=== PATIENT | female | born 1975 | race Caucasian/White ===

== ENCOUNTER 2023-02-15 08:49 | Outpatient (RCR) | payer OTHER, SELFPAY | END 2023-02-24 10:19 | disposition home or self-care (01) | LOC: PT 08:49 | DX: R20.2 Paresthesia of skin (principal); M54.2 Cervicalgia | CPT/HCPCS: 97010; 97014; 97032; 97110; 97140; G0283 ==

== ENCOUNTER 2023-02-26 14:01 | Outpatient (OUT) | payer OTHER, SELFPAY ==
--- NOTE | 2023-02-26 14:36 | ECG_ITS ---
The [facility] Test Date: 2023-02-26 Pat Name: Katy Flores Department: Room: - Gender: Female Director Business Travel: : 1975 Requested By: FERNANDA CONCEPCION Order Number: [id number] Reading MD: EMILY MAY Measurements Intervals [place] Rate: 84 P: 75 DC: 139 QRS: 84 QRSD: 90 T: 63 QT: 365 QTc: 432 Interpretive Statements SINUS RHYTHM No previous ECG available for comparison Electronically Signed On 02-27-2023 6:32:54 EDT by EMILY MAY
--- NOTE | 2023-02-26 14:48 | XR_ITS ---
The [place] [id number] Patient Name: MARKO BANUELOS MRN: [id number] date: 1975 Sex: F Assigned Patient Location: CARD Current Patient Location: CARD Accession/Order Number: [id number] Exam Date: 02/26/2023 14:58 Report Date: 02/26/2023 15:20 At the request of: FERNANDA CONCEPCION Procedure: XR chest 2V EXAM: XR chest 2V HISTORY: Chest pain, and the right axillary pain for the past one and half weeks radiating distally. COMPARISON: 09/28/2022 TECHNIQUE: Upright PA and lateral chest x-ray FINDINGS: The heart is not enlarged and the vasculature is not distended. No acute infiltrate, effusion or pneumothorax is identified. Slight flattening of the hemidiaphragms suggest COPD. The osseous structures are grossly intact. IMPRESSION: No acute infiltrate or evidence of cardiac decompensation. The overall appearance of the chest has not changed significantly. Electronically authenticated by: GIGI SARMIENTO Date: 02/26/2023 15:20
== END 2023-02-26 14:02 ==
LOC: CARD 14:02
PROVIDERS: PCP Family Medicine; Visit Provider Family Medicine
DX: R07.9 Chest pain, unspecified (principal)
CPT/HCPCS: 71046; 93005

== ENCOUNTER 2023-12-19 09:47 | Outpatient (OUT) | payer OTHER, SELFPAY ==
--- NOTE | 2023-12-19 | XR_ITS ---
The [address] [address] Patient Name: MARKO BANUELOS MRN: [id number] date: 1975 Sex: F Assigned Patient Location: Current Patient Location: Accession/Order Number: [id number] Exam Date: 12/19/2023 09:50 Report Date: 12/20/2023 06:55 At the request of: WANDA ANDERSON Procedure: XR foot RT min 3V PROCEDURE: XR foot RT min 3V HISTORY: RIGHT HEEL PAIN COMPARISON: XR foot bilateral 12/14/2022 FINDINGS: BONES:No fracture, acute abnormality, or significant arthropathy. SOFT TISSUES:No visible soft tissue swelling. EFFUSION:None visible. OTHER: Negative. XR/XR foot RT min 3V IMPRESSION: 1. No suspicious findings to account for patient's symptoms. Electronically authenticated by: LOBO OHARA Date: 12/20/2023 06:55
== END 2023-12-19 09:48 | disposition home or self-care (01) ==
LOC: EC 09:47
PROVIDERS: PCP Family Medicine; Visit Provider Podiatrist Foot & Ankle Surgery
DX: M79.671 Pain in right foot (principal)
CPT/HCPCS: 73630

== ENCOUNTER 2023-12-20 14:56 | Emergency (ER) | payer OTHER, SELFPAY ==
[2023-12-20 15:22] VITALS: BP 154/78; PULSE 89; TEMP 36.8; O2SAT 99; BMI 18.9
--- NOTE | 2023-12-20 15:59 | CT_ITS ---
The [address] [address] Patient Name: MARKO BANUELOS MRN: [id number] date: 1975 Sex: F Assigned Patient Location: ER Current Patient Location: Accession/Order Number: [id number] Exam Date: 12/20/2023 16:20 Report Date: 12/20/2023 16:58 At the request of: ANI TRAN Procedure: CT facial bones w con EXAM: CT facial bones w con TECHNIQUE: Axial CT images were obtained through the facial bones following intravenous contrast administration. Sagittal and coronal reformatted images were obtained. Dose reduction techniques were achieved by using automated exposure control and/or adjustment of mA and/or kV according to patient size and/or use of iterative reconstruction technique. HISTORY: left maxillary pain COMPARISON: None. FINDINGS: Fracture: None Orbits: Globes are intact. Extraocular musculature is unremarkable and symmetric. There is no retrobulbar inflammation or abscess. Soft tissues: unremarkable. Sinuses: Clear. CT/CT facial bones w con IMPRESSION: No acute findings. No significant soft tissue inflammation. No evidence for abscess. Electronically authenticated by: KARINA VÁZQUEZ Date: 12/20/2023 16:58
--- NOTE | 2023-12-20 15:59 | ED_ITS ---
HPI HPI - General Adult General Chief complaint: Eye Problems Stated complaint: poss infection eye area Time Seen by Provider: 12/20/23 15:52 Source: patient Mode of arrival: walk-in Limitations: no limitations History of Present Illness HPI narrative: Patient is a 48-year-old female who presents to the emergency department for left-sided facial pain for the last 3 days. She had oral surgery for a revision of her root canal a [facility] 2 weeks ago. She followed up with her doctor 3 days ago and was found to have an abscess of the left mandible which is currently being treated with amoxicillin 3 times daily. She states she has had an increase in Left maxillary sinus pain and eye pain. She has had no fevers, drainage, visual loss. She saw her eye doctor today who is confident that the issue is not due to her eye but discussed the case with her PCP and they agreed that the patient should have a CT of the sinuses and referred her to the emergency department. She has had no vomiting, injuries. She states she feels as though the face is swollen. Related Data Home Medications ?Medication ?Instructions ?Recorded ?Confirmed acyclovir 400 mg tablet mg 12/20/23 amoxicillin 500 mg capsule 500 mg PO Q8H 12/20/23 12/20/23 omeprazole 20 mg capsule,delayed 20 mg PO QDAY 12/20/23 12/20/23 release Previous Rx's ?Medication ?Instructions ?Recorded ketorolac 10 mg tablet 10 mg PO TID PRN pain #10 tabs 12/20/23 Allergies Allergy/AdvReac Type Severity Reaction Status Date / Time No Known Drug Allergies Allergy Verified 12/20/23 15:21 Opioid HPI Opioid Management Most Recent Opioid Data: No Data to Display Review of Systems ROS Constitutional Denies: fever or chills Eyes Denies: change in vision Ears, nose, mouth, and throat Denies: throat pain or nasal congestion Respiratory Denies: shortness of breath or cough Gastrointestinal Denies: nausea or vomiting Genitourinary Denies: painful urination Musculoskeletal Denies: back pain Integumentary/Breast Denies: rash Neurological Denies: headache Hematologic/Lymphatic Denies: easy bruising or easy bleeding Exam Narrative Exam Narrative: Gen.: Awake, alert, in no distress Head: Normocephalic, atraumatic; Normal extraocular muscle motion, No periorbital edema or erythema ENT: Moist mucous membranes, Bilateral TMs are clear, no facial swelling appreciated. Tenderness of the left mandible without swelling, no redness under the tongue. Airway widely open and patent. No trismus or drooling. Respiratory: No respiratory distress Extremities: Moves extremities equally Psych: Normal mood and affect Neuro: No focal neuro deficit Skin: Warm, dry, intact Constitutional Vital Signs, click to edit/add: Last Vital Signs Temp 98.2 F 12/20/23 15:22 Pulse 89 12/20/23 15:22 Resp 14 12/20/23 15:22 BP 154/78 H 12/20/23 15:22 Pulse Ox 99 12/20/23 15:22 O2 Del Method Room Air 12/20/23 15:22 Course Vital Signs Vital signs: Vital Signs Temperature 98.2 F 12/20/23 15:22 Pulse Rate 89 12/20/23 15:22 Respiratory Rate 14 12/20/23 15:22 Blood Pressure 154/78 H 12/20/23 15:22 Pulse Oximetry 99 12/20/23 15:22 Oxygen Delivery Method Room Air 12/20/23 15:22 Temperature 98.2 F 12/20/23 15:22 Pulse Rate 89 12/20/23 15:22 Respiratory Rate 14 12/20/23 15:22 Blood Pressure 154/78 H 12/20/23 15:22 Pulse Oximetry 99 12/20/23 15:22 Oxygen Delivery Method Room Air 12/20/23 15:22 Medical Decision Making MDM Narrative Medical decision making narrative: CT of the facial bones with contrast reviewed by the radiologist with no evidence of acute process. Patient was given a copy of these results. She is given a short course of anti-inflammatories and encouraged to finish the antibiotic she was prescribed earlier this week. Follow-up with PCP and return to the ER if symptoms change or worsen Medical Records Medical records reviewed: Yes I reviewed the patient's medical records Imaging Data CT scan - head: Attestation: I have reviewed the pertinent imaging results. Radiologist's impression: ITS Impressions Facial Bones CT 12/20/23 15:59 IMPRESSION: No acute findings. No significant soft tissue inflammation. No evidence for abscess. Electronically authenticated by: KARINA VÁZQUEZ Date: 12/20/2023 16:58 Discharge Plan Discharge Stand Alone Forms: Portal Instructions Chief Complaint: Eye Problems Clinical Impression: Atypical face pain Patient Disposition: Home, Self-Care Time of Disposition Decision: 17:07 Condition: Good Prescriptions / Home Meds: New ketorolac 10 mg tablet 10 mg PO TID PRN (Reason: pain) Qty: 10 0RF No Action acyclovir 400 mg tablet omeprazole 20 mg capsule,delayed release(DR/EC) 20 mg PO QDAY amoxicillin 500 mg capsule 500 mg PO Q8H Print Language: German Instructions: Atypical Facial Pain (ED) Referrals: Leanne Stanford MD [Primary Care Provider] - As soon as possible
--- NOTE | 2023-12-20 16:12 | PC.NURSE ---
pt had dental surgery 1 week ago -- dx with dental infection, prescribed ATBs. Having L eye pain
== END 2023-12-20 17:18 | disposition home or self-care (01) ==
PROVIDERS: Emergency Provider Emergency Medicine Emergency Medical Services; PCP Family Medicine
DX: G50.1 Atypical facial pain (principal); Z98.890 Other specified postprocedural states; M27.2 Inflammatory conditions of jaws
CPT/HCPCS: 70487; 99284; Q9966

== ENCOUNTER 2024-01-23 13:39 | Emergency (ER) | payer OTHER, SELFPAY ==
[2024-01-23 13:53] VITALS: BP 122/86; PULSE 84; TEMP 36.7; O2SAT 100; BMI 19.0
--- NOTE | 2024-01-23 14:58 | ED.GENADUL1 ---
HPI HPI - General Adult General Chief complaint: Dental/Oral Stated complaint: FACIAL PAIN Time Seen by Provider: 01/23/24 14:53 Source: patient Mode of arrival: walk-in Limitations: no limitations History of Present Illness HPI narrative: Patient presents ED complaining of left upper dental pain. She had a root canal done a couple of weeks ago and was doing well however the past couple of days she developed increasing pain. She is not on an antibiotic at this time. She feels like there is a bulge at the top of her molar and it is very tender. Is causing facial pain. No drooling no trismus no fevers. Related Data Home Medications ?Medication ?Instructions ?Recorded ?Confirmed acyclovir 400 mg tablet mg 12/20/23 amoxicillin 500 mg capsule 500 mg PO Q8H 12/20/23 12/20/23 omeprazole 20 mg capsule,delayed 20 mg PO QDAY 12/20/23 12/20/23 release Previous Rx's ?Medication ?Instructions ?Recorded ketorolac 10 mg tablet 10 mg PO TID PRN pain #10 tabs 12/20/23 oxycodone-acetaminophen 5 mg-325 1 tab PO Q6H #10 tabs 01/23/24 mg tablet (Percocet) penicillin V potassium 500 mg 500 mg PO Q6H 10 days #40 tabs 01/23/24 tablet Allergies Allergy/AdvReac Type Severity Reaction Status Date / Time No Known Drug Allergies Allergy Verified 12/20/23 15:21 Opioid HPI Opioid Management Most Recent Opioid Data: No Data to Display Review of Systems ROS Status of ROS 10 or more systems reviewed and unremarkable except as noted in history and below Exam Narrative Exam Narrative: General: alert, no acute distress Cardiovascular: regular rate and rhythm, normal peripheral perfusion. Respiratory: Lungs CTA, respirations non labored. Extremities: no deformity, no trauma. Neurological: oriented x 4, LOC appropriate for age. Tenderness to palpation above the left upper molars with mild swelling and redness to the gum. No trismus no drooling no tongue elevation Constitutional Vital Signs, click to edit/add: Last Vital Signs Temp 98.1 F 01/23/24 13:53 Pulse 84 01/23/24 13:53 Resp 20 01/23/24 13:53 BP 122/86 01/23/24 13:53 Pulse Ox 100 01/23/24 13:53 O2 Del Method Room Air 01/23/24 13:53 Course Vital Signs Vital signs: Vital Signs Temperature 98.1 F 01/23/24 13:53 Pulse Rate 84 01/23/24 13:53 Respiratory Rate 20 01/23/24 13:53 Blood Pressure 122/86 01/23/24 13:53 Pulse Oximetry 100 01/23/24 13:53 Oxygen Delivery Method Room Air 01/23/24 13:53 Temperature 98.1 F 01/23/24 13:53 Pulse Rate 84 01/23/24 13:53 Respiratory Rate 20 01/23/24 13:53 Blood Pressure 122/86 01/23/24 13:53 Pulse Oximetry 100 01/23/24 13:53 Oxygen Delivery Method Room Air 01/23/24 13:53 Medical Decision Making MDM Narrative Medical decision making narrative: Patient will be started on antibiotics For gum swelling with pain. Patient was given topical numbing here in ED for the pain. She drove herself here so I will send a prescription to her pharmacy for pain. Continue to follow-up with your dentist. Return to ED if anything worsens. Patient expressed understanding of care plan for home Differential Diagnosis Differential Diagnosis: Dental abscess, dental caries, Medical Records Medical records reviewed: Yes I reviewed the patient's medical records Discharge Plan Discharge Stand Alone Forms: Portal Instructions Chief Complaint: Dental/Oral Clinical Impression: Toothache, Dental abscess Patient Disposition: Home, Self-Care Time of Disposition Decision: 15:01 Mode of Transportation: Private Vehicle Prescriptions / Home Meds: New penicillin V potassium 500 mg tablet 500 mg PO Q6H 10 Days Qty: 40 0RF oxycodone-acetaminophen [Percocet] 5-325 mg tablet 1 tab PO Q6H Qty: 10 0RF No Action acyclovir 400 mg tablet omeprazole 20 mg capsule,delayed release(DR/EC) 20 mg PO QDAY amoxicillin 500 mg capsule 500 mg PO Q8H ketorolac 10 mg tablet 10 mg PO TID PRN (Reason: pain) Qty: 10 0RF Print Language: Kittitian Instructions: Dental Abscess (ED), Toothache (ED) Referrals: Leanne Stanford MD [Primary Care Provider] - 1 week
[2024-01-23] MEDS: BENZOCAINE 30 ML, lidocaine HCL 15 ML MM (15:35)
[2024-01-23 15:39] VITALS: PULSE 83; O2SAT 99
== END 2024-01-23 15:40 | disposition home or self-care (01) ==
PROVIDERS: Emergency Provider Emergency Medicine; PCP Family Medicine
DX: K04.7 Periapical abscess without sinus (principal); K08.89 Other specified disorders of teeth and supporting structures; Z79.899 Other long term (current) drug therapy
CPT/HCPCS: 99283

== ENCOUNTER 2024-11-10 10:45 | Outpatient (OUT) | payer OTHER, SELFPAY ==
[2024-11-10 14:26] LABS: Free T4 0.92 ng/dL (0.76-1.46)
[2024-11-11 15:08] LABS: Thyroglobulin Antibody <1.0 IU/mL (0.0-0.9); Thyroid Peroxidase (TPO) Ab 10 IU/mL (0-34)
== END 2024-11-10 10:46 | disposition home or self-care (01) ==
LOC: LAB 10:55
PROVIDERS: PCP Family Medicine; Visit Provider Family Medicine
DX: Q15.9 Congenital malformation of eye, unspecified (principal)
CPT/HCPCS: 36415; 84439; 84443; 86041; 86042; 86376; 86800

== ENCOUNTER 2025-03-10 10:49 | Outpatient (OUT) | payer OTHER, SELFPAY ==
--- OUTSIDE RECORDS SUMMARY | 2015-02-09 09:26 | XMS_ITS | Continuity of Care Document ---
Author Organization [facility] Address [address] [place] [address] Phone Care Team Providers Care District Administrator Name Role Phone Rubén Janell FLYNN Unavailable [...] Diagnoses Date Provider Providers Copied on Encounter [facility], [address] [place], [place], [id number] , [place] tel: [phone] [facility] No Information 5 [facility] Janell. [address] [place] [address], [id number] , [place]. tel: [phone] OFFICE/OUTPA TIENT VISIT, [facility], [address], [place], [id number] , [place] tel: [phone] [facility] annual visit (chief complaint) control-OC P (chief complaint) Medication Refill (chief complaint) Gynecological ExaminationOther specified contraceptive managementGenital herpes, unspecified 4 [facility] Janell. [address], [place], [id number] , [place]. tel: [phone] OFFICE/OUTPA TIENT VISIT, [facility], [address] [place] [address], [id number] , [place] tel: [phone] [facility] supply visit/ pills (chief complaint) Surveillance of other contraceptive methodOther specified contraceptive managementGeneral counseling on prescription of oral contraceptives 3 Alpesh Taveras. [address] [place] [address], [id number], [place]. tel: [phone] OFFICE/OUTPA TIENT VISIT, [facility], [address] [place] [address], [id number] , [place] tel: [phone] [facility] update (chief complaint) Gynecological ExaminationSurveillan ce of contraceptive pill 3 Jeanne Foster. [address] [place] [address], [id number] , [place]. tel: [phone] OFFICE/OUTPA TIENT VISIT, [facility], [address] [place] [address], [id number] , [place] tel: [phone] [facility] No Information 2 Jeanne Foster. [address] [place], [place], [id number] , [place]. tel: [phone] PREV VISIT, NEW, AGE 18-39 [facility], [address] [place], [place], [id number] , [place] tel: [phone] [facility] No Information 2 Jeanne Foster. [address], [place], [id number] , [place]. tel: [phone] Family History Family Member Type Diagnosis Age At Onset Father Problem (finding) Alive and well Father Problem (finding) stroke Mother Problem (finding) Alive and well Father Problem (finding) alzheimer's disease Father Problem (finding) malignant neoplasm of u [facility] bladder Father Problem (finding) hypertension Problem (finding) Family history of Heart disease Father Problem (finding) prostate cancer Father Problem (finding) diabetes melli tus in first degree relative Problem (finding) Payers Payer name Insurance type Covered republican ID Authoriza tion(s) No Information Social History [...]
--- OUTSIDE RECORDS SUMMARY | 2025-02-25 04:36 | XMS_ITS | Continuity of Care Document ---
Author Organization [facility] Address [address] [place] [address] Phone Care Team Providers Care Physician Support Coordinator Name Role Phone Leanne Stanford MD Primary Care Provider Marta Hernandez DO Attending Provider Care Teams Patient Care Team Team Status: Active Member Role Status Dates Leanne Stanford MD Primary Care Provider Active Visit Care Team Team Status: Inactive Member Role Status Dates Leanne Stanford MD Primary Care Provide r, Attending Provider Active Start: December 11, 2024 End: December 11, 2024 Visit Care Team Team Status: Inactive Member Role Status Dates Leanne Stanford MD Primary Care Provider Active Start: December 26, 2024 End: December 26, 2024 Destiny Rodriguez MD Attending Provider Active Start: December 26, 2024 End: December 26, 2024 Visit Care Team Team Status: Inactive Member Role Status Dates Leanne Stanford MD Primary Care Provider Active Start: January 27, 2025 End: January 27, 2025 Marta David , DO Attending Provider Active Sta rt: January 27, 2025 End: January 27, 2025 Visit Care Team Team Status: Inactive Member Role Status Dates Leanne Stanford MD Primary Care Provider Active Start: February 06, 2025 End: February 06, 2025 JIL aMry Attending Provider Active Start: February 06, 2025 End: February 06, 2025 Stevan Esteves MD Referring Provider Active St art: February 06, 2025 Patient Care Team Team Status: Inactive Member Role Status Dates Leanne Stanford MD Primary Care Provide r, Referring Provider Active Start: February 25, 2025 End: February 25, 2025 Tad Zapata MD Attending Provider Active Sta rt: February 25, 2025 End: February 25, 2025 Chief Complaint and Reason for Visit Chief Complaint Admit Date refills December 11, 2024 10: 01am 6 WEEKS December 26, 2024 9:4 0am J44.9 January 27, 2025 11:48 am Follow Up 6 Months February 06, 2025 8:56a m Pain in thoracic spine-OTHER CHRONIC BRANDO N February 25, 2025 7:59am Reason for Visit Admit Date Back pain, thoracic December 11, 2024 10: 01am Eye abnormalities December 11, 2024 10: 01am Insomnia, persistent December 11, 2024 10 :01am Menopausal flushing December 11, 2024 10: 01am TMJ (dislocation of temporomandibular tsering int) December 11, 2024 10:01am Arthritis of carpometacarpal (CMC) joint of right thumb December 26, 2024 9:40am Arthritis of right hand December 26, 2024 9:40am De Quervain's tenosynovitis, right December 26, 2024 9:40am Right wrist pain December 26, 2024 9:4 0am Toe pain, left December 26, 2024 9:4 0am Blood donor February 06, 2025 8:56a m History of menorrhagia February 06, 2025 8: 56am Iron deficiency anemia February 06, 2025 8: 56am Back pain, thoracic February 25, 2025 7:59 am Chronic pain February 25, 2025 7:59 am Myalgia Analy 11th, 2025 7:59 am Allergies, Adverse Reactions, Alerts No known allergies Social History Smoking Status Status Start Date End Date Date of Observa tion Smoker (finding) August 10:00am Observation Status Observation Response Date of Response Patient Sex Female February 25, 2025 8:36am Assigned Sex Female January 25 Family History Relationship Condition Age at Onset Recorded Date/T lisa father Malignant neoplasm of prostate Unknown Hypertension Unknown Cerebrovascular accident (CVA) Unknown Malignant neoplasm of urinary bladder Unk nown Unknown grandparent Leukemia Unknown Problems Active Problems Medical Problem Onset Date Status Right hand pain Active Toe pain, left Active De Quervain's tenosynovitis, right Active Acute maxillary sinusitis, unspecified July 19, 2018 Active Myalgia Active Eye pain Active Chronic pain Active Adult celiac disease Active Blood donor Active Anxiety Active Raynauds disease Active Wellness examination Active Restless leg syndrome Active Bloating Active TMJ (dislocation of temporomandibular joint) Active Iron deficiency anemia Active History of menorrhagia Active Right wrist pain Active Eye abnormalities Active Back pain, thoracic Active Abdominal pain Active Arthritis of carpometacarpal (CMC) joint of righ t thumb Active Insomnia, persistent Active Arthritis of right hand Active Injury of thumb, right Active Menopausal flushing Active Iron deficiency Active Medications Medication Status Dose Units Route Directions Qty Days St art Date Stop Date End Date Instructions Tramadol 50 mg tablet Discont inued 50 MG PO Three times daily as needed for pain 90 30 November 16, 2023 3:29pm January 10, 2024 2:11p m Alprazolam 1 mg tablet Discont inued 1 MG PO Daily at bedtime as needed for sleep January 07, 2024 4:35pm February 20, 2024 8:33a m teepee splint right thumb Discont inued 0 .Route .MEDSUPPLY January 08, 2024 4:12pm January 10, 2024 2:21p m As directed Doxycycline Hyclate 100 mg tablet Discont inued 100 MG PO Twice daily February 08, 2024 12:00a m February 19, 2024 10:15 am Alprazolam 1 mg tablet Discont inued 1 MG PO Daily at bedtime as needed for sleep February 20, 2024 8:33am March 19, 2024 12:19 pm Omeprazole 40 mg capsule,remigio yed release(DR/E C) Active 40 MG PO Once 30 March 07, 2024 12:00a m Alprazolam 1 mg tablet Discont inued 1 MG PO Daily at bedtime as needed for sleep 30 March 19, 2024 12:19p m April 01, 2024 9:16a m Tramadol 50 mg tablet Discont inued 50 MG PO Three times daily as needed for pain 90 March 21, 2024 3:49pm Decem star 2023 2:19p m Alprazolam 1 mg tablet Discont inued 1 MG PO Twice daily as needed for sleep 40 May 16, 2024 9:54pm Octob er 2023 8:34a m Alprazolam 1 mg tablet Discont inued 1 MG PO Twice daily as needed for sleep 40 Octobe r 2023 8:34am Novem star 2023 6:52a m Alprazolam 1 mg tablet Discont inued 1 MG PO Twice daily as needed for anxiety 40 30 [facility] 2023 11:06p m [facility] 2024 11:10 am Ibuprofen 800 mg tablet Active 0 .ROUTE .COMPLEX 90 [facility] er 2023 9:10am TAKE 1 TABLET BY MOUTH EVERY 8 HOURS NEEDED FOR PAIN Tramadol 50 mg tablet Discont inued 50 MG PO Twice daily as needed for pain 60 30 [facility] er 2023 2:19pm [facility] 2024 3:10p m Alprazolam 1 mg tablet Discont inued 1 MG PO Twice daily as needed for anxiety 40 Sepuar y 2024 11:10a m [facility] 2024 9:54a m Prazosin 5 mg capsule Discont inued 0 .ROUTE .COMPLEX 30 Sepuar y 2024 1:11pm December 11, 2024 10:08 am TAKE 1 CAPSULE BY MOUTH IN THE EVENING Alprazolam 1 mg tablet Discont inued 1 MG PO Twice daily as needed for anxiety [address] [facility] 9:54[facility] November 20, 2024 2:01p m Tramadol 50 mg tablet Discont inued 50 MG PO Twice daily as needed for pain [address] [facility] 3:10[facility] November 26, 2024 12:34 pm Alprazolam 1 mg tablet Discont inued 1 MG PO Twice daily as needed for anxiety 40 November 20, 2024 2:00pm December 11, 2024 11:04 am Tramadol 50 mg tablet Discont inued 50 MG PO Twice daily as needed for pain 14 7 November 26, 2024 12:33p m December 11, 2024 11:04 am Tramadol 50 mg tablet Discont inued 50 MG PO Twice daily as needed for pain 50 January 20, 2025 2:24pm February 23, 2025 10:03 am Alprazolam 1 mg tablet Discont inued 1 MG PO Twice daily as needed for anxiety 40 January 20, 2025 2:24pm February 23, 2025 10:03 am Alprazolam 1 mg tablet Discont inued 1 MG PO Twice daily as needed for anxiety 40 February 23, 2025 10:03a m February 23, 2025 10:04 am Tramadol 50 mg tablet Active 50 MG PO Twice daily as needed for pain 50 February 23, 2025 10:03a m Alprazolam 1 mg tablet Active 1 MG PO Twice daily as needed for anxiety 40 February 23, 2025 10:03a m Multivitamin (Multiple Vitamin) Tablet Discont inued 1 TAB PO Daily Octobe r 2021 12:00a m December 10, 2023 10:28 am Folic Acid 1 mg Tablet Active 1 MG PO Daily Octobe r 2021 12:00a m Polysacchari de Iron Complex (Pro Fe) 180 mg iron Capsule Discont inued 180 MG PO Daily Octobe r 2021 12:00a m Sepua ry 2022 12:27 pm Benzonatate 100 mg Capsule Discont inued 100 MG PO Three times daily Novemb er 2021 12:00a m December 10, 2023 10:38 am Cholecalcife rol (Vitamin D3) (Vitamin D3) 25 mcg (1,000 unit) Capsule Active 25 MCG PO Daily Novemb er 2021 12:00a m Vitamin N29-Mxaoi Acid 0.5-1 mg Tablet Active 1 TAB PO Daily Novemb er 2021 12:00a m Polysacchari de Iron Complex (Pro Fe) 180 mg iron Capsule Active 180 MG PO Daily y 2022 1:00am Norgestimate -Ethinyl Estradiol (Sprintec (28)) 0.25-35 mg-mcg tablet Discont inued 1 TAB PO As Directed April 04, 2019 12:00a m 2021 10:48 am Cetirizine 10 mg tablet Discont inued 10 MG PO Daily April 04, 2019 12:00a m December 10, 2023 10:27 am Alprazolam 1 mg tablet Discont inued 1 MG PO Bedtime April 04, 2019 12:00a m December 10, 2023 1:03p m Acyclovir 200 mg capsule Discont inued 200 MG PO Daily April 04, 2019 12:00a m January 10, 2024 2:12p m Tramadol 50 mg tablet Discont inued 50 MG PO Daily April 04, 2019 12:00a m 2021 10:49 am Omeprazole 20 mg capsule,remigio yed release(DR/E C) Discont inued 20 MG PO Daily April 04, 2019 12:00a m March 07, 2024 8:18a m Ibuprofen 800 mg tablet Discont inued 800 MG PO Q6H as needed for pain 30 April 04, 2019 12:00a m December 10, 2023 1:03p m Oxycodone-Ac etaminophen (Percocet) 5-325 mg tablet Discont inued 1 TAB PO EVERY 4-6 HOURS as needed for pain 12 3 April 04, 20192021 10:48 am Cephalexin 500 mg capsule Discont inued 500 MG PO Q8H 21 7 April 04, 2019 12:00a m Octob er 2021 2:49p m Fluconazole (Diflucan) 150 mg tablet Discont inued 150 MG PO Daily 1 April 04, 2019 3:15pm 2021 10:48 am administer on day 1 of therapy Metoprolol Succinate 25 mg tablet extended release 24 hr Discont inued MG PO January 10, 2024 12:00a m February 19, 2024 10:15 am Tiotropium Simpson (Spiriva Respimat) 2.5 mcg/actuatio n mist Discont inued 2 PUFF INHALA TION Daily January 10, 2024 12:00a m Octob er 2023 9:03a m tiotropium bromide Discont inued INHALA TION Daily December 25, 2023 12:00a m January 10, 2024 2:21p m vitamin E (dl, acetate) Discont inued 1 TAB PO Daily December 25, 2023 12:00a m Novem star 2023 11:33 am Diclofenac Sodium (Voltaren Arthritis Pain) 1 % gel Active 0 TOPICA L Twice daily 100 30 December 04, 2023 12:00a m 1-2 grams topically twice daily Prednisone 5 mg tablet Discont inued 5 MG PO As Directed 19 December 04, 2023 12:00a m December 10, 2023 10:28 am Take 4 pills by mouth x2 days, take 3 pills by mouth x2 days, take 2 pills by mouth x2 days, take 1 pill by mouth x1 day. Acyclovir 400 mg tablet Active 400 MG PO March 18, 2024 12:00a m teepee splint- right thumb Discont inued 0 .Route .MEDSUPPLY 1 March 18, 2024 8:41am Decem star 2023 11:16 am As directed. Please specialty order. Meloxicam 15 mg tablet Discont inued 15 MG PO Daily May 13, 2024 12:00a m Augus t 2023 8:36a m Meloxicam 15 mg tablet Discont inued 15 MG PO Daily May 13, 2024 12:00a m Octob er 2023 8:14a m Ibuprofen 800 mg tablet Discont inued 800 MG PO Every 8 hours as needed for pain 90 Octobe r 2023 12:00a m Decem star 2023 9:10a m Tramadol 50 mg tablet Discont inued 50 MG PO Three times daily as needed March 21, 2024 12:00a m March 21, 2024 3:51p m Alprazolam 1 mg tablet Discont inued 1 MG PO Twice daily as needed for sleep 40 30 April 01, 2024 9:13am Augus t 2023 9:55p m Tramadol 50 mg tablet Discont inued 50 MG PO Three times daily November 16, 2023 1:00am November 16, 2023 3:31p m teepee splint right thumb Discont inued 0 .Route .MEDSUPPLY 1 January 08, 2024 12:00a m January 08, 2024 4:12p m As directed Ibuprofen 800 mg tablet Discont inued 800 MG PO Daily as needed for pain December 10, 2023 1:00pm April 01, 2024 8:45a m Alprazolam 1 mg tablet Discont inued 1 MG PO Bedtime December 10, 2023 1:01pm January 07, 2024 4:37p m teepee splint- right thumb Discont inued 0 .Route .MEDSUPPLY 1 February 12, 2024 12:00a m March 18, 2024 8:41a m As directed. Please specialty order. Amoxicillin- Pot Clavulanate 875-125 mg tablet Discont inued 1 TAB PO Twice daily 14 Junobe r 2023 12:00a m Novem star 2023 11:32 am Fluconazole 150 mg tablet Discont inued 150 MG PO Q3D Junobe r 2023 12:00a m Novem star 2023 11:33 am Alprazolam 1 mg tablet Discont inued 1 MG PO Twice daily as needed for anxiety 40 Novemb er 2023 6:52am Decem star 2023 11:07 pm Prazosin 5 mg capsule Discont inued 5 MG PO Every evening Novemb er 2023 12:00a m Novem star 2023 9:35a m Doxepin 3 mg tablet Discont inued 3 MG PO Daily at bedtime as needed for sleep Novemb er 2023 1:00am Novem star 2023 11:33 am Sertraline (Zoloft) 25 mg tablet Discont inued 25 MG PO Daily Novemb er 2023 1:00am Dece star 2023 11:14 am Pyridoxine (Vitamin B6) 10 mg tablet Discont inued 10 MG PO Daily Novemb er 2023 1:00am Dece star 2023 11:15 am Tiotropium Simpson (Spiriva With Handihaler) 18 mcg capsule, w/inhalation device Active 1 CAP INHALA TION Daily February 06, 2025 12:00a m puncture 1 cap using device; one dose = 2 inhalations Cetirizine (Zyrtec) 10 mg capsule Active 10 MG PO Daily as needed February 06, 2025 12:00a m Pyridoxine (Vitamin B6) 25 mg tablet Active 25 MG PO Three times daily [facility] er 2023 1:00am Sertraline (Zoloft) 25 mg tablet Discont inued 25 MG PO Daily [facility] er 2023 1:00am December 11, 2024 10:08 am Azithromycin 250 mg tablet Discont inued 0 PO .COMPLEX 6 [facility] er 2023 1:00am December 11, 2024 10:06 am For 250 mg dose pack: take 500 mg today (day 1), then 250 mg for 4 days (days 2-5) PO Prazosin 5 mg capsule Discont inued 5 MG PO Every evening [facility] er 2023 11:19a m Janua ry 2024 1:12p m Prazosin 5 mg capsule Active 0 .ROUTE .COMPLEX as needed December 11, 2024 10:07a m TAKE 1 CAPSULE BY MOUTH IN THE EVENING PRN; Tramadol 50 mg tablet Discont inued 50 MG PO Twice daily as needed for pain 50 December 11, 2024 11:03a m January 20, 2025 2:25p m Alprazolam 1 mg tablet Discont inued 1 MG PO Twice daily as needed for anxiety 40 December 11, 2024 11:04a m January 20, 2025 2:25p m Gabapentin 100 mg capsule Active MG PO February 25, 2025 12:00a m Immunizations Immunization Event Date Not Given Reason Dose Number Motor Vehicle [employer]er Lot Number Vaccine Information Statement (VIS) Detail influenza, unspecified formulation May 16, 2021 influenza, unspecified formulation May 24, 2022 Tetanus, Diphtheria adult, 5 Lf pres free abs June 20, 2016 Medical Equipment Device Date Implanted Device Details Video capsule endoscopy system March 17, 2024 U DI: [id number] Issuing Agency: [id number] Device Id: [id number] Expiration Date: 2024-10-02 Lot Number: [id number] Serial Number: [id number] Procedures Procedure Date Performed Status XR chest 2V* January 27, 2025 12:01pm completed Relevant Diagnostic Tests and/or Laboratory Data Diagnostic Imaging Reports Author Freedom Mcmillan [facility] Authored January 27, 2025 2:32p m Report Dictated Date/Time Dictated By Status Radiology Report January 27, 2025 2:32pm Freedom romero Jr DO completed [facility] [place] [address] [place] [address] XRay Report Signed Patient: Katy Flores MR#: [id number] : 1975 Acct:[id number] Age/Sex: 50 / F ADM Date: 5 Loc: XDS Room: Type: [facility] Attending Dr: Marta Hernandez DO Copies to: Marta Hernandez DO~ Ordering Provider: Marta Hernandez DO Date of Service: 01/27/25 XR/XR chest 2V*: COPD, reticular changes on prior imaging Chest 2 views CLINICAL HISTORY: Shortness of breath. COPD. COMPARISON: None FINDINGS: Heart normal in size. Lungs are clear. No free air. XR/XR chest 2V* IMPRESSION: NO ACUTE CARDIOPULMONARY ABNORMALITY. Impression dictated by: Freedom Mcmillan Jr., D.O. 01/27/2025 2:32 PM Dictation Location: [place] [address] Transcribed By: [facility] 01/27/25 143 Dictated By: Freedom Mcmillan Jr, DO 01/27/25 1432 Signed By: <Electronically signed by Freedom Mcmillan Jr, DO in OV> 01/27/25 1432 Vital Signs Vital Reading Result Reference Range Collection Date/Time Height 66 [in_i] December 11 10:03am Weight 55.90 kg December 11 10:03am Heart Rate 85 /min 60-100 December 11 10:03am BP Systolic 117 mm[Hg] 100-140 December 11 10:03am BP Diastolic 74 mm[Hg] 60-100 December 11 10:03am BMI (Body Mass Index) 19.8 kg/m2 December 11, 2024 10:03am Height 66 [in_i] February 06, 2025 9:04am Weight 55.33 kg February 06, 2025 9:04am Body Temperature 97.8 [degF] 97.6-99.0 February 06, 2 025 9:04am Heart Rate 77 /min 60-100 February 06, 2025 9:04am Respiratory rate 16 /min 12-24 February 06, 2 025 9:04am Oxygen saturation by Pulse oximetry 98 % 95-100 February 06, 2025 9:04a m BP Systolic 117 mm[Hg] 100-140 February 06, 2025 9:04am BP Diastolic 77 mm[Hg] 60-100 February 06, 2025 9:04am BMI (Body Mass Index) 19.7 kg/m2 February 062024 9:04am Advance Directives Advance Directive Response Recorded Date/ Time Advance Directives No August 18, 2024 11:00am Insurance Providers Guarantor Katy Parker Mark Address [address] [place] [phone] Contact Info. Home Phone: Payer Policy Id Coverage Id Subscriber's Name Subscriber Id Effective Date Expiration Date [facility] [id number] Wu Murdock [id number] Encounters Encounter Location(s) Arrival/Admit Date Discharge/Depart Date Provider(s) Departed Physician/Prov ider Office Visit [facility] December 11, 2024 10:01am December 11, 2024 10:44am Leanne Stanford MD Departed Physician/Prov ider Office Visit [facility] December 26, 2024 9:40am December 26, 2024 9:53am Destiny Rodriguez MD Departed Clinical [facility] January 27, 2025 11:48am January 27, 2025 11:49am Marta Hernandez DO Departed Physician/Prov ider Office Visit [facility] February 06, 2025 8:56am February 06, 2025 9:45am JIL Mary Departed Physician/Prov ider Office Visit [facility] February 25, 2025 7:59am February 25, 2025 8:36am Jas Frausto MD Recent Diagnosis Onset Date Admit Date Back pain, thoracic December 11, 2024 10:01am Eye abnormalities December 11 10:01am Insomnia, persistent December 11, 2024 10:01am Menopausal flushing December 11, 2024 10:01am TMJ (dislocation of temporomandibular joint) December 11, 2024 10:01am Arthritis of carpometacarpal (CMC) joint of right thumb December 26, 2024 9:40am Arthritis of right hand December 262024 9:40am De Quervain's tenosynovitis, right December 26, 2024 9:40am Right wrist pain December 26 9:40am Toe pain, left December 26, 2024 9:40am Blood donor February 06, 2025 8 :56am History of menorrhagia February 06, 2025 8:56am Iron deficiency anemia February 06, 2025 8:56am Back pain, thoracic February 25, 025 7:59am Chronic pain February 25, 2025 7:59am Myalgia February 25, 2025 7:59am Assessments Diagnosis Onset Date Resolution Status Admit Date Back pain, thoracic acute December 11, 2024 10:01am Eye abnormalities acute November 162024 10:01am Insomnia, persistent acute Jhon 2024 10:01am Menopausal flushing acute December 11, 2024 10:01am TMJ (dislocation of temporomandibular joint) acute November 162024 10:01am Arthritis of carpometacarpal (CMC) joint of right thumb acute December 26, 2024 9:40am Arthritis of right hand acute A pril 2024 9:40am De Quervain's tenosynovitis, right a cute December 26, 2024 9:40am Right wrist pain acute December 262024 9:40am Toe pain, left acute December 9:40am Blood donor chronic February 06 8:56am History of menorrhagia chronic Ma y 2024 8:56am Iron deficiency anemia chronic Ma y 2024 8:56am Back pain, thoracic acute Analy 11th, 2025 7:59am Chronic pain acute February 25 025 7:59am Myalgia acute February 25 7:59am Plan of Treatment Author Destiny Rodriguez [facility] Authored December 27, 2024 4:1 7pm We discussed a repeat inject ion into the right thumb CMC joint, which we will proceed with today. Risks and benefits of the procedure fully explained to the patient and they voiced understanding. Patient was prepped and tolerated the injection well. Call with questions/concerns. Follow up in 3 months. Extensive discussion about current condition and treatment options available. We discussed that the patient may have a sprain/strain of the left small toe. We advised patient to shakeel tape the toes to help with pain. May use ice and rest. 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 At this time, I would recommend a course of nonoperative treatment/ continuance with nonoperative treatment including: Scheduled anti-inflammatory medication for control of arthritic flares, intra-articular corticosteroid injections as needed (no more frequently than 12 weeks apart), and supportive bracing during provocative activities (taping or brace). Patient was counseled that regular long-term use of anti-inflammatory medications may require further follow-up with patient's primary care physician for medical monitoring. - Trial of topical Voltaren gel - Trial of topical lidocaine patch - Trial compounded ointment - Scheduled NSAIDs ibuprofen - Patient encouraged to get CMC braces and wear for activities - OT referral for modalities - Trial of Medrol dose pack for reduction of pain and swelling was not particularly helpful previously - Trial of cortisone injection to thumb IP and MCP joints has been helpful previously - Trial of cortisone injection to thumb CMC joint has been helpful and patient desires repeat injection - Xrays reviewed previously with patient - Follow up in 3 motwas for reassessment and potential repeat injection INJECTION ADMINISTERED: - Patient was given an injection of the right thumb CMC joint with: 0.5 cc Kenalog (40 mg/ 1 cc concentration) + 0.5 cc 1% Lidocaine plain without epinephrine - This is the patient's fourth injection - Patient was counseled that there may be some swelling, inflammation, and mild pain in the area of injection for the first few days following treatment, which may be controlled with anti-inflammatory pain medication as needed. Patient was counseled that it may take time to note full resolution of pain and symptoms following the injection, and occasionally a series of injections is necessary for full or lasting relief of pain and symptoms. Patient was counseled that some individuals may experience skin hypopigmentation changes or fat atrophy in the area of steroid application following injection. Patient was counseled that if they are diabetic, there may be temporary changes in their blood sugar levels which may require more frequent blood sugar changes or temporary adjustment in their insulin coverage. - Patient was instructed to notify a physician if they note any concerning signs of infection including but not limited to fever, warmth, erythema, or ascending cellulitis in the area of steroid injection. Author Jeanette Jimenes [facility] Authored February 06, 2025 9:48a m 09/20/2022: This is a 47-year- old female who is most likely source of iron deficiency noted 2 months ago was her regular blood donation which she has done for many years. She does have a history of menorrhagia and underwent endometrial ablation about 2 years ago. She also had been taking regular iron supplementation but more recent oral iron supplement caused increased abdominal bloating and the patient was prescribed parenteral iron therapy. We discussed that her frequency of blood donation every 56 days is likely the source of her ongoing iron deficiency. If she does wish to continue elective blood donation I recommend changing to about once every 100 days and to continue oral iron supplement. She had better tolerance of Pro Fe 180 mg which she may take every other day to daily based on her tolerance. She does not have any other clear source of iron deficiency. Prior pathology from biopsy of GE junction and duodenum on 04/26/[address] Lara showed no evidence of villous atrophy or intestinal metaplasia suggestive of celiac disease. Based on symptoms and family history of celiac disease Dr. Apodaca sent antibody work-up showing no evidence of endomysial or gliadin antibody suggestive of celiac disease. In the absence of symptoms she should not require further follow-up. She can be referred back from primary care for parenteral iron on an as-needed basis if she is refractory to oral iron or no longer tolerates her Pro Fe. 08/04/2024: She reports that she has not stopped her oral iron, she reports intermittent diarrhea and constipation and relates this to the oral iron, but would like to continue supplementation. She reports increased fatigue, has to stay busy to complete daily responsibilities, felt better in the past after receiving parental iron. cbc, Iron profile, and ferritin today, assess need for parental iron. Avoid blood donation when fatigued. Education given on high iron enriched foods. F/U in 6 months with cbc, iron profile, and ferritin. Call if symptomatic in between appointments so that the same labs can be ordered. 02/08/2025 Continues with oral iron, b12, and folate. I suspect her fatigue may be secondary to inadequate total sleep time, insomnia, and menopausal changes with a possible component of worry. Discussed sleep hygiene and encouraged to discuss further with PCP and consider treatments for hot flashes. Due to her continued complaints, We can continue following her labs. Will add on a b12 and folate due to slight increase in MCV. I doubt significant deficiency due to her oral supplementation but will rule out.. 09/20/2022: The patient is a regular blood donor and will have supplemental oral iron and decrease frequency of blood donation given her recent iron deficiency. 08/04/2024: Blood donations scheduled every 56 days, informed to reduce donation when fatigued. 02/08/2025 She is not regularly giving blood anymore secondary to fatigue. Could medically continue giving blood less frequently than before but she is feeling very poorly and fatigued. Would recommend holding off blood donation until she has addressed fatigue with PCP. 09/20/2022; 08/04/2024: Prior history of menorrhagia but no recurrent symptoms since she underwent endometrial ablation by Dr. Esteves in March 2019. Author Leanne Stanford [facility] Authored December 15, 2024 2:[address] Zapata. PT r ecommended MRI last year, but insurance refused to cover it. May benefit from trigger point injection or similar pain mgmt modality. Alprazolam refilled. Patient requested slightly increased amount due to occasional anxiety causing insomnia. Patient understands this is a controlled substance. She will follow-up in 3 months. [place] was [place] at time of prescription. Controlled substance contract completed again today. discussed refill of prazosin and reduced use of alprazolam. pt on tramadol 1 daily. she understands this is a controlled substance. [place] reviewed. Signed CS contract again today. Last year had labs to rule out myasthenia gravis and MRI was ordered. MRI orbits was not completed. I called Dr. Briscoe. We had sent her results by fax and by post mail. She states she didn't receive them. 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 Reviewed notes we were able to pull from [facility] [place] after the visit. Carotid US was normal. He also ordered ESR and CRP. Followup w her return agent airport, Dr. Esteves. Author Leora Serrano [facility] Authored February 25, 2025 8:33 am We discussed treatment optio ns for the patient's persistent thoracic muscle pain. Patient shows notable muscle tenderness over the right trapezius, scapular and thoracic region on exam. She has failed multiple conservative measures and would be a reasonable candidate for right thoracic paraspinal trigger point injections which we will proceed with after we obtain approval from her insurance company. Risks and benefits of procedure explained to patient; patient verbalizes understanding. Patient provided with educational literature. We will inject the trapezius, scapular and thoracic muscles with one needle. We discussed with the patient we can repeat these injections every four months as needed. We will call the patient to schedule once we obtain the approval. In the meantime she was encouraged to continue with activity modification. Anatomy of spine discussed in detail with patient in regards to patients condition. Above note written by Leora Serrano LPN, Digital Asset Manager. Edited and approved by Dr. Tad Zapata MD Future Tests Future scheduled test information is unavailable Pending Tests Test Name Ordered Date Scheduled Date Comprehensive Metabolic Panel February 06, 2025 9:4 5am 6 Months Future Visits Future appointment information is unavailable Referrals to Other Providers Reason for Referral Referral Start Date Provider Provider Contact Information Provider Address M54.6 - Pain in thoracic spine,G89.29 - Other chronic pain December 11, 2024 Jas Frausto MD Work Phone: [facility] [employer] [facility] [id number] Future Procedures Procedure Name Ordered Date Scheduled Date Apply O2 via Nasal Cannula 4 L to Maintain SpO2 of >=90% August 04, 2024 3:03pm August 08, 2024 1:00am Apply O2 via Nasal Cannula 4 L to Maintain SpO2 of >=90% August 04, 2024 3:03pm August 12, 2024 1:00am Apply O2 via Nasal Cannula 4 L to Maintain SpO2 of >=90% August 04, 2024 3:03pm August 20, 2024 1:00am Orders Panel Function Communication Order August 19, 2024 3:34pm August 19, 2024 3:34pm Orders Panel Function Communication Order August 08, 2024 9:54am August 08, 2024 9:54am Orders Panel Function Communication Order August 12, 2024 2:43pm August 12, 2024 2:43pm Complete Blood Count Auto Diff February 06, 2025 9: 45am 6 Months Iron and TIBC Profile February 06, 2025 9:45am 6 Mo nths Ferritin February 06, 2025 9:45am 6 Months Reticulocyte Count February 06, 2025 9:45am 6 Month s Vit. B12/Folate Profile February 06, 2025 9:45am 6 Months Future Medications Future medication information is unavailable Patient Instructions Patient instructions are unavailable
--- OUTSIDE RECORDS SUMMARY | 2025-03-10 10:53 | XMS_ITS | Clinical Summary ---
Author Organization [facility] Address [address] [place] [address] Care Team Providers Care Actuarial Assistant Name Role Phone Leanne Stanford MD Primary Care Provider [phone] Allergies Active Allergy Reactions Criticality Noted Date Comments Cat Dander Unknown Low 06/14/2023 Dust Mite Extract Unknown Low 06/14/2023 Glycerin Unknown Low 06/14/2023 Molds & Smuts Other Low 06/14/2023 Medications ALPRAZolam (Xanax) 1 MG tablet Active ibuprofen 800 MG tablet 023 Active Restasis 0.05 % ophthalmic emulsion Administer 1 drop into both eyes in the morning and 1 drop before bedtime. 024 Active traMADol (Ultram) 50 MG tablet 024 Active iron polysaccharides (ProFe) 391.3 (180 Fe) MG capsuleIndications :Iron deficiency Take 1 capsule (391.3 mg) by mouth Daily 90 capsule 3 024 Active omeprazole (PriLOSEC) [address] capsule Take 40 mg by mouth Daily 024 Active valACYclovir (Valtrex) 500 MG tabletIndications: Chronic vulvitis Take 1 tablet (500 mg) by mouth twice daily for 3 days. Then daily 30 tablet 5 024 2024 Active sertraline (Zoloft) 25 MG tabletIndications: Mood swings Take 1 tablet (25 mg) by mouth Daily 90 tablet 3 024 Active Ciclopirox 1 % shampoo 025 Active prazosin (Minipress) 5 MG capsule 025 Active gabapentin (Neurontin) 100 MG capsuleIndications :Paresthesias Take one cap every 8 hours or all at bedtime 90 capsule 2 Active cetirizine (ZyrTEC) 10 MG tablet Take by mouth Active methylPREDNISolone (Medrol Dospak) 4 MG tabletsIndications :Muscle strain of left foot, initial encounter Follow schedule on package instructions 21 tablet Active tiotropium (Spiriva Respimat) 2.5 MCG/ACT inhalerIndications :Chronic obstructive pulmonary disease, unspecified COPD type (HCC) Inhale 2 puffs Daily 1 each 5 025 2025 Active albuterol HFA (ProAir HFA) 90 mcg/act inhalerIndications :Chronic obstructive pulmonary disease, unspecified COPD type (HCC) Inhale 2 puffs every 4 (four) hours if needed for wheezing 18 g 11 025 2025 Active Fluticasone-Umecli din-Vilant (Trelegy Ellipta) 100-62.5-25 MCG/ACT aerosol powderIndications: Chronic obstructive pulmonary disease, unspecified COPD type (HCC) Inhale 1 puff Daily 1 each 5 Active pyridoxine (Vitamin B-6) 25 MG tabletIndications: Mood swings TAKE 1 TABLET (25 MG) BY MOUTH EVERY 8 (EIGHT) HOURS 90 tablet 2 Active diphenhydrAMINE-ac etaminophen (Unisom PM Pain) 50-325 MG tabletIndications: Insomnia, unspecified type Take 1 tablet by mouth as needed at bedtime for sleep 14 tablet 3 024 2024 Discontinued pyridoxine (Vitamin B-6) 25 MG tabletIndications: Mood swings TAKE 1 TABLET (25 MG) BY MOUTH EVERY 8 (EIGHT) HOURS 90 tablet 2 025 2024 Discontinued estrogen, conjugated,-medrox yPROGESTERone (Prempro) 0.625-5 MG tabletIndications: Mood swings,Other fatigue,Vaginal atrophy Take 1 tablet by mouth Daily 90 tablet 3 025 2024 Discontinued valACYclovir (Valtrex) 500 MG tabletIndications: HSV (herpes simplex virus) infection Take 1 tablet (500 mg) by mouth Daily 30 tablet 5 025 2024 Discontinued Active Problems Problem Noted Date Diagnosed Date Other specified diseases of gallbladder 10/11/19 24 Right upper quadrant pain 10/11/2023 Chronic obstructive pulmonary disease 07/18/2023 Cigarette smoker 07/18/2023 Resolved Problems Problem Noted Date Diagnosed Date Resolved Date Mixed incontinence 06/30/2024 Abdominal pain 12/28/2023 12/28/2023 Adult celiac disease 12/28/2023 024 Arthritis of carpometacarpal (CMC) joint of right thumb 12/28/2023 12/28/2023 Contusion of right foot 12/28/202312/16 De Quervain's tenosynovitis, right 12/28/2023 12/28/2023 History of menorrhagia 12/28/202312/27 Iron deficiency anemia 12/28/202312/27 Insomnia, persistent 12/28/2023 024 Restless leg syndrome 12/28/20232023 Peroneal tendinitis, right leg 12/28/2023 12/28/2023 Right hand pain 12/28/2023 12/28/2023 Right wrist pain 12/28/2023 12/28/2023 Chronic allergic rhinitis 07/18/2023 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 07/18/2023 07/18/2023 Bipolar II disorder 07/18/2023 07/18/20 Chronic vaginitis 07/18/2023 07/18/2023 SANGITA I (cervical intraepithelial neoplasia I) 07/18/2023 Dysmenorrhea 07/18/2023 07/18/2023 Menorrhagia with irregular cycle 07/18/2023 07/18/2023 Mixed stress and urge incontinence 07/18/2023 07/18/2023 Genital herpes simplex 09/22/200907/18 Endometriosis of uterus 08/04/200909/2022 Encounters Date Type Department Care Team Description 02/26/2025 Abstract [facility] [address] [place] [address] Marta Hernandez DO 02/11/2025 Refill [facility] [address] [place] [address] Stevan Esteves MD Mood swings 02/10/2025 3:45 PM EDT Office Visit [facility] [address] [place] [phone] Marta Hernandez, Chronic obstructive pulmonary disease, unspecified COPD type (HCC) (Primary Dx); Cigarette smoker 02/10/2025 Bamboo flowsheet [facility] [address] [place] [phone] Marta Hernandez, 02/10/2025 Travel 02/02/2025 Telephone [facility] [place] [address] [place] [phone] Francoise Macias MA 01/16/2025 6:00 PM EDT Ancillary Procedure [facility] XRAY [address] [place] [address] 01/16/2025 5:30 PM EDT Office Visit [facility] [address] [place] [address] Samaria Pires, ANGELICA Pain and swelling of toe of left foot (Primary Dx); Muscle strain of left foot, initial encounter 01/16/2025 Telephone [facility] [address] [place] [address] Samaria Pires NP 01/16/2025 Travel 01/15/2025 Telephone [facility] [address] [place] [phone] Franocise Macias MA 01/13/2025 Results Follow-Up [facility] [address] [place] [address] Stevan Esteves MD 01/12/2025 9:15 AM EDT Office Visit [facility] [address] [place] [address] Stevan Esteves MD Encounter for gynecological examination without abnormal finding (Primary Dx); Encounter for screening for cervical cancer; Cysts of both ovaries; History of endometrial ablation; Amenorrhea; Asymptomatic menopausal state; Anemia, unspecified type; Other iron deficiency anemia; Abnormal TSH; Mood swings; Chronic vulvitis; HSV (herpes simplex virus) infection; Myoma 01/12/2025 Travel 01/06/2025 2:20 PM EDT Office Visit [facility] [place] [address] [address] Candice Palencia NP Paresthesias (Primary Dx); Joint disease, temporomandibular; Neck pain; Foot pain, bilateral; Abnormal MRI, cervical spine; Bilateral occipital neuralgia 01/06/2025 Bamboo flowsheet [facility] [place] [address] [phone] Candice Palencia NP 01/05/2025 8:30 AM EDT Ancillary Procedure [facility] [address] [facility] [address] [place] [address] Left ovarian cyst; Abnormal endometrial ultrasound 01/05/2025 Telephone [facility] [address] [facility] [address] [place] [address] Stevan Esteves MD 01/05/2025 Travel from Last 3 Months Immunizations Immunization Administration Dates Next Due Influenza, Unspecified 05/24/2022,2020,06/10/2019,2017,06/20/2016 Influenza, injectable, MDCK, preservative free, quadrivalent 05/24/2022,08/31/2018 Influenza, injectable, quadr ivalent, preservative free 05/16/2021,06/10/2019,08/01/2017,2015 Td (adult), 5 Lf tetanus tox oid, preservative free, adsorbed 06/20/2016 Tdap 04/20/2020 Family History Medical History Relation Name Comments Alzheimer's disease Father Diabetes Father Heart disease Father Hypertension Father Kidney failure Father Mental illness Father Other cancer Father bladder Prostate cancer Father Stroke Father Leukemia Maternal Grandmother Breast cancer Neg Hx Colon cancer Neg Hx Ovarian cancer Neg Hx Relation Name Status Comments Father Maternal Grandfather Maternal Grandmother Mother Alive Paternal Grandfather Paternal Grandmother Son Alive x2 Social History Tobacco Use Types Packs/Day Years Used Date Smoking Tobacco: Every Day Cigarettes 1 30 Smokeless Tobacco: Never Tobacco Cessation:Ready to Q uit: Yes; Counseling Given: Yes Alcohol Use Standard Drinks/Week Comments Never 0 (1 standard drink = 0.6 oz pure alcohol) caffeine intake: 2-3 cups per day of coffee, soda/pop PHQ-2 Answer Date Recorded Patient Health Questionnaire-2 Score 0 07/03/2024 Education Answer Date Recorded What is the highest level of school you have completed or the highest degree you have received? 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 Not on file Not on file Not on file Last Filed Vital Signs Vital Sign Reading Time Taken Comments Blood Pressure 110/64 02/10/2025 3:05 PM EDT Pulse 86 02/10/2025 3:05 PM EDT Temperature 36.7 C (98 F) 01/16/2025 5:36 PM EDT Respiratory Rate 18 10/08/2023 3:36 PM EST Oxygen Saturation 95% 02/10/2025 3:05 PM EDT Inhaled Oxygen Concentration - - Weight 56.7 kg (125 lb) 02/10/2025 3:05 PM EDT Height 167.6 cm (5' 6 ) 02/10/2025 3:05 PM EDT Body Mass Index 20.18 02/10/2025 3:05 PM EDT Plan of Treatment Upcoming Encounters Date Type Department Care Team (Late st Contact Info) Description 04/09/2025 1:00 PM EDT Ancillary Procedure [facility] [place] [address] [place] [address] 05/21/2025 3:30 PM EDT Office Visit [facility] [address] [place] [address] Marta Hernandez, DO [address] [place] [place] [address] 07/08/2025 8:30 AM EDT Ancillary Procedure [facility] [address] [place] [phone] 07/08/2025 9:15 AM EDT Office Visit [facility] [address] [place] [address] Stevan Esteves MD [address] [place] [address] Procedures Procedure Name Priority Date/Time Associated Diagnosis Comments XR CHEST 2 VIEWS Routine 01/27/2025 2:32 PM EDT Chronic obstructive pulmonary disease, unspecified COPD type (HCC) ED SPLINTING / CASTING / STRAPPING Routine 01/16/2025 6:50 PM EDT Pain and swelling of toe of left foot Muscle strain of left foot, initial encounter XR FOOT 3+ VIEWS LEFT STAT 01/16/2025 6:09 PM EDT Pain and swelling of toe of left foot FSH Routine 01/12/2025 10:19 AM EDT Amenorrhea CEA Routine 01/12/2025 10:19 AM EDT Cysts of both ovaries CA 125 Routine 01/12/2025 10:19 AM EDT Cysts of both ovaries IGP, APT HPV,RFX 16/18,45 Routine 01/12/2025 12:00 AM EDT Encounter for gynecological examination without abnormal finding Encounter for screening for cervical cancer US PELVIS TRANSVAGINAL Routine 01/05/2025 9:03 AM EDT Left ovarian cyst Abnormal endometrial ultrasound from Last 3 Months Results * XR chest 2 views (01/27/2025 2:32 PM EDT) Anatomical Region Laterality Modality Chest Radiographic Yolis ging 01/27/2025 2:32 PM EDT Impressions 01/27/2025 2:35 PM EDT NO ACUTE CARDIOPULMONARY ABNORMALITY. Impression dictated by: Freedom Mcmillan Jr. DJfOJf 01/27/2025 2:32 PM Dictation Location: [facility]-22 Transcribed By: [facility] 01/27/25 1432 Dictated By: Freedom Mcmillan Jr, DO 01/27/25 1432 Signed By: <Electronically signed by Freedom Mcmillan Jr, DO in OV> 01/27/25 1432 Narrative 01/27/2025 2:35 [place] [address] XRay Report Signed Patient: Katy Flores MR#: [id number] : 1975 Acct:[id number] Age/Sex: 50 / F ADM Date: 01/27/25 [facility] Type[facility] CLI Attending Dr: Marta Hernandez DO Copies to: Marta Hernandez DO Ordering Provider: Marta Hernandez DO Date of Service: 01/27/25 XR/XR chest 2V*: COPD, reticular changes on prior imaging Chest 2 views CLINICAL HISTORY: Shortness of breath. COPD. COMPARISON: None FINDINGS: Heart normal in size. Lungs are clear. No free air. XR/XR chest 2V* Procedure Note Freedom Mcmillan Jr., DO - 01/27/2025 [place] [address] XRay Report Signed Patient: Katy Flores KMR#: [id number] : 1975Acct:[id number] Age/Sex: 50 / FADM Date: 01/27/25 Loc: [facility] Room:Type: [facility] CLI Attending Dr: Marta Hernandez DO Copies to: Marta Hernandez DO Ordering Provider: Marta Hernandez DO Date of Service: 01/27/25 XR/XR chest 2V*: COPD, reticular changes onprior imaging Chest 2 views CLINICAL HISTORY: Shortness of breath. COPD. COMPARISON: None FINDINGS: Heart normal in size. Lungs are clear. No free air. XR/XR chest 2V* IMPRESSION: NO ACUTE CARDIOPULMONARY ABNORMALITY. Impression dictated by: Freedom Mcmillan Jr., D.OJf 01/27/2025 2:32 PM Dictation Location: [facility]-22 Transcribed By: [facility] 01/27/25 1432 Dictated By: Freedom Mcmillan Jr, DO 01/27/25 1432 Signed By: <Electronically signed by Freedom Mcmillan Jr, DO inOV> 01/27/25 1432 Marta Hernandez DO IMG XR PROCEDURES Final Resul t * Splint Application (01/16/2025 6:50 PM EDT) Narrative Samaria Yanez LPN - 01/16/2025 6:50 PM EDT Samaria Yanez LPN 01/19/2025 9:08 PM Splint Application Date/Time: 01/16/2025 6:50 PM Performed by: Samaria Yanez LPN Authorized by: Samaria Pires NP Consent: Consent obtained: Verbal Consent given by: Patient Procedure details: Location: Foot Foot location: L foot Supplies: Prefabricated splint Attestation: Splint applied and adjusted personally by me Comments: Pt and provider signed DME form. Pt provided with left foot cam boot. Ref # [id number] us Samaria Pires NNP IN CLINIC/BEDSIDE ORDERABLE S Final Result * XR foot 3+ views left (01/16/2025 6:09 PM EDT) Anatomical Region Laterality Modality Lower Extremities, Foot Left [facility] 01/16/2025 6:48 PM EDT Narrative 01/16/2025 6:48 PM EDT Title of exam: XR FOOT 3+ VIEWS LEFT Reason for exam: Left dorsal foot pain across distal third, fourth, fifth metatarsals Comparison: None Discussion: 3 images. Mild arthritic spurring of the lateral aspect of the first metatarsal phalangeal joint. Bony cortices and joint spaces are maintained. No radiopaque foreign body visualized radiographically.Soft tissues without abnormality radiographically. No erosions Impression: No acute bony abnormalities radiographically. Dictated on: 01/16/2025 4:36 PM This report has been electronically signed and approved by the interpreting Radiologist. This report is generated using voice recognition reporting (ResoServ). On occasion, Powerscribe erroneously drops words from the report or replaces the spoken word with a similar sounding word. Please call with any questions/concerns regarding the report. Procedure Note Adonay Lawrence MD - 01/16/2025 Title of exam: XR FOOT 3+ VIEWS LEFT Reason for exam: Left dorsal foot pain across distal third, fourth, fifthmetatarsals Comparison: None Discussion: 3 images. Mild arthritic spurring of the lateral aspect of thefirst metatarsal phalangeal joint. Bony cortices and joint spaces aremaintained. No radiopaque foreign body visualized radiographically.Softtissues without abnormality radiographically. No erosions Impression: No acute bony abnormalities radiographically. Dictated on: 01/16/2025 4:36 PM This report has been electronically signed and approved by theinterpreting Radiologist. This report is generated using voice recognition reporting (ResoServ).On occasion, Powerscribe erroneously drops words from the report orreplaces the spoken word with a similar sounding word. Please call withany questions/concerns regarding the report. us Samaria Pires NNP IMG XR PROCEDURES Final Res ult * CA 125 (01/12/2025 10:19 AM EDT) CA125 Cancer Ag 7.5 0.0 - 38.1 U/mL [facility] Comment: [facility] Electrochemiluminescence Immunoassay (ECLIA) Values obtained with different assay methods or kits cannot be used interchangeably. Results cannot be interpreted as absolute evidence of the presence or absence of malignant disease. Blood Venous blood specimen / Unknown 01/12/2025 10:19 AM EDT 01/12/2025 Narrative [facility] - 01/13/2025 6:06 AM EDT Performed at: [address] [place] [id number] Mine Safety Director: Andres Arboleda PhD, Phone: [phone] us Stevan Esteves MD LAB BLOOD ORDERABLES Final Res ult Performing Organization Address [facility] de Phone Number [facility] * Follicle stimulating hormone (01/12/2025 10:19 AM EDT) FSH 49.6 mIU/mL [facility] Comment: Adult Female Range Follicular phase 3.5 - 12.5 Ovulation phase 4.7 - 21.5 Luteal phase 1.7 - 7.7 Postmenopausal 25.8 - 134.8 Blood Venous blood specimen / Unknown 01/12/2025 10:19 AM EDT 01/12/2025 Narrative [facility] - 01/13/2025 6:06 AM EDT Performed at: [address] [place] [id number] Mine Safety Director: Andres Arboleda PhD, Phone: [phone] us Stevan Esteves MD LAB BLOOD ORDERABLES Final Res ult Performing Organization Address [facility] de Phone Number [facility] * CEA (01/12/2025 10:19 AM EDT) Pathologist [facility] CEA 3.6 0.0 - 4.7 ng/mL [facility] Comment: Nonsmokers <3.9 Smokers <5.6 [facility] Electrochemiluminescence Immunoassay (ECLIA) Values obtained with different assay methods or kits cannot be used interchangeably. Results cannot be interpreted as absolute evidence of the presence or absence of malignant disease. Blood Venous blood specimen / Unknown 01/12/2025 10:19 AM EDT 01/12/2025 Narrative [facility] - 01/13/2025 6:06 AM EDT Performed at: [address] [place] [id number] Mine Safety Director: Andres Arboleda PhD, Phone: [phone] us Stevan Esteves MD LAB BLOOD ORDERABLES Final Res ult [facility] * IGP, APT HPV,RFX 16/18,45 (01/12/2025 12:00 AM EDT) Diagnosis: Comment [facility] Comment:NEGATIVE FOR INTRAEP ITHELIAL LESION OR MALIGNANCY. Specimen Adequacy: Comment [facility] Comment: Satisfactory for evaluation. Endocervical and/or squamous metaplastic cells (endocervical component) are present. Clinician Provided ICD10: Comment [facility] Comment: Z01.419 Z12.4 Performed By: Comment [facility] Comment:Neva Huynh, Cyt ologist (ASCP) Cyto Comments . [facility] Note: Comment [facility] Comment: The Pap smear is a screening test designed to aid in the detection of premalignant and malignant conditions of the uterine cervix. It is not a diagnostic procedure and should not be used as the sole means of detecting cervical cancer. Both false-positive and false-negative reports do occur. Test Methodology: Comment [facility] Comment: This liquid based ThinPrep(R) pap test was screened with the use of an image guided system. HPV Aptima Negative Negative [facility] Comment: This nucleic acid amplification test detects fourteen high-risk HPV types (16,18,31,33,35,39,45,51,52,56,58,59,66,68) without differentiation. Vaginal Fluid 01/12/2025 01/13/2025 Narrative [facility] - 01/14/2025 1:07 PM EDT Performed at: [facility] [address] [place] [id number] Mine Safety Director: Antony Dunne MD, Phone: [phone] Performed at: 02 - [address] [id number] Mine Safety Director: Faviola Wade MD, Phone: [phone] Performed at: 03 - [address] [id number] Mine Safety Director: Faviola Wade MD, Phone: [phone] Specimen Comment: No. of containers..01 ThinPrep Vial Stevan Esteves MD LAB BLOOD ORDERABLES Final Res ult [facility] * US pelvis transvaginal (01/05/2025 9:03 AM EDT) Anatomical Region Laterality Modality Pelvis Ultrasound Study GA Study Date Study YOSELIN Working YOSELIN (Source) 01/05/2025 us Stevan Esteves MD IMG US PROCEDURES Final Result from Last 3 Months Insurance [employer] Care Teams Actuarial Assistant Relationship Specialty Start Date End Date Leanne Stanford MD [address] [place] [address] PCP - General Family Medicine 07/16/23
--- OUTSIDE RECORDS SUMMARY | 2025-03-10 10:53 | XMS_ITS | Clinical Summary ---
Author Organization [facility] Address [address] [place] [phone] Phone Care Team Providers Care Dental Technician Apprentice Name Role Phone Unavailable Primary Care Provider Unavailabl e Encounters Date Type Department Care Team Description 01/27/2025 Orders Only [facility] [address] [place] [address] Marta Hernandez DO from Last 3 Months Social History Tobacco Use Types Packs/Day Years Used Date Smoking Tobacco: Never Assessed Comments Unknown Sex and Gender Information Value Date Recorded Sex Assigned at Not on file Legal Sex Female 8:35 PM EST Gender Identity Not on file Sexual Orientation Not on file Plan of Treatment Not on file Procedures Procedure Name Priority Date/Time Associated Diagnosis Comments XR CHEST 2 VIEWS 01/27/2025 2:32 PM EDT from Last 3 Months Results * XR chest 2 views (01/27/2025 2:32 PM EDT) Anatomical Region Laterality Modality Thoracic, Chest Radiographic Yolis ging 01/27/2025 2:32 PM EDT Narrative 01/27/2025 2:35 PM EDT [facility] [place] [address] XRay Report Signed Patient: Katy Flores MR#: [id number] : 1975 Acct:[id number] Age/Sex: 50 / F ADM Date: 01/27/25 Loc: [facility]DS Room: Type: [facility] Attending Dr: Marta Hernandez DO Copies to: Marta Hernandez DO Ordering Provider: Marta Hernandez DO Date of Service: 01/27/25 XR/XR chest 2V*: COPD, reticular changes on prior imaging Chest 2 views CLINICAL HISTORY: Shortness of breath. COPD. COMPARISON: None FINDINGS: Heart normal in size. Lungs are clear. No free air. XR/XR chest 2V* IMPRESSION: NO ACUTE CARDIOPULMONARY ABNORMALITY. Impression dictated by: Eunice Hoff Jr.OJf 01/27/2025 2:32 PM Dictation Location: [facility] Transcribed By: [facility] 01/27/25 1432 Dictated By: Freedom Mcmillan Jr, DO 01/27/25 1432 Signed By: <Electronically signed by Freedom Mcmillan Jr, DO in OV> 01/27/25 1432 Marta Hernandez DO IMG XR PROCEDURES Final Resul t from Last 3 Months
--- OUTSIDE RECORDS SUMMARY | 2025-03-10 10:53 | XMS_ITS | Encounter Summary ---
Author Organization [facility] Address [address] [facility] [email or web address] [address] Care Team Providers Care Customer Supply Chain Analyst Name Role Phone Leanne Stanford MD Primary Care Provider [phone] Encounter Details Date Type Department Care Team (Late st Contact Info) Description 08/01/2023 External Result Encounter [facility] External Department Unsolicited Marta Hernandez DO [address] [place] [address] Social History Tobacco Use Types Packs/Day Years Used Date Smoking Tobacco: Every Day Cigarettes 1 30 Smokeless Tobacco: Never Alcohol Use Standard Drinks/Week Comments Never 0 (1 standard drink = 0.6 oz pure alcohol) caffeine intake: 2-3 cups per day of coffee, soda/pop Education Answer Date Recorded What is the [...] Start Date Job End Date 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, 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 on file Not on file Not on file documented as of this encounter Plan of Treatment Upcoming Encounters Date Type Department Care Team (Late st Contact Info) Description 04/09/2025 1:00 PM EDT Ancillary Procedure [facility] [place] [address] [place] [address] 05/21/2025 3:30 PM EDT Office Visit [facility] [address] [place] [address] Marta Hernandez DO [address] [place] [address] 07/08/2025 8:30 AM EDT Ancillary Procedure [facility] [address] [place] [phone] 07/08/2025 9:15 AM EDT Office Visit [facility] [address] [place] [address] Stevan Esteves MD [address] [place] [address] documented as of this encounter Procedures Procedure Name Priority Date/Time Associated Diagnosis Comments CT CHEST WO IV CONTRAST 08/01/2023 1:52 PM EST documented in this encounter Results * CT chest wo IV contrast (08/01/2023 1:52 PM EST) Anatomical Region Laterality Modality Body, Chest Computed Tomogra phy 08/01/2023 1:52 PM EST Impressions 08/02/2023 9:04 AM EST No acute process is seen. A questionable small sclerotic lesion is seen involving the T7 vertebral body. Finding is indeterminate. This can be further evaluated by bone scan if bony metastatic disease is of clinical concern. Impression dictated by: Freedom Mcmillan Jr., D.O.08/01/2023 1:55 PM Dictation Location: [place] [address] Transcribed By: PWS 08/01/23 1355 Dictated By: Freedom Mcmillan Jr, DO 08/01/23 1352 Signed By: <Electronically signed by Freedom Mcmillan Jr, DO in OV> 08/01/23 1355 Narrative 08/02/2023 9:04 AM EST [facility] Main [place] [address] [place] [id number] Scan Report Signed Patient: Katy Flores MR#: [id number] : 1975 Acct:[id number] Age/Sex: 48 / F ADM Date: 08/01/23 Loc: CT Room: Type: REG CLI Attending Dr: Marta Hernandez DO Copies to: aMrta Hernandez DO Ordering Provider: Marta Hernandez DO Date of Service: 08/01/23 CT/CT chest wo con: J44.9,F17.210,R07.9 CT CHEST WITHOUT IV CONTRAST: CLINICAL HISTORY: Cough for 6 years with weight loss. COMPARISON: None TECHNIQUE: Spiral images were obtained through the chest without IV contrast. This CT exam was performed using one or more following dose reduction techniques: Automated exposure control, adjustment of the mA and/or kV according to patient size, or use of iterative reconstruction technique. FINDINGS: Mediastinum:Thoracic aorta appears normal in caliber. Pulmonary trunk appears nondilated. No pleural effusion. No lymphadenopathy. The esophagus is grossly unremarkable. Lungs:Mild reticular changes without honeycombing. No consolidation pneumothorax or pleural effusion. Trachea and distal airways appear patent. No suspicious pulmonary nodule or mass. Abd:No acute findings. Soft tissues/Bones: Soft tissues demonstrate no acute findings. Osseous structures demonstrate degenerative change. A questionable small sclerotic lesion is seen involving the T7 vertebral body. CT/CT chest wo con Procedure Note Radiology, Radiologist, MD - 08/02/2023 [facility] Main [place] [address] [place] [address] CT Scan Report Signed Patient: Katy Flores KMR#: [id number] : 1975Acct:[id number] Age/Sex: 48 / FADM Date: 08/01/23 Loc: CT Room:Type: REG CLI Attending Dr: Marta Hernandez DO Copies to: Marta Hernandez DO Ordering Provider: Marta Hernandez DO Date of Service: 08/01/23 CT/CT chest wo con: J44.9,F17.210,R07.9 CT CHEST WITHOUT IV CONTRAST: CLINICAL HISTORY: Cough for 6 years with weight loss. COMPARISON: None TECHNIQUE: Spiral images were obtained through the chest without IVcontrast. This CT exam was performed using one or more following dose reduction techniques: Automatedexposure control, adjustment of the mA and/or kV according to patient size, or use ofiterative reconstruction technique. FINDINGS: Mediastinum:Thoracic aorta appears normal in caliber. Pulmonary trunkappears nondilated. No pleural effusion. No lymphadenopathy. The esophagus is grosslyunremarkable. Lungs:Mild reticular changes without honeycombing. No consolidationpneumothorax or pleural effusion. Trachea and distal airways appear patent. No suspiciouspulmonary nodule or mass. Abd:No acute findings. Soft tissues/Bones: Soft tissues demonstrate no acute findings. Osseousstructures demonstrate degenerative change. A questionable small sclerotic lesion is seeninvolving the T7 vertebral body. CT/CT chest wo con IMPRESSION: No acute process is seen. A questionable small sclerotic lesion is seen involving the T7 vertebralbody. Finding is indeterminate. This can be further evaluated by bone scan if bonymetastatic disease is of clinical concern. Impression dictated by: Freedom Mcmillan Jr., D.O.08/01/2023 1:55 PM Dictation Location: [place] [address] Transcribed By: [facility] 08/01/23 1355 Dictated By: Freedom Mcmillan Jr, DO 08/01/23 1352 Signed By: <Electronically signed by Freedom Mcmillan Jr, DO inOV> 08/01/23 1355 Marta Hernandez DO IMG CT PROCEDURES Final Resul t documented in this encounter Visit Diagnoses Not on filedocumented in this encounter Care Teams Customer Supply Chain Analyst Relationship Specialty Start Date End Date Leanne Stanford MD [address] [place] [phone] PCP - General Family Medicine 07/16/23 documented as of this encounter
--- OUTSIDE RECORDS SUMMARY | 2025-03-10 10:53 | XMS_ITS | Encounter Summary ---
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 Not on file Not on file documented as of this encounter Plan of Treatment Upcoming Encounters Date Type Department Care Team (Late st Contact Info) Description 04/09/2025 1:00 PM EDT Ancillary Procedure [facility] [place] [address] [place] [address] 05/21/2025 3:30 PM EDT Office Visit [facility] [address] [place] [phone] Marta Hernandez DO [address] [place] [address] 07/08/2025 8:30 AM EDT Ancillary Procedure [facility] [address] [place] [address] 07/08/2025 9:15 AM EDT Office Visit [facility] [address] [place] [address] Stevan Esteves MD [address] [place] [address] documented as of this encounter Visit Diagnoses Not on filedocumented in this encounter Care Teams Sheet Taker Relationship Specialty Start Date End Date Leanne Stanford MD [address] [place] [address] PCP - General Family Medicine 07/16/23 documented as of this encounter
--- OUTSIDE RECORDS SUMMARY | 2025-03-10 10:54 | XMS_ITS | Encounter Summary ---
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 Not on file Not on file documented as of this encounter Plan of Treatment Upcoming Encounters Date Type Department Care Team (Late st Contact Info) Description 04/09/2025 1:00 PM EDT Ancillary Procedure [facility] [place] [address] [place] [address] 05/21/2025 3:30 PM EDT Office Visit [facility] [address] [place] [address] Marta Hernandez DO [address] [place] [address] 07/08/2025 8:30 AM EDT Ancillary Procedure [facility] [address] [place] [phone] 07/08/2025 9:15 AM EDT Office Visit [facility] [address] [place] [phone] Stevan Esteves MD [address] [place] [address] documented as of this encounter Procedures Procedure Name Priority Date/Time Associated Diagnosis Comments CONGENITAL TRANSTHORACIC ECHO (TTE) COMPLETE 08/06/2023 2:54 PM EST documented in this encounter Results * Congenital transthoracic echo (TTE) complete (08/06/2023 2:54 PM EST) Anatomical Region Laterality Modality Heart Ultrasound 08/06/2023 2:54 PM EST Narrative 08/07/2023 8:18 AM EST [facility] Main [address] [address] Echocardiogram Signed Patient: Katy Flores MR#: [id number] : 1975 Acct:[id number] Age/Sex: 48 / F ADM Date: 08/06/23 Loc: Room: Type: [facility] Attending Dr: Marta Hernandez DO Ordering Provider: Marta Hernandez DO Date of Service: 08/06/23/ ECH/ECH echo transthoracic: CHEST PAIN Copies to: Marta Valdez MD Weight: 110 lb Performed By: KATHRINE Osorio BSA: 1.6 m2 BP: 105/72 mmHg HR: 84 Reason For Study: CHEST PAIN History: Smoker, COPD Interpretation Summary Ejection Fraction = 55-60%. The left ventricular size, thickness and function are normal The left ventricular wall motion is normal. Normal transthoracic echocardiogram. Procedure/Quality: A two-dimensional transthoracic echocardiogram with color flow and Doppler was performed. Left Ventricle: The left ventricular size, thickness and function are normal. Ejection Fraction = 55-60%. The left ventricular wall motion is normal. Left Atrium: The left atrium appears normal in size. Right Atrium: The right atrium appears normal in size. Right Ventricle: The right ventricular size, thickness and function are normal. Aortic Valve: The aortic valve is normal in structure and function. No aortic regurgitation is present. Mitral Valve: The mitral valve is normal in structure and function. There is no mitral regurgitation noted. Tricuspid Valve: The tricuspid valve is normal in structure and function. No tricuspid regurgitation. Pulmonic Valve: The pulmonic valve is normal in structure and function. Arteries: The aortic root is normal size. Pericardium/Pleura: No pericardial effusion seen. There is no pleural effusion. IVC/Hepatic Viens: The inferior vena cava is normal in size, with a normal collapsibility index. Measurements with Normals IVSd: 0.77 cm (0.7-1.1 cm)LVIDd: 4.6 cm (3.7-5.4 cm) LVPWd: 0.81 cm (0.7-1.1 cm)LVIDs: 2.4 cm (2.3-3.6 cm) LA dimension: 2.7 cm (2.3-4.0 cm)Ao root diam: 2.6 cm(2.0-3.6 cm) asc Aorta Diam: 2.9 cm(2.1-3.4cm) Doppler with Normals RVSP(TR): 35.4 mmHg (18-35mmHg) MV E max bowen: 81.0 cm/sec(0.8-1.3m/s) MV A max bowen: 87.4 cm/sec(0.0-0.0m/s) MV E/A: 0.93 (<1.5) MMode/2D Measurements Calculations RVDd: 1.8 cm FS: 47.6 % Ao root area: 5.2 cm2 LVLd ap4: 7.4 cm TAPSE: 2.4 cm EDV(Teich): EDV(MOD-sp4): RV S Bowen: 98.2 ml 52.8 ml 20.0 cm/sec ESV(Teich): LVLs ap4: 5.6 cm 20.5 ml ESV(MOD-sp4): EF(Teich): 79.1 % 17.7 ml EF(MOD-sp4): 66.5 % __ SV(MOD-sp4): LAV(MOD-sp4): LA A2 area: 10.2 cm2 RA Volume: 21.7 ml 35.1 ml 17.8 ml LAV(MOD-sp2): LA A4 area: 9.6 cm2 26.7 ml LA length (vol): 3.8 cm LA vol: 22.1 ml LA vol index: 14.2 ml/m2 Doppler Measurements Calculations MV max P.0 mmHg E/E' lat: MR max bowen: TV max P.8 227.4 cm/sec 30.0 mmHg E/E' med: MR max P.1 mmHg 7.6 __ TR max bowen: 275.5 cm/sec TR max P.4 mmHg RAP systole: 5.0 mmHg Measurements from QLAB ED Mass (HM): LAEF (HM): LAVmax (HM): LAVmin (HM): 102.0 grams 54.0 % 34.0 ml 16.0 ml QLAB Heart Model EDV ()_phl: 110.0 ml EF ()_phl: 55.0 % ED Current ()_phl: 60.0 % ESV ()_phl: 50.0 ml HR (HM)_phl: 78.0 BPMES Current ()_phl: 30.0 % LV Length ED (HM)_phl: 85.0 mmSV ()_phl: 60.0 ml ED Default ()_phl: 60.0 % LV Length ES (HM)_phl: 68.0 mm ES Default ()_phl: 30.0 % Transcribed By: TONY Performed At: 08/06/23 1454 Signed By: Lacey Chun MD 08/06/232028 Procedure Note Lacey Chun MD - 08/07/2023 [facility] Main [place] [address] [place], [place] [id number] Echocardiogram Signed Patient: Katy Flores KMR#: [id number] : 1975Acct:[id number] Age/Sex: 48 / FADM Date: 08/06/23 Loc: [facility] Attending Dr: Marta Hernandez DO Ordering Provider: Marta Hernandez DO Date of Service: 08/06/23/ ECH/ECH echo transthoracic: CHEST PAIN Copies to: Marta Valdez MD Weight: 110 lb Performed By: KATHRINE Monreal BSA: 1.6 m2 BP: 105/72 mmHg HR: 84 Reason For Study: CHEST PAIN History: Smoker, COPD Interpretation Summary Ejection Fraction = 55-60%. The left ventricular size, thickness and function are normal The left ventricular wall motion is normal. Normal transthoracic echocardiogram. Procedure/Quality: A two-dimensional transthoracic echocardiogram withcolor flow and Doppler was performed. Left Ventricle: The left ventricular size, thickness and function are normal. Ejection Fraction = 55-60%. The left ventricular wall motion is normal. Left Atrium: The left atrium appears normal in size. Right Atrium: The right atrium appears normal in size. Right Ventricle: The right ventricular size, thickness and function are normal. Aortic Valve: The aortic valve is normal in structure and function. No aortic regurgitation is present. Mitral Valve: The mitral valve is normal in structure and function.There is no mitral regurgitation noted. Tricuspid Valve: The tricuspid valve is normal in structure andfunction. No tricuspid regurgitation. Pulmonic Valve: The pulmonic valve is normal in structure and function. Arteries: The aortic root is normal size. Pericardium/Pleura: No pericardial effusion seen. There is no pleural effusion. IVC/Hepatic Viens: The inferior vena cava is normal in size, with anormal collapsibility index. Measurements with Normals IVSd: 0.77 cm (0.7-1.1 cm)LVIDd: 4.6 cm (3.7-5.4 cm) LVPWd: 0.81 cm (0.7-1.1 cm)LVIDs: 2.4 cm (2.3-3.6 cm) LA dimension: 2.7 cm (2.3-4.0 cm)Ao root diam: 2.6 cm(2.0-3.6 cm) asc Aorta Diam: 2.9 cm(2.1-3.4cm) Doppler with Normals RVSP(TR): 35.4 mmHg (18-35mmHg) MV E max bowen: 81.0 cm/sec(0.8-1.3m/s) MV A max bowen: 87.4 cm/sec(0.0-0.0m/s) MV E/A: 0.93 (<1.5) MMode/2D Measurements Calculations RVDd: 1.8 cm FS: 47.6 % Ao root area: 5.2 cm2 LVLd ap4: 7.4cm TAPSE: 2.4 cm EDV(Teich): EDV(MOD-sp4): RV S Bowen: 98.2 ml 52.8 ml 20.0 cm/sec ESV(Teich): LVLs ap4: 5.6cm 20.5 ml ESV(MOD-sp4): EF(Teich): 79.1 % 17.7 ml EF(MOD-sp4): 66.5 % __ SV(MOD-sp4): LAV(MOD-sp4): LA A2 area: 10.2 cm2 RA Volume:21.7 ml 35.1 ml 17.8 ml LAV(MOD-sp2): LA A4 area: 9.6 cm2 26.7 ml LA length (vol): 3.8 cm LA vol: 22.1 ml LA vol index: 14.2 ml/m2 Doppler Measurements Calculations MV max P.0 mmHg E/E' lat: MR max bowen: TV max P.8 227.4 cm/sec 30.0 mmHg E/E' med: MR max P.1 mmHg 7.6 __ TR max bowen: 275.5 cm/sec TR max P.4 mmHg RAP systole: 5.0 mmHg Measurements from QLAB ED Mass (HM): LAEF (HM): LAVmax (HM): LAVmin (HM): 102.0 grams 54.0 % 34.0 ml 16.0 ml QLAB Heart Model EDV (HM)_phl: 110.0 ml EF (HM)_phl: 55.0 % ED Current (HM)_phl:60.0 % ESV (HM)_phl: 50.0 ml HR (HM)_phl: 78.0 BPMES Current (HM)_phl:30.0 % LV Length ED (HM)_phl: 85.0 mmSV (HM)_phl: 60.0 ml ED Default (HM)_phl:60.0 % LV Length ES (HM)_phl: 68.0 mm ES Default (HM)_phl:30.0 % Transcribed By: SCV Performed At: 08/06/23 1454 Signed By: Lacey Chun MD 08/06/232028 Marta Hernandez DO CV ECHO PROCEDURES Final Resu lt documented in this encounter Visit Diagnoses Not on filedocumented in this encounter Care Teams Wire Stitcher Machine Relationship Specialty Start Date End Date Leanne Stanford MD [address] [place] [phone] PCP - General Family Medicine 07/16/23 documented as of this encounter
--- OUTSIDE RECORDS SUMMARY | 2025-03-10 10:54 | XMS_ITS | Encounter Summary ---
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 documented in this encounter Plan of Treatment Upcoming Encounters Date Type Department Care Team (Late st Contact Info) Description 04/09/2025 1:00 PM EDT Ancillary Procedure [facility] [place] [address] [place] [address] 05/21/2025 3:30 PM EDT Office Visit [facility] [address] [place] [phone] Marta Hernandez, DO [address] [place] [address] 07/08/2025 8:30 AM EDT Ancillary Procedure [facility] [address] [place] [address] 07/08/2025 9:15 AM EDT Office Visit [facility] [address] [place] [address] Stevan Esteves MD [address] [place] [address] documented as of this encounter Visit Diagnoses Not on filedocumented in this encounter Care Teams Student Driving Instructor Relationship Specialty Start Date End Date Leanne Stanford MD [address] [place] [address] PCP - General Family Medicine 07/16/23 documented as of this encounter
--- NOTE | 2025-03-10 11:00 | XR_ITS ---
XR/XR foot LT min 3V IMPRESSION: NO ACUTE BONY PROCESS. Impression dictated by: Freedom Mcmillan Jr., D.O. 03/10/2025 12:58 PM Dictation Location: [place] [address] Electronically authenticated by: [id number] Y Date: 03/10/2025 12:58
== END 2025-03-10 10:50 | disposition home or self-care (01) ==
LOC: RAD 10:50
PROVIDERS: PCP Family Medicine; Visit Provider Podiatrist Foot & Ankle Surgery
DX: M79.672 Pain in left foot (principal)
CPT/HCPCS: 36415; 73630; 82607; 82746

== ENCOUNTER 2025-03-10 10:54 | Outpatient (OUT) | payer OTHER, SELFPAY ==
--- OUTSIDE RECORDS SUMMARY | 2015-02-09 09:26 | XMS_ITS | Continuity of Care Document ---
Author Organization [facility] Address [address] [place] [address] Phone Care Team Providers Care Assembler Product Name Role Phone Rubén Janell FLYNN Unavailable [...] Diagnoses Date Provider Providers Copied on Encounter [facility], [address] [place], [place], [id number] , [place] tel: [phone] [facility] No Information 5 [facility] Janell. [address] [place] [address], [id number] , [place]. tel: [phone] OFFICE/OUTPA TIENT VISIT, [facility], [address] [place], [place], [id number] , [place] tel: [phone] [facility] annual visit (chief complaint) control-OC P (chief complaint) Medication Refill (chief complaint) Gynecological ExaminationOther specified contraceptive managementGenital herpes, unspecified 4 [facility] Janell. [address] [place], [place], [id number] , [place]. tel: [phone] OFFICE/OUTPA TIENT VISIT, [facility], [address] [place] [address], [id number] , [place] tel: [phone] [facility] supply visit/ pills (chief complaint) Surveillance of other contraceptive methodOther specified contraceptive managementGeneral counseling on prescription of oral contraceptives 3 Alpesh Taveras. [address] [place] [address], [id number], [place]. tel: [phone] OFFICE/OUTPA TIENT VISIT, [facility], [address] [place] [address], [id number] , [place] tel: [phone] [facility] update (chief complaint) Gynecological ExaminationSurveillan ce of contraceptive pill 3 Jeanne Foster. [address] [place] [address], [id number] , [place]. tel: [phone] OFFICE/OUTPA TIENT VISIT, [facility], [address] [place] [address], [id number] , [place] tel: [phone] [facility] No Information 2 Jeanne Foster. [address] [place], [place], [id number] , [place]. tel: [phone] PREV VISIT, NEW, AGE 18-39 [facility], [address] [place], [place], [id number] , [place] tel: [phone] [facility] No Information 2 Jeanne Foster. [address] [place], [place], [id number] , [place]. tel: [phone] Family History Family Member Type Diagnosis Age At Onset Father Problem (finding) Alive and well Father Problem (finding) stroke Mother Problem (finding) Alive and well Father Problem (finding) alzheimer's disease Father Problem (finding) malignant neoplasm of u [facility] bladder Father Problem (finding) hypertension Problem (finding) Family history of Heart disease Father Problem (finding) prostate cancer Father Problem (finding) diabetes melli tus in first degree relative Problem (finding) Payers Payer name Insurance type Covered alliance party ID Authoriza tion(s) No Information Social History [...]
[2025-03-11 04:07] LABS: Vitamin B12 1187 pg/mL (232-1245)
== END 2025-03-10 10:55 | disposition home or self-care (01) ==
LOC: LAB 10:55
PROVIDERS: PCP Family Medicine; Visit Provider Family Medicine
DX: D50.9 Iron deficiency anemia, unspecified (principal)
CPT/HCPCS: 36415; 82607; 82746

== ENCOUNTER 2025-04-02 09:10 | Outpatient (OUT) | payer OTHER, SELFPAY ==
--- NOTE | 2025-04-02 09:15 | XR_ITS ---
The [address] [address] Patient Name: MARKO BANUELOS MRN: [id number] date: 1975 Sex: F Assigned Patient Location: [facility] Current Patient Location: [facility] Accession/Order Number: [id number] Exam Date: 04/02/2025 09:53 Report Date: 04/02/2025 09:55 At the request of: FERNANDA CONCEPCION MD Procedure: XR foot RT min 3V RIGHT FOOT - 3 views CLINICAL DATA: Right foot pain dorsally for the past week. No injury. COMPARISON: 12/19/2023 AP, lateral and oblique views were obtained. There is no evidence of fracture or dislocation. There are no significant soft tissue abnormalities. XR/XR foot RT min 3V IMPRESSION: NO ACUTE BONY FINDINGS. Impression dictated by: Beatris Salazar M.D. 04/02/2025 9:55 AM Dictation Location: [place] [address] Electronically authenticated by: [id number] Y Date: 04/02/2025 09:55
--- OUTSIDE RECORDS SUMMARY | 2025-04-02 09:30 | XMS_ITS | CCD ---
Author Organization [facility] Care Team Providers Care Camp Tender Name Role Phone NO FAMILY, PHYSICIAN Primary Care Provider Dianava DO Dio Randall Attending Provider FERNANDA CONCEPCION Primary Care Physician [phone] MD Kye Apodaca Attending Provider MD Stevan Alicia Referring Provider [phone] MD Fernanda Concepcion Primary Care Provider [phone] Fernanda Concepcion Unavailable DR VIKRAM OSUNA V Consulting Unavailable JAMEY, DR FERNANDA Jimenez Primary Care Unavailable MARK HEADLEY Attending Unavailable MARK HEADLEY Admitting Unavailable MARK HEADLEY Consulting Unavailable JAMEY, DR FERNANDA Jimenez Primary Care Unavailable HARIS TEJADA Attending Unavailable HARIS TEJADA Admitting Unavailable MIRANDA MURRAY Consulting Unavailable MIRANDA MURRAY Attending Unavailable MARTHA Rhoades, MIRANDA Admitting Unavailable JAMEY, DR FERNANDA Jimenez Primary Care Unavailable GIGI WOODS Consulting Unavailable BOLA MARROQUIN Consulting Unavailable JAMEY, DR FERNANDA Jimenez Primary Care Unavailable CONCEPCION, DR FERNANDA Jimenez Attending Unavailable CONCEPCION, DR FERNANDA Jimenez Admitting Unavailable CONCEPCION, DR FERNANDA Jimenez Consulting Unavailable CONCEPCION, DR FERNANDA Jimenez Primary Care Unavailable CONCEPCION, DR FERNANDA Jimenez Attending Unavailable CONCEPCION, DR FERNANDA Jimenez Admitting Unavailable CONCEPCION, DR FERNANDA Jimenez Consulting Unavailable CONCEPCION, DR FERNANDA Jimenez Primary Care Unavailable CONCEPCION, DR FERNANDA Jimenez Attending Unavailable CONCEPCION, DR FERNANDA Jimenez Admitting Unavailable CONCEPCION, DR FERNANDA Jimenez Consulting Unavailable CONCEPCION, DR FERNANDA Jimenez Primary Care Unavailable CONCEPCION, DR FERNANDA Jimenez Attending Unavailable CONCEPCION, DR FERNANDA Jimenez Admitting Unavailable CONCEPCION, DR FERNANDA Jimenez Consulting Unavailable CONCEPCION, DR FERNANDA Jimenez Primary Care Unavailable CONCEPCION, DR FERNANDA Jimenez Attending Unavailable CONCEPCION, DR FERNANDA Jimenez Admitting Unavailable CONCEPCION, DR FERNANDA Jimenez Consulting Unavailable CONCEPCION, DR FERNANDA Jimenez Primary Care Unavailable CONCEPCION, DR FERNANDA Jimenez Attending Unavailable JAMEY, DR FERNANDA Jimenez Admitting Unavailable GUILLERMINA, GIGI Consulting Unavailable SARAI, DR LOCKETT Consulting Unavailable JAMEY, DR FERNANDA Jimenez Primary Care Unavailable SARAI, DR LOCKETT Attending Unavailable SARAI, DR LOCKETT Admitting Unavailable MD Fernanda Concepcion Primary Care Provider [phone] RANDALL Palencia Attending Provider Charles Gilliam Unavailable MD Fernanda Concepcion Attending Provider Stefan Mcdonough Unavailable MD Fernanda Concepcion Primary Care Provider [phone] MD Fernanda Concepcion Attending Provider RHONDA Kaplan Attending Provider DO Marta Hernandez Attending Provider MD Fernanda Concepcion Primary Care Provider [phone] RHONDA Kaplan Attending Provider MD Fernanda Concepcion Attending Provider [phone] Prashant Mitchell Unavailable DO Prashant Mitchell Attending Provider MD Candelario Johansen Attending Provider DO Dio Lara Attending Provider [phone] Fernanda Concepcion MD Primary Care Provider MD Fernanda Concepcino Primary Care Provider DO Marta Hernandez Attending Provider [phone] MD Candelario Johansen Attending Provider DO Dio Lara Attending Provider MD Fernanda Concepcion Primary Care Provider [phone] MD Destiny Rodriguez Attending Provider MD Spencer Valadez Attending Provider MD Fernanda Concepcion Primary Care Provider MD Destiny Rodriguez Attending Provider MD Fernanda Concepcion Primary Care Provider MD Destiny Rodriguez Attending Provider Girma Delgado Referring Unavaila ble ChristGirma stern Attending Unavaila ble ChristGirma stern Admitting Unavaila ble EJ, RHONDA GIANNA E Attending Unavailab le EJ, RHONDA GIANNA E Attending Unavailab le EJ, PANahun GIANNA E Attending Unavailab le EJ, RHONDA GIANNA E Attending Unavailab le EJ, RHONDA GIANNA E Attending Unavailab le EJ, RHONDA HENDRICKSON E Attending Unavailab PRASANTH Kearney Referring Unavailable ChristGirma stern Admitting Unavaila ble ChristGirma stern Attending Unavaila ble NONE, XXXX Referring Unavailable Girma Delgado Admitting Unavaila ble Girma Delgado Attending Unavaila ble Girma Delgado Admitting Unavaila ble Girma Delgado Attending Unavaila ble Girma Delgado Referring Unavaila ble EJ, RHONDA HENDRICKSON E Attending UnavailMD Fernanda Meraz Primary Care Provider MD Spencer Valadez Attending Provider MD Fernanda Concepcion Primary Care Provider MD Fernanda Concepcion Primary Care Provider MD Fernanda Concepcion Attending Provider MD Fernanda Concepcion Primary Care Provider MD Fernanda Concepcion Attending Provider MD Fernanda Concepcion Primary Care Provider MD Fernanda Concepcion Attending Provider Fernanda Concepcion MD Primary Care Provider Fernanda Concepcion MD Attending Provider Ute Griffin APRN Attending Provider Stevan Alicia MD Referring Provider Ute Griffin APRN Attending Provider Stevan Alicia MD Referring Provider [phone] Fernanda Concepcion MD Primary Care Provider Elias PEREIRA, Ute Silverio Attending Provider [phone] Stevan Alicia MD Referring Provider Fernanda Concepcion MD Attending Provider Fernanda Concepcion MD Primary Care Provider Elias PEREIRA, Uet Silverio Attending Provider Stevan Alicia MD Referring Provider Fernanda Concepcion MD Attending Provider Fernanda Concepcion MD Primary Care Provider Fernanda Concepcion MD Primary Care Provider [phone] Fernanda Concepcion MD Primary Care Provider Marta Hernandez DO Attending Provider Ute Griffin APRN Attending Provider [phone] Stevan Alicia MD Referring Provider Fernanda Concepcion Primary Care Unavailable Ute Griffin Admitting Unavailable Ute Griffin Attending Unavailable Stevan Alicia P Referring Unavailable Asaad, Imad Admitting Unavailable Asaad, Imad Attending Unavailable Concepcion, Fernanda E Primary Care Unavailable Asaad, Imad Admitting Unavailable Asaad, Imad Attending Unavailable Concepcion, Fernanda E Primary Care Unavailable Concepcion, Fernanda E Primary Care Unavailable Concepcion, Fernanda E Attending Unavailable Concepcion, Fernanda E Admitting Unavailable Concepcion, Fernanda E Primary Care Unavailable Concepcion, Fernanda E Attending Unavailable Concepcion, Fernanda E Admitting Unavailable Marta Hernandez Admitting Unavailable Marta Hernandez Attending Unavailable Concepcion, Fernanda E Primary Care Unavailable Concepcion, Fernanda E Attending Unavailable Concepcion, Fernanda E Admitting Unavailable Concepcion, Fernanda E Primary Care Unavailable Fernanda Concepcion MD Primary Care Provider CANDICE PALENCIA Attending Unavailable STEVAN ALICIA Attending Unavailable MARKEL VICENTE Attending Unavailable MARKEL VICENTE Referring Unavailable MARTA HERNANDEZ Attending Unavailable ALICIA, PENOLA P Referring Unavailable MARTA HERNANDEZ Attending Unavailable STEVAN ALICIA Attending Unavailable Fernanda Concepcion MD Primary Care Provider [phone] Destiny Rodriguez MD Attending Provider Jeanette Mon Attending Provider Fernanda Concepcion MD Referring Provider [phone] Tad Zapata MD Attending Provider Cathryn Lambert DO Attending Provider [phone] Fernanda Concepcion MD Attending Provider Destiny Rodriguez MD Attending Provider Allergies Allergy Classification Reported Allergen(s) Allergy Type Date of Onset Reaction(s) Facility Acetaminophen (1 source) Acetaminophen Drug Allergy 02-12-20 24 Unknown Reaction [facility] Cephalosporins (antibiotic) (1 source) cefdinir Drug Allergy 02-12-20 24 Unknown Reaction [facility] cyclobenzaprine (1 source) cyclobenzaprine Drug Allergy 02-12-20 24 Unknown Reaction [facility] Opioid Agonists (1 source) oxyCODONE Drug Allergy 02-12-20 24 Unknown Reaction [facility] (17 sources) Acetaminophen / oxyCODONE Drug Allergy Unknown [facility] Other (19 sources) cefdinir Drug Allergy 01-08-20 24 Unknown, Unknown Reaction [facility] (17 sources) cyclobenzaprine Drug Allergy Unknown [facility] Other (2 sources) Acetaminophen / oxyCODONE Drug Allergy [facility] (3 sources) Allergies Reconciled Propensity to adverse reactions Unknown [facility] Other (3 sources) patient allergy list reviewed by nurse or physicia Propensity to adverse reactions 04-17-20 19 Comment:Done [facility] Other (3 sources) Flexeril *MUSCULOSKELETAL THERAPY AGENTS* Propensity to adverse reactions 06-04-20 13 Unknown [facility] Other (18 sources) Glycerin Drug Allergy 06-14-20 23 Unknown [facility] (18 sources) House dust mite Allergy to substance 06-14-20 Unknown [facility] (18 sources) Mold Extract Drug Allergy 06-14-20 Other [facility] (18 sources) Cat Hair Extract Allergy to substance 06-14-20 Unknown [facility] (2 sources) Acetaminophen Drug Allergy 01-08-20 Unknown Reaction [facility] (2 sources) cyclobenzaprine Drug Allergy 01-08-20 Unknown Reaction [facility] (2 sources) oxyCODONE Drug Allergy 01-08-20 Unknown Reaction [facility] (1 source) No Known Medication Allergies; Translations: [No Known Medication Allergies] Propensity to adverse reactions (disorder) [facility] Medications Current Medications Medication Drug Class(es) Dates Sig (Normalized) Sig (Original) [id number] 200 actuat albuterol 0.09 mg/actuat metered dose inhaler (6 sources) beta2-Adrenergic Agonist Start: 03-18-2025 take 1 puff(s) by inhalation four times daily Albuterol Sulfate 90 mcg/actuation HFA aerosol inhaler Active 2 PUFF INHALATION Four times daily March 18, 2025 12:00am Complies with drug therapy Start: 02-10-2025 End: 02-10-2026 take 2 puff(s) by inhalation every four hours for wheezing albuterol HFA (ProAir HFA) 90 mcg/act inhaler Indications: Chronic obstructive pulmonary disease, unspecified COPD type ([facility]/HCC) Inhale 2 puffs every 4 (four) hours if needed for wheezing 18 g 11 02/10/2025 02/10/2026 Active benzonatate 200 mg oral capsule (20 sources) Non-narcotic Antitussive Start: 02-23-2023 take 1 capsule by mouth every eight hours Benzonatate 200 MG 1 capsule Orally Three times a day for 10 day(s) Feb, Active Start: 07-18-2022 End: 12-10-2023 take 1 capsule by mouth three times daily Benzonatate 100 mg Capsule Discontinued 100 MG PO Three times daily July 18, 2022 12:00am December 10, 2023 10:38am cetirizine hydrochloride 10 mg oral capsule (20 sources) Histamine-1 Receptor Antagonist Start: 02-06-2025 take 1 capsule by mouth once daily as needed Cetirizine (Zyrtec) 10 mg capsule Active 10 MG PO Daily as needed February 06, 2025 12:00am Complies with drug therapy Start: 04-04-2019 End: 12-10-2023 take 1 tablet by mouth once daily Cetirizine 10 mg tablet Discontinued 10 MG PO Daily April 04, 2019 12:00am December 10, 2023 10:27am cholecalciferol 0.025 mg oral capsule (20 sources) Vitamin D Start: 07-18-2022 take 1 capsule by mouth once daily Cholecalciferol (Vitamin D3) (Vitamin D3) 25 mcg (1,000 unit) Capsule Active 25 MCG PO Daily July 18, 2022 12:00am Complies with drug therapy ciclopirox 10 mg/ml medicated shampoo (10 sources) Start: 11-17-2024 Ciclopirox 1 % shampoo 11/17/2024 Active Cyclosporine (20 sources) Calcineurin Inhibitor Immunosuppressant Start: 03-18-2025 take 1 drop(s) into the eye(s) every twelve hours Start: 03-18-2025 take 1 drop(s) into the eye(s) every twelve hours Cyclosporine (Restasis) 0.05 % dropperette Active 1 DROPS EYE-BOTH Every 12 hours March 18, 2025 12:00am Complies with drug therapy Start: 12-11-2023 take 1 drop(s) into the eye(s) in the morning Restasis 0.05 % ophthalmic emulsion Administer 1 drop into both eyes in the morning and 1 drop before bedtime. 12/11/2023 Active 30 actuat fluticasone furoate 0.1 mg/actuat / umeclidinium 0.0625 mg/actuat / vilanterol 0.025 mg/actuat dry powder inhaler (2 sources) Anticholinergic, Corticosteroid, beta2-Adrenergic Agonist Start: 02-10-2025 take 1 puff(s) by inhalation once daily Daklftnfaww-Kwxuqnwcf-Mmbimv (Trelegy Ellipta) 100-62.5-25 MCG/ACT aerosol powder Indications: Chronic obstructive pulmonary disease, unspecified COPD type (CMS/HCC) Inhale 1 puff Daily 1 each 5 02/10/2025 Active folic acid 1 mg oral tablet (20 sources) Start: 10-28-2022 take 1 tablet by mouth once daily Folic Acid 1 mg Tablet Active 1 MG PO Daily July 14, 2022 12:00am Complies with drug therapy End: 07-01-2024 folic acid (Folvite) 400 MCG tablet 1 (one) time each day at the same time. 07/01/2024 Discontinued (Med list cleanup) folic acid 1 mg / vitamin b12 0.5 mg oral tablet (20 sources) Vitamin B12 Start: 07-18-2022 take 1 tablet by mouth once daily Vitamin A13-Udqtz Acid 0.5-1 mg Tablet Active 1 TAB PO Daily July 18, 2022 12:00am Complies with drug therapy gabapentin 100 mg oral capsule (18 sources) Anti-epileptic Agent Start: 02-25-2025 End: 03-18-2025 take 1 capsule by mouth three times daily Gabapentin 100 mg capsule Active 100 MG PO Three times daily March 18, 2025 9:47am Complies with drug therapy Start: 01-06-2025 gabapentin (Ne urontin) 100 MG capsule Indications: Paresthesias Take one cap every 8 hours or all at bedtime 90 capsule 2 01/06/2025 Active hydrocortisone 25 mg/ml topical cream (17 sources) Corticosteroid Start: 12-18-2022 Hydrocortisone (Perianal) 2.5 % 1 application Externally Twice a day for 30 days Dec, Active Start: 12-18-2022 Hydrocortisone (Perianal) 2.5 % 1 application Externally Twice a day for 30 days Dec, Active ibuprofen 800 mg oral tablet (20 sources) Nonsteroidal Anti-inflammatory Drug Start: 08-22-2024 take 1 tablet by mouth every eight hours as needed for pain Ibuprofen 800 mg tablet Active 0 .ROUTE .COMPLEX August 22, 2024 9:10am TAKE 1 TABLET BY MOUTH EVERY 8 HOURS NEEDED FOR PAIN Complies with drug therapy Start: 08-16-2023 End: 08-22-2024 take 1 tablet by mouth every eight hours as needed for pain Ibuprofen 800 mg tablet Discontinued 800 MG PO Every 8 hours as needed for pain June 25, 2024 12:00am August 22, 2024 9:10am Start: 08-16-2023 End: 04-01-2024 take 1 tablet by mouth once daily as needed for pain Ibuprofen 800 mg tablet Discontinued 800 MG PO Daily as needed for pain December 10, 2023 1:00pm April 01, 2024 8:45am Start: 08-16-2023 take 1 tablet by dave th four times daily as needed ibuprofen 800 MG tablet TAKE 1 TABLET BY MOUTH FOUR TIMES A DAY NEEDED 08/16/2023 Active Start: 05-16-2023 take 1 tablet by dave th every three hours at mealtime ibuprofen 800 mg Tab 800 mg = 1 tab(s), Oral, q3hr, with food or milk, # 30 tab(s), Refills(s) 3, Pharmacy: [facility]/pharmacy #[id number], 168, cm, 05/16/23 9:58:00 EDT, Height/Length Dosing, 52, kg, 05/16/23 9:58:00 EDT, Weight Dosing Start Date: 05/16/23 Status: Ordered Start: 04-04-2019 End: 12-10-2023 take 1 tablet by mouth every six hours as needed for pain Ibuprofen 800 mg tablet Discontinued 800 MG PO Q6H as needed for pain April 04, 2019 12:00am December 10, 2023 1:03pm methylPREDNISolone 4 mg oral tablet (8 sources) Corticosteroid Start: 03-23-2025 Methylpredniso lone 4 mg tablets,dose pack Active MG PO March 23, 2025 12:00am Complies with drug therapy Start: 01-16-2025 methylPREDNISo lone (Medrol Dospak) 4 MG tablets Indications: Muscle strain of left foot, initial encounter Follow schedule on package instructions 21 tablet 01/16/2025 Active 24 hr mirabegron 25 mg extended release oral tablet (1 source) beta3-Adrenergic Agonist take 1 tablet b y mouth every twenty-four hours Myrbetriq 25 MG 1 tablet Orally Once a day Active omeprazole 40 mg delayed release oral capsule (20 sources) Proton Pump Inhibitor Start: 03-07-20 End: 04-02-20 take 1 capsule by mouth once daily Omeprazole 40 mg capsule,delayed release(DR/EC) Active 40 MG PO Daily 90 90 April 02, 2025 8:59am Complies with drug therapy Start: 04-04-2019 End: 06-30-2024 take 1 capsule by mouth once daily Omeprazole 20 mg capsule,delayed release(DR/EC) Discontinued 20 MG PO Daily April 04, 2019 12:00am March 07, 2024 8:18am polysaccharide iron complex 391 mg oral capsule (20 sources) Start: 06-06-2024 take 1 capsule by mouth once daily iron polysaccharides (ProFe) 391.3 (180 Fe) MG capsule Indications: Iron deficiency Take 1 capsule (391.3 mg) by mouth Daily 90 capsule 3 06/06/2024 Active Start: 08-15-2023 take 1 capsule by mo [facility] twice daily iron polysaccharides (ProFe) 391.3 (180 Fe) MG capsule Indications: Iron deficiency TAKE 1 CAPSULE BY MOUTH TWICE A DAY FOR 30 DAYS 60 capsule 0 08/15/2023 Active Start: 07-14-2022 End: 09-20-2022 take 1 capsule by mouth once daily Polysaccharide Iron Complex (Pro Fe) 180 mg iron Capsule Active 180 MG PO Daily 90 90 September 20, 2022 1:00am Complies with drug therapy ProFe 180 mg oral capsule (10 sources) Start: 12-12-2022 ProFe 180 mg o ral capsule Refills(s) 0 Start Date: 12/12/22 Status: Ordered pyridoxine hydrochloride 25 mg oral tablet (20 sources) Start: 08-20-2024 take 1 tablet by mouth three times daily Pyridoxine (Vitamin B6) 25 mg tablet Active 25 MG PO Three times daily August 20, 2024 1:00am Complies with drug therapy Start: 08-04-2024 End: 08-20-2024 take 1 tablet by mouth once daily Pyridoxine (Vitamin B6) 10 mg tablet Discontinued 10 MG PO Daily August 04, 2024 12:00am August 20, 2024 10:15am Start: 08-04-2024 take 1 tablet by [facility] once daily Pyridoxine (Vitamin B6) 10 mg tablet Active 10 MG PO Daily August 04, 2024 12:00am Start: 07-17-2024 End: 10-15-2024 take 1 tablet by mouth every eight hours pyridoxine (Vitamin B-6) 25 MG tablet Indications: Mood swings TAKE 1 TABLET (25 MG) BY MOUTH EVERY 8 (EIGHT) HOURS 90 tablet 2 10/07/2024 Active sertraline 50 mg oral tablet (20 sources) Serotonin Reuptake Inhibitor Start: 03-18-2025 take 1 tablet by mouth once daily Sertraline 50 mg tablet Active 50 MG PO Daily March 18, 2025 12:00am Complies with drug therapy Start: 07-17-2024 End: 12-11-2024 take 1 tablet by mouth once daily Sertraline (Zoloft) 25 mg tablet Discontinued 25 MG PO Daily August 20, 2024 1:00am December 11, 2024 10:08am Spiriva Respimat (5 sources) Spiriva Respimat Active tiotropium 0.018 mg inhalation powder (20 sources) Anticholinergic Start: 02-06-2025 take 1 capsule by inhalation once daily Tiotropium [place] (Spiriva With Handihaler) 18 mcg capsule, w/inhalation device Active 1 CAP INHALATION Daily February 06, 2025 12:00am puncture 1 cap using device; one dose = 2 inhalations Complies with drug therapy Start: 01-10-2024 End: 07-14-2024 take 1 puff(s) by inhalation once daily Tiotropium [place] (Spiriva Respimat) 2.5 mcg/actuation mist Discontinued 2 PUFF INHALATION Daily January 10, 2024 12:00am July 14, 2024 9:03am Start: 01-01-2024 End: 02-02-2026 take 2 puff(s) by inhalation once daily tiotropium (Spiriva Respimat) 2.5 MCG/ACT inhaler Indications: Chronic obstructive pulmonary disease, unspecified COPD type (CMS/HCC) Inhale 2 puffs Daily 1 each 5 02/02/2025 02/02/2026 Active Start: 12-25-2023 End: 01-10-2024 tiotropium bromide Discontin ued INHALATION Daily December 24, 2023 11:00pm January 10, 2024 1:21pm Start: 12-25-2023 End: 01-10-2024 tiotropium bromide Discontin ued INHALATION Daily December 25, 2023 12:00am January 10, 2024 2:21pm Start: 12-25-2023 tiotropium [place] (Spiriva Respimat) Active INHALATION December 25, 2023 12:00am Start: 10-10-2023 End: 10-09-2024 take 2 puff(s) by inhalation in the morning tiotropium (Spiriva Respimat) 2.5 MCG/ACT inhaler Indications: Chronic obstructive pulmonary disease, unspecified COPD type (CMS/HCC) Inhale 2 puffs in the morning. 1 each 5 10/10/2023 10/09/2024 Active Tiotropium [place] (Spiriva With Handihaler) 18 mcg capsule, w/inhalation device (2 sources) Start: 02-06-2025 take 1 capsule by inhalation once daily Tiotropium [place] (Spiriva With Handihaler) 18 mcg capsule, w/inhalation device Active 1 CAP INHALATION Daily February 06, 2025 12:00am puncture 1 cap using device; one dose = 2 inhalations 24 hr tolterodine tartrate 2 mg extended release oral capsule (5 sources) Cholinergic Muscarinic Antagonist Start: 12-12-2022 take 1 capsule by mouth once daily Detrol LA 2 mg Cap-ER 2 mg = 1 cap(s), Oral, Daily, # 30 cap(s), Refills(s) 11, Pharmacy: [facility]/pharmacy #[id number], 168, cm, 12/12/22 8:36:00 EDT, Height/Length Dosing, 52.6, kg, 12/12/22 8:36:00 EDT, Weight Dosing Start Date: 12/12/22 Status: Ordered valACYclovir 500 mg oral tablet (20 sources) Herpesvirus Nucleoside Analog DNA Polymerase Inhibitor, Herpes Simplex Virus Nucleoside Analog DNA Polymerase Inhibitor, Herpes Zoster Virus Nucleoside Analog DNA Polymerase Inhibitor Start: 01-12-2025 End: 07-11-2025 take 1 tablet by mouth once daily Valacyclovir 500 mg tablet Active 500 MG PO Daily March 18, 2025 12:00am Complies with drug therapy Start: 07-10-2024 End: 07-10-2025 valACYclovir (Valtrex) 500 M G tablet Indications: Chronic vulvitis Take 1 tablet (500 mg) by mouth twice daily for 3 days. Then daily 30 tablet 5 07/10/2024 07/10/2025 Active varenicline 0.5 mg oral tablet (2 sources) Partial Cholinergic Nicotinic Agonist Start: 12-18-2022 take 1 tablet by mouth once daily APO-Varenicline 0.5 MG 1 tablet after eating with a full glass of water Orally Once a day for 30 days Dec, Active Completed/Discontinued Medications Medication Drug Class(es) Dates Sig (Normalized) Sig (Original) acetaminophen 325 mg / diphenhydrAMINE hydrochloride 50 mg oral tablet (11 sources) Histamine-1 Receptor Antagonist Start: 07-17-2024 End: 02-10-2025 diphenhydrAMINE-ac etaminophen (Unisom PM Pain) 50-325 MG tablet Indications: Insomnia, unspecified type Take 1 tablet by mouth as needed at bedtime for sleep 14 tablet 3 07/17/2024 02/10/2025 Discontinued acetaminophen 325 mg / oxyCODONE hydrochloride 5 mg oral tablet (20 sources) Opioid Agonist Start: 04-04-2019 End: 07-18-2022 take 1 tablet by mouth every four to six hours as needed for pain Oxycodone-Acetamin ophen (Percocet) 5-325 mg tablet Discontinued 1 TAB PO EVERY 4-6 HOURS as needed for pain 12 3 April 04, 2019 July 18, 2022 10:48am acyclovir 400 mg oral tablet (20 sources) Herpesvirus Nucleoside Analog DNA Polymerase Inhibitor, Herpes Simplex Virus Nucleoside Analog DNA Polymerase Inhibitor, Herpes Zoster Virus Nucleoside Analog DNA Polymerase Inhibitor Start: 02-04-2024 End: 03-18-2025 Acyclovir 400 mg tablet Discontinued 400 MG PO March 18, 2024 12:00am March 18, 2025 9:45am Start: 04-04-2019 End: 01-10-2024 take 1 capsule by mouth once daily Acyclovir 200 mg capsule Discontinued 200 MG PO Daily April 04, 2019 12:00am January 10, 2024 2:12pm take 1 tablet by dave th once daily acyclovir (Zovirax) 400 MG tablet TAKE 1 TABLET BY MOUTH EVERY DAY FOR 30 DAYS 0 Active ALPRAZolam 1 mg oral tablet (20 sources) Benzodiazepine Start: 04-01-2024 End: 03-24-2025 take 1 tablet by mouth twice daily as needed for anxiety Alprazolam 1 mg tablet Discontinued 1 MG PO Twice daily as needed for anxiety December 11, 2024 11:04am January 20, 2025 2:25pm Start: 04-04-2019 End: 01-07-2024 take 1 tablet by mouth at bedtime Alprazolam 1 mg tablet Discontinued 1 MG PO Bedtime December 10, 2023 1:01pm January 07, 2024 4:37pm Start: 04-04-2019 End: 04-01-2024 take 1 tablet by mouth once daily at bedtime as needed for sleep Alprazolam 1 mg tablet Discontinued 1 MG PO Daily at bedtime as needed for sleep March 19, 2024 12:19pm April 01, 2024 9:16am Start: 04-04-2019 End: 12-10-2023 take 1 mg by mouth at bedtime Alprazolam Active 1 MG P O Bedtime December 10, 2023 1:01pm amLODIPine 2.5 mg oral tablet (5 sources) Dihydropyridine Calcium Channel Fransisca Start: 03-28-2024 End: 07-01-2024 take 1 tablet by mouth once daily amLODIPine (Norvasc) 2.5 MG tablet Take 2.5 mg by mouth Daily 03/28/2024 07/01/2024 Discontinued (Med list cleanup) Start: 03-26-2024 take 1 tablet by dave th once daily amLODIPine 5 mg Tab 5 mg = 1 tab(s), Oral, Daily, # 30 tab(s), Refills(s) 2, Pharmacy: [facility]/pharmacy #[id number], 168, cm, 03/14/24 13:40:00 EDT, Height/Length Dosing, 52.2, kg, 03/14/24 13:46:00 EDT, Weight Dosing Start Date: 03/26/24 Status: Ordered amoxicillin 500 mg oral capsule (3 sources) Penicillin-class Antibacterial Start: 12-18-2023 End: 07-01-2024 amoxicillin (Amoxil) 500 MG capsule 12/18/2023 07/01/2024 Discontinued (Med list cleanup) amoxicillin 875 mg / clavulanate 125 mg oral tablet (15 sources) Penicillin-class Antibacterial Start: 07-14-2024 End: 08-04-2024 take 1 tablet by mouth twice daily Amoxicillin-Pot Clavulanate 875-125 mg tablet Discontinued 1 TAB PO Twice daily July 14, 2024 12:00am August 04, 2024 11:32am azithromycin 250 mg oral tablet (17 sources) Macrolide Antimicrobial Start: 08-20-2024 End: 12-11-2024 Azithromycin 250 mg tablet Discontinued 0 PO .COMPLEX August 20, 2024 1:00am December 11, 2024 10:06am For 250 mg dose pack: take 500 mg today (day 1), then 250 mg for 4 days (days 2-5) PO Start: 05-22-2023 Azithromycin 2 50 MG as directed Orally 2 tabs po today, then 1 tab daily x 4 more days for 5 May, Active cephalexin 500 mg oral capsule (20 sources) Cephalosporin Antibacterial Start: 04-04-2019 End: 07-14-2022 take 1 capsule by mouth every eight hours Cephalexin 500 mg capsule Discontinued 500 MG PO Q8H 21 April 04, 2019 12:00am July 14, 2022 2:49pm ciprofloxacin 500 mg oral tablet (7 sources) Quinolone Antimicrobial Start: 08-15-2022 Cipro 500 mg Tab 500 mg = 1 tab(s), Oral, As Directed, Pt to take 1 tab the day before procedure and the 2nd tab the day of procedure once completed., # 2 tab(s), Refills(s) 0, Pharmacy: [facility]/pharmacy #[id number], 168, cm, 08/09/22 9:45:00 EST, Height/Length Dosing, 52.6, kg... Start Date: 08/15/22 Status: Ordered take 1 tablet by dave every twelve hours Ciprofloxacin HCl 500 MG 1 tablet Orally every 12 hrs for 7 days Active diclofenac sodium 0.01 mg/mg topical gel (20 sources) Nonsteroidal Anti-inflammatory Drug Start: 12-04-2023 End: 03-18-2025 Diclofenac Sodium (Voltaren Arthritis Pain) 1 % gel Discontinued 0 TOPICAL Twice daily 100 December 04, 2023 12:00am March 18, 2025 9:46am 1-2 grams topically twice daily Start: 12-04-2023 Diclofenac Sod ium (Voltaren Arthritis Pain) 1 % gel Active 0 TOPICAL Twice daily 100 December 03, 2023 11:00pm 1-2 grams topically twice daily Start: 12-04-2023 Diclofenac Sod ium (Voltaren Arthritis Pain) 1 % gel Active 0 TOPICAL Twice daily 100 December 04, 2023 12:00am 1-2 grams topically twice daily doxepin 3 mg oral tablet (17 sources) Tricyclic Antidepressant Start: 07-22-2024 End: 08-04-2024 take 1 tablet by mouth once daily at bedtime as needed for sleep Doxepin 3 mg tablet Discontinued 3 MG PO Daily at bedtime as needed for sleep July 22, 2024 1:00am August 04, 2024 11:33am Start: 12-12-2023 End: 07-01-2024 take 1 capsule by mouth once daily in the evening as needed doxepin (SINEquan) 10 MG capsule TAKE 1 CAPSULE BY MOUTH EVERY EVENING NEEDED FOR ITCH 12/12/2023 07/01/2024 Discontinued (Med list cleanup) doxycycline hyclate 100 mg oral tablet (20 sources) Tetracycline-class Drug Start: 02-08-2024 End: 02-19-2024 take 1 tablet by mouth twice daily Doxycycline Hyclate 100 mg tablet Discontinued 100 MG PO Twice daily February 08, 2024 12:00am February 19, 2024 10:15am estradiol 0.1 mg/ml vaginal cream (4 sources) Estrogen Start: 09-14-2023 End: 07-01-2024 estradiol (Estrace) 0.1 MG/GM vaginal cream Indications: Vaginal atrophy 1 gm application daily at bedtime for 2 weeks, then 1 gm application 2 times/week. 34 g 1 09/14/2023 07/01/2024 Discontinued (Med list cleanup) estrogens, conjugated (nursing home) 0.625 mg / medroxyPROGESTERone acetate 5 mg oral tablet (10 sources) Progestin, Estrogen Start: 11-10-2024 End: 11-10-2025 take 0.625-5 mg by mouth once daily estrogen, conjugated,-medr oxyPROGESTERone (Prempro) 0.625-5 MG tablet Indications: Mood swings , Other fatigue , Vaginal atrophy Take 1 tablet by mouth Daily 90 tablet 3 11/10/2024 02/10/2025 Discontinued Norgestimate-Ethinyl Estradiol (20 sources) Progestin, Estrogen Start: 04-04-2019 End: 07-18-2022 Norgestimate-Eth inyl Estradiol (Sprintec (28)) 0.25-35 mg-mcg tablet Discontinued 1 TAB PO As Directed April 03, 2019 11:00pm July 18, 2022 9:48am Start: 04-04-2019 End: 07-18-2022 Norgestimate-Ethinyl Estradi ol (Sprintec (28)) 0.25-35 mg-mcg tablet Discontinued 1 TAB PO As Directed April 04, 2019 12:00am July 18, 2022 10:48am Start: 04-04-2019 Norgestimate-E thinyl Estradiol (Sprintec (28)) 0.25-35 mg-mcg tablet Active 1 TAB PO As Directed April 04, 2019 12:00am fluconazole 150 mg oral tablet (20 sources) Azole Antifungal Start: 07-14-2024 End: 08-04-2024 Fluconazole 150 mg tablet Discontinued 150 MG PO Q3D July 14, 2024 12:00am August 04, 2024 11:33am Start: 10-06-2023 End: 07-01-2024 take 1 tablet by mouth in the morning fluconazole (Diflucan) 150 MG tablet Indications: Chronic obstructive pulmonary disease, unspecified COPD type (CMS/HCC) Take 1 tablet (150 mg) by mouth in the morning. 1 tablet 1 10/06/2023 07/01/2024 Discontinued (Med list cleanup) Start: 07-03-2023 take 1 tablet by mouth once Fl uconazole 150 MG 1 tablet Orally once for 1 days Jun, Active Start: 04-04-2019 End: 07-18-2022 take 1 tablet by mouth once daily Fluconazole (Diflucan) 150 mg tablet Discontinued 150 MG PO Daily 1 April 04, 2019 3:15pm July 18, 2022 10:48am administer on day 1 of therapy fluorouracil 50 mg/ml topical cream (3 sources) Nucleoside Metabolic Inhibitor Start: 05-02-2024 End: 07-01-2024 fluorouracil (Efudex) 5 % cream APPLY TO FACE EVERY NIGHT [id number].TAKE A WEEK OFF & REPEAT DAILY X2 MORE WEEKS.*START IN JUNE* 05/02/2024 07/01/2024 Discontinued (Med list cleanup) ketoconazole 20 mg/ml medicated shampoo (3 sources) Azole Antifungal Start: 04-21-2024 End: 07-01-2024 ketoconazole (NIZOral) 2 % shampoo WASH THE SCALP ONCE DAILY LEAVE ON FOR 5 MINUTES THEN RINSE OFF THEN WASH NORMAL 04/21/2024 07/01/2024 Discontinued (Med list cleanup) meloxicam 15 mg oral tablet (20 sources) Nonsteroidal Anti-inflammatory Drug Start: 05-13-2024 End: 07-01-2024 take 1 tablet by mouth once daily Meloxicam 15 mg tablet Discontinued 15 MG PO Daily May 13, 2024 12:00am May 13, 2024 8:36am Start: 09-04-2023 take 1 tablet by dave th every twenty-four hours Meloxicam 15 MG 1 tablet Orally Once a day for 30 days Aug, Active 24 hr metoprolol succinate 25 mg extended release oral tablet (20 sources) beta-Adrenergic Fransisca Start: 01-10-2024 End: 02-19-2024 take 1 tablet by mouth every twenty-four hours Metoprolol Succinate 25 mg tablet extended release 24 hr Discontinued MG PO January 10, 2024 12:00am February 19, 2024 10:15am Start: 01-10-2024 End: 02-19-2024 Metoprolol Succinate Discont inued MG PO January 09, 2024 11:00pm February 19, 2024 9:15am Multivitamin (Multiple Vitamin) Tablet (20 sources) Start: 07-14-2022 End: 12-10-2023 take 1 tablet by mouth once daily Multivitamin (Multiple Vitamin) Tablet Discontinued 1 TAB PO Daily July 13, 2022 11:00pm December 10, 2023 9:28am Start: 07-14-2022 End: 12-10-2023 take 1 tablet by mouth once daily Multivitamin (Multiple Vitamin) Tablet Discontinued 1 TAB PO Daily July 14, 2022 12:00am December 10, 2023 10:28am Start: 07-14-2022 take 1 tablet by dave th once daily Multivitamin (Multiple Vitamin) Tablet Active 1 TAB PO Daily July 13, 2022 11:00pm Start: 07-14-2022 take 1 tablet by dave th once daily Multivitamin (Multiple Vitamin) Tablet Active 1 TAB PO Daily July 14, 2022 12:00am prazosin 5 mg oral capsule (20 sources) alpha-Adrenergic Fransisca Start: 11-03-2024 prazo sin (Minipress) 5 MG capsule 11/03/2024 Active Start: 09-23-2024 End: 03-18-2025 take 1 capsule by mouth in the evening as needed Prazosin 5 mg capsule Discontinued 0 .ROUTE .COMPLEX as needed December 11, 2024 10:07am March 18, 2025 9:43am TAKE 1 CAPSULE BY MOUTH IN THE EVENING PRN; Start: 08-20-2024 End: 09-23-2024 take 1 capsule by mouth once daily in the evening Prazosin 5 mg capsule Discontinued 5 MG PO Every evening August 20, 2024 11:19am September 23, 2024 1:12pm Start: 07-19-2024 End: 07-22-2024 take 1 capsule by mouth once daily in the evening Prazosin 5 mg capsule Discontinued 5 MG PO Every evening July 19, 2024 12:00am July 22, 2024 9:35am predniSONE 5 mg oral tablet (20 sources) Start: 12-04-2023 End: 12-10-2023 Prednisone 5 mg tablet Discontinued 5 MG PO As Directed 04 04December 04, 2023 12:00am December 10, 2023 10:28am Take 4 pills by mouth x2 days, take 3 pills by mouth x2 days, take 2 pills by mouth x2 days, take 1 pill by mouth x1 day. propylene glycol liquid external solution (3 sources) Start: 05-20-2024 End: 07-01-2024 propylene glycol liquid exte rnal solution 05/20/2024 07/01/2024 Discontinued (Med list cleanup) Start: 05-20-2024 propylene glyc ol liquid external solution 05/20/2024 Active teepee splint right thumb (20 sources) Start: 01-08-2024 End: 01-10-2024 teepee splint right thumb Discontinued 0 .Route .MEDSUPPLY January 08, 2024 3:12pm January 10, 2024 1:21pm As directed Start: 01-08-2024 End: 01-10-2024 teepee splint right thumb Di scontinued 0 .Route .MEDSUPPLY January 08, 2024 4:12pm January 10, 2024 2:21pm As directed Start: 01-08-2024 End: 01-08-2024 teepee splint right thumb Di scontinued 0 .Route .MEDSUPPLY January 07, 2024 11:00pm January 08, 2024 3:12pm As directed Start: 01-08-2024 End: 01-08-2024 teepee splint right thumb Di scontinued 0 .Route .MEDSUPPLY January 08, 2024 12:00am January 08, 2024 4:12pm As directed Start: 01-08-2024 teepee splint right thumb Active 0 .Route .MEDSUPPLY January 08, 2024 12:00am As directed teepee splint- right thumb (20 sources) Start: 03-18-2024 End: 08-20-2024 teepee splint- right thumb Discontinued 0 .Route .MEDSUPPLY March 18, 2024 8:41am August 20, 2024 11:16am As directed. Please specialty order. Start: 03-18-2024 End: 08-20-2024 teepee splint- right thumb D iscontinued 0 .Route .MEDSUPPLY 1 March 18, 2024 7:41am August 20, 2024 10:16am As directed. Please specialty order. Start: 03-18-2024 teepee splint- right thumb Active 0 .Route .MEDSUPPLY March 18, 2024 7:41am As directed. Please specialty order. Start: 03-18-2024 teepee splint- right thumb Active 0 .Route .MEDSUPPLY March 18, 2024 8:41am As directed. Please specialty order. Start: 02-12-2024 End: 03-18-2024 teepee splint- right thumb D iscontinued 0 .Route .MEDSUPPLY February 11, 2024 11:00pm March 18, 2024 7:41am As directed. Please specialty order. Start: 02-12-2024 End: 03-18-2024 teepee splint- right thumb D iscontinued 0 .Route .MEDSUPPLY February 12, 2024 12:00am March 18, 2024 8:41am As directed. Please specialty order. Start: 02-12-2024 teepee splint- right thumb Active 0 .Route .MEDSUPPLY February 12, 2024 12:00am As directed. Please specialty order. traMADol hydrochloride 50 mg oral tablet (20 sources) Opioid Agonist Start: 11-16-2023 End: 03-24-2025 take 1 tablet by mouth twice daily as needed for pain Tramadol 50 mg tablet Discontinued 50 MG PO Twice daily as needed for pain 50 December 11, 2024 11:03am January 20, 2025 2:25pm Start: 11-16-2023 End: 08-26-2024 take 1 tablet by mouth three times daily as needed Tramadol 50 mg tablet Discontinued 50 MG PO Three times daily as needed March 21, 2024 12:00am March 21, 2024 3:51pm Start: 08-20-2023 traMADol HCl 5 0 MG TAKE 1 TABLET BY MOUTH THREE TIMES A DAY NEEDED FOR 30 DAYS for 30 Aug, Active Start: 07-05-2023 traMADol HCl 5 0 MG TAKE 1 TABLET BY MOUTH THREE TIMES A DAY NEEDED FOR 30 DAYS for 30 Jun, Active Start: 07-03-2023 take 1 tablet by dave th every eight hours traMADol HCl 50 MG 1 tablet as needed Orally tid for 30 days Jun, Active Start: 05-11-2023 take 1 tablet by dave th every eight hours traMADol HCl 50 MG 1 tablet as needed Orally tid for 30 days Apr, Active Start: 03-30-2023 take 1 tablet by dave th every eight hours traMADol HCl 50 MG 1 tablet as needed Orally tid for 30 days Mar, Active Start: 02-23-2023 take 1 tablet by dave th every twelve hours traMADol HCl 50 MG 1 tablet as needed Orally bid for 30 days Feb, Active Start: 04-04-2019 End: 07-18-2022 take 1 tablet by mouth once daily Tramadol 50 mg tablet Discontinued 50 MG PO Daily April 04, 2019 12:00am July 18, 2022 10:49am triamcinolone acetonide 1 mg/ml topical cream (20 sources) Corticosteroid Start: 05-02-2024 End: 07-01-2024 triamcinolone (Kenalog) 0.1 % cream Indications: Acute vulvitis Apply topically 2 (two) times a day 15 g 05/02/2024 07/01/2024 Discontinued (Med list cleanup) Start: 02-02-2023 Kenalog-40 Apr, 60 mg Start: 11-14-2022 Kenalog-40 Oct, 40 mg vitamin b12 0.25 mg oral tablet (4 sources) Vitamin B12 End: 07-01-2024 take 1 tablet by mouth in the morning cyancobalamine (Vitamin B-12) 250 MCG tablet Take 250 mcg by mouth in the morning. 07/01/2024 Discontinued (Med list cleanup) vitamin b6 10 mg oral tablet (11 sources) Start: 08-04-2024 End: 08-20-2024 take 1 tablet by mouth once daily Pyridoxine (Vitamin B6) 10 mg tablet Discontinued 10 MG PO Daily August 04, 2024 1:00am August 20, 2024 11:15am Vitamin E (20 sources) Start: 12-25-2023 End: 08-04-2024 take 1 tablet by mouth once daily vitamin E (dl, acetate) Discontinued 1 TAB PO Daily December 25, 2023 12:00am August 04, 2024 11:33am Start: 12-25-2023 End: 08-04-2024 take 1 tablet by mouth once daily vitamin E (dl, acetate) Discontinued 1 TAB PO Daily December 24, 2023 11:00pm August 04, 2024 10:33am Start: 12-25-2023 take 1 tablet by dave th once daily vitamin E (dl, acetate) Active 1 TAB PO Daily December 24, 2023 11:00pm Start: 12-25-2023 take 1 tablet by dave th once daily vitamin E (dl, acetate) Active 1 TAB PO Daily December 25, 2023 12:00am Start: 12-25-2023 vitamin E (dl, acetate) Active PO December 25, 2023 12:00am Problems Active Problems Problem Classification Problem Date Documented Da te Episodic/Chronic Abdominal pain (20 sources) Abdominal pain; Translations: [Unspecified abdominal pain] Onset: 9 Resolved: 4 Episodic Anxiety disorders (20 sources) Anxiety; Translations: [Anxiety disorder, unspecified] Onset: 5 Chronic Chronic obstructive pulmonary disease and bronchiectasis (20 sources) Chronic obstructive lung disease; Translations: [Chronic obstructive pulmonary disease, unspecified] Onset: 3 07-18-2023 Chronic Deficiency and other anemia (20 sources) Iron deficiency anemia; Translations: [Iron deficiency anemia, unspecified] Onset: 4 Resolved: 4 07-18-2022 Episodic Deficiency and other anemia (6 sources) Iron deficiency anemia, unspecified; Translations: [Iron deficiency anemia, unspecified] Onset: 5 09-20-2022 Episodic Deficiency and other anemia (20 sources) Anemia; Translations: [Anemia, unspecified] 01-08-2025 Episodic Deficiency and other anemia (6 sources) Other iron deficiency anemias; Translations: [OTHER IRON DEFICIENCY ANEMIAS] Onset: 3 Episodic Deficiency and other anemia (2 sources) Anemia, unspecified; Translations: [Anemia, unspecified] Episodic Diseases of white blood cells (13 sources) Leukocytosis; Translations: [Leukocytosis, unspecified] Onset: 7 Chronic Disorders of teeth and jaw (20 sources) Arthralgia of temporomandibular joint; Translations: [Arthralgia of temporomandibular joint, unspecified side] Onset: 7 Episodic E Codes: Natural/environment (1 source) Overexertion from prolonged static or awkward postures, initial encounter; Translations: [OVEREXERT PROLNG STAT/AWK PST INIT] Onset: 3 Episodic Esophageal disorders (17 sources) Gastro-esophageal reflux disease with esophagitis; Translations: [Gastroesophageal reflux disease with esophagitis without hemorrhage] Chronic Esophageal disorders (13 sources) Esophageal disorders; Translations: [Gastroesophageal reflux disease with esophagitis without hemorrhage] Essential hypertension (20 sources) Hypertensive disorder; Translations: [Essential (primary) hypertension] Chronic Fracture of lower limb (13 sources) Nondisplaced fracture of fifth metatarsal bone, right foot, subsequent encounter for fracture with routine healing; Translations: [Nondisplaced fracture of fifth metatarsal bone, right foot, subsequent encounter for fracture with routine healing] Episodic Genitourinary symptoms and ill-defined conditions (20 sources) Sensation as if bladder still full; Translations: [Feeling of incomplete bladder emptying] Onset: 9 Episodic Headache; including migraine (19 sources) Migraine without aura, not refractory ; Translations: [Migraine, unspecified, not intractable, without status migrainosus] Onset: 4 03-18-2025 Chronic Hemorrhoids (20 sources) External hemorrhoids; Translations: [Residual hemorrhoidal skin tags] Episodic Joint disorders and dislocations; trauma-related (20 sources) Dislocation of temporomandibular joint; Translations: [Dislocation of jaw, unspecified side, initial encounter] 11-16-2023 Episodic Menopausal disorders (12 sources) Menopausal flushing; Translations: [Menopausal and female climacteric states] 12-15-2024 Chronic Mood disorders (3 sources) Mood swings; Translations: [Emotional lability] 07-17-2024 Episodic Neoplasms of unspecified nature or uncertain behavior (4 sources) Neoplasm of muscle; Translations: [Benign neoplasm of connective and other soft tissue, unspecified] 01-12-2025 Episodic Nutritional deficiencies (20 sources) Vitamin D deficiency; Translations: [Vitamin D deficiency, unspecified] Onset: 3 Chronic Nutritional deficiencies (20 sources) Iron deficiency; Translations: [Iron deficiency] 07-18-2022 Episodic Open wounds of extremities (13 sources) Late effect of open wound of extremities without tendon injury; Translations: [Unspecified open wound of unspecified toe(s) with damage to nail, sequela] Episodic Osteoarthritis (20 sources) Arthritis of first carpometacarpal joint of right hand; Translations: [Unilateral primary osteoarthritis of first carpometacarpal joint, right hand] Onset: 4 Resolved: 4 12-04-2023 Chronic Other aftercare (1 source) Other snf (current) drug therapy; Translations: [[employer] CURRENT DRUG THERAPY] Onset: 3 Episodic Other circulatory disease (1 source) Raynaud's phenomenon; Translations: [Raynaud's syndrome without gangrene] Onset: 4 Chronic Other circulatory disease (15 sources) Raynaud's disease; Translations: [Raynaud's syndrome without gangrene] 07-14-2024 Chronic Other circulatory disease (5 sources) Raynaud's syndrome without gangrene; Translations: [Raynaud's syndrome] Onset: 4 07-14-2024 Chronic Other circulatory disease (12 sources) Elevated blood-pressure reading without diagnosis of hypertension; Translations: [Elevated blood-pressure reading, without diagnosis of hypertension] Episodic Other circulatory disease (1 source) Elevated blood-pressure reading, without diagnosis of hypertension; Translations: [Elevated blood-pressure reading, without diagnosis of hypertension] Episodic Other congenital anomalies (11 sources) Congenital anomaly of eye; 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, unspecified] 10-15-2024 Chronic Other congenital anomalies (5 sources) Congenital malformation of eye, unspecified; Translations: [Unspecified anomaly of eye] Onset: 5 12-11-2024 Chronic Other connective tissue disease (20 sources) Spasm; Translations: [Other muscle spasm] Episodic Other connective tissue disease (20 sources) Pain in limb; Translations: [Pain in right foot] Episodic Other connective tissue disease (4 sources) Pain in right foot; Translations: [PAIN IN RIGHT FOOT] Onset: 3 Episodic Other connective tissue disease (1 source) Pain in left foot; Translations: [PAIN IN LEFT FOOT] Onset: 3 Episodic Other connective tissue disease (15 sources) Pain in right foot; Translations: [Pain in right foot] 04-02-2025 Episodic Other connective tissue disease (7 sources) Pain in right hand; Translations: [Pain in limb] Episodic Other connective tissue disease (1 source) Pain in right toe(s); Translations: [Pain in right toe(s)] Episodic Other connective tissue disease (5 sources) Pain in left toe(s); Translations: [Pain in limb] 12-26-2024 Episodic Other connective tissue disease (20 sources) Hand pain; Translations: [Pain in right hand] 12-04-2023 Episodic Other connective tissue disease (20 sources) Tenosynovitis of right radial styloid; Translations: [Radial styloid tenosynovitis [de Quervain]] Onset: 4 Resolved: 4 12-04-2023 Episodic Other connective tissue disease (20 sources) Radial styloid tenosynovitis [de Quervain]; Translations: [Radial styloid tenosynovitis] 12-04-2023 Episodic Other connective tissue disease (20 sources) Pain in right hand; Translations: [Pain in right hand] Onset: 4 Resolved: 4 12-28-2023 Episodic Other connective tissue disease (6 sources) Pain in toe; Translations: [Pain in left toe(s)] 12-26-2024 Episodic Other connective tissue disease (2 sources) Pain in both feet; Translations: [Pain in right foot] 01-19-2025 Episodic Other connective tissue disease (15 sources) Muscle pain; Translations: [Myalgia, unspecified site] 02-25-2025 Episodic Other connective tissue disease (1 source) Myalgia, unspecified site; Translations: [Myalgia and myositis, unspecified] 02-25-2025 Episodic Other connective tissue disease (8 sources) Pain of toe of left foot; Translations: [Pain in left toe(s)] 12-26-2024 Episodic Other eye disorders (11 sources) Pain in eye; Translations: [Ocular pain, unspecified eye] 10-15-2024 Episodic Other female genital disorders (20 sources) H/O: menorrhagia; Translations: [Personal history of other diseases of the female genital tract] Onset: Resolved: 09-20-2022 Episodic Other female genital disorders (1 source) History of gynecological disorder; Translations: [Personal history of other diseases of the female genital tract] 07-03-2024 Episodic Other female genital disorders (2 sources) Vaginal discharge; Translations: [Other specified noninflammatory disorders of vagina] 07-03-2024 Episodic Other female genital disorders (1 source) Pruritus of vagina; Translations: [Other specified noninflammatory disorders of vagina] 07-17-2024 Episodic Other female genital disorders (4 sources) Personal history of other diseases of the female genital tract; Translations: [Personal history of other genital system and obstetric disorders] 08-04-2024 Episodic Other gastrointestinal disorders (20 sources) Adult form of celiac disease; Translations: [Celiac disease] Onset: 4 Resolved: 4 07-18-2022 Chronic Other gastrointestinal disorders (1 source) Celiac disease; Translations: [Celiac disease] 09-20-2022 Chronic Other gastrointestinal disorders (1 source) Constipation, unspecified; Translations: [Constipation, unspecified] Onset: Episodic Other gastrointestinal disorders (6 sources) Constipation 05-16-2023 Episodic Other gastrointestinal disorders (20 sources) Abdominal bloating; Translations: [Abdominal distension (gaseous)] 12-25-2023 Episodic Other hematologic conditions (20 sources) Other abnormality of red blood cells; Translations: [Abnormality of red blood cells] Episodic Other hereditary and degenerative nervous system conditions (20 sources) Restless legs; Translations: [Restless legs syndrome] Onset: 4 Resolved: 4 07-18-2022 Chronic Other hereditary and degenerative nervous system conditions (2 sources) Restless legs syndrome; Translations: [Restless legs syndrome (RLS)] 09-20-2022 Chronic Other injuries and conditions due to external causes (10 sources) Other injury of unspecified body region, initial encounter; Translations: [Bruising] Episodic Other injuries and conditions due to external causes (7 sources) Unspecified injury of right wrist, hand and finger(s), initial encounter; Translations: [Finger injury] Episodic Other injuries and conditions due to external causes (20 sources) Thumb injury ; Translations: [Unspecified injury of right wrist, hand and finger(s), initial encounter] 12-04-2023 Episodic Other lower respiratory disease (4 sources) Chronic cough; Translations: [CHRONIC COUGH] Onset: 3 Episodic Other lower respiratory disease (20 sources) Cough; Translations: [Cough] Onset: 8 Episodic Other nervous system disorders (17 sources) Chronic pain; Translations: [Other chronic pain] 02-25-2025 Chronic Other nervous system disorders (3 sources) Other chronic pain; Translations: [Other chronic pain] Chronic Other nervous system disorders (4 sources) Paresthesia of skin; Translations: [PARESTHESIA OF SKIN] Onset: 3 Episodic Other nervous system disorders (8 sources) Paresthesia; Translations: [Paresthesia of skin] 01-06-2025 Episodic Other nervous system disorders (6 sources) Allodynia; Translations: [Other disturbances of skin sensation] 03-18-2025 Episodic Other non-traumatic joint disorders (20 sources) Pain in wrist; Translations: [Pain in right wrist] 12-04-2023 Episodic Other non-traumatic joint disorders (20 sources) Pain in right wrist; Translations: [Pain in joint, forearm] 12-04-2023 Episodic Other non-traumatic joint disorders (20 sources) Pain of right wrist; Translations: [Pain in right wrist] Onset: 4 Resolved: 4 12-28-2023 Episodic Other nutritional; endocrine; and metabolic disorders (16 sources) Abnormal weight loss; Translations: [Abnormal weight loss] Episodic Other nutritional; endocrine; and metabolic disorders (13 sources) Abnormal weight gain; Translations: [Abnormal weight gain] Episodic Other nutritional; endocrine; and metabolic disorders (13 sources) Body mass index less than 20; Translations: [Body mass index (BMI) 19.9 or less, adult] Episodic Other nutritional; endocrine; and metabolic disorders (1 source) Abnormal weight gain Episodic Other nutritional; endocrine; and metabolic disorders (1 source) Abnormal weight loss; Translations: [Abnormal weight loss] Episodic Other screening for suspected conditions (not mental disorders or infectious disease) (12 sources) Other specified abnormal findings of blood chemistry; Translations: [Patient encounter status] Episodic Other skin disorders (8 sources) Disorder of skin; Translations: [Other skin changes] 03-03-2025 Episodic Other upper respiratory disease (20 sources) Seasonal allergic rhinitis; Translations: [Other seasonal allergic rhinitis] Chronic Other upper respiratory disease (3 sources) Other seasonal allergic rhinitis; Translations: [Other seasonal allergic rhinitis] Chronic Other upper respiratory disease (20 sources) Allergic rhinitis; Translations: [Allergic rhinitis, unspecified] Onset: 3 Resolved: 3 07-18-2023 Chronic Other upper respiratory infections (13 sources) Chronic sinusitis; Translations: [Chronic sinusitis, unspecified] Chronic Ovarian cyst (3 sources) Cyst of bilateral ovaries; Translations: [Unspecified ovarian cyst, right side] 07-17-2024 Episodic Residual codes; unclassified (20 sources) Insomnia; Translations: [Insomnia, unspecified] Onset: 9 07-17-2024 Episodic Residual codes; unclassified (2 sources) Flushing; Translations: [FLUSHING] Onset: 3 Episodic Residual codes; unclassified (20 sources) Unspecified donor, other blood; Translations: [Blood donor] 09-20-2022 Episodic Residual codes; unclassified (13 sources) Postprocedural state finding; Translations: [Other specified postprocedural states] Episodic Residual codes; unclassified (13 sources) Family history of ischemic heart disease; Translations: [Family history of ischemic heart disease and other diseases of the circulatory system] Episodic Residual codes; unclassified (16 sources) Insomnia, unspecified; Translations: [Persistent disorder of initiating or maintaining sleep] 12-10-2023 Episodic Residual codes; unclassified (20 sources) Persistent insomnia; Translations: [Insomnia, unspecified] Onset: 4 Resolved: 4 12-10-2023 Episodic Residual codes; unclassified (3 sources) History of endometrial ablation; Translations: [Other specified postprocedural states] 07-03-2024 Episodic Residual codes; unclassified (2 sources) Menopause present; Translations: [Asymptomatic menopausal state] 01-08-2025 Episodic Spondylosis; intervertebral disc disorders; other back problems (13 sources) Cervical spondylosis; Translations: [Spondylosis without myelopathy or radiculopathy, cervical region] Chronic Spondylosis; intervertebral disc disorders; other back problems (20 sources) Pain in thoracic spine; Translations: [Pain in thoracic spine] Onset: 7 Episodic Sprains and strains (16 sources) Unspecified sprain of right foot, initial encounter; Translations: [Sprain of right ankle] Onset: 3 01-16-2025 Episodic Substance-related disorders (20 sources) Nicotine dependence; Translations: [Nicotine dependence, unspecified, uncomplicated] Onset: 2 Chronic Comment on above: Added secondary to d ocumentation in Social History. Unclassified (11 sources) Finding of sensation of bladder 08-09-2022 Unclassified (3 sources) CONTACT W/AND (SUSP) EXPOS COVID-19; Translations: [CONTACT W/AND (SUSP) EXPOS COVID-19] Onset: 2 Urinary tract infections (20 sources) Postinfective urethral stricture of female; Translations: [Postinfective urethral stricture, not elsewhere classified, female] Onset: 2 Episodic Viral infection (20 sources) Viremia; Translations: [Viral infection, unspecified] Onset: 2 01-12-2025 Episodic Past or Other Problems Problem Classification Problem Date Documented Da te Episodic/Chronic Acute bronchitis (13 sources) Acute bronchitis; Translations: [Acute bronchitis, unspecified] Onset: 5 Episodic Allergic reactions (13 sources) Contact dermatitis; Translations: [Contact dermatitis and other eczema, due to unspecified cause] Onset: 7 Episodic Bacterial infection; unspecified site (12 sources) Bacterial infectious disease; Translations: [Bacterial infection, unspecified, in conditions classified elsewhere and of unspecified site] Onset: 8 Episodic Biliary tract disease (19 sources) Other specified diseases of gallbladder; Translations: [Disorder of gallbladder] Onset: 4 Episodic Endometriosis (18 sources) Endometriosis of uterus; Translations: [Endometriosis of uterus] Onset: 9 Resolved: 3 07-18-2023 Chronic Genitourinary symptoms and ill-defined conditions (20 sources) Mixed incontinence; Translations: [Incontinence] Onset: 2 Resolved: 4 Chronic Inflammatory diseases of female pelvic organs (20 sources) Chronic vaginitis; Translations: [Subacute and chronic vaginitis] Onset: 3 Resolved: 3 07-18-2023 Episodic Menstrual disorders (20 sources) Dysmenorrhea; Translations: [Dysmenorrhea, unspecified] Onset: 3 Resolved: 3 07-18-2023 Chronic Mood disorders (18 sources) Bipolar II disorder; Translations: [Bipolar II disorder] Onset: 3 Resolved: 3 07-18-2023 Chronic Nonspecific chest pain (14 sources) Chest pain, unspecified; Translations: [Chest pain] Onset: 8 Episodic Other connective tissue disease (13 sources) Lateral epicondylitis; Translations: [Lateral epicondylitis of elbow] Onset: 6 Episodic Other connective tissue disease (17 sources) Peroneal tendinitis of right lower limb; Translations: [Peroneal tendinitis, right leg] Onset: 4 Resolved: 4 12-28-2023 Episodic Other eye disorders (1 source) Ocular pain, unspecified eye; Translations: [Ocular pain, unspecified eye] Onset: 5 Episodic Other female genital disorders (18 sources) Cervical intraepithelial neoplasia grade 1; Translations: [Mild cervical dysplasia] Onset: 3 Resolved: 3 07-18-2023 Episodic Other gastrointestinal disorders (5 sources) Abdominal distension (gaseous); Translations: [Flatulence, eructation, and gas pain] Onset: 4 07-14-2024 Episodic Other inflammatory condition of skin (13 sources) Sunburn of second degree; Translations: [Sunburn of second degree] Onset: 4 Episodic Other inflammatory condition of skin (13 sources) Solar erythema; Translations: [Contact dermatitis and other eczema due to sunburn] Onset: 4 Episodic Other injuries and conditions due to external causes (13 sources) Traumatic AND/OR non-traumatic injury; Translations: [Other injury of unspecified body region] Onset: 4 Episodic Other skin disorders (13 sources) Atrophoderma; 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] Onset: 5 Episodic Other upper respiratory disease (18 sources) 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; Translations: [Other allergic rhinitis] Onset: 3 Resolved: 3 07-18-2023 Chronic Other upper respiratory infections (20 sources) Acute maxillary sinusitis; Translations: [Acute recurrent maxillary sinusitis] Onset: 4 Episodic Residual codes; unclassified (12 sources) Tobacco user; Translations: [Nondependent tobacco use disorder] Onset: 5 Episodic Residual codes; unclassified (1 source) Early satiety; Translations: [Early satiety] Onset: 4 Episodic Screening and history of mental health and substance abuse codes (12 sources) History of tobacco use; Translations: [Personal history of tobacco use, presenting hazards to health] Onset: 8 Episodic Superficial injury; contusion (20 sources) Contusion of right foot; Translations: [Contusion of right foot, initial encounter] Onset: 4 Resolved: 4 12-28-2023 Episodic Unclassified (1 source) CONTACT W/AND (SUSP) EXPOS COVID-19; Translations: [CONTACT W/AND (SUSP) EXPOS COVID-19] Onset: 2 Unclassified (1 source) Chronic cough R05.3 Unclassified (1 source) Allergic rhinitis, cause unspecified; Translations: [Allergic rhinitis, cause unspecified] Unclassified (1 source) Unspecified backache; Translations: [Unspecified backache] Onset: 7 Unclassified (1 source) Personal history of tobacco use, presenting hazards to health; Translations: [Personal history of tobacco use, presenting hazards to health] Onset: 8 Unclassified (1 source) Nondependent tobacco use disorder; Translations: [Nondependent tobacco use disorder] Onset: 5 Unclassified (1 source) Bacterial infection, unspecified, in conditions classified elsewhere and of unspecified site; Translations: [Bacterial infection, unspecified, in conditions classified elsewhere and of unspecified site] Onset: 8 Viral infection (18 sources) Genital herpes simplex; Translations: [Herpesviral infection of urogenital system, unspecified] Onset: 0 Resolved: 3 07-18-2023 Chronic Results Test Name Value Interpretation Reference Range Facility Laboratory - Chemistry and C hemistry - challengeOrdered By: Fernanda Concepcion on 03-10-2025 Cobalamin (Vitamin B12) [Mass/Vol] 1187 pg/mL 232-1245 [facility] Comment on above: Performed at: [address] Director: Andres Arboleda PhD, Phone: [phone] No Panel InformationOrdered By: Fernanda Concepcion on 03-10-2025 Folate 38.50 ng/mL 8.60-58.90 [facility] Basophils Auto (Bld) [#/Vol] Ordered By: Ute Griffin on 01-27-2025 Basophils (Bld) [#/Vol] Automated basophil count 0.0-0.2 [facility] Basophils/100 WBC Auto (Bld) Ordered By: Ute Griffin on 01-27-2025 Basophils/100 WBC (Bld) Automated basophil % . [facility] Complete Blood Count Auto Di ffon 01-27-2025 Basophils (Bld) [#/Vol] 0.1 10*3/uL Normal 0.0-0.2 [facility] Comment on above: Result Comment: PERF ORMED BY: [facility] [address] [place] [address] PATHOLOGIST [employer] SUPER[employer] ANTONIO PEREA M.D. Performed By: #### F ER, CBC, FE and TIBC ####[address] Basophils/100 WBC (Bld) 1.2 % Normal . [facility] Comment on above: Performed By: #### F ER, CBC, FE and TIBC ####[address] Eosinophils (Bld) [#/Vol] 0.0 10*3/uL Normal 0.0-0.45 [facility] Comment on above: Performed By: #### F ER, CBC, FE and TIBC ####[address] Eosinophils/100 WBC (Bld) 0.5 % Normal . [facility] Comment on above: Performed By: #### F ER, CBC, FE and TIBC ####[address] Erythrocyte distribution width (RBC) [Ratio] 13.2 % Normal 11.9-15.3 [facility] Comment on above: Performed By: #### F ER, CBC, FE and TIBC ####[address] Hematocrit (Bld) [Volume fraction] 41.5 % Normal 34.0-46.4 [facility] Comment on above: Performed By: #### F ER, CBC, FE and TIBC ####[address] Hemoglobin (Bld) [Mass/Vol] 14.4 g/dL Normal 11.8-15.4 [facility] Comment on above: Performed By: #### F ER, CBC, FE and TIBC ####[address] Lymphocytes (Bld) [#/Vol] 1.9 10*3/uL Normal 1.00-4.8 [facility] Comment on above: Performed By: #### F ER, CBC, FE and TIBC ####[address] Lymphocytes/100 WBC (Bld) 25.6 % Normal . [facility] Comment on above: Performed By: #### F ER, CBC, FE and TIBC ####[address] MCH (RBC) [Entitic mass] 35.1 pg High 24.7-34.3 [facility] Comment on above: Performed By: #### F ER, CBC, FE and TIBC ####[address] MCV (RBC) [Entitic vol] 101.2 fL High 80-100 [facility] Comment on above: Performed By: #### F ER, CBC, FE and TIBC ####[address] Mean Corpuscular HGB Conc 34.6 g/dL Normal 32.0-35.0 [facility] Comment on above: Performed By: #### F ER, CBC, FE and TIBC ####[address] Monocytes (Bld) [#/Vol] 0.3 10*3/uL Normal 0.0-0.8 [facility] Comment on above: Performed By: #### F ER, CBC, FE and TIBC ####[address] Monocytes/100 WBC (Bld) 4.4 % Normal . [facility] Comment on above: Performed By: #### F ER, CBC, FE and TIBC ####[address] Neutrophils (Bld) [#/Vol] 4.9 10*3/uL Normal 1.8-7.7 [facility] Comment on above: Performed By: #### F ER, CBC, FE and TIBC ####[address] Neutrophils/100 WBC (Bld) 68.3 % Normal . [facility] Comment on above: Performed By: #### F ER, CBC, FE and TIBC ####[address] NRBC% 0.1 /100{WBC} Normal 0-0.5 [facility] Comment on above: Performed By: #### F ER, CBC, FE and TIBC ####[address] Platelet mean volume (Bld) [Entitic vol] 7.7 fL Normal 6.3-10.7 [facility] Comment on above: Performed By: #### F ER, CBC, FE and TIBC ####[address] Platelets (Bld) [#/Vol] 234 10*3/uL Normal 150-450 [facility] Comment on above: Performed By: #### F ER, CBC, FE and TIBC ####[address] RBC (Bld) [#/Vol] 4.10 10*6/uL Normal 3.60-5.00 [facility] Comment on above: Performed By: #### F ER, CBC, FE and TIBC ####[address] WBC (Bld) [#/Vol] 7.2 10*3/uL Normal 3.8-11.6 [facility] Comment on above: Performed By: #### F ER, CBC, FE and TIBC ####[address] Eosinophils Auto (Bld) [#/Vo l]Ordered By: Ute Griffin on 01-27-2025 Eosinophils (Bld) [#/Vol] Automated eosinophil count 0.0-0.45 [facility] Eosinophils/100 WBC Auto (Bl d)Ordered By: Ute Griffin on 01-27-2025 Eosinophils/100 WBC (Bld) Automated eosinophil % . [facility] Erythrocyte distribution wid th Auto (RBC) [Ratio]Ordered By: Ute Griffin on 01-27-2025 Erythrocyte distribution width (RBC) [Ratio] Erythrocyte distribution width [Ratio] by Automated count 11.9-15.3 [facility] Ferritinon 01-27-2025 Ferritin [Mass/Vol] 30.5 ng/mL Normal 11.0-306.8 [facility] Comment on above: Result Comment: PERF ORMED BY: [facility] [address] [place] [address] PATHOLOGIST [employer] SUPER[employer] ANTONIO PEREA M.D. Performed By: #### F ER, CBC, FE and TIBC ####[address] [id number] [place] [address] [facility] Ferritin [Mass/volume] in Se rum or PlasmaOrdered By: Ute Griffin on 01-27-2025 Ferritin [Mass/Vol] Ferritin [Mass/volum e] in Serum or Plasma 11.0-306.8 [facility] Hematocrit Auto (Bld) [Volum e fraction]Ordered By: Ute Griffin on 01-27-2025 Hematocrit (Bld) [Volume fraction] Hematocrit [Volume Fraction] of Blood by Automated count 34.0-46.4 [facility] Hemoglobin [Mass/volume] in BloodOrdered By: Ute Griffin on 01-27-2025 Hemoglobin (Bld) [Mass/Vol] Hemoglobin [Mass/volume] in Blood 11.8-15.4 [facility] Iron [Mass/volume] in Serum or PlasmaOrdered By: Ute Griffin on 01-27-2025 Iron [Mass/Vol] Iron [Mass/volume] i n Serum or Plasma 50-212 [facility] Iron and TIBC Profileon 01-15 % Iron Saturation 46.7 % Normal 20-50 [facility] Comment on above: Performed By: #### F ER, CBC, FE and TIBC ####[address] [address] [facility] Iron [Mass/Vol] 151 ug/dL Normal 50-212 [facility] Comment on above: Performed By: #### F ER, CBC, FE and TIBC ####[address] [address] [facility] Total Iron Binding Capacity 323 ug/dL Normal 255-450 [facility] Comment on above: Performed By: #### F ER, CBC, FE and TIBC ####[facility] [id number] [place] [id number] [facility] Transferrin [Mass/Vol] 231 mg/dL Normal 203-362 [facility] Comment on above: Performed By: #### F ER, CBC, FE and TIBC ####[facility] [id number] [place] [id number] [facility] Leukocytes [#/volume] correc gilson for nucleated erythrocytes in Blood by Automated counOrdered By: Ute Griffin on 01-27-2025 WBC corrected for nucl RBC Auto (Bld) [#/Vol] Leukocytes [#/volume] corrected for nucleated erythrocytes in Blood by Automated coun 3.8-11.6 [facility] Lymphocytes Auto (Bld) [#/Vo l]Ordered By: Ute Griffin on 01-27-2025 Lymphocytes (Bld) [#/Vol] Lymphocytes [#/volume] in Blood by Automated count 1.00-4.8 [facility] Lymphocytes/100 WBC Auto (Bl d)Ordered By: Ute Griffin on 01-27-2025 Lymphocytes/100 WBC (Bld) Lymphocytes/100 leukocytes in Blood by Automated count . [facility] MCH Auto (RBC) [Entitic mass ]Ordered By: Ute Griffin on 01-27-2025 MCH (RBC) [Entitic mass] MCH [Entitic mass] by Automated count High 24.7-34.3 [facility] MCHC Auto (RBC) [Mass/Vol]Or dered By: Ute Griffin on 01-27-2025 MCHC (RBC) [Mass/Vol] MCHC [Mass/volume] by Automated count 32.0-35.0 [facility] MCV Auto (RBC) [Entitic vol] Ordered By: Ute Griffin on 01-27-2025 MCV (RBC) [Entitic vol] MCV [Entitic volume] by Automated count High 80-100 [facility] Monocytes Auto (Bld) [#/Vol] Ordered By: Ute Griffin on 01-27-2025 Monocytes (Bld) [#/Vol] Automated blood monocyte count 0.0-0.8 [facility] Monocytes/100 WBC Auto (Bld) Ordered By: Ute Griffin on 01-27-2025 Monocytes/100 WBC (Bld) Automated monocyte % . [facility] Neutrophils Auto (Bld) [#/Vo l]Ordered By: Ute Griffin on 01-27-2025 Neutrophils (Bld) [#/Vol] Neutrophils [#/volume] in Blood by Automated count 1.8-7.7 [facility] Neutrophils/100 WBC Auto (Bl d)Ordered By: Ute Griffin on 01-27-2025 Neutrophils/100 WBC (Bld) Automated neutrophil % . [facility] Nucleated erythrocytes [Pres ence] in Blood by Automated countOrdered By: Ute Griffin on 01-27-2025 Nucleated RBC Auto Ql (Bld) Nucleated erythrocytes [Presence] in Blood by Automated count 0-0.5 [facility] Platelet mean volume Auto (B ld) [Entitic vol]Ordered By: Ute Griffin on 01-27-2025 Platelet mean volume (Bld) [Entitic vol] Platelet mean volume [Entitic volume] in Blood by Automated count 6.3-10.7 [facility] Platelets Auto (Bld) [#/Vol] Ordered By: Ute Griffin on 01-27-2025 Platelets (Bld) [#/Vol] Platelets [#/volume] in Blood by Automated count 150-450 [facility] RBC Auto (Bld) [#/Vol]Ordere d By: Ute Griffin on 01-27-2025 RBC (Bld) [#/Vol] Erythrocytes [#/volu me] in Blood by Automated count 3.60-5.00 [facility] Serum or plasma iron binding capacity measurement (mass/volume)Ordered By: Ute Griffin on 01-27-2025 Iron binding capacity [Mass/Vol] Iron binding capacity [Mass/volume] in Serum or Plasma 255-450 [facility] Serum or plasma iron saturat ion measurement (mass fraction)Ordered By: Ute Griffin on 01-27-2025 Iron saturation [Mass fraction] Iron saturation [Mass Fraction] in Serum or Plasma 20-50 [facility] Transferrin [Mass/volume] in Serum or PlasmaOrdered By: Ute Griffin on 01-27-2025 Transferrin [Mass/Vol] Transferrin [Mass/volume] in Serum or Plasma 203-362 [facility] WBC Auto (Bld) [#/Vol]Ordere d By: Ute Griffin on 01-27-2025 WBC (Bld) [#/Vol] Leukocytes [#/volume ] in Blood by Automated count 3.8-11.6 [facility] X-ray reportOrdered By: Hermes Mcmillan on 01-27-2025 Study report [facility] [address] [place] [id number] XRay Report Signed Patient: Katy Banuelso MR#: [id number] : 1975 Acct:[id number] Age/Sex: 50 / F ADM Date: 5 Loc: XDS Room: Type: REG CLI Attending Dr: Marta [...] Jr., D.OJf 01/27/2025 2:32 PM Dictation Location: [place] [address] Transcribed By: [facility] 01/27/25 1432 Dictated By: Freedom Mcmillan Jr, DO 01/27/25 1432 Signed By: 01/27/25 1432 [facility] XR chest 2V*on 01-27-2025 XR chest 2V* [facility] [address] [place] [id number] XRay Report Signed Patient: Katy Banuelos MR#: [id number] : 1975 Acct:[id number] Age/Sex: 50 / F ADM Date: 01/27/25 [facility] CLI Attending Dr: Marta Hernandez DO [...] ABNORMALITY. Impression dictated by: Freedom Mcmillan Jr., DPatricia 01/27/2025 2:32 PM Dictation Location: [facility]--22 Transcribed By: [facility] 01/27/25 1432 Dictated By: Freedom Mcmillan Jr, DO 01/27/25 1432 Signed By: 01/27/25 1432 Normal [facility] No Panel Informationon 01-16 Markel Yanez LPN 01/19/2025 9:08 PM Splint Application Date/Time: 01/16/2025 6:50 PM Performed by: Markel Yanez LPN Authorized by: Markel Vicente NP Consent: Consent obtained: Verbal Consent given by: Patient Procedure details: Location: Foot Foot location: L foot Supplies: Prefabricated splint Attestation: Splint applied and adjusted personally by me Comments: Pt and provider signed DME form. Pt provided with left foot cam boot. Ref # [id number] [facility] XR FOOT 3+ VIEWS LEFTon XR FOOT 3+ VIEWS LEFT Title of exam: XR FOOT 3+ VIEWS [...] report is generated using voice recognition reporting ([employer]). On occasion, [employer] erroneously drops words from the report or replaces the spoken word with a similar sounding word. Please call with any questions/concerns regarding the report. Normal Not Available XR Foot - left 3 Viewson Title of exam: XR FOOT 3+ VIEWS [...] report is generated using voice recognition reporting ([employer]). On occasion, [employer] erroneously drops words from the report or replaces the spoken word with a similar sounding word. Please call with any questions/concerns regarding the report. Adonay Patterson MD - 01/16/2025 Title of exam: XR [...] report is generated using voice recognition reporting ([employer]). On occasion, [employer] erroneously drops words from the report or replaces the spoken word with a similar sounding word. Please call with any questions/concerns regarding the report. [facility] Radiology Study observation (narrative) [facility] XR Foot - left 3 ViewsOrdere d By: Adonay Lawrence on 01-16-2025 [facility] Work Phone: Laboratory - Cytologyon 12-18 Associate Professor Of Art History Cyto stain Nom (Cvx/Vag) [ID] Comment [facility] Comment on above: Delmi Egan ologist (ASCP) Cytology report Cyto stain Doc (Cvx/Vag) Comment [facility] Comment on above: NEGATIVE FOR INTRAEP ITHELIAL LESION OR MALIGNANCY. Cytology report Cyto stain.thin prep Doc (Cvx/Vag) Comment [facility] Comment on above: This liquid based Th inPrep(R) pap test was screened with the use of an image guided system. Statement of adequacy Cyto stain (Cvx/Vag) [Interp] Comment [facility] Comment on above: Satisfactory for philip luation. Endocervical and/or squamous metaplastic cells (endocervical component) are present. Laboratory - Microbiology an d Antimicrobial susceptibilityon 01-14-2025 HPV 16+18+31+33+35+39+45+ 51+52+56+58+59+66+68 DNA Probe+sig amp Ql (Cvx) Negative Negative [facility] Comment on above: This nucleic acid am plification test detects fourteen high- risk HPV types (16,18,31,33,35,39,45,51,52,56,58,59,66,68) without differentiation. Microscopic observation Other stain Nom ([facility] spec) . [facility] Laboratory - Miscellaneous t estson 01-14-2025 Service comment (Unsp spec) [Interp] Comment [facility] Comment on above: The Pap smear is a s creening test designed to aid in the detection of premalignant and malignant conditions of the uterine cervix. It is not a diagnostic procedure and should not be used as the sole means of detecting cervical cancer. Both false-positive and false-negative reports do occur. No Panel Informationon 01-14 Diagnosis ICD code [Identifier] Comment [facility] Comment on above: Z01.419 Z12.4 Performed at: - L [facility] Cyto Histo [address] [place], [place] [id number] [employer] Tender: Antony Dunne MD, Phone: [phone] Performed at: 02 - [facility] [id number] [employer] Tender: Faviola Wade MD, Phone: [phone] Performed at: 03 - [facility] [id number] [employer] Tender: Faviola Wade MD, Phone: [phone] Specimen Comment: No. of containers..01 [facility] - Chemistry and C hemistry - challengeon 01-13-2025 Cancer Ag 125 Qn 7.5 [arb'U]/mL 0.0 - 38. 1 U/mL [facility] Comment on above: [facility] El ectrochemiluminescence Immunoassay (ECLIA) Values obtained with different assay methods or kits cannot be used interchangeably. Results cannot be interpreted as absolute evidence of the presence or absence of malignant disease. Carcinoembryonic Ag [Mass/Vol] 3.6 ng/mL 0.0 - 4.7 ng/mL [facility] Comment on above: Nonsmokers <3.9 Smokers <5.6 [facility] Electrochemiluminescence Immunoassay (ECLIA) Values obtained with different assay methods or kits cannot be used interchangeably. Results cannot be interpreted as absolute evidence of the presence or absence of malignant disease. Follitropin Qn 49.6 m[IU]/mL mIU/mL [facility] Comment on above: Adult Female Range Follicular phase 3.5 - 12.5 Ovulation phase 4.7 - 21.5 Luteal phase 1.7 - 7.7 Postmenopausal 25.8 - 134.8 No Panel Informationon 01-13 Performed at: [address] [id number] [employer] Tender: Andres Arboleda PhD, Phone: [phone] [facility] - Chemistry and C hemistry - challengeon 11-10-2024 Free T4 [Mass/Vol] 0.92 ng/dL 0.76-1.46 [facility] TSH Qn 0.850 m[IU]/L 0.358-3.74 0 [facility] No Panel Informationon 11-10 Miscellaneous Test COMMENT . [facility] Comment on above: Test Ordered: [id number] AChR Binding Abs, SerumAChR Binding Abs, Serum <0.03 nmol/L Reference Range: 0.00-0.24 Negative: 0.00 - 0.24 Borderline: 0.25 - 0.40 Positive: >0.40Performed at: [facility] [id number] Director: Rikki Robert MD, Phone: [phone] at: [facility], [place] [id number] Director: Andres Arboleda PhD, Phone: [phone] Test Ordered: [id number] AChR Blocking Abs, SerumAChR Blocking Abs, Serum 13 % BN Reference Range: 0-25This test was developed and its performance characteristicsdetermined by [employer]. It has not been cleared orapproved by the Food and Drug Administration. Negative: 0 - 25 Borderline: 26 - 30 Positive: >30Performed at: [address] [id number] Director: Rikki Robert MD, Phone: [phone] at: [address] [id number] Director: Andres Arboleda PhD, Phone: [phone] Serum or plasma thyroglobuli n antibody assay (units/volume)on 11-10-2024 Thyroglobulin Ab Qn Serum or plasma thyroglobulin antibody assay (units/volume) 0.0-0.9 [facility] Comment on above: Thyroglobulin Antibo dy measured by Sasha OombaMethodologyIt should be noted that the presence of thyroglobulinantibodies may not be pathogenic nor diagnostic, especiallyat very low levels. The assay relief salesperson has found thatfour percent of individuals without evidence of thyroiddisease or autoimmunity will have positive TgAb levels upto 4 IU/mL.Performed at: [address] [id number] Director: Andres Arboleda PhD, Phone: [phone] Serum or plasma thyroperoxid ase antibody assay (units/volume)on 11-10-2024 TPO Ab Qn Serum or plasma thyroperoxidase antibody assay (units/volume) 0-34 [facility] MR head/brain wo/w conon MR head/brain wo/w con 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 The ventricles are normal in size and position. There are no areas of abnormal signal intensity or enhancement within the supra or infratentorial brain. There is no restricted diffusion to suggest a recent ischemic event. No extra-axial collections or mass effect are seen. No midline abnormalities are noted. No definite focal orbital abnormalities.. MR/MR head/brain wo/w con IMPRESSION: Essentially unremarkable MRI brain performed with and without contrast the patient's age. Impression dictated by: Fantasma Figueroa M.D.11/05/2024 5:42 PM Dictation Location: [place] [address] Transcribed By: [facility] 11/05/24 174 Dictated By: Fantasma Figueroa MD 11/05/24 1735 Signed By: 11/05/24 174 Normal [facility] Magnetic resonance imaging r eportOrdered By: Fantamsa Figueroa on 11-05-2024 Study report [facility] [place] [address] MRI Report Signed Patient: Katy Banuelos MR#: [id number] : 1975 Acct:[id number] Age/Sex: 49 / F ADM Date: 5 Loc: MR Room: Type: REG CLI Attending Dr: Fernanda Concepcion MD Copies to: Fernanda Concepcion MD~ Ordering Provider: Fernanda Concepcion MD Date of Service: 11/05/24 MR/MR head/brain wo/w con: 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 The ventricles are normal in size and position. There are no areas of abnormal signal intensity or enhancement within the supra or infratentorial brain. Thereis no restricted diffusion to suggest a recent ischemic event. No extra-axial collections or mass effect are seen. No midline abnormalities are noted. No definite focal orbital abnormalities.. MR/MR head/brain wo/w con IMPRESSION: Essentially unremarkable MRI brain performed with and without contrast the patient's age. Impression dictated by: Fantasma Figueroa M.D.11/05/2024 5:42 PM Dictation Location: [place] [address] Transcribed By: [facility] 11/05/241741 Dictated By: Fantasma Figueroa MD 11/05/241734 Signed By: 11/05/241741 [facility] Work Phone: Basophils Auto (Bld) [#/Vol] Ordered By: Ute Griffin on 10-14-2024 Basophils (Bld) [#/Vol] Automated basophil count 0.0-0.2 [facility] Basophils/100 WBC Auto (Bld) Ordered By: Ute Griffin on 10-14-2024 Basophils/100 WBC (Bld) Automated basophil % . [facility] Complete Blood Count Auto Di ffon 10-14-2024 Basophils (Bld) [#/Vol] 0.1 10*3/uL Normal 0.0-0.2 [facility] Comment on above: Result Comment: PERF ORMED BY: [place] [address] PATHOLOGIST [employer] SUPERVISOR ANTONIO PEREA M.D. Performed By: #### F ER, FE and TIBC, CBC #### [facility] [address] [place] [address] Basophils/100 WBC (Bld) 0.9 % Normal . [facility] Comment on above: Performed By: #### F ER, FE and TIBC, CBC #### [facility] [address] [place] [address] [place] Eosinophils (Bld) [#/Vol] 0.1 10*3/uL Normal 0.0-0.45 [facility] Comment on above: Performed By: #### F ER, FE and TIBC, CBC #### [address] Eosinophils/100 WBC (Bld) 0.9 % Normal . [facility] Comment on above: Performed By: #### F ER, FE and TIBC, CBC #### [address] Erythrocyte distribution width (RBC) [Ratio] 14.4 % Normal 11.9-15.3 [facility] Comment on above: Performed By: #### F ER, FE and TIBC, CBC #### [address] Hematocrit (Bld) [Volume fraction] 39.2 % Normal 34.0-46.4 [facility] Comment on above: Performed By: #### F ER, FE and TIBC, CBC #### [address] Hemoglobin (Bld) [Mass/Vol] 13.7 g/dL Normal 11.8-15.4 [facility] Comment on above: Performed By: #### F ER, FE and TIBC, CBC #### [address] Lymphocytes (Bld) [#/Vol] 1.4 10*3/uL Normal 1.00-4.8 [facility] Comment on above: Performed By: #### F ER, FE and TIBC, CBC #### [address] Lymphocytes/100 WBC (Bld) 21.4 % Normal . [facility] Comment on above: Performed By: #### F ER, FE and TIBC, CBC #### [address] MCH (RBC) [Entitic mass] 34.7 pg High 24.7-34.3 [facility] Comment on above: Performed By: #### F ER, FE and TIBC, CBC #### [address] MCV (RBC) [Entitic vol] 99.4 fL Normal 80-100 [facility] Comment on above: Performed By: #### F ER, FE and TIBC, CBC #### [address] Mean Corpuscular HGB Conc 34.9 g/dL Normal 32.0-35.0 [facility] Comment on above: Performed By: #### F ER, FE and TIBC, CBC #### [address] Monocytes (Bld) [#/Vol] 0.4 10*3/uL Normal 0.0-0.8 [facility] Comment on above: Performed By: #### F ER, FE and TIBC, CBC #### [address] Monocytes/100 WBC (Bld) 5.4 % Normal . [facility] Comment on above: Performed By: #### F ER, FE and TIBC, CBC #### [address] Neutrophils (Bld) [#/Vol] 4.7 10*3/uL Normal 1.8-7.7 [facility] Comment on above: Performed By: #### F ER, FE and TIBC, CBC #### [address] Neutrophils/100 WBC (Bld) 71.4 % Normal . [facility] Comment on above: Performed By: #### F ER, FE and TIBC, CBC #### [address] NRBC% 0.1 /100{WBC} Normal 0-0.5 [facility] Comment on above: Performed By: #### F ER, FE and TIBC, CBC #### [address] Platelet mean volume (Bld) [Entitic vol] 7.7 fL Normal 6.3-10.7 [facility] Comment on above: Performed By: #### F ER, FE and TIBC, CBC #### [facility] [address] Platelets (Bld) [#/Vol] 242 10*3/uL Normal 150-450 [facility] Comment on above: Performed By: #### F ER, FE and TIBC, CBC #### [facility] [address] RBC (Bld) [#/Vol] 3.95 10*6/uL Normal 3.60-5.00 [facility] Comment on above: Performed By: #### F ER, FE and TIBC, CBC #### [facility] [address] WBC (Bld) [#/Vol] 6.6 10*3/uL Normal 3.8-11.6 [facility] Comment on above: Performed By: #### F ER, FE and TIBC, CBC #### [facility] [address] Eosinophils Auto (Bld) [#/Vo l]Ordered By: Ute Griffin on 10-14-2024 Eosinophils (Bld) [#/Vol] Automated eosinophil count 0.0-0.45 [facility] Eosinophils/100 WBC Auto (Bl d)Ordered By: Ute Griffin on 10-14-2024 Eosinophils/100 WBC (Bld) Automated eosinophil % . [facility] Erythrocyte distribution wid th Auto (RBC) [Ratio]Ordered By: Ute Griffin on 10-14-2024 Erythrocyte distribution width (RBC) [Ratio] Erythrocyte distribution width [Ratio] by Automated count 11.9-15.3 [facility] Ferritinon 10-14-2024 Ferritin [Mass/Vol] 55.8 ng/mL Normal 11.0-306.8 [facility] Comment on above: Result Comment: PERF ORMED BY: [address] [place] [address] PATHOLOGIST [employer] SUPERVISOR ANTONIO PEREA M.D. Performed By: #### F ER, FE and TIBC, CBC #### [address] Ferritin [Mass/volume] in Se rum or PlasmaOrdered By: Ute Griffin on 10-14-2024 Ferritin [Mass/Vol] Ferritin [Mass/volum e] in Serum or Plasma 11.0-306.8 [facility] Hematocrit Auto (Bld) [Volum e fraction]Ordered By: Ute Griffin on 10-14-2024 Hematocrit (Bld) [Volume fraction] Hematocrit [Volume Fraction] of Blood by Automated count 34.0-46.4 [facility] Hemoglobin [Mass/volume] in BloodOrdered By: Ute Griffin on 10-14-2024 Hemoglobin (Bld) [Mass/Vol] Hemoglobin [Mass/volume] in Blood 11.8-15.4 [facility] Iron [Mass/volume] in Serum or PlasmaOrdered By: Ute Griffin on 10-14-2024 Iron [Mass/Vol] Iron [Mass/volume] i n Serum or Plasma 50-212 [facility] Iron and TIBC Profileon 09-18 % Iron Saturation 46.4 % Normal 20-50 [facility] Comment on above: Performed By: #### F ER, FE and TIBC, CBC #### [place] [id number] [facility] Iron [Mass/Vol] 140 ug/dL Normal 50-212 [facility] Comment on above: Performed By: #### F ER, FE and TIBC, CBC #### [place] [id number] [facility] Total Iron Binding Capacity 302 ug/dL Normal 255-450 [facility] Comment on above: Performed By: #### F ER, FE and TIBC, CBC #### [place] [id number] [facility] Transferrin [Mass/Vol] 216 mg/dL Normal 203-362 [facility] Comment on above: Performed By: #### F ER, FE and TIBC, CBC #### [address] [place] [address] [facility] Leukocytes [#/volume] correc gilson for nucleated erythrocytes in Blood by Automated counOrdered By: Ute Griffin on 10-14-2024 WBC corrected for nucl RBC Auto (Bld) [#/Vol] Leukocytes [#/volume] corrected for nucleated erythrocytes in Blood by Automated coun 3.8-11.6 [facility] Lymphocytes Auto (Bld) [#/Vo l]Ordered By: Ute Griffin on 10-14-2024 Lymphocytes (Bld) [#/Vol] Lymphocytes [#/volume] in Blood by Automated count 1.00-4.8 [facility] Lymphocytes/100 WBC Auto (Bl d)Ordered By: Ute Griffin on 10-14-2024 Lymphocytes/100 WBC (Bld) Lymphocytes/100 leukocytes in Blood by Automated count . [facility] MCH Auto (RBC) [Entitic mass ]Ordered By: Ute Griffin on 10-14-2024 MCH (RBC) [Entitic mass] MCH [Entitic mass] by Automated count High 24.7-34.3 [facility] MCHC Auto (RBC) [Mass/Vol]Or dered By: Ute Griffin on 10-14-2024 MCHC (RBC) [Mass/Vol] MCHC [Mass/volume] by Automated count 32.0-35.0 [facility] MCV Auto (RBC) [Entitic vol] Ordered By: Ute Griffin on 10-14-2024 MCV (RBC) [Entitic vol] MCV [Entitic volume] by Automated count 80-100 [facility] Monocytes Auto (Bld) [#/Vol] Ordered By: Ute Griffin on 10-14-2024 Monocytes (Bld) [#/Vol] Automated blood monocyte count 0.0-0.8 [facility] Monocytes/100 WBC Auto (Bld) Ordered By: Ute Griffin on 10-14-2024 Monocytes/100 WBC (Bld) Automated monocyte % . [facility] Neutrophils Auto (Bld) [#/Vo l]Ordered By: Ute Griffin on 10-14-2024 Neutrophils (Bld) [#/Vol] Neutrophils [#/volume] in Blood by Automated count 1.8-7.7 [facility] Neutrophils/100 WBC Auto (Bl d)Ordered By: Ute Griffin on 10-14-2024 Neutrophils/100 WBC (Bld) Automated neutrophil % . [facility] Nucleated erythrocytes [Pres ence] in Blood by Automated countOrdered By: Ute Griffin on 10-14-2024 Nucleated RBC Auto Ql (Bld) Nucleated erythrocytes [Presence] in Blood by Automated count 0-0.5 [facility] Platelet mean volume Auto (B ld) [Entitic vol]Ordered By: Ute Griffin on 10-14-2024 Platelet mean volume (Bld) [Entitic vol] Platelet mean volume [Entitic volume] in Blood by Automated count 6.3-10.7 [facility] Platelets Auto (Bld) [#/Vol] Ordered By: Ute Griffin on 10-14-2024 Platelets (Bld) [#/Vol] Platelets [#/volume] in Blood by Automated count 150-450 [facility] RBC Auto (Bld) [#/Vol]Ordere d By: Ute Griffin on 10-14-2024 RBC (Bld) [#/Vol] Erythrocytes [#/volu me] in Blood by Automated count 3.60-5.00 [facility] Serum or plasma iron binding capacity measurement (mass/volume)Ordered By: Ute Griffin on 10-14-2024 Iron binding capacity [Mass/Vol] Iron binding capacity [Mass/volume] in Serum or Plasma 255-450 [facility] Serum or plasma iron saturat ion measurement (mass fraction)Ordered By: Ute Griffin on 10-14-2024 Iron saturation [Mass fraction] Iron saturation [Mass Fraction] in Serum or Plasma 20-50 [facility] Transferrin [Mass/volume] in Serum or PlasmaOrdered By: Ute Griffin on 10-14-2024 Transferrin [Mass/Vol] Transferrin [Mass/volume] in Serum or Plasma 203-362 [facility] WBC Auto (Bld) [#/Vol]Ordere d By: Ute Griffin on 10-14-2024 WBC (Bld) [#/Vol] Leukocytes [#/volume ] in Blood by Automated count 3.8-11.6 [facility] Basophils Auto (Bld) [#/Vol] Ordered By: Ute Griffin on 08-04-2024 Basophils (Bld) [#/Vol] Automated basophil count 0.0-0.2 [facility] Basophils/100 WBC Auto (Bld) Ordered By: Ute Griffin on 08-04-2024 Basophils/100 WBC (Bld) Automated basophil % . [facility] Complete Blood Count Auto Di ffon 08-04-2024 Basophils (Bld) [#/Vol] 0.1 10*3/uL Normal 0.0-0.2 [facility] Comment on above: Result Comment: PERF ORMED BY: [place] [address] PATHOLOGIST [employer] SUPERVISOR ANTONIO PEREA M.D. Performed By: #### C BC, BENNY, FE and TIBC #### [address] Basophils/100 WBC (Bld) 1.3 % Normal . [facility] Comment on above: Performed By: #### C BC, BENNY, FE and TIBC #### [address] Eosinophils (Bld) [#/Vol] 0.0 10*3/uL Normal 0.0-0.45 [facility] Comment on above: Performed By: #### C BC, BENNY, FE and TIBC #### [address] Eosinophils/100 WBC (Bld) 0.6 % Normal . [facility] Comment on above: Performed By: #### C BC, BENNY, FE and TIBC #### [address] Erythrocyte distribution width (RBC) [Ratio] 16.4 % High 11.9-15.3 [facility] Comment on above: Performed By: #### C BC, BENNY, FE and TIBC #### [address] Hematocrit (Bld) [Volume fraction] 32.9 % Low 34.0-46.4 [facility] Comment on above: Performed By: #### C BC, BENNY, FE and TIBC #### [address] Hemoglobin (Bld) [Mass/Vol] 11.1 g/dL Low 11.8-15.4 [facility] Comment on above: Performed By: #### C BC, BENNY, FE and TIBC #### [address] Lymphocytes (Bld) [#/Vol] 1.4 10*3/uL Normal 1.00-4.8 [facility] Comment on above: Performed By: #### C BC, BENNY, FE and TIBC #### [address] Lymphocytes/100 WBC (Bld) 21.1 % Normal . [facility] Comment on above: Performed By: #### C BC, BENNY, FE and TIBC #### [address] MCH (RBC) [Entitic mass] 32.0 pg Normal 24.7-34.3 [facility] Comment on above: Performed By: #### C BC, BENNY, FE and TIBC #### [address] MCV (RBC) [Entitic vol] 94.4 fL Normal 80-100 [facility] Comment on above: Performed By: #### C BC, BENNY, FE and TIBC #### [address] Mean Corpuscular HGB Conc 33.9 g/dL Normal 32.0-35.0 [facility] Comment on above: Performed By: #### C BC, BENNY, FE and TIBC #### [address] Monocytes (Bld) [#/Vol] 0.4 10*3/uL Normal 0.0-0.8 [facility] Comment on above: Performed By: #### C BC, BENNY, FE and TIBC #### [address] Monocytes/100 WBC (Bld) 5.3 % Normal . [facility] Comment on above: Performed By: #### C BC, BENNY, FE and TIBC #### [address] Neutrophils (Bld) [#/Vol] 4.8 10*3/uL Normal 1.8-7.7 [facility] Comment on above: Performed By: #### C BC, BENNY, FE and TIBC #### [address] Neutrophils/100 WBC (Bld) 71.7 % Normal . [facility] Comment on above: Performed By: #### C BC, BENNY, FE and TIBC #### [address] NRBC% 0.0 /100{WBC} Normal 0-0.5 [facility] Comment on above: Performed By: #### C BC, BENNY, FE and TIBC #### [address] Platelet mean volume (Bld) [Entitic vol] 7.6 fL Normal 6.3-10.7 [facility] Comment on above: Performed By: #### C BC, BENNY, FE and TIBC #### [address] Platelets (Bld) [#/Vol] 223 10*3/uL Normal 150-450 [facility] Comment on above: Performed By: #### C BC, BENNY, FE and TIBC #### [address] RBC (Bld) [#/Vol] 3.49 10*6/uL Low 3.60-5.00 [facility] Comment on above: Performed By: #### C BC, BENNY, FE and TIBC #### [address] WBC (Bld) [#/Vol] 6.7 10*3/uL Normal 3.8-11.6 [facility] Comment on above: Performed By: #### C BC, BENNY, FE and TIBC #### [facility] [address] Eosinophils Auto (Bld) [#/Vo l]Ordered By: Ute Griffin on 08-04-2024 Eosinophils (Bld) [#/Vol] Automated eosinophil count 0.0-0.45 [facility] Eosinophils/100 WBC Auto (Bl d)Ordered By: Ute Griffin on 08-04-2024 Eosinophils/100 WBC (Bld) Automated eosinophil % . [facility] Erythrocyte distribution wid th Auto (RBC) [Ratio]Ordered By: Ute Griffin on 08-04-2024 Erythrocyte distribution width (RBC) [Ratio] Erythrocyte distribution width [Ratio] by Automated count High 11.9-15.3 [facility] Ferritinon 08-04-2024 Ferritin [Mass/Vol] 5.2 ng/mL Low 11.0-306.8 [facility] Comment on above: Result Comment: PERF ORMED BY: [facility] [address] [place] [address] PATHOLOGIST [employer] SUPERVISOR ANTONIO PEREA M.D. Performed By: #### C BC, BENNY, FE and TIBC #### [address] Ferritin [Mass/volume] in Se rum or PlasmaOrdered By: Ute Griffin on 08-04-2024 Ferritin [Mass/Vol] Ferritin [Mass/volum e] in Serum or Plasma Low 11.0-306.8 [facility] Hematocrit Auto (Bld) [Volum e fraction]Ordered By: Ute Griffin on 08-04-2024 Hematocrit (Bld) [Volume fraction] Hematocrit [Volume Fraction] of Blood by Automated count Low 34.0-46.4 [facility] Hemoglobin [Mass/volume] in BloodOrdered By: Ute Griffin on 08-04-2024 Hemoglobin (Bld) [Mass/Vol] Hemoglobin [Mass/volume] in Blood Low 11.8-15.4 [facility] Iron [Mass/volume] in Serum or PlasmaOrdered By: Ute Griffin on 08-04-2024 Iron [Mass/Vol] Iron [Mass/volume] i n Serum or Plasma Low 50-212 [facility] Iron and TIBC Profileon 07-18 % Iron Saturation 12.2 % Low 20-50 [facility] Group Comment on above: Performed By: #### C BC, BENNY, FE and TIBC #### [facility] [address] Iron [Mass/Vol] 49 ug/dL Low 50-212 [facility] Comment on above: Performed By: #### C BC, BENNY, FE and TIBC #### [facility] [address] Total Iron Binding Capacity 403 ug/dL Normal 255-450 The [facility] Comment on above: Performed By: #### C BC, BENNY, FE and TIBC #### [facility] [address] Transferrin [Mass/Vol] 288 mg/dL Normal 203-362 [facility] Comment on above: Performed By: #### C BC, BENNY, FE and TIBC #### [facility] [address] Leukocytes [#/volume] correc gilson for nucleated erythrocytes in Blood by Automated counOrdered By: Ute Griffin on 08-04-2024 WBC corrected for nucl RBC Auto (Bld) [#/Vol] Leukocytes [#/volume] corrected for nucleated erythrocytes in Blood by Automated coun 3.8-11.6 [facility] Lymphocytes Auto (Bld) [#/Vo l]Ordered By: Ute Griffin on 08-04-2024 Lymphocytes (Bld) [#/Vol] Lymphocytes [#/volume] in Blood by Automated count 1.00-4.8 [facility] Lymphocytes/100 WBC Auto (Bl d)Ordered By: Ute Griffin on 08-04-2024 Lymphocytes/100 WBC (Bld) Lymphocytes/100 leukocytes in Blood by Automated count . [facility] MCH Auto (RBC) [Entitic mass ]Ordered By: Ute Griffin on 08-04-2024 MCH (RBC) [Entitic mass] MCH [Entitic mass] by Automated count 24.7-34.3 [facility] MCHC Auto (RBC) [Mass/Vol]Or dered By: Ute Griffin on 08-04-2024 MCHC (RBC) [Mass/Vol] MCHC [Mass/volume] by Automated count 32.0-35.0 [facility] MCV Auto (RBC) [Entitic vol] Ordered By: Ute Griffin on 08-04-2024 MCV (RBC) [Entitic vol] MCV [Entitic volume] by Automated count 80-100 [facility] Monocytes Auto (Bld) [#/Vol] Ordered By: Ute Griffin on 08-04-2024 Monocytes (Bld) [#/Vol] Automated blood monocyte count 0.0-0.8 [facility] Monocytes/100 WBC Auto (Bld) Ordered By: Ute Griffin on 08-04-2024 Monocytes/100 WBC (Bld) Automated monocyte % . [facility] Neutrophils Auto (Bld) [#/Vo l]Ordered By: Ute Griffin on 08-04-2024 Neutrophils (Bld) [#/Vol] Neutrophils [#/volume] in Blood by Automated count 1.8-7.7 [facility] Neutrophils/100 WBC Auto (Bl d)Ordered By: Ute Griffin on 08-04-2024 Neutrophils/100 WBC (Bld) Automated neutrophil % . [facility] Nucleated erythrocytes [Pres ence] in Blood by Automated countOrdered By: Ute Griffin on 08-04-2024 Nucleated RBC Auto Ql (Bld) Nucleated erythrocytes [Presence] in Blood by Automated count 0-0.5 [facility] Platelet mean volume Auto (B ld) [Entitic vol]Ordered By: Ute Griffin on 08-04-2024 Platelet mean volume (Bld) [Entitic vol] Platelet mean volume [Entitic volume] in Blood by Automated count 6.3-10.7 [facility] Platelets Auto (Bld) [#/Vol] Ordered By: Ute Griffin on 08-04-2024 Platelets (Bld) [#/Vol] Platelets [#/volume] in Blood by Automated count 150-450 [facility] RBC Auto (Bld) [#/Vol]Ordere d By: Ute Griffin on 08-04-2024 RBC (Bld) [#/Vol] Erythrocytes [#/volu me] in Blood by Automated count Low 3.60-5.00 [facility] Serum or plasma iron binding capacity measurement (mass/volume)Ordered By: Ute Griffin on 08-04-2024 Iron binding capacity [Mass/Vol] Iron binding capacity [Mass/volume] in Serum or Plasma 255-450 [facility] Serum or plasma iron saturat ion measurement (mass fraction)Ordered By: Ute Griffin on 08-04-2024 Iron saturation [Mass fraction] Iron saturation [Mass Fraction] in Serum or Plasma Low 20-50 [facility] Transferrin [Mass/volume] in Serum or PlasmaOrdered By: Ute Griffin on 08-04-2024 Transferrin [Mass/Vol] Transferrin [Mass/volume] in Serum or Plasma 203-362 [facility] WBC Auto (Bld) [#/Vol]Ordere d By: Ute Griffin on 08-04-2024 WBC (Bld) [#/Vol] Leukocytes [#/volume ] in Blood by Automated count 3.8-11.6 [facility] EDMUNDO with Reflexon 07-22-2024 EDMUNDO with Reflex Negative Normal Negative [facility] Comment on above: Result Comment: Perf ormed at: NO[facility] - [facility] [address] [id number] Steeping Press Tender: Andres Arboleda PhD, Phone: [phone] PERFORMED BY: [place] [address] PATHOLOGIST [employer] SUPERVISOR JALEN LEON M.D. Performed By: #### A NA CHOICE #### [facility] , Serum or plasma free cefurox lisa measurement (mass/volume)Ordered By: Fernanda Concepcion on 07-22-2024 Cefuroxime free [Mass/Vol] Serum or plasma free cefuroxime measurement (mass/volume) Negative [facility] Comment on above: Performed at: NO[facility] - [facility] [address] [id number] Director: Andres Arboleda PhD, Phone: [phone] XR thoracic spine 3V*on XR thoracic spine 3V* [facility] [address] XRay Report Signed Patient: Katy Banuelos MR#: [id number] : 1975 Acct:[id number] Age/Sex: 49 / F ADM Date: 07/22/24 Loc: XD Room: Type: [facility] Attending Dr: Fernanda Concepcion MD Copies to: Fernanda Concepcion MD Ordering Provider: Fernanda Concepcion MD Date of Service: 07/22/24 XR/XR thoracic spine 3V*: M54.6 - Pain in thoracic spine THORACIC SPINE - - 3 views CLINICAL HISTORY: Upper back pain and numbness tingling down right arm. COMPARISON: None FINDINGS: Vertebral body heights appear maintained. Pedicles appear intact. Disc space heights appear maintained. Minimal scoliosis. XR/XR thoracic spine 3V* IMPRESSION: MINIMAL SCOLIOSIS. NO ACUTE BONY PROCESS. Impression dictated by: Freedom Mcmillan Jr., D.O.07/22/2024 4:08 PM Dictation Location: [place] [address] Transcribed By: [facility] 07/22/24 1608 Dictated By: Freedom Mcmillan Jr, DO 07/22/24 1607 Signed By: 07/22/24 1608 Normal [facility] Urinalysis macro (dipstick) panel (U)on 07-03-2024 Bilirubin, UA Negative Negative - 4(70) +++ mg/dL [facility] Blood, UA Negative Negative - 50 Antelmo/mcL [facility] Clarity, UA Clear [facility] Color, UA Yellow [facility] Glucose, UA Negative Negative - 1999(110) ++++ mg/dL [facility] Interpretation and review of laboratory results Normal [facility] Ketones, UA Negative Negative - 160(16) ++++ mg/dL [facility] Leukocytes, UA Negative Negative - 500+++ Rubio/mcL [facility] Nitrite, UA Negative Negative - Positive [facility] pH, UA 7 5 - 9 [facility] Protein, UA Negative Negative - 2000(20) ++++ mg/dL [facility] Spec Grav, UA 1.025 1 - 1.03 [facility] Urobilinogen, UA 1.0 0.2 - 12 mg/dL [facility] BI MAMMOGRAM SCREENING TOMOS YNTLAURENIS BILATERALon 04-07-2024 BI MAMMOGRAM SCREENING TOMOSYNTHESIS BILATERAL This is a summary report. The complete report is available in the patient's medical record. If you cannot access the medical record, please contact the sending organization for a detailed fax or copy. EXAMINATION: BI MAMMOGRAM SCREENING TOMOSYNTHESIS BILATERAL CLINICAL HISTORY:screening COMPARISON: February 26, 2023. RESULT: Density: Heterogeneously dense [3] Overall appearance is stable. There is no suspicious mass, asymmetry, architectural distortion, or calcification IMPRESSION: BIRADS 1 - Negative Follow-up: Routine Screening Mamm COMMENT: Given dense breast tissue, recommend close correlation with self-breast and clinical exam findings. If any new symptoms or signs present clinically, recommend ultrasound to complement mammography. Board Certified Radiologists. Accredited by the ACR and FDA. MAMMOGRAPHY IS VERY IMPORTANT TO YOUR HEALTH. THE [employer] GUIDELINES RECOMMEND THAT WOMEN 40 YEARS OF AGE AND OLDER SHOULD HAVE A MAMMOGRAM EVERY YEAR. A REMINDER LETTER WILL BE SENT AT THE APPROPRIATE TIME. THIS FACILITY UTILIZES A REMINDER SYSTEM TO ENSURE ALL PATIENTS RECEIVE REMINDER NOTIFICATIONS AT THE APPROPRIATE TIME BASED ON THE RECOMMENDATIONS OF THIS EXAM. THIS INCLUDES REMINDERS FOR ROUTINE SCREENING MAMMOGRAMS, DIAGNOSTIC MAMMOGRAMS IN WHICH THE PATIENT IS ASKED TO RETURN FOR ADDITIONAL VIEWS, OR OTHER BREAST IMAGING INTERVENTIONS WHEN APPROPRIATE. THE PATIENT WILL BE PLACED IN THE APPROPRIATE REMINDER SYSTEM INCLUDING A REMINDER AT THE APPROPRIATE TIME FOR ANY PENDING ADDITIONAL VIEWS. TRANSCRIBED BY: ELECTRONICALLY SIGNED BY: Freedom Ramos MD Normal Not Available HCG ( test) IA.rapi d Ql (U)Ordered By: Spencer Valadez on 03-04-2024 HCG ( test) Ql (U) Negative [facility] HCG,Urineon 03-04-2024 Beta HCG ( test) Ql (U) Negative Normal [facility] Comment on above: Result Comment: PERF ORMED BY: [facility] [address] [place] [address] PATHOLOGIST [employer] SUPERVISOR JALEN LEON M.D. Performed By: #### U HCG ####[facility] [address] [place] [address] [facility] Dewayne 03-04-2024 L Specimen: [id number] Received: 03/04/24 Status: TEJAL Dalal Num: [id number] Spec Type: Surgical Subm Dr: Spencer Valadez MD Tissues: A Duodenum - Biopsy (DUODENUM) B GASTRIC FOR HP (GASTRIC HP) C Colon Biopsy (HEPATIC FLEXURE POLYP) Procedures: HE/6, Gross/Micro L4/3, H PYLORI, IHC First AB Age/ Patient Sex Location Account Attending Physician MarkKaty Elena 49/F [id number] Spencer Valadez MD SPEC NUM: [id number] RECD: 03/04/24 STATUS: [facility] NUM: [id number] TWIN: 03/04/24- SUBM DR: Spencer Valadez MD ENTERED: 03/04/24 [facility] DR: SPEC TYPE: Surgical DEPT: S ORDERED: HE/6, Gross/Micro L4/3, H PYLORI, IHC First AB ORDERED: HE/6, Gross/Micro L4/3, H PYLORI, IHC First AB Pathological Diagnosis A, duodenal biopsy: -Small bowel mucosa with minor degrees of nonspecific chronic duodenitis including minor gastric metaplasia, otherwise without erosion, villous blunting, or any other obvious or abnormal features of celiac sprue identified B, gastric biopsy: -Antral mucosa with mild chronic reactive gastropathy including mild reactive prominence of the G-cell without any other specific histomorphological changes observed -H. pylori immunostain with appropriate control is also negative for identified Helicobacter organism or infection C, hepatic flexure colon polyp biopsy: -Serrated polyp in all fragments without adenomatous glandular dysplasia Clinical Information Iron deficiency anemia, RUQ pain, bloating. Rule out celiac and rule out H. pylori. Specimen: [id number] Received: 03/04/24 Status: TEJAL Katlin Num: [id number] Spec Type: Surgical Subm Dr: Spencer Valadez MD Tissues: A Duodenum - Biopsy (DUODENUM) B GASTRIC FOR HP (GASTRIC HP) C Colon Biopsy (HEPATIC FLEXURE POLYP) Procedures: HE/6, Gross/Micro L4/3, H PYLORI, IHC First AB Patient: Katy Banuelos [id number] (Continued) Specimen: [id number] Received: 03/04/24 (Continued) Signed (signature on file) Jorge Albrecht MD 03/06/24 1548 Specimen: [id number] Received: 03/04/24 Status: TEJAL Dalal Num: [id number] Spec Type: Surgical Subm Dr: Spencer Valadez MD Tissues: A Duodenum - Biopsy (DUODENUM) B GASTRIC FOR HP (GASTRIC HP) C Colon Biopsy (HEPATIC FLEXURE POLYP) Procedures: HE/6, Gross/Micro L4/3, H PYLORI, IHC First AB Patient: Katy Banuelos [id number] (Continued) Specimen: [id number] Received: 03/04/24-113 (Continued) Gross Description Received are 3 formalin filled containers each labeled with the patient's name, date of and specific specimen site. A. Further labeled duodenum BX are 2 hatfield mucosal tissue fragments each measuring 0.2 x 0.2 x 0.1 cm, entirely submitted in A1. B. Further labeled gastric BX is a 0.4 x 0.2 x 0.1 cm hatfield mucosal tissue fragment, entirely submitted in B1. C. Further labeled hepatic flexure polyp are 3 hatfield mucosal tissue fragments admixed with mucus and possible vegetable matter ranging from 0.9 x 0.3 x 0.2 cm to 0.4 x 0.2 x 0.1 cm, entirely submitted in C1. TW CPT Codes 15509 X.3 75586 Specimen: [id number] Received: 03/04/24 Status: TEJAL Dalal Num: [id number] Spec Type: Surgical Subm Dr: Spencer Valadez MD Tissues: A Duodenum - Biopsy (DUODENUM) B GASTRIC FOR HP (GASTRIC HP) C Colon Biopsy (HEPATIC FLEXURE POLYP) Procedures: HE/6, Gross/Micro L4/3, H PYLORI, IHC First AB Patient: MorisKaty desai [id number] (Continued) Signed (signature on file) Jorge Albrecht MD 03/06/24 1548 Normal [facility] Heart and Vascular Office/Cl inic Noteon 02-18-2024 Heart and Vascular Office/Clinic Note Chief Complaint vascular patient here to establish care History of Present Illness Katy Mark is a [id number]-ujz female presents to the office to establish care. The patient began experiencing visual disturbances in the fall of 2021, initially suspected to be due to blood donation. However, upon further investigation, it was determined that the visual disturbances were not a cause for concern. The symptoms are on the left side. Described as lakeisha to a curtain or shade, these visual disturbances are intermittent in nature. She has not undergone a carotid ultrasound. In August 2022, she underwent an echocardiogram at [facility], which yielded normal results. Additionally, she underwent a stress test in 2019 or 2020, the results of which were normal. The patient is not diabetic and does not have any cardiac issues. The patient reports that the tips of her fingers exhibit a white discoloration, lakeisha to poor circulation, and numbness. Her toes are unaffected. These symptoms have been present for several years, and she did not initially perceive them as serious. The symptoms appear to manifest when she touches cold objects. She had high blood pressure probably 4 or 5 years ago. There is a family history of blockage, heart disease, and stroke on her father and paternal sides. Her father had high blood pressure, high cholesterol, and he suffered a stroke, but prior to that he had mini strokes. Her son has Raynaud's phenomenon. Review of Systems Constitutional: no fever, no sweats, no weakness Skin: no rash, no lesions, no bruising/petechiae ENMT: no sore throat, no congestion, no hoarseness Respiratory: no shortness of breath, no cough, no orthopnea, no wheezing Cardiovascular: no chest pain, no palpitations, no edema Gastrointestinal: no nausea, no vomiting, no diarrhea, no GI bleeding Genitourinary: no anuria/oliguria no hematuria Musculoskeletal: no back pain, no trauma Neurologic: no headache, no dizziness, no numbness, no weakness Psychiatric: no sleeping problems, no irritability, no anxiety/depression. Heme/Lymph: no bleeding tendency, no bruising tendency Allergy/Immunologic: no recurrent infections, no impaired immunity Additional ROS info: Except as noted in the above Review of Systems and in the History of Present Illness all other systems have been reviewed and are negative or noncontributory Physical Exam Vitals & Measurements HR: 81(Peripheral) BP: 116/77 SpO2: 95% HT: 66 in HT: 168 cm WT: 52.8 kg WT: 116.16 lb BMI: 18.71 General: alert, no acute distress Skin: warm, dry intact Head: atraumatic, normocephalic Neck: trachea midline, no JVD, no bruit Eye: normal conjunctiva, sclera clear ENMT: oral mucosa moist Cardiovascular: regular rate and rhythm, no murmur, normal peripheral perfusion Respiratory: lungs CTA, respirations non labored Chest wall: no deformity. Gastrointestinal: soft, non-distended, no tenderness, no guarding. Back: no tenderness, normal ROM, normal alignment. Extremities: no edema, no deformity, no trauma Neurological: oriented x 4, LOC appropriate for age, sensation equal & normal bilaterally, speech normal Psychiatric: cooperative, affect appropriate for age, normal judgement, normal psychiatric thoughts. Assessment/Plan 1. Visual disturbances. A blood test will be conducted to assess for CRP and ESR. A carotid ultrasound will be performed to evaluate for potential blockages. The patient is advised to monitor her blood pressure for a duration of 24 hours. Portions of this record may have been created with voice recognition artificial intelligence software, specifically [employer], [employer]et and or [employer]. Substitutions may have occurred due to the inherent limitations of voice recognition and artificial intelligence software. ATTESTATION: Documentation services were performed after patient or guardian consented to allow [employer] to record this visit. CASEY instructional services specialist and provider reviewed before signing. 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 Medications alprazolam 1 mg Tab ibuprofen 800 mg Tab, 800 mg= 1 tab(s), Oral, q3hr, 3 refills omeprazole 20 mg Cap-DR, 20 mg= 1 cap(s), Oral, Daily ProFe 180 mg oral capsule Allergies No Known Allergies No Known Medication Allergies Social History Alcohol - Medium Risk, 06/18/2020 Current, Beer, 1-2 times per month, Previous treatment: None. Alc (more content not included)... Normal [facility] Comment on above: Result Comment: Elec tronically Signed By: Sandy DELEON, Girma Dawson\.br\Date and Time Signed: 02/18/24 10:07 EDT\.br\Electronically Co-Signed By: Diane Wilks.br\Date and Time Co-Signed: 01/30/24 17:05 EDT CHEMISTRYOrdered By: SYSTEM SYSTEM on 02-06-2024 Albumin [Mass/Vol] 4.3 g/dL Normal 3.3 - 5.0 gm/dL [facility] Albumin/Globulin [Mass ratio] 2.2 {ratio} Normal 1.1 - 2.2 [facility] ALP [Catalytic activity/Vol] 55 [iU]/d Normal 21 - 98 Int._Unit/ L [facility] ALT No additional P-5'-P [Catalytic activity/Vol] 11 [iU]/d Normal 6 - 46 Int._Unit/ L [facility] Anion gap [Moles/Vol] 8 mmol/L Normal 6 - 16 mEq/L [facility] AST [Catalytic activity/Vol] 17 [iU]/d Normal 5 - 43 Int._Unit/ L [facility] Bilirubin [Mass/Vol] 0.7 mg/dL Normal 0.0 - 1 .1 mg/dL [facility] Calcium [Mass/Vol] 8.8 mg/dL Low 8.9 - 11. 1 mg/dL [facility] Chloride [Moles/Vol] 105 mmol/L Normal 101 - 1 11 mmol/L [facility] Cholesterol [Mass/Vol] 166 mg/dL Normal 120 - 200 mg/dL [facility] Cholesterol in HDL [Mass/Vol] 62 mg/dL Invalid Interpretation Code [facility] Comment on above: Result Comment: '>= 60 LOW RISK' '<= 40 HIGH RISK' Cholesterol in LDL [Mass/Vol] 103 mg/dL Normal <=129mg/dL [facility] Cholesterol in VLDL [Mass/Vol] 9 mg/dL Normal 7 - 40 mg/dL [facility] CO2 [Moles/Vol] 29 mmol/L Normal 21 - 31 mmol/L [facility] Creatinine [Mass/Vol] 0.7 mg/dL Normal 0.5 - 1.3 mg/dL [facility] CRP [Mass/Vol] mg/dL Normal <=1.9mg/dL [facility] em eGFR 107 mL/min/1.73 m2 Normal >=59mL/mi n /1.73 m2 [facility] Globulin (S) [Mass/Vol] 2.0 g/dL Normal 1.4 - 4.0 gm/dL [facility] Glucose [Mass/Vol] 85 mg/dL Normal 55 - 199 mg/dL [facility] Potassium [Moles/Vol] 4.2 mmol/L Normal 3.5 - 5.3 mmol/L [facility] Protein [Mass/Vol] 6.3 g/dL Normal 6.0 - 7.8 gm/dL [facility] Sodium [Moles/Vol] 138 mmol/L Normal 135 - 145 mmol/L [facility] Triglyceride [Mass/Vol] 46 mg/dL Normal <=149mg/dL [facility] Urea nitrogen [Mass/Vol] 13 mg/dL Normal 5 - 21 mg/dL [facility] Urea nitrogen/Creatinine [Mass ratio] 19 mg/mg Normal 10 - 20 [facility] CMPon 02-06-2024 Albumin [Mass/Vol] 4.3 g/dL Normal 3.3-5.0 [facility] Comment on above: Performed By: #### 2 [id number] #### [facility] [address] [place] [address] Albumin/Globulin (S) [Mass conc ratio] 2.2 Normal 1.1-2.2 [facility] Comment on above: Performed By: #### 2 [id number] #### [facility] [address] [place] [address] ALP [Catalytic activity/Vol] 55 Int._Unit/L Normal 21-98 [facility] Comment on above: Performed By: #### 2 [id number] #### [facility] [address] [place] [address] ALT No additional P-5'-P [Catalytic activity/Vol] 11 Int._Unit/L Normal 6-46 [facility] Comment on above: Performed By: #### 2 [id number] #### [facility] [address] [place] [address] Anion gap [Moles/Vol] 8 mmol/L Normal 6-16 [facility] Comment on above: Performed By: #### 2 [id number] #### [facility] [address] [place] [address] AST [Catalytic activity/Vol] 17 Int._Unit/L Normal 5-43 [facility] Comment on above: Performed By: #### 2 [id number] #### [facility] [address] [place] [address] Bilirubin [Mass/Vol] 0.7 mg/dL Normal 0.0-1.1 [facility] Comment on above: Performed By: #### 2 [id number] #### [facility] [address] [place] [address] Calcium [Mass/Vol] 8.8 mg/dL Low 8.9-11.1 [facility] Comment on above: Performed By: #### 2 [id number] #### [facility] [address] [place] [address] Chloride [Moles/Vol] 105 mmol/L Normal 101-111 [facility] Comment on above: Performed By: #### 2 [id number] #### [facility] [address] [place] [address] CO2 [Moles/Vol] 29 mmol/L Normal 21-31 [facility] Comment on above: Performed By: #### 2 [id number] #### [facility] [address] [place] [address] Creatinine [Mass/Vol] 0.7 mg/dL Normal 0.5-1.3 [facility] Comment on above: Performed By: #### 2 [id number] #### [facility] [address] [place] [address] Globulin (S) [Mass/Vol] 2.0 g/dL Normal 1.4-4.0 [facility] Comment on above: Performed By: #### 2 [id number] #### [facility] [address] [place] [address] Glucose [Mass/Vol] 85 mg/dL Normal 55-199 [facility] Comment on above: Performed By: #### 2 [id number] #### [facility] [address] [place] [address] Potassium [Moles/Vol] 4.2 mmol/L Normal 3.5-5.3 [facility] Comment on above: Performed By: #### 2 [id number] #### [facility] [address] [place] [address] Protein [Mass/Vol] 6.3 g/dL Normal 6.0-7.8 [facility] Comment on above: Performed By: #### 2 [id number] #### [facility] [address] [place] [address] Sodium [Moles/Vol] 138 mmol/L Normal 135-145 [facility] Comment on above: Performed By: #### 2 [id number] #### [facility] [address] [place] [address] Urea nitrogen [Mass/Vol] 13 mg/dL Normal 5-21 [facility] Comment on above: Performed By: #### 2 [id number] #### [facility] [address] [place] [address] Urea nitrogen/Creatinine [Mass ratio] 19 No Units Normal 10-20 [facility] Comment on above: Performed By: #### 2 [id number] #### [facility] [address] [place] [address] CRPon 02-06-2024 CRP [Mass/Vol] mg/L Normal <=1.9 [facility] Comment on above: Performed By: #### 2 [id number] #### [facility] [address] [place] [address] Consent for Treatmenton 01-16 Consent for Treatment [id number] Normal [facility] HEMATOLOGYOrdered By: Vince Dutton on 02-06-2024 ESR (Bld) [Velocity] 3 mm/h Normal 0 - 34 mm/hr [facility] HemeAutoSS Lipid Panelon 02-06-2024 Cholesterol [Mass/Vol] 166 mg/dL Normal 120-200 [facility] Comment on above: Performed By: #### 2 [id number] #### [facility] [address] [place] [address] Cholesterol in HDL [Mass/Vol] 62 mg/dL Invalid Interpretation Code [facility] Comment on above: Result Comment: '>= 60 LOW RISK' '<= 40 HIGH RISK' Performed By: #### 2 [id number] #### [facility] [address] [place] [address] Cholesterol in LDL [Mass/Vol] 103 mg/dL Normal <=129 [facility] Comment on above: Performed By: #### 2 [id number] #### [facility] [address] [place] [address] Cholesterol in VLDL [Mass/Vol] 9 mg/dL Normal 7-40 [facility] Comment on above: Performed By: #### 2 [id number] #### [facility] [address] [place] [address] Triglyceride [Mass/Vol] 46 mg/dL Normal <=149 [facility] Comment on above: Performed By: #### 2 [id number] #### [facility] [address] [place] [address] Sed Rate Automatedon 024 ESR (Bld) [Velocity] 3 mm/h Normal 0-34 [facility] Comment on above: Performed By: #### 1 [id number] #### [facility] [address] [place] [address] US Carotid Duplex Bilateralo 02-06-2024 US Carotid Duplex Bilateral Exam Date/Time: 02/06/2024 12:20 EDT Reason for Exam: H35.00;Other (please specify) Report IMPRESSION: NEGATIVE STUDY. NO EVIDENCE OF SIGNIFICANT STENOSIS. CLINICAL HISTORY: H35.00 COMPARISON: NONE. COMMENT: No plaques are identified at the carotid bifurcation. There is antegrade blood flow in the right and left vertebral arteries in the neck. On Doppler images, the peak systolic velocity measurements in centimeters per second are as follows: Right proximal common carotid artery is 102.0 / 41.0, right distal common carotid artery is 92.6 / 36.0, right proximal internal carotid artery is 64.0 / 31.1, right mid internal carotid artery is 74.6 / 34.8, right distal internal carotid artery is 73.3 / 31.1, right external carotid artery is 100.0 cm/s, left proximal common carotid artery is 101.0 / 43.5, left distal common carotid artery is 94.4 / 40.4, left proximal internal carotid artery is 64.6 / 34.8, left mid internal carotid artery is 78.9 / 42.2, left distal internal carotid artery is 122.0 / 29.8, left external carotid artery is 102.0 cm/s. The peak systolic internal carotid to common carotid artery ratio on the right is 0.8 and on the left is 1.3. Optimization of duplex velocity criteria for diagnosis of internal carotid artery (ICA) stenosis: A report of the Intersocietal Accreditation Commission (IAC) Vascular Testing Division Carotid Diagnostic Criteria Committee. Vascular Medicine 2020; https://journals.sagepub.c om/doi/full/10.1177/392751 6F893137681 Ordering Provider: Girma Delgado FINAL REPORT Dictated: 02/06/2024 4:04 pm Crystal Goncalves Signed (Electronic Signature): 02/06/2024 4:04 pm Signed by: Crystal Goncalves Transcribed by: MARKUS Technologist: MAUREEN Technical Comments Velocities Right Vert. Antegrade Yes Velocities Left Vert. Antegrade Yes Normal [facility] eGFRon 02-06-2024 eGFR 107 mL/min/1.73 m2 Normal >=59 [facility] Comment on above: Order Comment: Order added by Discern Expert. Performed By: #### 1 [id number] #### [facility] [address] [place] [address] Formson 01-31-2024 Forms [id number]#1.00TIFF Normal [facility] Consent for Treatmenton 01-15 Consent for Treatment [id number]#1.00TIFF Normal [facility] Outside Recordson 01-30-2024 Outside Records [id number]#1.00TIFF Normal [facility] Physician Orderon 01-30-2024 Physician Order [id number]#1.00TIFF Normal [facility] Echocardiographyon 4 Echocardiography [id number]#1.00TIFF Normal [facility] Outside Radiologyon 01-09-20 24 Outside Radiology [id number]#1.00TIFF Normal [facility] Referrals Officeon 4 Referrals Office [id number]#1.00TIFF Normal [facility] Referrals Office [id number]#1.00TIFF Normal [facility] IgA [Mass/volume] in Serum o r PlasmaOrdered By: Candelario Johansen on 10-08-2023 IgA [Mass/Vol] 125 mg/dL 87-352 [facility] Comment on above: Performed at: [address] Director: Andres Arboleda PhD, Phone: [phone] No Panel InformationOrdered By: Candelario Johansen on 10-08-2023 Endomysial IgA Antibody Negative Negative [facility] Serum gliadin peptide IgA an tibody assay (units/volume)Ordered By: Candelario Johansen on 10-08-2023 Gliadin peptide IgA Qn (S) 8 units 0-19 [facility] Comment on above: Negative 0 - 19 Weak Positive 20 - 30 Moderate to Strong Positive >30 Serum gliadin peptide IgG an tibody assay (units/volume)Ordered By: Candelario Johansen on 10-08-2023 Gliadin peptide IgG Qn (S) 5 units 0-19 [facility] Comment on above: Negative 0 - 19 Weak Positive 20 - 30 Moderate to Strong Positive >30 Serum tissue transglutaminas e (tTG) IgA antibody assay (units/volume)Ordered By: Candelario Johansen on 10-08-2023 tTG IgA Qn (S) <2 U/mL 0-3 [facility] Comment on above: Negative 0 - 3 Weak Positive 4 - 10 Positive >10 Tissue Transglutaminase (tTG) has been identified as the endomysial antigen. Studies have demonstr- ated that endomysial IgA antibodies have over 99% specificity for gluten sensitive enteropathy. Serum tissue transglutaminas e (tTG) IgG antibody assay (units/volume)Ordered By: Candelario Johansen on 10-08-2023 tTG IgG Qn (S) 5 U/mL 0-5 [facility] Comment on above: Negative 0 - 5 Weak Positive 6 - 9 Positive >9 Thyrotropin [Units/volume] i n Serum or PlasmaOrdered By: Candelario Johansen on 10-08-2023 TSH Qn 0.60 m[IU]/L 0.45-5.33 [facility] AFB cultureOrdered By: Livier Hernandez on 09-14-2023 Mycobacterium sp identified Org specific cx Nom (Unsp spec) [facility] Fungal cultureOrdered By: Milagros Hernandez on 09-14-2023 Fungus identified Cx Nom (Unsp spec) [facility] Fungus # 2 identified in Uns pecified specimen by CultureOrdered By: Marta Hernandez on 09-14-2023 Fungus identified # 2 Cx Nom (Unsp spec) N/A [facility] Fungus # 3 identified in Uns pecified specimen by CultureOrdered By: Marta Hernandez on 09-14-2023 Fungus identified # 3 Cx Nom (Unsp spec) N/A [facility] Fungus # 4 identified in Uns pecified specimen by CultureOrdered By: Marta Hernandez on 09-14-2023 Fungus identified # 4 Cx Nom (Unsp spec) N/A [facility] Gram stain for investigation of transfusion reactionOrdered By: Marta Hernandez on 09-14-2023 Microscopic observation Gram stain Nom (Unsp spec) Haemophilus influenzae [facility] Microscopic observation Gram stain Nom (Unsp spec) Haemophilus influenzae [facility] No Panel InformationOrdered By: Marta Hernandez on 09-14-2023 Mycology Susceptibility N/A [facility] XR hand RT min 3V*on 023 XR hand RT min 3V* [facility] [employer] Other XR hand RT min 3V* [facility] [employer] Other XR hand RT min 3V* [facility] [employer] Other XR hand RT min 3V* [place] [address] [employer] Other XR hand RT min 3V* XRay Report [employer] Other XR hand RT min 3V* Signed [employer] Other XR hand RT min 3V* Patient: Katy Marinelli MR#: [id number] [employer] Other XR hand RT min 3V* [id number] [employer] Other XR hand RT min 3V* : 1975 Acct:[id number] [employer] Other XR hand RT min 3V* Age/Sex: 48 / F ADM Date: 09/04/23 [employer] Other XR hand RT min 3V* Loc: SOX Room: Type : [facility] [employer] Other XR hand RT min 3V* Attending Dr: Prashant Mitchell DO [employer] Other XR hand RT min 3V* Copies to: Prashant butler DO [employer] Other XR hand RT min 3V* Ordering Provider: Elena Mitchell [place] Other XR hand RT min 3V* Date of Service: 09/04/23 [employer] Other XR hand RT min 3V* [id number]) XR/XR hand RT min 3V*: Right hand pain [employer] Other XR hand RT min 3V* XR hand RT min 3V* 09/04/2023 8:17 AM [employer] Other XR hand RT min 3V* SIGNS AND SYMPTOMS: Hyperextension injury to right thumb [employer] Other XR hand RT min 3V* PROTOCOL: Frontal, lateral, and oblique radiographs of the right hand [employer] Other XR hand RT min 3V* COMPARISON: None [employer] Other XR hand RT min 3V* FINDINGS: [employer] Other XR hand RT min 3V* The bones are in edmundo tomic alignment. The joint spaces are preserved. There is no evidence of [employer] Other XR hand RT min 3V* fracture or dislocat ion. No significant soft tissue swelling. [employer] Other XR hand RT min 3V* X R/XR hand RT min 3V* [employer] Other XR hand RT min 3V* IMPRESSION: [employer] Other XR hand RT min 3V* No acute bony injury. [employer] Other XR hand RT min 3V* No significant soft tissue swelling. [employer] Other XR hand RT min 3V* Impression dictated by: Jermain Sultana M.D.09/04/2023 10:15 AM [employer] Other XR hand RT min 3V* Dictation Location: [place] [address] [employer] Other XR hand RT min 3V* Transcribed By: PAKO 09/04/23 1015 [employer] Other XR hand RT min 3V* Dictated By: Jermain Sultana II, MD 09/04/23 6014 [employer] Other XR hand RT min 3V* Signed By: [employer] Other XR hand RT min 3V* 09/04/23 [facility] [employer] Other Plan of Care - PT/OT/Speecho n 07-25-2023 Plan of Care - PT/OT/Speech [id number]#1.00TIFF Normal [facility] Alanine aminotransferase [En zymatic activity/volume] in Serum or PlasmaOrdered By: Fernanda Concepcion on 05-25-2023 ALT [Catalytic activity/Vol] 18 U/L 7-52 [facility] Albumin [Mass/volume] in Ser um or Plasma by Bromocresol green (BCG) dye binding methoOrdered By: Fernanda Concpecion on 05-25-2023 Albumin BCG dye [Mass/Vol] 4.7 g/dL 3.5-5.7 [facility] Alkaline phosphatase [Enzyma tic activity/volume] in Serum or PlasmaOrdered By: Fernanda Concepcion on 05-25-2023 ALP [Catalytic activity/Vol] 51 U/L 34-104 [facility] Aspartate aminotransferase [ Enzymatic activity/volume] in Serum or PlasmaOrdered By: Fernanda Concepcion on 05-25-2023 AST [Catalytic activity/Vol] 20 U/L 13-39 [facility] Basophils Auto (Bld) [#/Vol] Ordered By: Fernanda Concepcion on 05-25-2023 Basophils (Bld) [#/Vol] 0.1 10*3/uL 0.0-0.2 [facility] Basophils/100 WBC Auto (Bld) Ordered By: Fernanda Concepcion on 05-25-2023 Basophils/100 WBC (Bld) 1.1 % . [facility] Bilirubin.total [Mass/volume ] in Serum or PlasmaOrdered By: Fernanda Concepcion on 05-25-2023 Bilirubin [Mass/Vol] 0.5 mg/dL 0.3-1.0 [facility] Calcium [Mass/volume] in Ser um or PlasmaOrdered By: Fernanda Concepcion on 05-25-2023 Calcium [Mass/Vol] 9.3 mg/dL 8.6-10.3 [facility] Carbon dioxide, total [Moles /volume] in Serum or PlasmaOrdered By: Fernanda Concepcion on 05-25-2023 CO2 [Moles/Vol] 31.4 mmol/L 21.0-31.0 [facility] Chloride [Moles/volume] in S leonard or PlasmaOrdered By: Fernanda Concepcion on 05-25-2023 Chloride [Moles/Vol] 103 mmol/L 98-107 [facility] Creatinine [Mass/volume] in Serum or PlasmaOrdered By: Fernanda Concepcion on 05-25-2023 Creatinine [Mass/Vol] 0.70 mg/dL 0.60-1.20 [facility] Eosinophils Auto (Bld) [#/Vo l]Ordered By: Fernanda Concepcion on 05-25-2023 Eosinophils (Bld) [#/Vol] 0.1 10*3/uL 0.0-0.45 [facility] Eosinophils/100 WBC Auto (Bl d)Ordered By: Fernanda Concepcion on 05-25-2023 Eosinophils/100 WBC (Bld) 0.7 % . [facility] Erythrocyte distribution wid th Auto (RBC) [Ratio]Ordered By: Fernanda Concepcion on 05-25-2023 Erythrocyte distribution width (RBC) [Ratio] 13.3 % 11.9-15.3 [facility] Globulin Calc (S) [Mass/Vol] Ordered By: Fernanda Concepcion on 05-25-2023 Globulin (S) [Mass/Vol] 1.7 g/dL [facility] Glucose [Mass/volume] in Ser um or PlasmaOrdered By: Fernanda Concepcion on 05-25-2023 Glucose [Mass/Vol] 104 mg/dL 70-100 [facility] Comment on above: ADA recommended refe rence rangeRandom Glucose Reference Range is dependent on time and content of last meal. Glucose of more than 200 mg/dL in a nonstressed, ambulatory subject supports the diagnosis of Diabetes Mellitus. Hematocrit Auto (Bld) [Volum e fraction]Ordered By: Fernanda Concepcion on 05-25-2023 Hematocrit (Bld) [Volume fraction] 39.3 % 34.0-46.4 [facility] Hemoglobin [Mass/volume] in BloodOrdered By: Fernanda Concepcion on 05-25-2023 Hemoglobin (Bld) [Mass/Vol] 13.5 g/dL 11.8-15.4 [facility] Leukocytes [#/volume] correc gilson for nucleated erythrocytes in Blood by Automated counOrdered By: Fernanda Concepcion on 05-25-2023 WBC corrected for nucl RBC Auto (Bld) [#/Vol] 8.2 10*3/uL 3.8-11.6 [facility] Lymphocytes Auto (Bld) [#/Vo l]Ordered By: Fernanda Concepcion on 05-25-2023 Lymphocytes (Bld) [#/Vol] 1.7 10*3/uL 1.00-4.8 [facility] Lymphocytes/100 WBC Auto (Bl d)Ordered By: Fernanda Concepcion on 05-25-2023 Lymphocytes/100 WBC (Bld) 20.5 % . [facility] MCH Auto (RBC) [Entitic mass ]Ordered By: Fernanda Concepcion on 05-25-2023 MCH (RBC) [Entitic mass] 35.3 pg 24.7-34.3 [facility] MCHC Auto (RBC) [Mass/Vol]Or dered By: Fernanda Concepcion on 05-25-2023 MCHC (RBC) [Mass/Vol] 34.4 g/dL 32.0-35.0 [facility] MCV Auto (RBC) [Entitic vol] Ordered By: Fernanda Concepcion on 05-25-2023 MCV (RBC) [Entitic vol] 102.7 fL 80-100 [facility] Monocytes Auto (Bld) [#/Vol] Ordered By: Fernanda Concepcion on 05-25-2023 Monocytes (Bld) [#/Vol] 0.4 10*3/uL 0.0-0.8 [facility] Monocytes/100 WBC Auto (Bld) Ordered By: Fernanda Concepcion on 05-25-2023 Monocytes/100 WBC (Bld) 4.8 % . [facility] Neutrophils Auto (Bld) [#/Vo l]Ordered By: Fernanda Concepcion on 05-25-2023 Neutrophils (Bld) [#/Vol] 6.0 10*3/uL 1.8-7.7 [facility] Neutrophils/100 WBC Auto (Bl d)Ordered By: Fernanda Concepcion on 09-08-2023 Neutrophils/100 WBC (Bld) 72.9 % . [facility] No Panel InformationOrdered By: Fernanda Concepcion on 05-25-2023 Estimated GFR (CKD-EPI) > 60.0 mL/Min [facility] Creatinine Clearance (Chem N/A [facility] Nucleated erythrocytes [Pres ence] in Blood by Automated countOrdered By: Fernanda Concepcion on 05-25-2023 Nucleated RBC Auto Ql (Bld) 0.0 /100{WBC} 0-0.5 [facility] Platelet mean volume Auto (B ld) [Entitic vol]Ordered By: Fernanda Concepcion on 05-25-2023 Platelet mean volume (Bld) [Entitic vol] 7.8 fL 6.3-10.7 [facility] Platelets Auto (Bld) [#/Vol] Ordered By: Fernanda Concepcion on 05-25-2023 Platelets (Bld) [#/Vol] 244 10*3/uL 150-450 [facility] Potassium [Moles/volume] in Serum or PlasmaOrdered By: Fernanda Concepcion on 05-25-2023 Potassium [Moles/Vol] 3.6 mmol/L 3.5-5.1 [facility] Protein [Mass/volume] in Ser um or PlasmaOrdered By: Fernanda Concepcion on 05-25-2023 Protein [Mass/Vol] 6.4 g/dL 6.4-8.9 [facility] RBC Auto (Bld) [#/Vol]Ordere d By: Fernanda Concepcion on 05-25-2023 RBC (Bld) [#/Vol] 3.83 10*6/uL 3.60-5.00 [facility] Serum or plasma albumin/glob ulin mass ratioOrdered By: Fernanda Concepcion on 05-25-2023 Albumin/Globulin [Mass ratio] 2.8 {ratio} [facility] Serum or plasma anion gap de terminationOrdered By: Fernanda Concepcino on 05-25-2023 Anion gap [Moles/Vol] 8.2 mmol/L 6.0-15.0 [facility] Sodium [Moles/volume] in Ser um or PlasmaOrdered By: Fernanda Concepcion on 05-25-2023 Sodium [Moles/Vol] 139 mmol/L 136-145 [facility] Thyrotropin [Units/volume] i n Serum or PlasmaOrdered By: Fernanda Concepcion on 05-25-2023 TSH Qn 0.35 m[IU]/L 0.45-5.33 [facility] Urea nitrogen [Mass/volume] in Serum or PlasmaOrdered By: Fernanda Concepcion on 05-25-2023 Urea nitrogen [Mass/Vol] 10 mg/dL 7-25 [facility] WBC Auto (Bld) [#/Vol]Ordere d By: Fernanda Concepcion on 05-25-2023 WBC (Bld) [#/Vol] 8.2 10*3/uL 3.8-11.6 [facility] Ambulatory Visit Summaryon 0 05-16-2023 Ambulatory Visit Summary KATY BANUELOS :1975 Visit Date:05/16/2023 Ambulatory Visit Instructions Your Diagnosis Mixed incontinence Smoker Tests Performed Urnls Dip Stick Auto w/o Microscopy POC 17346 Your Care Team Attending Physician - GIANNA KAPLAN PA-C Primary Care Physician - FERNANDA CONCEPCION MD This Is Your Medications List tolterodine (Detrol LA 2 mg Cap-ER) Contact prescribing physician if questions or concerns alprazolam (alprazolam 1 mg Tab) cetirizine (cetirizine 10 mg Tab) iron polysaccharide (ProFe 180 mg oral capsule) omeprazole (omeprazole 20 mg Cap-DR) Procedures Performed Cystourethroscopy with dilation of urethral stricture (08/17/2022), Colonoscopy (2021), Hysteroscopy (2018), Colposcopy (2015), LEEP (2009), Tubal ligation (2007), Extraction of wisdom tooth (1995). Discharge Vitals Heart Rate (Peripheral) 90 Blood Pressure 136/87 Height 168 cm Height 66 in Weight 52 kg Weight 114.4 lb BMI 18.42 What to do next Scheduled Follow-Up Appointments Sunday 9:30 AM EDT With: GIANNA KAPLAN PA-C Where: [facility] Invalid Interpretation Code [address] [place] [address]- \. br\ Sunday 9:30 AM EDT \.br\ With: EJ ELLIS, GIANNA Jimenez\.br\ Where: [facility] [place] [facility] Patient Educationon 05-16-20 23 Patient Education Obstetrics and Gynec ology Kegel Exercises Kegel exercises can help strengthen your pelvic floor muscles. The pelvic floor is a group of muscles that support your rectum, small intestine, and bladder. In females, pelvic floor muscles also help support the uterus. These muscles help you control the flow of urine and stool (feces). Kegel exercises are painless and simple. They do not require any equipment. Your provider may suggest Kegel exercises to: ? Improve bladder and bowel control. ? Improve sexual response. ? Improve weak pelvic floor muscles after surgery to remove the uterus (hysterectomy) or after , in females. ? Improve weak pelvic floor muscles after prostate gland removal or surgery, in males. Kegel exercises involve squeezing your pelvic floor muscles. These are the same muscles you squeeze when you try to stop the flow of urine or keep from passing gas. The exercises can be done while sitting, standing, or lying down, but it is best to vary your position. Ask your health care provider which exercises are safe for you. Do exercises exactly as told by your health care provider and adjust them as directed. Do not begin these exercises until told by your health care provider. Exercises How to do Kegel exercises: 1. Squeeze your pelvic floor muscles tight. You should feel a tight lift in your rectal area. If you are a female, you should also feel a tightness in your vaginal area. Keep your stomach, buttocks, and legs relaxed. 2. Hold the muscles tight for up to 10 seconds. 3. Breathe normally. 4. Relax your muscles for up to 10 seconds. 5. Repeat as told by your health care provider. Repeat this exercise daily as told by your health care provider. Continue to do this exercise for at least 4?6 weeks, or for as long as told by your health care provider. You may be referred to a physical therapist who can help you learn more about how to do Kegel exercises. Depending on your condition, your health care provider may recommend: ? Varying how long you squeeze your muscles. ? Doing several sets of exercises every day. ? Doing exercises for several weeks. ? Making Kegel exercises a part of your regular exercise routine. This information is not intended to replace advice given to you by your health care provider. Make sure you discuss any questions you have with your health care provider. Document Revised: 01/12/2022 Document Reviewed: 01/12/2022 [employer] Patient Education ? 2022 [employer] Pulmonary Medicine Steps to Quit Smoking Smoking tobacco is the leading cause of preventable . It can affect almost every organ in the body. Smoking puts you and those around you at risk for developing many serious chronic diseases. Quitting smoking can be very challenging. Do not get discouraged if you are not successful the first time. Some people need to make many attempts to quit before they achieve long-term success. Do your best to stick to your quit plan, and talk with your health care provider if you have any questions or concerns. How do I get ready to quit? When you decide to quit smoking, create a plan to help you succeed. Before you quit: ? Pick a date to quit. Set a date within the next 2 weeks to give you time to prepare. ? Write down the reasons why you are quitting. Keep this list in places where you will see it often. ? Tell your family, friends, and co-workers that you are quitting. Support from people you are close to can make quitting easier. ? Talk with your health care provider about your options for quitting smoking. ? Find out what treatment options are covered by your health insurance. ? Identify people, places, things, and activities that make you want to smoke (triggers). Avoid them. What first steps can I take to quit smoking? ? Throw away all cigarettes at home, at work, and in your car. ? Throw away smoking accessories, such as ashtrays and lighters. ? Clean your car. Make sure to empty the ashtray. ? Clean your home, including curtains and carpets. What strategies can I use to quit smoking? Talk with your health care provider about combining strategies, such as taking medicines while you are also receiving in-person counseling. Using these two strategies together makes you more likely to succeed in quitting than if you used either strategy on its own. If you are or , talk with your health care provider about finding counseling or other support strategies to quit smoking. Do not take medicine to help you quit smoking unless your health care provider tells you to. Quit right away ? Quit smoking completely, instead of gradually reducing how much you smoke over a period of time. Stopping smoking right away may be more successful than gradually quitting. ? Attend in-person counseling to help you build problem-solving skills. You are more likely to succeed in quitting if you attend counseling sessions regularly. Even short sessi (more content not included)... Normal [facility] Urology Office/Clinic Noteon 05-16-2023 Urology Office/Clinic Note Chief Complaint #3 PFPT HPI Staff Pt is here for PFPT #3 have you been consistent with your home exercises this week? yes have you noticed any worsening in your symptoms this week? no have you noticed any improvement in your symptoms this week? no do you have any UTI sx (burning, foul odor, cloudy urine, etc)? no in office UA: NOT suspicious for UTI Current urinary medications: Tolterodine 2mg qd Pt is currently taking Ibuprofen 800mg prior to doing Kegel exercises History of Present Illness staff HPI reviewed and agree. Review of Systems PHQ Score Initial Depression Screen Score: 0 no fever, chills, malaise, myalgia. no rash/lesions. no chest pain, palpitations, or SOB. no abdominal pain, nausea, vomiting. no unilateral calf swelling, redness, pain Physical Exam Vitals & Measurements HR: 90(Peripheral) BP: 136/87 HT: 66 in HT: 168 cm WT: 52 kg WT: 114.4 lb BMI: 18.42 General: nontoxic, NAD Mouth: moist mucosa Lungs: normal respiratory effort Cardio: regular rate, good distal perfusion Abdomen: nondistended, no suprapubic distention or tenderness, no CVA tenderness Neurologic: Grossly normal Skin: No rashes or suspicious lesions Assessment/Plan S/p Cysto/UD done 08/17/[address] Harris.[1] no improvement in sx w dilation. 1. Mixed incontinence (N39.46: Mixed incontinence) Continues taking Tolterodine 2mg QD. [1] UA today negative for blood and infection. PFPT #3 today. Initially we attempted anal manometry but pt found this uncomfortable after a few reps so we removed the manometer. She tried a few more reps with just the vaginal probe. When engaging the lower abdominals she was able to do a fair pelvic contraction and hold it about 5-7 seconds. When I would assistant womens volleyball coach her to not use the lower abs, she was unable to contract only the pelvic floor. Says it hurts when she does that. Ordered: 76231 EMG anal/[place]incter no needle 82805 Biofeedback training, perineal muscles, anorectal 11277 Anorectal Manometry 82173 ELECTRICAL STIMULATION 30047 Urnls Dip Stick Auto w/o Microscopy POC 43720 2. Pelvic pain (R10.2: Pelvic and perineal pain) Pt requested rx for Ibuprofen 800mg as she has been taking 4 ibuprofen 200mg's at a time to help w pelvic pain. was sent to [facility] today for pain. Discussed the medication side effects, and the patient will monitor closely for these, as well as for symptom improvement. If severe side effects occur, the medication should be stopped and the office notified. advised not to take regularly. and to take w food. 3. Constipation (K59.00: Constipation, unspecified) Pt also reports chronic issues w constipation. says this has been since childhood. one time in college they almost took her to surgery for appendicitis but realized all her pain was from profound constipation. required enemas for days. struggling w constipation as an adult. I wasn't aware of this when we started the Detrol LA. pt reports she eats a lot of dairy and this makes the problem worse. I explained the Detrol can also contribute to constipation. would like her to stop this as constipation can make her urgency, frequency, incontinence, and pelvic floor dysfunction worse. 4. Smoker (F17.200: Nicotine dependence, unspecified, uncomplicated) Increased risk for urothelial cancer. Smoking cessation has been discussed previously. [2] Ordered: Current tobacco smoker 1034F Orders: ibuprofen, 800 mg = 1 tab(s), Oral, q3hr, with food or milk, # 30 tab(s), Refills(s) 3, Pharmacy: [facility]/pharmacy #[id number], 168, cm, 05/16/23 9:58:00 EDT, Height/Length Dosing, 52, kg, 05/16/23 9:58:00 EDT, Weight Dosing I am at a bit of a loss with this pt. She isn't making progress despite several PFPT appts and several weeks of attempting the exercises at home. Matters are complicated by longstanding constipation and pelvic pain. I am going to reach out to [facility] and see if they would feel comfortable seeing this pt/have other approach. Will stop the Detrol for now so we have more of a 'clean slate'. Hoping if we can get the constipation under control and the pelvic floor strengthened then the pain and urinary sx will improve. F/u pending discussion w [facility]. Follow-up With When Contact Information GIANNA KAPLAN PA-C, URL [address] [place] [place] [address] [phone] Patient Education Steps to Quit Smoking Kegel Exercises Documentation recorded by the emery Lara accurately reflects the services(s) I performed and decisions made by me. Authenticated by Gianna Kaplan PA-C on 05/16/2023 11:22:46. IShy, personally scribed for Gianna Kaplan PA-C on 05/16/2023 10:24:59. . 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 Normal [facility] Comment on above: Result Comment: Elec tronically Signed By: GIANNA KAPLAN PA-C\.br\Date and Time Signed: 05/16/23 11:34 EDT\.br\Electronically Co-Signed By: Shy Lara\.br\Date and Time Co-Signed: 05/16/23 10:27 EDT Patient Educationon 05-09-20 Patient Education Normal [facility] EMG Electromyographyon 05-07 EMG Electromyography [id number]:127 Normal [facility] Ambulatory Visit Summaryon 0 05-02-2023 Ambulatory Visit Summary KATY BANUELOS :1975 [id number] Visit Date:05/02/2023 Ambulatory Visit Instructions Your Diagnosis Mixed incontinence Smoker Tests Performed Urnls Dip Stick Auto w/o Microscopy POC 49474 Your Care Team Attending Physician - GIANNA KAPLAN PA-C Primary Care Physician - FERNANDA CONCEPCION MD This Is Your Medications List Contact prescribing physician if questions or concerns alprazolam (alprazolam 1 mg Tab) cetirizine (cetirizine 10 mg Tab) iron polysaccharide (ProFe 180 mg oral capsule) omeprazole (omeprazole 20 mg Cap-DR) tolterodine (Detrol LA 2 mg Cap-ER) Procedures Performed Cystourethroscopy with dilation of urethral stricture (08/17/2022), Colonoscopy (2021), Hysteroscopy (2018), Colposcopy (2015), LEEP (2008), Tubal ligation (2007), Extraction of wisdom tooth (1995). Discharge Vitals Heart Rate (Peripheral) 81 Blood Pressure 124/94 Height 168 cm Height 66 in Weight 52 kg Weight 114.4 lb BMI 18.42 What to do next Scheduled Follow-Up Appointments Sunday 9:30 AM EDT With: GIANNA KAPLAN PA-C Where: [facility] Invalid Interpretation Code [address] [place] [address]- \. br\ Sunday 9:30 AM EDT \.br\ With: GIANNA KAPLAN PA-C\.br\ Where: [facility] Patient Educationon 05-02-20 Patient Education Obstetrics and Gynec ology Kegel Exercises Kegel exercises can help strengthen your pelvic floor muscles. The pelvic floor is a group of muscles that support your rectum, small intestine, and bladder. In females, pelvic floor muscles also help support the uterus. These muscles help you control the flow of urine and stool (feces). Kegel exercises are painless and simple. They do not require any equipment. Your provider may suggest Kegel exercises to: ? Improve bladder and bowel control. ? Improve sexual response. ? Improve weak pelvic floor muscles after surgery to remove the uterus (hysterectomy) or after , in females. ? Improve weak pelvic floor muscles after prostate gland removal or surgery, in males. Kegel exercises involve squeezing your pelvic floor muscles. These are the same muscles you squeeze when you try to stop the flow of urine or keep from passing gas. The exercises can be done while sitting, standing, or lying down, but it is best to vary your position. Ask your health care provider which exercises are safe for you. Do exercises exactly as told by your health care provider and adjust them as directed. Do not begin these exercises until told by your health care provider. Exercises How to do Kegel exercises: 1. Squeeze your pelvic floor muscles tight. You should feel a tight lift in your rectal area. If you are a female, you should also feel a tightness in your vaginal area. Keep your stomach, buttocks, and legs relaxed. 2. Hold the muscles tight for up to 10 seconds. 3. Breathe normally. 4. Relax your muscles for up to 10 seconds. 5. Repeat as told by your health care provider. Repeat this exercise daily as told by your health care provider. Continue to do this exercise for at least 4?6 weeks, or for as long as told by your health care provider. You may be referred to a physical therapist who can help you learn more about how to do Kegel exercises. Depending on your condition, your health care provider may recommend: ? Varying how long you squeeze your muscles. ? Doing several sets of exercises every day. ? Doing exercises for several weeks. ? Making Kegel exercises a part of your regular exercise routine. This information is not intended to replace advice given to you by your health care provider. Make sure you discuss any questions you have with your health care provider. Document Revised: 01/12/2022 Document Reviewed: 01/12/2022 [employer] Patient Education ? 2022 [employer]. Urology Urinary Incontinence Urinary incontinence refers to a condition in which a person is unable to control where and when to pass urine. A person with this condition will urinate involuntarily. This means that the person urinates when he or she does not mean to. What are the causes? This condition may be caused by: ? Medicines. ? Infections. ? Constipation. ? Overactive bladder muscles. ? Weak bladder muscles. ? Weak pelvic floor muscles. These muscles provide support for the bladder, intestine, and, in women, the uterus. ? Enlarged prostate in men. The prostate is a gland near the bladder. When it gets too big, it can pinch the urethra. With the urethra blocked, the bladder can weaken and lose the ability to empty properly. ? Surgery. ? Emotional factors, such as anxiety, stress, or post-traumatic stress disorder (PTSD). ? Spinal cord injury, nerve injury, or other neurological conditions. ? Pelvic organ prolapse. This happens in women when organs move out of place and into the vagina. This movement can prevent the bladder and urethra from working properly. What increases the risk? The following factors may make you more likely to develop this condition: ? Age. The older you are, the higher the risk. ? Obesity. ? Being physically inactive. ? and childbirth. ? Menopause. ? Diseases that affect the nerves or spinal cord. ? Long-term, or chronic, coughing. This can increase pressure on the bladder and pelvic floor muscles. What are the signs or symptoms? Symptoms may vary depending on the type of urinary incontinence you have. They include: ? A sudden urge to urinate, and passing urine involuntarily before you can get to a bathroom (urge incontinence). ? Suddenly passing urine when doing activities that force urine to pass, such as coughing, laughing, exercising, or sneezing (stress incontinence). ? Needing to urinate often but urinating only a small amount, or constantly dribbling urine (overflow incontinence). ? Urinating because you cannot get to the bathroom in time due to a physical disability, such as arthritis or injury, or due to a communication or thinking problem, such as Alzheimer's disease (functional incontinence). How is this diagnosed? This condition may be diagnosed based on: ? Your medical history. ? A physical exam. ? Tests, such as: ? Urine tests. ? X-rays of your kidney and bladder (more content not included)... Normal [facility] Urology Office/Clinic Noteon 05-02-2023 Urology Office/Clinic Note Chief Complaint #2 PFPT HPI Staff Pt is here for PFPT #2 have you been consistent with your home exercises this week? somewhat, having suprapubic pain when doing exercises have you noticed any worsening in your symptoms this week? yes, the changes noted are: more leakage and pain have you noticed any improvement in your symptoms this week? no do you have any UTI sx (burning, foul odor, cloudy urine, etc)? no in office UA: NOT suspicious for UTI Current urinary medications: Tolterodine 2mg ER qd History of Present Illness staff HPI reviewed and agree. Review of Systems PHQ Score Initial Depression Screen Score: 0 no fever, chills, malaise, myalgia. no rash/lesions. no chest pain, palpitations, or SOB. no abdominal pain, nausea, vomiting. no unilateral calf swelling, redness, pain Physical Exam Vitals & Measurements HR: 81(Peripheral) BP: 124/94 HT: 66 in HT: 168 cm WT: 52 kg WT: 114.4 lb BMI: 18.42 General: nontoxic, NAD Mouth: moist mucosa Lungs: normal respiratory effort Cardio: regular rate, good distal perfusion Abdomen: nondistended, no suprapubic distention or tenderness, no CVA tenderness Neurologic: Grossly normal Skin: No rashes or suspicious lesions Assessment/Plan 1. Mixed incontinence (N39.46: Mixed incontinence) S/p Cysto/UD done 08/17/[address] Harris. Continues taking Tolterodine 2mg QD. UA today negative for blood and infection. Pt reports she is still experiencing worsening leakage and has new pelvic pain/soreness. Sx started a few days after starting the exercises and have persisted. Explained we likely overdid it. Will back off on home regimen this week. No exercises today or tomorrow. then resume at reduced rate. call early next week w update. if still sore, will cancel next week's appt and push back 1 week. PFPT #2 today. Home exercise program prescribed 4x per day: Kegel - Contract - 3 Relax - 10 Reps - 3 Quick Flicks - 3 Pt will return in 1 week(s) for session #3. 2. Smoker (F17.200: Nicotine dependence, unspecified, uncomplicated) Increased risk for urothelial cancer. Smoking cessation has been discussed previously. Follow-up With When Contact Information EJ ELLIS, GIANNA Jimenez, URL [address] [place] [place] [address] [phone] Additional Instructions: PFPT #3 on 05/09/23 Patient Education Kegel Exercises Urinary Incontinence Documentation recorded by the mildredibe Shy Lara accurately reflects the services(s) I performed and decisions made by me. Authenticated by Gianna Kaplan PA-C on 05/02/2023 11:20:16. I, Shy Lara, personally scribed for Gianna Kaplan PA-C on 05/02/2023 11:00:17. . Problem List/Past Medical History Ongoing Difficulty voiding Feeling of incomplete bladder emptying Mixed incontinence Postinfective urethral stricture in female Smoker Historical Incomplete bladder emptying Urinary retention Procedure/Surgical History Cystourethroscopy with dilation of urethral stricture (08/17/2022), Colonoscopy (2021), Hysteroscopy (2018), Colposcopy (2015), LEEP (2008), Tubal ligation (2007), Extraction of wisdom tooth (1995). Medications alprazolam 1 mg Tab cetirizine 10 mg Tab, 10 mg= 1 tab(s), Oral, Daily, PRN Detrol LA 2 mg Cap-ER, 2 mg= 1 cap(s), Oral, Daily, 11 refills omeprazole 20 mg Cap-DR, 20 mg= 1 cap(s), Oral, Daily ProFe 180 mg oral capsule Allergies No Known Allergies No Known Medication Allergies Social History Alcohol - Medium Risk, 06/18/2020 Current, Beer, 1-2 times per month, Previous treatment: None. Alcohol use interferes with work or home: No. Drinks more than intended: No. Others hurt by drinking: No. Ready to change: No. Household alcohol concerns: No., 06/18/2020 Substance Abuse - Denies Substance Abuse, 06/18/2020 Tobacco - Medium Risk, 06/18/2020 4 or less cigarettes(less than 1/4 pack)/day in last 30 days Tobacco Use:. Cigarettes, Previous treatment: None. Ready to change: No. Household tobacco concerns: No., 05/02/2023 Family History Bladder cancer: Father. Diabetes: Father. Leukemia: Grandparent. Prostate cancer: Father. Renal failure syndrome: Father. Immunizations Vaccine Date Status influenza virus vaccine, inactivated 05/24/2022 Recorded influenza virus vaccine, inactivated 05/16/2021 Recorded diphtheria/pertussis, acel/tetanus adult 04/20/2020 Recorded influenza virus vaccine, inactivated 06/10/2019 Recorded influenza virus vaccine, inactivated 08/31/2018 Recorded influenza virus vaccine, inactivated 06/20/2016 Recorded Lab Results Ambulatory Point of Care Results Bilirubin Urine Dipstick: Negative (05/02/23 10:46:00) Blood Urine Dipstick: Negative (05/02/23 10:46:00) Glucose Urine Dipstick: Negative (05/02/23 10:46:00) Ketones Urine Dipstick: Negative (05/02/23 10:46:00) Leukocytes Urine Dipstick: Negative (05/02/23 10:46:00) Nitrite Urine Dipstick: Negative (05/02/23 10:46:00) (more content not included)... Normal [facility] Comment on above: Result Comment: Elec tronically Signed By: GIANNA KAPLAN PA-C\.br\Date and Time Signed: 05/02/23 11:20 EDT\.br\Electronically Co-Signed By: Shy Lara\.br\Date and Time Co-Signed: 05/02/23 11:10 EDT Consent for Procedure/Surger yon 04-26-2023 Consent for Procedure/Surgery [id number]:127 Normal [facility] EMG Electromyographyon 04-26 EMG Electromyography [id number]:127 Normal [facility] Ambulatory Visit Summaryon 0 04-25-2023 Ambulatory Visit Summary KATY BANUELOS :1975 Visit Date:04/25/2023 Ambulatory Visit Instructions Your Diagnosis Mixed incontinence Smoker Tests Performed Urnls Dip Stick Auto w/o Microscopy POC 72384 Your Care Team Attending Physician - GIANNA KAPLAN PA-C Primary Care Physician - FERNANDA CONCEPCION MD This Is Your Medications List Contact prescribing physician if questions or concerns alprazolam (alprazolam 1 mg Tab) cetirizine (cetirizine 10 mg Tab) iron polysaccharide (ProFe 180 mg oral capsule) omeprazole (omeprazole 20 mg Cap-DR) tolterodine (Detrol LA 2 mg Cap-ER) Procedures Performed Cystourethroscopy with dilation of urethral stricture (08/17/2022), Colonoscopy (2021), Hysteroscopy (2018), Colposcopy (2015), LEEP (2009), Tubal ligation (2007), Extraction of wisdom tooth (1995). Discharge Vitals Heart Rate (Peripheral) 74 Blood Pressure 117/86 Height 168 cm Height 66 in Weight 52 kg Weight 114.4 lb BMI 18.42 What to do next Scheduled Follow-Up Appointments Sunday 10:30 AM EDT With: GIANNA KAPLAN PA-C Where: [facility] Invalid Interpretation Code [address] [place] [address]- \. br\ Sunday 9:30 AM EDT \.br\ With: GIANNA KAPLAN PA-C\.br\ Where: [facility] Patient Educationon 04-25-20 23 Patient Education Urology Pelvic Floor Dysfunction, Female Pelvic floor dysfunction (PFD) is a condition that results when the group of muscles and connective tissues that support the organs in the pelvis (pelvic floor muscles) do not work well. These muscles and their connections form a sling that supports the colon and bladder. In women, they also support the uterus. PFD causes pelvic floor muscles to be too weak, too tight, or both. In PFD, muscle movements are not coordinated. This may cause bowel or bladder problems. It may also cause pain. What are the causes? This condition may be caused by an injury to the pelvic area or by a weakening of pelvic muscles. This often results from and childbirth or other types of strain. In many cases, the exact cause is not known. What increases the risk? The following factors may make you more likely to develop this condition: ? Having chronic bladder tissue inflammation (interstitial cystitis). ? Being an older person. ? Being overweight. ? History of radiation treatment for cancer in the pelvic region. ? Previous pelvic surgery, such as removal of the uterus (hysterectomy). What are the signs or symptoms? Symptoms of this condition vary and may include: ? Bladder symptoms, such as: ? Trouble starting urination and emptying the bladder. ? Frequent urinary tract infections. ? Leaking urine when coughing, laughing, or exercising (stress incontinence). ? Having to pass urine urgently or frequently. ? Pain when passing urine. ? Bowel symptoms, such as: ? Constipation. ? Urgent or frequent bowel movements. ? Incomplete bowel movements. ? Painful bowel movements. ? Leaking stool or gas. ? Unexplained genital or rectal pain. ? Genital or rectal muscle spasms. ? Low back pain. Other symptoms may include: ? A heavy, full, or aching feeling in the vagina. ? A bulge that protrudes into the vagina. ? Pain during or after sex. How is this diagnosed? This condition may be diagnosed based on: ? Your symptoms and medical history. ? A physical exam. During the exam, your health care provider may check your pelvic muscles for tightness, spasm, pain, or weakness. This may include a rectal exam and a pelvic exam. In some cases, you may have diagnostic tests, such as: ? Electrical muscle function tests. ? Urine flow testing. ? X-ray tests of bowel function. ? Ultrasound of the pelvic organs. How is this treated? Treatment for this condition depends on the symptoms. Treatment options include: ? Physical therapy. This may include Kegel exercises to help relax or strengthen the pelvic floor muscles. ? Biofeedback. This type of therapy provides feedback on how tight your pelvic floor muscles are so that you can learn to control them. ? Internal or external massage therapy. ? A treatment that involves electrical stimulation of the pelvic floor muscles to help control pain (transcutaneous electrical nerve stimulation, or TENS). ? Sound wave therapy (ultrasound) to reduce muscle spasms. ? Medicines, such as: ? Muscle relaxants. ? Bladder control medicines. Surgery to reconstruct or support pelvic floor muscles may be an option if other treatments do not help. Follow these instructions at home: Activity ? Do your usual activities as told by your health care provider. Ask your health care provider if you should modify any activities. ? Do pelvic floor strengthening or relaxing exercises at home as told by your physical therapist. Lifestyle ? Maintain a healthy weight. ? Eat foods that are high in fiber, such as beans, whole grains, and fresh fruits and vegetables. ? Limit foods that are high in fat and processed sugars, such as fried or sweet foods. ? Manage stress with relaxation techniques such as yoga or meditation. General instructions ? If you have problems with leakage: ? Use absorbable pads or wear padded underwear. ? Wash frequently with mild soap. ? Keep your genital and anal area as clean and dry as possible. ? Ask your health care provider if you should try a barrier cream to prevent skin irritation. ? Take warm baths to relieve pelvic muscle tension or spasms. ? Take [id number] and prescription medicines only as told by your health care provider. ? Keep all follow-up visits. How is this prevented? The cause of PFD is not always known, but there are a few things you can do to reduce the risk of developing this condition, including: ? Staying at a healthy weight. ? Getting regular exercise. ? Managing stress. Contact a health care provider if: ? Your symptoms are not improving with home care. ? You have signs or symptoms of PFD that get worse at home. ? You develop new signs or symptoms. ? You have signs of a urinary tract infection, such as: ? Fever. ? Chills. ? Increased urinary frequency. ? A burning feeling when urinating. ? You have not had a bowel movement in 3 days (constipa (more content not included)... Normal [facility] Urology Office/Clinic Noteon 04-25-2023 Urology Office/Clinic Note Chief Complaint #1 PFPT HPI Staff Pt is here for PFPT #1. Baseline urinary symptoms: urgency moderate daytime frequency q 30-60 mins nocturia x2 urge incontinence moderate stress incontinence severe BAILEY vs UUI BAILEY more bothersome than UUI incontinence protection: thin pads changes 1-2 times per day pelvic pain at rest mild pelvic pain with intercourse n/a Quality of life: If you were to spend the rest of your life with your urinary condition just the way it is now, how would you feel about that? miserable Current urinary medications: tolterodine 2 mg ER qd Previous treatments tried: oxybutynin History of Present Illness staff HPI reviewed and agree. Review of Systems PHQ Score Initial Depression Screen Score: 0 no fever, chills, malaise, myalgia. no rash/lesions. no chest pain, palpitations, or SOB. no abdominal pain, nausea, vomiting. no unilateral calf swelling, redness, pain Physical Exam Vitals & Measurements HR: 74(Peripheral) BP: 117/86 HT: 66 in HT: 168 cm WT: 52 kg WT: 114.4 lb BMI: 18.42 General: nontoxic, NAD Mouth: moist mucosa Lungs: normal respiratory effort Cardio: regular rate, good distal perfusion Abdomen: nondistended, no suprapubic distention or tenderness, no CVA tenderness Neurologic: Grossly normal Skin: No rashes or suspicious lesions Assessment/Plan 1. Mixed incontinence (N39.46: Mixed incontinence) S/p Cysto/UD done 08/17/22. Continues taking Tolterodine 2mg QD. UA today negative for blood and infection. PFPT #1 today. Pt did well identifying the correct muscle. Initially they were doing more of a quick flick, with coaching she was able to contract & hold but very little strength/endurance. Did utilize their abs quite a bit but was improving as we went along. Home exercise program prescribed 4x per day: Kegel - Contract - 3 Relax - 10 Reps - 5 Quick Flicks - 5 Pt will return in 1 week(s) for session #2. 2. Smoker (F17.200: Nicotine dependence, unspecified, uncomplicated) Increased risk for urothelial cancer. cessation discussed/encouraged. Follow-up With When Contact Information GIANNA KAPLAN PA-C, URL [address] [place] [address] [id number] Additional Instructions: PFPT #2 on 05/02/23 Patient Education Pelvic Floor Dysfunction, Female Documentation recorded by the emery Lara accurately reflects the services(s) I performed and decisions made by me. Authenticated by Gianna Kaplan PA-C on 04/25/2023 10:25:07. Shy James, personally scribed for Gianna Kaplan PA-C on 04/25/2023 10:15:30. . Problem List/Past Medical History Ongoing Difficulty voiding Feeling of incomplete bladder emptying Mixed incontinence Postinfective urethral stricture in female Smoker Historical Incomplete bladder emptying Urinary retention Procedure/Surgical History Cystourethroscopy with dilation of urethral stricture (08/17/2022), Colonoscopy (2021), Hysteroscopy (2018), Colposcopy (2015), LEEP (2009), Tubal ligation (2007), Extraction of wisdom tooth (1995). Medications alprazolam 1 mg Tab cetirizine 10 mg Tab, 10 mg= 1 tab(s), Oral, Daily, PRN Detrol LA 2 mg Cap-ER, 2 mg= 1 cap(s), Oral, Daily, 11 refills omeprazole 20 mg Cap-DR, 20 mg= 1 cap(s), Oral, Daily ProFe 180 mg oral capsule Allergies No Known Allergies No Known Medication Allergies Social History Alcohol - Medium Risk, 06/18/2020 Current, Beer, 1-2 times per month, Previous treatment: None. Alcohol use interferes with work or home: No. Drinks more than intended: No. Others hurt by drinking: No. Ready to change: No. Household alcohol concerns: No., 06/18/2020 Substance Abuse - Denies Substance Abuse, 06/18/2020 Tobacco - Medium Risk, 06/18/2020 4 or less cigarettes(less than 1/4 pack)/day in last 30 days Tobacco Use:. Cigarettes, Previous treatment: None. Ready to change: No. Household tobacco concerns: No., 04/25/2023 Family History Bladder cancer: Father. Diabetes: Father. Leukemia: Grandparent. Prostate cancer: Father. Renal failure syndrome: Father. Immunizations Vaccine Date Status influenza virus vaccine, inactivated 05/24/2022 Recorded influenza virus vaccine, inactivated 05/16/2021 Recorded diphtheria/pertussis, acel/tetanus adult 04/20/2020 Recorded influenza virus vaccine, inactivated 06/10/2019 Recorded influenza virus vaccine, inactivated 08/31/2018 Recorded influenza virus vaccine, inactivated 06/20/2016 Recorded Lab Results Ambulatory Point of Care Results Bilirubin Urine Dipstick: Negative (04/25/23 09:53:00) Blood Urine Dipstick: Negative (04/25/23 09:53:00) Glucose Urine Dipstick: Negative (04/25/23 09:53:00) Ketones Urine Dipstick: Negative (04/25/23 09:53:00) Leukocytes Urine Dipstick: Negative (04/25/23 09:53:00) Nitrite Urine Dipstick: Negative (04/25/23 09:53:00) Protein Urine Dipstick: Negative (04/25/23 09:53:00) Specific Grav (more content not included)... Normal [facility] Comment on above: Result Comment: Elec tronically Signed By: GIANNA KAPLAN PA-C\.br\Date and Time Signed: 04/25/23 10:25 EDT\.br\Electronically Co-Signed By: Shy Lara\.br\Date and Time Co-Signed: 04/25/23 10:22 EDT VIT D 1 25 DIHYDROXYon 12-24 Calcitriol(1,25 di-OH Vit D) 55.9 pg/mL Normal 24.8-81.5 [facility] Comment on above: Performed By: #### V [id number] #### [facility] [address] [place] [address] Dr. Barbra Albrecht FSHon 12-22-2022 FSH 4.7 mIU/mL Normal [facility] Comment on above: Result Comment: Adul t Female: Follicular phase 3.5 - 12.5 Ovulation phase 4.7 - 21.5 Luteal phase 1.7 - 7.7 Postmenopausal 25.8 - 134.8 Performed By: #### L BCFSH #### [facility] [address] [place] [address] Dr. Barbra Albrecht LUTEINIZING HORMONE (LH)on 0 12-22-2022 LH 5.6 mIU/mL Normal [facility] Comment on above: Result Comment: Adul t Female: Follicular phase 2.4 - 12.6 Ovulation phase 14.0 - 95.6 Luteal phase 1.0 - 11.4 Postmenopausal 7.7 - 58.5 Performed By: #### F ERR, FETIBC, VITB12 #### [facility] [address] [address] [address] Barbra Albrecht CBC AUTO DIFFon 12-21-2022 BASO # 0.1 103/ul Normal 0.0-0.1 [facility] Comment on above: Performed By: #### F ERR, FETIBC, VITB12 #### [facility] [address] [address] [address] Barbra Albrecht Basophils/100 WBC (Bld) 0.5 % Normal 0.2-2.0 [facility] Comment on above: Performed By: #### F ERR, FETIBC, VITB12 #### [facility] [address] [place] [address] Dr. Barbra Albrecht EO # 0.0 103/ul Normal 0.0-0.7 [facility] Comment on above: Performed By: #### F ERR, FETIBC, VITB12 #### [facility] [address] [place] [address] Dr. Barbra Albrecht Eosinophils/100 WBC (Bld) 0.4 % Critically low 0.9-7.0 [facility] Comment on above: Performed By: #### F ERR, FETIBC, VITB12 #### [facility] [address] [place] [address] Dr. Barbra Albrecht Erythrocyte distribution width (RBC) [Ratio] 12.2 % Normal 11.0-15.0 [facility] Comment on above: Performed By: #### F ERR, FETIBC, VITB12 #### [facility] [address] [place] [address] Dr. Barbra Albrecht Hematocrit (Bld) [Volume fraction] 39.2 % Normal 36.0-48.0 [facility] Comment on above: Performed By: #### F ERR, FETIBC, VITB12 #### [facility] [address] [place] [address] Dr. Barbra Albrecht Hemoglobin (Bld) [Mass/Vol] 13.5 g/dL Normal 12.0-16.0 [facility] Comment on above: Performed By: #### F ERR, FETIBC, VITB12 #### [facility] [address] [place] [address] Dr. Barbra Albrecht IG # 0.05 10e3/ul Critically high 0.00-0.03 [facility] Comment on above: Performed By: #### F ERR, FETIBC, VITB12 #### [facility] [address] [place] [address] Dr. Barbra Albrecht IG % 0.5 % Normal 0.0-0.5 [facility] Comment on above: Performed By: #### F ERR, FETIBC, VITB12 #### [facility] [address] [place] [address] Dr. Barbra Albrecht LYMPH # 1.4 103/ul Normal 1.2-3.8 [facility] Comment on above: Performed By: #### F ERR, FETIBC, VITB12 #### [facility] [address] [place] [address] Dr. Barbra Albrecht Lymphocytes/100 WBC (Bld) 15.1 % Critically low 20.5-60.0 [facility] Comment on above: Performed By: #### F ERR, FETIBC, VITB12 #### [facility] [address] [place] [address] Dr. Barbra Albrecht MANUAL DIFF REQ NO Normal [facility] Comment on above: Performed By: #### F ERR, FETIBC, VITB12 #### [facility] [address] [place] [address] Dr. Barbra Albrecht MCH (RBC) [Entitic mass] 34.5 pg Critically high 26.7-34.0 [facility] Comment on above: Performed By: #### F ERR, FETIBC, VITB12 #### [facility] [address] [place] [address] Dr. Barbra Albrecht MCHC (RBC) [Mass/Vol] 34.4 g/dL Normal 29.9-35.2 [facility] Comment on above: Performed By: #### F ERR, FETIBC, VITB12 #### [facility] [address] [place] [address] Dr. Barbra Albrecht MCV (RBC) [Entitic vol] 100.3 fL Critically high 81.0-99.0 [facility] Comment on above: Performed By: #### F ERR, FETIBC, VITB12 #### [facility] [address] [place] [address] Dr. Barbra Albrecht MONO # 0.4 103/ul Normal 0.3-0.8 [facility] Comment on above: Performed By: #### F ERR, FETIBC, VITB12 #### [facility] [address] [place] [address] Dr. Barbra Albrecht Monocytes/100 WBC (Bld) 4.7 % Normal 1.7-12.0 [facility] Comment on above: Performed By: #### F ERR, FETIBC, VITB12 #### [facility] [address] [place] [address] Dr. Barbra Albrecht NEUT # 7.4 103/ul Critically high 1.4-6.5 [facility] Comment on above: Performed By: #### F ERR, FETIBC, VITB12 #### [facility] [address] [place] [address] Dr. Barbra Albrecht Neutrophils/100 WBC (Bld) 78.8 % Critically high 43.0-75.0 [facility] Comment on above: Performed By: #### F ERR, FETIBC, VITB12 #### [facility] [address] [place] [address] Dr. Barbra Albrecht Platelet mean volume (Bld) [Entitic vol] 9.1 fL Critically low 9.5-13.5 [facility] Comment on above: Performed By: #### F ERR, FETIBC, VITB12 #### [facility] [address] [place] [address] Dr. Barbra Albrecht PLT 256 103/ul Normal 150-450 [facility] Comment on above: Performed By: #### F ERR, FETIBC, VITB12 #### [facility] [address] [place] [address] Dr. Barbra Albrecht RBC 3.91 106/ul Critically low 4.20-5.40 [facility] Comment on above: Performed By: #### F ERR, FETIBC, VITB12 #### [facility] [address] [place] [address] Dr. Barbra Albrecht WBC 9.4 103/ul Normal 4.0-11.0 [facility] Comment on above: Performed By: #### F ERR, FETIBC, VITB12 #### [facility] [address] [place] [address] Dr. Barbra Albrecht FERRITINon 12-21-2022 Ferritin [Mass/Vol] 58.0 ng/mL Normal 6.2-137.0 [facility] Comment on above: Performed By: #### F ERR, FETIBC, VITB12 #### [facility] [address] [place] [address] Dr. Barbra Albrecht IRON AND TIBCon 12-21-2022 % SATURATION 40.5 % Normal [facility] Comment on above: Performed By: #### F ERR, FETIBC, VITB12 #### [facility] [address] [place] [address] Dr. Barbra Albrecht Iron [Mass/Vol] 134.0 ug/dL Normal 50.0-170.0 [facility] Comment on above: Performed By: #### F ERR, FETIBC, VITB12 #### [facility] [address] [place] [address] Dr. Barbra Albrecht TIBC DIRECT 331.0 ug/dL Normal 250.0-450. 0 [facility] Comment on above: Performed By: #### F ERR, FETIBC, VITB12 #### [facility] [address] [place] [address] Dr. Barbra Albrecht VITAMIN B12on 12-21-2022 Cobalamin (Vitamin B12) [Mass/Vol] 799.0 pg/mL Normal 193.0-986. 0 [facility] Comment on above: Performed By: #### F ERR, FETIBC, VITB12 #### [facility] [address] [place] [address] Dr. Barbra Albrecht XR FOOT LEANDRO MIN 3 VIEWSon XR FOOT LEANDRO MIN 3 VIEWS EXAMINATION: XR FOOT LEANDRO MIN 3 VIEWS HISTORY: Pain in both feet COMPARISON: 11/06/2022 FINDINGS: RIGHT FINDINGS: BONES: Normal. No significant arthropathy or acute abnormality. SOFT TISSUES: Negative. No visible soft tissue swelling. OTHER: Negative. LEFT FINDINGS: BONES: Normal. No significant arthropathy or acute abnormality. SOFT TISSUES: Negative. No visible soft tissue swelling. OTHER: Negative. IMPRESSION: RIGHT CONCLUSION: Normal LEFT CONCLUSION: Normal Electronically authenticated by: VIKRAM OSUNA Date: 2022-12-14 15:38 Normal [facility] XR ANKLE RT MIN 3 VIEWSon XR ANKLE RT MIN 3 VIEWS EXAM: XR ANKLE RT MIN 3 VIEWS HISTORY: Fall. COMPARISON: None. TECHNIQUE: AP, mortise and lateral views of the right ankle performed. FINDINGS: The bony alignment and mineralization are within normal limits. There is no fracture. The plafond and talar dome are smoothly marginated. The ankle mortise is anatomic. The joint spaces are maintained. There is no soft tissue abnormality. IMPRESSION: Unremarkable right ankle series. Electronically authenticated by: GIGI WOODS Date: 2022-11-06 13:26 Normal [facility] XR FOOT RT MIN 3 VIEWSon XR FOOT RT MIN 3 VIEWS EXAM: XR FOOT RT MIN 3 VIEWS HISTORY: Unspecified fall Acute right 5th MT pain x5 days COMPARISON: 04/19/2021 TECHNIQUE: 3 views were obtained of the right foot. FINDINGS: An acute fracture is not identified. A cortical irregularity is not detected. There is no significant joint space narrowing or osteophyte formation. A foreign body is not identified. No significant soft tissue swelling is observed. IMPRESSION: 1. Normal right foot. Electronically authenticated by: BOLA MARROQUIN Date: 2022-11-06 12:20 Normal [facility] CPKon 10-31-2022 CK [Catalytic activity/Vol] 143 U/L Normal 26-192 [facility] Comment on above: Performed By: #### F ERR, FETIBC, VITB12 #### [facility] [address] [place] [address] Dr. Bar[facility]bre[facility]1 Normal <=20 [facility] Comment on above: Performed By: #### F ERR, FETIBC, VITB12 #### [facility] [address] [place] [address] Dr. Barbra Albrecht TSHon 10-31-2022 TSH 0.719 uIU/mL Normal 0.358-3.74 0 [facility] Comment on above: Performed By: #### F ERR, FETIBC, VITB12 #### [facility] [address], [place] [address] Dr. Barbra Albrecht VIT B12 AND FOLATEon 023 Cobalamin (Vitamin B12) [Mass/Vol] 1283.0 pg/mL Critically high 193.0-986. 0 [facility] Comment on above: Performed By: #### B 12FOL #### [facility] [address], [place] [address] Dr. Barbra Albrecht FOLATE 26.80 ng/mL Normal 8.60-58.90 [facility] Comment on above: Performed By: #### B 12FOL #### [facility] [address], [place] [address] Dr. Barbra Albrecht XR CHEST 2 Von 09-28-2022 XR CHEST 2 V EXAM: XR CHEST 2 V HISTORY: Chronic cough for 3 months. COMPARISON: 09/28/2020 TECHNIQUE: Upright PA and lateral chest x-ray FINDINGS: The heart is not enlarged and the vasculature is not distended. No acute infiltrate, effusion or pneumothorax is identified. The osseous structures are intact. IMPRESSION: No acute infiltrate or evidence of cardiac decompensation. The overall appearance of the chest is unchanged. Electronically authenticated by: GIGI SARMIENTO Date: 2022-09-28 14:48 Normal [facility] Basophils Auto (Bld) [#/Vol] Ordered By: Kye Apodaca on 09-13-2022 Basophils (Bld) [#/Vol] 0.1 10*3/uL 0.0-0.2 [facility] Basophils/100 WBC Auto (Bld) Ordered By: Kye Apodaca on 09-13-2022 Basophils/100 WBC (Bld) 0.9 % . [facility] CT biopsyOrdered By: Kye gutierrez on 09-13-2022 Transferrin [Mass/Vol] 209 mg/dL 180-380 [facility] Eosinophils Auto (Bld) [#/Vo l]Ordered By: Kye Apodaca on 09-13-2022 Eosinophils (Bld) [#/Vol] 0.0 10*3/uL 0.0-0.45 [facility] Eosinophils/100 WBC Auto (Bl d)Ordered By: Kye Apodaca on 09-13-2022 Eosinophils/100 WBC (Bld) 0.5 % . [facility] Erythrocyte distribution wid th Auto (RBC) [Ratio]Ordered By: Kye Apodaca on 09-13-2022 Erythrocyte distribution width (RBC) [Ratio] 14.8 % 11.9-15.3 [facility] Ferritin [Mass/volume] in Se rum or PlasmaOrdered By: Kye Apodaca on 09-13-2022 Ferritin [Mass/Vol] 62.9 ng/mL 11-306.8 [facility] Hematocrit Auto (Bld) [Volum e fraction]Ordered By: Kye Apodaca on 09-13-2022 Hematocrit (Bld) [Volume fraction] 38.9 % 34.0-46.4 [facility] Hemoglobin [Mass/volume] in BloodOrdered By: Kye Apodaca on 09-13-2022 Hemoglobin (Bld) [Mass/Vol] 13.4 g/dL 11.8-15.4 [facility] Iron [Mass/volume] in Serum or PlasmaOrdered By: Kye Apodaca on 09-13-2022 Iron [Mass/Vol] 70 ug/dL 40-150 [facility] Iron binding capacity [Mass/ volume] in Serum or PlasmaOrdered By: Kye Apodaca on 09-13-2022 Iron binding capacity [Mass/Vol] 293 ug/dL 255-450 [facility] Iron saturation [Mass Fracti on] in Serum or PlasmaOrdered By: Kye Apodaca on 09-13-2022 Iron saturation [Mass fraction] 23.0 % 20-50 [facility] Leukocytes [#/volume] correc gilson for nucleated erythrocytes in Blood by Automated counOrdered By: Kye Apodaca on 09-13-2022 WBC corrected for nucl RBC Auto (Bld) [#/Vol] 8.6 10*3/uL 3.8-11.6 [facility] Lymphocytes Auto (Bld) [#/Vo l]Ordered By: Kye Apodaca on 09-13-2022 Lymphocytes (Bld) [#/Vol] 1.4 10*3/uL 1.00-4.8 [facility] Lymphocytes/100 WBC Auto (Bl d)Ordered By: Kye Apodaca on 09-13-2022 Lymphocytes/100 WBC (Bld) 16.3 % . [facility] MCH Auto (RBC) [Entitic mass ]Ordered By: Kye Apodaca on 09-13-2022 MCH (RBC) [Entitic mass] 34.1 pg 24.7-34.3 [facility] MCHC Auto (RBC) [Mass/Vol]Or dered By: Kye Apodaca on 09-13-2022 MCHC (RBC) [Mass/Vol] 34.5 g/dL 32.0-35.0 [facility] MCV Auto (RBC) [Entitic vol] Ordered By: Kye Apodaca on 09-13-2022 MCV (RBC) [Entitic vol] 98.9 fL 80-100 [facility] Monocytes Auto (Bld) [#/Vol] Ordered By: Kye Apodaca on 09-13-2022 Monocytes (Bld) [#/Vol] 0.4 10*3/uL 0.0-0.8 [facility] Monocytes/100 WBC Auto (Bld) Ordered By: Kye Apodaca on 09-13-2022 Monocytes/100 WBC (Bld) 5.0 % . [facility] Neutrophils Auto (Bld) [#/Vo l]Ordered By: Kye Apodaca on 09-13-2022 Neutrophils (Bld) [#/Vol] 6.6 10*3/uL 1.8-7.7 [facility] Neutrophils/100 WBC Auto (Bl d)Ordered By: Kye Apodaca on 09-13-2022 Neutrophils/100 WBC (Bld) 77.3 % . [facility] Nucleated erythrocytes [Pres ence] in Blood by Automated countOrdered By: Kye Apodaca on 09-13-2022 Nucleated RBC Auto Ql (Bld) 0.1 /100{WBC} 0-0.5 [facility] Platelet mean volume Auto (B ld) [Entitic vol]Ordered By: Kye Apodaca on 09-13-2022 Platelet mean volume (Bld) [Entitic vol] 7.8 fL 6.3-10.7 [facility] Platelets Auto (Bld) [#/Vol] Ordered By: Kye Apodaca on 12-28-2022 Platelets (Bld) [#/Vol] 309 10*3/uL 150-450 [facility] RBC Auto (Bld) [#/Vol]Ordere d By: Kye Apodaca on 09-13-2022 RBC (Bld) [#/Vol] 3.93 10*6/uL 3.60-5.00 [facility] WBC Auto (Bld) [#/Vol]Ordere d By: Kye Apodaca on 09-13-2022 WBC (Bld) [#/Vol] 8.6 10*3/uL 3.8-11.6 [facility] Covid-19 PCR ([facility])on 07-18 SARS-CoV-2 (COVID-19) RNA CATRACHITO+probe Ql (Unsp spec) Not detected Normal NOT DETECTED [facility] Comment on above: Result Comment: This test is not yet approved or cleared by the [place] FDA. When there are no FDA-approved or cleared tests available, and other criteria are met, FDA can make tests available under an emergency access mechanism called an Emergency Use Authorization (EUA). The EUA for this test is supported by the [place] of Health and Human Service's (HHS's) declaration that circumstances exist to justify the emergency use of in vitro diagnostics for the detection and/or diagnosis of the virus that causes COVID-19. This EUA will remain in effect (meaning this test can be used) for the duration of the COVID-19 declaration justifying emergency of IVDs, unless it is terminated or revoked by FDA (after which the test may no longer be used). When diagnostic testing is negative, the possibility of a false negative should be considered in the context of a patient's recent exposures and the presence of clinical signs and symptoms consistent with SARS-CoV-2. Performed By: #### C VDTB #### [facility] [address] [place] [address] Dr. Barbra Albrecht INFLUENZA A AND B AGon 07-27 INFLUANEGH SEE BELOW Normal [facility] Comment on above: Result Comment: Nega tive for Flu A protein angiten. Infection due to Flu A cannot be ruled out. Flu A angiten in the sample may be below the detection limit of the test. Performed By: #### F ERR, FETIBC, VITB12 #### [facility] [address] [address] [address] Barbra Albrecht [facility] SEE BELOW Normal [facility] Comment on above: Result Comment: Nega tive for Flu B protein antigen. Infection due to Flu B cannot be ruled out. Flu B antigen in the sample may be below the detection limit of the test. Performed By: #### F ERR, FETIBC, VITB12 #### [facility] [address] [address] [address] Barbra Albrecht INFLUENZA A AG Negative Normal NEGATIVE SEE COMMENT [facility] Comment on above: Performed By: #### F ERR, FETIBC, VITB12 #### [facility] [address] [address] [address] Barbra Albercht INFLUENZA B AG Negative Normal NEGATIVE SEE COMMENT [facility] Comment on above: Performed By: #### F ERR, FETIBC, VITB12 #### [facility] [address] [address] [address] Barbra Albrecht INTERNAL CONTROLS Within Normal Limits Normal Wi thin Normal Limits [facility] Comment on above: Performed By: #### F ERR, FETIBC, VITB12 #### [facility] [address] [address] [address] Barbra Albrecht IgA [Mass/volume] in Serum o r PlasmaOrdered By: Kye Apodaca on 07-18-2022 IgA [Mass/Vol] 127 mg/dL 87-352 [facility] Comment on above: Performed at: [place] [id number] Director: Andres Arboleda PhD, Phone: [phone] No Panel InformationOrdered By: Kye Apodaca on 07-18-2022 Endomysial IgA Antibody Negative Negative [facility] Serum gliadin peptide IgA an tibody assay (units/volume)Ordered By: Kye Apodaca on 07-18-2022 Gliadin peptide IgA Qn (S) 5 units 0-19 [facility] Comment on above: Negative 0 - 19 Weak Positive 20 - 30 Moderate to Strong Positive >30 Serum gliadin peptide IgG an tibody assay (units/volume)Ordered By: Kye Apodaca on 07-18-2022 Gliadin peptide IgG Qn (S) 3 units 0-19 [facility] Comment on above: Negative 0 - 19 Weak Positive 20 - 30 Moderate to Strong Positive >30 Serum tissue transglutaminas e (tTG) IgA antibody assay (units/volume)Ordered By: Kye Apodaca on 07-18-2022 tTG IgA Qn (S) <2 U/mL 0-3 [facility] Comment on above: Negative 0 - 3 Weak Positive 4 - 10 Positive >10 Tissue Transglutaminase (tTG) has been identified as the endomysial antigen. Studies have demonstr- ated that endomysial IgA antibodies have over 99% specificity for gluten sensitive enteropathy. Serum tissue transglutaminas e (tTG) IgG antibody assay (units/volume)Ordered By: Kye Apodaca on 07-18-2022 tTG IgG Qn (S) <2 U/mL 0-5 [facility] Comment on above: Negative 0 - 5 Weak Positive 6 - 9 Positive >9 XR Chest 2 Views*on 06-13-20 22 XR Chest 2 Views* CLINICAL HISTORY: Co ugh, phlegm COMPARISON: FINDINGS: The cardiomediastinal silhouette is unremarkable. The lungs are free of infiltrates effusions or consolidations. The bones and soft tissues are within normal limits. IMPRESSION: There are no acute cardiopulmonary changes Report reported and signed by ADAM ALCANTARA on 06/13/2022 1556 Normal [facility] Specialist CBC AUTO DIFFon 03-28-2022 BASO # 0.1 103/ul Normal 0.0-0.1 [facility] Comment on above: Performed By: #### C BC #### [facility] [address] [address] [address] Barbra Albrecht Basophils/100 WBC (Bld) 0.6 % Normal 0.2-2.0 [facility] Comment on above: Performed By: #### C BC #### [facility] [address], [place] [address] Dr. Barbra Albrecht EO # 0.1 103/ul Normal 0.0-0.7 [facility] Comment on above: Performed By: #### C BC #### [facility] [facility] [address] [place] [address] Dr. Barbra Albrecht Eosinophils/100 WBC (Bld) 1.1 % Normal 0.9-7.0 [facility] Comment on above: Performed By: #### C BC #### [facility] [address] [place] [address] Dr. Barbra Albrecht Erythrocyte distribution width (RBC) [Ratio] 12.5 % Normal 11.0-15.0 [facility] Comment on above: Performed By: #### C BC #### [facility] [address] [place] [address] Dr. Barbra Albrecht Hematocrit (Bld) [Volume fraction] 36.3 % Normal 36.0-48.0 [facility] Comment on above: Performed By: #### C BC #### [facility] [address] [place] [address] Dr. Barbra Albrecht Hemoglobin (Bld) [Mass/Vol] 11.9 g/dL Critically low 12.0-16.0 [facility] Comment on above: Performed By: #### C BC #### [facility] [address] [place] [address] Dr. Barbra Albrecht IG # 0.04 10e3/ul Critically high 0.00-0.03 [facility] Comment on above: Performed By: #### C BC #### [facility] [address] [place] [address] Dr. Barbra Albrecht IG % 0.4 % Normal 0.0-0.5 [facility] Comment on above: Performed By: #### C BC #### [facility] [address] [place] [address] Dr. Barbra Albrecht LYMPH # 1.8 103/ul Normal 1.2-3.8 [facility] Comment on above: Performed By: #### C BC #### [facility] [address] [place] [address] Dr. Barbra Albrecht Lymphocytes/100 WBC (Bld) 17.5 % Critically low 20.5-60.0 [facility] Comment on above: Performed By: #### C BC #### [facility] [address] [place] [address] Dr. Barbra Albrecht MANUAL DIFF REQ NO Normal [facility] Comment on above: Performed By: #### C BC #### [facility] [address] [place] [address] Dr. Barbra Albrecht MCH (RBC) [Entitic mass] 33.6 pg Normal 26.7-34.0 [facility] Comment on above: Performed By: #### C BC #### [facility] [address] [place] [address] Dr. Barbra Albrecht MCHC (RBC) [Mass/Vol] 32.8 g/dL Normal 29.9-35.2 [facility] Comment on above: Performed By: #### C BC #### [facility] [address] [place] [address] Dr. Barbra Albrecth MCV (RBC) [Entitic vol] 102.5 fL Critically high 81.0-99.0 [facility] Comment on above: Performed By: #### C BC #### [facility] [address] [place] [address] Dr. Barbra Albrecht MONO # 0.6 103/ul Normal 0.3-0.8 [facility] Comment on above: Performed By: #### C BC #### [facility] [address] [place] [address] Dr. Barbra Albrecht Monocytes/100 WBC (Bld) 6.0 % Normal 1.7-12.0 [facility] Comment on above: Performed By: #### C BC #### [facility] [address] [place] [address] Dr. Barbra Albrecht NEUT # 7.5 103/ul Critically high 1.4-6.5 [facility] Comment on above: Performed By: #### C BC #### [facility] [address] [place] [address] Dr. Barbra Albrecht Neutrophils/100 WBC (Bld) 74.4 % Normal 43.0-75.0 [facility] Comment on above: Performed By: #### C BC #### [facility] [address] [place] [address] Dr. Barbra Albrecht Platelet mean volume (Bld) [Entitic vol] 9.3 fL Critically low 9.5-13.5 [facility] Comment on above: Performed By: #### C BC #### [facility] [address] [place] [address] Dr. Barbra Albrecht PLT 283 103/ul Normal 150-450 [facility] Comment on above: Performed By: #### C BC #### [facility] [address] [place] [address] Dr. Barbra Albrecht RBC 3.54 106/ul Critically low 4.20-5.40 [facility] Comment on above: Performed By: #### C BC #### [facility] [address] [place] [address] Dr. Barbra Albrecht WBC 10.0 103/ul Normal 4.0-11.0 [facility] Comment on above: Performed By: #### C BC #### [facility] [address] [place] [address] Dr. Barbra Albrecht LIPASEon 03-28-2022 Lipase [Catalytic activity/Vol] 114.0 U/L Normal 73.0-393.0 [facility] Comment on above: Performed By: #### C MP, LIPA, LIPID #### [facility] [address] [place] [address] Dr. Barbra Albrecht LIPID PROFILEon 03-28-2022 CHOL-HDL RATIO NORM SEE BELOW Normal [facility] Comment on above: Result Comment: 3.3 - 4.4 LOW RISK 4.4 - 7.1 AVERAGE RISK 7.1 - 11.0 MODERATE RISK >11.0 HIGH RISK Performed By: #### C MP, LIPA, LIPID #### [facility] [address] [place] [address] Dr. Barbra Albrecht Cholesterol [Mass/Vol] 210 mg/dL Critically high <=200 [facility] Comment on above: Performed By: #### C MP, LIPA, LIPID #### [facility] [address] [place] [address] Dr. Barbra Albrecht Cholesterol in HDL [Mass/Vol] 68 mg/dL Critically high 40-60 [facility] Comment on above: Performed By: #### C MP, LIPA, LIPID #### [facility] [address] [address] [address] Barbra Albrecht Cholesterol in LDL [Mass/Vol] 132.0 mg/dL Normal [facility] Comment on above: Performed By: #### C MP, LIPA, LIPID #### [facility] [address] [address] [address] Barbra Albrecht Cholesterol.total/Cho lesterol in HDL [Mass ratio] 3.1 {ratio} Normal [facility] Comment on above: Performed By: #### C MP, LIPA, LIPID #### [facility] [address] [place] [address] Dr. Barbra Albrecht HDL NORMAL > or = 60 mg/dl - LO W CARDIOVASCULAR RISK <40 mg/dl - HIGH CARDIOVASCULAR RISK Normal [facility] Comment on above: Performed By: #### C MP, LIPA, LIPID #### [facility] [address] [place] [address] Dr. Barbra Albrecht LDL CALC NORMAL SEE BELOW Normal [facility] Comment on above: Result Comment: <100 mg/dl OPTIMAL 100 - 129 mg/dl NEAR OR ABOVE OPTIMAL 130 - 159 mg/dl BORDERLINE HIGH 160 - 189 mg/dl HIGH >190 mg/dl VERY HIGH Performed By: #### C MP, LIPA, LIPID #### [facility] [address] [address] [address] Barbra Albrecht Triglyceride [Mass/Vol] 50 mg/dL Normal <=150 [facility] Comment on above: Performed By: #### C MP, LIPA, LIPID #### [facility] [address] [address] [address] Barbra Albrecht VLDL CALC 10.0 mg/dL Normal [facility] Comment on above: Performed By: #### C MP, LIPA, LIPID #### [facility] [address] [address] [address] Barbra Albrecht PROF 14(COMP METB)on 022 Albumin [Mass/Vol] 3.9 g/dL Normal 3.4-5.0 [facility] Comment on above: Performed By: #### F ERR, FETIBC, VITB12 #### [facility] [address] [place] [address] Dr. Barbra Albrecht Albumin/Globulin [Mass ratio] 1.3 {ratio} Normal [facility] Comment on above: Performed By: #### F ERR, FETIBC, VITB12 #### [facility] [address] [place] [address] Dr. Barbra Albrecht ALP [Catalytic activity/Vol] 57 U/L Normal 46-116 [facility] Comment on above: Performed By: #### F ERR, FETIBC, VITB12 #### [facility] [address] [place] [address] Dr. Barbra Albrecht ALT [Catalytic activity/Vol] 21 U/L Normal 14-59 [facility] Comment on above: Performed By: #### F ERR, FETIBC, VITB12 #### [facility] [address] [place] [address] Dr. Barbra Albrecht Anion gap [Moles/Vol] 12.1 mmol/L Normal [facility] Comment on above: Performed By: #### F ERR, FETIBC, VITB12 #### [facility] [address] [place] [address] Dr. Barbra Albrecht AST [Catalytic activity/Vol] 13 U/L Critically low 15-37 [facility] Comment on above: Performed By: #### F ERR, FETIBC, VITB12 #### [facility] [address] [place] [address] Dr. Barbra Albrecht Bilirubin [Mass/Vol] 0.2 mg/dL Normal 0.2-1.0 [facility] Comment on above: Performed By: #### F ERR, FETIBC, VITB12 #### [facility] [address] [place] [address] Dr. Barbra Albrecht Calcium [Mass/Vol] 8.9 mg/dL Normal 8.5-10.1 [facility] Comment on above: Performed By: #### F ERR, FETIBC, VITB12 #### [facility] [address] [address] [address] Barbra Albrecht Chloride [Moles/Vol] 103 mmol/L Normal 98-107 [facility] Comment on above: Performed By: #### F ERR, FETIBC, VITB12 #### [facility] [address] [place] [address] Dr. Barbra Albrecht CO2 [Moles/Vol] 26.5 mmol/L Normal 21.0-32.[address] [facility] Comment on above: Performed By: #### F ERR, FETIBC, VITB12 #### [facility] [address] [place] [address] Dr. Barbra Albrecht Creatinine [Mass/Vol] 0.69 mg/dL Normal 0.55-1.02 [facility] Comment on above: Performed By: #### F ERR, FETIBC, VITB12 #### [facility] [address] [place] [address] Dr. Barbra Albrecht EGFR-AF MICRONESIAN >60 Normal >=[address] [facility] Comment on above: Performed By: #### F ERR, FETIBC, VITB12 #### [facility] [address] [place] [address] Dr. Barbra Albrecht EGFR-NON AF MICRONESIAN >60 Normal >=60 [facility] Comment on above: Performed By: #### F ERR, FETIBC, VITB12 #### [facility] [address] [place] [address] Dr. Barbra Albrecht Globulin (S) [Mass/Vol] 3.0 g/dL Normal [facility] Comment on above: Performed By: #### F ERR, FETIBC, VITB12 #### [facility] [address] [place] [address] Dr. Barbra Albrecht Glucose [Mass/Vol] 94 mg/dL Normal 74-106 [facility] Comment on above: Performed By: #### F ERR, FETIBC, VITB12 #### [facility] [address] [place] [address] Dr. Barbra Albrecht Potassium [Moles/Vol] 3.6 mmol/L Normal 3.5-5.1 [facility] Comment on above: Performed By: #### F ERR, FETIBC, VITB12 #### [facility] [address] [place] [address] Dr. Barbra Albrecht Protein [Mass/Vol] 6.9 g/dL Normal 6.4-8.2 [facility] Comment on above: Performed By: #### F ERR, FETIBC, VITB12 #### [facility] [address] [place] [address] Dr. Barbra Albrecht Sodium [Moles/Vol] 138 mmol/L Normal 136-145 [facility] Comment on above: Performed By: #### F ERR, FETIBC, VITB12 #### [facility] [address] [place] [address] Dr. Barbra Albrecht Urea nitrogen [Mass/Vol] 18.0 mg/dL Normal 7.0-18.0 [facility] Comment on above: Performed By: #### F ERR, FETIBC, VITB12 #### [facility] [address] [place] [address] Dr. Barbra Albrecht Urea nitrogen/Creatinine [Mass ratio] 26.1 mg/mg Normal [facility] Comment on above: Performed By: #### F ERR, FETIBC, VITB12 #### [facility] [address] [place] [address] Dr. Barbra Albrecht US Abdomen Completeon 2021 US Abdomen Complete EXAM: RUQ US CLINICAL HISTORY: pain FINDINGS: The liver is normal in size and echogenicity with a diameter of 16.8 cm. There are no solid or cystic lesions. There is no intra or extrahepatic bile duct dilatation. The common bile duct measures 2 mm. There is no free fluid. No gallstones, pericholecystic fluid or gallbladder wall thickening is identified. There is a 2 x 2 a 2 mm polyp along the anterior wall of the gallbladder. There are few hyperechoic foci in the gallbladder wall with cometail artifact indicating cholesterol crystals. The gallbladder wall measures 1.3 mm. The right kidney measures 11.4 x 5.5 x 4.0 cm. The left kidney measures 12.0 x 5.0 x 5.4 cm There is no hydronephrosis or hydroureter, there are no focal lesions. IMPRESSION: There are no acute changes. There is no evidence of cholecystitis. There is a 2 mm polyp of the gallbladder wall and there are a few cholesterol crystals in the gallbladder wall. Report reported and signed by ADAM ALCANTARA on 03/10/2022 1059 Normal [facility] US Pelvic Complete w/Transva ginalon 03-10-2022 US Pelvic Complete w/Transvaginal HISTORY: Pelvic pain for one year. History of tubal ligation. History of ablation. LMP 04/2021. TECHNIQUE: Sonography of the pelvis was performed by transvaginal and transabdominal techniques. Images were obtained and stored in a permanent archive. COMPARISON: Pelvic ultrasound 08/02/2021. RESULT: Uterus size: 7.3 x 4.6 x 6.1 cm -Myometrium: Normal sonographic appearance. -Endometrial echo complex: 0.6 cm areas that appear indistinct, correlating with history of endometrial ablation. -Cervix: normal Right ovary: Not visualized due to bowel gas. Left ovary: 3.9 x 3.3 x 2.6 cm 2.4 x 1.7 x 2.3 cm anechoic benign-appearing cyst/follicle. Normal vascular flow. Pelvis free fluid: Absent IMPRESSION: 2.4 cm benign-appearing left adnexal cyst/follicle. Right ovary not visualized. Changes from endometrial ablation within the uterus. Report reported and signed by Mark oJnes on 03/13/2022 0950 Normal [facility] SCREENING MAMMOGRAM W/TRAY, BILATERAL*on 02-22-2022 SCREENING MAMMOGRAM W/TRAY, BILATERAL* CLINICAL HISTORY: Screening Mammogram COMPARISON: Priors dating back to 2015 TECHNIQUE: 2D and 3D mammogram imaging of both breasts was performed. RESULT: DENSITY: The breast parenchyma is extremely dense, which lowers the sensitivity of the mammography and may obscure masses. There is no suspicious mass, asymmetry, architectural distortion, or calcification in either breast. No significant change since the prior mammograms. IMPRESSION: BIRADS 1 : NEGATIVE, NORMAL INTERVAL FOLLOW UP FOLLOW UP: 12 months DENSITY: Extremely dense MAMMOGRAPHY IS VERY IMPORTANT TO YOUR HEALTH. THE CURRENT [employer] AND [employer] GUIDELINES RECOMMENDS ANNUAL MAMMOGRAPHY BEGINNING AT AGE 41 THIS FACILITY USES A REMINDER SYSTEM TO ENSURE ALL PATIENTS RECEIVE REMINDER NOTIFICATIONS AT THE APPROPRIATE TIME BASED ON THE RECOMMENDATIONS OF THIS EXAM. Board Certified Radiologist. Accredited by the ACR and FDA. Report reported and signed by Mark Jones on 02/27/2022 1028 Normal [facility] [employer] Consult[employer] CULTURE URINEon 02-09-2022 CULTURE URINE Culture Observations : MODERATE GROWTH OF MIXED GENITAL JOHNNY. NO POTENTIAL PATHOGENS SEEN. Normal [facility] Comment on above: Performed By: #### F ERR, FETIBC, VITB12 #### [facility] [address] [address] [address] Barbra Albrecht Vital Signs Date Time Vital Sign Value Performing Clinician Melanie palafox 04-02-2025 08:30-0400 Body height 167.64 cm Fernanda Concepcion MD Work Phone: [facility] 04-02-2025 08:30-0400 Body mass index (BMI) [Ratio] 20.4 kg/m2 Fernanda Concepcion MD Work Phone: [facility] 04-02-2025 08:30-0400 Body weight 57.37 kg Fernanda Concepcion MD Work Phone: [facility] 04-02-2025 08:30-0400 Diastolic blood pressure 84 mm[Hg] Fernanda Concepcion MD Work Phone: [facility] 04-02-2025 08:30-0400 Heart rate 80 /min Fernanda Concepcion MD Work Phone: [facility] 04-02-2025 08:30-0400 Systolic blood pressure 126 mm[Hg] Fernanda Concepcion MD Work Phone: [facility] 03-18-2025 09:40-0400 Body height 167.64 cm Fernanda Concepcion MD Work Phone: [facility] 03-18-2025 09:40-0400 Body mass index (BMI) [Ratio] 19.3 kg/m2 Fernanda Concepcion MD Work Phone: [facility] 03-18-2025 09:40-0400 Body weight 54.43 kg Fernanda Concepcion MD Work Phone: [facility] 03-18-2025 09:40-0400 Diastolic blood pressure 72 mm[Hg] Fernanda Concepcion MD Work Phone: [facility] 03-18-2025 09:40-0400 Heart rate 89 /min Fernanda Concepcion MD Work Phone: [facility] 03-18-2025 09:40-0400 SaO2% (BldA) [Mass fraction] 98 % Fernanda Concepcion MD Work Phone: [facility] 03-18-2025 09:40-0400 Systolic blood pressure 104 mm[Hg] Fernanda Concepcion MD Work Phone: [facility] 03-03-2025 11:39-0400 Body height 167.64 cm Fernanda Concepcion MD Work Phone: [facility] 03-03-2025 11:39-0400 Body mass index (BMI) [Ratio] 19.8 kg/m2 Fernanda Concepcion MD Work Phone: [facility] 03-03-2025 11:39-0400 Body weight 55.79 kg Fernanda Concepcion MD Work Phone: [facility] 03-03-2025 11:39-0400 Diastolic blood pressure 81 mm[Hg] Fernanda Concepcion MD Work Phone: [facility] 03-03-2025 11:39-0400 Heart rate 75 /min Fernanda Concepcion MD Work Phone: [facility] 03-03-2025 11:39-0400 Systolic blood pressure 111 mm[Hg] Fernanda Concepcion MD Work Phone: [facility] 02-10-2025 15:05-0400 Body height 167.6 cm Marta David DO Work Phone: [facility] 02-10-2025 15:05-0400 Body mass index (BMI) [Ratio] 20.18 kg/m2 Marta David DO Work Phone: [facility] 02-10-2025 15:05-0400 Body weight 56.7 kg Marta David DO Work Phone: [facility] 02-10-2025 15:05-0400 Diastolic blood pressure 64 mm[Hg] Marta David DO Work Phone: [facility] 02-10-2025 15:05-0400 Heart rate 86 /min Marta David DO Work Phone: [facility] 02-10-2025 15:05-0400 SaO2% (BldA) [Mass fraction] 95 % Marta David DO Work Phone: [facility] 02-10-2025 15:05-0400 Systolic blood pressure 110 mm[Hg] Marta David DO Work Phone: [facility] 02-06-2025 09:04-0400 Body height 167.64 cm Fernanda Concepcion MD Work Phone: [facility] 02-06-2025 09:04-0400 Body mass index (BMI) [Ratio] 19.7 kg/m2 Fernanda Concepcion MD Work Phone: [facility] 02-06-2025 09:04-0400 Body temperature 97.8 [degF] Fernanda Concepcion MD Work Phone: [facility] 02-06-2025 09:04-0400 Body weight 55.33 kg Fernanda Concepcion MD Work Phone: [facility] 02-06-2025 09:04-0400 Diastolic blood pressure 77 mm[Hg] Fernanda Concepcion MD Work Phone: [facility] 02-06-2025 09:04-0400 Heart rate 77 /min Fernanda Concepcion MD Work Phone: [facility] 02-06-2025 09:04-0400 Respiratory rate 16 /min Fernanda Concepcion MD Work Phone: [facility] 02-06-2025 09:04-0400 SaO2% (BldA) [Mass fraction] 98 % Fernanda Concepcion MD Work Phone: [facility] 02-06-2025 09:04-0400 Systolic blood pressure 117 mm[Hg] Fernanda Concepcion MD Work Phone: [facility] 01-16-2025 17:36-0400 Body temperature 98.01 [degF] Markel Vicente INDUSTRIAL SOCIOLOGIST Work Phone: [facility] 01-16-2025 17:36-0400 Diastolic blood pressure 80 mm[Hg] Markel Vicente INDUSTRIAL SOCIOLOGIST Work Phone: [facility] 01-16-2025 17:36-0400 Heart rate 86 /min Markel Vicente INDUSTRIAL SOCIOLOGIST Work Phone: [facility] 01-16-2025 17:36-0400 SaO2% (BldA) [Mass fraction] 98 % Markel Vicente INDUSTRIAL SOCIOLOGIST Work Phone: [facility] 01-16-2025 17:36-0400 Systolic blood pressure 120 mm[Hg] Markel Vicente INDUSTRIAL SOCIOLOGIST Work Phone: [facility] 01-12-2025 09:13-0400 Body mass index (BMI) [Ratio] 18.88 kg/m2 Stevan Alicia MD Work Phone: [facility] 01-12-2025 09:13-0400 Body weight 53.07 kg Stevan Alicia MD Work Phone: [facility] 01-12-2025 09:13-0400 Diastolic blood pressure 76 mm[Hg] Stevan Alicia MD Work Phone: [facility] 01-12-2025 09:13-0400 Systolic blood pressure 122 mm[Hg] Stevan Alicia MD Work Phone: [facility] 01-06-2025 14:19-0400 Body height 167.6 cm Candice Palencia INDUSTRIAL SOCIOLOGIST Work Phone: [facility] 01-06-2025 14:19-0400 Body mass index (BMI) [Ratio] 19.05 kg/m2 Candice Gillmor INDUSTRIAL SOCIOLOGIST Work Phone: [facility] 01-06-2025 14:19-0400 Body weight 53.52 kg Candice Avalosmor INDUSTRIAL SOCIOLOGIST Work Phone: [facility] 01-06-2025 14:19-0400 Diastolic blood pressure 74 mm[Hg] Candice Baileymor INDUSTRIAL SOCIOLOGIST Work Phone: [facility] 01-06-2025 14:19-0400 Heart rate 87 /min Candice Baileymor INDUSTRIAL SOCIOLOGIST Work Phone: [facility] 01-06-2025 14:19-0400 SaO2% (BldA) [Mass fraction] 96 % Candice Baileymor INDUSTRIAL SOCIOLOGIST Work Phone: [facility] 01-06-2025 14:19-0400 Systolic blood pressure 112 mm[Hg] Candice Baileymor INDUSTRIAL SOCIOLOGIST Work Phone: [facility] 12-11-2024 10:03-0400 Body height 167.64 cm Fernanda Concepcion MD Work Phone: [facility] 12-11-2024 10:03-0400 Body mass index (BMI) [Ratio] 19.8 kg/m2 Fernanda Concepcion MD Work Phone: [facility] 12-11-2024 10:03-0400 Body weight 55.9 kg Fernanda Concepcion MD Work Phone: [facility] 12-11-2024 10:03-0400 Diastolic blood pressure 74 mm[Hg] Fernanda Concepcion MD Work Phone: [facility] 12-11-2024 10:03-0400 Heart rate 85 /min Fernanda Concepcion MD Work Phone: [facility] 12-11-2024 10:03-0400 Systolic blood pressure 117 mm[Hg] Fernanda Concepcion MD Work Phone: [facility] 08-20-2024 13:00-0500 Diastolic blood pressure 59 mm[Hg] Fernanda Concepcion MD Work Phone: [facility] 08-20-2024 13:00-0500 Heart rate 94 /min Fernanda Concepcion MD Work Phone: [facility] 08-20-2024 13:00-0500 Respiratory rate 18 /min Fernanda Concepcion MD Work Phone: [facility] 08-20-2024 13:00-0500 SaO2% (BldA) [Mass fraction] 97 % Fernanda Concepcion MD Work Phone: [facility] 08-20-2024 13:00-0500 Systolic blood pressure 122 mm[Hg] Fernanda Concepcion MD Work Phone: [facility] 08-20-2024 09:56-0500 Body height 167.64 cm Fernanda Concepcion MD Work Phone: [facility] 08-20-2024 09:56-0500 Body mass index (BMI) [Ratio] 19.5 kg/m2 Fernanda Concepcion MD Work Phone: [facility] 08-20-2024 09:56-0500 Body temperature 97.9 [degF] Fernanda Concepcion MD Work Phone: [facility] 08-20-2024 09:56-0500 Body weight 54.88 kg Fernanda Concepcion MD Work Phone: [facility] 08-20-2024 09:56-0500 Diastolic blood pressure 80 mm[Hg] Fernanda Concepcion MD Work Phone: [facility] 08-20-2024 09:56-0500 Heart rate 91 /min Fernanda Concepcion MD Work Phone: [facility] 08-20-2024 09:56-0500 Systolic blood pressure 119 mm[Hg] Fernanda Concepcion MD Work Phone: [facility] 08-12-2024 13:13-0500 Body temperature 98.1 [degF] Fernanda Concepcion MD Work Phone: [facility] 08-04-2024 10:30-0500 Body height 167.64 cm Fernanda Concepcion MD Work Phone: [facility] 08-04-2024 10:30-0500 Body mass index (BMI) [Ratio] 19.3 kg/m2 Fernnada Concepcion MD Work Phone: [facility] 08-04-2024 10:30-0500 Body temperature 97 [degF] Fernanda Concepcion MD Work Phone: [facility] 08-04-2024 10:30-0500 Body weight 54.43 kg Fernanda Concepcion MD Work Phone: [facility] 08-04-2024 10:30-0500 Diastolic blood pressure 84 mm[Hg] Fernanda Concepcion MD Work Phone: [facility] 08-04-2024 10:30-0500 Heart rate 103 /min Fernanda Concepcion MD Work Phone: [facility] 08-04-2024 10:30-0500 Respiratory rate 16 /min Fernanda Concepcion MD Work Phone: [facility] 08-04-2024 10:30-0500 SaO2% (BldA) [Mass fraction] 97 % Fernanda Concepcion MD Work Phone: [facility] 08-04-2024 10:30-0500 Systolic blood pressure 126 mm[Hg] Fernanda Concepcion MD Work Phone: [facility] 07-14-2024 08:42-0400 Body weight 53.07 kg MD Fernanda Concepcion Work Phone: [facility] 07-14-2024 08:42-0400 Diastolic blood pressure 80 mm[Hg] MD Fernanda Concepcion Work Phone: [facility] 07-14-2024 08:42-0400 Heart rate 89 /min MD Fernanda Concepcion Work Phone: [facility] 07-14-2024 08:42-0400 Systolic blood pressure 117 mm[Hg] MD Fernanda Concepcion Work Phone: [facility] 07-03-2024 14:50-0400 Body mass index (BMI) [Ratio] 19.05 kg/m2 Stevan Alicia MD Work Phone: [facility] 07-03-2024 14:50-0400 Body weight 53.52 kg Stevan Alicia MD Work Phone: [facility] 07-03-2024 14:50-0400 Diastolic blood pressure 64 mm[Hg] Stevan Alicia MD Work Phone: [facility] 07-03-2024 14:50-0400 Systolic blood pressure 120 mm[Hg] Stevan Ailcia MD Work Phone: [facility] 07-01-2024 15:14-0400 Body height 167.6 cm Marta David DO Work Phone: [facility] 07-01-2024 15:14-0400 Body mass index (BMI) [Ratio] 18.56 kg/m2 Marta David DO Work Phone: [facility] 07-01-2024 15:14-0400 Body weight 52.16 kg Marta David DO Work Phone: [facility] 07-01-2024 15:14-0400 Diastolic blood pressure 71 mm[Hg] Marta David DO Work Phone: [facility] 07-01-2024 15:14-0400 Heart rate 76 /min Marta David DO Work Phone: [facility] 07-01-2024 15:14-0400 SaO2% (BldA) [Mass fraction] 99 % Marta David DO Work Phone: [facility] 07-01-2024 15:14-0400 Systolic blood pressure 114 mm[Hg] Marta David DO Work Phone: [facility] 04-01-2024 08:36-0400 Body height 167.64 cm MD Fernanda Concepcion Work Phone: [facility] 04-01-2024 08:36-0400 Body mass index (BMI) [Ratio] 18.2 kg/m2 MD Fernanda Concepcion Work Phone: [facility] 04-01-2024 08:36-0400 Body weight 51.25 kg MD Fernanda Concepcion Work Phone: [facility] 04-01-2024 08:36-0400 Diastolic blood pressure 78 mm[Hg] MD Fernanda Concepcion Work Phone: [facility] 04-01-2024 08:36-0400 Heart rate 80 /min MD Fernanda Concepcion Work Phone: [facility] 04-01-2024 08:36-0400 Systolic blood pressure 115 mm[Hg] MD Fernanda Concepcion Work Phone: [facility] 03-14-2024 13:39-0400 Blood Pressure Location Girma Brandenjacobkyung [facility] 03-14-2024 13:39-0400 Diastolic blood pressure 68 mm[Hg] Girma Sandy [facility] 03-14-2024 13:39-0400 Heart rate 85 /min Girma Brandenofferson [facility] 03-14-2024 13:39-0400 Respiratory rate 16 /min Girma Sandy [facility] 03-14-2024 13:39-0400 SaO2% (BldA) [Mass fraction] 96 % Girma Kasiaerson [facility] 03-14-2024 13:39-0400 Systolic blood pressure 110 mm[Hg] Girma Oteroofferson [facility] 03-04-2024 11:48-0400 Diastolic blood pressure 84 mm[Hg] MD Fernanda Concepcion Work Phone: [facility] 03-04-2024 11:48-0400 Heart rate 66 /min MD Fernanda Concepcion Work Phone: [facility] 03-04-2024 11:48-0400 Respiratory rate 18 /min MD Fernanda Concepcion Work Phone: [facility] 03-04-2024 11:48-0400 SaO2% (BldA) [Mass fraction] 98 % MD Fernanda Concepcion Work Phone: [facility] 03-04-2024 11:48-0400 Systolic blood pressure 113 mm[Hg] MD Fernanda Concepcion Work Phone: [facility] 03-04-2024 10:10-0400 Body height 167.64 cm MD Fernanda Concepcion Work Phone: [facility] 03-04-2024 10:10-0400 Body weight 49.89 kg MD Fernanda Concepcion Work Phone: [facility] 01-30-2024 14:53-0400 Diastolic blood pressure 77 mm[Hg] Girma Brandenjacobkyung [facility] 01-30-2024 14:53-0400 Heart rate 81 /min Girma Delgado [facility] 01-30-2024 14:53-0400 SaO2% (BldA) [Mass fraction] 95 % Girma Delgado [facility] 01-30-2024 14:53-0400 Systolic blood pressure 116 mm[Hg] Girma Oterojarred [facility] 12-25-2023 10:43-0400 Body height 167.64 cm MD Fernanda Concepcion Work Phone: [facility] 12-25-2023 10:43-0400 Body mass index (BMI) [Ratio] 19.1 kg/m2 MD Fernanda Concepcion Work Phone: [facility] 12-25-2023 10:43-0400 Body weight 53.72 kg MD Fernanda Concepcion Work Phone: [facility] 12-25-2023 10:43-0400 Diastolic blood pressure 73 mm[Hg] MD Fernanda Concepcion Work Phone: [facility] 12-25-2023 10:43-0400 Heart rate 98 /min MD Fernanda Concepcion Work Phone: [facility] 12-25-2023 10:43-0400 Systolic blood pressure 114 mm[Hg] MD Fernanda Concepcion Work Phone: [facility] 12-10-2023 10:20-0400 Body height 167.64 cm MD Fernanda Concepcion Work Phone: [facility] 12-10-2023 10:20-0400 Body mass index (BMI) [Ratio] 18.8 kg/m2 MD Fernanda Concepcion Work Phone: [facility] 12-10-2023 10:20-0400 Body weight 53.07 kg MD Fernanda Concepcion Work Phone: [facility] 12-10-2023 10:20-0400 Diastolic blood pressure 78 mm[Hg] MD Fernanda Concepcion Work Phone: [facility] 12-10-2023 10:20-0400 Heart rate 87 /min MD Fernanda Concepcion Work Phone: [facility] 12-10-2023 10:20-0400 Systolic blood pressure 118 mm[Hg] MD Fernanda Concepcion Work Phone: [facility] 10-23-2023 07:20-0500 Body height 167.64 cm MD Fernanda Concepcion Work Phone: [facility] 10-23-2023 07:20-0500 Body weight 49.89 kg MD Fernanda Concepcion Work Phone: [facility] 08-20-2023 13:30-0500 Body height 167.64 cm Fernanda Concepcion Other [employer] [facility] [employer] Other 08-20-2023 13:30-0500 Body mass index (BMI) [Ratio] 18.49 kg/m2 Fernanda Concepcion Other [employer] Other 08-20-2023 13:30-0500 Body weight 51.98 kg Fernanda Concepcion Other [employer] Other 08-20-2023 13:30-0500 Diastolic blood pressure 86 mm[Hg] Fernanda Concepcion Other [employer] Other 08-20-2023 13:30-0500 Systolic blood pressure 122 mm[Hg] Fernanda Concepcion Other [employer] Other 07-18-2023 14:00-0400 Body height 167.64 cm Stefan Sharonda Other [employer] Other 07-18-2023 14:00-0400 Body mass index (BMI) [Ratio] 18.14 kg/m2 Stefan Sharonda Other [employer] Other 07-18-2023 14:00-0400 Body weight 50.98 kg Stefan Mcdonough Other [employer] Other 07-18-2023 14:00-0400 SaO2% (BldA) [Mass fraction] 98 % Stefan Sharonda Other [employer] Other 05-16-2023 09:54-0400 Blood Pressure Location GIANNA KAPLAN [facility] 05-16-2023 09:54-0400 Diastolic blood pressure 87 mm[Hg] GIANNA FRANCOISRY [facility] 05-16-2023 09:54-0400 Heart rate 90 /min GIANNA FRANCOISRY [facility] 05-16-2023 09:54-0400 Systolic blood pressure 136 mm[Hg] GIANNA EJ [facility] 05-09-2023 09:41-0400 Blood Pressure Location GIANNA EJ [facility] 05-09-2023 09:41-0400 Diastolic blood pressure 78 mm[Hg] GIANNA EJ [facility] 05-09-2023 09:41-0400 Heart rate 89 /min GIANNA EJ [facility] 05-09-2023 09:41-0400 Systolic blood pressure 117 mm[Hg] GIANNA EJ [facility] 05-02-2023 10:47-0400 Blood Pressure Location GIANNA EJ [facility] 05-02-2023 10:47-0400 Diastolic blood pressure 94 mm[Hg] GIANNA EJ [facility] 05-02-2023 10:47-0400 Heart rate 81 /min GIANNA EJ [facility] 05-02-2023 10:47-0400 Systolic blood pressure 124 mm[Hg] GIANNA EJ [facility] 04-25-2023 09:43-0400 Blood Pressure Location GIANNA EJ [facility] 04-25-2023 09:43-0400 Diastolic blood pressure 86 mm[Hg] GIANNA EJ [facility] 04-25-2023 09:43-0400 Heart rate 74 /min GIANNA KAPLAN [facility] 04-25-2023 09:43-0400 Systolic blood pressure 117 mm[Hg] GIANNA KAPLAN [facility] 03-30-2023 08:45-0400 Body height 167.64 cm Fernanda Concepcion Other [facility] [employer] Other 03-30-2023 08:45-0400 Body mass index (BMI) [Ratio] 19.21 kg/m2 Fernanda Concepcion Other [employer] Other 03-30-2023 08:45-0400 Body weight 53.98 kg Fernanda Concepcion Other [employer] Other 03-30-2023 08:45-0400 Diastolic blood pressure 72 mm[Hg] Fernanda Concepcion Other [employer] Other 03-30-2023 08:45-0400 Systolic blood pressure 112 mm[Hg] Fernnada Concepcion Other [employer] Other 02-23-2023 13:00-0400 Body height 167.64 cm Fernanda Concepcion Other [employer] Other 02-23-2023 13:00-0400 Body mass index (BMI) [Ratio] 20.01 kg/m2 Fernanda Concepcion Other [employer] Other 02-23-2023 13:00-0400 Body weight 56.25 kg Fernanda Concepcion Other [employer] Other 02-23-2023 13:00-0400 Diastolic blood pressure 89 mm[Hg] Fernanda Concepcion Other [employer] Other 02-23-2023 13:00-0400 Systolic blood pressure 135 mm[Hg] Fernanda Concepcion Other [employer] Other 12-18-2022 11:00-0400 Body height 167.64 cm Fernanda Concepcion Other [employer] Other 12-18-2022 11:00-0400 Body mass index (BMI) [Ratio] 20.82 kg/m2 Fernanda Concepcion Other [employer] Other 12-18-2022 11:00-0400 Body weight 58.51 kg Fernanda Concepcion Other [employer] Other 12-18-2022 11:00-0400 Diastolic blood pressure 90 mm[Hg] Fernanda Concepcion Other [employer] Other 12-18-2022 11:00-0400 SaO2% (BldA) [Mass fraction] 97 % Fernanda Concepcion Other [employer] Other 12-18-2022 11:00-0400 Systolic blood pressure 126 mm[Hg] Fernanda Concepcion Other [employer] Other 12-12-2022 08:33-0400 Blood Pressure Location GIANNA FRANCOISRY [facility] 12-12-2022 08:33-0400 Diastolic blood pressure 89 mm[Hg] GIANNA EJ [facility] 12-12-2022 08:33-0400 Heart rate 89 /min GIANNA EJ [facility] 12-12-2022 08:33-0400 Systolic blood pressure 122 mm[Hg] GIANNA KAPLAN [facility] 09-20-2022 11:28-0500 Body temperature 98.4 [degF] MD Stevan Alicia Work Phone: [facility] 09-20-2022 11:28-0500 Body weight 54.2 kg MD Stevan Alicia Work Phone: [facility] 09-20-2022 11:28-0500 Diastolic blood pressure 64 mm[Hg] MD Stevan Alicia Work Phone: [facility] 09-20-2022 11:28-0500 Heart rate 86 /min MD Stevan Alicia Work Phone: [facility] 09-20-2022 11:28-0500 Respiratory rate 18 /min MD Stevan Alicia Work Phone: [facility] 09-20-2022 11:28-0500 SaO2% (BldA) [Mass fraction] 100 % MD Stevan Alicia Work Phone: [facility] 09-20-2022 11:28-0500 Systolic blood pressure 116 mm[Hg] MD Stevan Alicia Work Phone: [facility] 08-17-2022 09:40-0500 Blood Pressure Location Willem RICE [facility] 08-17-2022 09:40-0500 Diastolic blood pressure 89 mm[Hg] Willem RICE [facility] 08-17-2022 09:40-0500 Heart rate 76 /min Willem RICE [facility] 08-17-2022 09:40-0500 Systolic blood pressure 145 mm[Hg] Willem RICE [facility] 07-18-2022 10:[id number] Body height 168.91 cm MD Stevan Alicia Work Phone: [facility] Encounters Encounter Date Encounter Type Care Provider Facility Start: 04-02-2025 End: 04-02-2025 ambulatory Fernanda Concepcion MD Work Phone: [facility] Work Phone: Start: 04-02-2025 End: 04-02-2025 Patient encounter procedure Fernanda Concepcion MD -[facility] Work Phone: Start: 03-27-2025 End: 03-27-2025 ambulatory Fernanda Concepcion MD Work Phone: [facility] Work Phone: Start: 03-27-2025 End: 03-27-2025 Patient encounter procedure Destiny Rodriguez MD -[facility] Work Phone: Start: 03-23-2025 End: 03-23-2025 ambulatory Fernanda Concepcion MD Work Phone: [facility] Work Phone: Start: 03-23-2025 End: 03-23-2025 Patient encounter procedure Tad Mark MD -[facility] Work Phone: Start: 03-18-2025 End: 03-18-2025 ambulatory Fernanda Concepcion MD Work Phone: [facility] Work Phone: Start: 03-18-2025 End: 03-18-2025 Patient encounter procedure Cathryn Lambert DO -[facility] Work Phone: Start: 03-10-2025 Non-patient / Non-visit Fernanda Concepcion MD -[facility] Work Phone: Start: 03-03-2025 End: 03-03-2025 Patient encounter procedure Fernanda Concepcion MD -[facility] Work Phone: Start: 03-02-2025 End: 03-02-2025 Patient encounter procedure Cathryn Lambert DO -[facility] Work Phone: Start: 02-25-2025 End: 02-25-2025 ambulatory Fernanda Concepcion MD Work Phone: [facility] Work Phone: Start: 02-25-2025 End: 02-25-2025 Patient encounter procedure Fernanda Concepcion MD Work Phone: [facility] Work Phone: Start: 02-10-2025 End: 02-10-2025 Office outpatient visit 25 minutes Marta Parker David DO Work Phone: [facility] Comment on above: Chronic obstructive pulmonary disease, unspecified COPD type (CMS/HCC) (Primary Dx); Cigarette smoker Start: 02-10-2025 End: 02-10-2025 ambulatory MARTA HERNANDEZ Not Available Start: 02-10-2025 End: 02-10-2025 Bamboo flowsheet Marta K David DO Work Phone: [facility] Start: 02-10-2025 End: 02-10-2025 Bamboo flowsheet Marta K David DO Work Phone: [facility] Start: 02-06-2025 End: 02-06-2025 Patient encounter procedure Fernanda Concepcion MD Work Phone: [facility] Work Phone: Start: 02-06-2025 End: 02-06-2025 ambulatory Fernanda Concepcion Facility:[facility] Start: 01-27-2025 Registered Recurring Fernanda cho MD Work Phone: [facility] Work Phone: Start: 01-27-2025 End: 01-27-2025 Patient encounter procedure Fernanda Concepcion MD Work Phone: [facility]-X-[facility] Start: 01-27-2025 End: 01-27-2025 ambulatory Fernanda Concepcion MD Work Phone: [facility] Work Phone: Start: 01-16-2025 End: 01-16-2025 Office outpatient visit 25 minutes Markel Vicente INDUSTRIAL SOCIOLOGIST Work Phone: [facility] Comment on above: Pain and swelling of toe of left foot (Primary Dx); Muscle strain of left foot, initial encounter Start: 01-16-2025 End: 01-16-2025 ambulatory MARKEL VICENTE Not Available Start: 01-12-2025 End: 01-12-2025 ambulatory STEVAN ALICIA Not Available Start: 01-12-2025 End: 01-12-2025 Office outpatient visit 15 minutes Stevan Alicia MD Work Phone: [facility] Comment on above: Encounter for gyneco logical examination without abnormal finding (Primary Dx); Encounter for screening for cervical cancer; Cysts of both ovaries; History of endometrial ablation; Amenorrhea; Asymptomatic menopausal state; Anemia, unspecified type; Other iron deficiency anemia; Abnormal TSH; Mood swings; Chronic vulvitis; HSV (herpes simplex virus) infection; Myoma Start: 01-12-2025 End: 01-12-2025 Patient encounter status Stevan Alicia MD Work Phone: [facility] Start: 01-06-2025 End: 01-06-2025 Office outpatient visit 25 minutes Candice Palencia INDUSTRIAL SOCIOLOGIST Work Phone: [facility] Comment on above: Paresthesias (Primar y Dx); Joint disease, temporomandibular; Neck pain; Foot pain, bilateral; Abnormal MRI, cervical spine; Bilateral occipital neuralgia Start: 01-06-2025 End: 01-06-2025 ambulatory CANDICE PALENCIA Not Available Start: 01-06-2025 End: 01-06-2025 Bamboo flowsheet Candice Palencia INDUSTRIAL SOCIOLOGIST Work Phone: [facility] Start: 01-06-2025 End: 01-06-2025 Bamboo flowsheet Candice Palencia INDUSTRIAL SOCIOLOGIST Work Phone: [facility] Start: 01-05-2025 End: 01-05-2025 ambulatory CANDICE PALENCIA Not Available Start: 12-26-2024 End: 12-26-2024 ambulatory Fernanda Concepcion MD Work Phone: [facility] Work Phone: Start: 12-26-2024 End: 12-26-2024 Patient encounter procedure Fernanda Concepcion MD Work Phone: [facility] Work Phone: Start: 12-11-2024 End: 12-11-2024 ambulatory Fernanda Concepcion MD Work Phone: [facility] Work Phone: Start: 12-11-2024 End: 12-11-2024 Patient encounter procedure Fernanda Concepcion MD Work Phone: [facility] Work Phone: Start: 11-14-2024 End: 11-14-2024 ambulatory Fernanda Concepcion MD Work Phone: [facility] Work Phone: Start: 11-14-2024 End: 11-14-2024 Patient encounter procedure Fernanda Concepcion MD Work Phone: [facility] Work Phone: Start: 11-10-2024 Non-patient / Non-visit Fernanda Concepcion MD Work Phone: [facility] Work Phone: Start: 11-05-2024 End: 11-05-2024 Patient encounter procedure Fernanda Concepcion MD Work Phone: [facility] [place] Work Phone: Start: 11-05-2024 End: 11-05-2024 ambulatory Fernanda Concepcion MD Work Phone: [facility] Work Phone: Start: 10-14-2024 Registered Recurring Fernanda cho MD [facility] Work Phone: Start: 10-03-2024 End: 10-03-2024 ambulatory Fernanda Concepcion MD Work Phone: [facility] Work Phone: Start: 10-03-2024 End: 10-03-2024 Patient encounter procedure Fernanda Concepcion MD Work Phone: [facility] Work Phone: Start: 08-20-2024 Registered Recurring Fernanda cho MD [facility] Work Phone: Start: 08-20-2024 End: 08-20-2024 Patient encounter procedure Fernanda Concepcion MD Work Phone: [facility] Work Phone: Start: 08-04-2024 Registered Recurring Fernanda cho MD [facility]: [facility] Work Phone: Start: 08-04-2024 End: 08-04-2024 ambulatory Fernanda Concepcion MD Work Phone: [facility] Work Phone: Start: 08-04-2024 End: 08-04-2024 Patient encounter procedure Fernanda Concepcion MD Work Phone: [facility] Work Phone: Start: 07-22-2024 End: 07-22-2024 Patient encounter procedure MD Fernanda Concepcion Work Phone: [facility] [place] Work Phone: Start: 07-22-2024 End: 07-22-2024 ambulatory MD Fernanda Concepcion Work Phone: [facility] Work Phone: Start: 07-17-2024 End: 07-17-2024 Office outpatient visit 15 minutes Stevan Alicia MD Work Phone: [facility] Comment on above: Mood swings; Vaginal itching; Vaginal discharge; Cysts of both ovaries; Abnormal CBC; Iron deficiency anemia, unspecified iron deficiency anemia type; Insomnia, unspecified type Start: 07-16-2024 End: 07-16-2024 ambulatory Fernanda Concepcion Facility:[facility] Start: 07-16-2024 End: 07-16-2024 Discharged Recurring Fernanda Concepcion MD Work Phone: [facility] Start: 07-16-2024 Registered Recurring MD Fernanda Concepcion Work Phone: [facility] Start: 07-14-2024 End: 07-14-2024 Telephone encounter Stevan Alicia MD Work Phone: [facility] Start: 07-14-2024 End: 07-14-2024 ambulatory MD Fernanda Concepcion Work Phone: [facility] Work Phone: Start: 07-14-2024 End: 07-14-2024 Patient encounter procedure MD Fernanda Concepcion Work Phone: [facility] Work Phone: Start: 07-10-2024 End: 07-10-2024 Orders Only Stevan Alicia MD Work Phone: [facility] Comment on above: Chronic vulvitis (Pr imary Dx) Start: 07-10-2024 Registered Recurring MD Fernanda Concepcion Work Phone: [facility] Start: 07-03-2024 End: 07-03-2024 Patient encounter status Stevan Alicia MD Work Phone: [facility] Start: 07-03-2024 End: 07-03-2024 Periodic 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 est 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 40-64yrs Stevan Alicia MD Work Phone: [facility] Comment on above: Amenorrhea (Primary Dx); Encounter for screening mammogram for malignant neoplasm of breast; Screening for malignant neoplasm of cervix; Encounter for gynecological examination without abnormal finding; History of endometrial ablation; Hx of ovarian cyst; Vaginal discharge; Thyroid disorder screening Start: 07-03-2024 End: 07-03-2024 ambulatory STEVAN ALICIA Not Available Start: 07-01-2024 End: 07-01-2024 Office outpatient visit 25 minutes Marta Elena David DO Work Phone: [facility] Comment on above: Chronic obstructive pulmonary disease, unspecified COPD type (CMS/HCC) (Primary Dx); Cigarette smoker Start: 07-01-2024 End: 07-01-2024 ambulatory MARTADIONICIO HERNANDEZ Not Available Start: 07-01-2024 End: 07-01-2024 Bamboo flowsheet Marta K David DO Work Phone: [facility] Start: 07-01-2024 End: 07-01-2024 Bamboo flowsheet Marta K David DO Work Phone: [facility] Start: 06-25-2024 End: 06-25-2024 ambulatory MD Fernanda Concepcion Work Phone: [facility] Work Phone: Start: 06-25-2024 End: 06-25-2024 Patient encounter procedure MD Fernanda Concepcion Work Phone: [facility] Physician [facility] Work Phone: Start: 06-24-2024 Registered Recurring MD Fernanda Concepcion Work Phone: [facility] Start: 05-13-2024 End: 05-13-2024 ambulatory MD Fernanda Concepcion Work Phone: [facility] Work Phone: Start: 05-13-2024 End: 05-13-2024 Patient encounter procedure MD Fernanda Concepcion Work Phone: [facility] Work Phone: Start: 05-07-2024 End: 05-08-2024 Pre-admission assessment Tad Thao [facility] Start: 04-07-2024 End: 04-07-2024 ambulatory STEVAN ALICIA Not Available Start: 04-02-2024 Patient encounter status MD Fernanda Concepcion Work Phone: [facility] Start: 04-01-2024 End: 04-01-2024 ambulatory MD Fernanda Concepcion Work Phone: [facility] Work Phone: Start: 04-01-2024 End: 04-01-2024 Encounter for general adult medical examination without abnormal findings MD Fernanda Concepcion Work Phone: [facility] Start: 04-01-2024 End: 04-01-2024 Patient encounter procedure MD Fernanda Concepcion Work Phone: [facility] Physician [facility] Work Phone: Start: 03-26-2024 End: 03-26-2024 Patient encounter procedure Tad Thao [facility] Start: 03-18-2024 End: 03-18-2024 ambulatory MD Fernanda Concepcion Work Phone: [facility] Work Phone: Start: 03-18-2024 End: 03-18-2024 Patient encounter procedure MD Fernanda Concepcion Work Phone: [facility] Work Phone: Start: 03-17-2024 End: 03-17-2024 Patient encounter procedure MD Fernanda Concepcion Work Phone: [facility] Health Work Phone: Start: 03-17-2024 End: 03-17-2024 ambulatory MD Fernanda Concepcion Work Phone: [facility] Work Phone: Start: 03-14-2024 End: 03-14-2024 ambulatory XXXX NONE [place] Start: 03-14-2024 End: 03-14-2024 Patient encounter procedure Girma Delgado [facility] Start: 03-05-2024 Non-patient / Non-visit MD Fernanda Concepcion Work Phone: [facility] Work Phone: Start: 03-04-2024 Non-patient / Non-visit MD Fernanda Concepcion Work Phone: [facility] Work Phone: Start: 03-04-2024 End: 03-04-2024 Admission to same day surgery center MD Fernanda Concepcion Work Phone: [facility] Work Phone: Start: 03-04-2024 End: 03-04-2024 ambulatory Imad Asaad Facility:[facility] Start: 02-12-2024 End: 02-12-2024 ambulatory MD Fernanda Concepcion Work Phone: [facility] Work Phone: Start: 02-12-2024 End: 02-12-2024 Patient encounter procedure MD Fernanda Concepcion Work Phone: [facility] [place] [facility] Work Phone: Start: 02-06-2024 End: 02-07-2024 ambulatory Girma Delgado [place] Start: 02-06-2024 ambulatory Girma Delgado [place] Start: 02-06-2024 End: 02-06-2024 Patient encounter procedure Girma Delgado [facility] Start: 01-30-2024 End: 01-30-2024 ambulatory PRASANTH RICHARDSON [place] Start: 01-30-2024 End: 01-30-2024 Patient encounter procedure Girma Delgado [facility] Start: 01-29-2024 End: 01-29-2024 ambulatory MD Fernanda Concepcion Work Phone: [facility] Work Phone: Start: 01-29-2024 End: 01-29-2024 Discharged Recurring MD Fernanda Concepcion Work Phone: [facility] [facility] Start: 01-08-2024 End: 01-08-2024 ambulatory MD Fernanda Concepcion Work Phone: [facility] Work Phone: Start: 01-08-2024 End: 01-08-2024 Patient encounter procedure MD Fernanda Concepcion Work Phone: [facility] [place] [facility] Work Phone: Start: 01-07-2024 Registered Recurring MD Fernanda Concepcion Work Phone: [facility] [facility] Start: 12-28-2023 End: 12-28-2023 ambulatory MD Fernanda Concepcion Work Phone: [facility] Work Phone: Start: 12-28-2023 End: 12-28-2023 Patient encounter procedure MD Fernanda Concepcion Work Phone: [facility] Work Phone: Start: 12-27-2023 Registered Recurring MD Fernanda Concepcion Work Phone: [facility] [facility] Start: 12-25-2023 End: 12-25-2023 Patient encounter procedure MD Fernanda Concepcion Work Phone: [facility] Work Phone: Start: 12-10-2023 End: 12-10-2023 ambulatory MD Fernanda Concepcion Work Phone: [facility] Work Phone: Start: 12-10-2023 End: 12-10-2023 Patient encounter procedure MD Fernanda Concepcion Work Phone: [facility] Physician [facility] Work Phone: Start: 12-04-2023 End: 12-04-2023 ambulatory MD Fernanda Concepcion Work Phone: [facility] Work Phone: Start: 12-04-2023 End: 12-04-2023 Patient encounter procedure MD Fernanda Concepcion Work Phone: [facility] Physician [facility] [place] [facility] Work Phone: Start: 11-22-2023 End: 11-22-2023 Patient encounter procedure MD Fernanda Concepcion Work Phone: [facility] Physician [facility] [place] [facility] Work Phone: Start: 11-16-2023 Non-patient / Non-visit MD Fernanda Concepcion Work Phone: [facility] Physician [facility] Work Phone: Start: 10-26-2023 End: 10-26-2023 Office outpatient visit 15 minutes Dio Lara DO Work Phone: [facility] Comment on above: Right upper quadrant pain (Primary Dx) Start: 10-23-2023 End: 10-23-2023 ambulatory MD Fernanda Concepcion Work Phone: [facility] Work Phone: Start: 10-23-2023 End: 10-23-2023 Patient encounter procedure MD Fernanda Concepcion Work Phone: [facility] Work Phone: Start: 10-08-2023 End: 10-08-2023 ambulatory MD Fernanda Concepcion Work Phone: [facility] Work Phone: Start: 10-08-2023 End: 10-08-2023 Patient encounter procedure MD Fernanda Concepcion Work Phone: [facility] [place] Work Phone: Start: 09-14-2023 Telephone encounter Fernanda Concepcion [facility] Start: 09-14-2023 End: 09-14-2023 ambulatory MD Fernanda Concepcion Work Phone: [facility] Work Phone: Start: 09-14-2023 End: 09-14-2023 Patient encounter procedure MD Fernanda Concepcion Work Phone: [facility] Work Phone: Start: 09-13-2023 End: 09-13-2023 ambulatory Fernanda Concepcion Other [employer] Other Start: 09-13-2023 Telephone encounter Fernanda Concepcion [facility] Start: 09-05-2023 End: 09-05-2023 ambulatory MD Fernanda Concepcion Work Phone: [facility] Work Phone: Start: 09-05-2023 End: 09-05-2023 Patient encounter procedure MD Fernanda Concepcion Work Phone: [facility]Nuc Med [facility] [place] Work Phone: Start: 09-04-2023 End: 09-04-2023 ambulatory Prashant Mitchell Other [employer] Other Start: 09-04-2023 Office outpatient visit 15 minutes Prashant Mitchell [facility] [place] [facility] Start: 09-04-2023 End: 09-04-2023 Patient encounter procedure MD Fernanda Concepcion Work Phone: [facility]XRay [place] [facility] Start: 09-04-2023 Patient encounter procedure MD Fernanda Concepcion Work Phone: [facility]- Start: 08-31-2023 End: 08-31-2023 ambulatory MD Fernanda Concepcion Work Phone: [facility] Work Phone: Start: 08-31-2023 End: 08-31-2023 Patient encounter procedure MD Fernanda Concepcion Work Phone: [facility]Ultrasound [facility] [place] Work Phone: Start: 08-27-2023 End: 08-27-2023 ambulatory MD Fernanda Concepcion Work Phone: [facility] Work Phone: Start: 08-27-2023 End: 08-27-2023 Discharged Recurring MD Fernanda Concepcion Work Phone: [facility]-Physical Therapy [address] Start: 08-27-2023 Registered Recurring MD Fernanda Concepcion Work Phone: [facility]-Physical Therapy [address] Start: 08-24-2023 End: 08-24-2023 ambulatory Fernanda Concepcion Other [employer] Other Start: 08-24-2023 Telephone encounter Fernanda Concepcion [facility] Start: 08-20-2023 End: 08-20-2023 ambulatory Fernanda Concepcion Other [employer] Other Start: 08-20-2023 Office outpatient visit 15 minutes Fernanda Concepcion [facility] Start: 08-20-2023 End: 08-20-2023 Patient encounter procedure MD Fernanda Concepcion Work Phone: [facility] Work Phone: Start: 08-06-2023 End: 08-06-2023 ambulatory MD Fernanda Concepcion Work Phone: [facility] Work Phone: Start: 08-06-2023 End: 08-06-2023 Patient encounter procedure MD Fernanda Concepcion Work Phone: [facility]-Electrodiagnostics Work Phone: Start: 08-01-2023 End: 08-01-2023 Patient encounter procedure MD Fernanda Concepcion Work Phone: [facility]-CT Scan [facility] [place] Work Phone: Start: 07-23-2023 Registered Recurring MD Fernanda Concepcion Work Phone: [facility]-Physical Therapy [address] Start: 07-18-2023 End: 07-18-2023 ambulatory Stefan Mcdonough Other [employer] Other Start: 07-18-2023 Office consultation new/estab patient 60 min Stefan Mcdonough [facility] Start: 07-18-2023 End: 07-18-2023 Patient encounter procedure MD Fernanda Concepcion Work Phone: [facility] Work Phone: Start: 07-13-2023 End: 07-13-2023 ambulatory Fernanda Concepcion Other [employer] Other Start: 07-13-2023 Telephone encounter Fernanda Concepcion [facility] Start: 07-03-2023 End: 07-03-2023 ambulatory Fernanda Concepcion Other [employer] Other Start: 07-03-2023 Telephone encounter Fernanda Concepcion [facility] Start: 06-27-2023 ambulatory PA-C GIANNA Hayden acility:[facility] [place] Start: 06-13-2023 ambulatory PA-C GIANNA Hayden acility:[facility] [place] Start: 06-04-2023 End: 06-04-2023 ambulatory Fernanda Cnocepcion Other [employer] Other Start: 06-04-2023 Telephone encounter Fernanda Concepcion [facility] Start: 05-31-2023 End: 05-31-2023 ambulatory Fernanda Concepcion Other [employer] Other Start: 05-31-2023 Telephone encounter Fernanda Concepcion [facility] Start: 05-30-2023 ambulatory PA-C GIANNA KAPLAN F acility:[facility] [place] Start: 05-25-2023 End: 05-25-2023 ambulatory MD Fernanda Concepcion Work Phone: [facility] Work Phone: Start: 05-25-2023 End: 05-25-2023 Patient encounter procedure MD Fernanda Concepcion Work Phone: [facility] [place] Work Phone: Start: 05-16-2023 End: 05-16-2023 ambulatory PA-C GIANNA KAPLAN Facility:[facility] [place] Start: 05-16-2023 End: 05-16-2023 Patient encounter procedure GIANNA KAPLAN [facility] Start: 05-11-2023 End: 05-11-2023 ambulatory Fernanda Concepcion Other [employer] Other Start: 05-11-2023 Nursing evaluation o f patient and report Fernanda Concepcion [facility] Start: 05-11-2023 Telephone encounter Fernanda Concepcion [facility] Start: 05-09-2023 End: 05-09-2023 ambulatory PA-C GIANNA KAPLAN Facility:[facility] [place] Start: 05-09-2023 End: 05-09-2023 Patient encounter procedure GIANNA FRANCOISRY [facility] Start: 05-04-2023 ambulatory PA-C GIANNA KAPLAN Fac ility:[facility] [place] Start: 05-02-2023 End: 05-02-2023 ambulatory PA-C GIANNA KAPLAN Facility:[facility] [place] Start: 05-02-2023 End: 05-02-2023 Patient encounter procedure GIANNA KAPLAN [facility] [place] Start: 04-25-2023 End: 04-25-2023 ambulatory PA-C GIANNA KAPLAN Facility:[facility] Start: 04-25-2023 End: 04-25-2023 Patient encounter procedure GIANNA KAPLAN [facility] [place] Start: 04-19-2023 End: 04-19-2023 ambulatory Charles Gilliam Other [employer] Other Start: 04-19-2023 Telephone encounter Charles Gilliam [facility] Start: 04-06-2023 End: 04-06-2023 ambulatory MD Fernanda Concepcion Work Phone: [facility] Work Phone: Start: 04-06-2023 End: 04-06-2023 Patient encounter procedure MD Fernanda Concepcion Work Phone: [facility]-MRI [facility] [place] Work Phone: Start: 03-30-2023 End: 03-30-2023 ambulatory Fernanda Concepcion Other [employer] Other Start: 03-30-2023 Encounter for genera l adult medical examination without abnormal findings Fernanda Concepcion [facility] Start: 03-30-2023 Periodic 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 est patient 40-64yrs Fernanda Concepcion [facility] Start: 02-23-2023 End: 02-23-2023 ambulatory Fernanda Concepcion Other [employer] Other Start: 02-23-2023 Office outpatient visit 15 minutes Fernanda Concepcion [facility] Start: 12-25-2022 End: 12-25-2022 ambulatory Fernanda Concepcion Other [employer] Other Start: 12-25-2022 Telephone encounter Fernanda Concepcion [facility] Start: 12-21-2022 End: 12-22-[address] FERNANDA CONCEPCION Facility:[facility] Start: 12-18-2022 End: 12-18-2022 ambulatory Fernanda Concepcion Other [employer] Other Start: 12-18-2022 Office outpatient visit 25 minutes Fernanda Concepcion [facility] Start: 12-14-2022 End: 12-15-[address] VIKRAM OSUNA Facility:[facility] Start: 12-12-2022 End: 12-12-2022 Patient encounter procedure GIANNA KAPLAN [facility] Start: 12-06-2022 End: 12-14-[address] FERNANDA CONCEPCION Facility:[facility] Start: 11-14-2022 End: 11-14-2022 ambulatory Fernanda Concepcion Other [employer] Other Start: 11-14-2022 Nursing evaluation o f patient and report Fernanda Concepcion [facility] Start: 11-06-2022 Telephone encounter Fernanda Concepcion [facility] Start: 11-06-2022 End: 11-06-2022 ambulatory MIRANDA THOMAS . [employer] Other Start: 10-31-2022 End: 11-01-[address] CATHRYN LAMBERT Facility:[facility] Start: 10-11-2022 End: 10-11-2022 ambulatory Fernanda Concepcion Other [employer] Other Start: 10-11-2022 Telephone encounter Fernanda Concepcion [facility] Start: 09-28-2022 End: 09-29-[address] FERNANDA CONCEPCION Facility:[facility] Start: 09-20-2022 End: 09-20-2022 ambulatory MD Stevan Alicia Work Phone: [facility] Work Phone: Start: 09-20-2022 End: 09-20-2022 Registered Recurring MD Stevan Alicia Work Phone: [facility] Work Phone: Start: 08-17-2022 End: 08-17-2022 Patient encounter procedure Willem HARRIS [facility] [place] Start: 08-03-2022 Adult health examination Charles Gilliam Other [employer] Other Start: 08-03-2022 Encounter for genera l adult medical examination without abnormal findings Fernanda Concepcion Other [employer] Other Start: 07-27-2022 End: 07-27-[address] FERNANDA CONCEPCION Facility:[facility] Start: 04-26-2022 End: 04-26-2022 Departed Referred PHYSICIAN NO [facility] [place] Start: 04-14-[address] FERNANDA CONCEPCION Facil ity:[facility] Start: 03-29-2022 Encounter for genera l adult medical examination without abnormal findings DR FERNANDA CONCEPCION [facility] Start: 03-28-2022 End: 03-29-[address] FERNANDA CONCEPCION Facility:[facility] Start: 03-28-2022 End: 03-29-2022 Encounter for general adult medical examination without abnormal findings DR FERNANDA CONCEPCION Facility:[facility] Start: 02-09-2022 End: 02-09-[address] FERNANDA CONCEPCION Facility:[facility] Procedures Date Procedure Procedure Detail Performing Clinician Start: 01-27-2025 Plain chest X-ray Fernanda Concepcion MD Work Phone: Start: 01-16-2025 ED SPLINTING / CASTING / STRAPPING Rache l [employer]ANCE [employer] Start: 01-16-2025 Radex foot complete minimum 3 views Nirali el L [employer] INDUSTRIAL SOCIOLOGIST Work Phone: Start: 01-12-2025 Carcinoembryonic antigen cea Stevan saenz MD Work Phone: Start: 01-12-2025 Immunoassay tumor antigen quantitative ca 125 Stevan Alicia MD Work Phone: Start: 01-12-2025 IGP, APT HPV,RFX 16/18,45 Stevan Alicia MD Work Phone: Start: 11-05-2024 MRI of head Fernanda Concepcion MD Work Phone: Start: 07-22-2024 X-ray of thoracic spine, three views MD Fernanda Concepcion Work Phone: Start: 07-03-2024 Urnls dip stick/tablet rgnt non-auto w/o micrscp Stevan Alicia MD Work Phone: Start: 03-17-2024 Capsule endoscopy MD Fernanda Concepcion Work Phone: Start: 03-04-2024 Esophagogastroduodenoscopy MD Fernanda miller Work Phone: Start: 12-28-2023 Radionuclide gastric emptying study MD Lissett Concepcion Work Phone: Start: 10-23-2023 Radionuclide imaging of liver and/or biliary tract using radioactive isotope MD Fernanda Concepcion Work Phone: Start: 09-14-2023 Acid fast bacilli culture MD Fernanda munoz Work Phone: Start: 09-14-2023 Fungal Culture Result 2 MD Fernanda Concepcion Work Phone: Start: 09-14-2023 Fungal Culture Result 3 MD Fernanda Concepcino Work Phone: Start: 09-14-2023 Fungal Culture Result 4 MD Fernanda Concepcion Work Phone: Start: 09-14-2023 Investigation of transfusion reaction MD Fernanda Concepcion Work Phone: Start: 09-14-2023 Mycology culture MD Fernanda Concepcion Work Phone: Start: 09-14-2023 Mycology Susceptibility MD Fernanda Concepcion Work Phone: Start: 09-05-2023 NM bone scan whole body MD Fernanda Concepcion Work Phone: Start: 09-04-2023 Plain X-ray of right hand MD Fernanda munoz Work Phone: Start: 08-31-2023 US scan of gallbladder MD Fernanda Concepcion Work Phone: Start: 08-01-2023 CT of chest without contrast MD Fernanda valenzuela Work Phone: Start: 04-06-2023 XR pre/post mri xray MD Fernanda Concepcion Work Phone: Start: 04-06-2023 MRI of cervical spine without contrast MD Fernanda Concepcion Work Phone: Start: 08-17-2022 Cystoscopy Willem AHRRIS Start: 08-17-2022 Cystourethroscopy with dilation of urethral stricture GIANNA KAPLAN Start: 09-17-2021 Colonoscopy Willem HARRIS Start: 09-17-2018 Hysteroscopy Willem HARRIS Start: 09-17-2015 Colposcopy Willem HARRIS Start: 09-17-2008 Loop electrosurgical excision procedure Willem HARRIS Start: 09-17-2007 Ligation of fallopian tube Willem [employer] Start: 09-17-1995 Extraction of wisdom tooth Willem HARRIS Screening for malign ant neoplasm of colon Charles Gilliam Other Screening for osteoporosis B enbharat Gilliam Other Plan of Treatment Date Care Activity Detail Author Start: 07-08-2025 End: 07-08-2025 Patient encounter procedure 07/08/2025 9:15 AM EDT Office Visit [facility] [address] [place] [id number] Stevan Alicia MD [address] [place] [address] [facility] Start: 07-08-2025 End: 07-08-2025 Professional / ancillary services management 07/08/2025 8:30 AM EDT Ancillary Procedure [facility] [address] [place] [address] [facility] Start: 05-21-2025 End: 05-21-2025 Patient encounter procedure 05/21/2025 3:30 PM EDT Office Visit [facility] [address] [place] [phone] Marta Hernandez, DO [address] [place] [address] [facility] Start: 04-08-2025 End: 09-02-2025 DBT Breast - bilateral screening Bilateral screening mammogram with tomosynthesis Imaging Routine Encounter for screening mammogram for malignant neoplasm of breast Expected: 04/08/2025, Expires: 09/02/2025 [facility] Work Phone: Comment on above: Expected: 04/08/2025 , Expires: 09/02/2025 Start: 03-18-2025 End: 03-18-2025 Patient encounter procedure 03/18/2025 9:30 AM EDT Office Visit [facility] [address] [place] [phone] Cathryn Lambert, DO [address] [place] [address] [facility] Start: 03-02-2025 End: 03-02-2025 Patient encounter procedure 03/02/2025 8:30 AM EDT Procedure Visit [facility] [place] [address] [facility] [address] [place] [phone] Cathryn Lambert DO [address] [place] [address] [facility] [place] Start: 02-10-2025 End: 02-10-2025 Patient encounter procedure [facility] Comment on above: Arrived Start: 01-19-2025 End: 01-19-2025 Patient encounter procedure 01/19/2025 2:45 PM EDT Office Visit [facility] [address] [place] [phone] Charles Eli, DO [address] [place] [address] [facility] [place] Start: 01-15-2025 End: 01-15-2025 Patient encounter procedure 01/15/2025 3:00 PM EDT Office Visit [facility] [address] [place] [phone] Marta Hernandez, DO [address] [place] [address] [facility] Start: 01-12-2025 End: 01-12-2026 Follicle stimulating hormone Follicle stimulating hormone Lab Routine Asymptomatic menopausal state Expected: 01/12/2025 (Approximate), Expires: 01/12/2026 [facility] Work Phone: Comment on above: Expected: 01/12/2025 (Approximate), Expires: 01/12/2026 Start: 01-12-2025 End: 01-12-2025 Patient encounter procedure 01/12/2025 9:15 AM EDT Office Visit [facility] [address] [place] [phone] Stevan Alicia MD [address] [place] [address] [facility] Start: 01-06-2025 End: 01-06-2025 Patient encounter procedure 01/06/2025 2:20 PM EDT Office Visit [facility] [place] [address] [place] [address] Candice Palencia, ANGELICA [address] [place] [address] Arrived [facility] [place] Comment on above: Arrived Start: 01-06-2025 End: 01-06-2026 EMG 2 Extremities EMG 2 Extremities Neurology Routine Paresthesias Expected: 01/06/2025 (Approximate), Expires: 01/06/2026 [facility] Work Phone: Comment on above: Expected: 01/06/2025 (Approximate), Expires: 01/06/2026 Start: 01-05-2025 End: 01-05-2025 Patient encounter procedure 01/05/2025 9:15 AM EDT Office Visit [facility] [address] [place] [phone] Stevan Alicia MD [address] [place] [address] [facility] Start: 01-05-2025 End: 01-05-2025 Professional / ancillary services management 01/05/2025 8:30 AM EDT Ancillary Procedure [facility] [address] [place] [phone] [facility] Start: 01-01-2025 End: 01-01-2025 Patient encounter procedure 01/01/2025 2:00 PM EDT Office Visit [facility] [address] [place] [phone] Marta Hernandez DO [address] [place] [address] [facility] Start: 12-11-2024 Patient referral [facility] Work Phone: Start: 11-14-2024 End: 11-14-2024 Patient encounter procedure 11/14/2024 9:35 AM EST Office Visit [facility] [address] [place] [phone] Benny Connie A, LOAN WORKOUT OFFICER-REIMBURSEMENT LIAISON [address] [place] [address] [facility] Start: 08-19-2024 End: 08-20-2024 [facility] Start: 08-12-2024 [facility] Start: 08-12-2024 [facility] Start: 08-11-2024 End: 07-01-2025 CT Chest WO contrast CT chest wo IV contrast Imaging Routine Chronic obstructive pulmonary disease, unspecified COPD type (CMS/HCC) Expected: 08/11/2024, Expires: 07/01/2025 [facility] Work Phone: Comment on above: Expected: 08/11/2024 , Expires: 07/01/2025 Start: 08-08-2024 [facility] Start: 08-08-2024 [facility] Start: 07-22-2024 Cefuroxime free [Mass/volume] in Serum or Plasma [facility] Start: 07-17-2024 End: 07-17-2024 Patient encounter procedure 07/17/2024 8:15 AM EDT Office Visit [facility] [address] [place] [phone] Stevan Alicia MD [address] [place] [address] [facility] Start: 07-03-2024 End: 07-03-2024 Patient encounter procedure 07/03/2024 2:45 PM EDT Office Visit [facility] [address] [place] [address] Stevan Alicia MD [address] [place], [place] [id number] [facility] Start: 07-03-2024 End: 07-03-2025 Comprehensive metabolic 2000 panel - Serum or Plasma Comprehensive metabolic panel Lab Routine Amenorrhea Expected: 07/03/2024 (Approximate), Expires: 07/03/2025 [facility] Comment on above: Expected: 07/03/2024 (Approximate), Expires: 07/03/2025 Start: 07-03-2024 End: 07-03-2025 Follicle stimulating hormone Follicle stimulating hormone Lab Routine Amenorrhea Thyroid disorder screening Expected: 07/03/2024 (Approximate), Expires: 07/03/2025 [facility] Comment on above: Expected: 07/03/2024 (Approximate), Expires: 07/03/2025 Start: 07-03-2024 End: 07-03-2025 Lipid 1996 panel - Serum or Plasma Lipid panel Lab Routine Amenorrhea Expected: 07/03/2024 (Approximate), Expires: 07/03/2025 [facility] Comment on above: Expected: 07/03/2024 (Approximate), Expires: 07/03/2025 Start: 07-03-2024 End: 07-03-2024 Professional / ancillary services management 07/03/2024 2:00 PM EDT Ancillary Procedure [facility] [address] [place] [address] [facility] Start: 07-03-2024 End: 07-03-2025 Vitamin D 1,25 dihydroxy Vitamin D 1,25 dihydroxy Lab Routine Amenorrhea Expected: 07/03/2024 (Approximate), Expires: 07/03/2025 [facility] Comment on above: Expected: 07/03/2024 (Approximate), Expires: 07/03/2025 Start: 07-01-2024 End: 07-01-2024 Patient encounter procedure 07/01/2024 3:15 PM EDT Office Visit [facility] [address] [place] [address] Marta Hernandez DO [address] [place] [address] Arrived [facility] Comment on above: Arrived Start: 03-17-2024 [facility] Start: 03-04-2024 [facility] Start: 12-20-2023 End: 12-20-2023 Patient encounter procedure 12/20/2023 3:45 PM EDT Office Visit [facility] [address] [place] [id number] Marta Hernandez DO [address] [place] [address] [facility] Start: 12-12-2023 End: 12-12-2023 Patient encounter procedure 12/12/2023 9:45 AM EDT Office Visit [facility] [address] [place] [phone] Stevan Alicia MD [address] [place] [address] [facility] Start: 12-12-2023 End: 12-12-2023 Professional / ancillary services management 12/12/2023 8:30 AM EDT Ancillary Procedure [facility] [address] [place] [phone] [facility] Start: 11-13-2023 End: 11-13-2023 Patient encounter procedure 11/13/2023 9:25 AM EST Office Visit [facility] [address] [place] [phone] Connie Zapata, LOAN WORKOUT OFFICER-REIMBURSEMENT LIAISON [address] [place] [address] [facility] Start: 10-23-2023 Radionuclide imaging of liver and/or biliary tract using radioactive isotope NM hepatobiliary w pharm [facility] Start: 10-08-2023 [facility] Start: 09-14-2023 Acid Fast Bacilli Cu lture & Smear Acid Fast Bacilli Culture & Smear [facility] Start: 09-14-2023 Fungal Culture Result 1 Fungal Cultu re Result 1 [facility] Start: 09-14-2023 Mycology Culture Mycology Culture Fi [facility] Start: 09-14-2023 Mycology culture Fungal Culture Resu lt 1 [facility] Start: 09-14-2023 Microbial culture of sputum [facility] Start: 09-14-2023 [facility] Start: 09-05-2023 NM bone scan whole body NM bone scan whole body [facility] Start: 08-04-2022 [facility] Start: 08-04-2022 [facility] Start: 08-01-2022 [facility] Start: 07-28-2022 [facility] Start: 07-28-2022 [facility] Start: 07-25-2022 [facility] Bacteria identified in Unspecified specimen by Aerobe culture [facility] CBC panel - Blood by Automated count CBC Lab Routine Amenorrhea Ordered: 07/03/2024 [facility] Comment on above: Ordered: 07/03/2024 Cefuroxime free [Mass/volume] in Serum or Plasma [facility] Comprehensive metabo lic 2000 panel - Serum or Plasma [facility] Endomysial antibody IgA level [facility] Estradiol Estradiol Lab Ro utine Amenorrhea Ordered: 07/03/2024 [facility] Comment on above: Ordered: 07/03/2024 Ferritin [Mass/volum e] in Serum or Plasma [facility] Fungus identified in Unspecified specimen by Culture [facility] Gliadin peptide IgA Ab [Units/volume] in Serum [facility] Gliadin peptide IgG Ab [Units/volume] in Serum [facility] HSV CATRACHITO HSV CATRACHITO Lab Rout ine Vaginal discharge Ordered: 07/03/2024 [facility] Comment on above: Ordered: 07/03/2024 IgA [Mass/volume] in Serum or Plasma [facility] Alvarado miscellaneous test Alvarado mis cellaneous test Lab Routine Vaginal discharge Ordered: 07/03/2024 [facility] Comment on above: Ordered: 07/03/2024 Microscopic observat ion [Identifier] in Unspecified specimen by Gram stain [facility] Microscopic observat ion [Identifier] in Unspecified specimen by Smear [facility] Mycobacterium sp identified in Unspecified specimen by Organism specific culture [facility] Nuab Vaginitis Plu s (VG+) NuSwab Vaginitis Plus (VG+) Microbiology Routine Vaginal discharge Ordered: 07/03/2024 [facility] Comment on above: Ordered: 07/03/2024 Patient Education Colon polyps Hemorrhoids (DC) Gastritis (DC) Know your [facility] Work Phone: Patient referral [facility] Work Phone: SENDOUT TEST MISCELL ANEOUS [facility] SENDOUT TEST MISCELLANEOUS [facility] Lab Routine Screening for malignant neoplasm of cervix Encounter for gynecological examination without abnormal finding Ordered: 07/03/2024 [facility] Comment on above: Ordered: 07/03/2024 Tissue transglutamin ase IgA Ab [Units/volume] in Serum [facility] Tissue transglutamin ase IgG Ab [Units/volume] in Serum [facility] XR Foot - right GE 3 Views F [facility] XR Thoracic spine 3 Views Fi [facility] Immunizations Immunization Date Immunization Notes Care Provider Fa [facility] 05-24-2022 influenza virus vaccine, split virus (incl. purified surface antigen) Charles Gilliam Other [employer] [facility] [employer] Other 05-24-2022 influenza virus vaccine, unspecified formulation [employer] [facility] 05-24-2022 Influenza, injectabl e, Madin [place] [facility] Kidney, preservative free, quadrivalent Dio Itzkowitz DO Work Phone: [facility] [employer] 05-16-2021 influenza virus vaccine, split virus (incl. purified surface antigen) Charles Gilliam Other [employer] Other 05-16-2021 influenza virus vaccine, unspecified formulation [employer] [facility] 05-16-2021 influenza, injectabl e, quadrivalent, preservative free Dio Itzkowitz DO Work Phone: [facility] 04-20-2020 tetanus toxoid, reduced diphtheria toxoid, and acellular pertussis vaccine, adsorbed Willem [employer] [facility] 06-10-2019 influenza virus vaccine, unspecified formulation Willem RICE [facility] 06-10-2019 influenza, injectabl e, quadrivalent, preservative free Dio Itzkowitz DO Work Phone: [facility] 08-31-2018 influenza virus vaccine, unspecified formulation Willem RICE [facility] 08-31-2018 Influenza, injectabl e, Madin Aleena Canine Kidney, preservative free, quadrivalent Dio Itzkowitz DO Work Phone: [facility] 08-01-2017 influenza, injectabl e, quadrivalent, preservative free Dio Itzkowitz DO Work Phone: [facility] 06-20-2016 influenza virus vaccine, unspecified formulation Wille[employer] [facility] 06-20-2016 influenza, injectabl e, quadrivalent, preservative free Dio Itzkowitz DO Work Phone: [facility] 06-20-2016 tetanus and diphther ia toxoids, adsorbed, preservative free, for adult use (5 Lf of tetanus toxoid and 2 Lf of diphtheria toxoid) Charles Gilliam Other [facility] Payers Date Payer Category Payer Self-pay [id number] 2021 Medicaid [employer] [place] [id number] 2021-Present [address] [place] [address] [id number] 2021 Medicaid (Managed Care) [facility] MEDICAID [id number] 1975 Unknown [id number] 2.16.840.1.841594.3.579.2. 593 1976 Unknown [id number] 2.16.840.1.479752.3.579.2. 593 1976 Unknown [id number] 2.16.840.1.351018.3.579.2. 593 1976 Unknown [id number] 2.16.840.1.998311.3.579.2. 593 1976 Unknown [id number] 2.16.840.1.176307.3.579.2. 593 1976 Unknown [id number] 2.16.840.1.144457.3.579.2. 593 1976 Unknown [id number] 2.16.840.1.979410.3.579.2. 593 1976 Unknown [id number] 2.16.840.1.025529.3.579.2. 593 1976 Unknown [id number] 2.16.840.1.894836.3.579.2. 593 1976 Unknown [id number] 2.16.840.1.056640.3.579.2. 593 1976 Unknown [id number] 2.16.840.1.365219.3.579.2. 1976 Unknown [id number] 2.16.840.1.758086.3.579.2. 1976 Unknown [id number] 2.16.840.1.456719.3.579.2. 1976 Unknown [id number] 2.16.840.1.082090.3.579.2. 1976 Unknown [id number] 2.16.840.1.195341.3.579.2. 1976 Unknown [id number] 2.16.840.1.373337.3.579.2. 1976 Unknown [id number] 2.16.840.1.680803.3.579.2 1976 Unknown [id number] 2.16.840.1.295576.3.579.2 1976 Unknown [id number] 2.16.840.1.601198.3.579.2 1976 Unknown [id number] 2.16.840.1.208668.3.579.2. 1976 Unknown [id number] 2.16.840.1.424593.3.579.2. 1258 1976 Unknown [id number] 2.16.840.1.733979.3.579.2. 1258 1976 Unknown [id number] 2.16.840.1.235566.3.579.2. 1258 1976 Unknown [id number] 2.16.840.1.456927.3.579.2. 1258 1976 Unknown [id number] 2.16.840.1.167278.3.579.2. 1258 1976 Unknown [id number] 2.16.840.1.538956.3.579.2. 1258 1976 Unknown [id number] 2.16.840.1.120411.3.579.2. 1259 1976 Unknown [id number] 2.16.840.1.223364.3.579.2. 1259 1976 Unknown [id number] 2.16.840.1.532337.3.579.2. 1259 1976 Unknown [id number] 2.16.840.1.712762.3.579.2. 1259 1959 Medicaid [id number] 1958 Self-pay [id number] Unknown [id number] Unknown [id number] 2.16.840.1.584147.3.579.2. 531 Unknown [id number] 2.16.840.1.989755.3.579.2. 531 Unknown [id number] 2.16.840.1.420778.3.579.2. 531 Unknown [id number] 2.16.840.1.622592.3.579.2. 531 Unknown [id number] 2.16.840.1.515411.3.579.2. 531 Unknown [id number] 2.16.840.1.086469.3.579.2. 531 Unknown [id number] 2.16.840.1.449190.3.579.2. 531 Social History Date Type Detail Facility Start: 04-04-2019 Tobacco smoking status AZIS Current some day smoker [facility] Start: 1975 Sex Assigned At Female [facility] Start: 07-18-2022 End: 08-18-2024 Tobacco smoking status NHIS Smoker (finding) [facility] Start: 08-09-2022 End: 03-26-2024 Tobacco smoking status Light tobacco smoker (finding) [facility] Start: 10-11-2023 End: 10-17-2024 Sex Assigned At Female [facility] Tobacco smoking status Never [facility] Start: 06-14-2023 End: 08-18-2024 Tobacco smoking status NHIS Smokes tobacco daily [facility] Healthcare History of tobacco use Cigarette Smoker [facility] Start: 06-14-2023 End: 07-03-2024 Cigarettes smoked current (pack per day) - Reported 1 [facility] Start: 06-14-2023 End: 07-01-2024 Tobacco use and exposure Smokeless tobacco non-user [facility] Start: 10-11-2023 End: 02-10-2025 Alcohol intake Lifetime non-drinker (finding) [facility] Start: 07-18-2023 Education 13 [facility] Start: 07-18-2023 Alcohol Comment caffeine intak e: 2-3 cups per day of coffee, soda/pop [facility] Start: 1975 Sex Assigned At Not on file [facility] Start: 08-04-2024 End: 02-25-2025 Sex Female (finding) [facility] NEGATED: Highlighted row N [facility] Medical Equipment Procedure Code Equipment Code Equipment Origin al Text Equipment Identifier Dates Capsule endoscopy, for patency of lumen evaluation Video capsule endoscopy system [id number] FDA Start: 03-17-2024 Goals Date Patient Goal Desired Activity /State Functional Status Date Assessment Result Facility 03-26-2024 Functional Status No [facility] 03-14-2024 Functional Status No [facility] 01-30-2024 Functional Status N/A [facility] 05-16-2023 Functional Status N/A [facility] 05-09-2023 Functional Status N/A [facility] 05-02-2023 Functional Status N/A [facility] 04-25-2023 Functional Status N/A [facility] 12-12-2022 Functional Status N/A [facility] 08-17-2022 Functional Status N/A [facility] [place] Clinical Notes 07-19-2018 to 02-10-2025 Marta Hernandez, DO - 02/10/2025 3:45 PM EDT Note Date & Type Note Facility 02-10-2025 History of Presen t illness Narrative Images from the original note were not included. Katy Banuelos presents today for follow up on COPD. She was last seen 6 months ago. Since her last office visit she does complain of some shortness of breath. She states this has been worsening over last few months or so. She does also complain of a cough that has increased some as well. She states this is generally productive of hatfield sputum. She denies any current complaints of fevers, chills, or sweats. She does also note that she has been tired quite a bit recently. She has discuss this with her primary care provider as well as Hematology. She states some blood work has been ordered by the home security alarm installer. At her recent appointment she states all blood work was noted to be good. She does complain of some excessive daytime sleepiness. She is unsure whether she has any apneas she does not currently have a bed partner. She does not feel well rested upon wakening in the morning. She does occasionally wake up in the middle of the night to go to the bathroom. She does currently use Spiriva once daily for her COPD. She does not currently have a rescue inhaler. She denies any current complaints of chest pain, palpitations, fevers, chills, sweats, or recent unintentional weight changes. Allergies: Allergies Allergen Reactions Cat Dander Unknown Dust Mite Extract Unknown Glycerin Unknown Molds & Smuts Other Medications: Current Outpatient Medications: ALPRAZolam (Xanax) 1 MG tablet, , Disp: , Rfl: cetirizine (ZyrTEC) 10 MG tablet, Take by mouth, Disp: , Rfl: Ciclopirox 1 % shampoo, , Disp: , Rfl: gabapentin (Neurontin) 100 MG capsule, Take one cap every 8 hours or all at bedtime, Disp: 90 capsule, Rfl: 2 ibuprofen 800 MG tablet, , Disp: , Rfl: iron polysaccharides (ProFe) 391.3 (180 Fe) MG capsule, Take 1 capsule (391.3 mg) by mouth Daily, Disp: 90 capsule, Rfl: 3 methylPREDNISolone (Medrol Dospak) 4 MG tablets, Follow schedule on package instructions, Disp: 21 tablet, Rfl: 0 omeprazole (PriLOSEC) [address] capsule, Take 40 mg by mouth Daily, Disp: , Rfl: prazosin (Minipress) 5 MG capsule, , Disp: , Rfl: pyridoxine (Vitamin B-6) 25 MG tablet, TAKE 1 TABLET (25 MG) BY MOUTH EVERY 8 (EIGHT) HOURS, Disp: 90 tablet, Rfl: 2 Restasis 0.05 % ophthalmic emulsion, Administer 1 drop into both eyes in the morning and 1 drop before bedtime., Disp: , Rfl: sertraline (Zoloft) 25 MG tablet, Take 1 tablet (25 mg) by mouth Daily, Disp: 90 tablet, Rfl: 3 tiotropium (Spiriva Respimat) 2.5 MCG/ACT inhaler, Inhale 2 puffs Daily, Disp: 1 each, Rfl: 5 traMADol (Ultram) 50 MG tablet, , Disp: , Rfl: valACYclovir (Valtrex) 500 MG tablet, Take 1 tablet (500 mg) by mouth twice daily for 3 days. 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 07/18/2023 Allergies Anemia Anxiety Arthritis of carpometacarpal (CMC) joint of right thumb 12/28/2023 Bipolar II disorder ([facility]) 07/18/2023 Bowel obstruction ([facility]) 1994 Chicken pox Chronic allergic rhinitis 07/18/2023 Chronic maxillary sinusitis Chronic vaginitis 07/18/2023 SANGITA I (cervical intraepithelial neoplasia I) 07/18/2023 Contusion of right foot 12/28/2023 COPD (chronic obstructive pulmonary disease) ([facility]) De Quervain's tenosynovitis, right 12/28/2023 Depression ([facility]) Dysmenorrhea 07/18/2023 Endometriosis of uterus 08/04/2009 Foot fracture, right 2019 broken right foot Genital herpes simplex 09/22/2009 GERD (gastroesophageal reflux disease) H/O tubal ligation 2008 Headache History of medical problems routine blood donor- every 56 days per pt History of medical treatment 2001 diagnostic lap History of menorrhagia 12/28/2023 HSV-2 infection Hypertension ([facility]) Insomnia, persistent 12/28/2023 Iron deficiency anemia 12/28/2023 Menorrhagia with irregular cycle 07/18/2023 Migraine Mixed incontinence 06/30/2024 Mixed stress and urge incontinence 07/18/2023 Peroneal tendinitis, right leg 12/28/2023 x2 Raynaud's syndrome Restless leg syndrome 12/28/2023 Right hand pain 12/28/2023 Right wrist pain 12/28/2023 Sinusitis acute maxillary TMJ (dislocation of temporomandibular joint) Vaginal infection Vitamin D deficiency Social History: Social History Tobacco Use Smoking status: Every Day Current packs/day: 1.00 Average packs/day: 1 pack/day for 30.0 years (30.0 ttl pk-yrs) Types: Cigarettes Smokeless tobacco: Never Substance Use Topics Alcohol use: Never Comment: caffeine intake: 2-3 cups per day of coffee, soda/pop Vitals: BP 110/64 (BP Location: Left arm, Patient Position: Sitting) Pulse 86 Ht 5' 6 Wt 125 lb SpO2 95% BMI 20.18 kg/m Exam: Heart: regular rate Lungs: clear to auscultation bilaterally, no wheezes/rales/rhonchi, no resp distress Extremities: no edema noted, no visible rashes Neuro: alert, oriented x3 Imaging Reviewed: Images and report of chest x-ray from January 2025 reviewed--no acute cardiopulmonary abnormality Assessment/Plan: Diagnoses and all orders for this visit: Chronic obstructive pulmonary disease, unspecified COPD type ([facility]) - albuterol HFA (ProAir HFA) 90 mcg/act inhaler; Inhale 2 puffs every 4 (four) hours if needed for wheezing - Sbrtgdkzult-Kvavussue-Iklqbe (Trelegy Ellipta) 100-62.5-25 MCG/ACT aerosol powder ; Inhale 1 puff Daily Cigarette smoker COPD -- at this time she does continue to complaints of shortness of breath with exertion as well as cough. We discussed that she may not have a good maintenance regimen at this time. We discussed changing her Spiriva to Trelegy. She was given a prescription at today's office visit. She was instructed on the use of the inhaler. She was also given a prescription for albuterol to use on an as needed basis. We did review the results of her chest x-ray. There is no acute changes noted. There was no evidence of masses or nodules. The patient had previously undergone CT scan of her chest. She is concerned given her history of tobacco use that she is a set up for malignancy. We again discussed at today's office visit that she is not a candidate for low-dose screening until age of 56. However there are no abnormalities noted on her chest x-ray at this time. Tobacco use -- she does continue with smoking on a daily basis. She is now down to under a pack per day. We did have a 4 minute discussion regarding the importance of smoking cessation at today's office visit. Hypersomnolence -- she does complain of some fatigue at today's office visit. She is unsure whether she has any apneas or snoring as she does not currently have a bed partner. However she does not feel well rested upon wakening in the morning. She does also have some excessive daytime sleepiness. Given this we discussed the possibility of sleep apnea and its diagnosis and treatment. She is agreeable undergo testing. A prescription for home sleep study was sent to [facility] at today's office visit. CPAP will be arranged if she does qualify. Follow up in about 3 months (around 05/13/2025) for COPD. Marta Hernandez DO documented in this encounter [facility] 02-06-2025 Evaluation note Diagnosis Onset Date Resolution Blood donor chronic February 06 8:56am History of menorrhagia chronic Ma y 2024 8:56am Iron deficiency anemia chronic Ma y 2024 8:56am Back pain, thoracic acute February 25, 2025 7:59am Chronic pain acute February 25 025 7:59am Myalgia acute February 25 7:59am Other skin changes acute February 152024 11:29am Allodynia acute March 18, 2025 9:29am Degenerative disc disease, cervical acute March 18, 2025 9:29am Insomnia acute March 18, 2025 9:29am Migraine headache without aura acute March 18, 2025 9:29am Myalgia acute March 18, 2025 9:29am Neck pain acute March 18, 2025 9:29am Paresthesia acute March 18 9:29am Back pain, thoracic acute March 23, 2025 10:08am Chronic pain acute March 23 10:08am Myalgia acute March 23, 2025 10:08am Arthritis of carpometacarpal (CMC) joint of right thumb acute March 27, 2025 9:41am Arthritis of right hand acute 2024 9:41am De Quervain's tenosynovitis, right acute March 27, 2025 9:41am Right wrist pain acute March 9:41am Toe pain, left acute March 27, 2025 9:41am [facility] Work Phone: 1(381) 709-989005-23-2025 Evaluation note* Diagnosis Onset Date Resolution Status Admit Date Blood donor chronic February 06 8:56am History of menorrhagia chronic Ma y 2024 8:56am Iron deficiency anemia chronic Ma y 2024 8:56am Back pain, thoracic acute February 25, 2025 7:59am Chronic pain acute February 25 025 7:59am Myalgia acute February 25 7:59am Other skin changes acute February 152024 11:29am Allodynia acute March 18, 2025 9:29am Degenerative disc disease, cervical acute March 18, 2025 9 :29am Insomnia acute March 18, 2025 9:29am Migraine headache without aura acute March 18, 2025 9:29am Myalgia acute March 18, 2025 9:29am Neck pain acute March 18, 2025 9:29am Paresthesia acute March 18 9:29am Back pain, thoracic acute March 23, 2025 10:08am Chronic pain acute March 23 10:08am Myalgia acute March 23, 2025 10:08am Arthritis of carpometacarpal (CMC) joint of right thumb acute March 27, 2025 9:41am Arthritis of right hand acute J lisa 2024 9:41am De Quervain's tenosynovitis, right acute March 27, 2025 9:41am Right wrist pain acute March 9:41am Toe pain, left acute March 27, 2025 9:41am Right foot pain acute March 8:24am [facility] Work Phone: 1(468) 555-817505-23-2025 [facility] [place] [address] Cancer Center Note Signed Patient: Katy Banuelos MR#: [id number] : 1975 Acct:[id number] Age/Sex: 50 / F Type: DEP AMB Date of Service: 02/06/25 Copies to: Fernanda Concepcion MD~ Assessment & Plan A/P (1) Iron deficiency anemia: Plan: 09/20/2022: This is a 47-year-old female who is most likely source of [...] deficiency. If she does wish to continue electiveblood donation Irecommend changing to about once every 100 days and to continue oral iron supplement. She had better tolerance of Pro Fe 180 mg which she may take every other day to daily based on her tolerance. She does not have any other clear source of iron deficiency. Prior pathology from biopsy of GE junction and duodenum on 04/26/[address] Itzkowitz showed no evidence of villous atrophy or intestinal metaplasia suggestive of celiac disease. Based on symptoms and family history of celiac disease Dr. Apodaca sent antibody work-up showing no evidence of endomysial or gliadin antibody suggestive of celiac disease. In the absence of symptoms she should not require further follow-up. She can be referred back from primary care for parenteral iron on anas-needed basis if she is refractory to oral iron or no longer tolerates her ProFe. 08/04/2024: She reports that she has not [...] high iron enriched foods. F/U in 6 monthswith cbc, iron profile, and ferritin. Call if [...] labs. Will add on a b12 and folatedue to slight increase in MCV. I doubt significant deficiency due to her oral supplementation but will rule out.. (2) Blood donor: Plan: 09/20/2022: The patient is a regular blood donor and will have supplemental oral iron and decrease frequency of blood donation given her recent iron deficiency. 08/04/2024: Blood donations scheduled every 56 days, informed to reduce donationwhen fatigued. 02/08/2025 She is not regularly giving blood anymore secondary to fatigue. Could medically continuegiving blood less frequently than before but she is feeling very poorly and fatigued. Would recommend holding off blood donation until she has addressed fatigue with PCP. (3) History of menorrhagia: Plan: 09/20/2022; 08/04/2024: Prior history of menorrhagia but no recurrent symptoms since she underwent endometrial ablation by Dr. Alicia in March 2019. Patient Instructions: Will recheck CBC, CMP, Iron profile, folate, B 12, reticulocyte count in 6 months 1 week prior to 6month visit with INDUSTRIAL SOCIOLOGIST. CHEMO PLAN Treatment Plan Iron Sucrose (Venofer) Clinical Indication No Indication Cycle Number Last Admin 1 of 1 Completed Cycle Day Next Admin No Active Chemotherapy History of Present Illness HPI 02/06/2025 She reports she is feeling very fatigued. She reports getting broken sleep. She sleeps about 6 hours a night at most. She has a hard time falling asleep. She drinks 5-6 cups of coffee a day. She does not have periods anymore since ablation. She reports that she had a colonoscopy and EGD and pill camera last summer. She is feeling irritable and cranky. She denies any bleeding and is not longer giving blood. 08/04/2024: Katy is ambulatory to the clinic alone. She has not received parental iron since 2021. She states she donates blood every 56 days. Her last blood donation was 05/22/2024. She states she feels more fatigue since the donation. She continues to take her oral iron and eats healthy food to help maintain iron supplementation. She states she was tested for celiac disease thissummer and the results came back negative. She had a EGD/colonoscopy and had a polyp removed. She was also found to have internal hemorrhoids. She also had a capsule study, negative. She had labs on 06/17.The Hgb was 10.1, no iron profile or ferritin done at that time. She reports intermittent vasomotor symptoms from perimenopause. Denies fever, chills, or night sweats. Denies restless legs or pica. Denies CP or palpitations. She reports chronic loose stools, then intermittent constipation from the iron supplement. Denies hematochezia. Reports RUE neuropathy, currently being worked up for this. She reports she does not sleep because she drinks coffee up until 800pm because she is trying to stay awake. 09/20/2022: Katy is here for follow-up and lab review after receiving 3 infusions of Venofer 300 mg IV 07/25 through 08/04/2022. She does note improved fatigue since her last visit. She notes that she has been a blood donor for the past 30years donating about once every 56 days. She previously was on iron supplementation with Pro Fe (polysaccharide iron complex) 180 mg daily which shetolerated well.Her primary care had switched her to a different iron formulation which she did not tolerate well. During her initial evaluation withDr. Apodaca, he felt that she may have had malabsorption due to a family history of celiac disease as well as symptoms of bloating and abdominal discomfort with eating bread and gluten containing food items. The patient does note that afterreceiving her parenteral iron that she had her follow-up lab test last week and then scheduled herself for blood donation the following day with hemoglobin 13.3. She is concerned that she may have recurrent iron deficiency with ongoingblood donation. -- In addition the patient reports that she had menorrhagia until about 2 years ago. She underwent an endometrial ablation by Dr. Alicia at that time and noted that her last period was about 1-1/2 years ago. No other sites of GI blood loss. -- Laboratories ordered by Dr. Apodaca to evaluate for celiac disease on 2returned with normal gliadin and tissue transglutaminase as well as endomysial antibodies. I reassured her that there is unlikely to be malabsorption contributing to her iron deficiency. We discussed decreasing the frequency of her blood donation to every other cycle (over 100 days) and she may resume her Pro Fe iron supplementation every other day (or daily if well- tolerated). She may return for reevaluation by hematology for parenteral iron on an as-needed basis. This is a moderate complexity 35-minute follow-upto review history in more detail (initial evaluation by smita catalan) and to discuss the results ofher celiac disease work-up. INITIAL CONSULT with smita Apodaca 07/18/2022: 47-year-old white lady seen for evaluation and management of iron deficiency. Although her hemoglobin is within the normal range, but actually it is falsely elevated secondary to her smoking. Patientused to have significant menorrhagiabut underwent endometrial ablation 18 months ago or so. She said that nutritionally she has not been keen on iron containing foods or healthy nutrients in general.Of much more relevance she has been on regular blood donor for many years. When asked about symptoms associated with celiac disease she stated that she gets bloating and abdominal discomfort when sheeats bread and gluten containing food items. She has a son with established celiac diseaseaccordingto her Summary of Therapies Summary of Therapies: 1. 3 infusions of Venofer 300 mg IV 07/25 through 08/04/2022 2. 09/20/2022: Negative work-up for celiac disease. Resuming oral Pro Fe 180 mg daily Intake Vitals/Pain Assessment 02/06/25 09:04 Height 5 ft 6 in Weight 55.338 kg BMI 19.7 Body Fat % 29.54 BP 117/77 Blood Pressure Location Lt brachial Position Sitting Temp 97.8 F Temp Source Temporal Pulse 77 Pulse Source NIBP Respiration 16 Pulse Oximetry (%) 98 Oxygen Delivery Method room air Intake Visit Reasons: Follow Up 6 Months, follow up visit Accompanied by: Self Allergies No Known Allergies Allergy (Verified 02/06/25 09:01) Home Medications - Last Reconciled 02/06/25 by LILLIAN Haynes acyclovir 400 mg PO alprazolam 1 mg PO BID PRN 30 days cetirizine (Zyrtec) 10 mg PO DAILY PRN cholecalciferol (vitamin D3) (Vitamin D3) 25 mcg PO DAILY diclofenac sodium 1% (Voltaren Arthritis Pain) 1-2 grams topically twice daily 30 days folic acid 1 mg PO DAILY ibuprofen TAKE 1 TABLET BY MOUTH EVERY 8 HOURS NEEDED FOR PAIN omeprazole 40 mg PO ONCE 30 days polysaccharide iron complex (Pro Fe) 180 mg PO DAILY 90 days prazosin TAKE 1 CAPSULE BY MOUTH IN THE EVENING PRN; pyridoxine (vitamin B6) 25 mg PO TID tiotropium bromide (Spiriva with HandiHaler) 1 cap inhalation DAILY tramadol 50 mg PO BID PRN 30 days vitamin [id number] acid 0.5-1 mg 1 tab PO DAILY Gastrointestinal Is the patient taking opioids for pain control?: No Falls Fall Precaution Measures Taken: Patient in chair Nurse's Note: Patient is here today for a follow up visit and go over labs [facility] Medical History Medical History Raynauds disease Chronic obstructive pulmonary disease Insomnia, persistent External hemorrhoid Chronic pain Cervical spondylosis Back pain, thoracic Anxiety Allergic rhinitis, unspecified Acute pharyngitis, unspecified Acute maxillary sinusitis, unspecified (07/19/18) Abnormal weight loss Broken foot right 2019 Chicken pox TMJ (dislocation of temporomandibular joint) Hypertension Migraine headache Allergies Surgical History Surgical History History of hysteroscopy H/O tubal ligation History of dilatation and curettage Family History Family History Father Prostate cancer Hypertension Stroke Bladder cancer Grandparent Leukemia Social History Social History Smoking status: Current every day smoker Within the past year, how often did you have a drink containing alcohol: never AUDIT-C Alcohol total score: 0 AUDIT-C Alcohol score interpretation: A score less than 3 is consistent with normal alcohol consumption. In the past 12 months, have you used illegal drugs or prescription drugs for non-medical reasons?: No Physical Exam EXAM GENERAL APPEARANCE: Well developed, well nourished, in no acute distress. SKIN: Inspection of the skin reveals no rashes, ulcerations or petechiae. HEENT: The sclerae were anicteric and conjunctivae were pink and moist. EOMI, PERRLA. The oral mucosa is moist and clear. LUNGS: Normal breath sounds on auscultation without rales, rhonchi, or crackles. CARDIOVASCULAR: S1 and S2, regular rate and rhythm, no murmurs, gallops, rubs. ABDOMEN: Soft, nontender, bowel sounds normal. No hepatosplenomegaly. No mass palpated. LYMPH NODES: No lymphadenopathy was appreciated in the neck, axillae or groin. MUSCULOSKELETAL: Gait was normal. There was no tenderness or effusions noted. Muscle strength and tone were normal. EXTREMITIES: No cyanosis, clubbing or edema. NEUROLOGIC: Alert and oriented x 3. Normal affect. Gait was normal. Results - [facility] LAB RESULTS Corrected WBC 7.2 X10E3/uL (3.8-11.6) 01/27/25 11: 5 Hgb 14.4 g/dL (11.8-15.4) 01/27/25 11:01/27/25 Hct 41.5 % (34.0-46.4) 01/27/25 11:01/27/25 MCV 101.2 fl (80-100) H 01/27/25 11:01/27/25 RDW 13.2 % (11.9-15.3) 01/27/25 11:55 01/27/25 Plt Count 234 x10E3/uL (150-450) 01/27/25 11:55 01/27/25 Iron 151 ug/dL (50-212) 01/27/25 11:55 01/27/25 Iron Saturation 46.7 % (20-50) 01/27/25 11:55 01/27/25 Ferritin 30.5 ng/mL (11.0-306.8) 01/27/25 11:55 5 Dictated By: JIL Mary DD/ [id number] Signed By: 02/06/25 0948 [facility]05-02-2025 History of Present illness Narrative * Markel Vicente NP - 01/16/2025 5:30 PM EDT HPI: Historian of HPI: patient Katy Banuelos is a 49 y.o. female who presents today to the Urgent Care with the following complaints and denials due left foot toes which has been present for 2 week(s). C/O Denies Symptom Comments [x] [] swelling [] [x] ecchymosis [] [x] erythema [] [x] tingling [] [x] numbness [] [x] Pain radiation [] [x] Weakness [x] [] Decreased ROM [x] [] Trauma Additional Comments: Pt reports her left foot was caught in the handle of a piece of furniture and she injured her 4th and 5th toes on the left foot. Pt states pain is gradually getting worse. ROS: A complete system ROS was performed and negative aside from the pertinent positives noted in the HPI and PE. Examination: General Examination: General Examination: Alert, oriented, normal affect, well-appearing, in no acute distress, well developed, well nourished. Head: Normocephalic, atraumatic Eyes: Sclera anicteric. Neck/Thyroid: Neck supple, full range of motion Skin: ecchymosis Heart: no murmurs, regular rate and rhythm, S1, S2 normal Lungs: clear to auscultation bilaterally Musculoskeletal: Foot: ROM of toes Swelling and tenderness localized to: 4th and 5th metatarsals, MTP joints, and PIP joints Simpson's and drawer's negative. Extremities: no clubbing, cyanosis Peripheral Pulses: 2+ posterior tibial, 2+ dorsalis pedis, nail daniel intact Neurologic: Sensory exam intact to feet Psych: alert, oriented, cognitive function intact, cooperative with exam 1. Pain and swelling of toe of left foot (Primary) Xray of left foot obtained. Prelim interp: no acute osseous findings. Final interp: No acute bony abnormalities radiographically - XR foot 3+ views left - Splint Application 2. Muscle strain of left foot, initial encounter Diagnosis and treatment discussed. Rest and elevate. Start warm soaks 2-3 times a day. Patient placed in cam boot. Medrol dospak for inflammation. Follow-up with Podiatry. - methylPREDNISolone (Medrol Dospak) 4 MG tablets; Follow schedule on package instructions Dispense: 21 tablet; Refill: 0 - Splint Application * Markel Yanez LPN - 01/16/2025 5:30 PM EDTAssociated Order(s): Splint Application Post-Procedure Diagnose(s): Muscle strain of left foot, initial encounter; Pain and swelling of toeof left foot Images from the original note were not included. Patient ID: Katy Banuelos is a 49 y.o. female. Splint Application Date/Time: 01/16/2025 6:50 PM Performed by: Markel Yanez LPN Authorized by: Markel Vicente NP Consent: Consent obtained: Verbal Consent given by: Patient Procedure details: Location: Foot Foot location: L foot Supplies: Prefabricated splint Attestation: Splint applied and adjusted personally by me Comments: Pt and provider signed DME form. Pt provided with left foot cam boot. Ref # [id number] documented in this encounterThe Rehabilitation [id number] History of Present illness Narrative* Stevan Alicia MD - 01/12/2025 9:15 AM EDT Images from the original note were not included. chago Alicia MD Obstetrics and Gynecology Patient: Katy Banuelos : 1975 (49 y.o.) Exam Date: 01/12/2025 Reason for Visit - Chief Complaint Patient presents with Repeat pap Last pap: 07/03/24- Neg 06/14/23- LGSIL Complaints: The patient, Katy, is a perimenopausal woman with a history of uterine ablation. She presents for follow-up regarding menopausal symptoms, HPV, and ovarian cysts. She reports experiencing irritability and fatigue. Katy underwent uterine ablation in March 2019 and has not had menstrual bleeding since then. Her FSHlevels have increased from 9 to 36 over the past six months, indicating progression towards menopause. She expresses concern about potential weight gain associated with menopause, though her weight is currently stable. Her composer teaching artist has noted that she chakraborty calories easily. A recent ultrasound was performed to evaluate ovarian cysts. Katy reports that the cysts have changed sides and appear smaller, with one described as hemorrhagic. She hopes they will resolve without surgery. The patient also mentions having retinal hemorrhaging and enophthalmos, which other doctorshave been unable to explain. Regarding her HPV status, Katy indicates it is still present. She has been prescribed medication tohelp with her immune system and fight the virus but is hesitant to take it due to concerns about side effects, particularly given her smoking history. She reports trying to cut back on smoking. The patient is taking B12 supplements and inquires about continuing folic acid supplementation and the safety of vitamin B6. Katy reports getting about 4,000 steps yesterday but notes a decreased appetite. Katy's medical history includes HPV infection and perimenopause. She had endometrial ablation in March 2019. Her current medications and supplements include B12, B6, folic acid, acyclovir, and Zoloft (which she took in her youth and recently restarted). In her family history, Katy mentions a 71-year-old friend with HPV on the back of the tongue and kidney cancer, undergoing chemo and radiation. Her mother has an unspecified condition requiring breast exams. Regarding social history, Katy is a current smoker attempting to reduce consumption. She exercises,reporting approximately 4000 steps yesterday. She mentions having a reduced appetite. In the review of systems, Katy reports fatigue, decreased appetite, and irritability. She denies vaginal bleeding. Visit Vitals OB Status Ablation Smoking Status Every Day History of Present Illness, Associated Treatments and Results - OB History Para Term AB Living 2 0 0 0 0 2 SAB IAB Ectopic Multiple Live Births 0 0 0 0 2 # Outcome Date GA Lbr Jc/2nd Weight Sex Type Anes PTL Lv 2 1 Constitutional: Negative. HENT: Negative. Eyes: Negative. Respiratory: Negative. Cardiovascular: Negative. Gastrointestinal: Negative. Endocrine: Negative. Genitourinary: Negative. Musculoskeletal: Negative. Skin: Negative. Allergic/Immunologic: Negative. Neurological: Negative. Hematological: Negative. Psychiatric/Behavioral: Negative. Allergies Allergen Reactions Cat Dander Unknown Dust Mite Extract Unknown Glycerin Unknown Molds & Smuts Other Current Outpatient Medications: ALPRAZolam (Xanax) 1 MG tablet, , Disp: , Rfl: Ciclopirox 1 % shampoo, , Disp: , Rfl: diphenhydrAMINE-acetaminophen (Unisom PM Pain) 50-325 MG tablet, Take 1 tablet by mouth as needed at bedtime for sleep, Disp: 14 tablet, Rfl: 3 estrogen, conjugated,-medroxyPROGESTERone (Prempro) 0.625-5 MG tablet, Take 1 tablet by mouth Daily, Disp: 90 tablet, Rfl: 3 gabapentin (Neurontin) 100 MG capsule, Take one cap every 8 hours or all at bedtime, Disp: 90 capsule, Rfl: 2 ibuprofen 800 MG tablet, , Disp: , Rfl: iron polysaccharides (ProFe) 391.3 (180 Fe) MG capsule, Take 1 capsule (391.3 mg) by mouth Daily, Disp: 90 capsule, Rfl: 3 omeprazole (PriLOSEC) [address] capsule, Take 40 mg by mouth Daily, Disp: , Rfl: prazosin (Minipress) 5 MG capsule, , Disp: , Rfl: pyridoxine (Vitamin B-6) 25 MG tablet, TAKE 1 TABLET (25 MG) BY MOUTH EVERY 8 (EIGHT) HOURS, Disp: 90 tablet, Rfl: 2 Restasis 0.05 % ophthalmic emulsion, Administer 1 drop into both eyes in the morning and 1 drop before bedtime., Disp: , Rfl: sertraline (Zoloft) 25 MG tablet, Take 1 tablet (25 mg) by mouth Daily, Disp: 90 tablet, Rfl: 3 tiotropium (Spiriva Respimat) 2.5 MCG/ACT inhaler, Inhale 2 puffs Daily, Disp: 1 each, Rfl: 5 traMADol (Ultram) 50 MG tablet, , Disp: , Rfl: valACYclovir (Valtrex) 500 MG tablet, Take 1 tablet (500 mg) by mouth twice daily for 3 days. 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 07/18/2023 Allergies Anemia Anxiety Arthritis of carpometacarpal (CMC) joint of right thumb 12/28/2023 Bipolar II disorder ([facility]) 07/18/2023 Bowel obstruction ([facility]) 1995 Chicken pox Chronic allergic rhinitis 07/18/2023 Chronic maxillary sinusitis Chronic vaginitis 07/18/2023 SANGITA I (cervical intraepithelial neoplasia I) 07/18/2023 Contusion of right foot 12/28/2023 COPD (chronic obstructive pulmonary disease) ([facility]) De Quervain's tenosynovitis, right 12/28/2023 Depression ([facility]) Dysmenorrhea 07/18/2023 Endometriosis of uterus 08/04/2009 Foot fracture, right 2019 broken right foot Genital herpes simplex 09/22/2009 GERD (gastroesophageal reflux disease) H/O tubal ligation 2008 Headache History of medical problems routine blood donor- every 56 days per pt History of medical treatment 2000 diagnostic lap History of menorrhagia 12/28/2023 HSV-2 infection Hypertension ([facility]) Insomnia, persistent 12/28/2023 Iron deficiency anemia 12/28/2023 Menorrhagia with irregular cycle 07/18/2023 Migraine Mixed incontinence 06/30/2024 Mixed stress and urge incontinence 07/18/2023 Peroneal tendinitis, right leg 12/28/2023 x2 Raynaud's syndrome Restless leg syndrome 12/28/2023 Right hand pain 12/28/2023 Right wrist pain 12/28/2023 Sinusitis acute maxillary TMJ (dislocation of temporomandibular joint) Vaginal infection Vitamin D deficiency Past Surgical History: Procedure Laterality Date CERVICAL BIOPSY W/ LOOP ELECTRODE EXCISION 2009 COLONOSCOPY 04/26/2022 EGD COLPOSCOPY 07/10/2022 negative COLPOSCOPY 2015 EGD 04/26/2022 ENDOMETRIAL ABLATION HYSTEROSCOPY 2019 TUBAL LIGATION 08/2008 WISDOM TOOTH EXTRACTION 2016 WISDOM TOOTH EXTRACTION 1996 Family History Problem Relation Name Age of Onset Alzheimer's disease Father Prostate cancer Father Other cancer Father bladder Kidney failure Father Diabetes Father Hypertension Father Heart disease Father Stroke Father Mental illness Father Leukemia Maternal Grandmother Breast cancer Neg Hx Colon cancer Neg Hx Ovarian cancer Neg Hx Social History Tobacco Use Smoking Status Every Day Current packs/day: 1.00 Average packs/day: 1 pack/day for 30.0 years (30.0 ttl pk-yrs) Types: Cigarettes Smokeless Tobacco Never Physical Exam - General appearance, mentation, extraocular movements, facial strength and movement, hearing, upper and lower extremity strength and tone, sensation to gross testing, coordination, and gait are normalor at baseline unless noted below. Physical Exam Constitutional: Appearance: Normal appearance. Genitourinary: Right Labia: No rash or lesions. Left Labia: No lesions or rash. No vaginal discharge or erythema. No vaginal prolapse present. No vaginal atrophy present. Right Adnexa: not tender and no mass present. Left Adnexa: not tender and no mass present. No cervical lesion. Uterus is not tender. Uterus is anteverted. Breasts: Right: Normal. No mass or nipple discharge. Left: Normal. No mass or nipple discharge. HENT: Head: Normocephalic and atraumatic. Cardiovascular: Rate and Rhythm: Normal rate and regular rhythm. Pulmonary: Breath sounds: Normal breath sounds. Abdominal: General: There is no distension. Palpations: Abdomen is soft. There is no mass. Tenderness: There is no abdominal tenderness. Musculoskeletal: General: Normal range of motion. Cervical back: Neck supple. Lymphadenopathy: Cervical: No cervical adenopathy. Neurological: Mental Status: She is alert and oriented to person, place, and time. Skin: General: Skin is warm and dry. Psychiatric: Mood and Affect: Mood normal. Behavior: Behavior normal. 07/03 The uterus is normal in size and contour. The myometrium is inhomogenous in echotexture without overt fibroid. There are prominent vascularities noted in the periphery of the uterus. The patient has a history of endometrial ablation. There is remaining endometrial tissue visualized which measures 8.5 mm in thickness. The right ovary contains two sonolucent cysts, the largest measures 13 mm x 10 mm x 26 mm. The right ovary also contains a 8 mm x 6 mm x 8 mm hemorrhagic cyst. The left ovary contains two sonolucent cysts, the largest measures 25 mm x 17 mm x 24 mm. There is no overt adnexal mass. There is no free fluid visible within the pelvis US 01/05 Transvaginal scans of the pelvis were obtained. Today's ultrasound was compared to a previous pelvic ultrasound performed in our office on, 07/03/2024. The uterus is normal in size and contour. The myometrium is inhomogenous in echotexture without overt fibroid. There are prominent vascularities noted in the periphery of the uterus. The patient has a history of endometrial ablation. There is remaining endometrial tissue visualized which measures 4.7 mm in thickness. The right ovary contains a 10 mm x 8 mm x 15 mm mildly echogenic cyst and a 14 mm x 11 mm x 15 mm sonolucent cyst. The left ovary contains a 13 mm x 10 mm x 12 mm mildly echogenic cyst, felt to be hemorrhagic. There is no free fluid visible within the pelvis. Assessment/Plan ICD-10-CM 1. Encounter for gynecological examination without abnormal finding Z01.419 2. Encounter for screening for cervical cancer Z12.4 3. Cysts of both ovaries N83.201 N83.202 4. History of endometrial ablation Z98.890 5. Amenorrhea N91.2 6. Asymptomatic menopausal state Z78.0 7. Anemia, unspecified type D64.9 8. Other iron deficiency anemia D50.8 9. Abnormal TSH R79.89 10. Mood swings R45.86 1. Perimenopausal symptoms: - Assessment: Patient reports irritability and fatigue. FSH levels increased from 9 to 36 over pastsix months. Uterine ablation in March 2019, no menstrual bleeding since. Occasional ovulation may still occur. Prempro may affect FSH levels - Plan: a) Consider restarting Zoloft for irritability management. b) Educate patient on perimenopausal symptoms and potential duration (up to 10 years). c) Discuss potential need for ongoing treatment of perimenopausal symptoms. 2. Ovarian cysts: - Assessment: Recent ultrasound showed bilateral ovarian cysts, both decreased to approximately 1 cm. Considered benign and of minimal clinical concern. - Plan: a) Repeat pelvic ultrasound in 6 months to reassess ovarian cysts. b) Reassure patient about benign nature of current findings. Ca 123 and CEA ordered 3. Human Papillomavirus (HPV) infection: - Assessment: Patient has persistent HPV infection. Previous plan included immune system support. - Plan: a) Continue B12 supplementation for immune support. b) Initiate vitamin B6 supplementation. c) Hold off on previously prescribed medication. d) Educate patient on chronic nature of HPV and importance of immune system support. 4. Preventive care: - Assessment: Patient due for routine preventive care, including mammography. - Plan: a) Mammogram scheduled for late March (around the ). b) Instruct patient to confirm and attend scheduled mammogram appointment. 5. Weight management: - Assessment: Current weight 117 lbs, consistent with previous 115 lbs. Recent thyroid function tests normal. Weight stable and within healthy range. - Plan: a) Reassure patient about current weight being within normal range. b) Encourage continuation of current physical activity (noted 4000 steps yesterday). Valtrex refilled documented in this [facility]04-28-2025 Instructions* Patient Instructions* Stevan Alicia MD - 01/12/2025 9:15 AM EDT 01/05 ultrasound The right ovary contains a 10 mm x 8 mm x 15 mm mildly echogenic cyst and a 14 mm x 11 mm x 15 mm sonolucent cyst. The left ovary contains a 13 mm x 10 mm x 12 mm mildly echogenic cyst, felt to be hemorrhagic 07/03 The right ovary contains two sonolucent cysts, the largest measures 13 mm x 10 mm x 26 mm. The right ovary also contains a 8 mm x 6 mm x 8 mm hemorrhagic cyst. The left ovary contains two sonolucent cysts, the largest measures 25 mm x 17 mm x 24 mm Conclusion Left hemorrhagic ovarian cyst is new and 2 follicular cysts resolved The right follicular cyst-sonolucent is smaller and one follicular cyst resolved The right hemorrhagic/echogenic cyst is slightly larger documented in this [place] [id number] Evaluation note* Diagnosis Onset Date Resolution Status Admit Date Arthritis of carpometacarpal (CMC) joint of right thumb acute December 26, 2024 9:40am Arthritis of right hand acute A pril 2024 9:40am De Quervain's tenosynovitis, right acute December 26, 2024 9:40am Right wrist pain acute December 262024 9:40am Toe pain, left acute December 9:40am Blood donor chronic February 06 8:56am History of menorrhagia chronic Ma y 2024 8:56am Iron deficiency anemia chronic Ma y 2024 8:56am Back pain, thoracic acute February 25, 2025 7:59am Chronic pain acute February 25, 025 7:59am Myalgia acute February 25 7:59am Other skin changes acute February 152024 11:29am [facility] Work Phone: 1(324) 743-118104-11-2025 Evaluation note* Diagnosis Onset Date Resolution Status Admit Date Arthritis of carpometacarpal (CMC) joint of right thumb acute December 26, 2024 9:40am Arthritis of right hand acute A pril 2024 9:40am De Quervain's tenosynovitis, right acute December 26, 2024 9:40am Right wrist pain acute December 262024 9:40am Toe pain, left acute December 9:40am Blood donor chronic February 06 8:56am History of menorrhagia chronic Ma y 2024 8:56am Iron deficiency anemia chronic Ma y 2024 8:56am Back pain, thoracic acute February 25, 2025 7:59am Chronic pain acute February 25, 2 025 7:59am Myalgia acute February 25 7:59am Other skin changes acute February 152024 11:29am Allodynia acute March 18, 2025 9:29am Degenerative disc disease, cervical acute March 18, 2025 9 :29am Insomnia acute March 18, 2025 9:29am Migraine headache without aura acute March 18, 2025 9:29am Myalgia acute March 18, 2025 9:29am Neck pain acute March 18, 2025 9:29am Paresthesia acute March 18 9:29am Back pain, thoracic acute March 23, 2025 10:08am Chronic pain acute March 23 10:08am Myalgia acute March 23, 2025 10:08am [facility] Work Phone: 1(532) 803-397403-27-2025 Evaluation note* Diagnosis Onset Date Resolution Status Admit Date Back pain, thoracic acute December 11, 2024 10:01am Eye abnormalities acute November 162024 10:01am Insomnia, persistent acute Jhon h 2024 10:01am Menopausal flushing acute December 11, [...] February 06 8:56am History of menorrhagia chronic y 2024 8:56am Iron deficiency anemia chronic y 2024 8:56am [facility] Work Phone: 1(418) 799-193403-27-2025 Evaluation note* Diagnosis Onset Date Resolution Status Admit Date Back pain, thoracic acute December 11, 2024 10:01am Eye abnormalities acute November 162024 10:01am Insomnia, persistent acute John h 2024 10:01am Menopausal flushing acute December 11, [...] y 2024 8:56am Back pain, thoracic acute February 25, 2025 7:59am Chronic pain acute February 25, 025 7:59am Myalgia acute February 25 7:59am [facility] Work Phone: 1(397) 224-502802-28-2025 Evaluation note* Diagnosis Onset Date Resolution Status Admit Date Arthritis of carpometacarpal (CMC) joint of right thumb acute Febru jm 2024 9:18am Arthritis of right hand acute F ebruary 2024 9:18am De Quervain's tenosynovitis, right acute November 14, 2 025 9:18am Right wrist pain acute November 14, 2024 9:18am Back pain, thoracic acute December 11, 2024 10:01am Eye abnormalities acute November 162024 10:01am Insomnia, persistent acute Jhon 2024 10:01am Menopausal flushing acute December 11, 2024 10:01am TMJ (dislocation of temporomandibular joint) acute November 162024 10:01am Arthritis of carpometacarpal (CMC) joint of right thumb acute December 26, 2024 9:40am Arthritis of right hand acute A pril 2024 9:40am De Quervain's tenosynovitis, right acute December 26, 2024 9:40am Right wrist pain acute December 262024 9:40am Toe pain, left acute December 9:40am [facility] Work Phone: 1(590) 938-982301-17-2025 Evaluation note* Diagnosis Onset Date Resolution Status Admit Date Arthritis of carpometacarpal (CMC) joint of right thumb acute Janua ry 2024 8:56am Arthritis of right hand acute J anuary 2024 8:56am De Quervain's tenosynovitis, right acute October 03 8:56am Right wrist pain acute October 03, 2024 8:56am Arthritis of carpometacarpal (CMC) joint of right thumb acute u 2024 9:18am Arthritis of right hand acute F ebruary 2024 9:18am De Quervain's tenosynovitis, right acute November 14, 2 025 9:18am Right wrist pain acute November 14, 2024 9:18am [facility] Work Phone: 1(270) 686-461701-17-2025 Evaluation note* Diagnosis Onset Date Resolution Status Admit Date Arthritis of carpometacarpal (CMC) joint of right thumb acute Janua ry 2024 8:56am Arthritis of right hand acute J anuary 2024 8:56am De Quervain's tenosynovitis, right acute October 03 8:56am Right wrist pain acute October 03, 2024 8:56am Arthritis of carpometacarpal (CMC) joint of right thumb acute u jm2024 9:18am Arthritis of right hand acute F ebruary 2024 9:18am De Quervain's tenosynovitis, right acute November 14, 2 025 9:18am Right wrist pain acute November 14, 2024 9:18am Back pain, thoracic acute December 11, 2024 10:01am Eye abnormalities acute November 162024 10:01am Insomnia, persistent acute Jhon 2024 10:01am Menopausal flushing acute December 11, 2024 10:01am TMJ (dislocation of temporomandibular joint) acute November 162024 10:01am Arthritis of carpometacarpal (CMC) joint of right thumb acute December 26, 2024 9:40am Arthritis of right hand acute A pril 2024 9:40am De Quervain's tenosynovitis, right acute December 26, 2024 9:40am Right wrist pain acute December 262024 9:40am Toe pain, left acute December 9:40am [facility] Work Phone: 1(504) 463-992810-31-2024 History of Present illness Narrative* Lise Benavides, ZAY - 07/17/2024 8:15 AM EDT Images from the original note were not included. Stevan Alicia MD Obstetrics and Gynecology Patient: Katy Banuelos : 1975 (49 y.o.) Exam Date: 07/17/2024 Reason for Visit - Chief Complaint Patient presents with Televisit Telvisit for a 2 week follow up on vaginal concerns and ovarian cyst. Visit Vitals OB Status Ablation Smoking Status Every Day History of Present Illness, Associated Treatments and Results - OB History Para Term AB Living 2 0 0 0 0 2 SAB IAB Ectopic Multiple Live Births 0 0 0 0 2 # Outcome Date GA Lbr Jc/2nd Weight Sex Type Anes PTL Lv 2 1 Constitutional: Negative. HENT: Negative. Eyes: Negative. Respiratory: Negative. Cardiovascular: Negative. Gastrointestinal: Negative. Endocrine: Negative. Genitourinary: Negative. Musculoskeletal: Negative. Skin: Negative. Allergic/Immunologic: Negative. Neurological: Negative. Hematological: Negative. Psychiatric/Behavioral: Negative. Allergies Allergen Reactions Cat Hair Extract Unknown Dust Mite Extract Unknown Glycerin Unknown Molds & Smuts Other Current Outpatient Medications: ALPRAZolam (Xanax) 1 MG tablet, TAKE 1 TABLET BY MOUTH 4 TIMES A DAY DIRECTED FOR 25 DAYS., Disp: , Rfl: ibuprofen 800 MG tablet, TAKE 1 TABLET BY MOUTH FOUR TIMES A DAY NEEDED, Disp: , Rfl: iron polysaccharides (ProFe) 391.3 (180 Fe) MG capsule, Take 1 capsule (391.3 mg) by mouth Daily, Disp: 90 capsule, Rfl: 3 omeprazole (PriLOSEC) [address] capsule, Take 40 mg by mouth Daily, Disp: , Rfl: Restasis 0.05 % ophthalmic emulsion, Administer 1 drop into both eyes in the morning and 1 drop before bedtime., Disp: , Rfl: tiotropium (Spiriva Respimat) 2.5 MCG/ACT inhaler, Inhale 2 puffs Daily, Disp: 1 each, Rfl: 5 traMADol (Ultram) 50 MG tablet, Three times daily, Disp: , Rfl: valACYclovir (Valtrex) 500 MG tablet, Take 1 tablet (500 mg) by mouth twice daily for 3 days. 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 07/18/2023 Allergies Anemia Anxiety Arthritis of carpometacarpal (CMC) joint of right thumb 12/28/2023 Bipolar II disorder ([facility]) 07/18/2023 Bowel obstruction ([facility]) 1994 Chicken pox Chronic allergic rhinitis 07/18/2023 Chronic maxillary sinusitis Chronic vaginitis 07/18/2023 SANGITA I (cervical intraepithelial neoplasia I) 07/18/2023 Contusion of right foot 12/28/2023 De Quervain's tenosynovitis, right 12/28/2023 Depression ([facility]) Dysmenorrhea 07/18/2023 Endometriosis of uterus 08/04/2009 Foot fracture, right 2019 broken right foot Genital herpes simplex 09/22/2009 H/O tubal ligation 2009 Headache History of medical problems routine blood donor- every 56 days per pt History of medical treatment 2000 diagnostic lap History of menorrhagia 12/28/2023 HSV-2 infection Hypertension ([facility]) Insomnia, persistent 12/28/2023 Iron deficiency anemia 12/28/2023 Menorrhagia with irregular cycle 07/18/2023 Migraine ([facility]) Mixed incontinence 06/30/2024 Mixed stress and urge incontinence 07/18/2023 Peroneal tendinitis, right leg 12/28/2023 x2 Restless leg syndrome 12/28/2023 Right hand pain 12/28/2023 Right wrist pain 12/28/2023 Sinusitis acute maxillary TMJ (dislocation of temporomandibular joint) Vaginal infection Past Surgical History: Procedure Laterality Date CERVICAL BIOPSY W/ LOOP ELECTRODE EXCISION 2008 COLONOSCOPY 04/26/2022 EGD COLPOSCOPY 07/10/2022 negative COLPOSCOPY 2016 EGD 04/26/2022 ENDOMETRIAL ABLATION HYSTEROSCOPY 2019 TUBAL LIGATION 08/2008 WISDOM TOOTH EXTRACTION 2016 WISDOM TOOTH EXTRACTION 1995 Family History Problem Relation Name Age of Onset Alzheimer's disease Father Prostate cancer Father Other cancer Father bladder Kidney failure Father Diabetes Father Hypertension Father Heart disease Father Stroke Father Mental illness Father Leukemia Maternal Grandmother Breast cancer Neg Hx Colon cancer Neg Hx Ovarian cancer Neg Hx Social History Tobacco Use Smoking Status Every Day Current packs/day: 1.00 Average packs/day: 1 pack/day for 30.0 years (30.0 ttl pk-yrs) Types: Cigarettes Smokeless Tobacco Never Physical Exam - General appearance, mentation, extraocular movements, facial strength and movement, hearing, upper and lower extremity strength and tone, sensation to gross testing, coordination, and gait are normalor at baseline unless noted below. OBGyn Exam Assessment/Plan Verbal consent given for televisit over the phone. Provider in office and patient at home. ICD-10-CM 1. Mood swings R45.86 2. Vaginal itching N89.8 3. Vaginal discharge N89.8 4. Cysts of both ovaries N83.201 N83.202 Referral for Hematology for anemia sent, Vitamin B6, Zoloft and Unisom sent for mood swings and insomina. Patient would like biodenticles from [facility], script sent. documented in this [facility]10-31-2024 Instructions* Patient Instructions* Stevan Alicia MD - 07/17/2024 8:15 AM EDT Images from the original note were not included. documented in this [facility]10-28-2024 Telephone encounter Note* Telephone Encounter - Elvia Wheatley - 07/14/2024 10:11 AM EDT . [id number] Miscellaneous Notes* Telephone Encounter - Elvia Wheatley - 07/14/2024 10:11 AM EDT . documented in this [facility]10-24-2024 History of Present illness Narrative* Stevan Alicia MD - 07/10/2024 2:39 PM EDT Positive culture [id number] History of Present illness Narrative* Stevan Alicia MD - 07/03/2024 2:45 PM EDT Images from the original note were not included. Stevan Alicia MD Obstetrics and Gynecology Patient: Katy Banuelos : 1975 (49 y.o.) Yearly Wellness Exam Date: 07/03/2024 Reason for Visit - Chief Complaint Patient presents with Gynecologic Exam LMP: Ablation Last Mammogram: 04/07/24 Last Pap: 06/14/23- [facility] Colonoscopy: 04/13/22 FSH 9.9 Complaints: mood swing, vaginal itching, abnormal discharge. Dense breasts The patient reports experiencing sinus drainage and coughing up mucus. She has a history of COPD and is concerned about developing another sinus infection. The patient is scheduled to see her PCP in two weeks. The patient mentions a discomfort in the vaginal area, specifically on the right side, which has been present for the last few days. She is unsure if it is a hemorrhoid or another issue. The patient has a history of colonoscopy and was referred to a sales estimator for a vein-like issue near the anal area. The sales estimator advised her to leave it alone. The patient is concerned about the appearance of the vein and seeks reassurance. The patient inquires about the health of her vaginal tissues and the possibility of an infection. She is concerned about the presence of yeast infection or other issues. In House Ultrasound: The patient inquired about the status of their cysts, specifically whether they are shrinking. No further information regarding the patient's chief complaint, history of present illness, or relevant symptoms, feelings, and experiences was provided. RT ovary cyst- [id number] 1.3 [id number] 1.6 LT ovary cyst- [id number] 1.2 [id number] 1.06 See chart for report. Visit Vitals OB Status Ablation Smoking Status Every Day History of Present Illness, Associated Treatments and Results - OB History Para Term AB Living 2 0 0 0 0 2 SAB IAB Ectopic Multiple Live Births 0 0 0 0 2 # Outcome Date GA Lbr Jc/2nd Weight Sex Type Anes PTL Lv 2 1 Review of Systems - Constitutional: Negative. HENT: Negative. Eyes: Negative. Respiratory: Negative. Cardiovascular: Negative. Gastrointestinal: Negative. Endocrine: Negative. Genitourinary: Negative. Musculoskeletal: Negative. Skin: Negative. Allergic/Immunologic: Negative. Neurological: Negative. Hematological: Negative. Psychiatric/Behavioral: Negative. Allergies Allergen Reactions Cat Hair Extract Unknown Dust Mite Extract Unknown Glycerin Unknown Molds & Smuts Other Current Outpatient Medications: ALPRAZolam (Xanax) 1 MG tablet, TAKE 1 TABLET BY MOUTH 4 TIMES A DAY DIRECTED FOR 25 DAYS., Disp: , Rfl: ibuprofen 800 MG tablet, TAKE 1 TABLET BY MOUTH FOUR TIMES A DAY NEEDED, Disp: , Rfl: iron polysaccharides (ProFe) 391.3 (180 Fe) MG capsule, Take 1 capsule (391.3 mg) by mouth Daily, Disp: 90 capsule, Rfl: 3 omeprazole (PriLOSEC) [address] capsule, Take 40 mg by mouth Daily, Disp: , Rfl: Restasis 0.05 % ophthalmic emulsion, Administer 1 drop into both eyes in the morning and 1 drop before bedtime., Disp: , Rfl: tiotropium (Spiriva Respimat) 2.5 MCG/ACT inhaler, Inhale 2 puffs Daily, Disp: 1 each, Rfl: 5 traMADol (Ultram) 50 MG tablet, Three times daily, Disp: , Rfl: Past Medical History: Diagnosis Date Abdominal pain 12/28/2023 Abnormal Pap smear of vagina Adult celiac disease ([facility]) 12/28/2023 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 07/18/2023 Allergies Anemia Anxiety Arthritis of carpometacarpal (CMC) joint of right thumb 12/28/2023 Bipolar II disorder ([facility]) 07/18/2023 Bowel obstruction ([facility]) 1994 Chicken pox Chronic allergic rhinitis 07/18/2023 Chronic maxillary sinusitis Chronic vaginitis 07/18/2023 SANGITA I (cervical intraepithelial neoplasia I) 07/18/2023 Contusion of right foot 12/28/2023 De Quervain's tenosynovitis, right 12/28/2023 Depression ([facility]) Dysmenorrhea 07/18/2023 Endometriosis of uterus 08/04/2009 Foot fracture, right 2019 broken right foot Genital herpes simplex 09/22/2009 H/O tubal ligation 2008 Headache History of medical problems routine blood donor- every 56 days per pt History of medical treatment 2000 diagnostic lap History of menorrhagia 12/28/2023 HSV-2 infection Hypertension ([facility]) Insomnia, persistent 12/28/2023 Iron deficiency anemia 12/28/2023 Menorrhagia with irregular cycle 07/18/2023 Migraine ([facility]) Mixed incontinence 06/30/2024 Mixed stress and urge incontinence 07/18/2023 Peroneal tendinitis, right leg 12/28/2023 x2 Restless leg syndrome 12/28/2023 Right hand pain 12/28/2023 Right wrist pain 12/28/2023 Sinusitis acute maxillary TMJ (dislocation of temporomandibular joint) Vaginal infection Past Surgical History: Procedure Laterality Date CERVICAL BIOPSY W/ LOOP ELECTRODE EXCISION 2008 COLONOSCOPY 04/26/2022 EGD COLPOSCOPY 07/10/2022 negative COLPOSCOPY 2015 EGD 04/26/2022 ENDOMETRIAL ABLATION HYSTEROSCOPY 2019 TUBAL LIGATION 08/2008 WISDOM TOOTH EXTRACTION 2016 WISDOM TOOTH EXTRACTION 1995 Family History Problem Relation Name Age of Onset Alzheimer's disease Father Prostate cancer Father Other cancer Father bladder Kidney failure Father Diabetes Father Hypertension Father Heart disease Father Stroke Father Mental illness Father Leukemia Maternal Grandmother Breast cancer Neg Hx Colon cancer Neg Hx Ovarian cancer Neg Hx Social History Tobacco Use Smoking Status Every Day Current packs/day: 1.00 Average packs/day: 1 pack/day for 30.0 years (30.0 ttl pk-yrs) Types: Cigarettes Smokeless Tobacco Never Physical Exam - General appearance, mentation, extraocular movements, facial strength and movement, hearing, upper and lower extremity strength and tone, sensation to gross testing, coordination, and gait are normalor at baseline unless noted below. Physical Exam Constitutional: Appearance: Normal appearance. Genitourinary: Genitourinary Comments: Anterior cervix Right multiple teeny ulcers Veib below rectum Right Labia: No rash or lesions. Left Labia: No lesions or rash. No vaginal discharge or erythema. No vaginal prolapse present. No vaginal atrophy present. Right Adnexa: not tender and no mass present. Left Adnexa: not tender and no mass present. No cervical lesion. Uterus is not tender. Uterus is anteverted. Breasts: Right: Normal. No mass or nipple discharge. Left: Normal. No mass or nipple discharge. HENT: Head: Normocephalic and atraumatic. Cardiovascular: Rate and Rhythm: Normal rate and regular rhythm. Pulmonary: Breath sounds: Normal breath sounds. Comments: Bilateral rhonchi Abdominal: General: There is no distension. Palpations: Abdomen is soft. There is no mass. Tenderness: There is no abdominal tenderness. Musculoskeletal: General: Normal range of motion. Cervical back: Neck supple. Lymphadenopathy: Cervical: No cervical adenopathy. Neurological: Mental Status: She is alert and oriented to person, place, and time. Skin: General: Skin is warm and dry. Psychiatric: Mood and Affect: Mood normal. Assessment/Plan ICD-10-CM 1. Encounter for screening mammogram for malignant neoplasm of breast Z12.31 2. Screening for malignant neoplasm of cervix Z12.4 3. Encounter for gynecological examination without abnormal finding Z01.419 4. History of endometrial ablation Z98.890 5. Hx of ovarian cyst Z87.42 Katy was seen today for gynecologic exam. Diagnoses and all orders for this visit: Encounter for screening mammogram for malignant neoplasm of breast - Bilateral screening mammogram with tomosynthesis; Future Screening for malignant neoplasm of cervix - SENDOUT TEST MISCELLANEOUS [facility] Encounter for gynecological examination without abnormal finding - SENDOUT TEST MISCELLANEOUS [facility] History of endometrial ablation Hx of ovarian cyst Vaginal discharge - Urine dip Pap and exam performed. Mammogram ordered Results can be found in MyChart in 7 days [facility] discussed Return 1 year/prn 1. Hemorrhoid and prominent vein: - Assessment: Patient reports a hemorrhoid on the right side and a prominent vein in the perianal area. Physical examination confirms the presence of both. - Plan: Reassure the patient that no intervention is needed for the prominent vein. Advise the patient to monitor the hemorrhoid and seek medical attention if it worsens or causes significant discomfort. 2. Possible yeast infection: - Assessment: Patient reports recent discomfort in the vaginal area. Physical examination reveals small sores in the area. No signs of infection were observed during the examination. - Plan: Obtain cultures to rule out yeast infection or other possible infections. Await culture results and treat accordingly if positive. 3. COPD and sinus drainage: - Assessment: Patient reports having COPD and is currently experiencing sinus drainage, leading to coughing up mucus. - Plan: Encourage the patient to follow up with their primary care physician in two weeks or soonerif symptoms worsen. Consider prescribing medication for sinus drainage if deemed necessary by the PCP. 4. Routine gynecological examination: - Assessment: Patient presents for a routine gynecological examination. Ultrasound results were normal. - Plan: Continue with annual gynecological examinations and follow up on any abnormal findings. Encourage the patient to maintain a healthy lifestyle and report any new or concerning symptoms. In House Ultrasound: 1. Ovarian cysts: - Multiple ovarian cysts with dimensions: [id number], [id number], [id number], and a larger cyst measuring [id number] - Plan: a) Monitor the size and growth of the cysts through regular ultrasound examinations. b) Consider hormonal therapy or oral contraceptives to help regulate the menstrual cycle and potentially reduce the size of the cysts. c) Discuss the possibility of surgical intervention if the cysts continue to grow or cause significant symptoms. d) Encourage the patient to report any new or worsening symptoms, such as pelvic pain or irregular menstrual bleeding. documented in this [facility]10-15-2024 History of Present illness Narrative* Marta Hernandez, - 07/01/2024 3:15 PM EDT Images from the original note were not included. Katy Parker Mark presents today for follow up on her COPD. She was last seen 6 months ago. She states her breathing has been stable since her last office visit. She does continue with Spiriva oncedaily. She denies any current complaints of increasing shortness breath at rest with exertion. She denies any chest pain, palpitations, fevers, chills, sweats, or recent unintentional weight changes.She denies any exacerbations since her last office visit. She does continue to smoke on a daily basis. She states she does generally cut back in the winter time when it gets cold outside. She denies any other complaints. Allergies: Allergies Allergen Reactions Cat Hair Extract Unknown Dust Mite Extract Unknown Glycerin Unknown Molds & Smuts Other Medications: Current Outpatient Medications: ALPRAZolam (Xanax) 1 MG tablet, TAKE 1 TABLET BY MOUTH 4 TIMES A DAY DIRECTED FOR 25 DAYS., Disp: , Rfl: ibuprofen 800 MG tablet, TAKE 1 TABLET BY MOUTH FOUR TIMES A DAY NEEDED, Disp: , Rfl: iron polysaccharides (ProFe) 391.3 (180 Fe) MG capsule, Take 1 capsule (391.3 mg) by mouth Daily, Disp: 90 capsule, Rfl: 3 omeprazole (PriLOSEC) [address] capsule, Take 40 mg by mouth Daily, Disp: , Rfl: Restasis 0.05 % ophthalmic emulsion, Administer 1 drop into both eyes in the morning and 1 drop before bedtime., Disp: , Rfl: traMADol (Ultram) 50 MG tablet, Three times daily, Disp: , Rfl: tiotropium (Spiriva Respimat) 2.5 MCG/ACT inhaler, Inhale 2 puffs Daily, Disp: 1 each, Rfl: 5 Past Medical History: Past Medical History: Diagnosis Date Abdominal pain 12/28/2023 Abnormal Pap smear of vagina Adult celiac disease ([facility]) 12/28/2023 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 07/18/2023 Allergies Anemia Anxiety Arthritis of carpometacarpal (CMC) joint of right thumb 12/28/2023 Bipolar II disorder ([facility]) 07/18/2023 Bowel obstruction ([facility]) 1995 Chicken pox Chronic allergic rhinitis 07/18/2023 Chronic maxillary sinusitis Chronic vaginitis 07/18/2023 SANGITA I (cervical intraepithelial neoplasia I) 07/18/2023 Contusion of right foot 12/28/2023 De Quervain's tenosynovitis, right 12/28/2023 Depression ([facility]) Dysmenorrhea 07/18/2023 Endometriosis of uterus 08/04/2009 Foot fracture, right 2019 broken right foot Genital herpes simplex 09/22/2009 H/O tubal ligation 2009 Headache History of medical problems routine blood donor- every 56 days per pt History of medical treatment 2000 diagnostic lap History of menorrhagia 12/28/2023 HSV-2 infection Hypertension ([facility]) Insomnia, persistent 12/28/2023 Iron deficiency anemia 12/28/2023 Menorrhagia with irregular cycle 07/18/2023 Migraine (CMS/HCC) Mixed incontinence 06/30/2024 Mixed stress and urge incontinence 07/18/2023 Peroneal tendinitis, right leg 12/28/2023 x2 Restless leg syndrome 12/28/2023 Right hand pain 12/28/2023 Right wrist pain 12/28/2023 Sinusitis acute maxillary TMJ (dislocation of temporomandibular joint) Vaginal infection Social History: Social History Tobacco Use Smoking status: Every Day Current packs/day: 1.00 Average packs/day: 1 pack/day for 30.0 years (30.0 ttl pk-yrs) Types: Cigarettes Smokeless tobacco: Never Substance Use Topics Alcohol use: Never Comment: caffeine intake: 2-3 cups per day of coffee, soda/pop Vitals: BP 114/71 (BP Location: Left arm, Patient Position: Sitting) Pulse 76 Ht 5' 6 Wt 115 lb SpO2 99% BMI 18.56 kg/m Exam: Heart: regular rate Lungs: clear to auscultation bilaterally, no wheezes/rales/rhonchi, no resp distress Extremities: no edema noted, no visible rashes Neuro: alert, oriented x3 Imaging Reviewed: None Assessment/Plan: Diagnoses and all orders for this visit: Chronic obstructive pulmonary disease, unspecified COPD type (CMS/HCC) - tiotropium (Spiriva Respimat) 2.5 MCG/ACT inhaler; Inhale 2 puffs Daily - CT chest wo IV contrast; Future Cigarette smoker COPD -- at this time her breathing is stable with use of Spiriva once daily. She did request a refill at today's office visit. She will continue with her current regimen given that she does have goodcontrol her breathing. She last had a CT scan of her chest performed approximately 1 year ago. Given the patient's history of smoking and family history, we discussed obtaining a repeat CT to re-evaluate her emphysematous changes, etc.. This will be ordered at the hospital per her request. Tobacco use -- she does continue to smoke on a daily basis. We did have a 4 minute discussion regarding the importance of smoking cessation at today's office visit. Follow up in about 6 months (around 12/30/2024) for COPD. Marta Hernandez DO documented in this encounterThe Rehabilitation [id number] Evaluation note* Diagnosis Onset Date Resolution Status Admit Date Arthritis of carpometacarpal (CMC) joint of right thumb acute Augus t 2023 7:55am Arthritis of right hand acute A ugust 2023 7:55am De Quervain's tenosynovitis, right acute May 13 7:55am Right wrist pain acute April 182023 7:55am Arthritis of carpometacarpal (CMC) joint of right thumb acute Octob er 2023 7:52am Arthritis of right hand acute O ctober 2023 7:52am De Quervain's tenosynovitis, right acute June 25 7:52am Right wrist pain acute June 25, 2024 7:52am Acute maxillary sinusitis, unspecified July 19, 2018 acute July 14, 2024 8:37am Back pain, thoracic acute Octob er 2023 8:37am Bloating acute July 14, 2024 8:37am Insomnia, persistent acute Octo star 2023 8:37am Raynauds disease acute July 14, 2024 8:37am TMJ (dislocation of temporomandibular joint) acute July 14, 2024 8:37am Blood donor chronic July 10:22am History of menorrhagia chronic No vember 2023 10:22am Iron deficiency anemia chronic No vember 2023 10:22am Restless leg syndrome chronic Nov 2023 10:22am [facility] Work Phone: 1(338) 980-130404-09-2024 Evaluation note* Author [facility] Authored December 25, 2023 11:2 8am 48 y/o female referred to [facility] for evaluation of abdominal pain. Patient reports intermittent upper abdominal pain and bloating for 2-3 years. + iron deficiency anemia on iron supplementation for 3 years. + NSAIDs use + early satiety Will arrange for EGD/Colonoscopy then will determine the need to increase omeprazole 40 mg daily [facility] Work Phone: 1(690) 753-527602-09-2024 History of Present illness Narrative* Dio Fernandez Marco, DO - 10/26/2023 10:15 AM EST Images from the original note were not included. Katy Banuelos 1975 Katy Banuelos is a 48 y.o. female presents with chief complaint of HIDA scan results HPI: HPI Kayt presents to review the results of the HIDA scan. Katy states over the summer she had two episodes of right sided abdominal pain that lasted about 25 minutes. It's like a stabbing pain, which comes on quickly and it resolves by itself. She also has increased gas and burping. Her last EGD/colonoscopy was 2021 for the same issue and they were negative SUBJECTIVE: MEDICATIONS: ALLERGIES Current Outpatient Medications Medication Instructions acyclovir (Zovirax) 400 MG tablet TAKE 1 TABLET BY MOUTH EVERY DAY FOR 30 DAYS ALPRAZolam (Xanax) 1 MG tablet TAKE 1 TABLET BY MOUTH 4 TIMES A DAY DIRECTED FOR 25 DAYS. cyancobalamine (VITAMIN B-12) 250 mcg, Oral, Daily estradiol (Estrace) 0.1 MG/GM vaginal cream 1 gm application daily at bedtime for 2 weeks, then 1 gm application 2 times/week. 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 07/18/2023 Allergies Anemia Anxiety Bipolar II disorder ([facility]) 07/18/2023 Bowel obstruction ([facility]) 1994 Chicken pox Chronic allergic rhinitis 07/18/2023 Chronic maxillary sinusitis Chronic vaginitis 07/18/2023 SANGITA I (cervical intraepithelial neoplasia I) 07/18/2023 Depression ([facility]) Dysmenorrhea 07/18/2023 Endometriosis of uterus 08/04/2009 Foot fracture, right 2019 broken right foot Genital herpes simplex 09/22/2009 H/O tubal ligation 2009 Headache History of medical problems routine blood donor- every 56 days per pt History of medical treatment 2001 diagnostic lap HSV-2 infection Hypertension (CMS/HCC) Menorrhagia with irregular cycle 07/18/2023 Migraine ([facility]) Mixed stress and urge incontinence 07/18/2023 x2 Sinusitis acute maxillary TMJ (dislocation of temporomandibular joint) Vaginal infection Social History Tobacco Use Smoking status: Every Day Packs/day: 1.00 Years: 30.00 Additional pack years: 0.00 Total pack years: 30.00 Types: Cigarettes Smokeless tobacco: Never Vaping Use Vaping Use: Never used Substance Use Topics Alcohol use: Never Comment: caffeine intake: 2-3 cups per day of coffee, soda/pop Drug use: Never Past Surgical History: Procedure Laterality Date CERVICAL BIOPSY W/ LOOP ELECTRODE EXCISION 2008 COLONOSCOPY 04/26/2022 EGD COLPOSCOPY 07/10/2022 negative COLPOSCOPY 2015 EGD 04/26/2022 ENDOMETRIAL ABLATION HYSTEROSCOPY 2019 TUBAL LIGATION 08/2008 WISDOM TOOTH EXTRACTION 2016 WISDOM TOOTH EXTRACTION 1996 FAMILY HISTORY Family History Problem Relation Name Age of Onset Alzheimer's disease Father Prostate cancer Father Other cancer Father bladder Kidney failure Father Diabetes Father Hypertension Father Heart disease Father Stroke Father Mental illness Father Leukemia Maternal Grandmother Breast cancer Neg Hx Colon cancer Neg Hx Ovarian cancer Neg Hx REVIEW OF SYMPTOMS: Review of Systems Constitutional: Positive for unexpected weight change. Negative for diaphoresis. Lost 20 lbs over 3-4 months last year but she is stable now but can't gain weight HENT: Negative for hearing loss, tinnitus and voice change. Respiratory: Positive for shortness of breath. Cardiovascular: Negative for chest pain and palpitations. Gastrointestinal: Positive for abdominal pain. Musculoskeletal: Positive for neck pain. Neurological: Positive for headaches. Negative for dizziness and seizures. Psychiatric/Behavioral: The patient is nervous/anxious. All other systems reviewed and are negative. Hematological: Negative for adenopathy. Does not bruise/bleed easily. OBJECTIVE: Visit Vitals OB Status Ablation Smoking Status Every Day Physical Exam HENT: Head: Normocephalic. Cardiovascular: Rate and Rhythm: Normal rate and regular rhythm. Pulmonary: Effort: Pulmonary effort is normal. Breath sounds: Normal breath sounds. Abdominal: General: Abdomen is flat. Bowel sounds are normal. Palpations: Abdomen is soft. Skin: General: Skin is warm and dry. Neurological: Mental Status: She is alert. ASSESSMENT AND PLAN: Assessment/Plan Problem List Items Addressed This Visit Right upper quadrant pain - Primary Katy continues to have RUQ pain as described in the HPI. had a GB US that showed adenomyomatosis ofthe GB. I explained the benign nature of the findings. The HIDA scan was negative with a normal EF of 83%. From a surgical standpoint I don't see that cholecystectomy is indicated. I don't have an explanation for her RUQ pain. Her weight is stable, she is very active and works out so she is probably burning off more calories then she is taking in. I will refer her to GI for second opinion and possible additional workup. I'll see her PRN. documented in this encounterThe Rehabilitation [id number] Evaluation note* Encounter Date Diagnosis Assessment Notes Treatment Notes Treatment Clinical Notes Aug, Adenomyosis, gallbladder (ICD-10 - K82.8) Aug, RUQ pain (ICD-10 - R10.11) [facility] Other [id number] Evaluation note* Encounter Date Diagnosis Assessment Notes Treatment Notes Treatment Clinical Notes Aug, Right hand pain (ICD-10 - M79.641) Aug, Injury of right thumb, initial encounter (ICD-10 - S69.91XA) Discussed with patient and company on the patient's symptoms, exam, and imaging. Likely etiologies of the patient's symptoms were discussed. Patient is likely suffering from an injury to the right thumb. It is difficult to assess exactly where she is hurting because her symptoms are diffuse and nonspecific. We discussed various treatment options. At this point we will pursue conservative management in the form of bracing and oral anti-inflammatories. We gave her a thumb spica brace for thumb weakness and supports. Advised she should wear the brace daily for 2 weeks. Advised she can come out of the brace while at home to work on range of motion exercises. After 2 weeks, she can start wearing the brace when active and at night. We will also send in Meloxicam 15mg for her. She can continue weight bearing as tolerated. She will follow up in 4 weeks for reevaluation. [facility] Other 12-04-2023 Evaluation note* Encounter Date Diagnosis Assessment Notes Treatment Notes Treatment Clinical Notes Aug, RUQ abdominal pain (ICD-10 - R10.11) Pt states she needs a refill of the omeprazole and GI is not returning her call. Rx sent. Katy agrees to start w GBUS Aug, Acute non-recurrent sinusitis, unspecified location (ICD-10 - J01.90) Sinus infections can be triggered by a secondary infection from a viral URI or even seasonal allergies. Take medications as directed. Use saline nasal spray prior to presciption nasal spray. Take medications as directed, and complete all doses of medication even if you start to feel better. Patient advised to follow up with PCP if symptoms persist or worsen. Patient verbalized understanding and agreement with treatment plan. 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 Other dentist info given to pt. OARRS reviewed. [facility] Other 11-01-2023 Evaluation note* Encounter Date Diagnosis Assessment Notes Treatment Notes Treatment Clinical Notes Jul, Cervical spondylosis (ICD-10 - M47.812) 48 year old female presents with complaints of neck pain with radiation into the back of the skull. She also notes radiation to the bilateral shoulders. She also voices complaints of jaw pain secondary to TMJ. She notes a long history of neck pain, but states symptoms have gradually increased and become more bothersome. She reports prior physical therapy with no improvement in her symptoms. She also notes prior trigger point injections at [facility] with minimal relief. She feels pain negatively impacts her daily activities and sleeping pattern. Prior to examining the patient, I reviewed progress notes from her referring provider Dr Lambert. I also independently reviewed recent imaging of the cervical spine which shows multilevel disc bulges with narrowing of the spinal canal as well as facet arthropathy. Different treatment options were discussed in detail with the patient, and I recommend we proceed with a right cervical facet medial branch nerve block under fluoroscopic guidance. Risks and benefits of procedure explained to patient; patient verbalizes understanding. Jul, Occipital neuralgia (ICD-10 - M54.81) In the future if the pain persists, we can consider proceeding with a right greater and lesser occipital nerve block Jul, Interscapular pain (ICD-10 - M54.89) In the future if the pain persists, we can consider proceeding with a trigger point injection to the right interscapular muscles under ultrasound guidance. Jul, Chronic pain (ICD-10 - G89.29) UDS performed through [facility] today, will await confirmatory results. Jul, Other Medical deci jaime making shows a new problem to me with further workup planned or suggested with the potential for extensive treatment options that were considered with the most applicable given this patient's situation as noted above. Treatment options considered include a combination of physical therapy approaches, pharmacologic management, and interventional procedures. Those most applicable to the patient were discussed at this time. Risk of complications and/or morbidity and mortality is high given that acute and chronic pain poses a threat to life and bodily function if undertreated, poorly treated or with failure to maintain adequate treatment and timely followup. Given the serious and fluctuating nature of pain with extensive consideration for whenever pain changes, there always remains the possibility of prolonged functional impairment requiring constant patient reassessment and high-level medical decision making. The amount and complexity of data reviewed is high given that patient labs, radiology reports, and other test were obtained, reviewed and summarized as applicable from the physician portal and/or outside medical records. Pertinent positive and negative findings were considered in medical decision-making. [facility] Other 10-17-2023 Evaluation note* Encounter Date Diagnosis Assessment Notes Treatment Notes Treatment Clinical Notes Jun, TMJ arthralgia (ICD-10 - M26.629) [facility] Other 09-14-2023 Evaluation note* Encounter Date Diagnosis Assessment Notes Treatment Notes Treatment Clinical Notes May, Low TSH level (ICD-10 - R79.89) May, Unexplained weight gain (ICD-10 - R63.5) [facility] Other 08-30-2023 Hospital Discharge instructions Patient Education 05/16/2023 09:23:07 Steps to Quit Smoking Steps to Quit Smoking Smoking tobacco is the leading cause of preventable . It can affect almost every organ in the body. Smoking puts you and those around you at risk for developing many serious chronic diseases. Quitting smoking can be very challenging. Do not get discouraged if you are not successful the first time. Some people need to make many attempts to quit before they achieve long-term success. Do your best to stick to your quit plan, and talk with your health care provider if you have any questionsor concerns. How do I get ready to quit? When you decide to quit smoking, create a plan to help you succeed. Before you quit: Pick a date to quit. Set a date within the next 2 weeks to give you time to prepare. Write down the reasons why you are quitting. Keep this list in places where you will see it often. Tell your family, friends, and co-workers that you are quitting. Support from people you are close to can make quitting easier. Talk with your health care provider about your options for quitting smoking. Find out what treatment options are covered by your health insurance. Identify people, places, things, and activities that make you want to smoke (triggers). Avoid them. What first steps can I take to quit smoking? Throw away all cigarettes at home, at work, and in your car. Throw away smoking accessories, such as ashtrays and lighters. Clean your car. Make sure to empty the ashtray. Clean your home, including curtains and carpets. What strategies can I use to quit smoking? Talk with your health care provider about combining strategies, such as taking medicines while you are also receiving in-person counseling. Using these two strategies together makes you more likely to succeed in quitting than if you used either strategy on its own. If you are or , talk with your health care provider about finding counseling or other support strategies to quit smoking. Do not take medicine to help you quit smoking unless your health care provider tells you to. Quit right away Quit smoking completely, instead of gradually reducing how much you smoke over a period of time. Stopping smoking right away may be more successful than gradually quitting. Attend in-person counseling to help you build problem-solving skills. You are more likely to succeed in quitting if you attend counseling sessions regularly. Even short sessions of 10 minutes can be effective. Take medicine You may take medicines to help you quit smoking. Some medicines require a prescription. You can also purchase [id number]-[id number] medicines. Medicines may have nicotine in them to replace the nicotine in cigarettes. Medicines may: Help to stop cravings. Help to relieve withdrawal symptoms. Your health care provider may recommend: Nicotine patches, gum, or lozenges. Nicotine inhalers or sprays. Non-nicotine medicine that you take by mouth. Find resources Find resources and support systems that can help you quit smoking and remain smoke-free after you quit. These resources are most helpful when you use them often. They include: Online chats with a counselor. Telephone quitlines. Printed self-help materials. Support groups or group counseling. Text messaging programs. Mobile phone apps or applications. Use apps that can help you stick to your quit plan by providing reminders, tips, and encouragement. Examples of free services include Quit Guide from the CDC and smokefree.gov What can I do to make it easier to quit? Reach out to your family and friends for support and encouragement. Call telephone quitlines, such as 9-032-OVQK-NOW, reach out to support groups, or work with a counselor for support. Ask people who smoke to avoid smoking around you. Avoid places that trigger you to smoke, such as bars, parties, or smoke-break areas at work. Spend time with people who do not smoke. Lessen the stress in your life. Stress can be a smoking trigger for some people. To lessen stress, try: ?Exercising regularly. ?Doing deep-breathing exercises. ?Doing yoga. ?Meditating. What benefits will I see if I quit smoking? Over time, you should start to see positive results, such as: Improved sense of smell and taste. Decreased coughing and sore throat. Slower heart rate. Lower blood pressure. Clearer and healthier skin. The ability to breathe more easily. Fewer sick days. Summary Quitting smoking can be very challenging. Do not get discouraged if you are not successful the first time. Some people need to make many attempts to quit before they achieve long-term success. When you decide to quit smoking, create a plan to help you succeed. Quit smoking right away, not slowly over a period of time. Find resources and support systems that can help you quit smoking and remain smoke-free after you quit. This information is not intended to replace advice given to you by your health care provider. Make sure you discuss any questions you have with your health care provider. Document Revised: 08/25/2022 Document Reviewed: 08/25/2022 [employer] Patient Education 2022 [employer] 05/16/2023 09:22:48 Kegel Exercises Kegel Exercises Kegel exercises can help strengthen your pelvic floor muscles. The pelvic floor is a group of muscles that support your rectum, small intestine, and bladder. In females, pelvic floor muscles also help support the uterus. These muscles help you control the flow of urine and stool (feces). Kegel exercises are painless and simple. They do not require any equipment. Your provider may suggest Kegel exercises to: Improve bladder and bowel control. Improve sexual response. Improve weak pelvic floor muscles after surgery to remove the uterus (hysterectomy) or after , in females. Improve weak pelvic floor muscles after prostate gland removal or surgery, in males. Kegel exercises involve squeezing your pelvic floor muscles. These are the same muscles you squeezewhen you try to stop the flow of urine or keep from passing gas. The exercises can be done while sitting, standing, or lying down, but it is best to vary your position. Ask your health care provider which exercises are safe for you. Do exercises exactly as told by your health care provider and adjust them as directed. Do not begin these exercises until told by your health care provider. Exercises How to do Kegel exercises: 1.Squeeze your pelvic floor muscles tight. You should feel a tight lift in your rectal area. If youare a female, you should also feel a tightness in your vaginal area. Keep your stomach, buttocks, and legs relaxed. 2.Hold the muscles tight for up to 10 seconds. 3.Breathe normally. 4.Relax your muscles for up to 10 seconds. 5.Repeat as told by your health care provider. Repeat this exercise daily as told by your health care provider. Continue to do this exercise for at least 4 6 weeks, or for as long as told by your health care provider. You may be referred to a physical therapist who can help you learn more about how to do Kegel exercises. Depending on your condition, your health care provider may recommend: Varying how long you squeeze your muscles. Doing several sets of exercises every day. Doing exercises for several weeks. Making Kegel exercises a part of your regular exercise routine. This information is not intended to replace advice given to you by your health care provider. Make sure you discuss any questions you have with your health care provider. Document Revised: 01/12/2022 Document Reviewed: 01/12/2022 [employer] Patient Education 2022 [employer]. Follow Up Care 04/17/2023 08:34:14 With:EJ ELLIS, GIANNA Jimenez, URL Address: [address] [address] [phone] When: Unknown Comments:PFPT #4 on 05/30/23 (tentative) [facility] [place] 08-25-2023 Evaluation note* Encounter Date Diagnosis Assessment Notes Treatment Notes Treatment Clinical Notes Apr, TMJ arthralgia (ICD-10 - M26.629) [facility] Other 08-25-2023 Evaluation note* Encounter Date Diagnosis Assessment Notes Treatment Notes Treatment Clinical Notes Apr, Seasonal allergic rhinitis, unspecified trigger (ICD-10 - J30.2) [facility] Other 08-16-2023 Hospital Discharge instructions Patient Education 05/02/2023 10:42:49 Kegel Exercises Kegel Exercises Kegel exercises can help strengthen your pelvic floor muscles. The pelvic floor is a group of muscles that support your rectum, small intestine, and bladder. In females, pelvic floor muscles also help support the uterus. These muscles help you control the flow of urine and stool (feces). Kegel exercises are painless and simple. They do not require any equipment. Your provider may suggest Kegel exercises to: Improve bladder and bowel control. Improve sexual response. Improve weak pelvic floor muscles after surgery to remove the uterus (hysterectomy) or after , in females. Improve weak pelvic floor muscles after prostate gland removal or surgery, in males. Kegel exercises involve squeezing your pelvic floor muscles. These are the same muscles you squeezewhen you try to stop the flow of urine or keep from passing gas. The exercises can be done while sitting, standing, or lying down, but it is best to vary your position. Ask your health care provider which exercises are safe for you. Do exercises exactly as told by your health care provider and adjust them as directed. Do not begin these exercises until told by your health care provider. Exercises How to do Kegel exercises: 1.Squeeze your pelvic floor muscles tight. You should feel a tight lift in your rectal area. If youare a female, you should also feel a tightness in your vaginal area. Keep your stomach, buttocks, and legs relaxed. 2.Hold the muscles tight for up to 10 seconds. 3.Breathe normally. 4.Relax your muscles for up to 10 seconds. 5.Repeat as told by your health care provider. Repeat this exercise daily as told by your health care provider. Continue to do this exercise for at least 4 6 weeks, or for as long as told by your health care provider. You may be referred to a physical therapist who can help you learn more about how to do Kegel exercises. Depending on your condition, your health care provider may recommend: Varying how long you squeeze your muscles. Doing several sets of exercises every day. Doing exercises for several weeks. Making Kegel exercises a part of your regular exercise routine. This information is not intended to replace advice given to you by your health care provider. Make sure you discuss any questions you have with your health care provider. Document Revised: 01/12/2022 Document Reviewed: 01/12/2022 [employer] Patient Education 2022 [employer]. 05/02/2023 10:42:42 Urinary Incontinence Urinary Incontinence Urinary incontinence refers to a condition in which a person is unable to control where and when topass urine. A person with this condition will urinate involuntarily. This means that the person urinates when he or she does not mean to. What are the causes? This condition may be caused by: Medicines. Infections. Constipation. Overactive bladder muscles. Weak bladder muscles. Weak pelvic floor muscles. These muscles provide support for the bladder, intestine, and, in women,the uterus. Enlarged prostate in men. The prostate is a gland near the bladder. When it gets too big, it can pinch the urethra. With the urethra blocked, the bladder can weaken and lose the ability to empty properly. Surgery. Emotional factors, such as anxiety, stress, or post-traumatic stress disorder (PTSD). Spinal cord injury, nerve injury, or other neurological conditions. Pelvic organ prolapse. This happens in women when organs move out of place and into the vagina. This movement can prevent the bladder and urethra from working properly. What increases the risk? The following factors may make you more likely to develop this condition: Age. The older you are, the higher the risk. Obesity. Being physically inactive. and childbirth. Menopause. Diseases that affect the nerves or spinal cord. Long-term, or chronic, coughing. This can increase pressure on the bladder and pelvic floor muscles. What are the signs or symptoms? Symptoms may vary depending on the type of urinary incontinence you have. They include: A sudden urge to urinate, and passing urine involuntarily before you can get to a bathroom (urge incontinence). Suddenly passing urine when doing activities that force urine to pass, such as coughing, laughing, exercising, or sneezing (stress incontinence). Needing to urinate often but urinating only a small amount, or constantly dribbling urine (overflowincontinence). Urinating because you cannot get to the bathroom in time due to a physical disability, such as arthritis or injury, or due to a communication or thinking problem, such as Alzheimer's disease (functional incontinence). How is this diagnosed? This condition may be diagnosed based on: Your medical history. A physical exam. Tests, such as: ?Urine tests. ?X-rays of your kidney and bladder. ?Ultrasound. ?CT scan. ?Cystoscopy. In this procedure, a health care provider inserts a tube with a light and camera (cystoscope) through the urethra and into the bladder to check for problems. ?Urodynamic testing. These tests assess how well the bladder, urethra, and sphincter can store and release urine. There are different types of urodynamic tests, and they vary depending on what the test is measuring. To help diagnose your condition, your health care provider may recommend that you keep a log of when you urinate and how much you urinate. How is this treated? Treatment for this condition depends on the type of incontinence that you have and its cause. Treatment may include: Lifestyle changes, such as: ?Quitting smoking. ?Maintaining a healthy weight. ?Staying active. Try to get 150 minutes of moderate-intensity exercise every week. Ask your health care provider which activities are safe for you. ?Eating a healthy diet. ?Avoid high-fat foods, like fried foods. ?Avoid refined carbohydrates like white bread and white rice. ?Limit how much alcohol and caffeine you drink. ?Increase your fiber intake. Healthy sources of fiber include beans, whole grains, and fresh fruitsand vegetables. Behavioral changes, such as: ?Pelvic floor muscle exercises. ?Bladder training, such as lengthening the amount of time between bathroom breaks, or using the bathroom at regular intervals. ?Using techniques to suppress bladder urges. This can include distraction techniques or controlled breathing exercises. Medicines, such as: ?Medicines to relax the bladder muscles and prevent bladder spasms. ?Medicines to help slow or prevent the growth of a man's prostate. ?Botox injections. These can help relax the bladder muscles. Treatments, such as: ?Using pulses of electricity to help change bladder reflexes (electrical nerve stimulation). ?For women, using a medical associate to prevent urine leaks. This is a small, tampon-like, disposabledevice that is inserted into the urethra. ?Injecting collagen or carbon beads (bulking agents) into the urinary sphincter. These can help thicken tissue and close the bladder opening. ?Surgery. Follow these instructions at home: Lifestyle Limit alcohol and caffeine. These can fill your bladder quickly and irritate it. Keep yourself clean to help prevent odors and skin damage. Ask your health care provider about special skin creams and cleansers that can protect the skin from urine. Consider wearing pads or adult diapers. Make sure to change them regularly, and always change them right after experiencing incontinence. General instructions Take xito-sai-xvfrzav and prescription medicines only as told by your health care provider. Use the bathroom about every 3 4 hours, even if you do not feel the need to urinate. Try to empty your bladder completely every time. After urinating, wait a minute. Then try to urinate again. Make sure you are in a relaxed position while urinating. If your incontinence is caused by nerve problems, keep a log of the medicines you take and the times you go to the bathroom. Keep all follow-up visits. This is important. Where to find more information National [place] of Diabetes and Digestive and Kidney Diseases: www.niddk.nih.gov [place] [employer]: www.urologyhealth.org Contact a health care provider if: You have pain that gets worse. Your incontinence gets worse. Get help right away if: You have a fever or chills. You are unable to urinate. You have redness in your groin area or down your legs. Summary Urinary incontinence refers to a condition in which a person is unable to control where and when topass urine. This condition may be caused by medicines, infection, weak bladder muscles, weak pelvic floor muscles, enlargement of the prostate (in men), or surgery. Factors such as older age, obesity, and childbirth, menopause, neurological diseases, andchronic coughing may increase your risk for developing this condition. Types of urinary incontinence include urge incontinence, stress incontinence, overflow incontinence, and functional incontinence. This condition is usually treated first with lifestyle and behavioral changes, such as quitting smoking, eating a healthier diet, and doing regular pelvic floor exercises. Other treatment options include medicines, bulking agents, medical devices, electrical nerve stimulation, or surgery. This information is not intended to replace advice given to you by your health care provider. Make sure you discuss any questions you have with your health care provider. Document Revised: 04/08/2021 Document Reviewed: 04/08/2021 [employer] Patient Education 2022 [employer]. Follow Up Care 04/17/2023 08:30:21 With:GIANNA KAPLAN PA-C, URL Address: [address] [place] [address] [phone] When: Unknown Comments:PFPT #3 on 05/09/23 [facility] 08-09-2023 Hospital Discharge instructions Patient Education 04/25/2023 10:07:31 Pelvic Floor Dysfunction, Female Pelvic Floor Dysfunction, Female Pelvic floor dysfunction (PFD) is a condition that results when the group of muscles and connectivetissues that support the organs in the pelvis (pelvic floor muscles) do not work well. These muscles and their connections form a sling that supports the colon and bladder. In women, they also support the uterus. PFD causes pelvic floor muscles to be too weak, too tight, or both. In PFD, muscle movements are not coordinated. This may cause bowel or bladder problems. It may also cause pain. What are the causes? This condition may be caused by an injury to the pelvic area or by a weakening of pelvic muscles. This often results from and childbirth or other types of strain. In many cases, the exact cause is not known. What increases the risk? The following factors may make you more likely to develop this condition: Having chronic bladder tissue inflammation (interstitial cystitis). Being an older person. Being overweight. History of radiation treatment for cancer in the pelvic region. Previous pelvic surgery, such as removal of the uterus (hysterectomy). What are the signs or symptoms? Symptoms of this condition vary and may include: Bladder symptoms, such as: ?Trouble starting urination and emptying the bladder. ?Frequent urinary tract infections. ?Leaking urine when coughing, laughing, or exercising (stress incontinence). ?Having to pass urine urgently or frequently. ?Pain when passing urine. Bowel symptoms, such as: ?Constipation. ?Urgent or frequent bowel movements. ?Incomplete bowel movements. ?Painful bowel movements. ?Leaking stool or gas. Unexplained genital or rectal pain. Genital or rectal muscle spasms. Low back pain. Other symptoms may include: A heavy, full, or aching feeling in the vagina. A bulge that protrudes into the vagina. Pain during or after sex. How is this diagnosed? This condition may be diagnosed based on: Your symptoms and medical history. A physical exam. During the exam, your health care provider may check your pelvic muscles for tightness, spasm, pain, or weakness. This may include a rectal exam and a pelvic exam. In some cases, you may have diagnostic tests, such as: Electrical muscle function tests. Urine flow testing. X-ray tests of bowel function. Ultrasound of the pelvic organs. How is this treated? Treatment for this condition depends on the symptoms. Treatment options include: Physical therapy. This may include Kegel exercises to help relax or strengthen the pelvic floor muscles. Biofeedback. This type of therapy provides feedback on how tight your pelvic floor muscles are so that you can learn to control them. Internal or external massage therapy. A treatment that involves electrical stimulation of the pelvic floor muscles to help control pain (transcutaneous electrical nerve stimulation, or TENS). Sound wave therapy (ultrasound) to reduce muscle spasms. Medicines, such as: ?Muscle relaxants. ?Bladder control medicines. Surgery to reconstruct or support pelvic floor muscles may be an option if other treatments do not help. Follow these instructions at home: Activity Do your usual activities as told by your health care provider. Ask your health care provider if youshould modify any activities. Do pelvic floor strengthening or relaxing exercises at home as told by your physical therapist. Lifestyle Maintain a healthy weight. Eat foods that are high in fiber, such as beans, whole grains, and fresh fruits and vegetables. Limit foods that are high in fat and processed sugars, such as fried or sweet foods. Manage stress with relaxation techniques such as yoga or meditation. General instructions If you have problems with leakage: ?Use absorbable pads or wear padded underwear. ?Wash frequently with mild soap. ?Keep your genital and anal area as clean and dry as possible. ?Ask your health care provider if you should try a barrier cream to prevent skin irritation. Take warm baths to relieve pelvic muscle tension or spasms. Take kpvr-jrp-fetasht and prescription medicines only as told by your health care provider. Keep all follow-up visits. How is this prevented? The cause of PFD is not always known, but there are a few things you can do to reduce the risk of developing this condition, including: Staying at a healthy weight. Getting regular exercise. Managing stress. Contact a health care provider if: Your symptoms are not improving with home care. You have signs or symptoms of PFD that get worse at home. You develop new signs or symptoms. You have signs of a urinary tract infection, such as: ?Fever. ?Chills. ?Increased urinary frequency. ?A burning feeling when urinating. You have not had a bowel movement in 3 days (constipation). Summary Pelvic floor dysfunction results when the muscles and connective tissues in your pelvic floor do not work well. These muscles and their connections form a sling that supports your colon and bladder. In women, they also support the uterus. PFD may be caused by an injury to the pelvic area or by a weakening of pelvic muscles. PFD causes pelvic floor muscles to be too weak, too tight, or a combination of both. Symptoms may vary from person to person. In most cases, PFD can be treated with physical therapies and medicines. Surgery may be an option if other treatments do not help. This information is not intended to replace advice given to you by your health care provider. Make sure you discuss any questions you have with your health care provider. Document Revised: 01/11/2022 Document Reviewed: 01/11/2022 [employer] Patient Education 2022 [employer]. Follow Up Care 04/17/2023 08:27:59 With:GIANNA KAPLAN PA-C, URL Address: [address] [address] [phone] When: Unknown Comments:PFPT #2 on 05/02/23 [facility] [place] 07-14-2023 Evaluation note* Encounter Date Diagnosis Assessment Notes Treatment Notes Treatment Clinical Notes Mar, Well adult exam (ICD-10 - Z00.00) We have discussed the necessity of following up with PCP regularly as well as specialists, as needed. Discussed F/U with dentistry and optometry at least yearly. Discussed all preventative measures/ cancer screenings as applicable to this patient. Emphasized the importance of a reduced fat, low carb diet to promote heart health and controlled blood sugars. Reviewed social history and ensured patient is safe within the home today. Pt denies any abuse of alcohol, nicotine, caffeine or recreational drugs. I have ensured patient is of stable mental and physical health today. We have discussed appropriate F/U schedule as well as blood work and vaccinations that apply. All questions answered and patient is sent home pleased, without concerns. 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 Vitals are stable will recheck with test ordered. 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 Refilled med Feb, Chronic cough (ICD-10 - R05.3) Refilled med. [facility] Other 04-03-2023 Evaluation note* Encounter Date Diagnosis Assessment Notes Treatment Notes Treatment Clinical Notes 03 Apr, 2023 Other iron deficiency anemia (ICD-10 - D50.8) Previously with hematology. will start w labs. Dec, Vitamin D deficiency (ICD-10 - E55.9) on supplement - would like to recheck level as she continues to be fatigued. Dec, Hot flashes (ICD-10 - R23.2) questions if she is in menopause. Dec, Other hemorrhoids (ICD-10 - K64.8) requests refill of cream Dec, Smoker (ICD-10 - F17.200) 5 minutes spent with patient counseling on risks of continued smoking, benefits to quiting and options available [facility] Other 02-28-2023 Evaluation note* Encounter Date Diagnosis Assessment Notes Treatment Notes Treatment Clinical Notes Oct, Seasonal allergic rhinitis, unspecified trigger (ICD-10 - J30.2) [facility] Other 01-04-2023 Progress note Author Jana Ridley [facility] September 20, 2022 4:41pm Note Date/Time September 20, 2022 11 :53am [facility] [place] [address] Hem/Onc Follow Up Note - OP Signed Patient: Katy Banuelos MR#: [id number] : 1975 Acct:[id number] Age/Sex: 47 / F Type: REG RCR Copies to: MD Stevan Luna MD-NOMS~ Subjective Date/Time of Service: Date of Service: 09/20/2022 Time of Service: 11:52 Chief Complaint: Patient is here for a 2 month follow up, with labs for review. No concerns voiced at this time. HPI: 09/20/2022: Katy is here for follow-up and lab review after receiving 3 infusions of Koqlyiv124 mg IV 07/25 through 08/04/2022. She does note improved fatigue since her last visit. She notes that she has been a blood donor for the past 30 years donating about once every 56 days. She previously was on iron supplementation with Pro Fe (polysaccharide iron complex) 180 mg daily which she tolerated well. Her primary care had switched her to a different iron formulation which she didnot tolerate well. During her initial evaluation with Dr. Apodaca, he felt that she may have had malabsorption due to a family history of celiac disease as wellas symptoms of bloating and abdominal discomfort with eating bread and gluten containing food items. The patient does note that after receiving her parenteral iron that she had her follow-up lab test last week and then scheduledherself for blood donation the following day with hemoglobin 13.3. She is concerned that she may have recurrent iron deficiency with ongoing blood donation. -- In addition the patient reports that she had menorrhagia until about 2 years ago. She underwent an endometrial ablation by Dr. Alicia at that time and noted that her last period was about 1-1/2 years ago. No other sites of GI blood loss. -- Laboratories ordered by Dr. Apodaca to evaluate for celiac disease on 2returned with normal gliadin and tissue transglutaminase as well as endomysial antibodies. I reassured her that there is unlikely to be malabsorption contributing to her iron deficiency. We discussed decreasing the frequency of her blood donation to every other cycle (over 100 days) and she may resume her Pro Fe iron supplementation every other day (or daily if well-tolerated). She may return for reevaluation by hematology for parenteral iron on an as-needed basis. This is a moderate complexity 35-minute follow-up to review history in more detail (initial evaluation by smita catalan) and to discuss the results of her celiac disease work-up. INITIAL CONSULT with smita Apodaca 07/18/2022: 47-year-old white lady seen for evaluation and management of iron deficiency. Although her hemoglobin is within the normal range, but actually it is falsely elevated secondary to her smoking. Patient used to have significant menorrhagiabut underwent endometrial ablation 18 months ago or so. She said that nutritionally she has not been keen on iron containing foods or healthy nutrients in general. Of much more relevance she has been on regular blood donor for manyyears. When asked about symptoms associated with celiac disease she stated thatshe gets bloating and abdominal discomfort when she eats bread and gluten containing food items. She has a son with established celiac disease according to her - Summary of Therapies Summary of Therapies: 1. 3 infusions of Venofer 300 mg IV 07/25 through 08/04/2022 2. 09/20/2022: Negative work-up for celiac disease. Resuming oral Pro Fe 180 mg daily ROS Details: All systems reviewed & no additional complaints except as documented Subjective/ROS - Narrative: CONSTITUTIONAL: Negative for fatigue (improved since last visit), negative for fever or night sweats. HEAD AND NECK: Negative for changes in hearing and vision. Negative for mouth ulcers, nasal congestion and nasal drainage. PULMONARY: Negative for chest pain, cough and dyspnea. CARDIOVASCULAR: Negative for claudication and irregular heartbeat/palpitations. GASTROINTESTINAL: Negative for abdominal pain, constipation, decreased appetite,diarrhea, nausea or vomiting. No recent weight change. GENITOURINARY: Negative for dysuria and hematuria. LMP 1 1/2 years ago (prior endometrial ablation for menorrhagia 2 year ago). ENDOCRINE: Negative for cold intolerance and heat intolerance. CENTRAL NERVOUS SYSTEM: Negative for gait disturbance and headache. PSYCHIATRIC: Negative for anxiety or depression. DERMATOLOGICAL: Negative for pruritus and rash. Negative for suspicious skin lesions. MUSCULOSKELETAL: Negative for back pain and bone/joint symptoms. HEMATOLOGICAL: Negative for bleeding and easy bruising. Negative for history of transfusion or thromboembolic disease ALLERGY: Negative for environmental allergies and food allergies. PMF - History Attestation statement: The following information was validated with the patient. Source: Old Records Reviewed - Medical History Medical History: Medical History (Last Reviewed 09/20/22 @ 16:32 by Jana Ridley MD) Allergies Anemia Broken foot right 2019 Chicken pox Chronic maxillary sinusitis Hypertension Migraine headache TMJ (dislocation of temporomandibular joint) - Surgical History Surgical History: Surgical History (Last Reviewed 09/20/22 @ 16:32 by Jana Ridley MD) H/O tubal ligation History of dilatation and curettage - Family History Family History: Family History (Last Reviewed 09/20/22 @ 16:32 by Jana Ridley MD) Father Prostate cancer Hypertension CVA (cerebral vascular accident) Father Bladder cancer Grandparent Leukemia - Social History Smoking Status: Current every day smoker Tobacco Type: cigarettes Substance Use Type: Alcohol Home Medications & Allergies Allergies No Known Allergies Allergy (Verified 09/20/22 11:27) Home Medications acyclovir 200 mg capsule 200 mg PO DAILY 04/04/19 [History Confirmed 09/20/22] alprazolam 1 mg tablet 1 mg PO HS 04/04/19 [History Confirmed 09/20/22] cetirizine 10 mg tablet 10 mg PO DAILY 04/04/19 [History Confirmed 09/20/22] ibuprofen 800 mg tablet 800 mg PO Q6H PRN pain #30 tabs 04/04/19 [Rx Confirmed 09/20/22] omeprazole 20 mg capsule,delayed release 20 mg PO DAILY 04/04/19 [History Confirmed 09/20/22] folic acid 1 mg tablet 1 mg PO DAILY 07/14/22 [History Confirmed 09/20/22] multivitamin 1 tab PO DAILY 07/14/22 [History Confirmed 09/20/22] benzonatate 100 mg capsule 100 mg PO TID 07/18/22 [History Confirmed 09/20/22] cholecalciferol (vitamin D3) 25 mcg (1,000 unit) capsule (Vitamin D3) 25 mcg PO DAILY 07/18/22 [History Confirmed 09/20/22] vitamin B12 0.5 mg-folic acid 1 mg tablet 1 tab PO DAILY 07/18/22 [History Confirmed 09/20/22] polysaccharide iron complex 180 mg iron capsule (Pro Fe) 180 mg PO DAILY 90 days#90 caps 09/20/22 [Rx] Objective - Height/Weight Height/Weight: Height 5 ft 6.5 in Weight 54.2 kg - Vital Signs Vital Signs: 09/20/22 11:28 Temperature 98.4 F Pulse Rate [Left Brachial] 86 Respiratory Rate 18 Blood Pressure [Left Arm] 116/64 02 Sat by Pulse Oximetry 100 Oxygen Delivery Method Room Air Physical Exam Narrative: Full exam deferred. Here for follow-up of labs only. See exam below from 07/18/[address] Apodaca GENERAL APPEARANCE: Well developed, well nourished, in no acute distress. Very nervous and stressed initially; come down substantially throughout and definitely toward the end of the interview SKIN: Inspection of the skin reveals no rashes, ulcerations or petechiae. HEENT: The sclerae were anicteric and conjunctivae were pink and moist. EOMI, PERRLA. The oral mucosa is moist and clear. NECK: Supple and symmetric. There was no thyroid enlargement, and no tenderness,or masses were felt. CHEST: Normal contour without any kyphoscoliosis. LUNGS: Normal breath sounds on auscultation without rales, rhonchi, or crackles. CARDIOVASCULAR: S1 and S2, regular rate and rhythm, no murmurs, gallops, rubs. ABDOMEN: Soft, nontender, bowel sounds normal. No hepatosplenomegaly. No mass palpated. LYMPH NODES: No lymphadenopathy was appreciated in the neck, axillae or groin. MUSCULOSKELETAL: Gait was normal. There was no tenderness or effusions noted. Muscle strength and tone were normal. EXTREMITIES: No cyanosis, clubbing or edema. NEUROLOGIC: Alert and oriented x 3. Normal affect. Gait was normal. Sensation totouch was normal. - ECOG Performance Status ECOG Score: 0 Results - Labs Labs: Diagram of Most Recent CBC and CMP 09/13/22 10:15 07/18/2022: Endomysial IgA antibody negative, tissue transglutaminase IgG less than 2, tissue transglutaminase IgA less than 2, cleared then IgG 3, gliadin IgA5, celiac IgA 127 (all negative for celiac disease) 09/13/2022: Serum iron 70, iron saturation 23%, ferritin 62.9 - Impressions No recent imaging for review. Assessment and Plan (1) Iron deficiency anemia This is a 47-year-old female who is most likely source of [...] days and to continue oral iron supplement. Shehad better tolerance of Pro Fe 180 mg [...] or no longer tolerates her Pro Fe. Patient expressed understanding over this 35-minute moderate complexity visit for discussion of her results. (2) Restless leg syndrome Her [facility] physician Dr. Apodaca reported that the patient had symptoms of restless leg syndrome which at times during the interview sounded more like restless body syndrome. She did not have any of these complaints during my visit and has not noted any significant change after her iron infusions. If shehas recurrent symptoms this would be an indication for parenteral iron therapy. (3) Blood donor The patient is a regular blood donor and will have supplemental oral iron and decrease frequency of blood donation given her recent iron deficiency. (4) History of menorrhagia Prior history of menorrhagia but no recurrent symptoms since she underwent endometrial ablation by Dr. Alicia in March 2019. - Time with Patient Time Spent with Patient (Follow Up Visit): 35 minutes - Moderate complexity 35- minute visit to answer multiple questions and explain work-up for celiac disease, as needed follow-up and resuming oral supplemental iron, discussion of elective blood donation frequency Coordination of Care & Counseling Time: Greater than 50% of time spent with patient was for coordination of care (as documented) and [id number] counseling of patient and/or family. Dictated By: Jana Ridley MD DD/ 1152 Signed By: <Electronically signed by MD Jana Ridley> 09/20/22 1641 [facility] Work Phone: 1(137) 631-887012-01-2022 Hospital Discharge instructions Patient Education 08/17/2022 10:54:19 Urethral Stricture Urethral Stricture Urethral stricture is narrowing of the tube (urethra) that carries urine from the bladder out of the body. The urethra can become narrow due to scar tissue from an injury or infection. This can make it difficult to pass urine. In women, the urethra opens above the vaginal opening. In men, the urethra opens at the tip of the penis, and the urethra is much longer than it is in women. Because of the length of the male urethra, urethral stricture is much more common in men. This condition is treated with surgery. What are the causes? In both men and women, common causes of urethral stricture include: Urinary tract infection (UTI). Sexually transmitted infection (STI). Use of a tube placed into the urethra to drain urine from the bladder (urinary catheter). Urinary tract surgery. In men, common causes of urethral stricture include: A severe injury to the pelvis. Prostate surgery. Injury to the penis. In many cases, the cause of urethral stricture is not known. What increases the risk? You are more likely to develop this condition if you: Are male. Men who have had prostate surgery are at risk of developing this condition. Use a urinary catheter. Have had urinary tract surgery. What are the signs or symptoms? The main symptom of this condition is difficulty passing urine. This may cause decreased urine flow, dribbling, or spraying of urine. Other symptom of this condition may include: Frequent UTIs. Blood in the urine. Pain when urinating. Swelling of the penis in men. Inability to pass urine (urinary obstruction). How is this diagnosed? This condition may be diagnosed based on: Your medical history and a physical exam. Urine tests to check for infection or bleeding. X-rays. Ultrasound. Retrograde urethrogram. This is a type of test in which dye is injected into the urethra and then an X-ray is taken. Urethroscopy. This is when a thin tube with a light and camera on the end (urethroscope) is used tolook at the urethra. How is this treated? This condition is treated with surgery. The type of surgery that you have depends on the severity of your condition. You may have: Urethral dilation. In this procedure, the narrow part of the urethra is stretched open (dilated) with dilating instruments or a small balloon. Urethrotomy. In this procedure, a urethroscope is placed into the urethra, and the narrow part of the urethra is cut open with a surgical blade inserted through the urethroscope. Open surgery. In this procedure, an incision is made in the urethra, the narrow part is removed, and the urethra is reconstructed. Follow these instructions at home: Take [id number] and prescription medicines only as told by your health care provider. If you were prescribed an antibiotic medicine, take it as told by your health care provider. Do notstop taking the antibiotic even if you start to feel better. Drink enough fluid to keep your urine pale yellow. Keep all follow-up visits as told by your health care provider. This is important. Contact a health care provider if: You have signs of a urinary tract infection, such as: ?Frequent urination or passing small amounts of urine frequently. ?Needing to urinate urgently. ?Pain or burning with urination. ?Urine that smells bad or unusual. ?Cloudy urine. ?Pain in the lower abdomen or back. ?Trouble urinating. ?Blood in the urine. ?Vomiting or being less hungry than normal. ?Diarrhea or abdominal pain. ?Vaginal discharge, if you are female. Your symptoms are getting worse instead of better. Get help right away if: You cannot pass urine. You have a fever. You have swelling, bruising, or discoloration of your genital area. This includes the penis, scrotum, and inner thighs for men, and the outer genital organs (vulva) and inner thighs for women. You develop swelling in your legs. You have difficulty breathing. Summary Urethral stricture is narrowing of the tube (urethra) that carries urine from the bladder out of the body. The urethra can become narrow due to scar tissue from an injury or infection. This condition can make it difficult to pass urine. This condition is treated with surgery. The type of surgery that you have depends on the severity of your condition. Contact a health care provider if your symptoms get worse or you have signs of a urinary tract infection. This information is not intended to replace advice given to you by your health care provider. Make sure you discuss any questions you have with your health care provider. Document Released: 09/29/2016 Document Revised: 04/16/2019 Document Reviewed: 04/16/2019 [employer] Patient Education 2020 [employer]. Follow Up Care 08/09/2022 12:14:18 With:EJ ELLIS, GIANNA Jimenez, URL Address: [address] [place] [address]. [place] [address] When:6 weeks [facility] 11-01-2022 Consult note Author Kye [facility] July 18, 2022 4:40pm Note Date/Time July 18, 2022 4 :30pm [facility] at [address] [address] Hem/Onc Consult Note - OP Signed Patient: Katy Banuelos MR#: [id number] : 1975 Acct:[id number] Age/Sex: 47 / F Type: REG RCR Copies to: MD Stevan Luna MD-NOMS~ HPI Date/Time of Service: Date of Service: 07/18/2022 Time of Service: 16:27 Referring Provider/PCP: Referring Provider: Stevan Alicia MD-NOMS PCP: Fernanda Concepcion MD - History of Present Illness Reason for Consultation: Low ferritin Chief Complaint: Patient is here today for a referral from Dr Alicia for anemia HPI: 47-year-old white lady seen for evaluation and management of iron deficiency. Although her hemoglobin is within the normal range, but actually it is falsely elevated secondary to her smoking. Patient used to have significant menorrhagiabut underwent endometrial ablation 18 months ago or so. She said that nutritionally she has not been keen on iron containing foods or healthy nutrients in general. Of much more relevamnce she has been on regular blood donor for many years. When asked about symptoms associated with celiac disease she stated that she gets bloating and abdominal discomfort when she eats bread and gluten containing food items. She has a son with established celiac diseaseaccording to her [facility] - Medical History Medical History: Medical History (Last Reviewed 07/18/22 @ 10:53 by Jocelyn Riley) Allergies Anemia Broken foot right 2019 Chicken pox Chronic maxillary sinusitis Hypertension Migraine headache TMJ (dislocation of temporomandibular joint) - Surgical History Surgical History: Surgical History (Last Reviewed 07/18/22 @ 10:53 by Jocelyn Riley) H/O tubal ligation History of dilatation and curettage - Family History Family History: Family History (Last Updated 07/18/22 @ 10:54 by Jocelyn Riley) Father Prostate cancer Hypertension CVA (cerebral vascular accident) Father Bladder cancer Grandparent Leukemia - Social History Smoking Status: Current every day smoker Tobacco Type: cigarettes Substance Use Type: Alcohol Home Medications & Allergies Allergies No Known Allergies Allergy (Verified 07/18/22 10:52) Home Medications acyclovir 200 mg capsule 200 mg PO DAILY 04/04/19 [History Confirmed 07/18/22] alprazolam 1 mg tablet 1 mg PO HS 04/04/19 [History Confirmed 07/18/22] cetirizine 10 mg tablet 10 mg PO DAILY 04/04/19 [History Confirmed 07/18/22] ibuprofen 800 mg tablet 800 mg PO Q6H PRN pain #30 tabs 04/04/19 [Rx Confirmed 07/18/22] omeprazole 20 mg capsule,delayed release 20 mg PO DAILY 04/04/19 [History Confirmed 07/18/22] folic acid 1 mg tablet 1 mg PO DAILY 07/14/22 [History Confirmed 07/18/22] multivitamin 1 tab PO DAILY 07/14/22 [History Confirmed 07/18/22] polysaccharide iron complex 180 mg iron capsule (Pro Fe) 180 mg PO DAILY 07/14/22 [History Confirmed 07/18/22] benzonatate 100 mg capsule 100 mg PO TID 07/18/22 [History Confirmed 07/18/22] cholecalciferol (vitamin D3) 25 mcg (1,000 unit) capsule (Vitamin D3) 25 mcg PO DAILY 07/18/22 [History Confirmed 07/18/22] vitamin B12 0.5 mg-folic acid 1 mg tablet 1 tab PO DAILY 07/18/22 [History Confirmed 07/18/22] Subjective Data Subjective/ROS - Narrative: CONSTITUTIONAL: No weight loss, fever, chills. She does complain of fatigue that she describes as lack of energy which she gets severe at times. She also mentioned loss of muscle mass and associated weakness HEENT: Eyes: No visual loss, blurred vision, double vision or yellow sclerae. Ears, Nose, Throat: No hearing loss, epistaxis. SKIN: No rash or itching. CARDIOVASCULAR: No chest pain, chest pressure or chest discomfort. No palpitations or edema. RESPIRATORY: No shortness of breath, cough or hemoptysis. GASTROINTESTINAL: No dysphagia, nausea, vomiting or diarrhea. No abdominal pain,melena, hematochezia. Increased bloating and abdominal discomfort when she eatsbread GENITOURINARY: No dysuria, urinary frequency or urgency. NEUROLOGICAL: No headache, dizziness, syncope, numbness or tingling in the extremities. MUSCULOSKELETAL: No muscle, back pain, joint pain or stiffness. HEMATOLOGIC: No bleeding or bruising. LYMPHATICS: No enlarged nodes. PSYCHIATRIC: No history of depression . Significant stress and anxiety that comes down toward the end of interview ENDOCRINOLOGIC: No reports of sweating, cold or heat intolerance. No polyuria orpolydipsia. ALLERGIES: No history of asthma, hives, eczema or rhinitis. Objective - Height/Weight Height/Weight: Height 5 ft 6.5 in Weight 52.163 kg - Vital Signs Vital Signs: 07/18/22 11:01 Temperature 97.8 F Pulse Rate [Left Brachial] 87 Respiratory Rate 16 Blood Pressure [Left Arm] 137/87 02 Sat by Pulse Oximetry 98 Oxygen Delivery Method Room Air Physical Exam Narrative: GENERAL APPEARANCE: Well developed, well nourished, in no acute distress. Very nervous and stressed initially; come down substantially throughout and definitely toward the end of the interview SKIN: Inspection of the skin reveals no rashes, ulcerations or petechiae. HEENT: The sclerae were anicteric and conjunctivae were pink and moist. EOMI, PERRLA. The oral mucosa is moist and clear. NECK: Supple and symmetric. There was no thyroid enlargement, and no tenderness,or masses were felt. CHEST: Normal contour without any kyphoscoliosis. LUNGS: Normal breath sounds on auscultation without rales, rhonchi, or crackles. CARDIOVASCULAR: S1 and S2, regular rate and rhythm, no murmurs, gallops, rubs. ABDOMEN: Soft, nontender, bowel sounds normal. No hepatosplenomegaly. No mass palpated. LYMPH NODES: No lymphadenopathy was appreciated in the neck, axillae or groin. MUSCULOSKELETAL: Gait was normal. There was no tenderness or effusions noted. Muscle strength and tone were normal. EXTREMITIES: No cyanosis, clubbing or edema. NEUROLOGIC: Alert and oriented x 3. Normal affect. Gait was normal. Sensation totouch was normal. - ECOG Performance Status ECOG Score: 0 Assessment and Plan (1) Iron deficiency Clearly there is definite iron deficiency as evidenced by very low ferritin at 5. Given her symptoms of fatigue, generalized weakness, and actually her restless leg syndrome which sounds at times like restless body syndrome she would definitely potentially benefit from iron infusions. She has been taking oral iron supplements with GI intolerance including upset stomach and changes ofbowel habits. In addition there is strong suggestion that she has celiac disease or at least gluten sensitivity so unquestionably there is a component ofpoor iron absorption. We will schedule her for 3 Venofer infusions. We will see her in 3 months with a repeat ferritin and TIBC. If no significant improvement of the ferritin will give more infusions accordingly (2) Iron deficiency anemia Although patient's hemoglobin is within normal range but she has been a smoker for many years albeit according to her less than half a pack daily. Definitely this can give false elevation of hemoglobin. This is reflected in her low RBC. Couple this with documented very low ferritin we will schedule her for iron infusions (3) Adult celiac disease Patients have complained strongly suggestive of celiac disease or at least gluten sensitivity. We will check celiac disease panel and. Optimally if positive requires a small bowel biopsy; however she had a recent EGD so no need to repeat another procedure and will go with the results of antibiotics (4) Restless leg syndrome She has symptoms of restless leg syndrome which at times during the interview sounded more like restless body syndrome. I am sure that is related to her increased stress and anxiety. I believe that the component of restless leg to say the least would benefit from the iron infusions as well. - Time with Patient Coordination of Care & Counseling Time: Greater than 50% of time spent with patient was for coordination of care (as documented) and [id number] counseling of patient and/or family. Dictated By: Kye Apodaca MD DD/ 1627 Signed By: <Electronically signed by Kye Apodaca MD> 07/18/22 1640 [facility] Work Phone: 1(147) 339-251911-02-2018 Evaluation note* Diagnosis Onset Date Resolution Status Admit Date Acute maxillary sinusitis, unspecified July 19, 2018 acute July 14, 2024 8:37am Back pain, thoracic acute Octob er 2023 8:37am Bloating acute July 14, 2024 8:37am Insomnia, persistent acute Octo star 2023 8:37am Raynauds disease acute July 14, 2024 8:37am TMJ (dislocation of temporomandibular joint) acute July 14, 2024 8:37am Blood donor chronic July 10:22am History of menorrhagia chronic No vember 2023 10:22am Iron deficiency anemia chronic No 2023 10:22am Acute maxillary sinusitis, unspecified July 19, 2018 acute August 20, 2024 9:48am Back pain, thoracic acute Decem star 2023 9:48am Insomnia, persistent acute Dece mber 2023 9:48am TMJ (dislocation of temporomandibular joint) acute Decembe r 2023 9:48am Arthritis of carpometacarpal (CMC) joint of right thumb acute Sepua ry 2024 8:56am Arthritis of right hand acute J anuary 2024 8:56am De Quervain's tenosynovitis, right acute October 03 8:56am Right wrist pain acute October 03, 2024 8:56am [facility] Work Phone: 1([phone]) 479-326511-02-2018 Evaluation note* Diagnosis Onset Date Resolution Status Admit Date Acute maxillary sinusitis, unspecified July 19, 2018 acute August 20, 2024 9:48am Back pain, thoracic acute Decem star 2023 9:48am Insomnia, persistent acute Dece mber 2023 9:48am TMJ (dislocation of temporomandibular joint) acute Decembe r 2023 9:48am Arthritis of carpometacarpal (CMC) joint of right thumb acute 2024 8:56am Arthritis of right hand acute J anuary 2024 8:56am De Quervain's tenosynovitis, right acute October 03 8:56am Right wrist pain acute October 03, 2024 8:56am [facility] Work Phone: 1([phone]) 314-347911-02-2018 Evaluation note* Diagnosis Onset Date Resolution Status Admit Date Acute maxillary sinusitis, unspecified July 19, 2018 acute August 20, 2024 9:48am Back pain, thoracic acute Decem 2023 9:48am Insomnia, persistent acute Dece mber 2023 9:48am TMJ (dislocation of temporomandibular joint) acute Decembe r 2023 9:48am Arthritis of carpometacarpal (CMC) joint of right thumb acute ry 2024 8:56am Arthritis of right hand acute J anuary 2024 8:56am De Quervain's tenosynovitis, right acute October 03 8:56am Right wrist pain acute October 03, 2024 8:56am Arthritis of carpometacarpal (CMC) joint of right thumb acute Febru jm 2024 9:18am Arthritis of right hand acute F ebruary 2024 9:18am De Quervain's tenosynovitis, right acute November 14, 9:18am Right wrist pain acute November 14, 2024 9:18am [facility] Work Phone: Evaluation + Plan note Future Appointments Appointment Date:11/20/2022 10:30:00 AM Scheduled Provider:Willem HARRIS MD Location:[facility] Appointment Type:URO Office Visit [facility] Evaluation + Plan note Future Appointments Appointment Date:05/02/2023 10:30:00 AM Scheduled Provider:GIANNA KAPLAN PA-C Location:[facility] Appointment Type:URO Procedure 30 min Appointment Date:05/09/2023 09:30:00 AM Scheduled Provider:GIANNA KAPLAN PA-C [facility] Type:[facility] Procedure 30 min Appointment Date:05/16/2023 09:30:00 AM Scheduled Provider:GIANNA KAPLAN PA-C Location:[facility] Appointment Type:URO Procedure 30 min Appointment Date:05/30/2023 09:30:00 AM Scheduled Provider:GIANNA KAPLAN PA-C Location:[facility] Appointment Type:URO Procedure 30 min Appointment Date:06/13/2023 09:30:00 AM Scheduled Provider:GIANNA KAPLAN PA-C Location:[facility] Appointment Type:URO Procedure 30 min [facility] Evaluation + Plan note Future Appointments Appointment Date:05/09/2023 09:30:00 AM Scheduled Provider:GIANNA KAPLAN PA-C Location:[facility] Appointment Type:URO Procedure 30 min Appointment Date:05/16/2023 09:30:00 AM Scheduled Provider:GIANNA KAPLAN PA-C [facility] Appointment Type:URO Procedure 30 min Appointment Date:05/30/2023 09:30:00 AM Scheduled Provider:GIANNA KAPLAN PA-C Location:[facility] Appointment Type:URO Procedure 30 min Appointment Date:06/13/2023 09:30:00 AM Scheduled Provider:GIANNA KAPLAN PA-C [facility] Procedure 30 min [facility] evaluation + Plan note Future Appointments Appointment Date:05/16/2023 09:30:00 AM Scheduled Provider:GIANNA KAPLAN PA-C Location:[facility] Appointment Type:URO Procedure 30 min Appointment Date:05/30/2023 09:30:00 AM Scheduled Provider:GIANNA KAPLAN PA-C Location:[facility] Appointment Type:URO Procedure 30 min Appointment Date:06/13/2023 09:30:00 AM Scheduled Provider:GIANNA KAPLAN PA-C Location:[facility] Appointment Type:URO Procedure 30 min [facility] Evaluation + Plan note Future Appointments Appointment Date:03/14/2024 01:45:00 PM Scheduled Provider:Girma Delgado MD Location[facility] Appointment Type:Cardiology Follow Up (FT) Future Scheduled Tests Laboratory* Sedimentation Rate Automated 01/30/24 * Comprehensive Metabolic Panel 01/30/24 * C-Reactive Protein 01/30/24 * Lipid Panel 01/30/24 Radiology* [facility] Future Appointments Appointment Date:03/14/2024 01:45:00 PM Scheduled Provider:Girma Delgado MD [facility] (FT) [facility]No assessment [facility] available [facility] [facility] Work Phone: evaluation note* Diagnosis Onset Date Resolution Status Adult celiac disease acute Iron deficiency acute Iron deficiency anemia acute Restless leg syndrome acute [facility] Work Phone: evaluation noteNo InformationNort Typeform Other Evaluation note* Diagnosis Right upper quadrant pain- Primary Abdominal pain, right upper quadrant documented in this encounter [facility]* Diagnosis Onset Date Resolution Status Injury of thumb, right acute Arthritis of carpometacarpal (CMC) joint of right thum b acute Arthritis of right hand acut e De Quervain's tenosynovitis, right acute Right hand pain acute Right wrist pain acute [facility] Work Phone: Evaluation note* Diagnosis Onset Date Resolution Status Arthritis of carpometacarpal (CMC) joint of right thum b acute Arthritis of right hand acut e De Quervain's tenosynovitis, right acute Right wrist pain acute Arthritis of carpometacarpal (CMC) joint of right thum b acute Arthritis of right hand acut e De Quervain's tenosynovitis, right acute Right wrist pain acute Arthritis of carpometacarpal (CMC) joint of right thum b acute Arthritis of right hand acut e De Quervain's tenosynovitis, right acute Right wrist pain acute [facility] Work Phone: Evaluation note* Diagnosis Onset Date Resolution Status Arthritis of carpometacarpal (CMC) joint of right thum b acute Arthritis of right hand acut e De Quervain's tenosynovitis, right acute Right wrist pain acute Abdominal pain acute Insomnia, persistent acute Wellness examination acute Arthritis of carpometacarpal (CMC) joint of right thum b acute Arthritis of right hand acut e De Quervain's tenosynovitis, right acute Right wrist pain acute [facility] Work Phone: Evaluation note* Diagnosis Onset Date Resolution Status Abdominal pain acute Insomnia, persistent acute Wellness examination acute Arthritis of carpometacarpal (CMC) joint of right thum b acute Arthritis of right hand acut e De Quervain's tenosynovitis, right acute Right wrist pain acute Arthritis of carpometacarpal (CMC) joint of right thum b acute Arthritis of right hand acut e De Quervain's tenosynovitis, right acute Right wrist pain acute [facility] Work Phone: Evaluation note* Diagnosis Chronic obstructive pulmonary disease, unspecified COPD type (CMS/HCC)- Primary Cigarette smoker Tobacco use disorder [facility] this [facility]* Diagnosis Amenorrhea- Primary Absence of menstruation Encounter for screening mammogram for malignant neoplasm of breast Screening for malignant neoplasm of cervix Screening for malignant neoplasm of the cervix Encounter for gynecological examination without abnormal finding History of endometrial ablation Hx of ovarian cyst Vaginal discharge Leukorrhea, not specified as infective Thyroid disorder screening Screening for thyroid disorder documented in this encounter [facility]* Diagnosis Chronic vulvitis- Primary Unspecified vaginitis and vulvovaginitis documented in this encounter [facility]* Diagnosis Onset Date Resolution Status Arthritis of carpometacarpal (CMC) joint of right thum b acute Arthritis of right hand acut e De Quervain's tenosynovitis, right acute Right wrist pain acute Arthritis of carpometacarpal (CMC) joint of right thum b acute Arthritis of right hand acut e De Quervain's tenosynovitis, right acute Right wrist pain acute Back pain, thoracic acute Bloating acute Raynauds disease acute [facility] Work Phone: Evaluation note* Diagnosis Mood swings Other specified episodic mood disorder Vaginal itching Pruritus of genital organs Vaginal discharge Leukorrhea, not specified as infective Cysts of both ovaries Other and unspecified ovarian cyst Abnormal CBC Other abnormal blood chemistry Iron deficiency anemia, unspecified iron deficiency anemia type Insomnia, unspecified type documented in this encounter [facility]* Diagnosis Encounter for gynecological examination without abnormal finding- Primary Encounter for screening for cervical cancer Cysts of both ovaries Other and unspecified ovarian cyst History of endometrial ablation Amenorrhea Absence of menstruation Asymptomatic menopausal state Anemia, unspecified type Other iron deficiency anemia Abnormal TSH Mood swings Other specified episodic mood disorder Chronic vulvitis Unspecified vaginitis and vulvovaginitis HSV (herpes simplex virus) infection Herpes simplex without mention of complication Myoma documented in this encounter [facility]* Diagnosis Paresthesias- Primary Disturbance of skin sensation Joint disease, temporomandibular Unspecified temporomandibular joint disorders Neck pain Cervicalgia Foot pain, bilateral Abnormal MRI, cervical spine Bilateral occipital neuralgia documented in this encounter [facility]* Diagnosis Pain and swelling of toe of left foot- Primary Muscle strain of left foot, initial encounter documented in this encounter [facility]* Diagnosis Chronic obstructive pulmonary disease, unspecified COPD type (CMS/HCC)- Primary Cigarette smoker Tobacco use disorder documented in this encounter [facility] general Narrative - Reported* Type Description Date Medical History TMJ arthralgia Medical History Insomnia, persistent Medical History Anxiety Medical History Viremia Medical History Anemia Medical History Muscle spasm of shoulder region Medical History Abnormal weight loss Medical History Elevated MCV Medical History Back pain, thoracic Medical History Dysuria-frequency syndrome Medical History Vitamin D deficiency Medical History External hemorrhoid Medical History HTN (hypertension) Medical History Gastroesophageal ref lux disease with esophagitis without hemorrhage Medical History Acute pain of right foot Surgical History BTL 2009 Surgical History HYSTEROSCOPY, ABLATION Hospitalization History SEE [facility] [place] Other History general Narrative - Reported* Type Description Date Medical History TMJ arthralgia Medical History Insomnia, persistent Medical History Anxiety Medical History Anemia Medical History Muscle spasm of shoulder region Medical History Abnormal weight loss Medical History Elevated MCV Medical History Back pain, thoracic Medical History Dysuria-frequency syndrome Medical History Vitamin D deficiency Medical History External hemorrhoid Medical History HTN (hypertension) Medical History Gastroesophageal ref lux disease with esophagitis without hemorrhage Medical History Acute pain of right foot Surgical History BTL 2009 Surgical History HYSTEROSCOPY, ABLATION Hospitalization History SEE SURGICAL [place] Other History general Narrative - Reported* Type Description Date Medical History TMJ arthralgia Medical History Insomnia, persistent Medical History Anxiety Medical History Anemia Medical History Muscle spasm of shoulder region Medical History Abnormal weight loss Medical History Elevated MCV Medical History Back pain, thoracic Medical History Dysuria-frequency syndrome Medical History Vitamin D deficiency Medical History External hemorrhoid Medical History HTN (hypertension) Medical History Gastroesophageal ref lux disease with esophagitis without hemorrhage Medical History Acute pain of right foot Medical History COPD Surgical History BTL 2009 Surgical History HYSTEROSCOPY, ABLATION Hospitalization History SEE SURGICAL HX [place] Other Hospital course Narrative No data available for this section [facility] Discharge instructions No data available for this section [facility] progress note No data available for this section [facility] Progress note Author Jana Ridley [facility] September 20, 2022 4:41pm Note Date/Time September 20, 2022 11 :53am [facility] at [address] [address] Hem/Onc Follow Up Note - OP Signed Patient: Katy Banuelos MR#: [id number] : 1975 Acct:[id number] Age/Sex: 47 / F Type: REG RCR Copies to: MD Stevan Luna MD-[facility]~ Subjective Date/Time of Service: Date of Service: 09/20/2022 Time of Service: 11:52 Chief Complaint: Patient is here for a 2 month follow up, with labs for review. No concerns voiced at this time. HPI: 09/20/2022: Katy is here for follow-up and lab review after receiving 3 infusions of [id number] mg IV 07/25 through 08/04/2022. She does note improved fatigue since her last visit. She notes that she has been a blood donor for the past 30 years donating about once every 56 days. She previously was on iron supplementation with Pro Fe (polysaccharide iron complex) 180 mg daily which she tolerated well. Her primary care had switched her to a different iron formulation which she didnot tolerate well. During her initial evaluation with Dr. Apodaca, he felt that she may have had malabsorption due to a family history of celiac disease as wellas symptoms of bloating and abdominal discomfort with eating bread and gluten containing food items. The patient does note that after receiving her parenteral iron that she had her follow-up lab test last week and then scheduledherself for blood donation the following day with hemoglobin 13.3. She is concerned that she may have recurrent iron deficiency with ongoing blood donation. -- In addition the patient reports that she had menorrhagia until about 2 years ago. She underwent an endometrial ablation by Dr. Alicia at that time and noted that her last period was about 1-1/2 years ago. No other sites of GI blood loss. -- Laboratories ordered by Dr. Apodaca to evaluate for celiac disease on 2returned with normal gliadin and tissue transglutaminase as well as endomysial antibodies. I reassured her that there is unlikely to be malabsorption contributing to her iron deficiency. We discussed decreasing the frequency of her blood donation to every other cycle (over 100 days) and she may resume her Pro Fe iron supplementation every other day (or daily if well-tolerated). She may return for reevaluation by hematology for parenteral iron on an as-needed basis. This is a moderate complexity 35-minute follow-up to review history in more detail (initial evaluation by smita catalan) and to discuss the results of her celiac disease work-up. INITIAL CONSULT with smita Apodaca 07/18/2022: 47-year-old white lady seen for evaluation and management of iron deficiency. Although her hemoglobin is within the normal range, but actually it is falsely elevated secondary to her smoking. Patient used to have significant menorrhagiabut underwent endometrial ablation 18 months ago or so. She said that nutritionally she has not been keen on iron containing foods or healthy nutrients in general. Of much more relevance she has been on regular blood donor for manyyears. When asked about symptoms associated with celiac disease she stated thatshe gets bloating and abdominal discomfort when she eats bread and gluten containing food items. She has a son with established celiac disease according to her - Summary of Therapies Summary of Therapies: 1. 3 infusions of Venofer 300 mg IV 07/25 through 08/04/2022 2. 09/20/2022: Negative work-up for celiac disease. Resuming oral Pro Fe 180 mg daily ROS Details: All systems reviewed & no additional complaints except as documented Subjective/ROS - Narrative: CONSTITUTIONAL: Negative for fatigue (improved since last visit), negative for fever or night sweats. HEAD AND NECK: Negative for changes in hearing and vision. Negative for mouth ulcers, nasal congestion and nasal drainage. PULMONARY: Negative for chest pain, cough and dyspnea. CARDIOVASCULAR: Negative for claudication and irregular heartbeat/palpitations. GASTROINTESTINAL: Negative for abdominal pain, constipation, decreased appetite,diarrhea, nausea or vomiting. No recent weight change. GENITOURINARY: Negative for dysuria and hematuria. LMP 1 1/2 years ago (prior endometrial ablation for menorrhagia 2 year ago). ENDOCRINE: Negative for cold intolerance and heat intolerance. CENTRAL NERVOUS SYSTEM: Negative for gait disturbance and headache. PSYCHIATRIC: Negative for anxiety or depression. DERMATOLOGICAL: Negative for pruritus and rash. Negative for suspicious skin lesions. MUSCULOSKELETAL: Negative for back pain and bone/joint symptoms. HEMATOLOGICAL: Negative for bleeding and easy bruising. Negative for history of transfusion or thromboembolic disease ALLERGY: Negative for environmental allergies and food allergies. PMFSH - History Attestation statement: The following information was validated with the patient. Source: Old Records Reviewed - Medical History Medical History: Medical History (Last Reviewed 09/20/22 @ 16:32 by Jana Ridley MD) Allergies Anemia Broken foot right 2019 Chicken pox Chronic maxillary sinusitis Hypertension Migraine headache TMJ (dislocation of temporomandibular joint) - Surgical History Surgical History: Surgical History (Last Reviewed 09/20/22 @ 16:32 by Jana Ridley MD) H/O tubal ligation History of dilatation and curettage - Family History Family History: Family History (Last Reviewed 09/20/22 @ 16:32 by Jana Ridley MD) Father Prostate cancer Hypertension CVA (cerebral vascular accident) Father Bladder cancer Grandparent Leukemia - Social History Smoking Status: Current every day smoker Tobacco Type: cigarettes Substance Use Type: Alcohol Home Medications & Allergies Allergies No Known Allergies Allergy (Verified 09/20/22 11:27) Home Medications acyclovir 200 mg capsule 200 mg PO DAILY 04/04/19 [History Confirmed 09/20/22] alprazolam 1 mg tablet 1 mg PO HS 04/04/19 [History Confirmed 09/20/22] cetirizine 10 mg tablet 10 mg PO DAILY 04/04/19 [History Confirmed 09/20/22] ibuprofen 800 mg tablet 800 mg PO Q6H PRN pain #30 tabs 04/04/19 [Rx Confirmed 09/20/22] omeprazole 20 mg capsule,delayed release 20 mg PO DAILY 04/04/19 [History Confirmed 09/20/22] folic acid 1 mg tablet 1 mg PO DAILY 07/14/22 [History Confirmed 09/20/22] multivitamin 1 tab PO DAILY 07/14/22 [History Confirmed 09/20/22] benzonatate 100 mg capsule 100 mg PO TID 07/18/22 [History Confirmed 09/20/22] cholecalciferol (vitamin D3) 25 mcg (1,000 unit) capsule (Vitamin D3) 25 mcg PO DAILY 07/18/22 [History Confirmed 09/20/22] vitamin B12 0.5 mg-folic acid 1 mg tablet 1 tab PO DAILY 07/18/22 [History Confirmed 09/20/22] polysaccharide iron complex 180 mg iron capsule (Pro Fe) 180 mg PO DAILY 90 days#90 caps 09/20/22 [Rx] Objective - Height/Weight Height/Weight: Height 5 ft 6.5 in Weight 54.2 kg - Vital Signs Vital Signs: 09/20/22 11:28 Temperature 98.4 F Pulse Rate [Left Brachial] 86 Respiratory Rate 18 Blood Pressure [Left Arm] 116/64 02 Sat by Pulse Oximetry 100 Oxygen Delivery Method Room Air Physical Exam Narrative: Full exam deferred. Here for follow-up of labs only. See exam below from 07/18/[address] Apodaca GENERAL APPEARANCE: Well developed, well nourished, in no acute distress. Very nervous and stressed initially; come down substantially throughout and definitely toward the end of the interview SKIN: Inspection of the skin reveals no rashes, ulcerations or petechiae. HEENT: The sclerae were anicteric and conjunctivae were pink and moist. EOMI, PERRLA. The oral mucosa is moist and clear. NECK: Supple and symmetric. There was no thyroid enlargement, and no tenderness,or masses were felt. CHEST: Normal contour without any kyphoscoliosis. LUNGS: Normal breath sounds on auscultation without rales, rhonchi, or crackles. CARDIOVASCULAR: S1 and S2, regular rate and rhythm, no murmurs, gallops, rubs. ABDOMEN: Soft, nontender, bowel sounds normal. No hepatosplenomegaly. No mass palpated. LYMPH NODES: No lymphadenopathy was appreciated in the neck, axillae or groin. MUSCULOSKELETAL: Gait was normal. There was no tenderness or effusions noted. Muscle strength and tone were normal. EXTREMITIES: No cyanosis, clubbing or edema. NEUROLOGIC: Alert and oriented x 3. Normal affect. Gait was normal. Sensation totouch was normal. - ECOG Performance Status ECOG Score: 0 Results - Labs Labs: Diagram of Most Recent CBC and CMP 09/13/22 10:15 07/18/2022: Endomysial IgA antibody negative, tissue transglutaminase IgG less than 2, tissue transglutaminase IgA less than 2, cleared then IgG 3, gliadin IgA5, celiac IgA 127 (all negative for celiac disease) 09/13/2022: Serum iron 70, iron saturation 23%, ferritin 62.9 - Impressions No recent imaging for review. Assessment and Plan (1) Iron deficiency anemia This is a 47-year-old female who is most likely source of [...] days and to continue oral iron supplement. Shehad better tolerance of Pro Fe 180 mg [...] or no longer tolerates her Pro Fe. Patient expressed understanding over this 35-minute moderate complexity visit for discussion of her results. (2) Restless leg syndrome Her [facility] physician Dr. Apodaca reported that the patient had symptoms of restless leg syndrome which at times during the interview sounded more like restless body syndrome. She did not have any of these complaints during my visit and has not noted any significant change after her iron infusions. If shehas recurrent symptoms this would be an indication for parenteral iron therapy. (3) Blood donor The patient is a regular blood donor and will have supplemental oral iron and decrease frequency of blood donation given her recent iron deficiency. (4) History of menorrhagia Prior history of menorrhagia but no recurrent symptoms since she underwent endometrial ablation by Dr. Alicia in March 2019. - Time with Patient Time Spent with Patient (Follow Up Visit): 35 minutes - Moderate complexity 35- minute visit to answer multiple questions and explain work-up for celiac disease, as needed follow-up and resuming oral supplemental iron, discussion of elective blood donation frequency Coordination of Care & Counseling Time: Greater than 50% of time spent with patient was for coordination of care (as documented) and [id number] counseling of patient and/or family. Dictated By: Jana Ridley MD DD/ [id number] Signed By: <Electronically signed by MD Jana Ridley> 09/20/22 1641 [facility] Work Phone: Progress note Author Jeanette Jimenes [facility] Note Date/Time February 06, 2025 9:45a m [facility] [place] [address] Cancer Center Note Signed Patient: Katy Banuelos MR#: [id number] : 1975 Acct:[id number] Age/Sex: 50 / F Type: DEP AMB Date of Service: 02/06/25 Copies to: Fernanda Concepcion MD~ Assessment & Plan A/P (1) Iron deficiency anemia: Plan: 09/20/2022: This is a 47-year-old female who is most likely source of [...] does wish to continue elective blood donation Irecommend changing to about once every 100 days [...] from primary care for parenteral iron on anas-needed basis if she is refractory to oral iron or no longer tolerates her ProFe. 08/04/2024: She reports that she has not [...] her oral supplementation but will rule out.. (2) Blood donor: Plan: 09/20/2022: The patient is a regular blood donor and will have supplemental oral iron and decrease frequency of blood donation given her recent iron deficiency. 08/04/2024: Blood donations scheduled every 56 days, informed to reduce donationwhen fatigued. 02/08/2025 She is not regularly giving blood anymore secondary to fatigue. Could medically continue giving blood less frequently than before but she is feeling very poorly and fatigued. Would recommend holding off blood donation until she has addressed fatigue with PCP. (3) History of menorrhagia: Plan: 09/20/2022; 08/04/2024: Prior history of menorrhagia but no recurrent symptoms since she underwent endometrial ablation by Dr. Alicia in March 2019. Patient Instructions: Will recheck CBC, CMP, Iron profile, folate, B 12, reticulocyte count in 6 months 1 week prior to 6 month visit with IND[employer]IOLOGIST. CHEMO PLAN Treatment Plan Iron Sucrose (Venofer) Clinical Indication No Indication Cycle Number Last Admin 1 of 1 Completed Cycle Day Next Admin No Active Chemotherapy History of Present Illness HPI 02/06/2025 She reports she is feeling very fatigued. She reports getting broken sleep. She sleeps about 6 hours a night at most. She has a hard time falling asleep. She drinks 5-6 cups of coffee a day. She does not have periods anymore since ablation. She reports that she had a colonoscopy and EGD and pill camera last summer. She is feeling irritable and cranky. She denies any bleeding and is not longer giving blood. 08/04/2024: Katy is ambulatory to the clinic alone. She has not received parental iron since 2021. She states she donates blood every 56 days. Her last blood donation was 05/22/2024. She states she feels more fatigue since the donation. She continues to take her oral iron and eats healthy food to help maintain iron supplementation. She states she was tested for celiac disease thissummer and the results came back negative. She had a EGD/colonoscopy and had a polyp removed. She was also found to have internal hemorrhoids. She also had a capsule study, negative. She had labs on 07/03/2024.The Hgb was 10.1, no iron profile or ferritin done at that time. She reports intermittent vasomotor symptoms from perimenopause. Denies fever, chills, or night sweats. Denies restless legs or pica. Denies CP or palpitations. She reports chronic loose stools, then intermittent constipation from the iron supplement. Denies hematochezia. Reports RUE neuropathy, currently being worked up for this. She reports she does not sleep because she drinks coffee up until 800pm because she is trying to stay awake. 09/20/2022: Katy is here for follow-up and lab review after receiving 3 infusions of Venofer 300 mg IV 07/25 through 08/04/2022. She does note improved fatigue since her last visit. She notes that she has been a blood donor for the past 30years donating about once every 56 days. She previously was on iron supplementation with Pro Fe (polysaccharide iron complex) 180 mg daily which shetolerated well. Her primary care had switched her to a different iron formulation which she did not tolerate well. During her initial evaluation withDr. Apodaca, he felt that she may have had malabsorption due to a family history of celiac disease as well as symptoms of bloating and abdominal discomfort with eating bread and gluten containing food items. The patient does note that afterreceiving her parenteral iron that she had her follow-up lab test last week and then scheduled herself for blood donation the following day with hemoglobin 13.3. She is concerned that she may have recurrent iron deficiency with ongoingblood donation. -- In addition the patient reports that she had menorrhagia until about 2 years ago. She underwent an endometrial ablation by Dr. Alicia at that time and noted that her last period was about 1-1/2 years ago. No other sites of GI blood loss. -- Laboratories ordered by Dr. Apodaca to evaluate for celiac disease on 2returned with normal gliadin and tissue transglutaminase as well as endomysial antibodies. I reassured her that there is unlikely to be malabsorption contributing to her iron deficiency. We discussed decreasing the frequency of her blood donation to every other cycle (over 100 days) and she may resume her Pro Fe iron supplementation every other day (or daily if well-tolerated). She may return for reevaluation by hematology for parenteral iron on an as-needed basis. This is a moderate complexity 35-minute follow-up to review history in more detail (initial evaluation by smita catalan) and to discuss the results of her celiac disease work-up. INITIAL CONSULT with smita Apodaca 07/18/2022: 47-year-old white lady seen for evaluation and management of iron deficiency. Although her hemoglobin is within the normal range, but actually it is falsely elevated secondary to her smoking. Patient used to have significant menorrhagiabut underwent endometrial ablation 18 months ago or so. She said that nutritionally she has not been keen on iron containing foods or healthy nutrients in general. Of much more relevance she has been on regular blood donor for many years. When asked about symptoms associated with celiac disease she stated that she gets bloating and abdominal discomfort when she eats bread and gluten containing food items. She has a son with established celiac diseaseaccording to her Summary of Therapies Summary of Therapies: 1. 3 infusions of Venofer 300 mg IV 07/25 through 08/04/2022 2. 09/20/2022: Negative work-up for celiac disease. Resuming oral Pro Fe 180 mg daily Intake Vitals/Pain Assessment 02/06/25 09:04 Height 5 ft 6 in Weight 55.338 kg BMI 19.7 Body Fat % 29.54 BP 117/77 Blood Pressure Location Lt brachial Position Sitting Temp 97.8 F Temp Source Temporal Pulse 77 Pulse Source NIBP Respiration 16 Pulse Oximetry (%) 98 Oxygen Delivery Method room air Intake Visit Reasons: Follow Up 6 Months, follow up visit Accompanied by: Self Allergies No Known Allergies Allergy (Verified 02/06/25 09:01) Home Medications - Last Reconciled 02/06/25 by LILLIAN Haynes acyclovir 400 mg PO alprazolam 1 mg PO BID PRN 30 days cetirizine (Zyrtec) 10 mg PO DAILY PRN cholecalciferol (vitamin D3) (Vitamin D3) 25 mcg PO DAILY diclofenac sodium 1% (Voltaren Arthritis Pain) 1-2 grams topically twice daily 30 days folic acid 1 mg PO DAILY ibuprofen TAKE 1 TABLET BY MOUTH EVERY 8 HOURS NEEDED FOR PAIN omeprazole 40 mg PO ONCE 30 days polysaccharide iron complex (Pro Fe) 180 mg PO DAILY 90 days prazosin TAKE 1 CAPSULE BY MOUTH IN THE EVENING PRN; pyridoxine (vitamin B6) 25 mg PO TID tiotropium bromide (Spiriva with HandiHaler) 1 cap inhalation DAILY tramadol 50 mg PO BID PRN 30 days vitamin G80-mhuma acid 0.5-1 mg 1 tab PO DAILY Gastrointestinal Is the patient taking opioids for pain control?: No [place] Precaution Measures Taken: Patient in chair Nurse's Note: Patient is here today for a follow up visit and go over labs [facility] Medical History Medical History Raynauds disease Chronic obstructive pulmonary disease Insomnia, persistent External hemorrhoid Chronic pain Cervical spondylosis Back pain, thoracic Anxiety Allergic rhinitis, unspecified Acute pharyngitis, unspecified Acute maxillary sinusitis, unspecified (07/19/18) Abnormal weight loss Broken foot right 2019 Chicken pox TMJ (dislocation of temporomandibular joint) Hypertension Migraine headache Allergies Surgical History Surgical History History of hysteroscopy H/O tubal ligation History of dilatation and curettage Family History Family History Father Prostate cancer Hypertension Stroke Bladder cancer Grandparent Leukemia Social History Social History Smoking status: Current every day smoker Within the past year, how often did you have a drink containing alcohol: never AUDIT-C Alcohol total score: 0 AUDIT-C Alcohol score interpretation: A score less than 3 is consistent with normal alcohol consumption. In the past 12 months, have you used illegal drugs or prescription drugs for non-medical reasons?: No Physical Exam EXAM GENERAL APPEARANCE: Well developed, well nourished, in no acute distress. SKIN: Inspection of the skin reveals no rashes, ulcerations or petechiae. HEENT: The sclerae were anicteric and conjunctivae were pink and moist. EOMI, PERRLA. The oral mucosa is moist and clear. LUNGS: Normal breath sounds on auscultation without rales, rhonchi, or crackles. CARDIOVASCULAR: S1 and S2, regular rate and rhythm, no murmurs, gallops, rubs. ABDOMEN: Soft, nontender, bowel sounds normal. No hepatosplenomegaly. No mass palpated. LYMPH NODES: No lymphadenopathy was appreciated in the neck, axillae or groin. MUSCULOSKELETAL: Gait was normal. There was no tenderness or effusions noted. Muscle strength and tone were normal. EXTREMITIES: No cyanosis, clubbing or edema. NEUROLOGIC: Alert and oriented x 3. Normal affect. Gait was normal. [facility] - [facility] LAB RESULTS Corrected WBC 7.2 X10E3/uL (3.8-11.6) 01/27/25 11: 5 Hgb 14.4 g/dL (11.8-15.4) 01/27/25 11:01/27/25 Hct 41.5 % (34.0-46.4) 01/27/25 11:01/27/25 MCV 101.2 fl (80-100) H 01/27/25 11:01/27/25 RDW 13.2 % (11.9-15.3) 01/27/25 11:01/27/25 Plt Count 234 x10E3/uL (150-450) 01/27/25 11:01/27/25 Iron 151 ug/dL (50-212) 01/27/25 11:55 01/27/25 Iron Saturation 46.7 % (20-50) 01/27/25 11:55 01/27/25 Ferritin 30.5 ng/mL (11.0-306.8) 01/27/25 11:55 5 Dictated By: JIL Mary DD/ [id number] Signed By: <Electronically signed by JIL Jimenes> 02/06/25 0948 [facility] Work Phone: Reason for referral (narrative)* Consultation (Routine) - Pending Review Specialty Diagnoses / Procedures Referred By Mc ambrosio Referred To Contact Gastroenterology Diagnoses Right upper quadrant pain Procedures MS OFFICE/OUTPATIENT [facility] 60 MINUTES Dio Lara DO [address] [facility] [address] [place] [address] Alverto Salinas MD [address] [facility] [address] [place] [address] Referral ID Status Reason Start Date Expiration Date Visits Requested Visits Authorized [id number] Pending Review Specialty Services Required 10/26/2023 04/23/2024 1 1 RINA Garcia for referral (narrative)No reason for referral information availableHock[facility] Work Phone: Chief Complaint and Reason for Visit Chief Complaint R63.4 R10.84 Chief Complaint Anemia Reason for Visit Adult celiac disease Iron deficiency Iron deficiency anemia Restless leg syndrome Chief Complaint M54.2 Chief Complaint M54.2 t14.8xxa r63.4 r05.3 Chief Complaint t14.8xxa r63.4 r05.3 Pelvic Floor r07.9 r07.9 Chief Complaint r07.9 r07.9 Pelvic Floor r10.11 Chief Complaint r07.9 r07.9 Pelvic Floor r10.11 m89.9 r91.8 Chief Complaint r07.9 r07.9 Pelvic Floor r10.11 m79.641 m89.9 r91.8 J44.9;R05 Chief Complaint Ref Edmundo Neck Head Pa in r07.9 r07.9 Stomach Issues Pelvic Floor r10.11 m79.641 m89.9 r91.8 J44.9;R05 R94.6 E55.9 R63.4 Chief Complaint r07.9 r07.9 Stomach Issues Pelvic Floor r10.11 m79.641 m89.9 r91.8 J44.9;R05 R94.6 E55.9 R63.4 R10.11 k82.8 Chief Complaint J44.9;R05 R94.6 E55.9 R63.4 R10.11 k82.8 Amb Documentation Recheck Right Hand Pain CONSULT DR MITCHELL POSSIBLE LOOSE BODY RT THUMB Reason for Visit Injury of thumb, rig ht Arthritis of carpometacarpal (CMC) joint of right thumb Arthritis of right hand De Quervain's tenosynovitis, right Right hand pain Right wrist pain Chief Complaint J44.9;R05 R94.6 E55.9 R63.4 R10.11 k82.8 Amb Documentation Recheck Right Hand Pain CONSULT DR MITCHELL POSSIBLE LOOSE BODY RT THUMB medication check up Reason for Visit Injury of thumb, rig ht Arthritis of carpometacarpal (CMC) joint of right thumb Arthritis of right hand De Quervain's tenosynovitis, right Right hand pain Right wrist pain Chief Complaint R94.6 E55.9 R63.4 R10.11 k82.8 Amb Documentation Recheck Right Hand Pain CONSULT DR MITCHELL POSSIBLE LOOSE BODY RT THUMB medication check up ruq pain/ref itzkowitz R thumb- dynamic & static splint R14.0 R10.9 Reason for Visit Injury of thumb, rig ht Arthritis of carpometacarpal (CMC) joint of right thumb Arthritis of right hand De Quervain's tenosynovitis, right Right hand pain Right wrist pain Insomnia, persistent TMJ (dislocation of temporomandibular joint) Chief Complaint R10.11 k82.8 Amb Documentation Recheck Right Hand Pain CONSULT DR STEPHEN ÁLVAREZ LOOSE BODY RT THUMB medication check up ruq pain/ref itzkowitz R14.0 R10.9 R thumb- dynamic & static splint 4 WEEK RECHECK Reason for Visit Injury of thumb, rig ht Arthritis of carpometacarpal (CMC) joint of right thumb Arthritis of right hand De Quervain's tenosynovitis, right Right hand pain Right wrist pain Insomnia, persistent TMJ (dislocation of temporomandibular joint) Arthritis of carpometacarpal (CMC) joint of right thumb Arthritis of right hand De Quervain's tenosynovitis, right Right wrist pain Chief Complaint Amb Documentation Recheck Right Hand Pain CONSULT DR MITCHELL POSSIBLE LOOSE BODY RT THUMB medication check up ruq pain/ref itzkowitz R14.0 R10.9 4 WEEK RECHECK R thumb- dynamic & static splint Reason for Visit Injury of thumb, rig ht Arthritis of carpometacarpal (CMC) joint of right thumb Arthritis of right hand De Quervain's tenosynovitis, right Right hand pain Right wrist pain Insomnia, persistent TMJ (dislocation of temporomandibular joint) Arthritis of carpometacarpal (CMC) joint of right thumb Arthritis of right hand De Quervain's tenosynovitis, right Right wrist pain Chief Complaint Amb Documentation Recheck Right Hand Pain CONSULT DR MITCHELL POSSIBLE LOOSE BODY RT THUMB medication check up ruq pain/ref itzkowitz R14.0 R10.9 4 WEEK RECHECK R thumb- dynamic & static splint 4-6 WEEKS Reason for Visit Injury of thumb, rig ht Arthritis of carpometacarpal (CMC) joint of right thumb Arthritis of right hand De Quervain's tenosynovitis, right Right hand pain Right wrist pain Insomnia, persistent TMJ (dislocation of temporomandibular joint) Arthritis of carpometacarpal (CMC) joint of right thumb Arthritis of right hand De Quervain's tenosynovitis, right Right wrist pain Arthritis of carpometacarpal (CMC) joint of right thumb Arthritis of right hand De Quervain's tenosynovitis, right Right wrist pain Chief Complaint ruq pain/ref itzkowi tz R14.0 R10.9 4 WEEK RECHECK R thumb- dynamic & static splint 4-6 WEEKS iron def anemia/ruq pain/bloating iron def anemia/ruq pain/bloating Amb Documentation iron def anemia due to chronic blood loss Reason for Visit Arthritis of carpome tacarpal (CMC) joint of right thumb Arthritis of right hand De Quervain's tenosynovitis, right Right wrist pain Arthritis of carpometacarpal (CMC) joint of right thumb Arthritis of right hand De Quervain's tenosynovitis, right Right wrist pain Chief Complaint ruq pain/ref maryanne tz R14.0 R10.9 4 WEEK RECHECK R thumb- dynamic & static splint 4-6 WEEKS iron def anemia/ruq pain/bloating iron def anemia/ruq pain/bloating Amb Documentation iron def anemia due to chronic blood loss 4-6 WEEK RECHECK Reason for Visit Arthritis of carpome tacarpal (CMC) joint of right thumb Arthritis of right hand De Quervain's tenosynovitis, right Right wrist pain Arthritis of carpometacarpal (CMC) joint of right thumb Arthritis of right hand De Quervain's tenosynovitis, right Right wrist pain Arthritis of carpometacarpal (CMC) joint of right thumb Arthritis of right hand De Quervain's tenosynovitis, right Right wrist pain Chief Complaint 4 WEEK RECHECK R thumb- dynamic & static splint 4-6 WEEKS iron def anemia/ruq pain/bloating iron def anemia/ruq pain/bloating Amb Documentation iron def anemia due to chronic blood loss 4-6 WEEK RECHECK Wellness Reason for Visit Arthritis of carpome tacarpal (CMC) joint of right thumb Arthritis of right hand De Quervain's tenosynovitis, right Right wrist pain Arthritis of carpometacarpal (CMC) joint of right thumb Arthritis of right hand De Quervain's tenosynovitis, right Right wrist pain Arthritis of carpometacarpal (CMC) joint of right thumb Arthritis of right hand De Quervain's tenosynovitis, right Right wrist pain Chief Complaint iron def anemia/ruq pain/bloating iron def anemia/ruq pain/bloating Amb Documentation iron def anemia due to chronic blood loss 4-6 WEEK RECHECK Wellness 8 WEEKS Reason for Visit Arthritis of carpome tacarpal (CMC) joint of right thumb Arthritis of right hand De Quervain's tenosynovitis, right Right wrist pain Abdominal pain Insomnia, persistent Wellness examination Arthritis of carpometacarpal (CMC) joint of right thumb Arthritis of right hand De Quervain's tenosynovitis, right Right wrist pain Chief Complaint Wellness 8 WEEKS Apryl & Abelardo only/Back pain, spasms 6 WEEKS Reason for Visit Abdominal pain Insomnia, persistent Wellness examination Arthritis of carpometacarpal (CMC) joint of right thumb Arthritis of right hand De Quervain's tenosynovitis, right Right wrist pain Arthritis of carpometacarpal (CMC) joint of right thumb Arthritis of right hand De Quervain's tenosynovitis, right Right wrist pain Chief Complaint 8 WEEKS 6 WEEKS Apryl only/Back pain, spasms Check Up Reason for Visit Arthritis of carpome tacarpal (CMC) joint of right thumb Arthritis of right hand De Quervain's tenosynovitis, right Right wrist pain Arthritis of carpometacarpal (CMC) joint of right thumb Arthritis of right hand De Quervain's tenosynovitis, right Right wrist pain Back pain, thoracic Bloating Raynauds disease Chief Complaint 8 WEEKS 6 WEEKS Check Up Apryl only/Back pain, spasms m54.6 r14.0 i73.00 Reason for Visit Arthritis of carpome tacarpal (CMC) joint of right thumb Arthritis of right hand De Quervain's tenosynovitis, right Right wrist pain Arthritis of carpometacarpal (CMC) joint of right thumb Arthritis of right hand De Quervain's tenosynovitis, right Right wrist pain Back pain, thoracic Bloating Raynauds disease Chief Complaint Admit Date 8 WEEKS May 13, 2024 7: 55am 6 WEEKS June 25, 2024 7: 52am Check Up July 14, 2024 8 :37am Apryl only/Back pain, spasms July 162023 11:00am m54.6 r14.0 i73.00 July 22, 2024 1 2:33pm NEW - Iron deficiency, Anemia July 182023 10:22am Iron deficiency, anemia August 04, 024 10:25am Reason for Visit Admit Date Arthritis of carpometacarpal (CMC) joint of right thumb May 13, 2024 7:55am Arthritis of right hand May 13 7:55am De Quervain's tenosynovitis, right Augus t 27th, 2024 7:55am Right wrist pain May 13, 2024 7: 55am Arthritis of carpometacarpal (CMC) joint of right thumb June 25, 2024 7:52am Arthritis of right hand June 25 7:52am De Quervain's tenosynovitis, right Octob er 2023 7:52am Right wrist pain June 25, 2024 7: 52am Acute maxillary sinusitis, unspecified O ctober 2023 8:37am Back pain, thoracic July 14, 2024 8 :37am Bloating July 14, 2024 8 :37am Insomnia, persistent July 14, 2024 8:37am Raynauds disease July 14, 2024 8 :37am TMJ (dislocation of temporomandibular tsering int) July 14, 2024 8:37am Blood donor August 04, 2024 10:22am History of menorrhagia August 04 10:22am Iron deficiency anemia August 04 10:22am Restless leg syndrome August 04 10:22am Chief Complaint Admit Date Check Up July 14, 2024 8 :37am Apryl only/Back pain, spasms July 162023 11:00am m54.6 r14.0 i73.00 July 22, 2024 1 2:33pm NEW - Iron deficiency, Anemia July 182023 10:22am Sinus infection August 20, 2024 9 :48am Iron deficiency, anemia August 20 12:53pm OP SP RT HAND PAIN October 03, 2024 8 :56am Reason for Visit Admit Date Acute maxillary sinusitis, unspecified O ctober 2023 8:37am Back pain, thoracic July 14, 2024 8 :37am Bloating July 14, 2024 8 :37am Insomnia, persistent July 14, 2024 8:37am Raynauds disease July 14, 2024 8 :37am TMJ (dislocation of temporomandibular tsering int) July 14, 2024 8:37am Blood donor August 04, 2024 10:22am History of menorrhagia August 04 10:22am Iron deficiency anemia August 04 10:22am Acute maxillary sinusitis, unspecified D ecember 2023 9:48am Back pain, thoracic August 20, 2024 9 :48am Insomnia, persistent August 20, 2024 9:48am TMJ (dislocation of temporomandibular tsering int) August 20, 2024 9:48am Arthritis of carpometacarpal (CMC) joint of right thumb October 03, 2024 8:56am Arthritis of right hand October 03 8:56am De Quervain's tenosynovitis, right Janua ry 2024 8:56am Right wrist pain October 03, 2024 8 :56am Chief Complaint Admit Date Sinus infection August 20, 2024 9 :48am OP SP RT HAND PAIN October 03, 2024 8 :56am Iron deficiency, anemia October 14 9:31am Q15.9 H57.10 November 05, 2024 4:09pm Reason for Visit Admit Date Acute maxillary sinusitis, unspecified D ecember 2023 9:48am Back pain, thoracic August 20, 2024 9 :48am Insomnia, persistent August 20, 2024 9:48am TMJ (dislocation of temporomandibular tsering int) August 20, 2024 9:48am Arthritis of carpometacarpal (CMC) joint of right thumb October 03, 2024 8:56am Arthritis of right hand October 03 8:56am De Quervain's tenosynovitis, right Janua 2024 8:56am Right wrist pain October 03, 2024 8 :56am Chief Complaint Admit Date Sinus infection August 20, 2024 9 :48am OP SP RT HAND PAIN October 03, 2024 8 :56am Iron deficiency, anemia October 14 9:31am Q15.9 H57.10 November 05, 2024 4:09pm 4-6 WEEKS November 14, 2024 9:18am Reason for Visit Admit Date Acute maxillary sinusitis, unspecified D ecember 2023 9:48am Back pain, thoracic August 20, 2024 9 :48am Insomnia, persistent August 20, 2024 9:48am TMJ (dislocation of temporomandibular tsering int) August 20, 2024 9:48am Arthritis of carpometacarpal (CMC) joint of right thumb October 03, 2024 8:56am Arthritis of right hand October 03 8:56am De Quervain's tenosynovitis, right Janua ry 2024 8:56am Right wrist pain October 03, 2024 8 :56am Arthritis of carpometacarpal (CMC) joint of right thumb November 14, 2024 9:18am Arthritis of right hand November 14 025 9:18am De Quervain's tenosynovitis, right Febru [email or web address] 9:18am Right wrist pain November 14, 2024 9:18am Chief Complaint Admit Date OP SP RT HAND PAIN October 03, 2024 8 :56am Iron deficiency, anemia October 14 9:31am Q15.9 H57.10 November 05, 2024 4:09pm 4-6 WEEKS November 14, 2024 9:18am refills December 11, 2024 10: 01am Reason for Visit Admit Date Arthritis of carpometacarpal (CMC) joint of right thumb October 03, 2024 8:56am Arthritis of right hand October 03 8:56am De Quervain's tenosynovitis, right Janua 2024 8:56am Right wrist pain October 03, 2024 8 :56am Arthritis of carpometacarpal (CMC) joint of right thumb November 14, 2024 9:18am Arthritis of right hand November 14 025 9:18am De Quervain's tenosynovitis, right Febru [email or web address] 9:18am Right wrist pain November 14, 2024 9:18am Chief Complaint Admit Date OP SP RT HAND PAIN October 03, 2024 8 :56am Iron deficiency, anemia October 14 9:31am Q15.9 H57.10 November 05, 2024 4:09pm 4-6 WEEKS November 14, 2024 9:18am refills December 11, 2024 10: 01am 6 WEEKS December 26, 2024 9:4 0am Reason for Visit Admit Date Arthritis of carpometacarpal (CMC) joint of right thumb October 03, 2024 8:56am Arthritis of right hand October 03 8:56am De Quervain's tenosynovitis, right Janua ry 2024 8:56am Right wrist pain October 03, 2024 8 :56am Arthritis of carpometacarpal (CMC) joint of right thumb November 14, 2024 9:18am Arthritis of right hand November 14 025 9:18am De Quervain's tenosynovitis, right Febru 2024 9:18am Right wrist pain November 14, 2024 9:18am Back pain, thoracic December 11, 2024 10: [...] pain, left December 26, 2024 9:4 0am Chief Complaint Admit Date Q15.9 H57.10 November 05, 2024 4:09pm 4-6 WEEKS November 14, 2024 9:18am refills December 11, 2024 10: 01am 6 WEEKS December 26, 2024 9:4 0am J44.9 January 27, 2025 11:48 am Iron deficiency, anemia January 27, 2025 1 1:52am Reason for Visit Admit Date Arthritis of carpometacarpal (CMC) joint of right thumb November 14, 2024 9:18am Arthritis of right hand November 14 025 9:18am De Quervain's tenosynovitis, right Febru 2024 9:18am Right wrist pain November 14, 2024 9:18am Back pain, thoracic December 11, 2024 10: [...] pain, left December 26, 2024 9:4 0am Chief Complaint Admit Date refills December 11, 2024 10: 01am 6 WEEKS December 26, 2024 9:4 0am J44.9 January 27, 2025 11:48 am Follow Up 6 Months February 06, 2025 8:56a m Reason for Visit Admit Date Back pain, [...] deficiency anemia February 06, 2025 8: 56am Chief Complaint Admit Date refills December 11, [...] pain February 25, 2025 7:59 am Myalgia February 25, 2025 7:59 am Chief Complaint Admit Date 6 WEEKS December 26, 2024 9:4 0am J44.9 January 27, 2025 11:48 am Follow Up 6 Months February 06, 2025 8:56a m Pain in thoracic spine-OTHER CHRONIC BRANDO N February 25, 2025 7:59am EMG BUE per AG March 02, 2025 8:26 am belly botton concern March 03, 2025 11: 29am Reason for Visit Admit Date Arthritis of carpometacarpal (CMC) joint of right [...] pain February 25, 2025 7:59 am Myalgia February 25, 2025 7:59 am Other skin changes March 03, 2025 11:2 9am Chief Complaint Admit Date 6 WEEKS December 26, 2024 9:4 0am J44.9 January 27, 2025 11:48 am Follow Up 6 Months February 06, 2025 8:56a m Pain in thoracic spine-OTHER CHRONIC BRANDO N February 25, 2025 7:59am EMG BUE per AG March 02, 2025 8:26 am belly botton concern March 03, 2025 11: 29am TRIGGER POINT INJECTIONS March 23, 2025 10:08am Reason for Visit Admit Date Arthritis of carpometacarpal (CMC) joint of right [...] pain February 25, 2025 7:59 am Myalgia February 25, 2025 7:59 am Other skin changes March 03, 2025 11:2 9am Allodynia March 18, 2025 9:29a m Degenerative disc disease, cervical March 18, 2025 9:29am Insomnia March 18, 2025 9:29a m Migraine headache without aura March 18, 2025 9:29am Myalgia March 18, 2025 9:29a m Neck pain March 18, 2025 9:29a m Paresthesia March 18, 2025 9:29a m Back pain, thoracic March 23, 2025 10:08 am Chronic pain March 23, 2025 10:08 am Myalgia March 23, 2025 10:08 am Chief Complaint Admit Date J44.9 January 27, 2025 11:48 am Follow Up 6 Months February 06, 2025 8:56a m Pain in thoracic spine-OTHER CHRONIC BRANDO N February 25, 2025 7:59am EMG BUE per AG March 02, 2025 8:26 am belly botton concern March 03, 2025 11: 29am TRIGGER POINT INJECTIONS March 23, 2025 10:08am 12 weeks March 27, 2025 9:41 am Reason for Visit Admit Date Blood donor February 06, 2025 8:56a m History of menorrhagia February 06, 2025 8: 56am Iron deficiency anemia February 06, 2025 8: 56am Back pain, thoracic February 25, 2025 7:59 am Chronic pain February 25, 2025 7:59 am Myalgia February 25, 2025 7:59 am Other skin changes March 03, 2025 11:2 9am Allodynia March 18, 2025 9:29a m Degenerative disc disease, cervical March 18, 2025 9:29am Insomnia March 18, 2025 9:29a m Migraine headache without aura March 18, 2025 9:29am Myalgia March 18, 2025 9:29a m Neck pain March 18, 2025 9:29a m Paresthesia March 18, 2025 9:29a m Back pain, thoracic March 23, 2025 10:08 am Chronic pain March 23, 2025 10:08 am Myalgia March 23, 2025 10:08 am Arthritis of carpometacarpal (CMC) joint of right thumb March 27, 2025 9:41am Arthritis of right hand March 27, 2025 9:41am De Quervain's tenosynovitis, right March 27, 2025 9:41am Right wrist pain March 27, 2025 9:41 am Toe pain, left March 27, 2025 9:41 am Chief Complaint Admit Date J44.9 January 27, 2025 11:48 am Follow Up 6 Months February 06, 2025 8:56a m Pain in thoracic spine-OTHER CHRONIC BRANDO N February 25, 2025 7:59am EMG BUE per AG March 02, 2025 8:26 am belly botton concern March 03, 2025 11: 29am TRIGGER POINT INJECTIONS March 23, 2025 10:08am 12 weeks March 27, 2025 9:41 am wellness April 02, 2025 8:24 am Reason for Visit Admit Date Blood donor February 06, 2025 8:56a m History of menorrhagia February 06, 2025 8: 56am Iron deficiency anemia February 06, 2025 8: 56am Back pain, thoracic February 25, 2025 7:59 am Chronic pain February 25, 2025 7:59 am Myalgia February 25, 2025 7:59 am Other skin changes March 03, 2025 11:2 9am Allodynia March 18, 2025 9:29a m Degenerative disc disease, cervical March 18, 2025 9:29am Insomnia March 18, 2025 9:29a m Migraine headache without aura March 18, 2025 9:29am Myalgia March 18, 2025 9:29a m Neck pain March 18, 2025 9:29a m Paresthesia March 18, 2025 9:29a m Back pain, thoracic March 23, 2025 10:08 am Chronic pain March 23, 2025 10:08 am Myalgia March 23, 2025 10:08 am Arthritis of carpometacarpal (CMC) joint of right thumb March 27, 2025 9:41am Arthritis of right hand March 27, 2025 9:41am De Quervain's tenosynovitis, right March 27, 2025 9:41am Right wrist pain March 27, 2025 9:41 am Toe pain, left March 27, 2025 9:41 am Right foot pain April 02, 2025 8:24 am Family History Relationship Condition Age at Onset Recorded Date/T lisa father Hypertension Unknown Cerebrovascular accident (CVA) Unknown Malignant neoplasm of prostate Unknown Relationship Condition Age at Onset Recorded Date/T lisa father Malignant neoplasm of prostate Unknown Hypertension Unknown Cerebrovascular accident (CVA) Unknown father Malignant neoplasm of urinary bladder Unk nown grandparent Leukemia Unknown Relationship Condition Age at Onset Recorded Date/T lisa father Malignant neoplasm of prostate Unknown Hypertension Unknown Cerebrovascular accident (CVA) Unknown father Malignant neoplasm of urinary bladder Unk nown grandparent Leukemia Unknown father History of stroke Unknown Unknown Relationship Condition Age at Onset Recorded Date/T lisa father Malignant neoplasm of prostate Unknown Hypertension Unknown Cerebrovascular accident (CVA) Unknown Malignant neoplasm of urinary bladder Unk nown Unknown grandparent Leukemia Unknown Advance Directives Advance Directive Response Recorded Date/ Time Advance Directives No July 1:17pm Advance Directive Response Recorded Date/ Time Advance Directives No July 12:17pm Advance Directive Response Recorded Date/ Time Advance Directives No August 18, 2024 10:00am Advance Directive Response Recorded Date/ Time Advance Directives No August 18, 2024 11:00am Summary Purpose Reason for Referral Reason *09/26 last OV, GBUS, bone scan scanned Diagnosis 1 Adenomyosis, gallbla dder (K82.8) Referral Organization [facility] TalkSessionvaibhav Referring Provider First Name Fernanda Referring Provider Last Name Jamey Referring Provider Specialty [facility] ONE Change Referred Organization [facility] Referred Provider Dio Lara Referred Address ,[place], [place],[address] Referred Provider Specialty Surgery Referral Priority Routine General Notes AntoniokameronDonal desaiya 04:49:56 PM >received today, multiple attachments made, notes locked, referral faxed Reason *06/07 TSH 0.35 , unexplained weight loss. Diagnosis 1 Low TSH level (R79.8 9) Referral Organization [facility] Covario jenna Referring Provider First Name Fernanda Referring Provider Last Name Jamey Referring Provider Specialty [facility] ONE Change Referred Organization [employer] Referred Provider Candelario Johansen Referred Address [address] [place] [address] [address],[place], [place] Referred Provider Specialty Internal Med icine Referral Priority Routine General Notes Teri Gray 01:47:35 PM >received today, attachments made, notes locked referral faxed Additional Source Comments Care Teams (unrecognized sec tion and content) Team Status: Active Member Role Status Dates Fernanda Concepcion MD Primary Care Provider Active Team Status: Inactive Member Role Status Dates Fernanda Concepcion MD Primary Care Provider Active Start: December 25, 2023 End: December 25, 2023 Spencer Valadez MD Attending Provider Active Start: December 25, 2023 End: December 25, 2023 Team Status: Inactive Member Role Status Dates Fernanda Concepcion MD Primary Care Provider Active Start: December 28, 2023 End: December 28, 2023 Spencer Valadez MD Attending Provider Active Start: December 28, 2023 End: December 28, 2023 Team Status: Inactive Member Role Status Dates Fernanda Concepcion MD Primary Care Provider Active Start: January 08, 2024 End: January 08, 2024 Destiny Rodriguez MD Attending Provider Active Start: January 08, 2024 End: January 08, 2024 Team Status: Inactive Member Role Status Dates Fernanda Concepcion MD Primary Care Provider Active Start: January 29, 2024 End: January 29, 2024 Destiny Rodriguez MD Attending Provider Active Start: January 29, 2024 End: January 29, 2024 Team Status: Inactive Member Role Status Chung Concepcion MD Primary Care Provider Active Start: February 12, 2024 End: February 12, 2024 Destiny Rodriguez MD Attending Provider Active Start: February 12, 2024 End: February 12, 2024 Team Status: Inactive Member Role Status Chung Concepcion MD Primary Care Provider Active Start: March 04, 2024 End: March 04, 2024 Spencer Valadez MD Attending Provider Active Start: March 04, 2024 End: March 04, 2024 Team Status: Active Member Role Status Chung Concepcion MD Primary Care Provider Active Start: March 04, 2024 Spencer Valadez MD Attending Provider, Other Provider Act christopher Start: March 04, 2024 Team Status: Active Member Role Status Dates Fernanda Concepcion MD Primary Care Provider Active Start: March 05, 2024 Lise Edwards Attending Provider Active Start: March 05, 2024 Team Status: Inactive Member Role Status Chung Concepcion MD Primary Care Provider Active Start: March 17, 2024 End: March 17, 2024 Spencer Valadez MD Attending Provider Active Start: March 17, 2024 End: March 17, 2024 Team Status: Active Member Role Status Chung Concepcion MD Primary Care Provider Active Start: November 16, 2023 ANGY Strong Attending Provider Active Start : November 16, 2023 Team Status: Inactive Member Role Status Chung Concepcion MD Primary Care Provider Active Start: November 22, 2023 End: November 22, 2023 Prashant Mitchell DO Attending Provider Active St art: November 22, 2023 End: November 22, 2023 Team Status: Inactive Member Role Status Chung Concepcion MD Primary Care Provider Active Start: December 04, 2023 End: December 04, 2023 Destiny Rodriguez MD Attending Provider Active Start: December 04, 2023 End: December 04, 2023 Team Status: Inactive Member Role Status Chung Concepcion MD Primary Care Provide r, Attending Provider Active Start: December 10, 2023 End: December 10, 2023 Team Status: Inactive Member Role Status Dates Fernanda Concepcion MD Primary Care Provider Active Candice Palencia APRN Attending Provider Active Team Status: Inactive Member Role Status Dates PHYSICIAN NO FAMILY Primary Care Provider Active Dio Lara DO Attending Provider Active Team Status: Active Member Role Status Dates PHYSICIAN NO FAMILY Primary Care Provider Active Team Status: Active Member Role Status Dates Kye Apodaca MD Attending Provider Active Stevan Alicia MD Referring Provider Active Fernanda Concepcion MD Primary Care Provider Active Team Status: Inactive Member Role Status Dates Fernanda Concepcion MD Primary Care Provider, Attending Jas berkowitz Active Team Status: Inactive Member Role Status Dates Fernanda Concepcion MD Primary Care Provider Active Marta Hernandez DO Attending Provider Active Team Status: Active Member Role Status Dates Fernanda Concepcion MD Primary Care Provider Active Gianna Kaplan PA-C Attending Provider Active Team Status: Inactive Member Role Status Dates Fernanda Concepcion MD Primary Care Provider Active Prashant Mitchell DO Attending Provider Active Team Status: Inactive Member Role Status Dates Stefan Mcdonough MD Attending Provider Active Sta rt: July 18, 2023 End: July 18, 2023 Team Status: Inactive Member Role Status Dates Fernanda Concepcion MD Primary Care Provider Active Start: August 01, 2023 End: August 01, 2023 Marta Hernandez DO Attending Provider Active Sta rt: August 01, 2023 End: August 01, 2023 Team Status: Inactive Member Role Status Dates Fernanda Concepcion MD Primary Care Provider Active Start: August 06, 2023 End: August 06, 2023 Marta Hernandez DO Attending Provider Active Sta rt: August 06, 2023 End: August 06, 2023 Team Status: Inactive Member Role Status Dates Fernanda Concepcion MD Attending Provider Active St art: August 20, 2023 End: August 20, 2023 Team Status: Active Member Role Status Dates Fernanda Concepcion MD Primary Care Provider Active Start: August 27, 2023 Gianna Kaplan PA-C Attending Provider Active Start: August 27, 2023 Team Status: Inactive Member Role Status Dates Fernanda Concepcion MD Primary Care Provide r, Attending Provider Active Start: August 31, 2023 End: August 31, 2023 Team Status: Active Member Role Status Dates Provider Conversion Attending Provider Active St art: September 04, 2023 Team Status: Inactive Member Role Status Dates Fernanda Concepcion MD Primary Care Provider Active Start: September 04, 2023 End: September 04, 2023 Prashant Mitchell DO Attending Provider Active St art: September 04, 2023 End: September 04, 2023 Team Status: Inactive Member Role Status Dates Fernanda Concepcion MD Primary Care Provider Active Start: September 05, 2023 End: September 05, 2023 Marta Hernandez DO Attending Provider Active Sta rt: September 05, 2023 End: September 05, 2023 Team Status: Inactive Member Role Status Dates Fernanda Concepcion MD Primary Care Provider Active Start: September 14, 2023 End: September 14, 2023 Marta Hernandez DO Attending Provider Active Sta rt: September 14, 2023 End: September 14, 2023 Team Status: Inactive Member Role Status Dates Fernanda Concepcion MD Primary Care Provider Active Start: October 08, 2023 End: October 08, 2023 Candelario Johansen MD Attending Provider Active Sta rt: October 08, 2023 End: October 08, 2023 Team Status: Inactive Member Role Status Dates Fernanda Concepcion MD Primary Care Provider Active Start: August 27, 2023 End: August 27, 2023 Gianna Kaplan PA-C Attending Provider Active Start: August 27, 2023 End: August 27, 2023 Team Status: Active Member Role Status Dates Fernanda Concepcion MD Primary Care Provider Active Start: October 23, 2023 Dio Lara DO Attending Provider Active Start: October 23, 2023 Team Status: Inactive Member Role Status Dates Fernanda Concepcion MD Primary Care Provider Active Start: October 23, 2023 End: October 23, 2023 Dio Lara DO Attending Provider Active Start: October 23, 2023 End: October 23, 2023 Camp Tender Relationship Specialty Start Date End Date Fernanda Concepcion MD [address] [facility] [place] [id number] PCP - General Family Medicine 07/16/23 Team Status: Active Member Role Status Dates Fernanda Concepcion MD Primary Care Provider Active Start: December 27, 2023 Destiny Rodriguez MD Attending Provider Active Start: December 27, 2023 Team Status: Active Member Role Status Dates Fernanda Concepcion MD Primary Care Provider Active Start: January 07, 2024 Destiny Rodriguez MD Attending Provider Active Start: January 07, 2024 Team Status: Inactive Member Role Status Dates Fernanda Concepcion MD Primary Care Provider Active Start: March 18, 2024 End: March 18, 2024 Destiny Rodriguez MD Attending Provider Active Start: March 18, 2024 End: March 18, 2024 Team Status: Inactive Member Role Status Dates Fernanda Concepcion MD Primary Care Provide r, Attending Provider Active Start: April 01, 2024 End: April 01, 2024 Team Status: Inactive Member Role Status Dates Fernanda Concepcion MD Primary Care Provider Active Start: May 13, 2024 End: May 13, 2024 Destiny Rodriguez MD Attending Provider Active Start: May 13, 2024 End: May 13, 2024 Team Status: Active Member Role Status Dates Fernanda Concepcion MD Primary Care Provide r, Attending Provider Active Start: June 24, 2024 Team Status: Inactive Member Role Status Dates Fernanda Concepcion MD Primary Care Provider Active Start: June 25, 2024 End: June 25, 2024 Desitny Rodriguez MD Attending Provider Active Start: June 25, 2024 End: June 25, 2024 Camp Tender Relationship Specialty Start Date End Date Fernanda Concepcion MD [address] [place] [address] PCP - General Family Medicine 07/16/23 Camp Tender Relationship Specialty Start Date End Date Fernanda Concepcion MD [address] [place] [address] PCP - General Family Medicine 07/16/23 Camp Tender Relationship Specialty Start Date End Date Fernanda Concepcion MD [address] [place] [id number] PCP - General Family Medicine 07/16/23 Camp Tender Relationship Specialty Start Date End Date Fernanda Concepcion MD [address] [facility] [place] [address] PCP - General Family Medicine 07/16/23 Team Status: Active Member Role Status Dates Fernanda Concepcion MD Primary Care Provide r, Attending Provider Active Start: July 10, 2024 Team Status: Inactive Member Role Status Dates Fernanda Concepcion MD Primary Care Provide r, Attending Provider Active Start: July 14, 2024 End: July 14, 2024 Camp Tender Relationship Specialty Start Date End Date Fernanda Concepcion MD [address] [facility] [place] [phone] PCP - [facility] Family Medicine 07/16/23 Camp Tender Relationship Specialty Start Date End Date Fernanda Concepcion MD [address] [facility] [place] [phone] PCP - [facility] Medicine 07/16/23 Team Status: Active Member Role Status Dates Fernanda Concepcion MD Primary Care Provide r, Attending Provider Active Start: July 16, 2024 Team Status: Inactive Member Role Status Dates Fernanda Concepcion MD Primary Care Provide r, Attending Provider Active Start: July 22, 2024 End: July 22, 2024 Team Status: Inactive Member Role Status Dates Fernanda Concepcion MD Primary Care Provider Active Start: August 04, 2024 End: August 04, 2024 Ute Griffin APRN Attending Provider Active Start: August 04, 2024 End: August 04, 2024 Stevan Alicia MD Referring Provider Active St art: August 04, 2024 End: August 04, 2024 Team Status: Active Member Role Status Dates Fernanda Concepcion MD Primary Care Provider Active Start: August 04, 2024 Ute Griffin APRN Attending Provider Active Start: August 04, 2024 Stevan Alicia MD Referring Provider Active St art: August 04, 2024 Team Status: Inactive Member Role Status Dates Fernanda Concepcion MD Primary Care Provide r, Attending Provider Active Start: July 16, 2024 End: July 16, 2024 Team Status: Inactive Member Role Status Chung Concepcion MD Primary Care Provide r, Attending Provider Active Start: August 20, 2024 End: August 20, 2024 Team Status: Active Member Role Status Dates Fernanda Concepcion MD Primary Care Provider Active Start: August 20, 2024 Ute Griffin APRN Attending Provider Active Start: August 20, 2024 Stevan Alicia MD Referring Provider Active St art: August 20, 2024 Team Status: Inactive Member Role Status Chung Concepcion MD Primary Care Provider Active Start: October 03, 2024 End: October 03, 2024 Destiny Rodriguez MD Attending Provider Active Start: October 03, 2024 End: October 03, 2024 Team Status: Active Member Role Status Dates Fernanda Concepcion MD Primary Care Provider Active Start: October 14, 2024 Ute Griffin APRN Attending Provider Active Start: October 14, 2024 Stevan Alicia MD Referring Provider Active St art: October 14, 2024 Team Status: Inactive Member Role Status Chung Concepcion MD Primary Care Provide r, Attending Provider Active Start: November 05, 2024 End: November 05, 2024 Team Status: Active Member Role Status Chung Concepcion MD Primary Care Provide r, Attending Provider Active Start: November 10, 2024 Team Status: Inactive Member Role Status Chung Concepcion MD Primary Care Provider Active Start: November 14, 2024 End: November 14, 2024 Destiny Rodriguez MD Attending Provider Active Start: November 14, 2024 End: November 14, 2024 Team Status: Inactive Member Role Status Chung Concepcion MD Primary Care Provide r, Attending Provider Active Start: December 11, 2024 End: December 11, 2024 Team Status: Inactive Member Role Status Chung Concepcion MD Primary Care Provider Active Start: December 26, 2024 End: December 26, 2024 Destiny Rodriguez MD Attending Provider Active Start: December 26, 2024 End: December 26, 2024 Camp Tender Relationship Specialty Start Date End Date Fernanda Concepcion MD [address] [facility] [place] [phone] PCP - General Family Medicine 07/16/23 Camp Tender Relationship Specialty Start Date End Date Fernanda Concepcion MD [address] [facility] [place] [address] PCP - General Family Medicine 07/16/23 Camp Tender Relationship Specialty Start Date End Date Fernanda Concepcion MD [address] [facility] [place] [address] PCP - General Family Medicine 07/16/23 Camp Tender Relationship Specialty Start Date End Date Fernanda Concepcion MD [address] [facility] [place] [address] PCP - General Family Medicine 07/16/23 Team Status: Inactive Member Role Status Dates Fernanda Concepcion MD Primary Care Provider Active Start: January 27, 2025 End: January 27, 2025 Marta Hernandez DO Attending Provider Active Sta rt: January 27, 2025 End: January 27, 2025 Team Status: Active Member Role Status Dates Fernanda Concepcion MD Primary Care Provider Active Start: January 27, 2025 Ute Griffin APRN Attending Provider Active Start: January 27, 2025 Stevan Alicia MD Referring Provider Active St art: January 27, 2025 Camp Tender Relationship Specialty Start Date End Date Fernanda Concepcion MD [address] [facility] [place] [address] PCP - General Family Medicine 07/16/23 Camp Tender Relationship Specialty Start Date End Date Fernanda Concepcion MD [address] [facility] [place] [address] PCP - General Family Medicine 07/16/23 Team Status: Inactive Member Role Status Dates Fernanda Concepcion MD Primary Care Provider Active Start: February 06, 2025 End: February 06, 2025 JIL Mary Attending Provider Active Start: February 06, 2025 End: February 06, 2025 Stevan Alicia MD Referring Provider Active St art: February 06, 2025 Team Status: Inactive Member Role Status Dates Fernanda Concepcion MD Primary Care Provide r, Referring Provider Active Start: February 25, 2025 End: February 25, 2025 Tad Zapata MD Attending Provider Active Sta rt: February 25, 2025 End: February 25, 2025 Team Status: Inactive Member Role Status Dates Fernanda Concepcion MD Primary Care Provider Active Start: February 25, 2025 End: February 25, 2025 Fernanda Concepcion MD Referring Provider Active St art: February 25, 2025 End: February 25, 2025 Tad Zapata MD Attending Provider Active Sta rt: February 25, 2025 End: February 25, 2025 Team Status: Inactive Member Role Status Dates Fernanda Concepcion MD Primary Care Provider Active Start: March 02, 2025 End: March 02, 2025 Cathryn Lambert DO Attending Provider Active Sta rt: March 02, 2025 End: March 02, 2025 Team Status: Inactive Member Role Status Dates Fernanda Concepcion MD Primary Care Provider Active Start: March 03, 2025 End: March 03, 2025 Fernanda Concepcion MD Attending Provider Active St art: March 03, 2025 End: March 03, 2025 Team Status: Active Member Role Status Dates Fernanda Concepcion MD Primary Care Provider Active Start: March 10, 2025 Fernanda Concepcion MD Attending Provider Active St art: March 10, 2025 Team Status: Inactive Member Role Status Dates Fernanda Concepcion MD Primary Care Provider Active Start: March 18, 2025 End: March 18, 2025 Cathryn Lambert DO Attending Provider Active Sta rt: March 18, 2025 End: March 18, 2025 Team Status: Inactive Member Role Status Dates Fernanda Concepcion MD Primary Care Provider Active Start: March 23, 2025 End: March 23, 2025 Tad Zapata MD Attending Provider Active Sta rt: March 23, 2025 End: March 23, 2025 Team Status: Inactive Member Role Status Dates Fernanda Concepcion MD Primary Care Provider Active Start: March 27, 2025 End: March 27, 2025 Destiny Rodriguez MD Attending Provider Active Start: March 27, 2025 End: March 27, 2025 Team Status: Inactive Member Role Status Dates Fernanda Concepcion MD Primary Care Provider Active Start: April 02, 2025 End: April 02, 2025 Fernanda Concepcion MD Attending Provider Active St art: April 02, 2025 End: April 02, 2025 Goals (unrecognized section and content) Goals may be documented in a n alternate sectionGoals may be documented in an alternate section No data available for this sectionGoals may be documented in an alternate sectionNo InformationNo InformationNo Information No data available for this sectionNo InformationNo InformationNo InformationNo InformationGoals may be documented in an alternate sectionNo Information No data available for this section No data available for this section No data available for this sectionNo InformationNo Information No data available for this sectionGoals may be documented in an alternate sectionNo InformationNo InformationNo InformationNo InformationNo InformationGoals may be documented in an alternate sectionNo InformationNo InformationGoals may be documented in an alternate sectionNo InformationGoals may be documented in an alternate sectionGoals may be documented in an alternate sectionNo InformationNo InformationGoals may be documented in an alternate sectionGoals may be documented in an alternate sectionGoals may be documented in an alternate sectionGoals may be documented in an alternate sectionGoals may be documented in an alternate sectionGoals may be documented in an alternate sectionGoals may be documented in an alternate sectionGoals may be documented in an alternate section No data available for this section No data available for this sectionGoals may be documented in an alternate sectionGoals may be documented in an alternate section No data available for this section No data available for this section No data available for this sectionGoals may be documented in an alternate sectionGoals may be documented in an alternate sectionGoals may be documented in an alternate sectionGoals may be documented in an alternate sectionGoals may be documented in an alternate sectionGoals may be documented in an alternate sectionGoals may be documented in an alternate sectionGoals may be documented in an alternate sectionGoals may be documented in an alternate sectionGoals may be documented in an alternate section INFORMATION SOURCE (unrecogn ized section and content) DATE CREATED AUTHOR 06/19/2022 [facility] dical Specialist DATE CREATED AUTHOR AUTHOR'S ORGANIZ ATION 12/31/2022 [facility] DATE CREATED AUTHOR AUTHOR'S ORGANIZ ATION 11/30/2023 [facility] DATE CREATED AUTHOR AUTHOR'S ORGANIZ ATION 02/08/2024 [facility] DATE CREATED AUTHOR AUTHOR'S ORGANIZ ATION 02/09/2024 [facility] DATE CREATED AUTHOR AUTHOR'S ORGANIZ ATION 03/16/2024 [facility] DATE CREATED AUTHOR AUTHOR'S ORGANIZ ATION 02/12/[address] [facility] DATE CREATED AUTHOR AUTHOR'S ORGANIZ ATION 02/13/2025 [facility] dical Specialists EPIC REASON FOR VISIT (unrecogniz ed section and content) Reason Comments HIDA scan results Reason Comments COPD 6 month follow up Reason Comments Gynecologic Exam Reason Comments Televisit Reason Comments Repeat pap Patient present for repap. Patient denies any issues or complaints at this time. Reason Comments Temporomandibular Joint Pain Neck Pain Reason Comments COPD 6 month follow up wi th chest x-ray FOR RECORDS PERTAINING TO PATIENTS WHO ARE OR HAVE BEEN ENROLLED IN A CHEMICAL DEPENDENCY/SUBSTANCEABUSE PROGRAM, SOME INFORMATION MAY BE OMITTED. This clinical summary was aggregated from multiple sources. Caution should be exercised in using it in the provision of clinical care. This summary normalizes information from multiple sources, and as a consequence, information in this document may materially change the coding, format and clinical context of patient data. In addition, data may be omitted in some cases. CLINICAL DECISIONS SHOULD BE BASED ON THE PRIMARY CLINICAL RECORDS. [facility] [employer] provides no warranty or guarantee of the accuracy or completeness of information in this document.
== END 2025-04-02 09:11 | disposition home or self-care (01) ==
LOC: RAD 09:11
PROVIDERS: PCP Family Medicine; Visit Provider Family Medicine
DX: M79.671 Pain in right foot (principal)
CPT/HCPCS: 73630

== ENCOUNTER 2025-06-27 06:17 | Emergency (ER) | payer OTHER, SELFPAY ==
--- OUTSIDE RECORDS SUMMARY | 2015-02-09 09:26 | XMS_ITS | Continuity of Care Document ---
Author Organization [facility] Address [address] [place] [address] Phone Care Team Providers Care Entertainment Production Professional Name Role Phone Rubén Janell FLYNN Unavailable Unavaila ble Allergies, Adverse Reactions, Alerts Substance Reaction Status Criticality No Known allergies Medications Medication Instructions Dosage Effective Dates (start - stop) Status Comments acyclovir 200 mg capsule take 1 capsule (200MG) by oral route daily - Active Ortho-Cyclen (28) 0.25 mg-35 mcg tablet take 1 tablet by oral route every day - Active acyclovir 200 mg Cap take 1 capsule (200MG) by oral route daily - No Longer Active Procedures Procedure Date OFFICE/OUTPATIENT VISIT, EST OFFICE/OUTPATIENT VISIT, EST Orthocyclen Thin Prep(R) Imaging System Pap W/Reflex To HR HPV DNA Chlamydia/Neisseria Gonorrhoeae RNA TMA Ortho Cyclen Orthocyclen OFFICE/OUTPATIENT VISIT, EST OFFICE/OUTPATIENT VISIT, EST PREV VISIT, EST, AGE 18-39 Thin Prep(R) Imaging System Pap W/Reflex To HR HPV DNA CHLAMYDIA & N GONORRHOEAE DNA, SDA OFFICE/OUTPATIENT VISIT, EST Orthocyclen PREV VISIT, NEW, AGE 18-39 Thin Prep(R) Imaging System Pap W/Reflex To HR HPV DNA CHLAMYDIA & GC W/REFLEX TO ID (DNA PROBE , ENDOCERMURET) Orthocyclen Advance Directives Directive Yes / No Effective Date File Name No Information Encounters Encounter Description Practice Location Reason(s) For Visit Diagnoses Date Provider Providers Copied on Encounter [facility], [address], [place], [id number] , [place] tel: [phone] [facility] No Information 5 [facility] Janell. [address] [place] [address], [id number] , [place]. tel: [phone] OFFICE/OUTPA TIENT VISIT, [facility], [address], [place], [id number] , [place] tel: [phone] [facility] annual visit (chief complaint) control-OC P (chief complaint) Medication Refill (chief complaint) Gynecological ExaminationOther specified contraceptive managementGenital herpes, unspecified 4 [facility] Janell. [address], [place], [id number] , [place]. tel: [phone] OFFICE/OUTPA TIENT VISIT, [facility], [address] [place] [address], [id number] , [place] tel: [phone] [facility] supply visit/ pills (chief complaint) Surveillance of other contraceptive methodOther specified contraceptive managementGeneral counseling on prescription of oral contraceptives 3 Alpesh Taveras. [address] [place] [address], [id number], [place]. tel: [phone] OFFICE/OUTPA TIENT VISIT, [facility], [address] [place] [address], [id number] , [place] tel: [phone] [facility] update (chief complaint) Gynecological ExaminationSurveillan ce of contraceptive pill 3 Jeanne Foster. [address] [place] [address], [id number] , [place]. tel: [phone] OFFICE/OUTPA TIENT VISIT, [facility], [address] [place] [address], [id number] , [place] tel: [phone] [facility] No Information 2 Jeanne Foster. [address], [place], [id number] , [place]. tel: [phone] PREV VISIT, NEW, AGE 18-39 [facility], [address], [place], [id number] , [place] tel: [phone] [facility] No Information 2 Jeanne Foster. [address], [place], [id number] , [place]. tel: [phone] Family History Family Member Type Diagnosis Age At Onset Father Problem (finding) Alive and well Father Problem (finding) stroke Mother Problem (finding) Alive and well Father Problem (finding) alzheimer's disease Father Problem (finding) malignant neoplasm of u [facility] bladder Father Problem (finding) hypertension Problem (finding) Family history of Heart disease Father Problem (finding) prostate cancer Father Problem (finding) diabetes melli tus in first degree relative Problem (finding) Payers Payer name Insurance type Covered libertarian ID Authoriza tion(s) No Information Social History Type Description Quantity Date Captured Comments Alcohol Use Details Unknown Caffeine Use Details Unknown Tobacco Use Status No Information Smoking Status No Information Sex Female Sexual Orientation Straight or heterosexual Chief Complaint And Reason For Visit No Information Reason For Referral Reason For Referral No Information History Of Present Illness Encounter Date Complaint History Of Prese nt Illness No Information Functional Status Date Functional Assessmen t No Information Instructions Date Instruction Additional Infor mation No Information Assessments Type Assessment Date No Information Patient Care Teams Name Effective Dates (start - stop) Status Members No Information
[2025-06-27 06:20] VITALS: BP 131/104; PULSE 96; TEMP 36.9; O2SAT 99; BMI 19.4
--- OUTSIDE RECORDS SUMMARY | 2025-06-27 06:22 | XMS_ITS | Clinical Summary ---
Author Organization [facility] Address [address] [place] [address] Care Team Providers Care Patcher Wood Welder Name Role Phone Unavailable Primary Care Provider Unavailabl e Source Comments The following information is NOT included in Care Everywhere downloads:Psychiatric notes, ECG results, Cardiac Rehab notes, Pulmonary Function notes, data from SmartForms (includes but not limited toPregnancy data,audiograms, eye exams, pre-surgical evaluation notes, well-child exam data).[facility] Social History Tobacco Use Types Packs/Day Years Used Date Smoking Tobacco: Never Assessed Comments Unknown Sex and Gender Information Value Date Recorded Sex Assigned at Not on file Legal Sex Female 9:44 AM EDT Gender Identity Not on file Sexual Orientation Not on file Plan of Treatment Health Maintenance Due Date Last Done Comments Colonoscopy 1975 HIV Test 01/25/1991 Hepatitis C Antibody 01/25/1994 Tdap Booster 01/25/1994 Hepatitis A (HAV) Vaccine (optional start 19+ years) 01/25/1995 Hepatitis B (HBV) Vaccine (1 of 3 - 19+ 3-dose series) 01/25/1995 Tetanus (Td or Tdap) Booster 01/25/1995 Pap Smear 01/25/1997 Mammography 2016 CRC Screening 01/25/2021 Cholesterol 01/25/2021 Cologuard (Stool DNA) 01/25/2021 FIT 01/25/2021 COVID-19 Vaccine ( - 2023-2 5 season) 2025 Influenza Vaccine (#1) 2025 Shingles (RZV) Vaccine (1 of 2) 01/25/2026 Pneumococcal Vaccine(s) Aged Out No l onger eligible based on patient's age to complete this topic Insurance [employer] on file
--- OUTSIDE RECORDS SUMMARY | 2025-06-27 06:22 | XMS_ITS | Encounter Summary ---
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 Not on file Not on file Not on file documented as of this encounter Plan of Treatment Upcoming Encounters Date Type Department Care Team (Late st Contact Info) Description 07/08/2025 8:30 AM EDT Ancillary Procedure [facility] [place] [facility] [address] [place] [address] 07/08/2025 9:15 AM EDT Office Visit [facility] [place] [facility] [address] [place] [address] Stevan Esteves MD [address] [facility] [address] [facility] [address] [place] [address] 11/17/2025 1:45 PM EST Office Visit [facility] [place] [facility] [address] [place] [phone] Marta Hernandez, [address] [place] [address] documented as of this encounter Visit Diagnoses Not on filedocumented in this encounter Care Teams Cardroom Plastic Card Grader Relationship Specialty Start Date End Date Leanne Stanford MD [address] [facility] [place] [address] PCP - General Family Medicine 07/16/23 documented as of this encounter
--- OUTSIDE RECORDS SUMMARY | 2025-06-27 06:22 | XMS_ITS | Encounter Summary ---
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 on file Not on file Not on file documented as of this encounter Plan of Treatment Upcoming Encounters Date Type Department Care Team (Late Contact Info) Description 07/08/2025 8:30 AM EDT Ancillary Procedure [facility] [place] [facility] [address] [place] [address] 07/08/2025 9:15 AM EDT Office Visit [facility] [place] [facility] [address] [place] [phone] Stevan Esteves MD [address] [place] [address] 11/17/2025 1:45 PM EST Office Visit [facility] [place] [facility] [address] [place] [phone] Marta Hernandez DO [address] [place] [address] documented as of this encounter Visit Diagnoses Not on filedocumented in this encounter Care Teams Applications Manager Relationship Specialty Start Date End Date Leanne Stanford MD [address] [facility] [place] [address] PCP - General Family Medicine 07/16/23 documented as of this encounter
--- OUTSIDE RECORDS SUMMARY | 2025-06-27 06:22 | XMS_ITS | Encounter Summary ---
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 file Not on file Not on file documented as of this encounter Plan of Treatment Upcoming Encounters Date Type Department Care Team (Late st Contact Info) Description 07/08/2025 8:30 AM EDT Ancillary Procedure [facility] [address] [facility] [address] [place] [address] 07/08/2025 9:15 AM EDT Office Visit [facility] [place] [facility] [address] [place] [address] Stevan Esteves MD [address] [place] [address] 11/17/2025 1:45 PM EST Office Visit [facility] [place] [facility] [address] [place] [phone] Marta Hernandez, [address] [place] [address] documented as of this encounter Visit Diagnoses Not on filedocumented in this encounter Care Teams Oil Truck Driver Relationship Specialty Start Date End Date Leanne Stanford MD [address] [facility] [place] [address] PCP - General Family Medicine 07/16/23 documented as of this encounter
--- OUTSIDE RECORDS SUMMARY | 2025-06-27 06:22 | XMS_ITS | Clinical Summary ---
Author Organization [facility] Address [address] [place] [address] Care Team Providers Care Subscription Agent Name Role Phone Leanne Stanford MD Primary Care Provider [phone] Allergies Active Allergy Reactions Criticality Noted Date Comments Cat Dander Unknown Low 06/14/2023 Dust Mite Extract Unknown Low 06/14/2023 Glycerin Unknown Low 06/14/2023 Molds & Smuts Other Low 06/14/2023 Medications ALPRAZolam (Xanax) 1 MG tablet Active ibuprofen 800 MG tablet 08/16/20 23 Active Restasis 0.05 % ophthalmic emulsion Administer 1 drop into both eyes in the morning and 1 drop before bedtime. 12/11/19 24 Active traMADol (Ultram) 50 MG tablet 11/16/19 24 Active omeprazole (PriLOSEC) [address] capsule Take 40 mg by mouth Daily 06/08/20 24 Active valACYclovir (Valtrex) 500 MG tabletIndications:C hronic vulvitis Take 1 tablet (500 mg) by mouth twice daily for 3 days. Then daily 30 tablet 5 07/10/20 24 025 Active Ciclopirox 1 % shampoo 11/18/19 25 Active gabapentin (Neurontin) 100 MG capsuleIndications: Paresthesias Take one cap every 8 hours or all at bedtime 90 capsule 2 01/07/20 25 Active cetirizine (ZyrTEC) 10 MG tablet Take by mouth Act christopher tiotropium (Spiriva Respimat) 2.5 MCG/ACT inhalerIndications: Chronic obstructive pulmonary disease, unspecified COPD type (HCC) Inhale 2 puffs Daily 1 each 5 02/03/20 25 026 Active albuterol HFA (ProAir HFA) 90 mcg/act inhalerIndications: Chronic obstructive pulmonary disease, unspecified COPD type (HCC) Inhale 2 puffs every 4 (four) hours if needed for wheezing 18 g 11 02/11/20 25 026 Active pyridoxine (Vitamin B-6) 25 MG tabletIndications:M ood swings TAKE 1 TABLET (25 MG) BY MOUTH EVERY 8 (EIGHT) HOURS 90 tablet 1 05/19/20 25 Active iron polysaccharides (ProFe) 391.3 (180 Fe) MG capsuleIndications: Iron deficiency Take 1 capsule (391.3 mg) by mouth Daily 90 capsule 3 06/08/20 25 Active iron polysaccharides (ProFe) 391.3 (180 Fe) MG capsuleIndications: Iron deficiency Take 1 capsule (391.3 mg) by mouth Daily 90 capsule 3 06/06/20 24 025 Discontin ued(Reord er) Active Problems Problem Noted Date Diagnosed Date [...] Encounters Date Type Department Care Team Description 06/18/2025 Results Follow-Up [facility] [address] [place] [phone] Stevan Esteves MD CBC 06/08/2025 Refill [facility] [address] [place] [phone] Debbi Keller LPN Iron deficiency 05/19/2025 1:00 PM EDT Office Visit [facility] [address] [place] [phone] Marta Hernandez DO Chronic obstructive pulmonary disease, unspecified COPD type (HCC) (Primary Dx); Cigarette smoker 05/19/2025 Bamboo flowsheet [facility] [address] [place] [address] Marta Hernandez DO 05/19/2025 Travel 05/15/2025 Refill [facility] [address] [place] [phone] Stevan Esteves MD Mood swings 04/09/2025 1:00 PM EDT Ancillary Procedure [facility] [place] [facility] [address] [place] [phone] Encounter for screening mammogram for malignant neoplasm of breast 04/09/2025 Results Follow-Up [facility] [place] [facility] [address] [place] [address] Stevan Esteves MD Bilateral screening mammogram with tomosynthesis 04/09/2025 Travel from Last 3 Months Immunizations Immunization [...] Tobacco: Never Tobacco Cessation:Ready to Q uit: No; Counseling Given: Yes Alcohol Use Standard Drinks/Week [...] Start Date Job End Date 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, 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 Not on file Not on file Not on file Last Filed Vital Signs Vital Sign Reading Time Taken Comments Blood Pressure 115/72 05/19/2025 1:03 PM EDT Pulse 86 05/19/2025 1:03 PM EDT Temperature 36.7 C (98 F) 01/16/2025 5:36 PM EDT Respiratory Rate 18 10/08/2023 3:36 PM EST Oxygen Saturation 99% 05/19/2025 1:03 PM EDT Inhaled Oxygen Concentration - - Weight 59 kg (130 lb) 05/19/2025 1:03 PM EDT Height 167.6 cm (5' 6 ) 05/19/2025 1:03 PM EDT Body Mass Index 20.98 05/19/2025 1:03 PM EDT Plan of Treatment Upcoming Encounters Date Type Department Care Team (Late st Contact Info) Description 07/08/2025 8:30 AM EDT Ancillary Procedure [facility] [place] [facility] [address] [place] [address] 07/08/2025 9:15 AM EDT Office Visit [facility] [address] [place] [address] Stevan Esteves MD [address] [place] [address] 11/17/2025 1:45 PM EST Office Visit [facility] [place] [facility] [address] [place] [address] Marta Hernandez, [address] [place] [address] Procedures Procedure Name Priority Date/Time Associated Diagnosis Comments IRON AND TOTAL IRON BINDING CAPACITY Routine 06/17/2025 11:38 AM EDT Iron deficiency CBC Routine 06/17/2025 11:38 AM EDT Iron deficiency BI MAMMOGRAM SCREENING TOMOSYNTHESIS BILATERAL Routine 04/09/2025 1:02 PM EDT Encounter for screening mammogram for malignant neoplasm of breast from Last 3 Months Results * Iron and TIBC (06/17/2025 11:38 AM EDT) Pathologist [facility] Iron Bind.Cap.(TIBC) 280 250 - 450 ug/dL [facility] UIBC 181 131 - 425 ug/dL [facility] Iron 99 27 - 159 ug/dL [facility] Iron Saturation 35 15 - 55 % [facility] Blood Venous blood specimen / Unknown 06/17/2025 11:38 AM EDT 06/17/2025 Narrative [facility] - 06/18/2025 7:07 AM EDT Performed at: [facility] [id number] [place] Farmer: Andres Arboleda PhD, Phone: [phone] us Stevan Esteves MD LAB BLOOD ORDERABLES Final Res ult [facility] * (ABNORMAL) CBC (06/17/2025 11:38 AM EDT) Pathologist [facility] WBC 8.0 3.4 - 10.8 x10E3/uL [facility] RBC 3.98 3.77 - 5.28 x10E6/uL [facility] Hgb 14.0 11.1 - 15.9 g/dL [facility] Hct 41.3 34.0 - 46.6 % [facility] MCV 104(H) 79 - 97 fL [facility] MCH 35.2(H) 26.6 - 33.0 pg [facility] MCHC 33.9 31.5 - 35.7 g/dL [facility] RDW 12.1 11.7 - 15.4 % [facility] Platelets 262 150 - 450 x10E3/uL [facility] Blood Venous blood specimen / Unknown 06/17/2025 11:38 AM EDT 06/17/2025 Narrative [facility] - 06/18/2025 7:07 AM EDT Performed at: [facility] [id number] [place]: Andres Arboleda PhD, Phone: [phone] us Stevan Esteves MD LAB BLOOD ORDERABLES Final Res ult [facility] * Bilateral screening mammogram with tomosynthesis (04/09/2025 1:02 PM EDT) Anatomical Region Laterality Modality Breast Bilateral Mammography 04/09/2025 2:51 PM EDT Impressions 04/09/2025 3:04 PM EDT BI-RADS 2: BENIGN FINDINGS.. The breasts are extremely dense which lowers the sensitivity of mammography Board Certified Radiologists. Accredited by the ACR and FDA. MAMMOGRAPHY IS VERY IMPORTANT TO YOUR HEALTH. THE [employer] GUIDELINES RECOMMEND THAT WOMEN 40 [...] APPROPRIATE TIME FOR ANY PENDING ADDITIONAL VIEWS. ELECTRONICALLY SIGNED BY: DO Lyle Antony 04/09/2025 3:04 PM EDT BI MAMMOGRAM SCREENING TOMOSYNTHESIS BILATERAL : 04/09/2025 12:52 PM CLINICAL HISTORY: screening. COMPARISONS: September 16, 2019 April 07, 2024. TECHNIQUE: Full field routine digital mammograms were obtained bilaterally. 3D breast tomosynthesis was also performed. CAD analysis was performed and used in the interpretation. FINDINGS: Both breasts remain extremely dense with stable asymmetry. There are no developing masses, suspicious microcalcifications, or areas of architectural distortion identified on today's examination. There is no significant change when compared to the prior examinations identified, given differences in technique and positioning. Procedure Note Crystal Goncalves DO - 04/09/2025 BI MAMMOGRAM SCREENING TOMOSYNTHESIS BILATERAL : 04/09/2025 12:52 PM CLINICAL HISTORY: screening. COMPARISONS: September 16, 2019 April 07, 2024. TECHNIQUE: Full field routine digital mammograms were obtainedbilaterally. 3D breast tomosynthesis was also performed. CAD analysis was performed and used in the interpretation. FINDINGS: Both breasts remain extremely dense with stable asymmetry. There are no developing masses, suspicious microcalcifications, or areasof architectural distortion identified on today's examination. There is no significant change when compared to the prior examinationsidentified, given differences in technique and positioning. IMPRESSION: BI-RADS 2: BENIGN FINDINGS.. The breasts are extremely dense which lowers the sensitivity ofmammography Board Certified Radiologists. Accredited by the ACR and FDA. MAMMOGRAPHY IS VERY IMPORTANT TO YOUR HEALTH. THE [employer] CANCER SOCIETYGUIDELINES RECOMMEND THAT WOMEN 40 YEARS OF AGE AND OLDER SHOULD HAVE AMAMMOGRAM EVERY YEAR. A REMINDER LETTER WILL BE SENT AT THE APPROPRIATE TIME. THIS FACILITYUTILIZES A REMINDER SYSTEM TO ENSURE ALL PATIENTS RECEIVE REMINDERNOTIFICATIONS AT THE APPROPRIATE TIME BASED ON THE RECOMMENDATIONS OF THISEXAM. THIS INCLUDES REMINDERS FOR ROUTINE SCREENING MAMMOGRAMS, DIAGNOSTICMAMMOGRAMS IN WHICH THE PATIENT IS ASKED TO RETURN FOR ADDITIONAL VIEWS,OR OTHER BREAST IMAGING INTERVENTIONS WHEN APPROPRIATE. THE PATIENT WILLBE PLACED IN THE APPROPRIATE REMINDER SYSTEM INCLUDING A REMINDER AT THEAPPROPRIATE TIME FOR ANY PENDING ADDITIONAL VIEWS. ELECTRONICALLY SIGNED BY: Crystal Goncalves DO Authorrenetta Provider Result Type Result Stat us Stevan Esteves MD IMG BI PROCEDURES Final Result from Last 3 Months Insurance [employer] Care Teams Subscription Agent Relationship Specialty Start Date End Date Leanne Stanford MD [address] [place] [phone] PCP - General Family Medicine 07/16/23
--- OUTSIDE RECORDS SUMMARY | 2025-06-27 06:23 | XMS_ITS | Clinical Summary ---
Author Organization [facility] Address [address] [place] [phone] Phone Care Team Providers Care Peel Oven Tender Name Role Phone Unavailable Primary Care Provider Unavailabl e Social History Tobacco Use Types Packs/Day Years Used Date Smoking Tobacco: Never Assessed Comments Unknown Sex and Gender Information Value Date Recorded Sex Assigned at Not on file Legal Sex Female 8:35 PM EST Gender Identity Not on file Sexual Orientation Not on file Plan of Treatment Not on file
--- OUTSIDE RECORDS SUMMARY | 2025-06-27 06:23 | XMS_ITS | Encounter Summary ---
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 Not on file Not on file Not on file documented as of this encounter Plan of Treatment Upcoming Encounters Date Type Department Care Team (Late st Contact Info) Description 07/08/2025 8:30 AM EDT Ancillary Procedure [facility] [address] [place] [address] 07/08/2025 9:15 AM EDT Office Visit [facility] [address] [place] [address] Stevan Esteves MD [address] [place] [address] 11/17/2025 1:45 PM EST Office Visit [facility] [place] [facility] [address] [place] [address] Marta Hernandez DO [address] [place] [address] documented as of this encounter Procedures Procedure [...] Mcmillan Jr., D.O.08/01/2023 1:55 PM Dictation Location: [place] [address] Transcribed By: [facility] 08/01/23 1355 Dictated By: Freedom Mcmillan Jr, DO 08/01/23 1352 Signed By: <Electronically signed by Freedom Mcmillan Jr, DO in OV> 08/01/23 1355 Narrative 08/02/2023 9:04 AM EST [facility] Main [address] [address] [address] Scan Report Signed Patient: Katy Flores MR#: [id number] : 1975 Acct:[id number] Age/Sex: 48 / F ADM Date: 08/01/23 Loc: CT Room: Type: [facility] CLI Attending Dr: Marta Hernandez DO [...] Procedure Note Radiology, Radiologist, MD - 08/02/2023 [facility] Main [place] [address] [place] [address] CT Scan Report Signed Patient: Katy Flores KMR#: [id number] : 1975Acct:[id number] Age/Sex: 48 / FADM Date: 08/01/23 Loc: CT Room:Type: [facility] Attending Dr: Marta Hernandez DO Copies to: [...] concern. Impression dictated by: Freedom Mcmillan Jr., D.OJf08/01/2023 1:55 PM Dictation Location: [place] [address] Transcribed By: [facility] 08/01/23 1355 Dictated By: Freedom Mcmillan Jr, DO 08/01/23 1352 Signed By: <Electronically signed by Freedom Mcmillan Jr, DO inOV> 08/01/23 1355 Marta Hernandez DO IMG CT PROCEDURES Final Resul t documented in this encounter Visit Diagnoses Not on filedocumented in this encounter Care Teams Diamond Cleaver Relationship Specialty Start Date End Date Leanne Stanford MD [address] [place] [phone] PCP - General Family Medicine 07/16/23 documented as of this encounter
--- OUTSIDE RECORDS SUMMARY | 2025-06-27 06:23 | XMS_ITS | Encounter Summary ---
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 on file Not on file Not on file documented as of this encounter Plan of Treatment Upcoming Encounters Date Type Department Care Team (Late st Contact Info) Description 07/08/2025 8:30 AM EDT Ancillary Procedure [facility] [address] [place] [address] 07/08/2025 9:15 AM EDT Office Visit [facility] [address] [place] [address] Stevan Esteves MD [address] [place] [address] 11/17/2025 1:45 PM EST Office Visit [facility] [place] [facility] [address] [place] [address] Marta Hernandez DO [address] [place] [address] documented as of this encounter Procedures Procedure Name Priority Date/Time Associated Diagnosis Comments CONGENITAL TRANSTHORACIC ECHO (TTE) COMPLETE 08/06/2023 2:54 PM EST documented in this encounter Results * Congenital transthoracic echo (TTE) complete (08/06/2023 2:54 PM EST) Anatomical Region Laterality Modality Heart Ultrasound 08/06/2023 2:54 PM EST Narrative 08/07/2023 8:18 AM EST [facility] Main [place] [address] [place] [address] Echocardiogram Signed Patient: Katy Flores MR#: [id number] : 1975 Acct:[id number] Age/Sex: 48 / F ADM Date: 08/06/23 Loc: Room: Type: [facility] Attending Dr: Marta Hernandez DO Ordering Provider: [...] ml EF (HM)_phl: 55.0 % ED Current (HM)_phl: 60.0 % ESV (HM)_phl: 50.0 ml HR (HM)_phl: 78.0 BPMES Current (HM)_phl: 30.0 % LV Length ED (HM)_phl: 85.0 mmSV (HM)_phl: 60.0 ml ED Default (HM)_phl: 60.0 % LV Length ES (HM)_phl: 68.0 mm ES Default (HM)_phl: 30.0 % Transcribed By: [facility] Performed At: 08/06/23 1454 Signed By: Lacey Chun MD 08/06/232028 Procedure Note Lacey Chun MD - 08/07/2023 [facility] Main [place] [address] [place] [address] Echocardiogram Signed Patient: Katy Flores KMR#: [id number] : 1975Acct:[id number] Age/Sex: 48 / FADM Date: 08/06/23 Loc: Room:Type: [facility] Attending Dr: Marta Hernandez DO Ordering Provider: [...] 1454 Signed By: Lacey Chun MD 08/06/232028 us Marta Hernandez DO CV ECHO PROCEDURES Final Resu lt documented in this encounter Visit Diagnoses Not on filedocumented in this encounter Care Teams Face Painter Relationship Specialty Start Date End Date Leanne Stanford MD [address] [place] [phone] PCP - General Family Medicine 07/16/23 documented as of this encounter
--- OUTSIDE RECORDS SUMMARY | 2025-06-27 06:23 | XMS_ITS | Encounter Summary ---
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 Not on file Not on file Not [...] 07/08/2025 8:30 AM EDT Ancillary Procedure [facility] [address] [place] [phone] 07/08/2025 9:15 AM EDT Office Visit [facility] [place] [facility] [address] [place] [phone] Stevan Esteves MD [address] [place] [address] 11/17/2025 1:45 PM EST Office Visit [facility] [address] [place] [phone] Marta Hernandez, [address] [place] [address] documented as of this encounter Visit Diagnoses Not on filedocumented in this encounter Care Teams Double Corner Cutter Relationship Specialty Start Date End Date Leanne Stanford MD [address] [facility] [place] [address] PCP - General Family Medicine 07/16/23 documented as of this encounter
--- OUTSIDE RECORDS SUMMARY | 2025-06-27 06:23 | XMS_ITS | CCD ---
Author Organization [facility] Care Team Providers Care Binder Cutter Hand Name Role Phone NO FAMILY, PHYSICIAN Primary Care Provider Dianava DO Dio Randall Attending Provider FERNANDA CONCEPCION Primary Care Physician [phone] MD Kye Apodaca Attending Provider [phone] MD Stevan Alicia Referring Provider [phone] MD Fernanda Concepcion Primary Care Provider [phone] Fernanda Concepcion Unavailable DR VIKRAM OSUNA V Consulting Unavailable JAMEY, DR FERNANDA Jimenez Primary Care Unavailable MARK HEADLEY Attending Unavailable MARK HEADLEY Admitting Unavailable MARK HEADLEY Consulting Unavailable JAMEY, DR FERNANDA Jimenez Primary Care Unavailable HARIS TEJADA Attending Unavailable HARIS TEJADA Admitting Unavailable MARTHA ., MIRANDA Consulting Unavailable MARTHA Rhoades, MIRANDA Attending Unavailable MIRANDA MURRAY Admitting Unavailable JAMEY, DR FERNANDA Jimenez Primary Care Unavailable GIGI WOODS Consulting Unavailable BOLA MARROQUIN Consulting Unavailable JAMEY, DR FERNANDA Jimenez Primary Care Unavailable CONCEPCION, DR FRENANDA Jimenez Attending Unavailable CONCEPCION, DR FERNANDA Jimenez Admitting Unavailable CONCEPCION, DR FERNANDA Jimenez Consulting Unavailable CONCEPCION, DR FERNANDA Jimenez Primary Care Unavailable CONCEPCION, DR FERNANDA Jimenez Attending Unavailable CONCEPCION, DR FERNANDA Jimenez Admitting Unavailable CONCEPCION, DR FERNANDA Jimenez Consulting Unavailable JAMEY, DR FERNANDA Jimenez Primary [...] Unavailable CONCEPCION, DR FERNANDA Jimenez Consulting Unavailable JAMEY, DR FERNANDA Jimenez Primary Care Unavailable CONCEPCION, DR FERNANDA Jimenez Attending Unavailable CONCEPCION, DR FERNANDA Jimenez Admitting Unavailable GIGI SARMIENTO Consulting Unavailable SARIA, DR LOCKETT Consulting Unavailable CONCEPCION, DR FERNANDA Jimenez Primary Care Unavailable SARAI, DR LOCKETT Attending Unavailable SARAI, DR LOCKETT Admitting Unavailable MD Fernanda Concepcion Primary Care Provider [phone] RANDALL Palencia Attending Provider Charles Gilliam Unavailable MD Fernanda Concepcion Attending Provider SharondaStefan rivera Unavailable MD Fernanda Concepcion Primary Care Provider MD Fernanda Concepcion Attending Provider RHONDA Kaplan Attending Provider DO Marta Hernandez Attending Provider MD Fernanda Concepcion Primary Care Provider RHONDA Kaplan Attending Provider MD Fernanda Concepcion Attending Provider Prashant Mitchell Unavailable DO Prashant Mitchell Attending Provider MD Candelario Johansen Attending Provider DO Dio Lara Attending Provider Fernanda Concepcion MD Primary Care Provider MD Fernanda Concepcion Primary Care Provider [phone] DO Marta Hernandez Attending Provider MD Candealrio Johansen Attending Provider [phone] DO Dio Lara Attending Provider MD Fernanda Concepcion Primary Care Provider MD Destiny Rodriguez Attending Provider [phone] MD Spencer Valadez Attending Provider [phone] MD Fernanda Concepcion Primary Care Provider MD Destiny Rodriguez Attending Provider MD Fernanda Concepcion Primary Care Provider MD Destiny Rodriguez Attending Provider Girma Delgado Referring Unavaila ble ChristGirma stern Attending Unavaila ble ChristGirma stern Admitting Unavaila ble EJRHONDA Attending Unavailab le EJRHONDA Attending Unavailab le EJ, RHONDA Jimenez Attending Unavailab le EJ, RHONDA Jimenez Attending Unavailab le EJ, RHONDA Jimenez Attending Unavailab le EJ, RHONDA Jimenez Attending Unavailab PRASANTH Kearney Referring Unavailable Christoffkyung, Girma Dawson Admitting Unavaila ble ChristGirma stern Attending Unavaila ble NONE, XXXX Referring Unavailable Girma Delgado Admitting Unavaila ble ChristGirma stern Attending Unavaila ble ChristGirma stern Admitting Unavaila ble ChristGirma stern Attending Unavaila ble Girma Delgado Referring Unavaila ble EJRHONDA JOHNSON Attending UnavailMD Fernanda Meraz Primary Care Provider MD Spencer Valadez Attending Provider MD Fernanda Concepcion Primary Care Provider MD Fernanda Concepcion Primary Care Provider MD Fernanda Concepcion Attending Provider MD Fernanda Concepcion Primary Care Provider MD Fernanda Concepcion Attending Provider MD Fernanda Concepcion Primary Care Provider MD Fernanda Concepcion Attending Provider [phone] Fernanda Concepcion MD Primary Care Provider Fernanda Concepcion MD Attending Provider Ute Griffin APRN Attending Provider Danielito DELEON, Penola P Referring Provider Elias CELL ATTENDANTUte Munoz Attending Provider [phone] Danielito DELEON, Stevan Mark Referring Provider Fernanda Concepcion MD Primary Care Provider Ute Griffin APRN Attending Provider Danielito DELEON, Stevan P Referring Provider [phone] Fernanda Concepcion MD Attending Provider Fernanda Concepcion MD Primary Care Provider Ute Griffin APRN Attending Provider [phone] Danielito DELEON, Stevan P Referring Provider [phone] Fernanda Concepcion MD Attending Provider [phone] Fernanda Concepcion MD Primary Care Provider Fernanda Concepcion MD Primary Care Provider Fernanda Concepcion MD Primary Care Provider Marta Hernandez DO Attending Provider Ute Griffin APRN Attending Provider Stevan Alicia MD P Referring Provider Fernanda Concepcion Primary Care Unavailable Ute Griffin Admitting Unavailable Ute Griffin Attending Unavailable Alicia, Jewelola Jas Referring Unavailable Asaad, Imad Admitting Unavailable Asaad, [...] Unavailable Fernanda Concepcion MD Primary Care Provider Fernanda Concepcion MD Primary Care Provider Calvey MD, Destiny R Attending Provider Jalil FORBESC, Jeanette Jimenez Attending Provider Fernanda Concepcion MD Referring Provider [phone] Tad Zapata MD Attending Provider [phone] Cathryn Lambert DO Attending Provider Fernanda Concepcion MD Attending Provider Destiny Rodriguez MD Attending Provider CANDICE PALENCIA Attending Unavailable STEVAN ALICIA Attending Unavailable MARKEL VICENTE Attending Unavailable MARKEL VICENTE Referring Unavailable MARTA HERNANDEZ Attending Unavailable MARTA HERNANDEZ Attending Unavailable STEVAN ALICIA Attending Unavailable STEVAN ALICIA Referring Unavailable MARTA HERNANDEZ Attending Unavailable Allergies Allergy Classification Reported Allergen(s) Allergy Type Date of Onset Reaction(s) Facility Acetaminophen (1 source) Acetaminophen Drug Allergy 02-12-20 24 Unknown Reaction [facility] Cephalosporins (antibiotic) (1 source) cefdinir Drug Allergy 02-12-20 24 Unknown Reaction [facility] cyclobenzaprine (1 source) cyclobenzaprine Drug Allergy 02-12-20 24 Unknown Reaction [facility] Opioid Agonists (1 source) oxyCODONE Drug Allergy 02-12-20 24 Unknown Reaction [facility] (17 sources) Acetaminophen / oxyCODONE Drug Allergy Unknown [facility] Other (19 sources) cefdinir Drug Allergy 01-08-20 24 Unknown, Unknown Reaction [facility] (17 sources) cyclobenzaprine Drug Allergy Unknown [facility] Other (2 sources) Acetaminophen / oxyCODONE Drug Allergy [facility] (3 sources) Allergies Reconciled Propensity to adverse reactions Unknown [facility] Other (3 sources) patient allergy list reviewed by nurse or physicia Propensity to adverse reactions 04-17-20 19 Comment:Done [facility] Other (3 sources) Flexeril *MUSCULOSKELETAL THERAPY AGENTS* Propensity to adverse reactions 06-04-20 13 Unknown [facility] Other (20 sources) Glycerin Drug Allergy 06-14-20 Unknown [facility] (20 sources) House dust mite Allergy to substance 06-14-20 Unknown [facility] (20 sources) Mold Extract Drug Allergy 06-14-20 Other [facility] (20 sources) Cat Hair Extract Allergy to substance 06-14-20 Unknown [facility] (2 sources) Acetaminophen Drug Allergy 01-08-20 Unknown Reaction [facility] (2 sources) cyclobenzaprine Drug Allergy 01-08-20 Unknown Reaction [facility] (2 sources) oxyCODONE Drug Allergy 01-08-20 Unknown Reaction [facility] (1 source) No Known Medication Allergies; Translations: [No Known Medication Allergies] Propensity to adverse reactions (disorder) [facility] Repository Medications Current Medications Medication Drug Class(es) Dates Sig (Normalized) Sig (Original) [id number] 200 actuat albuterol 0.09 mg/actuat metered dose inhaler (11 sources) beta2-Adrenergic Agonist Start: 03-18-2025 take 1 [...] drug therapy ciclopirox 10 mg/ml medicated shampoo (14 sources) Start: 11-17-2024 Ciclopirox 1 % shampoo [...] / vilanterol 0.025 mg/actuat dry powder inhaler (5 sources) Anticholinergic, Corticosteroid, beta2-Adrenergic Agonist Start: 02-10-2025 End: 05-19-2025 take 1 puff(s) by inhalation once daily Vfdibeicomg-Yurywucar-Bwsplh (Trelegy Ellipta) 100-62.5-25 MCG/ACT aerosol powder Indications: Chronic obstructive pulmonary disease, unspecified COPD type (HCC) Inhale 1 puff Daily 1 each 5 02/10/202505/19/2025 Discontinued folic acid 1 mg oral tablet (20 sources) Start: 07-14-2022 take 1 tablet by mouth once daily [...] 1 tablet by mouth once daily Vitamin R73-[id number] Acid 0.5-1 mg Tablet Active 1 TAB PO Daily July 18, 2022 12:00am Complies with drug therapy gabapentin 100 mg oral capsule (20 sources) Anti-epileptic Agent Start: 04-06-2025 take 2 capsules by mouth three times daily Gabapentin 100 mg capsule Active 200 MG PO Three times daily 180 April 06, 2025 4:43pm Complies with drug therapy Start: 02-25-2025 End: 04-06-2025 take 1 capsule by mouth three times daily Gabapentin 100 mg capsule Discontinued 100 MG PO Three times daily March 18, 2025 9:47am April 06, 2025 4:44pm Start: 01-06-2025 gabapentin (Ne urontin) 100 MG [...] mg tablet Active 0 .ROUTE .COMPLEX 90 August 22, 2024 9:10am TAKE 1 TABLET BY MOUTH EVERY 8 HOURS NEEDED FOR PAIN Complies with drug therapy Start: 08-16-2023 End: 08-22-2024 ibuprofen 800 MG tablet 07/20 Active Start: 08-16-2023 End: 04-01-2024 take 1 tablet [...] milk, # 30 tab(s), Refills(s) 3, Pharmacy: [facility]/pharmacy #[id number], 168, cm, 05/16/23 9:58:00 EDT, Height/Length Dosing, 52, kg, 05/16/23 9:58:00 EDT, Weight Dosing Start Date: 05/16/23 Status: Ordered Start: 04-04-2019 End: 12-10-2023 take 1 tablet by mouth every six hours as needed for pain Ibuprofen 800 mg tablet Discontinued 800 MG PO Q6H as needed for pain April 04, 2019 12:00am December 10, 2023 1:03pm methylPREDNISolone 4 mg oral tablet (12 sources) Corticosteroid Start: 03-23-2025 Methylpredniso lone 4 mg tablets,dose pack Active MG PO March 23, 2025 12:00am Complies with drug therapy Start: 01-16-2025 End: 05-19-2025 methylPREDNISolone (Medrol D ospak) 4 MG tablets Indications: Muscle strain of left foot, initial encounter Follow schedule on package instructions 21 tablet 01/16/2025 05/19/2025 Discontinued Start: 01-16-2025 methylPREDNISo lone (Medrol Dospak) 4 [...] take 1 capsule by mouth once daily omeprazole (PriLOSEC) [address] capsule Take 40 mg by mouth Daily 06/08/2024 Active Start: 04-04-2019 End: 06-30-2024 take 1 capsule by mouth once daily Omeprazole 20 mg capsule,delayed release(DR/EC) Discontinued 20 MG PO Daily April 04, 2019 12:00am March 07, 2024 8:18am polysaccharide iron complex 391 mg oral capsule (20 sources) Start: 06-08-2025 take 1 capsule by mouth once daily iron polysaccharides (ProFe) 391.3 (180 Fe) MG capsule Indications: Iron deficiency Take 1 capsule (391.3 mg) by mouth Daily 90 capsule 3 06/08/2025 Active Start: 06-06-2024 End: 06-08-2025 take 1 capsule by mouth once daily iron polysaccharides (ProFe) 391.3 (180 Fe) MG capsule Indications: Iron deficiency Take 1 capsule (391.3 mg) by mouth Daily 90 capsule 3 06/06/2024 06/08/2025 Discontinued (Reorder) Start: 08-15-2023 take 1 capsule by [facility] twice daily iron polysaccharides (ProFe) 391.3 [...] 20, 2022 1:00am Complies with drug therapy prazosin 5 mg oral capsule (20 sources) alpha-Adrenergic Fransisca Start: 11-03-2024 End: 05-19-2025 prazosin (Minipress) 5 MG capsule 11/03/2024 05/19/2025 Discontinued Start: 09-23-2024 End: 03-18-2025 take 1 capsule [...] capsule Discontinued 5 MG PO Every evening 30 Roman 4th, 2024 11:19am September 23, 2024 1:12pm Start: 07-19-2024 End: 07-22-2024 take 1 capsule by mouth once daily in the evening Prazosin 5 mg capsule Discontinued 5 MG PO Every evening July 19, 2024 12:00am July 22, 2024 9:35am ProFe 180 mg oral capsule (10 sources) Start: 12-12-2022 ProFe 180 mg o ral capsule Refills(s) 0 Start Date: 12/12/22 Status: Ordered pyridoxine hydrochloride 25 mg oral tablet (20 sources) Start: 02-11-2025 take 1 tablet by mouth every eight hours pyridoxine (Vitamin B-6) 25 MG tablet Indications: Mood swings TAKE 1 TABLET (25 MG) BY MOUTH EVERY 8 (EIGHT) HOURS 90 tablet 1 05/19/2025 Active Start: 08-20-2024 take 1 tablet by dave th three times daily Pyridoxine (Vitamin B6) 25 mg tablet Active 25 MG PO Three times daily August 20, 2024 1:00am Complies with drug therapy Start: 08-04-2024 End: 08-20-2024 take 1 tablet by mouth once daily Pyridoxine (Vitamin B6) 10 mg tablet Discontinued 10 MG PO Daily August 04, 2024 12:00am August 20, 2024 10:15am Start: 08-04-2024 take 1 tablet by dave th once daily Pyridoxine (Vitamin B6) 10 mg [...] Complies with drug therapy Start: 07-17-2024 End: 05-19-2025 take 1 tablet by mouth once daily sertraline (Zoloft) 25 MG tablet Indications: Mood swings Take 1 tablet (25 mg) by mouth Daily 90 tablet 3 08/13/2024 05/19/2025 Discontinued Spiriva Respimat (5 sources) Spiriva Respimat Active tiotropium 0.018 mg inhalation powder (20 sources) Anticholinergic Start: 02-06-2025 take 1 capsule by inhalation once daily Tiotropium [place] (Spiriva With Handihaler) 18 mcg capsule, w/inhalation device Active 1 CAP INHALATION Daily February 06, 2025 12:00am puncture 1 cap using device; one dose = 2 inhalations Complies with drug therapy Start: 01-10-2024 End: 07-14-2024 take 1 puff(s) by inhalation once daily Tiotropium [place] (Spiriva Respimat) 2.5 mcg/actuation mist Discontinued 2 [...] 1 each 5 10/10/2023 10/09/2024 Active Tiotropium [place] (Spiriva With Handihaler) 18 mcg capsule, w/inhalation device (2 sources) Start: 02-06-2025 take 1 capsule by inhalation once daily Tiotropium [place] (Spiriva With Handihaler) 18 mcg capsule, w/inhalation [...] Daily, # 30 cap(s), Refills(s) 11, Pharmacy: [facility]/pharmacy #[id number], 168, cm, 12/12/22 8:36:00 EDT, Height/Length Dosing, 52.6, kg, 12/12/22 8:36:00 EDT, Weight Dosing Start Date: 12/12/22 Status: Ordered traMADol hydrochloride 50 mg oral tablet (20 sources) Opioid Agonist Start: 11-16-2023 End: 03-24-2025 traMADol (Ultram) 50 MG tablet 11/16/2023 Active Start: 11-16-2023 End: 08-26-2024 take 1 tablet [...] 04, 2019 12:00am July 18, 2022 10:49am valACYclovir 500 mg oral tablet (20 sources) [...] Daily, # 30 tab(s), Refills(s) 2, Pharmacy: [facility]/pharmacy #[id number], 168, cm, 03/14/24 13:40:00 EDT, Height/Length Dosing, 52.2, kg, 03/14/24 13:46:00 EDT, Weight Dosing Start Date: 03/26/24 Status: Ordered amoxicillin 500 mg oral capsule (3 sources) Penicillin-class Antibacterial Start: 12-18-2023 End: 07-01-2024 amoxicillin (Amoxil) 500 MG capsule 12/18/2023 07/01/2024 Discontinued (Med list cleanup) amoxicillin 875 mg / clavulanate 125 mg oral tablet (16 sources) Penicillin-class Antibacterial Start: 07-14-2024 End: 08-04-2024 take 1 tablet by mouth twice daily Amoxicillin-Pot Clavulanate 875-125 mg tablet Discontinued 1 TAB PO Twice daily July 14, 2024 12:00am August 04, 2024 11:32am azithromycin 250 mg oral tablet (18 sources) Macrolide Antimicrobial Start: 08-20-2024 End: 12-11-2024 [...] completed., # 2 tab(s), Refills(s) 0, Pharmacy: [facility]/pharmacy #[id number], 168, cm, 08/09/22 9:45:00 EST, Height/Length Dosing, 52.6, kg... Start Date: 08/15/22 Status: Ordered take 1 tablet by dave th every twelve hours Ciprofloxacin HCl 500 MG [...] twice daily doxepin 3 mg oral tablet (18 sources) Tricyclic Antidepressant Start: 07-22-2024 End: 08-04-2024 [...] % cream APPLY TO FACE EVERY NIGHT [id number] A WEEK OFF & REPEAT DAILY X2 [...] TAB PO Daily July 14, 2022 12:00am predniSONE 5 mg oral tablet (20 sources) [...] right thumb Di scontinued 0 .Route .MEDSUPPLY 1 January 07, 2024 11:00pm January 08, 2024 3:12pm As directed Start: 01-08-2024 End: 01-08-2024 teepee splint right thumb Di scontinued 0 .Route .MEDSUPPLY 1 January 08, 2024 12:00am January 08, 2024 4:12pm As directed Start: 01-08-2024 teepee splint right thumb Active 0 .Route .MEDSUPPLY 1 January 08, 2024 12:00am As directed teepee splint- right thumb (20 sources) Start: 03-18-2024 End: 08-20-2024 tee[place] splint- right thumb Discontinued 0 .Route .MEDSUPPLY 1 March 18, 2024 8:41am August 20, 2024 11:16am As directed. Please specialty order. Start: 03-18-2024 End: 08-20-2024 [place] splint- right thumb D iscontinued 0 .Route .MEDSUPPLY March 18, 2024 7:41am August 20, 2024 [...] 2024 12:00am As directed. Please specialty order. triamcinolone acetonide 1 mg/ml topical cream (20 [...] cleanup) vitamin b6 10 mg oral tablet (12 sources) Start: 08-04-2024 End: 08-20-2024 take 1 [...] Classification Problem Date Documented Da te Episodic/Chronic Anxiety disorders (20 sources) Anxiety; Translations: [Anxiety disorder, unspecified] Onset: 5 Chronic Chronic obstructive pulmonary disease and bronchiectasis (20 sources) Chronic obstructive lung disease; Translations: [Chronic obstructive pulmonary disease, unspecified] Onset: 3 07-18-2023 Chronic Deficiency and other anemia (6 sources) Iron [...] PST INIT] Onset: 3 Episodic Esophageal disorders (19 sources) Gastro-esophageal reflux disease with esophagitis; Translations: [Gastroesophageal reflux disease with esophagitis without hemorrhage] 04-02-2025 Chronic Esophageal disorders (13 sources) Esophageal disorders; [...] emptying] Onset: 9 Episodic Headache; including migraine (20 sources) Migraine without aura, not refractory ; Translations: [Migraine, unspecified, not intractable, without status migrainosus] Onset: 4 03-18-2025 Chronic Hemorrhoids (20 sources) External hemorrhoids; Translations: [Residual hemorrhoidal skin tags] Episodic Joint disorders and dislocations; trauma-related (20 sources) Dislocation of temporomandibular joint; Translations: [Dislocation of jaw, unspecified side, initial encounter] 11-16-2023 Episodic Menopausal disorders (13 sources) Menopausal flushing; Translations: [Menopausal and female [...] toe(s) with damage to nail, sequela] Episodic Other aftercare (1 source) 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; Translations: [OTH [facility] CURRENT DRUG THERAPY] Onset: 3 Episodic Other circulatory disease (1 source) Raynaud's phenomenon; Translations: [Raynaud's syndrome without gangrene] Onset: 4 Chronic Other circulatory disease (16 sources) Raynaud's disease; Translations: [Raynaud's syndrome without [...] diagnosis of hypertension] Episodic Other congenital anomalies (12 sources) Congenital anomaly of eye; Translations: [Congenital [...] Onset: 3 Episodic Other connective tissue disease (17 sources) Pain in right foot; Translations: [Pain [...] tenosynovitis] 12-04-2023 Episodic Other connective tissue disease (6 sources) Pain in toe; Translations: [Pain in left toe(s)] 12-26-2024 Episodic Other connective tissue disease (2 sources) Pain in both feet; Translations: [Pain in right foot] 01-19-2025 Episodic Other connective tissue disease (19 sources) Muscle pain; Translations: [Myalgia, unspecified site] 02-25-2025 Episodic Other connective tissue disease (1 source) Myalgia, unspecified site; Translations: [Myalgia and myositis, unspecified] 02-25-2025 Episodic Other connective tissue disease (10 sources) Pain of toe of left foot; Translations: [Pain in left toe(s)] 12-26-2024 Episodic Other eye disorders (12 sources) Pain in eye; Translations: [Ocular pain, unspecified eye] 10-15-2024 Episodic Other female genital disorders (1 source) [...] obstetric disorders] 08-04-2024 Episodic Other gastrointestinal disorders (1 source) Celiac disease; [...] Onset: 8 Episodic Other nervous system disorders (20 sources) Chronic pain; Translations: [Other chronic pain] 02-25-2025 Chronic Other nervous system disorders (3 sources) Other chronic pain; Translations: [Other chronic pain] Chronic Other nervous system disorders (4 sources) Paresthesia of skin; Translations: [PARESTHESIA OF SKIN] Onset: 3 Episodic Other nervous system disorders (10 sources) Paresthesia; Translations: [Paresthesia of skin] 01-06-2025 Episodic Other nervous system disorders (8 sources) Allodynia; Translations: [Other disturbances of skin sensation] 03-18-2025 Episodic Other non-traumatic joint disorders (20 sources) Pain in wrist; Translations: [Pain in right wrist] 12-04-2023 Episodic Other non-traumatic joint disorders (20 sources) Pain in right wrist; Translations: [Pain in joint, forearm] 12-04-2023 Episodic Other nutritional; endocrine; and metabolic disorders [...] [Patient encounter status] Episodic Other skin disorders (10 sources) Disorder of skin; Translations: [Other skin [...] unclassified (2 sources) Flushing; Translations: [FLUSHING] Onset: Episodic Residual codes; unclassified (20 sources) Unspecified [...] maintaining sleep] 12-10-2023 Episodic Residual codes; unclassified (3 sources) History of endometrial ablation; Translations: [Other specified postprocedural states] 07-03-2024 Episodic Residual codes; unclassified (2 sources) Menopause present; Translations: [Asymptomatic menopausal state] 01-08-2025 Episodic Spondylosis; intervertebral disc disorders; other back problems (17 sources) Cervical spondylosis; Translations: [Spondylosis without myelopathy [...] abdominal pain] Onset: 9 Resolved: 4 Episodic Acute bronchitis (13 sources) Acute bronchitis; Translations: [Acute bronchitis, unspecified] Onset: 5 Episodic Allergic reactions (13 sources) Contact dermatitis; Translations: [Contact dermatitis and other eczema, due to unspecified cause] Onset: 7 Episodic Bacterial infection; unspecified site (12 sources) Bacterial infectious disease; Translations: [Bacterial infection, unspecified, in conditions classified elsewhere and of unspecified site] Onset: 8 Episodic Biliary tract disease (20 sources) Other specified diseases of gallbladder; Translations: [Disorder of gallbladder] Onset: 4 Episodic Deficiency and other anemia (20 sources) Iron deficiency anemia; Translations: [Iron deficiency anemia, unspecified] Onset: 4 Resolved: 4 07-18-2022 Episodic Endometriosis (20 sources) Endometriosis of uterus; Translations: [Endometriosis of [...] 3 Resolved: 3 07-18-2023 Chronic Mood disorders (20 sources) Bipolar II disorder; Translations: [Bipolar II disorder] Onset: 3 Resolved: 3 07-18-2023 Chronic Nonspecific chest pain (14 sources) Chest pain, unspecified; Translations: [Chest pain] Onset: 8 Episodic Osteoarthritis (20 sources) Arthritis of first carpometacarpal joint of right hand; Translations: [Unilateral primary osteoarthritis of first carpometacarpal joint, right hand] Onset: 4 Resolved: 4 12-04-2023 Chronic Other connective tissue disease (13 sources) Lateral epicondylitis; Translations: [Lateral epicondylitis of elbow] Onset: 6 Episodic Other connective tissue disease (20 sources) Tenosynovitis of right radial styloid; Translations: [Radial styloid tenosynovitis [de Quervain]] Onset: 4 Resolved: 4 12-04-2023 Episodic Other connective tissue disease (20 sources) Peroneal tendinitis of right lower limb; Translations: [Peroneal tendinitis, right leg] Onset: 4 Resolved: 4 12-28-2023 Episodic Other connective tissue disease (20 sources) Pain in right hand; Translations: [Pain in right hand] Onset: 4 Resolved: 4 12-28-2023 Episodic Other eye disorders (1 source) Ocular pain, unspecified eye; Translations: [Ocular pain, unspecified eye] Onset: 5 Episodic Other female genital disorders (20 sources) H/O: menorrhagia; Translations: [Personal history of other diseases of the female genital tract] Onset: 4 Resolved: 4 09-20-2022 Episodic Other female genital disorders (20 sources) Cervical intraepithelial neoplasia grade 1; Translations: [Mild cervical dysplasia] Onset: 3 Resolved: 3 07-18-2023 Episodic Other gastrointestinal disorders (20 sources) Adult form of celiac disease; Translations: [Celiac disease] Onset: 4 Resolved: 4 07-18-2022 Chronic Other gastrointestinal disorders (5 sources) Abdominal distension (gaseous); Translations: [Flatulence, eructation, and gas pain] Onset: 4 07-14-2024 Episodic Other hereditary and degenerative nervous system conditions (20 sources) Restless legs; Translations: [Restless legs syndrome] Onset: 4 Resolved: 4 07-18-2022 Chronic Other inflammatory condition of skin (13 sources) [...] unspecified body region] Onset: 4 Episodic Other non-traumatic joint disorders (20 sources) Pain of right wrist; Translations: [Pain in right wrist] Onset: 4 Resolved: 4 12-28-2023 Episodic Other skin disorders (13 sources) Atrophoderma; 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] Onset: 5 Episodic Other upper respiratory disease (20 sources) 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; Translations: [Other allergic rhinitis] Onset: 3 Resolved: 3 07-18-2023 Chronic Other upper respiratory infections (20 sources) Acute maxillary sinusitis; Translations: [Acute recurrent maxillary sinusitis] Onset: 4 Episodic Residual codes; unclassified (12 sources) Tobacco user; Translations: [Nondependent tobacco use disorder] Onset: 5 Episodic Residual codes; unclassified (20 sources) Persistent insomnia; Translations: [Insomnia, unspecified] Onset: 4 Resolved: 4 12-10-2023 Episodic Residual codes; unclassified (1 source) Early [...] of unspecified site] Onset: 8 Viral infection (20 sources) Genital herpes simplex; Translations: [Herpesviral infection of urogenital system, unspecified] Onset: 0 Resolved: 3 07-18-2023 Chronic Results Test Name Value Interpretation Reference Range Facility BI MAMMOGRAM SCREENING TOMOS YNTHESIS BILATERALon 04-09-2025 BI MAMMOGRAM SCREENING TOMOSYNTHESIS BILATERAL This is a summary report. The complete report is available in the patient's medical record. If you cannot access the medical record, please contact the sending organization for a detailed fax or copy. BI MAMMOGRAM SCREENING TOMOSYNTHESIS BILATERAL : 04/09/2025 [...] identified, given differences in technique and positioning. IMPRESSION: BI-RADS 2: BENIGN FINDINGS.. The breasts are extremely dense which lowers the sensitivity of mammography Board Certified Radiologists. Accredited by the ACR and FDA. MAMMOGRAPHY IS VERY IMPORTANT TO YOUR HEALTH. THE CITIZEN OF [place] [employer] GUIDELINES RECOMMEND THAT WOMEN 40 [...] PENDING ADDITIONAL VIEWS. ELECTRONICALLY SIGNED BY: Crystal Goncalves, DO Normal Not Available Comment on above: Order Comment: Spot compression and us prn Laboratory - Chemistry and C hemistry - challengeOrdered By: Fernanda Concepcion on 03-10-2025 Cobalamin (Vitamin B12) [Mass/Vol] 1187 pg/mL 232-1245 [facility] Comment on above: Performed at: [address] [id number] Director: Andres Arboleda PhD, Phone: [phone] No Panel InformationOrdered By: Fernanda Concepcion on 03-10-2025 Folate 38.50 ng/mL 8.60-58.90 [facility] Basophils Auto (Bld) [#/Vol] Ordered By: Ute Griffin on 01-27-2025 Basophils (Bld) [#/Vol] Automated basophil count 0.0-0.2 [facility] Basophils/100 WBC Auto (Bld) Ordered By: Ute Griffin on 01-27-2025 Basophils/100 WBC (Bld) Automated basophil % . [facility] Complete Blood Count Auto Di ffon 01-27-2025 Basophils (Bld) [#/Vol] 0.1 10*3/uL Normal 0.0-0.2 [facility] Comment on above: Result Comment: PERF ORMED BY: [place] [address] [place] [address] PATHOLOGIST COMMUTATOR V RING ASSEMBLER ANTONIO PEREA M.D. Performed By: #### F ER, CBC, FE and TIBC ####[address] Basophils/100 WBC (Bld) 1.2 % Normal . [facility] Comment on above: Performed By: #### F ER, CBC, FE and TIBC ####[address] Eosinophils (Bld) [#/Vol] 0.0 10*3/uL Normal 0.0-0.45 [facility] Comment on above: Performed By: #### F ER, CBC, FE and TIBC ####[address] Eosinophils/100 WBC (Bld) 0.5 % Normal . [facility] Comment on above: Performed By: #### F ER, CBC, FE and TIBC ####[address] Erythrocyte distribution width (RBC) [Ratio] 13.2 % Normal 11.9-15.3 [facility] Comment on above: Performed By: #### F ER, CBC, FE and TIBC ####[address] Hematocrit (Bld) [Volume fraction] 41.5 % Normal 34.0-46.4 [facility] Comment on above: Performed By: #### F ER, CBC, FE and TIBC ####[address] Hemoglobin (Bld) [Mass/Vol] 14.4 g/dL Normal 11.8-15.4 [facility] Comment on above: Performed By: #### F ER, CBC, FE and TIBC ####[address] Lymphocytes (Bld) [#/Vol] 1.9 10*3/uL Normal 1.00-4.8 [facility] Comment on above: Performed By: #### F ER, CBC, FE and TIBC ####[address] Lymphocytes/100 WBC (Bld) 25.6 % Normal . [facility] Comment on above: Performed By: #### F ER, CBC, FE and TIBC ####[address] MCH (RBC) [Entitic mass] 35.1 pg High 24.7-34.3 [facility] Comment on above: Performed By: #### F ER, CBC, FE and TIBC ####[address] MCV (RBC) [Entitic vol] 101.2 fL High 80-100 [facility] Comment on above: Performed By: #### F ER, CBC, FE and TIBC ####[address] Mean Corpuscular HGB Conc 34.6 g/dL Normal 32.0-35.0 [facility] Comment on above: Performed By: #### F ER, CBC, FE and TIBC ####[address] Monocytes (Bld) [#/Vol] 0.3 10*3/uL Normal 0.0-0.8 [facility] Comment on above: Performed By: #### F ER, CBC, FE and TIBC ####[address] Monocytes/100 WBC (Bld) 4.4 % Normal . [facility] Comment on above: Performed By: #### F ER, CBC, FE and TIBC ####[address] Neutrophils (Bld) [#/Vol] 4.9 10*3/uL Normal 1.8-7.7 [facility] Comment on above: Performed By: #### F ER, CBC, FE and TIBC ####[address] Neutrophils/100 WBC (Bld) 68.3 % Normal . [facility] Comment on above: Performed By: #### F ER, CBC, FE and TIBC ####[address] NRBC% 0.1 /100{WBC} Normal 0-0.5 [facility] Comment on above: Performed By: #### F ER, CBC, FE and TIBC ####[address] Platelet mean volume (Bld) [Entitic vol] 7.7 fL Normal 6.3-10.7 [facility] Comment on above: Performed By: #### F ER, CBC, FE and TIBC ####[address] Platelets (Bld) [#/Vol] 234 10*3/uL Normal 150-450 [facility] Comment on above: Performed By: #### F ER, CBC, FE and TIBC ####[address] RBC (Bld) [#/Vol] 4.10 10*6/uL Normal 3.60-5.00 [facility] Comment on above: Performed By: #### F ER, CBC, FE and TIBC ####[address] WBC (Bld) [#/Vol] 7.2 10*3/uL Normal 3.8-11.6 [facility] Comment on above: Performed By: #### F ER, CBC, FE and TIBC ####[address] Eosinophils Auto (Bld) [#/Vo l]Ordered By: Ute Griffin on 01-27-2025 Eosinophils (Bld) [#/Vol] Automated eosinophil count 0.0-0.45 [facility] Eosinophils/100 WBC Auto (Bl d)Ordered By: Ute Griffin on 01-27-2025 Eosinophils/100 WBC (Bld) Automated eosinophil % . [facility] Erythrocyte distribution wid th Auto (RBC) [Ratio]Ordered By: Ute Griffin on 01-27-2025 Erythrocyte distribution width (RBC) [Ratio] Erythrocyte distribution width [Ratio] by Automated count 11.9-15.3 [facility] Ferritinon 01-27-2025 Ferritin [Mass/Vol] 30.5 ng/mL Normal 11.0-306.8 [facility] Comment on above: Result Comment: PERF ORMED BY: [facility] [address] [place] [address] PATHOLOGIST COMMUTATOR V RING ASSEMBLER ANTONIO PEREA M.D. Performed By: #### F ER, CBC, FE and TIBC ####[facility] [place] [id number] [facility] Ferritin [Mass/volume] in Se rum or PlasmaOrdered By: Ute Griffin on 01-27-2025 Ferritin [Mass/Vol] Ferritin [Mass/volum e] in Serum or Plasma 11.0-306.8 [facility] Hematocrit Auto (Bld) [Volum e fraction]Ordered By: Ute Griffin on 01-27-2025 Hematocrit (Bld) [Volume fraction] Hematocrit [Volume Fraction] of Blood by Automated count 34.0-46.4 [facility] Hemoglobin [Mass/volume] in BloodOrdered By: Ute Griffin on 01-27-2025 Hemoglobin (Bld) [Mass/Vol] Hemoglobin [Mass/volume] in Blood 11.8-15.4 [facility] Iron [Mass/volume] in Serum or PlasmaOrdered By: Ute Griffin on 01-27-2025 Iron [Mass/Vol] Iron [Mass/volume] i n Serum or Plasma 50-212 [facility] Iron and TIBC Profileon 01-15 % Iron Saturation 46.7 % Normal 20-50 [facility] Comment on above: Performed By: #### F ER, CBC, FE and TIBC ####[facility] [address] [place] [address] [facility] Iron [Mass/Vol] 151 ug/dL Normal 50-212 [facility] Comment on above: Performed By: #### F ER, CBC, FE and TIBC ####[facility] [address] [place] [address] [facility] Total Iron Binding Capacity 323 ug/dL Normal 255-450 [facility] Comment on above: Performed By: #### F ER, CBC, FE and TIBC ####[facility] [address] [place] [address] [facility] Transferrin [Mass/Vol] 231 mg/dL Normal 203-362 [facility] Comment on above: Performed By: #### F ER, CBC, FE and TIBC ####[facility] [address] [place] [address] [facility] Leukocytes [#/volume] correc gilson for nucleated erythrocytes in Blood by Automated counOrdered By: Ute Griffin on 01-27-2025 WBC corrected for nucl RBC Auto (Bld) [#/Vol] Leukocytes [#/volume] corrected for nucleated erythrocytes in Blood by Automated coun 3.8-11.6 [facility] Lymphocytes Auto (Bld) [#/Vo l]Ordered By: Ute Griffin on 01-27-2025 Lymphocytes (Bld) [#/Vol] Lymphocytes [#/volume] in Blood by Automated count 1.00-4.8 [facility] Lymphocytes/100 WBC Auto (Bl d)Ordered By: Ute Griffin on 01-27-2025 Lymphocytes/100 WBC (Bld) Lymphocytes/100 leukocytes in Blood by Automated count . [facility] MCH Auto (RBC) [Entitic mass ]Ordered By: Ute Griffin on 01-27-2025 MCH (RBC) [Entitic mass] MCH [Entitic mass] by Automated count High 24.7-34.3 [facility] MCHC Auto (RBC) [Mass/Vol]Or dered By: Ute Griffin on 01-27-2025 MCHC (RBC) [Mass/Vol] MCHC [Mass/volume] by Automated count 32.0-35.0 [facility] MCV Auto (RBC) [Entitic vol] Ordered By: Ute Griffin on 01-27-2025 MCV (RBC) [Entitic vol] MCV [Entitic volume] by Automated count High 80-100 [facility] Monocytes Auto (Bld) [#/Vol] Ordered By: Ute Griffin on 01-27-2025 Monocytes (Bld) [#/Vol] Automated blood monocyte count 0.0-0.8 [facility] Monocytes/100 WBC Auto (Bld) Ordered By: Ute Griffin on 01-27-2025 Monocytes/100 WBC (Bld) Automated monocyte % . [facility] Neutrophils Auto (Bld) [#/Vo l]Ordered By: Ute Griffin on 01-27-2025 Neutrophils (Bld) [#/Vol] Neutrophils [#/volume] in Blood by Automated count 1.8-7.7 [facility] Neutrophils/100 WBC Auto (Bl d)Ordered By: Ute Griffin on 01-27-2025 Neutrophils/100 WBC (Bld) Automated neutrophil % . [facility] Nucleated erythrocytes [Pres ence] in Blood by Automated countOrdered By: Ute Griffin on 01-27-2025 Nucleated RBC Auto Ql (Bld) Nucleated erythrocytes [Presence] in Blood by Automated count 0-0.5 [facility] Platelet mean volume Auto (B ld) [Entitic vol]Ordered By: Ute Griffin on 01-27-2025 Platelet mean volume (Bld) [Entitic vol] Platelet mean volume [Entitic volume] in Blood by Automated count 6.3-10.7 [facility] Platelets Auto (Bld) [#/Vol] Ordered By: Ute Griffin on 01-27-2025 Platelets (Bld) [#/Vol] Platelets [#/volume] in Blood by Automated count 150-450 [facility] RBC Auto (Bld) [#/Vol]Ordere d By: Ute Griffin on 01-27-2025 RBC (Bld) [#/Vol] Erythrocytes [#/volu me] in Blood by Automated count 3.60-5.00 [facility] Serum or plasma iron binding capacity measurement (mass/volume)Ordered By: Ute Griffin on 05-13-2025 Iron binding capacity [Mass/Vol] Iron binding capacity [Mass/volume] in Serum or Plasma 255-450 [facility] Serum or plasma iron saturat ion measurement (mass fraction)Ordered By: Ute Griffin on 01-27-2025 Iron saturation [Mass fraction] Iron saturation [Mass Fraction] in Serum or Plasma 20-50 [facility] Transferrin [Mass/volume] in Serum or PlasmaOrdered By: Ute Griffin on 01-27-2025 Transferrin [Mass/Vol] Transferrin [Mass/volume] in Serum or Plasma 203-362 [facility] WBC Auto (Bld) [#/Vol]Ordere d By: Ute Griffin on 01-27-2025 WBC (Bld) [#/Vol] Leukocytes [#/volume ] in Blood by Automated count 3.8-11.6 [facility] X-ray reportOrdered By: Hermes Mcmillan on 01-27-2025 Study report [facility] [place] [address] XRay Report Signed Patient: Katy Banuelos MR#: [id number] : 1975 Acct:[id number] Age/Sex: 50 / F ADM Date: 5 Loc: XDS Room: Type: [facility] Attending Dr: Marta Hernandez DO Copies to: [...] Jr., D.OJf 01/27/2025 2:32 PM Dictation Location: [place] [address] Transcribed By: PAKO 01/27/25 143 Dictated By: Freedom Mcmillan Jr, DO 01/27/25 1432 Signed By: 01/27/25 1432 [facility] XR chest 2V*on 01-27-2025 XR chest 2V* [facility] [place] [address] XRay Report Signed Patient: Katy Banuelos MR#: [id number] : 1975 Acct:[id number] Age/Sex: 50 / F ADM Date: 01/27/25 [facility] Type: [facility] Attending Dr: Marta Hernandez DO Copies to: [...] Jr., D.O. 01/27/2025 2:32 PM Dictation Location: [facility] Transcribed By: [facility] 01/27/25 1432 Dictated By: Freedom Mcmillan Jr, DO 01/27/25 1432 Signed By: 01/27/25 1432 Normal [facility] No Panel Informationon 01-16 Markel Yanez LPN 01/19/2025 9:08 PM Splint Application Date/Time: 01/16/2025 6:50 PM Performed by: Markel Yanez LPN Authorized by: Markel iVcente NP Consent: Consent obtained: Verbal Consent given by: Patient Procedure details: Location: Foot Foot location: L foot Supplies: Prefabricated splint Attestation: Splint applied and adjusted personally by me Comments: Pt and provider signed DME form. Pt provided with left foot cam boot. Ref # [id number] [facility] XR FOOT 3+ VIEWS LEFTon XR FOOT [...] report is generated using voice recognition reporting (Navarike). On occasion, Powerscribe erroneously drops words from [...] report is generated using voice recognition reporting (Wireless Techcribe). On occasion, Powerscribe erroneously drops words from the report or replaces the spoken word with a similar sounding word. Please call with any questions/concerns regarding the report. IMAGING Adonay Lawrence MD - 01/16/2025 Title of [...] report is generated using voice recognition reporting (Wireless Techcribe). On occasion, Powerscribe erroneously drops words from the report or replaces the spoken word with a similar sounding word. Please call with any questions/concerns regarding the report. [facility] Radiology Study observation (narrative) [facility] XR Foot - left 3 ViewsOrdere d By: Adonay Lawrence on 01-16-2025 [facility] Work Phone: Laboratory - Cytologyon 12-18 Anthropology Department Chair Cyto stain Nom (Cvx/Vag) [ID] Comment [facility] Comment on above: Delmi Egan ologist (ASCP) Cytology report Cyto stain Doc (Cvx/Vag) Comment [facility] Comment on above: NEGATIVE FOR INTRAEP ITHELIAL LESION OR MALIGNANCY. Cytology report Cyto stain.thin prep Doc (Cvx/Vag) Comment [facility] Comment on above: This liquid based Th inPrep(R) pap test was screened with the use of an image guided system. Statement of adequacy Cyto stain (Cvx/Vag) [Interp] Comment [facility] Comment on above: Satisfactory for philip luation. Endocervical and/or squamous metaplastic cells (endocervical component) are present. Laboratory - Microbiology an d Antimicrobial susceptibilityon 01-14-2025 HPV 16+18+31+33+35+39+45+ 51+52+56+58+59+66+68 DNA Probe+sig amp Ql (Cvx) Negative Negative [facility] Comment on above: This nucleic acid am plification test detects fourteen high- risk HPV types (16,18,31,33,35,39,45,51,52,56,58,59,66,68) without differentiation. Microscopic observation Other stain Nom (Unsp spec) . [facility] Laboratory - Miscellaneous t estson 01-14-2025 Service comment (Unsp spec) [Interp] Comment [facility] Comment on above: The Pap smear is a s creening test designed to aid in the detection of premalignant and malignant conditions of the uterine cervix. It is not a diagnostic procedure and should not be used as the sole means of detecting cervical cancer. Both false-positive and false-negative reports do occur. No Panel Informationon 01-14 Diagnosis ICD code [Identifier] Comment [facility] Comment on above: Z01.419 Z12.4 Performed at: - [facility] Cyto Histo [address] [place] [id number] Tongue Carrier: Antony Dunne MD, Phone: [phone] Performed at: - [address] [id number] Tongue Carrier: Faviola Wade MD, Phone: [phone] Performed at: Lab[address] [id number] Tongue Carrier: Faviola Wade MD, Phone: [phone] Specimen Comment: No. of containers..01 ThinPrep Vial [facility] Laboratory - Chemistry and C hemistry - challengeon 01-13-2025 Cancer Ag 125 Qn 7.5 [arb'U]/mL 0.0 - 38. 1 U/mL [facility] Comment on above: [facility] El ectrochemiluminescence Immunoassay (ECLIA) Values obtained with different assay methods or kits cannot be used interchangeably. Results cannot be interpreted as absolute evidence of the presence or absence of malignant disease. Carcinoembryonic Ag [Mass/Vol] 3.6 ng/mL 0.0 - 4.7 ng/mL [facility] Comment on above: Nonsmokers <3.9 Smokers <5.6 [facility] Electrochemiluminescence Immunoassay (ECLIA) Values obtained with different assay methods or kits cannot be used interchangeably. Results cannot be interpreted as absolute evidence of the presence or absence of malignant disease. Follitropin Qn 49.6 m[IU]/mL mIU/mL [facility] Comment on above: Adult Female Range Follicular phase 3.5 - 12.5 Ovulation phase 4.7 - 21.5 Luteal phase 1.7 - 7.7 Postmenopausal 25.8 - 134.8 No Panel Informationon 01-13 Performed at: [address] [id number] Tongue Carrier: Andres Arboleda PhD, Phone: [phone] [facility] Laboratory - Chemistry and C hemistry - challengeon 11-10-2024 Free T4 [Mass/Vol] 0.92 ng/dL 0.76-1.46 [facility] TSH Qn 0.850 m[IU]/L 0.358-3.74 0 [facility] No Panel Informationon 11-10 Miscellaneous Test COMMENT . [facility] Comment on above: Test Ordered: [id number] AChR Binding Abs, SerumAChR Binding Abs, Serum <0.03 nmol/L Reference Range: 0.00-0.24 Negative: 0.00 - 0.24 Borderline: 0.25 - 0.40 Positive: >0.40Performed at: [address] [id number] Director: Rikki Robert MD, Phone: [phone] at: [address] [id number] Director: Andres Arboleda PhD, Phone: [phone] Test Ordered: [id number] AChR Blocking Abs, SerumAChR Blocking Abs, Serum 13 % BN Reference Range: 0-25This test was developed and its performance characteristicsdetermined by [facility]. It has not been cleared orapproved by the Food and Drug Administration. Negative: 0 - 25 Borderline: 26 - 30 Positive: >30Performed at: [address] [id number] Director: Rikki Robert MD, Phone: [phone] at: [facility] [place] [id number] Director: Andres Arboleda PhD, Phone: [phone] Serum or plasma thyroglobuli n antibody assay (units/volume)on 11-10-2024 Thyroglobulin Ab Qn Serum or plasma thyroglobulin antibody assay (units/volume) 0.0-0.9 [facility] Comment on above: Thyroglobulin Antibo dy measured by Sasha CoulterMethodologyIt should be noted that the presence of thyroglobulinantibodies may not be pathogenic nor diagnostic, especiallyat very low levels. The assay microbiology professor has found thatfour percent of individuals without evidence of thyroiddisease or autoimmunity will have positive TgAb levels upto 4 IU/mL.Performed at: [facility] [place] [id number] Director: Andres Arboleda PhD, Phone: [phone] Serum or plasma thyroperoxid ase antibody assay (units/volume)on 11-10-2024 TPO Ab Qn Serum or plasma thyroperoxidase antibody assay (units/volume) 0-34 [facility] MR head/brain wo/w conon MR head/brain wo/w con [facility] [address] [place] [id number] MRI Report Signed Patient: Katy Banuelos MR#: [id number] : 1975 Acct:[id number] Age/Sex: 49 / F ADM Date: 11/05/24 Loc: MR Room: Type: [facility] Attending Dr: Fernanda Concepcion MD Copies to: Fernanda Cnocepcion MD Ordering Provider: Fernanda Concepcion MD Date [...] Fantasma Figueroa M.D.11/05/2024 5:42 PM Dictation Location: [place] [address] Transcribed By: [facility] 11/05/24 174 Dictated By: Fantasma Figueroa MD 11/05/241734 Signed By: 11/05/24 174 Normal [facility] Magnetic resonance imaging r eportOrdered By: Fantasma Figueroa on 11-05-2024 Study report [facility] [address] [address] MRI Report Signed Patient: Katy Banuelos MR#: [id number] : 1975 Acct:[id number] Age/Sex: 49 / F ADM Date: 5 [...] Fantasma Figueroa M.D.11/05/2024 5:42 PM Dictation Location: [place] [address] Transcribed By: [facility] 11/05/241741 Dictated By: Fantasma Figueroa MD 11/05/241734 Signed By: 11/05/241741 [facility] Work Phone: Basophils Auto (Bld) [#/Vol] Ordered By: Ute Griffin on 10-14-2024 Basophils (Bld) [#/Vol] Automated basophil count 0.0-0.2 [facility] Basophils/100 WBC Auto (Bld) Ordered By: Ute Griffin on 10-14-2024 Basophils/100 WBC (Bld) Automated basophil % . [facility] Complete Blood Count Auto Di ffon 10-14-2024 Basophils (Bld) [#/Vol] 0.1 10*3/uL Normal 0.0-0.2 [facility] Comment on above: Result Comment: PERF ORMED BY: [facility] [address] [place] [address] PATHOLOGIST COMMUTATOR V RING ASSEMBLER ANTONIO PEREA M.D. Performed By: #### F ER, FE and TIBC, CBC #### [address] Basophils/100 WBC (Bld) 0.9 % Normal . [facility] Comment on above: Performed By: #### F ER, FE and TIBC, CBC #### [address] Eosinophils (Bld) [#/Vol] 0.1 10*3/uL Normal 0.0-0.45 [facility] Comment on above: Performed By: #### F ER, FE and TIBC, CBC #### [address] Eosinophils/100 WBC (Bld) 0.9 % Normal . [facility] Comment on above: Performed By: #### F ER, FE and TIBC, CBC #### [address] Erythrocyte distribution width (RBC) [Ratio] 14.4 % Normal 11.9-15.3 [facility] Comment on above: Performed By: #### F ER, FE and TIBC, CBC #### [address] Hematocrit (Bld) [Volume fraction] 39.2 % Normal 34.0-46.4 [facility] Comment on above: Performed By: #### F ER, FE and TIBC, CBC #### [address] Hemoglobin (Bld) [Mass/Vol] 13.7 g/dL Normal 11.8-15.4 [facility] Comment on above: Performed By: #### F ER, FE and TIBC, CBC #### [address] Lymphocytes (Bld) [#/Vol] 1.4 10*3/uL Normal 1.00-4.8 [facility] Comment on above: Performed By: #### F ER, FE and TIBC, CBC #### [place] [id number] [place] Lymphocytes/100 WBC (Bld) 21.4 % Normal . [facility] Comment on above: Performed By: #### F ER, FE and TIBC, CBC #### [address] MCH (RBC) [Entitic mass] 34.7 pg High 24.7-34.3 [facility] Comment on above: Performed By: #### F ER, FE and TIBC, CBC #### [address] MCV (RBC) [Entitic vol] 99.4 fL Normal 80-100 [facility] Comment on above: Performed By: #### F ER, FE and TIBC, CBC #### [address] Mean Corpuscular HGB Conc 34.9 g/dL Normal 32.0-35.0 [facility] Comment on above: Performed By: #### F ER, FE and TIBC, CBC #### [address] Monocytes (Bld) [#/Vol] 0.4 10*3/uL Normal 0.0-0.8 [facility] Comment on above: Performed By: #### F ER, FE and TIBC, CBC #### [address] Monocytes/100 WBC (Bld) 5.4 % Normal . [facility] Comment on above: Performed By: #### F ER, FE and TIBC, CBC #### [address] Neutrophils (Bld) [#/Vol] 4.7 10*3/uL Normal 1.8-7.7 [facility] Comment on above: Performed By: #### F ER, FE and TIBC, CBC #### [address] Neutrophils/100 WBC (Bld) 71.4 % Normal . [facility] Comment on above: Performed By: #### F ER, FE and TIBC, CBC #### [facility] [address] NRBC% 0.1 /100{WBC} Normal 0-0.5 [facility] Comment on above: Performed By: #### F ER, FE and TIBC, CBC #### [facility] [address] Platelet mean volume (Bld) [Entitic vol] 7.7 fL Normal 6.3-10.7 [facility] Comment on above: Performed By: #### F ER, FE and TIBC, CBC #### [facility] [address] Platelets (Bld) [#/Vol] 242 10*3/uL Normal 150-450 [facility] Comment on above: Performed By: #### F ER, FE and TIBC, CBC #### [address] RBC (Bld) [#/Vol] 3.95 10*6/uL Normal 3.60-5.00 [facility] Comment on above: Performed By: #### F ER, FE and TIBC, CBC #### [address] WBC (Bld) [#/Vol] 6.6 10*3/uL Normal 3.8-11.6 [facility] Comment on above: Performed By: #### F ER, FE and TIBC, CBC #### [place] [address] [place] Eosinophils Auto (Bld) [#/Vo l]Ordered By: Ute Griffin on 10-14-2024 Eosinophils (Bld) [#/Vol] Automated eosinophil count 0.0-0.45 [facility] Eosinophils/100 WBC Auto (Bl d)Ordered By: Ute Griffin on 10-14-2024 Eosinophils/100 WBC (Bld) Automated eosinophil % . [facility] Erythrocyte distribution wid th Auto (RBC) [Ratio]Ordered By: Ute Griffin on 10-14-2024 Erythrocyte distribution width (RBC) [Ratio] Erythrocyte distribution width [Ratio] by Automated count 11.9-15.3 [facility] Ferritinon 10-14-2024 Ferritin [Mass/Vol] 55.8 ng/mL Normal 11.0-306.8 [facility] Comment on above: Result Comment: PERF ORMED BY: [facility] [address] [place] [address] PATHOLOGIST COMMUTATOR V [employer]ING ASSEMBLER ANTONIO PEREA M.D. Performed By: #### F ER, FE and TIBC, CBC #### [facility] [address] [place] [id number] [facility] Ferritin [Mass/volume] in Se rum or PlasmaOrdered By: Ute Griffin on 10-14-2024 Ferritin [Mass/Vol] Ferritin [Mass/volum e] in Serum or Plasma 11.0-306.8 [facility] Hematocrit Auto (Bld) [Volum e fraction]Ordered By: Ute Griffin on 10-14-2024 Hematocrit (Bld) [Volume fraction] Hematocrit [Volume Fraction] of Blood by Automated count 34.0-46.4 [facility] Hemoglobin [Mass/volume] in BloodOrdered By: Ute Griffin on 10-14-2024 Hemoglobin (Bld) [Mass/Vol] Hemoglobin [Mass/volume] in Blood 11.8-15.4 [facility] Iron [Mass/volume] in Serum or PlasmaOrdered By: Ute Griffin on 10-14-2024 Iron [Mass/Vol] Iron [Mass/volume] i n Serum or Plasma 50-212 [facility] Iron and TIBC Profileon 09-18 % Iron Saturation 46.4 % Normal 20-50 [facility] Comment on above: Performed By: #### F ER, FE and TIBC, CBC #### [facility] [address] [place] [id number] [facility] Iron [Mass/Vol] 140 ug/dL Normal 50-212 [facility] Comment on above: Performed By: #### F ER, FE and TIBC, CBC #### [facility] [address] [place] [id number] [facility] Total Iron Binding Capacity 302 ug/dL Normal 255-450 [facility] Comment on above: Performed By: #### F ER, FE and TIBC, CBC #### [facility] [address] [place] [address] [place] Transferrin [Mass/Vol] 216 mg/dL Normal 203-362 [facility] Comment on above: Performed By: #### F ER, FE and TIBC, CBC #### [facility] [address] Leukocytes [#/volume] correc gilson for nucleated erythrocytes in Blood by Automated counOrdered By: Ute Griffin on 10-14-2024 WBC corrected for nucl RBC Auto (Bld) [#/Vol] Leukocytes [#/volume] corrected for nucleated erythrocytes in Blood by Automated coun 3.8-11.6 [facility] Lymphocytes Auto (Bld) [#/Vo l]Ordered By: Ute Griffin on 10-14-2024 Lymphocytes (Bld) [#/Vol] Lymphocytes [#/volume] in Blood by Automated count 1.00-4.8 [facility] Lymphocytes/100 WBC Auto (Bl d)Ordered By: Ute Griffin on 10-14-2024 Lymphocytes/100 WBC (Bld) Lymphocytes/100 leukocytes in Blood by Automated count . [facility] MCH Auto (RBC) [Entitic mass ]Ordered By: Ute Griffin on 10-14-2024 MCH (RBC) [Entitic mass] MCH [Entitic mass] by Automated count High 24.7-34.3 [facility] MCHC Auto (RBC) [Mass/Vol]Or dered By: Ute Griffin on 10-14-2024 MCHC (RBC) [Mass/Vol] MCHC [Mass/volume] by Automated count 32.0-35.0 [facility] MCV Auto (RBC) [Entitic vol] Ordered By: Ute Griffin on 10-14-2024 MCV (RBC) [Entitic vol] MCV [Entitic volume] by Automated count 80-100 [facility] Monocytes Auto (Bld) [#/Vol] Ordered By: Ute Griffin on 10-14-2024 Monocytes (Bld) [#/Vol] Automated blood monocyte count 0.0-0.8 [facility] Monocytes/100 WBC Auto (Bld) Ordered By: Ute Griffin on 10-14-2024 Monocytes/100 WBC (Bld) Automated monocyte % . [facility] Neutrophils Auto (Bld) [#/Vo l]Ordered By: Ute Griffin on 10-14-2024 Neutrophils (Bld) [#/Vol] Neutrophils [#/volume] in Blood by Automated count 1.8-7.7 [facility] Neutrophils/100 WBC Auto (Bl d)Ordered By: Ute Griffin on 10-14-2024 Neutrophils/100 WBC (Bld) Automated neutrophil % . [facility] Nucleated erythrocytes [Pres ence] in Blood by Automated countOrdered By: Ute Griffin on 10-14-2024 Nucleated RBC Auto Ql (Bld) Nucleated erythrocytes [Presence] in Blood by Automated count 0-0.5 [facility] Platelet mean volume Auto (B ld) [Entitic vol]Ordered By: Ute Griffin on 10-14-2024 Platelet mean volume (Bld) [Entitic vol] Platelet mean volume [Entitic volume] in Blood by Automated count 6.3-10.7 [facility] Platelets Auto (Bld) [#/Vol] Ordered By: Ute Griffin on 10-14-2024 Platelets (Bld) [#/Vol] Platelets [#/volume] in Blood by Automated count 150-450 [facility] RBC Auto (Bld) [#/Vol]Ordere d By: Ute Griffin on 10-14-2024 RBC (Bld) [#/Vol] Erythrocytes [#/volu me] in Blood by Automated count 3.60-5.00 [facility] Serum or plasma iron binding capacity measurement (mass/volume)Ordered By: Ute Griffin on 10-14-2024 Iron binding capacity [Mass/Vol] Iron binding capacity [Mass/volume] in Serum or Plasma 255-450 [facility] Serum or plasma iron saturat ion measurement (mass fraction)Ordered By: Ute Griffin on 10-14-2024 Iron saturation [Mass fraction] Iron saturation [Mass Fraction] in Serum or Plasma 20-50 [facility] Transferrin [Mass/volume] in Serum or PlasmaOrdered By: Ute Griffin on 10-14-2024 Transferrin [Mass/Vol] Transferrin [Mass/volume] in Serum or Plasma 203-362 [facility] WBC Auto (Bld) [#/Vol]Ordere d By: Ute Griffin on 10-14-2024 WBC (Bld) [#/Vol] Leukocytes [#/volume ] in Blood by Automated count 3.8-11.6 [facility] Basophils Auto (Bld) [#/Vol] Ordered By: Ute Griffin on 08-04-2024 Basophils (Bld) [#/Vol] Automated basophil count 0.0-0.2 [facility] Basophils/100 WBC Auto (Bld) Ordered By: Ute Griffin on 08-04-2024 Basophils/100 WBC (Bld) Automated basophil % . [facility] Complete Blood Count Auto Di ffon 08-04-2024 Basophils (Bld) [#/Vol] 0.1 10*3/uL Normal 0.0-0.2 [facility] Comment on above: Result Comment: PERF ORMED BY: [facility] [address] [place] [address] PATHOLOGIST COMMUTATOR [employer] ASSEMBLER ANTONIO PEREA M.D. Performed By: #### C BC, BENNY, FE and TIBC #### [facility] [address] Basophils/100 WBC (Bld) 1.3 % Normal . [facility] Comment on above: Performed By: #### C BC, BENNY, FE and TIBC #### [facility] [address] [place] [address] [place] Eosinophils (Bld) [#/Vol] 0.0 10*3/uL Normal 0.0-0.45 [facility] Comment on above: Performed By: #### C BC, BENNY, FE and TIBC #### [facility] [address] [place] [address] [place] Eosinophils/100 WBC (Bld) 0.6 % Normal . [facility] Comment on above: Performed By: #### C BC, BENNY, FE and TIBC #### [facility] [address] Erythrocyte distribution width (RBC) [Ratio] 16.4 % High 11.9-15.3 [facility] Comment on above: Performed By: #### C BC, BENNY, FE and TIBC #### [address] Hematocrit (Bld) [Volume fraction] 32.9 % Low 34.0-46.4 [facility] Comment on above: Performed By: #### C BC, BENNY, FE and TIBC #### [address] Hemoglobin (Bld) [Mass/Vol] 11.1 g/dL Low 11.8-15.4 [facility] Comment on above: Performed By: #### C BC, BENNY, FE and TIBC #### [address] Lymphocytes (Bld) [#/Vol] 1.4 10*3/uL Normal 1.00-4.8 [facility] Comment on above: Performed By: #### C BC, BENNY, FE and TIBC #### [address] Lymphocytes/100 WBC (Bld) 21.1 % Normal . [facility] Comment on above: Performed By: #### C BC, BENNY, FE and TIBC #### [address] MCH (RBC) [Entitic mass] 32.0 pg Normal 24.7-34.3 [facility] Comment on above: Performed By: #### C BC, BENNY, FE and TIBC #### [address] MCV (RBC) [Entitic vol] 94.4 fL Normal 80-100 [facility] Comment on above: Performed By: #### C BC, BENNY, FE and TIBC #### [address] Mean Corpuscular HGB Conc 33.9 g/dL Normal 32.0-35.0 [facility] Comment on above: Performed By: #### C BC, BENNY, FE and TIBC #### [facility] [address] Monocytes (Bld) [#/Vol] 0.4 10*3/uL Normal 0.0-0.8 [facility] Comment on above: Performed By: #### C BC, BENNY, FE and TIBC #### [address] Monocytes/100 WBC (Bld) 5.3 % Normal . [facility] Comment on above: Performed By: #### C BC, BENNY, FE and TIBC #### [address] Neutrophils (Bld) [#/Vol] 4.8 10*3/uL Normal 1.8-7.7 [facility] Comment on above: Performed By: #### C BC, BENNY, FE and TIBC #### [address] Neutrophils/100 WBC (Bld) 71.7 % Normal . [facility] Comment on above: Performed By: #### C BC, BENNY, FE and TIBC #### [address] NRBC% 0.0 /100{WBC} Normal 0-0.5 [facility] Comment on above: Performed By: #### C BC, BENNY, FE and TIBC #### [address] Platelet mean volume (Bld) [Entitic vol] 7.6 fL Normal 6.3-10.7 [facility] Comment on above: Performed By: #### C BC, BENNY, FE and TIBC #### [place] [address] [place] Platelets (Bld) [#/Vol] 223 10*3/uL Normal 150-450 [facility] Comment on above: Performed By: #### C BC, BENNY, FE and TIBC #### [place] [address] [place] RBC (Bld) [#/Vol] 3.49 10*6/uL Low 3.60-5.00 [facility] Comment on above: Performed By: #### C BC, BENNY, FE and TIBC #### [address] WBC (Bld) [#/Vol] 6.7 10*3/uL Normal 3.8-11.6 [facility] Comment on above: Performed By: #### C BC, BENNY, FE and TIBC #### [address] Eosinophils Auto (Bld) [#/Vo l]Ordered By: Ute Griffin on 08-04-2024 Eosinophils (Bld) [#/Vol] Automated eosinophil count 0.0-0.45 [facility] Eosinophils/100 WBC Auto (Bl d)Ordered By: Ute Griffin on 08-04-2024 Eosinophils/100 WBC (Bld) Automated eosinophil % . [facility] Erythrocyte distribution wid th Auto (RBC) [Ratio]Ordered By: Ute Griffin on 08-04-2024 Erythrocyte distribution width (RBC) [Ratio] Erythrocyte distribution width [Ratio] by Automated count High 11.9-15.3 [facility] Ferritinon 08-04-2024 Ferritin [Mass/Vol] 5.2 ng/mL Low 11.0-306.8 [facility] Comment on above: Result Comment: PERF ORMED BY: [place] [address] PATHOLOGIST COMMUTATOR [employer]ING ASSEMBLER ANTONIO PEREA M.D. Performed By: #### C BC, BENNY, FE and TIBC #### [address] Ferritin [Mass/volume] in Se rum or PlasmaOrdered By: Ute Griffin on 08-04-2024 Ferritin [Mass/Vol] Ferritin [Mass/volum e] in Serum or Plasma Low 11.0-306.8 [facility] Hematocrit Auto (Bld) [Volum e fraction]Ordered By: Ute Griffin on 08-04-2024 Hematocrit (Bld) [Volume fraction] Hematocrit [Volume Fraction] of Blood by Automated count Low 34.0-46.4 [facility] Hemoglobin [Mass/volume] in BloodOrdered By: Ute Griffin on 08-04-2024 Hemoglobin (Bld) [Mass/Vol] Hemoglobin [Mass/volume] in Blood Low 11.8-15.4 [facility] Iron [Mass/volume] in Serum or PlasmaOrdered By: Ute Griffin on 08-04-2024 Iron [Mass/Vol] Iron [Mass/volume] i n Serum or Plasma Low 50-212 [facility] Iron and TIBC Profileon 07-18 % Iron Saturation 12.2 % Low 20-50 [facility] Comment on above: Performed By: #### C BC, BENNY, FE and TIBC #### [facility] [address] Iron [Mass/Vol] 49 ug/dL Low 50-212 [facility] Comment on above: Performed By: #### C BC, BENNY, FE and TIBC #### [facility] [address] Total Iron Binding Capacity 403 ug/dL Normal 255-450 [facility] Comment on above: Performed By: #### C BC, BENNY, FE and TIBC #### [facility] [address] Transferrin [Mass/Vol] 288 mg/dL Normal 203-362 [facility] Comment on above: Performed By: #### C BC, BENNY, FE and TIBC #### [facility] [address] [place] [address] [place] Leukocytes [#/volume] correc gilson for nucleated erythrocytes in Blood by Automated counOrdered By: Ute Griffin on 08-04-2024 WBC corrected for nucl RBC Auto (Bld) [#/Vol] Leukocytes [#/volume] corrected for nucleated erythrocytes in Blood by Automated coun 3.8-11.6 [facility] Lymphocytes Auto (Bld) [#/Vo l]Ordered By: Ute Griffin on 08-04-2024 Lymphocytes (Bld) [#/Vol] Lymphocytes [#/volume] in Blood by Automated count 1.00-4.8 [facility] Lymphocytes/100 WBC Auto (Bl d)Ordered By: Ute Griffin on 08-04-2024 Lymphocytes/100 WBC (Bld) Lymphocytes/100 leukocytes in Blood by Automated count . [facility] MCH Auto (RBC) [Entitic mass ]Ordered By: Ute Griffin on 08-04-2024 MCH (RBC) [Entitic mass] MCH [Entitic mass] by Automated count 24.7-34.3 [facility] MCHC Auto (RBC) [Mass/Vol]Or dered By: Ute Griffin on 08-04-2024 MCHC (RBC) [Mass/Vol] MCHC [Mass/volume] by Automated count 32.0-35.0 [facility] MCV Auto (RBC) [Entitic vol] Ordered By: Ute Griffin on 08-04-2024 MCV (RBC) [Entitic vol] MCV [Entitic volume] by Automated count 80-100 [facility] Monocytes Auto (Bld) [#/Vol] Ordered By: Ute Griffin on 08-04-2024 Monocytes (Bld) [#/Vol] Automated blood monocyte count 0.0-0.8 [facility] Monocytes/100 WBC Auto (Bld) Ordered By: Ute Griffin on 08-04-2024 Monocytes/100 WBC (Bld) Automated monocyte % . [facility] Neutrophils Auto (Bld) [#/Vo l]Ordered By: Ute Griffin on 08-04-2024 Neutrophils (Bld) [#/Vol] Neutrophils [#/volume] in Blood by Automated count 1.8-7.7 [facility] Neutrophils/100 WBC Auto (Bl d)Ordered By: Ute Griffin on 08-04-2024 Neutrophils/100 WBC (Bld) Automated neutrophil % . [facility] Nucleated erythrocytes [Pres ence] in Blood by Automated countOrdered By: Ute Griffin on 08-04-2024 Nucleated RBC Auto Ql (Bld) Nucleated erythrocytes [Presence] in Blood by Automated count 0-0.5 [facility] Platelet mean volume Auto (B ld) [Entitic vol]Ordered By: Ute Griffin on 08-04-2024 Platelet mean volume (Bld) [Entitic vol] Platelet mean volume [Entitic volume] in Blood by Automated count 6.3-10.7 [facility] Platelets Auto (Bld) [#/Vol] Ordered By: Ute Griffin on 08-04-2024 Platelets (Bld) [#/Vol] Platelets [#/volume] in Blood by Automated count 150-450 [facility] RBC Auto (Bld) [#/Vol]Ordere d By: Ute Griffin on 08-04-2024 RBC (Bld) [#/Vol] Erythrocytes [#/volu me] in Blood by Automated count Low 3.60-5.00 [facility] Serum or plasma iron binding capacity measurement (mass/volume)Ordered By: Ute Griffin on 08-04-2024 Iron binding capacity [Mass/Vol] Iron binding capacity [Mass/volume] in Serum or Plasma 255-450 [facility] Serum or plasma iron saturat ion measurement (mass fraction)Ordered By: Ute Griffin on 08-04-2024 Iron saturation [Mass fraction] Iron saturation [Mass Fraction] in Serum or Plasma Low 20-50 [facility] Transferrin [Mass/volume] in Serum or PlasmaOrdered By: Ute Griffin on 08-04-2024 Transferrin [Mass/Vol] Transferrin [Mass/volume] in Serum or Plasma 203-362 [facility] WBC Auto (Bld) [#/Vol]Ordere d By: Ute Griffin on 08-04-2024 WBC (Bld) [#/Vol] Leukocytes [#/volume ] in Blood by Automated count 3.8-11.6 [facility] EDMUNDO with Reflexon 07-22-2024 EDMUNDO with Reflex Negative Normal Negative [facility] Comment on above: Result Comment: Perf ormed at: CB - [facility] [place] [id number] [place], [place] [id number] Tongue Carrier: Andres Arboleda PhD, Phone: [phone] PERFORMED BY: [place] [address] PATHOLOGIST COMMUTATOR V RING ASSEMBLER JALEN LEON M.D. Performed By: #### A NA CHOICE #### [facility] , Serum or plasma free cefurox lisa measurement (mass/volume)Ordered By: Fernanda Concepcion on 07-22-2024 Cefuroxime free [Mass/Vol] Serum or plasma free cefuroxime measurement (mass/volume) Negative [facility] Comment on above: Performed at: [address] [id number] Director: Andres Arboleda PhD, Phone: [phone] XR thoracic spine 3V*on XR thoracic spine 3V* [facility] [place] [address] [place], [place] [id number] XRay Report Signed Patient: Katy Banuelos MR#: [id number] : 1975 Acct:[id number] Age/Sex: 49 / F ADM Date: 07/22/24 Loc: XD Room: Type: [facility] Attending Dr: Fernanda Concepcion MD Copies to: [...] Mcmillan Jr., D.O.07/22/2024 4:08 PM Dictation Location: [place] [address] Transcribed By: [facility] 07/22/24 1608 Dictated By: Freedom Mcmillan Jr, DO 07/22/24 1607 Signed By: 07/22/24 1608 Normal [facility] Urinalysis macro (dipstick) panel (U)on 07-03-2024 Bilirubin, UA Negative Negative - 4(70) +++ mg/dL [facility] Healthcare Blood, UA Negative Negative - 50 Antelmo/mcL [facility] Clarity, UA Clear [facility] Color, UA Yellow [facility] Glucose, UA Negative Negative - 2000(110) ++++ mg/dL [facility] Interpretation and review of laboratory results Normal [facility] Ketones, UA Negative Negative - 160(16) ++++ mg/dL [facility] Leukocytes, UA Negative Negative - 500+++ Rubio/mcL [facility] Nitrite, UA Negative Negative - Positive [facility] pH, UA 7 5 - 9 [facility] Protein, UA Negative Negative - 2000(20) ++++ mg/dL [facility] Spec Grav, UA 1.025 1 - 1.03 [facility] Urobilinogen, UA 1.0 0.2 - 12 mg/dL [facility] HCG ( test) IA.rapi d Ql (U)Ordered By: Spencer Valadez on 03-04-2024 HCG ( test) Ql (U) Negative [facility] HCG,Urineon 03-04-2024 Beta HCG ( test) Ql (U) Negative Normal [facility] Comment on above: Result Comment: PERF ORMED BY: [facility] [address] [facility] [place] [address] PATHOLOGIST COMMUTATOR V RING ASSEMBLER JALEN LEON M.D. Performed By: #### U HCG ####[facility] [address] [place] [address] [facility] Dewayne 03-04-2024 L Specimen: [id number] Received: 03/04/24 Status: SOUT Req Num: [id number] Spec Type: Surgical Subm Dr: Spencer Valadez MD Tissues: A Duodenum - Biopsy (DUODENUM) B GASTRIC FOR HP (GASTRIC HP) C Colon Biopsy (HEPATIC FLEXURE POLYP) Procedures: HE/6, Gross/Micro L4/3, H PYLORI, IHC First AB Age/ Patient Sex Location Account Attending Physician Katy Banuelos 49/F [id number] Spencer Valadez MD SPEC NUM: [id number] RECD: 03/04/24 STATUS: SOUT REQ NUM: [id number] TWIN: 03/04/24- SUBM DR: Spencer Valadez MD ENTERED: 03/04/24 [facility] DR: SPEC TYPE: Surgical DEPT: S ORDERED: [...] celiac and rule out H. pylori. Specimen: [id number] Received: 03/04/24 Status: TEJAL Dalal Num: [id number] Spec Type: Surgical Subm Dr: Spencer Valadez MD Tissues: A Duodenum - Biopsy (DUODENUM) B GASTRIC FOR HP (GASTRIC HP) C Colon Biopsy (HEPATIC FLEXURE POLYP) Procedures: HE/6, Gross/Micro L4/3, H PYLORI, IHC First AB Patient: Katy Banuelos [id number] (Continued) Specimen: [id number] Received: 03/04/24 (Continued) Signed (signature on file) Jorge Albrecht MD 03/06/24 1548 Specimen: Received: 03/04/24 Status: TEJAL Dalal Num: [id number] Spec Type: Surgical Subm Dr: Spencer Valadez MD Tissues: A Duodenum - Biopsy (DUODENUM) B GASTRIC FOR HP (GASTRIC HP) C Colon Biopsy (HEPATIC FLEXURE POLYP) Procedures: HE/6, Gross/Micro L4/3, H PYLORI, IHC First AB Patient: Katy Banuelos [id number] (Continued) Specimen: [id number] Received: 03/04/24 (Continued) Gross Description Received are 3 formalin [...] Further labeled hepatic flexure polyp are 3 ahtfield mucosal tissue fragments admixed with mucus and possible vegetable matter ranging from 0.9 x 0.3 x 0.2 cm to 0.4 x 0.2 x 0.1 cm, entirely submitted in C1. TW CPT Codes 93220 X.3 72529 Specimen: [id number] Received: 03/04/24 Status: TEJAL Dalal Num: [id number] Spec Type: Surgical Subm Dr: Spencer Valadez MD Tissues: A Duodenum - Biopsy (DUODENUM) B GASTRIC FOR HP (GASTRIC HP) C Colon Biopsy (HEPATIC FLEXURE POLYP) Procedures: HE/6, Gross/Micro L4/3, H PYLORI, IHC First AB Patient: Katy Banuelos [id number] (Continued) Signed (signature on file) Carlos A-Sundeep Albrecht MD 03/06/24 1548 Normal [facility] Heart and Vascular Office/Cl inic Noteon 02-18-2024 Heart and Vascular Office/Clinic Note Chief Complaint vascular patient here to establish care History of Present Illness Katy Banuelos is a [id number] female presents to the office to establish [...] August 2022, she underwent an echocardiogram at [facility], which yielded normal results. Additionally, she underwent [...] with voice recognition artificial intelligence software, specifically [employer], [employer] and or [employer]. Substitutions may have occurred due to the inherent limitations of voice recognition and artificial intelligence software. ATTESTATION: Documentation services were performed after patient or guardian consented to allow [employer] to record this visit. CASEY market risk specialist and provider reviewed before signing. CASEY: [...] None. Alc (more content not included)... Normal [facility] Comment on above: Result Comment: Elec tronically Signed By: Sandy DELEON, Girma Dawson\.br\Date and Time Signed: 02/18/24 10:07 EDT\.br\Electronically Co-Signed By: Diane Wilks\.br\Date and Time Co-Signed: 01/30/24 17:05 EDT CHEMISTRYOrdered [...] 02-06-2024 Albumin [Mass/Vol] 4.3 g/dL Normal 3.3-5.0 [facility] Comment on above: Performed By: #### 2 [id number] #### [facility] [address] [place] [address] Albumin/Globulin (S) [Mass conc ratio] 2.2 Normal 1.1-2.2 [facility] Comment on above: Performed By: #### 2 [id number] #### [facility] [address] [place] [address] ALP [Catalytic activity/Vol] 55 Int._Unit/L Normal 21-98 [facility] Comment on above: Performed By: #### 2 [id number] #### [facility] [address] [place] [address] ALT No additional P-5'-P [Catalytic activity/Vol] 11 Int._Unit/L Normal 6-46 [facility] Comment on above: Performed By: #### 2 [id number] #### [facility] [address] [place] [address] Anion gap [Moles/Vol] 8 mmol/L Normal 6-16 [facility] Comment on above: Performed By: #### 2 [id number] #### [facility] [address] [place] [address] AST [Catalytic activity/Vol] 17 Int._Unit/L Normal 5-43 [facility] Comment on above: Performed By: #### 2 384192 #### [facility] [address] [place] [address] Bilirubin [Mass/Vol] 0.7 mg/dL Normal 0.0-1.1 [facility] Comment on above: Performed By: #### 2 814043 #### [facility] [address] [place] [address] Calcium [Mass/Vol] 8.8 mg/dL Low 8.9-11.1 [facility] Comment on above: Performed By: #### 2 868574 #### [facility] [address] [place] [address] Chloride [Moles/Vol] 105 mmol/L Normal 101-111 [facility] Comment on above: Performed By: #### 2 862888 #### [facility] [address] [place] [address] CO2 [Moles/Vol] 29 mmol/L Normal 21-31 [facility] Comment on above: Performed By: #### 2 845144 #### [facility] [address] [place] [address] Creatinine [Mass/Vol] 0.7 mg/dL Normal 0.5-1.3 [facility] Comment on above: Performed By: #### 2 179695 #### [facility] [address] [place] [address] Globulin (S) [Mass/Vol] 2.0 g/dL Normal 1.4-4.0 [facility] Comment on above: Performed By: #### 2 175914 #### [facility] [address] [place] [address] Glucose [Mass/Vol] 85 mg/dL Normal 55-199 [facility] Comment on above: Performed By: #### 2 406211 #### [facility] [address] [place] [address] Potassium [Moles/Vol] 4.2 mmol/L Normal 3.5-5.3 [facility] Comment on above: Performed By: #### 2 932070 #### [facility] [address] [place] [address] Protein [Mass/Vol] 6.3 g/dL Normal 6.0-7.8 [facility] Comment on above: Performed By: #### 2 637682 #### [facility] [address] [place] [address] Sodium [Moles/Vol] 138 mmol/L Normal 135-145 [facility] Comment on above: Performed By: #### 2 497232 #### [facility] [address] [place] [address] Urea nitrogen [Mass/Vol] 13 mg/dL Normal 5-21 [facility] Comment on above: Performed By: #### 2 317245 #### [facility] [address] [place] [address] Urea nitrogen/Creatinine [Mass ratio] 19 No Units Normal 10-20 [facility] Comment on above: Performed By: #### 2 [id number] #### [facility] [address] [place] [address] CRPon 02-06-2024 CRP [Mass/Vol] mg/L Normal <=1.9 [facility] Comment on above: Performed By: #### 2 277264 #### [facility] [address] [place] [address] Consent for Treatmenton 01-16 Consent for Treatment [id number]#1.00TIFF Normal [facility] HEMATOLOGYOrdered By: Vince Dutton on 02-06-2024 ESR (Bld) [Velocity] 3 mm/h Normal 0 - 34 mm/hr [facility] HemeAutoSS Lipid Panelon 02-06-2024 Cholesterol [Mass/Vol] 166 mg/dL Normal 120-200 [facility] Comment on above: Performed By: #### 2 [id number] #### [facility] [address] [place] [address] Cholesterol in HDL [Mass/Vol] 62 mg/dL Invalid Interpretation Code [facility] Comment on above: Result Comment: '>= 60 LOW RISK' '<= 40 HIGH RISK' Performed By: #### 2 839427 #### [facility] [address] [place] [address] Cholesterol in LDL [Mass/Vol] 103 mg/dL Normal <=129 [facility] Comment on above: Performed By: #### 2 311821 #### [facility] [address] [place] [address] Cholesterol in VLDL [Mass/Vol] 9 mg/dL Normal 7-40 [facility] Comment on above: Performed By: #### 2 447280 #### [facility] [address] [place] [address] Triglyceride [Mass/Vol] 46 mg/dL Normal <=149 [facility] Comment on above: Performed By: #### 2 409245 #### [facility] [address] [place] [address] Sed Rate Automatedon 024 ESR (Bld) [Velocity] 3 mm/h Normal 0-[address] [facility] Comment on above: Performed By: #### 1 [id number] #### [facility] [address] [place] [address] US Carotid Duplex Bilateralo n 02-06-2024 US Carotid Duplex Bilateral Exam Date/Time: [...] Diagnostic Criteria Committee. Vascular Medicine 2020; https://journals.sagepub.c om/doi/full/10.1177/861823 [id number] Ordering Provider: Girma Delgado FINAL REPORT Dictated: 02/06/2024 4:04 pm Crystal Goncalves Signed (Electronic Signature): 02/06/2024 4:04 pm Signed by: Crystal Goncalves Transcribed by: MARKUS Technologist: MAUREEN Technical Comments Velocities Right Vert. Antegrade Yes Velocities Left Vert. Antegrade Yes Normal [facility] eGFRon 02-06-2024 eGFR 107 mL/min/1.73 m2 Normal >=59 [facility] Comment on above: Order Comment: Order added by Discern Expert. Performed By: #### 1 [id number] #### [facility] [address] [place] [address] Formson 01-31-2024 Forms [id number]#1.00TIFF Normal [facility] Consent for Treatmenton 01-15 Consent for Treatment [id number]#1.00TIFF Normal [facility] Outside Recordson 01-30-2024 Outside Records [id number]#1.00TIFF Normal [facility] Physician Orderon 01-30-2024 Physician Order [id number]#1.00TIFF Normal [facility] Echocardiographyon 4 Echocardiography [id number]#1.00TIFF Normal [facility] Outside Radiologyon 01-09-20 24 Outside Radiology [id number]#1.00TIFF Normal [facility] Referrals Officeon 4 Referrals Office [id number]#1.00TIFF Normal [facility] Referrals Office [id number]#1.00TIFF Normal [facility] IgA [Mass/volume] in Serum o r PlasmaOrdered By: Candelario Johansen on 10-08-2023 IgA [Mass/Vol] 125 mg/dL 87-352 [facility] Comment on above: Performed at: [address] [id number] Director: Andres Arboleda PhD, Phone: [phone] No Panel InformationOrdered By: Candelario Johansen on 10-08-2023 Endomysial IgA Antibody Negative Negative [facility] Serum gliadin peptide IgA an tibody assay (units/volume)Ordered By: Candelario Johansen on 10-08-2023 Gliadin peptide IgA Qn (S) 8 units 0-19 [facility] Comment on above: Negative 0 - 19 Weak Positive 20 - 30 Moderate to Strong Positive >30 Serum gliadin peptide IgG an tibody assay (units/volume)Ordered By: Candelario Johansen on 10-08-2023 Gliadin peptide IgG Qn (S) 5 units 0-19 [facility] Comment on above: Negative 0 - 19 Weak Positive 20 - 30 Moderate to Strong Positive >30 Serum tissue transglutaminas e (tTG) IgA antibody assay (units/volume)Ordered By: Candelario Johansen on 10-08-2023 tTG IgA Qn (S) <2 U/mL 0-3 [facility] Comment on above: Negative 0 - 3 Weak Positive 4 - 10 Positive >10 Tissue Transglutaminase (tTG) has been identified as the endomysial antigen. Studies have demonstr- ated that endomysial IgA antibodies have over 99% specificity for gluten sensitive enteropathy. Serum tissue transglutaminas e (tTG) IgG antibody assay (units/volume)Ordered By: Candelraio Johansen on 10-08-2023 tTG IgG Qn (S) 5 U/mL 0-5 [facility] Comment on above: Negative 0 - 5 Weak Positive 6 - 9 Positive >9 Thyrotropin [Units/volume] i n Serum or PlasmaOrdered By: Candelario Johnasen on 10-08-2023 TSH Qn 0.60 m[IU]/L 0.45-5.33 [facility] AFB cultureOrdered By: Livier Hernandez on 09-14-2023 Mycobacterium sp identified Org specific cx Nom (Unsp spec) [facility] Fungal cultureOrdered By: Milagros Hernandez on 09-14-2023 Fungus identified Cx Nom (Unsp spec) [facility] Fungus # 2 identified in Uns pecified specimen by CultureOrdered By: Marta Hernandez on 09-14-2023 Fungus identified # 2 Cx Nom (Unsp spec) N/A [facility] Fungus # 3 identified in Uns pecified specimen by CultureOrdered By: Marta Hernandez on 09-14-2023 Fungus identified # 3 Cx Nom (Unsp spec) N/A [facility] Fungus # 4 identified in Uns pecified specimen by CultureOrdered By: Marta Hernandez on 09-14-2023 Fungus identified # 4 Cx Nom (Unsp spec) N/A [facility] Gram stain for investigation of transfusion reactionOrdered By: Marta Hernandez on 09-14-2023 Microscopic observation Gram stain Nom (Unsp spec) Haemophilus influenzae [facility] Microscopic observation Gram stain Nom (Unsp spec) Haemophilus influenzae [facility] No Panel InformationOrdered By: Matra Hernandez on 09-14-2023 Mycology Susceptibility N/A [facility] XR hand RT min 3V*on 023 XR hand RT min 3V* [facility] [email or web address] Other XR hand RT min 3V* [facility] [email or web address] Other XR hand RT min 3V* [address] [place] [address] [employer] [facility] [email or web address] Other XR hand RT min 3V* [place] [address] [employer] Other XR hand RT min 3V* XRay Report [employer] Other XR hand RT min 3V* Signed [employer] Other XR hand RT min 3V* Patient: Katy Marinelli MR#: [id number] [employer] Other XR hand RT min 3V* [id number] [employer] Other XR hand RT min 3V* : 1975 Acct:[id number] [employer] Other XR hand RT min 3V* Age/Sex: 48 / F ADM Date: 09/04/23 [employer] Other XR hand RT min 3V* [place] [facility] [place]: Type : [facility] [employer] Other XR hand RT min 3V* Attending Dr: Prashant Mitchell DO [employer] Other XR hand RT min 3V* Copies to: Prashant butler, DO [employer] Other XR hand RT min 3V* Ordering Provider: Elena Mitchell, DO [employer] Other XR hand RT min 3V* Date of Service: 09/04/23 [employer] Other XR hand RT min 3V* [id number]) XR/XR hand RT min 3V*: Right hand pain [employer] Other XR hand RT min 3V* XR hand RT min 3V* 09/04/2023 8:17 AM [employer] Other XR hand RT min 3V* SIGNS AND SYMPTOMS: Hyperextension injury to right thumb [employer] Other XR hand RT min 3V* PROTOCOL: Frontal, lateral, and oblique radiographs of the right hand [employer] Other XR hand RT min 3V* COMPARISON: None [employer] Other XR hand RT min 3V* FINDINGS: [employer] Other XR hand RT min 3V* The bones are in edmundo tomic alignment. The joint spaces are preserved. There is no evidence of [employer] Other XR hand RT min 3V* fracture or dislocat ion. No significant soft tissue swelling. [employer] Other XR hand RT min 3V* X R/XR hand RT min 3V* [employer] Other XR hand RT min 3V* IMPRESSION: [employer] Other XR hand RT min 3V* No acute bony injury. [employer] Other XR hand RT min 3V* No significant soft tissue swelling. [employer] Other XR hand RT min 3V* Impression dictated by: Jermain Sultana M.D.09/04/2023 10:15 AM [employer] Other XR hand RT min 3V* Dictation Location: [place] [address] [employer] Other XR hand RT min 3V* Transcribed By: PAKO 09/04/23 1015 [employer] Other XR hand RT min 3V* Dictated By: Jermain Sultana II, MD 09/04/23 0951 [employer] Other XR hand RT min 3V* Signed By: [employer] Other XR hand RT min 3V* 09/04/23 1015 [facility] [employer] Other Plan of Care - PT/OT/Speecho n 07-25-2023 Plan of Care - PT/OT/Speech [id number]#1.00TIFF Normal [facility] Alanine aminotransferase [En zymatic activity/volume] in Serum or PlasmaOrdered By: Fernanda Concepcion on 05-25-2023 ALT [Catalytic activity/Vol] 18 U/L 7-52 [facility] Albumin [Mass/volume] in Ser um or Plasma by Bromocresol green (BCG) dye binding methoOrdered By: Fernanda Concepcion on 05-25-2023 Albumin BCG dye [Mass/Vol] 4.7 g/dL 3.5-5.7 [facility] Alkaline phosphatase [Enzyma tic activity/volume] in Serum or PlasmaOrdered By: Fernanda Concepcion on 05-25-2023 ALP [Catalytic activity/Vol] 51 U/L 34-104 [facility] Aspartate aminotransferase [ Enzymatic activity/volume] in Serum or PlasmaOrdered By: Fernanda Concepcion on 05-25-2023 AST [Catalytic activity/Vol] 20 U/L 13-39 [facility] Basophils Auto (Bld) [#/Vol] Ordered By: Fernanda Concepcion on 05-25-2023 Basophils (Bld) [#/Vol] 0.1 10*3/uL 0.0-0.2 [facility] Basophils/100 WBC Auto (Bld) Ordered By: Fernanda Concepcion on 05-25-2023 Basophils/100 WBC (Bld) 1.1 % . [facility] Bilirubin.total [Mass/volume ] in Serum or PlasmaOrdered By: Fernanda Concepcion on 05-25-2023 Bilirubin [Mass/Vol] 0.5 mg/dL 0.3-1.0 [facility] Calcium [Mass/volume] in Ser um or PlasmaOrdered By: Fernanda Concepcion on 05-25-2023 Calcium [Mass/Vol] 9.3 mg/dL 8.6-10.3 [facility] Carbon dioxide, total [Moles /volume] in Serum or PlasmaOrdered By: Fernanda Concepcion on 05-25-2023 CO2 [Moles/Vol] 31.4 mmol/L 21.0-31.0 [facility] Chloride [Moles/volume] in S leonard or PlasmaOrdered By: Fernanda Concepcion on 05-25-2023 Chloride [Moles/Vol] 103 mmol/L 98-107 [facility] Creatinine [Mass/volume] in Serum or PlasmaOrdered By: Fernanda Concepcion on 05-25-2023 Creatinine [Mass/Vol] 0.70 mg/dL 0.60-1.20 [facility] Eosinophils Auto (Bld) [#/Vo l]Ordered By: Fernanda Concepcion on 05-25-2023 Eosinophils (Bld) [#/Vol] 0.1 10*3/uL 0.0-0.45 [facility] Eosinophils/100 WBC Auto (Bl d)Ordered By: Fernanda Concepcion on 05-25-2023 Eosinophils/100 WBC (Bld) 0.7 % . [facility] Erythrocyte distribution wid th Auto (RBC) [Ratio]Ordered By: Fernanda Concepcion on 05-25-2023 Erythrocyte distribution width (RBC) [Ratio] 13.3 % 11.9-15.3 [facility] Globulin Calc (S) [Mass/Vol] Ordered By: Fernanda Concepcion on 05-25-2023 Globulin (S) [Mass/Vol] 1.7 g/dL [facility] Glucose [Mass/volume] in Ser um or PlasmaOrdered By: Fernanda Concepcion on 05-25-2023 Glucose [Mass/Vol] 104 mg/dL 70-100 [facility] Comment on above: ADA recommended refe rence rangeRandom Glucose Reference Range is dependent on time and content of last meal. Glucose of more than 200 mg/dL in a nonstressed, ambulatory subject supports the diagnosis of Diabetes Mellitus. Hematocrit Auto (Bld) [Volum e fraction]Ordered By: Fernanda Concepcion on 05-25-2023 Hematocrit (Bld) [Volume fraction] 39.3 % 34.0-46.4 [facility] Hemoglobin [Mass/volume] in BloodOrdered By: Fernanda Concepcion on 05-25-2023 Hemoglobin (Bld) [Mass/Vol] 13.5 g/dL 11.8-15.4 [facility] Leukocytes [#/volume] correc gilson for nucleated erythrocytes in Blood by Automated counOrdered By: Fernanda Concepcion on 05-25-2023 WBC corrected for nucl RBC Auto (Bld) [#/Vol] 8.2 10*3/uL 3.8-11.6 [facility] Lymphocytes Auto (Bld) [#/Vo l]Ordered By: Fernanda Concepcion on 05-25-2023 Lymphocytes (Bld) [#/Vol] 1.7 10*3/uL 1.00-4.8 [facility] Lymphocytes/100 WBC Auto (Bl d)Ordered By: Fernanda Concepcion on 05-25-2023 Lymphocytes/100 WBC (Bld) 20.5 % . [facility] MCH Auto (RBC) [Entitic mass ]Ordered By: Fernanda Concepcion on 05-25-2023 MCH (RBC) [Entitic mass] 35.3 pg 24.7-34.3 [facility] MCHC Auto (RBC) [Mass/Vol]Or dered By: Fernanda Concepcion on 05-25-2023 MCHC (RBC) [Mass/Vol] 34.4 g/dL 32.0-35.0 [facility] MCV Auto (RBC) [Entitic vol] Ordered By: Fernanda Concepcion on 05-25-2023 MCV (RBC) [Entitic vol] 102.7 fL 80-100 [facility] Monocytes Auto (Bld) [#/Vol] Ordered By: Fernanda Concepcion on 05-25-2023 Monocytes (Bld) [#/Vol] 0.4 10*3/uL 0.0-0.8 [facility] Monocytes/100 WBC Auto (Bld) Ordered By: Fernanda Concepcion on 05-25-2023 Monocytes/100 WBC (Bld) 4.8 % . [facility] Neutrophils Auto (Bld) [#/Vo l]Ordered By: Fernanda Concepcion on 05-25-2023 Neutrophils (Bld) [#/Vol] 6.0 10*3/uL 1.8-7.7 [facility] Neutrophils/100 WBC Auto (Bl d)Ordered By: Fernanda Concepcion on 05-25-2023 Neutrophils/100 WBC (Bld) 72.9 % . [facility] No Panel InformationOrdered By: Fernanda Concepcion on 05-25-2023 Estimated GFR (CKD-EPI) > 60.0 mL/Min [facility] Creatinine Clearance (Chem N/A [facility] Nucleated erythrocytes [Pres ence] in Blood by Automated countOrdered By: Fernanda Concepcion on 05-25-2023 Nucleated RBC Auto Ql (Bld) 0.0 /100{WBC} 0-0.5 [facility] Platelet mean volume Auto (B ld) [Entitic vol]Ordered By: Fernanda Concepcion on 05-25-2023 Platelet mean volume (Bld) [Entitic vol] 7.8 fL 6.3-10.7 [facility] Platelets Auto (Bld) [#/Vol] Ordered By: Fernanda Concepcion on 05-25-2023 Platelets (Bld) [#/Vol] 244 10*3/uL 150-450 [facility] Potassium [Moles/volume] in Serum or PlasmaOrdered By: Fernanda Concepcion on 05-25-2023 Potassium [Moles/Vol] 3.6 mmol/L 3.5-5.1 [facility] Protein [Mass/volume] in Ser um or PlasmaOrdered By: Fernanda Concepcion on 05-25-2023 Protein [Mass/Vol] 6.4 g/dL 6.4-8.9 [facility] RBC Auto (Bld) [#/Vol]Ordere d By: Fernanda Concepcion on 05-25-2023 RBC (Bld) [#/Vol] 3.83 10*6/uL 3.60-5.00 [facility] Serum or plasma albumin/glob ulin mass ratioOrdered By: Fernanda Concepcion on 05-25-2023 Albumin/Globulin [Mass ratio] 2.8 {ratio} [facility] Serum or plasma anion gap de terminationOrdered By: Fernanda Concepcion on 05-25-2023 Anion gap [Moles/Vol] 8.2 mmol/L 6.0-15.0 [facility] Sodium [Moles/volume] in Ser um or PlasmaOrdered By: Fernanda Concepcion on 05-25-2023 Sodium [Moles/Vol] 139 mmol/L 136-145 [facility] Thyrotropin [Units/volume] i n Serum or PlasmaOrdered By: Fernanda Concepcion on 05-25-2023 TSH Qn 0.35 m[IU]/L 0.45-5.33 [facility] Urea nitrogen [Mass/volume] in Serum or PlasmaOrdered By: Fernanda Concepcion on 05-25-2023 Urea nitrogen [Mass/Vol] 10 mg/dL 7-25 [facility] WBC Auto (Bld) [#/Vol]Ordere d By: Fernanda Concepcion on 05-25-2023 WBC (Bld) [#/Vol] 8.2 10*3/uL 3.8-11.6 [facility] Ambulatory Visit Summaryon 0 05-16-2023 Ambulatory Visit Summary KATY BANUELOS :1975 Visit Date:05/16/2023 Ambulatory Visit Instructions Your Diagnosis Mixed incontinence Smoker Tests Performed Urnls Dip Stick Auto w/o Microscopy POC 06273 Your Care Team Attending Physician - GIANNA [...] GIANNA KAPLAN PA-C Where: [facility] Invalid Interpretation Code [address] [place] [address]- \. br\ Sunday 9:30 AM EDT \.br\ With: GIANNA KAPLAN PA-C\.br\ Where: [facility] Patient Educationon 05-16-20 Patient Education Obstetrics and Gynec ology Kegel [...] provider. Document Revised: 01/12/2022 Document Reviewed: 01/12/2022 [employer] Patient Education ? 2022 [employer] Pulmonary Medicine Steps to Quit Smoking [...] short sessi (more content not included)... Normal [facility] Urology Office/Clinic Noteon 05-16-2023 Urology Office/Clinic [...] it about 5-7 seconds. 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 Says it hurts when she does that. Ordered: 61031 EMG anal/[place]inct[place] no needle 80129 Biofeedback training, perineal muscles, anorectal 28082 Anorectal Manometry 00913 ELECTRICAL STIMULATION 22501 Urnls Dip Stick Auto w/o Microscopy POC 04677 2. Pelvic pain (R10.2: Pelvic and perineal pain) Pt requested rx for Ibuprofen 800mg as she has been taking 4 ibuprofen 200mg's at a time to help w pelvic pain. was sent to [facility] today for pain. Discussed the medication side [...] milk, # 30 tab(s), Refills(s) 3, Pharmacy: [facility]/pharmacy #[id number], 168, cm, 05/16/23 9:58:00 EDT, Height/Length Dosing, 52, kg, 05/16/23 9:58:00 EDT, Weight Dosing I am at a bit of a loss with this pt. She isn't making progress despite several PFPT appts and several weeks of attempting the exercises at home. Matters are complicated by longstanding constipation and pelvic pain. I am going to reach out to [facility] and see if they would feel comfortable seeing this pt/have other approach. Will stop the Detrol for now so we have more of a 'clean slate'. Hoping if we can get the constipation under control and the pelvic floor strengthened then the pain and urinary sx will improve. F/u pending discussion w [facility]. Follow-up With When Contact Information GIANNA KAPLAN PA-C, URL [address] [place] [address] [phone] Patient Education Steps to Quit Smoking Kegel Exercises Documentation recorded by the scribe Shy Lara accurately reflects the services(s) I performed and decisions made by me. Authenticated by Gianna Kaplan PA-C on 05/16/2023 11:22:46. I, Shy Lara, personally scribed for Gianna Kaplan PA-C on 05/16/2023 10:24:59. . 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 Normal [facility] Comment on above: Result Comment: Elec tronically Signed By: GIANNA KAPLAN PA-C\.br\Date and Time Signed: 05/16/23 11:34 EDT\.br\Electronically Co-Signed By: Shy Lara\.br\Date and Time Co-Signed: 05/16/23 10:27 EDT Patient Educationon 05-09-20 Patient Education Normal [facility] EMG Electromyographyon 05-07 EMG Electromyography [id number]:127 Normal [facility] Ambulatory Visit Summaryon 0 05-02-2023 Ambulatory Visit Summary CHADKATY GARCIA :1975 Visit Date:05/02/2023 Ambulatory Visit Instructions Your Diagnosis Mixed incontinence Smoker Tests Performed Urnls Dip Stick Auto w/o Microscopy POC 33163 Your Care Team Attending Physician - GIANNA [...] GIANNA KAPLAN PA-C Where: [facility] Invalid Interpretation Code [address] [place] [place] [address]- \. br\ Sunday 9:30 AM EDT \.br\ With: GIANNA KAPLAN PA-C\.br\ Where: [facility] Patient Educationon 05-02-20 Patient Education [...] provider. Document Revised: 01/12/2022 Document Reviewed: 01/12/2022 [employer] Patient Education ? 2022 [email or web address]. Urology Urinary Incontinence Urinary incontinence refers to [...] and bladder (more content not included)... Normal [facility] Urology Office/Clinic Noteon 05-02-2023 Urology Office/Clinic [...] Contact Information EJ ELLIS, GIANNA Jimenez, URL [address] [place] [address] [phone] Additional Instructions: PFPT #3 on 05/09/23 Patient Education Kegel Exercises Urinary Incontinence Documentation recorded by the scribbarbara Lara accurately reflects the services(s) I performed [...] (05/02/23 10:46:00) (more content not included)... Normal [facility] Comment on above: Result Comment: Elec tronically Signed By: GIANNA KAPLAN PA-C\.br\Date and Time Signed: 05/02/23 11:20 EDT\.br\Electronically Co-Signed By: Shy Lara\.br\Date and Time Co-Signed: 05/02/23 11:10 EDT Consent for Procedure/Surger yon 04-26-2023 Consent for Procedure/Surgery [id number]:127 Normal [facility] EMG Electromyographyon 04-26 EMG Electromyography [id number]:127 Normal [facility] Ambulatory Visit Summaryon 0 04-25-2023 Ambulatory Visit Summary KATY BANUELOS :1975 Visit Date:04/25/2023 Ambulatory Visit Instructions Your Diagnosis Mixed incontinence Smoker Tests Performed Urnls Dip Stick Auto w/o Microscopy POC 80824 Your Care Team Attending Physician - GIANNA [...] GIANNA KAPLAN PA-C Where: [facility] [place] Invalid Interpretation Code [address] [place] [address] \. br\ Sunday 9:30 AM EDT \.br\ With: GIANNA KAPLAN PA-C\.br\ Where: [facility] Patient Educationon 04-25-20 Patient Education Urology Pelvic Floor Dysfunction, Female [...] pelvic muscle tension or spasms. ? Take ilpi-gfi-oohgurx and prescription medicines only as told by [...] days (constipa (more content not included)... Normal [facility] Urology Office/Clinic Noteon 04-25-2023 Urology Office/Clinic [...] When Contact Information GIANNA KAPLAN PA-C, URL [address] [place] [address] [phone] Additional Instructions: PFPT #2 on 05/02/23 Patient Education Pelvic Floor Dysfunction, Female Documentation recorded by the scribbarbara Lara accurately reflects the services(s) I performed and decisions made by me. Authenticated by Gianna Kaplan PA-C on 04/25/2023 10:25:07. I, Shy Lara, personally scribed for Gianna [...] Specific Grav (more content not included)... Normal [facility] Comment on above: Result Comment: Elec tronically Signed By: GIANNA KAPLAN PA-C\.br\Date and Time Signed: 04/25/23 10:25 EDT\.br\Electronically Co-Signed By: Shy Lara\.br\Date and Time Co-Signed: 04/25/23 10:22 EDT VIT D 1 25 DIHYDROXYon 12-24 Calcitriol(1,25 di-OH Vit D) 55.9 pg/mL Normal 24.8-81.5 [facility] Comment on above: Performed By: #### V [id number] #### [facility] [address] [place] [address] Dr. Barbra Albrecht FSHon 12-22-2022 FSH 4.7 mIU/mL Normal [facility] Comment on above: Result Comment: Adul t Female: Follicular phase 3.5 - 12.5 Ovulation phase 4.7 - 21.5 Luteal phase 1.7 - 7.7 Postmenopausal 25.8 - 134.8 Performed By: #### L [facility] #### [facility] [address] [place] [address] Dr. Barbra Albrecht LUTEINIZING HORMONE (LH)on 0 12-22-2022 LH 5.6 mIU/mL Normal [facility] Comment on above: Result Comment: Adul t Female: Follicular phase 2.4 - 12.6 Ovulation phase 14.0 - 95.6 Luteal phase 1.0 - 11.4 Postmenopausal 7.7 - 58.5 Performed By: #### F ERR, FETIBC, VITB12 #### [facility] [address] [place] [address] Dr. Barbra Albrecht CBC AUTO DIFFon 12-21-2022 BASO # 0.1 103/ul Normal 0.0-0.1 [facility] Comment on above: Performed By: #### F ERR, FETIBC, VITB12 #### [facility] [address] [place] [address] Dr. Barbra Albrecht Basophils/100 WBC (Bld) 0.5 % Normal 0.2-2.0 [facility] Comment on above: Performed By: #### F ERR, FETIBC, VITB12 #### [facility] [address] [place] [address] Dr. Barbra Albrecht EO # 0.0 103/ul Normal 0.0-0.7 [facility] Comment on above: Performed By: #### F ERR, FETIBC, VITB12 #### [facility] [address] [place] [address] Dr. Barbra Albrecht Eosinophils/100 WBC (Bld) 0.4 % Critically low 0.9-7.0 [facility] Comment on above: Performed By: #### F ERR, FETIBC, VITB12 #### [facility] [address] [place] [address] Dr. Barbra Albrecht Erythrocyte distribution width (RBC) [Ratio] 12.2 % Normal 11.0-15.0 [facility] Comment on above: Performed By: #### F ERR, FETIBC, VITB12 #### [facility] [address] [place] [address] Dr. Barbra Albrecht Hematocrit (Bld) [Volume fraction] 39.2 % Normal 36.0-48.0 [facility] Comment on above: Performed By: #### F ERR, FETIBC, VITB12 #### [facility] [address] [place] [address] Dr. Barbra Albrecht Hemoglobin (Bld) [Mass/Vol] 13.5 g/dL Normal 12.0-16.0 [facility] Comment on above: Performed By: #### F ERR, FETIBC, VITB12 #### [facility] [address] [place] [address] Dr. Barbra Albrecht IG # 0.05 10e3/ul Critically high 0.00-0.03 [facility] Comment on above: Performed By: #### F ERR, FETIBC, VITB12 #### [facility] [address] [place] [address] Dr. Barbra Albrecht IG % 0.5 % Normal 0.0-0.5 [facility] Comment on above: Performed By: #### F ERR, FETIBC, VITB12 #### [facility] [address] [place] [address] Dr. Barbra Albrecht LYMPH # 1.4 103/ul Normal 1.2-3.8 [facility] Comment on above: Performed By: #### F ERR, FETIBC, VITB12 #### [facility] [address] [place] [address] Dr. Barbra Albrecht Lymphocytes/100 WBC (Bld) 15.1 % Critically low 20.5-60.0 [facility] Comment on above: Performed By: #### F ERR, FETIBC, VITB12 #### [facility] [address] [place] [address] Dr. Barbra Albrecht MANUAL DIFF REQ NO Normal [facility] Comment on above: Performed By: #### F ERR, FETIBC, VITB12 #### [facility] [address] [place] [address] Dr. Barbra Albrecht MCH (RBC) [Entitic mass] 34.5 pg Critically high 26.7-34.0 [facility] Comment on above: Performed By: #### F ERR, FETIBC, VITB12 #### [facility] [address] [place] [address] Dr. Barbra Albrecht MCHC (RBC) [Mass/Vol] 34.4 g/dL Normal 29.9-35.2 [facility] Comment on above: Performed By: #### F ERR, FETIBC, VITB12 #### [facility] [address] [place] [address] Dr. Barbra Albrecht MCV (RBC) [Entitic vol] 100.3 fL Critically high 81.0-99.0 [facility] Comment on above: Performed By: #### F ERR, FETIBC, VITB12 #### [facility] [address] [place] [address] Dr. Barbra Albrecht MONO # 0.4 103/ul Normal 0.3-0.8 [facility] Comment on above: Performed By: #### F ERR, FETIBC, VITB12 #### [facility] [address] [place] [address] Dr. Barbra Albrecht Monocytes/100 WBC (Bld) 4.7 % Normal 1.7-12.0 [facility] Comment on above: Performed By: #### F ERR, FETIBC, VITB12 #### [facility] [address] [place] [address] Dr. Barbra Albrecht NEUT # 7.4 103/ul Critically high 1.4-6.5 [facility] Comment on above: Performed By: #### F ERR, FETIBC, VITB12 #### [facility] [address] [place] [address] Dr. Barbra Albrecht Neutrophils/100 WBC (Bld) 78.8 % Critically high 43.0-75.0 [facility] Comment on above: Performed By: #### F ERR, FETIBC, VITB12 #### [facility] [address] [place] [address] Dr. Barbra Albrecht Platelet mean volume (Bld) [Entitic vol] 9.1 fL Critically low 9.5-13.5 [facility] Comment on above: Performed By: #### F ERR, FETIBC, VITB12 #### [facility] [address] [place] [address] Dr. Barbra Albrecht PLT 256 103/ul Normal 150-450 [facility] Comment on above: Performed By: #### F ERR, FETIBC, VITB12 #### [facility] [address] [place] [address] Dr. Barbra Albrecht RBC 3.91 106/ul Critically low 4.20-5.40 [facility] [place] [facility] Comment on above: Performed By: #### F ERR, FETIBC, VITB12 #### [facility] [address] [place] [address] Dr. Barbra Albrecht WBC 9.4 103/ul Normal 4.0-11.0 [facility] Comment on above: Performed By: #### F ERR, FETIBC, VITB12 #### [facility] [address] [place] [address] Dr. Barbra Albrecht FERRITINon 12-21-2022 Ferritin [Mass/Vol] 58.0 ng/mL Normal 6.2-137.0 [facility] Comment on above: Performed By: #### F ERR, FETIBC, VITB12 #### [facility] [address] [place] [address] Dr. Barbra Albrecht IRON AND TIBCon 12-21-2022 % SATURATION 40.5 % Normal [facility] Comment on above: Performed By: #### F ERR, FETIBC, VITB12 #### [facility] [address] [place] [address] Dr. Barbra Albrecht Iron [Mass/Vol] 134.0 ug/dL Normal 50.0-170.0 [facility] Comment on above: Performed By: #### F ERR, FETIBC, VITB12 #### [facility] [address] [place], [place] [id number] Dr. Barbra Albrecht TIBC DIRECT 331.0 ug/dL Normal 250.0-450. 0 [facility] Comment on above: Performed By: #### F ERR, FETIBC, VITB12 #### [facility] [address] [place] [address] Dr. Barbra Albrecht VITAMIN B12on 12-21-2022 Cobalamin (Vitamin B12) [Mass/Vol] 799.0 pg/mL Normal 193.0-986. 0 [facility] Comment on above: Performed By: #### F ERR, FETIBC, VITB12 #### [facility] [address] [address] [address] Barbra Albrecht XR FOOT LEANDRO MIN [...] by: VIKRAM OSUNA Date: 2022-12-14 15:38 Normal [facility] XR ANKLE RT MIN 3 VIEWSon XR [...] by: GIGI WOODS Date: 2022-11-06 13:26 Normal [facility] XR FOOT RT MIN 3 VIEWSon XR [...] BOLA MARROQUIN Date: 2022-11-06 12:20 Normal [facility] CPKon 10-31-2022 CK [Catalytic activity/Vol] 143 U/L Normal 26-192 [facility] Comment on above: Performed By: #### F ERR, FETIBC, VITB12 #### [facility] [address] [place] [address] Dr. Barbra Albrecht SED RATE HOLTERGRENon 2022 SED RATE <1 Normal <=20 [facility] Comment on above: Performed By: #### F ERR, FETIBC, VITB12 #### [facility] [address] [place] [address] Dr. Barbra Albrecht TSHon 10-31-2022 TSH 0.719 uIU/mL Normal 0.358-3.74 0 [facility] Comment on above: Performed By: #### F ERR, FETIBC, VITB12 #### [facility] [address] [place] [address] Dr. Barbra Albrecht VIT B12 AND FOLATEon 023 Cobalamin (Vitamin B12) [Mass/Vol] 1283.0 pg/mL Critically high 193.0-986. 0 [facility] Comment on above: Performed By: #### B 12FOL #### [facility] [address] [place] [address] Dr. Barbra Albrecht FOLATE 26.80 ng/mL Normal 8.60-58.90 [facility] Comment on above: Performed By: #### B 12FOL #### [facility] [address] [place] [address] Dr. Barbra Albrecht XR CHEST 2 Von [...] GIGI SARMIENTO Date: 2022-09-28 14:48 Normal [facility] Basophils Auto (Bld) [#/Vol] Ordered By: Kye Apodaca on 09-13-2022 Basophils (Bld) [#/Vol] 0.1 10*3/uL 0.0-0.2 [facility] Basophils/100 WBC Auto (Bld) Ordered By: Kye Apodaca on 09-13-2022 Basophils/100 WBC (Bld) 0.9 % . [facility] CT biopsyOrdered By: Kye gutierrez on 09-13-2022 Transferrin [Mass/Vol] 209 mg/dL 180-380 [facility] Eosinophils Auto (Bld) [#/Vo l]Ordered By: Kye Apodaca on 09-13-2022 Eosinophils (Bld) [#/Vol] 0.0 10*3/uL 0.0-0.45 [facility] Eosinophils/100 WBC Auto (Bl d)Ordered By: Kye Apodaca on 09-13-2022 Eosinophils/100 WBC (Bld) 0.5 % . [facility] Erythrocyte distribution wid th Auto (RBC) [Ratio]Ordered By: Kye Apodaca on 09-13-2022 Erythrocyte distribution width (RBC) [Ratio] 14.8 % 11.9-15.3 [facility] Ferritin [Mass/volume] in Se rum or PlasmaOrdered By: Kye Apodaca on 09-13-2022 Ferritin [Mass/Vol] 62.9 ng/mL 11-306.8 [facility] Hematocrit Auto (Bld) [Volum e fraction]Ordered By: Kye Apodaca on 09-13-2022 Hematocrit (Bld) [Volume fraction] 38.9 % 34.0-46.4 [facility] Hemoglobin [Mass/volume] in BloodOrdered By: Kye Apodaca on 09-13-2022 Hemoglobin (Bld) [Mass/Vol] 13.4 g/dL 11.8-15.4 [facility] Iron [Mass/volume] in Serum or PlasmaOrdered By: Kye Apodaca on 09-13-2022 Iron [Mass/Vol] 70 ug/dL 40-150 [facility] Iron binding capacity [Mass/ volume] in Serum or PlasmaOrdered By: Kye Apodaca on 09-13-2022 Iron binding capacity [Mass/Vol] 293 ug/dL 255-450 [facility] Iron saturation [Mass Fracti on] in Serum or PlasmaOrdered By: Kye Apodaca on 09-13-2022 Iron saturation [Mass fraction] 23.0 % 20-50 [facility] Leukocytes [#/volume] correc gilson for nucleated erythrocytes in Blood by Automated counOrdered By: Kye Apodaca on 09-13-2022 WBC corrected for nucl RBC Auto (Bld) [#/Vol] 8.6 10*3/uL 3.8-11.6 [facility] Lymphocytes Auto (Bld) [#/Vo l]Ordered By: Kye Apodaca on 09-13-2022 Lymphocytes (Bld) [#/Vol] 1.4 10*3/uL 1.00-4.8 [facility] Lymphocytes/100 WBC Auto (Bl d)Ordered By: Kye Apodaca on 09-13-2022 Lymphocytes/100 WBC (Bld) 16.3 % . [facility] MCH Auto (RBC) [Entitic mass ]Ordered By: Kye Apodaca on 09-13-2022 MCH (RBC) [Entitic mass] 34.1 pg 24.7-34.3 [facility] MCHC Auto (RBC) [Mass/Vol]Or dered By: Kye Apodaca on 09-13-2022 MCHC (RBC) [Mass/Vol] 34.5 g/dL 32.0-35.0 [facility] MCV Auto (RBC) [Entitic vol] Ordered By: Kye Apodaca on 09-13-2022 MCV (RBC) [Entitic vol] 98.9 fL 80-100 [facility] Monocytes Auto (Bld) [#/Vol] Ordered By: Kye Apodaca on 09-13-2022 Monocytes (Bld) [#/Vol] 0.4 10*3/uL 0.0-0.8 [facility] Monocytes/100 WBC Auto (Bld) Ordered By: Kye Apodaca on 09-13-2022 Monocytes/100 WBC (Bld) 5.0 % . [facility] Neutrophils Auto (Bld) [#/Vo l]Ordered By: Kye Apodaca on 09-13-2022 Neutrophils (Bld) [#/Vol] 6.6 10*3/uL 1.8-7.7 [facility] Neutrophils/100 WBC Auto (Bl d)Ordered By: Kye Apodaca on 09-13-2022 Neutrophils/100 WBC (Bld) 77.3 % . [facility] Nucleated erythrocytes [Pres ence] in Blood by Automated countOrdered By: Kye Apodaca on 09-13-2022 Nucleated RBC Auto Ql (Bld) 0.1 /100{WBC} 0-0.5 [facility] Platelet mean volume Auto (B ld) [Entitic vol]Ordered By: Kye Apodaca on 09-13-2022 Platelet mean volume (Bld) [Entitic vol] 7.8 fL 6.3-10.7 [facility] Platelets Auto (Bld) [#/Vol] Ordered By: Kye Apodaca on 09-13-2022 Platelets (Bld) [#/Vol] 309 10*3/uL 150-450 [facility] RBC Auto (Bld) [#/Vol]Ordere d By: Key Apodaca on 09-13-2022 RBC (Bld) [#/Vol] 3.93 10*6/uL 3.60-5.00 [facility] WBC Auto (Bld) [#/Vol]Ordere d By: Kye Apodaca on 09-13-2022 WBC (Bld) [#/Vol] 8.6 10*3/uL 3.8-11.6 [facility] Covid-19 PCR (CVDTB)on 07-18 SARS-CoV-2 (COVID-19) RNA CATRACHITO+probe Ql (Unsp spec) Not detected Normal NOT DETECTED [facility] Comment on above: Result Comment: This test is not yet approved or cleared by the [place] FDA. When there are no FDA-approved or cleared tests available, and other criteria are met, FDA can make tests available under an emergency access mechanism called an Emergency Use Authorization (EUA). The EUA for this test is supported by the [place] of Health and Human Service's (HHS's) declaration [...] SARS-CoV-2. Performed By: #### C VDTB #### [facility] [address] [place] [address] Dr. Barbra Albrecht INFLUENZA A AND B [facility] 07-27 [facility] SEE BELOW Normal [facility] Comment on above: Result Comment: Nega tive for Flu A protein angiten. Infection due to Flu A cannot be ruled out. Flu A angiten in the sample may be below the detection limit of the test. Performed By: #### F ERR, FETIBC, VITB12 #### [facility] [address] [place] [address] Dr. Bar[facility] Normal [facility] Comment on above: Result Comment: Nega tive for Flu B protein antigen. Infection due to Flu B cannot be ruled out. Flu B antigen in the sample may be below the detection limit of the test. Performed By: #### F ERR, FETIBC, VITB12 #### [facility] [address] [place] [address] Dr. Barbra Albrecht INFLUENZA A AG Negative Normal NEGATIVE SEE COMMENT [facility] Comment on above: Performed By: #### F ERR, FETIBC, VITB12 #### [facility] [address] [place] [address] Dr. Barbra Albrecht INFLUENZA B AG Negative Normal NEGATIVE SEE COMMENT [facility] Comment on above: Performed By: #### F ERR, FETIBC, VITB12 #### [facility] [address] [place], [place] [address] Dr. Barbra Albrecht INTERNAL CONTROLS Within Normal Limits Normal Wi thin Normal Limits [facility] Comment on above: Performed By: #### F ERR, FETIBC, VITB12 #### [facility] [address] [place], [place] [address] Dr. Barbra Albrecht IgA [Mass/volume] in Serum o r PlasmaOrdered By: Kye Apodaca on 07-18-2022 IgA [Mass/Vol] 127 mg/dL 87-352 [facility] Comment on above: Performed at: [address] Director: Andres Arboleda PhD, Phone: [phone] No Panel InformationOrdered By: Kye Apodaca on 07-18-2022 Endomysial IgA Antibody Negative Negative [facility] Serum gliadin peptide IgA an tibody assay (units/volume)Ordered By: Kye Apodaca on 07-18-2022 Gliadin peptide IgA Qn (S) 5 units 0-19 [facility] Comment on above: Negative 0 - 19 Weak Positive 20 - 30 Moderate to Strong Positive >30 Serum gliadin peptide IgG an tibody assay (units/volume)Ordered By: Kye Apodaca on 07-18-2022 Gliadin peptide IgG Qn (S) 3 units 0-19 [facility] Comment on above: Negative 0 - 19 Weak Positive 20 - 30 Moderate to Strong Positive >30 Serum tissue transglutaminas e (tTG) IgA antibody assay (units/volume)Ordered By: Kye Apodaca on 07-18-2022 tTG IgA Qn (S) <2 U/mL 0-3 [facility] Comment on above: Negative 0 - 3 Weak Positive 4 - 10 Positive >10 Tissue Transglutaminase (tTG) has been identified as the endomysial antigen. Studies have demonstr- ated that endomysial IgA antibodies have over 99% specificity for gluten sensitive enteropathy. Serum tissue transglutaminas e (tTG) IgG antibody assay (units/volume)Ordered By: Kye Apodaca on 07-18-2022 tTG IgG Qn (S) <2 U/mL 0-5 [facility] Comment on above: Negative 0 - 5 Weak Positive 6 - 9 Positive >9 XR Chest 2 Views*on 06-13-20 XR Chest 2 Views* CLINICAL HISTORY: Co ugh, phlegm COMPARISON: FINDINGS: The cardiomediastinal silhouette is unremarkable. The lungs are free of infiltrates effusions or consolidations. The bones and soft tissues are within normal limits. IMPRESSION: There are no acute cardiopulmonary changes Report reported and signed by ADAM ALCANTARA on 06/13/2022 1556 Normal [facility] CBC AUTO DIFFon 03-28-2022 BASO # 0.1 103/ul Normal 0.0-0.1 [facility] Comment on above: Performed By: #### C BC #### [facility] [address] [place] [address] Dr. Barbra Albrecht Basophils/100 WBC (Bld) 0.6 % Normal 0.2-2.0 [facility] Comment on above: Performed By: #### C BC #### [facility] [address] [address] [address] Barbra Albrecht EO # 0.1 103/ul Normal 0.0-0.7 [facility] Comment on above: Performed By: #### C BC #### [facility] [address] [place] [address] Dr. Barbra Albrecht Eosinophils/100 WBC (Bld) 1.1 % Normal 0.9-7.0 [facility] Comment on above: Performed By: #### C BC #### [facility] [address] [place] [address] Dr. Barbra Albrecht Erythrocyte distribution width (RBC) [Ratio] 12.5 % Normal 11.0-15.0 [facility] Comment on above: Performed By: #### C BC #### [facility] [address] [place] [address] Dr. Barbra Albrecht Hematocrit (Bld) [Volume fraction] 36.3 % Normal 36.0-48.0 [facility] Comment on above: Performed By: #### C BC #### [facility] [address] [place] [address] Dr. Barbra Albrecht Hemoglobin (Bld) [Mass/Vol] 11.9 g/dL Critically low 12.0-16.0 [facility] Comment on above: Performed By: #### C BC #### [facility] [address] [place] [address] Dr. Barbra Albrecht IG # 0.04 10e3/ul Critically high 0.00-0.03 [facility] Comment on above: Performed By: #### C BC #### [facility] [address] [place] [address] Dr. Barbra Albrecht IG % 0.4 % Normal 0.0-0.5 [facility] Comment on above: Performed By: #### C BC #### [facility] [address] [place] [address] Dr. Barbra Albrecht LYMPH # 1.8 103/ul Normal 1.2-3.8 [facility] Comment on above: Performed By: #### C BC #### [facility] [address] [place] [address] Dr. Barbra Albrecht Lymphocytes/100 WBC (Bld) 17.5 % Critically low 20.5-60.0 [facility] Comment on above: Performed By: #### C BC #### [facility] [address] [place] [address] Dr. Barbra Albrecht MANUAL DIFF REQ NO Normal [facility] [place] [facility] Comment on above: Performed By: #### C BC #### [facility] [address] [place] [address] Dr. Barbra Albrecht MCH (RBC) [Entitic mass] 33.6 pg Normal 26.7-34.0 [facility] Comment on above: Performed By: #### C BC #### [facility] [address] [place] [address] Dr. Barbra Albrecht MCHC (RBC) [Mass/Vol] 32.8 g/dL Normal 29.9-35.2 [facility] Comment on above: Performed By: #### C BC #### [facility] [address] [place] [address] Dr. Barbra Albrecht MCV (RBC) [Entitic vol] 102.5 fL Critically high 81.0-99.0 [facility] Comment on above: Performed By: #### C BC #### [facility] [address] [place] [address] Dr. Barbra Albrecht MONO # 0.6 103/ul Normal 0.3-0.8 [facility] Comment on above: Performed By: #### C BC #### [facility] [address] [place] [address] Dr. Barbra Albrecht Monocytes/100 WBC (Bld) 6.0 % Normal 1.7-12.0 [facility] Comment on above: Performed By: #### C BC #### [facility] [address] [place] [address] Dr. Barbra Albrecht NEUT # 7.5 103/ul Critically high 1.4-6.5 [facility] Comment on above: Performed By: #### C BC #### [facility] [address] [place] [address] Dr. Barbra Albrecht Neutrophils/100 WBC (Bld) 74.4 % Normal 43.0-75.0 [facility] Comment on above: Performed By: #### C BC #### [facility] [address] [place] [address] Dr. Barbra Albrecht Platelet mean volume (Bld) [Entitic vol] 9.3 fL Critically low 9.5-13.5 [facility] Comment on above: Performed By: #### C BC #### [facility] [address] [place] [address] Dr. Barbra Albrecht PLT 283 103/ul Normal 150-450 [facility] Comment on above: Performed By: #### C BC #### [facility] [address] [place] [address] Dr. Barbra Albrecht RBC 3.54 106/ul Critically low 4.20-5.40 [facility] Comment on above: Performed By: #### C BC #### [facility] [address] [place] [address] Dr. Barbra Albrecht WBC 10.0 103/ul Normal 4.0-11.0 [facility] Comment on above: Performed By: #### C BC #### [facility] [address] [address] [address] Barbra Albrecht LIPASEon 03-28-2022 Lipase [Catalytic activity/Vol] 114.0 U/L Normal 73.0-393.0 [facility] Comment on above: Performed By: #### C MP, LIPA, LIPID #### [facility] [address] [address] [address] Barbra Albrecht LIPID PROFILEon 03-28-2022 CHOL-HDL RATIO NORM SEE BELOW Normal [facility] Comment on above: Result Comment: 3.3 - 4.4 LOW RISK 4.4 - 7.1 AVERAGE RISK 7.1 - 11.0 MODERATE RISK >11.0 HIGH RISK Performed By: #### C MP, LIPA, LIPID #### [facility] [address] [address] [address] Barbra Albrecht Cholesterol [Mass/Vol] 210 mg/dL Critically high <=200 [facility] Comment on above: Performed By: #### C MP, LIPA, LIPID #### [facility] [address] [address] [address] Barbra Albrecht Cholesterol in HDL [Mass/Vol] 68 mg/dL Critically high 40-60 [facility] Comment on above: Performed By: #### C MP, LIPA, LIPID #### [facility] [address] [address] [address] Barbra Albrecht Cholesterol in LDL [Mass/Vol] 132.0 mg/dL Normal [facility] Comment on above: Performed By: #### C MP, LIPA, LIPID #### [facility] [address] [address] [address] Barbra Albrecht Cholesterol.total/Cho lesterol in HDL [Mass ratio] 3.1 {ratio} Normal [facility] Comment on above: Performed By: #### C MP, LIPA, LIPID #### [facility] [address] [address] [address] Barbra Albrecht HDL NORMAL > or = 60 mg/dl - LO W CARDIOVASCULAR RISK <40 mg/dl - HIGH CARDIOVASCULAR RISK Normal [facility] Comment on above: Performed By: #### C MP, LIPA, LIPID #### [facility] [address] [address] [address] Barbra Albrecht LDL CALC NORMAL SEE BELOW Normal [facility] Comment on above: Result Comment: <100 mg/dl OPTIMAL 100 - 129 mg/dl NEAR OR ABOVE OPTIMAL 130 - 159 mg/dl BORDERLINE HIGH 160 - 189 mg/dl HIGH >190 mg/dl VERY HIGH Performed By: #### C MP, LIPA, LIPID #### [facility] [address] [address] [address] Barbra Albrecht Triglyceride [Mass/Vol] 50 mg/dL Normal <=150 [facility] Comment on above: Performed By: #### C MP, LIPA, LIPID #### [facility] [address] [address] [address] Barbra Albrecht VLDL CALC 10.0 mg/dL Normal [facility] Comment on above: Performed By: #### C MP, LIPA, LIPID #### [facility] [address] [address] [address] Barbra Albrecht PROF 14(COMP METB)on 022 Albumin [Mass/Vol] 3.9 g/dL Normal 3.4-5.0 [facility] Comment on above: Performed By: #### F ERR, FETIBC, VITB12 #### [facility] [address] [address] [address] Barbra Albrecht Albumin/Globulin [Mass ratio] 1.3 {ratio} Normal [facility] Comment on above: Performed By: #### F ERR, FETIBC, VITB12 #### [facility] [address] [address] [address] Barbra Albrecht ALP [Catalytic activity/Vol] 57 U/L Normal 46-116 [facility] Comment on above: Performed By: #### F ERR, FETIBC, VITB12 #### [facility] [address] [address] [address] Barbra Albrecht ALT [Catalytic activity/Vol] 21 U/L Normal 14-59 [facility] Comment on above: Performed By: #### F ERR, FETIBC, VITB12 #### [facility] [address] [address] [address] Barbra Albrecht Anion gap [Moles/Vol] 12.1 mmol/L Normal [facility] Comment on above: Performed By: #### F ERR, FETIBC, VITB12 #### [facility] [address] [place] [address] Dr. Barbra Albrecht AST [Catalytic activity/Vol] 13 U/L Critically low 15-37 [facility] Comment on above: Performed By: #### F ERR, FETIBC, VITB12 #### [facility] [address] [place] [address] Dr. Barbra Albrecht Bilirubin [Mass/Vol] 0.2 mg/dL Normal 0.2-1.0 [facility] Comment on above: Performed By: #### F ERR, FETIBC, VITB12 #### [facility] [address] [place] [address] Dr. Barbra Albrecht Calcium [Mass/Vol] 8.9 mg/dL Normal 8.5-10.1 [facility] Comment on above: Performed By: #### F ERR, FETIBC, VITB12 #### [facility] [address] [place] [address] Dr. Barbra Albrecht Chloride [Moles/Vol] 103 mmol/L Normal 98-107 [facility] Comment on above: Performed By: #### F ERR, FETIBC, VITB12 #### [facility] [address] [place] [address] Dr. Barbra Albrecht CO2 [Moles/Vol] 26.5 mmol/L Normal 21.0-32.0 [facility] Comment on above: Performed By: #### F ERR, FETIBC, VITB12 #### [facility] [address] [place] [address] Dr. Barbra Albrecht Creatinine [Mass/Vol] 0.69 mg/dL Normal 0.55-1.02 [facility] Comment on above: Performed By: #### F ERR, FETIBC, VITB12 #### [facility] [address] [place] [address] Dr. Barbra Albrecht EGFR-AF CITIZEN OF [place] >60 Normal >=60 [facility] Comment on above: Performed By: #### F ERR, FETIBC, VITB12 #### [facility] [address] [place] [address] Dr. Barbra Albrecht EGFR-NON AF CITIZEN OF [place] >60 Normal >=60 [facility] Comment on above: Performed By: #### F ERR, FETIBC, VITB12 #### [facility] [address] [place] [address] Dr. Barbra Albrecht Globulin (S) [Mass/Vol] 3.0 g/dL Normal [facility] Comment on above: Performed By: #### F ERR, FETIBC, VITB12 #### [facility] [address] [place] [address] Dr. Barbra Albrecht Glucose [Mass/Vol] 94 mg/dL Normal 74-106 [facility] Comment on above: Performed By: #### F ERR, FETIBC, VITB12 #### [facility] [address] [address] [address] Barbra Albrecht Potassium [Moles/Vol] 3.6 mmol/L Normal 3.5-5.1 [facility] Comment on above: Performed By: #### F ERR, FETIBC, VITB12 #### [facility] [address] [place] [address] Dr. Barbra Albrecht Protein [Mass/Vol] 6.9 g/dL Normal 6.4-8.2 [facility] Comment on above: Performed By: #### F ERR, FETIBC, VITB12 #### [facility] [address] [place] [address] Dr. Barbra Albrecht Sodium [Moles/Vol] 138 mmol/L Normal 136-145 [facility] Comment on above: Performed By: #### F ERR, FETIBC, VITB12 #### [facility] [address] [place] [address] Dr. Barbra Albrecht Urea nitrogen [Mass/Vol] 18.0 mg/dL Normal 7.0-18.0 [facility] Comment on above: Performed By: #### F ERR, FETIBC, VITB12 #### [facility] [address] [address] [address] Barbra Albrecht Urea nitrogen/Creatinine [Mass ratio] 26.1 mg/mg Normal [facility] Comment on above: Performed By: #### F ERR, FETIBC, VITB12 #### [facility] [address] [address] [address] Barbra Albrecht US Abdomen Completeon 2021 [...] by ADAM ALCANTARA on 03/10/2022 1059 Normal [facility] Program Officer US Pelvic Complete w/Transva ginalon 03-10-2022 US [...] uterus. Report reported and signed by Mark Jones on 03/13/2022 0950 Normal [facility] SCREENING MAMMOGRAM W/TRAY, BILATERAL*on 02-22-2022 SCREENING MAMMOGRAM W/TRAY, BILATERAL* CLINICAL HISTORY: Screening Mammogram COMPARISON: Priors dating back to 2016 TECHNIQUE: 2D and 3D mammogram imaging of [...] VERY IMPORTANT TO YOUR HEALTH. THE CURRENT CITIZEN OF [place] [employer]LE[employer] OF RADIOLOGY AND NATIONAL COMPREHENSIVE CANCER NETWORK GUIDELINES RECOMMENDS ANNUAL MAMMOGRAPHY BEGINNING AT AGE 41 THIS FACILITY USES A REMINDER SYSTEM TO ENSURE ALL PATIENTS RECEIVE REMINDER NOTIFICATIONS AT THE APPROPRIATE TIME BASED ON THE RECOMMENDATIONS OF THIS EXAM. Board Certified Radiologist. Accredited by the ACR and FDA. Report reported and signed by Mark Jones on 02/27/2022 1028 Normal [facility] Specialist CULTURE URINEon 02-09-2022 CULTURE URINE Culture Observations : MODERATE GROWTH OF MIXED GENITAL JOHNNY. NO POTENTIAL PATHOGENS SEEN. Normal [facility] Comment on above: Performed By: #### F ERR, FETIBC, VITB12 #### [facility] [address] [address] [address] Barbra Albrecht Vital Signs Date Time Vital Sign Value Performing Clinician Faci lity 05-19-2025 13:03-0400 Body height 167.6 cm Marta Varmack DO Work Phone: [facility] 05-19-2025 13:03-0400 Body mass index (BMI) [Ratio] 20.98 kg/m2 Marta David DO Work Phone: [facility] 05-19-2025 13:03-0400 Body weight 58.97 kg Marta David DO Work Phone: [facility] 05-19-2025 13:03-0400 Diastolic blood pressure 72 mm[Hg] Marta David DO Work Phone: [facility] 05-19-2025 13:03-0400 Heart rate 86 /min Marta David DO Work Phone: [facility] 05-19-2025 13:03-0400 SaO2% (BldA) [Mass fraction] 99 % Marta David DO Work Phone: [facility] 05-19-2025 13:03-0400 Systolic blood pressure 115 mm[Hg] Marta David DO Work Phone: [facility] 04-02-2025 08:30-0400 Body height 167.64 cm Fernanda Concepcion MD Work Phone: [facility] 04-02-2025 08:30-0400 Body mass index (BMI) [Ratio] 20.4 kg/m2 Fernanda Concepcion MD Work Phone: [facility] 04-02-2025 08:30-0400 Body weight 57.37 kg Fernanda Concepcoin MD Work Phone: [facility] 04-02-2025 08:30-0400 Diastolic blood pressure 84 mm[Hg] Fernanda Concepcion MD Work Phone: [facility] 04-02-2025 08:30-0400 Heart rate 80 /min Fernanda Concepcion MD Work Phone: [facility] 04-02-2025 08:30-0400 Systolic blood pressure 126 mm[Hg] Fernanda Concepcion MD Work Phone: [facility] 03-18-2025 09:40-0400 Body height 167.64 cm Fernanda Concepcion MD Work Phone: [facility] 03-18-2025 09:40-0400 Body mass index (BMI) [Ratio] 19.3 kg/m2 Fernanda Concepcion MD Work Phone: [facility] 03-18-2025 09:40-0400 Body weight 54.43 kg Fernanda Concepcion MD Work Phone: [facility] 03-18-2025 09:40-0400 Diastolic blood pressure 72 mm[Hg] Fernanda Concepcion MD Work Phone: [facility] 03-18-2025 09:40-0400 Heart rate 89 /min Fernanda Concepcion MD Work Phone: [facility] 03-18-2025 09:40-0400 SaO2% (BldA) [Mass fraction] 98 % Fernanda Concepcion MD Work Phone: [facility] 03-18-2025 09:40-0400 Systolic blood pressure 104 mm[Hg] Fernanda Concepcion MD Work Phone: [facility] 03-03-2025 11:39-0400 Body height 167.64 cm Fernanda Concepcion MD Work Phone: [facility] 03-03-2025 11:39-0400 Body mass index (BMI) [Ratio] 19.8 kg/m2 Fernanda Concepicon MD Work Phone: [facility] 03-03-2025 11:39-0400 Body weight 55.79 kg Fernanda Concepcion MD Work Phone: [facility] 03-03-2025 11:39-0400 Diastolic blood pressure 81 mm[Hg] Fernanda Concepcion MD Work Phone: [facility] 03-03-2025 11:39-0400 Heart rate 75 /min Fernanda Concepcion MD Work Phone: [facility] 03-03-2025 11:39-0400 Systolic blood pressure 111 mm[Hg] Fernanda Concepcion MD Work Phone: [facility] 02-10-2025 15:05-0400 Body height 167.6 cm Marta David DO Work Phone: [facility] 02-10-2025 15:05-0400 Body mass index (BMI) [Ratio] 20.18 kg/m2 Marta David DO Work Phone: [facility] 02-10-2025 15:05-0400 Body weight 56.7 kg Marta David DO Work Phone: [facility] 02-10-2025 15:05-0400 Diastolic blood pressure 64 mm[Hg] Marta David DO Work Phone: [facility] 02-10-2025 15:05-0400 Heart rate 86 /min Marta David DO Work Phone: [facility] 02-10-2025 15:05-0400 SaO2% (BldA) [Mass fraction] 95 % Marta David DO Work Phone: [facility] 02-10-2025 15:05-0400 Systolic blood pressure 110 mm[Hg] Marta David DO Work Phone: [facility] 02-06-2025 09:04-0400 Body height 167.64 cm Fernanda Concepcion MD Work Phone: [facility] 02-06-2025 09:04-0400 Body mass index (BMI) [Ratio] 19.7 kg/m2 Fernanda Concepcion MD Work Phone: [facility] 02-06-2025 09:04-0400 Body temperature 97.8 [degF] Fernanda Concepcion MD Work Phone: [facility] 02-06-2025 09:04-0400 Body weight 55.33 kg Fernanda Concepcion MD Work Phone: [facility] 02-06-2025 09:04-0400 Diastolic blood pressure 77 mm[Hg] Fernanda Concepcion MD Work Phone: [facility] 02-06-2025 09:04-0400 Heart rate 77 /min Fernanda Concepcion MD Work Phone: [facility] 02-06-2025 09:04-0400 Respiratory rate 16 /min Fernanda Concepcion MD Work Phone: [facility] 02-06-2025 09:04-0400 SaO2% (BldA) [Mass fraction] 98 % Fernanda Concepcion MD Work Phone: [facility] 02-06-2025 09:04-0400 Systolic blood pressure 117 mm[Hg] Fernanda Concepcion MD Work Phone: [facility] 01-16-2025 17:36-0400 Body temperature 98.01 [degF] Markel Vicente BUSINESS TRANSFORMATION MANAGER Work Phone: [facility] 01-16-2025 17:36-0400 Diastolic blood pressure 80 mm[Hg] Markelsloane Mylesok BUSINESS TRANSFORMATION MANAGER Work Phone: [facility] 01-16-2025 17:36-0400 Heart rate 86 /min Markelsloane Vicente BUSINESS TRANSFORMATION MANAGER Work Phone: [facility] 01-16-2025 17:36-0400 SaO2% (BldA) [Mass fraction] 98 % Markel Vicente BUSINESS TRANSFORMATION MANAGER Work Phone: [facility] 01-16-2025 17:36-0400 Systolic blood pressure 120 mm[Hg] Markelsloane Vicente BUSINESS TRANSFORMATION MANAGER Work Phone: [facility] 01-12-2025 09:13-0400 Body mass index (BMI) [Ratio] 18.88 kg/m2 Stevan Alicia MD Work Phone: [facility] 01-12-2025 09:13-0400 Body weight 53.07 kg Stevan Alicia MD Work Phone: [facility] 01-12-2025 09:13-0400 Diastolic blood pressure 76 mm[Hg] Stevan Alicia MD Work Phone: [facility] 01-12-2025 09:13-0400 Systolic blood pressure 122 mm[Hg] Stevan Alicia MD Work Phone: [facility] 01-06-2025 14:19-0400 Body height 167.6 cm Candice Baileymor BUSINESS TRANSFORMATION MANAGER Work Phone: [facility] 01-06-2025 14:19-0400 Body mass index (BMI) [Ratio] 19.05 kg/m2 Candice Gillmor BUSINESS TRANSFORMATION MANAGER Work Phone: [facility] 01-06-2025 14:19-0400 Body weight 53.52 kg Candice Baileymor BUSINESS TRANSFORMATION MANAGER Work Phone: [facility] 01-06-2025 14:19-0400 Diastolic blood pressure 74 mm[Hg] Candice Gillmor BUSINESS TRANSFORMATION MANAGER Work Phone: [facility] 01-06-2025 14:19-0400 Heart rate 87 /min Candice Baileymor BUSINESS TRANSFORMATION MANAGER Work Phone: [facility] 01-06-2025 14:19-0400 SaO2% (BldA) [Mass fraction] 96 % Candice Baileymor BUSINESS TRANSFORMATION MANAGER Work Phone: [facility] 01-06-2025 14:19-0400 Systolic blood pressure 112 mm[Hg] Candice Gillmor BUSINESS TRANSFORMATION MANAGER Work Phone: [facility] 12-11-2024 10:03-0400 Body height 167.64 cm Fernanda Concepcion MD Work Phone: [facility] 12-11-2024 10:03-0400 Body mass index (BMI) [Ratio] 19.8 kg/m2 Fernanda Concepcion MD Work Phone: [facility] 12-11-2024 10:03-0400 Body weight 55.9 kg Fernanda Concepcion MD Work Phone: [facility] 12-11-2024 10:03-0400 Diastolic blood pressure 74 mm[Hg] Fernanda Concepcion MD Work Phone: [facility] 12-11-2024 10:03-0400 Heart rate 85 /min Fernanda Concepcion MD Work Phone: [facility] 03-27-2025 10:03-0400 Systolic blood pressure 117 mm[Hg] Fernanda Concepcion MD Work Phone: [facility] 08-20-2024 13:00-0500 Diastolic blood pressure 59 mm[Hg] Fernanda Concepcion MD Work Phone: [facility] 08-20-2024 13:00-0500 Heart rate 94 /min Fernanda Concepcion MD Work Phone: [facility] 08-20-2024 13:00-0500 Respiratory rate 18 /min Fernanda Concepcion MD Work Phone: [facility] 08-20-2024 13:00-0500 SaO2% (BldA) [Mass fraction] 97 % Fernanda Concepcion MD Work Phone: [facility] 08-20-2024 13:00-0500 Systolic blood pressure 122 mm[Hg] Fernanda Concepcion MD Work Phone: [facility] 08-20-2024 09:56-0500 Body height 167.64 cm Fernanda Concepcion MD Work Phone: [facility] 08-20-2024 09:56-0500 Body mass index (BMI) [Ratio] 19.5 kg/m2 Fernanda Concepcion MD Work Phone: [facility] 08-20-2024 09:56-0500 Body temperature 97.9 [degF] Fernanda Concepcion MD Work Phone: [facility] 08-20-2024 09:56-0500 Body weight 54.88 kg Fernanda Concepcion MD Work Phone: [facility] 08-20-2024 09:56-0500 Diastolic blood pressure 80 mm[Hg] Fernanda Concepcion MD Work Phone: [facility] 08-20-2024 09:56-0500 Heart rate 91 /min Fernanda Concepcion MD Work Phone: [facility] 08-20-2024 09:56-0500 Systolic blood pressure 119 mm[Hg] Fernanda Concepcion MD Work Phone: [facility] 08-12-2024 13:13-0500 Body temperature 98.1 [degF] Fernanda Concepcion MD Work Phone: [facility] 08-04-2024 10:30-0500 Body height 167.64 cm Fernanda Concepcion MD Work Phone: [facility] 08-04-2024 10:30-0500 Body mass index (BMI) [Ratio] 19.3 kg/m2 Fernanda Concepcion MD Work Phone: [facility] 08-04-2024 10:30-0500 Body temperature 97 [degF] Fernanda Concepcion MD Work Phone: [facility] 08-04-2024 10:30-0500 Body weight 54.43 kg Fernanda Concepcion MD Work Phone: [facility] 08-04-2024 10:30-0500 Diastolic blood pressure 84 mm[Hg] Fernanda Concepcion MD Work Phone: [facility] 08-04-2024 10:30-0500 Heart rate 103 /min Fernanda Concepcion MD Work Phone: [facility] 08-04-2024 10:30-0500 Respiratory rate 16 /min Fernanda Concepcion MD Work Phone: [facility] 08-04-2024 10:30-0500 SaO2% (BldA) [Mass fraction] 97 % Fernanda Concepcion MD Work Phone: [facility] 08-04-2024 10:30-0500 Systolic blood pressure 126 mm[Hg] Fernanda Concepcion MD Work Phone: [facility] 07-14-2024 08:42-0400 Body weight 53.07 kg MD Fernanda Concepcion Work Phone: [facility] 07-14-2024 08:42-0400 Diastolic blood pressure 80 mm[Hg] MD Fernanda Concepcion Work Phone: [facility] 07-14-2024 08:42-0400 Heart rate 89 /min MD Fernanda Concepcion Work Phone: [facility] 07-14-2024 08:42-0400 Systolic blood pressure 117 mm[Hg] MD Fernanda Concepcion Work Phone: [facility] 07-03-2024 14:50-0400 Body mass index (BMI) [Ratio] 19.05 kg/m2 Stevan Alicia MD Work Phone: [facility] 07-03-2024 14:50-0400 Body weight 53.52 kg Stevan Alicia MD Work Phone: [facility] 07-03-2024 14:50-0400 Diastolic blood pressure 64 mm[Hg] Stevan Alicia MD Work Phone: [facility] 07-03-2024 14:50-0400 Systolic blood pressure 120 mm[Hg] Stevan Alicia MD Work Phone: [facility] 07-01-2024 15:14-0400 Body height 167.6 cm Marta David DO Work Phone: [facility] 07-01-2024 15:14-0400 Body mass index (BMI) [Ratio] 18.56 kg/m2 Marta David DO Work Phone: [facility] 07-01-2024 15:14-0400 Body weight 52.16 kg Marta David DO Work Phone: [facility] 07-01-2024 15:14-0400 Diastolic blood pressure 71 mm[Hg] Marta David DO Work Phone: [facility] 07-01-2024 15:14-0400 Heart rate 76 /min Marta David DO Work Phone: [facility] 07-01-2024 15:14-0400 SaO2% (BldA) [Mass fraction] 99 % Marta David DO Work Phone: [facility] 07-01-2024 15:14-0400 Systolic blood pressure 114 mm[Hg] Marta David DO Work Phone: [facility] 04-01-2024 08:36-0400 Body height 167.64 cm MD Fernanda Concepcion Work Phone: [facility] 04-01-2024 08:36-0400 Body mass index (BMI) [Ratio] 18.2 kg/m2 MD Fernanda Concepcion Work Phone: [facility] 04-01-2024 08:36-0400 Body weight 51.25 kg MD Fernanda Concepcion Work Phone: [facility] 04-01-2024 08:36-0400 Diastolic blood pressure 78 mm[Hg] MD Fernanda Concepcion Work Phone: [facility] 04-01-2024 08:36-0400 Heart rate 80 /min MD Fernanda Concepcion Work Phone: [facility] 04-01-2024 08:36-0400 Systolic blood pressure 115 mm[Hg] MD Fernanda Concepcion Work Phone: [facility] 03-14-2024 13:39-0400 Blood Pressure Location Girma Pedrozakyung [facility] 03-14-2024 13:39-0400 Diastolic blood pressure 68 mm[Hg] Girma Pedrozakyung [facility] 03-14-2024 13:39-0400 Heart rate 85 /min Girma Christofferson [facility] 03-14-2024 13:39-0400 Respiratory rate 16 /min Girma Christofferson [facility] 03-14-2024 13:39-0400 SaO2% (BldA) [Mass fraction] 96 % Girma Pedrozaerson [facility] 03-14-2024 13:39-0400 Systolic blood pressure 110 mm[Hg] Girma Delgado [facility] 03-04-2024 11:48-0400 Diastolic blood pressure 84 mm[Hg] MD Fernanda Concepcion Work Phone: [facility] 03-04-2024 11:48-0400 Heart rate 66 /min MD Fernanda Concepcion Work Phone: [facility] 03-04-2024 11:48-0400 Respiratory rate 18 /min MD Fernanda Concepcion Work Phone: [facility] 03-04-2024 11:48-0400 SaO2% (BldA) [Mass fraction] 98 % MD Fernanda Concepcion Work Phone: [facility] 03-04-2024 11:48-0400 Systolic blood pressure 113 mm[Hg] MD Fernanda Concepcion Work Phone: [facility] 03-04-2024 10:10-0400 Body height 167.64 cm MD Fernanda Concepcion Work Phone: [facility] 03-04-2024 10:10-0400 Body weight 49.89 kg MD Fernanda Concepcion Work Phone: [facility] 01-30-2024 14:53-0400 Diastolic blood pressure 77 mm[Hg] Girma Delgado [facility] 01-30-2024 14:53-0400 Heart rate 81 /min Girma Pedrozakyung [facility] 01-30-2024 14:53-0400 SaO2% (BldA) [Mass fraction] 95 % Girma Pedrozakyung [facility] 01-30-2024 14:53-0400 Systolic blood pressure 116 mm[Hg] Girma Delgado [facility] 12-25-2023 10:43-0400 Body height 167.64 cm MD Fernanda Concepcion Work Phone: [facility] 12-25-2023 10:43-0400 Body mass index (BMI) [Ratio] 19.1 kg/m2 MD Fernanda Concepcion Work Phone: [facility] 12-25-2023 10:43-0400 Body weight 53.72 kg MD Fernanda Concepcion Work Phone: [facility] 12-25-2023 10:43-0400 Diastolic blood pressure 73 mm[Hg] MD Fernanda Concepcion Work Phone: [facility] 12-25-2023 10:43-0400 Heart rate 98 /min MD Fernanda Concepcion Work Phone: [facility] 12-25-2023 10:43-0400 Systolic blood pressure 114 mm[Hg] MD Fernanda Concepcion Work Phone: [facility] 12-10-2023 10:20-0400 Body height 167.64 cm MD Fernanda Concepcion Work Phone: [facility] 12-10-2023 10:20-0400 Body mass index (BMI) [Ratio] 18.8 kg/m2 MD Fernanda Concepcion Work Phone: [facility] 12-10-2023 10:20-0400 Body weight 53.07 kg MD Fernanda Concepcion Work Phone: [facility] 12-10-2023 10:20-0400 Diastolic blood pressure 78 mm[Hg] MD Fernanda Concepcion Work Phone: [facility] 12-10-2023 10:20-0400 Heart rate 87 /min MD Fernanda Concepcion Work Phone: [facility] 12-10-2023 10:20-0400 Systolic blood pressure 118 mm[Hg] MD Fernanda Concepcion Work Phone: [facility] 10-23-2023 07:20-0500 Body height 167.64 cm MD Fernanda Concepcion Work Phone: [facility] 10-23-2023 07:20-0500 Body weight 49.89 kg MD Fernanda Concepcion Work Phone: [facility] 08-20-2023 13:30-0500 Body height 167.64 cm Fernanda Concepcion Other [facility] Other 08-20-2023 13:30-0500 Body mass index (BMI) [Ratio] 18.49 kg/m2 Fernanda Concepcion Other [facility] Other 08-20-2023 13:30-0500 Body weight 51.98 kg Fernanda Concepcion Other [facility] Other 08-20-2023 13:30-0500 Diastolic blood pressure 86 mm[Hg] Fernanda Concepcion Other [facility] Other 08-20-2023 13:30-0500 Systolic blood pressure 122 mm[Hg] Fernanda Concepcion Other [facility] Other 07-18-2023 14:00-0400 Body height 167.64 cm Stefan Sharonda Other [facility] Other 07-18-2023 14:00-0400 Body mass index (BMI) [Ratio] 18.14 kg/m2 Stefanberkley Mcdonough Other [facility] Other 07-18-2023 14:00-0400 Body weight 50.98 kg Stefan Mcdonough Other [facility] Other 07-18-2023 14:00-0400 SaO2% (BldA) [Mass fraction] 98 % Stefan Sharonda Other [facility] Other 05-16-2023 09:54-0400 Blood Pressure Location GIANNA KAPLAN [facility] 05-16-2023 09:54-0400 Diastolic blood pressure 87 mm[Hg] GIANNA KAPLAN [facility] 05-16-2023 09:54-0400 Heart rate 90 /min GIANNA EJ [facility] 05-16-2023 09:54-0400 Systolic blood pressure 136 mm[Hg] GIANNA EJ [facility] 05-09-2023 09:41-0400 Blood Pressure Location GIANNA EJ [facility] 05-09-2023 09:41-0400 Diastolic blood pressure 78 mm[Hg] GIANNA EJ [facility] 05-09-2023 09:41-0400 Heart rate 89 /min GIANNA EJ [facility] 05-09-2023 09:41-0400 Systolic blood pressure 117 mm[Hg] GIANNA EJ [facility] 05-02-2023 10:47-0400 Blood Pressure Location GIANNA EJ [facility] 05-02-2023 10:47-0400 Diastolic blood pressure 94 mm[Hg] GIANNA EJ [facility] 05-02-2023 10:47-0400 Heart rate 81 /min GIANNA EJ [facility] 05-02-2023 10:47-0400 Systolic blood pressure 124 mm[Hg] GIANNA EJ [facility] 04-25-2023 09:43-0400 Blood Pressure Location GIANNA EJ [facility] 04-25-2023 09:43-0400 Diastolic blood pressure 86 mm[Hg] GIANNA KAPLAN [facility] 04-25-2023 09:43-0400 Heart rate 74 /min GIANNA KAPLAN [facility] 04-25-2023 09:43-0400 Systolic blood pressure 117 mm[Hg] GIANNA KAPLAN [facility] 03-30-2023 08:45-0400 Body height 167.64 cm Fernanda Concepcion Other [employer] [email or web address] Other 03-30-2023 08:45-0400 Body mass index (BMI) [Ratio] 19.21 kg/m2 Fernanda Concepcion Other [employer] Other 03-30-2023 08:45-0400 Body weight 53.98 kg Fernanda Concepcion Other [employer] Other 03-30-2023 08:45-0400 Diastolic blood pressure 72 mm[Hg] Fernanda Concepcion Other [employer] Other 03-30-2023 08:45-0400 Systolic blood pressure 112 mm[Hg] Fernanda Concepcion Other [employer] Other 02-23-2023 13:00-0400 Body height 167.64 cm Fernanda Concepcion Other [employer] Other 02-23-2023 13:00-0400 Body mass index (BMI) [Ratio] 20.01 kg/m2 Fernanda Concepcion Other [employer] Other 02-23-2023 13:00-0400 Body weight 56.25 kg Fernanda Concepcion Other [employer] Other 02-23-2023 13:00-0400 Diastolic blood pressure 89 mm[Hg] Fernanda Concepcion Other [employer] Other 02-23-2023 13:00-0400 Systolic blood pressure 135 mm[Hg] Fernanda Concepcion Other [employer] Other 12-18-2022 11:00-0400 Body height 167.64 cm Fernanda Concepcion Other [employer] Other 12-18-2022 11:00-0400 Body mass index (BMI) [Ratio] 20.82 kg/m2 Fernanda Concepcion Other [employer] Other 12-18-2022 11:00-0400 Body weight 58.51 kg Fernanda Concepcion Other [employer] Other 12-18-2022 11:00-0400 Diastolic blood pressure 90 mm[Hg] Fernanda Concepcion Other [employer] Other 12-18-2022 11:00-0400 SaO2% (BldA) [Mass fraction] 97 % Fernanda Concepcion Other [employer] Other 12-18-2022 11:00-0400 Systolic blood pressure 126 mm[Hg] Fernanda Concepcion Other [employer] Other 12-12-2022 08:33-0400 Blood Pressure Location GIANNA KAPLAN [facility] 12-12-2022 08:33-0400 Diastolic blood pressure 89 mm[Hg] GIANNA KAPLAN [facility] 12-12-2022 08:33-0400 Heart rate 89 /min GIANNA FRANCOISRY [facility] 12-12-2022 08:33-0400 Systolic blood pressure 122 mm[Hg] GIANNA KAPLAN [facility] 09-20-2022 11:28-0500 Body temperature 98.4 [degF] MD Stevan Alicia Work Phone: [facility] 09-20-2022 11:28-0500 Body weight 54.2 kg MD Stevan Alicia Work Phone: [facility] 09-20-2022 11:28-0500 Diastolic blood pressure 64 mm[Hg] MD Stevan Alicia Work Phone: [facility] 09-20-2022 11:28-0500 Heart rate 86 /min MD Stevan Alicia Work Phone: [facility] 09-20-2022 11:28-0500 Respiratory rate 18 /min MD Stevan Alicia Work Phone: [facility] 09-20-2022 11:28-0500 SaO2% (BldA) [Mass fraction] 100 % MD Stevan Alicia Work Phone: [facility] 09-20-2022 11:28-0500 Systolic blood pressure 116 mm[Hg] MD Stevan Alicia Work Phone: [facility] 08-17-2022 09:40-0500 Blood Pressure Location Willem RICE [facility] 08-17-2022 09:40-0500 Diastolic blood pressure 89 mm[Hg] Willem RICE [facility] 08-17-2022 09:40-0500 Heart rate 76 /min Willem RICE [facility] 08-17-2022 09:40-0500 Systolic blood pressure 145 mm[Hg] Willem HARRIS [facility] 07-18-2022 10:41-0400 Body height 168.91 cm MD Stevan Alicia Work Phone: [facility] Encounters Encounter Date Encounter Type Care Provider Facility Start: 06-08-2025 End: 06-08-2025 Refill Debbi Keller LPN [facility] Comment on above: Iron deficiency Start: 05-19-2025 End: 05-19-2025 Bamboo flowsheet Marta Hernandez DO Work Phone: [facility] Start: 05-19-2025 End: 05-19-2025 Bamboo flowsheet Marta Parker David DO Work Phone: [facility] Start: 05-19-2025 End: 05-19-2025 Office outpatient visit 25 minutes Marta Hernandez DO Work Phone: [facility] Comment on above: Chronic obstructive pulmonary disease, unspecified COPD type (HCC) (Primary Dx); Cigarette smoker Start: 05-19-2025 End: 05-19-2025 ambulatory MARTA HERNANDEZ Not Available Start: 04-22-2025 End: 04-22-2025 ambulatory Fernanda Concepcion MD Work Phone: [facility] Work Phone: Start: 04-22-2025 End: 04-22-2025 Patient encounter procedure Tad Mark MD -[facility] Work Phone: Start: 04-09-2025 End: 04-09-2025 ambulatory STEVAN ALICIA Not Available Start: 04-02-2025 End: 04-02-2025 ambulatory Fernanda Concepcion MD Work Phone: [facility] Work Phone: Start: 04-02-2025 End: 04-02-2025 Patient encounter procedure Fernanda Concepcion MD -[facility] Work Phone: Start: 04-02-2025 End: 04-02-2025 Patient encounter status Fernanda Concepcion MD [facility] Start: 03-27-2025 End: 03-27-2025 ambulatory Fernanda Concepcion MD Work Phone: [facility] Work Phone: Start: 03-27-2025 End: 03-27-2025 Patient encounter procedure Destiny Rodriguez MD -[facility] Work Phone: Start: 03-23-2025 End: 03-23-2025 ambulatory Fernanda Concepcion MD Work Phone: [facility] Work Phone: Start: 03-23-2025 End: 03-23-2025 Patient encounter procedure Tad Mark MD -[facility] Work Phone: Start: 03-18-2025 End: 03-18-2025 ambulatory Fernanda Concepcion MD Work Phone: [facility] Work Phone: Start: 03-18-2025 End: 03-18-2025 Patient encounter procedure Cathryn Lambert DO -[facility] Work Phone: Start: 03-10-2025 Non-patient / Non-visit Fernanda Concepcion MD -[facility] Work Phone: Start: 03-03-2025 End: 03-03-2025 Patient encounter procedure Fernanda Concepcion MD -[facility] Work Phone: Start: 03-02-2025 End: 03-02-2025 Patient encounter procedure Cathryn Lambert DO -[facility] Work Phone: Start: 02-25-2025 End: 02-25-2025 ambulatory Fernanda Concepcion MD Work Phone: [facility] Work Phone: Start: 02-25-2025 End: 02-25-2025 Patient encounter procedure Fernanda Concepcion MD Work Phone: [facility] Work Phone: Start: 02-10-2025 End: 02-10-2025 Office outpatient visit 25 minutes Marta K David DO Work Phone: [facility] Comment on above: Chronic obstructive pulmonary disease, unspecified COPD type (CMS/HCC) (Primary Dx); Cigarette smoker Start: 02-10-2025 End: 02-10-2025 ambulatory MARTA K DAVID Not Available Start: 02-10-2025 End: 02-10-2025 Bamboo flowsheet Marta K David DO Work Phone: [facility] Start: 02-10-2025 End: 02-10-2025 Bamboo flowsheet Marta K David DO Work Phone: [facility] Start: 02-06-2025 End: 02-06-2025 Patient encounter procedure Fernanda Concepcion MD [facility]: [facility] Work Phone: Start: 02-06-2025 End: 02-06-2025 ambulatory Fernanda Concepcion Facility:[facility] Start: 01-27-2025 Registered Recurring Fernanda cho MD Work Phone: [facility] Work Phone: Start: 01-27-2025 End: 01-27-2025 Patient encounter procedure Fernanda Concepcion MD Work Phone: [facility] Start: 01-27-2025 End: 01-27-2025 ambulatory Fernanda Concepcion MD Work Phone: [facility] Work Phone: Start: 01-16-2025 End: 01-16-2025 Office outpatient visit 25 minutes Markel Vicente BUSINESS TRANSFORMATION MANAGER Work Phone: [facility] Comment on above: Pain and swelling of toe of left foot (Primary Dx); Muscle strain of left foot, initial encounter Start: 01-16-2025 End: 01-16-2025 ambulatory MARKEL VICENTE Not Available Start: 01-12-2025 End: 01-12-2025 ambulatory STEVAN ALICIA Not Available Start: 01-12-2025 End: 01-12-2025 Office outpatient visit 15 minutes Stevan Alicia MD Work Phone: [facility] Comment on above: Encounter for gyneco logical examination without abnormal finding (Primary Dx); Encounter for screening for cervical cancer; Cysts of both ovaries; History of endometrial ablation; Amenorrhea; Asymptomatic menopausal state; Anemia, unspecified type; Other iron deficiency anemia; Abnormal TSH; Mood swings; Chronic vulvitis; HSV (herpes simplex virus) infection; Myoma Start: 01-12-2025 End: 01-12-2025 Patient encounter status Stevan Alicia MD Work Phone: [facility] Start: 01-06-2025 End: 01-06-2025 Office outpatient visit 25 minutes Candice Palencia BUSINESS TRANSFORMATION MANAGER Work Phone: [facility] Comment on above: Paresthesias (Primar y Dx); Joint disease, temporomandibular; Neck pain; Foot pain, bilateral; Abnormal MRI, cervical spine; Bilateral occipital neuralgia Start: 01-06-2025 End: 01-06-2025 ambulatory CANDICE TALHA Not Available Start: 01-06-2025 End: 01-06-2025 Bamboo flowsheet Candice Talha BUSINESS TRANSFORMATION MANAGER Work Phone: [facility] Start: 01-06-2025 End: 01-06-2025 Bamboo flowsheet Candice Palencia BUSINESS TRANSFORMATION MANAGER Work Phone: [facility] Start: 01-05-2025 End: 01-05-2025 ambulatory CANDICE GILLMOR Not Available Start: 12-26-2024 End: 12-26-2024 ambulatory Fernanda Concepcion MD Work Phone: [facility] Work Phone: Start: 12-26-2024 End: 12-26-2024 Patient encounter procedure Fernanda Concepcion MD Work Phone: [facility] Work Phone: Start: 12-11-2024 End: 12-11-2024 ambulatory Fernanda Concepcion MD Work Phone: [facility] Work Phone: Start: 12-11-2024 End: 12-11-2024 Patient encounter procedure Fernanda Concepcion MD Work Phone: [facility] Work Phone: Start: 11-14-2024 End: 11-14-2024 ambulatory Fernanda Concepcion MD Work Phone: [facility] Work Phone: Start: 11-14-2024 End: 11-14-2024 Patient encounter procedure Fernanda Concepcion MD Work Phone: [facility] Work Phone: Start: 11-10-2024 Non-patient / Non-visit Fernanda Concepcion MD Work Phone: [facility] Work Phone: Start: 11-05-2024 End: 11-05-2024 Patient encounter procedure Fernanda Concepcion MD Work Phone: [facility] [place] Work Phone: Start: 11-05-2024 End: 11-05-2024 ambulatory Fernanda Concepcion MD Work Phone: [facility] Work Phone: Start: 10-14-2024 Registered Recurring Fernanda cho MD Work Phone: [facility] Work Phone: Start: 10-03-2024 End: 10-03-2024 ambulatory Fernanda Concepcion MD Work Phone: [facility] Work Phone: Start: 10-03-2024 End: 10-03-2024 Patient encounter procedure Fernanda Concepcion MD Work Phone: [facility] Work Phone: Start: 08-20-2024 Registered Recurring Fernanda cho [facility] Work [facility]: Start: 08-20-2024 End: 08-20-2024 Patient encounter procedure Fernanda Concepcion MD Work Phone: [facility] Work Phone: Start: 08-04-2024 Registered Recurring Fernanda cho MD Work Phone: [facility] Work Phone: Start: 08-04-2024 End: 08-04-2024 ambulatory Fernanda Concepcion MD Work Phone: [facility] Work Phone: Start: 08-04-2024 End: 08-04-2024 Patient encounter procedure Fernanda Concepcion MD Work Phone: [facility] Work Phone: Start: 07-22-2024 End: 07-22-2024 Patient encounter procedure MD Fernanda Concepcion Work Phone: [facility] [place] Work Phone: Start: 07-22-2024 End: 07-22-2024 ambulatory MD Fernanda Concepcion Work Phone: [facility] Work Phone: Start: 07-17-2024 End: 07-17-2024 Office outpatient visit 15 minutes Stevan Alicia MD Work Phone: [facility] Comment on above: Mood swings; Vaginal itching; Vaginal discharge; Cysts of both ovaries; Abnormal CBC; Iron deficiency anemia, unspecified iron deficiency anemia type; Insomnia, unspecified type Start: 07-16-2024 End: 07-16-2024 ambulatory Fernanda Concepcion Facility:[facility] Start: 07-16-2024 End: 07-16-2024 Discharged Recurring Fernanda Concepcion MD Work Phone: [facility] Start: 07-16-2024 Registered Recurring MD Fernanda Concepcion Work Phone: [facility] Start: 07-14-2024 End: 07-14-2024 Telephone encounter Stevan Alicia MD Work Phone: [facility] Start: 07-14-2024 End: 07-14-2024 ambulatory MD Fernanda Concepcion Work Phone: [facility] Work Phone: Start: 07-14-2024 End: 07-14-2024 Patient encounter procedure MD Fernanda Concepcion Work Phone: [facility] Work Phone: Start: 07-10-2024 End: 07-10-2024 Orders Only Stevan Alicia MD Work Phone: [facility] Comment on above: Chronic vulvitis (Pr imary Dx) Start: 07-10-2024 Registered Recurring MD Fernanda Concepcion Work Phone: [facility] Start: 07-03-2024 End: 07-03-2024 Patient encounter status Stevan Alicia MD Work Phone: [facility] Start: 07-03-2024 End: 07-03-2024 Periodic 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 est patient 40-64yrs Stevan Alicia MD Work Phone: [facility] Comment on above: Amenorrhea (Primary Dx); Encounter for screening mammogram for malignant neoplasm of breast; Screening for malignant neoplasm of cervix; Encounter for gynecological examination without abnormal finding; History of endometrial ablation; Hx of ovarian cyst; Vaginal discharge; Thyroid disorder screening Start: 07-03-2024 End: 07-03-2024 ambulatory STEVAN ALICIA Not Available Start: 07-01-2024 End: 07-01-2024 Office outpatient visit 25 minutes Marta Parker David DO Work Phone: [facility] Comment on above: Chronic obstructive pulmonary disease, unspecified COPD type (CMS/HCC) (Primary Dx); Cigarette smoker Start: 07-01-2024 End: 07-01-2024 ambulatory MARTA HERNANDEZ Not Available Start: 07-01-2024 End: 07-01-2024 Bamboo flowsheet Marta Elena David DO Work Phone: [facility] Start: 07-01-2024 End: 07-01-2024 Bamboo flowsheet Marta Elena David DO Work Phone: [facility] Start: 06-25-2024 End: 06-25-2024 ambulatory MD Fernanda Concepcion Work Phone: [facility] Work Phone: Start: 06-25-2024 End: 06-25-2024 Patient encounter procedure MD Fernanda Concepcion Work Phone: [facility] Work Phone: Start: 06-24-2024 Registered Recurring MD Fernanda Concepcion Work Phone: [facility] Start: 05-13-2024 End: 05-13-2024 ambulatory MD Fernanda Concepcion Work Phone: [facility] Work Phone: Start: 05-13-2024 End: 05-13-2024 Patient encounter procedure MD Fernanda Concepcion Work Phone: [facility] Work Phone: Start: 05-07-2024 End: 05-08-2024 Pre-admission assessment Tad Thao [facility] Start: 04-02-2024 Patient encounter status MD Fernanda Concepcion Work Phone: [facility] Start: 04-01-2024 End: 04-01-2024 ambulatory MD Fernanda Concepcion Work Phone: [facility] Work Phone: Start: 04-01-2024 End: 04-01-2024 Encounter for general adult medical examination without abnormal findings MD Fernanda Concepcion Work Phone: [facility] Start: 04-01-2024 End: 04-01-2024 Patient encounter procedure MD Fernanda Concepcion Work Phone: [facility] Work Phone: Start: 03-26-2024 End: 03-26-2024 Patient encounter procedure Tad Thao [facility] Start: 03-18-2024 End: 03-18-2024 ambulatory MD Fernanda Concepcion Work Phone: [facility] Work Phone: Start: 03-18-2024 End: 03-18-2024 Patient encounter procedure MD Fernanda Concepcion Work Phone: [facility] Work Phone: Start: 03-17-2024 End: 03-17-2024 Patient encounter procedure MD Fernanda Concepcion Work Phone: [facility] Work Phone: Start: 03-17-2024 End: 03-17-2024 ambulatory MD Fernanda Concepcion Work Phone: [facility] Work Phone: Start: 03-14-2024 End: 03-14-2024 ambulatory XXXX NONE Facility[place] Start: 03-14-2024 End: 03-14-2024 Patient encounter procedure Girma Delgado [facility] Start: 03-05-2024 Non-patient / Non-visit MD Fernanda Concepcion Work Phone: [facility] Gastroenterology Work Phone: Start: 03-04-2024 Non-patient / Non-visit MD Fernanda Concepcion Work Phone: [facility] Gastroenterology Work Phone: Start: 03-04-2024 End: 03-04-2024 Admission to same day surgery center MD Fernanda Concepcion Work Phone: [facility] Work Phone: Start: 03-04-2024 End: 03-04-2024 ambulatory Imad Asaad Facility:[facility] Start: 02-12-2024 End: 02-12-2024 ambulatory MD Fernanda Concepcion Work Phone: [facility] Work Phone: Start: 02-12-2024 End: 02-12-2024 Patient encounter procedure MD Fernanda Concepcion Work Phone: [facility] Work Phone: Start: 02-06-2024 End: 02-07-2024 ambulatory Girma Delgado [facility] Start: 02-06-2024 ambulatory Girma Delgado Facility[place] Start: 02-06-2024 End: 02-06-2024 Patient encounter procedure Girma Deglado [facility] Start: 01-30-2024 End: 01-30-2024 ambulatory PRASANTH RICHARDSON Facility[place] Start: 01-30-2024 End: 01-30-2024 Patient encounter procedure Girma Delgado [facility] Start: 01-29-2024 End: 01-29-2024 ambulatory MD Fernanda Concepcion Work Phone: [facility] Work Phone: Start: 01-29-2024 End: 01-29-2024 Discharged Recurring MD Fernanda Concepcion Work Phone: [facility] [facility] Start: 01-08-2024 End: 01-08-2024 ambulatory MD Fernanda Concepcion Work Phone: [facility] Work Phone: Start: 01-08-2024 End: 01-08-2024 Patient encounter procedure MD Fernanda Concepcion Work Phone: [facility] Work Phone: Start: 01-07-2024 Registered Recurring MD Fernanda Concepcion Work Phone: [facility] [facility] Start: 12-28-2023 End: 12-28-2023 ambulatory MD Fernanda Concepcion Work Phone: [facility] Work Phone: Start: 12-28-2023 End: 12-28-2023 Patient encounter procedure MD Fernanda Concepcion Work Phone: [facility] Work Phone: Start: 12-27-2023 Registered Recurring MD Fernanda Concepcion Work Phone: [facility] [facility] Start: 12-25-2023 End: 12-25-2023 Patient encounter procedure MD Fernanda Concepcion Work Phone: [facility] Gastroenterology Work Phone: Start: 12-10-2023 End: 12-10-2023 ambulatory MD Fernanda Concepcion Work Phone: [facility] Work Phone: Start: 12-10-2023 End: 12-10-2023 Patient encounter procedure MD Fernanda Concepcion Work Phone: [facility] Work Phone: Start: 12-04-2023 End: 12-04-2023 ambulatory MD Fernanda Concepcion Work Phone: [facility] Work Phone: Start: 12-04-2023 End: 12-04-2023 Patient encounter procedure MD Fernanda Concepcion Work Phone: [facility] Work Phone: Start: 11-22-2023 End: 11-22-2023 Patient encounter procedure MD Fernanda Concepcion Work Phone: [facility] Work Phone: Start: 11-16-2023 Non-patient / Non-visit MD Fernanda Concepcion Work Phone: [facility] Work Phone: Start: 10-26-2023 End: 10-26-2023 Office outpatient visit 15 minutes Dio Lara DO Work Phone: [facility] Comment on above: Right upper quadrant pain (Primary Dx) Start: 10-23-2023 End: 10-23-2023 ambulatory MD Fernanda Concepcion Work Phone: [facility] Work Phone: Start: 10-23-2023 End: 10-23-2023 Patient encounter procedure MD Fernanda Concepcion Work Phone: [facility] [place] Work Phone: Start: 10-08-2023 End: 10-08-2023 ambulatory MD Fernanda Concepcion Work Phone: [facility] Work Phone: Start: 10-08-2023 End: 10-08-2023 Patient encounter procedure MD Fernanda Concepcion Work Phone: [facility] [place] Work Phone: Start: 09-14-2023 Telephone encounter Fernanda Concepcion [facility] Start: 09-14-2023 End: 09-14-2023 ambulatory MD Fernanda Concepcion Work Phone: [facility] Work Phone: Start: 09-14-2023 End: 09-14-2023 Patient encounter procedure MD Fernanda Concepcion Work Phone: [facility] [place] Work Phone: Start: 09-13-2023 End: 09-13-2023 ambulatory Fernanda Concepcion Other [employer] Other Start: 09-13-2023 Telephone encounter Fernanda Concepcion [facility] Start: 09-05-2023 End: 09-05-2023 ambulatory MD Fernanda Concepcion Work Phone: [facility] Work Phone: Start: 09-05-2023 End: 09-05-2023 Patient encounter procedure MD Fernanda Concepcion Work Phone: [facility] [place] Work Phone: Start: 09-04-2023 End: 09-04-2023 ambulatory Prashant Mitchell Other [employer] Other Start: 09-04-2023 Office outpatient visit 15 minutes Prashant Mitchell [facility] Start: 09-04-2023 End: 09-04-2023 Patient encounter procedure MD Fernanda Concepcion Work Phone: [facility] Start: 09-04-2023 Patient encounter procedure MD Fernanda Concepcion Work Phone: [facility]- Start: 08-31-2023 End: 08-31-2023 ambulatory MD Fernanda Concepcion Work Phone: [facility] Work Phone: Start: 08-31-2023 End: 08-31-2023 Patient encounter procedure MD Fernanda Concepcion Work Phone: [facility] [place] Work Phone: Start: 08-27-2023 End: 08-27-2023 ambulatory MD Fernanda Concepcion Work Phone: [facility] Work Phone: Start: 08-27-2023 End: 08-27-2023 Discharged Recurring MD Fernanda Concepcion Work Phone: [facility]-Physical Therapy [address] Start: 08-27-2023 Registered Recurring MD Fernanda Concepcion Work Phone: [facility]Physical Therapy [address] Start: 08-24-2023 End: 08-24-2023 ambulatory Fernanda Concepcion Other [employer] Other Start: 08-24-2023 Telephone encounter Fernanda Concepcion [facility] Start: 08-20-2023 End: 08-20-2023 ambulatory Fernanda Concepcion Other [employer] Other Start: 08-20-2023 Office outpatient visit 15 minutes Fernanda Concepcion [facility] Start: 08-20-2023 End: 08-20-2023 Patient encounter procedure MD Fernanda Concepcion Work Phone: [facility] Work Phone: Start: 08-06-2023 End: 08-06-2023 ambulatory MD Fernanda Concepcion Work Phone: [facility] Work Phone: Start: 08-06-2023 End: 08-06-2023 Patient encounter procedure MD Fernanda Concepcion Work Phone: [facility]Electrodiagnostics Work Phone: Start: 08-01-2023 End: 08-01-2023 Patient encounter procedure MD Fernanda Concepcion Work Phone: [facility]CT Scan [facility] [place] Work Phone: Start: 07-23-2023 Registered Recurring MD Fernanda Concepcion Work Phone: [facility] [place] Start: 07-18-2023 End: 07-18-2023 ambulatory Stefan Mcdonough Other [employer] Other Start: 07-18-2023 Office consultation new/estab patient 60 min Stefan Sharonda [facility] Start: 07-18-2023 End: 07-18-2023 Patient encounter procedure MD Fernanda Concepcion Work Phone: [facility] Work Phone: Start: 07-13-2023 End: 07-13-2023 ambulatory Fernanda Concepcion Other [employer] Other Start: 07-13-2023 Telephone encounter Fernanda Concepcion [facility] Start: 07-03-2023 End: 07-03-2023 ambulatory Fernanda Concepcion Other [employer] Other Start: 07-03-2023 Telephone encounter Fernanda Concepcion [facility] Start: 06-27-2023 ambulatory PA-C GIANNA Hayden acility:[facility] [place] Start: 06-13-2023 ambulatory PA-C GIANNA Hayden acility:[facility] [place] Start: 06-04-2023 End: 06-04-2023 ambulatory Fernanda Concepcion Other [employer] Other Start: 06-04-2023 Telephone encounter Fernanda Concepcion [facility] Start: 05-31-2023 End: 05-31-2023 ambulatory Fernanda Concepcion Other [employer] Other Start: 05-31-2023 Telephone encounter Fernanda Concepcion [facility] Start: 05-30-2023 ambulatory PA-C GIANNA Hayden acility:[facility] [place] Start: 05-25-2023 End: 05-25-2023 ambulatory MD Fernanda Concepcion Work Phone: [facility] Work Phone: Start: 05-25-2023 End: 05-25-2023 Patient encounter procedure MD Fernanda Concepcion Work Phone: [facility] [place] Work Phone: Start: 05-16-2023 End: 05-16-2023 ambulatory PA-C GIANNA Barbara EJ Facility:[facility] [place] Start: 05-16-2023 End: 05-16-2023 Patient encounter procedure GIANNA KAPLAN [facility] Start: 05-11-2023 End: 05-11-2023 ambulatory Fernanda Concepcion Other [employer] Other Start: 05-11-2023 Nursing evaluation o f patient and report Fernanda Concepcion [facility] Start: 05-11-2023 Telephone encounter Fernanda Concepcion [facility] Start: 05-09-2023 End: 05-09-2023 ambulatory PA-C GIANNA Barbara EJ Facility:[facility] [place] Start: 05-09-2023 End: 05-09-2023 Patient encounter procedure GIANNA Jimenez EJ [facility] Start: 05-04-2023 ambulatory PA-C GIANNA KAPLAN Fac ility:[facility] [place] Start: 05-02-2023 End: 05-02-2023 ambulatory PA-C GIANNA Barbara EJ Facility:[facility] [place] Start: 05-02-2023 End: 05-02-2023 Patient encounter procedure GIANNA Barbara EJ [facility] Start: 04-25-2023 End: 04-25-2023 ambulatory PA-C GIANNA Barbara EJ Facility:[facility] [place] Start: 04-25-2023 End: 04-25-2023 Patient encounter procedure GIANNA KAPLAN [facility] [place] Start: 04-19-2023 End: 04-19-2023 ambulatory Charles Gilliam Other [employer] Other Start: 04-19-2023 Telephone encounter Charles Gilliam [facility] Start: 04-06-2023 End: 04-06-2023 ambulatory MD Fernanda Concepcion Work Phone: [facility] Work Phone: Start: 04-06-2023 End: 04-06-2023 Patient encounter procedure MD Fernanda Concepcion Work Phone: [facility] [place] Work Phone: Start: 03-30-2023 End: 03-30-2023 ambulatory Fernanda Concepcion Other [employer] Other Start: 03-30-2023 Encounter for genera l adult medical examination without abnormal findings Fernanda Concepcion [facility] Start: 03-30-2023 Periodic 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 est patient 40-64yrs Fernanda Concepcion [facility] Start: 02-23-2023 End: 02-23-2023 ambulatory Fernanda Concepcion Other [employer] Other Start: 02-23-2023 Office outpatient visit 15 minutes Fernanda Concepcion [facility] Start: 12-25-2022 End: 12-25-2022 ambulatory Fernanda Concepcion Other [employer] Other Start: 12-25-2022 Telephone encounter Fernanda Concepcion [facility] Start: 12-21-2022 End: 12-22-[address] FERNANDA CONCEPCION Facility: Start: 12-18-2022 End: 12-18-2022 ambulatory Fernanda Concepcion Other [employer] Other Start: 12-18-2022 Office outpatient visit 25 minutes Fernanda Concepcion [facility] Start: 12-14-2022 End: 12-15-[address] VIKRAM OSUNA Facility:[facility] Start: 12-12-2022 End: 12-12-2022 Patient encounter procedure GIANNA KAPLAN [facility] Start: 12-06-2022 End: 12-14-[address] FERNANDA CONCEPCION Facility:[facility] Start: 11-14-2022 End: 11-14-2022 ambulatory Fernanda Concepcion Other [employer] Other Start: 11-14-2022 Nursing evaluation o f patient and report Fernanda Concepcion [facility] Start: 11-06-2022 Telephone encounter Fernanda Concepcion [facility] Start: 11-06-2022 End: 11-06-2022 ambulatory MIRANDA THOMAS . [employer] Other Start: 10-31-2022 End: 11-01-[address] CATHRYN LAMBERT Facility:[facility] Start: 10-11-2022 End: 10-11-2022 ambulatory Fernanda Concepcion Other [employer] Other Start: 10-11-2022 Telephone encounter Fernanda Concepcion [facility] Start: 09-28-2022 End: 09-29-[address] FERNANDA CONCEPCION Facility:[facility] Start: 09-20-2022 End: 09-20-2022 ambulatory MD Stevan Alicia Work Phone: [facility] Work Phone: Start: 09-20-2022 End: 09-20-2022 Registered Recurring MD Stevan Alicia Work Phone: [facility] Work Phone: Start: 08-17-2022 End: 08-17-2022 Patient encounter procedure Willem HARRIS [facility] [place] Start: 08-03-2022 Adult health examination Charles Gilliam Other [employer] Other Start: 08-03-2022 Encounter for genera l adult medical examination without abnormal findings Fernanda Concepcion Other [employer] Other Start: 07-27-2022 End: 07-27-[address] FERNANDA CONCEPCION Facility:[facility] Start: 04-26-2022 End: 04-26-2022 Departed Referred PHYSICIAN [facility] [place] Start: 04-14-[address] FERNANDA CONCEPCION Facil ity:[facility]1 Start: 03-29-2022 Encounter for genera l adult medical examination without abnormal findings DR FERNANDA CONCEPCION [facility] Start: 03-28-2022 End: 03-29-[address] FERNANDA CONCEPCION Facility:[facility] Start: 03-28-2022 End: 03-29-2022 Encounter for general adult medical examination without abnormal findings DR FERNANDA CONCEPCION Facility:[facility] Start: 02-09-2022 End: 02-09-[address] FERNANDA CONCEPCION Facility:[facility] Procedures Date Procedure Procedure Detail Performing Clinician Start: 01-27-2025 Plain chest X-ray Fernanda Concepcion MD Work Phone: Start: 01-16-2025 ED SPLINTING / CASTING / STRAPPING Alexis Yanez LPN Start: 01-16-2025 Radex foot complete minimum 3 views Nirali Vicente BUSINESS TRANSFORMATION MANAGER Work Phone: Start: 01-12-2025 Carcinoembryonic antigen cea Stevan saenz MD Work Phone: Start: 01-12-2025 Immunoassay tumor antigen quantitative ca 125 Stevan Alicia MD Work Phone: Start: 01-12-2025 IGP, APT HPV,RFX 16/18,45 Stevna Alicia MD Work Phone: Start: 11-05-2024 MRI [...] 09-14-2023 Fungal Culture Result 3 MD Fernanda Concepcion Work Phone: Start: 09-14-2023 [...] Concepcion Work Phone: Start: 08-17-2022 Cystoscopy Willem HARRIS Start: 08-17-2022 Cystourethroscopy with dilation of urethral stricture GIANNA KAPLAN Start: 09-17-2021 Colonoscopy Willem HARRIS Start: 09-17-2018 Hysteroscopy Willem HARRIS Start: 09-17-2015 Colposcopy Willem HARRIS Start: 09-17-2008 Loop electrosurgical excision procedure Willem HARRIS Start: 09-17-2007 Ligation of fallopian tube Willem HARRIS Start: 09-17-1995 Extraction of wisdom tooth Willem HARRIS Screening for malign ant neoplasm of colon Charles Mane Other Screening for osteoporosis B enjamin Ball Other Plan of Treatment Date Care Activity Detail Author Start: 11-17-2025 End: 11-17-2025 Patient encounter procedure 11/17/2025 1:45 PM EST Office Visit [facility] [address] [place] [phone] Marta Hernandez, DO [address] [place] [address] [facility] Start: 07-08-2025 End: 07-08-2025 Patient encounter procedure [facility] Start: 07-08-2025 End: 07-08-2025 Professional / ancillary services management [facility] Start: 05-21-2025 End: 05-21-2025 Patient encounter procedure 05/21/2025 3:30 PM EDT Office Visit [facility] [address] [place] [phone] Marta Hernandez, DO [address] [place] [address] [facility] Start: 05-19-2025 End: 05-19-2025 Patient encounter procedure 05/19/2025 1:00 PM EDT Office Visit [facility] [address] [place] [phone] Marta Hernandez, DO [address] [place] [address] Arrived [facility] Comment on above: Arrived Start: 04-08-2025 End: 09-02-2025 DBT Breast - bilateral screening Bilateral screening mammogram with tomosynthesis Imaging Routine Encounter for screening mammogram for malignant neoplasm of breast Expected: 04/08/2025, Expires: 09/02/2025 [facility] Work Phone: Comment on above: Expected: 04/08/2025 , Expires: 09/02/2025 Start: 03-18-2025 End: 03-18-2025 Patient encounter procedure 03/18/2025 9:30 AM EDT Office Visit [facility] [address] [place] [address] Cathryn Lambert DO [address] [place] [id number] [facility] Start: 03-02-2025 End: 03-02-2025 Patient encounter procedure 03/02/2025 8:30 AM EDT Procedure Visit [facility] [place] [address] [address] [place] [address] Cathryn Lambert, DO [address] [place] [address] [facility] [place] Start: 02-10-2025 End: 02-10-2025 Patient encounter procedure [facility] Comment on above: Arrived Start: 01-19-2025 End: 01-19-2025 Patient encounter procedure 01/19/2025 2:45 PM EDT Office Visit [facility] [address] [place] [phone] Charles Eli, DO [address] [place] [address] [facility] Start: 01-15-2025 End: 01-15-2025 Patient encounter procedure 01/15/2025 3:00 PM EDT Office Visit [facility] [address] [place] [phone] Marta Hernandez, DO [address] [place] [address] [facility] Start: 01-12-2025 End: 01-12-2026 Follicle stimulating hormone Follicle stimulating hormone Lab Routine Asymptomatic menopausal state Expected: 01/12/2025 (Approximate), Expires: 01/12/2026 [facility] Work Phone: Comment on above: Expected: 01/12/2025 (Approximate), Expires: 01/12/2026 Start: 01-12-2025 End: 01-12-2025 Patient encounter procedure 01/12/2025 9:15 AM EDT Office Visit [facility] [address] [place] [phone] Stevan Alicia MD [address] [place] [address] [facility] Start: 01-06-2025 End: 01-06-2025 Patient encounter procedure 01/06/2025 2:20 PM EDT Office Visit [facility] [place] [address] [facility] [address] [place] [address] Candice Palencia NP [address] [place] [address] Arrived [facility] [place] Comment on above: Arrived Start: 01-06-2025 End: 01-06-2026 EMG 2 Extremities EMG 2 Extremities Neurology Routine Paresthesias Expected: 01/06/2025 (Approximate), Expires: 01/06/2026 [facility] Work Phone: Comment on above: Expected: 01/06/2025 (Approximate), Expires: 01/06/2026 Start: 01-05-2025 End: 01-05-2025 Patient encounter procedure 01/05/2025 9:15 AM EDT Office Visit [facility] [address] [place] [phone] Stevan Alicia MD [address] [place] [address] [facility] Start: 01-05-2025 End: 01-05-2025 Professional / ancillary services management 01/05/2025 8:30 AM EDT Ancillary Procedure [facility] [address] [place] [address] [facility] Start: 01-01-2025 End: 01-01-2025 Patient encounter procedure 01/01/2025 2:00 PM EDT Office Visit [facility] [address] [place] [phone] Marta Hernandez DO [address] [place] [address] [facility] Start: 12-11-2024 Patient referral [facility] Work Phone: Start: 11-14-2024 End: 11-14-2024 Patient encounter procedure 11/14/2024 9:35 AM EST Office Visit [facility] [address] [place] [address] Connie ZapataRANDALL-PRODUCTION CHECKER [address] [place] [address] [facility] Start: 08-19-2024 End: 08-20-2024 [facility] Start: 08-12-2024 [facility] Start: 08-12-2024 [facility] Start: 08-11-2024 End: 07-01-2025 CT Chest WO contrast CT chest wo IV contrast Imaging Routine Chronic obstructive pulmonary disease, unspecified COPD type (CMS/HCC) Expected: 08/11/2024, Expires: 07/01/2025 [facility] Work Phone: Comment on above: Expected: 08/11/2024 , Expires: 07/01/2025 Start: 08-08-2024 [facility] Start: 08-08-2024 [facility] Start: 07-22-2024 Cefuroxime free [Mass/volume] in Serum or Plasma [facility] Start: 07-17-2024 End: 07-17-2024 Patient encounter procedure 07/17/2024 8:15 AM EDT Office Visit [facility] [address] [place] [address] Stevan Alicia MD [address] [place] [address] [facility] Start: 07-03-2024 End: 07-03-2024 Patient encounter procedure 07/03/2024 2:45 PM EDT Office Visit [facility] [address] [place] [address] Stevan Alicia MD [address] [place], [place] [id number] [facility] Start: 07-03-2024 End: 07-03-2025 Comprehensive metabolic 2000 panel - Serum or Plasma Comprehensive metabolic panel Lab Routine Amenorrhea Expected: 07/03/2024 (Approximate), Expires: 07/03/2025 [facility] Comment on above: Expected: 07/03/2024 (Approximate), Expires: 07/03/2025 Start: 07-03-2024 End: 07-03-2025 Follicle stimulating hormone Follicle stimulating hormone Lab Routine Amenorrhea Thyroid disorder screening Expected: 07/03/2024 (Approximate), Expires: 07/03/2025 [facility] Comment on above: Expected: 07/03/2024 (Approximate), Expires: 07/03/2025 Start: 07-03-2024 End: 07-03-2025 Lipid 1996 panel - Serum or Plasma Lipid panel Lab Routine Amenorrhea Expected: 07/03/2024 (Approximate), Expires: 07/03/2025 [facility] Comment on above: Expected: 07/03/2024 (Approximate), Expires: 07/03/2025 Start: 07-03-2024 End: 07-03-2024 Professional / ancillary services management 07/03/2024 2:00 PM EDT Ancillary Procedure [facility] [address] [place] [address] [facility] Start: 07-03-2024 End: 07-03-2025 Vitamin D 1,25 dihydroxy Vitamin D 1,25 dihydroxy Lab Routine Amenorrhea Expected: 07/03/2024 (Approximate), Expires: 07/03/2025 [facility] Comment on above: Expected: 07/03/2024 (Approximate), Expires: 07/03/2025 Start: 07-01-2024 End: 07-01-2024 Patient encounter procedure 07/01/2024 3:15 PM EDT Office Visit [facility] [address] [place] [address] Marta Hernandez, DO [address] [place] [address] Arrived [facility] Comment on above: Arrived Start: 03-17-2024 [facility] Start: 03-04-2024 [facility] Start: 12-20-2023 End: 12-20-2023 Patient encounter procedure 12/20/2023 3:45 PM EDT Office Visit [facility] [address] [place] [address] Marta Hernandez DO [address] [place] [address] [facility] Start: 12-12-2023 End: 12-12-2023 Patient encounter procedure 12/12/2023 9:45 AM EDT Office Visit [facility] [address] [place] [phone] Stevan Alicia MD [address] [place] [address] [facility] Start: 12-12-2023 End: 12-12-2023 Professional / ancillary services management 12/12/2023 8:30 AM EDT Ancillary Procedure [facility] [address] [place] [address] [facility] Start: 11-13-2023 End: 11-13-2023 Patient encounter procedure 11/13/2023 9:25 AM EST Office Visit [facility] [address] [place] [phone] Connie Zapata, CELL ATTENDANT-PRODUCTION CHECKER [address] [place] [address] [facility] Start: 10-23-2023 Radionuclide imaging of liver and/or biliary tract using radioactive isotope NM hepatobiliary w pharm [facility] Start: 10-08-2023 [facility] Start: 09-14-2023 Acid Fast Bacilli Cu lture & Smear Acid Fast Bacilli Culture & Smear [facility] Start: 09-14-2023 Fungal Culture Result 1 Fungal Culture Result 1 [facility] Start: 09-14-2023 Mycology Culture [facility] Start: 09-14-2023 Mycology culture Fungal Cultur e Result 1 [facility] Start: 09-14-2023 Microbial culture of sputum [facility] Start: 09-14-2023 [facility] Start: 09-05-2023 NM bone scan whole body NM bon e scan whole body [facility] Start: 08-04-2022 [facility] Start: 08-04-2022 [facility] Start: 08-01-2022 [facility] Start: 07-28-2022 [facility] Start: 07-28-2022 [facility] Start: 07-25-2022 [facility] Bacteria identified in Unspecified specimen by Aerobe culture [facility] CBC panel - Blood by Automated count CBC Lab Routine Amenorrhea Ordered: 07/03/2024 [facility] Comment on above: Ordered: 07/03/2024 Cefuroxime free [Mass/volume] in Serum or Plasma [facility] Comprehensive metabo lic 2000 panel - Serum or Plasma [facility] Endomysial antibody IgA level [facility] Estradiol [facility]iol Lab Ro utine Amenorrhea Ordered: 07/03/2024 [facility] Comment on above: Ordered: 07/03/2024 Ferritin [Mass/volum e] in Serum or Plasma [facility] Fungus identified in Unspecified specimen by Culture [facility] Gliadin peptide IgA Ab [Units/volume] in Serum [facility] Gliadin peptide IgG Ab [Units/volume] in Serum [facility] HSV CATRACHITO HSV CATRACHITO Lab Rout ine Vaginal discharge Ordered: 07/03/2024 [facility] Comment on above: Ordered: 07/03/2024 IgA [Mass/volume] in Serum or Plasma [facility] Alvarado miscellaneous test Alvarado mis cellaneous test Lab Routine Vaginal discharge Ordered: 07/03/2024 [facility] Comment on above: Ordered: 07/03/2024 Microscopic observat ion [Identifier] in Unspecified specimen by Gram stain [facility] Microscopic observat ion [Identifier] in Unspecified specimen by Smear [facility] Mycobacterium sp identified in Unspecified specimen by Organism specific culture [facility] Nuab Vaginitis Plu s (VG+) Nuab Vaginitis Plus (VG+) Microbiology Routine Vaginal discharge Ordered: 07/03/2024 [facility] Comment on above: Ordered: 07/03/2024 Patient Education Colon polyps Hemorrhoids (DC) Gastritis (DC) Know your [facility] Work Phone: Patient referral [facility] Work Phone: SENDOUT TEST MISCELL ANEOUS [facility] SENDOUT TEST MISCELLANEOUS [facility] Lab Routine Screening for malignant neoplasm of cervix Encounter for gynecological examination without abnormal finding Ordered: 07/03/2024 [facility] Comment on above: Ordered: 07/03/2024 Tissue transglutamin ase IgA Ab [Units/volume] in Serum [facility] Tissue transglutamin ase IgG Ab [Units/volume] in Serum [facility] XR Foot - right GE 3 Views F [facility] XR Thoracic spine 3 Views Fi [facility] Immunizations Immunization Date Immunization Notes Care Provider Morgan feliciano 05-24-2022 influenza virus vaccine, split virus (incl. purified surface antigen) Charles Gilliam Other [employer] [facility] [email or web address] Other 05-24-2022 influenza virus vaccine, unspecified formulation [employer] [facility] 05-24-2022 Influenza, injectabl e, Madin [place] Canine Kidney, preservative free, quadrivalent Dio Itzkoliboriotz DO Work Phone: [facility] [employer] 05-16-2021 influenza virus vaccine, split virus (incl. purified surface antigen) Charles Gilliam Other [employer] [facility] [email or web address] Other 05-16-2021 influenza virus vaccine, unspecified formulation [facility] 05-16-2021 influenza, injectabl e, quadrivalent, preservative free Dio Itzkowitz DO Work Phone: [facility] 04-20-2020 tetanus toxoid, reduced diphtheria toxoid, and acellular pertussis vaccine, adsorbed Willem Where I've Been [facility] 06-10-2019 influenza virus vaccine, unspecified formulation Willem RICE [facility] 06-10-2019 influenza, injectabl e, quadrivalent, preservative free Dio Itzkowitz DO Work Phone: [facility] 08-31-2018 influenza virus vaccine, unspecified formulation Willem RICE [facility] 08-31-2018 Influenza, injectabl e, Madin [place] Canine Kidney, preservative free, quadrivalent Dio Itzkowitz DO Work Phone: [facility] 08-01-2017 influenza, injectabl e, quadrivalent, preservative free Dio Itzkowitz DO Work Phone: [facility] 06-20-2016 influenza virus vaccine, unspecified formulation Willem RICE [facility] 06-20-2016 influenza, injectabl e, quadrivalent, preservative free Dio Itzkowitz DO Work Phone: [facility] 06-20-2016 tetanus and diphther ia toxoids, adsorbed, preservative free, for adult use (5 Lf of tetanus toxoid and 2 Lf of diphtheria toxoid) Charles Gilliam Other [facility] Payers Date Payer Category Payer Self-pay [id number] 2021 Medicaid [employer] [place] [id number] 2021-Present [address] [place] [address] [id number] 2021 Medicaid (Managed Care) [facility] MEDICAID [id number] 1976 Unknown [id number] 2.16.840.1.247863.3.579.2. 59 1976 Unknown [id number] 2.16.840.1.709901.3.579.2. 59 1976 Unknown [id number] 2.16.840.1.488451.3.579.2. 1976 Unknown [id number] 2.16.840.1.501739.3.579.2. 593 1976 Unknown [id number] 2.16.840.1.022474.3.579.2. 59 1976 Unknown [id number] 2.16.840.1.324751.3.579.2. 59 1976 Unknown [id number] 2.16.840.1.426039.3.579.2. 59 1976 Unknown [id number] 2.16.840.1.518617.3.579.2. 59 1976 Unknown [id number] 2.16.840.1.571658.3.579.2. 59 1976 Unknown [id number] 2.16.840.1.606985.3.579.2. 593 1976 Unknown [id number] 2.16.840.1.908339.3.579.2. 1976 Unknown [id number] 2.16.840.1.287859.3.579.2. 1976 Unknown [id number] 2.16.840.1.958566.3.579.2. 1976 Unknown [id number] 2.16.840.1.670767.3.579.2. 1976 Unknown [id number] 2.16.840.1.305583.3.579.2. 1976 Unknown [id number] 2.16.840.1.313498.3.579.2. 1976 Unknown [id number] 2.16.840.1.511324.3.579.2. 1976 Unknown [id number] 2.16.840.1.623809.3.579.2. 1976 Unknown [id number] 2.16.840.1.901517.3.579.2. 1976 Unknown [id number] 2.16.840.1.637857.3.579.2. 1976 Unknown [id number] 2.16.840.1.212947.3.579.2. 1258 1976 Unknown [id number] [id number]. 1258 1975 Unknown [id number] 2.16.840.1.110742.3.579.2. 1258 1975 Unknown [id number] 2.16.840.1.429761.3.579.2. 1258 1975 Unknown [id number] 2.16.840.1.755113.3.579.2. 1258 1975 Unknown [id number] 2.16.840.1.381998.3.579.2. 1258 1975 Unknown [id number] 2.16.840.1.819634.3.579.2. 1258 1975 Unknown [id number] 2.16.840.1.411525.3.579.2. 1258 1975 Unknown [id number] 2.840.1.508192.3.579.2. 1258 1975 Unknown [id number] 2..840.1.571580.3.579.2. 1258 1975 Unknown [id number] 2.16.840.1.304434.3.579.2. 9 1958 Medicaid [id number] 1958 Self-pay [id number] Unknown O [id number] Unknown [id number] 2.840.1.223137.3.579.2. 531 Unknown [id number] 2.16840.1.406285.3.579.2. 531 Unknown [id number] 2.840.1.911277.3.579.2. 531 Unknown [id number] 2840.1.395878.3.579.2. 531 Unknown [id number] 2.840.1.238879.3.579.2. 531 Unknown [id number] 2.16840.1.233853.3.579.2. 531 Unknown [id number] 2.16840.1.595773.3.579.2. 531 Social History Date Type Detail Facility Start: 04-04-2019 Tobacco smoking status MNIS Current some day smoker [facility] Start: 1975 Sex Assigned At Female [facility] Start: 07-18-2022 End: 08-18-2024 Tobacco smoking status NHIS Smoker (finding) [facility] Start: 08-09-2022 End: 03-26-2024 Tobacco smoking status Light tobacco smoker (finding) [facility] Start: 10-11-2023 End: 07-03-2024 Sex Assigned At Female [facility] Tobacco smoking status Never [facility] Start: 06-14-2023 End: 07-01-2024 Tobacco smoking status NHIS Smokes tobacco daily [facility] History of tobacco use Cigarette Smoker [facility] Start: 06-14-2023 End: 07-03-2024 Cigarettes smoked current (pack per day) - Reported 1 [facility] Start: 06-14-2023 End: 07-01-2024 Tobacco use and exposure Smokeless tobacco non-user [facility] Start: 10-11-2023 End: 05-19-2025 Alcohol intake Lifetime non-drinker (finding) [facility] Start: 07-18-2023 Education 13 [facility] Start: 07-18-2023 Alcohol Comment caffeine intak e: 2-3 cups per day of coffee, soda/pop [facility] Start: 1975 Sex Assigned At Not on file N [facility] Start: 08-04-2024 End: 02-25-2025 Sex Female (finding) [facility] NEGATED: Highlighted row N [facility] Medical Equipment Procedure Code Equipment Code Equipment Origin al Text Equipment Identifier Dates Capsule endoscopy, for patency of lumen evaluation Video capsule endoscopy system [id number] FDA Start: 03-17-2024 Goals Date Patient Goal Desired Activity /State Functional Status Date Assessment Result Facility 03-26-2024 Functional Status No [facility] 03-14-2024 Functional Status No [facility] 01-30-2024 Functional Status N/A [facility] 05-16-2023 Functional Status N/A [facility] 05-09-2023 Functional Status N/A [facility] 05-02-2023 Functional Status N/A [facility] 04-25-2023 Functional Status N/A [facility] 12-12-2022 Functional Status N/A [facility] 08-17-2022 Functional Status N/A [facility] Clinical Notes 07-19-2018 to 06-08-2025 Telephone Encounter - Debbi Kelelr LPN - 06/08/2025 10:32 AM EDTTelephone Encounter - Debbi Keller LPN - 06/08/2025 10:32 AM Tam Hernandez DO - 05/19/2025 1:00 PM EDT Note Date & Type Note Facility 06-08-2025 Telephone encount er Note asking for refill of Iron polysaccharides 180 mg REMY 01/12/25 last CBC 07/03/24 Hgb 11.1, Hct 33.7 [facility] 06-08-2025 Miscellaneous Notes Formattin g of this note might be different from the original. asking for refill of Iron polysaccharides 180 mg REMY 01/12/25 last CBC 07/03/24 Hgb 11.1, Hct 33.7 documented in this encounter [facility] 05-19-2025 History of Presen t illness Narrative Images from the original note were not included. Katy Parker Chadterry presents today for follow up on COPD. She was last seen several months ago. Since her last office visit she was tried on Trelegy. However the patient does not recall any change in her inhaled medications. She is currently back on Spiriva once daily. She does use albuterol as needed. She does suspect that Trelegy likely was not covered by her insurance. She states her breathing overall has been stable. She denies any current complaints of increasing shortness of breath at rest or with exertion. She denies any chest pain, palpitations, fevers, chills, sweats, or recent unintentional weight changes. She does have somewhat of a cough. She does feel that this is secondary to sinus drainage and does currently use an fdjy-woi-nbiahtv antihistamine. Also since her last office visit she did decline having her home sleep study performed. She did request a refill on her Spiriva at today's office visit. She does continue to smoke. Allergies: Allergies Allergen Reactions Cat Dander Unknown Dust Mite Extract Unknown Glycerin Unknown Molds & Smuts Other Medications: Current Outpatient Medications: albuterol HFA (ProAir HFA) 90 mcg/act inhaler, Inhale 2 puffs every 4 (four) hours if needed for wheezing, Disp: 18 g, Rfl: 11 ALPRAZolam (Xanax) 1 MG tablet, , Disp: , Rfl: cetirizine (ZyrTEC) 10 MG tablet, Take by mouth, Disp: , Rfl: gabapentin (Neurontin) 100 MG [...] mg by mouth Daily, Disp: , Rfl: pyridoxine (Vitamin B-6) 25 [...] Then daily, Disp: 30 tablet, Rfl: 5 Ciclopirox 1 % shampoo, , Disp: , Rfl: Past Medical History: Past Medical History: Diagnosis Date Abdominal pain 12/28/2023 Abnormal Pap smear of vagina Abnormal weight loss Adult celiac disease ([facility]) 12/28/2023 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 07/18/2023 Allergies Anemia Anxiety Arthritis of carpometacarpal (CMC) joint of right thumb 12/28/2023 Bipolar II disorder ([facility]) 07/18/2023 Bowel obstruction ([facility]) 1994 Chicken pox Chronic allergic rhinitis 07/18/2023 Chronic maxillary sinusitis Chronic vaginitis 07/18/2023 SANGITA I (cervical intraepithelial neoplasia I) 07/18/2023 Contusion of right foot 12/28/2023 COPD (chronic obstructive pulmonary disease) ([facility]) De Quervain's tenosynovitis, right 12/28/2023 Depression Dysmenorrhea 07/18/2023 Endometriosis of uterus 08/04/2009 Foot fracture, right 2019 broken right foot Genital herpes simplex 09/22/2009 GERD (gastroesophageal reflux disease) H/O tubal ligation 2009 Headache History of medical problems routine blood donor- every 56 days per pt History of medical treatment 2000 diagnostic lap History of menorrhagia 12/28/2023 HSV-2 infection Hypertension Insomnia, persistent 12/28/2023 Iron deficiency anemia 12/28/2023 Menorrhagia with irregular cycle 07/18/2023 Migraine Mixed incontinence 06/30/2024 Mixed stress and urge incontinence 07/18/2023 Peroneal tendinitis, right leg 12/28/2023 ([facility]) x2 Raynaud's syndrome Restless leg syndrome 12/28/2023 [...] per day of coffee, soda/pop Vitals: BP 115/72 Pulse 86 Ht 5' 6 Wt 130 lb SpO2 99% BMI 20.98 kg/m Exam: Heart: regular rate Lungs: clear to auscultation bilaterally, no wheezes/rales/rhonchi, no resp distress Extremities: no edema noted, no visible rashes Neuro: alert, oriented x3 Imaging Reviewed: None Assessment/Plan: Diagnoses and all orders for this visit: Chronic obstructive pulmonary disease, unspecified COPD type (HCC) Cigarette smoker COPD -- at this time her breathing is well controlled with use of Spiriva once daily and albuterol as needed. She did request a refill on her Spiriva. This was sent to the pharmacy for at today's office visit. She will continue with her current regimen and follow here in 6 months time unless needed before then. Tobacco use -- she does continue to smoke on a daily basis. We did have a 4 minute discussion regarding the importance of smoking cessation at today's office visit. Follow up in about 6 months (around 11/16/2025) for COPD. Marta Hernandez DO documented in this encounter [facility] 02-10-2025 History of Presen t illness Narrative [...] blood work has been ordered by the recreational vehicle resort manager. 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 07/18/2023 Allergies Anemia Anxiety Arthritis of carpometacarpal (CMC) joint of right thumb 12/28/2023 Bipolar II disorder ([facility]) 07/18/2023 Bowel obstruction ([facility]) 1994 Chicken pox Chronic allergic rhinitis 07/18/2023 Chronic maxillary sinusitis Chronic vaginitis 07/18/2023 SANGITA I (cervical intraepithelial neoplasia I) 07/18/2023 Contusion of right foot 12/28/2023 COPD (chronic obstructive pulmonary disease) ([facility]) De Quervain's tenosynovitis, right 12/28/2023 Depression ([facility]) Dysmenorrhea 07/18/2023 Endometriosis of uterus 08/04/2009 Foot fracture, right 2019 broken right foot Genital herpes simplex 09/22/2009 GERD (gastroesophageal reflux disease) H/O tubal ligation 2009 Headache History of medical problems routine blood donor- every 56 days per pt History of medical treatment 2000 diagnostic lap History of menorrhagia 12/28/2023 HSV-2 infection Hypertension ([facility]) Insomnia, persistent 12/28/2023 Iron deficiency anemia 12/28/2023 [...] Chronic obstructive pulmonary disease, unspecified COPD type ([facility]) - albuterol HFA (ProAir HFA) 90 mcg/act inhaler; Inhale 2 puffs every 4 (four) hours if needed for wheezing - Jxbmvapogtf-Eqvxaqgug-Xbmqll (Trelegy Ellipta) 100-62.5-25 MCG/ACT aerosol powder ; [...] Marta Hernandez DO documented in this encounter [facility] 02-06-2025 Evaluation note Diagnosis Onset Date Resolution [...] pain, left acute March 27, 2025 9:41am [facility] Work Phone: 1(982) 494-490005-23-2025 Evaluation note* Diagnosis Onset Date Resolution Status [...] 9:41am Right foot pain acute March 8:24am [facility] Work Phone: 1(561) 100-910505-23-2025 Evaluation note* Diagnosis Onset Date Resolution Status [...] pain, left acute March 27, 2025 9:41am Back pain, thoracic acute April 02, 2025 8:24am GERD (gastroesophageal reflu x disease) acute April 02, 2025 8:24am Insomnia, persistent acute April 02, 2025 8:24am Right foot pain acute March 8:24am TMJ (dislocation of temporomandibular joint) acute April 022024 8:24am Wellness examination acute April 02, 2025 8:24am 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ne acute April 22, 2025 10:10am Back pain, thoracic acute Augus t 2024 10:10am Chronic pain acute April 22, 2025 10:10am [facility] Work Phone: 1(872) 968-185705-23-2025 [facility] [place] [address] Cancer Center Note Signed Patient: Katy Banuelos MR#: [id number] : 1975 Acct:[id number] Age/Sex: 50 / F Type: DEP AMB [...] 1 week prior to 6month visit with BUSINESS TRANSFORMATION MANAGER. CHEMO PLAN Treatment Plan Iron Sucrose (Venofer) [...] mg PO BID PRN 30 days vitamin P59-ytfbw acid 0.5-1 mg 1 tab PO DAILY Gastrointestinal Is the patient taking opioids for pain control?: No Falls Fall Precaution Measures Taken: Patient in chair Nurse's Note: Patient is here today for a follow up visit and go over labs ON LICENSE OF [facility] Medical History Medical History Raynauds [...] RESULTS Corrected WBC 7.2 X10E3/uL (3.8-11.6) 01/27/25 11:55 5 Hgb 14.4 g/dL (11.8-15.4) 01/27/25 11:55 01/27/25 Hct 41.5 % (34.0-46.4) 01/27/25 11:01/27/25 MCV 101.2 fl (80-100) H 01/27/25 11:55 01/27/25 RDW 13.2 % (11.9-15.3) 01/27/25 11:01/27/25 Plt Count 234 x10E3/uL (150-450) 01/27/25 11:01/27/25 Iron 151 ug/dL (50-212) 01/27/25 11:01/27/25 Iron Saturation 46.7 % (20-50) 01/27/25 11:01/27/25 Ferritin 30.5 ng/mL (11.0-306.8) 01/27/25 11:55 5 Dictated By: JIL Mary DD/ [id number] Signed By: 02/06/25 0948 [facility]05-02-2025 History of Present illness Narrative * Markel [...] boot. Ref # [id number] documented in this [facility] [id number] History of Present illness Narrative* Stevan Alicia MD - 01/12/2025 9:15 AM EDT Images from the original note were not included. dc Stevan Alicia MD Obstetrics and Gynecology Patient: [...] though her weight is currently stable. Her engine repairer service has noted that she chakraborty calories easily. 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 07/18/2023 Allergies Anemia Anxiety Arthritis of carpometacarpal (CMC) joint of right thumb 12/28/2023 Bipolar II disorder ([facility]) 07/18/2023 Bowel obstruction ([facility]) 1994 Chicken pox Chronic allergic rhinitis 07/18/2023 Chronic maxillary sinusitis Chronic vaginitis 07/18/2023 SANGITA I (cervical intraepithelial neoplasia I) 07/18/2023 Contusion of right foot 12/28/2023 COPD (chronic obstructive pulmonary disease) ([facility]) De Quervain's tenosynovitis, right 12/28/2023 Depression ([facility]) Dysmenorrhea 07/18/2023 Endometriosis of uterus 08/04/2009 Foot fracture, right 2019 broken right foot Genital herpes simplex 09/22/2009 GERD (gastroesophageal reflux disease) H/O tubal ligation 2009 Headache History of medical problems routine blood donor- every 56 days per pt History of medical treatment 2000 diagnostic lap History of menorrhagia 12/28/2023 HSV-2 infection Hypertension (CMS/HCC) Insomnia, persistent 12/28/2023 Iron deficiency anemia 12/28/2023 [...] 2019 TUBAL LIGATION 08/2008 WISDOM TOOTH EXTRACTION 2015 WISDOM TOOTH EXTRACTION 1996 Family History Problem [...] steps yesterday). Valtrex refilled documented in this encounterOzarks Community [id number] Instructions* Patient Instructions* Stevan Alicia MD - [...] cyst is slightly larger documented in this [facility]04-11-2025 Evaluation note* Diagnosis Onset Date Resolution Status [...] Iron deficiency anemia chronic y 2024 8:56am Back pain, thoracic acute February 25, 2025 7:59am Chronic pain acute February 25, 025 7:59am Myalgia acute February 25 7:59am Other skin changes acute February 152024 11:29am [facility] Work Phone: 1(835) 587-548804-11-2025 Evaluation note* Diagnosis Onset Date Resolution Status [...] 10:08am Myalgia acute March 23, 2025 10:08am [facility] Work Phone: 1(299) 196-835703-27-2025 Evaluation note* Diagnosis Onset Date Resolution Status [...] deficiency anemia chronic Ma y 2024 8:56am [facility] Work Phone: 1(508) 433-588703-27-2025 Evaluation note* Diagnosis Onset Date Resolution Status [...] 025 7:59am Myalgia acute February 25 7:59am [facility] Work Phone: 1([phone]) 464-232502-28-2025 Evaluation note* Diagnosis Onset Date Resolution Status [...] 9:40am Toe pain, left acute December 9:40am [facility] Work Phone: 1(470) 801-965201-17-2025 Evaluation note* Diagnosis Onset Date Resolution Status Admit Date Arthritis of carpometacarpal (CMC) joint of right thumb acute 2024 8:56am Arthritis of right hand acute J anuary 2024 8:56am De Quervain's tenosynovitis, right acute October 03 8:56am Right wrist pain acute October 03, 2024 8:56am Arthritis of carpometacarpal (CMC) joint of right thumb acute 2024 9:18am Arthritis of right hand acute F ebruary 2024 9:18am De Quervain's tenosynovitis, right acute November 14, 2 025 9:18am Right wrist pain acute November 14, 2024 9:18am [facility] Work Phone: 1(135) 906-614801-17-2025 Evaluation note* Diagnosis Onset Date Resolution Status Admit Date Arthritis of carpometacarpal (CMC) joint of right thumb acute 2024 8:56am Arthritis of right hand acute J anuary 2024 8:56am De Quervain's tenosynovitis, right acute October 03 8:56am Right wrist pain acute October 03, 2024 8:56am Arthritis of carpometacarpal (CMC) joint of right thumb acute Febru jm2024 9:18am Arthritis of right hand acute [...] 9:40am Toe pain, left acute December 9:40am [facility] Work Phone: 1(959) 414-364010-31-2024 History of Present illness Narrative* Lise Benavides MA - 07/17/2024 8:15 AM EDT Images from [...] Pap smear of vagina Adult celiac disease ([facility]) 12/28/2023 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 07/18/2023 Allergies Anemia Anxiety Arthritis of carpometacarpal (CMC) joint of right thumb 12/28/2023 Bipolar II disorder ([facility]) 07/18/2023 Bowel obstruction ([facility]) 1995 Chicken pox Chronic allergic rhinitis 07/18/2023 Chronic maxillary sinusitis Chronic vaginitis 07/18/2023 SANGITA I (cervical intraepithelial neoplasia I) 07/18/2023 Contusion of right foot 12/28/2023 De Quervain's tenosynovitis, right 12/28/2023 Depression ([facility]) Dysmenorrhea 07/18/2023 Endometriosis of uterus 08/04/2009 Foot fracture, right 2019 broken right foot Genital herpes simplex 09/22/2009 H/O tubal ligation 2008 Headache History of medical problems routine blood donor- every 56 days per pt History of medical treatment 2000 diagnostic lap History of menorrhagia 12/28/2023 HSV-2 infection Hypertension ([facility]) Insomnia, persistent 12/28/2023 Iron deficiency anemia 12/28/2023 Menorrhagia with irregular cycle 07/18/2023 Migraine ([facility]) Mixed incontinence 06/30/2024 Mixed stress and urge [...] 2019 TUBAL LIGATION 08/2008 WISDOM TOOTH EXTRACTION 2015 WISDOM TOOTH EXTRACTION 1995 Family History Problem [...] and insomina. Patient would like biod[facility]icles from [facility], script sent. documented in this [facility]10-31-2024 Instructions* Patient Instructions* Stevan Alicia MD - 07/17/2024 8:15 AM EDT Images from the original note were not included. documented in this [facility]10-28-2024 Telephone encounter Note* Telephone Encounter - ElviaPalencia - 07/14/2024 10:11 AM EDT . [facility] [id number] Miscellaneous Notes* Telephone Encounter - Elvia Wheatley - 07/14/2024 10:11 AM EDT . documented in this encounterOzarks Community [id number] History of Present illness Narrative* Stevan Alicia MD - 07/10/2024 2:39 PM EDT Positive culture documented in this encounterOzarks Community [id number] History of Present illness Narrative* Stevan Alicia [...] of colonoscopy and was referred to a machine feed operator for a vein-like issue near the anal area. The machine feed operator advised her to leave it alone. The [...] and experiences was provided. RT ovary cyst- [id number] 1.3 [id number] 1.6 LT ovary cyst- [id number] 1.2 [id number] 1.06 See chart for report. 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 07/18/2023 Allergies Anemia Anxiety Arthritis of carpometacarpal (CMC) joint of right thumb 12/28/2023 Bipolar II disorder ([facility]) 07/18/2023 Bowel obstruction ([facility]) 1995 Chicken pox Chronic allergic rhinitis 07/18/2023 Chronic maxillary sinusitis Chronic vaginitis 07/18/2023 SANGITA I (cervical intraepithelial neoplasia I) 07/18/2023 Contusion of right foot 12/28/2023 De Quervain's tenosynovitis, right 12/28/2023 Depression ([facility]) Dysmenorrhea 07/18/2023 Endometriosis of uterus 08/04/2009 Foot fracture, right 2019 broken right foot Genital herpes simplex 09/22/2009 H/O tubal ligation 2009 Headache History of medical problems routine blood donor- every 56 days per pt History of medical treatment 2000 diagnostic lap History of menorrhagia 12/28/2023 HSV-2 infection Hypertension ([facility]) Insomnia, persistent 12/28/2023 Iron deficiency anemia 12/28/2023 Menorrhagia with irregular cycle 07/18/2023 Migraine ([facility]) Mixed incontinence 06/30/2024 Mixed stress and urge [...] 2019 TUBAL LIGATION 08/2008 WISDOM TOOTH EXTRACTION 2015 WISDOM TOOTH EXTRACTION 1995 Family History Problem [...] be found in MyChart in 7 days Bone health discussed Return 1 year/prn 1. Hemorrhoid and [...] cysts: - Multiple ovarian cysts with dimensions: [id number], [id number], [id number], and a larger cyst measuring [id number] - Plan: a) Monitor the size and [...] or irregular menstrual bleeding. documented in this encounterOzarks Community [id number] History of Present illness Narrative* Marta Hernandez DO - 07/01/2024 3:15 PM EDT Images from the original note were not included. 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 07/18/2023 Allergies Anemia Anxiety Arthritis of carpometacarpal (CMC) joint of right thumb 12/28/2023 Bipolar II disorder ([facility]) 07/18/2023 Bowel obstruction ([facility]) 1994 Chicken pox Chronic allergic rhinitis 07/18/2023 Chronic maxillary sinusitis Chronic vaginitis 07/18/2023 SANGITA I (cervical intraepithelial neoplasia I) 07/18/2023 Contusion of right foot 12/28/2023 De Quervain's tenosynovitis, right 12/28/2023 Depression ([facility]) Dysmenorrhea 07/18/2023 Endometriosis of uterus 08/04/2009 Foot fracture, right 2019 broken right foot Genital herpes simplex 09/22/2009 H/O tubal ligation 2008 Headache History of medical problems routine blood donor- every 56 days per pt History of medical treatment 2000 diagnostic lap History of menorrhagia 12/28/2023 HSV-2 infection Hypertension ([facility]) Insomnia, persistent 12/28/2023 Iron deficiency anemia 12/28/2023 Menorrhagia with irregular cycle 07/18/2023 Migraine ([facility]) Mixed incontinence 06/30/2024 Mixed stress and urge [...] Chronic obstructive pulmonary disease, unspecified COPD type ([facility] H[facility]) - tiotropium (Spiriva Respimat) 2.5 MCG/ACT inhaler; [...] COPD. Marta Hernandez DO documented in this encounterOzarks Community [id number] Evaluation note* Diagnosis Onset Date Resolution Status [...] 2023 10:22am Restless leg syndrome chronic Nov ember 2023 10:22am [facility] Work Phone: 1(126) 292-543104-09-2024 Evaluation note* Author Spencer Valadez [facility] Authored December 25, 2023 11:2 8am 48 y/o female referred to [facility] for evaluation of abdominal pain. Patient reports intermittent upper abdominal pain and bloating for 2-3 years. + iron deficiency anemia on iron supplementation for 3 years. + NSAIDs use + early satiety Will arrange for EGD/Colonoscopy then will determine the need to increase omeprazole 40 mg daily [facility] Work Phone: 1(925) 148-476002-09-2024 History of Present illness Narrative* Dio Lara, - 10/26/2023 10:15 AM EST Images from the original note were not included. Katy Banuelos 1975 Katy Banuelos is a 48 y.o. female presents with chief complaint of HIDA scan results HPI: HPI Katy presents to review the results of the [...] 07/18/2023 Allergies Anemia Anxiety Bipolar II disorder ([facility]) 07/18/2023 Bowel obstruction ([facility]) 1994 Chicken pox Chronic allergic rhinitis 07/18/2023 Chronic maxillary sinusitis Chronic vaginitis 07/18/2023 SANGITA I (cervical intraepithelial neoplasia I) 07/18/2023 Depression ([facility]) Dysmenorrhea 07/18/2023 Endometriosis of uterus 08/04/2009 Foot fracture, right 2019 broken right foot Genital herpes simplex 09/22/2009 H/O tubal ligation 2008 Headache History of medical problems routine blood donor- every 56 days per pt History of medical treatment 2001 diagnostic lap HSV-2 infection Hypertension ([facility]) Menorrhagia with irregular cycle 07/18/2023 Migraine ([facility]) Mixed stress and urge incontinence 07/18/2023 x2 [...] TOOTH EXTRACTION 2016 WISDOM TOOTH EXTRACTION 1995 FAMILY HISTORY Family History Problem Relation Name [...] I'll see her PRN. documented in this encounterOzarks Community [id number] Evaluation note* Encounter Date Diagnosis Assessment Notes Treatment Notes Treatment Clinical Notes Aug, Adenomyosis, gallbladder (ICD-10 - K82.8) Aug, RUQ pain (ICD-10 - R10.11) [facility] Other 12-19-2023 Evaluation note* Encounter Date Diagnosis Assessment Notes [...] follow up in 4 weeks for reevaluation. [facility] Other 12-04-2023 Evaluation note* Encounter Date Diagnosis [...] dentist info given to pt. OARRS reviewed. [facility] Other 11-01-2023 Evaluation note* Encounter Date Diagnosis [...] pain (ICD-10 - G89.29) UDS performed through [employer] today, will await confirmatory results. Jul, Other [...] negative findings were considered in medical decision-making. 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 You can also purchase rbxc-omx-dmgcrcp medicines. Medicines may have nicotine in them [...] and encouragement. Call telephone quitlines, such as 3-518-PXFQ-NOW, reach out to support groups, or work [...] provider. Document Revised: 08/25/2022 Document Reviewed: 08/25/2022 [employer] Patient Education 2022 [email or web address]. 05/16/2023 09:22:48 Kegel Exercises Kegel Exercises Kegel [...] provider. Document Revised: 01/12/2022 Document Reviewed: 01/12/2022 [employer] Patient Education 2022 [email or web address]. Follow Up Care 04/17/2023 08:34:14 With:EJ ELLIS, GIANNA Jimenez, URL Address: [address] [place] [address] Angelica [facility] 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 Document Revised: 01/12/2022 Document Reviewed: 01/12/2022 [employer] Patient Education 2022 [email or web address]. 05/02/2023 10:42:42 Urinary Incontinence Urinary Incontinence Urinary [...] nerve stimulation). ?For women, using a medical microbiologist to prevent urine leaks. This is a [...] right after experiencing incontinence. General instructions Take lmrc-vpu-cccjkca and prescription medicines only as told by [...] important. Where to find more information National [place] of Diabetes and Digestive and Kidney Diseases: www.niddk.nih.gov [employer] [employer]: www.urologyhealth.org Contact a health care [...] provider. Document Revised: 04/08/2021 Document Reviewed: 04/08/2021 [employer] Patient Education 2022 [email or web address]. Follow Up Care 04/17/2023 08:30:21 With:GIANNA KAPLAN PA-C, URL Address: [address] [place] [address] [phone] When: Unknown Comments:PFPT #3 on 05/09/23 [facility] 08-09-2023 Hospital Discharge instructions Patient Education 04/25/2023 [...] relieve pelvic muscle tension or spasms. Take qxtk-unx-vxoxzft and prescription medicines only as told by [...] provider. Document Revised: 01/11/2022 Document Reviewed: 01/11/2022 [employer] Patient Education 2022 [email or web address]. Follow Up Care 04/17/2023 08:27:59 With:EJ ELLIS, GIANNA Jimenez, URL Address: [address] [place] [address] [phone] When: Unknown Comments:PFPT #2 on 05/02/23 [facility] 07-14-2023 Evaluation note* Encounter Date Diagnosis [...] pt states it is stable on present [employer] Other 06-09-2023 Evaluation note* Encounter Date Diagnosis Assessment Notes Treatment Notes Treatment Clinical Notes Feb, Right-sided chest pain (ICD-10 - R07.9) Pt concerned about cardio and pulm causes. Vitals are stable will recheck with test ordered. 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 Refilled med Feb, Chronic cough (ICD-10 - R05.3) Refilled med. [facility] Other 04-03-2023 Evaluation note* Encounter Date Diagnosis Assessment Notes Treatment Notes Treatment Clinical Notes Dec, Other iron deficiency anemia (ICD-10 - D50.8) [...] smoking, benefits to quiting and options available [facility] Other 02-28-2023 Evaluation note* Encounter Date Diagnosis Assessment Notes Treatment Notes Treatment Clinical Notes Oct, Seasonal allergic rhinitis, unspecified trigger (ICD-10 - J30.2) [facility] Other 01-04-2023 Progress note Author Jana Ridley [facility] September 20, 2022 4:41pm Note Date/Time September 20, 2022 11 :53am [facility] [place] [address] Hem/Onc Follow Up Note - OP Signed Patient: Katy Banuelos MR#: [id number] : 1975 Acct:[id number] Age/Sex: 47 / F Type: REG RCR Copies to: MD Stevan Luna MD-[facility]~ Subjective Date/Time of Service: Date of Service: 09/20/2022 Time of Service: 11:52 Chief Complaint: Patient is here for a 2 month follow up, with labs for review. No concerns voiced at this time. HPI: 09/20/2022: Katy is here for follow-up and lab review after receiving 3 infusions of [id number] mg IV 07/25 through 08/04/2022. She does [...] her results. (2) Restless leg syndrome Her [facility] physician Dr. Apodaca reported that the [...] for coordination of care (as documented) and rtmp-zw-qijp counseling of patient and/or family. Dictated By: Jana Ridley MD DD/ 1152 Signed By: <Electronically signed by MD Jana Ridley> 09/20/22 1645 [facility] Work Phone: 1(304) 316-462712-01-2022 Hospital Discharge instructions Patient Education 08/17/2022 10:54:19 [...] reconstructed. Follow these instructions at home: Take jzwo-epg-qykvlwy and prescription medicines only as told by [...] 09/29/2016 Document Revised: 04/16/2019 Document Reviewed: 04/16/2019 [employer] Patient Education 2020 [email or web address]. Follow Up Care 08/09/2022 12:14:18 With:EJ ELLIS, GIANNA Jimenez, URL Address: [address] [place] [address] When:6 weeks [facility] [place] 11-01-2022 Consult note Author Kye Apodaca [facility] July 18, 2022 4:40pm Note Date/Time July 18, 2022 4 :30pm [facility] [address] [place] [address] Hem/Onc Consult Note - OP Signed Patient: Katy Banuelos MR#: [id number] : 1975 Acct:[id number] Age/Sex: 47 / F Type: REG RCR [...] son with established celiac diseaseaccording to her ON LICENSE OF [facility] - Medical History Medical History: [...] for coordination of care (as documented) and qthv-sc-yfwh counseling of patient and/or family. Dictated By: Kye Apodaca MD DD/ 1627 Signed By: <Electronically signed by Kye Apodaca MD> 07/18/22 1640 [facility] Work Phone: 1(249) 941-961311-02-2018 Evaluation note* Diagnosis Onset Date Resolution Status [...] wrist pain acute October 03, 2024 8:56am [facility] Work Phone: 1(330) 839-651311-02-2018 Evaluation note* Diagnosis Onset Date Resolution Status Admit Date Acute maxillary sinusitis, unspecified July 19, 2018 acute August 20, 2024 9:48am Back pain, thoracic acute Decem 2023 9:48am Insomnia, persistent acute Dece mb2023 9:48am TMJ (dislocation of temporomandibular joint) acute Decembe r 2023 9:48am Arthritis of carpometacarpal (CMC) joint of right thumb acute 2024 8:56am Arthritis of right hand acute J anuary 2024 8:56am De Quervain's tenosynovitis, right acute October 03 8:56am Right wrist pain acute October 03, 2024 8:56am [facility] Work Phone: 1(429) 635-561211-02-2018 Evaluation note* Diagnosis Onset Date Resolution Status [...] De Quervain's tenosynovitis, right acute November 14, 025 9:18am Right wrist pain acute November 14, 2024 9:18am [facility] Work Phone: Evaluation + Plan note Future Appointments Appointment Date:11/20/2022 10:30:00 AM Scheduled Provider:Willem HARRIS MD [facility] Appointment Type:URO Office Visit [facility] Evaluation + Plan note Future Appointments Appointment Date:05/02/2023 10:30:00 AM Scheduled Provider:GIANNA KAPLAN PA-C Location[facility] Appointment Type:URO Procedure 30 min Appointment Date:05/09/2023 09:30:00 AM Scheduled Provider:GIANNA KAPLAN PA-C Location[facility] Appointment Type:URO Procedure 30 min Appointment Date:05/16/2023 09:30:00 AM Scheduled Provider:GIANNA KAPLAN PA-C [facility] Procedure 30 min Appointment Date:05/30/2023 09:30:00 AM Scheduled Provider:GIANNA KAPLAN PA-C [facility] Type:[facility]O Procedure 30 min Appointment Date:06/13/2023 09:30:00 AM Scheduled Provider:GIANNA KAPLAN PA-C Location[facility] Appointment Type:URO Procedure 30 min [facility] Evaluation + Plan note Future Appointments Appointment Date:05/09/2023 09:30:00 AM Scheduled Provider:GIANNA KAPLAN PA-C [facility] Appointment Type:URO Procedure 30 min Appointment Date:05/16/2023 09:30:00 AM Scheduled Provider:GIANNA KAPLAN PA-C [facility] Appointment Type:URO Procedure 30 min Appointment Date:05/30/2023 09:30:00 AM Scheduled Provider:GIANNA KAPLAN PA-C [facility] Type[facility] Procedure 30 min Appointment Date:06/13/2023 09:30:00 AM Scheduled Provider:GIANNA KAPLAN PA-C Location[facility] Appointment Type:URO Procedure 30 min [facility] Evaluation + Plan note Future Appointments Appointment Date:05/16/2023 09:30:00 AM Scheduled Provider:GIANNA KAPLAN PA-C Location[facility] Appointment Type:URO Procedure 30 min Appointment Date:05/30/2023 09:30:00 AM Scheduled Provider:GIANNA KAPLAN PA-C Location[facility] Appointment Type:URO Procedure 30 min Appointment Date:06/13/2023 09:30:00 AM Scheduled Provider:GIANNA KAPLAN PA-C [facility] Appointment Type:URO Procedure 30 min [facility] Evaluation + Plan note Future Appointments Appointment Date:03/14/2024 01:45:00 PM Scheduled Provider:Girma Delgado MD [facility] Type:Cardiology Follow Up (FT) Future Scheduled Tests Laboratory* Sedimentation Rate Automated 01/30/24 * Comprehensive Metabolic Panel 01/30/24 * C-Reactive Protein 01/30/24 * Lipid Panel 01/30/24 Radiology* US Carotid Duplex [facility]ments Appointment Date:03/14/2024 01:45:00 PM Scheduled Provider:Sandy DELEON, Girma Dawson Location:.[facility] Appointment Type:Cardiology Follow Up (FT) [facility] assessment information available [facility] Work Phone: Evalutelhl note* Diagnosis Onset Date Resolution Status Adult celiac disease acute Iron deficiency acute Iron deficiency anemia acute Restless leg syndrome acute [facility] Work Phone: Evaluation noteNo InformationNort [employer] Other Evjigvcybb note* Diagnosis Right upper quadrant pain- Primary Abdominal pain, right upper quadrant documented in this encounter [facility] HealthcareEvaluation note* Diagnosis Onset Date Resolution Status Injury of thumb, right acute Arthritis of carpometacarpal (CMC) joint of right thum b acute Arthritis of right hand acut e De Quervain's tenosynovitis, right acute Right hand pain acute Right wrist pain acute [facility] Work Phone: Evhimtvhhd note* Diagnosis Onset Date Resolution Status Arthritis [...] tenosynovitis, right acute Right wrist pain acute [facility] Work Phone: evaluation note* Diagnosis Onset Date Resolution Status Arthritis [...] tenosynovitis, right acute Right wrist pain acute [facility] Work Phone: Evaluation note* Diagnosis Onset [...] tenosynovitis, right acute Right wrist pain acute [facility] Work Phone: Evaluation note* Diagnosis Chronic [...] thoracic acute Bloating acute Raynauds disease acute [facility] Work Phone: Evaluation note* Diagnosis Mood swings Other specified episodic mood disorder Vaginal itching Pruritus of genital organs Vaginal discharge Leukorrhea, not specified as infective Cysts of both ovaries Other and unspecified ovarian cyst Abnormal CBC Other abnormal blood chemistry Iron deficiency anemia, unspecified iron deficiency anemia type Insomnia, unspecified type documented in this encounter [facility] HealthcareEvaluation note* Diagnosis Encounter for gynecological examination [...] Chronic obstructive pulmonary disease, unspecified COPD type (HCC)- Primary Cigarette smoker Tobacco use disorder documented in this encounter [facility]* Diagnosis Iron deficiency Disorders of iron metabolism documented in this encounter [facility] HealthcareHistory general [...] History HYSTEROSCOPY, ABLATION Hospitalization History SEE SURGICAL [facility] Other History general Narrative - Reported* Type [...] History HYSTEROSCOPY, ABLATION Hospitalization History SEE SURGICAL [facility] Other History general Narrative - Reported* Type [...] HYSTEROSCOPY, ABLATION Hospitalization History SEE SURGICAL HX [facility] Other Hospital course Narrative No data available for this section [facility] Hospital Discharge instructions No data available for this section [facility] No data available for this section [facility] Progress note Author Jana Ridley [facility] September 20, 2022 4:41pm Note Date/Time September 20, 2022 11 :53am [facility] [place] [address] Hem/Onc Follow Up Note - OP Signed Patient: Katy Banuelos MR#: [id number] : 1975 Acct:[id number] Age/Sex: 47 / F Type: REG RCR Copies to: MD Stevan Luna MD-[facility]~ Subjective Date/Time of Service: Date of Service: 09/20/2022 Time of Service: 11:52 Chief Complaint: Patient is here for a 2 month follow up, with labs for review. No concerns voiced at this time. HPI: 09/20/2022: Katy is here for follow-up and lab review after receiving 3 infusions of [id number] mg IV 07/25 through 08/04/2022. She does [...] Negative for environmental allergies and food allergies. ON LICENSE OF [facility] - History Attestation statement: The following information [...] her results. (2) Restless leg syndrome Her [facility] physician Dr. Apodaca reported that the [...] for coordination of care (as documented) and gusn-hf-dwnh counseling of patient and/or family. Dictated By: Jana Ridley MD DD/ 1152 Signed By: <Electronically signed by MD Jana Ridley> 09/20/22 1641 [facility] Work Phone: Progress note Author Jeanette Jimenes [facility] Note Date/Time February 06, 2025 9:45a m [facility] [place] [address] Cancer Center Note Signed Patient: Katy Banuelos MR#: [id number] : 1975 Acct:[id number] Age/Sex: 50 / F Type: DEP AMB [...] week prior to 6 month visit with BUSINESS TRANSFORMATION MANAGER. CHEMO PLAN Treatment Plan Iron Sucrose (Venofer) Clinical Indication No Indication Cycle Number Last Admin 1 of Completed Cycle Day Next Admin No Active [...] states she was tested for celiac disease thispasummer and the results came back negative. She [...] mg PO BID PRN 30 days vitamin E65-tiiam acid 0.5-1 mg 1 tab PO DAILY Gastrointestinal Is the patient taking opioids for pain control?: No [place] Precaution Measures Taken: Patient in chair Nurse's Note: Patient is here today for a follow up visit and go over labs ON LICENSE OF [facility] Medical History Medical History Raynauds [...] RESULTS Corrected WBC 7.2 X10E3/uL (3.8-11.6) 01/27/25 11:55 5 Hgb 14.4 g/dL (11.8-15.4) 01/27/25 11:55 01/27/25 Hct 41.5 % (34.0-46.4) 01/27/25 11:55 01/27/25 MCV 101.2 fl (80-100) H 01/27/25 11:55 01/27/25 RDW 13.2 % (11.9-15.3) 01/27/25 11:55 01/27/25 Plt Count 234 x10E3/uL (150-450) 01/27/25 11:55 01/27/25 Iron 151 ug/dL (50-212) 01/27/25 11:55 01/27/25 Iron Saturation 46.7 % (20-50) 01/27/25 11:55 01/27/25 Ferritin 30.5 ng/mL (11.0-306.8) 01/27/25 11:55 5 Dictated By: JIL Mary DD/ 0858 Signed By: <Electronically signed by JIL Jimenes> 02/06/25 0948 [facility] Work Phone: Reason for referral (narrative)* Consultation (Routine) - Pending Review Specialty Diagnoses / Procedures Referred By Mc t Referred To Contact Gastroenterology Diagnoses Right upper quadrant pain Procedures [place] OFFICE/OUTPATIENT NEW HIGH MDM 60 MINUTES Dio Lara DO [address] [address] Alverto Salinas MD [address] [address] Referral ID Status Reason Start Date Expiration Date Visits Requested Visits Authorized [id number] Pending Review Specialty Services Required 10/26/2023 04/23/2024 1 1 RINA Garcia for referral (narrative)No reason for referral information [facility]Mem[facility] Work Phone: Chief Complaint and Reason [...] 7:55am De Quervain's tenosynovitis, right Augus t 2023 7:55am Right wrist pain May 13, 2024 [...] 2024 9:18am Arthritis of right hand November 14, 9:18am De Quervain's tenosynovitis, right Febru jm 2024 9:18am Right wrist pain November 14, [...] 2024 9:18am Arthritis of right hand November 14, 025 9:18am De Quervain's tenosynovitis, right Febru jm 2024 9:18am Right wrist pain November 14, [...] 2024 9:18am Arthritis of right hand November 14, 2 025 9:18am De Quervain's tenosynovitis, right Febru jm 2024 9:18am Right wrist pain November 14, [...] foot pain April 02, 2025 8:24 am Chief Complaint Admit Date J44.9 January [...] am wellness April 02, 2025 8:24 am 1 MONTH April 22, 2025 10: 10am Reason for Visit Admit Date Blood donor [...] pain, left March 27, 2025 9:41 am Back pain, thoracic April 02, 2025 8:24 am GERD (gastroesophageal reflux disease) J lisa 2024 8:24am Insomnia, persistent April 02, 2025 8:2 4am Right foot pain April 02, 2025 8:24 am TMJ (dislocation of temporomandibular tsering int) April 02, 2025 8:24am Wellness examination April 02, 2025 8:2 4am 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 ne April 22, 2025 10:10am Back pain, thoracic April 22, 2025 10: 10am Chronic pain April 22, 2025 10: 10am Family History Relationship Condition Age at Onset [...] 1 Adenomyosis, gallbla dder (K82.8) Referral Organization [facility] [employer] Referring Provider First Name Fernanda Referring Provider Last Name Jamey Referring Provider Specialty [facility] [employer] Referred Organization [facility] Referred Provider Dio Lara Referred Address ,[place], [place],[address] Referred Provider Specialty Surgery Referral Priority Routine General Notes Teri Gray 04:49:56 PM >received today, multiple attachments made, notes locked, referral faxed Reason *06/07 TSH 0.35 , unexplained weight loss. Diagnosis 1 Low TSH level (R79.8 9) Referral Organization [facility] [employer] Referring Provider First Name Fernanda Referring Provider Last Name Jamey Referring Provider Specialty [facility] [employer] Referred Organization [facility] Referred Provider Candelario Johansen Referred Address Isabella Kan [facility] [address],[place],[address] Referred Provider Specialty Internal Med icine Referral [...] Dates Fernanda Concepcion MD Primary Care Provider, Stacey berkowitz Active Team Status: Inactive Member Role [...] October 23, 2023 End: October 23, 2023 Binder Cutter Hand Relationship Specialty Start Date End Date Fernanda Concepcion MD [address] [place] [phone] PCP - General Family Medicine 07/16/23 Team [...] June 25, 2024 End: June 25, 2024 Destiny Rodriguez MD Attending Provider Active Start: June 25, 2024 End: June 25, 2024 Binder Cutter Hand Relationship Specialty Start Date End Date Fernanda Concepcion MD [address] [place] [facility] [id number] PCP - General Family Medicine 07/16/23 [employer]utter Hand Relationship Specialty Start Date End Date Fernanda Concepcion MD [address] [place] [facility] [address] PCP - General Family Medicine 07/16/23 Binder Cutter Hand Relationship Specialty Start Date End Date Fernanda Concepcion MD [address] [place] [facility] [address] PCP - General Family Medicine 07/16/23 Binder Cutter Hand Relationship Specialty Start Date End Date Fernanda Concepcion MD [address] [place] [facility] [address] PCP - General Family Medicine 07/16/23 Team Status: Active Member Role Status Dates Fernanda Concepcion MD Primary Care Provide r, Attending Provider Active Start: July 10, 2024 Team Status: Inactive Member Role Status Dates Fernanda Concepcion MD Primary Care Provide r, Attending Provider Active Start: July 14, 2024 End: July 14, 2024 Binder Cutter Hand Relationship Specialty Start Date End Date Fernanda Concepcion MD [address] [place] [facility] [address] PCP - General Family Medicine 07/16/23 B[employer] Cutter Hand Relationship Specialty Start Date End Date Fernanda Concepcion MD [address] [place] [address] Katie [place] [address] PCP - General Family Medicine [...] Care Provider Active Start: August 20, 2024 tUe Griffin APRN Attending Provider Active Start: August 20, 2024 Stevan Alicia MD Referring Provider Active St art: August 20, 2024 Team Status: Inactive Member Role Status Dates Fernanda Concepcion MD Primary Care Provider Active Start: October 03, 2024 End: October 03, 2024 Destiny Rodriguez MD Attending Provider Active Start: October 03, 2024 End: October 03, 2024 Team Status: Active Member Role Status Dates Frenanda Concepcion MD Primary Care Provider Active Start: [...] December 26, 2024 End: December 26, 2024 Binder Cutter Hand Relationship Specialty Start Date End Date Fernanda Concepcion MD [address] [place] [address] PCP - General Family Medicine 07/16/23 Binder Cutter Hand Relationship Specialty Start Date End Date Fernanda Concepcion MD [address] [place] [address] PCP - General Family Medicine 07/16/23 Binder Cutter Hand Relationship Specialty Start Date End Date Fernanda Concepcion MD [address] [place] [phone] PCP - General Family Medicine 07/16/23 Binder Cutter Hand Relationship Specialty Start Date End Date Fernanda Concepcion MD [address] [place] [facility] [address] [facility] 07/16/23 Team Status: Inactive Member Role [...] Provider Active St art: January 27, 2025 Binder Cutter Hand Relationship Specialty Start Date End Date Fernanda Concepcion MD [address] [place] [facility] [phone] [facility] - [facility] 07/16/23 Binder Cutter Hand Relationship Specialty Start Date End Date Fernanda Concepcion MD [address] [place] [facility] [phone] [facility] - [facility] 07/16/23 Team Status: Inactive Member Role Status Dates Fernanda Concepcion MD Primary Care Provider Active Start: February 06, 2025 End: February 06, 2025 Jeanette Jimenes BUSINESS TRANSFORMATION MANAGER-C Attending Provider Active Start: February 06, 2025 [...] Care Provider Active Start: March 10, 2025 eFrnanda Concepcion MD Attending Provider Active St art: [...] April 02, 2025 End: April 02, 2025 Team Status: Inactive Member Role Status Dates Fernanda Concepcion MD Primary Care Provider Active Start: April 22, 2025 End: April 22, 2025 Tad Zapata MD Attending Provider Active Sta rt: April 22, 2025 End: April 22, 2025 Binder Cutter Hand Relationship Specialty Start Date End Date Fernanda Concepcion MD [address] [facility] [place] [phone] PCP - General Family Medicine 07/16/23 Binder Cutter Hand Relationship Specialty Start Date End Date Fernanda Concepcion MD [address] [facility] [place] [id number] PCP - General Family Medicine 07/16/23 Binder Cutter Hand Relationship Specialty Start Date End Date Fernanda Concepcion MD [address] [facility] [place] [address] PCP - General Family Medicine 07/16/23 Goals (unrecognized section and content) Goals may [...] section and content) DATE CREATED AUTHOR 06/19/2022 [facility] dical Specialist DATE CREATED AUTHOR AUTHOR'S ORGANIZ ATION 12/31/2022 [facility] DATE CREATED AUTHOR AUTHOR'S ORGANIZ ATION 11/30/2023 [facility] DATE CREATED AUTHOR AUTHOR'S ORGANIZ ATION 02/08/2024 [facility] DATE CREATED AUTHOR AUTHOR'S ORGANIZ ATION 02/09/2024 [facility] DATE CREATED AUTHOR AUTHOR'S ORGANIZ ATION 03/16/2024 [facility] DATE CREATED AUTHOR AUTHOR'S ORGANIZ ATION 02/12/2025 [facility] DATE CREATED AUTHOR AUTHOR'S ORGANIZ ATION 05/20/2025 [facility] dical Specialists EPIC REASON FOR VISIT [...] month follow up wi th chest x-ray Reason Onset Date Comments Med Refill 06/08/2025 FOR RECORDS PERTAINING TO PATIENTS WHO ARE [...] BE BASED ON THE PRIMARY CLINICAL RECORDS. [facility]. provides no warranty or guarantee of the accuracy or completeness of information in this document.
--- OUTSIDE RECORDS SUMMARY | 2025-06-27 06:23 | XMS_ITS | Patient Health Record ---
Author Organization [facility] [place] Address [address] [place] [address] Care Team Providers Care Deputy Brand Inspector Name Role Phone Leanne Stanford Primary Care Provider Unavailabl e Allergies No Known Allergies Reason For Referral No Information Medications Medication SIG (Take, Route, Frequency, Duration) Notes Start Date End Date Status Iron Active ALPRAZolam Active Omeprazole Active Social History Tobacco Use: Social History Observation Description Date Details (start date - stop date) Never Smoker NA - NA Tobacco Use/Smoking Question Answer Notes Patient is a nonsmoker Problems Problem Type SNOMED Code ICD Code Onset Dates Problem Status W/U Status Risk Notes Problem Peroneal tendinitis (87360831) Peroneal tendinitis, right leg (M76.71) Active confirmed Problem Contusion of right foot (64528181201021 103) Contusion of right foot, initial encounter (S90.31XA) Active confirmed Plan Of Treatment No Information Insurance Providers Payer Name Payer Address Payer Phone Subscriber Number Group Number Insured Name Patient Relationship to Insured Coverage Start Date Coverage End Date [employer] [place] [employer] [address] [place] [phone] [id number] Katy Horner Self - patient is the insured 3
--- NOTE | 2025-06-27 06:24 | PC.NURSE ---
Pain to left lower jaw, tooth pain.
--- NOTE | 2025-06-27 06:40 | ED.GENADUL1 ---
HPI HPI - General Adult General Chief complaint: Dental/Oral Stated complaint: TOOTHACHE Time Seen by Provider: 06/27/25 06:24 Source: patient Mode of arrival: walk-in History of Present Illness HPI narrative: Patient is a 50-year-old female presenting to the emergency department for evaluation of tooth pain. Patient states she had her left lower tooth extracted 4 days ago. She was doing well postoperatively, however over the last 24 hours, her pain has worsened to the point where she is in excruciating pain. She has only been taking Tylenol for the pain. She states she is currently on amoxicillin. She denies any fevers or chills. No trouble swallowing or breathing. No chest pain or shortness of breath. No fevers or chills. Related Data Home Medications ?Medication ?Instructions ?Recorded ?Confirmed acyclovir 400 mg tablet mg 12/20/23 amoxicillin 500 mg capsule 500 mg PO Q8H 12/20/23 12/20/23 omeprazole 20 mg capsule,delayed 20 mg PO QDAY 12/20/23 12/20/23 release Previous Rx's ?Medication ?Instructions ?Recorded ketorolac 10 mg tablet 10 mg PO TID PRN pain #10 tabs 12/20/23 oxycodone-acetaminophen 5 mg-325 1 tab PO Q6H #10 tabs 01/23/24 mg tablet (Percocet) penicillin V potassium 500 mg 500 mg PO Q6H 10 days #40 tabs 01/23/24 tablet oxycodone-acetaminophen 5 mg-325 1 tab PO Q8H PRN pain 3 days #10 06/27/25 mg tablet tabs Allergies Allergy/AdvReac Type Severity Reaction Status Date / Time No Known Drug Allergies Allergy Verified 06/27/25 06:20 Review of Systems ROS Status of ROS 10 or more systems reviewed and unremarkable except as noted in history and below [facility] Social History Little interest or pleasure in doing things: not at all Feeling down, depressed, or hopeless: not at all Exam Narrative Exam Narrative: CONSTITUTIONAL: Extremely tearful and appears to be in acute pain, answering questions and following commands appropriately SKIN: Was warm and dry. EYES: Sclerae white. EARS, NOSE, THROAT: There is a tooth extraction in the left lower molar tooth #19. There is not appear to be an abscess formation. There is no fluctuance, though it is tender to palpation. Moist oral mucosa. No trismus. No facial, lip, or tongue swelling. Uvula midline. Speaking with a normal voice. No tenderness at the floor of the mouth. No neck swelling. RESPIRATORY: Nonlabored respirations CARDIOVASCULAR: Normal rate and regular rhythm. There is no S3, S4, murmur, rub. GASTROINTESTINAL: Abdomen is nondistended. MUSCULOSKELETAL: No peripheral edema. NEUROLOGIC: Patient is awake and alert. Facies were symmetrical. Constitutional Vital Signs, click to edit/add: Last Vital Signs Temp 98.5 F 06/27/25 06:20 Pulse 96 H 06/27/25 06:20 Resp 20 06/27/25 06:20 BP 131/104 H 06/27/25 06:20 Pulse Ox 99 06/27/25 06:20 O2 Del Method Room Air 06/27/25 06:20 Course Vital Signs Vital signs: Vital Signs Temperature 98.5 F 06/27/25 06:20 Pulse Rate 96 H 06/27/25 06:20 Respiratory Rate 20 06/27/25 06:20 Blood Pressure 131/104 H 06/27/25 06:20 Pulse Oximetry 99 06/27/25 06:20 Oxygen Delivery Method Room Air 06/27/25 06:20 Temperature 98.5 F 06/27/25 06:20 Pulse Rate 96 H 06/27/25 06:20 Respiratory Rate 20 06/27/25 06:20 Blood Pressure 131/104 H 06/27/25 06:20 Pulse Oximetry 99 06/27/25 06:20 Oxygen Delivery Method Room Air 06/27/25 06:20 Medical Decision Making [facility] Narrative Medical decision making narrative: Patient is a 50-year-old female presenting to the emergency department for evaluation of dental pain. She is 4 days postop from tooth #19 extraction. She is currently on antibiotics. Vital signs are within normal limits. She is afebrile hemodynamically stable. Examination as noted above. Differential diagnosis includes normal postextraction pain, alveolar osteitis, neuropathic pain. She is already on antibiotics, and there does not appear to be an acute, severe dental infection. There is no facial swelling, neck swelling, gingival fluctuance, or any other evidence of severe ENT infection. She has no trismus and I have low concern for an acute airway compromise. I do believe the patient is stable for discharge. She has an appointment with her dentist in 2 days. She was given topical benzocaine and oral [place] for pain control. She was given a prescription for [place] 5 mg x 10 tablets. Return precautions were given for any new or concerning symptoms, such as difficulty breathing/swallowing, fevers, or facial swelling. Patient understands and agrees the plan. FINAL IMPRESSION: #Acute postextraction dental pain DISPOSITION: Discharged home CONDITION: Fair Discharge Plan Discharge Chief Complaint: Dental/Oral Clinical Impression: Toothache Patient Disposition: Home, Self-Care Time of Disposition Decision: 06:31 Condition: Fair Mode of Transportation: Private Vehicle Prescriptions / Home Meds: New oxycodone-acetaminophen 5-325 mg tablet 1 tab PO Q8H PRN (Reason: pain) 3 Days Qty: 10 0RF No Action acyclovir 400 mg tablet omeprazole 20 mg capsule,delayed release(DR/EC) 20 mg PO QDAY amoxicillin 500 mg capsule 500 mg PO Q8H ketorolac 10 mg tablet 10 mg PO TID PRN (Reason: pain) Qty: 10 0RF penicillin V potassium 500 mg tablet 500 mg PO Q6H 10 Days Qty: 40 0RF oxycodone-acetaminophen [Percocet] 5-325 mg tablet 1 tab PO Q6H Qty: 10 0RF Print Language: Bulgarian Instructions: Toothache (ED) Referrals: Laenne Stanford MD [Primary Care Provider, Family Practice] - 1 week
[2025-06-27] MEDS: IBUPROFEN 400 MG TABLET 800 MG PO (06:55)
[2025-06-27] MEDS: HYDROCODONE/ACET 5-325 MG TABLET 2 TAB PO (06:55)
[2025-06-27] MEDS: BENZOCAINE 30 ML, lidocaine HCL 15 ML MM (06:55)
== END 2025-06-27 07:06 | disposition home or self-care (01) ==
PROVIDERS: Emergency Provider Student in an Organized Health Care Education/Training Program; PCP Family Medicine
DX: K08.89 Other specified disorders of teeth and supporting structures (principal); Z98.818 Other dental procedure status
CPT/HCPCS: 99284

== ENCOUNTER 2025-07-17 10:01 | Outpatient (OUT) | payer OTHER, SELFPAY ==
--- OUTSIDE RECORDS SUMMARY | 2025-07-13 06:57 | XMS_ITS | Continuity of Care Document ---
Author Organization [facility] Address [address] [place] [address] Phone Care Team Providers Care Edger Tailer Name Role Phone Leanne Stanford MD Primary Care Provider Tad Zapata MD Attending Provider [phone] Elida Moreau CMA Attending Provider Unavaila Nidia Olivas DO Attending Provider Destiny Rodriguez MD Attending Provider Care Teams Patient Care Team Team Status: Active Member Role/Relationship Status Dates Leanne Stanford MD Primary Care Provider Active Visit Care Team Team Status: Inactive Member Role/Relationship Status Dates Leanne Stanford MD Primary Care Provider Active Start: April 22, 2025 End: April 22, 2025ThCristiano Thornton ProviderActiveStart: April 22, 2025 End: April 22, 2025 Visit Care Team Team Status: Active Member Role/Relationship Status Dates Leanne Stanford MD Primary Care Provider Active Start: June 30, 2025 Elida Moreau CMAAttlewis ProviderActiveStart: June 30, 2025 Visit Care Team Team Status: Inactive Member Role/Relationship Status Dates Leanne Stanford MD Primary Care Provider Active Start: July 06, 2025 End: July 06, 2025Nidia Lambert DOAttlewis ProviderActiveStart: July 06, 2025 End: July 06, 2025 Visit Care Team Team Status: Inactive Member Role/Relationship Status Dates Leanne Stanford MD Primary Care Provider Active Start: July 07, 2025 End: July 07Cristiano Dixon ProviderActiveStart: July 07, 2025 End: July 07, 2025 Patient Care Team Team Status: Inactive Member Role/Relationship Status Dates Leanne Stanford MD Primary Care Provider Active Start: July 13, 2025 End: July 13, 2025ThCristiano Thornton ProviderActiveStart: July 13, 2025 End: July 13, 2025 Chief Complaint and Reason for Visit Chief Complaint Admit Date 1 MONTH April 22, 2025 10: 10am Amb Documentation June 30, 2025 1 0:09am Follow up July 06, 2025 1 0:25am 3 MONTHS July 07, 2025 9 :58am 2 MONTHS July 13, 2025 1 0:13am Reason for Visit Admit Date 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 ne April 22, 2025 10:10am Back pain, thoracic April 22, 2025 10: 10am Chronic pain April 22, 2025 10: 10am Allodynia July 06, 2025 1 0:25am Degenerative disc disease, cervical Octo 2024 10:25am Insomnia July 06, 2025 1 0:25am Migraine headache without aura June 182024 10:25am Myalgia July 06, 2025 1 0:25am Neck pain July 06, 2025 1 0:25am Paresthesia July 06, 2025 1 0:25am Arthritis of carpometacarpal (CMC) joint of right thumb July 07, 2025 9:58am Arthritis of right hand July 07 9:58am Trigger finger, right index finger Octob 2024 9:58am 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 ne July 13, 2025 10:13am Back pain, thoracic July 13, 2025 1 0:13am Chronic pain July 13, 2025 1 0:13am Allergies, Adverse Reactions, Alerts Allergen Type Severity Reaction Last Updated Verified Status No Known Allergies Allergy Unknown July 13, 2025 10:24amYesActive Social History Smoking Status Status Start Date End Date Date of Observa tion Smokes tobacco daily (finding) August 18, 2024 10:00am Observation Status Observation Response Date of Response Legal Sex Female (finding) Sex Assigned At BirthFemaleMay 1974 Family History Relationship Condition Age at Onset Recorded Date/T lisa father Malignant neoplasm of prostate Unknown HypertensionUnknownCerebrovascular accident (CVA)UnknownMalignant neoplasm of urinary bladderUnknownDeceasedUnknowngrandparentLeukemiaUnknown Problems Active Problems Problem Diagnosis/Recorded Date Onset Date Stat us Right hand pain December 04, 2023 11:29am Unknown Active Toe pain, left December 26, 2024 9:49am Unknown Ac tive 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ne April 22, 2025 10:43am Unknown Active Insomnia March 18, 2025 10:07am Unknown Activ e De Quervain's tenosynovitis, right December 04, 2023 11:31am Unknown Active Trigger finger, right index finger July 07, 2025 10:29am Unknown Active Other skin changes March 03, 2025 12:11pm Unknown Active Acute maxillary sinusitis, unspecified November 22, 2023 11:51am July 19, 2018 Active Myalgia February 25, 2025 8:26am Unknown Activ e Paresthesia March 18, 2025 10:06am Unknown Activ e Eye pain October 15, 2024 11:47am Unknown A ctive Chronic pain November 22, 2023 11:51am Unknown Acti ve Adult celiac disease July 18, 2022 4:37pm Unknown Active Blood donor September 20, 2022 5:38pm Unknown Act christopher Migraine headache without aura March 18, 2025 10:07am Unknown Active Anxiety November 22, 2023 11:51am Unknown Acti ve Raynauds disease April 01, 2024 8:47am Unknown A ctive Wellness examination April 02, 2024 2:14pm Unknown Active Allodynia March 18, 2025 10:06am Unknown Activ e Restless leg syndrome July 18, 2022 4:39pm Unknow n Active Degenerative disc disease, cervical March 18, 2025 10:07am Unknown Active Bloating December 25, 2023 11:15am Unknown Acti ve TMJ (dislocation of temporomandibular joint) July 14, 2022 2:39pm Unknown Active Iron deficiency anemia July 18, 2022 4:35pm Unkno wn Active History of menorrhagia September 20, 2022 5:40pm Unknow n Active Right foot pain April 02, 2025 8:50am Unknown Ac tive Right wrist pain December 04, 2023 11:31am Unknown Active Eye abnormalities October 15, 2024 11:42am Unknown Active Neck pain March 18, 2025 10:07am Unknown Activ e Back pain, thoracic November 22, 2023 11:51am Unknown Active GERD (gastroesophageal reflu x disease) April 02, 2025 10:00am Unknown Active Abdominal pain December 25, 2023 11:15am Unknown Ac tive Arthritis of carpometacarpal (CMC) joint of right thumb December 04, 2023 11:29am Unknown Active Insomnia, persistent November 22, 2023 11:51am Unknown Active Arthritis of right hand December 04, 2023 11:29am Unkno wn Active Injury of thumb, right November 21, 2023 6:12pm Unknown Active Menopausal flushing December 15, 2024 2:01pm Unknown Active Iron deficiency July 18, 2022 4:33pm Unknown Active Medications Medication Status Dose Units Route Directions Qty Days Refills S tart Date Stop Date End Date Reason(s) Instructions Adherence Tramadol 50 mg tablet Discontinued 50 MG PO Three times alan ly as needed for pain 90 30 0 November 16, 2023 3:29pm January 10, 2024 2:11pmDislocation of temporomandibular joint Dislocation of jaw, unspecified side, initial encounterAlprazolam 1 mg tablet Dvqgzhxnlyci0HEGXFzksb at bedtime as needed for fzltw86187Itifc 2023 4:35pmJune 2023 8:33amPersistent insomnia Insomnia, unspecifiedteepee splint right thumbDiscontinued0.Route.JOCJORLXY34 January 08, 2024 4:12pmApril 2023 2:21pmAs directedDoxycycline Hyclate 100 mg vmdchuBxiugninrwvw026RVYOQklxz toxlv927Fxv 2023 12:00amJune 2023 10:15amAlprazolam 1 mg dmfqliWpcjejkqhlof1VEJITsecg at bedtime as needed for rqfie18273Tgqg 5th, 2024 8:33amJuly 2023 12:19pmPersistent insomnia Insomnia, unspecifiedOmeprazole 40 mg capsule,delayed release(DR/EC)Discontinued 03YFJSFexe036208Vlgg 2023 12:00amJuly 2024 8:59amAlprazolam 1 mg zdieyeBnludvpftxea1BMKUTxrcx at bedtime as needed for ydtwu49680Kess 2023 12:19pmJuly 2023 9:16amPersistent insomnia Insomnia, unspecifiedTramadol 50 mg olqtcbBlennijlcepq74MGVYCungv times daily as needed for jwei26956Fujo 2023 3:49pmDecember 2023 2:19pmDislocation of temporomandibular joint Dislocation of jaw, unspecified side, sequelaAlprazolam 1 mg tabletDiscontinued1 MGPOTwice daily as needed for pefuo93840Bjfpnu 2023 9:54pmOctober 2023 8:34amPersistent insomnia Insomnia, unspecifiedAlprazolam 1 mg byvjjrFyrmurxsigzw3JBOCUcewc daily as needed for izwdi71690Teguygl 2023 8:34amNovember 2023 6:52amPersistent insomnia Insomnia, unspecifiedAlprazolam 1 mg izolnrNxqmaxkapdxe7LIDPPzdwy daily as needed for hhgbtpp60761Wxrliabz 2023 11:06pmJanuary 2024 11:10am Persistent insomnia Anxiety Insomnia, unspecified Anxiety disorder, unspecifiedIbuprofen 800 mg tabletDiscontinued0.ROUTE.COMPLEX 902December 2023 9:10amSeptember 2024 12:51pmRadial styloid tenosynovitis of right hand Right wrist pain Arthritis of carpometacarpal (CMC) joint of right thumb Arthritis of right hand Radial styloid tenosynovitis [de Quervain] Pain in right wrist Unilateral primary osteoarthritis of first carpometacarpal joint, right hand Primary osteoarthritis, right handTAKE 1 TABLET BY MOUTH EVERY 8 HOURS NEEDED FOR PAINTramadol 50 mg aspchxXjwxyhalnrnw08KCBMByhrd daily as needed for pain60 300December 2023 2:19pmFebruary 2024 3:10pmDislocation of temporomandibular joint Dislocation of jaw, unspecified side, sequelaAlprazolam 1 mg tabletDiscontinued1 MGPOTwice daily as needed for qgncdjs18439Ausaifj 2024 11:10amFebruary 2024 9:54amPersistent insomnia Anxiety Insomnia, unspecified Anxiety disorder, unspecifiedPrazosin 5 mg capsuleDiscontinued0.ROUTE.XHXWEXM757 September 23, 2024 1:11pmMarch 2024 10:08amTAKE 1 CAPSULE BY MOUTH IN THE EVENINGAlprazolam 1 mg icwtcjUnvmedeisson6BIHYUlogt daily as needed for anxiety 20007Qfuzelka 2024 9:54amMarch 2024 2:01pmPersistent insomnia Anxiety Insomnia, unspecified Anxiety disorder, unspecifiedTramadol 50 mg ysxslfOxbizveukmgq44QPNOHmkkn daily as needed for uzmo62842Svdsrbnf 2024 3:10pmMarch 2024 12:34pm Dislocation of temporomandibular joint Dislocation of jaw, unspecified side, sequelaAlprazolam 1 mg tabletDiscontinued1 MGPOTwice daily as needed for zkuurxd10248Pjcjy 2024 2:00pmMarch 2024 11:04amPersistent insomnia Anxiety Insomnia, unspecified Anxiety disorder, unspecifiedTramadol 50 mg ohgnrnBopnrttbtcjh55ISLYAnarx daily as needed for ppoy4417Tfnfg 2024 12:33pmMarch 2024 11:04am Dislocation of temporomandibular joint Dislocation of jaw, unspecified side, sequelaTramadol 50 mg dwzccqTtjfickfcfkx62 MGPOTwice daily as needed for nzei72543Fpv 2024 2:24pmJune 2024 10:03amDislocation of temporomandibular joint Dislocation of jaw, unspecified side, sequelaAlprazolam 1 mg tabletDiscontinued1 MGPOTwice daily as needed for jukldot25477Zeo 2024 2:24pmJune 2024 10:03amPersistent insomnia Anxiety Insomnia, unspecified Anxiety disorder, unspecifiedAlprazolam 1 mg iesxdeMnvcetsquwqf4OFDMZbfwd daily as needed for uuvzmeq45715Vfzb 2024 10:03amJune 2024 10:04amPersistent insomnia Anxiety Insomnia, unspecified Anxiety disorder, unspecifiedTramadol 50 mg zktncjNpajpqgagkon87RESZKdijy daily as needed for qokk64771Ekkq 2024 10:03amJuly 2024 8:28amDislocation of temporomandibular joint Dislocation of jaw, unspecified side, sequelaAlprazolam 1 mg tabletDiscontinued1 MGPOTwice daily as needed for qarygem21846Gddh 2024 10:03amJuly 2024 8:28amPersistent insomnia Anxiety Insomnia, unspecified Anxiety disorder, unspecifiedAlprazolam 1 mg eicincPfvgzuuvukzt6JPRBHesos daily as needed for rvwugus04711Sicg 2024 8:28amAugust 2024 8:03am Persistent insomnia Anxiety Insomnia, unspecified Anxiety disorder, unspecifiedTramadol 50 mg cchsizRsfughzhfufh12PEPYUnryq daily as needed for fzfj92091Utwy 2024 8:28amAugust 2024 8:03amDislocation of temporomandibular joint Dislocation of jaw, unspecified side, sequelaGabapentin 100 mg capsule Uhfivsqkkpuw061RWMPZupjl times uetsy939919Iwel 2024 4:43pmOctober 2024 10:52amAlprazolam 1 mg cecttaQzcszzlandvv9BNUFFzgms daily as needed for edkpazc21625Hiufrl 2024 8:03amSeptember 2024 8:56amPersistent insomnia Anxiety Insomnia, unspecified Anxiety disorder, unspecifiedTramadol 50 mg glnjzfNranuhfztbse70HGUHGrqlx daily as needed for twpq20873Qiacqn 2024 8:03amSeptember 2024 8:56am Dislocation of temporomandibular joint Dislocation of jaw, unspecified side, sequelaIbuprofen 800 mg tabletActive0 .ROUTE.JMMIOWI517Ladsadgak 2024 12:51pmRadial styloid tenosynovitis of right hand Right wrist pain Arthritis of carpometacarpal (CMC) joint of right thumb Arthritis of right hand Radial styloid tenosynovitis [de Quervain] Pain in right wrist Unilateral primary osteoarthritis of first carpometacarpal joint, right hand Primary osteoarthritis, right handTAKE 1 TABLET BY MOUTH EVERY 8 HOURS NEEDED FOR PAINComplies with drug therapyAlprazolam 1 mg guuftyGlaupnnnfqkc8VZLWCxotu daily as needed for hlhjiyk57125Qpgkqplmt 2024 8:56amOctober 2024 9:33amPersistent insomnia Anxiety Insomnia, unspecified Anxiety disorder, unspecifiedTramadol 50 mg lxkazhRjmxjb33JQVRZwzka daily as needed for hdwe65398Iuqsrulgv 2024 8:56amDislocation of temporomandibular joint Dislocation of jaw, unspecified side, sequelaComplies with drug therapy Alprazolam 1 mg yosprdFvogoo7XXOVJfalx daily as needed for fjmthaq90868Uuerzqv 2024 9:33amPersistent insomnia Anxiety Insomnia, unspecified Anxiety disorder, unspecifiedComplies with drug therapyNaloxone (Narcan) 4 mg/actuation spray,non-pynfztbNqauej7VSORBUWHBZARevjct 2 to 3 minutes as needed for opioid obkdjmdx50Unyqurr 2024 12:00amspray 1 dose into ONE nostril; alternate nostrils w each dose until help arrivesComplies with drug therapy Multivitamin (Multiple Vitamin) OmbermYcxnkulackjx6KYCJCTgapoDevjpxa 2021 12:00amMarch 2023 10:28amFolic Acid 1 mg GxncaiHukamh5FNKNYcyqqWutctcu 2021 12:00amComplies with drug therapyPolysaccharide Iron Complex (Pro Fe) 180 mg iron CvwdeufYfiitucnaqhk358PLWQQiwjkWnogmrp 2021 12:00amJanuary 2022 12:27pmBenzonatate 100 mg QhkrtpdVxwiqutmfaae895RKAPVulor times daily July 18, 2022 12:00amMarch 2023 10:38amCholecalciferol (Vitamin D3) (Vitamin D3) 25 mcg (1,000 unit) FcozjprXbooyd53NFBBDFxnmsGeocgobp 1st, 2022 12:00amComplies with drug therapyVitamin E29-Xehgx Acid 0.5-1 mg TabletActive1 TABPODailyNovember 2021 12:00amComplies with drug therapyPolysaccharide Iron Complex (Pro Fe) 180 mg iron LjeqxelYrunrs478GDWRWqgub78454Sbwrazp 2022 1:00amIron deficiency Iron deficiencyComplies with drug therapyNorgestimate-Ethinyl Estradiol (Sprintec (28)) 0.25-35 mg-mcg tpfdqePwocwyqlohit1DLLTPXd DirectedJuly 2018 12:00amNovember 2021 10:48amCetirizine 10 mg qlsziwBndbjndnhcyl21BUJY DailyJuly 2018 12:00amMarch 2023 10:27amAlprazolam 1 mg tablet Xrfbrvkgitvt5BFNAXujthhrFmja 2018 12:00amMarch 2023 1:03pmAcyclovir 200 mg ykmoaxhHikbzslqalal584NXRYTtozcDpor 2018 12:00amApril 2023 2:12pmTramadol 50 mg kwccywKmcmifapwtal18EZPGDelsjMdtz 2018 12:00am July 18, 2022 10:49amOmeprazole 20 mg capsule,delayed release(DR/EC) Npkzwcsldfiu61XOTOSungxXhki 2018 12:00amJun2023 8:18amIbuprofen 800 mg xftonlXhgkjjeyyetd473EMQRA8L as needed for owbk218Ldrk 2018 12:00am December 10, 2023 1:03pmOxycodone-Acetaminophen (Percocet) 5-325 mg tablet Ntprdxatkhwn3ONXNSTCUJJ 4-6 HOURS as needed for bdoh1028Symf 2018Nov2021 10:48amOther acute postprocedural painCephalexin 500 mg capsule Yeabynpwizni056OMKSH5T0367Fivl 2018 12:00amOctober 2021 2:49pm Fluconazole (Diflucan) 150 mg xzghadTgryxnqeurmm588VJSRPkbzd898Vsje 2018 3:15pmNov2021 10:48amadminister on day 1 of therapyMetoprolol Succinate 25 mg tablet extended release 24 hrDiscontinuedMGPOApril 2023 12:00amJune 2023 10:15amTiotropium Monroe (Spiriva Respimat) 2.5 mcg/actuation bodaNdrodioyfslx4BGXCOYYFAFBAQZZfhofXoeaj 2023 12:00am July 14, 2024 9:03amtiotropium bromideDiscontinuedINHALATIONDailyApril 2023 12:00amApril 2023 2:21pmvitamin E (dl, acetate)Vfiwdabtxtbs6ATVLU DailyApril 2023 12:00amNovember 2023 11:33amDiclofenac Sodium (Voltaren Arthritis Pain) 1 % wkeYubrowgapohy0UFIPFPXYlrie gmovf310010Eitut 2023 12:00amJuly 2024 9:05hj8-2 grams topically twice dailyPrednisone 5 mg tiyqizEqahntveitsy6DGXROj Ckqdpbpx3106Nwdsj 2023 12:00amMarch 2023 10:28amTake 4 pills by mouth x2 days, take 3 pills by mouth x2 days, take 2 pills by mouth x2 days, take 1pill by mouth x1 day.Acyclovir 400 mg tablet Grcfoixtqsal095TGLMGswc 2023 12:00amJuly 2024 9:45amteepee splint- right thumbDiscontinued0.Route.JQQDWYSNZ25Hldx 2023 8:41amDecember 2023 11:16amArthritis of carpometacarpal (CMC) joint of right thumb Arthritis of right hand Unilateral primary osteoarthritis of first carpometacarpal joint, right hand Primary osteoarthritis, right hand painAs directed. Please specialty order.Meloxicam 15 mg mwibamXepnntsmvryn29TZIQ Ddvzz950Smwnja 2023 12:00amAugust 2023 8:36ampainMeloxicam 15 mg eulrolAweucnccdzlz87WIHIQoahg746Rrbqew 2023 12:00amOctober 2023 8:14amRight wrist pain Radial styloid tenosynovitis of right hand Arthritis of carpometacarpal (CMC) joint of right thumb Pain in right wrist Radial styloid tenosynovitis [de Quervain] Unilateral primary osteoarthritis of first carpometacarpal joint, right hand Ibuprofen 800 mg rjhvgyCzovziizibnn522ONMPFxrie 8 hours as needed for jwvw575 June 25, 2024 12:00amDecember 2023 9:10amRadial styloid tenosynovitis of right hand Right wrist pain Arthritis of carpometacarpal (CMC) joint of right thumb Arthritis of right hand Radial styloid tenosynovitis [de Quervain] Pain in right wrist Unilateral primary osteoarthritis of first carpometacarpal joint, right hand Primary osteoarthritis, right handMethylprednisolone 4 mg tablets,dose pack DiscontinuedMGPOJuly 2024 12:00amOctober 2024 10:19amTramadol 50 mg vkhagwKvwhfjgtzjkv78OYJYFjsnf times daily as neededJuly 2023 12:00amJuly 2023 3:51pmAlprazolam 1 mg fcmqtpNvlybrpaynzc1VSKQGyrou daily as needed for tyusf26579Uyzn 2023 9:13amAugust 2023 9:55pmPersistent insomnia Insomnia, unspecifiedTramadol 50 mg dpgoarUdkogivbqhtw49AGLGAcnje times daily November 16, 2023 1:00amMarch 2023 3:31pmteepee splint right thumb Discontinued0.Route.IMQEMZPVA32Wadej 2023 12:00amApril 2023 4:12pmAs directedIbuprofen 800 mg okoafjWfrrtkwgcqmm752WXLZAuqiz as needed for zyop956 December 10, 2023 1:00pmJuly 2023 8:45amAlprazolam 1 mg tabletDiscontinued1 KQNWSgvmamx35062Mwrkx 2023 1:01pmApril 2023 4:37pmPersistent insomnia Insomnia, unspecifiedteepee splint- right thumbDiscontinued0.Route.QZHAGJXTS59 February 12, 2024 12:00amJuly 2023 8:41amArthritis of carpometacarpal (CMC) joint of right thumb Arthritis of right hand Unilateral primary osteoarthritis of first carpometacarpal joint, right hand Primary osteoarthritis, right hand painAs directed. Please specialty order.Omeprazole 40 mg capsule,delayed release(DR/EC)Tqurvd04FZRICexos56903Jqmd 2024 8:59amComplies with drug therapyAmoxicillin-Pot Clavulanate 875-125 mg xdcjzgXpugugdfyifj4TMNMHTeozg xxtke483Wfpibxe 2023 12:00amNovember 2023 11:32amFluconazole 150 mg sdfyduFxqqmkwfnxer253XMBMU6Q57Nojtzxc 2023 12:00amNovember 2023 11:33amAlprazolam 1 mg ffvxsiCscwpexjrvqs7RWSAYsmxa daily as needed for anxiety 33149Hkezmpdv2023 6:52amDeceer 2023 11:07pmPersistent insomnia Anxiety Insomnia, unspecified Anxiety disorder, unspecifiedPrazosin 5 mg coznvmyCqfxkphsxmfl1CIOCGyriy evening 300Nov2023 12:00am[facility] 2023 9:35amDoxepin 3 mg tablet Hjrktikmvvfu9JTCVHzdll at bedtime as needed for udzuj176Gzmxqbqr 2023 1:00amNoveer 2023 11:33amSertraline (Zoloft) 25 mg lyutqaUrjhibsnihdt68 MGPODailyFirsthealth [facility]2023 1:00amDecebanner [facility] 2023 11:14amPyridoxine (Vitamin B6) 10 mg runeirJwkrszatujvy92JFSYYjydhWhrxcaxp 2023 1:00am[facility] 20[facility] 11:15amTiotropium Monroe (Spiriva With Handihaler) 18 mcg capsule, w/inhalation kmfsjeSpaymm1NGTSXZKYLANJYQkkjnUqt 2024 12:00ampuncture 1 cap using device; one dose = 2 inhalationsComplies with drug therapyCetirizine (Zyrtec) 10 mg sgxozrdGuweqc50ZJCTMqjuv as neededMay 2024 12:00amComplies with drug therapyPyridoxine (Vitamin B6) 25 mg vmqictWtevix54XZQLTdayc times dailyDece2023 1:00amComplies with drug therapySertraline (Zoloft) 25 mg risrvuOoyctrujgfyk53TXMATqdkbYnejvkge 4th, 2024 1:00amMarch 2024 10:08amAzithromycin 250 mg gomyocVqnzcavgihfq5IB.ASEJRSS79Upjrmaoa 4th, 2024 1:00amMarch 2024 10:06amFor 250 mg dose pack: take 500 mg today (day 1), then 250 mg for 4 days (days 2-5) POPrazosin 5 mg zdtepydWwhabwwqrwrk2JXZOAgvbu axlpuvt181Bjwevuwu 2023 11:19amJanuary 2024 1:12pmPrazosin 5 mg capsuleDiscontinued0.ROUTE.COMPLEX as neededMarch 2024 10:07amJuly 2024 9:43amTAKE 1 CAPSULE BY MOUTH IN THE EVENING PRN;Tramadol 50 mg tablet Vvnqdkrmxsln54VONLLxfyr daily as needed for vzyo76968Luetk 2024 11:03amMay 2024 2:25pmDislocation of temporomandibular joint Dislocation of jaw, unspecified side, sequelaAlprazolam 1 mg tabletDiscontinued1 MGPOTwice daily as needed for rgpxgrb91360Juzeu 2024 11:04amMay 2024 2:25pmPersistent insomnia Anxiety Insomnia, unspecified Anxiety disorder, unspecifiedGabapentin 100 mg capsuleDiscontinuedMGPOJune 2024 12:00amJuly 2024 9:49amGabapentin 100 mg kiustidWwhjxbgdgphq074OGWH Three times dailyJuly 2024 9:47amJuly 2024 4:44pmValacyclovir 500 mg attwxcZdqfln877CDDSJrkabScjk 2024 12:00amComplies with drug therapy Albuterol Sulfate 90 mcg/actuation HFA aerosol nhpgvwqSyjiqf6BKBMLNYGYRJWSQTijl times dailyJuly 2024 12:00amComplies with drug therapySertraline 50 mg qrmpegAubfmj75VXYRJolffYlga 2024 12:00amComplies with drug therapy Cyclosporine (Restasis) 0.05 % kqllohnoqfsXlzmta0UONPTQBH-PWOHXnyld 12 hoursJuly 2024 12:00amComplies with drug therapyOxcarbazepine (Trileptal) 300 mg vknvogWwmjqi3FIXaxnh betxb417Mqkdvna 2024 12:00am1/2 po bid x 2 weeks then 1 po bid. orally twice daily;Complies with drug therapy Immunizations Immunization Event Date Not Given Reason Dose Number Dump Attendant Lot Number Reason(s) Given Vaccine Information Statement (VIS) Detail Administration Location influenza, unspecified formulation May 16, 2021 influenza, unspecified formulationSept2021Tetanus, Diphtheria adult, 5 Lf pres free absOctober 2015 Medical Equipment Device Date Implanted Device Details Video capsule endoscopy system March 17, 2024 U DI: [id number] Issuing Agency: [facility] Device Id: [id number] Expiration Date: 2024-10-02 Lot Number: [id number] Serial Number: [id number] Vital Signs Vital Reading Result Reference Range Collection Date/Time Height 66 [in_i] July 06, 2025 10:68xyWxdgxc89.15 [facility] 2024 10:29amHeart Rate97 /tha41-884Vldqvkv 2024 10:29amOxygen saturation by Pulse aflwqrpq72 % 95-100[facility] 2024 10:29amBP Zgriwppr847 mm[Hg]100-140[facility] 2024 10:29amBP Jjxscvlzm57 mm[Hg]60-100[facility] 2024 10:29amBMI (Body Mass Index)20.3 kg/x0Ynnqprz 2024 10:29am Advance Directives Advance Directive Response Recorded Date/ Time Advance Directives No August 18, 2024 11:00am Insurance Providers Guarantor Katy Flores Address [address] [place] [id number] Info.Home Phone: Payer Group Member ID Coverage Type Subscriber Relationship to Subscriber Effective Date Expiration Date SAMUEL [id number] Mathieu Id: [id number] [address] [place] [id number] Home Phone: self Encounters Encounter Location(s) Arrival/Admit Date Discharge/Departure Date Discharge/Departure Disposition Provider(s) Departed Physician/ Provider Office Visit -[facility] April 22, 2025 10:10am April 22, 2025 10:48am Discharged to home care or self care (routine discharge) Jas Frausto MD Non-patient / Non-visit -[facility] Octob er 2024 10:09am [facility] [place] [place] 10:25amOctober 2024 11:02amDischarged to home care or self care (routine discharge)Nidia Lambert , DODeparted Physician/Provider [facility] 2024 9:58amOctober 2024 10:47amDischarged to home care or self care (routine discharge)Destiny Rodriguez , MDDeparted Physician/Provider Office Visit- [facility] Pain Mgmt [place] 2024 10:13amOctober 2024 10:53amDischarged to home care or self care (routine discharge)Jas Frausto MD Recent Diagnosis Onset Date Admit Date 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ne Unkno wn April 22, 2025 10:10am Back pain, thoracic Unknown April 22, 2025 10:10am Chronic pain Unknown April 22, 2025 10:10am Allodynia Unknown July 06 10:25am Degenerative disc disease, cervical Unknown July 06, 2025 10:25am Insomnia Unknown July 06 10:25am Migraine headache without aura Unknown O ctober 2024 10:25am Myalgia Unknown July 06 10:25am Neck pain Unknown July 06 10:25am Paresthesia Unknown July 06 10:25am Arthritis of carpometacarpal (CMC) joint of right thumb Unknown July 07, 2025 9:58am Arthritis of right hand Unknown July 07, 2025 9:58am Trigger finger, right index finger Unknown July 07, 2025 9:58am 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ne Unkno wn July 13, 2025 10:13am Back pain, thoracic Unknown June 10:13am Chronic pain Unknown July 13 10:13am Assessments Diagnosis Onset Date Resolution Status Admit Date 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 ne acuteAugust 2024 10:10amBack pain, thoracicacuteAugust 2024 10:10am Chronic painacuteAugust 2024 10:10amAllodyniaacuteOctober 2024 10:25amDegenerative disc disease, cervicalacuteOctober 2024 10:25am InsomniaacuteOctober 2024 10:25amMigraine headache without auraacute July 06, 2025 10:25amMyalgiaacuteOctober 2024 10:25amNeck painacute July 06, 2025 10:25amParesthesiaacuteOctober 2024 10:25amArthritis of carpometacarpal (CMC) joint of right thumbacuteOctober 2024 9:58am Arthritis of right handacuteOctober 2024 9:58amTrigger finger, right index fingeracuteOctober 2024 9:58am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ne acuteOctober 2024 10:13amBack pain, thoracicacuteOctober 2024 10:13amChronic painacuteOctober 2024 10:13am Plan of Treatment Author Destiny Rodriguez [facility] CampusAutredOctober 2024 9:52pmExtensive discussion about current condition and treatment options available. We discussed repeat injections into the right thumb CMC and MCP joints, which we will proceed with today. Risks and benefits of the procedure fully explained to the patient and they voiced understanding. Patient was prepped and tolerated the injection well. Call with questions/concerns. Follow up in 3 months. Extensive discussion about current condition and treatment options available. We discussed an injection into the right index finger a-1 anna, which we will proceed with today. Risks and benefits of the procedure fully explained to the patient and they voiced understanding. Patient was prepped and tolerated the injection well. Call with questions/concerns. 50 year old woman with right hand pain [...] - Trial of cortisone injection to thumb MCP joint has been helpful previously and patient desires repeat injection - Trial of cortisone injection to thumb CMC joint has been helpful and patient desires repeat injection - Xrays reviewed previously with patient - Regarding trigger finger, discussion held with patient regarding diagnosis and treatment options. At this time we have discussed nonoperative versus operative treatment modalities. - I would recommend beginning a trial of nonoperative treatment modalities with: 1) cortisone injection to tendon sheath right index finger 2) anti-inflammatory medications on a scheduled basis for reduction of pain and swelling 3) home range of motion exercises - Should nonoperative modalities fail to provide adequate or long-lasting pain relief of symptoms, patient may require operative treatments with decompression of the tendon sheath - Follow up in 3 months for reassessment and potential repeat injection INJECTION ADMINISTERED: - Patient was given an injection of the right thumb CMC joint and right thumb MCP joint and right index finger A-1 anna tendon sheath with: 0.5 cc Kenalog (40 mg/ 1 cc concentration) + 0.5 cc 1% Lidocaine plain without epinephrine at each location - This is the patient's sixth injection - Patient was counseled that there [...] in the area of steroid injection. Author Nidia Lambert [facility] CampusAuthoredOctober 2024 11:24qi56-pfso-mqu female with an odd constellation of symptoms. Her biggest complaint today is that she is having pain and paresthesias on the sides of her head. With allodynia. This does appear to be some neuralgia. We did try gabapentin and was increasing the dose. She did not call to let us know how it went or to get the dose increase to 300 mg 3 times a day. She was somewhat confused about this. She ended up going off of the gabapentin because she ran out and again never called us. She does not feel that the pain is any better or worse being off of the gabapentin. This does seem to be more of a nerve irritation. Will go ahead and do a trial of Trileptal and work up to 300 mg twice a day and see if that helps with this pain. We can consider temporalis muscle trigger point injections however she is currently getting neck and back injections from pain management so we do not want to double up on the dose of steroids so we will try the Trileptal first. She does also have neck pain her EMG was normal without any signs of radiculopathy. This does appear to be more muscle in origin. She is getting some injections from pain management that does seem to be helpful for her. Patient has neck pain. We did just do an EMG that was normal. No signs of radiculopathy. I suspect it is more muscle in origin. She does have some occipital neuralgia however that has been doing fairly well since her occipital nerve block. Zanaflex caused some side effects she did not like the way it made her feel so she discontinued it. Trigger point injections only gave her about a 35% improvement with us. She tried Tegretol for neuropathic pain for 1 month and did not see any benefit- she did not remember this during the visit. Will go ahead and try the Trileptal regardless and see if we get her to a higher dose and see if that helps.. She has had an MRI of the brain that was nonacute. Her cervical MRI was denied due to her not having physical therapy. She did do a short burst of physical therapy and that seemed to trigger her pain so she discontinued it. Will see deficits. Again possible nerve block only gave her 2 weeks of benefit. MRI of the cervical spine 04/08 shows with varying degrees of spinal canal and neural foraminal narrowing she has Modic type I endplate edema Dr. Rodriguez did some injections to her right thumb for arthritis which really was not all that helpful. She also has numbness and tingling into her feet and some gait ataxia and balance issues but this is stable. And that treatment for the neck and head and the feet are connected. 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 EMG bilateral lower extremity 11/09 that was normal so it may be more small fiber. Had normal sed rate CK B12 folate and TSH. I does take vitamin B supplementation. She is difficult to treat as she has tried and failed multiple medications including Flexeril Zanaflex previously gabapentin, baclofen amitriptyline, Tegretol however I am not convinced she gave them all enough time to work. She went to chiropractor and that did not help with her neck pain but did help her back pain. She has episodic migraines that are stable at this point in time. She does have some insomnia likely related to perimenopause which could be worsening some of her symptoms She thinks that maybe washing her hair may be contributing as she does it almost every day. She was counseled to only wash her hair couple days out of the week and may be some dry shampoo if she feels that her hair is greasy or sweaty Will have to see what pain management does for her. Plan She has stopped the gabapentin. We can consider revisiting it as she was only at 200 mg 3 times a day but at this time we will try something else Trileptal 300 mg to half a pill twice a day for 2 weeks and then 1 pill twice a day see what that does Can consider temporalis muscle trigger point injections pending her course Continue with pain management and see what the injections they are do We can reconsider repeat occipital nerve block Continue with ice heat stretching Wash hair only 2 maybe 3 days out of the week Consider a skin biopsy for small fiber damage in her feet Continue with regular exercises Again patient has been a challenge to treat that she has not responded well to medications The diagnosis was all discussed with the patient.?? All questions were answered and they agreed with the treatment plan.?? Patient will call if there are any new issues or questions. Author Tad [facility]ruder HospitalAuthoredAugust 2024 12:57pmTolerable following recent right thoracic paraspinal trigger point injections. We will continue to monitor and proceed with repeat trigger point injections when needed. Patient is also experiencing some foot pain, which per the patient, her manager occupational has stated this may be coming from her lumbar spine. Discussed this was possible, however, should her pain progress we can consider an EMG of her bilateral lower extremities to investigate further for a radiculopathy. We discussed treatment options for the patient's persistent cervical pain. He shows notable pain consistent with degenerative changes of the cervical spine. We discussed the possible benefit of treatment of the facet region for neck pain. Patient is a reasonable candidate for diagnostic bilateral cervical facet medial branch nerve blocks, however, patient would like more time to consider this. She was provided with at home literature for further consideration and was instructed to call into the office should she wish to proceed. Risks and benefits of procedure explained to patient; patient verbalizes understanding. Anatomy of spine discussed in detail with patient in regards to patients condition. Above note written by Rob Jones CMA, Marine Fisheries Technician. Edited and approved by Dr. Tad Zapata MD Author Colton Montes [facility] CampusAuthoredOctober 2024 10:48amWe discussed treatment options for the patient's persistent cervical pain. He shows notable pain consistent with degenerative changes of the cervical spine. We discussed the possible benefit of treatment of the facet region for neck pain. Patient is a reasonable candidate for diagnostic bilateral cervical facet medial branch nerve blocks, however, patient would like more time to consider this. She was provided with at home literature for further consideration and was instructed to call into the office should she wish to proceed. Risks and benefits of procedure explained to patient; patient verbalizes understanding. Anatomy of spine discussed in detail with patient in regards to patients condition. Tolerable following recent right thoracic paraspinal trigger point injections. We will continue to monitor and proceed with repeat trigger point injections when needed. Patient is also experiencing some foot pain, which per the patient, her manager occupational has stated this may be coming from her lumbar spine. Discussed this was possible, however, should her pain progress we can consider an EMG of her bilateral lower extremities to investigate further for a radiculopathy. Above note written by Rob Jones CMA, Marine Fisheries Technician. Edited and approved by Dr. Tad Zapata MD Future Tests Future scheduled test information is unavailable Pending Tests Pending diagnostic test information is unavailable Future Visits Future appointment information is unavailable Future Procedures Future procedure information is unavailable Future Medications Future medication information is unavailable Patient Instructions Patient instructions are unavailable
--- OUTSIDE RECORDS SUMMARY | 2025-07-17 10:07 | XMS_ITS | Clinical Summary ---
Author Organization [facility] Address [address] [place] [address] Care Team Providers Care Computer Typesetter Keyliner Name Role Phone Unavailable Primary Care Provider Unavailabl e Source Comments The following information is NOT included in Care Everywhere downloads:Psychiatric notes, ECG results, Cardiac Rehab notes, Pulmonary Function notes, data from SmartForms (includes but not limited toPregnancy data,audiograms, eye exams, pre-surgical evaluation notes, well-child exam data).[facility] Social History Tobacco UseTypesPacks/DayYears UsedDateSmoking Tobacco: Never Assessed CommentsUnknownSex and Gender InformationValueDate RecordedSex Assigned at Not on fileLegal EpuLhcwcp79/21/2020 9:44 AM EDTGender IdentityNot on fileSexual OrientationNot on file Plan of Treatment Health MaintenanceDue DateLast TokfMdvoypztMvmlsmsvviz1976HIV Test 01/25/1991Hepatitis C Beefjhbt51/11/1994Tdap Ejjwxuv8901/25/1994Hepatitis A (HAV) Vaccine (optional start 19+ years)01/25/1995Hepatitis B (HBV) Vaccine (1 of 3 - 19+ 3-dose series)01/25/1995Tetanus (Td or Tdap) Nrysozn7001/25/1995Pap Smear 01/25/19974735Lsxqtpwlxve57/11/2016CRC Pxbfrxmum44/11/0139Cbjwkxtviez43/11/2021 Cologuard (Stool DNA)01/25/2021FIT01/25/2021OVID-19 Vaccine (2024- season)2025Influenza Vaccine (#1)2025Shingles (RZV) Vaccine (1 of 2) 01/25/2026Pneumococcal Vaccine(s)Aged OutNo longer eligible based on patient's age to complete this topic Insurance on file
--- OUTSIDE RECORDS SUMMARY | 2025-07-17 10:07 | XMS_ITS | Patient Health Record ---
Author Organization [facility] [place] Address [address] [place] [address] Care Team Providers Care Tricot Knitting Machine Operator Name Role Phone Leanne Stanford Primary Care Provider Unavailabl e Allergies No Known Allergies Reason For Referral No Information Medications Medication SIG (Take, Route, Frequency, Duration) Notes Start Date End Date Status Iron ActiveALPRAZolamActiveOmeprazoleActive Social History Tobacco Use: Social History Observation Description Date Details (start date - stop date) Never Smoker NA - NA Tobacco Use/Smoking Question Answer Notes Patient is a nonsmoker Problems Problem Type SNOMED Code ICD Code Onset Dates Problem Status W/U Status Risk Notes Problem Peroneal tendinitis (04940388) Peroneal t endinitis, right leg (M76.71) ActiveconfirmedProblemContusion of right foot (83027927424127604)Contusion of right foot, initial encounter (S90.31XA)Activeconfirmed Plan Of Treatment No Information Insurance Providers Payer Name Payer Address Payer Phone Subscriber Number Group Number Insured Name Patient Relationship to Insured Coverage Start Date Coverage End Date [employer] [place] [employer] [address] [place] [phone] [id number] Sujata Flores - patient is the [id number] 2022
--- OUTSIDE RECORDS SUMMARY | 2025-07-17 10:07 | XMS_ITS | Clinical Summary ---
Author Organization [facility] Address [address] [place] [address] Phone Care Team Providers Care Yarn Dumper Name Role Phone Unavailable Primary Care Provider Unavailabl e Social History Tobacco UseTypesPacks/DayYears UsedDateSmoking Tobacco: Never Assessed CommentsUnknownSex and Gender InformationValueDate RecordedSex Assigned at Not on fileLegal GnlHmazrm62/26/2022 8:35 PM ESTGender IdentityNot on fileSexual OrientationNot on file Plan of Treatment Not on file
--- OUTSIDE RECORDS SUMMARY | 2025-07-17 10:07 | XMS_ITS | Patient Health Record ---
Author Organization [email or web address] Address [address], [place] [address] Care Team Providers Care Radio Tester Name Role Phone Leanne Stanford MD Primary Care Provider Unavailab Carrington Rubin Unavailable [phone] Allergies No Known Allergies Reason For Referral No Information Medications Medication SIG (Take, Route, Frequency, Duration) Notes Start Date End Date Status Gabapentin 100 MG Capsule Oral; Duration: 30 Day s ActiveDiclofenac Sodium 1 % GelExternal; Duration: 30 DaysActiveOmeprazole 40 MG Capsule Delayed ReleaseOral; Duration: 30 DaysActiveAlbuterol Sulfate HFA 108 (90 Base) MCG/ACT Aerosol SolutionInhalation; Duration: 17 DaysActiveTerconazole 0.4 % CreamINSERT 1 APPLICATORFUL INTO VAGINA AT BEDTIME FOR 7 DAYS Vaginal; Duration: 7 DaysActivePrempro 0.625-5 MG TabletOral; Duration: 84 DaysActive traMADol HCl 50 MG TabletOral; Duration: 30 DaysActiveALPRAZolam 1 MG Tablet Oral; Duration: 30 DaysActiveRestasis 0.05 % EmulsionOphthalmic; Duration: 90 DaysActiveProFe 391.3 (180 Fe) MG CapsuleTAKE 1 CAPSULE BY MOUTH DAILY Oral; Duration: 30 DaysActiveMeloxicam 15 MG Tablet1 tablet Orally Once a day; Duration: 30 days5ActiveVitamin B-6 25 MG TabletOral; Duration: 30 Days ActiveSpiriva Respimat 2.5 MCG/ACT Aerosol SolutionINHALE 2 PUFFS BY MOUTH DAILY Inhalation; Duration: 30 DaysActiveMedrol 4 MG Tablet Therapy Packas directed Orally daily; Duration: 6 days5Active Social History Section Notes: Patient states they are a current smoker. No alcohol use. Patient states they are a current smoker. No alcohol use. Problems Problem Type SNOMED Code ICD Code Onset Dates Problem Status W/U Status Risk Notes Problem Acquired hallux valgus (33644958 ) Hallux valgus (acquired), left foot (M20.12) Activeconfirmed Encounters Encounter Location Date Provider Diagnosis [facility] [address] [address], [place] [address] 03/19/2025 Carrington Highlander Capsulitis of toe of left foot M77.52 ; Corns and callosities L84 ; Hallux valgus (acquired), left foot M20.12 and Hammertoe of left foot M20.42 [facility] [place], [facility] [address] [address], [facility] [place] [address] 04/20/2025 Peter Highlander Metatarsalgia, left foot M77.42 ; Metatarsalgia, right foot M77.41 ; Hammertoe of left foot M20.42 and Chronic sciatica, unspecified laterality M54.30 Assessments Encounter Date Diagnosis (ICD Code) Assessment Notes Treatment Notes Treatment Clinical Notes Section Notes 03/19/2025 Capsulitis of toe of left foot ( ICD-10 - M77.52) Persistent toe pain and inflammation since December after injury. Symptoms have not improved over 2.5 months and are worse with certain footwear. Xrays ordered and reviewed today show no fracture of 5thtoe or metatarsals. There is a synostosis of 5th DIPJ and mild contracture of the toe in adductovarus. Patient has tried ibuprofen with marginal help. Patient has difficulty with rest, elevation, and icing due to time constraints. - Prescribed meloxicam 15 mg with refills. - Prescribed a steroid dose pack. - d/c ibuprofen if taking meloxicam. Can take tylenol with meloxicam for additional pain relief. - Recommended rest, ice, and elevation as tolerated. - Discussed low likelihood of needing surgery unless symptoms persist or worsen. 04/20/2025Metatarsalgia, right foot (ICD-10 - M77.41)04/20/2025Metatarsalgia, left foot (ICD-10 - M77.42) Katy presents for f/u and 5th toe is improved but having b/l forefoot and midfoot pain. Xrays were recently obtained of her right foot which were reviewed with her and demonstrates no acute bony abnormality. There is mild DJD of the navicular-cuneiform joint but no significant deformity. Joint spaces are otherwise preserved. Her b/l foot pain may be in part secondary to her back but strongly recommended shoe modification and we discussed selection as well as OTC orthotics. She may continue meloxicam prn. Physical therapy was ordered and recommended home stretching program. 03/19/2025orns and callosities (ICD-10 - L84)03/19/2025Hallux valgus (acquired), left foot (ICD-10 - M20.12)Patient has mild hallux valgus deformity but has a narrow foot and hallux rubs against the 2nd toe.I believe the painful callus is secondary to mechanical irritation therefore will likely be recurrent until mechanics can be restored.04/20/2025Hammertoe of left foot (ICD-10 - M20.42)04/20/2025hronic sciatica, unspecified laterality (ICD-10 - M54.30) 03/19/2025Hammertoe of left foot (ICD-10 - M20.42)Silicone toe sleeves recommended to 2nd and 5th toes which she can purchase at her pharmacy OTC 03/19/2025OtherI last evaluated the patient in 2019 for a right foot fracture which has healed uneventfully. Plan Of Treatment No Information Insurance Providers Payer Name Payer Address Payer Phone Subscriber Number Group Number Insured Name Patient Relationship to Insured Coverage Start Date Coverage End Date Medicaid [place] [employer] [address] [place] [phone] [id number] Sujata Flores - patient is the insured Medical (General) History Medical History History ICD Code Anemia ArthritisBleeding ProblemsCOPDTMJDry Eye DiseaseRaynaud's SyndromeSurgical History Surgery Date(Month/Year) Ablation 2019 Laparoscopy 2007 Tubal Ligation 2007
--- NOTE | 2025-07-17 10:08 | XR_ITS ---
The [address] [address] Patient Name: MARKO BANUELOS MRN: [id number] date: 1975 Sex: F Assigned Patient Location: [facility] Current Patient Location: [facility] Accession/Order Number: [id number] Exam Date: 07/17/2025 10:14 Report Date: 07/17/2025 11:15 At the request of: FERNANDA CONCEPCION MD Procedure: XR cervical spine 2-3V CLINICAL DATA: Chronic neck pain. Pain at the right knee for the past 6 weeks following injury. RIGHT KNEE - 4 views COMPARISON: None AP, lateral and both oblique views were obtained. There is no acute fracture or dislocation. There is a bone island at the lateral femoral condyle. There is no disproportionate joint space narrowing or prominent hypertrophy. There is a trace amount joint fluid. No soft tissue swelling is seen. XR/XR knee RT 4V IMPRESSION: NO ACUTE BONY INJURY. CERVICAL SPINE FLEXION AND EXTENSION VIEWS - 3 views COMPARISON: Medical Record Administrator view facial bones 12/20/2023 Lateral views in neutral, flexion and extension were obtained. There is slight reversal of the normal cervical lordosis. There is no significant displacement or instability. No acute compression fractures are identified. There is mild disc space narrowing from C3-4 through C6-7. There is endplate spurring and mild facet disease. No prevertebral soft tissue swelling is noted. IMPRESSION: LOSS OF NORMAL CERVICAL LORDOSIS. DEGENERATIVE CHANGES. Impression dictated by: Beatris Salazar M.D. 07/17/2025 11:15 AM Dictation Location: [place] [address] Electronically authenticated by: [id number] Y Date: 07/17/2025 11:15
--- NOTE | 2025-07-17 10:09 | XR_ITS ---
The [address] [address] Patient Name: MARKO BANUELOS MRN: [id number] date: 1975 Sex: F Assigned Patient Location: [facility] Current Patient Location: [facility] Accession/Order Number: [id number] Exam Date: 07/17/2025 10:14 Report Date: 07/17/2025 11:15 At the request of: FERNANDA CONCEPCION MD Procedure: XR cervical spine 2-3V CLINICAL DATA: Chronic neck pain. Pain at the right knee for the past 6 weeks following injury. RIGHT KNEE - 4 views COMPARISON: None AP, lateral and both oblique views were obtained. There is no acute fracture or dislocation. There is a bone island at the lateral femoral condyle. There is no disproportionate joint space narrowing or prominent hypertrophy. There is a trace amount joint fluid. No soft tissue swelling is seen. XR/XR cervical spine 2-3V IMPRESSION: NO ACUTE BONY INJURY. CERVICAL SPINE FLEXION AND EXTENSION VIEWS - 3 views COMPARISON: Biological Sciences Instructor view facial bones 12/20/2023 Lateral views in neutral, flexion and extension were obtained. There is slight reversal of the normal cervical lordosis. There is no significant displacement or instability. No acute compression fractures are identified. There is mild disc space narrowing from C3-4 through C6-7. There is endplate spurring and mild facet disease. No prevertebral soft tissue swelling is noted. IMPRESSION: LOSS OF NORMAL CERVICAL LORDOSIS. DEGENERATIVE CHANGES. Impression dictated by: Beatris Salazar M.D. 07/17/2025 11:15 AM Dictation Location: [place] [address] Electronically authenticated by: [id number] Y Date: 07/17/2025 11:15
--- OUTSIDE RECORDS SUMMARY | 2025-07-17 10:12 | XMS_ITS | CCD ---
Author Organization [facility] Care Team Providers Care Stem Shaper Name Role Phone NO FAMILY, PHYSICIAN Primary Care Provider Dianava DO Dio Randall Attending Provider FERNANDA CONCEPCION Primary Care Physician MD Kye Apodaca Attending Provider MD Stevan Alicia Referring Provider MD Fernanda Concepcion Primary Care Provider [phone] Un[address] DR VIKRAM OSUNA V [...] Unavailable JAMEY, DR FERNANDA Jimenez Admitting Unavailable CONCEPCION, DR [...] Unavailable MD Fernanda Concepcion Primary Care Provider RANDALL Palencia Attending Provider Charles Gilliam Unavailable MD Fernanda Concepcion Attending Provider Stefan Mcdonough Unavailable MD Fernanda Concepcion Primary Care Provider MD Fernanda Concepcion Attending Provider RHONDA Kaplan Attending Provider DO Marta Hernandez Attending Provider [phone] MD Fernanda Concepcion Primary Care Provider RHONDA Kaplan Attending Provider MD Fernanda Concepcion Attending Provider [phone] Prashant Mitchell Unavailable DO Prashant Mitchell Attending Provider [phone] MD Candelario Johansen Attending Provider DO Dio Lara Attending Provider Fernanda Concepcion MD Primary Care Provider [phone] MD Fernanda Concepcion Primary Care Provider DO Marta Hernandez Attending Provider MD Candelario Johansen Attending Provider DO Dio Lara Attending Provider MD Fernanda Concepcion Primary Care Provider MD Destiny Rodriguez Attending Provider [phone] MD Spencer Valadez Attending Provider MD Fernanda [...] Provider Ute Griffin APRN Attending Provider [phone] Stevan Alicia MD Referring Provider Ute Griffin APRN Attending Provider Stevan Alicia MD Referring Provider Fernanda Concepcion MD Primary Care Provider Ute Griffin APRN Attending Provider Stevan Alicia MD Referring Provider Fernanda Concepcion MD Attending Provider Fernanda Concepcion MD Primary Care Provider Ute Griffin APRN Attending Provider Stevan Alicia MD Referring Provider [phone] Fernanda Concepcion MD Attending Provider Fernanda Concepcion MD Primary Care Provider Fernanda Concepcion MD Primary Care Provider [phone] Fernanda Concepcion MD Primary Care Provider Marta Hernandez DO Attending Provider Ute Griffin APRN Attending Provider [phone] Stevan Alicia MD Referring Provider Fernanda Concepcion Primary Care Unavailable Ute Griffin Admitting Unavailable Ute Griffin Attending Unavailable Stevan Alicia Referring Unavailable Asaad, Imad Admitting Unavailable Asaad, Imad Attending Unavailable Jamey, Fernanda E Primary Care Unavailable Asaad, Imad [...] Provider Fernanda Concepcion MD Primary Care Provider Destiny Rodriguez MD Attending Provider Jalil DOMINGUEZ-C, Jeanette E Attending Provider Fernanda Concepcion MD Referring Provider Tad Zapata MD Attending Provider Cathryn Lambert DO Attending Provider [phone] Fernanda Concepcion MD Attending Provider [phone] Destiny Rodriguez MD Attending Provider Fernanda Concepcion MD Primary Care Provider [phone] Tad Zapata MD Attending Provider Elida Moreau CMA Attending Provider Unavaila ble Cathryn Lambert DO Attending Provider Destiny Rodriguez MD Attending Provider CANDICE PALENCIA Attending Unavailable STEVAN ALICIA Attending Unavailable MARKEL VICENTE Attending Unavailable MARKEL VICENTE Referring Unavailable MARTA HERNANDEZ Attending Unavailable STEVAN ALICIA Referring Unavailable MARTA HERNANDEZ Attending Unavailable STEVAN ALICIA Attending Unavailable Allergies Allergy ClassificationReported Allergen(s)Allergy TypeDate of OnsetReaction(s) FacilityAcetaminophen (1 source)AcetaminophenDrug Fyajywr11-40-0549Bssznaq ReactionHighland District HospitalCephalosporins (antibiotic) (1 source)cefdinirDrug Wccuzys73-10-7997Ynwqoft ReactionHighland District Hospitalcyclobenzaprine (1 source)cyclobenzaprineDrug Blsamvy59-45-0121Rtjbsno ReactionHighland District HospitalOpioid Agonists (1 source)oxyCODONEDrug Uvxvnfe45-69-4673Jfcmwol ReactionHighland District Hospital (17 sources)Acetaminophen / oxyCODONEDrug AllergyN[facility] Other (19 sources)cefdinirDrug Psoqgcg09-69-0024Sjvatqi, Unknown ReactionHighland District Hospital (17 sources)cyclobenzaprineDrug AllergyNevada Regional Medical Center [facility] Other (2 sources)Acetaminophen / oxyCODONEDrug AllergyThe [facility] (3 sources)Allergies ReconciledPropensity to adverse reactionsUnknownNorth [place] Other (3 sources)patient allergy list reviewed by nurse or physiciaPropensity to adverse kaicgrzoy46-10-3343Ujyiucp:[facility] Other (3 sources)Flexeril *MUSCULOSKELETAL THERAPY AGENTS*Propensity to adverse zpaegansg16-50-2813SutggdxTealt [place] Other (20 sources)GlycerinDrug Jcmybpm00-08-6591FngmnuzTWWO Healthcare (20 sources)House dust miteAllergy to budqappsh53-86-7112ZmtllluEVBL Healthcare (20 sources)Mold ExtractDrug Mhilshb43-13-4501RzrnvKXCR Healthcare (20 sources)Cat Hair ExtractAllergy to wopmnetpi86-09-3977CirlnerBKNS [facility] (2 sources)AcetaminophenDrug Vkdunfo73-09-4541UyednnoAdena [facility]ayette Medical Center (2 sources)cyclobenzaprineDrug Orymtuj70-97-6773Vhmrbkh [facility] (2 sources)oxyCODONEDrug Gnzlppi34-10-6259Zysvejv [facility] (1 source)No Known Medication Allergies; Translations: [No Known Medication Allergies]Propensity to adverse reactions (disorder)[facility] Rep[facility] Medications Current Medications MedicationDrug Class(es)DatesSig (Normalized)Sig (Original)[id number] 200 actuat albuterol 0.09 mg/actuat metered dose inhaler (14 sources)beta2-Adrenergic AgonistStart: 30-96-4324fhus 1 puff(s) by inhalation four times dailyAlbuterol Sulfate 90 mcg/actuation HFA aerosol inhaler Active 2 PUFF INHALATION Four times daily March 18, 2025 12:00am Complies with drug therapyStart: 02-10-2025 End: 97-88-9814kcls 2 puff(s) by inhalation every four hours for wheezing albuterol HFA (ProAir HFA) 90 mcg/act inhaler Indications: Chronic obstructive pulmonary disease, unspecified COPD type (HCC) Inhale 2 puffs every 4 (four) hours if needed for wheezing 18 g 11 02/10/2025 02/10/2026 Activebenzonatate 200 mg oral capsule (20 sources)Non-narcotic AntitussiveStart: 87-86-7338jgmh 1 capsule by mouth every eight hoursBenzonatate 200 MG 1 capsule Orally Three times a day for 10 day(s) Feb, ActiveStart: 07-18-2022 End: 61-43-8506hryb 1 capsule by mouth three times dailyBenzonatate 100 mg Capsule Discontinued 100 MG PO Three times daily July 18, 2022 12:00am December 10, 2023 10:38amcetirizine hydrochloride 10 mg oral capsule (20 sources)Histamine-1 Receptor AntagonistStart: 99-10-6912vwzv 1 capsule by mouth once daily as neededCetirizine (Zyrtec) 10 mg capsule Active 10 MG PO Daily as needed February 06, 2025 12:00am Complies with drug therapyStart: 04-04-2019 End: 67-45-2014xrer 1 tablet by mouth once dailyCetirizine 10 mg tablet Discontinued 10 MG PO Daily April 04, 2019 12:00am December 10, 2023 10:27am cholecalciferol 0.025 mg oral capsule (20 sources)Vitamin DStart: 74-46-6436bpze 1 capsule by mouth once daily Cholecalciferol (Vitamin D3) (Vitamin D3) 25 mcg (1,000 unit) Capsule Active 25 MCG PO Daily July 18, 2022 12:00am Complies with drug therapyciclopirox 10 mg/ml medicated shampoo (14 sources)Start: 63-47-0493Cizbjltrbu 1 % shampoo 11/17/2024 Active Cyclosporine (20 sources)Calcineurin Inhibitor ImmunosuppressantStart: 04-38-3665urrb 1 drop(s) into the eye(s) every twelve hoursStart: 45-81-6797vjrv 1 drop(s) into the eye(s) every twelve hoursCyclosporine (Restasis) 0.05 % dropperette Active 1 DROPS EYE-BOTH Every 12 hours March 18, 2025 12:00am Complies with drug therapy Start: 15-98-9096azef 1 drop(s) into the eye(s) in the morningRestasis 0.05 % ophthalmic emulsion Administer 1 drop into both eyes in the morning and 1 drop before bedtime. 12/11/2023 Orlswt66 actuat fluticasone furoate 0.1 mg/actuat / umeclidinium 0.0625 mg/actuat / vilanterol 0.025 mg/actuat dry powder inhaler (5 sources)Anticholinergic, Corticosteroid, beta2-Adrenergic AgonistStart: 02-10-2025 End: 48-26-2849nkpk 1 puff(s) by inhalation once daily Qxtigumnwnt-Vzhcxymhd-Gxiczn (Trelegy Ellipta) 100-62.5-25 MCG/ACT aerosol powder Indications: Chronic obstructive pulmonary disease, unspecified COPD type (HCC) Inhale 1 puff Daily 1 each 5 02/10/2025 05/19/2025 Discontinuedfolic acid 1 mg oral tablet (20 sources)Start: 70-26-9142ozks 1 tablet by mouth once dailyFolic Acid 1 mg Tablet Active 1 MG PO Daily July 14, 2022 12:00am Complies with drug therapy End: 55-61-4365nhbtn acid (Folvite) 400 MCG tablet 1 (one) time each day at the same time. 07/01/2024 Discontinued(Med list cleanup)folic acid 1 mg / vitamin b12 0.5 mg oral tablet (20 sources)Vitamin G33Apxzw: 62-63-1304amdu 1 tablet by mouth once dailyVitamin L98-Cffjj Acid 0.5-1 mg Tablet Active 1 TAB PO Daily July 18, 2022 12:00am Complies with drug therapyhydrocortisone 25 mg/ml topical cream (17 sources)CorticosteroidStart: 46-23-8661Qzlikysnucowed (Perianal) 2.5 % 1 application Externally Twice a day for 30 days Dec, ActiveStart: 30-80-1659Yzndclcegzkqvm (Perianal) 2.5 % 1 application Externally Twice a day for 30 days Dec, Activeibuprofen 800 mg oral tablet (20 sources)Nonsteroidal Anti-inflammatory DrugStart: 08-22-2024 End: 98-61-8433voyl 1 tablet by mouth every eight hours as needed for pain Ibuprofen 800 mg tablet Active 0 .ROUTE .COMPLEX 90 2 May 25, 2025 12:51pm Radial styloid tenosynovitis of right hand Right wrist pain Arthritis of carpometacarpal (CMC) joint of right thumb Arthritis of right hand Radial styloid tenosynovitis [de Quervain] Pain in right wrist Unilateral primary osteoarthritis of first carpometacarpal joint, right hand Primary osteoarthritis, right hand TAKE 1 TABLET BY MOUTH EVERY 8 HOURS NEEDED FOR PAIN Complies with drug therapyStart: 08-16-2023 End: 16-83-8528rtmb 1 tablet by mouth every eight hours as needed for pain Ibuprofen 800 mg tablet Discontinued 800 MG PO Every 8 hours as needed for pain 90 June 25, 2024 12:00am August 22, 2024 9:10am Radial styloid tenosynovitis of right hand Right wrist pain Arthritis of carpometacarpal (CMC) joint of right thumb Arthritis of right hand Radial styloid tenosynovitis [de Quervain] Pain in right wrist Unilateral primary osteoarthritis of first carpometacarpal joint, right hand Primary osteoarthritis, right handStart: 08-16-2023 End: 88-81-9427sugx 1 tablet by mouth once daily as needed for painIbuprofen 800 mg tablet Discontinued 800 MG PO Daily as needed for pain 30 December 10, 2023 1:00pm April 01, 2024 8:45amStart: 69-98-6284jfev 1 tablet by mouth four times daily as neededibuprofen 800 MG tablet TAKE 1 TABLET BY MOUTH FOUR TIMES A DAY NEEDED 08/16/2023 ActiveStart: 54-39-0331bkzj 1 tablet by mouth every three hours at mealtimeibuprofen 800 mg Tab 800 mg = 1 tab(s), Oral, q3hr, with food or milk, # 30 tab(s), Refills(s) 3, Pharmacy: [facility]/pharmacy #[id number], 168, cm, 05/16/23 9:58:00 EDT, Height/Length Dosing, 52, kg, 05/16/23 9:58:00 EDT, Weight Dosing Start Date: 05/16/23 Status: OrderedStart: 04-04-2019 End: 31-24-2377uorm 1 tablet by mouth every six hours as needed for pain Ibuprofen 800 mg tablet Discontinued 800 MG PO Q6H as needed for pain 30 April 04, 2019 12:00am December 10, 2023 1:03pm24 hr mirabegron 25 mg extended release oral tablet (1 source)beta3-Adrenergic Agonisttake 1 tablet by mouth every twenty-four hours Myrbetriq 25 MG 1 tablet Orally Once a day Activenaloxone hydrochloride 40 mg/ml nasal spray (3 sources)Opioid AntagonistStart: 90-31-2714Etxlnwgq (Narcan) 4 mg/actuation spray,non-aerosol Active 4 MG INTRANASAL every 2 to 3 minutes as needed for opioid overdose 2 June 26, 2025 12:00am spray 1 dose into ONE nostril; alternate nostrils w each dose until help arrives Complies with drug therapy omeprazole 40 mg delayed release oral capsule (20 sources)Proton Pump InhibitorStart: 03-07-2024 End: 49-76-1453ibrl 1 capsule by mouth once dailyOmeprazole 40 mg capsule,delayed release(DR/EC) Active 40 MG PO Daily 90 90 3 April 02, 2025 8:59am Complies with drug therapyStart: 04-04-2019 End: 88-60-3949sedj 1 capsule by mouth once dailyOmeprazole 20 mg capsule,delayed release(DR/EC) Discontinued 20 MG PO Daily April 04, 2019 12:00amJune 2023 8:18amOXcarbazepine 300 mg oral tablet (3 sources)Anti-epileptic AgentStart: 96-30-4120Dcqkckwrtvlcj (Trileptal) 300 mg tablet Active 0 PO Twice daily 60 2 July 06, 2025 12:00am 1/2po bid x 2 weeks then 1 po bid. orally twice daily; Complies with drug therapy polysaccharide iron complex 391 mg oral capsule (20 sources)Start: 77-58-3225ncnu 1 capsule by mouth once dailyiron polysaccharides (ProFe) 391.3 (180 Fe) MG capsule Indications: Iron deficiency Take 1 capsule (391.3 mg) by mouth Daily 90 capsule 3 06/08/2025 ActiveStart: 06-06-2024 End: 47-16-0809skzo 1 capsule by mouth once dailyiron polysaccharides (ProFe) 391.3 (180 Fe) MG capsule Indications: Iron deficiency Take 1 capsule (391.3 mg) by mouth Daily 90 capsule 3 06/06/2024 06/08/2025 Discontinued (Reorder)Start: 20-87-0419scjf 1 capsule by mouth twice dailyiron polysaccharides (ProFe) 391.3 (180 Fe) MG capsule Indications: Iron deficiency TAKE 1 CAPSULE BY MOUTH TWICE A DAY FOR 30 DAYS 60 capsule 0 08/15/2023 ActiveStart: 07-14-2022 End: 18-35-2484nwsx 1 capsule by mouth once dailyPolysaccharide Iron Complex (Pro Fe) 180 mg iron Capsule Active 180 MG PO Daily 90 90 September 20, 2022 1:00am Iron deficiency Iron deficiency Complies with drug therapyProFe 180 mg oral capsule (10 sources)Start: 80-74-7254YonPv 180 mg oral capsule Refills(s) 0 Start Date: 12/12/22 Status: Orderedpyridoxine hydrochloride 25 mg oral tablet (20 sources)Start: 85-71-4906xgdu 1 tablet by mouth every eight hourspyridoxine (Vitamin B-6) 25 MG tablet Indications: Mood swings TAKE 1 TABLET (25 MG) BY MOUTH EVERY8 (EIGHT) HOURS 90 tablet 1 05/19/2025 ActiveStart: 93-87-0468zrhb 1 tablet by mouth three times dailyPyridoxine (Vitamin B6) 25 mg tablet Active 25 MG PO Three times daily August 20, 2024 1:00am Complies with drug therapy Start: 08-04-2024 End: 75-15-9546anwn 1 tablet by mouth once dailyPyridoxine (Vitamin B6) 10 mg tablet Discontinued 10 MG PO Daily August 04, 2024 12:00am August 20, 2024 10:15amStart: 21-19-6472xxzj 1 tablet by mouth once dailyPyridoxine (Vitamin B6) 10 mg tablet Active 10 MG PO Daily August 04, 2024 12:00am Start: 07-17-2024 End: 95-89-0162nvnn 1 tablet by mouth every eight hourspyridoxine (Vitamin B-6) 25 MG tablet Indications: Mood swings TAKE 1 TABLET (25 MG) BY MOUTH EVERY8 (EIGHT) HOURS 90 tablet 2 10/07/2024 Activesertraline 50 mg oral tablet (20 sources)Serotonin Reuptake InhibitorStart: 52-19-4610xozj 1 tablet by mouth once dailySertraline 50 mg tablet Active 50 MG PO Daily March 18, 2025 12:00am Complies with drug therapyStart: 07-17-2024 End: 18-64-4060caos 1 tablet by mouth once dailySertraline (Zoloft) 25 mg tablet Discontinued 25 MG PO Daily August 20, 2024 1:00am December 11, 2024 10:08am Spiriva Respimat (5 sources)Spiriva Respimat Activetiotropium 0.018 mg inhalation powder (20 sources)AnticholinergicStart: 96-32-7886bgwz 1 capsule by inhalation once dailyTiotropium [place] (Spiriva With Handihaler) 18 mcg capsule, w/inhalation device Active 1 CAP INHALATION Daily February 06, 2025 12:00am puncture 1 cap using device; one dose = 2 inhalations Complies with drug therapyStart: 01-10-2024 End: 76-90-3820qgjv 1 puff(s) by inhalation once dailyTiotropium [place] (Spiriva Respimat) 2.5 mcg/actuation mist Discontinued 2 PUFF INHALATION Daily January 10, 2024 12:00am July 14, 2024 9:03amStart: 01-01-2024 End: 09-09-9606lvny 2 puff(s) by inhalation once dailytiotropium (Spiriva Respimat) 2.5 MCG/ACT inhaler Indications: Chronic obstructive pulmonary disease , unspecified COPD type (HCC) Inhale 2 puffs Daily 1 each 5 02/02/2025 02/02/2026 ActiveStart: 12-25-2023 End: 76-34-2695vqjupqqdxe bromide Discontinued INHALATION Daily December 24, 2023 11:00pm January 10, 2024 1:21pmStart: 12-25-2023 End: 63-91-2524mgxtvznrwz bromide Discontinued INHALATION Daily December 25, 2023 12:00am January 10, 2024 2:21pmStart: 62-49-3250eobkcnrwab bromide (Spiriva Respimat) Active INHALATION December 25, 2023 12:00amStart: 10-10-2023 End: 50-82-0173vaiy 2 puff(s) by inhalation in the morningtiotropium (Spiriva Respimat) 2.5 MCG/ACT inhaler Indications: Chronic obstructive pulmonary disease , unspecified COPD type (CMS/HCC) Inhale 2 puffs in the morning. 1 each 5 10/10/2023 10/09/2024 ActiveTiotropium [place] (Spiriva With Handihaler) 18 mcg capsule, w/inhalation device (2 sources)Start: 12-78-7167xktm 1 capsule by inhalation once dailyTiotropium [place] (Spiriva With Handihaler) 18 mcg capsule, w/inhalation device Active 1 CAP INHALATION Daily February 06, 2025 12:00am puncture 1 cap using device; one dose = 2 hikikryyrjc39 hr tolterodine tartrate 2 mg extended release oral capsule (5 sources)Cholinergic Muscarinic AntagonistStart: 63-81-5553utpn 1 capsule by mouth once dailyDetrol LA 2 mg Cap-ER 2 mg = 1 cap(s), Oral, Daily, # 30 cap(s), Refills(s) 11, Pharmacy: [facility]/pharmacy #[id number], 168, cm, 12/12/22 8:36:00 EDT, Height/Length Dosing, 52.6, kg, 12/12/22 8:36:00 EDT, Weight Dosing Start Date: 12/12/22 Status: OrderedvalACYclovir 500 mg oral tablet (20 sources)Herpesvirus Nucleoside Analog DNA Polymerase Inhibitor, Herpes Simplex Virus Nucleoside Analog DNA Polymerase Inhibitor, Herpes Zoster Virus Nucleoside Analog DNA Polymerase InhibitorStart: 01-12-2025 End: 01-66-8911lrhy 1 tablet by mouth once dailyValacyclovir 500 mg tablet Active 500 MG PO Daily March 18, 2025 12:00am Complies with drug therapyStart: 07-10-2024 End: 67-24-0437qvwIPCkfcars (Valtrex) 500 MG tablet Indications: Chronic vulvitis Take 1 tablet (500 mg) by mouth twice daily for 3 days. Then daily 30 tablet 5 07/10/2024 07/10/2025 Activevarenicline 0.5 mg oral tablet (2 sources)Partial Cholinergic Nicotinic AgonistStart: 43-80-5931aife 1 tablet by mouth once dailyAPO-Varenicline 0.5 MG 1 tablet after eating with a full glass of water Orally Once a day for 30 days Dec, Active Completed/Discontinued Medications MedicationDrug Class(es)DatesSig (Normalized)Sig (Original)acetaminophen 325 mg / diphenhydrAMINE hydrochloride 50 mg oral tablet (11 sources)Histamine-1 Receptor AntagonistStart: 07-17-2024 End: 00-08-5293jeprezgswaVNUCR-acetaminophen (Unisom PM Pain) 50-325 MG tablet Indications: Insomnia, unspecified type Take 1 tablet by mouth as needed at bedtime for sleep 14 tablet 3 07/17/2024 02/10/2025 Discontinuedacetaminophen 325 mg / oxyCODONE hydrochloride 5 mg oral tablet (20 sources)Opioid AgonistStart: 04-04-2019 End: 58-21-7435bjzk 1 tablet by mouth every four to six hours as needed for pain Oxycodone-Acetaminophen (Percocet) 5-325 mg tablet Discontinued 1 TAB PO EVERY 4-6 HOURS as needed for pain 12 3 0 April 04, 2019 July 18, 2022 10:48am Other acute postprocedural painacyclovir 400 mg oral tablet (20 sources)Herpesvirus Nucleoside Analog DNA Polymerase Inhibitor, Herpes Simplex Virus Nucleoside Analog DNA Polymerase Inhibitor, Herpes Zoster Virus Nucleoside Analog DNA Polymerase InhibitorStart: 02-04-2024 End: 59-72-6304Kdonxoykp 400 mg tablet Discontinued 400 MG PO March 18, 2024 12:00am March 18, 2025 9:45amStart: 04-04-2019 End: 58-06-0271ysvf 1 capsule by mouth once dailyAcyclovir 200 mg capsule Discontinued 200 MG PO Daily April 04, 2019 12:00am January 10, 2024 2:12pmtake 1 tablet by mouth once dailyacyclovir (Zovirax) 400 MG tablet TAKE 1 TABLET BY MOUTH EVERY DAY FOR 30 DAYS 0 ActiveALPRAZolam 1 mg oral tablet (20 sources)BenzodiazepineStart: 04-01-2024 End: 92-51-9414xyzp 1 tablet by mouth twice daily as needed for anxiety Alprazolam 1 mg tablet Discontinued 1 MG PO Twice daily as needed for anxiety 40 30 0 December 11, 2024 11:04am January 20, 2025 2:25pm Persistent insomnia Anxiety Insomnia, unspecified Anxiety disorder,unspecifiedStart: 04-04-2019 End: 90-98-9376wxht 1 tablet by mouth at bedtimeAlprazolam 1 mg tablet Discontinued 1 MG PO Bedtime 30 30 December 10, 2023 1:01pm January 07, 2024 4:37pm Persistent insomnia Insomnia, unspecifiedStart: 04-04-2019 End: 30-20-0941fqtr 1 tablet by mouth once daily at bedtime as needed for sleep Alprazolam 1 mg tablet Discontinued 1 MG PO Daily at bedtime as needed for sleep 30 30 0 March 19, 2024 12:19pm April 01, 2024 9:16am Persistent insomnia Insomnia, unspecifiedStart: 04-04-2019 End: 15-30-8747tlyb 1 mg by mouth at bedtimeAlprazolam Active 1 MG PO Bedtime December 10, 2023 1:01pmamLODIPine 2.5 mg oral tablet (5 sources)Dihydropyridine Calcium Channel BlockerStart: 03-28-2024 End: 08-58-5179mofx 1 tablet by mouth once dailyamLODIPine (Norvasc) 2.5 MG tablet Take 2.5 mg by mouth Daily 03/28/2024 07/01/2024 Discontinued (Med list cleanup)Start: 16-58-9790hbaj 1 tablet by mouth once dailyamLODIPine 5 mg Tab 5 mg = 1 tab(s), Oral, Daily, # 30 tab(s), Refills(s) 2, Pharmacy: [facility]/pharmacy #[id number], 168, cm, 03/14/24 13:40:00 EDT, Height/Length Dosing, 52.2, kg, 03/14/24 13:46:00 EDT, Weight Dosing Start Date: 03/26/24 Status: Orderedamoxicillin 500 mg oral capsule (3 sources)Penicillin-class AntibacterialStart: 12-18-2023 End: 83-75-4568fuuxztebndq (Amoxil) 500 MG capsule 12/18/2023 07/01/2024 Discontinued (Med list cleanup)amoxicillin 875 mg / clavulanate 125 mg oral tablet (19 sources)Penicillin-class AntibacterialStart: 07-14-2024 End: 26-89-9717qsph 1 tablet by mouth twice dailyAmoxicillin-Pot Clavulanate 875-125 mg tablet Discontinued 1 TAB PO Twice daily 14 0 July 14, 2024 12:00am August 04, 2024 11:32amazithromycin 250 mg oral tablet (20 sources)Macrolide AntimicrobialStart: 08-20-2024 End: 02-15-3649Fvgyuwtqmuzk 250 mg tablet Discontinued 0 PO .COMPLEX 6 0 August 20, 2024 1:00am December 11, 2024 10:06am For 250 mg dose pack: take 500 mg today (day 1), then 250 mg for 4 days (days 2-5) POStart: 05-22-2023 Azithromycin 250 MG as directed Orally 2 tabs po today, then 1 tab daily x 4 more days for 5 May, Activecephalexin 500 mg oral capsule (20 sources)Cephalosporin AntibacterialStart: 04-04-2019 End: 43-91-7532pbov 1 capsule by mouth every eight hoursCephalexin 500 mg capsule Discontinued 500 MG PO Q8H 21 7 0 April 04, 2019 12:00am July 14, 2022 2:49pmciprofloxacin 500 mg oral tablet (7 sources)Quinolone AntimicrobialStart: 20-85-2092Kzeok 500 mg Tab 500 mg = 1 tab(s), Oral, As Directed, Pt to take 1 tab the day before procedure and the 2nd tab the day of procedure once completed., # 2 tab(s), Refills(s) 0, Pharmacy: [facility]/pharmacy#[id number], 168, cm, 08/09/22 9:45:00 EST, Height/Length Dosing, 52.6, kg... Start Date: 08/15/22 Status: Orderedtake 1 tablet by mouth every twelve hoursCiprofloxacin HCl 500 MG 1 tablet Orally every 12 hrs for 7 days Active diclofenac sodium 0.01 mg/mg topical gel (20 sources)Nonsteroidal Anti-inflammatory DrugStart: 12-04-2023 End: 12-21-0120Ohvidacifa Sodium (Voltaren Arthritis Pain) 1 % gel Discontinued 0 TOPICAL Twice daily 100 30 2 December 04, 2023 12:00am March 18, 2025 9:46am 1- 2 grams topically twice dailyStart: 41-73-4639Gpvasmnblk Sodium (Voltaren Arthritis Pain) 1 % gel Active 0 TOPICAL Twice daily 100 30 November 11:00pm 1-2 grams topically twice dailyStart: 10-73-0045Gdexgmuiny Sodium (Voltaren Arthritis Pain) 1 % gel Active 0 TOPICAL Twice daily 100 November 12:00am 1-2 grams topically twice dailydoxepin 3 mg oral tablet (20 sources)Tricyclic AntidepressantStart: 07-22-2024 End: 97-00-6564aewf 1 tablet by mouth once daily at bedtime as needed for sleep Doxepin 3 mg tablet Discontinued 3 MG PO Daily at bedtime as needed for sleep 30 0 July 22, 2024 1:00am August 04, 2024 11:33amStart: 12-12-2023 End: 03-09-6543czpc 1 capsule by mouth once daily in the evening as needed doxepin (SINEquan) 10 MG capsule TAKE 1 CAPSULE BY MOUTH EVERY EVENING NEEDED FOR ITCH 12/12/2023 07/01/2024 Discontinued (Med list cleanup)doxycycline hyclate 100 mg oral tablet (20 sources)Tetracycline-class DrugStart: 02-08-2024 End: 54-27-9774nrxo 1 tablet by mouth twice dailyDoxycycline Hyclate 100 mg tablet Discontinued 100 MG PO Twice daily 14 0 February 08, 2024 12:00am February 19, 2024 10:15amestradiol 0.1 mg/ml vaginal cream (4 sources)EstrogenStart: 09-14-2023 End: 73-14-2234efqqelliu (Estrace) 0.1 MG/GM vaginal cream Indications: Vaginal atrophy 1 gm application daily at bedtime for 2 weeks, then 1 gm application 2 times/week. 34 g 1 09/14/2023 07/01/2024 Discontinued (Med list cleanup) estrogens, conjugated (shelter) 0.625 mg / medroxyPROGESTERone acetate 5 mg oral tablet (10 sources)Progestin, EstrogenStart: 11-10-2024 End: 94-65-0414pvxf 0.625-5 mg by mouth once dailyestrogen, conjugated,- medroxyPROGESTERone (Prempro) 0.625-5 MG tablet Indications: Mood swings , Other fatigue , Vaginal atrophy Take 1 tablet by mouth Daily 90 tablet 3 11/10/2024 02/10/2025 DiscontinuedNorgestimate-Ethinyl Estradiol (20 sources)Progestin, EstrogenStart: 04-04-2019 End: 61-38-5777Vuwhfnrihpel-Ethinyl Estradiol (Sprintec (28)) 0.25-35 mg-mcg tablet Discontinued 1 TAB PO As Directed April 03, 2019 11:00pm July 18, 2022 9:48amStart: 04-04-2019 End: 40-49-4203Kttgpvqlejrr-Ethinyl Estradiol (Sprintec (28)) 0.25-35 mg-mcg tablet Discontinued 1 TAB PO As Directed April 04, 2019 12:00am July 18, 2022 10:48amStart: 72-42-9117Rbmwpdcoxxok-Ethinyl Estradiol (Sprintec (28)) 0.25-35 mg-mcg tablet Active 1 TAB PO As Directed April 04, 2019 12:00am fluconazole 150 mg oral tablet (20 sources)Azole AntifungalStart: 07-14-2024 End: 43-80-0320Nexumhqilrq 150 mg tablet Discontinued 150 MG PO Q3D 2 0 July 14, 2024 12:00am August 04, 2024 11:33amStart: 10-06-2023 End: 50-42-7658hdvi 1 tablet by mouth in the morningfluconazole (Diflucan) 150 MG tablet Indications: Chronic obstructive pulmonary disease, unspecified COPD type (CMS/HCC) Take 1 tablet (150 mg) by mouth in the morning. 1 tablet 1 10/06/2023 07/01/2024 Discontinued (Med list cleanup)Start: 43-43-7816ovnh 1 tablet by mouth onceFluconazole 150 MG 1 tablet Orally once for 1 days Jun, ActiveStart: 04-04-2019 End: 92-63-3894ktgx 1 tablet by mouth once dailyFluconazole (Diflucan) 150 mg tablet Discontinued 150 MG PO Daily 1 1 0 April 04, 2019 3:15pm July 18, 2022 10:48am administer on day 1 of therapyfluorouracil 50 mg/ml topical cream (3 sources)Nucleoside Metabolic InhibitorStart: 05-02-2024 End: 40-71-1528ytmduvnejehk (Efudex) 5 % cream APPLY TO FACE EVERY NIGHT L5AKFYU.TAKE A WEEK OFF & REPEAT DAILY X2 MORE WEEKS.*START IN JUNE* 05/02/2024 07/01/2024 Discontinued (Med list cleanup)gabapentin 100 mg oral capsule (20 sources)Anti-epileptic AgentStart: 04-06-2025 End: 13-69-2722cdge 2 capsules by mouth three times dailyGabapentin 100 mg capsule Discontinued 200 MG PO Three times daily 180 30 0 April 06, 2025 4:43pm July 06, 2025 10:52amStart: 02-25-2025 End: 05-00-2661orjn 1 capsule by mouth three times dailyGabapentin 100 mg capsule Discontinued 100 MG PO Three times daily March 18, 2025 9:47am March 4:44pmStart: 76-42-0861dcopuevqnh (Neurontin) 100 MG capsule Indications: Paresthesias Take one cap every 8 hours or all at bedtime 90 capsule 2 01/06/2025 Activeketoconazole 20 mg/ml medicated shampoo (3 sources)Azole AntifungalStart: 04-21-2024 End: 31-88-1382bsjyrqrgixhf (NIZOral) 2 % shampoo WASH THE SCALP ONCE DAILY LEAVE ON FOR 5 MINUTES THEN RINSE OFF THEN WASH NORMAL 04/21/2024 07/01/2024 Discontinued (Med list cleanup)meloxicam 15 mg oral tablet (20 sources)Nonsteroidal Anti-inflammatory DrugStart: 05-13-2024 End: 34-76-7907jucj 1 tablet by mouth once dailyMeloxicam 15 mg tablet Discontinued 15 MG PO Daily 30 2 May 13, 2024 12:00am May 13, 2024 8:36am painStart: 36-27-7341fdpe 1 tablet by mouth every twenty-four hours Meloxicam 15 MG 1 tablet Orally Once a day for 30 days Aug, Active methylPREDNISolone 4 mg oral tablet (15 sources)CorticosteroidStart: 03-23-2025 End: 91-12-4810Zbnysdbkdofynivqyt 4 mg tablets,dose pack Discontinued MG PO March 23, 2025 12:00am July 07, 2025 10:19amStart: 01-16-2025 End: 67-36-4423xnhmxzDCLANPRdpxvt (Medrol Dospak) 4 MG tablets Indications: Muscle strain of left foot, initial encounter Follow schedule on package instructions 21 tablet 01/16/2025 05/19/2025 DiscontinuedStart: 01-16-2025 methylPREDNISolone (Medrol Dospak) 4 MG tablets Indications: Muscle strain of left foot, initial encounter Follow schedule on package instructions 21 tablet 01/16/2025 Uxleiy96 hr metoprolol succinate 25 mg extended release oral tablet (20 sources)beta-Adrenergic BlockerStart: 01-10-2024 End: 46-34-3532ykmm 1 tablet by mouth every twenty-four hoursMetoprolol Succinate 25 mg tablet extended release 24 hr Discontinued MG PO January 10, 2024 12:00am February 19, 2024 10:15amStart: 01-10-2024 End: 48-49-9858Zbhljshnvh Succinate Discontinued MG PO January 09, 2024 11:00pm February 19, 2024 9:15amMultivitamin (Multiple Vitamin) Tablet (20 sources)Start: 07-14-2022 End: 76-15-3009kcth 1 tablet by mouth once dailyMultivitamin (Multiple Vitamin) Tablet Discontinued 1 TAB PO Daily July 13, 2022 11:00pm 2023 9:28amStart: 07-14-2022 End: 97-84-0408xjrq 1 tablet by mouth once dailyMultivitamin (Multiple Vitamin) Tablet Discontinued 1 TAB PO Daily July 14, 2022 12:00am 2023 10:28amStart: 45-72-7807ipip 1 tablet by mouth once dailyMultivitamin (Multiple Vitamin) Tablet Active 1 TAB PO Daily July 13, 2022 11:00pmStart: 89-53-2051jzuv 1 tablet by mouth once dailyMultivitamin (Multiple Vitamin) Tablet Active 1 TAB PO Daily July 14, 2022 12:00amprazosin 5 mg oral capsule (20 sources)alpha-Adrenergic BlockerStart: 11-03-2024 End: 56-48-4476yncmeceo (Minipress) 5 MG capsule 11/03/2024 05/19/2025 DiscontinuedStart: 09-23-2024 End: 41-81-7968xhhv 1 capsule by mouth in the evening as neededPrazosin 5 mg capsule Discontinued 0 .ROUTE .COMPLEX as needed December 11, 2024 10:07am March 18, 2025 9:43am TAKE 1 CAPSULE BY MOUTH IN THE EVENING PRN;Start: 08-20-2024 End: 31-66-1525csmv 1 capsule by mouth once daily in the eveningPrazosin 5 mg capsule Discontinued 5 MG PO Every evening 30 0 August 20, 2024 11:19am September 23, 2024 1:12pmStart: 07-19-2024 End: 06-65-1784nmlp 1 capsule by mouth once daily in the eveningPrazosin 5 mg capsule Discontinued 5 MG PO Every evening 30 0 July 19, 2024 12:00am July 22, 2024 9:35ampredniSONE 5 mg oral tablet (20 sources)Start: 12-04-2023 End: 74-21-1611Izfpmjvdls 5 mg tablet Discontinued 5 MG PO As Directed 19 7 0 December 04, 2023 12:00am November 10:28am Take 4 pills by mouth x2 days, take 3 pills by mouth x2 days, take 2 pills by mouth x2days, take 1 pill by mouth x1 day.propylene glycol liquid external solution (3 sources)Start: 05-20-2024 End: 97-52-8983bogsmgntm glycol liquid external solution 05/20/2024 07/01/2024 Discontinued (Med list cleanup)Start: 31-25-1143ayogybutg glycol liquid external solution 05/20/2024 Activeteepee splint right thumb (20 sources)Start: 01-08-2024 End: 97-84-2208wchgnu splint right thumb Discontinued 0 .Route .MEDSUPPLY 1 0 January 08, 2024 4:12pm January 10, 2024 2:21pm As directedStart: 01-08-2024 End: 75-03-5820homhun splint right thumb Discontinued 0 .Route .MEDSUPPLY 1 January 08, 2024 3:12pm January 10, 2024 1:21pm As directedStart: 01-08-2024 End: 90-56-7604znavzr splint right thumb Discontinued 0 .Route .MEDSUPPLY 1 January 08, 2024 4:12pm January 10, 2024 2:21pm As directedStart: 01-08-2024 End: 67-26-7742uwbgjk splint right thumb Discontinued 0 .Route .MEDSUPPLY 1 0 January 08, 2024 12:00am December 4:12pm As directedStart: 01-08-2024 End: 34-88-0128hghmit splint right thumb Discontinued 0 .Route .MEDSUPPLY 1 January 07, 2024 11:00pm January 08, 2024 3:12pm As directedStart: 01-08-2024 End: 57-09-6877fitwoa splint right thumb Discontinued 0 .Route .MEDSUPPLY 1 January 08, 2024 12:00am January 08, 2024 4:12pm As directedStart: 01-08-2024 [place]pee splint right thumb Active 0 .Route .MEDSUPPLY 1 January 08, 2024 12:00am As directedteepee splint- right thumb (20 sources)Start: 03-18-2024 End: 30-71-6047umzqkn splint- right thumb Discontinued 0 .Route .MEDSUPPLY 1 0 March 18, 2024 8:41am August 11:16am Arthritis of carpometacarpal (CMC) joint of right thumb Arthritis of right hand Unilateral primary osteoarthritis of first carpometacarpal joint, right hand Primary osteoarthritis, righthand pain As directed. Please specialty order.Start: 03-18-2024 End: 65-88-1643yoeimo splint- right thumb Discontinued 0 .Route .MEDSUPPLY 1 March 18, 2024 8:41am August 20, 2024 11:16am As directed. Please specialty order.Start: 03-18-2024 End: 08-36-3146kpbiwz splint- right thumb Discontinued 0 .Route .MEDSUPPLY 1 March 18, 2024 7:41am August 20, 2024 10:16am As directed. Please specialty order.Start: 89-77-8553pypcdp splint- right thumb Active 0 .Route .MEDSUPPLY 1 March 18, 2024 7:41am As directed. Please specialty order.Start: 03-18-2024 [place] splint- right thumb Active 0 .Route .MEDSUPPLY 1 March 18, 2024 8:41am As directed. Please specialty order.Start: 02-12-2024 End: 57-74-9561jetsww splint- right thumb Discontinued 0 .Route .MEDSUPPLY 1 0 February 12, 2024 12:00am March 18, 2024 8:41am Arthritis of carpometacarpal (CMC) joint of right thumb Arthritis of right hand Unilateralprimary osteoarthritis of first carpometacarpal joint, right hand Primary osteoarthritis, right hand pain As directed. Please specialty order.Start: 02-12-2024 End: 16-45-0311ibpiqo splint- right thumb Discontinued 0 .Route .MEDSUPPLY February 11, 2024 11:00pm March 1847:41am As directed. Please specialty order. Start: 02-12-2024 End: 65-26-3650gftkyw splint- right thumb Discontinued 0 .Route .MEDSUPPLY February 12, 2024 12:00am March 1848:41am As directed. Please specialty order. Start: 13-82-2327ltojxw splint- right thumb Active 0 .Route .MEDSUPPLY February 12, 2024 12:00am As directed. Please specialty order.traMADol hydrochloride 50 mg oral tablet (20 sources)Opioid AgonistStart: 11-16-2023 End: 26-34-7374qjie 1 tablet by mouth twice daily as needed for painTramadol 50 mg tablet Discontinued 50 MG PO Twice daily as needed for pain 50 30 0 December 111:03am January 20, 2025 2:25pm Dislocation of temporomandibular joint Dislocation of jaw, unspecifiedside, sequelaStart: 11-16-2023 End: 07-05-7365nxun 1 tablet by mouth three times daily as neededTramadol 50 mg tablet Discontinued 50 MG PO Three times daily as needed March 21, 2024 12:00am 2023 3:51pmStart: 17-89-0413pgpSKCra HCl 50 MG TAKE 1 TABLET BY MOUTH THREE TIMES A DAY NEEDED FOR 30 DAYS for 30 Aug, ActiveStart: 49-64-7991hgbWMPtb HCl 50 MG TAKE 1 TABLET BY MOUTH THREE TIMES A DAY NEEDED FOR 30 DAYS for 30 Jun, ActiveStart: 10-55-5397nenr 1 tablet by mouth every eight hourstraMADol HCl 50 MG 1 tablet as needed Orally tid for 30 days Jun, ActiveStart: 34-73-3674wgsx 1 tablet by mouth every eight hours traMADol HCl 50 MG 1 tablet as needed Orally tid for 30 days Apr, Active Start: 69-19-5766uozl 1 tablet by mouth every eight hourstraMADol HCl 50 MG 1 tablet as needed Orally tid for 30 days Mar, ActiveStart: 30-19-8472nurn 1 tablet by mouth every twelve hourstraMADol HCl 50 MG 1 tablet as needed Orally bid for 30 days Feb, ActiveStart: 04-04-2019 End: 41-15-8792cegn 1 tablet by mouth once dailyTramadol 50 mg tablet Discontinued 50 MG PO Daily April 04, 2019 12:00am July 18, 2022 10:49am triamcinolone acetonide 1 mg/ml topical cream (20 sources)CorticosteroidStart: 05-02-2024 End: 83-50-2076dllhfckybjkob (Kenalog) 0.1 % cream Indications: Acute vulvitis Apply topically 2 (two) times a day15 g 05/02/2024 07/01/2024 Discontinued (Med list cleanup)Start: 95-83-6804Nutnovq-40 Apr, 60 mgStart: 11-14-2022 Kenalog-40 Oct, 40 mgvitamin b12 0.25 mg oral tablet (4 sources)Vitamin B12 End: 89-68-5099ytzx 1 tablet by mouth in the morningcyancobalamine (Vitamin B- 12) 250 MCG tablet Take 250 mcg by mouth in the morning. 07/01/2024 Discontinued (Med list cleanup)vitamin b6 10 mg oral tablet (15 sources)Start: 08-04-2024 End: 50-40-0574eduu 1 tablet by mouth once dailyPyridoxine (Vitamin B6) 10 mg tablet Discontinued 10 MG PO Daily August 04, 2024 1:00am August 20, 2024 11:15amVitamin E (20 sources)Start: 12-25-2023 End: 62-28-2917lkvy 1 tablet by mouth once dailyvitamin E (dl, acetate) Discontinued 1 TAB PO Daily December 25, 2023 12:00am August 04, 2024 11:33am Start: 12-25-2023 End: 14-45-9804mdtc 1 tablet by mouth once dailyvitamin E (dl, acetate) Discontinued 1 TAB PO Daily December 24, 2023 11:00pm August 04, 2024 10:33am Start: 82-57-2906ufqz 1 tablet by mouth once dailyvitamin E (dl, acetate) Active 1 TAB PO Daily December 24, 2023 11:00pmStart: 62-88-2979mobp 1 tablet by mouth once dailyvitamin E (dl, acetate) Active 1 TAB PO Daily December 25, 2023 12:00am Start: 88-06-7235gviopvx E (dl, acetate) Active PO December 25, 2023 12:00am Problems Active Problems Problem ClassificationProblemDateDocumented DateEpisodic/ChronicAbdominal pain (20 sources)Abdominal pain; Translations: [Unspecified abdominal pain]Onset: 02-06-2019 Resolved: 55-38-0989VvjfraleHsevyyq disorders (20 sources)Anxiety; Translations: [Anxiety disorder, unspecified]Onset: 07-93-0258OwmyowiHjxrkyv obstructive pulmonary disease and bronchiectasis (20 sources)Chronic obstructive lung disease; Translations: [Chronic obstructive pulmonary disease, unspecified]Onset: 917208-07-6289IenkwhmFfftltuxmy and other anemia (20 sources)Iron deficiency anemia; Translations: [Iron deficiency anemia, unspecified]Onset: 12-28-2023 Resolved: 863616-07-8505KfapxifbTgtkyyysux and other anemia (6 sources)Iron deficiency anemia, unspecified; Translations: [Iron deficiency anemia, unspecified]Onset: 791403-38-3302KpkbsmjtTtyaauibjx and other anemia (20 sources)Anemia; Translations: [Anemia, unspecified]24-60-9055Ocprmzhk Deficiency and other anemia (6 sources)Other iron deficiency anemias; Translations: [OTHER IRON DEFICIENCY ANEMIAS]Onset: 76-07-0567IcnwcrasEmymxmbpdm and other anemia (2 sources)Anemia, unspecified; Translations: [Anemia, unspecified]Episodic Diseases of white blood cells (13 sources)Leukocytosis; Translations: [Leukocytosis, unspecified]Onset: 13-74-5730IcialscEnqmnqgnm of teeth and jaw (20 sources)Arthralgia of temporomandibular joint; Translations: [Arthralgia of temporomandibular joint, unspecified side]Onset: 48-17-7196ZmzmcgxkT Codes: Natural/environment (1 source)Overexertion from prolonged static or awkward postures, initial encounter; Translations: [OVEREXERTPROLNG STAT/AWK PST INIT]Onset: 11-07-2022 EpisodicEsophageal disorders (20 sources)Gastro-esophageal reflux disease with esophagitis; Translations: [Gastroesophageal reflux disease with esophagitis without hemorrhage]04-02-2025 ChronicEsophageal disorders (13 sources)Esophageal disorders; Translations: [Gastroesophageal reflux disease with esophagitis without hemorrhage]Essential hypertension (20 sources)Hypertensive disorder; Translations: [Essential (primary) hypertension]ChronicFracture of lower limb (13 sources)Nondisplaced fracture of fifth metatarsal bone, right foot, subsequent encounter for fracture with routine healing; Translations: [Nondisplaced fracture of fifth metatarsal bone, right foot, subsequent encounter for fracture with routine healing]EpisodicGenitourinary symptoms and ill-defined conditions (20 sources)Sensation as if bladder still full; Translations: [Feeling of incomplete bladder emptying]Onset: 38-21-9108IzplgvffRlcrbvak; including migraine (20 sources)Migraine without aura, not refractory ; Translations: [Migraine, unspecified, not intractable, without status migrainosus]Onset: 08-19-2014 93-61-2626LnothkfQxcscxshdxz (20 sources)External hemorrhoids; Translations: [Residual hemorrhoidal skin tags]EpisodicJoint disorders and dislocations; trauma-related (20 sources)Dislocation of temporomandibular joint; Translations: [Dislocation of jaw, unspecified side, initial encounter]92-87-0729TxmltsvhMwmasuctin disorders (16 sources)Menopausal flushing; Translations: [Menopausal and female climacteric states]09-35-9416TvudumsJafm disorders (3 sources)Mood swings; Translations: [Emotional lability]90-82-0620Ilozcpty Neoplasms of unspecified nature or uncertain behavior (4 sources)Neoplasm of muscle; Translations: [Benign neoplasm of connective and other soft tissue, unspecified]98-12-6900NmqibythAeohawgsbun deficiencies (20 sources)Vitamin D deficiency; Translations: [Vitamin D deficiency, unspecified]Onset: 21-10-9545VmuisfhHcuwfhwgtme deficiencies (20 sources)Iron deficiency; Translations: [Iron deficiency]30-48-2472Ffvtdekg Open wounds of extremities (13 sources)Late effect of open wound of extremities without tendon injury; Translations: [Unspecified open wound of unspecified toe(s) with damage to nail, sequela]EpisodicOsteoarthritis (20 sources)Arthritis of first carpometacarpal joint of right hand; Translations: [Unilateral primary osteoarthritis of first carpometacarpal joint, right hand]Onset: 12-28-2023 Resolved: 788156-65-4657CvcohkeIeqai aftercare (1 source)Other jail (current) drug therapy; Translations: [OTH LAY MIDWIFE CURRENT DRUG THERAPY]Onset: 48-33-8854PymbhfirWbzes circulatory disease (1 source)Raynaud's phenomenon; Translations: [Raynaud's syndrome without gangrene]Onset: 12-75-6688GvptvnxWmlke circulatory disease (19 sources)Raynaud's disease; Translations: [Raynaud's syndrome without gangrene]69-87-9627PdzpdljIxexd circulatory disease (5 sources)Raynaud's syndrome without gangrene; Translations: [Raynaud's syndrome]Onset: 424065-76-8574ZzostncGiyop circulatory disease (12 sources)Elevated blood-pressure reading without diagnosis of hypertension; Translations: [Elevated blood-pressure reading, without diagnosis of hypertension]EpisodicOther circulatory disease (1 source)Elevated blood-pressure reading, without diagnosis of hypertension; Translations: [Elevated blood-pressure reading, without diagnosis of hypertension]EpisodicOther congenital anomalies (15 sources)Congenital anomaly of eye; 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, unspecified]12-88-9709BhefqfvGgpkm congenital anomalies (5 sources)Congenital malformation of eye, unspecified; Translations: [Unspecified anomaly of eye]Onset: 151408-93-3387NypscpoEezfs connective tissue disease (20 sources)Spasm; Translations: [Other muscle spasm]EpisodicOther connective tissue disease (20 sources)Pain in limb; Translations: [Pain in right foot]EpisodicOther connective tissue disease (4 sources)Pain in right foot; Translations: [PAIN IN RIGHT FOOT]Onset: 39-46-5046KsulhswyFcodf connective tissue disease (1 source)Pain in left foot; Translations: [PAIN IN LEFT FOOT]Onset: 12-20-2022 EpisodicOther connective tissue disease (20 sources)Pain in right foot; Translations: [Pain in right foot]04-02-2025 EpisodicOther connective tissue disease (7 sources)Pain in right hand; Translations: [Pain in limb]EpisodicOther connective tissue disease (1 source)Pain in right toe(s); Translations: [Pain in right toe(s)]Episodic Other connective tissue disease (5 sources)Pain in left toe(s); Translations: [Pain in limb]64-64-6910Bsvnauzf Other connective tissue disease (20 sources)Hand pain; Translations: [Pain in right hand]98-84-0292LbtjqhbdBymup connective tissue disease (20 sources)Tenosynovitis of right radial styloid; Translations: [Radial styloid tenosynovitis [de Quervain]]Onset: 12-28-2023 Resolved: 578187-23-0088SnxxgvbuIcmkz connective tissue disease (20 sources)Radial styloid tenosynovitis [de Quervain]; Translations: [Radial styloid tenosynovitis]49-40-3914OomacdznQvyhy connective tissue disease (20 sources)Pain in right hand; Translations: [Pain in right hand]Onset: 12-28-2023 Resolved: 275684-45-8853RdrodbphSjkek connective tissue disease (6 sources)Pain in toe; Translations: [Pain in left toe(s)]37-37-8057Anzwwtfh Other connective tissue disease (2 sources)Pain in both feet; Translations: [Pain in right foot]01-19-2025 EpisodicOther connective tissue disease (20 sources)Muscle pain; Translations: [Myalgia, unspecified site]02-25-2025 EpisodicOther connective tissue disease (1 source)Myalgia, unspecified site; Translations: [Myalgia and myositis, unspecified]64-37-3473RmzjtutlHoxbs connective tissue disease (13 sources)Pain of toe of left foot; Translations: [Pain in left toe(s)] 70-13-8997PhagqwgcKegsm connective tissue disease (4 sources)Triggering of digit; Translations: [Trigger finger, right index finger]24-36-2846FdwhgzbeQhuwe eye disorders (15 sources)Pain in eye; Translations: [Ocular pain, unspecified eye]10-15-2024 EpisodicOther female genital disorders (20 sources)H/O: menorrhagia; Translations: [Personal history of other diseases of the female genital tract]Onset: 12-28-2023 Resolved: 675786-46-2043IhborehnXxtll female genital disorders (1 source)History of gynecological disorder; Translations: [Personal history of other diseases of the female genital tract]99-37-9081BpakinyiBxfgj female genital disorders (2 sources)Vaginal discharge; Translations: [Other specified noninflammatory disorders of vagina]42-55-5967CcvjeganJenik female genital disorders (1 source)Pruritus of vagina; Translations: [Other specified noninflammatory disorders of vagina]10-52-0629IwwrikbeEmwdj female genital disorders (4 sources)Personal history of other diseases of the female genital tract; Translations: [Personal history of other genital system and obstetric disorders] 80-63-1613AlqwdavkBhuzl gastrointestinal disorders (20 sources)Adult form of celiac disease; Translations: [Celiac disease]Onset: 12-28-2023 Resolved: 516907-14-4303QxiqwszPxxgt gastrointestinal disorders (1 source)Celiac disease; Translations: [Celiac disease]23-99-0626DhlrjtrZznam gastrointestinal disorders (1 source)Constipation, unspecified; Translations: [Constipation, unspecified] Onset: 65-55-9169NxdaiyqpJrbjw gastrointestinal disorders (6 sources)Ekemgedtzayk27-19-5235DdhoptcnTezvk gastrointestinal disorders (20 sources)Abdominal bloating; Translations: [Abdominal distension (gaseous)] 98-09-5229UdfdvogsDysyw hematologic conditions (20 sources)Other abnormality of red blood cells; Translations: [Abnormality of red blood cells]EpisodicOther hereditary and degenerative nervous system conditions (20 sources)Restless legs; Translations: [Restless legs syndrome]Onset: 12-28-2023 Resolved: 715150-16-6970SittfgcKjufp hereditary and degenerative nervous system conditions (2 sources)Restless legs syndrome; Translations: [Restless legs syndrome (RLS)] 77-87-1226TphdahyJsykx injuries and conditions due to external causes (10 sources)Other injury of unspecified body region, initial encounter; Translations: [Bruising]EpisodicOther injuries and conditions due to external causes (7 sources)Unspecified injury of right wrist, hand and finger(s), initial encounter; Translations: [Finger injury]EpisodicOther injuries and conditions due to external causes (20 sources)Thumb injury ; Translations: [Unspecified injury of right wrist, hand and finger(s), initial encounter]65-15-8376ZtkkbtxdNuxkq lower respiratory disease (4 sources)Chronic cough; Translations: [CHRONIC COUGH]Onset: 83-17-2693Vtabslnv Other lower respiratory disease (20 sources)Cough; Translations: [Cough]Onset: 56-59-5813GyyipbrbWztwv nervous system disorders (20 sources)Chronic pain; Translations: [Other chronic pain]40-47-0723Ceaksev Other nervous system disorders (3 sources)Other chronic pain; Translations: [Other chronic pain]ChronicOther nervous system disorders (4 sources)Paresthesia of skin; Translations: [PARESTHESIA OF SKIN]Onset: 04-02-1416CrvftskwJvirh nervous system disorders (16 sources)Paresthesia; Translations: [Paresthesia of skin]22-76-8851Jwxcvqnl Other nervous system disorders (14 sources)Allodynia; Translations: [Other disturbances of skin sensation] 95-78-1086HdxnhvxdCdwhg non-traumatic joint disorders (20 sources)Pain in wrist; Translations: [Pain in right wrist]05-46-0944Ukzygmuy Other non-traumatic joint disorders (20 sources)Pain in right wrist; Translations: [Pain in joint, forearm] 33-44-6884IzxiwmzyQdyyw non-traumatic joint disorders (20 sources)Pain of right wrist; Translations: [Pain in right wrist]Onset: 12-28-2023 Resolved: [id number]v nutritional; endocrine; and metabolic disorders (16 sources)Abnormal weight loss; Translations: [Abnormal weight loss]Episodic Other nutritional; endocrine; and metabolic disorders (13 sources)Abnormal weight gain; Translations: [Abnormal weight gain]Episodic Other nutritional; endocrine; and metabolic disorders (13 sources)Body mass index less than 20; Translations: [Body mass index (BMI) 19.9 or less, adult]EpisodicOther nutritional; endocrine; and metabolic disorders (1 source)Abnormal weight gainEpisodicOther nutritional; endocrine; and metabolic disorders (1 source)Abnormal weight loss; Translations: [Abnormal weight loss]Episodic Other screening for suspected conditions (not mental disorders or infectious disease) (12 sources)Other specified abnormal findings of blood chemistry; Translations: [Patient encounter status]EpisodicOther skin disorders (13 sources)Disorder of skin; Translations: [Other skin changes]03-03-2025 EpisodicOther upper respiratory disease (20 sources)Seasonal allergic rhinitis; Translations: [Other seasonal allergic rhinitis]ChronicOther upper respiratory disease (3 sources)Other seasonal allergic rhinitis; Translations: [Other seasonal allergic rhinitis]ChronicOther upper respiratory disease (20 sources)Allergic rhinitis; Translations: [Allergic rhinitis, unspecified] Onset: 07-18-2023 Resolved: 149472-39-7331ZttlbqnVyswn upper respiratory infections (13 sources)Chronic sinusitis; Translations: [Chronic sinusitis, unspecified] ChronicOvarian cyst (3 sources)Cyst of bilateral ovaries; Translations: [Unspecified ovarian cyst, right side]03-51-4710ItddjwivErmakazi codes; unclassified (20 sources)Insomnia; Translations: [Insomnia, unspecified]Onset: 02-21-2019 99-61-6763CsativtxJzcuagkt codes; unclassified (2 sources)Flushing; Translations: [FLUSHING]Onset: 68-88-2350NxqpvnwlOmakidvp codes; unclassified (20 sources)Unspecified donor, other blood; Translations: [Blood donor] 65-28-7761KzsbtxqdTvqaxade codes; unclassified (13 sources)Postprocedural state finding; Translations: [Other specified postprocedural states]EpisodicResidual codes; unclassified (13 sources)Family history of ischemic heart disease; Translations: [Family history of ischemic heart disease and other diseases of the circulatory system] EpisodicResidual codes; unclassified (16 sources)Insomnia, unspecified; Translations: [Persistent disorder of initiating or maintaining sleep]32-27-2798YfsbwpclWlgqkchf codes; unclassified (20 sources)Persistent insomnia; Translations: [Insomnia, unspecified]Onset: 12-28-2023 Resolved: 865470-90-4932IjphbrcuMclreend codes; unclassified (3 sources)History of endometrial ablation; Translations: [Other specified postprocedural states]72-46-2175VcrusmqmIpwtczit codes; unclassified (2 sources)Menopause present; Translations: [Asymptomatic menopausal state] 85-74-1448ZynppfvyDrdurmzongd; intervertebral disc disorders; other back problems (20 sources)Cervical spondylosis; Translations: [Spondylosis without myelopathy or radiculopathy, cervical region]ChronicSpondylosis; intervertebral disc disorders; other back problems (20 sources)Pain in thoracic spine; Translations: [Pain in thoracic spine]Onset: 60-46-0415OgscaplyWibfjmg and strains (16 sources)Unspecified sprain of right foot, initial encounter; Translations: [Sprain of right ankle]Onset: 542234-16-1500VmnwmfjtShfhdfobs-xvdfdzr disorders (20 sources)Nicotine dependence; Translations: [Nicotine dependence, unspecified, uncomplicated]Onset: 73-93-3038KitgfspTwjptsp on above:Added secondary to documentation in Social History.Unclassified (11 sources)Finding of sensation of bgsijss33-47-0722Tkttifosnrnq (3 sources)CONTACT W/AND (SUSP) EXPOS COVID-19; Translations: [CONTACT W/AND (SUSP) EXPOS COVID-19]Onset: 41-92-7200Jxexffs tract infections (20 sources)Postinfective urethral stricture of female; Translations: [Postinfective urethral stricture, not elsewhere classified, female]Onset: 84-31-0419JidllnkmEvroh infection (20 sources)Viremia; Translations: [Viral infection, unspecified]Onset: 783774-91-2548Grfhkfwq Past or Other Problems Problem ClassificationProblemDateDocumented DateEpisodic/ChronicAcute bronchitis (13 sources)Acute bronchitis; Translations: [Acute bronchitis, unspecified] Onset: 16-83-0513MhtpxcfxRbomyxrh reactions (13 sources)Contact dermatitis; Translations: [Contact dermatitis and other eczema, due to unspecified cause]Onset: 00-25-3652FgfcwtsxJvmneyabh infection; unspecified site (12 sources)Bacterial infectious disease; Translations: [Bacterial infection, unspecified, in conditions classified elsewhere and of unspecified site]Onset: 19-76-3099McgensrjDwyuhpr tract disease (20 sources)Other specified diseases of gallbladder; Translations: [Disorder of gallbladder]Onset: 34-96-8280IlbbipvrHvvnubxdqdeih (20 sources)Endometriosis of uterus; Translations: [Endometriosis of uterus] Onset: 08-04-2009 Resolved: 270387-79-8751CnwhlrgDjttmgkluzuhv symptoms and ill-defined conditions (20 sources)Mixed incontinence; Translations: [Incontinence]Onset: 08-17-2022 Resolved: 19-74-0792DeegvijSoucgxunywta diseases of female pelvic organs (20 sources)Chronic vaginitis; Translations: [Subacute and chronic vaginitis] Onset: 07-18-2023 Resolved: 499147-28-7891FwjhjfljKsvhnsoab disorders (20 sources)Dysmenorrhea; Translations: [Dysmenorrhea, unspecified]Onset: 07-18-2023 Resolved: 601857-00-3225HqwucxeFvme disorders (20 sources)Bipolar II disorder; Translations: [Bipolar II disorder]Onset: 07-18-2023 Resolved: 579963-67-7021VyvhhbxYvxjknhykvy chest pain (14 sources)Chest pain, unspecified; Translations: [Chest pain]Onset: 07-02-2018 EpisodicOther connective tissue disease (13 sources)Lateral epicondylitis; Translations: [Lateral epicondylitis of elbow]Onset: 54-73-2266MjezuhcsTivmf connective tissue disease (20 sources)Peroneal tendinitis of right lower limb; Translations: [Peroneal tendinitis, right leg]Onset: 12-28-2023 Resolved: 049021-11-5373SptkyrdqHsgiu eye disorders (1 source)Ocular pain, unspecified eye; Translations: [Ocular pain, unspecified eye]Onset: 59-20-4996AmknrzreZyziz female genital disorders (20 sources)Cervical intraepithelial neoplasia grade 1; Translations: [Mild cervical dysplasia]Onset: 07-18-2023 Resolved: 109305-20-6158QdwaagmzJypmi gastrointestinal disorders (5 sources)Abdominal distension (gaseous); Translations: [Flatulence, eructation, and gas pain]Onset: 130504-53-5874GnscndmuUposz inflammatory condition of skin (13 sources)Sunburn of second degree; Translations: [Sunburn of second degree] Onset: 38-38-7863PecldpemCaqus inflammatory condition of skin (13 sources)Solar erythema; Translations: [Contact dermatitis and other eczema due to sunburn]Onset: 79-69-5982DwrdbjwpGizxo injuries and conditions due to external causes (13 sources)Traumatic AND/OR non-traumatic injury; Translations: [Other injury of unspecified body region]Onset: 21-46-7973HymnhwgaPwrvn skin disorders (13 sources)Atrophoderma; 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]Onset: 22-10-6668NiozmopnYozxm upper respiratory disease (20 sources)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; Translations: [Other allergic rhinitis]Onset: 07-18-2023 Resolved: 966445-20-5686LreuwmyFzmii upper respiratory infections (20 sources)Acute maxillary sinusitis; Translations: [Acute recurrent maxillary sinusitis]Onset: 15-99-0604EyjxveqvUzwxajmr codes; unclassified (12 sources)Tobacco user; Translations: [Nondependent tobacco use disorder] Onset: 69-34-4343FpjxkbjrXybhaawe codes; unclassified (1 source)Early satiety; Translations: [Early satiety]Onset: 05-23-5187Cojslnjc Screening and history of mental health and substance abuse codes (12 sources)History of tobacco use; Translations: [Personal history of tobacco use, presenting hazards to health]Onset: 89-11-5905NkvbgyzkFarddsahoeb injury; contusion (20 sources)Contusion of right foot; Translations: [Contusion of right foot, initial encounter]Onset: 12-28-2023 Resolved: 812984-41-3096WvpbvurbMnebwbzzyxan (1 source)CONTACT W/AND (SUSP) EXPOS COVID-19; Translations: [CONTACT W/AND (SUSP) EXPOS COVID-19]Onset: 51-16-6589Nmssegvcqbbb (1 source)Chronic cough R05.3Unclassified (1 source)Allergic rhinitis, cause unspecified; Translations: [Allergic rhinitis, cause unspecified]Unclassified (1 source)Unspecified backache; Translations: [Unspecified backache]Onset: 12-26-6879Hhjcjbosdsul (1 source)Personal history of tobacco use, presenting hazards to health; Translations: [Personal history of tobacco use, presenting hazards to health] Onset: 78-75-4578Ugejgzoudssy (1 source)Nondependent tobacco use disorder; Translations: [Nondependent tobacco use disorder]Onset: 54-70-4620Ygacnlehsqxj (1 source)Bacterial infection, unspecified, in conditions classified elsewhere and of unspecified site; Translations: [Bacterial infection, unspecified, in conditions classified elsewhere and of unspecified site]Onset: 44-73-9368Ecdyw infection (20 sources)Genital herpes simplex; Translations: [Herpesviral infection of urogenital system, unspecified]Onset: 09-22-2009 Resolved: 329129-62-0035Ifcwdba Results Test NameValueInterpretationReference RangeFacilityBI MAMMOGRAM SCREENING TOMOSYNTHESIS BILATERALon 35-05-1589JE MAMMOGRAM SCREENING TOMOSYNTHESIS BILATERALThis is a summary report. The complete report is available in the patient's medical record. If you cannot access the medical record, please contact the sending organization for a detailed fax or copy. BI MAMMOGRAM SCREENING TOMOSYNTHESIS BILATERAL : 04/09/2025 12:52 PM CLINICAL HISTORY: screening. COMPARISONS: September 16, 2019 April 07, 2024. TECHNIQUE: Full field routine digital mammograms were obtained bilaterally. 3D breast tomosynthesiswas also performed. CAD analysis was performed and [...] IS VERY IMPORTANT TO YOUR HEALTH. THE [place] GUIDELINES RECOMMEND THATWOMEN 40 YEARS OF AGE AND OLDER SHOULD HAVE A MAMMOGRAM EVERY YEAR. A REMINDER LETTER WILL BE SENT AT THE APPROPRIATE TIME. THIS FACILITY UTILIZES A REMINDER SYSTEM TOENSURE ALL PATIENTS RECEIVE REMINDER NOTIFICATIONS AT THE [...] ANY PENDING ADDITIONAL VIEWS. ELECTRONICALLY SIGNED BY: Chen Antony AvailableComment on above:Order Comment: Spot compression and us prnLaboratory - Chemistry and Chemistry - challengeOrdered By: Fernanda Concepcion on 44-94-5835Gqjmmqzkm (Vitamin B12) [Mass/Vol]1187 pg/mC141-4548IjohikqkpHighland District HospitalComment on above:Performed at: - Lab[address] Director: Andres Arboleda PhD, Phone: [phone] Panel InformationOrdered By: Fernanda Concepcion on 05-70-8084Nvsbor55.50 ng/mL8.60-58.90High[facility] District HospitalBasophils Auto (Bld) [#/Vol]Ordered By: Ute Griffin on 01-27-2025 Basophils (Bld) [#/Vol]Automated basophil count0.0-0.2FUniversity Hospitals Conneaut Medical CenterBasophils/100 WBC Auto (Bld)Ordered By: Ute Griffin on 01-27-2025 Basophils/100 WBC (Bld)Automated basophil %.[facility] Complete Blood Count Auto Diffon 06-28-2059Iouknmmfw (Bld) [#/Vol]0.1 10*3/uL Normal0.0-0.2The Atrium Health Physician GroupComment on above:Result Comment: PERFORMED BY: [facility] [address] [place] [address] PATHOLOGIST QUALITY CONTROL INSPECTOR ANTONIO PEREA M.D.Performed By: #### BENNY, CBC, FE and TIBC ####[facility] [address] [id number] [facility] Basophils/100 WBC (Bld)1.2 %Normal.The Atrium Health Physician GroupComment on above:Performed By: #### BENNY, CBC, FE and TIBC ####[place] [address] USAEosinophils (Bld) [#/Vol]0.0 10*3/uL Normal0.0-0.45The Atrium Health Physician GroupComment on above:Performed By: #### BENNY, CBC, FE and TIBC ####[place] [address] USAEosinophils/100 WBC (Bld)0.5 %Normal.The Atrium Health Physician GroupComment on above:Performed By: #### BENNY, CBC, FE and TIBC ####[address] Erythrocyte distribution width (RBC) [Ratio]13.2 %Iihfzl28.9-15.3The Atrium Health Physician GroupComment on above:Performed By: #### BENNY, CBC, FE and TIBC ####[address] Hematocrit (Bld) [Volume fraction]41.5 %Hdztgl63.0-46.4The Atrium Health Physician GroupComment on above:Performed By: #### BENNY, CBC, FE and TIBC ####[place] [address] USAHemoglobin (Bld) [Mass/Vol]14.4 g/kBUpwnks07.8-15.4The [facility] Health Physician GroupComment on above: Performed By: #### BENNY, CBC, FE and TIBC ####[place] [address] USALymphocytes (Bld) [#/Vol]1.9 10*3/uLNormal 1.00-4.8The Atrium Health Physician GroupComment on above:Performed By: #### BENNY, CBC, FE and TIBC ####[place] [address] USALymphocytes/100 WBC (Bld)25.6 %Normal.[facility] Comment on above:Performed By: #### BENNY, CBC, FE and TIBC ####[address] (RBC) [Entitic mass]35.1 yqEmsc82.7-34.3The Atrium Health Physician GroupComment on above:Performed By: #### BENNY, CBC, FE and TIBC ####[address] (RBC) [Entitic vol]101.2 sNNzmi00-764Pyw At[facility] Health Physician GroupComment on above:Performed By: #### BENNY, CBC, FE and TIBC ####[address] Mean Corpuscular HGB Conc34.6 g/rROpuyug64.0-35.0[facility] Comment on above:Performed By: #### BENNY, CBC, FE and TIBC ####[place] [address] USAMonocytes (Bld) [#/Vol]0.3 10*3/uLNormal0.0-0.8The Atrium Health Physician GroupComment on above:Performed By: #### BENNY, CBC, FE and TIBC ####[place] [address] USAMonocytes/100 WBC (Bld)4.4 %Normal.The [facility] Health Physician GroupComment on above:Performed By: #### BENNY, CBC, FE and TIBC ####[address] Neutrophils (Bld) [#/Vol]4.9 10*3/uLNormal1.8-7.7[facility] Comment on above:Performed By: #### BENNY, CBC, FE and TIBC ####[address]Neutrophils/100 WBC (Bld)68.3 %Normal.The [facility]rium Health Physician GroupComment on above:Performed By: #### BENNY, CBC, FE and TIBC ####[place] [address] USANRBC%0.1 /100{WBC}Normal0-0.5The Atrium Health Physician GroupComment on above:Performed By: #### BENNY, CBC, FE and TIBC ####[place] [address] USAPlatelet mean volume (Bld) [Entitic vol]7.7 fLNormal6.3-10.7The Atrium Health Physician GroupComment on above:Performed By: #### BENNY, CBC, FE and TIBC ####[place] [address] USAPlatelets (Bld) [#/Vol]234 10*3/jYVetfji501-644Fpe At[facility] Health Physician GroupComment on above:Performed By: #### BENNY, CBC, FE and TIBC ####[place] [address] [place] RBC (Bld) [#/Vol]4.10 10*6/uLNormal3.60-5.00The [facility] Health Physician GroupComment on above:Performed By: #### BENNY, CBC, FE and TIBC ####[place] [address] USAWBC (Bld) [#/Vol]7.2 10*3/uL Normal3.8-11.6The Atrium Health Physician GroupComment on above:Performed By: #### BENNY, CBC, FE and TIBC ####[place] [address] USAEosinophils Auto (Bld) [#/Vol]Ordered By: Ute Griffin on 83-82-4498Xoepkgpwguz (Bld) [#/Vol]Automated eosinophil count0.0-0.45 [facility] HospitalEosinophils/100 WBC Auto (Bld)Ordered By: Ute Griffin on 71-92-1541Seilbtvoppb/100 WBC (Bld)Automated eosinophil %.[facility] District HospitalErythrocyte distribution width Auto (RBC) [Ratio]Ordered By: Ute Griffin on 00-42-3028Yuvfdqqqrbh distribution width (RBC) [Ratio] Erythrocyte distribution width [Ratio] by Automated count11.9-15.3FUniversity Hospitals Conneaut Medical CenterFerritinon 99-75-8454Glqlwqou [Mass/Vol]30.5 ng/mLNormal 11.0-306.8The [facility]rium Health Physician GroupComment on above:Result Comment: PERFORMED BY: [facility] [address] [place] [address] PATHOLOGIST QUALITY CONTROL INSPECTOR ANTONIO PEREA M.D.Performed By: #### BENNY, CBC, FE and TIBC ####[place] [address] [place] [address] [facility] Ferritin [Mass/volume] in Serum or PlasmaOrdered By: Ute Griffin on 01-27-2025 Ferritin [Mass/Vol]Ferritin [Mass/volume] in Serum or Fvxztk00.0-306.8High[facility] District HospitalHematocrit Auto (Bld) [Volume fraction]Ordered By: Ute Griffin on 52-01-3678Nxusmmclyy (Bld) [Volume fraction]Hematocrit [Volume Fraction] of Blood by Automated count34.0-46.4FUniversity Hospitals Conneaut Medical Center Hemoglobin [Mass/volume] in BloodOrdered By: Ute Griffin on 01-27-2025 Hemoglobin (Bld) [Mass/Vol]Hemoglobin [Mass/volume] in Blood11.8-15.4FUniversity Hospitals Conneaut Medical CenterIron [Mass/volume] in Serum or PlasmaOrdered By: Ute Griffin on 94-15-2842Lwza [Mass/Vol]Iron [Mass/volume] in Serum or Xpljod34-016 [facility] HospitalIron and TIBC Profileon 01-27-2025% Iron Imocjozfem51.7 %Fmlucf20-30Gqd [facility] Health Physician GroupComment on above: Performed By: #### BENNY, CBC, FE and TIBC ####[place] [address] [place] [address] USAIron [Mass/Vol]151 ug/wEYcderk72-134Mom Atrium Health Physician GroupComment on above:Performed By: #### BENNY, CBC, FE and TIBC ####[facility] [address] [place] [address] [facility] Total Iron Binding Hhdwrajw208 ug/jVCmskzt193-742Baj [facility] Comment on above:Performed By: #### BENNY, CBC, FE and TIBC ####[facility] [address] [place] [address] USATransferrin [Mass/Vol]231 mg/hBTyuofi881-525Par [facility] Health Physician GroupComment on above:Performed By: #### BENNY, CBC, FE and TIBC ####[facility] [address] [place] [address] USALeukocytes [#/volume] corrected for nucleated erythrocytes in Blood by Automated counOrdered By: Ute Griffin on 91-44-3737JLY corrected for nucl RBC Auto (Bld) [#/Vol]Leukocytes [#/volume] corrected for nucleated erythrocytes in Blood by Automated coun3.8-11.6FUniversity Hospitals Conneaut Medical CenterLymphocytes Auto (Bld) [#/Vol]Ordered By: Ute Griffin on 75-87-9695Ptmndifiujs (Bld) [#/Vol]Lymphocytes [#/volume] in Blood by Automated count1.00-4.8[facility] District HospitalLymphocytes/100 WBC Auto (Bld) Ordered By: Ute Griffin on 84-20-8056Asvbdtmuwwq/100 WBC (Bld)Lymphocytes/100 leukocytes in Blood by Automated count.[facility] HospitalH Auto (RBC) [Entitic mass]Ordered By: Ute Griffin on 17-36-7758XMJ (RBC) [Entitic mass]MCH [Entitic mass] by Automated akizsYcom07.7-34.3FUniversity Hospitals Conneaut Medical CenterMCHC Auto (RBC) [Mass/Vol]Ordered By: Ute Griffin on 01-27-2025 MCHC (RBC) [Mass/Vol]MCHC [Mass/volume] by Automated count32.0-35.0High[facility] District HospitalMCV Auto (RBC) [Entitic vol]Ordered By: Ute Griffin on 60-22-6316TAR (RBC) [Entitic vol]MCV [Entitic volume] by Automated countHigh 80-100High[facility] District HospitalMonocytes Auto (Bld) [#/Vol]Ordered By: Ute Griffin on 95-46-4978Cdvddgnps (Bld) [#/Vol]Automated blood monocyte count 0.0-0.8[facility] HospitalMonocytes/100 WBC Auto (Bld)Ordered By: Ute Griffin on 68-83-9434Ssqivwyuk/100 WBC (Bld)Automated monocyte %.[facility] HospitalNeutrophils Auto (Bld) [#/Vol]Ordered By: Ute Griffin on 71-15-8645Rsnlamslmzq (Bld) [#/Vol]Neutrophils [#/volume] in Blood by Automated count1.8-7.7FUniversity Hospitals Conneaut Medical CenterNeutrophils/100 WBC Auto (Bld) Ordered By: Ute Griffin on 22-54-8302Bucpqxvuyqp/100 WBC (Bld)Automated neutrophil %.[facility] HospitalNucleated erythrocytes [Presence] in Blood by Automated countOrdered By: Ute Griffin on 56-83-3572Agyrfyifg RBC Auto Ql (Bld)Nucleated erythrocytes [Presence] in Blood by Automated count0-0.5 [facility] HospitalPlatelet mean volume Auto (Bld) [Entitic vol] Ordered By: Ute Griffin on 67-58-1296Ejzkitst mean volume (Bld) [Entitic vol] Platelet mean volume [Entitic volume] in Blood by Automated count6.3-10.7 [facility] HospitalPlatelets Auto (Bld) [#/Vol]Ordered By: Ute Griffin on 86-54-8347Dtvuqdcqi (Bld) [#/Vol]Platelets [#/volume] in Blood by Automated -178XywsojnlwHighland District HospitalRBC Auto (Bld) [#/Vol] Ordered By: Ute Griffin on 93-46-0783DOF (Bld) [#/Vol]Erythrocytes [#/volume] in Blood by Automated count3.60-5.00University Hospitals Beachwood Medical Centererum or plasma iron binding capacity measurement (mass/volume)Ordered By: Ute Griffin on 81-72-8320Mtuc binding capacity [Mass/Vol]Iron binding capacity [Mass/volume] in Serum or Aghuhh136-125QsrrejnwmUniversity Hospitals Beachwood Medical Centererum or plasma iron saturation measurement (mass fraction)Ordered By: Ute Griffin on 20-52-5080Flkj saturation [Mass fraction]Iron saturation [Mass Fraction] in Serum or Plasma 20-50[facility] HospitalTransferrin [Mass/volume] in Serum or PlasmaOrdered By: Ute Griffin on 09-34-3160Jqigfgvfjvr [Mass/Vol]Transferrin [Mass/volume] in Serum or Rjvqto340-654OfmfokswvHighland District HospitalWBC Auto (Bld) [#/Vol]Ordered By: Ute Griffin on 46-18-9446CTP (Bld) [#/Vol]Leukocytes [#/volume] in Blood by Automated count3.8-11.6FUniversity Hospitals Conneaut Medical Center X-ray reportOrdered By: Freedom Mcmillan on 86-67-9092Ongtb reportST. MARY'S [place] [address] XRay Report Signed Patient: Katy Banuelos MR#: [id number] : 1975 Acct:[id number] Age/Sex: 50 / F ADM Date: 5 Loc: XDS Room: Type: [facility] Attending Dr: Marta Hernandez DO Copies [...] Jr., D.OJf 01/27/2025 2:32 PM Dictation Location: [place] [address] Transcribed By: [facility] 01/27/25 1432 Dictated By: Freedom Mcmillan Jr, DO 01/27/25 1432 Signed By: 01/27/25 1432 [facility] HospitalXR chest 2V*on 95-71-3991CY chest 2V*[facility] [address] [place] [id number] XRay Report Signed Patient: Katy Banuelos MR#: [id number] : 1975 Acct:[id number] Age/Sex: 50 / F ADM Date: 01/27/25 Loc: [facility] Room: Type: [facility] Attending Dr: Marta Hernandez DO Copies [...] Jr., D.OJf 01/27/2025 2:32 PM Dictation Location: [place] [address] Transcribed By: [facility] 01/27/25 1432 Dictated By: Freedom Mcmillan Jr, DO 01/27/25 1432 Signed By: 01/27/25 [facility] Physician GroupNo Panel Informationon 11-77-9440Vuufubsami Yanez LPN 01/19/2025 9:08 PM Splint Application [...] with left foot cam boot. Ref # [id number] Beaufort Memorial HospitalXR FOOT 3+ VIEWS LEFTon 71-11-5774AK FOOT 3+ VIEWS LEFTTitle of exam: XR FOOT 3+ VIEWS LEFT [...] report is generated using voice recognition reporting (Leftronic). On occasion, Powerscribe erroneously drops words from the report or replaces the spoken word with a similar sounding word. Please call with any questions/concerns regarding the report.NormalNot AvailableXR Foot - left 3 Viewson 01-16-2025 Title of exam: XR FOOT 3+ VIEWS [...] report is generated using voice recognition reporting (Talima Therapeuticscribe). On occasion, Powerscribe erroneously drops words from the report or replaces the spoken word with a similar sounding word. Please call with any questions/concerns regarding the report. Adonay Gonzalez MD - 01/16/2025 Title of exam: XR [...] report is generated using voice recognition reporting (Talima Therapeuticscribe). On occasion, Powerscribe erroneously drops words from the report or replaces the spoken word with a similar sounding word. Please call with any questions/concerns regarding the report. NOMS HealthcareRadiology Study observation (narrative)NOMS HealthcareXR Foot - left 3 ViewsOrdered By: Adonay Lawrence on 89-54-0547QCAM Healthcare Work Phone: Laboratory - Cytologyon 30-43-6368Mpprbfztnq Cyto stain Nom (Cvx/Vag) [ID]CommentNOLee's Summit HospitalComment on above:Neva Huynh Repairer Sash And Door (ASCP)Cytology report Cyto stain Doc (Cvx/Vag)CommentHawthorn Children's Psychiatric Hospital Comment on above:NEGATIVE FOR INTRAEPITHELIAL LESION OR MALIGNANCY.Cytology report Cyto stain.thin prep Doc (Cvx/Vag)CommentHawthorn Children's Psychiatric HospitalComment on above: This liquid based ThinPrep(R) pap test was screened with the use of an image guided system. Statement of adequacy Cyto stain (Cvx/Vag) [Interp]CommentHawthorn Children's Psychiatric HospitalComment on above:Satisfactory for evaluation. Endocervical and/or squamous metaplastic cells (endocervical component) are present. Laboratory - Microbiology and Antimicrobial susceptibilityon 87-10-3064KJI 16+18+31+33+35+39+45+51+52+56+58+59+66+68 DNA Probe+sig amp Ql (Cvx)Negative NegativeNOAL HealthcareComment on above:This nucleic acid amplification test detects fourteen high-risk HPV types (16,18,31,33,35,39,45,51,52,56,58,59,66,68) without differentiation. Microscopic observation Other stain Nom (Unsp spec).[facility] HealthcareLabor[facility] - Miscellaneous testson 97-76-2015Swisdpv comment (Unsp spec) [Interp]CommentNOLee's Summit HospitalComment on above:The Pap smear is a screening test designed to aid in the detection of premalignant and malignant conditions of the uterine cervix. It is not a diagnostic procedure and should not be used as the sole means of detecting cervical cancer. Both false-positive and false-negative reports do occur. No Panel Informationon 85-28-0650Zvlexhvne ICD code [Identifier]CommentHawthorn Children's Psychiatric HospitalComment on above:Z01.419 Z12.4 Performed at: - [facility] [address] [place], [place] [id number] Director Underwriter Sales: Antony Dunne MD, Phone: [phone] Performed at: - Lab[address] [id number] Director Underwriter Sales: Faviola Wade MD, Phone: [phone] Performed at: Labco[address] [id number] Director Underwriter Sales: Faviola Wade MD, Phone: [phone] Specimen Comment: No. of containers..01 ThinPrep [facility]ialGarnet Health Laboratory - Chemistry and Chemistry - challengeon 35-89-6973Sncmwa Ag 125 Qn7.5 [arb'U]/mL0.0 - 38.1 U/mLNOMS HealthcareComment on above:[facility] Electrochemiluminescence Immunoassay (ECLIA) Values obtained with different assay methods or kits cannot be used interchangeably. Results cannot be interpreted as absolute evidence of the presence or absence of malignant disease. Carcinoembryonic Ag [Mass/Vol]3.6 ng/mL0.0 - 4.7 ng/mLNOMS HealthcareComment on above:Nonsmokers <3.9 Smokers <5.6 [facility] Electrochemiluminescence Immunoassay (ECLIA) Values obtained with different assay methods or kits cannot be used interchangeably. Results cannot be interpreted as absolute evidence of the presence or absence of malignant disease. Follitropin Qn49.6 m[IU]/mLmIU/mLNOMS HealthcareComment on above:Adult Female Range Follicular phase 3.5 - 12.5 Ovulation phase 4.7 - 21.5 Luteal phase 1.7 - 7.7 Postmenopausal 25.8 - 134.8 No Panel Informationon 65-95-1707Wbozftguk at: Lab[address] [id number] Director Underwriter Sales: Andres Arboleda PhD, Phone: [phone] Health Laboratory - Chemistry and Chemistry - challengeon 25-46-3357Yckp T4 [Mass/Vol] 0.92 ng/dL0.76-1.46[facility] HospitalTSH Qn0.850 m[IU]/L 0.358-3.740[facility] HospitalNo Panel Informationon 11-10-2024 Miscellaneous TestCOMMENT.[facility] District HospitalComment on above:Test Ordered: [id number] AChR Binding Abs, SerumAChR Binding Abs, Serum <0.03 nmol/L BN Reference Range: 0.00-0.24 Negative: 0.00 - 0.24 Borderline: 0.25 - 0.40 Positive: >0.40Performed at: [address] [id number] Director: Rikki Robert MD, Phone: [phone] at: [address] [id number] Director: Andres Arboleda PhD, Phone: [phone] Ordered: [id number] AChR Blocking Abs, SerumAChR Blocking Abs, Serum 13 % BN Reference Range: 0-25This test was developed and its performance characteristicsdetermined by [employer]. It has not been cleared orapproved by the Food and Drug Administration. Negative: 0 - 25 Borderline: 26 - 30 Positive:>30Performed at: [address] [id number] Director: Rikki Robert MD, Phone: [phone] at: [address] [id number] Director: Andres Arboleda PhD, Phone: [phone] or plasma thyroglobulin antibody assay (units/volume)on 18-82-5130Mcnztvgwhkccc Ab QnSerum or plasma thyroglobulin antibody assay (units/volume)0.0-0.9[facility] HospitalComment on above:Thyroglobulin Antibody measured by Sasha CoulterMethodologyIt should be noted that the presence of thyroglobulinantibodies may not be pathogenic nor diagnostic, especiallyat very low levels. The assay round corner cutter operator has found thatfour percent of individuals without evidence of thyroiddisease or autoimmunity will have positive TgAb levels upto 4 IU/mL.Performed at: [address] [id number] Director: Andres Arboleda PhD, Phone: [phone] or plasma thyroperoxidase antibody assay (units/volume)on 76-86-3118VZT Ab QnSerum or plasma thyroperoxidase antibody assay (units/volume)0-34[facility] HospitalMR head/brain wo/w conon 55-56-1494ZR head/brain wo/[place] [address] MRI Report Signed Patient: Katy Banuelos MR#: [id number] : 1975 Acct:[id number] Age/Sex: 49 / F ADM Date: 11/05/24 Loc: MR [facility]: [facility]: Fernanda Concepcion MD Copies to: [...] Fantasma Figueroa M.D.11/05/2024 5:42 PM Dictation Location: [place] [address] Transcribed By: [facility] 11/05/24 174 Dictated By: Fantasma Figueroa MD 11/05/24 173 Signed By: 11/05/[address] [place] [address] Physician GroupNegnetic resonance imaging reportOrdered By: Fantasma Figueroa on 04-15-1716Ardxz [facility] [place] [address] [place] [address] MRI Report Signed Patient: Katy Banuelos MR#: [id number] : 1975 Acct:[id number] Age/Sex: 49 / F ADM Date: 5 Loc: MR Room: [facility] Attending Dr: Fernanda Concepcion MD Copies to: [...] to suggest a recent ischemic event. No extra- axial collections or mass effect are seen. No midline abnormalities are noted. No definite focal orbital abnormalities.. MR/MR head/brain wo/w con IMPRESSION: Essentially unremarkable MRI brain performed with and without contrast the patient's age. Impression dictated by: Fantasma Figueroa M.D.11/05/2024 5:42 PM Dictation Location: [place] [address] Transcribed By: [facility] 11/05/241741 Dictated By: Fantasma Figueroa MD 11/05/241734 Signed By: 11/05/241741 [facility] Work Phone: Basophils Auto (Bld) [#/Vol]Ordered By: Ute Griffin on 93-31-3345Alnhpimrw (Bld) [#/Vol]Automated basophil count0.0-0.2FUniversity Hospitals Conneaut Medical CenterBasophils/100 WBC Auto (Bld)Ordered By: Ute Griffin on 19-19-4050Kvuypgqze/100 WBC (Bld)Automated basophil %.[facility] HospitalComplete Blood Count Auto Diffon 26-10-6018Mecrczxva (Bld) [#/Vol]0.1 10*3/uLNormal0.0-0.2The [facility] Health Physician GroupComment on above:Result Comment: PERFORMED BY: [facility] [address] [place] [address] PATHOLOGIST QUALITY CONTROL INSPECTOR ANTONIO EPREA M.D.Performed By: #### BENNY, FE and TIBC, CBC #### [place] [address] USABasophils/100 WBC (Bld)0.9 %Normal.The [facility] Health Physician GroupComment on above:Performed By: #### BENNY, FE and TIBC, CBC #### [place] [address] USAEosinophils (Bld) [#/Vol]0.1 10*3/uLNormal0.0-0.45The [facility] Health Physician GroupComment on above:Performed By: #### BENNY, FE and TIBC, CBC #### [place] [address] USAEosinophils/100 WBC (Bld)0.9 %Normal.The [facility] Health Physician GroupComment on above:Performed By: #### BENNY, FE and TIBC, CBC #### [place] [address] USAErythrocyte distribution width (RBC) [Ratio]14.4 %Normal 11.9-15.3The [facility] Health Physician GroupComment on above:Performed By: #### BENNY, FE and TIBC, CBC #### [place] [address] USAHematocrit (Bld) [Volume fraction]39.2 %Pnjlps32.0-46.4The [facility] Health Physician GroupComment on above:Performed By: #### BENNY, FE and TIBC, CBC #### [place] [address] USAHemoglobin (Bld) [Mass/Vol]13.7 g/nGNdbrig12.8-15.4The [facility] Health Physician GroupComment on above:Performed By: #### BENNY, FE and TIBC, CBC #### [place] [address] USALymphocytes (Bld) [#/Vol]1.4 10*3/uLNormal1.00-4.8The [facility] Health Physician GroupComment on above:Performed By: #### BENNY, FE and TIBC, CBC #### [address] [place] [address] USALymphocytes/100 WBC (Bld)21.4 %Normal.The [facility] Health Physician GroupComment on above:Performed By: #### BENNY, FE and TIBC, CBC #### [facility] [address] [place] [address] USAH (RBC) [Entitic mass]34.7 edYebq30.7-34.3The [facility] Health Physician GroupComment on above:Performed By: #### BENNY, FE and TIBC, CBC #### [place] [address] USAMCV (RBC) [Entitic vol]99.4 oTJyauoo98-832Dsb [facility] Health Physician GroupComment on above:Performed By: #### BENNY, FE and TIBC, CBC #### [place] [address] USAMean Corpuscular HGB Conc34.9 g/aRNxtuas96.0-35.0The [facility] Health Physician GroupComment on above:Performed By: #### BENNY, FE and TIBC, CBC #### [place] [address] USAMonocytes (Bld) [#/Vol]0.4 10*3/uLNormal0.0-0.8The [facility] Health Physician GroupComment on above:Performed By: #### BENNY, FE and TIBC, CBC #### [place] [address] USAMonocytes/100 WBC (Bld)5.4 %Normal.The [facility] Health Physician GroupComment on above:Performed By: #### BENNY, FE and TIBC, CBC #### [place] [address] USANeutrophils (Bld) [#/Vol]4.7 10*3/uLNormal1.8-7.7The [facility] Health Physician GroupComment on above:Performed By: #### BENNY, FE and TIBC, CBC #### [place] [address] USANeutrophils/100 WBC (Bld)71.4 %Normal.The [facility] Health Physician GroupComment on above:Performed By: #### BENNY, FE and TIBC, CBC #### [facility] [address] [place] [address] USANRBC%0.1 /100{WBC}Normal0-0.5The [facility] Comment on above:Performed By: #### BENNY, FE and TIBC, CBC #### [place] [address] USAPlatelet mean volume (Bld) [Entitic vol]7.7 fLNormal 6.3-10.7The [facility] Health Physician GroupComment on above:Performed By: #### BENNY, FE and TIBC, CBC #### [place] [address] USAPlatelets (Bld) [#/Vol]242 10*3/jZGpukxq163-790Gra [facility] Health Physician GroupComment on above:Performed By: #### BENNY, FE and TIBC, CBC #### [facility] [address] [place] [address] USARBC (Bld) [#/Vol]3.95 10*6/uLNormal3.60-5.00The [facility] Health Physician GroupComment on above:Performed By: #### BENNY, FE and TIBC, CBC #### [place] [address] USAWBC (Bld) [#/Vol]6.6 10*3/uLNormal3.8-11.6The [facility] Health Physician GroupComment on above:Performed By: #### BENNY, FE and TIBC, CBC #### [facility] [address] [place] [address] USAEosinophils Auto (Bld) [#/Vol]Ordered By: Ute Griffin on 49-90-7361Ivvtavhjlna (Bld) [#/Vol]Automated eosinophil count0.0-0.45[facility] HospitalEosinophils/100 WBC Auto (Bld)Ordered By: Ute Griffin on 37-38-1559Xgwmvpwdzzb/100 WBC (Bld)Automated eosinophil %.[facility] HospitalErythrocyte distribution width Auto (RBC) [Ratio]Ordered By: Ute Griffin on 14-09-6764Kpcfqksgtlw distribution width (RBC) [Ratio]Erythrocyte distribution width [Ratio] by Automated count11.9-15.3FUniversity Hospitals Conneaut Medical CenterFerritinon 09-86-6019Wuvgqalg [Mass/Vol]55.8 ng/bCNwaytr62.0-306.8The [facility] Health Physician GroupComment on above:Result Comment: PERFORMED BY: [facility] [address] [facility] [place] [address] PATHOLOGIST QUALITY CONTROL INSPECTOR ANTONIO PEREA M.D.Performed By: #### BENNY, FE and TIBC, CBC #### [facility] [address] [place] [address] USAFerritin [Mass/volume] in Serum or PlasmaOrdered By: Ute Griffin on 20-75-6095Pnyefjyp [Mass/Vol]Ferritin [Mass/volume] in Serum or Hhpnik70.0-306.8[facility] HospitalHematocrit Auto (Bld) [Volume fraction]Ordered By: Ute Griffin on 31-75-0834Mpjzlvnols (Bld) [Volume fraction]Hematocrit [Volume Fraction] of Blood by Automated count34.0-46.4 [facility] HospitalHemoglobin [Mass/volume] in BloodOrdered By: Ute Griffin on 47-34-9009Hmzvdwozko (Bld) [Mass/Vol]Hemoglobin [Mass/volume] in Blood11.8-15.4FUniversity Hospitals Conneaut Medical CenterIron [Mass/volume] in Serum or PlasmaOrdered By: Ute Griffin on 25-51-6850Rgqx [Mass/Vol]Iron [Mass/volume] in Serum or Znrxjy34-025HahpotgbmHighland District HospitalIron and TIBC Profileon 10-14-2024% Iron Fhoeqaotff82.4 %Ahfxwk09-55Hie [facility] Health Physician GroupComment on above:Performed By: #### BENNY, FE and TIBC, CBC #### [facility] [address] [place] [address] USAIron [Mass/Vol]140 ug/mEVteqou27-104Ufp [facility] Physician GroupComment on above:Performed By: #### BENNY, FE and TIBC, CBC #### [facility] [address] [place] [address] USATotal Iron Binding Ipftkzmi204 ug/vXPafejf398-666Mdf [facility] Physician [facility] Promise Of VicksburgComment on above:Performed By: #### BENNY, FE and TIBC, CBC #### [facility] [address] [place] [address] USATransferrin [Mass/Vol]216 mg/tZYuhuen848-033Jrq [facility] Health Physician GroupComment on above:Performed By: #### BENNY, FE and TIBC, CBC #### [facility] [address] [place] [address] USALeukocytes [#/volume] corrected for nucleated erythrocytes in Blood by Automated counOrdered By: Ute Griffin on 00-55-3724WBU corrected for nucl RBC Auto (Bld) [#/Vol]Leukocytes [#/volume] corrected for nucleated erythrocytes in Blood by Automated coun3.8-11.6FUniversity Hospitals Conneaut Medical Center Lymphocytes Auto (Bld) [#/Vol]Ordered By: Ute Griffin on 38-10-7819Ojovrcmjtcw (Bld) [#/Vol]Lymphocytes [#/volume] in Blood by Automated count1.00-4.8[facility] HospitalLymphocytes/100 WBC Auto (Bld)Ordered By: Ute Griffin on 58-69-7441Rskvcosdssf/100 WBC (Bld)Lymphocytes/100 leukocytes in Blood by Automated count.[facility] Auto (RBC) [Entitic mass] Ordered By: Ute Griffin on 29-82-9998XKH (RBC) [Entitic mass]MCH [Entitic mass] by Automated wlvfdTacn15.7-34.3FMount St. Mary HospitalHC Auto (RBC) [Mass/Vol]Ordered By: Ute Griffin on 43-41-9160VHHN (RBC) [Mass/Vol]MCHC [Mass/volume] by Automated count32.0-35.0[facility] HospitalV Auto (RBC) [Entitic vol]Ordered By: Ute Griffin on 44-82-3695FBF (RBC) [Entitic vol]MCV [Entitic volume] by Automated dtany82-066BlbsopyofHighland District HospitalMonocytes Auto (Bld) [#/Vol]Ordered By: Ute Griffin on 10-14-2024 Monocytes (Bld) [#/Vol]Automated blood monocyte count0.0-0.8[facility] HospitalMonocytes/100 WBC Auto (Bld)Ordered By: Ute Griffin on 10-14-2024 Monocytes/100 WBC (Bld)Automated monocyte %.[facility] Neutrophils Auto (Bld) [#/Vol]Ordered By: Ute Griffin on 26-18-3548Kuktfpzdcef (Bld) [#/Vol]Neutrophils [#/volume] in Blood by Automated count1.8-7.7FUniversity Hospitals Conneaut Medical CenterNeutrophils/100 WBC Auto (Bld)Ordered By: Ute Griffin on 25-73-2533Zqgvxqcyohb/100 WBC (Bld)Automated neutrophil %.[facility] HospitalNucleated erythrocytes [Presence] in Blood by Automated count Ordered By: Ute Griffin on 14-40-9335Adtfhtaji RBC Auto Ql (Bld)Nucleated erythrocytes [Presence] in Blood by Automated count0-0.5FUniversity Hospitals Conneaut Medical CenterPlatelet mean volume Auto (Bld) [Entitic vol]Ordered By: Ute Griffin on 76-87-2002Ehwangko mean volume (Bld) [Entitic vol]Platelet mean volume [Entitic volume] in Blood by Automated count6.3-10.7FUniversity Hospitals Conneaut Medical CenterPlatelets Auto (Bld) [#/Vol]Ordered By: Ute Griffin on 10-14-2024 Platelets (Bld) [#/Vol]Platelets [#/volume] in Blood by Automated bqhke909-108 [facility] HospitalRBC Auto (Bld) [#/Vol]Ordered By: Ute Griffin on 63-07-1851JYY (Bld) [#/Vol]Erythrocytes [#/volume] in Blood by Automated count3.60-5.00University Hospitals Beachwood Medical Centererum or plasma iron binding capacity measurement (mass/volume)Ordered By: Ute Griffin on 43-81-2124Uezy binding capacity [Mass/Vol]Iron binding capacity [Mass/volume] in Serum or Lifsio858-509JlhxkhvvyUniversity Hospitals Beachwood Medical Centererum or plasma iron saturation measurement (mass fraction)Ordered By: Ute Griffin on 85-39-7059Hbfm saturation [Mass fraction]Iron saturation [Mass Fraction] in Serum or Mabufn50-78KmfsayyufHighland District HospitalTransferrin [Mass/volume] in Serum or PlasmaOrdered By: Ute Griffin on 94-94-4704Pclcgcpqatg [Mass/Vol]Transferrin [Mass/volume] in Serum or Vxyjav028-132BhbujkobhHighland District HospitalWBC Auto (Bld) [#/Vol] Ordered By: Ute Griffin on 53-49-4065QGA (Bld) [#/Vol]Leukocytes [#/volume] in Blood by Automated count3.8-11.6FUniversity Hospitals Conneaut Medical CenterBasophils Auto (Bld) [#/Vol]Ordered By: Ute Griffin on 14-38-1641Xqnqgzbqr (Bld) [#/Vol] Automated basophil count0.0-0.2FUniversity Hospitals Conneaut Medical CenterBasophils/100 WBC Auto (Bld)Ordered By: Ute Griffin on 55-61-4297Tdpjcorlk/100 WBC (Bld) Automated basophil %.[facility] HospitalComplete Blood Count Auto Diffon 12-93-9816Mfofbxeuj (Bld) [#/Vol]0.1 10*3/uLNormal0.0-0.2The [facility] Health Physician GroupComment on above:Result Comment: PERFORMED BY: [place] [address] PATHOLOGIST QUALITY CONTROL INSPECTOR ANTONIO PEREA M.D.Performed By: #### CBC, BENNY, FE and TIBC #### [facility] [address] [place] [address] USABasophils/100 WBC (Bld)1.3 %Normal.The [facility] Health Physician GroupComment on above:Performed By: #### CBC, BENNY, FE and TIBC #### [facility] [address] [place] [address] USAEosinophils (Bld) [#/Vol]0.0 10*3/uLNormal0.0-0.45The [facility] Health Physician GroupComment on above:Performed By: #### CBC, BENNY, FE and TIBC #### [place] [address] USAEosinophils/100 WBC (Bld)0.6 %Normal.The [facility] Health Physician GroupComment on above:Performed By: #### CBC, BENNY, FE and TIBC #### [place] [address] USAErythrocyte distribution width (RBC) [Ratio]16.4 %High 11.9-15.3The [facility] Health Physician GroupComment on above:Performed By: #### CBC, BENNY, FE and TIBC #### [place] [address] USAHematocrit (Bld) [Volume fraction]32.9 %Low34.0-46.4The [facility] Health Physician GroupComment on above:Performed By: #### CBC, BENNY, FE and TIBC #### [place] [address] USAHemoglobin (Bld) [Mass/Vol]11.1 g/dLLow11.8-15.4The [facility] Health Physician GroupComment on above:Performed By: #### CBC, BENNY, FE and TIBC #### [place] [address] USALymphocytes (Bld) [#/Vol]1.4 10*3/uLNormal1.00-4.8The [facility] Health Physician GroupComment on above:Performed By: #### CBC, BENNY, FE and TIBC #### [place] [address] USALymphocytes/100 WBC (Bld)21.1 %Normal.The [facility] Health Physician GroupComment on above:Performed By: #### CBC, BENNY, FE and TIBC #### [place] [address] USAMCH (RBC) [Entitic mass]32.0 wqNvtvgu70.7-34.3The [facility] Health Physician GroupComment on above:Performed By: #### CBC, BENNY, FE and TIBC #### [place] [address] USAMCV (RBC) [Entitic vol]94.4 dCTujpug73-412Smf [facility] Physician GroupComment on above:Performed By: #### CBC, BENNY, FE and TIBC #### [place] [address] USAMean Corpuscular HGB Conc33.9 g/pJUbopgc69.0-35.0The [facility] Health Physician GroupComment on above:Performed By: #### CBC, BENNY, FE and TIBC #### [place] [address] USAMonocytes (Bld) [#/Vol]0.4 10*3/uLNormal0.0-0.8The [facility] Health Physician GroupComment on above:Performed By: #### CBC, BENNY, FE and TIBC #### [place] [address] USAMonocytes/100 WBC (Bld)5.3 %Normal.The [facility] Health Physician GroupComment on above:Performed By: #### CBC, BENNY, FE and TIBC #### [place] [address] USANeutrophils (Bld) [#/Vol]4.8 10*3/uLNormal1.8-7.7The [facility] Health Physician GroupComment on above:Performed By: #### CBC, BENNY, FE and TIBC #### [place] [address] USANeutrophils/100 WBC (Bld)71.7 %Normal.The [facility] Health Physician GroupComment on above:Performed By: #### CBC, BENNY, FE and TIBC #### [place] [address] USANRBC%0.0 /100{WBC}Normal0-0.5The [facility] Comment on above:Performed By: #### CBC, BENNY, FE and TIBC #### [place] [address] USAPlatelet mean volume (Bld) [Entitic vol]7.6 fLNormal 6.3-10.7The [facility] Health Physician GroupComment on above:Performed By: #### CBC, BENNY, FE and TIBC #### [facility] [address] [place] [address] USAPlatelets (Bld) [#/Vol]223 10*3/cDWbirnc331-668Ldf [facility] Physician GroupComment on above:Performed By: #### CBC, BENNY, FE and TIBC #### [facility] [address] [place] [address] USARBC (Bld) [#/Vol]3.49 10*6/uLLow3.60-5.00The [facility] Health Physician GroupComment on above:Performed By: #### CBC, BENNY, FE and TIBC #### [place] [address] USAWBC (Bld) [#/Vol]6.7 10*3/uLNormal3.8-11.6The [facility] Health Physician GroupComment on above:Performed By: #### CBC, BENNY, FE and TIBC #### [place] [address] USAEosinophils Auto (Bld) [#/Vol]Ordered By: Ute Griffin on 09-50-2507Npjopyhecgz (Bld) [#/Vol]Automated eosinophil count0.0-0.45[facility] HospitalEosinophils/100 WBC Auto (Bld)Ordered By: Ute Griffin on 57-89-7923Witacfxuluy/100 WBC (Bld)Automated eosinophil %.[facility] HospitalErythrocyte distribution width Auto (RBC) [Ratio]Ordered By: Ute Griffin on 33-82-6561Jsifrkdmejf distribution width (RBC) [Ratio]Erythrocyte distribution width [Ratio] by Automated yglgpZwty65.9-15.3FUniversity Hospitals Conneaut Medical CenterFerritinon 76-57-4217Inqrecpb [Mass/Vol]5.2 ng/mLLow11.0-306.8The [facility] Health Physician GroupComment on above:Result Comment: PERFORMED BY: [place] [address] PATHOLOGIST QUALITY CONTROL INSPECTOR ANTONIO PEREA M.D.Performed By: #### CBC, BENNY, FE and TIBC #### [place] [address] USAFerritin [Mass/volume] in Serum or PlasmaOrdered By: Ute Griffin on 27-74-9638Akopofgw [Mass/Vol]Ferritin [Mass/volume] in Serum or YccaphTmw44.0-306.8[facility] HospitalHematocrit Auto (Bld) [Volume fraction]Ordered By: Ute Griffin on 74-79-2408Lljrosrvii (Bld) [Volume fraction]Hematocrit [Volume Fraction] of Blood by Automated gvkufQag67.0-46.4 [facility] HospitalHemoglobin [Mass/volume] in BloodOrdered By: Ute Griffin on 80-39-9409Kvbgtqygxs (Bld) [Mass/Vol]Hemoglobin [Mass/volume] in OjtccVtq92.8-15.4FUniversity Hospitals Conneaut Medical CenterIron [Mass/volume] in Serum or PlasmaOrdered By: Ute Griffin on 65-36-7128Xivf [Mass/Vol]Iron [Mass/volume] in Serum or RfhgdjTvs07-043GxfydhspsHighland District HospitalIron and TIBC Profileon 08-04-2024% Iron Jwxusvkmzs06.2 %Psx83-83Cvl [facility] Comment on above:Performed By: #### CBC, BENNY, FE and TIBC #### [facility] [address] [place], [place] [address] USAIron [Mass/Vol]49 ug/cSCtm46-988Wms [facility] Physician GroupComment on above:Performed By: #### CBC, BENNY, FE and TIBC #### [facility] [address] [place] [address] USATotal Iron Binding Cjirjidk008 ug/oHWjqzrj777-387Tzk [facility] Physician GroupComment on above:Performed By: #### CBC, BENNY, FE and TIBC #### [place] [address] USATransferrin [Mass/Vol]288 mg/dWLvyngu383-564Iln [facility] Physician GroupComment on above:Performed By: #### CBC, BENNY, FE and TIBC #### [facility] [address] [place] [address] USALeukocytes [#/volume] corrected for nucleated erythrocytes in Blood by Automated counOrdered By: Ute Griffin on 81-33-5862LDD corrected for nucl RBC Auto (Bld) [#/Vol]Leukocytes [#/volume] corrected for nucleated erythrocytes in Blood by Automated coun3.8-11.6FUniversity Hospitals Conneaut Medical Center Lymphocytes Auto (Bld) [#/Vol]Ordered By: Ute Griffin on 99-79-8605Xsrffdweaeq (Bld) [#/Vol]Lymphocytes [#/volume] in Blood by Automated count1.00-4.8[facility] HospitalLymphocytes/100 WBC Auto (Bld)Ordered By: Ute Griffin on 85-52-6961Liluaulsbvn/100 WBC (Bld)Lymphocytes/100 leukocytes in Blood by Automated count.[facility] HospitalMCH Auto (RBC) [Entitic mass] Ordered By: Ute Griffin on 45-25-4385LWD (RBC) [Entitic mass]MCH [Entitic mass] by Automated count24.7-34.3FUniversity Hospitals Conneaut Medical CenterMCHC Auto (RBC) [Mass/Vol]Ordered By: Ute Griffin on 85-96-0242DRZW (RBC) [Mass/Vol]MCHC [Mass/volume] by Automated count32.0-35.0[facility] HospitalMCV Auto (RBC) [Entitic vol]Ordered By: Ute Griffin on 07-75-3088PRA (RBC) [Entitic vol]MCV [Entitic volume] by Automated -742VxqwjethiHighland District HospitalMonocytes Auto (Bld) [#/Vol]Ordered By: Ute Griffin on 08-04-2024 Monocytes (Bld) [#/Vol]Automated blood monocyte count0.0-0.8[facility] HospitalMonocytes/100 WBC Auto (Bld)Ordered By: Ute Griffin on 08-04-2024 Monocytes/100 WBC (Bld)Automated monocyte %.[facility] Neutrophils Auto (Bld) [#/Vol]Ordered By: Ute Griffin on 14-45-3888Sbzmirmzvbf (Bld) [#/Vol]Neutrophils [#/volume] in Blood by Automated count1.8-7.7FUniversity Hospitals Conneaut Medical CenterNeutrophils/100 WBC Auto (Bld)Ordered By: Ute Griffin on 14-11-9272Qvcadouyibo/100 WBC (Bld)Automated neutrophil %.High[facility] District HospitalNucleated erythrocytes [Presence] in Blood by Automated count Ordered By: Ute Griffin on 64-14-3811Znukyfnmb RBC Auto Ql (Bld)Nucleated erythrocytes [Presence] in Blood by Automated count0-0.5FUniversity Hospitals Conneaut Medical CenterPlatelet mean volume Auto (Bld) [Entitic vol]Ordered By: Ute Griffin on 72-86-3788Tgncdulp mean volume (Bld) [Entitic vol]Platelet mean volume [Entitic volume] in Blood by Automated count6.3-10.7FUniversity Hospitals Conneaut Medical CenterPlatelets Auto (Bld) [#/Vol]Ordered By: Ute Griffin on 08-04-2024 Platelets (Bld) [#/Vol]Platelets [#/volume] in Blood by Automated -966 [facility] HospitalRBC Auto (Bld) [#/Vol]Ordered By: Ute Griffin on 98-64-4068ITN (Bld) [#/Vol]Erythrocytes [#/volume] in Blood by Automated countLow3.60-5.00University Hospitals Beachwood Medical Centererum or plasma iron binding capacity measurement (mass/volume)Ordered By: Ute Griffin on 47-10-5811Xgzi binding capacity [Mass/Vol]Iron binding capacity [Mass/volume] in Serum or Ipmjrw521-533ZetdjaseqUniversity Hospitals Beachwood Medical Centererum or plasma iron saturation measurement (mass fraction)Ordered By: Ute Griffin on 33-89-3609Dnxp saturation [Mass fraction]Iron saturation [Mass Fraction] in Serum or CymxywOiw23-31 [facility] HospitalTransferrin [Mass/volume] in Serum or Plasma Ordered By: Ute Griffin on 49-87-8670Qfgtzghbgcy [Mass/Vol]Transferrin [Mass/volume] in Serum or Xililx609-362TrbmqhjzfHighland District HospitalWBC Auto (Bld) [#/Vol]Ordered By: Ute Griffin on 25-76-7558YRC (Bld) [#/Vol]Leukocytes [#/volume] in Blood by Automated count3.8-11.6FUniversity Hospitals Conneaut Medical Center EDMUNDO with Reflexon 48-36-2453CIR with ReflexNegativeNormalNegativeThe [facility] Physician GroupComment on above:Result Comment: Performed at: - [address] [id number] Director Underwriter Sales: Adnres Arboleda PhD, Phone: [phone] PERFORMED BY: [place] [address] PATHOLOGIST QUALITY CONTROL INSPECTOR JALEN LEON M.D.Performed By: #### EDMUNDO CHOICE #### [facility] ,Serum or plasma free cefuroxime measurement (mass/volume)Ordered By: Fernanda Concepcion on 80-56-6716Dzdcnjbbyh free [Mass/Vol]Serum or plasma free cefuroxime measurement (mass/volume)NegativeHighland District HospitalComment on above:Performed at: - Labco[address] [id number] Director: Andres Arboleda PhD, Phone: [phone] thoracic spine 3V*on 40-71-0808NV thoracic spine 3V*[facility] [place] [address] XRay Report Signed Patient: Katy Banuelos MR#: [id number] : 1975 Acct:[id number] Age/Sex: 49 / F ADM Date: 07/22/24 Loc: XD Room: Type: [facility] Attending Dr: Fernanda Concepcion MD Copies to: [...] PROCESS. Impression dictated by: Freedom Mcmillan Jr., D.OJf07/22/2024 4:08 PM Dictation Location: [place] [address] Transcribed By: [facility] 07/22/24 1608 Dictated By: Freedom Mcmillan Jr, DO 07/22/247 Signed By: 07/22/24 1608[facility] Physician GroupUrinalysis macro (dipstick) panel (U)on 85-26-7255Wrtpzunsp, UANegativeNegative - 4(70) +++ mg/dLNOMS HealthcareBlood, UANegativeNegative - 50 Antelmo/mcLNOMS HealthcareClarity, UAClear NOMS HealthcareColor, UAYellowNOMS HealthcareGlucose, UANegativeNegative - 2000(110) ++++ mg/dLNOMS HealthcareInterpretation and review of laboratory resultsNormalNOMS HealthcareKetones, UANegativeNegative - 160(16) ++++ mg/dLNOMS HealthcareLeukocytes, UANegativeNegative - 500+++ Rubio/mcLNOMS Healthcare Nitrite, UANegativeNegative - PositiveNOMS HealthcarepH, UA75 - 9NOM[facility] Healthcare Protein, UANegativeNegative - 2000(20) ++++ mg/dLNOMS HealthcareSpec Grav, UA 1.0251 - 1.03NOMS HealthcareUrobilinogen, UA1.00.2 - 12 mg/dLNOMS HealthcareNOMS HealthcareHCG ( test) IA.rapid Ql (U)Ordered By: Spencer Valadez on 69-25-8386HQC ( test) Ql (U)NegativeHighland District Hospital HCG,Urineon 46-11-6132Kqau HCG ( test) Ql (U)NegativeOrlando Health Winnie Palmer [facility]ies Physician [facility] Of VicksburgComment on above:Result Comment: PERFORMED BY: [facility] [address] [place] [address] PATHOLOGIST QUALITY CONTROL INSPECTOR JALEN LEON M.D.Performed By: #### UHCG ####[facility] [address] [place] [address] USALon 01-19-8384AZhqesvgw: [id number] Received: 03/04/24 Status: TEJAL Sneed Num: [id number] Spec Type: Surgical Subm Dr: Spencer Valadez MD Tissues: A Duodenum - Biopsy (DUODENUM) B GASTRIC FOR HP (GASTRIC HP) C Colon Biopsy (HEPATIC FLEXURE POLYP) Procedures: HE/6, Gross/Micro L4/3, H PYLORI, IHC First AB Age/ Patient Sex Location Account Attending Physician MrakKaty K 49/F [id number] Spencer Valadez MD SPEC NUM: [id number] RECD: 03/04/24 STATUS: TEJAL SNEED NUM: [id number] TWIN: 03/04/24 DR: Spencer Valadez MD ENTERED: 03/04/[address] [facility] [address]: SPEC TYPE: Surgical DEPT: S ORDERED: [...] celiac and rule out H. pylori. Specimen: [id number] Received: 03/04/24 Status: TEJAL Sneed Num: [id number] Spec Type: Surgical Subm Dr: Spencer Valadez MD Tissues: A Duodenum - Biopsy (DUODENUM) B GASTRIC FOR HP (GASTRIC HP) C Colon Biopsy (HEPATIC FLEXURE POLYP) Procedures: HE/6, Gross/Micro L4/3, H PYLORI, IHC First AB Patient: Katy Banuelos [id number] (Continued) Specimen: [id number] Received: 03/04/24 (Continued) Signed (signature on file) Jorge Albrecht MD 03/06/24 1548 Specimen: [id number] Received: 03/04/24 Status: TEJAL Sneed Num: [id number] Spec Type: Surgical Subm Dr: Spencer Valadez MD Tissues: A Duodenum - Biopsy (DUODENUM) B GASTRIC FOR HP (GASTRIC HP) C Colon Biopsy (HEPATIC FLEXURE POLYP) Procedures: HE/6, Gross/Micro L4/3, H PYLORI, IHC First AB Patient: MorisKaty desai Elena [id number] (Continued) Specimen: [id number] Received: 03/04/24-1134 (Continued) Gross Description Received are 3 formalin [...] x 0.1 cm, entirely submitted in C1. [facility] Codes 73089 X.3 42563 Specimen: [id number] Received: 03/04/24 Status: TEJAL Sneed Num: [id number] Spec Type: Surgical Subm Dr: Spencer Valadez MD Tissues: A Duodenum - Biopsy (DUODENUM) B GASTRIC FOR HP (GASTRIC HP) C Colon Biopsy (HEPATIC FLEXURE POLYP) Procedures: HE/6, Gross/Micro L4/3, H PYLORI, IHC First AB Patient: ChadmandyKaty desai [id number] (Continued) Signed (signature on file) Jorge Albrecht MD 03/06/24 1548NoCarteret Health Care Physician GroupHeart and Vascular Office/Clinic Noteon 57-13-3948Uaiun and Vascular Office/Clinic NoteChief Complaint vascular patient here to establish care History of Present Illness Katy Yoderjcnuzhat is a 68-jyuyg-eqt female presents to the office to establish [...] 2022, she underwent an echocardiogram at [facility], which yielded normal results. Additionally, she underwent [...] suffered a stroke, but prior to that hehad mini strokes. Her son has Raynaud's phenomenon. [...] ESR. A carotid ultrasound will be performed toevaluate for potential blockages. The patient is advised to monitor her blood pressure for a duration of 24 hours. Portions of this record may have been created with voice recognition artificial intelligence software, specifically [employer]vanDx, FlowPlay and or JOOR. Substitutions may have occurred due to the inherent limitations of voice recognition and artificial intelligence software. ATTESTATION: Documentation services were performed after patient or guardian consented to allow [employer] to record this visit. CASEY eap specialist and provider reviewed before signing. CASEY: [...] Previous treatment: None. Alc (more content not included)...[facility] Reserve HospitalComment on above:Result Comment: Electronically Signed By: Sandy DELEON, Girma Dawson\.br\Date and Time Signed: 02/18/24 10:07 EDT\.br\Electronically Co-Signed By: Diane Wilks\.br\Date and Time Co-Signed: 01/30/24 17:05 EDTCHEMISTRYOrdered By: SYSTEM SYSTEM on 68-39-8400Cyuyrpu [Mass/Vol]4.3 g/dLNormal3.3 - 5.0 gm/dLRemisol Chem Albumin/Globulin [Mass ratio]2.2 {ratio}Normal1.1 - 2.2Remisol ChemALP [Catalytic activity/Vol]55 [iU]/uXiedcm76 - 98 Int._Unit/LRemisol ChemALT No additional P-5'-P [Catalytic activity/Vol]11 [iU]/dNormal6 - 46 Int._Unit/L Remisol ChemAnion gap [Moles/Vol]8 mmol/LNormal6 - 16 mEq/LRemisol ChemAST [Catalytic activity/Vol]17 [iU]/dNormal5 - 43 Int._Unit/LRemisol ChemBilirubin [Mass/Vol]0.7 mg/dLNormal0.0 - 1.1 mg/dLRemisol ChemCalcium [Mass/Vol]8.8 mg/dL Low8.9 - 11.1 mg/dLRemisol ChemChloride [Moles/Vol]105 mmol/SHngqyq255 - 111 mmol/LRemisol ChemCholesterol [Mass/Vol]166 mg/rMPdvpxt500 - 200 mg/dLRemisol ChemCholesterol in HDL [Mass/Vol]62 mg/dLInvalid Interpretation CodeRemisol Chem Comment on above:Result Comment: '>= 60 LOW RISK' '<= 40 HIGH RISK'Cholesterol in LDL [Mass/Vol]103 mg/dLNormal<=129mg/dLRemisol ChemCholesterol in VLDL [Mass/Vol]9 mg/dLNormal7 - 40 mg/dLRemisol ChemCO2 [Moles/Vol]29 mmol/LZuhfsn03 - 31 mmol/LRemisol ChemCreatinine [Mass/Vol]0.7 mg/dLNormal0.5 - 1.3 mg/dLRemisol ChemCRP [Mass/Vol]mg/dLNormal<=1.9mg/dLRemisol WxoyxGPS556 mL/min/1.73 h5Xozzwx>=59mL/min/1.73 p9Kxycpeh ChemGlobulin (S) [Mass/Vol]2.0 g/dLNormal1.4 - 4.0 gm/dLRemisol ChemGlucose [Mass/Vol]85 mg/dL Ihcybp72 - 199 mg/dLRemisol ChemPotassium [Moles/Vol]4.2 mmol/LNormal3.5 - 5.3 mmol/LRemisol ChemProtein [Mass/Vol]6.3 g/dLNormal6.0 - 7.8 gm/dLRemisol Chem Sodium [Moles/Vol]138 mmol/XZpsjmv891 - 145 mmol/LRemisol ChemTriglyceride [Mass/Vol]46 mg/dLNormal<=149mg/dLRemisol ChemUrea nitrogen [Mass/Vol]13 mg/dL Normal5 - 21 mg/dLRemisol ChemUrea nitrogen/Creatinine [Mass ratio]19 mg/mg Bknxjk57 - 20Remisol ChemCMPon 29-49-9220Jugsqyf [Mass/Vol]4.3 g/dLNormal3.3-5.0 [facility] HospitalComment on above:Performed By: #### [id number] #### [facility] [address], [place] [address]Awreftx/Globulin (S) [Mass conc ratio]2.5Scgmha9.1-2.2FHolzer HospitalComment on above:Performed By: #### [id number] #### [facility] [address], [place] [address]PQX [Catalytic activity/Vol]55 Int._Unit/KUvnhrl66-96WnfojxSelect Medical Trihealth Rehabilitation HospitalComment on above:Performed By: #### [id number] #### [facility] [address], [place] [address]GZI No additional P-5'-P [Catalytic activity/Vol]11 Int._Unit/L Normal6-46[facility] HospitalComment on above:Performed By: #### [id number] #### [facility] [address], [place] [address]Nsnwh gap [Moles/Vol]8 mmol/LNormal6-16[facility] HospitalComment on above:Performed By: #### [id number] #### [facility] [address], [place] [address]EGP [Catalytic activity/Vol]17 Int._Unit/LNormal5-43[facility] HospitalComment on above:Performed By: #### [id number] #### [facility] [address], [place] [address]Eyqsgqwkk [Mass/Vol]0.7 mg/dLNormal0.0-1.1FHolzer HospitalComment on above:Performed By: #### [id number] #### [facility] [address], [place] [address]Fshksyh [Mass/Vol]8.8 mg/dLLow8.9-11.1FHolzer HospitalComment on above:Performed By: #### [id number] #### [facility] [address], [place] [address]Mjovaden [Moles/Vol]105 mmol/BOfiecc761-663VoibkmSelect Medical Trihealth Rehabilitation HospitalComment on above:Performed By: #### [id number] #### [facility] [address], [place] [address]DS8 [Moles/Vol]29 mmol/FRkowzi91-25JewedrSelect Medical Trihealth Rehabilitation Hospital Comment on above:Performed By: #### [id number] #### [facility] [address], [place] [address]Hybhwgyoij [Mass/Vol]0.7 mg/dLNormal0.5-1.3FHolzer HospitalComment on above:Performed By: #### [id number] #### [facility] [address], [place] [address]Hcvnlabl (S) [Mass/Vol]2.0 g/dLNormal1.4-4.0[facility] HospitalComment on above:Performed By: #### [id number] #### [facility] [address], [place] [address]Ynuwgld [Mass/Vol]85 mg/bBVlzqtw06-594GcddueSelect Medical Trihealth Rehabilitation HospitalComment on above:Performed By: #### [id number] #### [facility] [address], [place] [address]Jwxqkidaf [Moles/Vol]4.2 mmol/LNormal3.5-5.3FHolzer HospitalComment on above:Performed By: #### [id number] #### [facility] [address], [place] [address]Tbtazte [Mass/Vol]6.3 g/dLNormal6.0-7.8[facility] HospitalComment on above:Performed By: #### [id number] #### [facility] [address] [place] [address]Hnowqd [Moles/Vol]138 mmol/URmeycj904-513UtcvivSelect Medical Trihealth Rehabilitation HospitalComment on above:Performed By: #### [id number] #### [facility] [address] [place] [address]Ynmo nitrogen [Mass/Vol]13 mg/dLNormal5-21[facility] HospitalComment on above:Performed By: #### [id number] #### [facility] [address] [place] [address]Udwd nitrogen/Creatinine [Mass ratio]19 No ExmmaHyrnnp46-87 [facility] HospitalComment on above:Performed By: #### [id number] #### [facility] [address], [place] [address]RTEeo 59-18-0345AVX [Mass/Vol]mg/LNormal<=1.9[facility] HospitalComment on above:Performed By: #### [id number] #### [facility] [address] [place] [address]Achlxlc for Treatmenton 73-88-1305Kqokiwq for Treatment [id number]#1.00TIFFNormalSelect Medical Trihealth Rehabilitation HospitalHEMATOLOGYOrdered By: Kelly Dutton on 33-32-1552BMF (Bld) [Velocity]3 mm/hNormal0 - 34 mm/hrFTMC HemeAutoSSLipid Panelon 73-12-7631Wnlxnlujzak [Mass/Vol]166 mg/rYVjcxsv191-064ZjsmjuSelect Medical Trihealth Rehabilitation HospitalComment on above: Performed By: #### [id number] #### [facility] [address], [place] [address]Zkhxobynmwj in HDL [Mass/Vol]62 mg/dLInvalid Interpretation CodeSelect Medical Trihealth Rehabilitation HospitalComment on above:Result Comment: '>= 60 LOW RISK' '<= 40 HIGH RISK'Performed By: #### [id number] #### [facility] [address], [place] [address]Ttevyvtuebb in LDL [Mass/Vol]103 mg/dLNormal<=129[facility] HospitalComment on above:Performed By: #### [id number] #### [facility] [address], [place] [address]Djjmpklhydn in VLDL [Mass/Vol]9 mg/dLNormal7-40[facility] HospitalComment on above:Performed By: #### [id number] #### [facility] [address], [place] [address]Pdqfnqlxmnle [Mass/Vol]46 mg/dLNormal<=149[facility] HospitalComment on above:Performed By: #### [id number] #### [facility] [address], [place] [address]Fuo Rate Automatedon 78-97-6999PUB (Bld) [Velocity]3 mm/hNormal 0-34[facility] HospitalComment on above:Performed By: #### [id number] #### [facility] [address], [place] [address]FF Carotid Duplex Bilateralon 29-83-6932RZ Carotid Duplex BilateralExam Date/Time: 02/06/2024 12:20 EDT Reason for Exam: [...] Carotid Diagnostic Criteria Committee. Vascular Medicine 2020; https://journals.Total Nutraceutical Solutionspub.com/doi/full/10.1177/4293826C821422606 Ordering Provider: Girma Delgado FINAL REPORT Dictated: 02/06/2024 4:04 pm Crystal Goncalves Signed (Electronic Signature): 02/06/2024 4:04 pm Signed by: Crystal Goncalves Transcribed by: MARKUS Technologist: MAUREEN Technical Comments Velocities Right Vert. Antegrade Yes Velocities Left Vert. Antegrade YesNormalSelect Medical Trihealth Rehabilitation HospitaleGFRon 12-24-5508vHYT769 mL/min/1.73 b4Gvqxya>=59[facility] HospitalComment on above:Order Comment: Order added by Discern Expert.Performed By: #### [id number] #### [facility] [address], [place] [address]Iiysboe 82-12-7469Akzlz [id number]#1.00[facility] ToledoConsent for Treatmenton 35-07-2642Omlznzi for Treatment [id number]#1.00[facility] ToledoOutside Recordson 09-69-6904Srukrnn Records [id number]#1.00[facility] ToledoPhysician Orderon 43-04-1024Zvwyhuacx Order [id number]#1.00[facility] ToledoEchocardiographyon 46-20-3212Dzpydtbtmsaqrrhu [id number]#1.00[facility] ToledoOutside Radiologyon 62-06-4391Emkrapx Radiology [id number]#1.00[facility] ToledoReferrals Officeon 11-44-3743Vtdydqczq Office [id number]#1.00[facility] ToledoReferrals [id number]#1.00[facility] Osteopathic ClinicIgA [Mass/volume] in Serum or PlasmaOrdered By: Candelario Johansen on 92-57-7934XqW [Mass/Vol]125 mg/fW84-482Lcxwrcqnx[address] [place], [place] [address]Comment on above:Performed at: - Labco[address] [id number] Director: Andres Arboleda PhD, Phone: [phone] Panel InformationOrdered By: Candelario Johansen on 15-11-3958Jlbebopahn IgA Antibody NegativeNegativeUniversity Hospitals Beachwood Medical Centererum gliadin peptide IgA antibody assay (units/volume)Ordered By: Candelario Johansen on 08-61-1719Emeqxcl peptide IgA Qn (S)8 units0-[facility] HospitalComment on above: Negative 0 - 19 Weak Positive 20 - 30 Moderate to Strong Positive >30Serum gliadin peptide IgG antibody assay (units/volume)Ordered By: Candelario Johansen on 21-51-2815Nuevfoc peptide IgG Qn (S)5 units0-[facility] Comment on above:Negative 0 - 19 Weak Positive 20 - 30 Moderate to Strong Positive >30Serum tissue transglutaminase (tTG) IgA antibody assay (units/volume)Ordered By: Candelario Johansen on 53-66-5523pIE IgA Qn (S)<2 U/mL0-3 [facility] HospitalComment on above:Negative 0 - 3 Weak Positive 4 - 10 Positive >10 Tissue Transglutaminase (tTG) has been identified as the endomysial antigen. Studies have demonstr- ated that endomysial IgA antibodies have over 99% specificity for gluten sensitive enteropathy.Serum tissue transglutaminase (tTG) IgG antibody assay (units/volume)Ordered By: Candelario Johansen on 97-35-6512mUQ IgG Qn (S)5 U/mL0-5FUniversity Hospitals Conneaut Medical Center Comment on above:Negative 0 - 5 Weak Positive 6 - 9 Positive >9Thyrotropin [Units/volume] in Serum or PlasmaOrdered By: Candelario Johansen on 56-03-9191DER Qn 0.60 m[IU]/L0.45-5.33[facility] HospitalAFB cultureOrdered By: Marta Hernandez on 09-94-8089Ziafifytsbynx sp identified Org specific cx Nom (Unsp spec)[facility] HospitalFungal cultureOrdered By: Marta Hernandez on 92-19-6211Vxeiii identified Cx Nom (Unsp spec)[facility] HospitalFungus # 2 identified in Unspecified specimen by CultureOrdered By: Marta Hernandez on 61-62-3071Ghwbur identified # 2 Cx Nom (Unsp spec)N/[facility] HospitalFungus # 3 identified in Unspecified specimen by Culture Ordered By: Marta Varmack on 27-26-2790Ufahzc identified # 3 Cx Nom (Unsp spec) [facility] CenterFungus # 4 identified in Unspecified specimen by CultureOrdered By: Marta Hernandez on 42-80-9702Kegwkp identified # 4 Cx Nom (Unsp spec)[facility] CenterGram stain for investigation of transfusion reactionOrdered By: Marta Hernandez on 09-14-2023 Microscopic observation Gram stain Nom (Unsp spec)Haemophilus influenzae [facility] HospitalMicroscopic observation Gram stain Nom (Unsp spec)Haemophilus influenzaeHighland District HospitalNo Panel Information Ordered By: Marta Hernandez on 18-46-0450Bshkwwjp SusceptibilityN/[facility] HospitalXR hand RT min 3V*on 16-68-5509FL hand RT min 3V* [facility] [employer] Other XR hand RT min 3V*[facility] [employer] Other XR hand RT min 3V*[address] [place] [address] [employer] Experience Other XR hand RT min 3V*[place] [address]LdqejMulticare Health [employer] Other XR hand RT min 3V*XRWilliamson Medical Center [employer] Other XR hand RT min 3V*[facility] Erly Other XR hand RT min 3V*Patient: Katy Banuelos MR#: [id number] Erly Other XR hand RT min 3V*[id number] Erly Other XR hand RT min 3V*: 1975 Acct:[id number] Erly Other XR hand RT min 3V*Age/Sex: 48 / F ADM Date: 09/04/23 [place] [facility] Other XR hand RT min 3V*Loc: SOXD Room: Type: [facility] Erly Other XR hand RT min 3V*Attending Dr: Prashant Mitchell [facility] Erly Other XR hand RT min 3V*Copies to: Prashant Mitchell, [facility] HospitalElectro Power Systems Other XR hand RT min 3V*Ordering Provider: Prashant Mitchell [place] Other XR hand RT min 3V*Date of Service: 09/04/23[place] [facility] Other XR hand RT min 3V* XR/XR hand RT min 3V*: Right hand painBarnes-Jewish West County HospitalTengrade Other XR hand RT min 3V*XR hand RT min 3V* 09/04/2023 8:17 [facility] Erly Other XR hand RT min 3V*SIGNS AND SYMPTOMS: Hyperextension injury to right thumbTyaskin Erly Other XR hand RT min 3V*PROTOCOL: Frontal, lateral, and oblique radiographs of the right handBarnes-Jewish West County HospitalTengrade Other XR hand RT min 3V*COMPARISON: [facility] Erly Other XR hand RT min 3V*FINDINGS:[employer] Other XR hand RT min 3V*The bones are in anatomic alignment. The joint spaces are preserved. There is no evidence ofTyaskin Erly Other XR hand RT min 3V*fracture or dislocation. No significant soft tissue swelling.[employer] Other XR hand RT min 3V* XR/XR hand RT min 3V*[employer] Other XR hand RT min 3V*IMPRESSION:[employer] Other XR hand RT min 3V*No acute bony injury.[employer] Other XR hand RT min 3V*No significant soft tissue swelling. [employer] Other XR hand RT min 3V*Impression dictated by: Jermain Sultana M.D.09/04/2023 10:15 [facility] Erly Other XR hand RT min 3V*Dictation Location: XCLTT-DW-12Lyqav Erly Other XR hand RT min 3V*Transcribed By: [facility] 09/04/23 1015 [employer] Other XR hand RT min 3V*Dictated By: Jermain Sultana II, MD 09/04/[address] [place] [address] Erly Other XR hand RT min 3V*Signed By:[employer] Other XR hand RT min 3V*09/04/[address] [place] [address] Erly Other Plan of Care - PT/OT/Speechon 43-53-4153Like of Care - PT/OT/[id number]#1.00TIFF[address] John Medical CenterAlanine aminotransferase [Enzymatic activity/volume] in Serum or PlasmaOrdered By: Fernanda Concepcion on 72-68-9878JQZ [Catalytic activity/Vol]18 U/L 7-52[facility] HospitalAlbumin [Mass/volume] in Serum or Plasma by Bromocresol green (BCG) dye binding methoOrdered By: Fernanda Concepcion on 05-25-2023 Albumin BCG dye [Mass/Vol]4.7 g/dL3.5-5.7FUniversity Hospitals Conneaut Medical Center Alkaline phosphatase [Enzymatic activity/volume] in Serum or PlasmaOrdered By: Fernanda Concepcion on 96-18-3678ZNJ [Catalytic activity/Vol]51 U/O39-258EtfxtmrrsHighland District HospitalAspartate aminotransferase [Enzymatic activity/volume] in Serum or PlasmaOrdered By: Fernanda Concepcion on 39-67-7593RTP [Catalytic activity/Vol]20 U/Z94-50DittlmxtbHighland District HospitalBasophils Auto (Bld) [#/Vol]Ordered By: Fernanda Concepcion on 03-11-5245Rqqzppxsy (Bld) [#/Vol]0.1 10*3/uL 0.0-0.2FUniversity Hospitals Conneaut Medical CenterBasophils/100 WBC Auto (Bld)Ordered By: Fernanda Concepcion on 24-03-6760Ghrtloysi/100 WBC (Bld)1.1 %.[facility] HospitalBilirubin.total [Mass/volume] in Serum or PlasmaOrdered By: Fernanda Concepcion on 56-61-5761Wzybujjvw [Mass/Vol]0.5 mg/dL0.3-1.0[facility] HospitalCalcium [Mass/volume] in Serum or PlasmaOrdered By: Fernanda Concepcion on 46-10-6090Lhrukwn [Mass/Vol]9.3 mg/dL8.6-10.3FUniversity Hospitals Conneaut Medical CenterCarbon dioxide, total [Moles/volume] in Serum or PlasmaOrdered By: Fernanda Concepcion on 71-58-4135VK9 [Moles/Vol]31.4 mmol/L21.0-31.0[facility] HospitalChloride [Moles/volume] in Serum or PlasmaOrdered By: Fernanda Concepcion on 14-99-0319Povkkxcu [Moles/Vol]103 mmol/H68-632TlcsudrsmHighland District Hospital Creatinine [Mass/volume] in Serum or PlasmaOrdered By: Fernanda Concepcion on 49-56-8680Fsosdnfgik [Mass/Vol]0.70 mg/dL0.60-1.20[facility] HospitalEosinophils Auto (Bld) [#/Vol]Ordered By: Fernanda Concepcion on 05-25-2023 Eosinophils (Bld) [#/Vol]0.1 10*3/uL0.0-0.45[facility] Eosinophils/100 WBC Auto (Bld)Ordered By: Fernanda Concepcion on 05-25-2023 Eosinophils/100 WBC (Bld)0.7 %.[facility] HospitalErythrocyte distribution width Auto (RBC) [Ratio]Ordered By: Fernanda Concepcion on 05-25-2023 Erythrocyte distribution width (RBC) [Ratio]13.3 %11.9-15.3FUniversity Hospitals Conneaut Medical CenterGlobulin Calc (S) [Mass/Vol]Ordered By: Fernanda Concepcion on 05-25-2023 Globulin (S) [Mass/Vol]1.7 g/dLHighland District HospitalGlucose [Mass/volume] in Serum or PlasmaOrdered By: Fernanda Concepcion on 34-32-7796Niydbjp [Mass/Vol]104 mg/yV24-925FhbpqobvxHighland District HospitalComment on above:ADA recommended reference rangeRandom Glucose Reference Range is dependent on time and content of last meal. Glucose of more than 200 mg/dL in a nonstressed, ambulatory subject supports the diagnosisof Diabetes Mellitus.Hematocrit Auto (Bld) [Volume fraction]Ordered By: Fernanda Concepcion on 39-97-6891Anxmvnpleb (Bld) [Volume fraction]39.3 %34.0-46.4FUniversity Hospitals Conneaut Medical CenterHemoglobin [Mass/volume] in BloodOrdered By: Fernanda Concepcion on 72-61-2767Hjhxrpmrls (Bld) [Mass/Vol]13.5 g/dL11.8-15.4FUniversity Hospitals Conneaut Medical CenterLeukocytes [#/volume] corrected for nucleated erythrocytes in Blood by Automated coun Ordered By: Fernanda Concepcion on 99-69-1780KDB corrected for nucl RBC Auto (Bld) [#/Vol]8.2 10*3/uL3.8-11.6FUniversity Hospitals Conneaut Medical CenterLymphocytes Auto (Bld) [#/Vol]Ordered By: Fernanda Concepcion on 95-95-2783Fixpwjaxfqo (Bld) [#/Vol]1.7 10*3/uL1.00-4.8[facility] HospitalLymphocytes/100 WBC Auto (Bld) Ordered By: Fernanda Concepcion on 46-81-5380Dlfhmevibfz/100 WBC (Bld)20.5 %.[facility] Auto (RBC) [Entitic mass]Ordered By: Fernanda Concepcion on 37-66-6492FPT (RBC) [Entitic mass]35.3 pg24.7-34.3[facility] CenterMCHC Auto (RBC) [Mass/Vol]Ordered By: Fernanda Concepcion on 55-26-0398LLQO (RBC) [Mass/Vol]34.4 g/dL32.0-35.0[facility] HospitalMCV Auto (RBC) [Entitic vol]Ordered By: Fernanda Concepcion on 91-17-8114MKO (RBC) [Entitic vol]102.7 iR43-413FlcxjuwefHighland District HospitalMonocytes Auto (Bld) [#/Vol]Ordered By: Fernanda Concepcion on 96-47-2495Loakyfeqx (Bld) [#/Vol]0.4 10*3/uL0.0-0.8[facility] HospitalMonocytes/100 WBC Auto (Bld)Ordered By: Fernanda Concepcion on 36-52-9688Krmjqwywn/100 WBC (Bld)4.8 %.[facility] Neutrophils Auto (Bld) [#/Vol]Ordered By: Fernanda Concepcion on 04-50-7872Jcvenzhrscv (Bld) [#/Vol]6.0 10*3/uL1.8-7.7FUniversity Hospitals Conneaut Medical CenterNeutrophils/100 WBC Auto (Bld)Ordered By: Fernanda Concepcion on 23-33-6771Amloifkybse/100 WBC (Bld) 72.9 %.[facility] HospitalNo Panel InformationOrdered By: Fernanda Concepcion on 20-71-4537Gfmnyvfje GFR (CKD-EPI)> 60.0 mL/MinHighland District HospitalPharmacy Creatinine Clearance (ChemN/AFUniversity Hospitals Conneaut Medical CenterNucleated erythrocytes [Presence] in Blood by Automated countOrdered By: Fernanda Concepcion on 53-99-2380Lfhfxgkcw RBC Auto Ql (Bld)0.0 /100{WBC}0-0.5FUniversity Hospitals Conneaut Medical CenterPlatelet mean volume Auto (Bld) [Entitic vol]Ordered By: Fernanda Concepcion on 59-45-5524Zghezwvd mean volume (Bld) [Entitic vol]7.8 fL6.3-10.7 [facility] HospitalPlatelets Auto (Bld) [#/Vol]Ordered By: Fernanda Concepcion on 60-87-6873Yktpyvlsr (Bld) [#/Vol]244 10*3/yO044-543LmpurdnlqHighland District HospitalPotassium [Moles/volume] in Serum or PlasmaOrdered By: Fernanda Concepcion on 35-81-6987Kxlpzcfdh [Moles/Vol]3.6 mmol/L3.5-5.1FUniversity Hospitals Conneaut Medical CenterProtein [Mass/volume] in Serum or PlasmaOrdered By: Fernanda Concepcion on 62-89-3266Zudqkeu [Mass/Vol]6.4 g/dL6.4-8.9[facility] RBC Auto (Bld) [#/Vol]Ordered By: Fernanda Concepcion on 90-73-3119VFQ (Bld) [#/Vol] 3.83 10*6/uL3.60-5.00[facility] Medical Centererum or plasma albumin/globulin mass ratioOrdered By: Fernanda Concepcion on 05-25-2023 Albumin/Globulin [Mass ratio]2.8 {ratio}[facility] Medical Centererum or plasma anion gap determinationOrdered By: Fernanda Concepcion on 66-58-7516Uwtyq gap [Moles/Vol]8.2 mmol/L6.0-15.0[facility] Medical Centerodium [Moles/volume] in Serum or PlasmaOrdered By: Fernanda Concepcion on 17-99-3710Gqxxzn [Moles/Vol]139 mmol/H983-622EcwabolxgHighland District HospitalThyrotropin [Units/volume] in Serum or PlasmaOrdered By: Fernanda Concepcion on 41-50-1307IWK Qn 0.35 m[IU]/L0.45-5.33[facility] HospitalUrea nitrogen [Mass/volume] in Serum or PlasmaOrdered By: Fernanda Concepcion on 84-09-6446Ejtq nitrogen [Mass/Vol]10 mg/dL7-25High[facility] HospitalWBC Auto (Bld) [#/Vol]Ordered By: Fernanda Concepcion on 06-92-4035PQK (Bld) [#/Vol]8.2 10*3/uL 3.8-11.6FUniversity Hospitals Conneaut Medical CenterAmbulatory Visit Summaryon 05-16-2023 Ambulatory Visit Summary KATY BANUELOS :1975 Visit Date:05/16/2023 Ambulatory Visit Instructions Your Diagnosis Mixed incontinence Smoker Tests Performed Urnls Dip Stick Auto w/o Microscopy POC 49135 Your Care Team Attending Physician - GIANNA [...] With: GIANNA KAPLAN PA-C Where: [facility] Interpretation [id number] [place] [place] [address]- [phone]\.br\ Sunday 9:30 AM EDT \.br\ With: GIANNA KAPLAN PA-C\.br\ Where: [facility] Educationon 68-98-0224Gbgzumu EducationObstetrics and Gynecology Kegel Exercises Kegel exercises can help strengthen [...] provider. Document Revised: 01/12/2022 Document Reviewed: 01/12/2022 [employer] Patient Education ? 2022 [employer] Pulmonary Medicine Steps to Quit Smoking [...] regularly. Even short sessi (more content not included)...[facility] Urology Office/Clinic Noteon 96-13-0981Krhyqxs Office/Clinic NoteChief Complaint #3 PFPT HPI Staff Pt is [...] reps with just the vaginal probe. When engagingthe lower abdominals she was able to do a fair pelvic contraction and hold it about 5-7 seconds. When I would health care coach her to not use the lower abs, she was unable to contract only the pelvic floor. Says it hurts when she does that. Ordered: 89633 EMG anal/urethral sphincter no needle 19671 Biofeedback training, perineal muscles, anorectal 85564 Anorectal Manometry 67377 ELECTRICAL STIMULATION 54327 Urnls Dip Stick Auto w/o Microscopy POC 62444 2. Pelvic pain (R10.2: Pelvic and perineal pain) Pt requested rx for Ibuprofen 800mg as she has been taking 4 ibuprofen 200mg's at a time to help w pelvic pain. was sent to [facility] today for pain. Discussed the [...] dairy and this makes the problem worse. Iexplained the Detrol can also contribute to constipation. [...] milk, # 30 tab(s), Refills(s) 3, Pharmacy: [facility]/pharmacy #[id number], 168, cm, 05/16/23 [...] going to reach out to [facility] PFPT and see if they would feel comfortable seeing this pt/have other approach. Will stop the Detrol for now so we have more of a 'clean slate'. Hoping if we can get the constipation under control and the pelvic floor strengthened then the pain and urinary sx will improve. F/u pending discussion w [facility] PFPT. Follow-up With When Contact Information GIANNA KAPLAN PA-C, URL [address] [place] [place] [address] [phone] Patient Education Steps to Quit Smoking Kegel Exercises Documentation recorded by the emery Lara accurately reflects the services(s) I performed anddecisions made by me. Authenticated by Gianna Kaplan PA-C on 05/16/2023 11:22:46. Shy James, personally scribed for Gianna Kaplan PA-C on 05/16/2023 10:24:59. . Problem List/Past Medical History Ongoing Difficulty voiding Feeling of incomplete bladder emptying Mixed incontinence Postinfective urethral stricture in female Smoker Historical Incomplete bladder emptying Urinary retention P (more content not included)...[facility] HospitalComment on above:Result Comment: Electronically Signed By: GIANNA KAPLAN PA-C\.br\Date and Time Signed: 05/16/2311:34 EDT\.br\Electronically Co-Signed By: Shy Lara\.br\Date and Time Co-Signed: 05/16/23 10:27 EDTPatient Educationon 05-09-[address] John Medical CenterEMG Electromyographyon 73-34-1462ZLV Electromyography [id number]#1.00CD:127NoUniversity Hospitals St. John Medical CenterAmbulatory Visit Summaryon 19-74-8110Ymjgedybwh Visit Summary KATY BANUELOS :1975 Visit Date:05/02/2023 Ambulatory Visit Instructions Your Diagnosis Mixed incontinence Smoker Tests Performed Urnls Dip Stick Auto w/o Microscopy POC 55299 Your Care Team Attending Physician - GIANNA [...] With: GIANNA KAPLAN PA-C [facility] [id number] [place] [address] \.br\ Sunday 9:30 AM EDT \.br\ With: GIANNA KAPLAN PA-C\.br\ Where: [facility] Educationon 33-52-5126Rhzeytl EducationObstetrics and Gynecology Kegel Exercises Kegel exercises can help strengthen [...] provider. Document Revised: 01/12/2022 Document Reviewed: 01/12/2022 [employer] Patient Education ? 2022 [employer]. Urology Urinary Incontinence Urinary incontinence refers to [...] your kidney and bladder (more content not included)...NormalSelect Medical Trihealth Rehabilitation HospitalUrology Office/Clinic Noteon 95-19-2320Slkacdw Office/Clinic NoteChief Complaint #2 PFPT HPI Staff Pt is here for PFPT #2 have you been consistent with your home exercises this week? somewhat, having suprapubic pain when doing exercises have you noticed any worsening in your symptoms this week? yes, the changes noted are: more leakageand pain have you noticed any improvement in [...] leakage and has new pelvic pain/soreness. Sx starteda few days after starting the exercises and [...] discussed previously. Follow-up With When Contact Information GIANNA KAPLAN PA-C, URL [address] [place] [address] [phone] Additional Instructions: PFPT #3 on 05/09/23 Patient Education Kegel Exercises Urinary Incontinence Documentation recorded by the emery Lara accurately reflects the services(s) I performed anddecisions made by me. Authenticated by Gianna Kaplan PA-C on 05/02/2023 11:20:16. IShy, personally scribed for Gianna Kaplan PA-C [...] Dipstick: Negative (05/02/23 10:46:00) (more content not included)...[facility] HospitalComment on above:Result Comment: Electronically Signed By: GIANNA KAPLAN PA-C\.br\Date and Time Signed: 05/02/2311:20 EDT\.br\Electronically Co-Signed By: Shy Lara\.br\Date and Time Co-Signed: 05/02/23 11:10 EDTConsent for Procedure/Surgeryon 04-26-2023 Consent for Procedure/[id number]#1.00CD:127 [facility] HospitalEMG Electromyographyon 94-39-3060FUU [id number]#1.00CD:127NormVeterans Health AdministrationAmbulatory Visit Summaryon 09-34-3073Phrvjgirjd Visit Summary CHADKATY GARCIA Elena :1975 Visit Date:04/25/2023 Ambulatory Visit Instructions Your Diagnosis Mixed incontinence Smoker Tests Performed Urnls Dip Stick Auto w/o Microscopy POC 42155 Your Care Team Attending Physician - GIANNA [...] GIANNA KAPLAN PA-C Where: [facility] Interpretation [id number] [place] [address] \.br\ Sunday 9:30 AM EDT \.br\ With: GIANNA KAPLAN PA-C\.br\ Where: [facility] 38-24-5470Rmqrkjj EducationUrology Pelvic Floor Dysfunction, Female Pelvic floor dysfunction [...] how tight your pelvic floor muscles are sothat you can learn to control them. ? Internal or external massage therapy. ? A treatment that involves electrical stimulation of the pelvic floor muscles to help control pain(transcutaneous electrical nerve stimulation, or TENS). ? Sound [...] pelvic muscle tension or spasms. ? Take albx-cjv-ahleeqg and prescription medicines only as told by [...] in 3 days (constipa (more content not included)...NormalFisher [facility]pmc Western MarylandUrology Office/Clinic Noteon 90-34-5962Wmukztr Office/Clinic NoteChief Complaint #1 PFPT HPI Staff Pt is [...] cessation discussed/encouraged. Follow-up With When Contact Information EJ ELLIS, GIANNA Jimenez, URL [address] [place] [address] [phone] Additional Instructions: PFPT #2 on 05/02/23 Patient Education Pelvic Floor Dysfunction, Female Documentation recorded by the emery Lara accurately reflects the services(s) I performed anddecisions made by me. Authenticated by Gianna Kaplan [...] (04/25/23 09:53:00) Specific Grav (more content not included)...[facility] Comment on above:Result Comment: Electronically Signed By: GIANNA KAPLAN PA-C\.br\Date and Time Signed: 04/25/2310:25 EDT\.br\Electronically Co-Signed By: Shy Lara\.br\Date and Time Co-Signed: 04/25/23 10:22 EDTVIT D 1 25 DIHYDROXYon 43-54-8109Xhulipmpcl(1,25 di-[place] Vit D)55.9 pg/tWXgoihn39.8-81.5The [facility] Medical CenterComment on above:Performed By: #### [id number] #### [facility] [address] [place] [address] Dr. Barbra Vallejo 40-37-4235OJM1.7 mIU/mLNormalLima City HospitalComment on above:Result Comment: Adult Female: Follicular phase 3.5 - 12.5 Ovulation phase 4.7 - 21.5 Luteal phase 1.7 - 7.7 Postmenopausal 25.8 - 134.8Performed By: #### LBCFSH #### [facility] [address] [place] [address] Dr. Barbra AlbrechtLUTEINIZING HORMONE (LH)on 45-53-6596JY6.6 mIU/mLNormalLima City HospitalComment on above:Result Comment: Adult Female: Follicular phase 2.4 - 12.6 Ovulation phase 14.0 - 95.6 Luteal phase 1.0 - 11.4 Postmenopausal 7.7 - 58.5Performed By: #### FERR, FETIBC, VITB12 #### [facility] [address] [place] [address] Dr. Barbra Kan AUTO DIFFon 39-07-9433AANA #0.1 103/ulNormal0.0-0.1The [facility] Medical CenterComment on above:Performed By: #### FERR, FETIBC, VITB12 #### [facility] [address] [place] [address] Dr. Barbra AlbrechtBasophils/100 WBC (Bld)0.5 %Normal0.2-2.0The [facility] Comment on above:Performed By: #### FERR, FETIBC, VITB12 #### [facility] [address] [place] [address] Dr. Barbra Zeng #0.0 103/ulNormal0.0-0.7The [facility] Medical CenterComment on above: Performed By: #### FERR, FETIBC, VITB12 #### [facility] [address] [place] [address] Dr. Barbra Thomasosinophils/100 WBC (Bld)0.4 %Critically low0.9-7.0The [facility] Community Hospitalment on above:Performed By: #### FERR, FETIBC, VITB12 #### [facility] [address] [place] [address] Dr. Barbra Thomasrythrocyte distribution width (RBC) [Ratio]12.2 %Qzlfaw50.0-15.0 The [facility] CenterComment on above:Performed By: #### FERR, FETIBC, VITB12 #### [facility] [address] [place] [address] Dr. Barbra AlbrechtHematocrit (Bld) [Volume fraction]39.2 %Ixivai11.0-48.0The [facility] Hospitalment on above:Performed By: #### FERR, FETIBC, VITB12 #### [facility] [address] [place] [address] Dr. Barbar AlbrechtHemoglobin (Bld) [Mass/Vol]13.5 g/bMFmpvyt15.0-16.0The [facility] Hospitalment on above:Performed By: #### FERR, FETIBC, VITB12 #### [facility] [address] [place] [address] Dr. Barbra Hutchinson #0.05 10e3/ulCritically high0.00-0.03The [facility] Comment on above:Performed By: #### FERR, FETIBC, VITB12 #### [facility] [address] [place] [address] Dr. Barbra Hutchinson %0.5 %Normal0.0-0.5The [facility] Hospitalment on above: Performed By: #### FERR, FETIBC, VITB12 #### [facility] [address] [place] [address] Dr. Barbra Wade #1.4 103/ulNormal1.2-3.8The [facility] on above:Performed By: #### FERR, FETIBC, VITB12 #### [facility] [address] [place] [address] Dr. Barbra Rochahocytes/100 WBC (Bld)15.1 %Critically low20.5-60.0The [facility] Medical CenterComment on above:Performed By: #### FERR, FETIBC, VITB12 #### [facility] [address] [place] [address] Dr. Barbra Guerrero DIFF REQNONormalThe [facility] Medical CenterComment on above: Performed By: #### FERR, FETIBC, VITB12 #### [facility] [address] [place] [address] Dr. Barbra Dietrich (RBC) [Entitic mass]34.5 pgCritically high26.7-34.0The [facility] Medical CenterComment on above:Performed By: #### FERR, FETIBC, VITB12 #### [facility] [address] [place] [address] Dr. Babrra Dietrich (RBC) [Mass/Vol]34.4 g/fVTlosbm15.9-35.2The [facility] Medical CenterComment on above:Performed By: #### FERR, FETIBC, VITB12 #### [facility] [address] [place] [address] Dr. Barbra Dietrich (RBC) [Entitic vol]100.3 fLCritically high81.0-99.0The [facility] CenterComment on above:Performed By: #### FERR, FETIBC, VITB12 #### [facility] [address] [place] [address] Dr. Barbra Rose #0.4 103/ulNormal0.3-0.8The [facility] Medical CenterComment on above:Performed By: #### FERR, FETIBC, VITB12 #### [facility] [address] [place] [address] Dr. Barbra Landrumocytes/100 WBC (Bld)4.7 %Normal1.7-12.0The [facility] Comment on above:Performed By: #### FERR, FETIBC, VITB12 #### [facility] [address] [place] [address] Dr. Barbra Barr #7.4 103/ulCritically high1.4-6.5The [facility] Comment on above:Performed By: #### FERR, FETIBC, VITB12 #### [facility] [address] [place] [address] Dr. Barbra Murphyutrophils/100 WBC (Bld)78.8 %Critically high43.0-75.0The [facility] Medical CenterComment on above:Performed By: #### FERR, FETIBC, VITB12 #### [facility] [address] [place] [address] Dr. Barbra AlbrechtPlatelet mean volume (Bld) [Entitic vol]9.1 fLCritically low 9.5-13.5The [facility] CenterComment on above:Performed By: #### FERR, FETIBC, VITB12 #### [facility] [address] [place] [address] Dr. Barbra AlbrechtPLT256 103/dfJonknq982-929Hrt [facility] CenterComment on above: Performed By: #### FERR, FETIBC, VITB12 #### [facility] [address] [place] [address] Dr. Barbra AlbrechtRBC3.91 106/ulCritically low4.20-5.40The [facility] Medical CenterComment on above:Performed By: #### FERR, FETIBC, VITB12 #### [facility] [address] [place] [address] Dr. Barbra AlbrechtWBC9.4 103/ulNormal4.0-11.0The [facility] CenterComment on above: Performed By: #### FERR, FETIBC, VITB12 #### [facility] [address] [place] [address] Dr. Barbra AlbrechtFERRITINon 33-07-2975Cthsnbra [Mass/Vol]58.0 ng/mLNormal6.2-137.0 The [facility] CenterComment on above:Performed By: #### FERR, FETIBC, VITB12 #### [facility] [address] [place] [address] Dr. Barbra Osorio AND TIBCon 12-21-2022% ZCMSNKBYKY45.5 %NormalLima City HospitalComment on above:Performed By: #### FERR, FETIBC, VITB12 #### [facility] [address] [place] [address] Dr. Barbra Osorio [Mass/Vol]134.0 ug/xRDeposy59.0-170.0[facility] Comment on above:Performed By: #### FERR, FETIBC, VITB12 #### [facility] [address] [place] [address] Dr. Barbra AlbrechtTIBC DXKDBH229.0 ug/dWGntizh455.0-450.0[facility] Comment on above:Performed By: #### FERR, FETIBC, VITB12 #### [facility] [address] [place] [address] Dr. Barbra AlbrechtVITAMIN B12on 69-99-2638Fzqhkzxzl (Vitamin B12) [Mass/Vol]799.0 pg/bNJygyhc786.0-986.0The [facility] CenterComment on above:Performed By: #### FERR, FETIBC, VITB12 #### [facility] [address] [place] [address] Dr. Barbra AlbrechtXR FOOT LEANDRO MIN 3 VIEWSon 59-14-7629TR FOOT LEANDRO MIN 3 VIEWS EXAMINATION: XR [...] Electronically authenticated by: VIKRAM OSUNA Date: 2022-12-14 15:38CentervilleXR ANKLE RT MIN 3 VIEWSon 77-02-9880AJ ANKLE RT MIN 3 VIEWS EXAM: XR [...] Electronically authenticated by: GIGI WOODS Date: 2022-11-06 13:26NoMercy HealthXR FOOT RT MIN 3 VIEWSon 73-06-0848SE FOOT RT MIN 3 VIEWSEXAM: XR FOOT RT MIN 3 VIEWS HISTORY: [...] Electronically authenticated by: BOLA MARROQUIN Date: 2022-11-06 12:20CentervilleCPKon 58-66-4403NI [Catalytic activity/Vol]143 U/EJbaaas14-913 The [facility] Medical CenterComment on above:Performed By: #### FERR, FETIBC, VITB12 #### [facility] [address] [place] [address] Dr. Barbra Christensen RATE WESTERGRENon 29-35-8738XDK RATE<1Normal<=20The [facility] on above:Performed By: #### FERR, FETIBC, VITB12 #### [facility] [address] [place] [address] Dr. Barbra Artis 09-86-9323HZP6.719 uIU/mLNormal0.358-3.740The [facility] Medical CenterComment on above:Performed By: #### FERR, FETIBC, VITB12 #### [facility] [address] [place] [address] Dr. Barbra Chow B12 AND FOLATEon 85-28-3389Wngsjiyjj (Vitamin B12) [Mass/Vol] 1283.0 pg/mLCritically abgl910.0-986.0The [facility] on above: Performed By: #### B12FOL #### [facility] [address] [place], [place] [address] Dr. Barbra AlbrechtFOLATE26.80 ng/mLNormal8.60-58.90The [facility] Medical CenterComment on above:Performed By: #### B12FOL #### [facility] [address] [place], [place] [address] Dr. Barbra AlbrechtXR CHEST 2 Von 55-46-1074GA CHEST 2 VEXAM: XR CHEST 2 V HISTORY: Chronic cough [...] Electronically authenticated by: GIGI SARMIENTO Date: 2022-09-28 14:48NoMercy HealthBasophils Auto (Bld) [#/Vol]Ordered By: Kye Apodaca on 40-98-7058Ljtsfogdj (Bld) [#/Vol]0.1 10*3/uL0.0-0.2FUniversity Hospitals [facility] CenterBasophils/100 WBC Auto (Bld)Ordered By: Kye Apodaca on 09-13-2022 Basophils/100 WBC (Bld)0.9 %.[facility] HospitalCT biopsyOrdered By: Kye Apodaca on 26-33-9733Suhiabkojwk [Mass/Vol]209 mg/pJ065-523EehwereuzHighland District HospitalEosinophils Auto (Bld) [#/Vol]Ordered By: Kye Apodaca on 42-65-5815Vjsnlaitimo (Bld) [#/Vol]0.0 10*3/uL0.0-0.45[facility] HospitalEosinophils/100 WBC Auto (Bld)Ordered By: Kye Apodaca on 09-13-2022 Eosinophils/100 WBC (Bld)0.5 %.[facility] HospitalErythrocyte distribution width Auto (RBC) [Ratio]Ordered By: Kye Apodaca on 09-13-2022 Erythrocyte distribution width (RBC) [Ratio]14.8 %11.9-15.3FUniversity Hospitals Conneaut Medical CenterFerritin [Mass/volume] in Serum or PlasmaOrdered By: Kye Apodaca on 84-97-5772Hqkvdgfb [Mass/Vol]62.9 ng/qC98-768.8[facility] HospitalHematocrit Auto (Bld) [Volume fraction]Ordered By: Kye Apodaca on 38-85-0344Lkulugeknm (Bld) [Volume fraction]38.9 %34.0-46.4FUniversity Hospitals Conneaut Medical CenterHemoglobin [Mass/volume] in BloodOrdered By: Kye Apodaca on 14-78-1101Klqfqntmwa (Bld) [Mass/Vol]13.4 g/dL11.8-15.4FUniversity Hospitals Conneaut Medical CenterIron [Mass/volume] in Serum or PlasmaOrdered By: Kye Apodaca on 12-73-6371Odpy [Mass/Vol]70 ug/zG25-647ZcekdkklqHighland District HospitalIron binding capacity [Mass/volume] in Serum or PlasmaOrdered By: Kye Apodaca on 90-00-2044Lvue binding capacity [Mass/Vol]293 ug/wV833-581DxwztncixHighland District HospitalIron saturation [Mass Fraction] in Serum or PlasmaOrdered By: Kye Apodaca on 30-19-6771Lwdo saturation [Mass fraction]23.0 %20-50[facility] HospitalLeukocytes [#/volume] corrected for nucleated erythrocytes in Blood by Automated counOrdered By: Kye Apodaca on 20-36-9044PHB corrected for nucl RBC Auto (Bld) [#/Vol]8.6 10*3/uL3.8-11.6FUniversity Hospitals Conneaut Medical CenterLymphocytes Auto (Bld) [#/Vol]Ordered By: Kye Apodaca on 54-61-8091Jdzjwexacnz (Bld) [#/Vol]1.4 10*3/uL1.00-4.8[facility] HospitalLymphocytes/100 WBC Auto (Bld)Ordered By: Kye Apodaca on 09-13-2022 Lymphocytes/100 WBC (Bld)16.3 %.[facility] HospitalMCH Auto (RBC) [Entitic mass]Ordered By: Kye Apodaca on 24-14-6935TOE (RBC) [Entitic mass]34.1 pg24.7-34.3FUniversity Hospitals Conneaut Medical CenterMCHC Auto (RBC) [Mass/Vol]Ordered By: Kye Apodaca on 91-07-4407POGC (RBC) [Mass/Vol]34.5 g/dL32.0-35.0[facility] HospitalMCV Auto (RBC) [Entitic vol]Ordered By: Kye Apodaca on 17-66-2386HGK (RBC) [Entitic vol]98.9 sI25-074XpqzgheshHighland District Hospital Monocytes Auto (Bld) [#/Vol]Ordered By: Kye Apodaca on 36-59-2850Fuilcgyyf (Bld) [#/Vol]0.4 10*3/uL0.0-0.8[facility] HospitalMonocytes/100 WBC Auto (Bld)Ordered By: Kye Apodaca on 01-24-4522Wxwybntuv/100 WBC (Bld)5.0 %. [facility] HospitalNeutrophils Auto (Bld) [#/Vol]Ordered By: Kye Apodaca on 14-04-0955Hamvvcwehid (Bld) [#/Vol]6.6 10*3/uL1.8-7.7FUniversity Hospitals Conneaut Medical CenterNeutrophils/100 WBC Auto (Bld)Ordered By: Kye Apodaca on 80-98-1029Selrrjihfpy/100 WBC (Bld)77.3 %.[facility] Nucleated erythrocytes [Presence] in Blood by Automated countOrdered By: Kye Apodaca on 96-90-5850Bqizkoyab RBC Auto Ql (Bld)0.1 /100{WBC}0-0.5FUniversity Hospitals Conneaut Medical CenterPlatelet mean volume Auto (Bld) [Entitic vol]Ordered By: Kye Apodaca on 25-46-5548Seyakxup mean volume (Bld) [Entitic vol]7.8 fL6.3-10.7 [facility] HospitalPlatelets Auto (Bld) [#/Vol]Ordered By: Kye Apodaca on 94-02-0855Gberapmah (Bld) [#/Vol]309 10*3/fW076-987MbmfbrsieHighland District HospitalRBC Auto (Bld) [#/Vol]Ordered By: Kye Apodaca on 62-66-0553ENN (Bld) [#/Vol]3.93 10*6/uL3.60-5.00[facility] HospitalWBC Auto (Bld) [#/Vol]Ordered By: Kye Apodaca on 10-80-7536NKS (Bld) [#/Vol]8.6 10*3/uL 3.8-11.6FUniversity Hospitals Conneaut Medical CenterCovid-19 PCR ([facility])on 07-27-2022 SARS-CoV-2 (COVID-19) RNA CATRACHITO+probe Ql (Unsp spec)Not detectedNormalNOT DETECTED The [facility] CenterComformerly [facility] on above:Result Comment: This test is not yet approved or cleared by the [place] FDA. When there are no FDA-approved or cleared tests available, and other criteria are met, FDA can make tests available under an emergency access mechanism called an Emergency Use Authorization (EUA). The EUA for this test is supported by the Hand Leather Trimmer of Health and Human Service's (HHS's) declaration [...] of clinical signs and symptoms consistent with SARS-CoV-2.Performed By: #### CVDTBH #### [facility] [address] [place] [address] Dr. Barbra Wilsno AND B AGon 23-73-7059IIJEYDYQKVORHSamaritan Hospital on above:Result Comment: Negative for Flu A protein angiten. Infection due to Flu A cannot be ruled out. FluA angiten in the sample may be below the detection limit of the test.Performed By: #### FERR, FETIBC, VITB12 #### [facility] [address] [place] [address] Dr. Barbra [facility] Children's Medical CenterComment on above: Result Comment: Negative for Flu B protein antigen. Infection due to Flu B cannot be ruled out. FluB antigen in the sample may be below the detection limit of the test.Performed By: #### FERR, FETIBC, VITB12 #### [facility] [address] [place] [address] Dr. Barbra Wilson AGNegativeNormalNEGATIVE SEE COMMENTThe [facility] Medical CenterComment on above:Performed By: #### FERR, FETIBC, VITB12 #### [facility] [address] [place] [address] Dr. Barbra Ambrose AGNegativeNormalNEGATIVE SEE COMMENTThe [facility] Medical CenterComment on above:Performed By: #### FERR, FETIBC, VITB12 #### [facility] [address] [place] [address] Dr. Barbra AlbrechtINTERNAL CONTROLSWithin Normal LimitsNormalWithin Normal Limits The [facility] Medical CenterComment on above:Performed By: #### FERR, FETIBC, VITB12 #### [facility] [address] [place] [address] Dr. Barbra AlbrechtIgKatie [Mass/volume] in Serum or PlasmaOrdered By: Kye Apodaca on 12-18-2425FgM [Mass/Vol]127 mg/gC08-265JknktojtuHighland District HospitalComment on above:Performed at: - [facility] [address] [id number] Director: Andres Arboleda PhD, Phone: [phone] Panel InformationOrdered By: Kye Apodaca on 03-22-3509Mkrywokule IgA AntibodyNegative NegativeUniversity Hospitals Beachwood Medical Centererum gliadin peptide IgA antibody assay (units/volume)Ordered By: Kye Apodaca on 00-92-7688Pujdxxo peptide IgA Qn (S)5 units0-19[facility] HospitalComment on above:Negative 0 - 19 Weak Positive 20 - 30 Moderate to Strong Positive >30Serum gliadin peptide IgG antibody assay (units/volume)Ordered By: Kye Apodaca on 62-42-7907Iagxpsf peptide IgG Qn (S)3 units0-19[facility] HospitalComment on above: Negative 0 - 19 Weak Positive 20 - 30 Moderate to Strong Positive >30Serum tissue transglutaminase (tTG) IgA antibody assay (units/volume)Ordered By: Kye Apodaca on 20-66-1995bCI IgA Qn (S)<2 U/mL03FUniversity Hospitals Conneaut Medical Center Comment on above:Negative 0 - 3 Weak Positive 4 - 10 Positive >10 Tissue Transglutaminase (tTG) has been identified as the endomysial antigen. Studies have demonstr- ated that endomysial IgA antibodies have over 99% specificity for gluten sensitive enteropathy.Serum tissue transglutaminase (tTG) IgG antibody assay (units/volume)Ordered By: Kye Apodaca on 25-70-8217fSC IgG Qn (S)<2 U/mL 05FUniversity Hospitals Conneaut Medical CenterComment on above:Negative 0 - 5 Weak Positive 6 - 9 Positive >9XR Chest 2 Views*on 27-01-1942SA Chest 2 Views* CLINICAL HISTORY: Cough, phlegm COMPARISON: FINDINGS: The cardiomediastinal silhouette is unremarkable. The lungs are free of infiltrates effusions or consolidations. The bones and soft tissues are within normal limits. IMPRESSION: There are no acute cardiopulmonary changes Report reported and signed by ADAM ALCANTARA on 06/13/2022 1556NormalNortoro valley hospitaln [facility] SpecialistCBC AUTO DIFFon 38-47-8029CBMJ #0.1 103/ulNormal0.0-0.1 The [facility] CenterComment on above:Performed By: #### CBC #### [facility] [address] [address] [address] Barbra Jorgephils/100 WBC (Bld)0.6 %Normal0.2-2.0[facility] Comment on above:Performed By: #### CBC #### [facility] [address] [address] [address] Barbra Zeng #0.1 103/ulNormal0.0-0.7The [facility] Medical CenterComment on above: Performed By: #### CBC #### [facility] [address] [place] [address] Dr. Barbra Thomasosinophils/100 WBC (Bld)1.1 %Normal0.9-7.0The [facility] Comment on above:Performed By: #### CBC #### [facility] [address] [place] [address] Dr. Barbra Thomasrythrocyte distribution width (RBC) [Ratio]12.5 %Lqrqnk69.0-15.0 The [facility] CenterComment on above:Performed By: #### CBC #### [facility] [address] [place] [address] Dr. Barbra AlbrechtHematocrit (Bld) [Volume fraction]36.3 %Vtoyce60.0-48.0The [facility] CenterComment on above:Performed By: #### CBC #### [facility] [address] [place] [address] Dr. Barbra AlbrechtHemoglobin (Bld) [Mass/Vol]11.9 g/dLCritically low12.0-16.0The [facility] CenterComment on above:Performed By: #### CBC #### [facility] [address] [place] [address] Dr. Barbra Hutchinson #0.04 10e3/ulCritically high0.00-0.03The [facility] Comment on above:Performed By: #### CBC #### [facility] [address] [place] [address] Dr. Barbra Hutchinson %0.4 %Normal0.0-0.5The [facility] CenterComment on above: Performed By: #### CBC #### [facility] [address] [place] [address] Dr. Barbra Wade #1.8 103/ulNormal1.2-3.8The [facility] CenterComment on above:Performed By: #### CBC #### [facility] [address] [place] [address] Dr. Yilan ChangLymphocytes/100 WBC (Bld)17.5 %Critically low20.5-60.0The [facility] CenterComment on above:Performed By: #### CBC #### [facility] [address] [place] [address] Dr. Barbra ArnoldUAL DIFF REQNONormalThe [facility] CenterComment on above: Performed By: #### CBC #### [facility] [address] [place] [address] Dr. Barbra Dietrich (RBC) [Entitic mass]33.6 heRgpfml26.7-34.0The [facility] CenterComment on above:Performed By: #### CBC #### [facility] [address] [place] [address] Dr. Barbra Dietrich (RBC) [Mass/Vol]32.8 g/wOEylmpd85.9-35.2The [facility] CenterComment on above:Performed By: #### CBC #### [facility] [address] [place] [address] Dr. Barbra Chisholm (RBC) [Entitic vol]102.5 fLCritically high81.0-99.0The [facility] CenterComment on above:Performed By: #### CBC #### [facility] [address] [place] [address] Dr. Barbra Rose #0.6 103/ulNormal0.3-0.8The [facility] CenterComment on above:Performed By: #### CBC #### [facility] [address] [place] [address] Dr. Barbra Landrumocytes/100 WBC (Bld)6.0 %Normal1.7-12.0[facility] Comment on above:Performed By: #### CBC #### [facility] [address] [place] [address] Dr. Barbra Barr #7.5 103/ulCritically high1.4-6.5The [facility] Comment on above:Performed By: #### CBC #### [facility] [address] [place] [address] Dr. Barbra Murphyutrophils/100 WBC (Bld)74.4 %Dlidot08.0-75.0The [facility] Hospitalment on above:Performed By: #### CBC #### [facility] [address] [place] [address] Dr. Barbra Albert mean volume (Bld) [Entitic vol]9.3 fLCritically low 9.5-13.5The [facility] CenterComment on above:Performed By: #### CBC #### [facility] [address] [place] [address] Dr. Barbra AlbrechtPLT283 103/avEnvrnw164-909Xog [facility] on above: Performed By: #### CBC #### [facility] [address] [place] [address] Dr. Barbra AlbrechtRBC3.54 106/ulCritically low4.20-5.40The [facility] on above:Performed By: #### CBC #### [facility] [address] [place] [address] Dr. Barbra AlbrechtWBC10.0 103/ulNormal4.0-11.0The [facility] on above:Performed By: #### CBC #### [facility] [address] [place] [address] Dr. Barbra KempASEon 33-00-7046Gjiedx [Catalytic activity/Vol]114.0 U/LNormal 73.0-393.0The [facility] on above:Performed By: #### CMP, LIPA, LIPID #### [facility] [address] [place] [address] Dr. Barbra KempID PROFILEon 34-42-8546SWWM-HDL RATIO NORMSEE [facility]the [facility] on above:Result Comment: 3.3 - 4.4 LOW RISK 4.4 - 7.1 AVERAGE RISK 7.1 - 11.0 MODERATE RISK >11.0 HIGH RISKPerformed By: #### CMP, LIPA, LIPID #### [facility] [address] [place] [address] Dr. Barbra AlbrechtCholesterol [Mass/Vol]210 mg/dLCritically high<=200[facility] on above:Performed By: #### CMP, LIPA, LIPID #### [facility] [address] [address] [address] Barbra Mirandaesterol in HDL [Mass/Vol]68 mg/dLCritically wein59-10Bty [facility] on above:Performed By: #### CMP, LIPA, LIPID #### [facility] [address] [address] [address] Barbra AlbrechtCholesterol in LDL [Mass/Vol]132.0 mg/dLCentervilleComformerly [facility] on above:Performed By: #### CMP, LIPA, LIPID #### [facility] [address] [address] [address] Barbra Keita.total/Cholesterol in HDL [Mass ratio]3.1 {ratio} NormalThe [facility] Medical CenterComment on above:Performed By: #### CMP, LIPA, LIPID #### [facility] [address] [address] [address] Barbra Reich NORMAL> or = 60 mg/dl - LOW CARDIOVASCULAR RISK <40 mg/dl - HIGH CARDIOVASCULAR RISKGerman Hospital on above:Performed By: #### CMP, LIPA, LIPID #### [facility] [address] [address] [address] Barbra AlbrechtLDL CALC NORMALSEE BELOWNoMercy HealthComment on above:Result Comment: <100 mg/dl OPTIMAL 100 - 129 mg/dl NEAR OR ABOVE OPTIMAL 130 - 159 mg/dl BORDERLINE HIGH 160 - 189 mg/dl HIGH >190 mg/dl VERY HIGH Performed By: #### CMP, LIPA, LIPID #### [facility] [address] [address] [address] Barbra AlbrechtTriglyceride [Mass/Vol]50 mg/dLNormal<=150[facility] Comment on above:Performed By: #### CMP, LIPA, LIPID #### [facility] [address] [address] [address] Barbra DriscollLDL CALC10.0 mg/dLNormalThe [facility] CenterComment on above: Performed By: #### CMP, LIPA, LIPID #### [facility] [address] [place] [address] Dr. Barbra Deng 14(COMP METB)on 27-67-6814Ttvzdfk [Mass/Vol]3.9 g/dLNormal 3.4-5.0The [facility] CenterComment on above:Performed By: #### FERR, FETIBC, VITB12 #### [facility] [address] [place] [address] Dr. Barbra AlbrechtAlbumin/Globulin [Mass ratio]1.3 {ratio}NormalThe [facility] CenterComment on above:Performed By: #### FERR, FETIBC, VITB12 #### [facility] [address] [place] [address] Dr. Barbra Rob [Catalytic activity/Vol]57 U/CSjleoh59-459Euf [facility] CenterComment on above:Performed By: #### FERR, FETIBC, VITB12 #### [facility] [address] [place] [address] Dr. Barbra Koenig [Catalytic activity/Vol]21 U/VPmxpsr35-86Lph [facility] Hospitalment on above:Performed By: #### FERR, FETIBC, VITB12 #### [facility] [address] [place] [address] Dr. Barbra Cintron gap [Moles/Vol]12.1 mmol/LNormalThe [facility] Comment on above:Performed By: #### FERR, FETIBC, VITB12 #### [facility] [address] [place] [address] Dr. Barbra Gallo [Catalytic activity/Vol]13 U/LCritically itm57-92Lps [facility] CenterComment on above:Performed By: #### FERR, FETIBC, VITB12 #### [facility] [address] [place] [address] Dr. Barbra AlbrechtBilirubin [Mass/Vol]0.2 mg/dLNormal0.2-1.0The [facility] Comment on above:Performed By: #### FERR, FETIBC, VITB12 #### [facility] [address] [place] [address] Dr. Barbra AlbrechtCalcium [Mass/Vol]8.9 mg/dLNormal8.5-10.1The [facility] Comment on above:Performed By: #### FERR, FETIBC, VITB12 #### [facility] [address] [place] [address] Dr. Barbra AlbrechtChloride [Moles/Vol]103 mmol/BZtvadl96-764UjuL[facility] Hospital Comment on above:Performed By: #### FERR, FETIBC, VITB12 #### [facility] [address] [place] [address] Dr. Barbra AlbrechtCO2 [Moles/Vol]26.5 mmol/MOkizjf82.0-32.0[facility] Comment on above:Performed By: #### FERR, FETIBC, VITB12 #### [facility] [address] [place] [address] Dr. Barbra AlbrechtCreatinine [Mass/Vol]0.69 mg/dLNormal0.55-1.02[facility] HospitalComment on above:Performed By: #### FERR, FETIBC, VITB12 #### [facility] [address] [place] [address] Dr. Barbra ThomasGFR-AF SINGAPOREAN>60Normal>=60The [facility] CenterComment on above:Performed By: #### FERR, FETIBC, VITB12 #### [facility] [address] [place] [address] Dr. Barbra ThomasGFR-NON AF SINGAPOREAN>60Normal>=60[facility] HospitalComment on above:Performed By: #### FERR, FETIBC, VITB12 #### [facility] [address] [place] [address] Dr. Barbra AlbrechtGlobulin (S) [Mass/Vol]3.0 g/dLNormalThe [facility] CenterComment on above:Performed By: #### FERR, FETIBC, VITB12 #### [facility] [address] [address] [address] Barbra AlbrechtGlucose [Mass/Vol]94 mg/cIDecidh16-444BboLima City Hospital Comment on above:Performed By: #### FERR, FETIBC, VITB12 #### [facility] [address] [place] [address] Dr. Barbra AlbrechtPotassium [Moles/Vol]3.6 mmol/LNormal3.5-5.1The [facility] Comment on above:Performed By: #### FERR, FETIBC, VITB12 #### [facility] [address] [place] [address] Dr. Barbra AlbrechtProtein [Mass/Vol]6.9 g/dLNormal6.4-8.2[facility] Comment on above:Performed By: #### FERR, FETIBC, VITB12 #### [facility] [address] [place] [address] Dr. Barbra AlbrechtSodium [Moles/Vol]138 mmol/OSyqyzu596-213MwjLima City Hospital Comment on above:Performed By: #### FERR, FETIBC, VITB12 #### [facility] [address] [place] [address] Dr. Barbra AlbrechtUrea nitrogen [Mass/Vol]18.0 mg/dLNormal7.0-18.0[facility] HospitalComment on above:Performed By: #### FERR, FETIBC, VITB12 #### [facility] [address] [place] [address] Dr. Barbra AlbrechtUrea nitrogen/Creatinine [Mass ratio]26.1 mg/mgNormalThOhioHealth Grant Medical CenterComment on above:Performed By: #### FERR, FETIBC, VITB12 #### [facility] [address] [place] [address] Dr. Barbra AlbrechtUS Abdomen Completeon 25-19-8411KK Abdomen CompleteEXAM: RUQ US CLINICAL HISTORY: pain FINDINGS: The [...] and signed by ADAM ALCANTARA on 03/10/2022 1059NoClinton Memorial HospitalUS Pelvic Complete w/Transvaginalon 64-27-9826ML Pelvic Complete w/TransvaginalHISTORY: Pelvic pain for one year. History of [...] and signed by Mark Jones on 03/13/2022 0950NoOhio State East HospitalCREENING MAMMOGRAM W/TRAY, BILATERAL*on 02-22-2022 SCREENING MAMMOGRAM W/TRAY, BILATERAL*CLINICAL HISTORY: Screening Mammogram COMPARISON: Priors dating back [...] VERY IMPORTANT TO YOUR HEALTH. THE CURRENT [place] [employer] OF [employer] AND [employer] COMPREHENS[employer]WORK GUIDELINES RECOMMENDS ANNUAL MAMMOGRAPHY BEGINNING AT AGE 41 THIS FACILITY USES A REMINDER SYSTEM TO ENSURE ALL PATIENTS RECEIVE REMINDER NOTIFICATIONS AT THE APPROPRIATE TIME BASED ON THE RECOMMENDATIONS OF THIS EXAM. Board Certified Radiologist. Accredited by the ACR and FDA. Report reported and signed by Mark Jones on 02/27/2022 1028NormalNorthern [facility]den General [facility] SpecialistCULTURE URINEon 43-39-7090WJWBNWV URINECulture Observations: MODERATE GROWTH OF MIXED GENITAL JOHNNY. NO POTENTIAL PATHOGENS SEEN.NormalThe [facility] CenterComment on above:Performed By: #### FERR, FETIBC, VITB12 #### [facility] [address] [address] [address] Barbra Albrecht Vital Signs Date TimeVital SignValuePerforming HtbvqdfnlZqlapajf81-70-7613 10:29-0400Body ppjbaf472.64 cmFernanda Concepcion MD Work Phone: [phone]10-20-2025 10:29-0400 Body mass index (BMI) [Ratio]20.3 kg/h9PfjzwaFernanda Concepcion MD Work Phone: [phone]10-20-2025 10:29-0400 Body wbkemj97.15 kgFernanda Concepcion MD Work Phone: [phone] [place], [place] [address]10-20-2025 10:29-0400 Diastolic blood dtntuios94 mm[Hg]Fernanda Concepcion MD Work Phone: [phone]10-20-2025 10:29-0400 Heart rate97 /minFernanda Concepcion MD Work Phone: [phone]10-20-2025 10:29-0400 SaO2% (BldA) [Mass fraction]98 %Fernanda Concepcion MD Work Phone: [facility]10-20-2025 10:29-0400 Systolic blood zabdjsdk840 mm[Hg]Fernanda Concepcion MD Work Phone: [facility]09-02-2025 13:03-0400 Body ozjxrl613.6 cmLeanne David DO Work Phone: [facility] HospitalGcicdnfeze22-87-3945 13:03-0400Body mass index (BMI) [Ratio]20.98 kg/d5Cvhfyw David DO Work Phone: [facility] HospitalWidvuuzcju96-56-4678 13:03-0400Body .97 kgLeanne David DO Work Phone: [facility] HospitalNrnukkzmsr65-65-7293 13:03-0400Diastolic blood fygaccdn35 mm[Hg]Marta David DO Work Phone: [facility] HospitalTeanswnzgr54-14-5785 13:03-0400Heart rate86 /min Marta David DO Work Phone: [facility] HospitalGclybvjnma84-29-4533 13:03-3532BgW7% (BldA) [Mass fraction]99 %Marta David DO Work Phone: [facility] HospitalLnljcaskcw59-38-2599 13:03-0400Systolic blood wtkdfboa503 mm[Hg]Marta David DO Work Phone: [facility] HospitalLwdsnyopar28-63-3660 08:30-0400Body bnhxva146.64 cmFernanda Concepcion MD Work Phone: [facility]07-17-2025 08:30-0400 Body mass index (BMI) [Ratio]20.4 kg/f2YovznvFernanda Concepcion MD Work Phone: [facility]07-17-2025 08:30-0400 Body rzduuq40.37 kgFernanda Concepcion MD Work Phone: 1(129)966-[address] [place], [place] 2068707-17-2025 08:30-0400 Diastolic blood mm[Hg]Fernanda Concepcion MD Work Phone: 1(247)[address]07-17-2025 08:30-0400 Heart rate80 /Cande Concepcion MD Work Phone: 1(817)15875 [address]07-17-2025 08:30-0400 Systolic blood mm[Hg]Fernanda Concepcion MD Work Phone: 1(373)5[address]07-02-2025 09:40-0400 Body vwvaur258.64 cmFernanda Concepcion MD Work Phone: 1(561)[address]07-02-2025 09:40-0400 Body mass index (BMI) [Ratio]19.3 kg/s8SjlywaFernanda Concepcion MD Work Phone: 1(435)38075 [address]07-02-2025 09:40-0400 Body .43 kgFernanda Concepcion MD Work Phone: 1(533)94375 [address]07-02-2025 09:40-0400 Diastolic blood mm[Hg]Fernanda Concepcion MD Work Phone: 1(711)[address]07-02-2025 09:40-0400 Heart rate89 /Cande Concepcion MD Work Phone: 1(393)76575 [address]07-02-2025 09:40-0400 SaO2% (BldA) [Mass fraction]98 %Fernanda Concepcion MD Work Phone: 1(622)[address]07-02-2025 09:40-0400 Systolic blood hgbyaaqn312 mm[Hg]Fernanda Concepcion MD Work Phone: 1(320)169[address]06-17-2025 11:39-0400 Body jaanqa653.64 cmFernanda Concepcion MD Work Phone: 1(846)90675 [address]06-17-2025 11:39-0400 Body mass index (BMI) [Ratio]19.8 kg/y4EkotaxFernanda Concepcion MD Work Phone: [facility]06-17-2025 11:39-0400 Body aekomc26.79 kgFernanda Concepcion MD Work Phone: [facility]06-17-2025 11:39-0400 Diastolic blood ealmqpau40 mm[Hg]Fernanda Concepcion MD Work Phone: [facility]06-17-2025 11:39-0400 Heart rate75 /minFernanda Concepcion MD Work Phone: [facility]06-17-2025 11:39-0400 Systolic blood euwtfdnc561 mm[Hg]Fernanda Concepcion MD Work Phone: [facility]05-27-2025 15:05-0400 Body .6 cmLeanne David DO Work Phone: 1(224)852-[facility] HospitalOrvzxqyims20-69-8239 15:05-0400Body mass index (BMI) [Ratio]20.18 kg/i1Xefwwi David DO Work Phone: 1(031)488-[facility] HospitalAboyfzrxps71-61-8156 15:05-0400Body uzfqgc18.7 kg Marta David DO Work Phone: 1(264)634-[facility] HospitalLszjbgugtr59-02-0303 15:05-0400Diastolic blood mm[Hg]Marta David DO Work Phone: 1(703)913-[facility] HospitalUytrymfkek36-03-6526 15:05-0400Heart rate86 /min Marta David DO Work Phone: 1(996)045-[facility] HospitalXqdggbimrh98-89-9304 15:05-5574GtK3% (BldA) [Mass fraction]95 %Marta David DO Work Phone: 1(325)309-[facility] HospitalObirfzfdfw07-82-4361 15:05-0400Systolic blood lvednnlt582 mm[Hg]Marta David DO Work Phone: 1(865)525-[address] [place], [place] [address]Nchmbygpqr06-02-8851 09:04-0400Body xloglb174.64 cmFernanda Concepcion MD Work Phone: 1(321)259-[address] [place], [place] 2068705-23-2025 09:04-0400 Body mass index (BMI) [Ratio]19.7 kg/c3PqtfyoFernanda Concepcion MD Work Phone: 1(008)10[address]05-23-2025 09:04-0400 Body jluvpvenpoq36.8 [degF]Fernanda Concepcion MD Work Phone: 1(357)22575 [address]05-23-2025 09:04-0400 Body .33 kgFernanda Concepcion MD Work Phone: 1(010)23675 [address]05-23-2025 09:04-0400 Diastolic blood dvdsgaah74 mm[Hg]Fernanda Concepcion MD Work Phone: 1(144)[address] [place], [place] 9788505-23-2025 09:04-0400 Heart rate77 /minFernanda Concepcion MD Work Phone: 1(455)[address] [place], [place] 9788505-23-2025 09:04-0400 Respiratory rate16 /minFernanda Concepcion MD Work Phone: 1(524)[address] [place], [place] 9788505-23-2025 09:04-0400 SaO2% (BldA) [Mass fraction]98 %Fernanda Concepcion MD Work Phone: 1(521)[address] [place], [place] 9788505-23-2025 09:04-0400 Systolic blood mm[Hg]Fernanda Concepcion MD Work Phone: 1(032)39875 [address]05-02-2025 17:36-0400 Body yadjossqlka20.01 [degF]Markel Vicente [employer] Work Phone: [facility] HospitalUapzibfkyd15-96-9659 17:36-0400Diastolic blood puiayjiv13 mm[Hg]Markel Vicente [employer] Work Phone: [facility] HospitalVixndmsmqy32-54-1693 17:36-0400Heart rate86 /min Markel Vicente [employer] Work Phone: [facility] HospitalPbfhkreivu56-76-7192 17:36-3708NxB3% (BldA) [Mass fraction]98 %Markel Vicente [employer] Work Phone: noLee[facility] Summit HospitalIhgunrobjj66-37-6292 17:36-0400Systolic blood sowprexi802 mm[Hg]Markelsloane Ruel[place]Mann[place] [employer] Work Phone: [facility] HospitalGsmlrtfbfa53-19-9567 09:13-0400Body mass index (BMI) [Ratio]18.88 kg/s4BxvgisStevan Alicia MD Work Phone: [facility]OL[facility] HospitalPjmotofump13-47-6095 09:13-0400Body enowhc12.07 kgStevan Alicia MD Work Phone: noLee's Summit HospitalWuyqiutpfj36-67-8042 09:13-0400Diastolic blood hluggsle82 mm[Hg]Stevan Alicia MD Work Phone: [facility] HospitalGeodtimhkw71-99-3510 09:13-0400Systolic blood wdrrjzzi819 mm[Hg]Stevan Alicia MD Work Phone: [facility] HospitalHbrpksihry62-81-2052 14:19-0400Body ugfxak436.6 cmAngmike Talha [employer] Work Phone: [facility] HospitalMlfhmzbuwo63-38-5786 14:19-0400Body mass index (BMI) [Ratio]19.05 kg/y4LdjuchCandice Palencia [employer] Work Phone: [facility] HospitalUvprxrywha82-32-6117 14:19-0400Body bkzxcy30.52 kgCandice Palencia [employer] Work Phone: [facility] HospitalOrixlufiko73-11-6872 14:19-0400Diastolic blood dafzkcnh58 mm[Hg]Candice Palencia [employer] Work Phone: [facility]OL[facility] HospitalYrhplyhlxb51-22-9538 14:19-0400Heart rate87 /min Candice Palencia [employer] Work Phone: [facility] HospitalMxbtxzwdqb85-70-7033 14:19-0449YiV9% (BldA) [Mass fraction]96 %Candice Palencia [employer] Work Phone: [facility]OL[facility] HospitalScwetxwala98-34-7565 14:19-0400Systolic blood wquiqize517 mm[Hg]Candice Palencia [employer] Work Phone: [facility] HospitalWnxvmxcbnw82-87-6065 10:03-0400Body .64 cmFernanda Concepcion MD Work Phone: 1(411)06[address]03-27-2025 10:03-0400 Body mass index (BMI) [Ratio]19.8 kg/d3XmlhieFernanda Concepcion MD Work Phone: 1(844)[address] [place], [place] 9788503-27-2025 10:03-0400 Body zmxcev15.9 kgFernanda Concepcion MD Work Phone: 1(873)47175 [address]03-27-2025 10:03-0400 Diastolic blood vdufcwpw34 mm[Hg]Fernanda Concepcion MD Work Phone: 1(970)[address] [place], [place] 9788503-27-2025 10:03-0400 Heart rate85 /Cande Concepcion MD Work Phone: 1(748)[address] [place], [place] 9788503-27-2025 10:03-0400 Systolic blood khmjitzd050 mm[Hg]Fernanda Concepcion MD Work Phone: 1(193)[address] [place], [place] 9788512-04-2024 13:00-0500 Diastolic blood mm[Hg]Fernanda Concepcion MD Work Phone: 1(249)[address] [place], [place] 9788512-04-2024 13:00-0500 Heart rate94 /Cande Concepcion MD Work Phone: 1(187)[address] [place], [place] 9788512-04-2024 13:00-0500 Respiratory rate18 /Cande Concepcion MD Work Phone: 1(268)[address] [place], [place] 9788512-04-2024 13:00-0500 SaO2% (BldA) [Mass fraction]97 %Fernanda Concepcion MD Work Phone: 1(522)[address] [place], [place] 9788512-04-2024 13:00-0500 Systolic blood jsiamjqa610 mm[Hg]Fernanda Concepcion MD Work Phone: 1(472)[address] [place], [place] 9788512-04-2024 09:56-0500 Body mimujo930.64 cmFernanda Concepcion MD Work Phone: 1(252)09[address]12-04-2024 09:56-0500 Body mass index (BMI) [Ratio]19.5 kg/s1EhbfdiFernanda Concepcion MD Work Phone: 1(789)23575 [address]12-04-2024 09:56-0500 Body etlakrywcxg13.9 [degF]Fernanda Concepcion MD Work Phone: 1(330)43675 [address]12-04-2024 09:56-0500 Body nnzfot45.88 kgFernanda Concepcion MD Work Phone: 1(202)10675 [address]12-04-2024 09:56-0500 Diastolic blood jqqtgpum87 mm[Hg]Fernanda Concepcion MD Work Phone: 1(958)32675 [address]12-04-2024 09:56-0500 Heart rate91 /minFernanda Concepcion MD Work Phone: 1(159)10775 [address]12-04-2024 09:56-0500 Systolic blood pevnoqdk710 mm[Hg]Fernanda Concepcion MD Work Phone: 1(074)07175 [address]11-26-2024 13:13-0500 Body vbbtlkzddyp31.1 [degF]Fernanda Concepcion MD Work Phone: 1(346)[address]11-18-2024 10:30-0500 Body rnwwul102.64 cmFernanda Concepcion MD Work Phone: 1(159)17575 [address]11-18-2024 10:30-0500 Body mass index (BMI) [Ratio]19.3 kg/k0UxampzFernanda Concepcion MD Work Phone: 1(925)18875 [address]11-18-2024 10:30-0500 Body [degF]Fernanda Concepcion MD Work Phone: 1(962)01075 [address]11-18-2024 10:30-0500 Body tboefa39.43 kgFernanda Concepcion MD Work Phone: 1(955)78275 [address]11-18-2024 10:30-0500 Diastolic blood oihqhiwx25 mm[Hg]Fernanda Concepcion MD Work Phone: 1(419)483-[address] [place], [place] 2068711-18-2024 10:30-0500 Heart agcw398 /Cande Concepcion MD Work Phone: 1(802)13275 [address]11-18-2024 10:30-0500 Respiratory rate16 /Cande Concepcion MD Work Phone: 1(793)[address] [place], [place] 9788511-18-2024 10:30-0500 SaO2% (BldA) [Mass fraction]97 %Fernanda Concepcion MD Work Phone: 1(068)75575 [address]11-18-2024 10:30-0500 Systolic blood rdtozzeu260 mm[Hg]Fernanda Concepcion MD Work Phone: 1(995)[address] [place], [place] 9788510-28-2024 08:42-0400 Body npdquc87.07 kgMD Fernanda Concepcion Work Phone: 1(927)[address] [place], [place] 9788510-28-2024 08:42-0400 Diastolic blood dynyddgp25 mm[Hg]MD Fernanda Concepcion Work Phone: 1(533)[address] [place], [place] 9788510-28-2024 08:42-0400 Heart rate89 /minMD Fernanda Concepcion Work Phone: 1(361)[address] [place], [place] 9788510-28-2024 08:42-0400 Systolic blood xzjuhdcw307 mm[Hg]MD Fernanda Concepcion Work Phone: 1(388)[address] [place], [place] 9788510-17-2024 14:50-0400 Body mass index (BMI) [Ratio]19.05 kg/v1HmznmyStevan Alicia MD Work Phone: [facility] HospitalPzshpsiutq15-07-9549 14:50-0400Body eaxddg93.52 kgStevan Alicia MD Work Phone: [facility] HospitalGkfbyaamcj11-23-6468 14:50-0400Diastolic blood ffppfanp74 mm[Hg]Stevan Alicia MD Work Phone: [facility] HospitalQwuuemvubm15-95-3807 14:50-0400Systolic blood twbystrs565 mm[Hg]Stevan Alicia MD Work Phone: [facility] HospitalCvngydjmwc54-43-5526 15:14-0400Body ojtszt392.6 cmLeanne David DO Work Phone: [facility] HospitalKpvgfecgqi81-41-5704 15:14-0400Body mass index (BMI) [Ratio]18.56 kg/m9Dgytls David DO Work Phone: [facility] HospitalPjawfogvmr84-66-2360 15:14-0400Body arynry86.16 kgLeanne David DO Work Phone: [facility] HospitalIzitethllm90-42-6777 15:14-0400Diastolic blood kietxrnb29 mm[Hg]Marta David DO Work Phone: [facility] HospitalMmsajgercs39-03-3056 15:14-0400Heart rate76 /min Marta David DO Work Phone: [facility] HospitalLbmaiidroc92-29-8462 15:14-2446CpA0% (BldA) [Mass fraction]99 %Marta David DO Work Phone: [facility] HospitalDhgmxucakx65-74-2533 15:14-0400Systolic blood mm[Hg]Marta David DO Work Phone: [facility] HospitalTezvgjjmfa18-51-1439 08:36-0400Body poyuuz001.64 cmMD Fernanda Concepcion Work Phone: [facility]07-16-2024 08:36-0400 Body mass index (BMI) [Ratio]18.2 kg/m2MD Fernanda Concepcion Work Phone: [facility]07-16-2024 08:36-0400 Body wzlper35.25 kgMD Fernanda Concepcion Work Phone: [facility]07-16-2024 08:36-0400 Diastolic blood ofggwtnr64 mm[Hg]MD Fernanda Concepcion Work Phone: [facility]07-16-2024 08:36-0400 Heart rate80 /minMD Fernanda Concepcion Work Phone: [facility]07-16-2024 08:36-0400 Systolic blood eytdadvb804 mm[Hg]MD Fernanda Concepcion Work Phone: [facility]06-28-2024 13:39-0400 Blood Pressure LocationGirma Delgado [facility]06-28-[facility] 13:39-0400 Diastolic blood wzmuktty90 mm[Hg]Girma Delgado [facility]06-28-2024 13:39-0400Heart rate85 /minGirma Delgado [facility]06-28-2024 13:39-0400 Respiratory rate16 /minGirma Delgado [facility]06-28-2024 13:39-8073GcL6% (BldA) [Mass fraction]96 %Girma Delgado [facility]06-28-2024 13:39-0400 Systolic blood yzptqfsj626 mm[Hg]Girma Delgado [facility]06-18-2024 11:48-0400 Diastolic blood mm[Hg]MD Fernanda Concepcion Work Phone: [facility]06-18-2024 11:48-0400 Heart rate66 /minMD Fernanda Concepcion Work Phone: [facility]06-18-2024 11:48-0400 Respiratory rate18 /minMD Fernanda Concepcion Work Phone: [facility]06-18-2024 11:48-0400 SaO2% (BldA) [Mass fraction]98 %MD Fernanda Concepcion Work Phone: [facility]06-18-2024 11:48-0400 Systolic blood mm[Hg]MD Fernanda Concepcion Work Phone: [facility]06-18-2024 10:10-0400 Body shevye407.64 cmMD Fernanda Concepcion Work Phone: [facility]06-18-2024 10:10-0400 Body .89 kgMD Fernanda Concepcion Work Phone: [facility]05-15-2024 14:53-0400 Diastolic blood itxpuhhc28 mm[Hg]Girma Delgado [facility]05-15-2024 14:53-0400Heart rate81 /minRyaltaf Delgado [facility]05-15-2024 14:53-4060VlS0% (BldA) [Mass fraction]95 %Girma Delgado [facility]05-15-2024 14:53-0400 Systolic blood ncaulyrf319 mm[Hg]Girma Delgado [facility]04-09-2024 10:43-0400Body .64 cm Fernanda Concepcion Work Phone: [facility]04-09-2024 10:43-0400 Body mass index (BMI) [Ratio]19.1 kg/m2MD Fernanda Concepcion Work Phone: [facility]04-09-2024 10:43-0400 Body qfleao47.72 kgMD Fernanda Concepcion Work Phone: [facility]04-09-2024 10:43-0400 Diastolic blood iqzixrhr05 mm[Hg]MD Fernanda Concepcion Work Phone: [facility]04-09-2024 10:43-0400 Heart rate98 /minMD Fernanda Concepcion Work Phone: [facility]04-09-2024 10:43-0400 Systolic blood qanlnrah469 mm[Hg]MD Fernanda Concepcion Work Phone: [facility]03-25-2024 10:20-0400 Body hqvsos304.64 cmMD Fernanda Concepcion Work Phone: [facility]03-25-2024 10:20-0400 Body mass index (BMI) [Ratio]18.8 kg/m2MD Fernanda Concepcion Work Phone: [facility]03-25-2024 10:20-0400 Body iodkuh79.07 kgMD Fernanda Concepcion Work Phone: 1([phone])551-16[facility]03-25-2024 10:20-0400 Diastolic blood mm[Hg]MD Fernanda Concepcion Work Phone: 1(615)352-56[facility]03-25-2024 10:20-0400 Heart rate87 /minMD Fernanda Concepcion Work Phone: 1(192)907-58[facility]03-25-2024 10:20-0400 Systolic blood mm[Hg]MD Fernanda Concepcion Work Phone: 1(136)022-39[facility]02-06-2024 07:20-0500 Body hefmpw831.64 cmMD Fernanda Concepcion Work Phone: 1(428)993-33[facility]02-06-2024 07:20-0500 Body qsiixf86.89 kgMD Fernanda Concepcion Work Phone: 1(959)875-02[facility]12-04-2023 13:30-0500 Body wuupnj833.64 cmFernanda Concepcion Other [employer] Other 12-04-2023 13:30-0500Body mass index (BMI) [Ratio] 18.49 kg/l1VxelxeFernanda Concepcion Other [employer] Other 12-04-2023 13:30-0500Body xuppjp63.98 kgFernanda Concepcion Other [employer] Other 12-04-2023 13:30-0500Diastolic blood sauqubrh48 mm[Hg] Fernanda Concepcion Other [employer] Other 12-04-2023 13:30-0500Systolic blood rxjcibad003 mm[Hg] Fernanda Jamey Other [facility] Other 11-01-2023 14:00-0400Body zixppn736.64 cmStacho Mcdonough Other [facility] Other 11-01-2023 14:00-0400Body mass index (BMI) [Ratio] 18.14 kg/c2SbqowdStefan Mcdonough Other [facility] Other 11-01-2023 14:00-0400Body egndzy52.98 kgStefan Mcdonough Other [facility] Other 11-01-2023 14:00-9068BuG6% (BldA) [Mass fraction]98 % Stefan Mcdonough Other [facility] Other 08-30-2023 09:54-0400Blood Pressure LocationJENNIFER EJ [facility]08-30-2023 09:54-0400Diastolic blood srijjdez42 mm[Hg]GIANNA EJ [facility]08-30-2023 09:54-0400Heart rate90 /minJENNIFER EJ [facility]08-30-2023 09:54-0400Systolic blood bszmixcg838 mm[Hg]GIANNA EJ [facility]08-23-2023 09:41-0400Blood Pressure LocationJENNIFER EJ [facility] [place] [address]-23-2023 09:41-0400Diastolic blood ciydhrfo65 mm[Hg]GIANNA EJ [facility]08-23-2023 09:41-0400Heart rate89 /minJENNIFER EJ [facility] [place] [address]-23-2023 09:41-0400Systolic blood pqjcejza611 mm[Hg]GIANNA EJ [facility] [place] [address]-16-2023 10:47-0400Blood Pressure LocationJENNIFER EJ [facility] [place] [address]-16-2023 10:47-0400Diastolic blood mm[Hg]GIANNA EJ [facility] [place] [address]-16-2023 10:47-0400Heart rate81 /minJENNIFER EJ [facility] [place] [address]-16-2023 10:47-0400Systolic blood zhlxercn026 mm[Hg]GIANNA EJ [facility] [place] [address]-09-2023 09:43-0400Blood Pressure LocationJENNIFER EJ [facility] [place] [address]-09-2023 09:43-0400Diastolic blood jtdewukq36 mm[Hg]GIANNA EJ [facility] [place] [address]-09-2023 09:43-0400Heart rate74 /minJENNIFER EJ [facility] [place] [address]-09-2023 09:43-0400Systolic blood ilfolnjq961 mm[Hg]GIANNA KAPLAN [facility]07-14-2023 08:45-0400Body xkyddc766.64 cmFernanda Concepcion Other [employer] Other 07-14-2023 08:45-0400Body mass index (BMI) [Ratio] 19.21 kg/o5HvsntsFernanda Concepcion Other [employer] Other 07-14-2023 08:45-0400Body zzyvvt60.98 kgFernanda Concepcion Other [employer] Other 07-14-2023 08:45-0400Diastolic blood npeexxbj53 mm[Hg] Fernanda Concepcion Other [employer] Other 07-14-2023 08:45-0400Systolic blood lmtleuio835 mm[Hg] Fernanda Concepcion Other [employer] Other 06-09-2023 13:00-0400Body .64 cmFernanda Concepcion Other [employer] Other 06-09-2023 13:00-0400Body mass index (BMI) [Ratio] 20.01 kg/n1KqgtkxFernanda Concepcion Other [employer] Other 06-09-2023 13:00-0400Body .25 kgFernanda Concepcion Other [employer] Other 06-09-2023 13:00-0400Diastolic blood ormkpsgt62 mm[Hg] Fernanda Concepcion Other [employer] Other 06-09-2023 13:00-0400Systolic blood wesgubzb844 mm[Hg] Fernanda Concepcion Other [employer] Other 04-03-2023 11:00-0400Body beflhy204.64 cmAmecastillo Concepcion Other [employer] Other 04-03-2023 11:00-0400Body mass index (BMI) [Ratio] 20.82 kg/m4Qhaevacastillo Concepcion Other [employer] Other 04-03-2023 11:00-0400Body jirxai21.51 kgAmecastillo Concepcion Other [employer] Other 04-03-2023 11:00-0400Diastolic blood cpwzkoqj38 mm[Hg] Fernanda Concepcion Other [employer] Other 04-03-2023 11:00-6630ZeE9% (BldA) [Mass fraction]97 % Fernanda Concepcion Other [employer] [facility] Other 04-03-2023 11:00-0400Systolic blood nkxfedxz065 mm[Hg] Fernanda Concepcion Other [employer] [facility] Other 03-28-2023 08:33-0400Blood Pressure LocationJENNIFER EJ [facility]03-28-2023 08:33-0400Diastolic blood yruyzjbl49 mm[Hg]GIANNA EJ [facility]03-28-2023 08:33-0400Heart rate89 /minJENNIFER EJ [facility]03-28-2023 08:33-0400Systolic blood gsduvfcg051 mm[Hg]GIANNA KAPLAN [facility]01-04-2023 11:28-0500Body kxhlpiygqvt27.4 [degF]MD Stevan Alicia Work Phone: [facility]01-04-2023 11:28-0500 Body pupybd94.2 kgMD Stevan Alicia Work Phone: [facility]072)[facility]-04-2023 11:28-0500 Diastolic blood ckbxqabs25 mm[Hg]MD Stevan Alicia Work Phone: 0(627)755-[facility]01-04-2023 11:28-0500 Heart rate86 /minMD Stevan Alicia Work Phone: 4(099)791-[address] [place], [place] 2247301-04-2023 11:28-0500 Respiratory rate18 /minMD Stevan Alicia Work Phone: 1(327)131-[address] [place], [place] 2247301-04-2023 11:28-0500 SaO2% (BldA) [Mass fraction]100 %MD Stevan Alicia Work Phone: [facility]01-04-2023 11:28-0500 Systolic blood qnqvlzay693 mm[Hg]MD Stevan Alicia Work Phone: [facility]12-01-2022 09:40-0500 Blood Pressure LocationRobert RICE [facility] [place] 487542-01-2022 09:40-0500Diastolic blood jjgjqjfy22 mm[Hg]Willem HARRIS [facility] [place] 487542-01-2022 09:40-0500Heart rate76 /minRobert RICE [facility] [place] 487542-01-2022 09:40-0500Systolic blood vimwwoxs348 mm[Hg]Willem HARRIS [facility] Riauhzkn26-95-8761 10:41-0400Body qllmii878.91 cmMD Stevan Alicia Work Phone: [facility] Encounters Encounter DateEncounter TypeCare ProviderFacilityStart: 07-13-2025 End: 46-50-2619srtbzgepfsZnzrio E Braun MD Work Phone: [phone]-Vtgjniffd [facility] BCStart: 07-13-2025 End: 50-28-0065Njrwegm encounter procedureThmarylu Mrak MD-[facility] Work Phone: Start: 07-08-2025 End: 50-76-8630wbtbfxzhzzFYOQJT P JONESNot AvailableStart: 07-08-2025 End: 11-25-5893onvdoazfmdUVETGE GILLMOTyrellNot AvailableStart: 07-07-2025 End: 45-74-5445qexrwuxdniBbwzfy E Braun MD Work Phone: [phone])468-7403940-5408-[facility]vedpv[facility] Health OrthopedicsStart: 07-07-2025 End: 60-50-3063Cnxilme encounter procedureCodeandra Rodriguez MD-[facility] Work Phone: Start: 07-06-2025 End: 93-65-6840nnlyzlapswLedbmn E Braun MD Work Phone: -[facility]vueStart: 07-06-2025 End: 17-86-0633Ugtaadc encounter procedureCathryn Lambert DO-[facility] Work Phone: Start: 76-50-7539Cex-patient / Non-visitCatherine Prieto TIE BUCKER-[facility] Work Phone: Start: 06-08-2025 End: 44-92-8571ZtlvbfQmwnmmena Lopes OBGYNComment on above: Iron deficiencyStart: 05-19-2025 End: 73-26-8107Impmjk Junaid Hernandez DO Work Phone: no[facility]ologyStart: 05-19-2025 End: 06-65-8229Ojziwg flowsheetMarta Hernandez DO Work Phone: noMS [facility]monologyStart: 05-19-2025 End: 64-57-2041Ffeuxz outpatient visit 25 minutesMarta Hernandez DO Work Phone: noMS [facility] PulmonologyComment on above: Chronic obstructive pulmonary disease, unspecified COPD type (HCC) (Primary Dx); Cigarette smokerStart: 05-19-2025 End: 90-10-7531lnffibxcxiGSJNVU K STRACKNot AvailableStart: 04-22-2025 End: 15-76-7188ejebioxmwuIsgavq E Braun MD Work Phone: [facility] Work Phone: Start: 04-22-2025 End: 91-96-7275Islewgg encounter procedureThmarylu Mark MD-[facility] Work Phone: Start: 04-09-2025 End: 24-45-1574ujnyyhztzlZXLNTY P JONESNot AvailableStart: 04-02-2025 End: 74-58-1815tafkzzdzkcVoqtry E Braun MD Work Phone: [facility] Work Phone: Start: 04-02-2025 End: 49-91-2614Azpwvbb encounter procedureFernanda Concepcion MD-[facility] Work Phone: Start: 04-02-2025 End: 50-72-9051Lvcviep encounter statusFernanda Cocnepcion MDUniversity Hospitals Beachwood Medical Centertart: 03-27-2025 End: 66-62-1856iylbbkdfsmPmtwci E Braun MD Work Phone: [facility] Work Phone: Start: 03-27-2025 End: 79-89-6343Cvcsxsc encounter procedureCodeandra Rodriguez MD-[facility] Work Phone: Start: 03-23-2025 End: 89-91-1268knfgqyxibnXrnysc E Braun MD Work Phone: [facility] Work Phone: Start: 03-23-2025 End: 36-92-0994Unsqhif encounter procedureTad Mark MD-[facility] Work Phone: Start: 03-18-2025 End: 57-14-8985kojoujfuiwHzcask E Braun MD Work Phone: [facility] Work Phone: Start: 03-18-2025 End: 15-65-0967Uhaqmwh encounter procedureCathryn Lambert DO-[facility] Neurology [place] Work Phone: Start: 26-05-9874Tht-patient / Non-visitFernanda Concepcion MD-[facility] Work Phone: Start: 03-03-2025 End: 08-83-0742Jbdvdek encounter procedureFernanda Concepcion MD-[facility] Work Phone: Start: 03-02-2025 End: 83-23-5970Zxrkbop encounter procedureCathryn Lambert DO-[facility] Work Phone: Start: 02-25-2025 End: 24-02-3635xspdpqbgimHhqaxx E Braun MD Work Phone: [facility] Work Phone: Start: 02-25-2025 End: 49-06-9690Yyjskgu encounter Nguyễn Concepcion MD Work Phone: [facility] Work Phone: Start: 02-10-2025 End: 41-05-9725Qmgupc outpatient visit 25 minutesMarta Hernandez DO Work Phone: NOLO PULMComment on above:Chronic obstructive pulmonary disease, unspecified COPD type (CMS/HCC) (Primary Dx); Cigarette smokerStart: 02-10-2025 End: 86-21-0092wauhgclnipEUWBNW K STRACKNot AvailableStart: 02-10-2025 End: 49-89-3265Nwekxn flowsTelly Hernandez DO Work Phone: NOMS PULMStart: 02-10-2025 End: 86-65-2400Jphcjn flowsheetLealvin Parker David DO Work Phone: NOMS PULMStart: 02-06-2025 End: 26-18-8342Tvbwirb encounter Nguyễn Concepcion MD Work Phone: [facility] Work Phone: Start: 02-06-2025 End: 02-42-6578baeqbfjzzgJdbndx E BraunFacility:[facility] Centertart: 34-13-8649Dvrdzgqibh RecurringFernanda Concepcion MD Work Phone: [facility] Acute Work Phone: Start: 01-27-2025 End: 15-63-2337Vnetqzr encounter procedureFernanda Concepcion MD Work Phone: [facility] CtrStart: 01-27-2025 End: 21-72-4282glvewicmbfZdsnqf E Braun MD Work Phone: [facility] Work Phone: Start: 01-16-2025 End: 72-33-9917Shtlcu outpatient visit 25 minutesRacheshan Vicente NP Work Phone: NOKE SWS UCComment on above:Pain and swelling of toe of left foot (Primary Dx); Muscle strain of left foot, initial encounterStart: 01-16-2025 End: 22-73-4817zrnaigqdkmIXPUDZ L HOLBROOKNot AvailableStart: 01-12-2025 End: 17-44-7535xetoraabpdJDCOKN P JONESNot AvailableStart: 01-12-2025 End: 30-65-0327Dwzsrv outpatient visit 15 minutesStevan Alicia MD Work Phone: [facility] OBComment on above:Encounter for gynecological examination without abnormal finding (Primary Dx); Encounter for screening for cervical cancer; Cysts of both ovaries; History of endometrial ablation; Amenorrhea; Asymptomatic menopausal state; Anemia, unspecified type; Other iron deficiency anemia; Abnormal TSH; Mood swings; Chronic vulvitis; HSV (herpes simplex virus) infection; MyomaStart: 01-12-2025 End: 49-49-4347Juhpveg encounter statusStevan Alicia MD Work Phone: [facility] HealthcareStart: 01-06-2025 End: 16-76-3022Ymedta outpatient visit 25 minutesCandice Palencia NP Work Phone: ana [facility] HOSPITALYComment on above:Paresthesias (Primary Dx); Joint disease, temporomandibular; Neck pain; Foot pain, bilateral; Abnormal MRI, cervical spine; Bilateral occipital neuralgiaStart: 01-06-2025 End: 11-88-2260mhidelwfglEGRYDI GILLMORNot AvailableStart: 01-06-2025 End: 34-23-2819Zwozbu flowsheetAngesalma Monger [employer] Work Phone: ana SANDUSKYStart: 01-06-2025 End: 52-57-9656Isdqku flowsheetAngesalma Palencia [employer] Work Phone: ana SANDUSKYStart: 01-05-2025 End: 17-58-2997tnzsrubciaWTBPID GILLMORNot AvailableStart: 12-26-2024 End: 07-78-5929zewwfkzpdnCffekm E Braun MD Work Phone: [facility] Work Phone: Start: 12-26-2024 End: 25-89-3219Jvoiwju encounter procedureFernanda Concepcion MD Work Phone: [facility] Work Phone: Start: 12-11-2024 End: 77-32-8709tkuerhjdexNtulog E Braun MD Work Phone: [facility] Work Phone: Start: 12-11-2024 End: 13-88-6992Xgvjtdq encounter Nguyễn Concepcion MD Work Phone: [facility] Work Phone: Start: 11-14-2024 End: 09-42-2352cvcubpypuaBswhji E Braun MD Work Phone: [facility] Work Phone: Start: 11-14-2024 End: 44-32-0238Eztxoss encounter Nguyễn Concepcion MD Work Phone: [facility] Work Phone: Start: 84-27-4070Vnk-patient / Non-visitFernanda Concepcion MD Work Phone: [facility] Work Phone: Start: 11-05-2024 End: 01-73-1936Yycztsl encounter Nguyễn Concepcion MD Work Phone: [facility]-MRI Main [place] Work Phone: Start: 11-05-2024 End: 44-57-6063zzlnsxofmcHozagd E Braun MD Work Phone: [facility] Work Phone: Start: 88-09-8254Octjgoltkr RecurringFernanda Concepcion MD Work Phone: [facility] Acute Work Phone: Start: 10-03-2024 End: 53-75-9711kbdspusqqkBemrwr E Braun MD Work Phone: [facility] Work Phone: Start: 10-03-2024 End: 16-83-6618Whajhim encounter Ngyuễn Concepcion MD Work Phone: [facility] Work Phone: Start: 39-08-9682Pdvavnozvq Luna Concepcion MD Work Phone: [facility] Work Phone: Start: 08-20-2024 End: 44-67-6661Rmjwtai encounter Nguyễn Concepcion MD Work Phone: [facility] Work Phone: Start: 14-35-3035Eliohkwdid Luna Concepcion MD Work Phone: [facility] [place] [facility] Work Phone: Start: 08-04-2024 End: 08-40-8707atlncgvdgjNyggur E Braun MD Work Phone: [facility] Work Phone: Start: 08-04-2024 End: 96-88-9054Bcvbxtc encounter Nguyễn Concepcion MD Work Phone: [facility] Amb[facility] Work Phone: Start: 07-22-2024 End: 50-63-0441Bdomygq encounter procedureMD Fernanda Concepcion Work Phone: [facility]-XRay [facility] Work Phone: Start: 07-22-2024 End: 06-17-5911yiesvfoeiiGW Marcia E Braun Work Phone: [facility] Work Phone: Start: 07-17-2024 End: 63-66-6384Fbebkz outpatient visit 15 minutesStevan Alicia MD Work Phone: NOZJ SWS OBComment on above:Mood swings; Vaginal itching; Vaginal discharge; Cysts of both ovaries; Abnormal CBC; Iron deficiency anemia, unspecified iron deficiency anemia type; Insomnia, unspecified typeStart: 07-16-2024 End: 32-59-9404submtcwdneQswmot E BraunFacility:[facility] Centertart: 07-16-2024 End: 71-07-0774Uxxmivgysc Luna Concepcion MD Work Phone: [facility] Start: 06-25-5209Logbcjgbgy RecurringMD Fernanda Concepcion Work Phone: [facility] Start: 07-14-2024 End: 38-15-8417Mtwykjwgl encounterStevan Alicia MD Work Phone: noms SWS OBStart: 07-14-2024 End: 55-43-9136hjctxhvpyyTU Fernanda Jimenez Jamey Work Phone: [facility] Work Phone: Start: 07-14-2024 End: 16-93-1382Gqqrbtd encounter procedure Fernanda Jamey Work Phone: [facility] Work Phone: Start: 07-10-2024 End: 07-74-4313Hckzgn OnlyStevan Alicia MD Work Phone: noms SWS OBComment on above:Chronic vulvitis (Primary Dx)Start: 97-38-3889Aywtxczomh Recurring Fernanda Jamey Work Phone: [facility] Start: 07-03-2024 End: 78-08-8235Dwfuaxl encounter statusStevan Alicia MD Work Phone: noMS HealthcareStart: 07-03-2024 End: 42-97-4083Wqourpuv 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 est patient 40-64yrsPcecelia Alicia MD Work Phone: noms SWS OBComment on above:Amenorrhea (Primary Dx); Encounter for screening mammogram for malignant neoplasm of breast; Screening for malignant neoplasm of cervix; Encounter for gynecological examination without abnormal finding; History of endometrial ablation; Hx of ovarian cyst; Vaginal discharge; Thyroid disorder screeningStart: 07-01-2024 End: 21-78-2096Hyjcxi outpatient visit 25 minutesLealvin Parker David DO Work Phone: noms PULMComment on above:Chronic obstructive pulmonary disease, unspecified COPD type (CMS/HCC) (Primary Dx); Cigarette smokerStart: 07-01-2024 End: 23-47-2672Commhc [employer] OrganizationTelly Parker [employer] Work Phone: noms PULMStart: 07-01-2024 End: 63-58-3288Qjcmcf [employer]Marta Parker [employer] Work Phone: noms PULMStart: 06-25-2024 End: 17-75-5853sebwqrrmadPJ Fernanda Concepcion Work Phone: [facility] Work Phone: Start: 06-25-2024 End: 29-14-5961Cgkjsxw encounter procedureMD Fernanda Concepcion Work Phone: [facility] Work Phone: Start: 21-03-9241Lkroxoqleg RecurringMD Fernanda Concepcion Work Phone: [facility] Start: 05-13-2024 End: 09-52-2749ttzkdcemsdQE Fernanda Concepcion Work Phone: [facility] Work Phone: Start: 05-13-2024 End: 61-45-0645Zlhumbn encounter procedureMD Fernanda Concepcion Work Phone: [facility] [place] [place] [facility] Work Phone: Start: 05-07-2024 End: 61-13-0068Riy-admission assessmentThmarylu Thao [facility] Start: 35-30-0792Lbgpjhi encounter statusMD Fernanda Concepcion Work Phone: [facility] Centertart: 04-01-2024 End: 55-51-4272ftgwedefvsPZ Fernanda Jimenez Concepcion Work Phone: [facility] Work Phone: Start: 04-01-2024 End: 53-99-7318Nkkdtwtwn for general adult medical examination without abnormal findingsMD Fernanda Concepcion Work Phone: [facility] Centertart: 04-01-2024 End: 44-51-3167Hzcawhx encounter procedure Fernanda Concepcion Work Phone: [facility] Work Phone: Start: 03-26-2024 End: 10-22-8834Gahosrj encounter procedureTad Thao [facility] Start: 03-18-2024 End: 14-18-3368xgxxczoezkWP Marcia E Braun Work Phone: [facility] Work Phone: Start: 03-18-2024 End: 41-05-8500Flhvvix encounter procedureMD Fernanda Concepcion Work Phone: [facility] Work Phone: Start: 03-17-2024 End: 43-18-2805Ejakcsd encounter procedure Fernanda Concepcion Work Phone: [facility]-Digestive Health Work Phone: Start: 03-17-2024 End: 14-61-4970apsscjwhsyHG Fernanda Jimenez Concepcion Work Phone: [facility] Work Phone: Start: 03-14-2024 End: 58-72-0922wcwsrjrywxJSNH NONEFacility:FTMCStart: 03-14-2024 End: 08-23-2267Arrmphh encounter Nae Delgado [facility] Start: 91-73-9101Ddn-patient / Non-visitMD Fernanda Concepcion Work Phone: [facility] Work Phone: Start: 26-25-6865Dzx-patient / Non-visitMD Fernanda Concepcion Work Phone: [facility] Work Phone: Start: 03-04-2024 End: 43-10-2674Rxtkxesle to same day surgery centerMD Fernanda Concepcion Work Phone: [facility] Work Phone: Start: 03-04-2024 End: 51-04-8951mgsmcbfgnzKasa AsaadFacility:[facility] Start: 02-12-2024 End: 21-96-1456magflmzxvhTT Fernanda Concepcion Work Phone: [facility] Work Phone: Start: 02-12-2024 End: 18-33-6668Aykrzkp encounter procedureMD Fernanda Concepcion Work Phone: [facility] [place] [facility] Work Phone: Start: 02-06-2024 End: 61-61-6869ikzaoxdbgvAzrs D. ChristoffersonFacility:FTMCStart: 02-06-2024 ambulatoryGirma PedrozaersonFacility:FTMCStart: 02-06-2024 End: 81-35-2271Rwvmjff encounter Nae Delgado [facility] Start: 01-30-2024 End: 03-26-0632gsorynzjvsDXJSHDN COLLINSFacility:FTMCStart: 01-30-2024 End: 87-96-3301Cpsiaca encounter procedureGirma Delgado [facility] Start: 01-29-2024 End: 20-31-4271rvzlhspkykMB Fernanda Concepcion Work Phone: [facility] Work Phone: Start: 01-29-2024 End: 94-39-1690Zlfdwpxhvr RecurringMD Fernanda Concepcion Work Phone: [facility] Start: 01-08-2024 End: 21-72-8190rsfezsilliAM Fernanda Concepcion Work Phone: [facility] Work Phone: Start: 01-08-2024 End: 06-31-2892Flekfvk encounter procedureMD Fernanda Concepcion Work Phone: [facility] [place] [facility] Work Phone: Start: 60-93-6170Xibeswkyfw RecurringMD Fernanda Concepcion Work Phone: [facility] [facility] Start: 12-28-2023 End: 91-33-5871apadqscssbXZ Fernanda Concepcion Work Phone: [facility] Work Phone: Start: 12-28-2023 End: 57-47-0734Nkczgdq encounter procedureMD Fernanda Concepcion Work Phone: [facility] Work Phone: Start: 50-51-8374Lzmotjrcnm RecurringMD Fernanda Concepcion Work Phone: [facility] Therapy Start: 12-25-2023 End: 17-41-0740Forwzbg encounter procedureMD Fernanda Concepcion Work Phone: [facility] Work Phone: Start: 12-10-2023 End: 57-02-1301ytkqygwlcmAF Fernanda Concepcion Work Phone: [facility] Work Phone: Start: 12-10-2023 End: 98-50-4613Rsgphhe encounter procedure Fernanda Concepcion Work Phone: [facility] Work Phone: Start: 12-04-2023 End: 59-96-9918hqxofgkxdsVP Fernanda Jimenez Jamey Work Phone: [facility] Work Phone: Start: 12-04-2023 End: 97-99-5067Oxinduz encounter procedure Fernanda Concepcion Work Phone: [facility] [place] [facility] Work Phone: Start: 11-22-2023 End: 76-54-6728Fbiqyov encounter procedureMD Ferreiraia Concepcion Work Phone: [facility] Work Phone: Start: 82-87-0161Pmn-patient / Non-visit Fernanda Jamey Work Phone: [facility] Work Phone: Start: 10-26-2023 End: 44-78-7122Yfgydq outpatient visit 15 minutesFredric H Jose DO Work Phone: [facility]I [facility] GENSComment on above:Right upper quadrant pain (Primary Dx)Start: 10-23-2023 End: 93-79-9904lbrzeuhbzmHK Fernanda Barbara Jamey Work Phone: [facility] Work Phone: Start: 10-23-2023 End: 87-33-5478Otpagpo encounter procedureMD Ferreiraia Jamey Work Phone: [facility] Work Phone: Start: 10-08-2023 End: 50-37-3302bkxjcpmrflOE Fernanda Jimenez Concepcion Work Phone: [facility] Work Phone: Start: 10-08-2023 End: 41-08-1080Edcjpvk encounter procedureMD Fernanda Concepcion Work Phone: [facility]-Lab [facility] [place] Work Phone: Start: 85-30-5755Nltegnlin encounterMarnicoa Adams [facility] Hospitaltart: 09-14-2023 End: 47-32-1484gjjyuxgbkeOL Fernanda Barbara Concepcion Work Phone: [facility] Work Phone: Start: 09-14-2023 End: 76-24-2883Oppvtvz encounter procedureMD Fernanda Concepcion Work Phone: [facility]-Lab [facility] [place] Work Phone: Start: 09-13-2023 End: 73-26-3656tdqteyvvbsThzqlp Braun Other [employer] Other Start: 84-01-5329Vvbxukvad encounterMarcastillo Lamas [facility] Hospitaltart: 09-05-2023 End: 87-13-7256qjgelrnfxrRK Fernanda Concepcion Work Phone: [facility] Work Phone: Start: 09-05-2023 End: 75-78-1800Vhgbsqr encounter procedureMD Fernanda Concepcion Work Phone: [facility]-Nuc [facility] [place] Work Phone: Start: 09-04-2023 End: 50-61-5918bchdmwzdekFmeix Bailey Other [employer] Other Start: 21-58-1360Pthuyp outpatient visit 15 minutes Prashant Christensen OrthopedicsStart: 09-04-2023 End: 52-19-5013Zlpwggd encounter procedureMD Fernanda Concepcion Work Phone: [facility]-XRay [facility] Start: 64-76-2272Awcyldj encounter procedureMD Fernanda Concepcion Work Phone: [facility]-Start: 08-31-2023 End: 42-25-9482grkbruivonSU Fernanda Concepcion Work Phone: [facility] Work Phone: Start: 08-31-2023 End: 40-94-2925Jcdrpda encounter procedureMD Fernanda Jamey Work Phone: [facility]-Ultrasound [place] Work Phone: Start: 08-27-2023 End: 74-56-7062twjlkcnzajFU Fernanda E Jamey Work Phone: [facility] Work Phone: Start: 08-27-2023 End: 51-46-8581Kmopwinpcw RecurringMD Fernanda Concepcion Work Phone: [facility]-Physical Therapy [address] RdStart: 44-98-5421Qvmquhdowa Recurring Fernanda Concepcion Work Phone: [facility]-Physical Therapy [address] RdStart: 08-24-2023 End: 03-39-5661tgqhknvgtpDdjpsu Braun Other [employer] Other Start: 42-41-3033Itibwbasq encounterFernanda Lamas [facility] ClinicStart: 08-20-2023 End: 32-48-5861dvlkxxnzydWhmovk Braun Other [employer] Other Start: 53-84-7872Wbivao outpatient visit 15 minutes Fernanda Lamas [facility] ClinicStart: 08-20-2023 End: 70-49-9767Xmhazmh encounter procedureMD Fernanda Concepcion Work Phone: [facility] Work Phone: Start: 08-06-2023 End: 77-46-2431wyglmmnfmdVU Fernanda Concepcion Work Phone: [facility] Work Phone: Start: 08-06-2023 End: 83-48-2604Rrybree encounter procedureMD Fernanda Concepcion Work Phone: [facility]-Electrodiagnostics Work Phone: Start: 08-01-2023 End: 83-05-5693Qhdgqrr encounter procedureMD Fernanda Concepcion Work Phone: [facility]-CT Scan [place] Work Phone: Start: 56-38-9581Myoimmiowt RecurringMD Perdomo Concepcion Work Phone: [facility]-Physical Therapy [facility] Hospitalt[facility]: 07-18-2023 End: 60-92-0448cxdtziwezoSjgmgr Zaky Other [employer] Other Start: 92-26-4383Jmfptt consultation new/estab patient 60 minSherif ZakyFPG Pain ManagementStart: 07-18-2023 End: 11-15-7923Ptxiqto encounter procedure Fernanda Concepcion Work Phone: [facility] Work Phone: Start: 07-13-2023 End: 32-76-6963knqckudlcxLfmfkh Braun Other [employer] Other Start: 61-38-0915Zglnkrmti encounterMarcastillo Lamas [facility] Hospitaltart: 07-03-2023 End: 85-02-4346zlrwxcakeuVdasap Braun Other [employer] Other start: 31-35-0130Elmjnbgay encounterMarcia JameyMarietta Osteopathic Clinic ClinicStart: 17-20-9845zyveyjqswfZT-C GIANNA Jimenez PERRYFacility:EU [place]uskyStart: 65-47-7442ixqqjefmbrDW-C GIANNA Jimenez PERRYFacility:[facility] [place] Start: 06-04-2023 End: 76-16-2626unfwmcnsrgGwywiv Braun Other [facility] Other Start: 65-01-5669Yjjtahmdx encounterMarcia JameyMarietta Osteopathic Clinic ClinicStart: 05-31-2023 End: 88-88-4106uzvpgbgdtrLognyh Braun Other [employer] Er[employer] Other Start: 72-64-5816Tzccouyrz encounterMarcikatie [facility] ClinicStart: 97-55-4423ediwwrnmutAY-C GIANNA Jimenez PERRYFacility:EU [place]kyStart: 05-25-2023 End: 18-65-3297tydekpifdfGS Marcia E Braun Work Phone: [facility] Work Phone: Start: 05-25-2023 End: 26-22-4933Vhbebum encounter procedure Fernanda Jamey Work Phone: [facility]-Lab [place] Work Phone: Start: 05-16-2023 End: 71-75-8654jnmjibwvhbNS-C GIANNA Jimenez PERRYFacility:EU [place]kyStart: 05-16-2023 End: 33-74-7917Zlmpzsb encounter procedureJENNIFER E EJ [facility] Start: 05-11-2023 End: 58-08-0912dszgmptbtkHtzntz Braun Other [employer] Other Start: 89-45-5275Dwnzcmf evaluation of patient and reportFernanda [facility] Medical ClinicStart: 46-35-6650Jvzhwwfzu encounter Fernanda [facility] ClinicStart: 05-09-2023 End: 26-02-9687lmlkgkxvbiCM-C GIANNA KAPLANFacility:EU [place]kyStart: 05-09-2023 End: 64-87-8218Yzqovgp encounter procedureJENNIFER E EJ [facility] Start: 33-21-8192yguznnnnurEI-C GIANNA KAPLAN Facility:[facility]Start: 05-02-2023 End: 76-71-7632ifzdecjoakAE-C GIANNA Jimenez PERRYFacility: [place]Start: 05-02-2023 End: 24-82-8859Ytazsqv encounter procedureJENNIFER E EJ [facility] Start: 04-25-2023 End: 30-64-8172vzueszhottWU-C GIANNA Jimenez PERRYFacility:[facility] HospitaluskyStart: 04-25-2023 End: 00-72-2603Efglnql encounter procedureJENNIFER E EJ [facility] Start: 04-19-2023 End: 97-82-2346sziajswychAlnukkhj Ball Other [employer] Other Start: 15-12-9925Uskkpljnv encounterBealexanderbharat [facility] ClinicStart: 04-06-2023 End: 46-15-5138sfqrogzimlQE Fernanda E Jamey Work Phone: [facility] Work Phone: Start: 04-06-2023 End: 62-08-9903Sfxxdns encounter procedureMD Fernanda Concepcion Work Phone: [facility] Main [place] Work Phone: Start: 03-30-2023 End: 88-17-7445spjduvququCuwiro Braun Other [employer] Other Start: 12-35-7870Nkcbuwkhm for general adult medical examination without abnormal findingsFernanda [facility]illi[facility] ClinicStart: 67-53-7262Eaydkraa 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 est patient 40-64yrsMarcia JameyJuly Gilliam [facility] ClinicStart: 02-23-2023 End: 03-64-3128qmhgyruqjyJmcqud Braun Other [employer] Other Start: 38-52-4448Hfbwrq outpatient visit 15 minutes Fernanda Gilliam [facility] ClinicStart: 12-25-2022 End: 88-69-9993zztssdlgopObbpen Braun Other [employer] Other Start: 46-59-7298Ntrqyiyxu encounterFernanda Gilliam [facility] ClinicStart: 12-21-2022 End: 41-14-3209crmhctqdvoUV FERNANDA CONCEPCIONFacility:C6Viwak: 12-18-2022 End: 21-17-9942gamfiisnazBkpuqx Braun Other [employer] Other Start: 50-23-0535Fxcpjm outpatient visit 25 minutes Fernanda Gilliam [facility] ClinicStart: 12-14-2022 End: 90-57-2903aihziwcaxvRA VIKRAM OSUNAFacility:A2Rrxjc: 12-12-2022 End: 58-03-2860Khjpxvw encounter procedureJENNIFER E EJ [facility] start: 12-06-2022 End: 39-86-6674jdjtqttihsMF FERNANDA CONCEPCIONFacility:V0Eggim: 11-14-2022 End: 04-99-0310blzgfgnblbIfmyzi Braun Other [facility] Other Start: 97-96-7468Mfuwtle evaluation of patient and reportMarcastillo ConcepcionMarietta Osteopathic Clinic ClinicStart: 19-08-9832Lfshaipaj encounter Fernanda JameyMarietta Osteopathic Clinic ClinicStart: 11-06-2022 End: 46-13-3890wacfrptnjrOKEZAI RODRIGUEZ .[employer] Other Start: 10-31-2022 End: 09-11-3462xagmtatknrPX CATHRYN LAMBERTFacility:H0Oczxp: 10-11-2022 End: 01-69-7674iohufjyatwVgwivm Braun Other [facility] Other Start: 95-34-3636Urmxuwacm encounterFernanda ConcepcionBANNER [facility] Mane [facility] ClinicStart: 09-28-2022 End: 33-11-3734xnudlqkdchRE FERNANDA CONCEPCIONFacility:C0Bwrll: 09-20-2022 End: 75-99-5709gmmdtnrundJM Stevan Alicia Work Phone: [facility] Work Phone: Start: 09-20-2022 End: 98-71-0217Jlostfyfpt RecurringMD Stevan Alicia Work Phone: [facility]-Cancer Center Work Phone: Start: 08-17-2022 End: 50-37-3218Qcifruv encounter procedureRobert Ashish HARRIS [facility] Start: 89-95-5475Btgxm health examinationBenbharat Gilliam Other [employer] Other Start: 19-30-2519Xjanlzbkq for general adult medical examination without abnormal findingsFernanda Concepcion Other [employer] Other Start: 07-27-2022 End: 88-57-7698eezbozjqifTI MARCIA E BRAUNFacility:I2Jzuvr: 04-26-2022 End: 17-04-1949Mfrefzmn ReferredPHYSICIAN [facility]-Lab Main CampusStart: 23-15-9609jfrxewcwfgWA FERNANDA CONCEPCIONFacility:B9Aeltd: 45-00-7190Rjpswelcd for general adult medical examination without abnormal findingsDR FERNANDA Harden [facility]Start: 03-28[facility]2022 End: 36-02-8286lenbwwqjbwII MARCIA E BRAUNFacility:B3Zjaxc: 03-28-2022 End: 49-91-9363Oosjvpqwd for general adult medical examination without abnormal findingsDR FERNANDA CONCEPCIONFacility:Z1Hgwae: 02-09-2022 End: 26-68-0468powbfjejwtYF MARCIA E BRAUNFacility:H1 Procedures DateProcedureProcedure DetailPerforming ClinicianStart: 55-29-0874Bxrjc chest X-rayFernanda Concepcion MD Work Phone: Start: 20-61-6610BL SPLINTING / CASTING / STRAPPING Markel Yanez LPNStart: 35-31-6947Plkdk foot complete minimum 3 viewsRachel L Lexis FRIED CAKE MAKER Work Phone: Start: 14-68-9452Hakoqcrunctbyeeo antigen ceaStevan Alicia MD Work Phone: start: 16-52-0773Wqwhejmmgyz tumor antigen quantitative ca 125Stevan Alicia MD Work Phone: start: 69-08-1399PON, APT HPV,RFX 16/18,45Stevan Alicia MD Work Phone: start: 90-11-0830CMS of headFernanda Concepcion MD Work Phone: Start: 44-49-4611K-ray of thoracic spine, three views MD Fernanda Concepcion Work Phone: Start: 73-70-4443Xuwxt dip stick/tablet rgnt non-auto w/o micrscpPenolkatie Alicia MD Work Phone: start: 52-80-6788Cblnatq endoscopyMD Fernanda Concepcion Work Phone: Start: 88-02-3901ClotquavuxbthgcyneeckptbnwMG Fernanda Concepcion Work Phone: Start: 22-36-3090Vptuureneoib gastric emptying studyMD Fernanda Concepcion Work Phone: Start: 57-10-8402Xhdzgncomyba imaging of liver and/or biliary tract using radioactive isotopeMD Fernanda Concepcion Work Phone: Start: 00-79-3452Vjiz fast bacilli cultureMD Fernanda Concepcion Work Phone: Start: 14-71-7607Valgai Culture Result 2MD Fernanda Concepcion Work Phone: Start: 22-02-6877Hdqysn Culture Result 3MD Fernanda Concepcion Work Phone: Start: 16-96-6562Xmodpz Culture Result 4MD Fernanda Concepcion Work Phone: Start: 03-80-8882Wdesrvgczfhyx of transfusion reaction MD Fernanda Concepcion Work Phone: Start: 29-44-7376Dlpudvoc cultureMD Fernanda Concepcion Work Phone: Start: 91-06-3231Mfphrlti SusceptibilityMD Fernanda Concepcion Work Phone: Start: 75-07-0821DK bone scan whole bodyMD Fernanda Concepcion Work Phone: Start: 13-16-8041Zyztt X-ray of right handMD Fernanda Concepcion Work Phone: Start: 96-56-4021TT scan of gallbladderMD Fernanda Concepcion Work Phone: Start: 52-97-2987FX of chest without contrastMD Fernanda Concepcion Work Phone: Start: 92-42-0453TZ pre/post mri xrayMD Fernanda Concepcion Work Phone: Start: 04-92-3855MNX of cervical spine without contrastMD Fernanda Concepcion Work Phone: Start: 39-34-5733CviactkhayZvihta RICE Start: 59-84-3569Tvjikpdcwpeyjweal with dilation of urethral strictureJENNIFER EJ Start: 94-02-9492GkebabcmpvdMyviaq RICE Start: 95-71-3571OykpsjsxwizuSjmzos RICE Start: 69-28-2127HswcgepvqnTuauop RICE Start: 18-22-0659Babw electrosurgical excision procedureRobert RICE Start: 68-06-2166Yifelcno of fallopian tubeRobert RICE Start: 59-87-2868Gezwjffahr of wisdom toothRobert RICE Screening for malignant neoplasm of colonBenjamin Ball Other Screening for osteoporosisBenjamin Ball Other Plan of Treatment DateCare ActivityDetailAuthorStart: 11-17-2025 End: 09-44-2674Yplhpzy encounter wrxrdlnaq44/03/2026 1:45 PM EST Office Visit [facility] [address] [place] [phone] Marta Hernandez, DO [address] [place] [address] NUSRAT Kan PulmonologyStart: 07-08-2025 End: 23-77-6063Wlebgel encounter procedureNOMS [facility] OBStart: 07-08-2025 End: 64-72-9824Cvbdonptdpxd / ancillary services managementNOMS [facility] OBStart: 05-21-2025 End: 63-61-4678Fmvzkzd encounter whkrcoigr19/04/2025 3:30 PM EDT Office Visit [facility] [address] [place] [address] Marta Hernandez, DO [address] [place] [address] NOMIrina KILPATRICK PULMStart: 05-19-2025 End: 19-39-4741Mpfbtew encounter yszdljcmw71/02/2025 1:00 PM EDT Office Visit CORRINAIrina OrtezBeaver Bayjuan daniel [facility] [address] [place] [phone] Marta Hernandez, DO [address] [place] [address] ArrivedNUSRAT [place] [facility] Comment on above:ArrivedStart: 04-08-2025 End: 76-13-9167IYD Breast - bilateral screeningBilateral screening mammogram with tomosynthesis Imaging Routine Encounter for screening mammogram for malignant neoplasm of breast Expected: 04/08/2025, Expires: 09/02/2025[facility] Work Phone: comment on above:Expected: 04/08/2025, Expires: 09/02/2025Start: 03-18-2025 End: 39-93-8470Klpypql encounter ahbrfesau01/02/2025 9:30 AM EDT Office Visit EDMUNDO ANDERSON [address] [place] [address] Cathryn Lambert DO [address] [place] [address] EDMUNDO VARELAtart: 03-02-2025 End: 75-19-8165Avzbbkq encounter bsmkmqpnu14/ 8:30 AM EDT Procedure Visit EDMUNDO [place] [address] [place] [phone] Cathryn Lambert, [address] [place] [address] EDMUNDO ORTEZUSKYStart: 02-10-2025 End: 12-83-2851Ymdzupg encounter procedureNOMS PULMComment on above:Arrived Start: 01-19-2025 End: 98-46-0914Chgrydv encounter hmsriinbf27/05/2025 2:45 PM EDT Office Visit NOMS MAURICE LAIRDY [address] [place] [phone] Charles Eli, DO [address] [place] [address] NOMS MAURICE LAIRDYStart: 01-15-2025 End: 57-74-2910Iqazupu encounter dsynrvmjs34/01/2025 3:00 PM EDT Office Visit NOMS PUL [address] [place] [address] Marta Hernandez, DO [address] [place] [address] NOMS PULMStart: 01-12-2025 End: 75-39-9962Nfrewtpx stimulating hormoneFollicle stimulating hormone Lab Routine Asymptomatic menopausal state Expected: 01/12/2025 (Approximate), Expires: 01/12/2026[facility] Work Phone: comment on above:Expected: 01/12/2025 (Approximate), Expires: 01/12/2026Start: 01-12-2025 End: 68-81-9500Ohbvzbc encounter /28/2025 9:15 AM EDT Office Visit [facility] [address] [place] [phone] Stevan Alicia MD [address] [place] [address] NOMS SWS OBStart: 01-06-2025 End: 78-52-2562Zylkiip encounter /22/2025 2:20 PM EDT Office Visit EDMUNDO [place] [address] [facility] [address] [place] [address] Candice Palencia, ANGELICA [address] [place] [address] ArrivedANA EITANYComment on above:ArrivedStart: 01-06-2025 End: 82-60-7472CVU 2 ExtremitiesEMG 2 Extremities Neurology Routine Paresthesias Expected: 01/06/2025 (Approximate), Expires: 01/06/2026[facility] Work Phone: comment on above:Expected: 01/06/2025 (Approximate), Expires: 01/06/2026Start: 01-05-2025 End: 73-26-3615Pwumnmw encounter ciwhtnetv10/21/2025 9:15 AM EDT Office Visit [facility] [address] [place] [phone] Stevan Alicia MD [address] [place] [address] [facility] OBStart: 01-05-2025 End: 45-15-5115Ysjpsipgxwiq / ancillary services yzwnxoepbv95/21/2025 8:30 AM EDT Ancillary Procedure [facility] [address] [place] [phone] [facility] OBStart: 01-01-2025 End: 99-46-9343Qcaipie encounter yyexdhiut42/17/2025 2:00 PM EDT Office Visit [facility] [address] [place] [address] Marta Hernandez, [address] [place] [address] NOMS PULMStart: 71-86-9958Nxjczwu referralPike Community Hospital Work Phone: Start: 11-14-2024 End: 65-92-8882Vbqxijz encounter hhaghinbp11/28/2025 9:35 AM EST Office Visit [facility] LENI [facility] [address] [place] [address] Connie Zapata, LICENSED AND CERTIFIED MIDWIFE-UI LEAD DEVELOPER [address] [place], [place] [address] NOMS LENI DERMStart: 08-19-2024 End: 96-72-8336OvxofgwfnUniversity Hospitals Beachwood Medical Centertart: 70-41-8653HitdyjwdoUniversity Hospitals Beachwood Medical Centertart: 54-79-0254XnffkuewdUniversity Hospitals Beachwood Medical Centertart: 08-11-2024 End: 17-83-2049HI Chest WO contrastCT chest wo IV contrast Imaging Routine Chronic obstructive pulmonary disease, unspecified COPD type (CMS/HCC) Expected: 08/11/2024, Expires: 07[facility]/2025[facility] Work Phone: comment on above:Expected: 08/11/2024, Expires: 07/01/2025Start: 94-04-9747CejkaxjzhUniversity Hospitals Beachwood Medical Centertart: 08-08-2024 [facility] Centertart: 21-03-4184Bjmiyujhpa free [Mass/volume] in Serum or PlasmaUniversity Hospitals Beachwood Medical Centertart: 07-17-2024 End: 90-00-2636Cjkhzhr encounter bcccrjtfe40/31/2024 8:15 AM EDT Office Visit [facility] [address] [place] [address] Stevan Alicia MD [address] [place], [place] [address] NOMS SWS OBStart: 07-03-2024 End: 60-89-1301Exlpwlx encounter otxfesdym20/17/2024 2:45 PM EDT Office Visit [facility] [address] [place] [phone] Stevan Alicia MD [address] [place] [address] [facility] OBStart: 07-03-2024 End: 13-34-5452Nmfkrifbzgzlz metabolic 2000 panel - Serum or PlasmaComprehensive metabolic panel Lab Routine Amenorrhea Expected: 07/03/2024 (Approximate), Expires: 07/03/2025NOMS HealthcareComment on above:Expected: 07/03/2024 (Approximate), Expires: 07/03/2025Start: 07-03-2024 End: 72-83-3991Qbdtvtte stimulating hormoneFollicle stimulating hormone Lab Routine Amenorrhea Thyroid disorder screening Expected: 07/03/2024(Approximate), Expires: 07/03/2025[facility] HealthcareComment on above:Expected: 07/03/2024 (Approximate), Expires: 07/03/2025Start: 07-03-2024 End: 30-45-4018Bexfj 1996 panel - Serum or PlasmaLipid panel Lab Routine Amenorrhea Expected: 07/03/2024 (Approximate), Expires: 07/03/2025NOMS HealthcareComment on above:Expected: 07/03/2024 (Approximate), Expires: 07/03/2025Start: 07-03-2024 End: 45-90-2426Xbxlipfvhgzy / ancillary services gvqsfmeexy47/17/2024 2:00 PM EDT Ancillary Procedure [facility] [address] [place] [address] [phone] [facility] OBStart: 07-03-2024 End: 82-79-9941Wzsoyvb D 1,25 dihydroxyVitamin D 1,25 dihydroxy Lab Routine Amenorrhea Expected: 07/03/2024 (Approximate), Expires: 07/03/2025NOMS HealthcareComment on above:Expected: 07/03/2024 (Approximate), Expires: 07/03/2025Start: 07-01-2024 End: 07-65-8706Wfakeyn encounter vcnawxpdj18/15/2024 3:15 PM EDT Office Visit [facility] [address] [place] [address] Marta Hernandez, DO [address] [place] [address] ArrivedNOMS PULMComment on above:ArrivedStart: 03-17-2024 [facility]ertart: 34-94-1340FwxrpofqkUniversity Hospitals Beachwood Medical Centertart: 12-20-2023 End: 14-60-4728Lkhurqq encounter otraqcbcu45/04/2024 3:45 PM EDT Office Visit [facility] [address] [place] [address] Marta Hernandez, DO [address] [place] [address] NOMS PULMStart: 12-12-2023 End: 79-33-4739Enipzvs encounter texdcwzlq45/27/2024 9:45 AM EDT Office Visit [facility] [address] [place] [phone] Stevan Alicia MD [address] [place] [address] [facility] OBStart: 12-12-2023 End: 15-29-0215Ymlicjuxwuxs / ancillary services szsmcmfkue82/27/2024 8:30 AM EDT Ancillary Procedure [facility] [address] [place] [address] [facility] OBStart: 11-13-2023 End: 53-73-4232Suhovau encounter krbtpujbc34/27/2024 9:25 AM EST Office Visit [facility] [address] [place] [address] Connie Zapata, LICENSED AND CERTIFIED MIDWIFE-UI LEAD DEVELOPER [address] [place] [address] NOMS SWS DERMStart: 53-78-1335Tvclgesltkeo imaging of liver and/or biliary tract using radioactive isotopeNM hepatobiliary w pharmUniversity Hospitals Beachwood Medical Centertart: 78-73-6191MagsaewhqUniversity Hospitals Beachwood Medical Centertart: 55-21-2436Xzny Fast Bacilli Culture & SmearAcid Fast Bacilli Culture & SmearUniversity Hospitals Beachwood Medical Centertart: 19-01-9244Pcddmw Culture Result 1Fungal Culture Result 1FWayne Hospitaltart: 82-37-7740Uyanonpm CultureMycology CultureHighland District Hospital Start: 47-30-8246Svxneysa cultureFungal Culture Result [address] [place], [place] [address]tart: 38-89-1689Raepsbykg culture of sputumUniversity Hospitals Beachwood Medical Centertart: 67-80-7035LzycjswneUniversity Hospitals Beachwood Medical Centertart: 38-88-4354CY bone scan whole bodyNM bone scan whole bodyUniversity Hospitals Beachwood Medical Centertart: 14-62-7302TdwxpygleUniversity Hospitals Beachwood Medical Centertart: 69-39-0353JufaytsuiUniversity Hospitals Beachwood Medical Centertart: 79-52-8664PclrfgargUniversity Hospitals Beachwood Medical Centertart: 31-70-7802TolpgtryjUniversity Hospitals Beachwood Medical Centertart: 37-60-3673KuuhrjlewUniversity Hospitals Beachwood Medical Centertart: 29-78-8007DdnxcoilgHighland District HospitalBacteria identified in Unspecified specimen by Aerobe culture [facility] HospitalCBC panel - Blood by Automated countCBC Lab Routine Amenorrhea Ordered: 07/03/2024[facility] HospitalComment on above:Ordered: 07/03/2024efuroxime free [Mass/volume] in Serum or PlasmaHighland District HospitalComprehensive metabolic 2000 panel - Serum or PlasmaHighland District HospitalEndomysial antibody IgA levelHighland District HospitalEstradiolEstradiol Lab Routine Amenorrhea Ordered: 07/03/2024[facility] HealthcareComment on above:Ordered: 07/03/2024Ferritin [Mass/volume] in Serum or PlasmaHighland District HospitalFungus identified in Unspecified specimen by CultureHighland District HospitalGliadin peptide IgA Ab [Units/volume] in [facility] HospitalGliadin peptide IgG Ab [Units/volume] in [facility] HospitalHSV NAAHSV CATRACHITO Lab Routine Vaginal discharge Ordered: 07/03/2024[facility] HealthcareComment on above: Ordered: 07/03/2024IgA [Mass/volume] in Serum or PlasmaHighland District HospitalMayo miscellaneous testMayo miscellaneous test Lab Routine Vaginal discharge Ordered: 07/03/2024[facility] HealthcareComment on above:Ordered: 07/03/2024Microscopic observation [Identifier] in Unspecified specimen by Gram stainHighland District HospitalMicroscopic observation [Identifier] in Unspecified specimen by SmearHighland District HospitalMycobacterium sp identified in Unspecified specimen by Organism specific cultureHighland District HospitalNuSwab Vaginitis Plus (VG+)NuSwab Vaginitis Plus (VG+) Microbiology Routine Vaginal discharge Ordered: 07/03/2024[facility] HealthcareComment on above:Ordered: 07/03/2024atient EducationColon polyps Hemorrhoids (DC) Gastritis (DC) Know your [facility] Work Phone: [facility] referralP[facility] Hospital Work Phone: SENDOUT TEST MISCELLANEOUS LABCORPSENDOUT TEST MISCELLANEOUS [facility]ABCORP Lab Routine Screening for malignant neoplasm of cervix Encounterfor gynecological examination without abnormal finding Ordered: 07/03/2024[facility] HospitalComment on above:Ordered: 07/03/2024Tissue transglutaminase IgA Ab [Units/volume] in [facility] Tissue transglutaminase IgG Ab [Units/volume] in [facility] HospitalXR Foot - right GE 3 [facility] Health AdministrationXR Thoracic spine 3 [facility] Immunizations Immunization DateImmunizationNotesCare BqnygkuePtyeukya35-71-8021zftazvqno virus vaccine, split virus (incl. purified surface antigen)Charles Gilliam Other [place] [facility] Other 09-749584-73-4917pksgrqsov virus vaccine, unspecified formulationRobert RICE [facility]09-07-2022Influenza, injectable, Madin Austin Canine Kidney, preservative free, quadrivalentFredric Itzkowitz DO Work Phone: [facility] HospitalTgcdjxcbrp76-42-9191pvxqkkpcj virus vaccine, split virus (incl. purified surface antigen)Charles Ball Other [facility] Other 08-563279-97-8035nvchunxvi virus vaccine, unspecified formulationRobert RICE [facility]08-30-2021influenza, injectable, quadrivalent, preservative freeFredric Itzkowitz DO Work Phone: [facility] HospitalQwyfmlfewi97-65-5070bnvgmwu toxoid, reduced diphtheria toxoid, and acellular pertussis vaccine, adsorbedRobert RICE [facility]09-24-2019influenza virus vaccine, unspecified formulationRobert RICE [facility]09-24-2019influenza, injectable, quadrivalent, preservative freeFredric Itzkowitz DO Work Phone: [facility] HospitalGkonqicrpm73-02-2149kjvguitxu virus vaccine, unspecified formulationRobert RICE [facility]12-15-2018Influenza, injectable, Madin Austin Canine Kidney, preservative free, quadrivalentFredric Itzkowitz DO Work Phone: [facility] HospitalIbcqzkyirh35-22-9099oqcitsjrk, injectable, quadrivalent, preservative freeFredric Itzkowitz DO Work Phone: [facility] HospitalObzbhtqttk41-05-6702fwqceqxwg virus vaccine, unspecified formulationRobert RICE [facility] [place] 487540-04-2016influenza, injectable, quadrivalent, preservative freeFredric Itzkowitz DO Work Phone: [facility] HospitalEhnrhcrllq86-79-2484ogefjne and diphtheria toxoids, adsorbed, preservative free, for adult use (5 Lf of tetanus toxoid and 2 Lf of diphtheria toxoid)Charles Ball Other [facility] Payers DatePayer CategoryPayerPolicy [id number]-[id number] [id number] [employer] [place] [id number] 2021-Present [address] [place] [id number] 2021Medicaid (Managed Care)[employer] [employer] [id number] 11.02.840.1.229663.3.57[id number] .840.1.296821.3.57[id number] 2.16.840.1.302284.3.57[id number] 2.16.840.1.217256.3.579.[id number] 2.16.840.1.466486.3.579.2.88662-82-5123Nxdsxvk4852147 2.16.840.1.279605.3.579.2.71913-56-7614Alpsvpr1441899 2.16840.1.761981.3.579.2.08285-34-7992Zywsxxo2627504 2.16.840.1.663177.3.579.2.47535-76-1202Fxbcubl7811730 2.840.1.803085.3.579.2.02863-00-5338Ovncooy2740361 2.840.1.830449.3.57[id number] 2.840.1.740506.3.579.2.51280-99-9273Cbhohsa55135203 2.840.1.496993.3.579.2.15183-81-9936Axdvkda34249798 2.840.1.616490.3.579.2.62999-72-2196Npisani26327785 2.840.1.471944.3.579.2.07792-71-2525Zlabiwo63575529 2.840.1.714726.3.579.2.60904-38-3594Lduhrnu89494539 2.840.1.303290.3.579.2.27293-64-1065Toeckof99840126 2.840.1.907190.3.579.2.41819-97-1994Zkuxhgq99418136 2.16.840.1.764452.3.579.2.13657-71-5071Eaccgsi47527972 2.16.840.1.457664.3.579.2.18260-70-4328Mjwprco78766884 2.16.840.1.844005.3.579.2.95050-66-1352Loikivp93098323 2.16.840.1.169251.3.579.2.989878-65-5510Iesvlam09652489 2..840.1.975425.3.579.2.997693-07-4041Yoqpfiz36778138 2..840.1.568090.3.579.2.421979-06-4750Zbztzod87164846 2.0.1.398490.3.579.2.851580-63-3555Kabkovh3658213 2.16.840.1.837751.3.579.2.416407-09-9903Dtugyws6122017 2..840.1.113414.3.579.2.254821-53-0030Icdusvr9199447 2..840.1.418887.3.579.2.045441-19-8886Jihlmxz5928117 2.0.1.594267.3.579.2.825459-07-2456Aummxeg2256475 2.840.1.577319.3.579.2.854923-86-0296Eqtrari8279394 2.0.1.866971.3.579.2.1259 [id number]-mrh577515055Vlvvysi [id number] t8m02i33-0vi9-6q13-06ra-50514e88ob9hYixowxj38437681 2.16.840.1.839818.3.579.2.298Mnjzeiv01862236 2.16.840.1.402979.3.579.2.531 Walmstr20554640 2.16.840.1.110182.3.579.2.611Ooirldi73297522 2.16.840.1.945485.3.579.2.998Umkpvay95511174 2.16.840.1.983851.3.579.2.531 Aivqhkx96338301 2.16.840.1.338787.3.579.2.621Vurhstu32154862 2.16.840.1.144696.3.579.2.531 Social History DateTypeDetailFacilityStart: 61-88-8317Jumohaw smoking status NHISCurrent some day smokerUniversity Hospitals Beachwood Medical Centertart: 55-95-8475Avo Assigned At [facility] Hospitaltart: 07-18-2022 End: 00-43-9477Miupnlu smoking status NHISSmoker (finding)[facility] Centertart: 08-09-2022 End: 32-19-8783Ggbastx smoking statusLight tobacco smoker (finding)[facility] BellevueStart: 10-11-2023 End: 73-36-1987Ltc Assigned At [facility] CenterTobacco smoking statusNeverExec[facility] [place] Start: 06-14-2023 End: 72-88-2542Fxuqnor smoking status NHISSmokes tobacco dailyNOMS Healthcare History of tobacco useCigarette SmokerNOMS HealthcareStart: 06-14-2023 End: 05-41-9374Atbmevkbec smoked current (pack per day) - Rairpsrr5SMAZ HealthcareStart: 06-14-2023 End: 39-87-3296Awpjcdy use and exposureSmokeless tobacco non-userNOMS Healthcare Start: 10-11-2023 End: 75-68-6661Vhkstkm intakeLifetime non-drinker (finding)[facility] HealthcareStart: 94-16-2176Impnbppbw84VGJK HealthcareStart: 95-26-4696Efuqeif Commentcaffeine intake: 2-3 cups per day of coffee, soda/popNOMS HealthcareStart: 61-75-7249Vut Assigned At BirthNot on [facility] HealthcareStart: 08-04-2024 End: 23-73-0174XodSxwrpf (finding)[facility] HospitalNEGATED: Highlighted [facility] Medical Equipment Procedure CodeEquipment CodeEquipment Original TextEquipment IdentifierDates Capsule endoscopy, for patency of lumen evaluationVideo capsule endoscopy system ()[id number] FDAStart: 03-17-2024 Goals DatePatient GoalDesired Activity/State Functional Status EuaxFoehcktmhvQwypbcLdecrlnb28-75-5995Osumwaqyol StatusUC Health06-28-2024Functional StatusUC Health05-15-2024 Functional StatusN/AFOhioHealth [facility]08-30-2023Functional StatusN/A [facility]08-23-2023Functional StatusN/AExec[facility]08-16-2023 Functional StatusN/AExec[facility] 04-72-7620Kuygavigdn StatusN/AExec[facility]03-28-2023Functional StatusN/A[facility] Dctxeeka07-78-7182Tagusvvzlu StatusN/AExec[facility] Clinical Notes 07-19-2018 to 06-08-2025 Note Date & GwjaSuprClywuapg93-27-4711 Telephone encounter Note* Telephone Encounter - Debbi Keller LPN - 06/08/2025 10:32 AM EDT asking for refill of Iron polysaccharides 180 mg REMY 01/12/25 last CBC 07/03/24 Hgb 11.1, Hct 33.7 [id number] Miscellaneous Notes* Telephone Encounter - Debbi Keller LPN - 06/08/2025 10:32 AM EDT asking for refill of Iron polysaccharides 180 mg REMY 01/12/25 last CBC 07/03/24 Hgb 11.1, Hct 33.7 documented in this encounterHawthorn [facility] [id number] History of Present illness Narrative* Marta Hernandez, - 05/19/2025 1:00 PM EDT Images from the original note were not included. Katy Banuelos presents today for follow up on COPD. She was last seen several months ago. Since her last office visit she was tried on Trelegy. However the patient does not recall any change inher inhaled medications. She is currently back on Spiriva once daily. She does use albuterol as needed. She does suspect that Trelegy likely was not covered by her insurance. She states her breathingoverall has been stable. She denies any current complaints of increasing shortness of breath at rest or with exertion. She denies any chest pain, palpitations, fevers, chills, sweats, or recent unintentional weight changes. She does have somewhat of a cough. She does feel that this is secondary to sinus drainage and does currently use an neaa-ktu-ljdywfy antihistamine. Also since her last office visit she did decline having her home sleep study performed. She did request a refill on her Spirivaat today's office visit. 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 07/18/2023 Allergies Anemia Anxiety Arthritis of carpometacarpal (CMC) joint of right thumb 12/28/2023 Bipolar II disorder ([facility]) 07/18/2023 Bowel obstruction ([facility]) 1995 Chicken pox Chronic allergic rhinitis 07/18/2023 Chronic maxillary sinusitis Chronic vaginitis 07/18/2023 SANGITA I (cervical intraepithelial neoplasia I) 07/18/2023 Contusion of right foot 12/28/2023 COPD (chronic obstructive pulmonary disease) ([facility]) De Quervain's tenosynovitis, right 12/28/2023 Depression Dysmenorrhea [...] incontinence 07/18/2023 Peroneal tendinitis, right leg 12/28/2023 ([facility] x2 Raynaud's syndrome Restless leg syndrome 12/28/2023 [...] Chronic obstructive pulmonary disease, unspecified COPD type ([facility]) Cigarette smoker COPD -- at this time her breathing is well controlled with use of Spiriva once daily and albuterol as needed. She did request a refill on her Spiriva. This was sent to the pharmacy for at today's office visit. She will continue with her current regimen and follow here in 6 months time unless neededbefore then. Tobacco use -- she does continue to smoke on a daily basis. We did have a 4 minute discussion regarding the importance of smoking cessation at today's office visit. Follow up in about 6 months (around 11/16/2025) for COPD. Marta Hernandez DO documented in this encounterHawthorn Children's Psychiatric [id number] Evaluation note* Diagnosis Onset Date Resolution Status Admit Date 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 ne acuteAugust 2024 10:10amBack pain, thoracicacuteAugust 2024 10:10am Chronic painacuteAugust 2024 10:10amAllodyniaacuteOctober 2024 10:25amDegenerative disc disease, cervicalacuteOctober 2024 10:25am InsomniaacuteOctober 2024 10:25amMigraine headache without auraacute July 06, 2025 10:25amMyalgiaacuteOctober 2024 10:25amNeck painacute July 06, 2025 10:25amParesthesiaacuteOctober 2024 10:25am [facility] Work Phone: 1([phone]) [phone] Evaluation note* Diagnosis Onset Date Resolution Status [...] 2024 9:58amTrigger finger, right index fingeracuteOctober 2024 9:58am [facility] Work Phone: 1(229) 841-818708-06-2025 Evaluation note* Diagnosis Onset Date Resolution Status [...] pain, thoracicacuteOctober 2024 10:13amChronic painacuteOctober 2024 10:13am [facility] Work Phone: 1([phone]) [phone] History of Present illness Narrative* Marta Hernandez, - 02/10/2025 3:45 PM EDT Images from the original note were not included. Katy Elena Banuelos presents today for follow up on COPD. She was last seen 6 months ago. Since herlast office visit she does complain of some shortness of breath. She states this has been worseningover last few months or so. She does also complain of a cough that has increased some as well. She states this is generally productive of hatfield sputum. She denies any current complaints of fevers, chills, or sweats. She does also note that she has been tired quite a bit recently. She has discuss thiswith her primary care provider as well as Hematology. She states some blood work has been ordered by the yacht captain. At her recent appointment she states all [...] for wheezing, Disp: 18 g, Rfl: 11 Vtwvcfrcpge-Qubhkrqni-Pnidty (Trelegy Ellipta) 100-62.5-25 MCG/ACT aerosol powder , Inhale 1 puff Daily, Disp: 1 each, Rfl: 5 Past Medical History: Past Medical History: Diagnosis Date Abdominal pain 12/28/2023 Abnormal Pap smear of vagina Abnormal weight loss Adult celiac disease ([facility]) 12/28/2023 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 07/18/2023 Allergies Anemia Anxiety Arthritis of carpometacarpal (CMC) joint of right thumb 12/28/2023 Bipolar II disorder ([facility]) 07/18/2023 Bowel obstruction ([facility]) 1995 Chicken pox Chronic allergic rhinitis 07/18/2023 Chronic maxillary sinusitis Chronic vaginitis 07/18/2023 SANGITA I (cervical intraepithelial neoplasia I) 07/18/2023 Contusion of right foot 12/28/2023 COPD (chronic obstructive pulmonary disease) ([facility]) De Quervain's tenosynovitis, right 12/28/2023 Depression ([facility]) Dysmenorrhea 07/18/2023 Endometriosis of uterus 08/04/2009 Foot fracture, right 2019 broken right foot Genital herpes simplex 09/22/2009 GERD (gastroesophageal reflux disease) H/O tubal ligation 2008 Headache History of medical problems routine blood donor- every 56 days per pt History of medical treatment 2000 diagnostic lap History of menorrhagia 12/28/2023 HSV-2 infection Hypertension ([facility]) Insomnia, persistent 12/28/2023 Iron deficiency anemia 12/28/2023 [...] Chronic obstructive pulmonary disease, unspecified COPD type ([facility]) - albuterol HFA (ProAir HFA) 90 mcg/act inhaler; Inhale 2 puffs every 4 (four) hours if needed for wheezing - Zuazyrmriga-Brcazxkmt-Duamwt (Trelegy Ellipta) 100-62.5-25 MCG/ACT aerosol powder ; Inhale 1 puffDaily Cigarette smoker COPD -- at this time [...] is no acute changes noted. There was noevidence of masses or nodules. The patient had [...] is now down to under a pack perday. We did have a 4 minute discussion regarding the importance of smoking cessation at today's office visit. Hypersomnolence -- she does complain of some fatigue at today's office visit. She is unsure whetherdemarco has any apneas or snoring as she [...] COPD. Marta Hernandez DO documented in this [facility]05-23-2025 Evaluation note* Diagnosis Onset Date Resolution Status Admit Date Blood donor chronicMay 2024 8:56amHistory of menorrhagiachronicMay 2024 8:56am Iron deficiency anemiachronicMay 2024 8:56amBack pain, thoracicacuteJune 2024 7:59amChronic painacuteJune 2024 7:59amMyalgiaacuteJune 2024 7:59amOther skin changesacuteJune 2024 11:29amAllodyniaacuteJuly 2024 9:29amDegenerative disc disease, cervicalacuteJuly 2024 9:29am InsomniaacuteJuly 2024 9:29amMigraine headache without auraacuteJuly 2024 9:29amMyalgiaacuteJuly 2024 9:29amNeck painacuteJuly 2024 9:29am ParesthesiaacuteJuly 2024 9:29amBack pain, thoracicacuteJuly 2024 10:08amChronic painacuteJuly 2024 10:08amMyalgiaacuteJuly 2024 10:08am Arthritis of carpometacarpal (CMC) joint of right thumbacuteJuly 2024 9:41amArthritis of right handacuteJuly 2024 9:41amDe Quervain's tenosynovitis, rightacuteJuly 2024 9:41amRight wrist painacuteJuly 2024 9:41amToe pain, leftacuteJuly 2024 9:41am [facility] Work Phone: 1([phone] 156-220905-23-2025 Evaluation note* Diagnosis Onset Date Resolution Status Admit Date Blood donor chronicMay 2024 8:56amHistory of menorrhagiachronicMay 2024 8:56am Iron deficiency anemiachronicMay 2024 8:56amBack pain, thoracicacuteJune 2024 7:59amChronic painacuteJune 2024 7:59amMyalgiaacuteJune 2024 7:59amOther skin changesacuteJune 2024 11:29amAllodyniaacuteJuly 2024 9:29amDegenerative disc disease, cervicalacuteJuly 2024 9:29am InsomniaacuteJuly 2024 9:29amMigraine headache without auraacuteJuly 2024 9:29amMyalgiaacuteJuly 2024 9:29amNeck painacuteJuly 2024 9:29am ParesthesiaacuteJuly 2024 9:29amBack pain, thoracicacuteJuly 2024 10:08amChronic painacuteJuly 2024 10:08amMyalgiaacuteJuly 2024 10:08am Arthritis of carpometacarpal (CMC) joint of right thumbacuteJuly 2024 9:41amArthritis of right handacuteJuly 2024 9:41amDe Quervain's tenosynovitis, rightacuteJuly 2024 9:41amRight wrist painacuteJuly 2024 9:41amToe pain, leftacuteJuly 2024 9:41amRight foot painacuteJuly 2024 8:24am [facility] Work Phone: 1([phone]) 155-455105-23-2025 Evaluation note* Diagnosis Onset Date Resolution Status Admit Date Blood donor chronicMay 2024 8:56amHistory of menorrhagiachronicMay 2024 8:56am Iron deficiency anemiachronicMay 2024 8:56amBack pain, thoracicacuteJune 2024 7:59amChronic painacuteJune 2024 7:59amMyalgiaacuteJune 2024 7:59amOther skin changesacuteJune 2024 11:29amAllodyniaacuteJuly 2024 9:29amDegenerative disc disease, cervicalacuteJuly 2024 9:29am InsomniaacuteJuly 2024 9:29amMigraine headache without auraacuteJuly 2024 9:29amMyalgiaacuteJuly 2024 9:29amNeck painacuteJuly 2024 9:29am ParesthesiaacuteJuly 2024 9:29amBack pain, thoracicacuteJuly 2024 10:08amChronic painacuteJuly 2024 10:08amMyalgiaacuteJuly 2024 10:08am Arthritis of carpometacarpal (CMC) joint of right thumbacuteJuly 2024 9:41amArthritis of right handacuteJuly 2024 9:41amDe Quervain's tenosynovitis, rightacuteJuly 2024 9:41amRight wrist painacuteJuly 2024 9:41amToe pain, leftacuteJuly 2024 9:41amBack pain, thoracicacuteJuly 2024 8:24amGERD (gastroesophageal reflux disease)acuteJuly 2024 8:24amInsomnia, persistentacuteJuly 2024 8:24amRight foot painacuteJuly 2024 8:24amTMJ (dislocation of temporomandibular joint)acuteJuly 2024 8:24amWellness examinationacuteJuly 2024 8:24am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neacuteAugust 2024 10:10amBack pain, thoracicacute [place] 2024 10:10amChronic painacuteAugust 2024 10:10am [facility] Work Phone: 1(194) 226-690605-23-2025 [facility] [place] [id number] Note Signed Patient: Katy Banuelos MR#: [id number] : 1975 Acct:[id number] Age/Sex: 50 / F Type: DEP AMB [...] 1 week prior to 6month visit with [employer]. [employer] Treatment Plan Iron Sucrose (Venofer) [...] mg PO BID PRN 30 days vitamin O84-qycvp acid 0.5-1 mg 1 tab PO DAILY Gastrointestinal Is the patient taking opioids for pain control?: No Falls Fall Precaution Measures Taken: Patient in chair Nurse's Note: Patient is here today for a follow up visit and go over labs [facility] Medical History Medical History Raynauds [...] 11:55 5 Hgb 14.4 g/dL (11.8-15.4) 01/27/25 11:01/27/25 Hct 41.5 % (34.0-46.4) 01/27/25 11:55 01/27/25 MCV 101.2 fl (80-100) H 01/27/25 11:55 01/27/25 RDW 13.2 % (11.9-15.3) 01/27/25 11:55 01/27/25 Plt Count 234 x10E3/uL (150-450) 01/27/25 11:55 01/27/25 Iron 151 ug/dL (50-212) 01/27/25 11:01/27/25 Iron Saturation 46.7 % (20-50) 01/27/25 11:55 01/27/25 Ferritin 30.5 ng/mL (11.0-306.8) 01/27/25 11:55 5 Dictated By: JIL Mary DD/ [id number] Signed By: 02/06/[address] [place], [place] [address]261705-02-2025 History of Present illness Narrative * Markel Vicente, [employer] - 01/16/2025 5:30 PM EDT HPI: Historian [...] boot. Ref # [id number] documented in this encounterHawthorn Children's Psychiatric [id number] History of Present illness Narrative* Stevan Alicia [...] though her weight is currently stable. Her retail assistant manager has noted that she chakraborty calories easily. 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 07/18/2023 Allergies Anemia Anxiety Arthritis of carpometacarpal (CMC) joint of right thumb 12/28/2023 Bipolar II disorder ([facility]) 07/18/2023 Bowel obstruction ([facility]) 1995 Chicken pox Chronic allergic rhinitis 07/18/2023 Chronic maxillary sinusitis Chronic vaginitis 07/18/2023 SANGITA I (cervical intraepithelial neoplasia I) 07/18/2023 Contusion of right foot 12/28/2023 COPD (chronic obstructive pulmonary disease) ([facility]) De Quervain's tenosynovitis, right 12/28/2023 Depression ([facility]) Dysmenorrhea 07/18/2023 Endometriosis of uterus 08/04/2009 Foot fracture, right 2019 broken right foot Genital herpes simplex 09/22/2009 GERD (gastroesophageal reflux disease) H/O tubal ligation 2009 Headache History of medical problems routine blood donor- every 56 days per pt History of medical treatment 2000 diagnostic lap History of menorrhagia 12/28/2023 HSV-2 infection Hypertension ([facility]) Insomnia, persistent 12/28/2023 Iron deficiency anemia 12/28/2023 [...] steps yesterday). Valtrex refilled documented in this [facility]04-28-2025 Instructions* Patient Instructions* Stevan Alicia [...] cyst is slightly larger documented in this [facility]04-11-2025 Evaluation note* Diagnosis Onset Date Resolution Status Admit Date Arthritis of carpometacarpal (CMC) joint of right thumb acuteApril 2024 9:40amArthritis of right handacuteApril 2024 9:40am De Quervain's tenosynovitis, rightacuteApril 2024 9:40amRight wrist pain acuteApril 2024 9:40amToe pain, leftacuteApril 2024 9:40amBlood donorchronicMay 2024 8:56amHistory of menorrhagiachronicMay 2024 8:56amIron deficiency anemiachronicMay 2024 8:56amBack pain, thoracicacute Analy 2024 7:59amChronic painacuteJune 2024 7:59amMyalgiaacuteJune 2024 7:59amOther skin changesacuteJune 2024 11:29am [facility] Work Phone: 1([phone]) 979-824704-11-2025 Evaluation note* Diagnosis Onset Date Resolution Status Admit Date Arthritis of carpometacarpal (CMC) joint of right thumb acuteApril 2024 9:40amArthritis of right handacuteApril 2024 9:40am De Quervain's tenosynovitis, rightacuteApril 2024 9:40amRight wrist pain acuteApril 2024 9:40amToe pain, leftacuteApril 2024 9:40amBlood donorchronicMay 2024 8:56amHistory of menorrhagiachronicMay 2024 8:56amIron deficiency anemiachronicMay 2024 8:56amBack pain, thoracicacute February 25, 2025 7:59amChronic painacuteJune 2024 7:59amMyalgiaacuteJune 2024 7:59amOther skin changesacuteJune 2024 11:29amAllodyniaacute March 18, 2025 9:29amDegenerative disc disease, cervicalacuteJuly 2024 9:29amInsomniaacuteJuly 2024 9:29amMigraine headache without auraacuteJuly 2024 9:29amMyalgiaacuteJuly 2024 9:29amNeck painacuteJuly 2024 9:29amParesthesiaacuteJuly 2024 9:29amBack pain, thoracicacuteJuly 2024 10:08amChronic painacuteJuly 2024 10:08amMyalgiaacuteJuly 2024 10:08am [facility] Work Phone: [phone] Evaluation note* Diagnosis Onset Date Resolution Status Admit Date Back pain, thoracic acuteMarch 2024 10:01amEye abnormalitiesacuteMarch 2024 10:01am Insomnia, persistentacuteMarch 2024 10:01amMenopausal flushingacuteMarch 2024 10:01amTMJ (dislocation of temporomandibular joint)acuteMarch 2024 10:01amArthritis of carpometacarpal (CMC) joint of right thumbacuteApril 2024 9:40amArthritis of right handacuteApril 2024 9:40amDe Quervain's tenosynovitis, rightacuteApril 2024 9:40amRight wrist painacute December 26, 2024 9:40amToe pain, leftacuteApril 2024 9:40amBlood donor chronicMay 2024 8:56amHistory of menorrhagiachronicMay 2024 8:56am Iron deficiency anemiachronicMay 2024 8:56am [facility] Work Phone: 1([phone]) [phone] Evaluation note* Diagnosis Onset Date Resolution Status Admit Date Back pain, thoracic acuteMarch 2024 10:01amEye abnormalitiesacuteMarch 2024 10:01am Insomnia, persistentacuteMarch 2024 10:01amMenopausal flushingacuteMarch 2024 10:01amTMJ (dislocation of temporomandibular joint)acuteMarch 2024 10:01amArthritis of carpometacarpal (CMC) joint of right thumbacuteApril 2024 9:40amArthritis of right handacuteApril 2024 9:40amDe Quervain's tenosynovitis, rightacuteApril 2024 9:40amRight wrist painacute December 26, 2024 9:40amToe pain, leftacuteApril 2024 9:40amBlood donor chronicMay 2024 8:56amHistory of menorrhagiachronicMay 2024 8:56am Iron deficiency anemiachronicMay 2024 8:56amBack pain, thoracicacuteJune 2024 7:59amChronic painacuteJune 2024 7:59amMyalgiaacuteJune 2024 7:59am [facility] Work Phone: 1([phone]) [phone] Evaluation note* Diagnosis Onset Date Resolution Status Admit Date Arthritis of carpometacarpal (CMC) joint of right thumb acuteFebruary 2024 9:18amArthritis of right handacuteFebruary 2024 9:18amDe Quervain's tenosynovitis, rightacuteFebruary 2024 9:18amRight wrist painacuteFebruary 2024 9:18amBack pain, thoracicacuteMarch 2024 10:01amEye abnormalitiesacuteMarch 2024 10:01amInsomnia, persistent acuteMarch 2024 10:01amMenopausal flushingacuteMarch 2024 10:01amTMJ (dislocation of temporomandibular joint)acuteMarch 2024 10:01amArthritis of carpometacarpal (CMC) joint of right thumbacuteApril 2024 9:40am Arthritis of right handacuteApril 2024 9:40amDe Quervain's tenosynovitis, rightacuteApril 2024 9:40amRight wrist painacuteApril 2024 9:40amToe pain, leftacuteApril 2024 9:40am [facility] Work Phone: 1([phone]) [phone] Evaluation note* Diagnosis Onset Date Resolution Status Admit Date Arthritis of carpometacarpal (CMC) joint of right thumb acuteJanuary 2024 8:56amArthritis of right handacuteJanuary 2024 8:56amDe Quervain's tenosynovitis, rightacuteJanuary 2024 8:56amRight wrist painacuteJanuary 2024 8:56amArthritis of carpometacarpal (CMC) joint of right thumbacuteFebruary 2024 9:18amArthritis of right handacute November 14, 2024 9:18amDe Quervain's tenosynovitis, rightacuteFebruary 2024 9:18amRight wrist painacuteFebruary 2024 9:18am [facility] Work Phone: 1([phone]) 963-377501-17-2025 Evaluation note* Diagnosis Onset Date Resolution Status Admit Date Arthritis of carpometacarpal (CMC) joint of right thumb acuteJanuary 2024 8:56amArthritis of right handacuteJanuary 2024 8:56amDe Quervain's tenosynovitis, rightacuteJanuary 2024 8:56amRight wrist painacuteJanuary 2024 8:56amArthritis of carpometacarpal (CMC) joint of right thumbacuteFebruary 2024 9:18amArthritis of right handacute November 14, 2024 9:18amDe Quervain's tenosynovitis, rightacuteFebruary 2024 9:18amRight wrist painacuteFebruary 2024 9:18amBack pain, thoracic acuteMarch 2024 10:01amEye abnormalitiesacuteMarch 2024 10:01am Insomnia, persistentacuteMarch 2024 10:01amMenopausal flushingacuteMarch 2024 10:01amTMJ (dislocation of temporomandibular joint)acuteMarch 2024 10:01amArthritis of carpometacarpal (CMC) joint of right thumbacuteApril 2024 9:40amArthritis of right handacuteApril 2024 9:40amDe Quervain's tenosynovitis, rightacuteApril 2024 9:40amRight wrist painacute December 26, 2024 9:40amToe pain, leftacuteApril 2024 9:40am [facility] Work Phone: 1([phone]) 501-790310-31-2024 History of Present illness Narrative* Lise Benavides [...] Pap smear of vagina Adult celiac disease ([facility]) 12/28/2023 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 07/18/2023 Allergies Anemia Anxiety Arthritis of carpometacarpal (CMC) joint of right thumb 12/28/2023 Bipolar II disorder ([facility]) 07/18/2023 Bowel obstruction ([facility]) 1995 Chicken pox Chronic allergic rhinitis 07/18/2023 Chronic maxillary sinusitis Chronic vaginitis 07/18/2023 SANGITA I (cervical intraepithelial neoplasia I) 07/18/2023 Contusion of right foot 12/28/2023 De Quervain's tenosynovitis, right 12/28/2023 Depression ([facility]) Dysmenorrhea 07/18/2023 Endometriosis of uterus 08/04/2009 Foot fracture, right 2019 broken right foot Genital herpes simplex 09/22/2009 H/O tubal ligation 2009 Headache History of medical problems routine blood donor- every 56 days per pt History of medical treatment 2000 diagnostic lap History of menorrhagia 12/28/2023 HSV-2 infection Hypertension ([facility]) Insomnia, persistent 12/28/2023 Iron deficiency anemia 12/28/2023 Menorrhagia with irregular cycle 07/18/2023 Migraine ([facility]) Mixed incontinence 06/30/2024 Mixed stress and urge [...] and insomina. Patient would like biodenticles from [facility], script sent. documented in this [facility]10-31-2024 Instructions* Patient Instructions* Stevan Alicia MD - 07/17/2024 8:15 AM EDT Images from the original note were not included. documented in this [facility]10-28-2024 Telephone encounter Note* Telephone Encounter - Elvia Wheatley - 07/14/2024 10:11 AM EDT . [facility] [id number] Miscellaneous Notes* Telephone Encounter - Elvia Wheatley - 07/14/2024 10:11 AM EDT . documented in this [facility]10-24-2024 History of Present illness Narrative* Stevan Alicia MD - 07/10/2024 2:39 PM EDT Positive culture documented in this encounterHawthorn Children's Psychiatric [id number] History of Present illness Narrative* Stevan Alicia MD - 07/03/2024 2:45 PM EDT Images from the original note were not included. Stevna Alicia MD Obstetrics and Gynecology Patient: Katy [...] of colonoscopy and was referred to a agency director for a vein-like issue near the anal area. The agency director advised her to leave it alone. The [...] and experiences was provided. RT ovary cyst- [id number] 1.3 [id number] 1.6 LT ovary cyst- [id number] 1.2 [id number] 1.06 See chart for report. 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 07/18/2023 Allergies Anemia Anxiety Arthritis of carpometacarpal (CMC) joint of right thumb 12/28/2023 Bipolar II disorder ([facility]) 07/18/2023 Bowel obstruction ([facility]) 1995 Chicken pox Chronic allergic rhinitis 07/18/2023 Chronic maxillary sinusitis Chronic vaginitis 07/18/2023 SANGITA I (cervical intraepithelial neoplasia I) 07/18/2023 Contusion of right foot 12/28/2023 De Quervain's tenosynovitis, right 12/28/2023 Depression ([facility]) Dysmenorrhea 07/18/2023 Endometriosis of uterus 08/04/2009 Foot [...] cysts: - Multiple ovarian cysts with dimensions: [id number], [id number], [id number], and a larger cyst measuring [id number] - Plan: a) Monitor the size and [...] or irregular menstrual bleeding. 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 07/18/2023 Allergies Anemia Anxiety Arthritis of carpometacarpal (CMC) joint of right thumb 12/28/2023 Bipolar II disorder ([facility]) 07/18/2023 Bowel obstruction ([facility]) 1995 Chicken pox Chronic allergic rhinitis 07/18/2023 Chronic maxillary sinusitis Chronic vaginitis 07/18/2023 SANGITA I (cervical intraepithelial neoplasia I) 07/18/2023 Contusion of right foot 12/28/2023 De Quervain's tenosynovitis, right 12/28/2023 Depression ([facility]) Dysmenorrhea 07/18/2023 Endometriosis of uterus 08/04/2009 Foot fracture, right 2019 broken right foot Genital herpes simplex 09/22/2009 H/O tubal ligation 2009 Headache History of medical problems routine blood donor- every 56 days per pt History of medical treatment 2000 diagnostic lap History of menorrhagia 12/28/2023 HSV-2 infection Hypertension ([facility] Insomnia, persistent 12/28/2023 Iron deficiency anemia 12/28/2023 Menorrhagia with irregular cycle 07/18/2023 Migraine ([facility]) Mixed incontinence 06/30/2024 Mixed stress and urge [...] Chronic obstructive pulmonary disease, unspecified COPD type ([facility]) - tiotropium (Spiriva Respimat) 2.5 MCG/ACT inhaler; [...] COPD. Marta Hernandez DO documented in this encounterHawthorn Children's Psychiatric [id number] Evaluation note* Diagnosis Onset Date Resolution Status Admit Date Arthritis of carpometacarpal (CMC) joint of right thumb acuteAugust 2023 7:55amArthritis of right handacuteAugust 2023 7:55amDe Quervain's tenosynovitis, rightacuteAugust 2023 7:55amRight wrist painacuteAugust 2023 7:55amArthritis of carpometacarpal (CMC) joint of right thumbacuteOctober 2023 7:52amArthritis of right handacuteOctober 2023 7:52amDe Quervain's tenosynovitis, rightacuteOctober 2023 7:52amRight wrist painacuteOctober 2023 7:52amAcute maxillary sinusitis, unspecified July 19, 2018acuteOctober 2023 8:37amBack pain, thoracicacuteOctober 2023 8:37amBloatingacuteOctober 2023 8:37amInsomnia, persistentacute October 2023 8:37amRaynauds diseaseacuteOctober 2023 8:37amTMJ (dislocation of temporomandibular joint)acuteOctober 2023 8:37amBlood donorchronicNovember 2023 10:22amHistory of menorrhagiachronicNovember 2023 10:22amIron deficiency anemiachronicNovember 2023 10:22am Restless leg syndromechronParkland Health Centerember 2023 10:22am [facility] Work Phone: 1([phone]) 660-478204-09-2024 Evaluation note* Author Spencer Valadez [facility] HospitalAuthoredApril 2023 11:28am48 y/o female referred to the GI clinic for evaluation of abdominal pain. Patient reports intermittent upper abdominal pain and bloating for 2-3 years. + iron deficiency anemia on iron supplementation for 3 years. + NSAIDs use + early satiety Will arrange for EGD/Colonoscopy then will determine the need to increase omeprazole 40 mg daily [facility] Work Phone: 1(191) 146-287802-09-2024 History of Present illness Narrative* Dio Fernandez Jose, DO - 10/26/2023 10:15 AM EST Images [...] 07/18/2023 Allergies Anemia Anxiety Bipolar II disorder ([facility]) 07/18/2023 Bowel obstruction ([facility]) 1994 Chicken pox Chronic allergic rhinitis 07/18/2023 Chronic maxillary sinusitis Chronic vaginitis 07/18/2023 SANGITA I (cervical intraepithelial neoplasia I) 07/18/2023 Depression ([facility]) Dysmenorrhea 07/18/2023 Endometriosis of uterus 08/04/2009 Foot fracture, right 2019 broken right foot Genital herpes simplex 09/22/2009 H/O tubal ligation 2009 Headache History of medical problems routine blood donor- every 56 days per pt History of medical treatment 2001 diagnostic lap HSV-2 infection Hypertension ([facility]) Menorrhagia with irregular cycle 07/18/2023 Migraine ([facility]) Mixed stress and urge incontinence 07/18/2023 x2 [...] I'll see her PRN. documented in this encounterHawthorn Children's Psychiatric [id number] Evaluation note* Encounter Date Diagnosis Assessment Notes Treatment Notes Treatment Clinical Notes Aug, Adenomyosis, gallbladder (ICD-10 - K82.8) Aug,RUQ pain (ICD-10 - R10.11) [employer] Other [id number] Evaluation note* Encounter Date Diagnosis Assessment Notes Treatment Notes Treatment Clinical Notes Aug, Right hand pain (ICD-10 - M79.64 1) Aug,Injury of right thumb, initial encounter (ICD-10 - [...] exercises. After 2 weeks, she can start wearingthe brace when active and at night. We will also send in Meloxicam 15mg for her. She can continue weight bearing as tolerated. She will follow up in 4 weeks for reevaluation. [employer] Other 12-04-2023 Evaluation note* Encounter Date Diagnosis Assessment Notes Treatment Notes Treatment Clinical Notes Aug, RUQ abdominal pain (ICD-10 - R10 .11) Pt states she needs a refill of the omeprazole and GI is not returning her call. Rx sent. Katy agrees to start w GBUS Aug,cute non-recurrent sinusitis, unspecified location (ICD-10 - J01.90)Sinus infections can be triggered by a secondary [...] verbalized understanding and agreement with treatment plan. 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 Other dentist info given to pt. OARRS reviewed. [employer] Other 11-01-2023 Evaluation note* Encounter Date Diagnosis Assessment Notes Treatment Notes Treatment Clinical Notes Jul, Cervical spondylosis (ICD-10 - M 47.812) 48 year old female presents with complaints of neck pain with radiation into the back of the skull.She also notes radiation to the bilateral shoulders. She also voices complaints of jaw pain secondary to TMJ. She notes a long history of neck pain, but states symptoms have gradually increased and become more bothersome. She reports prior physical therapy with no improvement in her symptoms. She also notes prior trigger point injections at [facility] with minimal relief. Shefeels pain negatively impacts her daily activities and sleeping pattern. Prior to examining the patient, I reviewed progress notes from her referring provider Dr Lambert. I also independently reviewedrecent imaging of the cervical spine which shows multilevel disc bulges with narrowing of the spinal canal as well as facet arthropathy. Different treatment options were discussed in detail with the patient, and I recommend we proceed with a right cervical facet medial branch nerve block under fluoroscopic guidance. Risks and benefits of procedure explained to patient; patient verbalizes understanding. Jul,Occipital neuralgia (ICD-10 - M54.81) In the future if the pain persists, we can consider proceeding with a right greater and lesser occipital nerve block Jul,Interscapular pain (ICD-10 - M54.89) In the future if the pain persists, we can consider proceeding with a trigger point injection to the right interscapular muscles under ultrasound guidance. Jul,hronic pain (ICD-10 - G89.29) UDS performed through [facility] today, will await confirmatory results. Jul,OtherMedical decision making shows a new problem to me with further workup planned or suggested with thepotential for extensive treatment options that were considered with the most applicable given this patient's situation as noted above. Treatment options considered include a combination of physical th erapy approaches, pharmacologic management, and interventional procedures. Those most applicable tothe patient were discussed at this time. Risk [...] prolonged functional impairment requiring constant patient reassessment andhigh-level medical decision making. The amount and complexity of data reviewed is high given that patient labs, radiology reports, and other test were obtained, reviewed and summarized as applicable from the physician portal and/or outside medical records. Pertinent positive and negative findings were considered in medical decision-making. 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 You can also purchase bktz-kes-pkbbdre medicines. Medicines may have nicotine in them [...] and encouragement. Call telephone quitlines, such as 2-712-GHQE-NOW, reach out to support groups, or work [...] provider. Document Revised: 08/25/2022 Document Reviewed: 08/25/2022 [employer] Patient Education 2022 [employer]. 05/16/2023 09:22:48 Kegel Exercises Kegel Exercises Kegel [...] provider. Document Revised: 01/12/2022 Document Reviewed: 01/12/2022 [employer] Patient Education 2022 [employer]. Follow Up Care 04/17/2023 08:34:14 With:EJ ELLIS, GIANNA Jimenez, URL Address: [address] [place] 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 Document Revised: 01/12/2022 Document Reviewed: 01/12/2022 [employer] Patient Education 2022 [employer]. 05/02/2023 10:42:42 Urinary Incontinence Urinary Incontinence Urinary [...] nerve stimulation). ?For women, using a medical geneticist to prevent urine leaks. This is a [...] right after experiencing incontinence. General instructions Take jgtc-oyj-reezaxc and prescription medicines only as told by [...] important. Where to find more information National [place] of Diabetes and Digestive and Kidney Diseases: www.niddk.nih.gov [employer]: www.urologyhealth.org Contact a health care [...] provider. Document Revised: 04/08/2021 Document Reviewed: 04/08/2021 [employer] Patient Education 2022 [employer]. Follow Up Care 04/17/2023 08:30:21 With:GIANNA KAPLAN PA-C, URL Address: [address] [place] [address] [phone] When: Unknown Comments:PFPT #3 on 05/09/23 [facility] 08-09-2023 Hospital Discharge instructions Patient Education [...] relieve pelvic muscle tension or spasms. Take ppfy-urk-uuslfpm and prescription medicines only as told by [...] provider. Document Revised: 01/11/2022 Document Reviewed: 01/11/2022 [employer] Patient Education 2022 [employer]. Follow Up Care 04/17/2023 08:27:59 With:EJ ELLIS, GIANNA Jimenez, URL Address: [address] [address] [phone] When: Unknown Comments:PFPT #2 on 05/02/23 [facility] 07-14-2023 Evaluation note* Encounter Date Diagnosis Assessment Notes Treatment Notes Treatment Clinical Notes Mar, Well adult exam (ICD-10 - Z00.00 ) We have discussed the necessity of following [...] vaccinations that apply. All questions answered and p atient is sent home pleased, without concerns. 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 Vitals are stable will recheck with test ordered. 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 Refilled med Feb,hronic cough (ICD-10 - R05.3)Refilled med. [employer] Other 04-03-2023 Evaluation note* Encounter Date Diagnosis Assessment Notes Treatment Notes Treatment Clinical Notes Dec, Other iron deficiency anemia (IC D-10 - D50.8) Previously with hematology. will start w labs. Dec,Vitamin D deficiency (ICD-10 - E55.9)on supplement - would like to recheck level as she continues to be fatigued. Dec,Hot flashes (ICD-10 - R23.2)questions if she is in menopause. Dec,Other hemorrhoids (ICD-10 - K64.8)requests refill of cream Dec,Smoker (ICD-10 - F17.200)5 minutes spent with patient counseling on risks of continued smoking, benefits to quiting and options available [employer] Other 02-28-2023 Evaluation note* Encounter Date Diagnosis Assessment Notes Treatment Notes Treatment Clinical Notes Oct, Seasonal allergic rhinitis, unsp ecified trigger (ICD-10 - J30.2) [employer] Other 01-04-2023 Progress note Author Jana Ridley [facility] September 20, 2022 4:41pmNote Date/TimeJan2022 11:53[facility] [place] [address] Hem/Onc Follow Up Note - OP Signed Patient: Katy Banuelos MR#: [id number] : 1975 Acct:[id number] Age/Sex: 47 / F Type: REG RCR Copies to: MD Stevan Luna MD-NOMS~ Subjective Date/Time of Service: Date of Service: 09/20/2022 Time of Service: 11:52 Chief Complaint: Patient is here for a 2 month follow up, with labs for review. No concerns voiced at this time. HPI: 09/20/2022: Katy is here for follow-up and lab review after receiving 3 infusions of Nfyycbu508 mg IV 07/25 through 08/04/2022. She does [...] formulation which she didnot tolerate well. During herinitial evaluation with Dr. Apodaca, he felt that she may have had malabsorption due to a family history of celiac disease as wellas symptoms of bloating and abdominal discomfort with eating bread and g luten containing food items. The patient does note [...] blood donor for manyyears. When asked about symptomsassociated with celiac disease she stated thatshe gets [...] for abdominal pain, constipation, decreased appetite,diarrhea, nausea orvomiting. No recent weight change. GENITOURINARY: Negative for [...] in no acute distress. Very nervous and stressedinitially; come down substantially throughout and definitely toward [...] days and to continue oral iron supplement. Shehadbetter tolerance of Pro Fe 180 mg which [...] her results. (2) Restless leg syndrome Her [facility] physician Dr. Apodaca reported that the patient had symptoms of restless leg syndrome which at times during the interview sounded more like restless body syndrome. She did not have anyof these complaints during my visit and has not noted any significant change after her iron infusions. If shehas recurrent symptoms this would be an indication for parenteral iron therapy. (3) Blood donor The patient is a regular blood donor and will have supplemental oral iron and decrease frequency ofblood donation given her recent iron deficiency. (4) [...] for coordination of care (as documented) and ukwp-rp-hoik counseling of patient and/or family. Dictated By: Jana Ridley MD DD/ 1152 Signed By: <Electronically signed by MD Jana Ridley> 09/20/22 1642 [facility] Work Phone: 1(669) 840-995512-01-2022 Hospital Discharge instructions Patient Education 08/17/2022 10:54:19 [...] reconstructed. Follow these instructions at home: Take xdfw-czr-jhvneng and prescription medicines only as told by [...] 09/29/2016 Document Revised: 04/16/2019 Document Reviewed: 04/16/2019 [employer] Patient Education 2020 [employer]. Follow Up Care 08/09/2022 12:14:18 With:EJ ELLIS, GINANA Jimenez, URL Address: [address] [place] [address] When:[address] [facility] 11-01-2022 Consult note Author Kye Apodaca [facility] July 18, 2022 4:40pmNote Date/TimeNov2021 4:30pmSelect Medical Specialty [facility] [place] [address] [place] [address] Hem/Onc Consult Note - OP Signed Patient: Katy Banuelos MR#: [id number] : 1975 Acct:[id number] Age/Sex: 47 / F Type: REG RCR Copies to: MD Stevan Luna MD-NOMS~ HPI Date/Time of Service: Date of Service: 07/18/2022 Time of Service: 16:27 Referring Provider/PCP: Referring Provider: SHARI EstesNOMS PCP: Fernanda Concepcion MD - History of [...] or healthy nutrients in general.Of much more relevamnce she has been on regular blood donor for many years. When asked about symptoms associated with celiac disease she stated that she gets bloating and abdominal discomfort when she eats bread and gluten containing food items. She has a son with established celiac diseaseaccording to her [facility] - Medical History Medical History: [...] in no acute distress. Very nervous and stressedinitially; come down substantially throughout and definitely toward [...] intolerance including upset stomach and changes ofbowel habits.In addition there is strong suggestion that she [...] with documented very low ferritin we will scheduleher for iron infusions (3) Adult celiac disease Patients have complained strongly suggestive of celiac disease or at least gluten sensitivity. We will check celiac disease panel and. Optimally if positive requires a small bowel biopsy; however shehad a recent EGD so no need to [...] for coordination of care (as documented) and hrrq-mj-fdia counseling of patient and/or family. Dictated By: Kye Apodaca MD DD/ 1627 Signed By: <Electronically signed by Kye Apodaca MD> 07/18/22 1640 [facility] Work Phone: 1(193) 603-602511-02-2018 Evaluation note* Diagnosis Onset Date Resolution Status Admit Date Acute maxillary sinusitis, unspecified July 19, 2018 acuteOctober 2023 8:37amBack pain, thoracicacuteOctober 2023 8:37am BloatingacuteOctober 2023 8:37amInsomnia, persistentacuteOctober 2023 8:37amRaynauds diseaseacuteOctober 2023 8:37amTMJ (dislocation of temporomandibular joint)acuteOctober 2023 8:37amBlood donorchronicNovember 2023 10:22amHistory of menorrhagiachronicNovember 2023 10:22amIron deficiency anemiachronicNov2023 10:22amAcute maxillary sinusitis, unspecifiedJuly 19, 2018acuteDecember 2023 9:48amBack pain, thoracic acuteDecember 2023 9:48amInsomnia, persistentacuteDecember 2023 9:48am TMJ (dislocation of temporomandibular joint)acuteDecember 2023 9:48am Arthritis of carpometacarpal (CMC) joint of right thumbacuteJanuary 2024 8:56amArthritis of right handacuteJanuary 2024 8:56amDe Quervain's tenosynovitis, rightacuteJanuary 2024 8:56amRight wrist painacuteJanuary 2024 8:56am [facility] Work Phone: 1(696) 521-544311-02-2018 Evaluation note* Diagnosis Onset Date Resolution Status Admit Date Acute maxillary sinusitis, unspecified July 19, 2018 acuteDecember 2023 9:48amBack pain, thoracicacuteDecember 2023 9:48am Insomnia, persistentacuteDecember 2023 9:48amTMJ (dislocation of temporomandibular joint)acuteceer 2023 9:48amArthritis of carpometacarpal (CMC) joint of right thumbacuteJanuary 2024 8:56am Arthritis of right handacuteJanuary 2024 8:56amDe Quervain's tenosynovitis, rightacuteJanuary 2024 8:56amRight wrist painacuteJanuary 2024 8:56am [facility] Work Phone: 1([phone]) 886-415911-02-2018 Evaluation note* Diagnosis Onset Date Resolution Status Admit Date Acute maxillary sinusitis, unspecified July 19, 2018 acuteDecember 2023 9:48amBack pain, thoracicacuteDecember 2023 9:48am Insomnia, persistentacuteDecember 2023 9:48amTMJ (dislocation of temporomandibular joint)acuteDecember 2023 9:48amArthritis of carpometacarpal (CMC) joint of right thumbacuteJanuary 2024 8:56am Arthritis of right handacuteJanuary 2024 8:56amDe Quervain's tenosynovitis, rightacuteJanuary 2024 8:56amRight wrist painacuteJanuary 2024 8:56amArthritis of carpometacarpal (CMC) joint of right thumbacute November 14, 2024 9:18amArthritis of right handacuteFebruary 2024 9:18am De Quervain's tenosynovitis, rightacuteFebruary 2024 9:18amRight wrist painacuteFebruary 2024 9:18am [facility] Work Phone: Evaluation + Plan note Future Appointments Appointment Date:11/20/2022 10:30:00 AM Scheduled Provider:Willem HARRIS MD Location:[facility] Appointment Type:URO Office Visit [facility] Evaluation + Plan note Future Appointments Appointment Date:05/02/2023 10:30:00 AM Scheduled Provider:GIANNA KAPLAN PA-C Location:[facility] Appointment Type:URO Procedure 30 min Appointment Date:05/09/2023 09:30:00 AM Scheduled Provider:GIANNA KAPLAN PA-C Location:[facility] Appointment Type:URO Procedure 30 min Appointment Date:05/16/2023 09:30:00 AM Scheduled Provider:GIANNA KAPLAN PA-C Location:[facility] Appointment Type:URO Procedure 30 min Appointment Date:05/30/2023 09:30:00 AM Scheduled Provider:GIANNA KAPLAN PA-C Location:[facility] Appointment Type:URO Procedure 30 min Appointment Date:06/13/2023 09:30:00 AM Scheduled Provider:GIANNA KAPLAN PA-C Location:[facility] Appointment Type:URO Procedure 30 min [facility] evaluation + Plan note Future Appointments Appointment Date:05/09/2023 09:30:00 AM Scheduled Provider:GIANNA KAPLAN PA-C Location:[facility] Appointment Type:URO Procedure 30 min Appointment Date:05/16/2023 09:30:00 AM Scheduled Provider:GIANNA [facility]APLAN PA-C [facility] Type[facility] Procedure 30 min Appointment Date:05/30/2023 09:30:00 AM Scheduled Provider:GIANNA KAPLAN PA-C Location:[facility] Appointment Type:URO Procedure 30 min Appointment Date:06/13/2023 09:30:00 AM Scheduled Provider:GIANNA KAPLAN PA-C Location:[facility] Appointment Type:URO Procedure 30 min [facility] Evaluation + Plan note Future Appointments Appointment Date:05/16/2023 09:30:00 AM Scheduled Provider:GIANNA KAPLAN PA-C Location:[facility] Appointment Type:URO Procedure 30 min Appointment Date:05/30/2023 09:30:00 AM Scheduled Provider:GIANNA KAPLAN PA-C Location:[facility] Appointment Type:URO Procedure 30 min Appointment Date:06/13/2023 09:30:00 AM Scheduled Provider:GIANNA KAPLAN PA-C Location:[facility] Appointment Type:URO Procedure [address] [facility] Evaluation + Plan note Future Appointments Appointment Date:03/14/2024 01:45:00 PM Scheduled Provider:Girma Delgado MD [facility] Type:Cardiology Follow Up (FT) Future Scheduled Tests Laboratory* Sedimentation Rate Automated 01/30/24 * Comprehensive Metabolic Panel 01/30/24 * C-Reactive Protein 01/30/24 * Lipid Panel 01/30/24 Radiology* US Carotid Duplex Bilateral 01/30/24 [facility] + Plan note Future Appointments Appointment Date:03/14/2024 01:45:00 PM Scheduled Provider:Girma Delgado MD [facility] Follow Up (FT) [facility] noteNo assessment information available [facility] Work Phone: Evaluation note* Diagnosis Onset Date Resolution Status Adult celiac disease acuteIron deficiencyacuteIron deficiency anemiaacuteRestless leg syndromeacute [facility] Work Phone: Evaluation noteNo InformationNort Erly Other Evaluation note* Diagnosis Right upper quadrant pain- Primary Abdominal pain, right upper quadrant documented in this encounter [facility] HealthcareEvaluation note* Diagnosis Onset Date Resolution Status Injury of thumb, right acuteArthritis of carpometacarpal (CMC) joint of right thumbacuteArthritis of right handacuteDe Quervain's tenosynovitis, rightacuteRight hand painacuteRight wrist painacute [facility] Work Phone: Evaluation note* Diagnosis Onset Date Resolution Status Arthritis of carpometacarpal (CMC) joint of right thumb acuteArthritis of right handacuteDe Quervain's tenosynovitis, rightacuteRight wrist painacuteArthritis of carpometacarpal (CMC) joint of right thumbacute Arthritis of right handacuteDe Quervain's tenosynovitis, rightacuteRight wrist painacuteArthritis of carpometacarpal (CMC) joint of right thumbacuteArthritis of right handacuteDe Quervain's tenosynovitis, rightacuteRight wrist painacute [facility] Work Phone: Evaluation note* Diagnosis Onset Date Resolution Status Arthritis of carpometacarpal (CMC) joint of right thumb acuteArthritis of right handacuteDe Quervain's tenosynovitis, rightacuteRight wrist painacuteAbdominal painacuteInsomnia, persistentacuteWellness examination acuteArthritis of carpometacarpal (CMC) joint of right thumbacuteArthritis of right handacuteDe Quervain's tenosynovitis, rightacuteRight wrist painacute [facility] Work Phone: Evaluation note* Diagnosis Onset Date Resolution Status Abdominal pain acuteInsomnia, persistentacuteWellness examinationacuteArthritis of carpometacarpal (CMC) joint of right thumbacuteArthritis of right handacuteDe Quervain's tenosynovitis, rightacuteRight wrist painacuteArthritis of carpometacarpal (CMC) joint of right thumbacuteArthritis of right handacuteDe Quervain's tenosynovitis, rightacuteRight wrist painacute [facility] Work Phone: Evaluation note* Diagnosis [...] vaginitis and vulvovaginitis documented in this encounter [facility] HealthcareEvaluation note* Diagnosis Onset Date Resolution Status Arthritis of carpometacarpal (CMC) joint of right thumb acuteArthritis of right handacuteDe Quervain's tenosynovitis, rightacuteRight wrist painacuteArthritis of carpometacarpal (CMC) joint of right thumbacute Arthritis of right handacuteDe Quervain's tenosynovitis, rightacuteRight wrist painacuteBack pain, thoracicacuteBloatingacuteRaynauds diseaseacute [facility] Work Phone: Evaluation note* Diagnosis Mood swings Other specified episodic mood disorder Vaginal itching Pruritus of genital organs Vaginal discharge Leukorrhea, not specified as infective Cysts of both ovaries Other and unspecified ovarian cyst Abnormal CBC Other abnormal blood chemistry Iron deficiency anemia, unspecified iron deficiency anemia type Insomnia, unspecified type documented in this encounter [facility] HealthcareEvaluation note* Diagnosis Encounter for gynecological examination [...] Description Date Medical History TMJ arthralgia Medical HistoryInsomnia, persistentMedical HistoryAnxietyMedical HistoryViremia Medical HistoryAnemiaMedical HistoryMuscle spasm of shoulder regionMedical HistoryAbnormal weight lossMedical HistoryElevated MCVMedical HistoryBack pain, thoracicMedical HistoryDysuria-frequency syndromeMedical HistoryVitamin D deficiencyMedical HistoryExternal hemorrhoidMedical HistoryHTN (hypertension) Medical HistoryGastroesophageal reflux disease with esophagitis without hemorrhageMedical HistoryAcute pain of right footSurgical [id number] HistoryHYSTEROSCOPY, ABLATIONHospitalization HistorySEE SURGICAL [facility]) Other History general Narrative - Reported* Type Description Date Medical History TMJ arthralgia Medical HistoryInsomnia, persistentMedical HistoryAnxietyMedical HistoryAnemia Medical HistoryMuscle spasm of shoulder regionMedical HistoryAbnormal weight lossMedical HistoryElevated MCVMedical HistoryBack pain, thoracicMedical History Dysuria-frequency syndromeMedical HistoryVitamin D deficiencyMedical History External hemorrhoidMedical HistoryHTN (hypertension)Medical History Gastroesophageal reflux disease with esophagitis without hemorrhageMedical HistoryAcute pain of right footSurgical [id number] History HYSTEROSCOPY, ABLATIONHospitalization HistorySEE SURGICAL [facility]) Other History general Narrative - Reported* Type Description Date Medical History TMJ arthralgia Medical HistoryInsomnia, persistentMedical HistoryAnxietyMedical HistoryAnemia Medical HistoryMuscle spasm of shoulder regionMedical HistoryAbnormal weight lossMedical HistoryElevated MCVMedical HistoryBack pain, thoracicMedical History Dysuria-frequency syndromeMedical HistoryVitamin D deficiencyMedical History External hemorrhoidMedical HistoryHTN (hypertension)Medical History Gastroesophageal reflux disease with esophagitis without hemorrhageMedical HistoryAcute pain of right footMedical HistoryCOPDSurgical [id number] Surgical HistoryHYSTEROSCOPY, ABLATIONHospitalization HistorySEE SURGICAL HX [facility]) Other Hospital course Narrative No data available for this section [facility] Discharge instructions No data available for this section [facility] progress note No data available for this section [facility] Progress note Author Jana Ridley [facility] September 20, 2022 4:41pmNote Date/TimeJan2022 11:53[facility] [place] [address] Hem/Onc Follow Up Note - OP Signed Patient: Katy Banuelos MR#: [id number] : 1975 Acct:[id number] Age/Sex: 47 / F Type: REG RCR Copies to: MD Stevan Luna MD-[facility]~ Subjective Date/Time of Service: Date of Service: 09/20/2022 Time of Service: 11:52 Chief Complaint: Patient is here for a 2 month follow up, with labs for review. No concerns voiced at this time. HPI: 09/20/2022: Katy is here for follow-up and lab review after receiving 3 infusions of Gkevgak212 mg IV 07/25 through 08/04/2022. She does [...] formulation which she didnot tolerate well. During herinitial evaluation with Dr. Apodaca, he felt that she may have had malabsorption due to a family history of celiac disease as wellas symptoms of bloating and abdominal discomfort with eating bread and g luten containing food items. The patient does note [...] blood donor for manyyears. When asked about symptomsassociated with celiac disease she stated thatshe gets [...] for abdominal pain, constipation, decreased appetite,diarrhea, nausea orvomiting. No recent weight change. GENITOURINARY: Negative for [...] in no acute distress. Very nervous and stressedinitially; come down substantially throughout and definitely toward [...] days and to continue oral iron supplement. Shehadbetter tolerance of Pro Fe 180 mg which [...] her results. (2) Restless leg syndrome Her [facility] physician Dr. Apodaca reported that the patient had symptoms of restless leg syndrome which at times during the interview sounded more like restless body syndrome. She did not have anyof these complaints during my visit and has not noted any significant change after her iron infusions. If shehas recurrent symptoms this would be an indication for parenteral iron therapy. (3) Blood donor The patient is a regular blood donor and will have supplemental oral iron and decrease frequency ofblood donation given her recent iron deficiency. (4) [...] for coordination of care (as documented) and cjlj-az-[id number] counseling of patient and/or family. Dictated By: Jana Ridley MD DD/ 1152 Signed By: <Electronically signed by MD Jana Ridley> 09/20/22 1641 [facility] Work Phone: Progress note Author Jeanette Jimenes [facility] Date/TimeMay 2024 9:45[facility] [place] [address] Cancer Center Note Signed Patient: Katy Banuelos MR#: [id number] : 1975 Acct:[id number] Age/Sex: 50 / F Type: DEP AMB [...] ago. She also had been taking regular ironsupplementation but more recent oral iron supplement caused [...] Lara showed no evidence of villous atrophy orintestinal metaplasia suggestive of celiac disease. Based on [...] 1 week prior to 6month visit with [employer]. [employer]AN Treatment Plan Iron Sucrose (Venofer) [...] mg PO BID PRN 30 days vitamin Q52-etgum acid 0.5-1 mg 1 tab PO DAILY Gastrointestinal Is the patient taking opioids for pain control?: No Falls Fall Precaution Measures Taken: Patient in chair Nurse's Note: Patient is here today for a follow up visit and go over labs [facility] Medical History Medical History Raynauds [...] <Electronically signed by JIL Jimenes> 02/06/25 0948 [facility] Work Phone: Reason for referral (narrative)* Consultation (Routine) - Pending ReviewSpecialtyDiagnoses / ProceduresReferred By Contact Referred To ContactGastroenterology Diagnoses Right upper quadrant pain Procedures MT OFFICE/OUTPATIENT NEW HIGH MDM 60 MINUTES Dio Lara DO [address] [address] Alverto Salinas MD [address] [address] Referral IDStatusReasonStart DateExpiration DateVisits RequestedVisits [id number] Review Specialty Services Required / NUSRAT HealthcareRejulien for referral (narrative)No reason for referral information availablePike Community Hospital Work Phone: Chief Complaint and [...] CONSULT DR MITCHELL POSSIBLE LOOSE BODY RT THUMBReason for VisitInjury of thumb, right Arthritis of carpometacarpal (CMC) joint of right thumb Arthritis of right hand De Quervain's tenosynovitis, right Right hand pain Right wrist pain Chief Complaint J44.9;R05 R94.6 E55.9 R63.4 R10.11 k82.8 Amb Documentation Recheck Right Hand Pain CONSULT DR MITCHELL POSSIBLE LOOSE BODY RT THUMB medication check upReason for VisitInjury of thumb, right Arthritis of carpometacarpal (CMC) joint of right thumb Arthritis of right hand De Quervain's tenosynovitis, right Right hand pain Right wrist pain Chief Complaint R94.6 E55.9 R63.4 R10.11 k82.8 Amb Documentation Recheck Right Hand Pain CONSULT DR MITCHELL POSSIBLE LOOSE BODY RT THUMB medication check up ruq pain/ref itzkowitz R thumb- dynamic & static splint R14.0 R10.9Reason for VisitInjury of thumb, right Arthritis of carpometacarpal (CMC) joint of right thumb Arthritis of right hand De Quervain's tenosynovitis, right Right hand pain Right wrist pain Insomnia, persistent TMJ (dislocation of temporomandibular joint) Chief Complaint R10.11 k82.8 Amb Documentation Recheck Right Hand Pain CONSULT DR MITCHELL POSSIBLE LOOSE BODY RT THUMB medication check up ruq pain/ref itzkowitz R14.0 R10.9 R thumb- dynamic & static splint 4 WEEK RECHECKReason for VisitInjury of thumb, right Arthritis of carpometacarpal (CMC) joint of right thumb Arthritis of right hand De Quervain's tenosynovitis, right Right hand pain Right wrist pain Insomnia, persistent TMJ (dislocation of temporomandibular joint) Arthritis of carpometacarpal (CMC) joint of right thumb Arthritis of right hand De Quervain's tenosynovitis, right Right wrist pain Chief Complaint Amb Documentation Recheck Right Hand Pain CONSULT DR MITCHLEL POSSIBLE LOOSE BODY RT THUMB medication check up ruq pain/ref itzkowitz R14.0 R10.9 4 WEEK RECHECK R thumb- dynamic & static splintReason for VisitInjury of thumb, right Arthritis of carpometacarpal (CMC) joint of right [...] RT THUMB medication check up ruq pain/ref jose R14.0 R10.9 4 WEEK RECHECK R thumb- dynamic & static splint 4-6 WEEKSReason for VisitInjury of thumb, right Arthritis of carpometacarpal (CMC) joint of right [...] wrist pain Chief Complaint ruq pain/ref maryanne montana R14.0 R10.9 4 WEEK RECHECK R thumb- dynamic & static splint 4-6 WEEKS iron def anemia/ruq pain/bloating iron def anemia/ruq pain/bloating Amb Documentation iron def anemia due to chronic blood lossReason for VisitArthritis of carpometacarpal (CMC) joint of right thumb Arthritis of right hand De Quervain's tenosynovitis, right Right wrist pain Arthritis of carpometacarpal (CMC) joint of right thumb Arthritis of right hand De Quervain's tenosynovitis, right Right wrist pain Chief Complaint ruq pain/ref itzkoliborio tz R14.0 R10.9 4 WEEK RECHECK R thumb- dynamic & static splint 4-6 WEEKS iron def anemia/ruq pain/bloating iron def anemia/ruq pain/bloating Amb Documentation iron def anemia due to chronic blood loss 4-6 WEEK RECHECKReason for VisitArthritis of carpometacarpal (CMC) joint of right thumb [...] to chronic blood loss 4-6 WEEK RECHECK WellnessReason for VisitArthritis of carpometacarpal (CMC) joint of right thumb [...] blood loss 4-6 WEEK RECHECK Wellness 8 WEEKSReason for VisitArthritis of carpometacarpal (CMC) joint of right thumb Arthritis of right hand De Quervain's tenosynovitis, right Right wrist pain Abdominal pain Insomnia, persistent Wellness examination Arthritis of carpometacarpal (CMC) joint of right thumb Arthritis of right hand De Quervain's tenosynovitis, right Right wrist pain Chief Complaint Wellness 8 WEEKS Apryl & Abelardo only/Back pain, spasms 6 WEEKSReason for VisitAbdominal pain Insomnia, persistent Wellness examination Arthritis of carpometacarpal (CMC) joint of right thumb Arthritis of right hand De Quervain's tenosynovitis, right Right wrist pain Arthritis of carpometacarpal (CMC) joint of right thumb Arthritis of right hand De Quervain's tenosynovitis, right Right wrist pain Chief Complaint 8 WEEKS 6 WEEKS Apryl only/Back pain, spasms Check UpReason for VisitArthritis of carpometacarpal (CMC) joint of right thumb Arthritis of right hand De Quervain's tenosynovitis, right Right wrist pain Arthritis of carpometacarpal (CMC) joint of right thumb Arthritis of right hand De Quervain's tenosynovitis, right Right wrist pain Back pain, thoracic Bloating Raynauds disease Chief Complaint 8 WEEKS 6 WEEKS Check Up Apryl only/Back pain, spasms m54.6 r14.0 i73.00Reason for VisitArthritis of carpometacarpal (CMC) joint of right thumb [...] 182023 10:22am Iron deficiency, anemia August 04, 2 024 10:25am Reason for Visit Admit Date [...] Admit Date Acute maxillary sinusitis, unspecified D ec2023 9:48am Back pain, thoracic August 20, 2024 [...] Chronic pain April 22, 2025 10: 10am Chief Complaint Admit Date 1 MONTH April 22, 2025 10: 10am Amb Documentation June 30, 2025 1 0:09am Follow up July 06, 2025 1 0:25am Reason for Visit Admit Date Arthritis of [...] 0:25am Paresthesia July 06, 2025 1 0:25am Chief Complaint Admit Date 1 MONTH April 22, 2025 10: 10am Amb Documentation June 30, 2025 1 0:09am Follow up July 06, 2025 1 0:25am 3 MONTHS July 07, 2025 9 :58am Reason for Visit Admit Date Arthritis of [...] 9:58am Trigger finger, right index finger Octob er 2024 9:58am Chief Complaint Admit Date 1 MONTH April [...] 9:58am Trigger finger, right index finger Octob er 2024 9:58am 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 ne July 13, 2025 10:13am Back pain, thoracic July 13, 2025 1 0:13am Chronic pain July 13, 2025 1 0:13am Family History Relationship Condition Age at Onset Recorded Date/T lisa father Hypertension Unknown Cerebrovascular accident (CVA)UnknownMalignant neoplasm of prostateUnknown Relationship Condition Age at Onset Recorded Date/T lisa father Malignant neoplasm of prostate Unknown HypertensionUnknownCerebrovascular accident (CVA)UnknownfatherMalignant neoplasm of urinary bladderUnknowngrandparentLeukemiaUnknown Relationship Condition Age at Onset Recorded Date/T lisa father Malignant neoplasm of prostate Unknown HypertensionUnknownCerebrovascular accident (CVA)UnknownfatherMalignant neoplasm of urinary bladderUnknowngrandparentLeukemiaUnknownfatherHistory of stroke UnknownDeceasedUnknown Relationship Condition Age at Onset Recorded Date/T lisa father Malignant neoplasm of prostate Unknown HypertensionUnknownCerebrovascular accident (CVA)UnknownMalignant neoplasm of urinary bladderUnknownDeceasedUnknowngrandparentLeukemiaUnknown Advance Directives Advance Directive Response Recorded Date/ [...] 1 Adenomyosis, gallbla dder (K82.8) Referral Organization [facility] Wicronvaibhav Referring Provider First Name Fernanda Referring Provider Last Name Jamey Referring Provider Specialty [facility] [employer] Referred Organization [facility] Referred Provider Dio Lara Referred Address ,[place], [place],[address] Referred Provider Specialty Surgery Referral Priority Routine General Notes Teri Gray 04:49:56 PM >received today, multiple attachments made, notes locked, referral faxed Reason *06/07 TSH 0.35 , unexplained weight loss. Diagnosis 1 Low TSH level (R79.8 9) Referral Organization [facility] [employer] jenna Referring Provider First Name Fernanda Referring Provider Last Name Jamey Referring Provider Specialty [facility] Strava Referred Organization [employer] [facility] Referred Provider Candelario Johansen Referred Address [address] [place] [address] [address],[place], [place],[address] Referred Provider Specialty Internal Med icine Referral [...] Start: December 25, 2023 End: December 25, 2023Cristiano García ProviderActiveStart: December 25, 2023 End: December 25, 2023 Team Status: Inactive Member Role Status Dates Fernanda Concepcion MD Primary Care Provider Active Start: December 28, 2023 End: December 28, 2023Imad Asamarky , MDAttending ProviderActiveStart: December 28, 2023 End: December 28, 2023 Team Status: Inactive Member Role Status Dates Fernanda Concepcion MD Primary Care Provider Active Start: January 08, 2024 End: January 07ollyvonne Rodriguez , MDAttending ProviderActiveStart: January 08, 2024 End: January 08, 2024 Team Status: Inactive Member Role Status Dates Fernanda Concepcion MD Primary Care Provider Active Start: January 29, 2024 End: January 28hannah Rodriguez MDAttending ProviderActiveStart: January 29, 2024 End: January 29, 2024 Team Status: Inactive Member Role Status Dates Fernanda Concepcion MD Primary Care Provider Active Start: February 12, 2024 End: February 11hannah Rodriguez MDAttending ProviderActiveStart: February 12, 2024 End: February 12, 2024 Team Status: Inactive Member Role Status Dates Fernanda Concepcion MD Primary Care Provider Active Start: March 04, 2024 End: March 04, 2024Imad Allyson , MDAttending ProviderActiveStart: March 04, 2024 End: March 04, 2024 Team Status: Active Member Role Status Dates Fernanda Concepcion MD Primary Care Provider Active Start: March 04, 2024 Spencer Valadez MDAttending Provider, Other ProviderActiveStart: March 04, 2024 Team Status: Active Member Role Status Dates Fernanda Concepcion MD Primary Care Provider Active Start: March 05, 2024 Lise Gray ProviderActiveStart: March 05, 2024 Team Status: Inactive Member Role Status Dates Fernanda Concepcion MD Primary Care Provider Active Start: March 17, 2024 End: March 17, 2024Imad Asamarky , MDAttending ProviderActiveStart: March 17, 2024 End: March 17, 2024 Team Status: Active Member Role Status Dates Fernanda Concepcion MD Primary Care Provider Active Start: November 16, 2023 Enzo Strong ProviderActiveStart: November 16, 2023 Team Status: Inactive Member Role Status Dates Fernanda Concepcion MD Primary Care Provider Active Start: November 22, 2023 End: November 22, 2023Darrius Gan ProviderActiveStart: November 22, 2023 End: November 22, 2023 Team Status: Inactive Member Role Status Dates Fernanda Concepcion MD Primary Care Provider Active Start: December 04, 2023 End: December 03Cristiano Dixno ProviderActiveStart: December 04, 2023 End: December 04, 2023 Team Status: Inactive Member Role Status Dates Fernanda Concepcion MD Primary Care Provide r, Attending Provider Active Start: December 10, 2023 End: December 10, 2023 Team Status: Inactive Member Role Status Dates Fernanda Concepcion MD Primary Care Provider Active Candice Palencia APRNAtmoises ProviderActive Team Status: Inactive Member Role Status Dates PHYSICIAN NO FAMILY Primary Care Provider Active Darrius Davis ProviderActive Team Status: Active Member Role Status Dates PHYSICIAN NO FAMILY Primary Care Provider Active Team Status: Active Member Role Status Dates Kye Apodaca MD Attending Provider Active Stevan Alicia MDReferring ProviderActiveMarcikatie Concepcion , Diana Care ProviderActive Team Status: Inactive Member Role Status Dates Fernanda Concepcion MD Primary Care Provider, Attending Jas berkowitz Active Team Status: Inactive Member Role Status Dates Fernanda Concepcion MD Primary Care Provider Active Darrius Parikh ProviderActive Team Status: Active Member Role Status Dates Fernanda Concepcion MD Primary Care Provider Active Graham Perkins ProviderActive Team Status: Inactive Member Role Status Dates Fernanda Concepcion MD Primary Care Provider Active Darrius Gan ProviderActive Team Status: Inactive Member Role Status Dates Stefan Mcdonough MD Attending Provider Active Sta rt: July 18, 2023 End: July 18, 2023 Team Status: Inactive Member Role Status Dates Fernanda Concepcion MD Primary Care Provider Active Start: August 01, 2023 End: August 01, 2023Darrius Parikh ProviderActiveStart: August 01, 2023 End: August 01, 2023 Team Status: Inactive Member Role Status Dates Fernanda Concepcion MD Primary Care Provider Active Start: August 06, 2023 End: August 06, 2023Darrius Parikh ProviderActiveStart: August 06, 2023 End: August 06, 2023 Team Status: Inactive Member Role Status Dates Fernanda Concepcion MD Attending Provider Active St art: August 20, 2023 End: August 20, 2023 Team Status: Active Member Role Status Dates Fernanda Concepcion MD Primary Care Provider Active Start: August 27, 2023 ADRIANNA Perkins-CAtmoises ProviderActiveStart: August 27, 2023 Team Status: Inactive Member [...] Active Start: September 04, 2023 End: September 04Darrius Bernabe ProviderActiveStart: September 04, 2023 End: September 04, 2023 Team Status: Inactive Member Role Status Dates Fernanda Concepcion MD Primary Care Provider Active Start: September 05, 2023 End: September 05, 2023Darrius Parikh ProviderActiveStart: September 05, 2023 End: September 05, 2023 Team Status: Inactive Member Role Status Chung Concepcion MD Primary Care Provider Active Start: September 14, 2023 End: September 14, 2023Darrius Parikh ProviderActiveStart: September 14, 2023 End: September 14, 2023 Team Status: Inactive Member Role Status Dates Fernanda Concepcion MD Primary Care Provider Active Start: October 08, 2023 End: October 08Cristiano Bentley ProviderActiveStart: October 08, 2023 End: October 08, 2023 Team Status: Inactive Member Role Status Chung Concepcion MD Primary Care Provider Active Start: August 27, 2023 End: August 27, 2023ADRIANNA Perkins-CAtmoises ProviderActiveStart: August 27, 2023 End: August 27, 2023 Team Status: Active Member Role Status Dates Fernanda Concepcion MD Primary Care Provider Active Start: October 23, 2023 Jay Davisending ProviderActiveStart: October 23, 2023 Team Status: Inactive Member Role Status Dates Fernanda Concepcion MD Primary Care Provider Active Start: October 23, 2023 End: October 23, 2023Fredcora Lara , DOAttending ProviderActiveStart: October 23, 2023 End: October 23, 2023Team MemberRelationshipSpecialtyStart DateEnd Date Fernanda Concepcion MD [address] [place] [address] [facility] Lnctujdt09/30/23 Team Status: Active Member Role Status Dates Fernanda Concepcion MD Primary Care Provider Active Start: December 27, 2023 Arie Dumontending ProviderActiveStart: December 27, 2023 Team Status: Active Member Role Status Chung Concepcion MD Primary Care Provider Active Start: January 07, 2024 Cristiano Dumont ProviderActiveStart: January 07, 2024 Team Status: Inactive Member Role Status Chung Concepcion MD Primary Care Provider Active Start: March 18, 2024 End: March 18Cristiano Dixon ProviderActiveStart: March 18, 2024 End: March 18, 2024 Team Status: Inactive Member Role Status Chung Concepcion MD Primary Care Provide r, Attending Provider Active Start: April 01, 2024 End: April 01, 2024 Team Status: Inactive Member Role Status Chung Concepcion MD Primary Care Provider Active Start: May 13, 2024 End: May 13Cristiano Dixon ProviderActiveStart: May 13, 2024 End: May 13, 2024 Team Status: Active Member Role Status Chung Concepcion MD Primary Care Provide r, Attending Provider Active Start: June 24, 2024 Team Status: Inactive Member Role Status Chung Concepcion MD Primary Care Provider Active Start: June 25, 2024 End: June 25Cristiano Dixon ProviderActiveStart: June 25, 2024 End: June 25, 2024Team MemberRelationshipSpecialtyStart DateEnd Date Fernanda Concepcion MD [address] [place] [facility] [place] [id number] [facility] - [facility] Zhqgiqux86/30/23Team MemberRelationshipSpecialtyStart Date End Date Fernanda Concepcion MD [address] [place] [place] [phone] [facility] - [facility] Kanigfuh65/30/23Team MemberRelationshipSpecialtyStart Date End Date Fernanda Concepcion MD [address] [facility] [place] [address] [facility] - [facility] Olpxkvla15/30/23Team MemberRelationshipSpecialtyStart Date End Date Fernanda Concepcion MD [address] [place] [facility] [place] [address] [facility] - [facility] Xnwlkiti61/30/23 Team Status: Active Member Role Status Dates Fernanda Concepcion MD Primary Care Provide r, Attending Provider Active Start: July 10, 2024 Team Status: Inactive Member Role Status Dates Fernanda Concepcion MD Primary Care Provide r, Attending Provider Active Start: July 14, 2024 End: July 14, 2024Team MemberRelationshipSpecialtyStart DateEnd Date Fernanda Concepcion MD [address] [place] [facility] [place] [phone] [facility] - [facility] Lirteged52/30/23Team MemberRelationshipSpecialtyStart Date End Date Fernanda Concepcion MD [address] [place] [facility] [place] [phone] [facility] Wctnxqvr65/30/23 Team Status: Active Member Role Status Dates [...] Start: August 04, 2024 End: August 04, 2024Glen Trevino ProviderActiveStart: August 04, 2024 End: August 04CHRISSY Kohlieferring ProviderActiveStart: August 04, 2024 End: August 04, 2024 Team Status: Active Member Role Status Dates Fernanda Concepcion MD Primary Care Provider Active Start: August 04, 2024 Brenden Trevinotenclinton ProviderActiveStart: August 04, 2024 Stevan Alicia MDReferring ProviderActiveStart: August 04, 2024 Team Status: Inactive Member [...] Care Provider Active Start: August 20, 2024 Glen Trevino ProviderActiveStart: August 20, 2024 Stevan Alicia MDReferring ProviderActiveStart: August 20, 2024 Team Status: Inactive Member Role Status Dates Fernanda Concepcion MD Primary Care Provider Active Start: October 03, 2024 End: October 03Cristiano Dixon ProviderActiveStart: October 03, 2024 End: October 03, 2024 Team Status: Active Member Role Status Dates Fernanda Concepcion MD Primary Care Provider Active Start: October 14, 2024 Glen Trevino ProviderActiveStart: October 14, 2024 Stevan Alicia , MDReferring ProviderActiveStart: October 14, 2024 Team Status: Inactive Member [...] Active Start: November 14, 2024 End: November 14ollCristiano Rose ProviderActiveStart: November 14, 2024 End: November 14, 2024 Team Status: Inactive Member Role Status Dates Fernanda Concepcion MD Primary Care Provide r, Attending Provider Active Start: December 11, 2024 End: December 11, 2024 Team Status: Inactive Member Role Status Dates Fernanda Concepcion MD Primary Care Provider Active Start: December 26, 2024 End: December 26ollArie Roseending ProviderActiveStart: December 26, 2024 End: December 26, 2024Team MemberRelationshipSpecialtyStart DateEnd Date Fernanda Concepcion MD [address] [id number] PCP - GeneralFamily Txwzhojs28/30/23Team MemberRelationshipSpecialtyStart Date End Date Fernanda Concepcion MD [address] [place] [address] PCP - GeneralFamily Zpatykli51/30/23Team MemberRelationshipSpecialtyStart Date End Date Fernanda Concepcion MD [address] [place] [facility] [place] [address] PCP - GeneralFamily Qkmxhmbg14/30/23Team MemberRelationshipSpecialtyStart Date End Date Fernanda Concepcion MD [address] [place] [facility] [place] [phone] PCP - [facility]07/16/23 Team Status: Inactive Member Role Status Dates Fernanda Concepcion MD Primary Care Provider Active Start: January 27, 2025 End: January 27, 2025Marta Hernandez DOAttending ProviderActiveStart: January 27, 2025 End: January 27, 2025 Team Status: Active Member Role Status Dates Fernanda Concepcion MD Primary Care Provider Active Start: January 27, 2025 Ute Griffin APRNAttenclinton ProviderActiveStart: January 27, 2025 Stevan Alicia MDReferring ProviderActiveStart: January 27, 2025 Team MemberRelationshipSpecialtyStart DateEnd Date Fernanda Concepcion MD [address] [place] [facility] [place] [phone] [facility]07/16/23Team MemberRelationshipSpecialtyStart Date End Date Fernanda Concepcion MD [address] [place] [facility] [place] [phone] [facility]07/16/23 Team Status: Inactive Member Role Status Dates Fernanda Concepcion MD Primary Care Provider Active Start: February 06, 2025 End: February 06jimbo Jimenes FRIED CAKE MAKERBarbaraCAttending ProviderActiveStart: February 06, 2025 End: February 06, 2025CHRISSY Shetheferring ProviderActiveStart: February 06, 2025 Team Status: Inactive Member Role Status Dates Fernanda Concepcion MD Primary Care Provide r, Referring Provider Active Start: February 25, 2025 End: February 25, 2025Cristiano Frausto ProviderActiveStart: February 25, 2025 End: February 25, 2025 Team Status: Inactive Member Role Status Dates Fernanda Concepcion MD Primary Care Provider Active Start: February 25, 2025 End: February 25, 2025Carito Lunaing ProviderActiveStart: February 25, 2025 End: February 25marylu Zapata MDAttending ProviderActiveStart: February 25, 2025 End: February 25, 2025 Team Status: Inactive Member Role Status Dates Fernanda Concepcion MD Primary Care Provider Active Start: March 02, 2025 End: March 02, 2025Nicelizabeth Lambert DOAttending ProviderActiveStart: March 02, 2025 End: March 02, 2025 Team Status: Inactive Member Role Status Dates Fernanda Concepcion MD Primary Care Provider Active Start: March 03, 2025 End: March 03, 2025Cristiano Luna ProviderActiveStart: March 03, 2025 End: March 03, 2025 Team Status: Active Member Role Status Dates Fernanda Concepcion MD Primary Care Provider Active Start: March 10, 2025 Cristiano Luna ProviderActiveStart: March 10, 2025 Team Status: Inactive Member Role Status Dates Fernanda Concepcion MD Primary Care Provider Active Start: March 18, 2025 End: March 18, 2025NicJay Edwardsending ProviderActiveStart: March 18, 2025 End: March 18, 2025 Team Status: Inactive Member Role Status Chung Concepcion MD Primary Care Provider Active Start: March 23, 2025 End: March 23marylu Zapata MDAttending ProviderActiveStart: March 23, 2025 End: March 23, 2025 Team Status: Inactive Member Role Status Dates Fernanda Concepcion MD Primary Care Provider Active Start: March 27, 2025 End: March 27ollyvonne Rodriguez MDAttending ProviderActiveStart: March 27, 2025 End: March 27, 2025 Team Status: Inactive Member Role Status Dates Fernanda Concepcion MD Primary Care Provider Active Start: April 02, 2025 End: April 02, 2025Cristiano Luna ProviderActiveStart: April 02, 2025 End: April 02, 2025 Team Status: Inactive Member Role Status Dates Fernanda Concepcion MD Primary Care Provider Active Start: April 22, 2025 End: April 22, 2025Thomas Arie Zapataending ProviderActiveStart: April 22, 2025 End: April 22, 2025Team MemberRelationshipSpecialtyStart DateEnd Date Fernanda Concepcion MD [address] [place] [facility] [place] [phone] PCP - [facility] Vaaxbofi58/30/23Team MemberRelationshipSpecialtyStart Date End Date Fernanda Concepcion MD [address] [place] [facility] [place] [address] PCP - [facility]07/16/23Team MemberRelationshipSpecialtyStart Date End Date Fernanda Concepcion MD [address] [place] [facility] [place] [address] PCP - [facility]07/16/23 Team Status: Active Member Role/Relationship Status Dates Fernanda Concepcion MD Primary Care Provider Active Team Status: Inactive Member Role/Relationship Status Dates Fernanda Concepcion MD Primary Care Provider Active Start: April 22, 2025 End: April 22, 2025ThArie Thorntonending ProviderActiveStart: April 22, 2025 End: April 22, 2025 Team Status: Active Member Role/Relationship Status Dates Fernanda Concepcion MD Primary Care Provider Active Start: June 30, 2025 Elida Moreau CMAAttending ProviderActiveStart: June 30, 2025 Team Status: Inactive Member Role/Relationship Status Dates Fernanda Concepcion MD Primary Care Provider Active Start: July 06, 2025 End: July 06, 2025Jay Johnending ProviderActiveStart: July 06, 2025 End: July 06, 2025 Team Status: Inactive Member Role/Relationship Status Dates Fernanda Concepcion MD Primary Care Provider Active Start: July 07, 2025 End: July 07Arie Dixonending ProviderActiveStart: July 07, 2025 End: July 07, 2025 Team Status: Inactive Member Role/Relationship Status Dates Fernanda Concepcion MD Primary Care Provider Active Start: July 13, 2025 End: July 13, 2025ThCristiano Thornton ProviderActiveStart: July 13, 2025 End: July 13, 2025 Goals (unrecognized section and content) Goals [...] section and content) DATE CREATED AUTHOR 06/19/2022 [facility] [employer] [facility] DATE CREATED AUTHOR AUTHOR'S SANDEEPIZ ATION 12/31/2022 [facility] DATE CREATED AUTHOR AUTHOR'S ORGANIZ ATION 11/30/2023 [facility] DATE CREATED AUTHOR AUTHOR'S ORGANIZ ATION 02/08/2024 [facility] DATE CREATED AUTHOR AUTHOR'S ORGANIZ ATION 02/09/2024 [facility] DATE CREATED AUTHOR AUTHOR'S ORGANIZ ATION 03/16/2024 [facility] DATE CREATED AUTHOR AUTHOR'S ORGANIZ ATION 02/12/2025 [facility] DATE CREATED AUTHOR AUTHOR'S ORGANIZ ATION 07/09/2025 [facility] REASON FOR VISIT (unrecogniz ed section and content) ReasonCommentsHIDA scan resultsReasonCommentsCOPD6 month follow upReasonComments Gynecologic ExamReasonCommentsTelevisitReasonCommentsRepeat papPatient present for repap. Patient denies any issues or complaints at this time.ReasonComments Temporomandibular Joint PainNeck PainReasonCommentsCOPD6 month follow up with chest x-rayReasonOnset DateCommentsMed Lwatby4406/08/2025 FOR RECORDS PERTAINING TO PATIENTS WHO ARE [...] BE BASED ON THE PRIMARY CLINICAL RECORDS. [employer] provides no warranty or guarantee of the accuracy or completeness of information in this document.
== END 2025-07-17 10:02 | disposition home or self-care (01) ==
PROVIDERS: PCP Family Medicine; Visit Provider Family Medicine
DX: M25.561 Pain in right knee (principal); M47.812 Spondylosis without myelopathy or radiculopathy, cervical region; M50.30 Other cervical disc degeneration, unspecified cervical region
CPT/HCPCS: 72040; 73564

== ENCOUNTER 2025-07-31 13:10 | Outpatient (OUT) | payer OTHER, SELFPAY ==
--- OUTSIDE RECORDS SUMMARY | 2025-07-31 13:18 | XMS_ITS | CCD ---
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 Name Role Phone NO FAMILY, PHYSICIAN Primary Care Provider Dianava DO Dio Randall Attending Provider [phone] FERNANDA CONCEPCION Primary Care Physician [phone] MD Kye Apodaca Attending Provider [phone] MD Stevan Alicia Referring Provider MD Fernanda Concepcion Primary Care Provider Fernanda Concepcion Unavailable DR VIKRAM OSUNA V [...] JAMEY, DR FERNANDA Jimenez Primary Care Unavailable COCNEPCION, DR FERNANDA Jimenez Attending Unavailable CONCEPCION, DR FERNANDA Jimenez Admitting Unavailable CONCEPCION, DR FERNANDA Jimenez Consulting Unavailable CONCEPCION, DR FERNANDA Jimenez Primary Care Unavailable CONCEPCION, DR FERNANDA Jimenez Attending Unavailable CONCEPCION, DR FERNANDA Jimenez Admitting Unavailable CONCEPCION, DR FERNANDA Jimenez Consulting Unavailable CONCEPCION, DR FERNANDA Jimenez Primary Care Unavailable CONCEPCOIN, DR FERNANDA Jimenez Attending Unavailable CONCEPCION, DR [...] MD Fernanda Concepcion Primary Care Provider [phone] RHONDA Kaplan Attending Provider MD Fernanda Concepcion Attending Provider Prashant Mitchell Unavailable DO Prashant Mitchell Attending Provider MD Candelario Johansen Attending Provider [phone] DO Dio Lara Attending Provider Fernanda Concepcion MD Primary Care Provider MD Fernanda Concepcion Primary Care Provider DO Marta Hernandez Attending Provider MD Candelario Johansen Attending Provider DO Dio Lara Attending Provider MD Fernanda Concepcion Primary Care Provider MD Destiny Rodriguez Attending Provider MD Spencer [...] Attending Provider Stevan Alicia MD Referring Provider [phone] Ute Griffin APRN Attending Provider Stevan Alicia MD Referring Provider Fernanda Concepcion MD Primary Care Provider Ute Griffin APRN Attending Provider Stevan Alicia MD Referring Provider [phone] Fernanda Concepcion MD Attending Provider Fernanda Concepcion MD Primary Care Provider Ute Griffin APRN Attending Provider Stevan Alicia MD Referring Provider Fernanda Concepcion MD Attending Provider Fernanda Concepcion MD Primary Care Provider Fernanda Concepcion MD Primary Care Provider [phone] Fernanda Concepcion MD Primary Care Provider Marta [...] Provider Fernanda Concepcion MD Primary Care Provider [phone] Destiny Rodriguez MD Attending Provider [phone] Jalil DOMINGUEZ-C, Jeanette E Attending Provider Fernanda Concepcion MD Referring Provider Tad Zapata MD Attending Provider Cathryn Lambert DO Attending Provider Fernanda Concepcion MD Attending Provider Destiny Rodriguez MD Attending Provider [phone] Fernanda Concepcion MD Primary Care Provider [phone] Tad Zapata MD Attending Provider Elida Moreau CMA Attending Provider Unavaila ble Cathryn Lambert DO Attending Provider Destiny Rodriguez MD Attending Provider [phone] CANDICE PALENCIA Attending Unavailable STEVAN ALICIA Attending Unavailable MARKEL VICENTE Attending Unavailable MARKEL VICENTE Referring Unavailable MARTA HERNANDEZ Attending Unavailable STEVAN ALICIA Referring Unavailable MARTA HERNANDEZ Attending Unavailable STEVAN ALICIA Attending Unavailable Fernanda Concepcion MD Attending Provider Allergies Allergy ClassificationReported Allergen(s)Allergy TypeDate of OnsetReaction(s) FacilityAcetaminophen (1 source)AcetaminophenDrug Xfylzxc55-46-9631Zgmttmk ReactionSelect [facility] DublinCephalosporins (antibiotic) (1 source)cefdinirDrug Lrfwckk44-00-6209Chslkis ReactionSelect Medical [facility] - Dublincyclobenzaprine (1 source)cyclobenzaprineDrug Zxkvyiy56-06-6972Kffjucy ReactionSelect Medical [facility] Rehabilitation Hospital - DublinOpioid Agonists (1 source)oxyCODONEDrug Alznucm16-49-1636Vsmyywr ReactionSelect [facility] (17 sources)Acetaminophen / oxyCODONEDrug AllergyUnkTacatì Other (19 sources)cefdinirDrug Vtneywe05-86-9123Hmtnfcg, Unknown ReactionSelect Medical [facility] - Dublin (17 sources)cyclobenzaprineDrug AllergyUnkRobosoft TechnologiesFreeman [facility] Other (2 sources)Acetaminophen / oxyCODONEDrug AllergyThe [facility] (3 sources)Allergies ReconciledPropensity to adverse reactionsUniversity Hospital [facility] Other (3 sources)patient allergy list reviewed by nurse or physiciaPropensity to adverse hmfkctzux55-85-4171Zjwvmoi:[facility] Other (3 sources)Flexeril *MUSCULOSKELETAL THERAPY AGENTS*Propensity to adverse kcxjywfzg58-08-7653UgzrcesGvtpo [facility] Other (20 sources)GlycerinDrug Mtiyjyz74-68-0854GdzyygcIXSK Healthcare (20 sources)House dust miteAllergy to qfvafcmmu94-14-0398BhswkayTSDO Healthcare (20 sources)Mold ExtractDrug Mraxhtj04-18-1324ZsyumQXIN Healthcare (20 sources)Cat Hair ExtractAllergy to -34-5604ZshnucoDWYU Healthcare (2 sources)AcetaminophenDrug Ytuqsxm55-29-5194Vwjsbsb [facility] (2 sources)cyclobenzaprineDrug Doyzilv77-21-7743Jsgdowb [facility] (2 sources)oxyCODONEDrug Fogcjtp65-80-5541Xxsgfrm [facility] (1 source)No Known Medication Allergies; Translations: [No Known Medication Allergies]Propensity to adverse reactions (disorder)[facility] Medications Current Medications MedicationDrug Class(es)DatesSig (Normalized)Sig (Original)[id number] 200 actuat albuterol 0.09 mg/actuat metered dose inhaler (15 sources)beta2-Adrenergic AgonistStart: 49-95-2800kdso 1 puff(s) by inhalation four times dailyAlbuterol Sulfate 90 mcg/actuation HFA aerosol inhaler Active 2 PUFF INHALATION Four times daily March 18, 2025 12:00am Complies with drug therapyStart: 02-10-2025 End: 56-44-1458aqky 2 puff(s) by inhalation every four hours for wheezing albuterol HFA (ProAir HFA) 90 mcg/act inhaler Indications: Chronic obstructive pulmonary disease, unspecified COPD type (HCC) Inhale 2 puffs every 4 (four) hours if needed for wheezing 18 g 11 02/10/2025 02/10/2026 Activebenzonatate 200 mg oral capsule (20 sources)Non-narcotic AntitussiveStart: 80-05-7176htbn 1 capsule by mouth every eight hoursBenzonatate 200 MG 1 capsule Orally Three times a day for 10 day(s) Feb, ActiveStart: 07-18-2022 End: 47-86-3515ltak 1 capsule by mouth three times dailyBenzonatate 100 mg Capsule Discontinued 100 MG PO Three times daily July 18, 2022 12:00am December 10, 2023 10:38amcetirizine hydrochloride 10 mg oral capsule (20 sources)Histamine-1 Receptor AntagonistStart: 97-61-7949cbch 1 capsule by mouth once daily as neededCetirizine (Zyrtec) 10 mg capsule Active 10 MG PO Daily as needed February 06, 2025 12:00am Complies with drug therapyStart: 04-04-2019 End: 80-16-6031qcny 1 tablet by mouth once dailyCetirizine 10 mg tablet Discontinued 10 MG PO Daily April 04, 2019 12:00am December 10, 2023 10:27am cholecalciferol 0.025 mg oral capsule (20 sources)Vitamin DStart: 84-74-8071hvid 1 capsule by mouth once daily Cholecalciferol (Vitamin D3) (Vitamin D3) 25 mcg (1,000 unit) Capsule Active 25 MCG PO Daily July 18, 2022 12:00am Complies with drug therapyciclopirox 10 mg/ml medicated shampoo (14 sources)Start: 86-88-3252Upxfzfumvf 1 % shampoo 11/17/2024 Active Cyclosporine (20 sources)Calcineurin Inhibitor ImmunosuppressantStart: 19-31-9479uriw 1 drop(s) into the eye(s) every twelve hoursStart: 21-96-7903gfue 1 drop(s) into the eye(s) every twelve hoursCyclosporine (Restasis) 0.05 % dropperette Active 1 DROPS EYE-BOTH Every 12 hours March 18, 2025 12:00am Complies with drug therapy Start: 08-37-4840saef 1 drop(s) into the eye(s) in the morningRestasis 0.05 % ophthalmic emulsion Administer 1 drop into both eyes in the morning and 1 drop before bedtime. 12/11/2023 Eohaxw29 actuat fluticasone furoate 0.1 mg/actuat / umeclidinium 0.0625 mg/actuat / vilanterol 0.025 mg/actuat dry powder inhaler (5 sources)Anticholinergic, Corticosteroid, beta2-Adrenergic AgonistStart: 02-10-2025 End: 12-81-2545pvcs 1 puff(s) by inhalation once daily Iokrtvdvoou-Rqomffoip-Dtovzj (Trelegy Ellipta) 100-62.5-25 MCG/ACT aerosol powder Indications: Chronic obstructive pulmonary disease, unspecified COPD type ([facility]) Inhale 1 puff Daily 1 each 5 02/10/2025 05/19/2025 Discontinuedfolic acid 1 mg oral tablet (20 sources)Start: 61-87-6210hwck 1 tablet by mouth once dailyFolic Acid 1 mg Tablet Active 1 MG PO Daily July 14, 2022 12:00am Complies with drug therapy End: 89-12-3576yaehc acid (Folvite) 400 MCG tablet 1 (one) time each day at the same time. 07/01/2024 Discontinued(Med list cleanup)folic acid 1 mg / vitamin b12 0.5 mg oral tablet (20 sources)Vitamin X22Caulo: 10-31-3844jcsr 1 tablet by mouth once dailyVitamin C99-Vffxc Acid 0.5-1 mg Tablet Active 1 TAB PO Daily July 18, 2022 12:00am Complies with drug therapyhydrocortisone 25 mg/ml topical cream (17 sources)CorticosteroidStart: 05-13-0524Ymnpxppoakxxhv (Perianal) 2.5 % 1 application Externally Twice a day for 30 days Dec, ActiveStart: 35-49-5698Zgrltjrwvcirmm (Perianal) 2.5 % 1 application Externally Twice a day for 30 days Dec, Activeibuprofen 800 mg oral tablet (20 sources)Nonsteroidal Anti-inflammatory DrugStart: 08-22-2024 End: 21-18-1232aaxr 1 tablet by mouth every eight hours [...] PAIN Complies with drug therapyStart: 08-16-2023 End: 61-49-8143fxql 1 tablet by mouth every eight hours [...] hand Primary osteoarthritis, right handStart: 08-16-2023 End: 80-77-3228pvjj 1 tablet by mouth once daily as needed for painIbuprofen 800 mg tablet Discontinued 800 MG PO Daily as needed for pain 30 December 10, 2023 1:00pm April 01, 2024 8:45amStart: 27-10-8036dmjf 1 tablet by mouth four times daily as neededibuprofen 800 MG tablet TAKE 1 TABLET BY MOUTH FOUR TIMES A DAY NEEDED 08/16/2023 ActiveStart: 99-76-6266qrmp 1 tablet by mouth every three hours at mealtimeibuprofen 800 mg Tab 800 mg = 1 tab(s), Oral, q3hr, with food or milk, # 30 tab(s), Refills(s) 3, Pharmacy: [facility]/pharmacy #[id number], 168, cm, 05/16/23 9:58:00 EDT, Height/Length Dosing, 52, kg, 05/16/23 9:58:00 EDT, Weight Dosing Start Date: 05/16/23 Status: OrderedStart: 04-04-2019 End: 44-37-7548edgn 1 tablet by mouth every six hours as needed for pain Ibuprofen 800 mg tablet Discontinued 800 MG PO Q6H as needed for pain 30 0 April 04, 2019 12:00am December 10, 2023 1:03pm24 hr mirabegron 25 mg extended release oral tablet (1 source)beta3-Adrenergic Agonisttake 1 tablet by mouth every twenty-four hours Myrbetriq 25 MG 1 tablet Orally Once a day Activenaloxone hydrochloride 40 mg/ml nasal spray (4 sources)Opioid AntagonistStart: 99-20-5483Zxquhmaa (Narcan) 4 mg/actuation spray,non-aerosol Active 4 MG INTRANASAL every 2 to 3 minutes as needed for opioid overdose 2 June 26, 2025 12:00am spray 1 dose into ONE nostril; alternate nostrils w each dose until help arrives Complies with drug therapy omeprazole 40 mg delayed release oral capsule (20 sources)Proton Pump InhibitorStart: 03-07-2024 End: 28-93-2499ijud 1 capsule by mouth once dailyOmeprazole 40 mg capsule,delayed release(DR/EC) Active 40 MG PO Daily 90 90 3 April 02, 2025 8:59am Complies with drug therapyStart: 04-04-2019 End: 21-17-8502jfhi 1 capsule by mouth once dailyOmeprazole 20 mg capsule,delayed release(DR/EC) Discontinued 20 MG PO Daily April 04, 2019 12:00amJune 2023 8:18amOXcarbazepine 300 mg oral tablet (4 sources)Anti-epileptic AgentStart: 12-93-4702Smpquskkzbyzj (Trileptal) 300 mg tablet Active 0 PO Twice daily 60 2 July 06, 2025 12:00am 1/2po bid x 2 weeks then 1 po bid. orally twice daily; Complies with drug therapy polysaccharide iron complex 391 mg oral capsule (20 sources)Start: 23-65-0411qfrk 1 capsule by mouth once dailyiron polysaccharides (ProFe) 391.3 (180 Fe) MG capsule Indications: Iron deficiency Take 1 capsule (391.3 mg) by mouth Daily 90 capsule 3 06/08/2025 ActiveStart: 06-06-2024 End: 38-27-6059xhzk 1 capsule by mouth once dailyiron polysaccharides (ProFe) 391.3 (180 Fe) MG capsule Indications: Iron deficiency Take 1 capsule (391.3 mg) by mouth Daily 90 capsule 3 06/06/2024 06/08/2025 Discontinued (Reorder)Start: 02-25-8096nvjx 1 capsule by mouth twice dailyiron polysaccharides (ProFe) 391.3 (180 Fe) MG capsule Indications: Iron deficiency TAKE 1 CAPSULE BY MOUTH TWICE A DAY FOR 30 DAYS 60 capsule 0 08/15/2023 ActiveStart: 07-14-2022 End: 35-99-9180vsev 1 capsule by mouth once dailyPolysaccharide Iron Complex (Pro Fe) 180 mg iron Capsule Active 180 MG PO Daily 90 90 3 September 20, 2022 1:00am Iron deficiency Iron deficiency Complies with drug therapyProFe 180 mg oral capsule (10 sources)Start: 60-90-3928HnwIs 180 mg oral capsule Refills(s) 0 Start Date: 12/12/22 Status: Orderedpyridoxine hydrochloride 25 mg oral tablet (20 sources)Start: 68-44-2936jwww 1 tablet by mouth every eight hourspyridoxine (Vitamin B-6) 25 MG tablet Indications: Mood swings TAKE 1 TABLET (25 MG) BY MOUTH EVERY8 (EIGHT) HOURS 90 tablet 1 05/19/2025 ActiveStart: 60-16-7208sfny 1 tablet by mouth three times dailyPyridoxine (Vitamin B6) 25 mg tablet Active 25 MG PO Three times daily August 20, 2024 1:00am Complies with drug therapy Start: 08-04-2024 End: 37-41-5558haqy 1 tablet by mouth once dailyPyridoxine (Vitamin B6) 10 mg tablet Discontinued 10 MG PO Daily August 04, 2024 12:00am August 20, 2024 10:15amStart: 09-08-1664xuhn 1 tablet by mouth once dailyPyridoxine (Vitamin B6) 10 mg tablet Active 10 MG PO Daily August 04, 2024 12:00am Start: 07-17-2024 End: 49-91-3241avnq 1 tablet by mouth every eight hourspyridoxine (Vitamin B-6) 25 MG tablet Indications: Mood swings TAKE 1 TABLET (25 MG) BY MOUTH EVERY8 (EIGHT) HOURS 90 tablet 2 10/07/2024 Activesertraline 50 mg oral tablet (20 sources)Serotonin Reuptake InhibitorStart: 80-47-7068oixo 1 tablet by mouth once dailySertraline 50 mg tablet Active 50 MG PO Daily March 18, 2025 12:00am Complies with drug therapyStart: 07-17-2024 End: 70-32-9099lnzo 1 tablet by mouth once dailySertraline (Zoloft) 25 mg tablet Discontinued 25 MG PO Daily August 20, 2024 1:00am December 11, 2024 10:08am Spiriva Respimat (5 sources)Spiriva Respimat Activetiotropium 0.018 mg inhalation powder (20 sources)AnticholinergicStart: 53-10-9727apsb 1 capsule by inhalation once dailyTiotropium Jeddo (Spiriva With Handihaler) 18 mcg capsule, w/inhalation device Active 1 CAP INHALATION Daily February 06, 2025 12:00am puncture 1 cap using device; one dose = 2 inhalations Complies with drug therapyStart: 01-10-2024 End: 18-31-9301txzs 1 puff(s) by inhalation once dailyTiotropium Jeddo (Spiriva Respimat) 2.5 mcg/actuation mist Discontinued 2 PUFF INHALATION Daily January 10, 2024 12:00am July 14, 2024 9:03amStart: 01-01-2024 End: 76-66-8611vvcy 2 puff(s) by inhalation once dailytiotropium (Spiriva Respimat) 2.5 MCG/ACT inhaler Indications: Chronic obstructive pulmonary disease , unspecified COPD type (HCC) Inhale 2 puffs Daily 1 each 5 02/02/2025 02/02/2026 ActiveStart: 12-25-2023 End: 12-41-3609zbwxxuyozr bromide Discontinued INHALATION Daily December 24, 2023 11:00pm January 10, 2024 1:21pmStart: 12-25-2023 End: 91-98-8978fisdgggpbj bromide Discontinued INHALATION Daily December 25, 2023 12:00am January 10, 2024 2:21pmStart: 17-53-7149isgiilwxkl bromide (Spiriva Respimat) Active INHALATION December 25, 2023 12:00amStart: 10-10-2023 End: 82-68-4374vknf 2 puff(s) by inhalation in the morningtiotropium (Spiriva Respimat) 2.5 MCG/ACT inhaler Indications: Chronic obstructive pulmonary disease , unspecified COPD type (CMS/HCC) Inhale 2 puffs in the morning. 1 each 5 10/10/2023 10/09/2024 ActiveTiotropium Jeddo (Spiriva With Handihaler) 18 mcg capsule, w/inhalation device (2 sources)Start: 81-02-0022qcoz 1 capsule by inhalation once dailyTiotropium Jeddo (Spiriva With Handihaler) 18 mcg capsule, w/inhalation device Active 1 CAP INHALATION Daily February 06, 2025 12:00am puncture 1 cap using device; one dose = 2 bobeuxbhcij09 hr tolterodine tartrate 2 mg extended release oral capsule (5 sources)Cholinergic Muscarinic AntagonistStart: 26-04-6362vrfj 1 capsule by mouth once dailyDetrol LA 2 mg Cap-ER 2 mg = 1 cap(s), Oral, Daily, # 30 cap(s), Refills(s) 11, Pharmacy: [facility]/pharmacy #[id number], 168, cm, 12/12/22 8:36:00 EDT, Height/Length Dosing, 52.6, kg, 12/12/22 8:36:00 EDT, Weight Dosing Start Date: 12/12/22 Status: OrderedvalACYclovir 500 mg oral tablet (20 sources)Herpesvirus Nucleoside Analog DNA Polymerase Inhibitor, Herpes Simplex Virus Nucleoside Analog DNA Polymerase Inhibitor, Herpes Zoster Virus Nucleoside Analog DNA Polymerase InhibitorStart: 01-12-2025 End: 33-26-1101feoq 1 tablet by mouth once dailyValacyclovir 500 mg tablet Active 500 MG PO Daily March 18, 2025 12:00am Complies with drug therapyStart: 07-10-2024 End: 54-63-7648husVSGxjaxcc (Valtrex) 500 MG tablet Indications: Chronic vulvitis Take 1 tablet (500 mg) by mouth twice daily for 3 days. Then daily 30 tablet 5 07/10/2024 07/10/2025 Activevarenicline 0.5 mg oral tablet (2 sources)Partial Cholinergic Nicotinic AgonistStart: 10-16-0370pvyj 1 tablet by mouth once dailyAPO-Varenicline 0.5 MG 1 tablet after eating with a full glass of water Orally Once a day for 30 days Dec, Active Completed/Discontinued Medications MedicationDrug Class(es)DatesSig (Normalized)Sig (Original)acetaminophen 325 mg / diphenhydrAMINE hydrochloride 50 mg oral tablet (11 sources)Histamine-1 Receptor AntagonistStart: 07-17-2024 End: 28-47-2074abubondyidMFDTH-acetaminophen (Unisom PM Pain) 50-325 MG tablet Indications: Insomnia, unspecified type Take 1 tablet by mouth as needed at bedtime for sleep 14 tablet 3 07/17/2024 02/10/2025 Discontinuedacetaminophen 325 mg / oxyCODONE hydrochloride 5 mg oral tablet (20 sources)Opioid AgonistStart: 04-04-2019 End: 18-80-4457chsp 1 tablet by mouth every four to [...] Nucleoside Analog DNA Polymerase InhibitorStart: 02-04-2024 End: 00-13-0493Nljkhovpn 400 mg tablet Discontinued 400 MG PO March 18, 2024 12:00am March 18, 2025 9:45amStart: 04-04-2019 End: 66-43-2333syio 1 capsule by mouth once dailyAcyclovir 200 mg capsule Discontinued 200 MG PO Daily April 04, 2019 12:00am January 10, 2024 2:12pmtake 1 tablet by mouth once dailyacyclovir (Zovirax) 400 MG tablet TAKE 1 TABLET BY MOUTH EVERY DAY FOR 30 DAYS 0 ActiveALPRAZolam 1 mg oral tablet (20 sources)BenzodiazepineStart: 04-01-2024 End: 80-49-9741vepf 1 tablet by mouth twice daily as needed for anxiety Alprazolam 1 mg tablet Discontinued 1 MG PO Twice daily as needed for anxiety 40 30 0 December 11, 2024 11:04am January 20, 2025 2:25pm Persistent insomnia Anxiety Insomnia, unspecified Anxiety disorder,unspecifiedStart: 04-04-2019 End: 50-57-2678cbsp 1 tablet by mouth at bedtimeAlprazolam 1 mg tablet Discontinued 1 MG PO Bedtime 30 30 0 December 10, 2023 1:01pm January 07, 2024 4:37pm Persistent insomnia Insomnia, unspecifiedStart: 04-04-2019 End: 49-68-7038brqf 1 tablet by mouth once daily at bedtime as needed for sleep Alprazolam 1 mg tablet Discontinued 1 MG PO Daily at bedtime as needed for sleep 30 30 March 19, 2024 12:19pm April 01, 2024 9:16am Persistent insomnia Insomnia, unspecifiedStart: 04-04-2019 End: 98-28-2145qwqz 1 mg by mouth at bedtimeAlprazolam Active 1 MG PO Bedtime 30 December 10, 2023 1:01pmamLODIPine 2.5 mg oral tablet (5 sources)Dihydropyridine Calcium Channel BlockerStart: 03-28-2024 End: 27-52-3716crie 1 tablet by mouth once dailyamLODIPine (Norvasc) 2.5 MG tablet Take 2.5 mg by mouth Daily 03/28/2024 07/01/2024 Discontinued (Med list cleanup)Start: 54-07-1972nflh 1 tablet by mouth once dailyamLODIPine 5 mg Tab 5 mg = 1 tab(s), Oral, Daily, # 30 tab(s), Refills(s) 2, Pharmacy: [facility]/pharmacy #[id number], 168, cm, 03/14/24 13:40:00 EDT, Height/Length Dosing, 52.2, kg, 03/14/24 13:46:00 EDT, Weight Dosing Start Date: 03/26/24 Status: Orderedamoxicillin 500 mg oral capsule (3 sources)Penicillin-class AntibacterialStart: 12-18-2023 End: 09-43-7847imzqkfrkwpv (Amoxil) 500 MG capsule 12/18/2023 07/01/2024 Discontinued (Med list cleanup)amoxicillin 875 mg / clavulanate 125 mg oral tablet (20 sources)Penicillin-class AntibacterialStart: 07-14-2024 End: 79-71-4521oamv 1 tablet by mouth twice dailyAmoxicillin-Pot Clavulanate 875-125 mg tablet Discontinued 1 TAB PO Twice daily 14 0 July 14, 2024 12:00am August 04, 2024 11:32amazithromycin 250 mg oral tablet (20 sources)Macrolide AntimicrobialStart: 08-20-2024 End: 85-43-7903Rchucrfwahsq 250 mg tablet Discontinued 0 PO .COMPLEX [...] oral capsule (20 sources)Cephalosporin AntibacterialStart: 04-04-2019 End: 93-02-9459pzrq 1 capsule by mouth every eight hoursCephalexin 500 mg capsule Discontinued 500 MG PO Q8H 21 7 0 April 04, 2019 12:00am July 14, 2022 2:49pmciprofloxacin 500 mg oral tablet (7 sources)Quinolone AntimicrobialStart: 41-77-7729Dnuwn 500 mg Tab 500 mg = 1 tab(s), Oral, As Directed, Pt to take 1 tab the day before procedure and the 2nd tab the day of procedure once completed., # 2 tab(s), Refills(s) 0, Pharmacy: [facility]/pharmacy#[id number], 168, cm, 08/09/22 9:45:00 EST, Height/Length Dosing, 52.6, kg... Start Date: 08/15/22 Status: Orderedtake 1 tablet by mouth every twelve hoursCiprofloxacin HCl 500 MG 1 tablet Orally every 12 hrs for 7 days Active diclofenac sodium 0.01 mg/mg topical gel (20 sources)Nonsteroidal Anti-inflammatory DrugStart: 12-04-2023 End: 93-22-4729Xuugalqvdr Sodium (Voltaren Arthritis Pain) 1 % gel Discontinued 0 TOPICAL Twice daily 100 30 2 December 04, 2023 12:00am March 18, 2025 9:46am 1- 2 grams topically twice dailyStart: 80-88-7674Cdryxdzbgq Sodium (Voltaren Arthritis Pain) 1 % gel Active 0 TOPICAL Twice daily 100 November 11:00pm 1-2 grams topically twice dailyStart: 52-70-4481Uqeiitkxej Sodium (Voltaren Arthritis Pain) 1 % gel Active 0 TOPICAL Twice daily 100 November 12:00am 1-2 grams topically twice dailydoxepin 3 mg oral tablet (20 sources)Tricyclic AntidepressantStart: 07-22-2024 End: 90-48-5184wkcg 1 tablet by mouth once daily at bedtime as needed for sleep Doxepin 3 mg tablet Discontinued 3 MG PO Daily at bedtime as needed for sleep 30 0 July 22, 2024 1:00am August 04, 2024 11:33amStart: 12-12-2023 End: 65-10-8144ilkj 1 capsule by mouth once daily in the evening as needed doxepin (SINEquan) 10 MG capsule TAKE 1 CAPSULE BY MOUTH EVERY EVENING NEEDED FOR ITCH 12/12/2023 07/01/2024 Discontinued (Med list cleanup)doxycycline hyclate 100 mg oral tablet (20 sources)Tetracycline-class DrugStart: 02-08-2024 End: 28-56-3986bqir 1 tablet by mouth twice dailyDoxycycline Hyclate 100 mg tablet Discontinued 100 MG PO Twice daily 14 0 February 08, 2024 12:00am February 19, 2024 10:15amestradiol 0.1 mg/ml vaginal cream (4 sources)EstrogenStart: 09-14-2023 End: 25-33-2778hptaofnab (Estrace) 0.1 MG/GM vaginal cream Indications: Vaginal atrophy 1 gm application daily at bedtime for 2 weeks, then 1 gm application 2 times/week. 34 g 1 09/14/2023 07/01/2024 Discontinued (Med list cleanup) estrogens, conjugated (mcc) 0.625 mg / medroxyPROGESTERone acetate 5 mg oral tablet (10 sources)Progestin, EstrogenStart: 11-10-2024 End: 85-44-4744drvj 0.625-5 mg by mouth once dailyestrogen, conjugated,- medroxyPROGESTERone (Prempro) 0.625-5 MG tablet Indications: Mood swings , Other fatigue , Vaginal atrophy Take 1 tablet by mouth Daily 90 tablet 3 11/10/2024 02/10/2025 DiscontinuedNorgestimate-Ethinyl Estradiol (20 sources)Progestin, EstrogenStart: 04-04-2019 End: 61-90-8255Qzblndtgjyul-Ethinyl Estradiol (Sprintec (28)) 0.25-35 mg-mcg tablet Discontinued 1 TAB PO As Directed April 03, 2019 11:00pm July 18, 2022 9:48amStart: 04-04-2019 End: 16-05-2464Gyvcunjjsaqs-Ethinyl Estradiol (Sprintec (28)) 0.25-35 mg-mcg tablet Discontinued 1 TAB PO As Directed April 04, 2019 12:00am July 18, 2022 10:48amStart: 73-39-7792Sxzwnxfffsqb-Ethinyl Estradiol (Sprintec (28)) 0.25-35 mg-mcg tablet Active 1 TAB PO As Directed April 04, 2019 12:00am fluconazole 150 mg oral tablet (20 sources)Azole AntifungalStart: 07-14-2024 End: 74-85-8670Pslzkzuraxl 150 mg tablet Discontinued 150 MG PO Q3D 2 0 July 14, 2024 12:00am August 04, 2024 11:33amStart: 10-06-2023 End: 13-07-1637ibvi 1 tablet by mouth in the morningfluconazole (Diflucan) 150 MG tablet Indications: Chronic obstructive pulmonary disease, unspecified COPD type (CMS/HCC) Take 1 tablet (150 mg) by mouth in the morning. 1 tablet 1 10/06/2023 07/01/2024 Discontinued (Med list cleanup)Start: 92-45-6967urrj 1 tablet by mouth onceFluconazole 150 MG 1 tablet Orally once for 1 days Jun, ActiveStart: 04-04-2019 End: 92-53-1841kotf 1 tablet by mouth once dailyFluconazole (Diflucan) 150 mg tablet Discontinued 150 MG PO Daily 1 1 0 April 04, 2019 3:15pm July 18, 2022 10:48am administer on day 1 of therapyfluorouracil 50 mg/ml topical cream (3 sources)Nucleoside Metabolic InhibitorStart: 05-02-2024 End: 64-14-0654osfxotsdylsj (Efudex) 5 % cream APPLY TO FACE EVERY NIGHT [id number].TAKE A WEEK OFF & REPEAT DAILY X2 MORE WEEKS.*START IN JUNE* 05/02/2024 07/01/2024 Discontinued (Med list cleanup)gabapentin 100 mg oral capsule (20 sources)Anti-epileptic AgentStart: 04-06-2025 End: 02-51-4305lnei 2 capsules by mouth three times dailyGabapentin 100 mg capsule Discontinued 200 MG PO Three times daily 180 30 0 April 06, 2025 4:43pm July 06, 2025 10:52amStart: 02-25-2025 End: 97-97-1130veso 1 capsule by mouth three times dailyGabapentin 100 mg capsule Discontinued 100 MG PO Three times daily March 18, 2025 9:47am March 4:44pmStart: 70-24-7739pavxwozcfo (Neurontin) 100 MG capsule Indications: Paresthesias Take one cap every 8 hours or all at bedtime 90 capsule 2 01/06/2025 Activeketoconazole 20 mg/ml medicated shampoo (3 sources)Azole AntifungalStart: 04-21-2024 End: 30-60-8200hwsdewtowcki (NIZOral) 2 % shampoo WASH THE SCALP ONCE DAILY LEAVE ON FOR 5 MINUTES THEN RINSE OFF THEN WASH NORMAL 04/21/2024 07/01/2024 Discontinued (Med list cleanup)meloxicam 15 mg oral tablet (20 sources)Nonsteroidal Anti-inflammatory DrugStart: 05-13-2024 End: 29-67-7723csmm 1 tablet by mouth once dailyMeloxicam 15 mg tablet Discontinued 15 MG PO Daily 30 2 May 13, 2024 12:00am May 13, 2024 8:36am painStart: 28-49-4874pcqf 1 tablet by mouth every twenty-four hours Meloxicam 15 MG 1 tablet Orally Once a day for 30 days Aug, Active methylPREDNISolone 4 mg oral tablet (16 sources)CorticosteroidStart: 03-23-2025 End: 15-11-6618Ggitywpmskrmqtuzpx 4 mg tablets,dose pack Discontinued MG PO March 23, 2025 12:00am July 07, 2025 10:19amStart: 01-16-2025 End: 24-79-2045avylzyPMAGKWFhzzqy (Medrol Dospak) 4 MG tablets Indications: Muscle strain of left foot, initial encounter Follow schedule on package instructions 21 tablet 01/16/2025 05/19/2025 DiscontinuedStart: 01-16-2025 methylPREDNISolone (Medrol Dospak) 4 MG tablets Indications: Muscle strain of left foot, initial encounter Follow schedule on package instructions 21 tablet 01/16/2025 Zckebd32 hr metoprolol succinate 25 mg extended release oral tablet (20 sources)beta-Adrenergic BlockerStart: 01-10-2024 End: 74-04-8663efpl 1 tablet by mouth every twenty-four hoursMetoprolol Succinate 25 mg tablet extended release 24 hr Discontinued MG PO January 10, 2024 12:00am February 19, 2024 10:15amStart: 01-10-2024 End: 83-10-8082Apvfigbics Succinate Discontinued MG PO January 09, 2024 11:00pm February 19, 2024 9:15amMultivitamin (Multiple Vitamin) Tablet (20 sources)Start: 07-14-2022 End: 14-54-7189fdci 1 tablet by mouth once dailyMultivitamin (Multiple Vitamin) Tablet Discontinued 1 TAB PO Daily July 13, 2022 11:00pm 2023 9:28amStart: 07-14-2022 End: 41-49-4894ewys 1 tablet by mouth once dailyMultivitamin (Multiple Vitamin) Tablet Discontinued 1 TAB PO Daily July 14, 2022 12:00am 2023 10:28amStart: 02-91-0365igfa 1 tablet by mouth once dailyMultivitamin (Multiple Vitamin) Tablet Active 1 TAB PO Daily July 13, 2022 11:00pmStart: 35-35-0115vcdu 1 tablet by mouth once dailyMultivitamin (Multiple Vitamin) Tablet Active 1 TAB PO Daily July 14, 2022 12:00amprazosin 5 mg oral capsule (20 sources)alpha-Adrenergic BlockerStart: 11-03-2024 End: 65-61-0873xwvsqtcg (Minipress) 5 MG capsule 11/03/2024 05/19/2025 DiscontinuedStart: 09-23-2024 End: 50-46-6780pqvo 1 capsule by mouth in the evening as neededPrazosin 5 mg capsule Discontinued 0 .ROUTE .COMPLEX as needed December 11, 2024 10:07am March 18, 2025 9:43am TAKE 1 CAPSULE BY MOUTH IN THE EVENING PRN;Start: 08-20-2024 End: 57-52-5787wdoh 1 capsule by mouth once daily in the eveningPrazosin 5 mg capsule Discontinued 5 MG PO Every evening 30 0 August 20, 2024 11:19am September 23, 2024 1:12pmStart: 07-19-2024 End: 73-89-3779gzpl 1 capsule by mouth once daily in the eveningPrazosin 5 mg capsule Discontinued 5 MG PO Every evening 30 0 July 19, 2024 12:00am July 22, 2024 9:35ampredniSONE 5 mg oral tablet (20 sources)Start: 12-04-2023 End: 76-56-3232Oxvmhyavtg 5 mg tablet Discontinued 5 MG PO As Directed 19 7 0 December 04, 2023 12:00am November 10:28am Take 4 pills by mouth x2 days, take 3 pills by mouth x2 days, take 2 pills by mouth x2days, take 1 pill by mouth x1 day.propylene glycol liquid external solution (3 sources)Start: 05-20-2024 End: 09-66-2787abdghwjtq glycol liquid external solution 05/20/2024 07/01/2024 Discontinued (Med list cleanup)Start: 82-71-3031jqjrcgnyn glycol liquid external solution 05/20/2024 Activeteepee splint right thumb (20 sources)Start: 01-08-2024 End: 11-80-6131irmxyg splint right thumb Discontinued 0 .Route .MEDSUPPLY 1 0 January 08, 2024 4:12pm January 10, 2024 2:21pm As directedStart: 01-08-2024 End: 84-63-3582hxuchn splint right thumb Discontinued 0 .Route .MEDSUPPLY 1 January 08, 2024 3:12pm January 10, 2024 1:21pm As directedStart: 01-08-2024 End: 86-79-6329skadmm splint right thumb Discontinued 0 .Route .MEDSUPPLY 1 January 08, 2024 4:12pm January 10, 2024 2:21pm As directedStart: 01-08-2024 End: 15-65-3363ihqcrw splint right thumb Discontinued 0 .Route .MEDSUPPLY 1 0 January 08, 2024 12:00am December 4:12pm As directedStart: 01-08-2024 End: 93-02-5222igunqm splint right thumb Discontinued 0 .Route .MEDSUPPLY 1 January 07, 2024 11:00pm January 08, 2024 3:12pm As directedStart: 01-08-2024 End: 96-41-4230cwxsti splint right thumb Discontinued 0 .Route .MEDSUPPLY 1 January 08, 2024 12:00am January 08, 2024 4:12pm As directedStart: 01-08-2024 teepee splint right thumb Active 0 .Route .MEDSUPPLY 1 January 08, 2024 12:00am As directedteepee splint- right thumb (20 sources)Start: 03-18-2024 End: 75-61-3907apzplr splint- right thumb Discontinued 0 .Route .MEDSUPPLY 1 0 March 18, 2024 8:41am August 11:16am Arthritis of carpometacarpal (CMC) joint of right thumb Arthritis of right hand Unilateral primary osteoarthritis of first carpometacarpal joint, right hand Primary osteoarthritis, righthand pain As directed. Please specialty order.Start: 03-18-2024 End: 12-05-2887cizwrg splint- right thumb Discontinued 0 .Route .MEDSUPPLY 1 March 18, 2024 8:41am August 20, 2024 11:16am As directed. Please specialty order.Start: 03-18-2024 End: 31-98-0434krbbgm splint- right thumb Discontinued 0 .Route .MEDSUPPLY March 18, 2024 7:41am August 20, 2024 10:16am As directed. Please specialty order.Start: 85-25-0407fvfcjv splint- right thumb Active 0 .Route .MEDSUPPLY March 18, 2024 7:41am As directed. Please specialty order.Start: 03-18-2024 [place]pee splint- right thumb Active 0 .Route .MEDSUPPLY 1 March 18, 2024 8:41am As directed. Please specialty order.Start: 02-12-2024 End: 51-75-3667ilivgu splint- right thumb Discontinued 0 .Route .MEDSUPPLY 1 0 February 12, 2024 12:00am March 18, 2024 8:41am Arthritis of carpometacarpal (CMC) joint of right thumb Arthritis of right hand Unilateralprimary osteoarthritis of first carpometacarpal joint, right hand Primary osteoarthritis, right hand pain As directed. Please specialty order.Start: 02-12-2024 End: 62-02-6201aszejm splint- right thumb Discontinued 0 .Route .MEDSUPPLY February 11, 2024 11:00pm March 1847:41am As directed. Please specialty order. Start: 02-12-2024 End: 20-45-2036ddlblw splint- right thumb Discontinued 0 .Route .MEDSUPPLY February 12, 2024 12:00am March 1848:41am As directed. Please specialty order. Start: 87-57-4069noqtlm splint- right thumb Active 0 .Route .MEDSUPPLY February 12, 2024 12:00am As directed. Please specialty order.traMADol hydrochloride 50 mg oral tablet (20 sources)Opioid AgonistStart: 11-16-2023 End: 70-38-3678hhlb 1 tablet by mouth twice daily as needed for painTramadol 50 mg tablet Discontinued 50 MG PO Twice daily as needed for pain 50 30 0 December 111:03am January 20, 2025 2:25pm Dislocation of temporomandibular joint Dislocation of jaw, unspecifiedside, sequelaStart: 11-16-2023 End: 65-03-2393sreo 1 tablet by mouth three times daily as neededTramadol 50 mg tablet Discontinued 50 MG PO Three times daily as needed March 21, 2024 12:00am 2023 3:51pmStart: 16-29-5182encIZPtg HCl 50 MG TAKE 1 TABLET BY MOUTH THREE TIMES A DAY NEEDED FOR 30 DAYS for 30 Aug, ActiveStart: 71-45-9792defHHTiq HCl 50 MG TAKE 1 TABLET BY MOUTH THREE TIMES A DAY NEEDED FOR 30 DAYS for 30 Jun, ActiveStart: 17-36-5634fnkc 1 tablet by mouth every eight hourstraMADol HCl 50 MG 1 tablet as needed Orally tid for 30 days Jun, ActiveStart: 29-85-8649vzzg 1 tablet by mouth every eight hours traMADol HCl 50 MG 1 tablet as needed Orally tid for 30 days Apr, Active Start: 95-70-4289noan 1 tablet by mouth every eight hourstraMADol HCl 50 MG 1 tablet as needed Orally tid for 30 days Mar, ActiveStart: 87-64-2646mvvu 1 tablet by mouth every twelve hourstraMADol HCl 50 MG 1 tablet as needed Orally bid for 30 days Feb, ActiveStart: 04-04-2019 End: 19-82-5159blwz 1 tablet by mouth once dailyTramadol 50 mg tablet Discontinued 50 MG PO Daily April 04, 2019 12:00am July 18, 2022 10:49am triamcinolone acetonide 1 mg/ml topical cream (20 sources)CorticosteroidStart: 05-02-2024 End: 27-16-4029kcfzcehhxlwen (Kenalog) 0.1 % cream Indications: Acute vulvitis Apply topically 2 (two) times a day15 g 05/02/2024 07/01/2024 Discontinued (Med list cleanup)Start: 96-24-0908Onpyxlu-40 Apr, 60 mgStart: 11-14-2022 Kenalog-40 Oct, 40 mgvitamin b12 0.25 mg oral tablet (4 sources)Vitamin B12 End: 95-75-6574bfko 1 tablet by mouth in the morningcyancobalamine (Vitamin B- 12) 250 MCG tablet Take 250 mcg by mouth in the morning. 07/01/2024 Discontinued (Med list cleanup)vitamin b6 10 mg oral tablet (16 sources)Start: 08-04-2024 End: 44-86-1467odex 1 tablet by mouth once dailyPyridoxine (Vitamin B6) 10 mg tablet Discontinued 10 MG PO Daily August 04, 2024 1:00am August 20, 2024 11:15amVitamin E (20 sources)Start: 12-25-2023 End: 84-55-8637qqib 1 tablet by mouth once dailyvitamin E (dl, acetate) Discontinued 1 TAB PO Daily December 25, 2023 12:00am August 04, 2024 11:33am Start: 12-25-2023 End: 25-86-0897csxv 1 tablet by mouth once dailyvitamin E (dl, acetate) Discontinued 1 TAB PO Daily December 24, 2023 11:00pm August 04, 2024 10:33am Start: 54-21-8642tfsz 1 tablet by mouth once dailyvitamin E (dl, acetate) Active 1 TAB PO Daily December 24, 2023 11:00pmStart: 99-20-7397ccto 1 tablet by mouth once dailyvitamin E (dl, acetate) Active 1 TAB PO Daily December 25, 2023 12:00am Start: 78-67-5891ngrsfba E (dl, acetate) Active PO December 25, 2023 12:00am Problems Active Problems Problem ClassificationProblemDateDocumented DateEpisodic/ChronicAbdominal pain (20 sources)Abdominal pain; Translations: [Unspecified abdominal pain]Onset: 02-06-2019 Resolved: 79-61-4149UyeikqhpLyipvcs disorders (20 sources)Anxiety; Translations: [Anxiety disorder, unspecified]Onset: 55-77-2920OugpziwHpjwpqd obstructive pulmonary disease and bronchiectasis (20 sources)Chronic obstructive lung disease; Translations: [Chronic obstructive pulmonary disease, unspecified]Onset: 613471-92-5211JpxaswrTcicvfmtev and other anemia (20 sources)Iron deficiency anemia; Translations: [Iron deficiency anemia, unspecified]Onset: 12-28-2023 Resolved: 998092-14-3684QkzhbrurVmuoshwogq and other anemia (6 sources)Iron deficiency anemia, unspecified; Translations: [Iron deficiency anemia, unspecified]Onset: 523787-63-1112ZnacojpsCcxkucxzca and other anemia (20 sources)Anemia; Translations: [Anemia, unspecified]89-79-4677Cahvustx Deficiency and other anemia (6 sources)Other iron deficiency anemias; Translations: [OTHER IRON DEFICIENCY ANEMIAS]Onset: 09-65-3955EoklaohlCvhhetmqgg and other anemia (2 sources)Anemia, unspecified; Translations: [Anemia, unspecified]Episodic Diseases of white blood cells (13 sources)Leukocytosis; Translations: [Leukocytosis, unspecified]Onset: 17-91-3303BtypeqzOeoqwogwu of teeth and jaw (20 sources)Arthralgia of temporomandibular joint; Translations: [Arthralgia of temporomandibular joint, unspecified side]Onset: 02-46-7197DcrzdrqoT Codes: Natural/environment (1 source)Overexertion from prolonged static [...] full; Translations: [Feeling of incomplete bladder emptying]Onset: 78-63-6401LzljadxqRtdbcyrt; including migraine (20 sources)Migraine without aura, not refractory ; Translations: [Migraine, unspecified, not intractable, without status migrainosus]Onset: 08-19-2014 50-22-8820YczmgtxBqpljpmeyjc (20 sources)External hemorrhoids; Translations: [Residual hemorrhoidal skin tags]EpisodicJoint disorders and dislocations; trauma-related (20 sources)Dislocation of temporomandibular joint; Translations: [Dislocation of jaw, unspecified side, initial encounter]35-26-2760NaodvqvzVudyxgrsxg disorders (17 sources)Menopausal flushing; Translations: [Menopausal and female climacteric states]36-06-0653NqdkddhBfya disorders (3 sources)Mood swings; Translations: [Emotional lability]21-09-4244Rbxogtbc Neoplasms of unspecified nature or uncertain behavior (4 sources)Neoplasm of muscle; Translations: [Benign neoplasm of connective and other soft tissue, unspecified]41-75-3252UoizyauhHkfztpbkobz deficiencies (20 sources)Vitamin D deficiency; Translations: [Vitamin D deficiency, unspecified]Onset: 61-00-9178OswtnmqVkdqdduxxlm deficiencies (20 sources)Iron deficiency; Translations: [Iron deficiency]43-19-7590Rekgjzmn Open wounds of extremities (13 sources)Late effect of open wound of extremities without tendon injury; Translations: [Unspecified open wound of unspecified toe(s) with damage to nail, sequela]EpisodicOsteoarthritis (20 sources)Arthritis of first carpometacarpal joint of right hand; Translations: [Unilateral primary osteoarthritis of first carpometacarpal joint, right hand]Onset: 12-28-2023 Resolved: [id number] aftercare (1 source)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; Translations: [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 CURRENT DRUG THERAPY]Onset: 23-94-8947MgoquwtdKfdrq circulatory disease (1 source)Raynaud's phenomenon; Translations: [Raynaud's syndrome without gangrene]Onset: 49-83-6753NuovrwrCeucu circulatory disease (20 sources)Raynaud's disease; Translations: [Raynaud's syndrome without gangrene]22-37-6487YbgxdduBoljd circulatory disease (5 sources)Raynaud's syndrome without gangrene; Translations: [Raynaud's syndrome]Onset: 609591-24-0130IpwfouzHoool circulatory disease (12 sources)Elevated blood-pressure reading without diagnosis of hypertension; Translations: [Elevated blood-pressure reading, without diagnosis of hypertension]EpisodicOther circulatory disease (1 source)Elevated blood-pressure reading, without diagnosis of hypertension; Translations: [Elevated blood-pressure reading, without diagnosis of hypertension]EpisodicOther congenital anomalies (16 sources)Congenital anomaly of eye; 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, unspecified]14-25-5897VcngqcsLaucx congenital anomalies (5 sources)Congenital malformation of eye, unspecified; Translations: [Unspecified anomaly of eye]Onset: 749816-91-5123HamwdiuOqnto connective tissue disease (20 sources)Spasm; Translations: [Other muscle spasm]EpisodicOther connective tissue disease (20 sources)Pain in limb; Translations: [Pain in right foot]EpisodicOther connective tissue disease (4 sources)Pain in right foot; Translations: [PAIN IN RIGHT FOOT]Onset: 75-11-4174KcodfhszIaetz connective tissue disease (1 source)Pain in left [...] sources)Pain in left toe(s); Translations: [Pain in limb]15-03-7807Wksjtldp Other connective tissue disease (20 sources)Hand pain; Translations: [Pain in right hand]65-99-0555SxrhpvaoEljpm connective tissue disease (20 sources)Tenosynovitis of right radial styloid; Translations: [Radial styloid tenosynovitis [de Quervain]]Onset: 12-28-2023 Resolved: 311597-45-9336XiaksvwiRpnku connective tissue disease (20 sources)Radial styloid tenosynovitis [de Quervain]; Translations: [Radial styloid tenosynovitis]89-56-2204SkdxupjeQpdzj connective tissue disease (20 sources)Pain in right hand; Translations: [Pain in right hand]Onset: 12-28-2023 Resolved: 206790-70-8922FcfybuytTdktv connective tissue disease (6 sources)Pain in toe; Translations: [Pain in left toe(s)]58-12-9966Zvkfdlsu Other connective tissue disease (2 sources)Pain in both feet; Translations: [Pain in right foot]01-19-2025 EpisodicOther connective tissue disease (20 sources)Muscle pain; Translations: [Myalgia, unspecified site]02-25-2025 EpisodicOther connective tissue disease (1 source)Myalgia, unspecified site; Translations: [Myalgia and myositis, unspecified]76-29-1752GiqefkjwWxioz connective tissue disease (14 sources)Pain of toe of left foot; Translations: [Pain in left toe(s)] 79-60-0456FzbkdojgKypqv connective tissue disease (6 sources)Triggering of digit; Translations: [Trigger finger, right index finger]08-22-4591ZaimdmrsBapco eye disorders (16 sources)Pain in eye; Translations: [Ocular pain, unspecified eye]10-15-2024 EpisodicOther female genital disorders (20 sources)H/O: menorrhagia; Translations: [Personal history of other diseases of the female genital tract]Onset: 12-28-2023 Resolved: 544559-82-7426JuogrzlaWkynd female genital disorders (1 source)History of gynecological disorder; Translations: [Personal history of other diseases of the female genital tract]03-42-0636DqsxvuxtGxgra female genital disorders (2 sources)Vaginal discharge; Translations: [Other specified noninflammatory disorders of vagina]56-45-2883FzsqkbjpMdupy female genital disorders (1 source)Pruritus of vagina; Translations: [Other specified noninflammatory disorders of vagina]23-39-4706OvoaljssMsndm female genital disorders (4 sources)Personal history of other diseases of the female genital tract; Translations: [Personal history of other genital system and obstetric disorders] 74-06-2880IlzvzzkfLsqxw gastrointestinal disorders (20 sources)Adult form of celiac disease; Translations: [Celiac disease]Onset: 12-28-2023 Resolved: 192962-03-0264BtxeqxeBcijr gastrointestinal disorders (1 source)Celiac disease; Translations: [Celiac disease]50-19-1626GrgcuzvWnpav gastrointestinal disorders (1 source)Constipation, unspecified; Translations: [Constipation, unspecified] Onset: 51-75-8567IbfjyrssUmmwg gastrointestinal disorders (6 sources)Kkberfpypmmc93-99-5416LirkznelLlnpk gastrointestinal disorders (20 sources)Abdominal bloating; Translations: [Abdominal distension (gaseous)] 96-91-7681HrzaadlwPwtir hematologic conditions (20 sources)Other abnormality of red blood cells; Translations: [Abnormality of red blood cells]EpisodicOther hereditary and degenerative nervous system conditions (20 sources)Restless legs; Translations: [Restless legs syndrome]Onset: 12-28-2023 Resolved: 267354-55-5868TampcbsJczjl hereditary and degenerative nervous system conditions (2 sources)Restless legs syndrome; Translations: [Restless legs syndrome (RLS)] 02-74-6186PjkkicbNnpvb injuries and conditions due to external causes (10 sources)Other injury of unspecified body region, initial encounter; Translations: [Bruising]EpisodicOther injuries and conditions due to external causes (7 sources)Unspecified injury of right wrist, hand and finger(s), initial encounter; Translations: [Finger injury]EpisodicOther injuries and conditions due to external causes (20 sources)Thumb injury ; Translations: [Unspecified injury of right wrist, hand and finger(s), initial encounter]75-13-4830NibrglqyChtdd lower respiratory disease (4 sources)Chronic cough; Translations: [CHRONIC COUGH]Onset: 24-23-4460Fatokncn Other lower respiratory disease (20 sources)Cough; Translations: [Cough]Onset: 87-05-4936XtkqdhafAgqfx nervous system disorders (20 sources)Chronic pain; Translations: [Other chronic pain]78-25-9421Sbzdayb Other nervous system disorders (3 sources)Other chronic pain; Translations: [Other chronic pain]ChronicOther nervous system disorders (4 sources)Paresthesia of skin; Translations: [PARESTHESIA OF SKIN]Onset: 89-57-6924NenjpqcnGsgyf nervous system disorders (18 sources)Paresthesia; Translations: [Paresthesia of skin]76-48-7411Zolqgxbg Other nervous system disorders (16 sources)Allodynia; Translations: [Other disturbances of skin sensation] 09-55-3983VmtiaummRiyia non-traumatic joint disorders (20 sources)Pain in wrist; Translations: [Pain in right wrist]53-14-1061Tshsgpfp Other non-traumatic joint disorders (20 sources)Pain in right wrist; Translations: [Pain in joint, forearm] 92-09-2171UghyraohHiemv non-traumatic joint disorders (20 sources)Pain of right wrist; Translations: [Pain in right wrist]Onset: 12-28-2023 Resolved: 872591-08-8292YzndfeykRpiau non-traumatic joint disorders (2 sources)Pain in right knee; Translations: [Right medial knee pain]07-17-2025 EpisodicOther nutritional; endocrine; and metabolic disorders (16 sources)Abnormal [...] chemistry; Translations: [Patient encounter status]EpisodicOther skin disorders (14 sources)Disorder of skin; Translations: [Other skin changes]03-03-2025 EpisodicOther upper respiratory disease (20 sources)Seasonal allergic rhinitis; Translations: [Other seasonal allergic rhinitis]ChronicOther upper respiratory disease (3 sources)Other seasonal allergic rhinitis; Translations: [Other seasonal allergic rhinitis]ChronicOther upper respiratory disease (20 sources)Allergic rhinitis; Translations: [Allergic rhinitis, unspecified] Onset: 07-18-2023 Resolved: 805135-63-8461AlbdmzfGmpmg upper respiratory infections (13 sources)Chronic sinusitis; Translations: [Chronic sinusitis, unspecified] ChronicOvarian cyst (3 sources)Cyst of bilateral ovaries; Translations: [Unspecified ovarian cyst, right side]91-33-6818PnjmeqclDthqswuo codes; unclassified (20 sources)Insomnia; Translations: [Insomnia, unspecified]Onset: 02-21-2019 12-57-5317FojmhsgfPmgfnkec codes; unclassified (2 sources)Flushing; Translations: [FLUSHING]Onset: 89-73-8616NiqbhxbxSqjwrhok codes; unclassified (20 sources)Unspecified donor, other blood; Translations: [Blood donor] 06-51-1455XditufldHbffsqqk codes; unclassified (13 sources)Postprocedural state finding; Translations: [Other specified postprocedural states]EpisodicResidual codes; unclassified (13 sources)Family history of ischemic heart disease; Translations: [Family history of ischemic heart disease and other diseases of the circulatory system] EpisodicResidual codes; unclassified (16 sources)Insomnia, unspecified; Translations: [Persistent disorder of initiating or maintaining sleep]13-75-3657PrwpqttfZazohmav codes; unclassified (20 sources)Persistent insomnia; Translations: [Insomnia, unspecified]Onset: 12-28-2023 Resolved: 996058-24-9896PmrembepKnsjbzjh codes; unclassified (3 sources)History of endometrial ablation; Translations: [Other specified postprocedural states]25-32-0102YflbuhiiCtsshnvs codes; unclassified (2 sources)Menopause present; Translations: [Asymptomatic menopausal state] 87-22-0575LwaoxmwpKtpmevaqksh; intervertebral disc disorders; other back problems (20 sources)Cervical spondylosis; Translations: [Spondylosis without myelopathy or radiculopathy, cervical region]ChronicSpondylosis; intervertebral disc disorders; other back problems (20 sources)Pain in thoracic spine; Translations: [Pain in thoracic spine]Onset: 13-68-7397UafkraseCppdifj and strains (16 sources)Unspecified sprain of right foot, initial encounter; Translations: [Sprain of right ankle]Onset: 226354-24-7477HjzjhafyUntxnsjxa-uhkapzu disorders (20 sources)Nicotine dependence; Translations: [Nicotine dependence, unspecified, uncomplicated]Onset: 82-89-9518OjfkljyFoabxei on above:Added secondary to documentation in Social History.Unclassified (11 sources)Finding of sensation of -22-6963Zwyrprtkdmwq (3 sources)CONTACT W/AND (SUSP) EXPOS COVID-19; Translations: [CONTACT W/AND (SUSP) EXPOS COVID-19]Onset: 93-26-8435Visvpxo tract infections (20 sources)Postinfective urethral stricture of female; Translations: [Postinfective urethral stricture, not elsewhere classified, female]Onset: 79-17-9948KtmjyixtXleig infection (20 sources)Viremia; Translations: [Viral infection, unspecified]Onset: 524465-93-3759Ijioylto Past or Other Problems Problem ClassificationProblemDateDocumented DateEpisodic/ChronicAcute bronchitis (13 sources)Acute bronchitis; Translations: [Acute bronchitis, unspecified] Onset: 89-78-8578FyweixpjPbhwvdom reactions (13 sources)Contact dermatitis; Translations: [Contact dermatitis and other eczema, due to unspecified cause]Onset: 03-09-3993LtpztrssYoqoesjve infection; unspecified site (12 sources)Bacterial infectious disease; Translations: [Bacterial infection, unspecified, in conditions classified elsewhere and of unspecified site]Onset: 36-62-1812YalcgrsiIltvnil tract disease (20 sources)Other specified diseases of gallbladder; Translations: [Disorder of gallbladder]Onset: 96-14-0444QwcmjmrdZdbrpqrxrqowu (20 sources)Endometriosis of uterus; Translations: [Endometriosis of uterus] Onset: 08-04-2009 Resolved: 905214-53-5300SxmdbjmQksqyrovjtgbg symptoms and ill-defined conditions (20 sources)Mixed incontinence; Translations: [Incontinence]Onset: 08-17-2022 Resolved: 01-20-6544ZstzwkuSgxedzahrsiy diseases of female pelvic organs (20 sources)Chronic vaginitis; Translations: [Subacute and chronic vaginitis] Onset: 07-18-2023 Resolved: 184168-91-2102OuopntbwLqcnmyvkr disorders (20 sources)Dysmenorrhea; Translations: [Dysmenorrhea, unspecified]Onset: 07-18-2023 Resolved: 724945-89-0381ZccmzlkMabd disorders (20 sources)Bipolar II disorder; Translations: [Bipolar II disorder]Onset: 07-18-2023 Resolved: 198824-37-7392IggswitEqbofjdssfo chest pain (14 sources)Chest pain, unspecified; Translations: [Chest pain]Onset: 07-02-2018 EpisodicOther connective tissue disease (13 sources)Lateral epicondylitis; Translations: [Lateral epicondylitis of elbow]Onset: 07-07-2537VuikxrmaYregb connective tissue disease (20 sources)Peroneal tendinitis of right lower limb; Translations: [Peroneal tendinitis, right leg]Onset: 12-28-2023 Resolved: 338643-26-2906ImmmwhgqGgsvb eye disorders (1 source)Ocular pain, unspecified eye; Translations: [Ocular pain, unspecified eye]Onset: 75-59-1772OehagrlgFkkba female genital disorders (20 sources)Cervical intraepithelial neoplasia grade 1; Translations: [Mild cervical dysplasia]Onset: 07-18-2023 Resolved: 073155-33-3670CrdblazkTwmyl gastrointestinal disorders (5 sources)Abdominal distension (gaseous); Translations: [Flatulence, eructation, and gas pain]Onset: 920834-38-4737TofaodnnWaqrj inflammatory condition of skin (13 sources)Sunburn of second degree; Translations: [Sunburn of second degree] Onset: 65-57-1147EjzzgrjrVtfyz inflammatory condition of skin (13 sources)Solar erythema; Translations: [Contact dermatitis and other eczema due to sunburn]Onset: 69-23-2623MjcocgvtIatur injuries and conditions due to external causes (13 sources)Traumatic AND/OR non-traumatic injury; Translations: [Other injury of unspecified body region]Onset: 61-64-2013HviliseiUgvqj skin disorders (13 sources)Atrophoderma; 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]Onset: 10-10-9635WxkvqkebMnmuw upper respiratory disease (20 sources)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; Translations: [Other allergic rhinitis]Onset: 07-18-2023 Resolved: 803557-74-6947EmqcytuMdnof upper respiratory infections (20 sources)Acute maxillary sinusitis; Translations: [Acute recurrent maxillary sinusitis]Onset: 40-76-1528DjtqscnyDjhgykag codes; unclassified (12 sources)Tobacco user; Translations: [Nondependent tobacco use disorder] Onset: 05-59-8930BawnlsclMrugblta codes; unclassified (1 source)Early satiety; Translations: [Early satiety]Onset: 12-84-6239Wyspceah Screening and history of mental health and substance abuse codes (12 sources)History of tobacco use; Translations: [Personal history of tobacco use, presenting hazards to health]Onset: 83-27-8342LmblvyfrXsszizfmxse injury; contusion (20 sources)Contusion of right foot; Translations: [Contusion of right foot, initial encounter]Onset: 12-28-2023 Resolved: 947435-53-4388SkiwgbnzOtonbzibquoq (1 source)CONTACT W/AND (SUSP) EXPOS COVID-19; Translations: [CONTACT W/AND (SUSP) EXPOS COVID-19]Onset: 30-69-3112Uudwaneebvzn (1 source)Chronic cough R05.3Unclassified (1 source)Allergic rhinitis, cause unspecified; Translations: [Allergic rhinitis, cause unspecified]Unclassified (1 source)Unspecified backache; Translations: [Unspecified backache]Onset: 37-64-0617Vifdbmvxnsbw (1 source)Personal history of tobacco use, presenting hazards to health; Translations: [Personal history of tobacco use, presenting hazards to health] Onset: 59-64-5191Iucypeulyucc (1 source)Nondependent tobacco use disorder; Translations: [Nondependent tobacco use disorder]Onset: 27-38-8875Hhgsuwqjthtf (1 source)Bacterial infection, unspecified, in conditions classified elsewhere and of unspecified site; Translations: [Bacterial infection, unspecified, in conditions classified elsewhere and of unspecified site]Onset: 08-44-8039Tnemj infection (20 sources)Genital herpes simplex; Translations: [Herpesviral infection of urogenital system, unspecified]Onset: 09-22-2009 Resolved: hronic Results Test NameValueInterpretationReference RangeFacilityBI MAMMOGRAM SCREENING TOMOSYNTHESIS BILATERALon 32-73-4431SJ MAMMOGRAM SCREENING TOMOSYNTHESIS BILATERALThis is a summary [...] IS VERY IMPORTANT TO YOUR HEALTH. THE [employer] GUIDELINES RECOMMEND THATWOMEN 40 YEARS [...] Chemistry - challengeOrdered By: Fernanda Concepcion on 39-84-6878Bykmxdpat (Vitamin B12) [Mass/Vol]1187 pg/oB871-0748ShdctegruSelect Medical Ohiohealth Rehabilitation Hospital - DublinComment on above:Performed at: - [facility] [id number] Director: Andres Arboleda PhD, Phone: [phone] Panel InformationOrdered By: Fernanda Concepcion on 13-62-0855Qixrak57.50 ng/mL8.60-58.90[facility] - DublinBasophils Auto (Bld) [#/Vol]Ordered By: Ute Griffin on 01-27-2025 Basophils (Bld) [#/Vol]Automated basophil count0.0-0.2FParkwood HospitalBasophils/100 WBC Auto (Bld)Ordered By: Ute Griffin on 01-27-2025 Basophils/100 WBC (Bld)Automated basophil %.[facility] Complete Blood Count Auto Diffon 46-61-2335Jngjdcltx (Bld) [#/Vol]0.1 10*3/uL Normal0.0-0.2[facility] Physician GroupComment on above:Result Comment: PERFORMED BY: [place] [address] [place] [address] PATHOLOGIST PARTNER MANAGER ANTONIO PEREA M.D.Performed By: #### BENNY, CBC, FE and TIBC ####[address] Basophils/100 WBC (Bld)1.2 %Normal.[facility] Physician GroupComment on above:Performed By: #### BENNY, CBC, FE and TIBC ####[place] [address] USAEosinophils (Bld) [#/Vol]0.0 10*3/uL Normal0.0-0.45The [facility] Physician GroupComment on above:Performed By: #### BENNY, CBC, FE and TIBC ####[place] [address] USAEosinophils/100 WBC (Bld)0.5 %Normal.[facility] Physician GroupComment on above:Performed By: #### BENNY, CBC, FE and TIBC ####[address] Erythrocyte distribution width (RBC) [Ratio]13.2 %Mzjxvs81.9-15.3The [facility] Physician GroupComment on above:Performed By: #### BENNY, CBC, FE and TIBC ####[address] Hematocrit (Bld) [Volume fraction]41.5 %Aagzcf10.0-46.4The [facility] Physician GroupComment on above:Performed By: #### BENNY, CBC, FE and TIBC ####[place] [address] USAHemoglobin (Bld) [Mass/Vol]14.4 g/iHGxqrcf87.8-15.4[facility] Physician GroupComment on above: Performed By: #### BENNY, CBC, FE and TIBC ####[place] [address] USALymphocytes (Bld) [#/Vol]1.9 10*3/uLNormal 1.00-4.8[facility] Physician GroupComment on above:Performed By: #### BENNY, CBC, FE and TIBC ####[place] [address] USALymphocytes/100 WBC (Bld)25.6 %Normal.[facility] Comment on above:Performed By: #### BENNY, CBC, FE and TIBC ####[address] (RBC) [Entitic mass]35.1 ftWebk62.7-34.3[facility] Physician GroupComment on above:Performed By: #### BENNY, CBC, FE and TIBC ####[address] (RBC) [Entitic vol]101.2 aPSeln63-147Iem [facility] Physician GroupComment on above:Performed By: #### BENNY, CBC, FE and TIBC ####[address] Mean Corpuscular HGB Conc34.6 g/fCLqpjsq57.0-35.0[facility]ician [facility] Comment on above:Performed By: #### BENNY, CBC, FE and TIBC ####[place] [address] USAMonocytes (Bld) [#/Vol]0.3 10*3/uLNormal0.0-0.8[facility] Physician GroupComment on above:Performed By: #### BENNY, CBC, FE and TIBC ####[place] [address] USAMonocytes/100 WBC (Bld)4.4 %Normal.[facility] Physician GroupComment on above:Performed By: #### BENNY, CBC, FE and TIBC ####[address] Neutrophils (Bld) [#/Vol]4.9 10*3/uLNormal1.8-7.7[facility] Comment on above:Performed By: #### BENNY, CBC, FE and TIBC ####[place] [address] USANeutrophils/100 WBC (Bld)68.3 %Normal.[facility] Physician GroupComment on above:Performed By: #### BENNY, CBC, FE and TIBC ####[place] [address] USANRBC%0.1 /100{WBC}Normal0-0.5The [facility] Physician GroupComment on above:Performed By: #### BENNY, CBC, FE and TIBC ####[place] [address] USAPlatelet mean volume (Bld) [Entitic vol]7.7 fLNormal6.3-10.7The [facility] Physician GroupComment on above:Performed By: #### BENNY, CBC, FE and TIBC ####[place] [address] USAPlatelets (Bld) [#/Vol]234 10*3/wWYejexk346-070Sgt [facility] Physician GroupComment on above:Performed By: #### BENNY, CBC, FE and TIBC ####[place] [address] [place] RBC (Bld) [#/Vol]4.10 10*6/uLNormal3.60-5.00[facility] Physician GroupComment on above:Performed By: #### BENNY, CBC, FE and TIBC ####[place] [address] USAWBC (Bld) [#/Vol]7.2 10*3/uL Normal3.8-11.6[facility] Physician GroupComment on above:Performed By: #### BENNY, CBC, FE and TIBC ####[place] [address] USAEosinophils Auto (Bld) [#/Vol]Ordered By: Ute Griffin on 59-07-5260Uwcrokjhwpx (Bld) [#/Vol]Automated eosinophil count0.0-0.45 [facility] - DublinEosinophils/100 WBC Auto (Bld)Ordered By: Ute Griffin on 30-63-8729Hadewxolmyu/100 WBC (Bld)Automated eosinophil %.[facility] Hospital - DublinErythrocyte distribution width Auto (RBC) [Ratio]Ordered By: Ute Griffin on 18-52-3197Toexqggjoib distribution width (RBC) [Ratio] Erythrocyte distribution width [Ratio] by Automated count11.9-15.3FParkwood HospitalFerritinon 58-17-1713Sioxnxbx [Mass/Vol]30.5 ng/mLNormal 11.0-306.8The [facility] Physician GroupComment on above:Result Comment: PERFORMED BY: [facility] [address] [place] [address] PATHOLOGIST PARTNER MANAGER ANTONIO PEREA M.D.Performed By: #### BENNY, CBC, FE and TIBC ####[address] Ferritin [Mass/volume] in Serum or PlasmaOrdered By: Ute Griffin on 01-27-2025 Ferritin [Mass/Vol]Ferritin [Mass/volume] in Serum or Yflbdf80.0-306.8[facility] Hospital - DublinHematocrit Auto (Bld) [Volume fraction]Ordered By: Ute Griffin on 10-05-1386Czeojayqoc (Bld) [Volume fraction]Hematocrit [Volume Fraction] of Blood by Automated count34.0-46.4FParkwood Hospital Hemoglobin [Mass/volume] in BloodOrdered By: Ute Griffin on 01-27-2025 Hemoglobin (Bld) [Mass/Vol]Hemoglobin [Mass/volume] in Blood11.8-15.4FParkwood HospitalIron [Mass/volume] in Serum or PlasmaOrdered By: Ute Griffin on 29-55-1445Beha [Mass/Vol]Iron [Mass/volume] in Serum or Vhvwam62-381 [facility] Hospital - DublinIron and TIBC Profileon 01-27-2025% Iron Zeeittuztm32.7 %Etkuxa30-97Hnu [facility] Physician [facility] HospitalComment on above: Performed By: #### BENNY, CBC, FE and TIBC ####[address] [Mass/Vol]151 ug/vKCjdibl27-597Iuy [facility] Physician GroupComment on above:Performed By: #### BENNY, CBC, FE and TIBC ####[facility] [address] Total Iron Binding Cxcxtksa494 ug/uFTcvcwg589-026Isf [facility] Comment on above:Performed By: #### BENNY, CBC, FE and TIBC ####[facility] [address] [place] [address] USATransferrin [Mass/Vol]231 mg/yJMygurb672-091Hlz [facility] Physician GroupComment on above:Performed By: #### BENNY, CBC, FE and TIBC ####[facility] [address] [place] [address] USALeukocytes [#/volume] corrected for nucleated erythrocytes in Blood by Automated counOrdered By: Ute Griffin on 76-98-3891DGA corrected for nucl RBC Auto (Bld) [#/Vol]Leukocytes [#/volume] corrected for nucleated erythrocytes in Blood by Automated coun3.8-11.6FParkwood HospitalLymphocytes Auto (Bld) [#/Vol]Ordered By: Ute Griffin on 20-46-2403Qtjbgujrbfx (Bld) [#/Vol]Lymphocytes [#/volume] in Blood by Automated count1.00-4.8[facility] Hospital - DublinLymphocytes/100 WBC Auto (Bld) Ordered By: Ute Griffin on 53-91-0148Fujdgvmeucw/100 WBC (Bld)Lymphocytes/100 leukocytes in Blood by Automated count.[facility] Auto (RBC) [Entitic mass]Ordered By: Ute Griffin on 22-04-7556BMS (RBC) [Entitic mass]MCH [Entitic mass] by Automated apaalFvvh44.7-34.3FRegency Hospital Toledo Auto (RBC) [Mass/Vol]Ordered By: Ute Griffin on 01-27-2025 MCHC (RBC) [Mass/Vol]MCHC [Mass/volume] by Automated count32.0-35.0Fire[facility] Medical CenterMCV Auto (RBC) [Entitic vol]Ordered By: Ute Griffin on 46-65-0264EBS (RBC) [Entitic vol]MCV [Entitic volume] by Automated countHigh 80-100[facility] - DublinMonocytes Auto (Bld) [#/Vol]Ordered By: Ute Griffin on 14-41-6811Vrawhkeet (Bld) [#/Vol]Automated blood monocyte count 0.0-0.8[facility] - DublinMonocytes/100 WBC Auto (Bld)Ordered By: Ute Griffin on 77-17-5364Fghmwjpvt/100 WBC (Bld)Automated monocyte %.[facility] Hospital - DublinNeutrophils Auto (Bld) [#/Vol]Ordered By: Ute Griffin on 04-78-4343Ntonccehhxj (Bld) [#/Vol]Neutrophils [#/volume] in Blood by Automated count1.8-7.7FParkwood HospitalNeutrophils/100 WBC Auto (Bld) Ordered By: Ute Griffin on 17-72-2770Igarotsrina/100 WBC (Bld)Automated neutrophil %.[facility] Hospital - DublinNucleated erythrocytes [Presence] in Blood by Automated countOrdered By: Ute Griffin on 33-53-0638Odnbkhhha RBC Auto Ql (Bld)Nucleated erythrocytes [Presence] in Blood by Automated count0-0.5 [facility] Hospital - DublinPlatelet mean volume Auto (Bld) [Entitic vol] Ordered By: Ute Griffin on 18-03-3932Sjqlbanv mean volume (Bld) [Entitic vol] Platelet mean volume [Entitic volume] in Blood by Automated count6.3-10.7 [facility] Hospital - DublinPlatelets Auto (Bld) [#/Vol]Ordered By: Ute Griffin on 33-40-0578Tontlhfuo (Bld) [#/Vol]Platelets [#/volume] in Blood by Automated uauyt152-548DdvvoejtlSelect Medical Ohiohealth Rehabilitation Hospital - DublinRBC Auto (Bld) [#/Vol] Ordered By: Ute Griffin on 46-89-9951CTP (Bld) [#/Vol]Erythrocytes [#/volume] in Blood by Automated count3.60-5.00Corey Hospitalerum or plasma iron binding capacity measurement (mass/volume)Ordered By: Ute Griffin on 95-96-3280Hgst binding capacity [Mass/Vol]Iron binding capacity [Mass/volume] in Serum or Xixldt237-756MbregumpmCorey Hospitalerum or plasma iron saturation measurement (mass fraction)Ordered By: Ute Griffin on 03-56-0383Mira saturation [Mass fraction]Iron saturation [Mass Fraction] in Serum or Plasma 20-50[facility] - DublinTransferrin [Mass/volume] in Serum or PlasmaOrdered By: Ute Griffin on 91-06-6052Mpiikzqnexp [Mass/Vol]Transferrin [Mass/volume] in Serum or Qnhiqc672-881EvestynhzSelect Medical Ohiohealth Rehabilitation Hospital - DublinWBC Auto (Bld) [#/Vol]Ordered By: Ute Griffin on 11-52-4672EEB (Bld) [#/Vol]Leukocytes [#/volume] in Blood by Automated count3.8-11.6FParkwood Hospital X-ray reportOrdered By: Freedom Mcmillan on 80-01-0930Ymbog reportKING'[facility] DAUGH[facility] [place] [address] XRay Report Signed Patient: Katy Banuelos MR#: [id number] : 1975 Acct:[id number] Age/Sex: 50 / F ADM Date: 5 [facility] Attending Dr: Marta Hernandez DO Copies to: [...] Jr., D.OJf 01/27/2025 2:32 PM Dictation Location: [place] [address] Transcribed By: [facility] 01/27/25 143 Dictated By: Freedom Mcmillan Jr, DO 01/27/25 143 Signed By: 01/27/25 1432 [facility] Hospital - DublinXR chest 2V*on 06-89-2290IJ chest 2V*[facility] [place] [address] [place] [address] XRay Report Signed Patient: Katy Banuelos MR#: [id number] : 1975 Acct:[id number] Age/Sex: 50 / F ADM Date: 01/27/25 Loc: XDS Room: Type: [facility] Attending Dr: Marta Hernandez DO Copies to: [...] Jr., D.O. 01/27/2025 2:32 PM Dictation Location: [place] [address] Transcribed By: [facility] 01/27/251431 Dictated By: Freedom Mcmillan Jr, DO 01/27/25 143 Signed By: 01/27/[address] [place] [address] Physician GroupNo Panel Informationon 88-82-9991DrnkrkMarkel Yanez LPN 01/19/2025 9:08 PM Splint Application [...] left foot cam boot. Ref # [id number] [facility] CenterXR FOOT 3+ VIEWS LEFTon 28-39-3403YS FOOT 3+ VIEWS LEFTTitle of exam: XR [...] report is generated using voice recognition reporting (Kiip). On occasion, Powerscribe erroneously drops words from [...] report is generated using voice recognition reporting (Mysafeplacecribe). On occasion, Powerscribe erroneously drops words from [...] report is generated using voice recognition reporting ([employer]). On occasion, Powerscribe erroneously drops words from the report or replaces the spoken word with a similar sounding word. Please call with any questions/concerns regarding the report. [facility]oplinRadiology Study observation (narrative)[facility]oplinXR Foot - left 3 ViewsOrdered By: Adonay Lawrence on 98-46-8963UXGUMercy Hospital Joplin Work Phone: Laboratory - Cytologyon 95-29-3318Pghxkmuqpx Cyto stain Nom (Cvx/Vag) [ID]CommentMercy Hospital JoplinComment on above:Neva Huynh, [place] (ASCP)Cytology report Cyto stain Doc (Cvx/Vag)CommentMercy Hospital Joplin Comment on above:NEGATIVE FOR INTRAEPITHELIAL LESION OR MALIGNANCY.Cytology report Cyto stain.thin prep Doc (Cvx/Vag)CommentMercy Hospital JoplinComment on above: This liquid based ThinPrep(R) pap test was screened with the use of an image guided system. Statement of adequacy Cyto stain (Cvx/Vag) [Interp]CommentMercy Hospital JoplinComment on above:Satisfactory for evaluation. Endocervical and/or squamous metaplastic cells (endocervical component) are present. Laboratory - Microbiology and Antimicrobial susceptibilityon 57-09-8108PPD 16+18+31+33+35+39+45+51+52+56+58+59+66+68 DNA Probe+sig amp Ql (Cvx)Negative NegativeNOFulton State HospitalComment on above:This nucleic acid amplification test detects fourteen high-risk HPV types (16,18,31,33,35,39,45,51,52,56,58,59,66,68) without differentiation. Microscopic observation Other stain Nom (Unsp spec).[facility]linLaboratory - Miscellaneous testson 50-80-9333Glumqmu comment (Unsp spec) [Interp]CommentMercy Hospital JoplinComment on above:The Pap smear is a screening test designed to aid in the detection of premalignant and malignant conditions of the uterine cervix. It is not a diagnostic procedure and should not be used as the sole means of detecting cervical cancer. Both false-positive and false-negative reports do occur. No Panel Informationon 99-05-6826Czmkcrdsz ICD code [Identifier]CommentMercy Hospital JoplinComment on above:Z01.419 Z12.4 Performed at: [address] [place] [address] [address] [employer] [address] [place] [address], [place], [place] [address] Groundskeeper: Antony Dunne MD, Phone: [phone] Performed at: - [facility] [address] [id number] Groundskeeper: Faviola Wade MD, Phone: [phone] Performed at: - [facility] [address] [id number] Groundskeeper: Faviola Wade MD, Phone: [phone] Specimen Comment: No. of containers..01 ThinPrep [facility]ialGl[facility] Laboratory - Chemistry and Chemistry - challengeon 77-31-8888Weleoo Ag 125 Qn7.5 [arb'U]/mL0.0 - 38.1 U/mLNOMS [...] Postmenopausal 25.8 - 134.8 No Panel Informationon 86-20-1918Blxdpinkv at: - [facility] [address] [id number] Groundskeeper: Andres Arboleda PhD, Phone: [phone] Falls Hospital Laboratory - Chemistry and Chemistry - challengeon 21-89-1320Uprh T4 [Mass/Vol] 0.92 ng/dL0.76-1.46[facility] - DublinTSH Qn0.850 m[IU]/L 0.358-3.740[facility] - DublinNo Panel Informationon 11-10-2024 Miscellaneous TestCOMMENT.[facility] Hospital - DublinComment on above:Test Ordered: [id number] AChR Binding Abs, SerumAChR Binding Abs, Serum <0.03 nmol/L BN Reference Range: 0.00-0.24 Negative: 0.00 - 0.24 Borderline: 0.25 - 0.40 Positive: >0.40Performed at: [address] [id number] Director: Rikki Robert MD, Phone: [phone] at: [address] [id number] Director: Andres Arboleda PhD, Phone: [phone] Ordered: [id number] AChR Blocking Abs, SerumAChR Blocking Abs, Serum 13 % BN Reference Range: 0-25This test was developed and its performance characteristicsdetermined by [employer]. It has not been cleared orapproved by the Food and Drug Administration. Negative: 0 - 25 Borderline: 26 - 30 Positive:>30Performed at: [address] [id number] Director: Rikki Robert MD, Phone: [phone] at: [address] [id number] Director: Andres Arboleda PhD, Phone: [phone] or plasma thyroglobulin antibody assay (units/volume)on 60-08-6843Hvytghvfryiea Ab QnSerum or plasma thyroglobulin antibody assay (units/volume)0.0-0.9[facility] - DublinComment on above:Thyroglobulin Antibody measured by Sasha CoulterMethodologyIt should be noted that the presence of thyroglobulinantibodies may not be pathogenic nor diagnostic, especiallyat very low levels. The assay lead pharmacy technician has found thatfour percent of individuals without evidence of thyroiddisease or autoimmunity will have positive TgAb levels upto 4 IU/mL.Performed at: [address] [id number] Director: Andres Arboleda PhD, Phone: [phone] or plasma thyroperoxidase antibody assay (units/volume)on 11-69-9916ANW Ab QnSerum or plasma thyroperoxidase antibody assay (units/volume)0-34Firdominion hospital Regional Medical CenterMR head/brain wo/w conon 64-84-9905RP head/brain wo/w [facility] [address] MRI Report Signed Patient: Katy Banuelos MR#: [id number] : 1975 Acct:[id number] Age/Sex: 49 / F ADM Date: 11/05/24 Loc: Room: Type: [facility] Attending Dr: Fernanda Concepcion MD Copies to: [...] Fantasma Figueroa M.D.11/05/2024 5:42 PM Dictation Location: [place] [address] Transcribed By: [facility] 11/05/24 174 Dictated By: Fantasma Figueroa MD 11/05/24 1735 Signed By: 11/05/24 174[facility] Physician GroupTuba City Regional Health Care Corporationetic resonance imaging reportOrdered By: Fantasma Figueroa on 00-84-7756[facility] [place] [id number] MRI Report Signed Patient: Katy Banuelos MR#: [id number] : 1975 Acct:[id number] Age/Sex: 49 / F ADM Date: 5 Loc: MR Room: Type: [facility] Attending Dr: Fernanda Concepcion MD Copies to: [...] Fantasma Figueroa M.D.11/05/2024 5:42 PM Dictation Location: [place] [address] Transcribed By: [facility] 11/05/241741 Dictated By: Fantasma Figueroa MD 11/05/241734 Signed By: 11/05/241741 [facility] Work Phone: Basophils Auto (Bld) [#/Vol]Ordered By: Ute Griffin on 96-01-2588Rgmiokhbx (Bld) [#/Vol]Automated basophil count0.0-0.2FParkwood HospitalBasophils/100 WBC Auto (Bld)Ordered By: Ute Griffin on 08-83-8305Lavvgrrfc/100 WBC (Bld)Automated basophil %.[facility] DublinComplete Blood Count Auto Diffon 39-20-2468Gomzalpxu (Bld) [#/Vol]0.1 10*3/uLNormal0.0-0.2The [facility] Physician GroupComment on above:Result Comment: PERFORMED BY: [place] [address] PATHOLOGIST PARTNER MANAGER ANTONIO PEREA M.D.Performed By: #### BENNY, FE and TIBC, CBC #### [place] [address] USABasophils/100 WBC (Bld)0.9 %Normal.The [facility] Physician GroupComment on above:Performed By: #### BENNY, FE and TIBC, CBC #### [place] [address] USAEosinophils (Bld) [#/Vol]0.1 10*3/uLNormal0.0-0.45The [facility] Physician GroupComment on above:Performed By: #### BENNY, FE and TIBC, CBC #### [place] [address] USAEosinophils/100 WBC (Bld)0.9 %Normal.The [facility] Hospital Physician GroupComment on above:Performed By: #### BENNY, FE and TIBC, CBC #### [place] [address] USAErythrocyte distribution width (RBC) [Ratio]14.4 %Normal 11.9-15.3The [facility] Hospital Physician GroupComment on above:Performed By: #### BENNY, FE and TIBC, CBC #### [place] [address] USAHematocrit (Bld) [Volume fraction]39.2 %Zlwwdp49.0-46.4The [facility] Physician GroupComment on above:Performed By: #### BENNY, FE and TIBC, CBC #### [place] [address] USAHemoglobin (Bld) [Mass/Vol]13.7 g/wDTvsrhf51.8-15.4The [facility] Physician GroupComment on above:Performed By: #### BENNY, FE and TIBC, CBC #### [place] [address] USALymphocytes (Bld) [#/Vol]1.4 10*3/uLNormal1.00-4.8The [facility] Physician GroupComment on above:Performed By: #### BENNY, FE and TIBC, CBC #### [place] [address] USALymphocytes/100 WBC (Bld)21.4 %Normal.The [facility] Physician GroupComment on above:Performed By: #### BENNY, FE and TIBC, CBC #### [address] (RBC) [Entitic mass]34.7 yxLoqt55.7-34.3The [facility] Physician GroupComment on above:Performed By: #### BENNY, FE and TIBC, CBC #### [address] (RBC) [Entitic vol]99.4 dWWalonc76-577Xfo [facility] Physician GroupComment on above:Performed By: #### BENNY, FE and TIBC, CBC #### [place] [address] USAMean Corpuscular HGB Conc34.9 g/cOEurwgh43.0-35.0The [facility] Physician GroupComment on above:Performed By: #### BENNY, FE and TIBC, CBC #### [place] [address] USAMonocytes (Bld) [#/Vol]0.4 10*3/uLNormal0.0-0.8The [facility] Physician GroupComment on above:Performed By: #### BENNY, FE and TIBC, CBC #### [place] [address] USAMonocytes/100 WBC (Bld)5.4 %Normal.The [facility] Physician GroupComment on above:Performed By: #### BENNY, FE and TIBC, CBC #### [place] [address] USANeutrophils (Bld) [#/Vol]4.7 10*3/uLNormal1.8-7.7The [facility] Physician GroupComment on above:Performed By: #### BENNY, FE and TIBC, CBC #### [place] [address] USANeutrophils/100 WBC (Bld)71.4 %Normal.The [facility] Hospital Physician GroupComment on above:Performed By: #### BENNY, FE and TIBC, CBC #### [place] [address] USANRBC%0.1 /100{WBC}Normal0-0.5The [facility] Comment on above:Performed By: #### BENNY, FE and TIBC, CBC #### [place] [address] USAPlatelet mean volume (Bld) [Entitic vol]7.7 fLNormal 6.3-10.7The [facility] Hospital Physician GroupComment on above:Performed By: #### BENNY, FE and TIBC, CBC #### [place] [address] USAPlatelets (Bld) [#/Vol]242 10*3/pMAgrigp342-733Syn [facility] Hospital Physician GroupComment on above:Performed By: #### BENNY, FE and TIBC, CBC #### [place] [address] USARBC (Bld) [#/Vol]3.95 10*6/uLNormal3.60-5.00The [facility] Physician GroupComment on above:Performed By: #### BENNY, FE and TIBC, CBC #### [place] [address] USAWBC (Bld) [#/Vol]6.6 10*3/uLNormal3.8-11.6The [facility] Physician GroupComment on above:Performed By: #### BENNY, FE and TIBC, CBC #### [place] [address] USAEosinophils Auto (Bld) [#/Vol]Ordered By: Ute Griffin on 75-89-9342Ipvcfovwwpf (Bld) [#/Vol]Automated eosinophil count0.0-0.45[facility] - DublinEosinophils/100 WBC Auto (Bld)Ordered By: Ute Griffin on 67-79-8679Ccuhlbomjsg/100 WBC (Bld)Automated eosinophil %.[facility] Hospital - DublinErythrocyte distribution width Auto (RBC) [Ratio]Ordered By: Ute Griffin on 68-87-0869Pojfsyppwwk distribution width (RBC) [Ratio]Erythrocyte distribution width [Ratio] by Automated count11.9-15.3FParkwood HospitalFerritinon 07-07-7410Achnvvos [Mass/Vol]55.8 ng/qBHqiitg17.0-306.8The [facility] Physician GroupComment on above:Result Comment: PERFORMED BY: [place] [address] PATHOLOGIST PARTNER MANAGER ANTONIO PEREA M.D.Performed By: #### BENNY, FE and TIBC, CBC #### [place] [address] USAFerritin [Mass/volume] in Serum or PlasmaOrdered By: Ute Griffin on 33-96-9165Hijpwlde [Mass/Vol]Ferritin [Mass/volume] in Serum or Wkrqak34.0-306.8[facility] Hospital - DublinHematocrit Auto (Bld) [Volume fraction]Ordered By: Ute Griffin on 33-55-8877Nclfnpdklf (Bld) [Volume fraction]Hematocrit [Volume Fraction] of Blood by Automated count34.0-46.4 [facility] - DublinHemoglobin [Mass/volume] in BloodOrdered By: Ute Griffin on 47-38-5306Vuvbrugvdb (Bld) [Mass/Vol]Hemoglobin [Mass/volume] in Blood11.8-15.4FParkwood HospitalIron [Mass/volume] in Serum or PlasmaOrdered By: Ute Griffin on 87-65-8590Alfo [Mass/Vol]Iron [Mass/volume] in Serum or Yjvgwu04-862QysnififeSelect Medical Ohiohealth Rehabilitation Hospital - DublinIron and TIBC Profileon 10-14-2024% Iron Cuvcpefyvj50.4 %Luvmgl35-61Ixb [facility] Physician GroupComment on above:Performed By: #### BENNY, FE and TIBC, CBC #### [facility] [address] [place] [address] USAIron [Mass/Vol]140 ug/gUCozeyi65-743Cub [facility] Hospital Physician GroupComment on above:Performed By: #### BENNY, FE and TIBC, CBC #### [facility] [address] [place] [address] USATotal Iron Binding Fflyknen280 ug/qFLcrluu473-255Iod [facility] Physician GroupComment on above:Performed By: #### BENNY, FE and TIBC, CBC #### [facility] [address] [place] [address] USATransferrin [Mass/Vol]216 mg/eKUdwbri930-801Scz [facility] Physician GroupComment on above:Performed By: #### BENNY, FE and TIBC, CBC #### [facility] [address] [place] [id number] USALeukocytes [#/volume] corrected for nucleated erythrocytes in Blood by Automated counOrdered By: Ute Griffin on 53-33-0612OKU corrected for nucl RBC Auto (Bld) [#/Vol]Leukocytes [#/volume] corrected for nucleated erythrocytes in Blood by Automated coun3.8-11.6FParkwood Hospital Lymphocytes Auto (Bld) [#/Vol]Ordered By: Ute Griffin on 24-16-0158Hyiwkiwwumv (Bld) [#/Vol]Lymphocytes [#/volume] in Blood by Automated count1.00-4.8[facility] - DublinLymphocytes/100 WBC Auto (Bld)Ordered By: Ute Griffin on 75-07-7208Bwtybiohnjq/100 WBC (Bld)Lymphocytes/100 leukocytes in Blood by Automated count.[facility] Auto (RBC) [Entitic mass] Ordered By: Ute Griffin on 87-59-4050DHX (RBC) [Entitic mass]MCH [Entitic mass] by Automated kdezaRaun78.7-34.3FKettering HealthHC Auto (RBC) [Mass/Vol]Ordered By: Ute Griffin on 34-93-5457QDXZ (RBC) [Mass/Vol]MCHC [Mass/volume] by Automated count32.0-35.0[facility] - DublinMCV Auto (RBC) [Entitic vol]Ordered By: Ute Griffin on 43-02-3826AFR (RBC) [Entitic vol]MCV [Entitic volume] by Automated xhihz48-788VnucdomupSelect Medical Ohiohealth Rehabilitation Hospital - DublinMonocytes Auto (Bld) [#/Vol]Ordered By: Ute Griffin on 10-14-2024 Monocytes (Bld) [#/Vol]Automated blood monocyte count0.0-0.8[facility] - DublinMonocytes/100 WBC Auto (Bld)Ordered By: Ute Griffin on 10-14-2024 Monocytes/100 WBC (Bld)Automated monocyte %.[facility] Neutrophils Auto (Bld) [#/Vol]Ordered By: Ute Griffin on 20-61-0230Qconfnbixvi (Bld) [#/Vol]Neutrophils [#/volume] in Blood by Automated count1.8-7.7FParkwood HospitalNeutrophils/100 WBC Auto (Bld)Ordered By: Ute Griffin on 23-29-8950Chqpvbzpydj/100 WBC (Bld)Automated neutrophil %.[facility] - DublinNucleated erythrocytes [Presence] in Blood by Automated count Ordered By: Ute Griffin on 11-92-7628Qxbyhirsv RBC Auto Ql (Bld)Nucleated erythrocytes [Presence] in Blood by Automated count0-0.5FParkwood HospitalPlatelet mean volume Auto (Bld) [Entitic vol]Ordered By: Ute Griffin on 04-93-7871Wtqvolsj mean volume (Bld) [Entitic vol]Platelet mean volume [Entitic volume] in Blood by Automated count6.3-10.7FParkwood HospitalPlatelets Auto (Bld) [#/Vol]Ordered By: Ute Griffin on 10-14-2024 Platelets (Bld) [#/Vol]Platelets [#/volume] in Blood by Automated -568 [facility] - DublinRBC Auto (Bld) [#/Vol]Ordered By: Ute Griffin on 42-51-6487DMF (Bld) [#/Vol]Erythrocytes [#/volume] in Blood by Automated count3.60-5.00Corey Hospitalerum or plasma iron binding capacity measurement (mass/volume)Ordered By: Ute Griffin on 18-49-3857Xskw binding capacity [Mass/Vol]Iron binding capacity [Mass/volume] in Serum or Dfafta336-491JaysdrjmsCorey Hospitalerum or plasma iron saturation measurement (mass fraction)Ordered By: Ute Griffin on 13-46-9947Iopj saturation [Mass fraction]Iron saturation [Mass Fraction] in Serum or Ntkkea02-43TjlepbxqfSelect Medical Ohiohealth Rehabilitation Hospital - DublinTransferrin [Mass/volume] in Serum or PlasmaOrdered By: Ute Griffin on 52-94-0707Vfipyqizrsk [Mass/Vol]Transferrin [Mass/volume] in Serum or Lmnqnc110-625LukcjaqziSelect Medical Ohiohealth Rehabilitation Hospital - DublinWBC Auto (Bld) [#/Vol] Ordered By: Ute Griffin on 18-45-0753OFL (Bld) [#/Vol]Leukocytes [#/volume] in Blood by Automated count3.8-11.6FParkwood HospitalBasophils Auto (Bld) [#/Vol]Ordered By: Ute Griffin on 70-69-5995Nlcvplbbg (Bld) [#/Vol] Automated basophil count0.0-0.2FParkwood HospitalBasophils/100 WBC Auto (Bld)Ordered By: Ute Griffin on 21-19-1293Vgfjjnnbd/100 WBC (Bld) Automated basophil %.[facility] DublinComplete Blood Count Auto Diffon 13-66-2561Fukildfjt (Bld) [#/Vol]0.1 10*3/uLNormal0.0-0.2The [facility] Hospital Physician GroupComment on above:Result Comment: PERFORMED BY: [place] [address] PATHOLOGIST PARTNER MANAGER ANTONIO PEREA M.D.Performed By: #### CBC, BENNY, FE and TIBC #### [facility] [address] [place] [address] USABasophils/100 WBC (Bld)1.3 %Normal.The [facility] Hospital Physician GroupComment on above:Performed By: #### CBC, BENNY, FE and TIBC #### [place] [address] USAEosinophils (Bld) [#/Vol]0.0 10*3/uLNormal0.0-0.45The [facility] Physician GroupComment on above:Performed By: #### CBC, BENNY, FE and TIBC #### [place] [address] USAEosinophils/100 WBC (Bld)0.6 %Normal.The [facility] Hospital Physician GroupComment on above:Performed By: #### CBC, BENNY, FE and TIBC #### [place] [address] USAErythrocyte distribution width (RBC) [Ratio]16.4 %High 11.9-15.3The [facility] Hospital Physician GroupComment on above:Performed By: #### CBC, BENNY, FE and TIBC #### [place] [address] USAHematocrit (Bld) [Volume fraction]32.9 %Low34.0-46.4The [facility] Physician GroupComment on above:Performed By: #### CBC, BENNY, FE and TIBC #### [place] [address] USAHemoglobin (Bld) [Mass/Vol]11.1 g/dLLow11.8-15.4The [facility] Physician GroupComment on above:Performed By: #### CBC, BENNY, FE and TIBC #### [place] [address] USALymphocytes (Bld) [#/Vol]1.4 10*3/uLNormal1.00-4.8The [facility] Physician GroupComment on above:Performed By: #### CBC, BENNY, FE and TIBC #### [place] [address] USALymphocytes/100 WBC (Bld)21.1 %Normal.The [facility] Physician GroupComment on above:Performed By: #### CBC, BENNY, FE and TIBC #### [place] [address] USAMCH (RBC) [Entitic mass]32.0 axVgoqre16.7-34.3The [facility] Physician GroupComment on above:Performed By: #### CBC, BENNY, FE and TIBC #### [facility] [address] (RBC) [Entitic vol]94.4 hAWhrmgt86-889Cmw [facility] Physician GroupComment on above:Performed By: #### CBC, BENNY, FE and TIBC #### [facility] [address] [place] [address] USAMean Corpuscular HGB Conc33.9 g/tCFyjxcz54.0-35.0The [facility] Physician GroupComment on above:Performed By: #### CBC, EBNNY, FE and TIBC #### [place] [address] USAMonocytes (Bld) [#/Vol]0.4 10*3/uLNormal0.0-0.8The [facility] Physician GroupComment on above:Performed By: #### CBC, BENNY, FE and TIBC #### [place] [address] USAMonocytes/100 WBC (Bld)5.3 %Normal.The [facility] Physician GroupComment on above:Performed By: #### CBC, BENNY, FE and TIBC #### [place] [address] USANeutrophils (Bld) [#/Vol]4.8 10*3/uLNormal1.8-7.7The [facility] Physician GroupComment on above:Performed By: #### CBC, BENNY, FE and TIBC #### [place] [address] USANeutrophils/100 WBC (Bld)71.7 %Normal.The [facility] Hospital Physician GroupComment on above:Performed By: #### CBC, BENNY, FE and TIBC #### [place] [address] USANRBC%0.0 /100{WBC}Normal0-0.5The [facility] Group Comment on above:Performed By: #### CBC, BENNY, FE and TIBC #### [facility] [address] [place] [address] USAPlatelet mean volume (Bld) [Entitic vol]7.6 fLNormal 6.3-10.7The [facility] Physician GroupComment on above:Performed By: #### CBC, BENNY, FE and TIBC #### [facility] [address] [place] [address] USAPlatelets (Bld) [#/Vol]223 10*3/tZRcbxrf035-045Zob [facility] Physician GroupComment on above:Performed By: #### CBC, BENNY, FE and TIBC #### [place] [address] USARBC (Bld) [#/Vol]3.49 10*6/uLLow3.60-5.00The [facility] Physician GroupComment on above:Performed By: #### CBC, BENNY, FE and TIBC #### [place] [address] USAWBC (Bld) [#/Vol]6.7 10*3/uLNormal3.8-11.6The [facility] Physician GroupComment on above:Performed By: #### CBC, BENNY, FE and TIBC #### [place] [address] USAEosinophils Auto (Bld) [#/Vol]Ordered By: Ute Griffin on 13-70-2080Blkeziiubcf (Bld) [#/Vol]Automated eosinophil count0.0-0.45[facility] - DublinEosinophils/100 WBC Auto (Bld)Ordered By: Ute Griffin on 39-91-9682Yzclbhsxomb/100 WBC (Bld)Automated eosinophil %.[facility] Hospital - DublinErythrocyte distribution width Auto (RBC) [Ratio]Ordered By: Ute Griffin on 89-10-7902Wbokxomqitv distribution width (RBC) [Ratio]Erythrocyte distribution width [Ratio] by Automated ywlhvWbvv28.9-15.3FParkwood HospitalFerritinon 52-49-6486Vwexpeta [Mass/Vol]5.2 ng/mLLow11.0-306.8The [facility] Physician GroupComment on above:Result Comment: PERFORMED BY: [facility] [address] [place] [id number] PATHOLOGIST PARTNER MANAGER ANTONIO PEREA M.D.Performed By: #### CBC, BENNY, FE and TIBC #### [facility] [address] [place] [id number] USAFerritin [Mass/volume] in Serum or PlasmaOrdered By: Ute Griffin on 96-98-9401Gdvkvtxs [Mass/Vol]Ferritin [Mass/volume] in Serum or EyamgeCtt96.0-306.8[facility] Hospital - DublinHematocrit Auto (Bld) [Volume fraction]Ordered By: Ute Griffin on 92-71-2098Vbwdpznapq (Bld) [Volume fraction]Hematocrit [Volume Fraction] of Blood by Automated pseyhInm86.0-46.4 [facility] - DublinHemoglobin [Mass/volume] in BloodOrdered By: Ute Griffin on 75-95-7096Xvftwcrowv (Bld) [Mass/Vol]Hemoglobin [Mass/volume] in CpsbhTaa89.8-15.4FParkwood HospitalIron [Mass/volume] in Serum or PlasmaOrdered By: Ute Griffin on 39-94-4733Jhtm [Mass/Vol]Iron [Mass/volume] in Serum or IgkuevZra64-718YogeeecizSelect Medical Ohiohealth Rehabilitation Hospital - DublinIron and TIBC Profileon 08-04-2024% Iron Yabhocwaud26.2 %Cja09-57Lcp [facility] Physician [facility] Comment on above:Performed By: #### CBC, BENNY, FE and TIBC #### [facility] [address] [place] [address] USAIron [Mass/Vol]49 ug/eTIna09-904Crd [facility] Physician GroupComment on above:Performed By: #### CBC, BENNY, FE and TIBC #### [facility] [address] [place] [address] USATotal Iron Binding Wzoltvvj916 ug/dGCrjunb414-980Mjk [facility] Physician GroupComment on above:Performed By: #### CBC, BENNY, FE and TIBC #### [facility] [address] [place] [address] USATransferrin [Mass/Vol]288 mg/pDTuzzkv735-404Hqp [facility] Physician GroupComment on above:Performed By: #### CBC, BENNY, FE and TIBC #### [facility] [address] [place] [address] USALeukocytes [#/volume] corrected for nucleated erythrocytes in Blood by Automated counOrdered By: Ute Griffin on 64-83-0502DLM corrected for nucl RBC Auto (Bld) [#/Vol]Leukocytes [#/volume] corrected for nucleated erythrocytes in Blood by Automated coun3.8-11.6FParkwood Hospital Lymphocytes Auto (Bld) [#/Vol]Ordered By: Ute Griffin on 33-43-3492Sobxihrootd (Bld) [#/Vol]Lymphocytes [#/volume] in Blood by Automated count1.00-4.8[facility] Hospital - DublinLymphocytes/100 WBC Auto (Bld)Ordered By: Ute Griffin on 52-37-2567Jtrqagaxmpx/100 WBC (Bld)Lymphocytes/100 leukocytes in Blood by Automated count.[facility] Auto (RBC) [Entitic mass] Ordered By: Ute Griffin on 05-91-8225NZF (RBC) [Entitic mass]MCH [Entitic mass] by Automated count24.7-34.3FKettering HealthHC Auto (RBC) [Mass/Vol]Ordered By: Ute Griffin on 94-49-9042TIZV (RBC) [Mass/Vol]MCHC [Mass/volume] by Automated count32.0-35.0[facility] - DublinMCV Auto (RBC) [Entitic vol]Ordered By: Ute Griffin on 54-46-1719PPP (RBC) [Entitic vol]MCV [Entitic volume] by Automated wlmid19-957RbilzvsocSelect Medical Ohiohealth Rehabilitation Hospital - DublinMonocytes Auto (Bld) [#/Vol]Ordered By: Ute Griffin on 08-04-2024 Monocytes (Bld) [#/Vol]Automated blood monocyte count0.0-0.8[facility] - DublinMonocytes/100 WBC Auto (Bld)Ordered By: Ute Griffin on 08-04-2024 Monocytes/100 WBC (Bld)Automated monocyte %.[facility] Neutrophils Auto (Bld) [#/Vol]Ordered By: Ute Griffin on 91-12-4572Swrcrzzixhp (Bld) [#/Vol]Neutrophils [#/volume] in Blood by Automated count1.8-7.7FParkwood HospitalNeutrophils/100 WBC Auto (Bld)Ordered By: Ute Griffin on 16-00-4418Vdbcsfqylrn/100 WBC (Bld)Automated neutrophil %.[facility] - DublinNucleated erythrocytes [Presence] in Blood by Automated count Ordered By: Ute Griffni on 95-24-3164Klyeluzaz RBC Auto Ql (Bld)Nucleated erythrocytes [Presence] in Blood by Automated count0-0.5FParkwood HospitalPlatelet mean volume Auto (Bld) [Entitic vol]Ordered By: Ute Griffin on 29-38-8651Yyraemqz mean volume (Bld) [Entitic vol]Platelet mean volume [Entitic volume] in Blood by Automated count6.3-10.7FParkwood HospitalPlatelets Auto (Bld) [#/Vol]Ordered By: Ute Griffin on 08-04-2024 Platelets (Bld) [#/Vol]Platelets [#/volume] in Blood by Automated -720 [facility] - DublinRBC Auto (Bld) [#/Vol]Ordered By: Ute Griffin on 18-90-5901VVG (Bld) [#/Vol]Erythrocytes [#/volume] in Blood by Automated countLow3.60-5.00Corey Hospitalerum or plasma iron binding capacity measurement (mass/volume)Ordered By: Ute Griffin on 31-05-2435Kaux binding capacity [Mass/Vol]Iron binding capacity [Mass/volume] in Serum or Olvcgb936-561JnbmomjmeCorey Hospitalerum or plasma iron saturation measurement (mass fraction)Ordered By: Ute Griffin on 76-44-3984[place] saturation [Mass fraction]Iron saturation [Mass Fraction] in Serum or EepzgdTpx88-30 [facility] - DublinTransferrin [Mass/volume] in Serum or Plasma Ordered By: Ute Griffin on 50-63-6274Ymtzzmbtakz [Mass/Vol]Transferrin [Mass/volume] in Serum or Rvequo851-503NcyubstkdSelect Medical Ohiohealth Rehabilitation Hospital - DublinWBC Auto (Bld) [#/Vol]Ordered By: Ute Griffin on 13-34-9196FBA (Bld) [#/Vol]Leukocytes [#/volume] in Blood by Automated count3.8-11.6FParkwood Hospital EDMUNDO with Reflexon 05-89-0373EUE with ReflexNegativeNormalNegativeThe Mission Hospital Physician GroupComment on above:Result Comment: Performed at: [facility] [place]Ash[place] [address] Groundskeeper: Andres Arboleda PhD, Phone: [phone] PERFORMED BY: [place] [address] PATHOLOGIST PARTNER MANAGER JALEN LEON M.D.Performed By: #### EDMUNDO CHOICE #### [facility] ,Serum or plasma free cefuroxime measurement (mass/volume)Ordered By: Fernanda Concepcion on 01-22-4147Sgiqnypzyl free [Mass/Vol]Serum or plasma free cefuroxime measurement (mass/volume)[facility]'s HospitalComment on above:Performed at: [facility] LabMatthew [place] [address]Lab Director: Andres Arboleda PhD, Phone: [phone] thoracic spine 3V*on 58-28-7585JI thoracic spine 3V*[facility] [place] [address] XRay Report Signed Patient: Katy Banuelos MR#: [id number] : 1975 Acct:[id number] Age/Sex: 49 / F ADM Date: 07/22/24 Loc: XD Room: Type: [facility] Attending Dr: Fernanda Concepcion MD Copies to: [...] Mcmillan Jr., D.OJf07/22/2024 4:08 PM Dictation Location: [place] [address] Transcribed By: [facility] 07/22/24 160 Dictated By: Freedom Mcmillan Jr, DO 07/22/241606 Signed By: 07/22/24 1608NoCommunity Health Physician [facility] Specialty HospitalUrinalysis macro (dipstick) panel (U)on 75-50-7617Aoaugpqio, UANegativeNegative - 4(70) +++ mg/dLNOMS HealthcareBlood, UANegativeNegative [...] IA.rapid Ql (U)Ordered By: Spencer Valadez on 43-31-1962SHX ( test) Ql (U)NegativeSelect Medical [facility]health Rehabilitation Hospital - Dublin HCG,Urineon 53-63-8158Ywvf HCG ( test) Ql (U)NegativeNoCommunity Health Physician GroupComment on above:Result Comment: PERFORMED BY: [place] [address] [place] [address] PATHOLOGIST PARTNER MANAGER JALEN LEON M.D.Performed By: #### UHCG ####[facility] [place] [address] [facility] 33-09-3210HIrmdagkc: [id number] Received: 03/04/24 Status: TEJAL Sneed Num: [id number] Spec Type: Surgical Subm Dr: Spencer Valadez MD Tissues: A Duodenum - Biopsy (DUODENUM) B GASTRIC FOR HP (GASTRIC HP) C Colon Biopsy (HEPATIC FLEXURE POLYP) Procedures: HE/6, Gross/Micro L4/3, H PYLORI, IHC First AB Age/ Patient Sex Location Account Attending Physician Katy Banuelos 49/F [id number] Spencer Valadez MD SPEC NUM: [id number] RECD: 03/04/24 STATUS: TEJAL SNEED NUM: [id number] TWIN: 03/04/24 DR: Spencer Valadez MD ENTERED: 03/04/24 [facility] DR: SPEC TYPE: Surgical DEPT: S ORDERED: [...] celiac and rule out H. pylori. Specimen: [id number] Received: 03/04/24 Status: TEJAL Sneed Num: [id number] Spec Type: Surgical Subm Dr: Spencer Valadez MD Tissues: A Duodenum - Biopsy (DUODENUM) B GASTRIC FOR HP (GASTRIC HP) C Colon Biopsy (HEPATIC FLEXURE POLYP) Procedures: HE/6, Gross/Micro L4/3, H PYLORI, IHC First AB Patient: Katy Banuelos [id number] (Continued) Specimen: [id number] Received: 03/04/24 (Continued) Signed (signature on file) Jorge Albrecht MD 03/06/24 1548 Specimen: [id number] Received: 03/04/24 Status: TEJAL Sneed Num: [id number] Spec Type: Surgical Subm Dr: Spencer Valadez MD Tissues: A Duodenum - Biopsy (DUODENUM) B GASTRIC FOR HP (GASTRIC HP) C Colon Biopsy (HEPATIC FLEXURE POLYP) Procedures: HE/6, Gross/Micro L4/3, H PYLORI, IHC First AB Patient: Katy Banuelos [id number] (Continued) Specimen: [id number] Received: 03/04/24-113 (Continued) Gross Description Received are [...] x 0.1 cm, entirely submitted in C1. CPT Codes 34999 X.3 49585 Specimen: [id number] Received: 03/04/24 Status: TEJAL Sneed Num: [id number] Spec Type: Surgical Subm Dr: Spencer Valadez MD Tissues: A Duodenum - Biopsy (DUODENUM) B GASTRIC FOR HP (GASTRIC HP) C Colon Biopsy (HEPATIC FLEXURE POLYP) Procedures: HE/6, Gross/Micro L4/3, H PYLORI, IHC First AB Patient: Katy Banuelos [id number] (Continued) Signed (signature on file) Carlos A-Sundeep Albrecht MD 03/06/24 [facility] Physician GroupHeart and Vascular Office/Clinic Noteon 79-64-3845Wcfso and Vascular Office/Clinic NoteChief Complaint vascular patient here to establish care History of Present Illness Katy Mark is a 75-zdwff-ujs female presents to the office to establish [...] August 2022, she underwent an echocardiogram at [facility], which yielded normal results. Additionally, she underwent [...] with voice recognition artificial intelligence software, specifically [employer] and or [employer]. Substitutions may have occurred due to the inherent limitations of voice recognition and artificial intelligence software. ATTESTATION: Documentation services were performed after patient or guardian consented to allow [employer] to record this visit. CASEY recruitment specialist and provider reviewed before signing. CASEY: [...] Previous treatment: None. Alc (more content not included)...[facility]iance HospitalComment on above:Result Comment: Electronically Signed By: Sandy DELEON, Girma Dawson\.br\Date and Time Signed: 02/18/24 10:07 EDT\.br\Electronically Co-Signed By: Diane Wilks\.br\Date and Time Co-Signed: 01/30/24 17:05 EDTCHEMISTRYOrdered By: SYSTEM SYSTEM on 10-49-8941Amvjpkp [Mass/Vol]4.3 g/dLNormal3.3 - 5.0 gm/dLRemisol Chem Albumin/Globulin [Mass ratio]2.2 {ratio}Normal1.1 - 2.2Remisol ChemALP [Catalytic activity/Vol]55 [iU]/nQbytic43 - 98 Int._Unit/LRemisol ChemALT No additional P-5'-P [Catalytic activity/Vol]11 [iU]/dNormal6 - 46 Int._Unit/L Remisol ChemAnion gap [Moles/Vol]8 mmol/LNormal6 - 16 mEq/LRemisol ChemAST [Catalytic activity/Vol]17 [iU]/dNormal5 - 43 Int._Unit/LRemisol ChemBilirubin [Mass/Vol]0.7 mg/dLNormal0.0 - 1.1 mg/dLRemisol ChemCalcium [Mass/Vol]8.8 mg/dL Low8.9 - 11.1 mg/dLRemisol ChemChloride [Moles/Vol]105 mmol/EYucgms603 - 111 mmol/LRemisol ChemCholesterol [Mass/Vol]166 mg/fQGgezqq878 - 200 mg/dLRemisol ChemCholesterol in HDL [Mass/Vol]62 mg/dLInvalid Interpretation CodeRemisol Chem Comment on above:Result Comment: '>= 60 LOW RISK' '<= 40 HIGH RISK'Cholesterol in LDL [Mass/Vol]103 mg/dLNormal<=129mg/dLRemisol ChemCholesterol in VLDL [Mass/Vol]9 mg/dLNormal7 - 40 mg/dLRemisol ChemCO2 [Moles/Vol]29 mmol/UScyqvx76 - 31 mmol/LRemisol ChemCreatinine [Mass/Vol]0.7 mg/dLNormal0.5 - 1.3 mg/dLRemisol ChemCRP [Mass/Vol]mg/dLNormal<=1.9mg/dLRemisol SpgctKIX692 mL/min/1.73 c7Spptxv>=59mL/min/1.73 y6Zxokjhs ChemGlobulin (S) [Mass/Vol]2.0 g/dLNormal1.4 - 4.0 gm/dLRemisol ChemGlucose [Mass/Vol]85 mg/dL Utiziu81 - 199 mg/dLRemisol ChemPotassium [Moles/Vol]4.2 mmol/LNormal3.5 - 5.3 mmol/LRemisol ChemProtein [Mass/Vol]6.3 g/dLNormal6.0 - 7.8 gm/dLRemisol Chem Sodium [Moles/Vol]138 mmol/DAxyneu710 - 145 mmol/LRemisol ChemTriglyceride [Mass/Vol]46 mg/dLNormal<=149mg/dLRemisol ChemUrea nitrogen [Mass/Vol]13 mg/dL Normal5 - 21 mg/dLRemisol ChemUrea nitrogen/Creatinine [Mass ratio]19 mg/mg Eufzbu56 - 20Remisol ChemCMPon 26-65-8172Tkzknxj [Mass/Vol]4.3 g/dLNormal3.3-5.0 [facility] FoundationComment on above:Performed By: #### [id number] #### [facility] [address], [place] [address]Ghxjaib/Globulin (S) [Mass conc ratio]2.4Zalktp1.1-2.2FAkron Children's HospitalComment on above:Performed By: #### [id number] #### [facility] [address], [place] [address]VQQ [Catalytic activity/Vol]55 Int._Unit/BWpumta09-86IsojmvCleveland Clinic FoundationComment on above:Performed By: #### [id number] #### [facility] [address], [place] [address]DWT No additional P-5'-P [Catalytic activity/Vol]11 Int._Unit/L Normal6-46[facility] FoundationComment on above:Performed By: #### [id number] #### [facility] [address], [place] [address]Luiem gap [Moles/Vol]8 mmol/LNormal6-16[facility] FoundationComment on above:Performed By: #### [id number] #### [facility] [address], [place] [address]LWI [Catalytic activity/Vol]17 Int._Unit/LNormal5-43[facility] FoundationComment on above:Performed By: #### [id number] #### [facility] [address], [place] [address]Duolhjpga [Mass/Vol]0.7 mg/dLNormal0.0-1.1FAkron Children's HospitalComment on above:Performed By: #### [id number] #### [facility] [address], [place] [address]Fjrwicz [Mass/Vol]8.8 mg/dLLow8.9-11.1FAkron Children's HospitalComment on above:Performed By: #### [id number] #### [facility] [address], [place] [address]Gqfelqpn [Moles/Vol]105 mmol/RUvwcgy707-658IlwpfuCleveland Clinic FoundationComment on above:Performed By: #### [id number] #### [facility] [address], [place] [address]GY1 [Moles/Vol]29 mmol/SWjgdtc72-31PzmhyxCleveland Clinic Foundation Comment on above:Performed By: #### [id number] #### [facility] [address], [place] [address]Fofmcoeeip [Mass/Vol]0.7 mg/dLNormal0.5-1.3FAkron Children's HospitalComment on above:Performed By: #### [id number] #### [facility] [address], [place] [address]Mcouyqpr (S) [Mass/Vol]2.0 g/dLNormal1.4-4.0[facility] FoundationComment on above:Performed By: #### [id number] #### [facility] [address], [place] [address]Rdezloo [Mass/Vol]85 mg/nCCpjvrr74-577VoyiwlCleveland Clinic FoundationComment on above:Performed By: #### [id number] #### [facility] [address], [place] [address]Korrxtsbo [Moles/Vol]4.2 mmol/LNormal3.5-5.3FAkron Children's HospitalComment on above:Performed By: #### [id number] #### [facility] [address] [place] [address]Bjcvzyc [Mass/Vol]6.3 g/dLNormal6.0-7.8[facility] FoundationComment on above:Performed By: #### [id number] #### [facility] [address] [place] [address]Brddbk [Moles/Vol]138 mmol/UEegjgw091-498MjbotbCleveland Clinic FoundationComment on above:Performed By: #### [id number] #### [facility] [address] [place] [address]Stlq nitrogen [Mass/Vol]13 mg/dLNormal5-21[facility] FoundationComment on above:Performed By: #### [id number] #### [facility] [address] [place] [address]Vdhx nitrogen/Creatinine [Mass ratio]19 No MisdtBuxgef18-36 [facility] FoundationComment on above:Performed By: #### [id number] #### [facility] [address] [place] [address]SCTek 80-95-8523SPM [Mass/Vol]mg/LNormal<=1.9[facility] FoundationComment on above:Performed By: #### [id number] #### [facility] [address] [place] [address]Exjmuwi for Treatmenton 64-07-5954Cpudtnu for Treatment [id number]#1.00TIFFNormalCleveland Clinic FoundationHEMATOLOGYOrdered By: Kelly Dutton on 50-77-5988RAV (Bld) [Velocity]3 mm/hNormal0 - 34 mm/[facility] HemeAutoSSLipid Panelon 30-00-7931Oswyovjlkcw [Mass/Vol]166 mg/hHKvfegm246-357MxdkgyCleveland Clinic FoundationComment on above: Performed By: #### [id number] #### [facility] [address], [place] [address]Kntsqaqnvtf in HDL [Mass/Vol]62 mg/dLInvalid Interpretation CodeCleveland Clinic FoundationComment on above:Result Comment: '>= 60 LOW RISK' '<= 40 HIGH RISK'Performed By: #### [id number] #### [facility] [address], [place] [address]Xjzfltyvdaq in LDL [Mass/Vol]103 mg/dLNormal<=129[facility] FoundationComment on above:Performed By: #### [id number] #### [facility] [address], [place] [address]Lovpqogjwtn in VLDL [Mass/Vol]9 mg/dLNormal7-40[facility] FoundationComment on above:Performed By: #### [id number] #### [facility] [address], [place] [address]Krwuedjwugzl [Mass/Vol]46 mg/dLNormal<=149[facility] FoundationComment on above:Performed By: #### [id number] #### [facility] [address], [place] [address]Zom Rate Automatedon 28-38-7865XDN (Bld) [Velocity]3 mm/hNormal 0-34[facility] FoundationComment on above:Performed By: #### [id number] #### [facility] [address], [place] [address]MT Carotid Duplex Bilateralon 36-84-0047AK Carotid Duplex BilateralExam Date/Time: 02/06/2024 12:20 EDT [...] Carotid Diagnostic Criteria Committee. Vascular Medicine 2020; https://journals.sagepub.com/doi/full/10.1177/3372669T780251911 Ordering Provider: Girma Delgado FINAL REPORT Dictated: 02/06/2024 4:04 pm Crystal Goncalves Signed (Electronic Signature): 02/06/2024 4:04 pm Signed by: Crystal Goncalves Transcribed by: MARKUS Technologist: MAUREEN Technical Comments Velocities Right Vert. Antegrade Yes Velocities Left Vert. Antegrade YesNormalFishMedStar Good Samaritan HospitaleGFRon 33-73-1033jJHA140 mL/min/1.73 i1Lzirfj>=59C[facility] FoundationComment on above:Order Comment: Order added by Discern Expert.Performed By: #### [id number] #### [facility] [address] [place], [place] [address]Gbkprky 26-05-1075Vnfqg [id number]#1.00[facility] HospitalConsent for Treatmenton 01-76-9867Bmttoed for Treatment [id number]#1.00[facility] HospitalOutside Recordson 22-83-5241Pzajjhw Records [id number]#1.00[facility] HospitalPhysician Orderon 96-44-2493Btvbgqqcu Order [id number]#1.00[facility] HospitalEchocardiographyon 57-29-3027Ouvacgplxbntizkd [id number]#1.00[facility] HospitalOutside Radiologyon 11-54-4544Mxndtnc Radiology [id number]#1.00[facility] HospitalReferrals Officeon 07-80-1208Plmdcqxbj Office [id number]#1.00[facility] HospitalReferrals [id number]#1.00TIFUpper Valley Medical CenterIgA [Mass/volume] in Serum or PlasmaOrdered By: Candelario Johansen on 64-98-5069XxP [Mass/Vol]125 mg/uG21-590Pbhpdbxwu[address] [place], [place] [address]Comment on above:Performed at: [facility] Lab[address], [place] [id number] Director: Andres Arboleda PhD, Phone: [phone] Panel InformationOrdered By: Candelario Johansen on 52-48-1397Dkesrfivzi IgA Antibody NegativeNegativeCorey Hospitalerum gliadin peptide IgA antibody assay (units/volume)Ordered By: Candelario Johansen on 96-70-4610Mlovkeb peptide IgA Qn (S)8 units0-[facility] Hospital - DublinComment on above: Negative 0 - 19 Weak Positive 20 - 30 Moderate to Strong Positive >30Serum gliadin peptide IgG antibody assay (units/volume)Ordered By: Candelario Johansen on 00-44-5553Zzfeodn peptide IgG Qn (S)5 units0[facility] Comment on above:Negative 0 - 19 Weak Positive 20 - 30 Moderate to Strong Positive >30Serum tissue transglutaminase (tTG) IgA antibody assay (units/volume)Ordered By: Candelario Johansen on 75-59-2186sID IgA Qn (S)<2 U/mL0-3 [facility] Hospital - DublinComment on above:Negative 0 - 3 Weak Positive 4 - 10 Positive >10 Tissue Transglutaminase (tTG) has been identified as the endomysial antigen. Studies have demonstr- ated that endomysial IgA antibodies have over 99% specificity for gluten sensitive enteropathy.Serum tissue transglutaminase (tTG) IgG antibody assay (units/volume)Ordered By: Candelario Johansen on 19-66-4477xFJ IgG Qn (S)5 U/mL0-5FParkwood Hospital Comment on above:Negative 0 - 5 Weak Positive 6 - 9 Positive >9Thyrotropin [Units/volume] in Serum or PlasmaOrdered By: Candelario Johansen on 91-16-9805FQN Qn 0.60 m[IU]/L0.45-5.33[facility] - DublinAFB cultureOrdered By: Marta Hernandez on 89-79-1750Qnhfonyqymbsj sp identified Org specific cx Nom (Unsp spec)[facility] - DublinFungal cultureOrdered By: Marta Hernandez on 59-38-7335Qlcxnr identified Cx Nom (Unsp spec)[facility] Hospital - DublinFungus # 2 identified in Unspecified specimen by CultureOrdered By: Marta Hernandez on 56-39-9681Trcqzv identified # 2 Cx Nom (Unsp spec)[facility] HospitalFungus # 3 identified in Unspecified specimen by Culture Ordered By: Marta Hernandez on 95-64-7583Xwbxuu identified # 3 Cx Nom (Unsp spec) [facility] HospitalFungus # 4 identified in Unspecified specimen by CultureOrdered By: Marta Hernandez on 09-02-2630Cqycqk identified # 4 Cx Nom (Unsp spec)[facility] HospitalGram stain for investigation of transfusion reactionOrdered By: Marta Hernandez on 09-14-2023 Microscopic observation Gram stain Nom (Unsp spec)Haemophilus influenzae [facility] - DublinMicroscopic observation Gram stain Nom (Unsp spec)Haemophilus influenzaeSelect Medical Ohiohealth Rehabilitation Hospital - DublinNo Panel Information Ordered By: Marta Hernandze on 75-55-1556Yvzustyh SusceptibilityN/[facility] HospitalXR hand RT min 3V*on 09-79-6563XA hand RT min 3V* [facility] [employer] Other XR hand RT min 3V*[facility] [employer] Other XR hand RT min 3V*[address] [place] [address] [employer] Other XR hand RT min 3V*[place] [address]MxjciEvergreenhealth [employer] Other XR hand RT min 3V*[facility] Other XR hand RT min 3V*[facility] Other XR hand RT min 3V*Patient: Katy Banuelos MR#: [id number] Other XR hand RT min 3V*[id number] Other XR hand RT min 3V*: 1975 Acct:[id number] [facility] Other XR hand RT min 3V*Age/Sex: 48 / F ADM Date: 09/04/23 [facility] Other XR hand RT min 3V*Loc: [facility] Room: Type: [facility] Other XR hand RT min 3V*Attending Dr: Prashant Mitchell [facility] HospitalV[facility] Other XR hand RT min 3V*Copies to: Prashant Mitchell, [employer] Other XR hand RT min 3V*Ordering Provider: Prashant Mitchell [employer] Other XR hand RT min 3V*Date of Service: 09/04/23[facility] Other XR hand RT min 3V* XR/XR hand RT min 3V*: Right hand painShumway [facility] Other XR hand RT min 3V*XR hand RT min 3V* 09/04/2023 8:17 [facility] Other XR hand RT min 3V*SIGNS AND SYMPTOMS: Hyperextension injury to right thumbHello Chair [facility] Other XR hand RT min 3V*PROTOCOL: Frontal, lateral, and oblique radiographs of the right handShumway [facility] Other XR hand RT min 3V*COMPARISON: [facility] Other XR hand RT min 3V*FINDINGS:[employer] Other XR hand RT min 3V*The bones are in anatomic alignment. The joint spaces are preserved. There is no evidence ofLife[employer] Other XR hand RT min 3V*fracture or dislocation. No significant soft tissue swelling.[employer] Other XR hand RT min 3V* XR/XR hand RT min 3V*[employer] Other XR hand RT min 3V*IMPRESSION:[employer] Other XR hand RT min 3V*No acute bony injury.[employer] Other XR hand RT min 3V*No significant soft tissue swelling. [employer] Other XR hand RT min 3V*Impression dictated by: Jermain Sultana M.D.09/04/2023 10:15 [facility] Other XR hand RT min 3V*Dictation Location: ISRON-GL-78Dsupp [facility] Other XR hand RT min 3V*Transcribed By: [facility] 09/04/23 1015 [employer] Other XR hand RT min 3V*Dictated By: Jermain Sultana II, MD 09/04/[address] [place] [address] [facility] Other XR hand RT min 3V*Signed By:[employer] Other XR hand RT min 3V*09/04/23 [facility] CenterLifeNexus Other Plan of Care - PT/OT/Speechon 49-23-8681Lkwg of Care - PT/OT/[id number]#1.00TIFFNormalCleveland Clinic FoundationAlanine aminotransferase [Enzymatic activity/volume] in Serum or PlasmaOrdered By: Fernanda Concepcion on 99-04-7848KKW [Catalytic activity/Vol]18 U/L 7-52[facility] - DublinAlbumin [Mass/volume] in Serum or Plasma by Bromocresol green (BCG) dye binding methoOrdered By: Fernanda Concepcion on 05-25-2023 Albumin BCG dye [Mass/Vol]4.7 g/dL3.5-5.7FParkwood Hospital Alkaline phosphatase [Enzymatic activity/volume] in Serum or PlasmaOrdered By: Fernanda Concepcion on 18-78-0686QVN [Catalytic activity/Vol]51 U/M77-403QxopmzntcSelect Medical Ohiohealth Rehabilitation Hospital - DublinAspartate aminotransferase [Enzymatic activity/volume] in Serum or PlasmaOrdered By: Fernanda Concepcion on 09-11-3777YRE [Catalytic activity/Vol]20 U/S04-12LchxvpkurSelect Medical Ohiohealth Rehabilitation Hospital - DublinBasophils Auto (Bld) [#/Vol]Ordered By: Fernanda oCncepcion on 89-69-4849Muqbzpaqa (Bld) [#/Vol]0.1 10*3/uL 0.0-0.2FParkwood HospitalBasophils/100 WBC Auto (Bld)Ordered By: Fernanda Concepcion on 38-01-1655Idgajjoul/100 WBC (Bld)1.1 %.[facility] - DublinBilirubin.total [Mass/volume] in Serum or PlasmaOrdered By: Fernanda Concepcion on 67-10-0689Arwapguhd [Mass/Vol]0.5 mg/dL0.3-1.0[facility] - DublinCalcium [Mass/volume] in Serum or PlasmaOrdered By: Fernanda Concepcion on 15-62-4811Efuysuj [Mass/Vol]9.3 mg/dL8.6-10.3FParkwood HospitalCarbon dioxide, total [Moles/volume] in Serum or PlasmaOrdered By: Fernanda Concepcion on 04-13-8255TV7 [Moles/Vol]31.4 mmol/L21.0-31.0[facility] - DublinChloride [Moles/volume] in Serum or PlasmaOrdered By: Fernanda Concepcion on 40-89-2945Wnruavfy [Moles/Vol]103 mmol/K51-952SrcyoxadgSelect Medical Ohiohealth Rehabilitation Hospital - Dublin Creatinine [Mass/volume] in Serum or PlasmaOrdered By: Fernanda Concepcion on 21-71-6594Qsmodyrhze [Mass/Vol]0.70 mg/dL0.60-1.20[facility] - DublinEosinophils Auto (Bld) [#/Vol]Ordered By: Fernanda Concepcion on 05-25-2023 Eosinophils (Bld) [#/Vol]0.1 10*3/uL0.0-0.45[facility] Eosinophils/100 WBC Auto (Bld)Ordered By: Fernanda Concepcion on 05-25-2023 Eosinophils/100 WBC (Bld)0.7 %.[facility] Hospital - DublinErythrocyte distribution width Auto (RBC) [Ratio]Ordered By: Fernanda Concepcion on 05-25-2023 Erythrocyte distribution width (RBC) [Ratio]13.3 %11.9-15.3FParkwood HospitalGlobulin Calc (S) [Mass/Vol]Ordered By: Fernanda Concepcion on 05-25-2023 Globulin (S) [Mass/Vol]1.7 g/dLSelect Medical Ohiohealth Rehabilitation Hospital - DublinGlucose [Mass/volume] in Serum or PlasmaOrdered By: Fernanda Concepcion on 63-67-6475Xmdvoxq [Mass/Vol]104 mg/sT86-490KbqnwazuySelect Medical Ohiohealth Rehabilitation Hospital - DublinComment on above:ADA recommended reference rangeRandom Glucose Reference Range is dependent on time and content of last meal. Glucose of more than 200 mg/dL in a nonstressed, ambulatory subject supports the diagnosisof Diabetes Mellitus.Hematocrit Auto (Bld) [Volume fraction]Ordered By: Fernanda Concepcion on 51-19-2493Ncieruekfu (Bld) [Volume fraction]39.3 %34.0-46.4FParkwood HospitalHemoglobin [Mass/volume] in BloodOrdered By: Fernanda Concepcion on 96-25-0789Reybrmvtlv (Bld) [Mass/Vol]13.5 g/dL11.8-15.4FParkwood HospitalLeukocytes [#/volume] corrected for nucleated erythrocytes in Blood by Automated coun Ordered By: Fernanda Concepcion on 57-45-5683CWX corrected for nucl RBC Auto (Bld) [#/Vol]8.2 10*3/uL3.8-11.6FParkwood HospitalLymphocytes Auto (Bld) [#/Vol]Ordered By: Fernanda Concepcion on 82-95-8946Qlqvaepzipu (Bld) [#/Vol]1.7 10*3/uL1.00-4.8[facility] - DublinLymphocytes/100 WBC Auto (Bld) Ordered By: Fernanda Concepcion on 71-52-6531Ovhhoqlcafp/100 WBC (Bld)20.5 %.[facility] - DublinMCH Auto (RBC) [Entitic mass]Ordered By: Fernanda Concepcion on 24-45-4892VRQ (RBC) [Entitic mass]35.3 pg24.7-34.3FParkwood HospitalMCHC Auto (RBC) [Mass/Vol]Ordered By: Fernanda Concepcion on 34-13-7147BFPP (RBC) [Mass/Vol]34.4 g/dL32.0-35.0[facility] - DublinMCV Auto (RBC) [Entitic vol]Ordered By: Fernanda Concepcion on 49-96-3596ABR (RBC) [Entitic vol]102.7 cG60-208ElnbzftzgSelect Medical Ohiohealth Rehabilitation Hospital - DublinMonocytes Auto (Bld) [#/Vol]Ordered By: Fernanda Concepcion on 58-62-3874Bcksygles (Bld) [#/Vol]0.4 10*3/uL0.0-0.8[facility] - DublinMonocytes/100 WBC Auto (Bld)Ordered By: Fernanda Concepcion on 93-32-4943Uchvqcial/100 WBC (Bld)4.8 %.[facility] Neutrophils Auto (Bld) [#/Vol]Ordered By: Fernanda Concepcion on 33-31-2848Sirzitbjpgs (Bld) [#/Vol]6.0 10*3/uL1.8-7.7FParkwood HospitalNeutrophils/100 WBC Auto (Bld)Ordered By: Fernanda Concepcion on 75-50-5088Jowlpiknegp/100 WBC (Bld) 72.9 %.[facility] - DublinNo Panel InformationOrdered By: Fernanda Concepcion on 54-87-4729Rqdywktho GFR (CKD-EPI)> 60.0 mL/MinSelect Medical Ohiohealth Rehabilitation Hospital - DublinPharmacy Creatinine Clearance (ChemN/[facility]arrison Community HospitalNucleated erythrocytes [Presence] in Blood by Automated countOrdered By: Fernanda Concepcion on 26-46-5972Tosxiumbo RBC Auto Ql (Bld)0.0 /100{WBC}0-0.5FParkwood HospitalPlatelet mean volume Auto (Bld) [Entitic vol]Ordered By: Fernanda Concepcion on 63-12-3831Xunxpafg mean volume (Bld) [Entitic vol]7.8 fL6.3-10.7 [facility] - DublinPlatelets Auto (Bld) [#/Vol]Ordered By: Fernanda Concepcion on 31-77-8110Fqbqlrmeq (Bld) [#/Vol]244 10*3/iL626-745QcnchtxyeSelect Medical Ohiohealth Rehabilitation Hospital - DublinPotassium [Moles/volume] in Serum or PlasmaOrdered By: Fernanda Concepcion on 06-08-9364Ovpedwlgm [Moles/Vol]3.6 mmol/L3.5-5.1FParkwood HospitalProtein [Mass/volume] in Serum or PlasmaOrdered By: Fernanda Concepcion on 75-71-4375Lebsfca [Mass/Vol]6.4 g/dL6.4-8.9[facility] RBC Auto (Bld) [#/Vol]Ordered By: Fernanda Concepcion on 82-74-0912RUY (Bld) [#/Vol] 3.83 10*6/uL3.60-5.00Corey Hospitalerum or plasma albumin/globulin mass ratioOrdered By: Fernanda Concepcion on 05-25-2023 Albumin/Globulin [Mass ratio]2.8 {ratio}Corey Hospitalerum or plasma anion gap determinationOrdered By: Fernanda Concepcion on 58-87-1126Nagfi gap [Moles/Vol]8.2 mmol/L6.0-15.0Corey Hospitalodium [Moles/volume] in Serum or PlasmaOrdered By: Fernanda Concepcion on 88-74-4433Jgodbo [Moles/Vol]139 mmol/N414-861GdqsebcqqSelect Medical Ohiohealth Rehabilitation Hospital - DublinThyrotropin [Units/volume] in Serum or PlasmaOrdered By: Fernanda Concepcion on 99-81-0511YBS Qn 0.35 m[IU]/L0.45-5.33[facility] - DublinUrea nitrogen [Mass/volume] in Serum or PlasmaOrdered By: Fernanda Concepcion on 98-72-6067Gjcp nitrogen [Mass/Vol]10 mg/dL7-25[facility] - DublinWBC Auto (Bld) [#/Vol]Ordered By: Fernanda Concepcion on 59-72-5937DUZ (Bld) [#/Vol]8.2 10*3/uL 3.8-11.6FParkwood HospitalAmbulatory Visit Summaryon 05-16-2023 Ambulatory Visit Summary KATY BANUELOS :1975 Visit Date:05/16/2023 Ambulatory Visit Instructions Your Diagnosis Mixed incontinence Smoker Tests Performed Urnls Dip Stick Auto w/o Microscopy POC 87704 Your Care Team Attending Physician - GIANNA [...] GIANNA KAPLAN PA-C Where: [facility] Interpretation [id number] [place] [address]- \.br\ Sunday 9:30 AM EDT \.br\ With: GIANNA KAPLAN PA-C\.br\ Where[facility] HospitalPatient Educationon 66-85-0707Ziycmiu EducationObstetrics and Gynecology Kegel Exercises Kegel exercises [...] provider. Document Revised: 01/12/2022 Document Reviewed: 01/12/2022 [employer] Patient Education ? 2022 [employer] Pulmonary Medicine Steps to Quit Smoking [...] regularly. Even short sessi (more content not included)...[facility] Urology Office/Clinic Noteon 98-22-0965Rvpvtwj Office/Clinic NoteChief Complaint #3 PFPT HPI Staff [...] it about 5-7 seconds. When I would nutritional health coach her to not use the lower abs, she was unable to contract only the pelvic floor. Says it hurts when she does that. Ordered: 17261 EMG anal/urethral sphincter no needle 43426 Biofeedback training, perineal muscles, anorectal 73116 Anorectal Manometry 75136 ELECTRICAL STIMULATION 78197 Urnls Dip Stick Auto w/o Microscopy POC 12410 2. Pelvic pain (R10.2: Pelvic and perineal pain) Pt requested rx for Ibuprofen 800mg as she has been taking 4 ibuprofen 200mg's at a time to help w pelvic pain. [facility]. Discussed the medication side [...] milk, # 30 tab(s), Refills(s) 3, Pharmacy: [facility]/pharmacy #[id number], 168, cm, 05/16/23 9:58:00 EDT, Height/Length Dosing, 52, kg, 05/16/23 9:58:00 EDT, Weight Dosing I am at a bit of a loss with this pt. She isn't making progress despite several PFPT appts and several weeks of attempting the exercises at home. Matters are complicated by longstanding constipation and pelvic pain. I am going to reach out to [facility] PFPT and see if they would feel comfortable seeing this pt/have other approach. Will stop the Detrol for now so we have more of a 'clean slate'. Hoping if we can get the constipation under control and the pelvic floor strengthened then the pain and urinary sx will improve. F/u pending discussion w [facility]. Follow-up With When Contact Information EJ ELLIS, GIANNA Jimenez, URL [address] [place] [place] [address] [phone] Patient Education Steps to Quit Smoking Kegel Exercises Documentation recorded by the scribbarbara Lara accurately [...] emptying Urinary retention P (more content not included)...[facility] HospitalComment on above:Result Comment: Electronically Signed By: GIANNA KAPLAN PA-C\.br\Date and Time Signed: 05/16/2311:34 EDT\.br\Electronically Co-Signed By: Shy Lara\.br\Date and Time Co-Signed: 05/16/23 10:27 EDTPatient Educationon 05-09-2023 Patient EducationMercy Health Defiance HospitalEMG Electromyographyon 93-42-9143VXJ Electromyography [id number]#1.00CD:127[facility] HospitalAmbulatory Visit Summaryon 80-01-2342Xlzwvhgsuv Visit Summary KATY BANUEOLS :1975 Visit Date:05/02/2023 Ambulatory Visit Instructions Your Diagnosis Mixed incontinence Smoker Tests Performed Urnls Dip Stick Auto w/o Microscopy POC 58290 Your Care Team Attending Physician - GIANNA [...] With: GIANNA KAPLAN PA-C Where: [facility] Interpretation [id number] [place] [address]- [phone]\.br\ Sunday 9:30 AM EDT \.br\ With: GIANNA KAPLAN PA-C\.br\ Where: [facility] HospitalPatient Educationon 45-70-8334Farkera EducationObstetrics and Gynecology Kegel Exercises Kegel exercises [...] provider. Document Revised: 01/12/2022 Document Reviewed: 01/12/2022 [employer] Patient Education ? 2022 [employer]. Urology Urinary Incontinence Urinary incontinence refers to [...] your kidney and bladder (more content not included)...NormalCleveland Clinic FoundationUrology Office/Clinic Noteon 85-99-9227Whuynqx Office/Clinic NoteChief Complaint #2 PFPT HPI Staff [...] Contact Information EJ ELLIS, GIANNA Jimenez, URL [address] [place] [address] [phone] Additional Instructions: PFPT #3 on 05/09/23 Patient [...] Dipstick: Negative (05/02/23 10:46:00) (more content not included)...[facility] HospitalComment on above:Result Comment: Electronically Signed By: GIANNA KAPLAN PA-C\.br\Date and Time Signed: 05/02/2311:20 EDT\.br\Electronically Co-Signed By: Shy Lara\.br\Date and Time Co-Signed: 05/02/23 11:10 EDTConsent for Procedure/Surgeryon 04-26-2023 Consent for Procedure/[id number]#1.00CD:127 [facility] HospitalEMG Electromyographyon 28-91-3502ZQL [id number]#1.00CD:127NormFirelands Regional Medical Center South CampusAmbulatory Visit Summaryon 00-97-9162Bsfcnnfvla Visit Summary KATY BANUELOS :1975 Visit Date:04/25/2023 Ambulatory Visit Instructions Your Diagnosis Mixed incontinence Smoker Tests Performed Urnls Dip Stick Auto w/o Microscopy POC 58324 Your Care Team Attending Physician - GIANNA [...] GIANNA KAPLAN PA-C [facility] Interpretation [id number] [place] [address] [phone]\.br\ Sunday 9:30 AM EDT \.br\ With: GIANNA KAPLAN PA-C\.br\ Where: [facility] Educationon 37-80-2895Umpkvbn EducationUrology Pelvic Floor Dysfunction, Female Pelvic floor [...] pelvic muscle tension or spasms. ? Take zvww-qwv-xftjzwp and prescription medicines only as told by [...] in 3 days (constipa (more content not included)...[facility] HospitalUrology Office/Clinic Noteon 86-10-5026Lpctunw Office/Clinic NoteChief Complaint #1 PFPT HPI Staff [...] Contact Information EJ ELLIS, GIANNA Jimenez, URL [address] [place] [address] [phone] Additional Instructions: PFPT #2 on 05/02/23 Patient Education Pelvic Floor Dysfunction, Female Documentation recorded by the scrkiersten Lara accurately reflects the services(s) I performed [...] (04/25/23 09:53:00) Specific Grav (more content not included)...[facility] Comment on above:Result Comment: Electronically Signed By: GIANNA KAPLAN PA-C\.br\Date and Time Signed: 04/25/2310:25 EDT\.br\Electronically Co-Signed By: Shy Lara\Date and Time Co-Signed: 04/25/23 10:22 EDTVIT D 1 25 DIHYDROXYon 69-15-9085Xakzkzsjyb(1,25 di-[place] Vit D)55.9 pg/dCLmswpx70.8-81.5The [facility] HospitalComment on above:Performed By: #### [id number] #### [facility] [address] [place] [address] Dr. Barbra Vallejo 49-92-6477TKY4.7 mIU/mLNormalThe St. Vincent HospitalComment on above:Result Comment: Adult Female: Follicular phase 3.5 - 12.5 Ovulation phase 4.7 - 21.5 Luteal phase 1.7 - 7.7 Postmenopausal 25.8 - 134.8Performed By: #### LBCFSH #### [facility] [address] [place] [address] Dr. Barbra AlbrechtLUTEINIZING HORMONE (LH)on 75-47-4968SG9.6 mIU/mLNormalThe St. Vincent HospitalComment on above:Result Comment: Adult Female: Follicular phase 2.4 - 12.6 Ovulation phase 14.0 - 95.6 Luteal phase 1.0 - 11.4 Postmenopausal 7.7 - 58.5Performed By: #### FERR, FETIBC, VITB12 #### [facility] [address] [place] [address] Dr. Barbra Kan AUTO DIFFon 37-26-3121PYJJ #0.1 103/ulNormal0.0-0.1The St. Vincent HospitalComment on above:Performed By: #### FERR, FETIBC, VITB12 #### [facility] [address] [place] [address] Dr. Barbra AlbrechtBasophils/100 WBC (Bld)0.5 %Normal0.2-2.0The [facility] Comment on above:Performed By: #### FERR, FETIBC, VITB12 #### [facility] [address] [place] [address] Dr. Barbra Zeng #0.0 103/ulNormal0.0-0.7The [facility] HospitalComment on above: Performed By: #### FERR, FETIBC, VITB12 #### [facility] [address] [place] [address] Dr. Barbra Thomasosinophils/100 WBC (Bld)0.4 %Critically low0.9-7.0The [facility] Hospitalment on above:Performed By: #### FERR, FETIBC, VITB12 #### [facility] [address] [place] [address] Dr. Barbra Thomasrythrocyte distribution width (RBC) [Ratio]12.2 %Kgvpzr30.0-15.[address] [facility] HospitalComment on above:Performed By: #### FERR, FETIBC, VITB12 #### [facility] [address] [place] [address] Dr. Barbra AlbrechtHematocrit (Bld) [Volume fraction]39.2 %Dpqibr46.0-48.0The [facility] HospitalComment on above:Performed By: #### FERR, FETIBC, VITB12 #### [facility] [address] [place] [address] Dr. Barbra AlbrechtHemoglobin (Bld) [Mass/Vol]13.5 g/gLGfjery78.0-16.0The [facility] Hospitalment on above:Performed By: #### FERR, FETIBC, VITB12 #### [facility] [address] [place] [address] Dr. Barbra Hutchinson #0.05 10e3/ulCritically high0.00-0.03The [facility] Comment on above:Performed By: #### FERR, FETIBC, VITB12 #### [facility] [address] [place] [address] Dr. Barbra Hutchinson %0.5 %Normal0.0-0.5The [facility] Hospitalment on above: Performed By: #### FERR, FETIBC, VITB12 #### [facility] [address] [place] [address] Dr. Barbra Wade #1.4 103/ulNormal1.2-3.8The [facility] HospitalComment on above:Performed By: #### FERR, FETIBC, VITB12 #### [facility] [address] [place] [address] Dr. Barbra Lopezmphocytes/100 WBC (Bld)15.1 %Critically low20.5-60.0The [facility] HospitalComment on above:Performed By: #### FERR, FETIBC, VITB12 #### [facility] [address] [place] [address] Dr. Barbra Guerrero DIFF REQNONormalThe St. Vincent HospitalComment on above: Performed By: #### FERR, FETIBC, VITB12 #### [facility] [address] [place] [address] Dr. Barbra Dietrich (RBC) [Entitic mass]34.5 pgCritically high26.7-34.0The [facility] HospitalComment on above:Performed By: #### FERR, FETIBC, VITB12 #### [facility] [address] [place] [address] Dr. Barbra Dietrich (RBC) [Mass/Vol]34.4 g/oHAblvib63.9-35.2The [facility] HospitalComment on above:Performed By: #### FERR, FETIBC, VITB12 #### [facility] [address] [place] [address] Dr. Barbra Dietrich (RBC) [Entitic vol]100.3 fLCritically high81.0-99.0The [facility] HospitalComment on above:Performed By: #### FERR, FETIBC, VITB12 #### [facility] [address] [place] [address] Dr. Barbra Rose #0.4 103/ulNormal0.3-0.8The [facility] HospitalComment on above:Performed By: #### FERR, FETIBC, VITB12 #### [facility] [address] [place] [address] Dr. Barbra Landrumocytes/100 WBC (Bld)4.7 %Normal1.7-12.0[facility] Comment on above:Performed By: #### FERR, FETIBC, VITB12 #### [facility] [address] [place] [address] Dr. Barbra Barr #7.4 103/ulCritically high1.4-6.5The [facility] Comment on above:Performed By: #### FERR, FETIBC, VITB12 #### [facility] [address] [place] [address] Dr. Barbra Murphyutrophils/100 WBC (Bld)78.8 %Critically high43.0-75.0The [facility] HospitalComment on above:Performed By: #### FERR, FETIBC, VITB12 #### [facility] [address] [place] [address] Dr. Barbra Martinezlet mean volume (Bld) [Entitic vol]9.1 fLCritically low 9.5-13.5The [facility] HospitalComment on above:Performed By: #### FERR, FETIBC, VITB12 #### [facility] [address] [place] [address] Dr. Barbra AlbrechtPLT256 103/dhVlhwzm771-201Zmf St. [facility] HospitalComment on above: Performed By: #### FERR, FETIBC, VITB12 #### [facility] [address] [place] [address] Dr. Barbra AlbrechtRBC3.91 106/ulCritically low4.20-5.40The [facility] HospitalComment on above:Performed By: #### FERR, FETIBC, VITB12 #### [facility] [address] [place] [address] Dr. Barbra AlbrechtWBC9.4 103/ulNormal4.0-11.0The [facility] HospitalComment on above: Performed By: #### FERR, FETIBC, VITB12 #### [facility] [address] [place] [address] Dr. Barbra AlbrechtFERRITINon 78-90-0651Keugrjih [Mass/Vol]58.0 ng/mLNormal6.2-137.[address] [facility] HospitalComment on above:Performed By: #### FERR, FETIBC, VITB12 #### [facility] [address] [place] [address] Dr. Barbra Osorio AND TIBCon 12-21-2022% QHGTVAJYZW76.5 %NormalThe St. Vincent HospitalComment on above:Performed By: #### FERR, FETIBC, VITB12 #### [facility] [address] [place] [address] Dr. Barbra Osorio [Mass/Vol]134.0 ug/jSLgfqqt19.0-170.0[facility] Comment on above:Performed By: #### FERR, FETIBC, VITB12 #### [facility] [address] [place] [address] Dr. Barbra AlbrechtTIBC WAMRNT198.0 ug/aHJrwefw085.0-450.0[facility] Comment on above:Performed By: #### FERR, FETIBC, VITB12 #### [facility] [address] [place] [address] Dr. Barbra AlbrechtVITAMIN B12on 13-37-5183Nwjwzzmse (Vitamin B12) [Mass/Vol]799.0 pg/pWDlupce285.0-986.0The [facility] HospitalComment on above:Performed By: #### FERR, FETIBC, VITB12 #### [facility] [address] [place] [address] Dr. Barbra AlbrechtXR FOOT LEANDRO MIN 3 VIEWSon 94-76-1509IL FOOT LEANDRO MIN 3 VIEWS EXAMINATION: XR [...] Electronically authenticated by: VIKRAM OSUNA Date: 2022-12-14 15:38[facility] CenterXR ANKLE RT MIN 3 VIEWSon 79-51-5195HZ ANKLE RT MIN 3 VIEWS EXAM: XR [...] Electronically authenticated by: GIGI WOODS Date: 2022-11-06 13:26[facility] CenterXR FOOT RT MIN 3 VIEWSon 89-23-8455CV FOOT RT MIN 3 VIEWSEXAM: XR FOOT [...] Electronically authenticated by: BOLA MARROQUIN Date: 2022-11-06 12:20[facility] CenterCPKon 17-89-4748KD [Catalytic activity/Vol]143 U/PDupgdx92-[address] [facility] HospitalComment on above:Performed By: #### FERR, FETIBC, VITB12 #### [facility] [address] [place] [address] Dr. Barbra Christensen RATE WESTERGRENon 88-43-8882VCM RATE<1Normal<=20The [facility] HospitalComment on above:Performed By: #### FERR, FETIBC, VITB12 #### [facility] [address] [address] [address] Barbra Artis 24-12-3189FAT2.719 uIU/mLNormal0.358-3.740The [facility] HospitalComkresge eye institute on above:Performed By: #### FERR, FETIBC, VITB12 #### [facility] [address] [place] [address] Dr. Barbra Chow B12 AND FOLATEon 47-76-8550Rxywfhwad (Vitamin B12) [Mass/Vol] 1283.0 pg/mLCritically hvjv038.0-986.0The [facility] HospitalComment on above: Performed By: #### B12FOL #### [facility] [address] [place], [place] [address] Dr. Barbra AlbrechtFOLATE26.80 ng/mLNormal8.60-58.90The [facility] HospitalComment on above:Performed By: #### B12FOL #### [facility] [address] [place], [place] [address] Dr. Barbra AlbrechtXR CHEST 2 Von 04-84-5980GF CHEST 2 VEXAM: XR CHEST 2 V [...] Electronically authenticated by: GIGI SARMIENTO Date: 2022-09-28 14:48[facility] CenterBasophils Auto (Bld) [#/Vol]Ordered By: Kye Apodaca on 57-41-2003Ifyewccdr (Bld) [#/Vol]0.1 10*3/uL0.0-0.2FParkwood HospitalBasophils/100 WBC Auto (Bld)Ordered By: Kye Apodaca on 09-13-2022 Basophils/100 WBC (Bld)0.9 %.[facility] - DublinCT biopsyOrdered By: Kye Apodaca on 34-82-3422Dectwlmtzgs [Mass/Vol]209 mg/yW588-044VauxkwgyqSelect Medical [facility] Rehabilitation Hospital - DublinEosinophils Auto (Bld) [#/Vol]Ordered By: Kye Apodaca on 86-20-0522Mkxacqhfizt (Bld) [#/Vol]0.0 10*3/uL0.0-0.45[facility] - DublinEosinophils/100 WBC Auto (Bld)Ordered By: Kye Apodaca on 09-13-2022 Eosinophils/100 WBC (Bld)0.5 %.[facility] - DublinErythrocyte distribution width Auto (RBC) [Ratio]Ordered By: Kye Apodaca on 09-13-2022 Erythrocyte distribution width (RBC) [Ratio]14.8 %11.9-15.3FParkwood HospitalFerritin [Mass/volume] in Serum or PlasmaOrdered By: Kye Apodaca on 33-81-7699Qdxyfmpm [Mass/Vol]62.9 ng/xU10-088.8[facility] - DublinHematocrit Auto (Bld) [Volume fraction]Ordered By: Kye Apodaca on 56-22-1315Usyersipof (Bld) [Volume fraction]38.9 %34.0-46.4FParkwood HospitalHemoglobin [Mass/volume] in BloodOrdered By: Kye Apodaca on 05-94-2996Vtttkvyrlp (Bld) [Mass/Vol]13.4 g/dL11.8-15.4FParkwood HospitalIron [Mass/volume] in Serum or PlasmaOrdered By: Kye Apodaca on 40-23-3331Aqir [Mass/Vol]70 ug/aE86-332HphjiqlyySelect Medical [facility] Rehabilitation Hospital - DublinIron binding capacity [Mass/volume] in Serum or PlasmaOrdered By: Kye Apodaca on 13-30-3001Cfin binding capacity [Mass/Vol]293 ug/yF248-594LtkdqhsklSelect Medical [facility] Rehabilitation Hospital - DublinIron saturation [Mass Fraction] in Serum or PlasmaOrdered By: Kye Apodaca on 05-73-1982Fbhi saturation [Mass fraction]23.0 %20-50[facility] - DublinLeukocytes [#/volume] corrected for nucleated erythrocytes in Blood by Automated counOrdered By: Kye Apodaca on 81-05-9771GSJ corrected for nucl RBC Auto (Bld) [#/Vol]8.6 10*3/uL3.8-11.6FParkwood HospitalLymphocytes Auto (Bld) [#/Vol]Ordered By: Kye Apodaca on 27-68-4547Lbjgoxxigna (Bld) [#/Vol]1.4 10*3/uL1.00-4.8[facility] - DublinLymphocytes/100 WBC Auto (Bld)Ordered By: Kye Apodaca on 09-13-2022 Lymphocytes/100 WBC (Bld)16.3 %.[facility] - DublinMCH Auto (RBC) [Entitic mass]Ordered By: Kye Apodaca on 41-89-6599BHA (RBC) [Entitic mass]34.1 pg24.7-34.3FParkwood HospitalMCHC Auto (RBC) [Mass/Vol]Ordered By: Kye Apodaca on 12-24-9261ZGMX (RBC) [Mass/Vol]34.5 g/dL32.0-35.0[facility] - DublinMCV Auto (RBC) [Entitic vol]Ordered By: Kye Apodaca on 21-60-2042MHX (RBC) [Entitic vol]98.9 xF12-465PksxcpuetSelect Medical [facility] Hospital - Dublin Monocytes Auto (Bld) [#/Vol]Ordered By: Kye Apodaca on 81-01-8259Pqgxzhwrn (Bld) [#/Vol]0.4 10*3/uL0.0-0.8[facility] - DublinMonocytes/100 WBC Auto (Bld)Ordered By: Kye Apodaca on 13-14-2349Kqeugrntk/100 WBC (Bld)5.0 %. [facility] - DublinNeutrophils Auto (Bld) [#/Vol]Ordered By: Kye Apodaca on 09-16-8477Lrhtqxhfhuy (Bld) [#/Vol]6.6 10*3/uL1.8-7.7FParkwood HospitalNeutrophils/100 WBC Auto (Bld)Ordered By: Kye Apodaca on 72-27-5996Bydrbbmbamv/100 WBC (Bld)77.3 %.[facility] Nucleated erythrocytes [Presence] in Blood by Automated countOrdered By: Kye Apodaca on 35-89-8815Wdnvrjpoj RBC Auto Ql (Bld)0.1 /100{WBC}0-0.5FParkwood HospitalPlatelet mean volume Auto (Bld) [Entitic vol]Ordered By: Kye Apodaca on 29-29-1559Ypmkzhig mean volume (Bld) [Entitic vol]7.8 fL6.3-10.7 [facility] - DublinPlatelets Auto (Bld) [#/Vol]Ordered By: Kye Sequeiraharvey on 64-42-3021Dtfagbvda (Bld) [#/Vol]309 10*3/aX408-886UypeuliydSelect Medical [facility] Rehabilitation Hospital - DublinRBC Auto (Bld) [#/Vol]Ordered By: Kye Apodaca on 60-36-4267MAI (Bld) [#/Vol]3.93 10*6/uL3.60-5.00[facility] - DublinWBC Auto (Bld) [#/Vol]Ordered By: Kye Sequeiraharvey on 53-00-1880GZF (Bld) [#/Vol]8.6 10*3/uL 3.8-11.6FParkwood HospitalCovid-19 PCR (CVDTB)on 07-27-2022 SARS-CoV-2 (COVID-19) RNA CATRACHITO+probe Ql (Unsp spec)Not detectedNormalNOT DETECTED The [facility] HospitalComment on above:Result Comment: This test is not yet approved or cleared by the [place] FDA. When there are no FDA-approved or cleared tests available, and other criteria are met, FDA can make tests available under an emergency access mechanism called an Emergency Use Authorization (EUA). The EUA for this test is supported by the [place] of Health and Human Service's (HHS's) declaration [...] consistent with SARS-CoV-2.Performed By: #### CVDTBH #### [facility] [address] [place] [address] Dr. Barbra WEAVER AGon 76-28-9578NIHNZEJOKPRTXMary Rutan Hospital on above:Result Comment: Negative for Flu A protein angiten. Infection due to Flu A cannot be ruled out. FluA angiten in the sample may be below the detection limit of the test.Performed By: #### FERR, FETIBC, VITB12 #### [facility] [address] [place] [address] Dr. Barbra LanzaHSZanesville City HospitalComment on above: Result Comment: Negative for Flu B protein antigen. Infection due to Flu B cannot be ruled out. FluB antigen in the sample may be below the detection limit of the test.Performed By: #### FERR, FETIBC, VITB12 #### [facility] [address] [place] [address] Dr. Barbra Wilson AGNegativeNormalNEGATIVE SEE COMMENTThe St. Vincent HospitalComment on above:Performed By: #### FERR, FETIBC, VITB12 #### [facility] [address] [place] [address] Dr. Barbra Ambrose AGNegativeNormalNEGATIVE SEE COMMENTThe St. Vincent HospitalComment on above:Performed By: #### FERR, FETIBC, VITB12 #### [facility] [address] [place] [address] Dr. Barbra AlbrechtINTERNAL CONTROLSWithin Normal LimitsNormalWithin Normal Limits The [facility] HospitalComment on above:Performed By: #### FERR, FETIBC, VITB12 #### [facility] [address] [place] [address] Dr. Barbra AlbrechtIgKatie [Mass/volume] in Serum or PlasmaOrdered By: Kye Apodaca on 97-82-1587UuH [Mass/Vol]127 mg/aU53-091HzlzvazoaSelect Medical [facility] Rehabilitation Hospital - DublinComment on above:Performed at: [facility] [address] [id number] Director: Andres Arboleda PhD, Phone: [phone] Panel InformationOrdered By: Kye Apodaca on 28-89-5382Aigtcxagwp IgA AntibodyNegative NegativeCorey Hospitalerum gliadin peptide IgA antibody assay (units/volume)Ordered By: Kye Apodaca on 24-88-1089Nggqpet peptide IgA Qn (S)5 units0-19[facility] - DublinComment on above:Negative 0 - 19 Weak Positive 20 - 30 Moderate to Strong Positive >30Serum gliadin peptide IgG antibody assay (units/volume)Ordered By: Kye Apodaca on 41-10-9893Lbpdrbj peptide IgG Qn (S)3 units0-19[facility] - DublinComment on above: Negative 0 - 19 Weak Positive 20 - 30 Moderate to Strong Positive >30Serum tissue transglutaminase (tTG) IgA antibody assay (units/volume)Ordered By: Kye Apodaca on 15-59-0564cKQ IgA Qn (S)<2 U/mL0-3FParkwood Hospital Comment on above:Negative 0 - 3 Weak Positive 4 - 10 Positive >10 Tissue Transglutaminase (tTG) has been identified as the endomysial antigen. Studies have demonstr- ated that endomysial IgA antibodies have over 99% specificity for gluten sensitive enteropathy.Serum tissue transglutaminase (tTG) IgG antibody assay (units/volume)Ordered By: Kye Apodaca on 89-69-8708hZD IgG Qn (S)<2 U/mL 0-5FParkwood HospitalComment on above:Negative 0 - 5 Weak Positive 6 - 9 Positive >9XR Chest 2 Views*on 32-67-2504WH Chest 2 Views* CLINICAL HISTORY: Cough, phlegm COMPARISON: FINDINGS: The cardiomediastinal silhouette is unremarkable. The lungs are free of infiltrates effusions or consolidations. The bones and soft tissues are within normal limits. IMPRESSION: There are no acute cardiopulmonary changes Report reported and signed by ADAM ALCANTARA on 06/13/2022 1556NormalNorthern Texas Medical SpecialistCBC AUTO DIFFon 69-40-7760IBUF #0.1 103/ulNormal0.0-0.[address] [facility] HospitalComment on above:Performed By: #### CBC #### [facility] [address] [address] [address] Barbra AlbrechtBasophils/100 WBC (Bld)0.6 %Normal0.2-2.0[facility] Comment on above:Performed By: #### CBC #### [facility] [address] [place] [address] Dr. Barbra Zeng #0.1 103/ulNormal0.0-0.7The [facility] HospitalComment on above: Performed By: #### CBC #### [facility] [address] [place] [address] Dr. Barbra Thomasosinophils/100 WBC (Bld)1.1 %Normal0.9-7.0[facility] Comment on above:Performed By: #### CBC #### [facility] [address] [place] [address] Dr. Barbra Thomasrythrocyte distribution width (RBC) [Ratio]12.5 %Pldrew22.0-15.[address] [facility] HospitalComment on above:Performed By: #### CBC #### [facility] [address] [place] [address] Dr. Barbra AlbrechtHematocrit (Bld) [Volume fraction]36.3 %Qmtodq98.0-48.0[facility] CenterComment on above:Performed By: #### CBC #### [facility] [address] [place] [address] Dr. Barbra AlbrechtHemoglobin (Bld) [Mass/Vol]11.9 g/dLCritically low12.0-16.0The [facility] HospitalComment on above:Performed By: #### CBC #### [facility] [address] [place] [address] Dr. Barbra Hutchinson #0.04 10e3/ulCritically high0.00-0.03The [facility] Comment on above:Performed By: #### CBC #### [facility] [address] [place] [address] Dr. Barbra Hutchinson %0.4 %Normal0.0-0.5The [facility] HospitalComment on above: Performed By: #### CBC #### [facility] [address] [place] [address] Dr. Barbra Wade #1.8 103/ulNormal1.2-3.8The [facility] HospitalComment on above:Performed By: #### CBC #### [facility] [address] [place] [address] Dr. Barbra Lopezmphocytes/100 WBC (Bld)17.5 %Critically low20.5-60.0The [facility] HospitalComment on above:Performed By: #### CBC #### [facility] [address] [place] [address] Dr. Barbra Guerrero DIFF REQNONormalThe St. Vincent HospitalComment on above: Performed By: #### CBC #### [facility] [address] [place] [address] Dr. Barbra Dietrich (RBC) [Entitic mass]33.6 jxDjngnl62.7-34.0The [facility] HospitalComment on above:Performed By: #### CBC #### [facility] [address] [place] [address] Dr. Barbra Dietrich (RBC) [Mass/Vol]32.8 g/aIXvmjyo42.9-35.2The [facility] HospitalComment on above:Performed By: #### CBC #### [facility] [address] [place] [address] Dr. Barbra Chisholm (RBC) [Entitic vol]102.5 fLCritically high81.0-99.0The [facility] HospitalComment on above:Performed By: #### CBC #### [facility] [address] [place] [address] Dr. Barbra Rose #0.6 103/ulNormal0.3-0.8The [facility] HospitalComment on above:Performed By: #### CBC #### [facility] [address] [place] [address] Dr. Barbra Landrumocytes/100 WBC (Bld)6.0 %Normal1.7-12.0The [facility] Comment on above:Performed By: #### CBC #### [facility] [address] [place] [address] Dr. Yilan ChangNEUT #7.5 103/ulCritically high1.4-6.5The [facility] Comment on above:Performed By: #### CBC #### [facility] [address] [place] [address] Dr. Barbra Murphyutrophils/100 WBC (Bld)74.4 %Ekluqs41.0-75.0The [facility] HospitalComment on above:Performed By: #### CBC #### [facility] [address] [place] [address] Dr. Barbra AlbrechtPlatelet mean volume (Bld) [Entitic vol]9.3 fLCritically low 9.5-13.5The [facility] HospitalComment on above:Performed By: #### CBC #### [facility] [address] [place] [address] Dr. Barbra AlbrechtPLT283 103/emXpsujc705-663Mro St. [facility] HospitalComment on above: Performed By: #### CBC #### [facility] [address] [place] [address] Dr. Barbra AlbrechtRBC3.54 106/ulCritically low4.20-5.40The [facility] HospitalComment on above:Performed By: #### CBC #### [facility] [address] [place] [address] Dr. Barbra AlbrechtWBC10.0 103/ulNormal4.0-11.0The [facility] HospitalComment on above:Performed By: #### CBC #### [facility] [address] [place] [address] Dr. Barbra AlbrechtLIPASEon [id number] [Catalytic activity/Vol]114.0 U/LNormal 73.0-393.0The [facility] HospitalComment on above:Performed By: #### CMP, LIPA, LIPID #### [facility] [address] [place] [address] Dr. Barbra AlbrechtLIPID PROFILEon [id number]-HDL RATIO NORMSEE [facility] CenterComment on above:Result Comment: 3.3 - 4.4 LOW RISK 4.4 - 7.1 AVERAGE RISK 7.1 - 11.0 MODERATE RISK >11.0 HIGH RISKPerformed By: #### CMP, LIPA, LIPID #### [facility] [address] [place] [address] Dr. Barbra AlbrechtCholesterol [Mass/Vol]210 mg/dLCritically high<=200[facility] on above:Performed By: #### CMP, LIPA, LIPID #### [facility] [address] [place] [address] Dr. Barbra AlbrechtCholesterol in HDL [Mass/Vol]68 mg/dLCritically gfva09-48Yxh St. [facility] HospitalComment on above:Performed By: #### CMP, LIPA, LIPID #### [facility] [address] [place] [address] Dr. Barbra AlbrechtCholesterol in LDL [Mass/Vol]132.0 mg/dLLakeHealth Beachwood Medical CenterComkresge eye institute on above:Performed By: #### CMP, LIPA, LIPID #### [facility] [address] [place] [address] Dr. Barbra Mirandaesterdelfin.total/Cholesterol in HDL [Mass ratio]3.1 {ratio} NormalThe St. [facility] HospitalComkresge eye institute on above:Performed By: #### CMP, LIPA, LIPID #### [facility] [address] [place] [address] Dr. Barbra Reich NORMAL> or = 60 mg/dl - LOW CARDIOVASCULAR RISK <40 mg/dl - HIGH CARDIOVASCULAR RISKLakeHealth Beachwood Medical CenterComkresge eye institute on above:Performed By: #### CMP, LIPA, LIPID #### [facility] [address] [place] [address] Dr. Barbra AlbrechtLDL CALC NORMALSEE BELOWLakeHealth Beachwood Medical CenterComment on above:Result Comment: <100 mg/dl OPTIMAL 100 - 129 mg/dl NEAR OR ABOVE OPTIMAL 130 - 159 mg/dl BORDERLINE HIGH 160 - 189 mg/dl HIGH >190 mg/dl VERY HIGH Performed By: #### CMP, LIPA, LIPID #### [facility] [address] [place] [address] Dr. Barbra AlbrechtTriglyceride [Mass/Vol]50 mg/dLNormal<=150[facility] Comment on above:Performed By: #### CMP, LIPA, LIPID #### [facility] [address] [place] [address] Dr. Barbra AlbrechtVLDL CALC10.0 mg/dLNormalThe St. [facility] HospitalComment on above: Performed By: #### CMP, LIPA, LIPID #### [facility] [address] [place] [address] Dr. Barbra AlbrechtPROF 14(COMP METB)on [id number] [Mass/Vol]3.9 g/dLNormal 3.4-5.0The [facility] HospitalComment on above:Performed By: #### FERR, FETIBC, VITB12 #### [facility] [address] [place] [address] Dr. Barbra AlbrechtAlbumin/Globulin [Mass ratio]1.3 {ratio}NormalThe St. Vincent HospitalComment on above:Performed By: #### FERR, FETIBC, VITB12 #### [facility] [address] [place] [address] Dr. Barbra LoredoP [Catalytic activity/Vol]57 U/YDzcydc38-984Kxu [facility] Hospitalment on above:Performed By: #### FERR, FETIBC, VITB12 #### [facility] [address] [place] [address] Dr. Barbra Koenig [Catalytic activity/Vol]21 U/TExkhzu54-25Pis St[facility] HospitalComment on above:Performed By: #### FERR, FETIBC, VITB12 #### [facility] [address] [place] [address] Dr. Barbra Cintron gap [Moles/Vol]12.1 mmol/LNormalThe [facility] Comment on above:Performed By: #### FERR, FETIBC, VITB12 #### [facility] [address] [place] [address] Dr. Barbra AlbrechtAST [Catalytic activity/Vol]13 U/LCritically xgb70-68Gfy [facility] HospitalComment on above:Performed By: #### FERR, FETIBC, VITB12 #### [facility] [address] [place] [address] Dr. Barbra AlbrechtBilirubin [Mass/Vol]0.2 mg/dLNormal0.2-1.0The [facility] Comment on above:Performed By: #### FERR, FETIBC, VITB12 #### [facility] [address] [place] [address] Dr. Barbra AlbrechtCalcium [Mass/Vol]8.9 mg/dLNormal8.5-10.1The [facility] Comment on above:Performed By: #### FERR, FETIBC, VITB12 #### [facility] [address] [place] [address] Dr. Barbra AlbrechtChloride [Moles/Vol]103 mmol/QKbstwa54-782BhwSycam[facility] Medical Center Comment on above:Performed By: #### FERR, FETIBC, VITB12 #### [facility] [address] [place] [address] Dr. Barbra AlbrechtCO2 [Moles/Vol]26.5 mmol/AWgrmim32.0-32.0The [facility] Comment on above:Performed By: #### FERR, FETIBC, VITB12 #### [facility] [address] [place] [address] Dr. Barbra AlbrechtCreatinine [Mass/Vol]0.69 mg/dLNormal0.55-1.02The [facility] HospitalComment on above:Performed By: #### FERR, FETIBC, VITB12 #### [facility] [address] [place] [address] Dr. Barbra ThomasGFR-AF [place]>60Normal>=60The [facility] HospitalComment on above:Performed By: #### FERR, FETIBC, VITB12 #### [facility] [address] [place] [address] Dr. Barbra ThomasGFR-NON AF CHADIAN>60Normal>=60The [facility] HospitalComment on above:Performed By: #### FERR, FETIBC, VITB12 #### [facility] [address] [place] [address] Dr. Barbra AlbrechtGlobulin (S) [Mass/Vol]3.0 g/dLNormUniversity Hospitals TriPoint Medical CenterComment on above:Performed By: #### FERR, FETIBC, VITB12 #### [facility] [address] [place] [address] Dr. Barbra AlbrechtGlucose [Mass/Vol]94 mg/yCXkfcao53-534Lrg [facility] Comment on above:Performed By: #### FERR, FETIBC, VITB12 #### [facility] [address] [place] [address] Dr. Barbra AlbrechtPotassium [Moles/Vol]3.6 mmol/LNormal3.5-5.1The [facility] Comment on above:Performed By: #### FERR, FETIBC, VITB12 #### [facility] [address] [place] [address] Dr. Barbra AlbrechtProtein [Mass/Vol]6.9 g/dLNormal6.4-8.2The [facility] Comment on above:Performed By: #### FERR, FETIBC, VITB12 #### [facility] [address] [place] [address] Dr. Barbra AlbrechtSodium [Moles/Vol]138 mmol/IOyrvwo680-800MxgSycamore Medical Center Comment on above:Performed By: #### FERR, FETIBC, VITB12 #### [facility] [address] [place] [address] Dr. Barbra AlbrechtUrea nitrogen [Mass/Vol]18.0 mg/dLNormal7.0-18.0The [facility] HospitalComment on above:Performed By: #### FERR, FETIBC, VITB12 #### [facility] [address] [place] [address] Dr. Barbra AlbrechtUrea nitrogen/Creatinine [Mass ratio]26.1 mg/mgNoMemorial Health SystemComment on above:Performed By: #### FERR, FETIBC, VITB12 #### [facility] [address] [place] [address] Dr. Barbra Garcia Abdomen Completeon [id number] Abdomen CompleteEXAM: RUQ US CLINICAL HISTORY: pain [...] and signed by ADAM ALCANTARA on 03/10/2022 1059NormalNorthern New Milford HospitalUS Pelvic Complete w/Transvaginalon [id number] Pelvic Complete w/TransvaginalHISTORY: Pelvic pain for one [...] uterus. Report reported and signed by Mark Robert on 03/13/2022 0950NoOhioHealth [facility] Hospital SpecialistSCREENING MAMMOGRAM W/TRAY, BILATERAL*on 02-22-2022 SCREENING MAMMOGRAM W/TRAY, [...] VERY IMPORTANT TO YOUR HEALTH. THE CURRENT [employer] GUIDELINES RECOMMENDS ANNUAL MAMMOGRAPHY BEGINNING AT AGE 41 THIS FACILITY USES A REMINDER SYSTEM TO ENSURE ALL PATIENTS RECEIVE REMINDER NOTIFICATIONS AT THE APPROPRIATE TIME BASED ON THE RECOMMENDATIONS OF THIS EXAM. Board Certified Radiologist. Accredited by the ACR and FDA. Report reported and signed by Mark Jones on 02/27/2022 1028NoOhioHealth [facility] Hospital SpecialistCULTURE URINEon [id number] URINECulture Observations: MODERATE GROWTH OF MIXED GENITAL JOHNNY. NO POTENTIAL PATHOGENS SEEN.NormalThe St. [facility] HospitalComment on above:Performed By: #### FERR, FETIBC, VITB12 #### [facility] [address] [address] [address] Barbra Albrecht Vital Signs Date TimeVital SignValuePerforming GefozsfbrZrmeqbxv38-21-7543 09:140400Body olttqy774.64 cmFernanda Concepcion MD Work Phone: [facility]10-31-2025 09:14-0400 Body mass index (BMI) [Ratio]18.8 kg/y5HduxneFernanda Concepcion MD Work Phone: [facility]10-31-2025 09:14-040 Body cdvebm05.07 kgFernanda Concepcion MD Work Phone: [facility]10-31-2025 09:14-0400 Diastolic blood yiizsfre96 mm[Hg]Fernanda Concepcion MD Work Phone: 1([phone] [place], [place] 3635010-31-2025 09:14-0400 Heart rate93 /Cande Concepcion MD Work Phone: [phone])[address]10-31-2025 09:14-0400 Systolic blood ngiusotc715 mm[Hg]Fernanda Concepcion MD Work Phone: [phone])[address]10-20-2025 10:29-0400 Body ychret071.64 cmFernanda Concepcion MD Work Phone: [phone])[address]10-20-2025 10:29-0400 Body mass index (BMI) [Ratio]20.3 kg/a1FprueeFernanda Concepcion MD Work Phone: [phone] [place], [place] 8842710-20-2025 10:29-0400 Body valkfj49.15 kgFernanda Concepcion MD Work Phone: [phone])[address] [place], [place] 8842710-20-2025 10:29-0400 Diastolic blood vujyyjgf49 mm[Hg]Fernanda Concepcion MD Work Phone: [phone])[address] [place], [place] 8842710-20-2025 10:29-0400 Heart rate97 /Cande Concepcion MD Work Phone: [phone] [place], [place] 8842710-20-2025 10:29-0400 SaO2% (BldA) [Mass fraction]98 %Fernanda Concepcion MD Work Phone: [phone])[address]10-20-2025 10:29-0400 Systolic blood mm[Hg]Fernanda Concepcion MD Work Phone: [phone])[address]09-02-2025 13:03-0400 Body onsmib542.6 cmLeanne David DO Work Phone: [facility]linDjoilewnjt06-63-1020 13:03-0400Body mass index (BMI) [Ratio]20.98 kg/v6Wraxrf David DO Work Phone: noF[facility] HospitalPwrzngytjc44-89-5416 13:03-0400Body pgivxr92.97 kgLeanne David DO Work Phone: [facility]oplinWxwkrkcvcb88-15-3511 13:03-0400Diastolic blood fdgkrrhi32 mm[Hg]Marta David DO Work Phone: [facility]linOtzsugkvnh98-57-8659 13:03-0400Heart rate86 /min Marta David DO Work Phone: [facility]oplinBgzwjzrxti92-55-7947 13:03-5171FbI5% (BldA) [Mass fraction]99 %Marta David DO Work Phone: [facility]oplinYgdzdqxamj53-98-6236 13:03-0400Systolic blood mm[Hg]Marta Hernandez DO Work Phone: [facility]oplinPgvnxdeduf17-86-9620 08:30-0400Body .64 cmFernanda Concepcion MD Work Phone: [phone]57[facility]07-17-2025 08:30-0400 Body mass index (BMI) [Ratio]20.4 kg/m3RtkbreFernanda Concepcion MD Work Phone: [phone])[address]07-17-2025 08:30-0400 Body .37 kgFernanda Concepcion MD Work Phone: 1(010)107-[address] [place], [place] 3635007-17-2025 08:30-0400 Diastolic blood mm[Hg]Fernanda Concepcion MD Work Phone: 1(001)534-[address] [place], [place] 3635007-17-2025 08:30-0400 Heart rate80 /minFernanda Concepcion MD Work Phone: [phone]07-17-2025 08:30-0400 Systolic blood zwdyaiwm765 mm[Hg]Fernanda Concepcion MD Work Phone: 1([phone])737-[address] [place], [place] 3635007-02-2025 09:40-0400 Body ajnywf457.64 cmFernanda Concepcion MD Work Phone: 1(925)138-[address] [place], [place] 3635007-02-2025 09:40-0400 Body mass index (BMI) [Ratio]19.3 kg/p4IhrxyfFernanda Concepcion MD Work Phone: [phone]25[facility]07-02-2025 09:40-0400 Body eyzypg58.43 kgFernanda Concepcion MD Work Phone: [phone]56[facility]07-02-2025 09:40-0400 Diastolic blood omumcfuh07 mm[Hg]Fernanda Concepcion MD Work Phone: 1([phone])[address]07-02-2025 09:40-0400 Heart rate89 /Cande Concepcion MD Work Phone: [phone])[address]07-02-2025 09:40-0400 SaO2% (BldA) [Mass fraction]98 %Fernanda Concepcion MD Work Phone: 1([phone])430[address]07-02-2025 09:40-0400 Systolic blood jyoabktj392 mm[Hg]Fernanda Concepcion MD Work Phone: [phone])[address]06-17-2025 11:39-0400 Body esqncz694.64 cmFernanda Concepcion MD Work Phone: [phone])[address]06-17-2025 11:39-0400 Body mass index (BMI) [Ratio]19.8 kg/m8JqjhrtFernanda Concepcion MD Work Phone: [phone])[address]06-17-2025 11:39-0400 Body qrhtaa61.79 kgFernanda Concepcion MD Work Phone: 1(847)[address]06-17-2025 11:39-0400 Diastolic blood mm[Hg]Fernanda Concepcion MD Work Phone: 1(677)[address]06-17-2025 11:39-0400 Heart rate75 /Cande Concepcion MD Work Phone: 1(513)[address]06-17-2025 11:39-0400 Systolic blood mm[Hg]Fernanda Concepcion MD Work Phone: [phone])[address]05-27-2025 15:05-0400 Body ejfvpk213.6 cmLeanne David DO Work Phone: [facility]oplinBerxmhwffe60-42-7401 15:05-0400Body mass index (BMI) [Ratio]20.18 kg/i0Gjcpzp David DO Work Phone: [facility]linCpqfxhkbpw67-90-3197 15:05-0400Body dctsro92.7 kg Marta David DO Work Phone: 1([phone]-[facility]oplinKqdeoksnkl60-70-5581 15:05-0400Diastolic blood mtfwhyda84 mm[Hg]Marta David DO Work Phone: 1([phone]-[facility]oplinWqdnhurszl79-73-6010 15:05-0400Heart rate86 /min Marta David DO Work Phone: [phone]-[facility]oplinDbolywvbvp99-77-7764 15:05-7433QrD5% (BldA) [Mass fraction]95 %Marta David DO Work Phone: 1(768)1-[facility]oplinTaztbdrkbg14-91-6160 15:05-0400Systolic blood dgvtzobh749 mm[Hg]Marta David DO Work Phone: 1([phone]-[facility] CenterMer[facility] JoplinXeodligcux71-13-2154 09:04-0400Body iaeyxk544.64 cmFernanda Concepcion MD Work Phone: [facility]05-23-2025 09:04-0400 Body mass index (BMI) [Ratio]19.7 kg/m9MzjfztFernanda Concepcion MD Work Phone: [phone]05-23-2025 09:04-0400 Body yecwtfvkkxm56.8 [degF]Fernanda Concepcion MD Work Phone: [phone]05-23-2025 09:04-0400 Body cihdko59.33 kgFernanda Concepcion MD Work Phone: [phone]05-23-2025 09:04-0400 Diastolic blood mm[Hg]Fernanda Concepcion MD Work Phone: [facility]05-23-2025 09:04-0400 Heart rate77 /minFernanda Concepcion MD Work Phone: [facility]05-23-2025 09:04-0400 Respiratory rate16 /Cande Concepcion MD Work Phone: [facility]05-23-2025 09:04-0400 SaO2% (BldA) [Mass fraction]98 %Fernanda Concepcion MD Work Phone: [facility]05-23-2025 09:04-0400 Systolic blood qgdrlooh350 mm[Hg]Fernanda Concepcion MD Work Phone: [facility]05-02-2025 17:36-0400 Body leexjsbshns53.01 [degF]Markel Vicente SENIOR SOFTWARE QUALITY ANALYST Work Phone: [facility]oplinEqjwnimqft74-29-6997 17:36-0400Diastolic blood mm[Hg]Markel Vicente SENIOR SOFTWARE QUALITY ANALYST Work Phone: [facility]oplinIzzxehxwqz45-80-4038 17:36-0400Heart rate86 /min Markelsloane Vicente SENIOR SOFTWARE QUALITY ANALYST Work Phone: [facility] JoplinDcervjuiir30-06-9747 17:36-6853NeI8% (BldA) [Mass fraction]98 %Markel Vicente SENIOR SOFTWARE QUALITY ANALYST Work Phone: [facility] JoplinLaaawfztvt82-05-8580 17:36-0400Systolic blood qxuihisd103 mm[Hg]Markel Vicente SENIOR SOFTWARE QUALITY ANALYST Work Phone: [facility] JoplinBmlehiveum90-01-4049 09:13-0400Body mass index (BMI) [Ratio]18.88 kg/y8KdwfdaStevan Alicia MD Work Phone: [facility]oplinCecbjcycff65-17-4429 09:13-0400Body xjduht39.07 kgStevan Alicia MD Work Phone: [facility]oplinZetztpscyl64-69-4758 09:13-0400Diastolic blood gkmepuvi72 mm[Hg]Stevan Alicia MD Work Phone: [facility]oplinEbuivytibg73-71-8910 09:13-0400Systolic blood ikqhhjid592 mm[Hg]Stevan Alicia MD Work Phone: noFulton State HospitalGttfeoncct61-88-7434 14:190400Body xhpiwh406.6 cmAdinorah Mongechristian SENIOR SOFTWARE QUALITY ANALYST Work Phone: [facility]oplinEmpiyniowy25-52-0507 14:19-0400Body mass index (BMI) [Ratio]19.05 kg/p4YsbayvCandice Mongechristian SENIOR SOFTWARE QUALITY ANALYST Work Phone: NOFulton State HospitalBbkvegnfrb30-52-4943 14:19-0400Body rnwuiy89.52 kgCandice Mongechristian SENIOR SOFTWARE QUALITY ANALYST Work Phone: NOFulton State HospitalTkqqudfltc64-74-6230 14:19-0400Diastolic blood jqhiykat17 mm[Hg]Candice Mongechristian SENIOR SOFTWARE QUALITY ANALYST Work Phone: [facility] JoplinFxoztwdiln89-08-5309 14:19-0400Heart rate87 /min Candice Avalosjace SENIOR SOFTWARE QUALITY ANALYST Work Phone: [facility]oplinIndzjuwpun06-85-2754 14:19-3531UaB8% (BldA) [Mass fraction]96 %Candice Mongechristian SENIOR SOFTWARE QUALITY ANALYST Work Phone: [facility] JoplinRarcozcthg67-28-8326 14:0400Systolic blood svesxmer563 mm[Hg]Candice Avalosjace SENIOR SOFTWARE QUALITY ANALYST Work Phone: [facility]oplinBzdudvowvp21-31-0998 10:03-0400Body .64 cmFernanda Concepcion MD Work Phone: [facility]03-27-2025 10:03-0400 Body mass index (BMI) [Ratio]19.8 kg/q1QgqweuFernanda Concepcion MD Work Phone: [facility]03-27-2025 10:03-0400 Body qceoqg82.9 kgFernanda Concepcion MD Work Phone: [facility]03-27-2025 10:03-0400 Diastolic blood ygrheytr83 mm[Hg]Fernanda Concepcion MD Work Phone: [facility]03-27-2025 10:03-0400 Heart rate85 /minFernanda Concepcion MD Work Phone: 1(016)[address]03-27-2025 10:03-0400 Systolic blood liokcrjn411 mm[Hg]Fernanda Concepcion MD Work Phone: 1(362)[address]12-04-2024 13:00-0500 Diastolic blood kbmrqhad35 mm[Hg]Fernanda Concepcion MD Work Phone: 1(855)[address]12-04-2024 13:00-0500 Heart rate94 /Cande Concepcion MD Work Phone: 1(402)[address]12-04-2024 13:00-0500 Respiratory rate18 /Cande Concepcion MD Work Phone: 1([phone])[address] [place], [place] 8842712-04-2024 13:00-0500 SaO2% (BldA) [Mass fraction]97 %Fernanda Concepcion MD Work Phone: 1(203)[address] [place], [place] 8842712-04-2024 13:00-0500 Systolic blood xunpuyhm087 mm[Hg]Fernanda Concepcion MD Work Phone: 1(262)[address] [place], [place] 8842712-04-2024 09:56-0500 Body .64 cmFernanda Concepcion MD Work Phone: 1(022)[address] [place], [place] 8842712-04-2024 09:56-0500 Body mass index (BMI) [Ratio]19.5 kg/a9NwhoasFernanda Concepcion MD Work Phone: 1(646)[address] [place], [place] 8842712-04-2024 09:56-0500 Body dogdaeqzbyy35.9 [degF]Fernanda Concepcion MD Work Phone: 1(186)[address] [place], [place] 8842712-04-2024 09:56-0500 Body berlrx99.88 kgFernanda Concepcion MD Work Phone: 1(651)[address] [place], [place] 8842712-04-2024 09:56-0500 Diastolic blood otrszuyk14 mm[Hg]Fernanda Concepcion MD Work Phone: 1(665)[address] [place], [place] 8842712-04-2024 09:56-0500 Heart rate91 /Cande Concepcion MD Work Phone: [phone]12-04-2024 09:56-0500 Systolic blood scamypsy215 mm[Hg]Fernanda Concepcion MD Work Phone: [phone]11-26-2024 13:13-0500 Body edptxuyfflo56.1 [degF]Fernanda Concepcion MD Work Phone: [phone]11-18-2024 10:30-0500 Body .64 cmFernanda Concepcion MD Work Phone: [phone])[address]11-18-2024 10:30-0500 Body mass index (BMI) [Ratio]19.3 kg/b6AmkshmFernanda Concepcion MD Work Phone: [phone]11-18-2024 10:30-0500 Body txrnexyrfba09 [degF]Fernanda Concepcion MD Work Phone: [phone])[phone]11-18-2024 10:30-0500 Body .43 kgFernanda Concepcion MD Work Phone: [phone]11-18-2024 10:30-0500 Diastolic blood mm[Hg]Fernanda Concepcion MD Work Phone: [phone]11-18-2024 10:30-0500 Heart bwkj072 /Cande Concepcion MD Work Phone: [phone])32[address]11-18-2024 10:30-0500 Respiratory rate16 /Cande Concepcion MD Work Phone: [phone]11-18-2024 10:30-0500 SaO2% (BldA) [Mass fraction]97 %Fernanda Concepcion MD Work Phone: [phone]11-18-2024 10:30-0500 Systolic blood bmefdcme231 mm[Hg]Fernanda oCncepcion MD Work Phone: [phone]10-28-2024 08:42-0400 Body tezmjz59.07 kgMD Fernanda Concepcion Work Phone: [facility]10-28-2024 08:42-0400 Diastolic blood ljrefjfu67 mm[Hg]MD Fernanda Concepcion Work Phone: [facility]10-28-2024 08:42-0400 Heart rate89 /minMD Fernanda Concepcion Work Phone: [facility]10-28-2024 08:42-0400 Systolic blood ikdgjrao068 mm[Hg]MD Fernanda Concepcion Work Phone: [facility]10-17-2024 14:50-0400 Body mass index (BMI) [Ratio]19.05 kg/r3TxyijrStevan Alicia MD Work Phone: [facility]cfrifqmah[facility]15[facility] 14:50-0400Body bmfabn07.52 kgStevan Alicia MD Work Phone: [facility]linUngbhcsnud02-09-3664 14:50-0400Diastolic blood qotiuaou72 mm[Hg]Stevan Alicia MD Work Phone: [facility]linEbqgkmnhkt11-66-2603 14:50-0400Systolic blood sxyyiysv902 mm[Hg]Stevan Alicia MD Work Phone: [facility]linIqbfhbgjku57-23-4823 15:14-0400Body fdpyxd820.6 cmLeanne David DO Work Phone: [facility]linDovtxipipl26-43-8642 15:14-0400Body mass index (BMI) [Ratio]18.56 kg/t4Zzsicl David DO Work Phone: [place] [address]Jeogseuipj83-47-2031 15:14-0400Body fwlxew08.16 kgLeanne David DO Work Phone: [place] [address]Jyotdcoyuq38-94-2114 15:14-0400Diastolic blood xjeoxgrn60 mm[Hg]Marta David DO Work Phone: [facility]linZvwvboelju21-37-4884 15:14-0400Heart rate76 /min Marta David DO Work Phone: [place] [address]Ietzraaxxh20-21-3731 15:14-4287AmY5% (BldA) [Mass fraction]99 %Marta David DO Work Phone: [facility]linWeyarbrmtl53-66-9878 15:14-0400Systolic blood swckjegp233 mm[Hg]Marta David DO Work Phone: [facility]linZexaawzaqx55-95-9368 08:36-0400Body mkuika943.64 cmMD Fernanda Concepcion Work Phone: [phone]07-16-2024 08:36-0400 Body mass index (BMI) [Ratio]18.2 kg/m2MD Fernanda Concepcion Work Phone: [phone]22[facility]07-16-2024 08:36-0400 Body qnfdup43.25 kgMD Fernanda Concepcion Work Phone: [phone]07-16-2024 08:36-0400 Diastolic blood qnoumaye50 mm[Hg]MD Fernanda Concepcion Work Phone: [phone]07-16-2024 08:36-0400 Heart rate80 /minMD Fernanda Concepcion Work Phone: [phone]07-16-2024 08:36-0400 Systolic blood gbzuawvz989 mm[Hg]MD Fernanda Concepcion Work Phone: [facility]06-28-2024 13:39-0400 Blood Pressure Deon Delgado [facility]06-28-2024 13:39-0400 Diastolic blood uxnrtmxk42 mm[Hg]Girma Delgado [facility]06-28-2024 13:39-0400Heart rate85 /Elida Delgado [facility]06-28-2024 13:39-0400 Respiratory rate16 /minGirma Delgado [facility]06-28-2024 13:39-7844NhK0% (BldA) [Mass fraction]96 %Girma Sandy [facility]06-28-2024 13:39-0400 Systolic blood lymlggim801 mm[Hg]Girma Sandy [facility]06-18-2024 11:48-0400 Diastolic blood axucpako81 mm[Hg]MD Fernanda Concepcion Work Phone: [facility]06-18-2024 11:48-0400 Heart rate66 /minMD Fernanda Concepcion Work Phone: [facility]06-18-2024 11:48-0400 Respiratory rate18 /minMD Fernanda Concepcion Work Phone: [facility]06-18-2024 11:48-0400 SaO2% (BldA) [Mass fraction]98 %MD Fernanda Concepcoin Work Phone: [facility]06-18-2024 11:48-0400 Systolic blood mm[Hg]MD Fernanda Concepcion Work Phone: [facility]06-18-2024 10:10-0400 Body tvpazl569.64 cmMD Fernanda Concepcion Work Phone: [facility]06-18-2024 10:10-0400 Body zusjam79.89 kgMD Fernanda Concepcion Work Phone: [facility]05-15-2024 14:53-0400 Diastolic blood zthxukwy24 mm[Hg]Girma Sandy [facility]05-15-2024 14:53-0400Heart rate81 /minGirma Oterojarred [facility]05-15-2024 14:53-9837IxR7% (BldA) [Mass fraction]95 %Girma Sandy [facility]05-15-2024 14:53-0400 Systolic blood mm[Hg]Girma Oterojacobkyung [facility]04-09-2024 10:43-0400Body owwkzz767.64 cmMD Fernanda Concepcion Work Phone: [facility]04-09-2024 10:43-0400 Body mass index (BMI) [Ratio]19.1 kg/m2MD Fernanda Concepcion Work Phone: [phone]04-09-2024 10:43-0400 Body pacgpv60.72 kgMD Fernanda Concepcion Work Phone: [phone]04-09-2024 10:43-0400 Diastolic blood xhjjokaf39 mm[Hg]MD Fernanda Concepcion Work Phone: [phone]04-09-2024 10:43-0400 Heart rate98 /minMD Fernanda Concepcion Work Phone: [phone]04-09-2024 10:43-0400 Systolic blood clmesbbz144 mm[Hg]MD Fernanda Concepcion Work Phone: [phone]72[facility]03-25-2024 10:20-0400 Body rgyona495.64 cmMD Fernanda Concepcion Work Phone: [phone]03-25-2024 10:20-0400 Body mass index (BMI) [Ratio]18.8 kg/m2MD Fernanda Concepcion Work Phone: [phone]03-25-2024 10:20-0400 Body mcquwo93.07 kgMD Fernanda Concepcion Work Phone: [phone]03-25-2024 10:20-0400 Diastolic blood uvuonauj41 mm[Hg]MD Fernanda Concepcion Work Phone: [phone]03-25-2024 10:20-0400 Heart rate87 /minMD Fernanda Concepcion Work Phone: [phone]03-25-2024 10:20-0400 Systolic blood juruqpwp999 mm[Hg]MD Fernanda Concepcion Work Phone: [facility]02-06-2024 07:20-0500 Body .64 cmMD Fernanda Concepcion Work Phone: [facility]02-06-2024 07:20-0500 Body bnmnam45.89 kgMD Fernanda Concepcion Work Phone: [facility]12-04-2023 13:30-0500 Body xawhxx102.64 cmFernanda Concepcion Other [facility] Other [id number] 13:30-0500Body mass index (BMI) [Ratio] 18.49 kg/f5AyigtoFernanda Concepcion Other [employer] Other 12-04-2023 13:30-0500Body .98 kgFernanda Concepcion Other [facility] Other 703852-28-4278 13:30-0500Diastolic blood aajufbqw90 mm[Hg] Fern[facility] Other 12-04-2023 13:30-0500Systolic blood owgljqoo799 mm[Hg] Fernanda [facility]pcion [facility] Other 11-01-2023 14:00-0400Body gnapzy494.64 cmStacho Mcdonough Other [employer] Other 11-01-2023 14:00-0400Body mass index (BMI) [Ratio] 18.14 kg/a4NkhomkStefan Mcdonough Other [employer] Other 11-01-2023 14:00-0400Body ypsiqi18.98 kgStefan Mcdonough Other [employer] Other 11-01-2023 14:00-4511UpV0% (BldA) [Mass fraction]98 % Stefan Mcdonough Other [facility] Other 08-30-2023 09:54-0400Blood Pressure LocationJENNIFER EJ [facility] [place] [address]-30-2023 09:54-0400Diastolic blood yphkjycc53 mm[Hg]GIANNA EJ [facility] [place] [address]-30-2023 09:54-0400Heart rate90 /minJENNIFER EJ [facility]08-30-2023 09:54-0400Systolic blood luwaofib673 mm[Hg]GIANNA EJ [facility]08-23-2023 09:41-0400Blood Pressure LocationJENNIFER EJ [facility]08-23-2023 09:41-0400Diastolic blood zjlxptli55 mm[Hg]GIANNA EJ [facility]08-23-2023 09:41-0400Heart rate89 /minJENNIFER EJ [facility] [place] [address]-23-2023 09:41-0400Systolic blood febohfsn511 mm[Hg]GIANNA EJ [facility] [place] [address]-16-2023 10:47-0400Blood Pressure LocationJENNIFER EJ [facility] [address]16-2023 10:47-0400Diastolic blood fjhiuynd24 mm[Hg]GIANNA EJ [facility] [place] [address]-16-2023 10:47-0400Heart rate81 /minJENNIFER EJ [facility] [place] [address]-16-2023 10:47-0400Systolic blood egfuknrl883 mm[Hg]GIANNA EJ [facility] [place] [address]-09-2023 09:43-0400Blood Pressure LocationJENNIFER EJ [facility] [place] [address]-09-2023 09:43-0400Diastolic blood aibrtubj01 mm[Hg]GIANNA EJ [facility]08-09-2023 09:43-0400Heart rate74 /minJENNIFER EJ [facility]08-09-2023 09:43-0400Systolic blood zejomxly147 mm[Hg]GIANNA EJ [facility]07-14-2023 08:45-0400Body rokwmk417.64 cmFernanda Concepcion Other [employer] Other 07-14-2023 08:45-0400Body mass index (BMI) [Ratio] 19.21 kg/k4YzbklbFernanda Concepcion Other [employer] Other 07-14-2023 08:45-0400Body dkkzac99.98 kgFernanda Concepcion Other [employer] Other 07-14-2023 08:45-0400Diastolic blood harbggqx08 mm[Hg] Fernanda Concepcion Other [employer] Other 07-14-2023 08:45-0400Systolic blood mm[Hg] Fernanda Concepcion Other [employer] Other 06-09-2023 13:00-0400Body uzdeoi652.64 cmAmenicokatie Jamey Other [employer] Other 06-09-2023 13:00-0400Body mass index (BMI) [Ratio] 20.01 kg/z7ZumrofFernanda Concepcion Other [employer] Other 06-09-2023 13:00-0400Body .25 kgFernanda Concepcion Other [employer] Other 06-09-2023 13:00-0400Diastolic blood jctlzsov83 mm[Hg] Fernanda Concepcion Other [employer] Other 06-09-2023 13:00-0400Systolic blood mm[Hg] Fernanda Concepcion Other [employer] Other 04-03-2023 11:00-0400Body nezodl051.64 cmFernanda Concepcion Other [employer] Other 04-03-2023 11:00-0400Body mass index (BMI) [Ratio] 20.82 kg/z4FmugkdFernanda Concepcion Other [employer] Other 04-03-2023 11:00-0400Body iyahfv38.51 kgFernanda Concepcion Other [employer] Other 04-03-2023 11:00-0400Diastolic blood ugscqlsy70 mm[Hg] Fernanda Concepcion Other [facility] Other 04-03-2023 11:00-5752JdV6% (BldA) [Mass fraction]97 % Fernanda Concepcion Other [facility] Other 04-03-2023 11:00-0400Systolic blood yjfrbpjp288 mm[Hg] Fernanda Concepcion Other [facility] Other 03-28-2023 08:33-0400Blood Pressure LocationJENNIFER EJ [facility]03-28-2023 08:33-0400Diastolic blood agvqkdfs00 mm[Hg]GIANNA EJ [facility]03-28-2023 08:33-0400Heart rate89 /minJENNIFER EJ [facility]03-28-2023 08:33-0400Systolic blood mm[Hg]GIANNA EJ [facility]01-04-2023 11:28-0500Body spebthpamgp05.4 [degF]MD Stevan Alicia Work Phone: [facility]01-04-2023 11:28-0500 Body zolmtc59.2 kgMD Stevan Alicia Work Phone: [facility]01-04-2023 11:28-0500 Diastolic blood rlbilykt81 mm[Hg]MD Stevan Alicia Work Phone: [facility]01-04-2023 11:28-0500 Heart rate86 /minMD Stevan Alicia Work Phone: [facility]01-04-2023 11:28-0500 Respiratory rate18 /minMD Stevan Alicia Work Phone: [facility]01-04-2023 11:28-0500 SaO2% (BldA) [Mass fraction]100 %MD Stevan Alicia Work Phone: [facility]01-04-2023 11:28-0500 Systolic blood zodcpbxk554 mm[Hg]MD Stevan Alicia Work Phone: [facility]12-01-2022 09:40-0500 Blood Pressure LocationRobert STEVEN [facility] [place] [address]172-01-2022 09:40-0500Diastolic blood mm[Hg]Willem HARRIS [facility] [place] 149172-01-2022 09:40-0500Heart rate76 /minRobert STEVEN [facility] [place] [address]172-01-2022 09:40-0500Systolic blood tvebrshw233 mm[Hg]Willem HARRIS [facility] [place] 149171-01-2022 10:41-0400Body eojxwf841.91 cmMD Stevan Alicia Work Phone: [facility] Encounters Encounter DateEncounter TypeCare ProviderFacilityStart: 07-17-2025 End: 72-14-2930mnhtamakolAoghla E Braun MD Work Phone: [facility]25 End: 03-92-6336Bsrchtl encounter procedureFernanda Concepcion MD-[facility] Work Phone: Start: 07-13-2025 End: 41-02-2216zngbeqpeqmJnytcg E Braun MD Work Phone: [phone]-AukstxmasJoint Venture [facility] Mgmt BCStart: 07-13-2025 End: 19-74-3170Bknmcgi encounter procedureThmarylu Mark MD-[facility] Work Phone: Start: 07-08-2025 End: 68-43-6792xqmwvggehwRZEYBR P JONESNot AvailableStart: 07-08-2025 End: 21-44-2090oveyqwtcqhTHMZLA BAILEYMORNot AvailableStart: 07-07-2025 End: 55-37-1352bqbxihhjymHaezqh E Braun MD Work Phone: [phone]-Tjwldrbvs Health OrthopedicsStart: 07-07-2025 End: 23-72-6403Rnobkeh encounter procedureCodeandra Rodriguez MD-[facility] Work Phone: Start: 07-06-2025 End: 76-36-7907jizesewxduHmellk E Braun MD Work Phone: -[facility] BellevueStart: 07-06-2025 End: 87-70-6056Iizijyx encounter procedureNicelizabeth Lambert DO-[facility] [place] Work Phone: Start: 07-37-6151Roo-patient / Non-visitCatherine Prieto VARNISH MELTER-[facility] Work Phone: Start: 06-08-2025 End: 41-32-8860XwkuwqTjjvt [place] LPNNRAJWINDER [place] OBGYNComment on above: Iron deficiencyStart: 05-19-2025 End: 98-96-0811Tfuiih Junaid Hernandez DO Work Phone: [facility] [place] PulmonologyStart: 05-19-2025 End: 99-33-8141Nkdpsagemini Hernandez DO Work Phone: [facility] [place] PulmonologyStart: 05-19-2025 End: 76-45-2173Ifrgsb outpatient visit 25 minutesMarta Hernandez DO Work Phone: [facility] [place] PulmonologyComment on above: Chronic obstructive pulmonary disease, unspecified COPD type (HCC) (Primary Dx); Cigarette smokerStart: 05-19-2025 End: 02-04-7046lyissieuzgSPBPEK K STRACKNot AvailableStart: 04-22-2025 End: 34-91-6055neuwnzijrgEphlhz E Braun MD Work Phone: [facility] Work Phone: Start: 04-22-2025 End: 63-50-2121Egweivv encounter procedureTad Mark MD-[facility] Work Phone: Start: 04-09-2025 End: 73-28-3700knkwwfhfteYHSRDR P JONESNot AvailableStart: 04-02-2025 End: 64-79-5095znmdgjuckuKarcrn E Braun MD Work Phone: [facility] Work Phone: Start: 04-02-2025 End: 76-88-4031Ilmovht encounter procedureFernanda Concepcion MD-[facility] Work Phone: Start: 04-02-2025 End: 17-38-2746Xncnvro encounter statusFernanda Concepcion MDCorey Hospitaltart: 03-27-2025 End: 32-78-4744kofobrbngwKnecpf E Braun MD Work Phone: [facility] Work Phone: Start: 03-27-2025 End: 96-66-4015Lsprreb encounter procedureCodeandra Rodriguez MD-[facility] Work Phone: Start: 03-23-2025 End: 28-07-3899iblhpqsdwmLmcmtv E Braun MD Work Phone: [facility] Work Phone: Start: 03-23-2025 End: 47-57-9439Swfuidu encounter procedureTad Mark MD-[facility] Work Phone: Start: 03-18-2025 End: 86-40-9863lbopwdsiuwPbhstt E Braun MD Work Phone: [facility] Work Phone: Start: 03-18-2025 End: 81-18-3519Nqbanme encounter procedureCathryn Lambert DO-[facility] [place] Work Phone: Start: 80-57-5394Qkr-patient / Non-visitFernanda Concepcion MD-[facility] Work Phone: Start: 03-03-2025 End: 11-42-9019Yhdpbmq encounter procedureFernanda Concepcion MD-[facility] Work Phone: Start: 03-02-2025 End: 72-66-5616Jgdpjym encounter procedureCathryn Lambert DO-[facility] Work Phone: Start: 02-25-2025 End: 39-66-9870iiyjasdacjZsjzlm E Braun MD Work Phone: [facility] Work Phone: Start: 02-25-2025 End: 92-49-0542Qhtmqtv encounter Nguyễn Concepcion MD Work Phone: [facility] Work Phone: Start: 02-10-2025 End: 14-50-1837Jttaes outpatient visit 25 minutesMarta Hernandez DO Work Phone: noMS PULMComment on above:Chronic obstructive pulmonary disease, unspecified COPD type (CMS/HCC) (Primary Dx); Cigarette smokerStart: 02-10-2025 End: 19-18-5975cpabgewtvwIXNRKQ K STRACKNot AvailableStart: 02-10-2025 End: 77-58-4394Diukvn Junaid Hernandez DO Work Phone: noMS PULMStart: 02-10-2025 End: 30-12-8206Twmwil Junaid Parker David DO Work Phone: noms PULMStart: 02-06-2025 End: 38-18-7135Aaehmau encounter procedureFernanda Concepcion MD Work Phone: [facility] Work Phone: Start: 02-06-2025 End: 00-96-4359eohozscfeoOxduec E BraunFacility:[facility] Hospital[facility]art: 47-12-2823Hlkxilsvys RecurringFernanda Concepcion MD Work Phone: [facility] Work Phone: Start: 01-27-2025 End: 05-20-8487Evqydvx encounter procedureFernanda Concepcion MD Work Phone: [facility] CtrStart: 01-27-2025 End: 93-06-6881ngmxlhwigcTqauow E Braun MD Work Phone: [facility] Work Phone: Start: 01-16-2025 End: 39-64-7631Ixzqxu outpatient visit 25 minutesMarkel Vicente SENIOR SOFTWARE QUALITY ANALYST Work Phone: noms SWS UCComment on above:Pain and swelling of toe of left foot (Primary Dx); Muscle strain of left foot, initial encounterStart: 01-16-2025 End: 05-37-0541fwfpjrseohUZIECD L HOLBROOKNot AvailableStart: 01-12-2025 End: 25-26-2805zabypswhuyFAJHCF P JONESNot AvailableStart: 01-12-2025 End: 72-88-3183Gmpltt outpatient visit 15 minutesStevan Alicia MD Work Phone: noms SWS OBComment on above:Encounter for gynecological examination without abnormal finding (Primary Dx); Encounter for screening for cervical cancer; Cysts of both ovaries; History of endometrial ablation; Amenorrhea; Asymptomatic menopausal state; Anemia, unspecified type; Other iron deficiency anemia; Abnormal TSH; Mood swings; Chronic vulvitis; HSV (herpes simplex virus) infection; MyomaStart: 01-12-2025 End: 92-45-5467Mvwsawc encounter statusStevan Alicia MD Work Phone: [facility] HealthcareStart: 01-06-2025 End: 72-24-1238Ptmpyp outpatient visit 25 minutesAngela Talha SENIOR SOFTWARE QUALITY ANALYST Work Phone: ana SANDUSKYComment on above:Paresthesias (Primary Dx); Joint disease, temporomandibular; Neck pain; Foot pain, bilateral; Abnormal MRI, cervical spine; Bilateral occipital neuralgiaStart: 01-06-2025 End: 11-51-5084nbprmkkvvkBUJCFX GILLMORNot AvailableStart: 01-06-2025 End: 59-69-3305Seiqoe flowsheetAngela Baileymor SENIOR SOFTWARE QUALITY ANALYST Work Phone: ana SANDUSKYStart: 01-06-2025 End: 24-41-3920Rqwujk flowsheetAngela Baileymor SENIOR SOFTWARE QUALITY ANALYST Work Phone: ana SANDUSKYStart: 01-05-2025 End: 53-78-1818hjhacjknrdAOJTBW GILLMORNot AvailableStart: 12-26-2024 End: 72-71-0976slelnhukasQknjyn E Braun MD Work Phone: [facility] Work Phone: Start: 12-26-2024 End: 13-05-4179Ewtvyxk encounter Nguyễn Concepcion MD Work Phone: [facility] Work Phone: Start: 12-11-2024 End: 12-28-4142wrjegmtgycBrqtkz E Braun MD Work Phone: [facility] Work Phone: Start: 12-11-2024 End: 76-13-9018Ofgvapb encounter procedureFernanda Concepcion MD Work Phone: [facility] Work Phone: Start: 11-14-2024 End: 97-93-5780vvsbndpzncZcenqd E Braun MD Work Phone: [facility] Work Phone: Start: 11-14-2024 End: 03-17-7250Jvmyrzy encounter procedureFernanda Concepcion MD Work Phone: [facility] Work Phone: Start: 80-88-6490Zuu-patient / Non-visitFernanda Concepcion MD Work Phone: [facility] Work Phone: Start: 11-05-2024 End: 07-25-5549Vnnxpqz encounter procedureFernanda Concepcion MD Work Phone: [facility] [place] Work Phone: Start: 11-05-2024 End: 86-70-7801lelnpxlhsdSjscnn E Braun MD Work Phone: [facility] Work Phone: Start: 48-62-4358Uutmdwpusw Luna Concepcion MD Work Phone: [facility] Work Phone: Start: 10-03-2024 End: 35-84-4079lhbpwlvtcsKhkdte E Braun MD Work Phone: [facility] Work Phone: Start: 10-03-2024 End: 74-40-3743Xfyugmx encounter Nguyễn Concepcion MD Work Phone: [facility] Work Phone: Start: 11-94-9775Xjogojuqze Luna Concepcion MD Work Phone: [facility] Work Phone: Start: 08-20-2024 End: 01-36-3723Ycnibgc encounter procedureFernanda Concepcion MD Work Phone: [facility] Work Phone: Start: 75-90-7389Sqhdbkvdbp Luna Concepcion MD Work Phone: [facility] Work Phone: Start: 08-04-2024 End: 84-96-0591gubvkpvkpsVzaiwo E Braun MD Work Phone: [facility] Work Phone: Start: 08-04-2024 End: 18-69-5827Elxltql encounter procedureFernanda Concepcion MD Work Phone: [facility] Work Phone: Start: 07-22-2024 End: 97-12-7625Tvaxdah encounter procedureMD Fernanda Concepcion Work Phone: [facility] Work Phone: Start: 07-22-2024 End: 10-94-9294dguknxcbcjQK Marcia E Braun Work Phone: [facility] Work Phone: Start: 07-17-2024 End: 75-35-2841Smpgxj outpatient visit 15 minutesStevan Alicia MD Work Phone: [facility] SWS OBComment on above:Mood swings; Vaginal itching; Vaginal discharge; Cysts of both ovaries; Abnormal CBC; Iron deficiency anemia, unspecified iron deficiency anemia type; Insomnia, unspecified typeStart: 07-16-2024 End: 13-06-0677tbdtjxxnmiShzxxv E BraunFacility:[facility] [facility]: 07-16-2024 End: 42-88-5890Byvkiozvlf Luna Concepcion MD Work Phone: [facility] Therapy Start: 20-19-2200Zmahtqeflq Kitty Concepcion Work Phone: [facility] Start: 07-14-2024 End: 64-54-1230Ghisuewan encounterStevan Alicia MD Work Phone: [facility] SWS OBStart: 07-14-2024 End: 87-38-4206mwbzyykuodFL Fernanda Jimenez Concepcion Work Phone: [facility] Work Phone: Start: 07-14-2024 End: 88-47-6385Hkcihtj encounter procedureMD Fernanda Concepcion Work Phone: [facility] Work Phone: Start: 07-10-2024 End: 94-60-7953Ydztqt OnlyStevan Alicia MD Work Phone: n[facility] SWS OBComment on above:Chronic vulvitis (Primary Dx)Start: 98-48-4327Qttyefamsr RecurringMD Fernanda Concepcion Work Phone: [facility] Start: 07-03-2024 End: 00-23-0308Tfpsmqu encounter statusStevan Alicia MD Work Phone: [facility] HealthcareStart: 07-03-2024 End: 86-21-4079Kgcsqfed 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 est patient 40-64yrsPenola Jas Alicia MD Work Phone: noms SWS OBComment on above:Amenorrhea (Primary Dx); Encounter for screening mammogram for malignant neoplasm of breast; Screening for malignant neoplasm of cervix; Encounter for gynecological examination without abnormal finding; History of endometrial ablation; Hx of ovarian cyst; Vaginal discharge; Thyroid disorder screeningStart: 07-01-2024 End: 70-87-2802Yjeuoa outpatient visit 25 Shawn Hernandez DO Work Phone: noms PULMComment on above:Chronic obstructive pulmonary disease, unspecified COPD type (CMS/HCC) (Primary Dx); Cigarette smokerStart: 07-01-2024 End: 61-90-0388Kwfzyf flowsheetMarta Hernandez DO Work Phone: [facility] PULMStart: 07-01-2024 End: 58-03-1819Ijpjnb Junaid Hernandez DO Work Phone: [facility] PULMStart: 06-25-2024 End: 97-13-5625tvhufmknoyOC Fernanda Concepcion Work Phone: [facility] Work Phone: Start: 06-25-2024 End: 48-54-0512Qbgfktg encounter procedureMD Fernanda Concepcion Work Phone: [facility] [place] [facility] Work Phone: Start: 95-62-9142Nuydxnxpmt RecurringMD Fernanda Concepcion Work Phone: [facility] Start: 05-13-2024 End: 11-13-5429lmvgyvsxinZX Fernanda Concepcion Work Phone: [facility] Work Phone: Start: 05-13-2024 End: 82-39-7402Eqgomhd encounter procedureMD Fernanda Concepcion Work Phone: [facility] [place] [facility] Work Phone: Start: 05-07-2024 End: 84-55-6591Cuf-admission assessmentThmarylu Thao [facility] Start: 65-28-0254Awthmki encounter statusMD Fernanda Concepcion Work Phone: [facility]: 04-01-2024 End: 05-01-9160essuztdevjLN Marcia E Braun Work Phone: [facility] Work Phone: Start: 04-01-2024 End: 29-27-7641Attyckyua for general adult medical examination without abnormal findingsMD Fernanda Concepcion Work Phone: [facility]: 04-01-2024 End: 60-79-5749Lcpwgmi encounter procedureMD Fernanda Concepcion Work Phone: [facility] Work Phone: Start: 03-26-2024 End: 41-31-0729Mznkena encounter procedureTad Thao [facility] Start: 03-18-2024 End: 05-30-9216witflwkgvyKG Fernanda Concepcion Work Phone: [facility] Work Phone: Start: 03-18-2024 End: 18-28-1817Fiqezuq encounter procedureMD Fernanda Concepcion Work Phone: [facility] [place] [facility] Work Phone: Start: 03-17-2024 End: 58-07-0239Nrewyms encounter procedureMD Fernanda Concepcion Work Phone: [facility] Work Phone: Start: 03-17-2024 End: 17-86-3921qubifkvjpnCT Marcia E Braun Work Phone: [facility] Work Phone: Start: 03-14-2024 End: 17-39-3009jyxfwjxjbiKCUK NONEFacility:FTMCStart: 03-14-2024 End: 40-17-4536Alalgof encounter procedureGirma Deglado [facility] Start: 95-27-9535Tlx-patient / Non-visitMD Fernanda Concepcion Work Phone: [facility] Work Phone: Start: 63-03-1896Vla-patient / Non-visitMD Fernanda Concepcion Work Phone: [facility] Work Phone: Start: 03-04-2024 End: 97-04-8774Omxcwgutd to same day surgery centerMD Fernanda Concepcion Work Phone: [facility] Work Phone: Start: 03-04-2024 End: 17-76-8115wnektpoclbGong AsaadFacility:[facility] Start: 02-12-2024 End: 15-00-4667lhjupwypysUY Marcia E Braun Work Phone: [facility] Work Phone: Start: 02-12-2024 End: 36-37-3901Ywjcasd encounter procedureMD Fernanda Concepcion Work Phone: [facility] [place] [facility] Work Phone: Start: 02-06-2024 End: 86-28-0951pgasicvqnbUnwv D. ChristoffersonFacility:FTMCStart: 02-06-2024 ambulatoryRyaltaf PedrozaersonFacility:FTMCStart: 02-06-2024 End: 87-85-4759Wpqmjae encounter procedureGirma Delgado [facility] Start: 01-30-2024 End: 62-19-4070keebqyhhhwSEOZAYP COLLINSFacility:FTMCStart: 01-30-2024 End: 51-41-7346Eyfufyb encounter Nae Delgado [facility] Start: 01-29-2024 End: 57-17-0543eebwqpeldnVR Marcia E Braun Work Phone: [facility] Work Phone: Start: 01-29-2024 End: 81-95-6464Jivtbdjbru RecurringMD Fernanda Concepcion Work Phone: [facility] Start: 01-08-2024 End: 77-00-2586jxajgyokjoUL Fernanda Concepcion Work Phone: [facility] Work Phone: Start: 01-08-2024 End: 86-33-3544Mvyzaab encounter procedureMD Fernanda Concepcion Work Phone: [facility] [place] [facility] Work Phone: Start: 07-41-5488Uegsmkbnqu RecurringMD Fernanda Concepcion Work Phone: [facility] Start: 12-28-2023 End: 73-25-6292frexxwrenlOH Fernanda Concepcion Work Phone: [facility] Work Phone: Start: 12-28-2023 End: 15-10-3423Qiduinu encounter procedureMD Fernanda Concepcion Work Phone: [facility] Work Phone: Start: 14-90-7217Wfhfhrszct RecurringMD Ferreiraia Jamey Work Phone: [facility] Start: 12-25-2023 End: 85-73-8607Svunhfk encounter procedureMD Fernanda Concepcion Work Phone: [facility] Gastroenterology Work Phone: Start: 12-10-2023 End: 20-28-9703okiqwvhrglBO Fernanda Concepcion Work Phone: [facility] Work Phone: Start: 12-10-2023 End: 99-54-4783Iaexyoa encounter procedureMD Fernanda Concepcion Work Phone: [facility] Work Phone: Start: 12-04-2023 End: 66-23-2199grnxnyfzmdGC Fernanda Concepcion Work Phone: [facility] Work Phone: Start: 12-04-2023 End: 74-85-9898Bqahzkn encounter procedureMD Fernanda Concepcion Work Phone: [facility] [place] [facility] Work Phone: Start: 11-22-2023 End: 50-55-3445Gfezudi encounter procedureMD Fernanda Concepcion Work Phone: [facility] Work Phone: Start: 68-64-3827Zxs-patient / Non-visitMD Fernanda Concepcion Work Phone: [facility] Work Phone: Start: 10-26-2023 End: 20-34-6045Welndi outpatient visit 15 minutesFredric H Marco DO Work Phone: [facility] GENSComment on above:Right upper quadrant pain (Primary Dx)Start: 10-23-2023 End: 65-86-5336gxwvfmltcuYQ Fernanda Concepcion Work Phone: [facility] Work Phone: Start: 10-23-2023 End: 46-04-8772Ssccguz encounter procedureMD Fernanda Concepcion Work Phone: [facility]Nuc [facility] [place] Work Phone: Start: 10-08-2023 End: 59-81-7108hhuixwwaxwTP Marcia E Braun Work Phone: [facility] Work Phone: Start: 10-08-2023 End: 15-92-4127Flfguvn encounter procedureMD Fernanda Concepcion Work Phone: [facility]-Lab [facility] [place] Work Phone: Start: 86-75-8386Bnbwezgmj encounterMarcastillo Lamas [facility] ClinicStart: 09-14-2023 End: 58-85-3312wxxikjuuzlVY Marcia E Braun Work Phone: [facility] Work Phone: Start: 09-14-2023 End: 49-52-2116Dcdsxae encounter procedureMD Fernanda Concepcion Work Phone: [facility]-Lab [facility] Work Phone: Start: 09-13-2023 End: 99-31-8403xcscolcylyKdydxc Braun Other [facility] Other Start: 31-38-1804Wfnnfjpii encounterFernanda Lamas [facility] ClinicStart: 09-05-2023 End: 82-83-2661afypbvmjcfUK Marcia E Braun Work Phone: [facility] Work Phone: Start: 09-05-2023 End: 22-28-2889Gjkzpym encounter procedure Fernandakarin Concepcion Work Phone: [facility]-Nuc [facility] Work Phone: Start: 09-04-2023 End: 24-00-7671fkwblvaqhlFstjv Bailey Other [facility] Other Start: 89-07-8954Fghzvc outpatient visit 15 minutes [facility] [place] OrthopedicsStart: 09-04-2023 End: 08-40-2148Xtxsquf encounter procedureMD Fernanda Concepcion Work Phone: [facility] [place] [facility] Start: 69-40-1272Paqilbv encounter procedureMD Fernanda Concepcion Work Phone: [facility]-Start: 08-31-2023 End: 42-27-0978jayaqvimccPX Marcia E Braun Work Phone: [facility] Work Phone: Start: 08-31-2023 End: 90-69-7184Zwzfxfh encounter procedureMD Fernanda Concepcion Work Phone: [facility]-Ultrasound [facility] [place] Work Phone: Start: 08-27-2023 End: 25-19-8808wevzskekvvQE Fernanda Concepcion Work Phone: [facility] Work Phone: Start: 08-27-2023 End: 22-02-5372Quyvcrhxdx RecurringMD Fernanda Concepcion Work Phone: [facility]-Physical Therapy [address] RdStart: 82-04-9706Jfswumlwmg RecurringMD Fernanda Concepcion Work Phone: [facility]-Physical Therapy [address] RdStart: 08-24-2023 End: 64-71-8976hmrlsvzthyIjgptj Braun Other [employer] Other Start: 91-03-3664Pfrueaqrb encounterFernanda Lamas [facility] [place]start: 08-20-2023 End: 17-91-5572xewzgcykpeOtsyrs Braun Other [employer] Other Start: 83-18-8279Jeaqdm outpatient visit 15 minutes Fernanda Lamas [facility] ClinicStart: 08-20-2023 End: 89-71-8556Wbpbqkw encounter procedureMD Fernanda Concepcion Work Phone: [facility] Work Phone: Start: 08-06-2023 End: 75-91-1726wrbvrxdqkvMZ Marcia E Braun Work Phone: [facility] Work Phone: Start: 08-06-2023 End: 94-73-5519Wdmhrrq encounter procedureMD Fernanda Concepcion Work Phone: [facility]-Electrodiagnostics Work Phone: Start: 08-01-2023 End: 08-84-2809Tuireji encounter procedureMD Fernanda Concepcion Work Phone: [facility]-CT Scan [facility] [place] Work Phone: Start: 70-80-6499Nvyxvsltyd RecurringMD Fernanda Concepcion Work Phone: [facility]-Physical Therapy [address] RdStart: 07-18-2023 End: 06-53-4938bsysyveiwdNhpndr Sharonda Other [facility] Other Start: 70-11-1060Fzytcb consultation new/estab patient 60 minSherif SharondaFPG Pain ManagementStart: 07-18-2023 End: 53-45-7541Pkwinjb encounter procedureMD Fernanda Concepcion Work Phone: [facility] Work Phone: Start: 07-13-2023 End: 45-64-1521kkrzujdjthWxihyw Braun Other [facility] Other Start: 31-96-8044Vfsilealg encounterMarcastillo ConcepcionJuly [facility] [place]landstart: 07-03-2023 End: 96-43-5606msgulyhfsgJfvddv Braun Other [facility] Other Start: 61-63-6253Ileyznpoc encounterMarcia JameyGeorgetown [facility]al [facility] ClinicStart: 51-59-8145uudemauxyiZZNahun Jimenez PERRYFacility:JAREK OrtezuskyStart: 80-97-3017tnqnakotfjJG-C JENNIFER E PERRYFacility:JAREK [place] Start: 06-04-2023 End: 57-03-3355ukvwkjwsmdEfkgyl Braun Other [employer] Other Start: 25-62-8628Zajnsmzxx encounterFernanda [facility] ClinicStart: 05-31-2023 End: 66-32-7461cmyneirjrvHmdoyd Braun Other [facility] Other Start: 72-25-9690Epgjxemez encounterAmecastillo Gilliam [facility] ClinicStart: 60-10-2423llcofkxyovPO-C GIANNA Jimenez PERRYFacility:EU [place]uskyStart: 05-25-2023 End: 30-44-4488rgssfbmobaVF Marcia E Braun Work Phone: [facility] Work Phone: Start: 05-25-2023 End: 93-02-2173Iigywmc encounter procedureMD Frenanda Concepcion Work Phone: [facility]-Lab [facility] [place] Work Phone: Start: 05-16-2023 End: 77-33-2300cjbswokkedNZ-C GIANNA Jimenez PERRYFacility:EU [place]kyStart: 05-16-2023 End: 76-66-7720Jfhfdzw encounter procedureJENNIFER E EJ [facility] Start: 05-11-2023 End: 40-14-1816kwlrtqhnoaSaoeop Braun Other [facility] Other Start: 97-02-5668Hvtsbej evaluation of patient and reportFernanda [facility] ClinicStart: 15-89-5786Vhwuqhkpk encounter Fernanda NeliaJuly Gilliam [facility] ClinicStart: 05-09-2023 End: 44-80-8490hegkxykjaoFU-C GIANNA Jimenez PERRYFacility:EU [place]kyStart: 05-09-2023 End: 11-98-2108Ksogzfp encounter procedureJENNIFER E EJ [facility] Start: 71-91-1638nybxiavgsqXN-C JENNIFER PERRY Facility:EU [facility]Start: 05-02-2023 End: 80-85-3143rhztzzqwvaFN-C GIANNA Jimenez PERRYFacility:EU [place]kyStart: 05-02-2023 End: 17-48-2203Aqikdqw encounter procedureJENNIFER E EJ [facility] Start: 04-25-2023 End: 57-94-4175jijvaqkgrkFP-Odalys KAPLANFacility:Critical access hospitalmirthayStart: 04-25-2023 End: 62-62-1813Umqwjzi encounter procedureJENNIFER E EJ [facility] Start: 04-19-2023 End: 10-93-5244gltqrkboblVfqnrijm Mane Other [employer] Other Start: 00-00-1096Wwuhvbhdi encounterBenjarani [facility] ClinicStart: 04-06-2023 End: 30-94-5651dhfcefunrjAC Marcia E Braun Work Phone: [facility] Work Phone: Start: 04-06-2023 End: 85-97-6864Bsejzmg encounter procedureMD Fernanda Concepcion Work Phone: [facility] [place] Work Phone: Start: 03-30-2023 End: 29-96-7601kneqyyvtlnTjbeee Braun Other [employer] Other Start: 08-75-5304Oqyiwkphc for general adult medical examination without abnormal findingsMarcia BraunFPG Ball [facility] ClinicStart: 84-10-7132Ydjapnry 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 est patient 40-64yrsMarckarin Gilliam [facility] ClinicStart: 02-23-2023 End: 96-58-8074thzcaeibafOpdyhd Concepcion Other [facility] Other Start: 35-09-4159Eavvdm outpatient visit 15 minutes Fernanda [facility]am [facility] ClinicStart: 12-25-2022 End: 00-64-1493brohqyfbupXgtcch Jamey Other [employer] Other Start: 15-48-6635Eoebtswfs encounterFernanda [facility] ClinicStart: 12-21-2022 End: 46-40-2319zybwsaaabiYG FERNANDA CONCEPCIONFacility:R9Relmo: 12-18-2022 End: 22-19-3025mgaiqdmgpcUuqtyv Jamey Other [employer] Other Start: 15-96-3244Azmhqd outpatient visit 25 minutes Fernanda [facility]illiam [facility] ClinicStart: 12-14-2022 End: 98-86-0596vykukozrqsYF VIKRAM OSUNAFacility:L3Pksuc: 12-12-2022 End: 24-13-3638Tyyovtf encounter procedureJENNIFER E EJ [facility] start: 12-06-2022 End: 12-46-2881espprlodbiMP FERNANDA CONCEPCIONFacility:V3Znluv: 11-14-2022 End: 93-19-2416fhjxljcxdtZlscxg Concepcion Other [employer] Other Start: 83-73-9585Abzfomn evaluation of patient and reportFernanda [facility]illiam [facility] ClinicStart: 21-05-8576Ybukggkok encounter Fernanda [facility]illiam [facility] ClinicStart: 11-06-2022 End: 81-60-9924zinxbpzmtnSONERY RODRIGUEZ .[facility] Other Start: 10-31-2022 End: 36-14-0834dpksswhokfLU CATHRYN LAMBERTFacility:K8Ceguh: 10-11-2022 End: 07-64-4123mftxzeliusJyqcls Braun Other [facility] Other Start: 24-87-3465Nfevlkitu encounterMarcastillo Lamas Mane [facility] ClinicStart: 09-28-2022 End: 51-59-0682cglfywxbuuOU FERNANDA CONCEPCIONFacility:M9Ibbop: 09-20-2022 End: 28-84-8809enovozvzenGM Penola P Jones Work Phone: [facility] Work Phone: Start: 09-20-2022 End: 44-66-2681Tvhxfmfzcg RecurringMD Stevan lAicia Work Phone: [facility] Work Phone: Start: 08-17-2022 End: 74-44-7548Hcldsir encounter procedureRobert Ashish HARRIS [facility] Start: 90-50-9752Hjxxf health examinationBenjarani Gilliam Other [facility] Other Start: 33-63-4600Pmplkvbfb for general adult medical examination without abnormal findingsFernanda Concepcion Other [facility] Other Start: 07-27-2022 End: 21-02-2267gcwvqlynvcVC MARCIA E BRAUNFacility:N0Xdfcr: 04-26-2022 End: 94-98-0329Lssfunnt ReferredPHYSICIAN [facility]-Lab Main CampusStart: 37-96-2373qwuyinstthSW FERNANDA E JAMEYFacility:Z6Vmabj: 95-24-3594Fgwygrtsh for general adult medical examination without abnormal findingsDR MICHAEL Barbara JAMEYSteffany [place] HospitalStart: 03-28-2022 End: 88-22-5299gvbqmyufixXG FERNANDA Jimenez JAMEYFacility:C4Vxadg: 03-28-2022 End: 33-46-5712Netntppvt for general adult medical examination without abnormal findings FERNANDA Jimenez JAMEYFacility:A3Nrpec: 02-09-2022 End: 07-96-7752iogougwodgXU FERNANDA Jimenez JAMEYFacility:H1 Procedures DateProcedureProcedure DetailPerforming ClinicianStart: 29-81-4791Qyiws chest X-rayFernanda Concepcion MD Work Phone: Start: 64-53-0580WI SPLINTING / CASTING / STRAPPING Markel Yanez LPNStart: 99-83-8436Xzvck foot complete minimum 3 viewsRachel L [employer] SENIOR SOFTWARE QUALITY ANALYST Work Phone: Start: 67-80-5017Lwbtdwkcfzullrmk antigen ceaStevan Alicia MD Work Phone: start: 81-14-3071Xbsvautntvq tumor antigen quantitative ca 125Stevan Alicia MD Work Phone: start: 74-59-0245KCX, APT HPV,RFX 16/18,45Penorlando Alicia MD Work Phone: start: 46-57-8276AJR of headFernanda Concepcion MD Work Phone: Start: 97-26-4390M-ray of thoracic spine, three views MD Fernanda Concepcion Work Phone: Start: 08-65-9767Bcmbq dip stick/tablet rgnt non-auto w/o micrscpPenolkatie Alicia MD Work Phone: start: 67-45-6369Ivmxsmg endoscopyMD Fernanda Concepcion Work Phone: Start: 18-68-2440KligrgbrkxtbwizggvgpddxfslBS Marcia Braun Work Phone: Start: 77-84-2799Ssvpordsdjhi gastric emptying studyMD Fernanda Jamey Work Phone: Start: 17-22-0108Vluyglbukgsr imaging of liver and/or biliary tract using radioactive isotopeMD Fernanda Concepcion Work Phone: Start: 39-23-0469Unwh fast bacilli cultureMD Fernanda Concepcion Work Phone: Start: 91-61-3086Rqvjkd Culture Result 2MD Fernanda Concepcion Work Phone: Start: 38-64-8126Wsxgyb Culture Result 3MD Fernanda Concepcion Work Phone: Start: 87-46-5510Lyorrd Culture Result 4MD Fernanda Concepcion Work Phone: Start: 60-61-2480Pyyjszuhpedga of transfusion reaction MD Fernanda Concepcion Work Phone: Start: 89-45-5031Kbzsjvfo culture Fernanda Concepcion Work Phone: Start: 39-97-8118Zmllbebm SusceptibilityMD Fernanda Jamey Work Phone: Start: 35-95-5825FA bone scan whole bodyMD Fernandakarin Concepcion Work Phone: Start: 17-58-3442Uiakf X-ray of right handMD Fernanda Concepcion Work Phone: Start: 69-76-8561RN scan of gallbladderMD Fernanda Concepcion Work Phone: Start: 83-75-3715XL of chest without contrastMD Fernanda Concepcion Work Phone: Start: 10-29-8330DI pre/post mri xrayMD Fernanda Concepcion Work Phone: Start: 72-02-2051CMQ of cervical spine without contrastMD Fernanda Concepcion Work Phone: Start: 38-03-4332GeneefqrjmJazrkp RICE Start: 13-06-3516Pvmnuurjiiuvcslmb with dilation of urethral strictureJENNIFER EJ Start: 76-04-7892AodptbujnliRmikdr RICE Start: 91-26-0627VfotzciljxspZdvkif RICE Start: 09-69-1397UwdmyhxkhdDufwwa RICE Start: 82-51-7052Vjej electrosurgical excision procedureRobert RICE Start: 99-01-9242Arzcidmn of fallopian tubeRobert RICE Start: 35-42-5576Hpdviblwgq of wisdom toothRobert RICE Screening for malignant neoplasm of colonBenjamin Ball Other Screening for osteoporosisBenjamin Ball Other Plan of Treatment DateCare ActivityDetailAuthorStart: 11-17-2025 End: 41-72-5830Jjjqvoh encounter /03/2026 1:45 PM EST Office Visit [facility] [address] [place] [phone] Marta Hernandez, DO [address] [place] [address] [facility] PulmonologyStart: 07-08-2025 End: 48-83-5703Stlasmr encounter procedureNOMS SWS OBStart: 07-08-2025 End: 22-15-6908Bhuupysxwjwb / ancillary services managementNOMS SWS OBStart: 05-21-2025 End: 03-85-8019Mdfzlmk encounter mpekxpixt45/04/2025 3:30 PM EDT Office Visit [facility] [address] [place] [phone] Marta Hernandez, DO [address] [place] [address] NOMIrina [facility] PULMStart: 05-19-2025 End: 78-28-0043Tjbgree encounter efrtltplg68/02/2025 1:00 PM EDT Office Visit [facility] [place] [facility] [address] [place] [phone] Marta Hernandez, DO [address] [place] [address] ArrivedNOMS [place] [facility] Comment on above:ArrivedStart: 04-08-2025 End: 36-18-3591SYS Breast - bilateral screeningBilateral screening mammogram with tomosynthesis Imaging Routine Encounter for screening mammogram for malignant neoplasm of breast Expected: 04/08/2025, Expires: 09/02/2025[facility] Work Phone: comment on above:Expected: 04/08/2025, Expires: 09/02/2025Start: 03-18-2025 End: 33-08-5548Ttmjips encounter mjupcksyl81/02/2025 9:30 AM EDT Office Visit ED[facility]DO [facility] [address] [place] [phone] Cathryn Lambert DO [address] [place] [address] EDMUNDO PIÑAEVUEStart: 03-02-2025 End: 35-90-9525Odllesn encounter glwveisee75/16/2025 8:30 AM EDT Procedure Visit [facility] [place] [address] [address] [place] [phone] Cathryn Lambert DO [address] [place] [address] EDMUNDO LAIRDYStart: 02-10-2025 End: 47-73-8693Hdlafhr encounter procedureNOMS KILPATRICK PULMComment on above:Arrived Start: 01-19-2025 End: 73-07-6811Nfxzbjp encounter aqwecslmt25/05/2025 2:45 PM EDT Office Visit [facility] [place] [address] [place] [phone] Charles Eli, DO [address] [place] [address] NOMS ENT SANDUSKYStart: 01-15-2025 End: 86-87-6681Qyrybpz encounter ijvxxhrqm11/01/2025 3:00 PM EDT Office Visit [facility] [address] [place] [phone] Marta Hernandez, DO [address] [place] [address] NOMS PULMStart: 01-12-2025 End: 86-82-1542Snvggsxg stimulating hormoneFollicle stimulating hormone Lab Routine Asymptomatic menopausal state Expected: 01/12/2025 (Approximate), Expires: 01/12/2026[facility] Work Phone: comment on above:Expected: 01/12/2025 (Approximate), Expires: 01/12/2026Start: 01-12-2025 End: 81-25-4262Mgvffjh encounter wzudukpff72/28/2025 9:15 AM EDT Office Visit [facility] [address] [place] [phone] Stevan Alicia MD [address] [place] [address] NOMS LENI OBStart: 01-06-2025 End: 56-90-1088Jrorsyw encounter rufiexqia80/22/2025 2:20 PM EDT Office Visit EDMUNDO [place] [address] [place] [phone] Candice Palencia, ANGELICA [address] [place] [address] ArrivedANA EITANYComment on above:ArrivedStart: 01-06-2025 End: 69-26-6568KXE 2 ExtremitiesEMG 2 Extremities Neurology Routine Paresthesias Expected: 01/06/2025 (Approximate), Expires: 01/06/2026[facility] Work Phone: comment on above:Expected: 01/06/2025 (Approximate), Expires: 01/06/2026Start: 01-05-2025 End: 61-91-8375Gutnmkp encounter mkouunoas87/21/2025 9:15 AM EDT Office Visit [facility] [address] [place] [address] Stevan Alicia MD [address] [place] [address] [facility] OBStart: 01-05-2025 End: 13-93-0605Dekbbzhiviqq / ancillary services qjemyziqbq80/21/2025 8:30 AM EDT Ancillary Procedure [facility] [address] [place] [address] [facility] OBStart: 01-01-2025 End: 13-00-7962Hxxcyhi encounter vumrflimd82/17/2025 2:00 PM EDT Office Visit [facility] [address] [place] [id number] Marta Hernandez DO [address] [place] [address] [facility] PULMStart: 15-85-7926Npbssmx referralMercy Health Tiffin Hospital Work Phone: Start: 11-14-2024 End: 78-50-2609Kvzdlgk encounter swptlyorp09/28/2025 9:35 AM EST Office Visit [facility] DERM [address] [place] [address] Benny Connie Katie, HYDRAULIC PRESS SERVICER-JUVENILE COURT LIAISON [address] [place] [address] [facility] DERMStart: 08-19-2024 End: 88-33-3017ZuenaiqgeCorey Hospitaltart: 98-24-0000FbeyvukcnCorey Hospitaltart: 51-11-0589JeymtmylxCorey Hospitaltart: 08-11-2024 End: 66-72-9516LW Chest WO contrastCT chest wo IV contrast Imaging Routine Chronic obstructive pulmonary disease, unspecified COPD type (CMS/HCC) Expected: 08/11/2024, Expires: 07/01/2025[facility] Work Phone: comment on above:Expected: 08/11/2024, Expires: 07/01/2025Start: 33-73-9554BmtvtjixkCorey Hospitaltart: 08-08-2024 [facility]: 84-56-8903Ssiujmjqlj free [Mass/volume] in Serum or PlasmaCorey Hospitaltart: 07-17-2024 End: 04-60-7545Syedhoi encounter mcvaklyum49/31/2024 8:15 AM EDT Office Visit [facility] [address] [place] [address] Stevan Alicia MD [address] [place] [address] [facility] OBStart: 07-03-2024 End: 35-13-7999Dvcrieg encounter alxsusbym68/17/2024 2:45 PM EDT Office Visit [facility] [address] [place] [address] Stevan Alicia MD [address] [place], [place] [id number] [facility] OBStart: 07-03-2024 End: 93-01-8845Uyaywtdgowdod metabolic 2000 panel - Serum or PlasmaComprehensive metabolic panel Lab Routine Amenorrhea Expected: 07/03/2024 (Approximate), Expires: 07/03/2025[facility] HealthcareComment on above:Expected: 07/03/2024 (Approximate), Expires: 07/03/2025Start: 07-03-2024 End: 99-03-9778Phuulrel stimulating hormoneFollicle stimulating hormone Lab Routine Amenorrhea Thyroid disorder screening Expected: 07/03/2024(Approximate), Expires: 07/03/2025[facility] HealthcareComment on above:Expected: 07/03/2024 (Approximate), Expires: 07/03/2025Start: 07-03-2024 End: 99-82-0499Aeufy 1996 panel - Serum or PlasmaLipid panel Lab Routine Amenorrhea Expected: 07/03/2024 (Approximate), Expires: 07/03/2025[facility] HealthcareComment on above:Expected: 07/03/2024 (Approximate), Expires: 07/03/2025Start: 07-03-2024 End: 77-42-7944Opbgvmdvsjvr / ancillary services /17/2024 2:00 PM EDT Ancillary Procedure [facility] [address] [place] [address] [phone] SWS OBStart: 07-03-2024 End: 41-25-0807Lqpbcjf D 1,25 dihydroxyVitamin D 1,25 dihydroxy Lab Routine Amenorrhea Expected: 07/03/2024 (Approximate), Expires: 07/03/2025[facility] HealthcareComment on above:Expected: 07/03/2024 (Approximate), Expires: 07/03/2025Start: 07-01-2024 End: 69-29-6660Gavctjx encounter sukuwmdhf79/15/2024 3:15 PM EDT Office Visit [facility] [address] [place] [address] Marta Hernandez DO [address] [place] [address] [facility] PULMComment on above:ArrivedStart: 03-17-2024 [facility]: 36-13-4553TwskywhnpCorey Hospitaltart: 12-20-2023 End: 84-11-7921Eczvcgw encounter voeqjcqlg19/04/2024 3:45 PM EDT Office Visit [facility] [address] [place] [address] Marta Hernandez, [address] [place] [address] [facility] PULMStart: 12-12-2023 End: 20-29-6786Ryvgahj encounter uxjqsqaok69/27/2024 9:45 AM EDT Office Visit [facility] [address] [place] [address] Stevan Alicia MD [address] [place] [address] [facility] OBStart: 12-12-2023 End: 92-15-8667Zdhqodlplgdb / ancillary services bgqblqsfry34/27/2024 8:30 AM EDT Ancillary Procedure [facility] [address] [place] [address] [facility] OBStart: 11-13-2023 End: 81-04-3737Ubygged encounter rvwozjwcd94/27/2024 9:25 AM EST Office Visit [facility] DERM [address] [place] [address] Connie Zapata, HYDRAULIC PRESS SERVICER-RADHA [address] [place] [address] [facility] DERMStart: 72-66-0470Lfkwahtugxnt imaging of liver and/or biliary tract using radioactive isotopeNM hepatobiliary w pharmMarietta Osteopathic Clinic CenterStart: 30-21-8404XirfdqokbCorey Hospitaltart: 51-01-5994Nmda Fast Bacilli Culture & SmearAcid Fast Bacilli Culture & SmearCorey Hospitaltart: 81-37-5896Yhsrry Culture Result 1Fungal Culture Result [address] [place], [place] [address]tart: 72-29-7510Mtieriry CultureMycology CultureSelect Medical [facility] Start: 22-21-2620Mwjijyvi cultureFungal Culture Result 1FOhioHealthtart: 39-05-8354Wetfqepir culture of sputumCorey Hospitaltart: 06-63-7746XpaadpspnCorey Hospitaltart: 97-93-1860PH bone scan whole bodyNM bone scan whole bodyCorey Hospitaltart: 38-96-3105CpuaytsgbCorey Hospitaltart: 40-63-5912ZitzdkkdcCorey Hospitaltart: 33-55-8586HnigkbebmCorey Hospitaltart: 53-66-6849JlaoiihhzCorey Hospitaltart: 74-77-1935JfmvbnkdiCorey Hospitaltart: 38-23-0766WjpuyzpjwSelect Medical [facility] Rehabilitation Hospital - DublinBacteria identified in Unspecified specimen by Aerobe culture [facility] DublinCBC panel - Blood by Automated countCBC Lab Routine Amenorrhea Ordered: 07/03/2024[facility] HealthcareComment on above:Ordered: 07/03/2024efuroxime free [Mass/volume] in Serum or [facility] HealthComprehensive metabolic 2000 [facility] or Parkview HealthEndomysial antibody IgA levelSelect Medical Ohiohealth Rehabilitation Hospital - DublinEstradiolEstradiol Lab Routine Amenorrhea Ordered: 07/03/2024[facility] HealthcareComment on above:Ordered: 07/03/2024Ferritin [Mass/volume] in Serum or [facility] HealthFungus identified in Unspecified specimen by [facility] HospitalGliadin peptide IgA Ab [Units/volume] in [facility] TroyGliadin peptide IgG Ab [Units/volume] in [facility] TroyHSV NAAHSV CATRACHTIO Lab Routine Vaginal discharge Ordered: 07/03/2024[facility] HealthcareComment on above: Ordered: 07/03/2024IgA [Mass/volume] in Serum or [facility] HealthMayo miscellaneous testMayo miscellaneous test Lab Routine Vaginal discharge Ordered: 07/03/2024[facility] HealthcareComment on above:Ordered: 07/03/2024Microscopic observation [Identifier] in Unspecified specimen by Gram stainSelect Medical Ohiohealth Rehabilitation Hospital - DublinMicroscopic observation [Identifier] in Unspecified specimen by SmearSelect Medical Ohiohealth Rehabilitation Hospital - DublinMycobacterium sp identified in Unspecified specimen by Organism specific cultureSelect Medical Ohiohealth Rehabilitation Hospital - DublinNuSwab Vaginitis Plus (VG+)NuSwab Vaginitis Plus (VG+) Microbiology Routine Vaginal discharge Ordered: 07/03/2024[facility] HealthcareComment on above:Ordered: 07/03/2024atient EducationColon polyps Hemorrhoids (DC) Gastritis (DC) Know your [facility] Work Phone: [facility] referralMer[facility] Health [facility]in [facility] Work Phone: SENDOUT TEST MISCELLANEOUS LABCORPSENDOUT TEST MISCELLANEOUS [facility]P Lab Routine Screening for malignant neoplasm of cervix Encounterfor gynecological examination without abnormal finding Ordered: 07/03/2024[facility] HealthcareComment on above:Ordered: 07/03/2024Tissue transglutaminase IgA Ab [Units/volume] in [facility] Tissue transglutaminase IgG Ab [Units/volume] in [facility] TroyXR Cervical spine 3 [facility] Foot - right GE 3 [facility] Knee - right 4 [facility] Thoracic spine 3 [facility] Immunizations Immunization DateImmunizationNotesCare QpuvisxwPkeecyuz81-68-0755tyafjnvmv virus vaccine, split virus (incl. purified surface antigen)Charles Gilliam Other [employer] Other [id number] virus vaccine, unspecified formulationRobert RICE [facility] Fouxtxie66-84-7419Rjwneyrsw, injectable, Madin Kenner Canine Kidney, preservative free, quadrivalentFredric Itzagustín DO Work Phone: [facility] JoplinVahqswkdei53-24-9183oxvjqtkyj virus vaccine, split virus (incl. purified surface antigen)Charles Ball Other [facility] Other [id number] virus vaccine, unspecified formulationRobert RICE [facility]08-30-2021influenza, injectable, quadrivalent, preservative freeFredric Itzkowitz DO Work Phone: [facility] JoplinLszxunmlhw21-85-4008tvnisrp toxoid, reduced diphtheria toxoid, and acellular pertussis vaccine, adsorbedRobert RICE [facility]09-24-2019influenza virus vaccine, unspecified formulationRobert RICE [facility]09-24-2019influenza, injectable, quadrivalent, preservative freeFredric Itzkowitz DO Work Phone: [facility] JoplinYqevmrjoch65-56-5836fvlycdnpp virus vaccine, unspecified formulationRobert RICE [facility] [place] 149172-15-2018Influenza, injectable, Madin Aleena Canine Kidney, preservative free, quadrivalentFredric Itzkowitz DO Work Phone: [facility] JoplinCqccbliihw99-68-6872ertompnpm, injectable, quadrivalent, preservative freeFredric Itzkowitz DO Work Phone: [facility]oplinVbwauyogkd96-08-8894bhtfotpyk virus vaccine, unspecified formulationRobert RICE [facility] 149170-04-2016influenza, injectable, quadrivalent, preservative freeFredric Itzkowitz DO Work Phone: [facility] Jrpnjkqyry10-01-9476hqgipnh and diphtheria toxoids, adsorbed, preservative free, for adult use (5 Lf of tetanus toxoid and 2 Lf of diphtheria toxoid)Charles Gilliam Other [facility] Payers DatePayer CategoryPayerPolicy [id number] [employer] MED[place] [place] [id number] 2021-Present [address] [place] [id number] 2021Medicaid (Managed Care)[employer] [employer] [id number] 2..1.343280.3.57[id number] 2..1.366319.3.57[id number] 2..1.232268.3.579.2.46889-64-0103Zkqlnda3012040 2..1.102861.3.579.2.43538-40-3932Eahcrhc4635817 2..1.387669.3.57[id number] 2.16.840.1.128693.3.579.2.58978-19-3553Xdxyrck7680255 2.16.840.1.836154.3.579.2.92091-37-9902Eqilpek5580935 2.16.840.1.683518.3.579.2.62214-35-5603Cyuhxuy7350169 2.16.840.1.942781.3.579.2.47048-17-7207Hhzgftp2901062 2.840.1.635493.3.579.2.99459-62-2972Ewdjxnk58322040 2.840.1.811449.3.579.2.58178-22-2659Yncsytw45811371 2.840.1.765584.3.579.2.93650-68-6064Yluxrvf58176836 2.840.1.507156.3.579.2.90742-45-3490Fuuqjps89359574 2.840.1.418262.3.579.2.71550-50-0555Nnctjsj15363873 2.840.1.919550.3.579.2.96831-97-8668Uuyxgps23785753 2.840.1.680438.3.579.2.31757-46-2450Rndvyzq09463752 2..840.1.633122.3.579.2.13368-87-0464Rfxmgwm95503906 2.840.1.803411.3.579.2.78636-05-8036Bnwihqm83002160 2..840.1.160336.3.579.2.97909-22-1813Qljozcg62917655 2.16840.1.224177.3.579.2.83454-98-1980Vmivxab09542836 2..840.1.235847.3.579.2.041780-52-2594Chxoguo81826467 2.16.840.1.586393.3.579.2.036729-25-7632Jlbmenx30354055 2..0.1.171044.3.579.2.475793-52-3968Ehoyhsg62266313 2..840.1.316530.3.579.2.511678-45-5511Odesckf0313420 2.0.1.356308.3.579.2.352336-83-1525Mwhoplk1194655 2.0.1.078636.3.579.2.446928-26-0968Ygweqhs1447064 2.0.1.124855.3.579.2.864836-66-8514Ovpkuqc1432565 2.0.1.560581.3.579.2.102469-05-1594Ndaovpg2226732 2.0.1.841113.3.579.2.069521-74-8398Jsoxnsp8158331 2.0.1.564571.3.579.2.1259 [id number] [id number]-lwml-1l02io16323v06-73-1927Xcqw-llo111893370Ymfdgeq [id number] h8k81z20-2io1-6o60-47hj-48174l94cw5fNkvqrrg75841647 2.16.840.1.945372.3.579.2.923Kisgwtn65079520 2.840.1.665344.3.579.2.531 Whpjnnf11967806 2.840.1.818961.3.579.2.195Cwozagw97026096 2.16.840.1.661930.3.579.2.682Madjphe93526806 2.16.840.1.777204.3.579.2.531 [id number] 2.16.840.1.273576.3.579.2.605Fqvdtpe96172234 2.16.840.1.119020.3.579.2.531 Social History DateTypeDetailFacilityStart: 03-79-9797Tmtuejm smoking status NHISCurrent some day smokerCorey Hospitaltart: 58-58-7162Zjt Assigned At [facility] Main Campustart: 07-18-2022 End: 87-60-4294Savqvzs smoking status NHISSmoker (finding)[facility] Hospitaltart: 08-09-2022 End: 03-24-5357Lwyyxfv smoking statusLight tobacco smoker (finding)[facility] BellevueStart: 10-11-2023 End: 15-44-9916Xwa Assigned At [facility] CenterTobacco smoking statusNeverExec[facility] [place] Start: 06-14-2023 End: 42-72-2052Fswbylq smoking status NHISSmokes tobacco dailyNOMS Healthcare History of tobacco useCigarette SmokerNOMS HealthcareStart: 06-14-2023 End: 00-44-3221Gkugcuziel smoked current (pack per day) - Ynkhgqzo3JVHW HealthcareStart: 06-14-2023 End: 06-51-4213Qkfuvbv use and exposureSmokeless tobacco non-userNOMS Healthcare Start: 10-11-2023 End: 87-78-2288Mqktqqc intakeLifetime non-drinker (finding)[facility] HealthcareStart: 86-45-5702Jhisollge87DZPI HealthcareStart: 68-92-2993Orpksqe Commentcaffeine intake: 2-3 cups per day of coffee, soda/popNOMS HealthcareStart: 31-42-7609Gog Assigned At BirthNot on [facility] HealthcareStart: 08-04-2024 End: 02-79-3338DgdAvtiou (finding)[facility] DublinNEGATED: Highlighted [facility] Medical Equipment Procedure CodeEquipment CodeEquipment Original TextEquipment IdentifierDates Capsule endoscopy, for patency of lumen evaluationVideo capsule endoscopy system ()[id number]([id number] FDAStart: 03-17-2024 Goals DatePatient GoalDesired Activity/State Functional Status LdyqSrlaqwrcmoJmnobiFdahkzyx87-36-6169Ipsbmnwufi StatusFairfield [facility] Center06-28-2024Functional StatusFairfield Medical Center05-15-2024 Functional StatusN/AFCincinnati [facility]08-30-2023Functional StatusN/A [facility]08-23-2023Functional StatusN/A[facility]08-16-2023 Functional StatusN/A[facility] 49-51-3643Qvqkmciyjt StatusN/AExec[facility]03-28-2023Functional StatusN/A[facility]12-01-2022Functional StatusN/AExec[facility] Clinical Notes 07-19-2018 to 06-08-2025 Note Date & CwygNgmqYfdqlxrw33-21-7773 Telephone encounter Note* Telephone Encounter - Debbi Keller LPN - 06/08/2025 10:32 AM EDT asking for refill of Iron polysaccharides 180 mg REMY 01/12/25 last CBC 07/03/24 Hgb 11.1, Hct 33.7 [facility]linAlcxdjovat12-53-9564 Miscellaneous Notes* Telephone Encounter - Debbi Keller LPN - 06/08/2025 10:32 AM EDT asking for refill of Iron polysaccharides 180 mg REMY 01/12/25 last CBC 07/03/24 Hgb 11.1, Hct 33.7 documented in this encounterMercy Hospital JoplinYlzovbyjwh68-49-2073 History of Present illness Narrative* Marta Hernandez, [...] sinus drainage and does currently use an uoae-ziu-lircdby antihistamine. 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 07/18/2023 Allergies Anemia Anxiety Arthritis of carpometacarpal (CMC) joint of right thumb 12/28/2023 Bipolar II disorder (HCC) 07/18/2023 Bowel obstruction ([facility]) 1994 Chicken pox Chronic allergic rhinitis 07/18/2023 Chronic maxillary sinusitis Chronic vaginitis 07/18/2023 SANGITA I (cervical intraepithelial neoplasia I) 07/18/2023 Contusion of right foot 12/28/2023 COPD (chronic obstructive pulmonary disease) ([facility]) De Quervain's tenosynovitis, right 12/28/2023 Depression Dysmenorrhea [...] incontinence 07/18/2023 Peroneal tendinitis, right leg 12/28/2023 ([facility]) x2 Raynaud's syndrome Restless leg syndrome 12/28/2023 [...] COPD. Marta Hernandez DO documented in this encounterMercy Hospital JoplinUbwkamgsmv98-42-7273 Evaluation note* Diagnosis Onset Date Resolution Status Admit Date 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 ne acuteAugust 2024 10:10amBack pain, thoracicacuteAugust 2024 10:10am Chronic painacuteAugust 2024 10:10amAllodyniaacuteOctober 2024 10:25amDegenerative disc disease, cervicalacuteOctober 2024 10:25am InsomniaacuteOctober 2024 10:25amMigraine headache without auraacute July 06, 2025 10:25amMyalgiaacuteOctober 2024 10:25amNeck painacute July 06, 2025 10:25amParesthesiaacuteOctober 2024 10:25am [facility] Work Phone: 1(939) 506-878008-06-2025 Evaluation note* Diagnosis Onset Date Resolution Status [...] 9:58amTrigger finger, right index fingeracuteOctober 2024 9:58am [facility] Work Phone: 1(675) 768-165308-06-2025 Evaluation note* Diagnosis Onset Date Resolution Status [...] pain, thoracicacuteOctober 2024 10:13amChronic painacuteOctober 2024 10:13am [facility] Work Phone: 1(550) 360-785308-06-2025 Evaluation note* Diagnosis Onset Date Resolution Status [...] 10:13amBack pain, thoracicacuteOctober 2024 10:13amChronic painacuteOctober 2024 10:13amRight medial knee painacute July 17, 2025 9:11am [facility] Work Phone: 1(786) 768-474905-27-2025 History of Present illness Narrative* Marta Hernandez, DO - 02/10/2025 3:45 PM EDT Images from [...] blood work has been ordered by the insulation supervisor. 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 07/18/2023 Allergies Anemia Anxiety Arthritis of carpometacarpal (CMC) joint of right thumb 12/28/2023 Bipolar II disorder ([facility]) 07/18/2023 Bowel obstruction ([facility]) 1995 Chicken pox Chronic allergic rhinitis 07/18/2023 Chronic maxillary sinusitis Chronic vaginitis 07/18/2023 SANGITA I (cervical intraepithelial neoplasia I) 07/18/2023 Contusion of right foot 12/28/2023 COPD (chronic obstructive pulmonary disease) ([facility]) De Quervain's tenosynovitis, right 12/28/2023 Depression ([facility]) Dysmenorrhea 07/18/2023 Endometriosis of uterus 08/04/2009 Foot fracture, right 2019 broken right foot Genital herpes simplex 09/22/2009 GERD (gastroesophageal reflux disease) H/O tubal ligation 2009 Headache History of medical problems routine blood donor- every 56 days per pt History of medical treatment 2000 diagnostic lap History of menorrhagia 12/28/2023 HSV-2 infection Hypertension ([facility]) Insomnia, persistent 12/28/2023 Iron deficiency anemia 12/28/2023 [...] Chronic obstructive pulmonary disease, unspecified COPD type ([facility]) - albuterol HFA (ProAir HFA) 90 mcg/act inhaler; Inhale 2 puffs every 4 (four) hours if needed for wheezing - Vgkbocxwyuv-Ahsrtajtn-Qjmbxi (Trelegy Ellipta) 100-62.5-25 MCG/ACT aerosol powder ; [...] at today's office visit. She is unsure whethershe has any apneas or snoring as she [...] COPD. Marta Hernandez DO documented in this encounterMercy Hospital JoplinVgdcsvxicq29-20-8330 Evaluation note* Diagnosis Onset Date Resolution Status [...] painacuteJuly 2024 9:41amToe pain, leftacuteJuly 2024 9:41am [facility] Work Phone: 1(864) 734-788205-23-2025 Evaluation note* Diagnosis Onset Date Resolution Status [...] leftacuteJuly 2024 9:41amRight foot painacuteJuly 2024 8:24am [facility] Work Phone: 1(302) 718-287605-23-2025 Evaluation note* Diagnosis Onset Date Resolution Status [...] of cervical spineacuteAugust 2024 10:10amBack pain, thoracicacute [place] 2024 10:10amChronic painacuteAugust 2024 10:10am [facility] Work Phone: 1(996) 533-302305-23-2025 Progress noteUnMethodist [facility] [place] [address] Cancer Center Note Signed Patient: Katy Banuelos MR#: [id number] : 1975 Acct:[id number] Age/Sex: 50 / F Type: DEP AMB [...] 1 week prior to 6month visit with SENIOR SOFTWARE QUALITY ANALYST. CHEMO PLAN Treatment Plan Iron Sucrose (Venofer) [...] mg PO BID PRN 30 days vitamin L64-sjreh acid 0.5-1 mg 1 tab PO DAILY Gastrointestinal Is the patient taking opioids for pain control?: No Falls Fall Precaution Measures Taken: Patient in chair Nurse's Note: Patient is here today for a follow up visit and go over labs [facility] Medical History Medical History Raynauds disease Chronic [...] 01/27/25 Iron Saturation 46.7 % (20-50) 01/27/25 11:01/27/25 Ferritin 30.5 ng/mL (11.0-306.8) 01/27/25: 5 Dictated By: JIL Mary DD/ [id number] Signed By: 02/06/25 0948 [facility]05-02-2025 History of Present illness Narrative * Markel [...] boot. Ref # [id number] documented in this encounterMercy Hospital JoplinRsokripywh38-37-6594 History of Present illness Narrative* Stevan Alicia [...] though her weight is currently stable. 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 07/18/2023 Allergies Anemia Anxiety Arthritis of carpometacarpal (CMC) joint of right thumb 12/28/2023 Bipolar II disorder ([facility]) 07/18/2023 Bowel obstruction ([facility]) 1995 Chicken pox Chronic allergic rhinitis 07/18/2023 Chronic maxillary sinusitis Chronic vaginitis 07/18/2023 SANGITA I (cervical intraepithelial neoplasia I) 07/18/2023 Contusion of right foot 12/28/2023 COPD (chronic obstructive pulmonary disease) ([facility]) De Quervain's tenosynovitis, right 12/28/2023 Depression ([facility]) Dysmenorrhea 07/18/2023 Endometriosis of uterus 08/04/2009 Foot fracture, right 2019 broken right foot Genital herpes simplex 09/22/2009 GERD (gastroesophageal reflux disease) H/O tubal ligation 2008 Headache History of medical problems routine blood donor- every 56 days per pt History of medical treatment 2000 diagnostic lap History of menorrhagia 12/28/2023 HSV-2 infection Hypertension ([facility]) Insomnia, persistent 12/28/2023 Iron deficiency anemia 12/28/2023 [...] steps yesterday). Valtrex refilled documented in this encounterMercy Hospital [id number] Instructions* Patient Instructions* Stevan Alicia MD - [...] cyst is slightly larger documented in this [facility]04-11-2025 Evaluation note* Diagnosis Onset Date Resolution [...] 7:59amMyalgiaacuteJune 2024 7:59amOther skin changesacuteJune 2024 11:29am [facility] Work Phone: 1(545) 952-258104-11-2025 Evaluation note* Diagnosis Onset Date Resolution Status [...] 7:59amMyalgiaacuteJune 2024 7:59amOther skin changesacuteJune 2024 11:29amAllodyniaacute Leena 2024 9:29amDegenerative disc disease, cervicalacuteJuly 2024 9:29amInsomniaacuteJuly 2024 9:29amMigraine headache without auraacuteJuly 2024 9:29amMyalgiaacuteJuly 2024 9:29amNeck painacuteJuly 2024 9:29amParesthesiaacuteJuly 2024 9:29amBack pain, thoracicacuteJuly 2024 10:08amChronic painacuteJuly 2024 10:08amMyalgiaacuteJuly 2024 10:08am [facility] Work Phone: 1(698) 446-450503-27-2025 Evaluation note* Diagnosis Onset Date Resolution Status Admit Date Back pain, thoracic acuteMarch 2024 10:01amEye abnormalitiesacuteMarch 2024 10:01am Insomnia, persistentacuteMarch 2024 10:01amMenopausal flushingacuteMarch 2024 10:01amTMJ (dislocation of temporomandibular joint)acuteMarch 2024 10:01amArthritis of carpometacarpal (CMC) joint of right thumbacuteApril 2024 9:40amArthritis of right handacuteApril 2024 9:40amDe Quervain's tenosynovitis, rightacuteApril 2024 9:40amRight wrist painacute Maxine 2024 9:40amToe pain, leftacuteApril 2024 9:40amBlood donor chronicMay 2024 8:56amHistory of menorrhagiachronicMay 2024 8:56am Iron deficiency anemiachronicMay 2024 8:56am [facility] Work Phone: 1(770) 296-322403-27-2025 Evaluation note* Diagnosis Onset Date Resolution Status Admit Date Back pain, thoracic acuteMarch 2024 10:01amEye abnormalitiesacuteMarch 2024 10:01am Insomnia, persistentacuteMarch 2024 10:01amMenopausal flushingacuteMarch 2024 10:01amTMJ (dislocation of temporomandibular joint)acuteMarch 2024 10:01amArthritis of carpometacarpal (CMC) joint of right thumbacuteApril 2024 9:40amArthritis of right handacuteApril 2024 9:40amDe Quervain's tenosynovitis, rightacuteApril 2024 9:40amRight wrist painacute Maxine 2024 9:40amToe pain, leftacuteApril 2024 9:40amBlood donor chronicMay 2024 8:56amHistory of menorrhagiachronicMay 2024 8:56am Iron deficiency anemiachronicMay 2024 8:56amBack pain, thoracicacuteJune 2024 7:59amChronic painacuteJune 2024 7:59amMyalgiaacuteJune 2024 7:59am [facility] Work Phone: 1(667) 562-560402-28-2025 Evaluation note* Diagnosis Onset Date Resolution Status [...] painacuteApril 2024 9:40amToe pain, leftacuteApril 2024 9:40am [facility] Work Phone: 1(138) 556-715001-17-2025 Evaluation note* Diagnosis Onset Date Resolution Status Admit Date Arthritis of carpometacarpal (CMC) joint of right thumb acuteJanuary 2024 8:56amArthritis of right handacuteJanuary 2024 8:56amDe Quervain's tenosynovitis, rightacuteJanuary 2024 8:56amRight wrist painacuteJanuary 2024 8:56amArthritis of carpometacarpal (CMC) joint of right thumbacuteFebruary 2024 9:18amArthritis of right handacute November 14, 2024 9:18amDe Quervain's tenosynovitis, rightacuteFebruary 2024 9:18amRight wrist painacuteFebruary 2024 9:18am [facility] Work Phone: 1(809) 725-480101-17-2025 Evaluation note* Diagnosis Onset Date Resolution Status [...] wrist painacute December 26, 2024 9:40amToe pain, leftacuteApr2024 9:40am [facility] Work Phone: 1(215) 937-251910-31-2024 History of Present illness Narrative* Lise Benavides [...] Pap smear of vagina Adult celiac disease ([facility]) 12/28/2023 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 07/18/2023 Allergies Anemia Anxiety Arthritis of carpometacarpal (CMC) joint of right thumb 12/28/2023 Bipolar II disorder ([facility]) 07/18/2023 Bowel obstruction ([facility]) 1995 Chicken pox Chronic allergic rhinitis 07/18/2023 Chronic maxillary sinusitis Chronic vaginitis 07/18/2023 SANGITA I (cervical intraepithelial neoplasia I) 07/18/2023 Contusion of right foot 12/28/2023 De Quervain's tenosynovitis, right 12/28/2023 Depression ([facility]) Dysmenorrhea 07/18/2023 Endometriosis of uterus 08/04/2009 Foot fracture, right 2019 broken right foot Genital herpes simplex 09/22/2009 H/O tubal ligation 2009 Headache History of medical problems routine blood donor- every 56 days per pt History of medical treatment 2000 diagnostic lap History of menorrhagia 12/28/2023 HSV-2 infection Hypertension ([facility]) Insomnia, persistent 12/28/2023 Iron deficiency anemia 12/28/2023 [...] and insomina. [facility]. documented in this encounterMercy Hospital [id number] Instructions* Patient Instructions* Stevan Alicia MD - 07/17/2024 8:15 AM EDT Images from the original note were not included. documented in this [facility]10-28-2024 Telephone encounter Note* Telephone Encounter - Elvia Wheatley - 07/14/2024 10:11 AM EDT . [id number] Miscellaneous Notes* Telephone Encounter - Elvia Wheatley - 07/14/2024 10:11 AM EDT . documented in this [facility]10-24-2024 History of Present illness Narrative* Stevan Alicia MD - 07/10/2024 2:39 PM EDT Positive culture documented in this [facility]10-17-2024 History of Present illness Narrative* Stevan Alicia [...] of colonoscopy and was referred to a waiter/waitress bar for a vein-like issue near the anal area. The waiter/waitress bar advised her to leave it alone. The [...] and experiences was provided. RT ovary cyst- [id number] 1.3 [id number] 1.6 LT ovary cyst- [id number] 1.2 [id number] 1.06 See chart for report. 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 07/18/2023 Allergies Anemia Anxiety Arthritis of carpometacarpal (CMC) joint of right thumb 12/28/2023 Bipolar II disorder ([facility]) 07/18/2023 Bowel obstruction ([facility]) 1995 Chicken pox Chronic allergic rhinitis 07/18/2023 Chronic maxillary sinusitis Chronic vaginitis 07/18/2023 SANGITA I (cervical intraepithelial neoplasia I) 07/18/2023 Contusion of right foot 12/28/2023 De Quervain's tenosynovitis, right 12/28/2023 Depression [place] Dysmenorrhea 07/18/2023 Endometriosis of uterus 08/04/2009 Foot fracture, right 2019 broken right foot Genital herpes simplex 09/22/2009 H/O tubal ligation 2009 Headache History of medical problems routine blood donor- every 56 days per pt History of medical treatment 2000 diagnostic lap History of menorrhagia 12/28/2023 HSV-2 infection Hypertension ([facility]) Insomnia, persistent 12/28/2023 Iron deficiency anemia 12/28/2023 Menorrhagia with irregular cycle 07/18/2023 Migraine ([facility]) Mixed incontinence 06/30/2024 Mixed stress and urge [...] cysts: - Multiple ovarian cysts with dimensions: [id number], [id number], [id number], and a larger cyst measuring 17p42gv - Plan: a) Monitor the size and [...] or irregular menstrual bleeding. 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 07/18/2023 Allergies Anemia Anxiety Arthritis of carpometacarpal (CMC) joint of right thumb 12/28/2023 Bipolar II disorder ([facility]) 07/18/2023 Bowel obstruction ([facility]) 1994 Chicken pox Chronic allergic rhinitis 07/18/2023 Chronic maxillary sinusitis Chronic vaginitis 07/18/2023 SANGITA I (cervical intraepithelial neoplasia I) 07/18/2023 Contusion of right foot 12/28/2023 De Quervain's tenosynovitis, right 12/28/2023 Depression ([facility]) Dysmenorrhea 07/18/2023 Endometriosis of uterus 08/04/2009 Foot fracture, right 2019 broken right foot Genital herpes simplex 09/22/2009 H/O tubal ligation 2008 Headache History of medical problems routine blood donor- every 56 days per pt History of medical treatment 2000 diagnostic lap History of menorrhagia 12/28/2023 HSV-2 infection Hypertension ([facility]) Insomnia, persistent 12/28/2023 Iron deficiency anemia 12/28/2023 Menorrhagia with irregular cycle 07/18/2023 Migraine ([facility]) Mixed incontinence 06/30/2024 Mixed stress and urge [...] Chronic obstructive pulmonary disease, unspecified COPD type ([facility]) - tiotropium (Spiriva Respimat) 2.5 MCG/ACT inhaler; [...] COPD. Marta Hernandez DO documented in this encounterMercy Hospital [id number] Evaluation note* Diagnosis Onset Date Resolution Status [...] pain, thoracicacuteOctober 2023 8:37amBloatingacuteOctober 2023 8:37amInsomnia, persistentacute July 14, 2024 8:37amRaynauds diseaseacuteOctober 2023 8:37amTMJ (dislocation of temporomandibular joint)acuteOctober 2023 8:37amBlood donorchronicNovember 2023 10:22amHistory of menorrhagiachronicNovabrazo [facility] 2023 10:22amIron deficiency anemiachronicNovabrazo [facility] 2023 10:22am Restless leg syndromechronicSaint [facility] 2023 10:22am [facility] Work Phone: 1(779) 387-919204-09-2024 Evaluation note* Author Spencer Valadez [facility] DublinAuthoredApril 2023 11:28am48 y/o female referred to the GI clinic for evaluation of abdominal pain. Patient reports intermittent upper abdominal pain and bloating for 2-3 years. + iron deficiency anemia on iron supplementation for 3 years. + NSAIDs use + early satiety Will arrange for EGD/Colonoscopy then will determine the need to increase omeprazole 40 mg daily [facility] Work Phone: 1(172) 432-361202-09-2024 History of Present illness Narrative* Dio Lara, [...] 07/18/2023 Allergies Anemia Anxiety Bipolar II disorder ([facility]) 07/18/2023 Bowel obstruction ([facility]) 1995 Chicken pox Chronic allergic rhinitis 07/18/2023 Chronic maxillary sinusitis Chronic vaginitis 07/18/2023 SANGITA I (cervical intraepithelial neoplasia I) 07/18/2023 Depression ([facility]) Dysmenorrhea 07/18/2023 Endometriosis of uterus 08/04/2009 Foot fracture, right 2019 broken right foot Genital herpes simplex 09/22/2009 H/O tubal ligation 2008 Headache History of medical problems routine blood donor- every 56 days per pt History of medical treatment 2000 diagnostic lap HSV-2 infection Hypertension ([facility]) Menorrhagia with irregular cycle 07/18/2023 Migraine ([facility]) Mixed stress and urge incontinence 07/18/2023 x2 [...] TOOTH EXTRACTION 2015 WISDOM TOOTH EXTRACTION 1995 FAMILY HISTORY Family [...] I'll see her PRN. documented in this encounterMercy Hospital [id number] Evaluation note* Encounter Date Diagnosis Assessment Notes Treatment Notes Treatment Clinical Notes Aug, Adenomyosis, gallbladder (ICD-10 - K82.8) Aug,RUQ pain (ICD-10 - R10.11) [employer] Other 12-19-2023 Evaluation note* Encounter Date Diagnosis [...] follow up in 4 weeks for reevaluation. [employer] Other 12-04-2023 Evaluation note* Encounter Date Diagnosis [...] dentist info given to pt. OARRS reviewed. [employer] Other 11-01-2023 Evaluation note* Encounter Date Diagnosis [...] pain (ICD-10 - G89.29) UDS performed through [facility] today, will await confirmatory results. Jul,OtherMedical decision [...] negative findings were considered in medical decision-making. [employer] Other 10-17-2023 Evaluation note* Encounter Date Diagnosis Assessment Notes Treatment Notes Treatment Clinical Notes Jun, TMJ arthralgia (ICD-10 - M26.629 ) [employer] Other 09-14-2023 Evaluation note* Encounter Date Diagnosis Assessment Notes Treatment Notes Treatment Clinical Notes May, Low TSH level (ICD-10 - R79.89) May,Unexplained weight gain (ICD-10 - R63.5) [employer] Other 08-30-2023 Hospital Discharge instructions Patient Education [...] require a prescription. You can also purchase ehad-pow-evbzwjr medicines. Medicines may have nicotine in them [...] and encouragement. Call telephone quitlines, such as 7-503-USBH-NOW, reach out to support groups, or work [...] provider. Document Revised: 08/25/2022 Document Reviewed: 08/25/2022 [employer] Patient Education 2022 [employer]. 05/16/2023 09:22:48 Kegel Exercises Kegel Exercises Kegel [...] provider. Document Revised: 01/12/2022 Document Reviewed: 01/12/2022 [employer] Patient Education 2022 [employer]. Follow Up Care 04/17/2023 08:34:14 With:GIANNA KAPLAN PA-C, URL Address: [facility] [address] [place] [address] [phone] When: Unknown Comments:PFPT #4 on 05/30/23 (tentative) [facility] 08-25-2023 Evaluation note* Encounter Date Diagnosis Assessment Notes Treatment Notes Treatment Clinical Notes Apr, TMJ arthralgia (ICD-10 - M26.629 ) [employer] Other 08-25-2023 Evaluation note* Encounter Date Diagnosis Assessment Notes Treatment Notes Treatment Clinical Notes Apr, Seasonal allergic rhinitis, unsp ecified trigger (ICD-10 - J30.2) [employer] Other 08-16-2023 Hospital Discharge instructions Patient Education [...] provider. Document Revised: 01/12/2022 Document Reviewed: 01/12/2022 [employer] Patient Education 2022 [employer]. 05/02/2023 10:42:42 Urinary Incontinence Urinary Incontinence Urinary [...] nerve stimulation). ?For women, using a medical support assistant to prevent urine leaks. This is a [...] right after experiencing incontinence. General instructions Take yfwg-ycj-qwiozcm and prescription medicines only as told by [...] important. Where to find more information [employer] [place] of Diabetes and Digestive and Kidney Diseases: www.niddk.nih.gov [place] [employer]: www.urologyhealth.org Contact a health care [...] provider. Document Revised: 04/08/2021 Document Reviewed: 04/08/2021 [employer] Patient Education 2022 [employer]. Follow Up Care 04/17/2023 08:30:21 With:EJ ELLIS, GIANNA Jimenez, URL Address: [address] [place] [address] [phone] When: Unknown Comments:PFPT #3 on 05/09/23 [facility] 08-09-2023 Hospital Discharge instructions Patient Education [...] relieve pelvic muscle tension or spasms. Take jjha-hej-ophvigv and prescription medicines only as told by [...] provider. Document Revised: 01/11/2022 Document Reviewed: 01/11/2022 [employer] Patient Education 2022 [employer]. Follow Up Care 04/17/2023 08:27:59 With:EJ ELLIS, GIANNA Jimenez, URL Address: [address] [place] [address] [phone] When: Unknown Comments:PFPT #2 on 05/02/23 [facility] 07-14-2023 Evaluation note* Encounter Date Diagnosis Assessment [...] states it is stable on present med [employer] Other 06-09-2023 Evaluation note* Encounter Date Diagnosis Assessment Notes Treatment Notes Treatment Clinical Notes Feb, Right-sided chest pain (ICD-10 - R07.9) Pt concerned about cardio and pulm causes. Vitals are stable will recheck with test ordered. 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 Refilled med Feb,hronic cough (ICD-10 - R05.3)Refilled med. [employer] Other 04-03-2023 Evaluation note* Encounter Date Diagnosis [...] smoking, benefits to quiting and options available [employer] Other 02-28-2023 Evaluation note* Encounter Date Diagnosis Assessment Notes Treatment Notes Treatment Clinical Notes Oct, Seasonal allergic rhinitis, unsp ecified trigger (ICD-10 - J30.2) [employer] Other 01-04-2023 Progress note Author Jana Ridley [facility] September 20, 2022 4:41pmNote Date/TimeJan2022 11:53[facility] at [address] [address] Hem/Onc Follow Up Note - OP Signed Patient: Katy Banuelos MR#: [id number] : 1975 Acct:[id number] Age/Sex: 47 / F Type: REG RCR Copies to: MD Stevan Luna MD-NOMS~ Subjective Date/Time of Service: Date of Service: 09/20/2022 Time of Service: 11:52 Chief Complaint: Patient is here for a 2 month follow up, with labs for review. No concerns voiced at this time. HPI: 09/20/2022: Katy is here for follow-up and lab review after receiving 3 infusions of Xyndeom186 mg IV 07/25 through 08/04/2022. She does [...] her results. (2) Restless leg syndrome [facility] Apodaca reported that the [...] for coordination of care (as documented) and byha-pw-xbzk counseling of patient and/or family. Dictated By: Jana Ridley MD DD/ 1152 Signed By: <Electronically signed by MD Jana Ridley> 09/20/22 1646 [facility] Work Phone: 1(889) 408-857312-01-2022 Hospital Discharge instructions Patient Education 08/17/2022 10:54:19 [...] reconstructed. Follow these instructions at home: Take kyyf-iio-bgtdzah and prescription medicines only as told by [...] 09/29/2016 Document Revised: 04/16/2019 Document Reviewed: 04/16/2019 [employer] Patient Education 2020 [employer]. Follow Up Care 08/09/2022 12:14:18 With:GIANNA KAPLAN PA-C, URL Address: [address] [address] When:6 weeks [facility] 11-01-2022 Consult note Author Kye [facility] July 18, 2022 4:40pmNote Date/TimeNov2021 4:30pmFormerly [facility] at [address] [address] Hem/Onc Consult Note - OP Signed Patient: Katy Banuelos MR#: [id number] : 1975 Acct:[id number] Age/Sex: 47 / F Type: REG RCR [...] son with established celiac diseaseaccording to her [facility] - Medical History Medical History: Medical History [...] for coordination of care (as documented) and zplk-qd-ymfv counseling of patient and/or family. Dictated By: Kye Apodaca MD DD/ 1627 Signed By: <Electronically signed by Kye Apodaca MD> 07/18/22 1640 [facility] Work Phone: 1(875) 416-603411-02-2018 Evaluation note* Diagnosis Onset Date Resolution Status Admit Date Acute maxillary sinusitis, unspecified July 19, 2018 acuteOctober 2023 8:37amBack pain, thoracicacuteOctober 2023 8:37am BloatingacuteOctober 2023 8:37amInsomnia, persistentacuteOctober 2023 8:37amRaynauds diseaseacuteOctober 2023 8:37amTMJ (dislocation of temporomandibular joint)acuteOctober 2023 8:37amBlood donorchronicNovember 2023 10:22amHistory of menorrhagiachronicNovember 2023 10:22amIron deficiency anemiachronicNovember 2023 10:22amAcute maxillary sinusitis, unspecifiedJuly 19, 2018acuteDecember 2023 9:48amBack pain, thoracic acuteDecember 2023 9:48amInsomnia, persistentacuteDecember 2023 9:48am TMJ (dislocation of temporomandibular joint)acuteDecember 2023 9:48am Arthritis of carpometacarpal (CMC) joint of right thumbacuteJanuary 2024 8:56amArthritis of right handacuteJanuary 2024 8:56amDe Quervain's tenosynovitis, rightacuteJanuary 2024 8:56amRight wrist painacuteJanuary 2024 8:56am [facility] Work Phone: 1(346) 633-924711-02-2018 Evaluation note* Diagnosis Onset Date Resolution Status Admit Date Acute maxillary sinusitis, unspecified July 19, 2018 acuteDecember 2023 9:48amBack pain, thoracicacuteDecember 2023 9:48am Insomnia, persistentacuteDecember 2023 9:48amTMJ (dislocation of temporomandibular joint)acuteDece2023 9:48amArthritis of carpometacarpal (CMC) joint of right thumbacuteJanuary 2024 8:56am Arthritis of right handacuteJanuary 2024 8:56amDe Quervain's tenosynovitis, rightacuteJanuary 2024 8:56amRight wrist painacuteJanuary 2024 8:56am [facility] Work Phone: 1(667) 669-724311-02-2018 Evaluation note* Diagnosis Onset Date Resolution Status Admit Date Acute maxillary sinusitis, unspecified July 19, 2018 acuteDecember 2023 9:48amBack pain, thoracicacuteDecember 2023 9:48am Insomnia, persistentacuteDecember 2023 9:48amTMJ (dislocation of temporomandibular joint)acuteDeceer 2023 9:48amArthritis of carpometacarpal (CMC) joint of right thumbacuteOctober 03, 2024 8:56am Arthritis of right handacuteJanuary 2024 8:56amDe Quervain's tenosynovitis, rightacuteJanuary 2024 8:56amRight wrist painacuteJanuary 2024 8:56amArthritis of carpometacarpal (CMC) joint of right thumbacute November 14, 2024 9:18amArthritis of right handacuteFebruary 2024 9:18am De Quervain's tenosynovitis, rightacuteFebruary 2024 9:18amRight wrist painacuteFebruary 2024 9:18am [facility] Work Phone: Evaluation + Plan note Future Appointments Appointment Date:11/20/2022 10:30:00 AM Scheduled Provider:Willem HARRIS MD Location:[facility] Appointment Type:URO Office Visit [facility] Evaluation + Plan note Future Appointments Appointment Date:05/02/2023 10:30:00 AM Scheduled Provider:GIANNA KAPLAN PA-C Location:[facility] Appointment Type:URO Procedure 30 min Appointment Date:05/09/2023 09:30:00 AM Scheduled Provider:GIANNA KAPLAN PA-C Location:[facility] Appointment Type:URO Procedure 30 min Appointment Date:05/16/2023 09:30:00 AM Scheduled Provider:GIANNA KAPLAN PA-C Location:[facility] Appointment Type:URO Procedure 30 min Appointment Date:05/30/2023 09:30:00 AM Scheduled Provider:GIANNA KAPLAN PA-C Location:[facility] Appointment Type:URO Procedure 30 min Appointment Date:06/13/2023 09:30:00 AM Scheduled Provider:GIANNA KAPLAN PA-C Location:[facility] Appointment Type:URO Procedure 30 min [facility] evaluation + Plan note Future Appointments Appointment Date:05/09/2023 09:30:00 AM Scheduled Provider:GIAN[facility]AN [facility]-C [facility]O Procedure 30 min Appointment Date:05/16/2023 09:30:00 AM Scheduled Provider:GIANNA KAPLAN PA-C Location:[facility] Appointment Type:URO Procedure 30 min Appointment Date:05/30/2023 09:30:00 AM Scheduled Provider:GIANNA KAPLAN PA-C Location:[facility] Appointment Type:URO Procedure 30 min Appointment Date:06/13/2023 09:30:00 AM Scheduled Provider:GIANNA KAPLAN PA-C Location:[facility] Appointment Type:URO Procedure 30 min [facility] Evaluation + Plan note Future Appointments Appointment Date:05/16/2023 09:30:00 AM Scheduled Provider:GIANNA KAPLAN PA-C Location:[facility] Appointment Type:URO Procedure 30 min Appointment Date:05/30/2023 09:30:00 AM Scheduled Provider:GIANNA KAPLAN PA-C Location:[facility] Appointment Type:URO Procedure 30 min Appointment Date:06/13/2023 09:30:00 AM Scheduled Provider:GIANNA KAPLAN PA-C Location:[facility] Appointment Type:URO Procedure 30 min [facility] Evaluation + Plan note Future Appointments Appointment Date:03/14/2024 01:45:00 PM Scheduled Provider:Girma Delgado MD Location:.Cardiology Clinic Appointment Type:Cardiology Follow Up (FT) Future Scheduled Tests Laboratory* Sedimentation Rate Automated 01/30/24 * Comprehensive Metabolic Panel 01/30/24 * C-Reactive Protein 01/30/24 * Lipid Panel 01/30/24 Radiology* [facility]ments Appointment Date:03/14/2024 01:45:00 PM Scheduled Provider:Girma Delgado [facility] ([facility] assessment information available [facility] Work Phone: Evaluation note* Diagnosis Onset Date Resolution Status Adult celiac disease acuteIron deficiencyacuteIron deficiency anemiaacuteRestless leg syndromeacute [facility] Work Phone: evaluylpar noteNo InformationNowestern [facility] Other Evalusegpk note* Diagnosis Right upper quadrant pain- Primary Abdominal pain, right upper quadrant documented in this encounter [facility]* Diagnosis Onset Date Resolution Status Injury of thumb, right acuteArthritis of carpometacarpal (CMC) joint of right thumbacuteArthritis of right handacuteDe Quervain's tenosynovitis, rightacuteRight hand painacuteRight wrist painacute [facility] Work Phone: Evaluation note* Diagnosis Onset Date Resolution Status Arthritis of carpometacarpal (CMC) joint of right thumb acuteArthritis of right handacuteDe Quervain's tenosynovitis, rightacuteRight wrist painacuteArthritis of carpometacarpal (CMC) joint of right thumbacute Arthritis of right handacuteDe Quervain's tenosynovitis, rightacuteRight wrist painacuteArthritis of carpometacarpal (CMC) joint of right thumbacuteArthritis of right handacuteDe Quervain's tenosynovitis, rightacuteRight wrist painacute [facility] Work Phone: Evaluation note* Diagnosis Onset Date Resolution Status Arthritis of carpometacarpal (CMC) joint of right thumb acuteArthritis of right handacuteDe Quervain's tenosynovitis, rightacuteRight wrist painacuteAbdominal painacuteInsomnia, persistentacuteWellness examination acuteArthritis of carpometacarpal (CMC) joint of right thumbacuteArthritis of right handacuteDe Quervain's tenosynovitis, rightacuteRight wrist painacute [facility] Work Phone: Evaluation note* Diagnosis Onset Date Resolution Status Abdominal pain acuteInsomnia, persistentacuteWellness examinationacuteArthritis of carpometacarpal (CMC) joint of right thumbacuteArthritis of right handacuteDe Quervain's tenosynovitis, rightacuteRight wrist painacuteArthritis of carpometacarpal (CMC) joint of right thumbacuteArthritis of right handacuteDe Quervain's tenosynovitis, rightacuteRight wrist painacute [facility] Work Phone: Evaluation note* Diagnosis Chronic obstructive pulmonary disease, unspecified COPD type ([facility] Primary Cigarette smoker Tobacco use disorder documented [...] tenosynovitis, rightacuteRight wrist painacuteBack pain, thoracicacuteBloatingacuteRaynauds diseaseacute [facility] Work Phone: Evaluation note* Diagnosis Mood [...] without hemorrhageMedical HistoryAcute pain of right footSurgical [id number] HistoryHYSTEROSCOPY, ABLATIONHospitalization HistorySEE SURGICAL [employer] [facility] Other History general Narrative - Reported* Type Description Date Medical History TMJ arthralgia Medical HistoryInsomnia, persistentMedical HistoryAnxietyMedical HistoryAnemia Medical HistoryMuscle spasm of shoulder regionMedical HistoryAbnormal weight lossMedical HistoryElevated MCVMedical HistoryBack pain, thoracicMedical History Dysuria-frequency syndromeMedical HistoryVitamin D deficiencyMedical History External hemorrhoidMedical HistoryHTN (hypertension)Medical History Gastroesophageal reflux disease with esophagitis without hemorrhageMedical HistoryAcute pain of right footSurgical [id number] History HYSTEROSCOPY, ABLATIONHospitalization HistorySEE SURGICAL [employer] [facility] Other History general Narrative - Reported* Type Description Date Medical History TMJ arthralgia Medical HistoryInsomnia, persistentMedical HistoryAnxietyMedical HistoryAnemia Medical HistoryMuscle spasm of shoulder regionMedical HistoryAbnormal weight lossMedical HistoryElevated MCVMedical HistoryBack pain, thoracicMedical History Dysuria-frequency syndromeMedical HistoryVitamin D deficiencyMedical History External hemorrhoidMedical HistoryHTN (hypertension)Medical History Gastroesophageal reflux disease with esophagitis without hemorrhageMedical HistoryAcute pain of right footMedical HistoryCOPDSurgical [id number] Surgical HistoryHYSTEROSCOPY, ABLATIONHospitalization HistorySEE SURGICAL [employer] [facility] Other Hospital course Narrative No data available for this section [facility] Hospital Discharge instructions No data available for this section [facility] progress note No data available for this section [facility] Progress note Author Jana Ridley [facility] September 20, 2022 4:41pmNote Date/TimeJanuary 2022 11:53[facility] at [address] [address] Hem/Onc Follow Up Note - OP Signed Patient: Katy Banuelos MR#: [id number] : 1975 Acct:[id number] Age/Sex: 47 / F Type: REG RCR Copies to: MD Stevan Luna MD-[facility]~ Subjective Date/Time of Service: Date of Service: 09/20/2022 Time of Service: 11:52 Chief Complaint: Patient is here for a 2 month follow up, with labs for review. No concerns voiced at this time. HPI: 09/20/2022: Katy is here for follow-up and lab review after receiving 3 infusions of Phyypgr441 mg IV 07/25 through 08/04/2022. She does [...] her results. (2) [facility] leg [facility] Apodaca reported that the [...] for coordination of care (as documented) and [id number] counseling of patient and/or family. Dictated By: Jana Ridley MD DD/ 1152 Signed By: <Electronically signed by MD Jana Ridley> 09/20/22 1641 [facility] Work Phone: Progress note Author Jeanettealban Jimenes [facility] Date/TimeMay 2024 9:45[facility] [place] [address] Cancer Center Note Signed Patient: Katy Banuelos MR#: [id number] : 1975 Acct:[id number] Age/Sex: 50 / F Type: DEP AMB [...] 1 week prior to 6month visit with SENIOR SOFTWARE QUALITY ANALYST. CHEMO PLAN Treatment Plan Iron Sucrose (Venofer) [...] mg PO BID PRN 30 days vitamin Z75-gbila acid 0.5-1 mg 1 tab PO DAILY Gastrointestinal Is the patient taking opioids for pain control?: No Falls Fall Precaution Measures Taken: Patient in chair Nurse's Note: Patient is here today for a follow up visit and go over labs [facility] Medical History Medical History Raynauds disease Chronic [...] <Electronically signed by JIL Jimenes> 02/06/25 0948 [facility] Work Phone: Reason for referral (narrative)* Consultation (Routine) - Pending ReviewSpecialtyDiagnoses / ProceduresReferred By Contact Referred To ContactGastroenterology Diagnoses Right upper quadrant pain Procedures FL OFFICE/OUTPATIENT NEW HIGH MDM 60 MINUTES Dio Lara DO [address] [facility] [address] [place] [address] Alverto Salinas MD [address] [facility] [address] [place] [address] Referral IDStatusReasonStart DateExpiration DateVisits RequestedVisits [id number] Review Specialty Services Required / RINA SILVERIO [facility] HospitalRejulien for referral (narrative)No reason for referral information [facility] Work Phone: Chief Complaint and Reason [...] ÁLVAREZ LOOSE BODY RT THUMB medication check upReason [...] 04 10:22am Acute maxillary sinusitis, unspecified D ec2023 9:48am [...] October 03 8:56am De Quervain's tenosynovitis, right Sep 2024 8:56am Right wrist pain October 03, [...] 9:18am Arthritis of right hand November 14 9:18am De Quervain's tenosynovitis, right Febru 2024 [...] December 11, 2024 10: 01am Eye abnormalities March 27th, 2025 10: 01am Insomnia, persistent December 11, 2024 [...] finger, right index finger Octob 2024 9:58am Chief Complaint Admit Date 1 [...] Chronic pain July 13, 2025 1 0:13am Chief Complaint Admit Date 1 MONTH April 22, 2025 10: 10am Amb Documentation June 30, 2025 1 0:09am Follow up July 06, 2025 1 0:25am 3 MONTHS July 07, 2025 9 :58am 2 MONTHS July 13, 2025 1 0:13am Injured Right Knee July 17, 2025 9 :11am Reason for Visit Admit Date Arthritis of [...] Chronic pain July 13, 2025 1 0:13am Right medial knee pain July 17 9:11am Family History Relationship Condition Age at Onset [...] 1 Adenomyosis, gallbla dder (K82.8) Referral Organization [facility] Infoflow jenna Referring Provider First Name Fernanda Referring Provider Last Name Jamey Referring Provider Specialty [facility] [employer] Referred Organization [facility] Referred Provider Dio Lara Referred Address ,[place], [place],[address] Referred Provider Specialty Surgery Referral Priority Routine General Notes Teri Gray 04:49:56 PM >received today, multiple attachments made, notes locked, referral faxed Reason *06/07 TSH 0.35 , unexplained weight loss. Diagnosis 1 Low TSH level (R79.8 9) Referral Organization [facility] PowerPlan jenna Referring Provider First Name Fernanda Referring Provider Last Name Jamey Referring Provider Specialty [facility] [employer] Referred Organization [facility] Referred Provider Candelario Johansen Referred Address [address] [place] [address],[place], [place],[address] Referred Provider Specialty Internal Med icine Referral [...] Start: December 25, 2023 End: December 25, 2023Imad Asaad , MDAttending ProviderActiveStart: December 25, 2023 End: December 25, 2023 Team Status: Inactive Member Role Status Chung Concepcion MD Primary Care Provider Active Start: December 28, 2023 End: December 28, 2023Imad Asaad , MDAttending ProviderActiveStart: December 28, 2023 End: December 28, 2023 Team Status: Inactive Member Role Status Chung Concepcion MD Primary Care Provider Active Start: January 08, 2024 End: January 07ollyvonne R Calvisabel , MDAttending ProviderActiveStart: January 08, 2024 End: January 08, 2024 Team Status: Inactive Member Role Status Chung Concepcion MD Primary Care Provider Active Start: January 29, 2024 End: January 28olleen R Calvey , MDAttending ProviderActiveStart: January 29, 2024 End: January 29, 2024 Team Status: Inactive Member Role Status Chung Concepcion MD Primary Care Provider Active Start: February 12, 2024 End: February 11ollyvonne R Jennifer , MDAttending ProviderActiveStart: February 12, 2024 End: February 12, 2024 Team Status: Inactive Member Role Status Chung Concepcion MD Primary Care Provider Active Start: March 04, 2024 End: March 04, 2024Imad Asaad , MDAttending ProviderActiveStart: March 04, 2024 End: March 04, 2024 Team Status: Active Member Role Status Chung Concepcion MD Primary Care Provider Active Start: March 04, 2024 Imad Asaad , MDAttending Provider, Other ProviderActiveStart: March 04, 2024 Team Status: Active Member Role Status Chung Concepcion MD Primary Care Provider Active Start: March 05, 2024 Lise Castellano ProviderActiveStart: March 05, 2024 Team Status: Inactive Member Role Status Chung Concepcion MD Primary Care Provider Active Start: March 17, 2024 End: March 17, 2024Imad Asaad , MDAttending ProviderActiveStart: March 17, 2024 End: March 17, 2024 Team Status: Active Member Role Status Dates Fernanda Concepcion MD Primary Care Provider Active Start: November 16, 2023 Taylor Kirkland RMAAttenclinton ProviderActiveStart: November 16, 2023 Team Status: Inactive Member Role Status Dates Fernanda Concepcion MD Primary Care Provider Active Start: November 22, 2023 End: November 22, 2023Prashant Mitchell DOAttending ProviderActiveStart: November 22, 2023 End: November 22, 2023 Team Status: Inactive Member Role Status Dates Fernanda Concepcion MD Primary Care Provider Active Start: December 04, 2023 End: December 03hannah Rodriguez MDAttlewis ProviderActiveStart: December 04, 2023 End: December 04, [...] FAMILY Primary Care Provider Active Dio Lara DOAttlewis ProviderActive Team Status: Active Member Role Status Dates PHYSICIAN NO FAMILY Primary Care Provider Active Team Status: Active Member Role Status Dates Kye Apodaca MD Attending Provider Active Stevan Alicia , CHRISSYeferring ProviderActiveMarISAIAH Harrisrisnow Care ProviderActive Team Status: Inactive Member Role Status Dates Fernanda Concepcion MD Primary Care Provider, Attending Jas berkowitz Active Team Status: Inactive Member Role Status Dates Fernanda Concepcion MD Primary Care Provider Active Darrius Parikh ProviderActive Team Status: Active Member Role Status Dates Fernanda Concepcion MD Primary Care Provider Active FRANSISCO PerkinsCAttenclinton ProviderActive Team Status: Inactive Member Role Status Dates Fernanda Concepcion MD Primary Care Provider Active Darrius Gan ProviderActive Team Status: Inactive Member Role Status Dates Stefan Mcdonough MD Attending Provider Active Sta rt: July 18, 2023 End: July 18, 2023 Team Status: Inactive Member Role Status Dates Fernanda Concepcion MD Primary Care Provider Active Start: August 01, 2023 End: August 01, 2023Marta Hernandez DOAttending ProviderActiveStart: August 01, 2023 End: August 01, 2023 Team Status: Inactive Member Role Status Dates Fernanda Concepcion MD Primary Care Provider Active Start: August 06, 2023 End: August 06, 2023Marta Hernandez DOAttending ProviderActiveStart: August 06, 2023 End: August 06, 2023 Team Status: Inactive Member Role Status Dates Fernanda Concepcion MD Attending Provider Active St art: August 20, 2023 End: August 20, 2023 Team Status: Active Member Role Status Dates Fernanda Concepcion MD Primary Care Provider Active Start: August 27, 2023 ADRIANNA Perkins-Hebert ProviderActiveStart: August 27, 2023 Team Status: Inactive [...] Active Start: September 04, 2023 End: September 04donal Mitchell DOAttending ProviderActiveStart: September 04, 2023 End: September 04, 2023 Team Status: Inactive Member Role Status Chung Concepcion MD Primary Care Provider Active Start: September 05, 2023 End: September 05, 2023Marta Hernandez DOAttending ProviderActiveStart: September 05, 2023 End: September 05, 2023 Team Status: Inactive Member Role Status Chung Concepcion MD Primary Care Provider Active Start: September 14, 2023 End: September 14, 2023Marta Hernandez DOAttending ProviderActiveStart: September 14, 2023 End: September 14, 2023 Team Status: Inactive Member Role Status Chung Concepcion MD Primary Care Provider Active Start: October 08, 2023 End: October 08Cristiano Bentley ProviderActiveStart: October 08, 2023 End: October 08, 2023 Team Status: Inactive Member Role Status Chung Concepcion MD Primary Care Provider Active Start: August 27, 2023 End: August 27, 2023ADRIANNA Perkins-Hebert ProviderActiveStart: August 27, 2023 End: August 27, 2023 Team Status: Active Member Role Status Dates Fernanda Concepcion MD Primary Care Provider Active Start: October 23, 2023 Darrius Davis ProviderActiveStart: October 23, 2023 Team Status: Inactive Member Role Status Dates Fernanda Concepcion MD Primary Care Provider Active Start: October 23, 2023 End: October 23, 2023Fredcora Lara DOAttending ProviderActiveStart: October 23, 2023 End: October 23, 2023Team MemberRelationshipSpecialtyStart DateEnd Date Fernanda Concepcion MD [address] [place] [address] PCP - GeneralFamily Pbvgafqo40/30/23 Team Status: Active Member Role Status Dates Fernanda Concepcion MD Primary Care Provider Active Start: December 27, 2023 Cristiano Dumont ProviderActiveStart: December 27, 2023 Team Status: Active Member Role Status Dates Fernanda Concepcion MD Primary Care Provider Active Start: January 07, 2024 Cristiano Dumont ProviderActiveStart: January 07, 2024 Team Status: Inactive Member Role Status Dates Fernanda Concepcion MD Primary Care Provider Active Start: March 18, 2024 End: March 18ollCristiano Rose ProviderActiveStart: March 18, 2024 End: March 18, [...] Active Start: June 25, 2024 End: June 25Arie Dixoncaromont health ProviderActiveStart: June 25, 2024 End: June 25, 2024Team MemberRelationshipSpecialtyStart DateEnd Date Fernanda Concepcion MD [address] [facility] [place] [address] [facility] - [facility] Zpbqnhbu44/30/23Team MemberRelationshipSpecialtyStart Date End Date Fernanda Concepcion MD [address] [facility] [place] [address] [facility] - [facility] Yhqkqmio74/30/23Team MemberRelationshipSpecialtyStart Date End Date Fernanda Concepcion MD [address] [facility] [place] [id number] PCP - Generalmi Svgtjwbz96/30/23Team MemberRelationshipSpecialtyStart Date End Date Fernanda Concepcion MD [address] [facility] [place] [address] PCP - GeneralFami Llpcmqjb58/30/23 Team Status: Active Member Role Status Dates Fernanda Concepcion MD Primary Care Provide r, Attending Provider Active Start: July 10, 2024 Team Status: Inactive Member Role Status Dates Fernanda Concepcion MD Primary Care Provide r, Attending Provider Active Start: July 14, 2024 End: July 14, 2024Team MemberRelationshipSpecialtyStart DateEnd Date Fernanda Concepcion MD [address] [facility] [address] PCP - GeneralFamily Mlfhxaqr81/30/23Team MemberRelationshipSpecialtyStart [place] [address] [place] [address] [place] [phone] PCP - [facility]07/16/23 Team Status: Active Member Role Status Dates [...] Start: August 04, 2024 End: August 04, 2024Ute Griffin APRNAttenclinton ProviderActiveStart: August 04, 2024 End: August 04cecelia Alicia MDReferring ProviderActiveStart: August 04, 2024 End: August 04, 2024 Team Status: Active Member Role Status Dates Fernanda Concepcion MD Primary Care Provider Active Start: August 04, 2024 Ute Griffin APRNAttending ProviderActiveStart: August 04, 2024 CHRISSY Shetheferring ProviderActiveStart: August 04, 2024 Team Status: Inactive [...] 2024 Glen Trevino ProviderActiveStart: August 20, 2024 CHRISSY Shetheferring ProviderActiveStart: August 20, 2024 Team Status: Inactive Member Role Status Dates Fernanda Concepcion MD Primary Care Provider Active Start: October 03, 2024 End: October 03hannah Rodriguez MDAttending ProviderActiveStart: October 03, 2024 End: October 03, 2024 Team Status: Active Member Role Status Dates Fernanda Concepcion MD Primary Care Provider Active Start: October 14, 2024 Ute Griffin , APRNAttending ProviderActiveStart: October 14, 2024 Stevan Alciia , MDReferring ProviderActiveStart: October 14, 2024 Team [...] Active Start: November 14, 2024 End: November 14Cristiano Dixon ProviderActiveStart: November 14, 2024 End: November 14, 2024 Team Status: Inactive Member Role Status Dates Fernanda Concepcion MD Primary Care Provide r, Attending Provider Active Start: December 11, 2024 End: December 11, 2024 Team Status: Inactive Member Role Status Dates Fernanda Concepcion MD Primary Care Provider Active Start: December 26, 2024 End: December 26ollyvonne Rodriguez MDAttending ProviderActiveStart: December 26, 2024 End: December 26, 2024Team MemberRelationshipSpecialtyStart DateEnd Date Fernanda Concepcion MD [address] [place] [address] PCP - GeneralFamily Ngrebnxs26/30/23Team MemberRelationshipSpecialtyStart Date End Date Fernanda Concepcion MD [address] [place] [address] [facility] - [facility] Ehrwxdfr80/30/23Team MemberRelationshipSpecialtyStart Date End Date Fernanda Concepcion MD [address] [place] [address] PCP - [facility]07/16/23Team MemberRelationshipSpecialtyStart Date End Date Fernanda Concepcion MD [address] [facility] [place] [phone] PCP - [facility]07/16/23 Team Status: Inactive Member Role Status Dates Fernanda Concepcion MD Primary Care Provider Active Start: January 27, 2025 End: January 27, 2025Marta Hernandez DOAttending ProviderActiveStart: January 27, 2025 End: January 27, 2025 Team Status: Active Member Role Status Dates Fernanda Concepcion MD Primary Care Provider Active Start: January 27, 2025 Ute Griffin APRNAtmoises ProviderActiveStart: January 27, 2025 Stevan Alicia MDReferring ProviderActiveStart: January 27, 2025 Team MemberRelationshipSpecialtyStart DateEnd Date Fernanda Concepcion MD [address] [facility] [place] [phone] PCP - [facility]07/16/23Team MemberRelationshipSpecialtyStart Date End Date Fernanda Concepcion MD [address] [facility] [place] [address] PCP - [facility]07/16/23 Team Status: Inactive Member Role Status Dates Fernanda Concepcion MD Primary Care Provider Active Start: February 06, 2025 End: February 06jimbo Jimenes SENIOR SOFTWARE QUALITY ANALYSTBarbaraCAttending ProviderActiveStart: February 06, 2025 End: February 06, 2025CHRISSY Shetheferring ProviderActiveStart: February 06, 2025 Team Status: Inactive Member Role Status Dates Fernanda Concepcion MD Primary Care Provide r, Referring Provider Active Start: February 25, 2025 End: February 25, 2025Thomas Felter , MDAttending ProviderActiveStart: February 25, 2025 End: February 25, 2025 Team Status: Inactive Member Role Status Dates Fernanda Concepcion MD Primary Care Provider Active Start: February 25, 2025 End: February 25, 2025Carito Lunaing ProviderActiveStart: February 25, 2025 End: February 25, 2025Thmarylu Benny , MDAttending ProviderActiveStart: February 25, 2025 End: February 25, 2025 Team Status: Inactive Member Role Status Dates Fernanda Concepcion MD Primary Care Provider Active Start: March 02, 2025 End: March 02, 2025Nicelizabeth Lambert , DOAttending ProviderActiveStart: March 02, 2025 End: March 02, 2025 Team Status: Inactive Member Role Status Dates Fernanda Concepcion MD Primary Care Provider Active Start: March 03, 2025 End: March 03, 2025Fernanda Concepcion MDAttending ProviderActiveStart: March 03, 2025 End: March 03, 2025 Team Status: Active Member Role Status Dates Fernanda Concepcion MD Primary Care Provider Active Start: March 10, 2025 Fernanda Concepcion MDAttending ProviderActiveStart: March 10, 2025 Team Status: Inactive Member Role Status Chung Concepcion MD Primary Care Provider Active Start: March 18, 2025 End: March 18, 2025Nicelizabeth Lambert , DOAttending ProviderActiveStart: March 18, 2025 End: March 18, 2025 Team Status: Inactive Member Role Status Dates Fernanda Concepcion MD Primary Care Provider Active Start: March 23, 2025 End: March 23, 2025Thomas Benny MDAttending ProviderActiveStart: March 23, 2025 End: March 23, 2025 Team Status: Inactive Member Role Status Dates Fernanda Concepcion MD Primary Care Provider Active Start: March 27, 2025 End: March 27hannah Rodriguez MDAttending ProviderActiveStart: March 27, 2025 End: March 27, 2025 Team Status: Inactive Member Role Status Dates Fernanda Concepcion MD Primary Care Provider Active Start: April 02, 2025 End: April 02, 2025Fernanda Concepcion MDAttending ProviderActiveStart: April 02, 2025 End: April 02, 2025 Team Status: Inactive Member Role Status Dates Fernanda Concepcion MD Primary Care Provider Active Start: April 22, 2025 End: April 22marylu Cristiano Zapata ProviderActiveStart: April 22, 2025 End: April 22, 2025Team MemberRelationshipSpecialtyStart DateEnd Date Fernanda Concepcion MD [address] [facility] [place] [address] PCP - GeneralFamily Klgfrewc16/30/23Team MemberRelationshipSpecialtyStart Date End Date Fernanda Concepcion MD [address] [facility] ([facility] [place] [id number] PCP - Generalmi Uvdaxtxo75/30/23Team MemberRelationshipSpecialtyStart Date End Date Fernanda Concepcion MD [address] [facility] [place] [id number] PCP - Generalmi Kqyamsir11/30/23 Team Status: Active Member Role/Relationship Status Dates Fernanda Concepcion MD Primary Care Provider Active Team Status: Inactive Member Role/Relationship Status Dates Fernanda Concepcion MD Primary Care Provider Active Start: April 22, 2025 End: April 22, 2025Thmarylu Cristiano Zapata ProviderActiveStart: April 22, 2025 End: April 22, 2025 Team Status: Active Member Role/Relationship Status Dates Fernanda Concepcion MD Primary Care Provider Active Start: June 30, 2025 Rubia Choudhury ProviderActiveStart: June 30, 2025 Team Status: Inactive Member Role/Relationship Status Dates Fernanda Concepcion MD Primary Care Provider Active Start: July 06, 2025 End: July 06, 2025Cathryn Lambert DOAttlewis ProviderActiveStart: July 06, 2025 End: July 06, 2025 Team Status: Inactive Member Role/Relationship Status Dates Fernanda Concepcion MD Primary Care Provider Active Start: July 07, 2025 End: July 07Cristiano Dixon ProviderActiveStart: July 07, 2025 End: July 07, 2025 Team Status: Inactive Member Role/Relationship Status Dates Fernanda Concepcion MD Primary Care Provider Active Start: July 13, 2025 End: July 13, 2025Tad Zapata MDAmichellelewis ProviderActiveStart: July 13, 2025 End: July 13, 2025 Team Status: Inactive Member Role/Relationship Status Dates Fernanda Concepcion MD Primary Care Provider Active Start: July 17, 2025 End: July 17, 2025Cristiano Luna ProviderActiveStart: July 17, 2025 End: July 17, 2025 Goals (unrecognized section and content) Goals [...] section and content) DATE CREATED AUTHOR 06/19/2022 [facility] DATE CREATED AUTHOR AUTHOR'S ORGANIZ ATION 12/31/2022 [facility] DATE CREATED AUTHOR AUTHOR'S ORGANIZ ATION 11/30/2023 [facility] DATE CREATED AUTHOR AUTHOR'S ORGANIZ ATION 02/08/2024 [facility] DATE CREATED AUTHOR AUTHOR'S ORGANIZ ATION 02/09/2024 [facility] DATE CREATED AUTHOR AUTHOR'S ORGANIZ ATION 03/16/2024 [facility] DATE CREATED AUTHOR AUTHOR'S ORGANIZ ATION 02/12/2025 [facility] DATE CREATED AUTHOR AUTHOR'S ORGANIZ ATION 07/09/2025 [facility] EPIC REASON FOR VISIT (unrecogniz ed section and content) ReasonCommentsHIDA scan resultsReasonCommentsCOPD6 month follow upReasonComments Gynecologic ExamReasonCommentsTelevisitReasonCommentsRepeat papPatient present for repap. Patient denies any issues or complaints at this time.ReasonComments Temporomandibular Joint PainNeck PainReasonCommentsCOPD6 month follow up with chest x-rayReasonOnset DateCommentsMed Urgfot7206/08/2025 FOR RECORDS PERTAINING TO PATIENTS WHO ARE [...] BE BASED ON THE PRIMARY CLINICAL RECORDS. [facility] [employer] [facility]. provides no warranty or guarantee of the accuracy or completeness of information in this document.
[2025-07-31 13:34] LABS: Hematocrit 39.8 % (36.0-48.0); Hemoglobin 14.1 g/dL (12.0-16.0); Immature Granulocytes Abs Auto 0.03 10^3/uL (0.00-0.03); Immature Granulocytes Pct Auto 0.4 % (0.0-0.5); Lymphocytes Absolute Auto 1.8 10^3/uL (1.2-3.8); Mean Corpuscular HGB Conc 35.4 g/dL (29.9-35.2); Mean Corpuscular Hemoglobin 36.8 pg (26.7-34.0); Mean Corpuscular Volume 103.9 fL (81.0-99.0); Platelet Count 231 10^3/uL (150-450); Red Blood Count 3.83 10^6/uL (4.20-5.40); Reticulocyte Pct Auto 1.44 % (0.60-3.10); White Blood Count 8.4 10^3/uL (4.0-11.0)
[2025-07-31 13:50] LABS: Alanine Aminotransferase 28 U/L (14-59); Albumin Globulin Ratio 1.4; Albumin Level 4.0 g/dL (3.4-5.0); Alkaline Phosphatase 56 U/L (46-116); Anion Gap 7.6; Aspartate Amino Transferase 20 U/L (15-37); Blood Urea Nitrogen 16.0 mg/dL (7.0-18.0); Calcium 8.8 mg/dL (8.5-10.1); Carbon Dioxide 31.7 mmol/L (21.0-32.0); Chloride 104 mmol/L (98-107); Estimated GFR (African America >60 (>=60 mL/min/1.73m^2); Estimated GFR (Non-African Ame >60 (>=60 mL/min/1.73m^2); Globulin 2.8 g/dL; Glucose 100 mg/dL (74-106); Potassium 4.3 mmol/L (3.5-5.1); Sodium 139 mmol/L (136-145); Total Protein 6.8 g/dL (6.4-8.2)
[2025-07-31 14:09] LABS: Iron 125.0 ug/dL (50.0-170.0); Percent Iron Saturation 41.9 %; Total Iron Binding Capacity 298.0 ug/dL (250.0-450.0)
[2025-07-31 14:25] LABS: Ferritin 64.0 ng/mL (8.0-252.0); Folate 33.20 ng/mL (8.60-58.90)
[2025-08-01 04:07] LABS: Vitamin B12 852 pg/mL (232-1245)
== END 2025-07-31 13:11 | disposition home or self-care (01) ==
LOC: LAB 13:11
PROVIDERS: PCP Family Medicine; Visit Provider Nurse Practitioner Adult Health
DX: D50.9 Iron deficiency anemia, unspecified (principal)
CPT/HCPCS: 36415; 80053; 82607; 82728; 82746; 83540; 83550; 85025; 85045

== ENCOUNTER 2025-08-05 10:00 | Outpatient (RCR) | payer OTHER, SELFPAY | END 2025-08-26 07:17 | disposition home or self-care (01) | LOC: PT 10:00 | PROVIDERS: PCP Family Medicine; Visit Provider Family Medicine | DX: M25.561 Pain in right knee (principal) | CPT/HCPCS: 97014; 97035; 97110; 97161; 97535 ==

== ENCOUNTER 2025-08-17 09:48 | Outpatient (OUT) | payer OTHER, SELFPAY ==
--- OUTSIDE RECORDS SUMMARY | 2025-08-07 04:50 | XMS_ITS | Continuity of Care Document ---
Author Organization [facility] Address [address] [place] [address] Phone Care Team Providers Care Picker Packer Name Role Phone Leanne Stanford MD Primary Care Provider Elida Moreau CMA Attending Provider Nidia Bacon DO Attending Provider Destiny Rodriguez MD Attending Provider [phone] Tad Zapata MD Attending Provider Leanne Stanford MD Attending Provider [phone] Jeanette Jimenes DOPSTER-C Attending Provider Ute Griffin APRN Attending Provider [phone] Stevan Esteves MD Referring Provider Care Teams Patient Care Team Team Status: Active Member Role/Relationship Status Dates Leanne Stanford MD Primary Care Provider Active Visit Care Team Team Status: Active Member Role/Relationship Status Dates Leanne Stanford MD Primary Care Provider Active Start: June 30, 2025 Elida Moreau CMAAttending ProviderActiveStart: June 30, 2025 Visit Care Team [...] July 07, 2025 End: July 07, 2025 Visit Care Team Team Status: Inactive Member Role/Relationship Status Dates Leanne Stanford MD Primary Care Provider Active Start: July 13, 2025 End: July 13, 2025Cristiano Frausto ProviderActiveStart: July 13, 2025 End: July 13, 2025 Visit Care Team Team Status: Inactive Member Role/Relationship Status Dates Leanne Stanford MD Primary Care Provider Active Start: July 17, 2025 End: July 17, 2025Cristiano Luna ProviderActiveStart: July 17, 2025 End: July 17, 2025 Visit Care Team Team Status: Active Member Role/Relationship Status Dates Leanne Stanford MD Primary Care Provider Active Start: July 31, 2025 Jeanette Jimenes DOPSTER-CAttending ProviderActiveStart: July 31, 2025 Patient Care Team Team Status: Inactive Member Role/Relationship Status Dates Leanne Stanford MD Primary Care Provider Active Start: August 07, 2025 End: August 07jimbo Jimenes DOPSTER-CAttending ProviderActiveStart: August 07, 2025 End: August 07, 2025 Visit Care Team Team Status: Active Member Role/Relationship Status Dates Leanne Stanford MD Primary Care Provider Active Start: August 07, 2025 Ute Griffin , APRNAttending ProviderActiveStart: August 07, 2025 Stevan Esteves , MDReferring ProviderActiveStart: August 07, 2025 Chief Complaint and Reason for Visit Chief Complaint Admit Date Amb Documentation June 30, 2025 1 0:09am Follow up July 06, 2025 1 0:25am 3 MONTHS July 07, 2025 9 :58am 2 MONTHS July 13, 2025 1 0:13am Injured Right Knee July 17, 2025 9 :11am Follow Up 6 Months August 07, 2025 8:55am Iron deficiency, anemia August 07, 025 9:04am Reason for Visit Admit Date Allodynia July 06, 2025 1 0:25am Degenerative [...] Chronic pain July 13, 2025 1 0:13am Back pain, thoracic July 17, 2025 9 :11am Insomnia, persistent July 17, 2025 9:11am Right medial knee pain July 17 9:11am TMJ (dislocation of temporomandibular tsering int) July 17, 2025 9:11am Blood donor August 07, 2025 8:55am History of menorrhagia August 07 8:55am Iron deficiency anemia August 07 8:55am Allergies, Adverse Reactions, Alerts Allergen Type Severity Reaction Last Updated Verified Status No Known Allergies Allergy Unknown August 07, 2025 8:59amYesActive Social History Smoking Status Status Start Date [...] us Right hand pain December 04, 2023 10:29am Unknown Active Toe pain, left December 26, 2024 8:49am Unknown Ac tive 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ne April 22, 2025 9:43am Unknown Active Insomnia March 18, 2025 9:07am Unknown Active De Quervain's tenosynovitis, right December 04, 2023 10:31am Unknown Active Trigger finger, right index finger July 07, 2025 9:29am Unknown Active Other skin changes March 03, 2025 11:11am Unknown Active Right medial knee pain July 17, 2025 8:38am Unkno wn Active Acute maxillary sinusitis, unspecified November 22, 2023 10:51am July 19, 2018 Active Myalgia February 25, 2025 7:26am Unknown Activ e Paresthesia March 18, 2025 9:06am Unknown Active Eye pain October 15, 2024 10:47am Unknown A ctive Chronic pain November 22, 2023 10:51am Unknown Acti ve Adult celiac disease July 18, 2022 3:37pm Unknown Active Blood donor September 20, 2022 4:38pm Unknown Act christopher Migraine headache without aura March 18, 2025 9:07am U nknown Active Anxiety November 22, 2023 10:51am Unknown Acti ve Raynauds disease April 01, 2024 7:47am Unknown A ctive Wellness examination April 02, 2024 1:14pm Unknown Active Allodynia March 18, 2025 9:06am Unknown Active Restless leg syndrome July 18, 2022 3:39pm Unknow n Active Degenerative disc disease, cervical March 18, 2025 9:07am Unknown Active Bloating December 25, 2023 10:15am Unknown Acti ve TMJ (dislocation of temporomandibular joint) July 14, 2022 1:39pm Unknown Active Iron deficiency anemia July 18, 2022 3:35pm Unkno wn Active History of menorrhagia September 20, 2022 4:40pm Unknow n Active Right foot pain April 02, 2025 7:50am Unknown Ac tive Right wrist pain December 04, 2023 10:31am Unknown Active Eye abnormalities October 15, 2024 10:42am Unknown Active Neck pain March 18, 2025 9:07am Unknown Active Back pain, thoracic November 22, 2023 10:51am Unknown Active GERD (gastroesophageal reflu x disease) April 02, 2025 9:00am Unknown Active Abdominal pain December 25, 2023 10:15am Unknown Ac tive Arthritis of carpometacarpal (CMC) joint of right thumb December 04, 2023 10:29am Unknown Active Insomnia, persistent November 22, 2023 10:51am Unknown Active Arthritis of right hand December 04, 2023 10:29am Unkno wn Active Injury of thumb, right November 21, 2023 5:12pm Unknown Active Menopausal flushing December 15, 2024 1:01pm Unknown Active Iron deficiency July 18, 2022 3:33pm Unknown Active Medications Medication Status Dose Units Route Directions Qty Days Refills S tart Date Stop Date End Date Reason(s) Instructions Adherence Tramadol 50 mg tablet Discontinued 50 MG PO Three times alan ly as needed for pain 90 30 0 November 16, 2023 2:29pm January 10, 2024 1:11pmDislocation of temporomandibular joint Dislocation of jaw, unspecified side, initial encounterAlprazolam 1 mg tablet Lnujwdmcmydb6DNANOmhst at bedtime as needed for axlwp95228Iahak 2023 3:35pmJune 2023 7:33amPersistent insomnia Insomnia, unspecifiedteepee splint right thumbDiscontinued0.Route.RXQCNZGMF26 January 08, 2024 3:12pmApril 2023 1:21pmAs directedDoxycycline Hyclate 100 mg obiwgwSiwofwrrdrom480MGBZNrbtg xyssp587Jzb 2023 11:00pmJune 2023 9:15amAlprazolam 1 mg xolynkScqvofdwimlf4NMVORitik at bedtime as needed for vteir19047Peqq 2023 7:33amJuly 2023 11:19amPersistent insomnia Insomnia, unspecifiedOmeprazole 40 mg capsule,delayed release(DR/EC)Discontinued 22FZZGKklu406661Ylxp 2023 11:00pmJuly 2024 7:59amAlprazolam 1 mg xmvgzaSvagshxrxnkq0JJEDXbwne at bedtime as needed for nvrkz01354Mzks 2023 11:19amJuly 2023 8:16amPersistent insomnia Insomnia, unspecifiedTramadol 50 mg japdlaOvdnbnytaywq60PIAOEiphv times daily as needed for ywfj42141Bkdx 2023 2:49pmDecember 2023 1:19pmDislocation of temporomandibular joint Dislocation of jaw, unspecified side, sequelaAlprazolam 1 mg tabletDiscontinued1 MGPOTwice daily as needed for borgb68762Virzcv 2023 8:54pmOctober 2023 7:34amPersistent insomnia Insomnia, unspecifiedAlprazolam 1 mg lmbgtaRmjrvkpiloqf7XVDOVlszf daily as needed for sicqb69063Iskachs 2023 7:34amNovember 2023 5:52amPersistent insomnia Insomnia, unspecifiedAlprazolam 1 mg vljaxwWhmrgiusjocy5KHGGTzyfz daily as needed for qhmpdoh89794Hqkrluss 2023 10:06pmJanuary 2024 10:10am Persistent insomnia Anxiety Insomnia, unspecified Anxiety disorder, unspecifiedIbuprofen 800 mg tabletDiscontinued0.ROUTE.COMPLEX mb2023 8:10amSeptember 2024 11:51amRadial styloid tenosynovitis of right hand Right wrist pain Arthritis of carpometacarpal (CMC) joint of right thumb Arthritis of right hand Radial styloid tenosynovitis [de Quervain] Pain in right wrist Unilateral primary osteoarthritis of first carpometacarpal joint, right hand Primary osteoarthritis, right handTAKE 1 TABLET BY MOUTH EVERY 8 HOURS NEEDED FOR PAINTramadol 50 mg momsnyTkdbzsitygly38CPQCFqwgs daily as needed for pain60 300December 2023 1:19pmFebruary 2024 2:10pmDislocation of temporomandibular joint Dislocation of jaw, unspecified side, sequelaAlprazolam 1 mg tabletDiscontinued1 MGPOTwice daily as needed for esopyfh00638Rphahjz 2024 10:10amFebruary 2024 8:54amPersistent insomnia Anxiety Insomnia, unspecified Anxiety disorder, unspecifiedPrazosin 5 mg capsuleDiscontinued0.ROUTE.OBJHFBV802 September 23, 2024 12:11pmMarch 2024 9:08amTAKE 1 CAPSULE BY MOUTH IN THE EVENINGAlprazolam 1 mg mujfsrWznjncnhudbn5XAVNPmegv daily as needed for anxiety 51437Uydcbvhq 2024 8:54amMarch 2024 1:01pmPersistent insomnia Anxiety Insomnia, unspecified Anxiety disorder, unspecifiedTramadol 50 mg urwsbaIgsgmjykdoqp38MHOGEvlas daily as needed for fxtb70034Ifrycbrx 2024 2:10pmMarch 2024 11:34am Dislocation of temporomandibular joint Dislocation of jaw, unspecified side, sequelaAlprazolam 1 mg tabletDiscontinued1 MGPOTwice daily as needed for zvcvnwo01372Aliof 2024 1:00pmMarch 2024 10:04amPersistent insomnia Anxiety Insomnia, unspecified Anxiety disorder, unspecifiedTramadol 50 mg jmzgxgPrahwtlrqrhw12VHGIKcshw daily as needed for kzxd9310Heepg 2024 11:33amMarch 2024 10:04am Dislocation of temporomandibular joint Dislocation of jaw, unspecified side, sequelaTramadol 50 mg yhtnzmDkvqytoilwll08 MGPOTwice daily as needed for jual68153Jgf 2024 1:24pmJune 2024 9:03am Dislocation of temporomandibular joint Dislocation of jaw, unspecified side, sequelaAlprazolam 1 mg tabletDiscontinued1 MGPOTwice daily as needed for oistfax02917Ezl 2024 1:24pmJune 2024 9:03amPersistent insomnia Anxiety Insomnia, unspecified Anxiety disorder, unspecifiedAlprazolam 1 mg hwwjljTcoanhwxixvd9CCDZOipjh daily as needed for zcumzor67343Meuu 2024 9:03amJune 2024 9:04amPersistent insomnia Anxiety Insomnia, unspecified Anxiety disorder, unspecifiedTramadol 50 mg dgczblBapxgdgsfcik43AGUHKyofy daily as needed for wbsz86994Ugeo 2024 9:03amJuly 2024 7:28amDislocation of temporomandibular joint Dislocation of jaw, unspecified side, sequelaAlprazolam 1 mg tabletDiscontinued1 MGPOTwice daily as needed for jdqzvqt72126Jntz 2024 9:03amJuly 2024 7:28amPersistent insomnia Anxiety Insomnia, unspecified Anxiety disorder, unspecifiedAlprazolam 1 mg bssfrkBilpzmwngdie7HRHOZjgmc daily as needed for hiygeeu95587Fjio 2024 7:28amAugust 2024 7:03am Persistent insomnia Anxiety Insomnia, unspecified Anxiety disorder, unspecifiedTramadol 50 mg slpqnuLmefutsozhvg19VPKBAhikc daily as needed for lbiq47212Awsq 2024 7:28amAugust 2024 7:03amDislocation of temporomandibular joint Dislocation of jaw, unspecified side, sequelaGabapentin 100 mg capsule Xzjobnorgidu621SMCIGrqnj times tqura700485Xkwg 2024 3:43pmOctober 2024 9:52amAlprazolam 1 mg rfpsumTqyccmgrtlew6UAGHNhbnd daily as needed for rmidwmh61175Kmfbnj 2024 7:03amSeptember 2024 7:56amPersistent insomnia Anxiety Insomnia, unspecified Anxiety disorder, unspecifiedTramadol 50 mg inttqsCdgrbonusunr11NCGNOfhbv daily as needed for cbdl53790Raugmr 2024 7:03amSeptember 2024 7:56am Dislocation of temporomandibular joint Dislocation of jaw, unspecified side, sequelaIbuprofen 800 mg tabletActive0 .ROUTE.XFORZXP265Nrohdyonm 2024 11:51amRadial styloid tenosynovitis of right hand Right wrist pain Arthritis of carpometacarpal (CMC) joint of right thumb Arthritis of right hand Radial styloid tenosynovitis [de Quervain] Pain in right wrist Unilateral primary osteoarthritis of first carpometacarpal joint, right hand Primary osteoarthritis, right handTAKE 1 TABLET BY MOUTH EVERY 8 HOURS NEEDED FOR PAINUnknownAlprazolam 1 mg pfirtdMrkrfxdpaylp2PSDXLrfom daily as needed for uuanjxc85597Tmkqehqvd 2024 7:56amOctober 2024 8:33amPersistent insomnia Anxiety Insomnia, unspecified Anxiety disorder, unspecifiedTramadol 50 mg qwpzfmXhvhdxafiava56DAHAPogue daily as needed for migm91567Ksffvdauf 2024 7:56amOctober 2024 8:49am Dislocation of temporomandibular joint Dislocation of jaw, unspecified side, sequelaAlprazolam 1 mg tabletDiscontinued1 MGPOTwice daily as needed for voamsxw45079Bquwatp 2024 8:33amNovember 2024 9:08amPersistent insomnia Anxiety Insomnia, unspecified Anxiety disorder, unspecifiedNaloxone (Narcan) 4 mg/actuation spray,non-aerosol Yxiofy2FEKAVXXMBPCLtzxlp 2 to 3 minutes as needed for opioid hiofiwzh07Puvdqas 2024 11:00pmspray 1 dose into ONE nostril; alternate nostrils w each dose until help arrivesUnknownAlprazolam 1 mg pfacwtOypaie8YMHVDjrsc daily as needed for cyiygxs21481Uveqqiov 2024 9:08amPersistent insomnia Anxiety Insomnia, unspecified Anxiety disorder, unspecifiedUnknownMultivitamin (Multiple Vitamin) Tablet Oalhzjipdvuv0RPOTHZysrvIjkdryt 2021 11:00pmMar 2023 9:28amFolic Acid 1 mg QkweyjLnhgff7CXMUTkikdMxgfrxg 2021 11:00pmUnknownPolysaccharide Iron Complex (Pro Fe) 180 mg iron TuqjzqaTopoohwhvpkt653IHZFTqvxwLpisieo 2021 11:00pmJanuary 2022 11:27amBenzonatate 100 mg IemqcnrEocfsqdibfym494WA POThree times dailyOctsaint elizabeth [facility] 2021 11:00pmMarch 2023 9:38am Cholecalciferol (Vitamin D3) (Vitamin D3) 25 mcg (1,000 unit) AmzijfaYbicgq33JJG PODailyOctober 2021 11:00pmUnknownVitamin B14-Gaxlr Acid 0.5-1 mg Tablet Ojrtfn8LPBFJZwsjwHsycpiw 2021 11:00pmUnknownPolysaccharide Iron Complex (Pro Fe) 180 mg iron RtkvkilRfsgxuvodmvw808UJFRZsvjp02725Sqldjxa 2022 12:00amNovember 2024 9:31amIron deficiency Iron deficiencyNorgestimate-Ethinyl Estradiol (Sprintec (28)) 0.25-35 mg-mcg iinxlsEiqpeomormut9MMIQFGt DirectedJuly 2018 11:00pmNovember 2021 9:48amCetirizine 10 mg giileoJbgediihmgol77NFVRXnkiiFtaz 2018 11:00pm[facility] 2023 9:27amAlprazolam 1 mg ayknujAptanoioxbfh7RODNYnvkkiiIpmn 2018 11:00pm[facility] 2023 12:03pmAcyclovir 200 mg pxvqtckFccttxkgjcop311PFUVIjeuw Leena 2018 11:00pmApril 2023 1:12pmTramadol 50 mg tabletDiscontinued 50MGPODailyJuly 2018 11:00pm[facility]2021 9:49amOmeprazole 20 mg capsule,delayed release(DR/EC)Expbhmdsmsfw21NNDSVrlnjWclz 2018 11:00pm[facility] 7:18amIbuprofen 800 mg srpestTecnreaginca511BXTQB9D as needed for qbsp898Ebmm 2018 11:00pm[facility] 2023 12:03pmOxycodone-Acetaminophen (Percocet) 5-325 mg qqpxaeEpnqnjwxtdpd0LLODPORENJ 4-6 HOURS as needed for pain12 30July 2021 9:48amOther acute postprocedural pain Cephalexin 500 mg qaieznkRoaqyamsguax979BJIRT2D4263Fyuc 2018 11:00pm July 14, 2022 1:49pmFluconazole (Diflucan) 150 mg vfnawxUvkmigcquxck579WPIQ Ltlst872Cdjl 2018 2:15pm[facility]2021 9:48amadminister on day 1 of therapyMetoprolol Succinate 25 mg tablet extended release 24 hrDiscontinuedMGPO January 09, 2024 11:00pm[facility] 9:15amTiotropium [place] (Spiriva Respimat) 2.5 mcg/actuation zyahCzafesvnkecv4FZIWYZESMMOYRMRxzzdCwgmc 24th, 2024 11:00pmOctober 2023 8:03amtiotropium bromideDiscontinuedINHALATIONDaily December 24, 2023 11:00pmApril 2023 1:21pmvitamin E (dl, acetate) Fddtofpxvkfg9FEHTAYqeovVnetm 2023 11:00pmNovember 2023 10:33am Diclofenac Sodium (Voltaren Arthritis Pain) 1 % fyiLmznezstvyet6DJELIRTAjtgq vmich368248Vxkob 2023 11:00pmJuly 2024 8:03xb9-4 grams topically twice dailyPrednisone 5 mg lqiquiZhjwivjtuans6OILHAt Ilnfdpas9543Dwezi 2023 11:00pmMarch 2023 9:28amTake 4 pills by mouth x2 days, take 3 pills by mouth x2 days, take 2 pills by mouth x2 days, take 1pill by mouth x1 day. Acyclovir 400 mg vsujdwNqrwurictrof438KVZEIbct 2023 11:00pmJuly 2024 8:45amteepee splint- right thumbDiscontinued0.Route.ZDLMRHNRD19Cacr 2023 7:41amDecember 2023 10:16amArthritis of carpometacarpal (CMC) joint of right thumb Arthritis of right hand Unilateral primary osteoarthritis of first carpometacarpal joint, right hand Primary osteoarthritis, right hand painAs directed. Please specialty order.Meloxicam 15 mg rqxnhtCugfgqwqlaew20DKDU Fqvnr371Mefpgd 2023 11:00pmAugust 2023 7:36ampainMeloxicam 15 mg smdyuyUslezfphfodm62LIMKCurtu076Jeyoai 2023 11:00pmOctober 2023 7:14amRight wrist pain Radial styloid tenosynovitis of right hand Arthritis of carpometacarpal (CMC) joint of right thumb Pain in right wrist Radial styloid tenosynovitis [de Quervain] Unilateral primary osteoarthritis of first carpometacarpal joint, right hand Ibuprofen 800 mg rqsemzMggspytxacwj503BWSKZstxs 8 hours as needed for pxtu324 June 24, 2024 11:00pmDecember 2023 8:10amRadial styloid tenosynovitis of right hand Right wrist pain Arthritis of carpometacarpal (CMC) joint of right thumb Arthritis of right hand Radial styloid tenosynovitis [de Quervain] Pain in right wrist Unilateral primary osteoarthritis of first carpometacarpal joint, right hand Primary osteoarthritis, right handPolysaccharide Iron Complex (Pro Fe) 180 mg iron mzntvacTckppl341TJIJHlzux65590Qhhjoqro 2024 9:31amIron deficiency Iron deficiencyUnknownCyanocobalamin (Vitamin B-12) 1,000 mcg vlchvgZgzwip7652 EAPDSTueje737Mhcpicwe 2024 12:00amUnknownMethylprednisolone 4 mg tablets,dose packDiscontinuedMGPOJuly 2024 11:00pmOctober 2024 9:19am Tramadol 50 mg sprkjqJcfhacgcsymn96VIFTNjqgl times daily as neededJuly 2023 11:00pmJuly 2023 2:51pmAlprazolam 1 mg zccpifLiyvtdhlrnjk4DBGRQvxky daily as needed for culnd12662Xoxi 2023 8:13amAugust 2023 8:55pmPersistent insomnia Insomnia, unspecifiedTramadol 50 mg eiizjhUrhmqqoycuej94BTCFVbwxi times daily November 16, 2023 12:00amMarch 2023 2:31pmteepee splint right thumb Discontinued0.Route.BYIMKWONA71Mobxb 2023 11:00pmApril 2023 3:12pmAs directedIbuprofen 800 mg vytimcXsoqnojnpdnp454BLTWYnmti as needed for zvhp811 December 10, 2023 12:00pmJuly 2023 7:45amAlprazolam 1 mg tabletDiscontinued 0LKORUjvjbxv72920Mmvfv 2023 12:01pmApril 2023 3:37pmPersistent insomnia Insomnia, unspecifiedteepee splint- right thumbDiscontinued0.Route.JBSYRKFVU37 February 11, 2024 11:00pmJuly 2023 7:41amArthritis of carpometacarpal (CMC) joint of right thumb Arthritis of right hand Unilateral primary osteoarthritis of first carpometacarpal joint, right hand Primary osteoarthritis, right hand painAs directed. Please specialty order.Omeprazole 40 mg capsule,delayed release(DR/EC)Annfjn75NRJMPtsmy35549Jgxo 2024 7:59amUnknownAmoxicillin-Pot Clavulanate 875-125 mg ppvcwgNfgdmnumzdtk3IOGFUXwraw nqyop495Sychynr 2023 11:00pmNovb[facility] 2023 10:32amFluconazole 150 mg ejvmvpWtimolixvjmr107DIPV I6S24Unzmrkd 2023 11:00pmNovbanner [facility] 2023 10:33amAlprazolam 1 mg tablet Ywgbyyugypji4FGQXPndnz daily as needed for acrnain74531Fardcrfi 2nd, 2024 5:52am August 18, 2024 10:07pmPersistent insomnia Anxiety Insomnia, unspecified Anxiety disorder, unspecifiedPrazosin 5 mg vycdozwZkhdujyeeqsr0TNLTLmwsq evening 300Nov2023 11:00pm[facility] 8:35amDoxepin 3 mg tablet Kfjdltgdlehm2CCELOblfa at bedtime as needed for nnout714Hmfqutdp 5th, 2024 12:00amNoveer 2023 10:33amSertraline (Zoloft) 25 mg bbmtvsJvlvmhmmavms83 MGPODailyNich[facility] 2023 12:00am[facility] 2023 10:14amPyridoxine (Vitamin B6) 10 mg ljjbgpEzxmxlzvjtok02HIKFOxkczGbiabjfz 2023 12:00am August 20, 2024 10:15amTiotropium [place] (Spiriva With Handihaler) 18 mcg capsule, w/inhalation hktiaeLbowlr8XBPAHVOGAJYGUSpczqNgk 2024 11:00pm puncture 1 cap using device; one dose = 2 inhalationsUnknownCetirizine (Zyrtec) 10 mg jyqanxgUwrjcg73QDRMNaeig as neededTny 2024 11:00pmUnknownPyridoxine (Vitamin B6) 25 mg onfhffMgaoiq72XIBBWjpak times dailyDece2023 12:00am UnknownSertraline (Zoloft) 25 mg fmniftJbtckrjrswiy57SRLDDobapGbtzibww 4th, 2024 12:00amMarch 2024 9:08amAzithromycin 250 mg ndeneoCdaojosvdqan1KO.COMPLEX6 0Dece2023 12:00amMarch 2024 9:06amFor 250 mg dose pack: take 500 mg today (day 1), then 250 mg for 4 days (days 2-5) POPrazosin 5 mg capsule Fkrbbucsamij2PHGMTnpnz bavvbww298Tcwskpwo 2023 10:19amJanuary 2024 12:12pmPrazosin 5 mg capsuleDiscontinued0.ROUTE.COMPLEX as neededMarch 2024 9:07amJuly 2024 8:43amTAKE 1 CAPSULE BY MOUTH IN THE EVENING PRN; Tramadol 50 mg gnffonGhjkrgqptvae35SBWQTdjbc daily as needed for fzff64553Xgzyv 2024 10:03amMay 2024 1:25pmDislocation of temporomandibular joint Dislocation of jaw, unspecified side, sequelaAlprazolam 1 mg tabletDiscontinued1 MGPOTwice daily as needed for dirnwcz50980Wyyyy 2024 10:04amMay 2024 1:25pmPersistent insomnia Anxiety Insomnia, unspecified Anxiety disorder, unspecifiedGabapentin 100 mg capsuleDiscontinuedMGPOJune 2024 11:00pmJuly 2024 8:49amGabapentin 100 mg ssigloyExditujkvjmf506BJGS Three times dailyJuly 2024 8:47amJuly 2024 3:44pmValacyclovir 500 mg putytmWawylp650JLMOEhkauHfhi 2024 11:00pmUnknownAlbuterol Sulfate 90 mcg/actuation HFA aerosol irmjrrpHcpzxo0MBJDMMTIAEFQRHHdeq times dailyJuly 2024 11:00pmUnknownSertraline 50 mg odpmcwXxhwczhamylz14JSAAPsmqcBast 2024 11:00pmNovember 2024 9:00amCyclosporine (Restasis) 0.05 % dropperette Kxmeca1QQMGKARG-VCTUQvtir 12 hoursJuly 2024 11:00pmUnknownOxcarbazepine (Trileptal) 300 mg xualcrWlfyne3RVEvgkn rkjtq513Bxvhyve 2024 11:00pm1/2 po bid x 2 weeks then 1 po bid. orally twice daily;UnknownTramadol 50 mg tablet Whprfk92JBWVYncma daily as needed for xowb56529Cyzwefs 2024 8:43am Dislocation of temporomandibular joint Dislocation of jaw, unspecified side, sequelaUnknown Immunizations Immunization Event Date Not Given Reason Dose Number Armature Rewinder Lot Number Reason(s) Given Vaccine Information Statement (VIS) Detail Administration Location influenza, unspecified formulation May 16, 2021 influenza, unspecified formulationSept2021Tetanus, Diphtheria adult, 5 Lf pres free absOctober 2015 Medical Equipment Device Date Implanted Device Details Video capsule endoscopy system March 17, 2024 U DI: [id number] Issuing Agency: [facility] Device Id: [id number] Expiration Date: 2024-10-02 Lot Number: [id number] Serial Number: [id number] Relevant Diagnostic Tests and/or Laboratory Data Laboratory Results Test Collection Date/Time Result Date/Time Result Interpretation Reference Range Result Comment Performing Site Iron Saturation July 31, 2025 1:22pm July 31, 2025 1:pm 41.9 % Vitamin B12 LevelJuly 31, 2025 1:2024 1:83zb839 pg/mL 232-1245Performed at: [facility] Lab[address] [id number] Director: Andres Arboleda PhD, Phone: [phone] 14th, 2025 1:2024 1:pm33.20 ng/mL8.60-58.90FerritinJuly 31, 2025 1:2024 1:pm64.0 ng/mL8.0-252.0Anion GapJuly 31, 2025 1:2024 1:pm7.6Percent Reticulocyte CountJuly 31, 2025 1:2024 1:22pm1.44 %0.60-3.10Basophils # (Auto) July 31, 2025 1:pmJuly 31, 2025 1:22pm0.1 10 3/uL0.0-0.1Iron Level July 31, 2025 1:pmJuly 31, 2025 1:11pc022.0 ug/dL50.0-170.0 Albumin/Globulin RatioNove2024 1:22pmJuly 31, 2025 1:22pm1.4 Basophils (%) (Auto)July 31, 2025 1:pmJuly 31, 2025 1:22pm0.6 % 0.2-2.0Total Iron Binding CapacityJuly 31, 2025 1:2024 1:72ij980.0 ug/dL250.0-450.0AlbuminJuly 31, 2025 1:2024 1:pm4.0 g/dL3.4-5.0Eosinophils # (Auto)July 31, 2025 1:pmJuly 31, 2025 1:22pm0.1 10 3/uL0.0-0.7Alkaline PhosphataseJuly 31, 2025 1:2024 1:pm56 U/T41-803Nuxyowmzyct (%) (Auto)July 31, 2025 1:pmJuly 31, 2025 1:22pm1.0 %0.9-7.0Alanine Aminotransferase (ALT/SGPT)July 31, 2025 1:2024 1:28 U/L14-59 HematocritJuly 31, 2025 1:2024 1:pm39.8 %36.0-48.0 Aspartate Amino Transf (AST/SGOT)July 31, 2025 1:2024 1:pm20 U/G30-94NccaphxtjqQfsrbpsa 14th, 2025 1:2024 1:22pm 14.1 g/dL12.0-16.0BUN/Creatinine RatioNove2024 1:2024 1:pm25.4Immature Granulocyte # (Auto)July 31, 2025 1:22pmJuly 31, 2025 1:22pm0.03 10 3/uL0.00-0.03Blood Urea NitrogenJuly 31, 2025 1:2024 1:pm16.0 mg/dL7.0-18.0Immature Granulocyte % (Auto) July 31, 2025 1:pmJuly 31, 2025 1:pm0.4 %0.0-0.5Calcium Level July 31, 2025 1:pmJuly 31, 2025 1:pm8.8 mg/dL8.5-10.1Lymphocytes # (Auto)July 31, 2025 1:2024 1:pm1.8 10 3/uL1.2-3.8 Chloride LevelJuly 31, 2025 1:pmJuly 31, 2025 1:90ol352 mmol/L 98-107Lymphocytes (%) (Auto)July 31, 2025 1:2024 1:pm 21.6 %20.5-60.0Carbon Dioxide LevelJuly 31, 2025 1:2024 1:pm31.7 mmol/L21.0-32.0Mean Corpuscular HemoglobinJuly 31, 2025 1:22pm July 31, 2025 1:pm36.8 pgAbove high .7-34.0CreatinineJuly 31, 2025 1:2024 1:pm0.63 mg/dL0.55-1.02Mean Corpuscular Hemoglobin ConcentNov2024 1:2024 1:35.4 g/dL Above high ruphna01.9-35.2Estimated GFR ()July 31, 2025 1:2024 1:pm>60>=60 mL/min/1.73m 2Mean Corpuscular Volume July 31, 2025 1:pmJuly 31, 2025 1:65om693.9 fLAbove high normal 81.0-99.0Estimated GFR (Non- AmericanJuly 31, 2025 1:2024 1:pm>60>=60 mL/min/1.73m 2Monocytes # (Auto)July 31, 2025 1:2024 1:pm0.4 10 3/uL0.3-0.8GlobulinFirsthealth2024 1:pmJuly 31, 2025 1:pm2.8 g/dLMonocytes (%) (Auto)July 31, 2025 1:2024 1:pm4.9 %1.7-12.0Glucose LevelFirsthealth2024 1:2024 1:32zc357 mg/bC84-655Csri Platelet VolumeJuly 31, 2025 1:2024 1:pm9.3 fLBelow low normal9.5-13.5 Potassium LevelFirsthealth2024 1:2024 1:pm4.3 mmol/L 3.5-5.1Neutrophils # (Auto)July 31, 2025 1:2024 1:pm 6.0 10 3/uL1.4-6.5Sodium LevelFirsthealth2024 1:2024 1:73mr164 mmol/I750-588Kvmdgusfxze (%) (Auto)July 31, 2025 1:2024 1:pm71.5 %43.0-75.0Total BilirubinJuly 31, 2025 1:pm July 31, 2025 1:22pm0.3 mg/dL0.2-1.0Platelet CountJuly 31, 2025 1:2024 1:22cz760 10 3/fJ441-994Mygyx ProteinJuly 31, 2025 1:2024 1:pm6.8 g/dL6.4-8.2Red Blood CountNovember 2024 1:22pmNovember 2024 1:22pm3.83 10 6/uLBelow low normal4.20-5.40 Red Cell Distribution WidthNov2024 1:22pmNovember 2024 1:22pm 12.7 %11.0-15.0Corrected White Blood CountNovember 2024 1:22pmNovember 2024 1:22pm8.4 10 3/uL4.0-11.0Corrected White Blood CountMay 2024 10:55amMay 2024 1:09pm7.2 10*3/uL3.8-11.6FF[facility] [id number] [address] [facility] [address]15[address]Aqcrtlfqyaf WBC CountMay 2024 10:55amMay 2024 1:09pm7.2 10*3/uL3.8-11.6FF[facility] [id number] [address] [facility] 408[address]Vcq Blood CountMay 2024 10:55amMay 2024 1:09pm4.10 10*6/uL3.60-5.00[facility] [id number] [address] [facility] 15223MprtbugmutJpb 2024 10:55amMay 2024 1:09pm14.4 g/dL 11.8-15.4FF[facility] [id number] [address] [facility] 96516DlhstsgvlnZpr 2024 10:55amMay 2024 1:09pm41.5 % 34.0-46.4FF[facility] [id number] [address] [facility] 46872Hqfq Corpuscular VolumeMay 2024 10:55amMay 2024 1:89pk010.2 fLAbove high ddhqib02-494ZhsnbvpkvChildren'S [facility] [id number] [address] [facility] 28047Eimw Corpuscular HemoglobinMay 2024 10:55amMay 2024 1:09pm35.1 pgAbove high xlvwol00.7-34.3FF[facility] [id number] [address] [facility] 06118Yfpm Corpuscular Hemoglobin ConcentMay 2024 10:55amMay 2024 1:09pm34.6 g/dL32.0-35.0[facility] [id number] [address] [facility] 07876Rde Cell Distribution WidthMay 2024 10:55amMay 2024 1:09pm13.2 %11.9-15.3FF[facility] [id number] [address] [facility] 16522Oxwocwnt CountMay 2024 10:55amMay 2024 1:49qp233 10*3/wS672-454GmugqzwqpChildren'[facility] [id number] [address] [facility] 88589Oeyd Platelet VolumeMay 2024 10:55amMay 2024 1:09pm 7.7 fL6.3-10.7FF[facility] [id number] [address] [facility] 78240Upvmvuptbtd (%) (Auto)January 27, 2025 10:55amMay 2024 1:09pm68.3 %.[facility] [id number] [address] [facility] 23121Zfcfyrdyhds (%) (Auto)January 27, 2025 10:55amMay 2024 1:09pm25.6 %.[facility] [id number] [address] [facility] 05804Rewmgfluu (%) (Auto)January 27, 2025 10:55amMay 2024 1:09pm 4.4 %.[facility] [id number] [address] [facility] 91520Jhsfzfdiltf (%) (Auto)January 27, 2025 10:55amMay 2024 1:09pm0.5 %.[facility] [id number] [address] [facility] 45247Bbiuegzyi (%) (Auto)January 27, 2025 10:55amMay 2024 1:09pm 1.2 %.[facility] [id number] [address] [facility] 66306Aackgjbdw RBC Relative Count (auto)January 27, 2025 10:55amMay 2024 1:09pm0.1 /100{WBC}0-0.5FF[facility] [id number] [address] [facility] 72816Sugzksuolsw # (Auto)January 27, 2025 10:55amMay 2024 1:09pm 4.9 10*3/uL1.8-7.7FF[facility] [id number] [address] [facility] 72359Zfgfshsrofh # (Auto)January 27, 2025 10:55amMay 2024 1:09pm 1.9 10*3/uL1.00-4.8[facility] [id number] [address] [facility] 20633Ovoycelqr # (Auto)January 27, 2025 10:55amMay 2024 1:09pm 0.3 10*3/uL0.0-0.8[facility] [id number] [address] [facility] 92150Xznajuxaqxl # (Auto)January 27, 2025 10:55amMay 2024 1:09pm 0.0 10*3/uL0.0-0.45[facility] [id number] [address] [place], [place] [address]Basophils # (Auto)January 27, 2025 10:55amMay 2024 1:09pm 0.1 10*3/uL0.0-0.2FF[facility] [id number] [address] [facility] 30338Dswn LevelMay 2024 10:55amMay 2024 1:38cr691 ug/dL 50-212[facility] [id number] [address] [place] [address] 15[address]Vilck Iron Binding CapacityMa2024 10:55amMay 2024 1:29ym665 ug/wG565-684UsuxmnwwgChildren'S Hospital [facility] [id number] [address] [facility] 65738Drms SaturationMay 2024 10:55amMay 2024 1:35pm46.7 %20-50[facility] [id number] [address] [facility] 67087OszqwtfzxabGdt 2024 10:55amMay 2024 1:26ph252 mg/dL 203-362[facility] [id number] [address] [facility] 18034TkbdbakiPjw 2024 10:55amMay 2024 1:55pm30.5 ng/mL 11.0-306.8[facility] [id number] [address] [facility] [address] Vital Signs Vital Reading Result Reference Range Collection Date/Time Height 66 [in_i] July 06, 2025 9:93uaGaaqen58.15 kgOcts[facility] 2024 9:29amHeart Rate97 /gis15-298Rbgjfns 2024 9:29amOxygen saturation by Pulse tundrmte05 %95-100 July 06, 2025 9:29amBP Wrunniqv105 mm[Hg]100-140Oct2024 9:29amBP Medahjuoa82 mm[Hg]60-100Oct2024 9:29amBMI (Body Mass Index)20.3 kg/i8Lxklmli 2024 9:82kjDpxueq96 [in_i]July 17, 2025 8:14amWeight 53.07 kgOctober 2024 8:14amHeart Rate93 /qyd23-466Zujkyut 2024 8:14amBP Slfodjpu775 mm[Hg]100-140October 2024 8:14amBP Qkwahmxfk12 mm[Hg] 60-100October 2024 8:14amBMI (Body Mass Index)18.8 kg/g0Lallyvo 2024 8:58roXneuux93 [in_i]August 07, 2025 9:43vxDnnlja62.61 kgNovember 2024 9:01amBody Bthgxfqlvrt86.4 [degF]97.6-99.0November 21st, 2025 9:01amHeart Rate92 /adp24-891EkcjzzylAugust 07, 2025 9:01amRespiratory rate16 /ngo91-77NnppayqgAugust 07, 2025 9:01amOxygen saturation by Pulse %95-100August 07, 2025 9:01amBP Jzyamkzm580 mm[Hg]100-140August 07, 2025 9:01amBP Nxyvicfpj91 mm[Hg]60-100August 07, 2025 9:01amBMI (Body Mass Index)18.7 kg/t8EropcwfdAugust 07, 2025 9:92vpUrpcvg68 [in_i]August 07, 2025 9:50wxIwclsc33.61 kgAugust 07, 2025 9:01amBody Gypfrxxytyf45.1 [degF]97.6-99.0August 12, 2024 1:13pm Heart Rate94 /sta48-704Yjjypfsf 2023 1:00pmRespiratory rate18 /uaw23-14 August 20, 2024 1:00pmOxygen saturation by Pulse babyamoz06 %95-100Decemb2023 1:00pmBP Mfmabqpv144 mm[Hg]100-140Decemb2023 1:00pmBP Gzsfmoxnb62 mm[Hg]60-100December 2023 1:00pm Advance Directives Advance Directive Response Recorded Date/ Time Advance Directives No August 18, 2024 10:00am Insurance Providers [facility]or [facility] Address [address] [place] [id number] Info.Home Phone: Payer Group Member ID Coverage Type Subscriber Relationship to Subscriber Effective Date Expiration Date SAMUEL [id number] Mathieu Id: [id number] [place] [id number] Home Phone: self Encounters Encounter Location(s) Arrival/Admit Date Discharge/Departure Date Discharge/Departure Disposition Provider(s) Non-patient / Non-visit -[facility] Octob er 2024 10:09am Elida Moreau CMADeparted Physician/Provider Office Visit-[facility] Neurology [facility] 2024 10:25amOctober 2024 11:02amDischarged to home care or self care (routine discharge)Nidia Lambert , DODeparted Physician/Provider Office Visit-[facility] OrthopedicsOctober 2024 9:58amOctober 2024 10:47amDischarged to home care or self care (routine discharge)Destiny Rodriguez , MDDeparted Physician/Provider Office Visit- [facility] Pain Mgmt BCOctober 2024 10:13amOctober 2024 10:53amDischarged to home care or self care (routine discharge)Jas Frausto MDDeparted Physician/Provider [facility] 9:11amOctober 2024 10:38amDischarged to home care or self care (routine discharge)Leanne Stanford MDNon-patient / [facility]cl[facility]sdctt[facility] 2024 1:22pmJeanette Jimenes NP-CDeparted Physician/Provider [facility] 8:55amNovember 2024 9:49amDischarged to home care or self care (routine discharge)Jeanette Jimenes NP-CRegistered [facility] Acute August 07, 2025 9:04amUte Griffin APRN Recent Diagnosis Onset Date Admit Date Allodynia Unknown July 06 10:25am Degenerative disc [...] 10:13am Chronic pain Unknown July 13 10:13am Back pain, thoracic Unknown June 9:11am Insomnia, persistent Unknown June 9:11am Right medial knee pain Unknown June 192024 9:11am TMJ (dislocation of temporomandibular joint) Unk nown July 17, 2025 9:11am Blood donor Unknown August 07, 2 025 8:55am History of menorrhagia Unknown August 07, 2025 8:55am Iron deficiency anemia Unknown August 07, 2025 8:55am Assessments Diagnosis Onset Date Resolution Status Admit Date Allodynia acuteOctober 2024 10:25amDegenerative disc disease, cervicalacuteOctober 2024 10:25amInsomniaacuteOctober 2024 10:25amMigraine headache without auraacuteOctober 2024 10:25amMyalgiaacuteOctober 2024 10:25amNeck painacuteOctober 2024 10:25amParesthesiaacuteOctober 2024 10:25amArthritis of carpometacarpal (CMC) joint of right thumbacuteOctober 2024 9:58amArthritis of right handacuteOctober 2024 9:58amTrigger finger, right index fingeracuteOctober 2024 9:58am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neacuteOctober 2024 10:13amBack pain, thoracicacuteOctober 2024 10:13amChronic painacuteOctober 2024 10:13amBack pain, thoracicacuteOctober 2024 9:11amInsomnia, persistentacuteOctober 2024 9:11amRight medial knee painacuteOctober 2024 9:11amTMJ (dislocation of temporomandibular joint)acuteOctober 2024 9:11amBlood donorchronic August 07, 2025 8:55amHistory of menorrhagiachronicNov2024 8:55amIron deficiency anemiachronicNov2024 8:55am Plan of Treatment Author Jeanette Jimenes [facility] hospitalNov[facility] 9:11am1/12/2022: This is a 47-year-old female who is [...] by Dr. Esteves in March 2019. Author Destiny Rodriguez [facility]AuthoredOctober 2024 8:52pmExtensive discussion about current condition and treatment options [...] area of steroid injection. Author Nidia Lambert [facility]oredOctober 2024 10:07wy22-ther-bdf female with an odd constellation of symptoms. [...] are any new issues or questions. Author Colton Montes [facility]oredOctober 2024 9:54amWe discussed treatment options for the patient's persistent cervical pain. She shows notable pain consistent with degenerative changes [...] with patient in regards to patients condition. I will order an updated x-ray of the cervical spine today. Tolerable following recent right thoracic paraspinal trigger point injections. We will continue to monitor and proceed with repeat trigger point injections when needed when pain is severe. Above note written by ANGY Stark, [employer]. Edited and approved by Dr. Tad Zapata MD Author Leanne Stanford [facility] 2024 2:30pmCheck Xray. Consider ortho v. PT. pt on tramadol 1 daily. she understands this is a controlled substance. [place]. 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 Will reach out if Dr Zapata can help w this chronic problem as well. She has been to dental locally and in [place]. Referral to Dr. Zapata completed and she is very happy w the improvement in her pain after trigger point injections. Alprazolam refilled earlier this month. Patient understands this is a controlled substance. She will follow-up in 3 months. [place] was reviewed at time of prescription. Controlled substance contract completed in November. Prazosin was tried and not successful in helping w her insomnia. Future Tests Future scheduled test information is unavailable Pending Tests Test Name Ordered Date Scheduled Date Comprehensive Metabolic Panel August 07 9:35am 6 Months XR cervical spine LAT/FLX/EXT July 13, 2025 9:54am XR knee RT 4V*July 17, 2025 8:38am Future Visits Future appointment information is unavailable Future Procedures Procedure Name Ordered Date Scheduled Date Apply O2 via Nasal Cannula 4 L to Maintain SpO2 of >=90% August 04, 2024 2:03pm August 08, 2024 12:00am Apply O2 via Nasal Cannula 4 L to Maintain SpO2 of >=90% August 04, 2024 2:03pm August 12, 2024 12:00am Apply O2 via Nasal Cannula 4 L to Maintain SpO2 of >=90% August 04, 2024 2:03pm August 20, 2024 12:00am Orders Panel Function Communication Order August 19, 2024 2:34pm August 19, 2024 2:34pm Orders Panel Function Communication Order August 08, 2024 8:54am August 08, 2024 8:54am Orders Panel Function Communication Order August 12, 2024 1:43pm August 12, 2024 1:43pm Complete Blood Count Auto Diff August 07 9:35am 6 Months Copper August 07, 2025 9:35am 6 Mon ths Iron and TIBC Profile August 07, 2025 9:35am 6 Months Ferritin August 07, 2025 9:35am 6 Mon ths Pathologist Slide Review August 07, 2025 9:3 5am 6 Months Vit. B12/Folate Profile August 07, 2025 9:35 am 6 Months Future Medications Future medication information is unavailable Patient Instructions Patient instructions are unavailable Goals Acute Goals Author Authored Date Maintain/increase activity l evels * Understands factors that may lead to activity intolerance * Helps perform self care activities * Maintains maximum range of motion * Increase/regain muscle mass and strength * Maintains VS WNL during activity * Maintain intact skin integrity Updated: 3Cjohn paul [facility]November [facility] 9:20am
--- NOTE | 2025-08-17 09:50 | MR_ITS ---
[place] [id number] Patient Name: MARKO BANUELOS MRN: [id number] date: 1975 Sex: F Assigned Patient Location: MRI Current Patient Location: MRI Accession/Order Number: [id number] Exam Date: 08/17/2025 10:00 Report Date: 08/17/2025 13:30 At the request of: FERNANDA CONCEPCION MD Procedure: MR knee RT wo con EXAMINATION: MRI OF THE RIGHT KNEE CLINICAL DATA: Right Medial Knee Pain after injury 05/2025 COMPARISON: Right knee series 07/17/2025 TECHNIQUE: Multiecho, multiplanar imaging was performed with use of an extremity coil. No contrast was administered. FINDINGS: Joint:Small joint effusion with Esteves's cyst. Articular cartilage of the patella appears grossly unremarkable. Articular cartilage of the femur appears unremarkable. No fracture. No bone marrow edema. No significant joint spurring. Soft tissues: Normal Quadriceps/Patellar tendon/retinaculum: Normal Muscles: Normal ACL:Normal PCL:Normal Medial Meniscus:Normal Lateral Meniscus:Normal MCL:Normal LCL complex: Normal MR/MR knee RT wo con IMPRESSION: SMALL JOINT EFFUSION WITH ESTEVES'S CYST. NO MRI EVIDENCE OF INTERNAL DERANGEMENT, FRACTURE OR BONE CONTUSION. Impression dictated by: Freedom Mcmillan Jr., D.O. 08/17/2025 1:30 PM Dictation Location: [place] [address] Electronically authenticated by: [id number] Y Date: 08/17/2025 13:30
--- OUTSIDE RECORDS SUMMARY | 2025-08-17 09:52 | XMS_ITS | Clinical Summary ---
Author Organization [facility] Address [address] [place] [address] Care Team Providers Care Investment Manager Name Role Phone Unavailable Primary Care Provider Unavailabl e Source Comments The following information is NOT included in Care Everywhere downloads:Psychiatric notes, ECG results, Cardiac Rehab notes, Pulmonary Function notes, data from SmartForms (includes but not limited toPregnancy data,audiograms, eye exams, pre-surgical evaluation notes, well-child exam data).[facility] Social History Tobacco UseTypesPacks/DayYears UsedDateSmoking Tobacco: Never Assessed CommentsUnknownSex and Gender InformationValueDate RecordedSex Assigned at Not on fileLegal RrrDmkyud50/21/2020 9:44 AM EDTGender IdentityNot on fileSexual OrientationNot on file Plan of Treatment Health MaintenanceDue DateLast UwdjPuphlfodBfdtanubcvo1976HIV Test 01/25/1991Hepatitis C Lqfpxlqc77/11/1994Tdap Qajjiou6801/25/1994Hepatitis A (HAV) Vaccine (optional start 19+ years)01/25/1995Hepatitis B (HBV) Vaccine (1 of 3 - 19+ 3-dose series)01/25/1995Tetanus (Td or Tdap) Mojzrgg7001/25/1995Pap Smear 01/25/19970294Utqcwdgvzxd51/11/2016CRC Ckobndzdm19/11/5608Wawksmfaqqf88/11/2021 Cologuard (Stool DNA)01/25/2021FIT01/25/2021OVID-19 Vaccine (2024- season)2025Influenza Vaccine (#1)2025Shingles (RZV) Vaccine (1 of 2) 01/25/2026Pneumococcal Vaccine(s)Aged OutNo longer eligible based on patient's age to complete this topic Insurance on file
--- OUTSIDE RECORDS SUMMARY | 2025-08-17 09:52 | XMS_ITS | Clinical Summary ---
Author Organization [facility] Address [address] [place] [address] Phone Care Team Providers Care Film Color Tester Name Role Phone Unavailable Primary Care Provider Unavailabl e Social History Tobacco UseTypesPacks/DayYears UsedDateSmoking Tobacco: Never Assessed CommentsUnknownSex and Gender InformationValueDate RecordedSex Assigned at Not on fileLegal WmoRpelwt41/26/2022 8:35 PM ESTGender IdentityNot on fileSexual OrientationNot on file Plan of Treatment Not on file
--- OUTSIDE RECORDS SUMMARY | 2025-08-17 09:52 | XMS_ITS | Continuity of Care Document ---
Author Organization [facility] Address [address] [place] [address] Phone Care Team Providers Care Jet Man Name Role Phone Leanne Stanford MD Primary Care Provider Elida Moreau CMA Attending Provider UnavailNidia Thomas DO Attending Provider Destiny Rodriguez MD Attending Provider Tad Zapata MD Attending Provider Leanne Stanford MD Attending Provider [phone] Jeanette Jimenes [employer] SUPERVISOR-C Attending Provider [phone] Care Teams Patient Care Team Team Status: [...] July 17, 2025 End: July 17, 2025 Patient Care Team Team Status: Active Member Role/Relationship Status Dates Leanne Stanford MD Primary Care Provider Active Start: July 31, 2025 Jeanette Jimenes NP-CAttending ProviderActiveStart: July 31, 2025 Chief Complaint and Reason for Visit Chief Complaint Admit Date Amb Documentation June 30, 2025 1 0:09am Follow up July 06, 2025 1 0:25am 3 MONTHS July 07, 2025 9 :58am 2 MONTHS July 13, 2025 1 0:13am Injured Right Knee July 17, 2025 9 :11am Reason for Visit Admit Date Allodynia July [...] temporomandibular tsering int) July 17, 2025 9:11am Allergies, Adverse Reactions, Alerts Allergen Type Severity Reaction Last Updated Verified Status No Known Allergies Allergy Unknown July 17, 2025 8:20amYesActive Social History Smoking Status Status Start Date [...] unspecified side, initial encounterAlprazolam 1 mg tablet Bzxzeyybhykj0QVXEZmjoy at bedtime as needed for qulxh00342Ovupq 2023 3:35pmJune 2023 7:33amPersistent insomnia Insomnia, unspecifiedteepee splint right thumbDiscontinued0.Route.MROYHMNZT72 January 08, 2024 3:12pmApril 2023 1:21pmAs directedDoxycycline Hyclate 100 mg dtvproLqxfpimrtdoz168GWPRAcqyd bnvtw849Say 2023 11:00pmJune 2023 9:15amAlprazolam 1 mg dbwwmxNartsenavokp7ZNYILlywu at bedtime as needed for chxvl01821Qvef 2023 7:33amJuly 2023 11:19amPersistent insomnia Insomnia, unspecifiedOmeprazole 40 mg capsule,delayed release(DR/EC)Discontinued 40UMRYTvol815858Grxu 2023 11:00pmJuly 2024 7:59amAlprazolam 1 mg cjwcroDvvxxinsbggw8CAXDWiqly at bedtime as needed for ijzsz05757Bles 2023 11:19amJuly 2023 8:16amPersistent insomnia Insomnia, unspecifiedTramadol 50 mg dmcllaCpnzkbxmxgtq86DNVAJaufi times daily as needed for sxmt27230Caua 2023 2:49pmDecember 2023 1:19pmDislocation of temporomandibular joint Dislocation of jaw, unspecified side, sequelaAlprazolam 1 mg tabletDiscontinued1 MGPOTwice daily as needed for xrqsa56226Snnppa 2023 8:54pmOctober 2023 7:34amPersistent insomnia Insomnia, unspecifiedAlprazolam 1 mg npjsyxKiquzyyfyzte1UVRKRpygj daily as needed for lpohv03706Jludtqa 2023 7:34amNovember 2023 5:52amPersistent insomnia Insomnia, unspecifiedAlprazolam 1 mg iizxqnEejmqwbwaidy6HHNJVqfqq daily as needed for gnbiimd61238Otomkruv 2023 10:06pmJanuary 2024 10:10am Persistent insomnia Anxiety Insomnia, unspecified Anxiety disorder, unspecifiedIbuprofen 800 mg tabletDiscontinued0.ROUTE.COMPLEX 902December 2023 8:10amSeptember 2024 11:51amRadial styloid tenosynovitis of right hand Right wrist pain Arthritis of carpometacarpal (CMC) joint of right thumb Arthritis of right hand Radial styloid tenosynovitis [de Quervain] Pain in right wrist Unilateral primary osteoarthritis of first carpometacarpal joint, right hand Primary osteoarthritis, right handTAKE 1 TABLET BY MOUTH EVERY 8 HOURS NEEDED FOR PAINTramadol 50 mg rlpdyvMsuqhowgffud15BGHJAqaoz daily as needed for pain60 300December 2023 1:19pmFebruary 2024 2:10pmDislocation of temporomandibular joint Dislocation of jaw, unspecified side, sequelaAlprazolam 1 mg tabletDiscontinued1 MGPOTwice daily as needed for pekxqql93102Zqqtgwk 2024 10:10amFebruary 2024 8:54amPersistent insomnia Anxiety Insomnia, unspecified Anxiety disorder, unspecifiedPrazosin 5 mg capsuleDiscontinued0.ROUTE.WBKYKCO536 September 23, 2024 12:11pmMarch 2024 9:08amTAKE 1 CAPSULE BY MOUTH IN THE EVENINGAlprazolam 1 mg tglsghRfluokraxvnw0SQNFHzgcw daily as needed for anxiety 24911Kesqjiug 2024 8:54amMarch 2024 1:01pmPersistent insomnia Anxiety Insomnia, unspecified Anxiety disorder, unspecifiedTramadol 50 mg fpzrrpCihxkwqokxwl47EFRQMsrxf daily as needed for hest18956Uimeqfbq 2024 2:10pmMarch 2024 11:34am Dislocation of temporomandibular joint Dislocation of jaw, unspecified side, sequelaAlprazolam 1 mg tabletDiscontinued1 MGPOTwice daily as needed for mwbmzhq41905Llenu 2024 1:00pmMarch 2024 10:04amPersistent insomnia Anxiety Insomnia, unspecified Anxiety disorder, unspecifiedTramadol 50 mg uiqgnsAxehotqukzbi60NQUFMymmt daily as needed for qagf1755Wyrbn 2024 11:33amMarch 2024 10:04am Dislocation of temporomandibular joint Dislocation of jaw, unspecified side, sequelaTramadol 50 mg dfozzqHwkvvnssgdhb76 MGPOTwice daily as needed for yjxr18688Qwk 2024 1:24pmJune 2024 9:03am Dislocation of temporomandibular joint Dislocation of jaw, unspecified side, sequelaAlprazolam 1 mg tabletDiscontinued1 MGPOTwice daily as needed for hgoxkdy10937Rsl 2024 1:24pmJune 2024 9:03amPersistent insomnia Anxiety Insomnia, unspecified Anxiety disorder, unspecifiedAlprazolam 1 mg urxglfBozvnxsxyeif6BNPYWfjyi daily as needed for ymliroq13349Seis 2024 9:03amJune 2024 9:04amPersistent insomnia Anxiety Insomnia, unspecified Anxiety disorder, unspecifiedTramadol 50 mg ucceuyCvkkebyctuhe50GLLKEwyjw daily as needed for zqus67045Tjdg 2024 9:03amJuly 2024 7:28amDislocation of temporomandibular joint Dislocation of jaw, unspecified side, sequelaAlprazolam 1 mg tabletDiscontinued1 MGPOTwice daily as needed for caytkut75561Pxjg 2024 9:03amJuly 2024 7:28amPersistent insomnia Anxiety Insomnia, unspecified Anxiety disorder, unspecifiedAlprazolam 1 mg vzyfgnBacaqtsxvsth5EQWRIbraz daily as needed for wjuznjp29331Yubh 2024 7:28amAugust 2024 7:03am Persistent insomnia Anxiety Insomnia, unspecified Anxiety disorder, unspecifiedTramadol 50 mg hzovobIypyhlrebueg10SXEWMmbpm daily as needed for zuos48084Bajq 2024 7:28amAugust 2024 7:03amDislocation of temporomandibular joint Dislocation of jaw, unspecified side, sequelaGabapentin 100 mg capsule Kldyvlvsocnv700KVYYXfhpc times wjcet254451Nnyj 2024 3:43pmOctober 2024 9:52amAlprazolam 1 mg hhjmlnRmbpynwnuasw2ZEHQXugtr daily as needed for swlkbbf90401Pakfqw 2024 7:03amSeptember 2024 7:56amPersistent insomnia Anxiety Insomnia, unspecified Anxiety disorder, unspecifiedTramadol 50 mg zudrhmGrhutyaclipz32WVWYMobax daily as needed for izjq38645Dmypzz 2024 7:03amSeptember 2024 7:56am Dislocation of temporomandibular joint Dislocation of jaw, unspecified side, sequelaIbuprofen 800 mg tabletActive0 .ROUTE.QSGEWVN201Sskxluodv 2024 11:51amRadial styloid tenosynovitis of right hand Right wrist pain Arthritis of carpometacarpal (CMC) joint of right thumb Arthritis of right hand Radial styloid tenosynovitis [de Quervain] Pain in right wrist Unilateral primary osteoarthritis of first carpometacarpal joint, right hand Primary osteoarthritis, right handTAKE 1 TABLET BY MOUTH EVERY 8 HOURS NEEDED FOR PAINComplies with drug therapyAlprazolam 1 mg swebucSeqzdunrfmpu2GUUXAmqbh daily as needed for joqaenl65837Lcefsyzgo 2024 7:56amOctober 2024 8:33amPersistent insomnia Anxiety Insomnia, unspecified Anxiety disorder, unspecifiedTramadol 50 mg uyqsehEoeokjiyxmmx07GECWGkypj daily as needed for cbnl25840Jzwywryit 2024 7:56amOctober 2024 8:49am Dislocation of temporomandibular joint Dislocation of jaw, unspecified side, sequelaAlprazolam 1 mg tabletDiscontinued1 MGPOTwice daily as needed for fzxdxzm88495Wjhbrwm 2024 8:33amNovember 2024 9:08amPersistent insomnia Anxiety Insomnia, unspecified Anxiety disorder, unspecifiedNaloxone (Narcan) 4 mg/actuation spray,non-aerosol Irrogf7SALDTCYBBZGIgjrbc 2 to 3 minutes as needed for opioid xfulzosz06Qbhhzek 2024 11:00pmspray 1 dose into ONE nostril; alternate nostrils w each dose until help arrivesComplies with drug therapyAlprazolam 1 mg pnjghjAasucv2OHIT Twice daily as needed for dxyxkxk50873Atbjcijp 2024 9:08amPersistent insomnia Anxiety Insomnia, unspecified Anxiety disorder, unspecifiedUnknownMultivitamin (Multiple Vitamin) Tablet Zghimwnqqozr7RSWBTAuwttQmeldpa 2021 11:00pmMarch 2023 9:28amFolic Acid 1 mg KgowjuBhxxct1AIWBQovykSwskqbb 2021 11:00pmComplies with drug therapyPolysaccharide Iron Complex (Pro Fe) 180 mg iron RjugrgoRnacemvmmfsh428KE PODailyOctober 2021 11:00pmJanuary 2022 11:27amBenzonatate 100 mg FlxggskKnwnocrjidgd513MJJATpigi times dailyOctober 2021 11:00pmMar 2023 9:38amCholecalciferol (Vitamin D3) (Vitamin D3) 25 mcg (1,000 unit) Capsule Ruwfaf20EXZGAZqtivQnfsykt 2021 11:00pmComplies with drug therapyVitamin M98-Qadfj Acid 0.5-1 mg ZowkxmNdrnvj3JLVVDRcffpNksohql 2021 11:00pm Complies with drug therapyPolysaccharide Iron Complex (Pro Fe) 180 mg iron TnldhgqOvsuhx356QEPQXqdif26747Pzidayo 2022 12:00amIron deficiency Iron deficiencyComplies with drug therapyNorgestimate-Ethinyl Estradiol (Sprintec (28)) 0.25-35 mg-mcg nchuifCqlayyppwkyt1SDYXUYr DirectedJuly 2018 11:00pmNovember 2021 9:48amCetirizine 10 mg ntygjyIarxdnujczst21OBNR DailyJuly 2018 11:00pm[facility] 2023 9:27amAlprazolam 1 mg tablet Zzwbgfhhssev8NBZWNsfbtlsEgmp 2018 11:00pm[facility] 2023 12:03pmAcyclovir 200 mg mldkxatKzseqymycrrq591SCFCCdomwIzkt 2018 11:00pmApril 2023 1:12pmTramadol 50 mg mlijqqRepyjjlgsjlb13OEMBGwsjzQitv 2018 11:00pm July 18, 2022 9:49amOmeprazole 20 mg capsule,delayed release(DR/EC) Irpumsdizims70VETOFtcorPoyc 2018 11:00pmJune 2023 7:18amIbuprofen 800 mg yatxodNnklalvhjwup873LLZKH1M as needed for jjdo485Rzlg 2018 11:00pm December 10, 2023 12:03pmOxycodone-Acetaminophen (Percocet) 5-325 mg tablet Hzcibqaemmct4TWCTQIVOYR 4-6 HOURS as needed for epmw3544Bskd 2018Nov2021 9:48amOther acute postprocedural painCephalexin 500 mg capsule Alkttvvodfrr492HEFXN7X4635Pxpx 2018 11:00pmOctober 2021 1:49pm Fluconazole (Diflucan) 150 mg vbczioBgbdixahqfot316WXNHYqzih947Ljtm 2018 2:15pmNovember 2021 9:48amadminister on day 1 of therapyMetoprolol Succinate 25 mg tablet extended release 24 hrDiscontinuedMGPOApril 2023 11:00pmJune 2023 9:15amTiotropium Dassel (Spiriva Respimat) 2.5 mcg/actuation qlcpQiquhmmjmcgt3DHPDMLAYUSAFSKYdzfrNxmey 2023 11:00pm July 14, 2024 8:03amtiotropium bromideDiscontinuedINHALATIONDailyApril 2023 11:00pmApril 2023 1:21pmvitamin E (dl, acetate)Oycqjzayeerp1OAWAU DailyApril 2023 11:00pmNovember 2023 10:33amDiclofenac Sodium (Voltaren Arthritis Pain) 1 % uwzUsainoiwnqeh8IUGHIGJOoxqx qatrw769644Xgbdg 2023 11:00pmJuly 2024 8:43vu2-0 grams topically twice dailyPrednisone 5 mg kurewmYltmlexmiaec5CTBATb Jglghefy3358Aifww 2023 11:00pm[facility] 2023 9:28amTake 4 pills by mouth x2 days, take 3 pills by mouth x2 days, take 2 pills by mouth x2 days, take 1pill by mouth x1 day.Acyclovir 400 mg tablet Eqtgdyjthzmh285PEIUAmye 2023 11:00pmJuly 2024 8:45amteepee splint- right thumbDiscontinued0.Route.ZSGZDXFJW75Dwdw 2023 7:41amDecember 2023 10:16amArthritis of carpometacarpal (CMC) joint of right thumb Arthritis of right hand Unilateral primary osteoarthritis of first carpometacarpal joint, right hand Primary osteoarthritis, right hand painAs directed. Please specialty order.Meloxicam 15 mg lrliqcLrvzydloyrbc45WUMR Jtiec170Ljmsof 2023 11:00pmAugust 2023 7:36ampainMeloxicam 15 mg rjvyygGilgkzljsdof52COBXJyfjs201Nlxpqn 2023 11:00pmOctober 2023 7:14amRight wrist pain Radial styloid tenosynovitis of right hand Arthritis of carpometacarpal (CMC) joint of right thumb Pain in right wrist Radial styloid tenosynovitis [de Quervain] Unilateral primary osteoarthritis of first carpometacarpal joint, right hand Ibuprofen 800 mg saencbLbznwkrzpirh169RIYMUhtnj 8 hours as needed for erwi625 June 24, 2024 11:00pmDecember 2023 8:10amRadial styloid tenosynovitis of right hand Right wrist pain Arthritis of carpometacarpal (CMC) joint of right thumb Arthritis of right hand Radial styloid tenosynovitis [de Quervain] Pain in right wrist Unilateral primary osteoarthritis of first carpometacarpal joint, right hand Primary osteoarthritis, right handMethylprednisolone 4 mg tablets,dose pack DiscontinuedMGPOJuly 2024 11:00pmOctober 2024 9:19amTramadol 50 mg ybmtpbGrprprayoveg97IXUBWymrp times daily as neededJuly 2023 11:00pmJuly 2023 2:51pmAlprazolam 1 mg xtfultXpuvdqlywetm1SUWEQtqjn daily as needed for dxjfn72004Ykkv 2023 8:13amAugust 2023 8:55pmPersistent insomnia Insomnia, unspecifiedTramadol 50 mg nalygrMvtrffhyycyj89LVIZFaxyv times daily November 16, 2023 12:00amMarch 2023 2:31pmteepee splint right thumb Discontinued0.Route.LAAKXJNVM88Eekek 2023 11:00pmApril 2023 3:12pmAs directedIbuprofen 800 mg xmqwzdNufygptoziwe362RZRJYxmio as needed for beuk481 December 10, 2023 12:00pmJuly 2023 7:45amAlprazolam 1 mg tabletDiscontinued 5TIVWHusqzsy85947Rfhwy 2023 12:01pmApril 2023 3:37pmPersistent insomnia Insomnia, unspecifiedteepee splint- right thumbDiscontinued0.Route.XKBDKXCWM17 February 11, 2024 11:00pmJuly 2023 7:41amArthritis of carpometacarpal (CMC) joint of right thumb Arthritis of right hand Unilateral primary osteoarthritis of first carpometacarpal joint, right hand Primary osteoarthritis, right hand painAs directed. Please specialty order.Omeprazole 40 mg capsule,delayed release(DR/EC)Sbtlal11NASVGfqgu76787Ztko 2024 7:59amComplies with drug therapyAmoxicillin-Pot Clavulanate 875-125 mg glqsvjGbyvjolyxkpm5TMYAZRhdke xpaow269Vakjovn 2023 11:00pmNovember 2023 10:32amFluconazole 150 mg eawqkkOrppxzigibky402ALLVP4H56Ncxrbzt 2023 11:00pmNovember 2023 10:33amAlprazolam 1 mg hjzkxuTqdexfnkjwyx3HKBAFrylr daily as needed for anxiety 02042AyoqfuelJuly 19, 2024 5:52amDecember 2023 10:07pmPersistent insomnia Anxiety Insomnia, unspecified Anxiety disorder, unspecifiedPrazosin 5 mg sqznntjAimtvzfdbbsx5JBLKZkuzo evening 300Nov2023 11:00pmJuly 22, 2024 8:35amDoxepin 3 mg tablet Oordjxqjmrnf7DEKIUhpra at bedtime as needed for ibwzu641Pbfnbrip 5th, 2024 12:00amNovember 2023 10:33amSertraline (Zoloft) 25 mg zjevfvXodvlyndufip13 MGPODailyFormerly [facility]2023 12:00amDeceer 2023 10:14amPyridoxine (Vitamin B6) 10 mg dnxyfyCanxaqoshclu44MKSXTropwQowprfgq 2023 12:00am August 20, 2024 10:15amTiotropium Dassel (Spiriva With Handihaler) 18 mcg capsule, w/inhalation qmsqpwInebyc1DOPBWSOCEFMYSJnsjfKme 2024 11:00pm puncture 1 cap using device; one dose = 2 inhalationsComplies with drug therapy Cetirizine (Zyrtec) 10 mg qpslwbwUrpkja96OGSORmhga as neededMay 2024 11:00pmComplies with drug therapyPyridoxine (Vitamin B6) 25 mg ccqydlDvuvxe02WX POThree times dailyDeceer 2023 12:00amComplies with drug therapy Sertraline (Zoloft) 25 mg ccgsiuQjlzyhqjeggf93RZNJBgizfJptpsjpg 2023 12:00amMarch 2024 9:08amAzithromycin 250 mg rayqxnTncboyfnwnkp2NQ.COMPLEX6 0Dece2023 12:00amMarch 2024 9:06amFor 250 mg dose pack: take 500 mg today (day 1), then 250 mg for 4 days (days 2-5) POPrazosin 5 mg capsule Aijovjrbiuqv2OWEKDleep khiebyw575Lgfmemuo 4th, 2024 10:19amJanuary 2024 12:12pmPrazosin 5 mg capsuleDiscontinued0.ROUTE.COMPLEX as neededMarch 2024 9:07amJuly 2024 8:43amTAKE 1 CAPSULE BY MOUTH IN THE EVENING PRN; Tramadol 50 mg ihtltkYusfgifwesbw85BOBCJmtjv daily as needed for tbnu28130Vgrsr 2024 10:03amMay 2024 1:25pmDislocation of temporomandibular joint Dislocation of jaw, unspecified side, sequelaAlprazolam 1 mg tabletDiscontinued1 MGPOTwice daily as needed for spjiejw12040Nassr 2024 10:04amMay 2024 1:25pmPersistent insomnia Anxiety Insomnia, unspecified Anxiety disorder, unspecifiedGabapentin 100 mg capsuleDiscontinuedMGPOJune 2024 11:00pmJuly 2024 8:49amGabapentin 100 mg mttvpzkGwyauzpofnnm538NGCD Three times dailyJuly 2nd, 2025 8:47amJuly 2024 3:44pmValacyclovir 500 mg gjkqykQizklc997LKAJLkiseLkhy 2024 11:00pmComplies with drug therapy Albuterol Sulfate 90 mcg/actuation HFA aerosol fxrexbzEftrub6UHIVXPVPDVHFCQDgmz times dailyJuly 2024 11:00pmComplies with drug therapySertraline 50 mg uwpvroUdeopr91CQUHOmhhuAecb 2024 11:00pmComplies with drug therapy Cyclosporine (Restasis) 0.05 % hyfdkdzptykWbptee8CPWLMVVR-JENZHrgky 12 hoursJuly 2024 11:00pmComplies with drug therapyOxcarbazepine (Trileptal) 300 mg pbusvqDlprnr7GLRxkpf mbpge208Lqqpiqc 2024 11:00pm1/2 po bid x 2 weeks then 1 po bid. orally twice daily;Complies with drug therapyTramadol 50 mg tablet Tojcib52WRVOAyott daily as needed for rkqa40747Fxsaiux 2024 8:43am Dislocation of temporomandibular joint Dislocation of jaw, unspecified side, sequelaComplies with drug therapy Immunizations Immunization Event Date Not Given Reason Dose Number Resident Services Manager Lot Number Reason(s) Given Vaccine Information Statement (VIS) Detail Administration Location influenza, unspecified formulation May 16, 2021 influenza, unspecified formulationSeptember 2021Tetanus, Diphtheria adult, 5 Lf pres free absOctober 2015 Medical Equipment Device Date Implanted Device Details Video capsule endoscopy system March 17, 2024 U DI: [id number] Issuing Agency: [employer] Device Id: [id number] Expiration Date: 2024-10-02 Lot Number: [id number] Serial Number: [id number] Relevant Diagnostic Tests and/or Laboratory Data Laboratory Results Test Collection Date/Time Result Date/Time Result Interpretation Reference Range Result Comment Performing Site Anion Gap July 31, 2025 1:22pm July 31, 2025 1:22pm 7.6 Percent Reticulocyte CountNovember 2024 1:22pmNovember 2024 1:22pm 1.44 %0.60-3.10Basophils # (Auto)July 31, 2025 1:pmJuly 31, 2025 1:22pm0.1 10 3/uL0.0-0.1Albumin/Globulin RatioNove2024 1:pmJuly 31, 2025 1:22pm1.4Basophils (%) (Auto)July 31, 2025 1:pmJuly 31, 2025 1:pm0.6 %0.2-2.0AlbuminNov2024 1:pmJuly 31, 2025 1:pm4.0 g/dL3.4-5.0Eosinophils # (Auto)July 31, 2025 1:2024 1:22pm0.1 10 3/uL0.0-0.7Alkaline PhosphataseJuly 31, 2025 1:2024 1:pm56 U/U49-578Rtbljbxobvv (%) (Auto)July 31, 2025 1:pmJuly 31, 2025 1:22pm1.0 %0.9-7.0Alanine Aminotransferase (ALT/SGPT)July 31, 2025 1:2024 1:pm28 U/L14-59 HematocritJuly 31, 2025 1:2024 1:pm39.8 %36.0-48.0 Aspartate Amino Transf (AST/SGOT)July 31, 2025 1:2024 1:pm20 U/A93-10LeversceklQrjuqafu 14th, 2025 1:2024 1:pm 14.1 g/dL12.0-16.0BUN/Creatinine RatioNove2024 1:2024 1:pm25.4Immature Granulocyte # (Auto)July 31, 2025 1:pmJuly 31, 2025 1:22pm0.03 10 3/uL0.00-0.03Blood Urea NitrogenJuly 31, 2025 1:pmJuly 31, 2025 1:pm16.0 mg/dL7.0-18.0Immature Granulocyte % (Auto) July 31, 2025 1:2024 1:pm0.4 %0.0-0.5Calcium Level July 31, 2025 1:2024 1:pm8.8 mg/dL8.5-10.1Lymphocytes # (Auto)July 31, 2025 1:pmJuly 31, 2025 1:pm1.8 10 3/uL1.2-3.8 Chloride LevelJuly 31, 2025 1:2024 1:02of744 mmol/L 98-107Lymphocytes (%) (Auto)July 31, 2025 1:2024 1:pm 21.6 %20.5-60.0Carbon Dioxide LevelJuly 31, 2025 1:2024 1:pm31.7 mmol/L21.0-32.0Mean Corpuscular HemoglobinJuly 31, 2025 1:pm July 31, 2025 1:pm36.8 pgAbove high zuhmdy79.7-34.0CreatinineJuly 31, 2025 1:2024 1:pm0.63 mg/dL0.55-1.02Mean Corpuscular Hemoglobin ConcentJuly 31, 2025 1:2024 1:pm35.4 g/dL Above high gjymke95.9-35.2Estimated GFR ()July 31, 2025 1:2024 1:pm>60>=60 mL/min/1.73m 2Mean Corpuscular Volume July 31, 2025 1:2024 1:78rs232.9 fLAbove high normal 81.0-99.0Estimated GFR (Non- AmericanNov2024 1:pmJuly 31, 2025 1:22pm>60>=60 mL/min/1.73m 2Monocytes # (Auto)July 31, 2025 1:pmJuly 31, 2025 1:pm0.4 10 3/uL0.3-0.8GlobulinJuly 31, 2025 1:pmJuly 31, 2025 1:22pm2.8 g/dLMonocytes (%) (Auto)July 31, 2025 1:pmJuly 31, 2025 1:pm4.9 %1.7-12.0Glucose LevelJuly 31, 2025 1:2024 1:41ep709 mg/kQ90-382Lxfr Platelet VolumeJuly 31, 2025 1:pmJuly 31, 2025 1:22pm9.3 fLBelow low normal9.5-13.5 Potassium LevelJuly 31, 2025 1:2024 1:pm4.3 mmol/L 3.5-5.1Neutrophils # (Auto)July 31, 2025 1:pmJuly 31, 2025 1:22pm 6.0 10 3/uL1.4-6.5Sodium LevelJuly 31, 2025 1:2024 1:65kj679 mmol/Z144-674Ifsdqfirxux (%) (Auto)July 31, 2025 1:pmJuly 31, 2025 1:71.5 %43.0-75.0Total BilirubinJuly 31, 2025 1:22pm July 31, 2025 1:22pm0.3 mg/dL0.2-1.0Platelet CountJuly 31, 2025 1:2024 1:56dc945 10 3/jD776-557Xajgc ProteinJuly 31, 2025 1:pmJuly 31, 2025 1:pm6.8 g/dL6.4-8.2Red Blood CountJuly 31, 2025 1:pmJuly 31, 2025 1:22pm3.83 10 6/uLBelow low normal4.20-5.40 Red Cell Distribution WidthJuly 31, 2025 1:22pmNov2024 1:22pm 12.7 %11.0-15.0Corrected White Blood CountJuly 31, 2025 1:22pmNov2024 1:22pm8.4 10 3/uL4.0-11.0 Vital Signs Vital Reading Result Reference Range Collection Date/Time Height 66 [in_i] July 06, 2025 9:85lzEscffo65.15 kgOctuofl [facility] 2024 9:29amHeart Rate97 /oxg29-574Ctqensc 2024 9:29amOxygen saturation by Pulse iqkxsydf83 %95-100 July 06, 2025 9:29amBP Klquuqnz691 mm[Hg]100-140[facility] 2024 9:29amBP Umurnhlxd36 mm[Hg]60-100Octuofl [facility] 2024 9:29amBMI (Body Mass Index)20.3 kg/u8Olxtnxp 2024 9:54zgIppmyc09 [in_i]July 17, 2025 8:14amWeight 53.07 kgOctuofl health - [facility] and [facility] 2024 8:14amHeart Rate93 /ysv06-501Yevxkyv 2024 8:14amBP Duumkjnn976 mm[Hg]100-140Octuofl [facility] 2024 8:14amBP Zujlxslnw47 mm[Hg] 60-100Octuofl [facility] 2024 8:14amBMI (Body Mass Index)18.8 kg/b0Cgjvbdc 2024 8:14am Advance Directives Advance Directive Response Recorded Date/ Time Advance Directives No August 18, 2024 10:00am Insurance Providers Guarantor Katy Flores Address [address] [facility] [facility] [address]Lemivxk Info.Home Phone: Payer Group Member ID Coverage Type Subscriber Relationship to Subscriber Effective Date Expiration Date SAMUEL [id number] Francis Id: [id number] [address] [address] Home Phone: self Encounters Encounter Location(s) Arrival/Admit Date Discharge/Departure Date Discharge/Departure Disposition Provider(s) Non-patient / Non-visit -[facility] Octob er 2024 10:09am Elida Moreau , CMADeparted Physician/Provider Office Visit-[facility] [place] 10:25amOctober 2024 11:02amDischarged to home care or self care (routine discharge)Nidia Lambert , DODeparted Physician/Provider Office Visit-[facility]opedicsOctober 2024 9:58amOctober 2024 10:47amDischarged to home care or self care (routine discharge)Destiny Rodriguez , MDDeparted Physician/Provider Office Visit- [facility]mt [place] 2024 10:13amOctober 2024 10:53amDischarged to home care or self care (routine discharge)Jas Frausto MDDeparted Physician/Provider [facility] 9:11amOctober 2024 10:38amDischarged to home care or self care (routine discharge)Leanne Stanford MDNon-patient / Qat-rwvmj-[facility] 2024 1:22pmJeanette Jimenes NP-C Recent Diagnosis Onset Date Admit Date Allodynia [...] joint) Unk nown July 17, 2025 9:11am Assessments Diagnosis Onset Date Resolution Status Admit [...] 2024 9:11amTMJ (dislocation of temporomandibular joint)acuteOctober 2024 9:11am Plan of Treatment Author [facility]AuthoredOctober 2024 8:52pmExtensive discussion about current condition and [...] area of steroid injection. Author Nidia Lambert [facility]AuthoredOctober 2024 10:02za19-[id number] female with an odd constellation of symptoms. [...] new issues or questions. Author Colton Montes [facility] HospitalAutredOctober 2024 9:54amWe discussed treatment options for the [...] severe. Above note written by ANGY Stark, Cad Drafter. Edited and approved by Dr. Tad Zapata MD Author Leanne Stanford [facility] HospitalAutredNovember 2024 2:30pmCheck Xray. Consider ortho v. PT. pt on tramadol 1 daily. she understands this is a controlled substance. [place]. 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 Will reach out if Dr Zapata can help w this chronic problem as well. She has been to dental locally and in [place]. Referral to Dr. Zapata completed and she [...] Tests Test Name Ordered Date Scheduled Date XR cervical spine LAT/FLX/EXT July 13, 2025 9:54am XR knee RT 4V*July 17, 2025 8:38am Future Visits Future appointment information is unavailable Future Procedures Future procedure information is unavailable Future Medications Future medication information is unavailable Patient Instructions Patient instructions are unavailable
--- OUTSIDE RECORDS SUMMARY | 2025-08-17 09:52 | XMS_ITS | Clinical Summary ---
Author Organization [facility] Address [address] [place] [address] Care Team Providers Care Documentation Designer Name Role Phone Leanne Stanford MD Primary Care Provider [phone] Allergies Active AllergyReactionsCriticalityNoted DateCommentsCat DanderUnknownLow 3Dust Mite WgsmqpxPssifjsLto98/28/8685KcqoxzynUmiofhvDde50/28/2023Molds & GemuqCiywtBzo25/28/2023 Medications MedicationSigDispense QuantityRefillsLast FilledStart DateEnd DateStatus ALPRAZolam (Xanax) 1 MG tablet Active ibuprofen 800 MG tablet 3Active Restasis 0.05 % ophthalmic emulsion Administer 1 drop into both eyes in the morning and 1 drop before bedtime. 12/11/2023ctive traMADol (Ultram) 50 MG tablet 11/16/2023ctive omeprazole (PriLOSEC) [address] capsule Take 40 mg by mouth Daily06/08/2024ctive Ciclopirox 1 % shampoo 5Active gabapentin (Neurontin) 100 MG capsule Indications:ParesthesiasTake one cap every 8 hours or all at bedtime 90 capsule 5Active cetirizine (ZyrTEC) 10 MG tablet Take by mouthActive tiotropium (Spiriva Respimat) 2.5 MCG/ACT inhaler Indications:Chronic obstructive pulmonary disease, unspecified COPD type (HCC) Inhale 2 puffs Daily 1 each /ctive albuterol HFA (ProAir HFA) 90 mcg/act inhaler Indications:Chronic obstructive pulmonary disease, unspecified COPD type (HCC) Inhale 2 puffs every 4 (four) hours if needed for wheezing 18 g 1105/27//6Active iron polysaccharides (ProFe) 391.3 (180 Fe) MG capsule Indications:Iron deficiencyTake 1 capsule (391.3 mg) by mouth Daily 90 capsule 5Active valACYclovir (Valtrex) 500 MG tablet Indications:Chronic vulvitisTAKE 1 TABLET BY MOUTH TWICE A DAY FOR 3DAYS THEN 1 TABLET DAILY 30 tablet 5Active pyridoxine (Vitamin B-6) 25 MG tablet Indications:Mood swingsTake 1 tablet (25 mg) by mouth every 8 (eight) hours 120 tablet 311516Active valACYclovir (Valtrex) 500 MG tablet Indications:Chronic vulvitisTake 1 tablet (500 mg) by mouth twice daily for 3 days. Then daily 30 tablet /11/2024Discontinued pyridoxine (Vitamin B-6) 25 MG tablet Indications:Mood swingsTAKE 1 TABLET (25 MG) BY MOUTH EVERY 8 (EIGHT) HOURS 90 tablet Discontinued Active Problems ProblemNoted DateDiagnosed DateOther specified diseases of tchlmeuaipd35/25/2024 Right upper quadrant pain10/11/2023hronic obstructive pulmonary disease 07/18/2023igarette hcjgvs9507/18/2023 Resolved Problems ProblemNoted DateDiagnosed DateResolved DateMixed qcmuslupnmlk03/14/2024 06/30/2024bdominal paindult celiac ibfvmsq7612/28/2023 12/28/2023rthritis of carpometacarpal (CMC) joint of right thumb12/28/2023 12/28/2023ontusion of right foot/e Quervain's tenosynovitis, rightHistory of nkzayzrvfky09/12/2024 12/28/2023Iron deficiency rjkmso62Insomnia, persistent /estless leg wrqpbsta15eroneal tendinitis, right legight hand pain Right wrist pain4Chronic allergic lvjprbic08/01/2023 07/18/2023llergic rhinitis due to Dermatophagoides lczqhvo20 Bipolar II jbqckfbn27hronic gjgwyahba26IN I (cervical intraepithelial neoplasia I)ysmenorrhea Menorrhagia with irregular cycleMixed stress and urge ogtaqmaahayh54enital herpes khlghhh8109/22/2009 07/18/2023Endometriosis of kkiouc47 Encounters DateTypeDepartmentCare RwnqTojdrsubrzh70/01/2025Refill [facility] [place] [facility] [address] [place] [address] Stevan Esteves MD Chronic vulvitis; Mood nixmli94Results Follow-Up [facility] [address] [place] [address] Stevan Esteves MD Follicle stimulating boilevt7707/13/2025 7:55 AM EDTOffice Visit [facility] [address] [place] [address] Stevan Esteves MD History of endometrial ablation; Amenorrhea; Asymptomatic menopausal state; Anemia, unspecified type; Other iron deficiency anemia; Mood swings; HSV (herpes simplex virus) infection; Myoma; Vaginal atrophy; Hormone imbalance; Insomnia, unspecified type; Hx of ovarian cyst; LGSIL of cervix of undetermined significance; History of abnormal cervical Pap smear07/10/2025Orders Only [facility] [address] [place] [address] Stevan Esteves MD Asymptomatic menopausal state07/09/2025Results Follow-Up [facility] [address] [place] [address] Stevan Esteves MD Ferritin, Estradiol, Stdmxm7007/08/2025 9:15 AM EDTOffice Visit [facility] [address] [place] [address] Stevan Esteves MD Encounter for screening for cervical cancer (Primary Dx); Encounter for screening mammogram for malignant neoplasm of breast; Encounter for gynecological examination without abnormal finding; History of endometrial ablation; Asymptomatic menopausal state; Anemia, unspecified type; Other iron deficiency anemia; Abnormal TSH; Mood swings; Myoma; Other fatigue; Vaginal atrophy; Abnormal CBC; Hx of ovarian cyst; LGSIL of cervix of undetermined significance; History of abnormal cervical Pap smear; Hormone palyuuxrp07/22/2025 8:30 AM EDTAncillary Procedure [facility] [address] [place] [address] Cysts of both xyxsytn9907/08/20257128Fblyii07/02/2025Results Follow-Up [facility] [address] [place] [address] Stevan Esteves MD CBC06/08/2025Refill [facility] [address] [place] [address] Debbi Keller LPN Iron eredyynyaj97/02/2025 1:00 PM EDTOffice Visit [facility] [address] [place] [address] Marta Hernandez DO Chronic obstructive pulmonary disease, unspecified COPD type (HCC) (Primary Dx); Cigarette ivokuy6505/19/2025amboo flowsheet [facility] [address] [place] [address] Marta Hernandez DO 05/19/2025Travelfrom Last 3 Months Immunizations ImmunizationAdministration DatesNext DueInfluenza, Rhsstflzjnu36/07/2022, 05/16/2021,06/10/2019,08/31/2018,06/20/2016Influenza, injectable, MDCK, preservative free, vanhlvmidhao01/07/2022,08/31/2018Influenza, injectable, quadrivalent, preservative free05/16/2021,06/10/2019,08/01/2017,06/20/2016Td (adult), 5 Lf tetanus toxoid, preservative free, suvmgonz03/04/2016Tdap 04/20/2020 Family History Medical HistoryRelationNameCommentsAlzheimer's diseaseFatherDiabetesFatherHeart diseaseFatherHypertensionFatherKidney failureFatherMental illnessFatherOther cancerFatherbladderProstate cancerFatherStrokeFatherLeukemiaMaternal Grandmother Breast cancerNeg HxColon cancerNeg HxOvarian cancerNeg HxRelationNameStatus CommentsFatherDeceasedMaternal GrandfatherDeceasedMaternal GrandmotherDeceased MotherAlivePaternal GrandfatherDeceasedPaternal GrandmotherDeceasedSonAlivex2 Social History Tobacco UseTypesPacks/DayYears UsedDateSmoking Tobacco: Every UcpAjwmqegdkq051 Smokeless Tobacco: Never Tobacco Cessation:Ready to Q uit: Not Asked; Counseling Given: Not Answered Alcohol UseStandard Drinks/WeekCommentsNever0 (1 standard drink = 0.6 oz pure alcohol)caffeine intake: 2-3 cups per day of coffee, soda/popPHQ-2AnswerDate RecordedPatient Health Questionnaire-2 Mybhg739EducationAnswerDate RecordedWhat is the highest level of school you have completed or the highest degree you have received?High school pwilmpjf01/01/2023CommentsNoSex and Gender InformationValueDate RecordedSex Assigned at BirthNot on fileLegal Sex Rpgwtb9311/29/2022 6:41 PM EDTGender IdentityNot on fileSexual OrientationNot on fileOccupationIndustryJob Start DateJob End DateUnemployed, Self-employed- house cleanerNot on fileNot on fileNot on file Last Filed Vital Signs Vital SignReadingTime TakenCommentsBlood Kwaweror576/6807/08/2025 9:08 AM EDT Sgfon8170 1:03 PM WYVQcdedfsugab04.7 ??C (98 ??F)01/16/2025 5:36 PM EDT Respiratory Pncn667110/08/2023 3:36 PM ESTOxygen Hegtjjnfmi66%05/19/2025 1:03 PM EDTInhaled Oxygen Concentration--Laxhpx44.2 kg (115 lb)07/08/2025 9:08 AM EDT Swvmcg817.6 cm (5' 6 )05/19/2025 1:03 PM EDTBody Mass Index18.5609 1:03 PM EDT Plan of Treatment DateTypeDepartmentCare Team (Latest Contact Info)Bamnniacbup55/03/2026 1:45 PM ESTOffice Visit [facility] [address] [place] [address] Marta Hernandez, DO [address] [place] [address] 01/06/2026 8:30 AM EDTAncillary Procedure [facility] [place] [facility] [address] [place] [address] 01/06/2026 9:00 AM EDTOffice Visit [facility] [place] [facility] [address] [place] [address] Stevan Esteves MD [address] [place] [address] Procedures Procedure NamePriorityDate/TimeAssociated XvhhsquraZvglqdrmMKUIrhjbbx70/27/2025 10:08 AM EDT Asymptomatic menopausal state FOLATE, YZTXWWkwxdjo07/22/2025 9:50 AM EDT Anemia, unspecified type Abnormal CBC HKZJGXVGRlhtrnm66/22/2025 9:50 AM EDT Anemia, unspecified type Abnormal CBC SFLAGBMZMNygrers40/22/2025 9:49 AM EDT Asymptomatic menopausal state US PELVIS EXUCXUVZSRVUVgykhqc48/22/2025 8:51 AM EDT Cysts of both ovaries IGP, APT HPV,RFX 16/18,18Gwtmjqy68/22/2025 12:00 AM EDT Encounter for gynecological examination without abnormal finding Encounter for screening for cervical cancer LGSIL of cervix of undetermined significance History of abnormal cervical Pap smear IRON AND TOTAL IRON BINDING YGHOPQHFIahgtcc73/01/2025 11:38 AM EDT Iron deficiency FCFEmzyebb05/01/2025 11:38 AM EDT Iron deficiency from Last 3 Months Results * Follicle stimulating hormone (07/13/2025 10:08 AM EDT)ComponentValueRef Range Test MethodAnalysis TimePerformed AtPathologist YelqanusdLYQ41.3mIU/mLL[facility]P Comment: ? Adult Female ? Range ?Follicular phase ?3.5 - ??12.5 ?Ovulation phase ? 4.7 - ??21.5 ?Luteal phase ?1.7 - ?? 7.7 ?Postmenopausal ? 25.8 - 134.8 Specimen (Source)Anatomical Location / LateralityCollection Method / Volume Collection TimeReceived TimeBloodVenous blood specimen / Yxqifjw8007/13/2025 10:08 AM EDT10//2025Comment:BLOOD, VENOUS Narrative [facility] - 07/14/2025 12:08 PM EDT Performed at: [address] [place] [address] ??[id number] [employer] Forming Machine Operator: Andres Arboleda PhD, Phone: ??[phone] Authorizing ProviderResult TypeResult StatusStevan NEGRON BLOOD ORDERABLESFinal ResultPerforming OrganizationAddressty/State/ZIP CodePhone Number [facility] * Folate (07/08/2025 9:50 AM EDT)ComponentValueRef RangeTest MethodAnalysis Time Performed AtPathologist SignatureFolate>20.0>3.0 ng/mLLABCORPComment: A serum folate concentration of less than 3.1 ng/mL is considered to represent clinical deficiency. Specimen (Source)Anatomical Location / LateralityCollection Method / Volume Collection TimeReceived TimeBloodVenous blood specimen / Tburquk1307/08/2025 9:50 AM EDT1 Narrative [facility] - 07/09/2025 4:06 AM EDT Performed at: - [address] ??[id number] [employer] Forming Machine Operator: Andres Arboleda PhD, Phone: ??[phone] Authorizing ProviderResult TypeResult Zohreh NEGRON BLOOD ORDERABLESFinal ResultPerforming OrganizationAddressty/State/[facility] CodePhone Number [facility] * (ABNORMAL) Ferritin (07/08/2025 9:50 AM EDT)ComponentValueRef RangeTest Method Analysis TimePerformed AtPathologist SnystyomrOegnfltf850(H)15 - 150 ng/mL [facility]PSpecimen (Source)Anatomical Location / LateralityCollection Method / VolumeCollection TimeReceived TimeBloodVenous blood specimen / Unknown 07/08/2025 9:50 AM EDT1 Narrative [facility] - 07/09/2025 4:06 AM EDT Performed at: [address] [place] [address] ??[id number] [employer] Forming Machine Operator: Andres Arboleda PhD, Phone: ??[phone] Authorizing ProviderResult TypeResult Zohreh NEGRON BLOOD ORDERABLESFinal ResultPerforming OrganizationAddressCity/State/ZIP CodePhone Number [facility] * Estradiol (07/08/2025 9:49 AM EDT)ComponentValueRef RangeTest MethodAnalysis TimePerformed AtPathologist QqufhhkjaYarsitirx316.0pg/mLLABCORPComment: ? Adult Female ? Range ?Follicular phase ? 12.5 - 166.0 ?Ovulation phase ?85.8 - 498.0 ?Luteal phase ? 43.8 - 211.0 Postmenopausal <6.0 - 54.7 ? 1st trimester 215.0 - >4300.0 Beulah ECLIA methodology Specimen (Source)Anatomical Location / LateralityCollection Method / Volume Collection TimeReceived TimeBloodVenous blood specimen / Pnqoroa3607/08/2025 9:49 AM EDT1 Narrative [facility] - 07/09/2025 4:06 AM EDT Performed at: 01 - [address] ??[id number] [employer] Forming Machine Operator: Andres Arboleda PhD, Phone: ??[phone] Authorizing ProviderResult TypeResult StatusStevan NEGRON BLOOD ORDERABLESFinal ResultPerforming OrganizationAddressCity/State/ZIP CodePhone Number [facility] * US pelvis transvaginal (07/08/2025 8:51 AM EDT)Anatomical RegionLaterality ModalityPelvisUltrasoundStudy GAStudy DateStudy EDDWorking YOSELIN (Source) 07/08/2025Specimen (Source)Anatomical Location / LateralityCollection Method / VolumeCollection TimeReceived Time Narrative 07/15/2025 9:38 AM EDT Images from the original result were not included. ?? Obstetrics & Gynecology ? [address] ? [address] ? [address] ?[address], [facility] ? [place] [address] ?[place] [address] ? - - - - - - - - - - - - - - - - - - - - - - - - - - - - - - - - - - - - - - - - - - - - - - - - - - - - - - - - - - - - - - - - - - Pelvic Ultrasound Patient name: Katy Flores : 1975 (50 y.o.) Date of exam: 07/08/25 - - - - - - - - - - - - - - - - - - - - - - - - - - - - - - - Indication: ovarian cyst Surgical History: BTL, Endometrial ablation Method: Transvaginal ultrasound examination View: Adequate - - - - - - - - - - - - - - - - - - - - - - - - - - - - - - - Measurements: Uterus: 7.6 x 5.5 x 4.2 cm ??Volume: 91.4 cm?? Endometrial thickness: 4.2 mm Right ovary: 2.9 x 1.8 x 1.7 cm ??Volume: 4.5 cm?? Left ovary: 3.9 x 3.1 x 2.7 cm Volume: 16.5 cm?? - - - - - - - - - - - - - - - - - - - - - - - - - - - - - - - Findings: Uterus: The uterus is normal in size and contour. Position: Retroverted Malformations: none Myometrium: The myometrium is rather inhomogenous in echotexture. Prominent vascularities noted in the periphery of the uterus. Fibroid(s): no overt fibroid(s) Endometrium: The patient has a history of an endometrial ablation. There appears to be remaining endometrial tissue. Cervix: The cervix appears unremarkable. - - - - - - - - - - - - - - - - - - - - - - - - - - - - - - - Right ovary: Visualized Cyst(s): The right ovary contains multiple cysts, the largest two measure: 1. thin-walled, sonolucent, contains mild internal debris (1.2 x 1.2 x 1.3 cm) 2. thin-walled, sonolucent (1.6 x 0.8 x 1.7 cm) Doppler: power doppler shows ovarian blood profusion Right adnexa: no overt adnexal mass - - - - - - - - - - - - - - - - - - - - - - - - - - - - - - - Left ovary: Visualized Cyst(s): The left ovary contains a single thin-walled, sonolucent cyst, measuring 2.3 x 3.1 x 2.6 cm. Doppler: power doppler shows ovarian blood profusion Left adnexa: no overt adnexal mass - - - - - - - - - - - - - - - - - - - - - - - - - - - - - - - Cul de Sac: no free fluid - - - - - - - - - - - - - - - - - - - - - - - - - - - - - - - - - - - - - - - - - - - - - - - - - - - - - - - - - - - - - - - - - - Impression: The uterus is normal in size and contour. The myometrium is rather inhomogenous in echotexture. The arcuate vessels appear prominent. The patient has a history of an endometrial ablation. There appears to be remaining endometrial tissue, measuring up to 4.2 mm. The right ovary contains multiple sonolucent cysts with the largest measuring 1.6 x 0.8 x 1.7 cm. The left ovary contains a single sonolucent cyst measuring 2.3 x 3.1 x 2.6 cm. There is no free fluid visible within the pelvis. - - - - - - - - - - - - - - - - - - - - - - - - - - - - - - - - - - - - - - - - - - - - - - - - - - - - - - - - - - - - - - - - - - Ordering/Reading Provider: Stevan Esteves M.D. ??Software Test Automation Engineer: Amanda Jameson RDMS Authorizing ProviderResult TypeResult StatusStevan Esteves MDIMJuly US PROCEDURES Final Result * IGP, APT HPV,RFX 16/18,45 (07/08/2025 12:00 AM EDT)ComponentValueRef RangeTest MethodAnalysis TimePerformed AtPathologist SignatureDiagnosis:CommentLABCORP Comment:NEGATIVE FOR INTRAEPITHELIAL LESION OR MALIGNANCY.Specimen Adequacy: CommentLABCORPComment: Satisfactory for evaluation. ??Endocervical and/or squamous metaplastic cells (endocervical component) are present. Clinician Provided ICD10:CommentLABCORPComment: Z01.419 Z12.4 R87.612 Z87.42 Performed By:CommentLABCORPComment:Stevie Cartagena, Pipeline Gang Supervisor ([facility])Cyto Comments. LABCORPNote:CommentLABCORPComment: The Pap smear is a screening test designed to aid in the detection of premalignant and malignant conditions of the uterine cervix. ??It is not a diagnostic procedure and should not be used as the sole means of detecting cervical cancer. ??Both false-positive and false-negative reports do occur. Test Methodology:CommentLABCORPComment: This liquid based ThinPrep(R) pap test was interpreted using the [employer](R) Genius(TM) Cervical Algorithm whole slide imaging system. HPV AptimaNegativeNegativeLABCORPComment: This nucleic acid amplification test detects fourteen high-risk HPV types (16,18,31,33,35,39,45,51,52,56,58,59,66,68) without differentiation. Specimen (Source)Anatomical Location / LateralityCollection Method / Volume Collection TimeReceived TimeVaginal Fluid Narrative [facility] - 07/12/2025 4:07 PM EDT Performed at: [address] [place] [address] ??[id number] [employer] Forming Machine Operator: Faviola Wade MD, Phone: ??[phone] Performed at: ??02 - [facility] [address] ??[id number] Mat[employer] Forming Machine Operator: Faviola Wade MD, Phone: ??[phone] Specimen Comment: No. of containers..01 ThinPrep Vial Authorizing ProviderResult TypeResult StatusStevan Esteves MDLAB BLOOD ORDERABLESFinal ResultPerforming OrganizationAddressCity/State/ZIP CodePhone Number [facility] * Iron and TIBC (06/17/2025 11:38 AM EDT)ComponentValueRef RangeTest Method Analysis TimePerformed AtPathologist SignatureIron Bind.Cap.(TIBC)381854 - 450 ug/pVZBVYIYONGJL155556 - 425 ug/hQYLUIVEWFxij6945 - 159 ug/dLLABCORPIron Mswqyioqew7709 - 55 %[facility]PSpecimen (Source)Anatomical Location / Laterality Collection Method / VolumeCollection TimeReceived TimeBloodVenous blood specimen / Uljnkrz9606/17/2025 11:38 AM EDT1 Narrative [facility] - 06/18/2025 7:07 AM EDT Performed at: 01 - [facility] [address] ??[id number] Mat[employer] Forming Machine Operator: Andres Arboleda PhD, Phone: ??[phone] Authorizing ProviderResult TypeResult StatusStevan Esteves MDSATANTA DISTRICT [facility] BLOOD ORDERABLESFinal ResultPerforming OrganizationAddressty/State/ZIP CodePhone Number [facility] * (ABNORMAL) CBC (06/17/2025 11:38 AM EDT)ComponentValueRef RangeTest Method Analysis TimePerformed AtPathologist SignatureWBC8.03.4 - 10.8 x10E3/uLLABC[facility]P RBC3.983.77 - 5.28 x10E6/wNGHUFHTBNho61.011.1 - 15.9 g/vKZOJNCSJZvq45.334.0 - 46.6 %LOPYUCAUYD345(H)79 - 97 wZVXNRSELETJ08.2(H)26.6 - 33.0 oxTYPXGBGHVAK96.9 31.5 - 35.7 g/tCOUTCWEMFMD07.111.7 - 15.4 %LBGKCYCEqcoycstx269991 - 450 x10E3/uLLABCORPSpecimen (Source)Anatomical Location / LateralityCollection Method / VolumeCollection TimeReceived TimeBloodVenous blood specimen / Kwkukyd2206/17/2025 11:38 AM EDT1 Narrative [facility] - 06/18/2025 7:07 AM EDT Performed at: 01 - [facility] [address] ??[id number] Mat[employer] Forming Machine Operator: Andres Arboleda PhD, Phone: ??[phone] Authorizing ProviderResult TypeResult StatusStevan Esteves MDLAB BLOOD ORDERABLESFinal ResultPerforming OrganizationAddressCity/State/ZIP CodePhone Number [facility] from Last 3 Months Insurance Care Teams Team MemberRelationshipSpecialtyStart DateEnd Leanne Vaengas MD [address] [place] [phone] PCP - GeneralFamily Vjnvjtnn32/30/23
--- OUTSIDE RECORDS SUMMARY | 2025-08-17 09:57 | XMS_ITS | CCD ---
Author Organization [facility] Care Team Providers Care Photo Retoucher Name Role Phone NO FAMILY, PHYSICIAN Primary Care Provider Dianava DO Dio Randall Attending Provider FERNANDA CONCEPCION Primary Care Physician MD Kye Apodaca Attending Provider MD Stevan Alicia Referring Provider MD Fernanda Concepcion Primary Care Provider [phone] VIKRAM OSUNA V [...] MD Fernanda Concepcion Primary Care Provider [phone] MD Fernanda Concepcion Attending Provider RHONDA Kaplan [...] MD Fernanda Concepcion Primary Care Provider [phone] MD Destiny Rodriguez Attending Provider [phone] MD Spencer Valadez Attending Provider MD Fernanda Concepcion Primary Care Provider [phone] MD Destiny Rodriguez Attending Provider MD Fernanda [...] E Attending Unavailab PRASANTH [place] Referring Unavailable ChristiGrma stern Admitting Unavaila ble ChristGirma stern Attending [...] Care Provider MD Fernanda Concepcion Attending Provider [phone] Fernanda Concepcion MD Primary Care Provider Fernanda Concepcion MD Attending Provider Ute Griffin APRN Attending Provider Stevan Alicia MD Referring Provider Ute Griffin APRN Attending Provider Stevan Alicia MD Referring Provider Fernanda Concepcion MD Primary Care Provider Ute Griffin APRN Attending Provider Stevan Alicia MD Referring Provider [phone] Fernanda Concepcion MD Attending Provider Fernanda Concepcion MD Primary Care Provider Ute Griffin APRN Attending Provider Stevan Alicia MD Referring Provider Fernanda Concepcion MD Attending Provider [phone] Fernanda Concepcion MD Primary Care Provider Fernanda Concepcion MD Primary Care Provider Fernanda Concepcion MD Primary Care Provider Marta Hernandez DO Attending Provider Ute Griffin APRN Attending Provider [phone] Stevan Alicia MD Referring Provider [phone] Fernanda Concepcion Primary Care Unavailable Ute Griffin [...] Unavailable Fernanda Concepcion MD Primary Care Provider [phone] Fernanda Concepcion MD Primary Care Provider Destiny Rodriguez MD Attending Provider Jalil DOMINGUEZ-C, Jeanette E Attending Provider Fernanda Concepcion MD Referring Provider Tad Zapata MD Attending Provider [phone] Cathryn Lambert DO Attending Provider [phone] Fernanda Concepcion MD Attending Provider Destiny Rodriguez MD Attending Provider Fernanda Concepcion MD Primary Care Provider Tad Zapata MD Attending Provider Elida Moreau CMA Attending Provider Unavaila ble Cathryn Lambert DO Attending Provider [phone] Destiny Rodriguez MD Attending Provider CANDICE PALENCIA Attending Unavailable STEVAN ALICIA Attending Unavailable MARKEL VICENTE Attending Unavailable MARKEL VICENTE Referring Unavailable MARTA HERNANDEZ Attending Unavailable STEVAN ALICIA Referring Unavailable MARTA HERNANDEZ Attending Unavailable STEVAN ALICIA Attending Unavailable Fernanda Concepcion MD Attending Provider [phone] Allergies Allergy ClassificationReported Allergen(s)Allergy TypeDate of OnsetReaction(s) FacilityAcetaminophen (1 source)AcetaminophenDrug Rprrjhz41-45-6263Ynqtsfw ReactionUniversity Hospitals Lake West Medical CenterCephalosporins (antibiotic) (1 source)cefdinirDrug Bfrhfko74-25-9604Hyvmhto ReactionUniversity Hospitals Lake West Medical Centercyclobenzaprine (1 source)cyclobenzaprineDrug Oehhafs62-35-0516Mtunxww ReactionUniversity Hospitals Lake West Medical CenterOpioid Agonists (1 source)oxyCODONEDrug Bqhcktx51-19-3348Tshoigj ReactionUniversity Hospitals Lake West Medical Center (17 sources)Acetaminophen / oxyCODONEDrug AllergyUnkNuiku Other (19 sources)cefdinirDrug Ylvjpee47-92-9626Eqorbul, Unknown ReactionUniversity Hospitals Lake West Medical Center (17 sources)cyclobenzaprineDrug AllergyUnkHydro-RunResearch [facility] Linksify Other (2 sources)Acetaminophen / oxyCODONEDrug AllergyThe [facility] (3 sources)Allergies ReconciledPropensity to adverse reactionsHarry S. Truman [facility] Linksify Other (3 sources)patient allergy list reviewed by nurse or physiciaPropensity to adverse wpurrbjwj44-72-7397Pjteeol:[facility] Linksify Other (3 sources)Flexeril *MUSCULOSKELETAL THERAPY AGENTS*Propensity to adverse -[phone] Linksify Other (20 sources)GlycerinDrug Kjaotko22-86-0390GcbkeiuXZSO Healthcare (20 sources)House dust miteAllergy to wgwpcinoi71-85-5249KmuivnrTWNE Healthcare (20 sources)Mold ExtractDrug Zkhvjxd33-15-9245MlvgoGQCX Healthcare (20 sources)Cat Hair ExtractAllergy to jygjmjtux91-40-2812XthoxozTAMN Healthcare (2 sources)AcetaminophenDrug Yaqmoar07-75-2134Caidrrh [facility] (2 sources)cyclobenzaprineDrug Fcziggo89-47-4313Nhhidnt [facility] (2 sources)oxyCODONEDrug Pfbrejz88-32-9495Ublysqj [facility] (1 source)No Known Medication Allergies; Translations: [No Known Medication Allergies]Propensity to adverse reactions (disorder)[facility] Repository Medications Current Medications MedicationDrug Class(es)DatesSig (Normalized)Sig (Original)[id number] 200 actuat albuterol 0.09 mg/actuat metered dose inhaler (15 sources)beta2-Adrenergic AgonistStart: 84-32-1437oimw 1 puff(s) by inhalation four times dailyAlbuterol Sulfate 90 mcg/actuation HFA aerosol inhaler Active 2 PUFF INHALATION Four times daily March 18, 2025 12:00am Complies with drug therapyStart: 02-10-2025 End: 27-44-6500cmga 2 puff(s) by inhalation every four hours for wheezing albuterol HFA (ProAir HFA) 90 mcg/act inhaler Indications: Chronic obstructive pulmonary disease, unspecified COPD type (HCC) Inhale 2 puffs every 4 (four) hours if needed for wheezing 18 g 11 02/10/2025 02/10/2026 Activebenzonatate 200 mg oral capsule (20 sources)Non-narcotic AntitussiveStart: 87-75-5847ugmi 1 capsule by mouth every eight hoursBenzonatate 200 MG 1 capsule Orally Three times a day for 10 day(s) Feb, ActiveStart: 07-18-2022 End: 91-79-6696vonf 1 capsule by mouth three times dailyBenzonatate 100 mg Capsule Discontinued 100 MG PO Three times daily July 18, 2022 12:00am December 10, 2023 10:38amcetirizine hydrochloride 10 mg oral capsule (20 sources)Histamine-1 Receptor AntagonistStart: 23-02-4550uqoz 1 capsule by mouth once daily as neededCetirizine (Zyrtec) 10 mg capsule Active 10 MG PO Daily as needed February 06, 2025 12:00am Complies with drug therapyStart: 04-04-2019 End: 56-86-8247nrfd 1 tablet by mouth once dailyCetirizine 10 mg tablet Discontinued 10 MG PO Daily April 04, 2019 12:00am December 10, 2023 10:27am cholecalciferol 0.025 mg oral capsule (20 sources)Vitamin DStart: 70-96-5792mjep 1 capsule by mouth once daily Cholecalciferol (Vitamin D3) (Vitamin D3) 25 mcg (1,000 unit) Capsule Active 25 MCG PO Daily July 18, 2022 12:00am Complies with drug therapyciclopirox 10 mg/ml medicated shampoo (14 sources)Start: 64-36-0892Qnyihapwjl 1 % shampoo 11/17/2024 Active Cyclosporine (20 sources)Calcineurin Inhibitor ImmunosuppressantStart: 11-73-6785fakl 1 drop(s) into the eye(s) every twelve hoursStart: 25-87-4592zecs 1 drop(s) into the eye(s) every twelve hoursCyclosporine (Restasis) 0.05 % dropperette Active 1 DROPS EYE-BOTH Every 12 hours March 18, 2025 12:00am Complies with drug therapy Start: 29-49-0417xkld 1 drop(s) into the eye(s) in the morningRestasis 0.05 % ophthalmic emulsion Administer 1 drop into both eyes in the morning and 1 drop before bedtime. 12/11/2023 Vyzipy68 actuat fluticasone furoate 0.1 mg/actuat / umeclidinium 0.0625 mg/actuat / vilanterol 0.025 mg/actuat dry powder inhaler (5 sources)Anticholinergic, Corticosteroid, beta2-Adrenergic AgonistStart: 02-10-2025 End: 14-34-7536zcqr 1 puff(s) by inhalation once daily Gmvvbwxjelg-Rjrsbptts-Njiicr (Trelegy Ellipta) 100-62.5-25 MCG/ACT aerosol powder Indications: Chronic obstructive pulmonary disease, unspecified COPD type ([facility]) Inhale 1 puff Daily 1 each 5 02/10/2025 05/19/2025 Discontinuedfolic acid 1 mg oral tablet (20 sources)Start: 20-68-1413cudq 1 tablet by mouth once dailyFolic Acid 1 mg Tablet Active 1 MG PO Daily July 14, 2022 12:00am Complies with drug therapy End: 99-57-8593oaora acid (Folvite) 400 MCG tablet 1 (one) time each day at the same time. 07/01/2024 Discontinued(Med list cleanup)folic acid 1 mg / vitamin b12 0.5 mg oral tablet (20 sources)Vitamin U19Hortz: 43-91-3376pdig 1 tablet by mouth once dailyVitamin Y99-Verux Acid 0.5-1 mg Tablet Active 1 TAB PO Daily July 18, 2022 12:00am Complies with drug therapyhydrocortisone 25 mg/ml topical cream (17 sources)CorticosteroidStart: 80-89-6459Mztgvygounogga (Perianal) 2.5 % 1 application Externally Twice a day for 30 days Dec, ActiveStart: 91-53-3935Hbdwafjzloxjcu (Perianal) 2.5 % 1 application Externally Twice a day for 30 days Dec, Activeibuprofen 800 mg oral tablet (20 sources)Nonsteroidal Anti-inflammatory DrugStart: 08-22-2024 End: 29-73-9525uhrd 1 tablet by mouth every eight hours [...] PAIN Complies with drug therapyStart: 08-16-2023 End: 54-28-9559hwpw 1 tablet by mouth every eight hours [...] hand Primary osteoarthritis, right handStart: 08-16-2023 End: 72-78-4301bilv 1 tablet by mouth once daily as needed for painIbuprofen 800 mg tablet Discontinued 800 MG PO Daily as needed for pain 30 December 10, 2023 1:00pm April 01, 2024 8:45amStart: 38-59-6991jaim 1 tablet by mouth four times daily as neededibuprofen 800 MG tablet TAKE 1 TABLET BY MOUTH FOUR TIMES A DAY NEEDED 08/16/2023 ActiveStart: 70-88-4984bufc 1 tablet by mouth every three hours at mealtimeibuprofen 800 mg Tab 800 mg = 1 tab(s), Oral, q3hr, with food or milk, # 30 tab(s), Refills(s) 3, Pharmacy: [facility]/pharmacy #[id number], 168, cm, 05/16/23 9:58:00 EDT, Height/Length Dosing, 52, kg, 05/16/23 9:58:00 EDT, Weight Dosing Start Date: 05/16/23 Status: OrderedStart: 04-04-2019 End: 18-54-3317hxgs 1 tablet by mouth every six hours [...] 40 mg/ml nasal spray (4 sources)Opioid AntagonistStart: 07-84-6191Nmhmfyoc (Narcan) 4 mg/actuation spray,non-aerosol Active 4 MG INTRANASAL every 2 to 3 minutes as needed for opioid overdose 2 June 26, 2025 12:00am spray 1 dose into ONE nostril; alternate nostrils w each dose until help arrives Complies with drug therapy omeprazole 40 mg delayed release oral capsule (20 sources)Proton Pump InhibitorStart: 03-07-2024 End: 51-76-8898jthd 1 capsule by mouth once dailyOmeprazole 40 mg capsule,delayed release(DR/EC) Active 40 MG PO Daily 90 90 3 April 02, 2025 8:59am Complies with drug therapyStart: 04-04-2019 End: 40-22-9952zfsa 1 capsule by mouth once dailyOmeprazole 20 mg capsule,delayed release(DR/EC) Discontinued 20 MG PO Daily April 04, 2019 12:00amJune 2023 8:18amOXcarbazepine 300 mg oral tablet (4 sources)Anti-epileptic AgentStart: 36-83-4381Melnkbjidkqcb (Trileptal) 300 mg tablet Active 0 PO Twice daily 60 2 July 06, 2025 12:00am 1/2po bid x 2 weeks then 1 po bid. orally twice daily; Complies with drug therapy polysaccharide iron complex 391 mg oral capsule (20 sources)Start: 68-12-6566enyx 1 capsule by mouth once dailyiron polysaccharides (ProFe) 391.3 (180 Fe) MG capsule Indications: Iron deficiency Take 1 capsule (391.3 mg) by mouth Daily 90 capsule 3 06/08/2025 ActiveStart: 06-06-2024 End: 20-19-8806wqym 1 capsule by mouth once dailyiron polysaccharides (ProFe) 391.3 (180 Fe) MG capsule Indications: Iron deficiency Take 1 capsule (391.3 mg) by mouth Daily 90 capsule 3 06/06/2024 06/08/2025 Discontinued (Reorder)Start: 97-86-3074xeou 1 capsule by mouth twice dailyiron polysaccharides (ProFe) 391.3 (180 Fe) MG capsule Indications: Iron deficiency TAKE 1 CAPSULE BY MOUTH TWICE A DAY FOR 30 DAYS 60 capsule 0 08/15/2023 ActiveStart: 07-14-2022 End: 48-42-1969eunp 1 capsule by mouth once dailyPolysaccharide Iron Complex (Pro Fe) 180 mg iron Capsule Active 180 MG PO Daily 90 90 3 September 20, 2022 1:00am Iron deficiency Iron deficiency Complies with drug therapyProFe 180 mg oral capsule (10 sources)Start: 48-94-5545AipWn 180 mg oral capsule Refills(s) 0 Start Date: 12/12/22 Status: Orderedpyridoxine hydrochloride 25 mg oral tablet (20 sources)Start: 44-01-8460erfw 1 tablet by mouth every eight hourspyridoxine (Vitamin B-6) 25 MG tablet Indications: Mood swings TAKE 1 TABLET (25 MG) BY MOUTH EVERY8 (EIGHT) HOURS 90 tablet 1 05/19/2025 ActiveStart: 16-38-9042okhn 1 tablet by mouth three times dailyPyridoxine (Vitamin B6) 25 mg tablet Active 25 MG PO Three times daily August 20, 2024 1:00am Complies with drug therapy Start: 08-04-2024 End: 76-65-1138nmcv 1 tablet by mouth once dailyPyridoxine (Vitamin B6) 10 mg tablet Discontinued 10 MG PO Daily August 04, 2024 12:00am August 20, 2024 10:15amStart: 64-70-4774ayaq 1 tablet by mouth once dailyPyridoxine (Vitamin B6) 10 mg tablet Active 10 MG PO Daily August 04, 2024 12:00am Start: 07-17-2024 End: 21-51-5140uhya 1 tablet by mouth every eight hourspyridoxine (Vitamin B-6) 25 MG tablet Indications: Mood swings TAKE 1 TABLET (25 MG) BY MOUTH EVERY8 (EIGHT) HOURS 90 tablet 2 10/07/2024 Activesertraline 50 mg oral tablet (20 sources)Serotonin Reuptake InhibitorStart: 42-91-9823fjxv 1 tablet by mouth once dailySertraline 50 mg tablet Active 50 MG PO Daily March 18, 2025 12:00am Complies with drug therapyStart: 07-17-2024 End: 00-90-1049mbfn 1 tablet by mouth once dailySertraline (Zoloft) 25 mg tablet Discontinued 25 MG PO Daily August 20, 2024 1:00am December 11, 2024 10:08am Spiriva Respimat (5 sources)Spiriva Respimat Activetiotropium 0.018 mg inhalation powder (20 sources)AnticholinergicStart: 48-23-7221ufqr 1 capsule by inhalation once dailyTiotropium [place] (Spiriva With Handihaler) 18 mcg capsule, w/inhalation device Active 1 CAP INHALATION Daily February 06, 2025 12:00am puncture 1 cap using device; one dose = 2 inhalations Complies with drug therapyStart: 01-10-2024 End: 67-34-9631ybvs 1 puff(s) by inhalation once dailyTiotropium [place] (Spiriva Respimat) 2.5 mcg/actuation mist Discontinued 2 PUFF INHALATION Daily January 10, 2024 12:00am July 14, 2024 9:03amStart: 01-01-2024 End: 41-50-1071ktbm 2 puff(s) by inhalation once dailytiotropium (Spiriva Respimat) 2.5 MCG/ACT inhaler Indications: Chronic obstructive pulmonary disease , unspecified COPD type (HCC) Inhale 2 puffs Daily 1 each 5 02/02/2025 02/02/2026 ActiveStart: 12-25-2023 End: 11-99-5330ryhzwopnyu bromide Discontinued INHALATION Daily December 24, 2023 11:00pm January 10, 2024 1:21pmStart: 12-25-2023 End: 72-09-2433dlpszknukv bromide Discontinued INHALATION Daily December 25, 2023 12:00am January 10, 2024 2:21pmStart: 84-92-4260kyhjrmgcmk bromide (Spiriva Respimat) Active INHALATION December 25, 2023 12:00amStart: 10-10-2023 End: 43-55-2031vzpt 2 puff(s) by inhalation in the morningtiotropium (Spiriva Respimat) 2.5 MCG/ACT inhaler Indications: Chronic obstructive pulmonary disease , unspecified COPD type (CMS/HCC) Inhale 2 puffs in the morning. 1 each 5 10/10/2023 10/09/2024 ActiveTiotropium [place] (Spiriva With Handihaler) 18 mcg capsule, w/inhalation device (2 sources)Start: 08-78-1227exkd 1 capsule by inhalation once dailyTiotropium [place] (Spiriva With Handihaler) 18 mcg capsule, w/inhalation device Active 1 CAP INHALATION Daily February 06, 2025 12:00am puncture 1 cap using device; one dose = 2 bzwmzflaxft02 hr tolterodine tartrate 2 mg extended release oral capsule (5 sources)Cholinergic Muscarinic AntagonistStart: 44-86-4092kzdv 1 capsule by mouth once dailyDetrol LA 2 mg Cap-ER 2 mg = 1 cap(s), Oral, Daily, # 30 cap(s), Refills(s) 11, Pharmacy: [facility]/pharmacy #[id number], 168, cm, 12/12/22 8:36:00 EDT, Height/Length Dosing, 52.6, kg, 12/12/22 8:36:00 EDT, Weight Dosing Start Date: 12/12/22 Status: OrderedvalACYclovir 500 mg oral tablet (20 sources)Herpesvirus Nucleoside Analog DNA Polymerase Inhibitor, Herpes Simplex Virus Nucleoside Analog DNA Polymerase Inhibitor, Herpes Zoster Virus Nucleoside Analog DNA Polymerase InhibitorStart: 01-12-2025 End: 79-93-5464ydif 1 tablet by mouth once dailyValacyclovir 500 mg tablet Active 500 MG PO Daily March 18, 2025 12:00am Complies with drug therapyStart: 07-10-2024 End: 95-98-2947ayxTXFtnplem (Valtrex) 500 MG tablet Indications: Chronic vulvitis Take 1 tablet (500 mg) by mouth twice daily for 3 days. Then daily 30 tablet 5 07/10/2024 07/10/2025 Activevarenicline 0.5 mg oral tablet (2 sources)Partial Cholinergic Nicotinic AgonistStart: 88-88-4135thnv 1 tablet by mouth once dailyAPO-Varenicline 0.5 MG 1 tablet after eating with a full glass of water Orally Once a day for 30 days Dec, Active Completed/Discontinued Medications MedicationDrug Class(es)DatesSig (Normalized)Sig (Original)acetaminophen 325 mg / diphenhydrAMINE hydrochloride 50 mg oral tablet (11 sources)Histamine-1 Receptor AntagonistStart: 07-17-2024 End: 98-44-5721kpvvgahlfqCVAWM-acetaminophen (Unisom PM Pain) 50-325 MG tablet Indications: Insomnia, unspecified type Take 1 tablet by mouth as needed at bedtime for sleep 14 tablet 3 07/17/2024 02/10/2025 Discontinuedacetaminophen 325 mg / oxyCODONE hydrochloride 5 mg oral tablet (20 sources)Opioid AgonistStart: 04-04-2019 End: 74-44-6549ovsk 1 tablet by mouth every four to [...] Nucleoside Analog DNA Polymerase InhibitorStart: 02-04-2024 End: 16-89-6980Uwocbqzpx 400 mg tablet Discontinued 400 MG PO March 18, 2024 12:00am March 18, 2025 9:45amStart: 04-04-2019 End: 54-93-6328twjz 1 capsule by mouth once dailyAcyclovir 200 mg capsule Discontinued 200 MG PO Daily April 04, 2019 12:00am January 10, 2024 2:12pmtake 1 tablet by mouth once dailyacyclovir (Zovirax) 400 MG tablet TAKE 1 TABLET BY MOUTH EVERY DAY FOR 30 DAYS 0 ActiveALPRAZolam 1 mg oral tablet (20 sources)BenzodiazepineStart: 04-01-2024 End: 57-14-2444xdgr 1 tablet by mouth twice daily as needed for anxiety Alprazolam 1 mg tablet Discontinued 1 MG PO Twice daily as needed for anxiety 40 30 0 December 11, 2024 11:04am January 20, 2025 2:25pm Persistent insomnia Anxiety Insomnia, unspecified Anxiety disorder,unspecifiedStart: 04-04-2019 End: 97-41-3014zcvg 1 tablet by mouth at bedtimeAlprazolam 1 mg tablet Discontinued 1 MG PO Bedtime 30 30 0 December 10, 2023 1:01pm January 07, 2024 4:37pm Persistent insomnia Insomnia, unspecifiedStart: 04-04-2019 End: 82-04-1701usjg 1 tablet by mouth once daily at bedtime as needed for sleep Alprazolam 1 mg tablet Discontinued 1 MG PO Daily at bedtime as needed for sleep 30 30 March 19, 2024 12:19pm April 01, 2024 9:16am Persistent insomnia Insomnia, unspecifiedStart: 04-04-2019 End: 19-72-2572xatd 1 mg by mouth at bedtimeAlprazolam Active 1 MG PO Bedtime 30 December 10, 2023 1:01pmamLODIPine 2.5 mg oral tablet (5 sources)Dihydropyridine Calcium Channel BlockerStart: 03-28-2024 End: 76-11-7078khfg 1 tablet by mouth once dailyamLODIPine (Norvasc) 2.5 MG tablet Take 2.5 mg by mouth Daily 03/28/2024 07/01/2024 Discontinued (Med list cleanup)Start: 90-90-1180xikk 1 tablet by mouth once dailyamLODIPine 5 mg Tab 5 mg = 1 tab(s), Oral, Daily, # 30 tab(s), Refills(s) 2, Pharmacy: [facility]/pharmacy #[id number], 168, cm, 03/14/24 13:40:00 EDT, Height/Length Dosing, 52.2, kg, 03/14/24 13:46:00 EDT, Weight Dosing Start Date: 03/26/24 Status: Orderedamoxicillin 500 mg oral capsule (3 sources)Penicillin-class AntibacterialStart: 12-18-2023 End: 76-33-6973vqisaalzkff (Amoxil) 500 MG capsule 12/18/2023 07/01/2024 Discontinued (Med list cleanup)amoxicillin 875 mg / clavulanate 125 mg oral tablet (20 sources)Penicillin-class AntibacterialStart: 07-14-2024 End: 50-50-4589dons 1 tablet by mouth twice dailyAmoxicillin-Pot Clavulanate 875-125 mg tablet Discontinued 1 TAB PO Twice daily 14 0 July 14, 2024 12:00am August 04, 2024 11:32amazithromycin 250 mg oral tablet (20 sources)Macrolide AntimicrobialStart: 08-20-2024 End: 03-92-1380Clijxtgurdnr 250 mg tablet Discontinued 0 PO .COMPLEX [...] oral capsule (20 sources)Cephalosporin AntibacterialStart: 04-04-2019 End: 91-93-6854bdlg 1 capsule by mouth every eight hoursCephalexin 500 mg capsule Discontinued 500 MG PO Q8H 21 7 0 April 04, 2019 12:00am July 14, 2022 2:49pmciprofloxacin 500 mg oral tablet (7 sources)Quinolone AntimicrobialStart: 19-63-4838Zrffg 500 mg Tab 500 mg = 1 tab(s), Oral, As Directed, Pt to take 1 tab the day before procedure and the 2nd tab the day of procedure once completed., # 2 tab(s), Refills(s) 0, Pharmacy: [facility]/pharmacy#[id number], 168, cm, 08/09/22 9:45:00 EST, Height/Length Dosing, 52.6, kg... Start Date: 08/15/22 Status: Orderedtake 1 tablet by mouth every twelve hoursCiprofloxacin HCl 500 MG 1 tablet Orally every 12 hrs for 7 days Active diclofenac sodium 0.01 mg/mg topical gel (20 sources)Nonsteroidal Anti-inflammatory DrugStart: 12-04-2023 End: 95-48-5997Yllsdwfvnv Sodium (Voltaren Arthritis Pain) 1 % gel Discontinued 0 TOPICAL Twice daily 100 30 2 December 04, 2023 12:00am March 18, 2025 9:46am 1- 2 grams topically twice dailyStart: 98-30-6813Ocofeaiukj Sodium (Voltaren Arthritis Pain) 1 % gel Active 0 TOPICAL Twice daily 100 November 11:00pm 1-2 grams topically twice dailyStart: 06-26-0010Qiovdvvcfo Sodium (Voltaren Arthritis Pain) 1 % gel Active 0 TOPICAL Twice daily 100 November 12:00am 1-2 grams topically twice dailydoxepin 3 mg oral tablet (20 sources)Tricyclic AntidepressantStart: 07-22-2024 End: 83-05-5069thxp 1 tablet by mouth once daily at bedtime as needed for sleep Doxepin 3 mg tablet Discontinued 3 MG PO Daily at bedtime as needed for sleep 30 0 July 22, 2024 1:00am August 04, 2024 11:33amStart: 12-12-2023 End: 92-17-7141ehdc 1 capsule by mouth once daily in the evening as needed doxepin (SINEquan) 10 MG capsule TAKE 1 CAPSULE BY MOUTH EVERY EVENING NEEDED FOR ITCH 12/12/2023 07/01/2024 Discontinued (Med list cleanup)doxycycline hyclate 100 mg oral tablet (20 sources)Tetracycline-class DrugStart: 02-08-2024 End: 04-56-7918plzp 1 tablet by mouth twice dailyDoxycycline Hyclate 100 mg tablet Discontinued 100 MG PO Twice daily 14 0 February 08, 2024 12:00am February 19, 2024 10:15amestradiol 0.1 mg/ml vaginal cream (4 sources)EstrogenStart: 09-14-2023 End: 97-14-8073gpznstcvc (Estrace) 0.1 MG/GM vaginal cream Indications: Vaginal atrophy 1 gm application daily at bedtime for 2 weeks, then 1 gm application 2 times/week. 34 g 1 09/14/2023 07/01/2024 Discontinued (Med list cleanup) estrogens, conjugated (snf) 0.625 mg / medroxyPROGESTERone acetate 5 mg oral tablet (10 sources)Progestin, EstrogenStart: 11-10-2024 End: 70-45-9180cpjb 0.625-5 mg by mouth once dailyestrogen, conjugated,- medroxyPROGESTERone (Prempro) 0.625-5 MG tablet Indications: Mood swings , Other fatigue , Vaginal atrophy Take 1 tablet by mouth Daily 90 tablet 3 11/10/2024 02/10/2025 DiscontinuedNorgestimate-Ethinyl Estradiol (20 sources)Progestin, EstrogenStart: 04-04-2019 End: 04-98-1134Fcjifsasgdri-Ethinyl Estradiol (Sprintec (28)) 0.25-35 mg-mcg tablet Discontinued 1 TAB PO As Directed April 03, 2019 11:00pm July 18, 2022 9:48amStart: 04-04-2019 End: 68-20-1050Cpluftdzarqs-Ethinyl Estradiol (Sprintec (28)) 0.25-35 mg-mcg tablet Discontinued 1 TAB PO As Directed April 04, 2019 12:00am July 18, 2022 10:48amStart: 45-94-6006Yfzhgucgaihn-Ethinyl Estradiol (Sprintec (28)) 0.25-35 mg-mcg tablet Active 1 TAB PO As Directed April 04, 2019 12:00am fluconazole 150 mg oral tablet (20 sources)Azole AntifungalStart: 07-14-2024 End: 28-31-9622Umbuwqtegao 150 mg tablet Discontinued 150 MG PO Q3D 2 0 July 14, 2024 12:00am August 04, 2024 11:33amStart: 10-06-2023 End: 34-36-9167bahh 1 tablet by mouth in the morningfluconazole (Diflucan) 150 MG tablet Indications: Chronic obstructive pulmonary disease, unspecified COPD type (CMS/HCC) Take 1 tablet (150 mg) by mouth in the morning. 1 tablet 1 10/06/2023 07/01/2024 Discontinued (Med list cleanup)Start: 82-54-2070qsme 1 tablet by mouth onceFluconazole 150 MG 1 tablet Orally once for 1 days Jun, ActiveStart: 04-04-2019 End: 64-82-5103gkmq 1 tablet by mouth once dailyFluconazole (Diflucan) 150 mg tablet Discontinued 150 MG PO Daily 1 1 0 April 04, 2019 3:15pm July 18, 2022 10:48am administer on day 1 of therapyfluorouracil 50 mg/ml topical cream (3 sources)Nucleoside Metabolic InhibitorStart: 05-02-2024 End: 91-50-8579asipohgvjcoi (Efudex) 5 % cream APPLY TO FACE EVERY NIGHT [id number].TAKE A WEEK OFF & REPEAT DAILY X2 MORE WEEKS.*START IN JUNE* 05/02/2024 07/01/2024 Discontinued (Med list cleanup)gabapentin 100 mg oral capsule (20 sources)Anti-epileptic AgentStart: 04-06-2025 End: 72-60-1767qpub 2 capsules by mouth three times dailyGabapentin 100 mg capsule Discontinued 200 MG PO Three times daily 180 30 0 April 06, 2025 4:43pm July 06, 2025 10:52amStart: 02-25-2025 End: 02-00-8088ffzs 1 capsule by mouth three times dailyGabapentin 100 mg capsule Discontinued 100 MG PO Three times daily March 18, 2025 9:47am March 4:44pmStart: 23-77-2015wehlqhhxec (Neurontin) 100 MG capsule Indications: Paresthesias Take one cap every 8 hours or all at bedtime 90 capsule 2 01/06/2025 Activeketoconazole 20 mg/ml medicated shampoo (3 sources)Azole AntifungalStart: 04-21-2024 End: 94-14-6568uecydrmunciu (NIZOral) 2 % shampoo WASH THE SCALP ONCE DAILY LEAVE ON FOR 5 MINUTES THEN RINSE OFF THEN WASH NORMAL 04/21/2024 07/01/2024 Discontinued (Med list cleanup)meloxicam 15 mg oral tablet (20 sources)Nonsteroidal Anti-inflammatory DrugStart: 05-13-2024 End: 04-73-2267urqq 1 tablet by mouth once dailyMeloxicam 15 mg tablet Discontinued 15 MG PO Daily 30 2 May 13, 2024 12:00am May 13, 2024 8:36am painStart: 62-41-5500azjg 1 tablet by mouth every twenty-four hours Meloxicam 15 MG 1 tablet Orally Once a day for 30 days Aug, Active methylPREDNISolone 4 mg oral tablet (16 sources)CorticosteroidStart: 03-23-2025 End: 16-53-9022Bmewvknywfdkcambtg 4 mg tablets,dose pack Discontinued MG PO March 23, 2025 12:00am July 07, 2025 10:19amStart: 01-16-2025 End: 78-81-3077otxlxoWQWCDUCkdsoj (Medrol Dospak) 4 MG tablets Indications: Muscle strain of left foot, initial encounter Follow schedule on package instructions 21 tablet 01/16/2025 05/19/2025 DiscontinuedStart: 01-16-2025 methylPREDNISolone (Medrol Dospak) 4 MG tablets Indications: Muscle strain of left foot, initial encounter Follow schedule on package instructions 21 tablet 01/16/2025 Mzmzbm04 hr metoprolol succinate 25 mg extended release oral tablet (20 sources)beta-Adrenergic BlockerStart: 01-10-2024 End: 02-15-5412xxfu 1 tablet by mouth every twenty-four hoursMetoprolol Succinate 25 mg tablet extended release 24 hr Discontinued MG PO January 10, 2024 12:00am February 19, 2024 10:15amStart: 01-10-2024 End: 25-12-2370Agvcmwllbl Succinate Discontinued MG PO January 09, 2024 11:00pm February 19, 2024 9:15amMultivitamin (Multiple Vitamin) Tablet (20 sources)Start: 07-14-2022 End: 71-90-9795fiwz 1 tablet by mouth once dailyMultivitamin (Multiple Vitamin) Tablet Discontinued 1 TAB PO Daily July 13, 2022 11:00pm 2023 9:28amStart: 07-14-2022 End: 54-11-5429gsgo 1 tablet by mouth once dailyMultivitamin (Multiple Vitamin) Tablet Discontinued 1 TAB PO Daily July 14, 2022 12:00am 2023 10:28amStart: 51-91-0211isen 1 tablet by mouth once dailyMultivitamin (Multiple Vitamin) Tablet Active 1 TAB PO Daily July 13, 2022 11:00pmStart: 12-56-8145hfla 1 tablet by mouth once dailyMultivitamin (Multiple Vitamin) Tablet Active 1 TAB PO Daily July 14, 2022 12:00amprazosin 5 mg oral capsule (20 sources)alpha-Adrenergic BlockerStart: 11-03-2024 End: 09-63-4579omjdohqq (Minipress) 5 MG capsule 11/03/2024 05/19/2025 DiscontinuedStart: 09-23-2024 End: 11-58-6395tiax 1 capsule by mouth in the evening as neededPrazosin 5 mg capsule Discontinued 0 .ROUTE .COMPLEX as needed December 11, 2024 10:07am March 18, 2025 9:43am TAKE 1 CAPSULE BY MOUTH IN THE EVENING PRN;Start: 08-20-2024 End: 76-54-8769tzkz 1 capsule by mouth once daily in the eveningPrazosin 5 mg capsule Discontinued 5 MG PO Every evening 30 0 August 20, 2024 11:19am September 23, 2024 1:12pmStart: 07-19-2024 End: 42-16-3019iiym 1 capsule by mouth once daily in the eveningPrazosin 5 mg capsule Discontinued 5 MG PO Every evening 30 0 July 19, 2024 12:00am July 22, 2024 9:35ampredniSONE 5 mg oral tablet (20 sources)Start: 12-04-2023 End: 74-89-8834Qdzwaqwgfd 5 mg tablet Discontinued 5 MG PO As Directed 19 7 0 December 04, 2023 12:00am November 10:28am Take 4 pills by mouth x2 days, take 3 pills by mouth x2 days, take 2 pills by mouth x2days, take 1 pill by mouth x1 day.propylene glycol liquid external solution (3 sources)Start: 05-20-2024 End: 57-91-4040gjpbftuxr glycol liquid external solution 05/20/2024 07/01/2024 Discontinued (Med list cleanup)Start: 46-29-8455flbncxczf glycol liquid external solution 05/20/2024 Activeteepee splint right thumb (20 sources)Start: 01-08-2024 End: 78-60-2253vqolxq splint right thumb Discontinued 0 .Route .MEDSUPPLY 1 0 January 08, 2024 4:12pm January 10, 2024 2:21pm As directedStart: 01-08-2024 End: 18-28-9562gcqenu splint right thumb Discontinued 0 .Route .MEDSUPPLY 1 January 08, 2024 3:12pm January 10, 2024 1:21pm As directedStart: 01-08-2024 End: 41-18-9581ytnuxn splint right thumb Discontinued 0 .Route .MEDSUPPLY 1 January 08, 2024 4:12pm January 10, 2024 2:21pm As directedStart: 01-08-2024 End: 12-91-2414kbwymc splint right thumb Discontinued 0 .Route .MEDSUPPLY 1 0 January 08, 2024 12:00am December 4:12pm As directedStart: 01-08-2024 End: 00-55-3032uepajp splint right thumb Discontinued 0 .Route .MEDSUPPLY 1 January 07, 2024 11:00pm January 08, 2024 3:12pm As directedStart: 01-08-2024 End: 05-38-4557kypnsm splint right thumb Discontinued 0 .Route .MEDSUPPLY 1 January 08, 2024 12:00am January 08, 2024 4:12pm As directedStart: 01-08-2024 teepee splint right thumb Active 0 .Route .MEDSUPPLY 1 January 08, 2024 12:00am As directedteepee splint- right thumb (20 sources)Start: 03-18-2024 End: 97-23-6378ixyzox splint- right thumb Discontinued 0 .Route .MEDSUPPLY 1 0 March 18, 2024 8:41am August 11:16am Arthritis of carpometacarpal (CMC) joint of right thumb Arthritis of right hand Unilateral primary osteoarthritis of first carpometacarpal joint, right hand Primary osteoarthritis, righthand pain As directed. Please specialty order.Start: 03-18-2024 End: 36-67-0088uhugxu splint- right thumb Discontinued 0 .Route .MEDSUPPLY 1 March 18, 2024 8:41am August 20, 2024 11:16am As directed. Please specialty order.Start: 03-18-2024 End: 69-20-0663aocfta splint- right thumb Discontinued 0 .Route .MEDSUPPLY March 18, 2024 7:41am August 20, 2024 10:16am As directed. Please specialty order.Start: 05-17-4538ihnpcm splint- right thumb Active 0 .Route .MEDSUPPLY March 18, 2024 7:41am As directed. Please specialty order.Start: 03-18-2024 teepee splint- right thumb Active 0 .Route .MEDSUPPLY 1 March 18, 2024 8:41am As directed. Please specialty order.Start: 02-12-2024 End: 36-46-6730muaims splint- right thumb Discontinued 0 .Route .MEDSUPPLY 1 0 February 12, 2024 12:00am March 18, 2024 8:41am Arthritis of carpometacarpal (CMC) joint of right thumb Arthritis of right hand Unilateralprimary osteoarthritis of first carpometacarpal joint, right hand Primary osteoarthritis, right hand pain As directed. Please specialty order.Start: 02-12-2024 End: 37-11-7067gmoptx splint- right thumb Discontinued 0 .Route .MEDSUPPLY February 11, 2024 11:00pm March 1847:41am As directed. Please specialty order. Start: 02-12-2024 End: 07-54-7208ivevmw splint- right thumb Discontinued 0 .Route .MEDSUPPLY February 12, 2024 12:00am March 1848:41am As directed. Please specialty order. Start: 16-08-7906ommwkq splint- right thumb Active 0 .Route .MEDSUPPLY February 12, 2024 12:00am As directed. Please specialty order.traMADol hydrochloride 50 mg oral tablet (20 sources)Opioid AgonistStart: 11-16-2023 End: 03-84-4209emym 1 tablet by mouth twice daily as needed for painTramadol 50 mg tablet Discontinued 50 MG PO Twice daily as needed for pain 50 30 0 December 111:03am January 20, 2025 2:25pm Dislocation of temporomandibular joint Dislocation of jaw, unspecifiedside, sequelaStart: 11-16-2023 End: 63-43-9259obxd 1 tablet by mouth three times daily as neededTramadol 50 mg tablet Discontinued 50 MG PO Three times daily as needed March 21, 2024 12:00am 2023 3:51pmStart: 30-94-4789cepSZJaq HCl 50 MG TAKE 1 TABLET BY MOUTH THREE TIMES A DAY NEEDED FOR 30 DAYS for 30 Aug, ActiveStart: 39-24-1314vlyGRGoe HCl 50 MG TAKE 1 TABLET BY MOUTH THREE TIMES A DAY NEEDED FOR 30 DAYS for 30 Jun, ActiveStart: 69-21-7747hqqa 1 tablet by mouth every eight hourstraMADol HCl 50 MG 1 tablet as needed Orally tid for 30 days Jun, ActiveStart: 04-50-0716qqkf 1 tablet by mouth every eight hours traMADol HCl 50 MG 1 tablet as needed Orally tid for 30 days Apr, Active Start: 53-73-6135wpzk 1 tablet by mouth every eight hourstraMADol HCl 50 MG 1 tablet as needed Orally tid for 30 days Mar, ActiveStart: 25-39-3639iery 1 tablet by mouth every twelve hourstraMADol HCl 50 MG 1 tablet as needed Orally bid for 30 days Feb, ActiveStart: 04-04-2019 End: 45-39-2423gjom 1 tablet by mouth once dailyTramadol 50 mg tablet Discontinued 50 MG PO Daily April 04, 2019 12:00am July 18, 2022 10:49am triamcinolone acetonide 1 mg/ml topical cream (20 sources)CorticosteroidStart: 05-02-2024 End: 58-27-8006fsfrqtzwxoezi (Kenalog) 0.1 % cream Indications: Acute vulvitis Apply topically 2 (two) times a day15 g 05/02/2024 07/01/2024 Discontinued (Med list cleanup)Start: 51-32-5273Bmsvefq-40 Apr, 60 mgStart: 11-14-2022 Kenalog-40 Oct, 40 mgvitamin b12 0.25 mg oral tablet (4 sources)Vitamin B12 End: 80-97-5163vwke 1 tablet by mouth in the morningcyancobalamine (Vitamin B- 12) 250 MCG tablet Take 250 mcg by mouth in the morning. 07/01/2024 Discontinued (Med list cleanup)vitamin b6 10 mg oral tablet (16 sources)Start: 08-04-2024 End: 00-44-1833cfpc 1 tablet by mouth once dailyPyridoxine (Vitamin B6) 10 mg tablet Discontinued 10 MG PO Daily August 04, 2024 1:00am August 20, 2024 11:15amVitamin E (20 sources)Start: 12-25-2023 End: 96-17-3091swrd 1 tablet by mouth once dailyvitamin E (dl, acetate) Discontinued 1 TAB PO Daily December 25, 2023 12:00am August 04, 2024 11:33am Start: 12-25-2023 End: 20-94-9979vwqy 1 tablet by mouth once dailyvitamin E (dl, acetate) Discontinued 1 TAB PO Daily December 24, 2023 11:00pm August 04, 2024 10:33am Start: 97-28-4957yvxk 1 tablet by mouth once dailyvitamin E (dl, acetate) Active 1 TAB PO Daily December 24, 2023 11:00pmStart: 45-10-1299dlqy 1 tablet by mouth once dailyvitamin E (dl, acetate) Active 1 TAB PO Daily December 25, 2023 12:00am Start: 44-79-1125mbqbzak E (dl, acetate) Active PO December 25, 2023 12:00am Problems Active Problems Problem ClassificationProblemDateDocumented DateEpisodic/ChronicAbdominal pain (20 sources)Abdominal pain; Translations: [Unspecified abdominal pain]Onset: 02-06-2019 Resolved: 45-65-2342HlrhyixgNjyoiqi disorders (20 sources)Anxiety; Translations: [Anxiety disorder, unspecified]Onset: 53-33-3471YpsplokItncpdx obstructive pulmonary disease and bronchiectasis (20 sources)Chronic obstructive lung disease; Translations: [Chronic obstructive pulmonary disease, unspecified]Onset: 753176-27-1728AwneffdQykmtbnbrg and other anemia (20 sources)Iron deficiency anemia; Translations: [Iron deficiency anemia, unspecified]Onset: 12-28-2023 Resolved: 494109-94-6853PmhkmzkfTdhsnodcqj and other anemia (6 sources)Iron deficiency anemia, unspecified; Translations: [Iron deficiency anemia, unspecified]Onset: 142680-43-4748YdbabboqUvnpryuswe and other anemia (20 sources)Anemia; Translations: [Anemia, unspecified]82-77-4054Hbsgypjf Deficiency and other anemia (6 sources)Other iron deficiency anemias; Translations: [OTHER IRON DEFICIENCY ANEMIAS]Onset: 50-48-3026ZrzaxilvNrfcmuxfdo and other anemia (2 sources)Anemia, unspecified; Translations: [Anemia, unspecified]Episodic Diseases of white blood cells (13 sources)Leukocytosis; Translations: [Leukocytosis, unspecified]Onset: 76-05-4824EuelyeoQudaujzmv of teeth and jaw (20 sources)Arthralgia of temporomandibular joint; Translations: [Arthralgia of temporomandibular joint, unspecified side]Onset: 37-33-0007XyovsuckG Codes: Natural/environment (1 source)Overexertion from prolonged static [...] full; Translations: [Feeling of incomplete bladder emptying]Onset: 86-02-4689IiszzcleXlxdpcea; including migraine (20 sources)Migraine without aura, not refractory ; Translations: [Migraine, unspecified, not intractable, without status migrainosus]Onset: 08-19-2014 11-72-6387BkikoyxTmbojcsgtin (20 sources)External hemorrhoids; Translations: [Residual hemorrhoidal skin tags]EpisodicJoint disorders and dislocations; trauma-related (20 sources)Dislocation of temporomandibular joint; Translations: [Dislocation of jaw, unspecified side, initial encounter]18-95-0680KozjquuyZwqfccephl disorders (17 sources)Menopausal flushing; Translations: [Menopausal and female climacteric states]65-87-0947LhrlayhWkwe disorders (3 sources)Mood swings; Translations: [Emotional lability]83-60-1731Dmgwtmoy Neoplasms of unspecified nature or uncertain behavior (4 sources)Neoplasm of muscle; Translations: [Benign neoplasm of connective and other soft tissue, unspecified]09-19-2667WoahvxvfTtkjszranat deficiencies (20 sources)Vitamin D deficiency; Translations: [Vitamin D deficiency, unspecified]Onset: 27-57-9513AuonqfpXvcknidzvla deficiencies (20 sources)Iron deficiency; Translations: [Iron deficiency]85-33-2310Nyconaxk Open wounds of extremities (13 sources)Late effect of open wound of extremities without tendon injury; Translations: [Unspecified open wound of unspecified toe(s) with damage to nail, sequela]EpisodicOsteoarthritis (20 sources)Arthritis of first carpometacarpal joint of right hand; Translations: [Unilateral primary osteoarthritis of first carpometacarpal joint, right hand]Onset: 12-28-2023 Resolved: 517606-53-2803NfrgnawFjqjw aftercare (1 source)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; Translations: [OTH DOCUMENT ANALYST CURRENT DRUG THERAPY]Onset: 19-68-3373NwqujkkuOunwv circulatory disease (1 source)Raynaud's phenomenon; Translations: [Raynaud's syndrome without gangrene]Onset: 06-27-7089SmxurunRfbfp circulatory disease (20 sources)Raynaud's disease; Translations: [Raynaud's syndrome without gangrene]75-43-8598SqjixcfHmjki circulatory disease (5 sources)Raynaud's syndrome without gangrene; Translations: [Raynaud's syndrome]Onset: 788127-80-3722PeyqgpcKbplu circulatory disease (12 sources)Elevated blood-pressure reading without diagnosis of hypertension; Translations: [Elevated blood-pressure reading, without diagnosis of hypertension]EpisodicOther circulatory disease (1 source)Elevated blood-pressure reading, without diagnosis of hypertension; Translations: [Elevated blood-pressure reading, without diagnosis of hypertension]EpisodicOther congenital anomalies (16 sources)Congenital anomaly of eye; 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, unspecified]03-37-8166NzdzccqRybbo congenital anomalies (5 sources)Congenital malformation of eye, unspecified; Translations: [Unspecified anomaly of eye]Onset: 911300-40-9190OfdfzmtXipua connective tissue disease (20 sources)Spasm; Translations: [Other muscle spasm]EpisodicOther connective tissue disease (20 sources)Pain in limb; Translations: [Pain in right foot]EpisodicOther connective tissue disease (4 sources)Pain in right foot; Translations: [PAIN IN RIGHT FOOT]Onset: 94-65-7624VrotwgluGhpqy connective tissue disease (1 source)Pain in left [...] sources)Pain in left toe(s); Translations: [Pain in limb]58-77-6952Tsqxandk Other connective tissue disease (20 sources)Hand pain; Translations: [Pain in right hand]33-02-3119MpjoduylRpfwv connective tissue disease (20 sources)Tenosynovitis of right radial styloid; Translations: [Radial styloid tenosynovitis [de Quervain]]Onset: 12-28-2023 Resolved: 351019-73-7728GervcnehGlcxl connective tissue disease (20 sources)Radial styloid tenosynovitis [de Quervain]; Translations: [Radial styloid tenosynovitis]06-87-4651TftuikvqGlygg connective tissue disease (20 sources)Pain in right hand; Translations: [Pain in right hand]Onset: 12-28-2023 Resolved: 341573-43-9343LwcthcctKmpod connective tissue disease (6 sources)Pain in toe; Translations: [Pain in left toe(s)]34-10-5967Tsnlixvu Other connective tissue disease (2 sources)Pain in both feet; Translations: [Pain in right foot]01-19-2025 EpisodicOther connective tissue disease (20 sources)Muscle pain; Translations: [Myalgia, unspecified site]02-25-2025 EpisodicOther connective tissue disease (1 source)Myalgia, unspecified site; Translations: [Myalgia and myositis, unspecified]21-17-1724XwjcaewxNnemg connective tissue disease (14 sources)Pain of toe of left foot; Translations: [Pain in left toe(s)] 01-43-3970QhkpdbxhVbhof connective tissue disease (6 sources)Triggering of digit; Translations: [Trigger finger, right index finger]96-19-6547YbfthxmyFektv eye disorders (16 sources)Pain in eye; Translations: [Ocular pain, unspecified eye]10-15-2024 EpisodicOther female genital disorders (20 sources)H/O: menorrhagia; Translations: [Personal history of other diseases of the female genital tract]Onset: 12-28-2023 Resolved: 308861-91-7895AjexphltYtjof female genital disorders (1 source)History of gynecological disorder; Translations: [Personal history of other diseases of the female genital tract]62-16-9242AuqvjgyeThslg female genital disorders (2 sources)Vaginal discharge; Translations: [Other specified noninflammatory disorders of vagina]46-81-9730RtdtxewxBpbom female genital disorders (1 source)Pruritus of vagina; Translations: [Other specified noninflammatory disorders of vagina]17-00-8186KddwnscpWugwy female genital disorders (4 sources)Personal history of other diseases of the female genital tract; Translations: [Personal history of other genital system and obstetric disorders] 11-92-1278MflbqpwtZmoti gastrointestinal disorders (20 sources)Adult form of celiac disease; Translations: [Celiac disease]Onset: 12-28-2023 Resolved: 832490-79-1962ZckgeigLffon gastrointestinal disorders (1 source)Celiac disease; Translations: [Celiac disease]78-62-1687WspqkizAhlij gastrointestinal disorders (1 source)Constipation, unspecified; Translations: [Constipation, unspecified] Onset: 02-76-5699JxwyndorNopyu gastrointestinal disorders (6 sources)Gornmzcjphsh21-30-5496ZeyvrfybDqhpl gastrointestinal disorders (20 sources)Abdominal bloating; Translations: [Abdominal distension (gaseous)] 89-52-4873NqxjyjzwRqlry hematologic conditions (20 sources)Other abnormality of red blood cells; Translations: [Abnormality of red blood cells]EpisodicOther hereditary and degenerative nervous system conditions (20 sources)Restless legs; Translations: [Restless legs syndrome]Onset: 12-28-2023 Resolved: 783766-16-6665MyjpkyrKhdnc hereditary and degenerative nervous system conditions (2 sources)Restless legs syndrome; Translations: [Restless legs syndrome (RLS)] 94-53-9945XpfnjkoJqpte injuries and conditions due to external causes (10 sources)Other injury of unspecified body region, initial encounter; Translations: [Bruising]EpisodicOther injuries and conditions due to external causes (7 sources)Unspecified injury of right wrist, hand and finger(s), initial encounter; Translations: [Finger injury]EpisodicOther injuries and conditions due to external causes (20 sources)Thumb injury ; Translations: [Unspecified injury of right wrist, hand and finger(s), initial encounter]92-32-0273RfokfyhoBowrd lower respiratory disease (4 sources)Chronic cough; Translations: [CHRONIC COUGH]Onset: 72-99-8736Otjmqbpi Other lower respiratory disease (20 sources)Cough; Translations: [Cough]Onset: 98-71-3714BfprfejxWqdnz nervous system disorders (20 sources)Chronic pain; Translations: [Other chronic pain]83-96-2714Eidljqk Other nervous system disorders (3 sources)Other chronic pain; Translations: [Other chronic pain]ChronicOther nervous system disorders (4 sources)Paresthesia of skin; Translations: [PARESTHESIA OF SKIN]Onset: 48-68-4677BmufbbtbKwryv nervous system disorders (18 sources)Paresthesia; Translations: [Paresthesia of skin]33-10-5512Gxenjkjh Other nervous system disorders (16 sources)Allodynia; Translations: [Other disturbances of skin sensation] 73-91-0665IdxxipevCbfbu non-traumatic joint disorders (20 sources)Pain in wrist; Translations: [Pain in right wrist]04-09-8045Ovupiqqc Other non-traumatic joint disorders (20 sources)Pain in right wrist; Translations: [Pain in joint, forearm] 82-76-8358UwkxlamoUrznn non-traumatic joint disorders (20 sources)Pain of right wrist; Translations: [Pain in right wrist]Onset: 12-28-2023 Resolved: 933769-03-3269XllivioiPpwly non-traumatic joint disorders (2 sources)Pain in right [...] Translations: [Allergic rhinitis, unspecified] Onset: 07-18-2023 Resolved: 868880-47-5688RdzdtewVbnnl upper respiratory infections (13 sources)Chronic sinusitis; Translations: [Chronic sinusitis, unspecified] ChronicOvarian cyst (3 sources)Cyst of bilateral ovaries; Translations: [Unspecified ovarian cyst, right side]13-11-4440PcjmfrftYsoheyvj codes; unclassified (20 sources)Insomnia; Translations: [Insomnia, unspecified]Onset: 02-21-2019 27-46-3717AhlchqrdJopttsyy codes; unclassified (2 sources)Flushing; Translations: [FLUSHING]Onset: 63-40-5025BfrsxpcdRpuyvxzx codes; unclassified (20 sources)Unspecified donor, other blood; Translations: [Blood donor] 87-32-4361VnqdusjvEabbbvxl codes; unclassified (13 sources)Postprocedural state finding; Translations: [Other specified postprocedural states]EpisodicResidual codes; unclassified (13 sources)Family history of ischemic heart disease; Translations: [Family history of ischemic heart disease and other diseases of the circulatory system] EpisodicResidual codes; unclassified (16 sources)Insomnia, unspecified; Translations: [Persistent disorder of initiating or maintaining sleep]86-10-6495DsibwvnlJdvjiatj codes; unclassified (20 sources)Persistent insomnia; Translations: [Insomnia, unspecified]Onset: 12-28-2023 Resolved: 852606-95-5824PiauwqarQepoqpqq codes; unclassified (3 sources)History of endometrial ablation; Translations: [Other specified postprocedural states]69-49-0250XgguwmuaUmlddyty codes; unclassified (2 sources)Menopause present; Translations: [Asymptomatic menopausal state] 19-88-5145WlyrsxscNnkgazrakvu; intervertebral disc disorders; other back problems (20 sources)Cervical spondylosis; Translations: [Spondylosis without myelopathy or radiculopathy, cervical region]ChronicSpondylosis; intervertebral disc disorders; other back problems (20 sources)Pain in thoracic spine; Translations: [Pain in thoracic spine]Onset: 06-36-3129GrakmvibGllpuax and strains (16 sources)Unspecified sprain of right foot, initial encounter; Translations: [Sprain of right ankle]Onset: 374027-69-9920SlvyiacmMjlkcsrqa-ssuaciq disorders (20 sources)Nicotine dependence; Translations: [Nicotine dependence, unspecified, uncomplicated]Onset: 42-12-2238StrzkdeQxgkpbl on above:Added secondary to documentation in Social History.Unclassified (11 sources)Finding of sensation of wdchvaj75-61-4558Tazehrzpvkrc (3 sources)CONTACT W/AND (SUSP) EXPOS COVID-19; Translations: [CONTACT W/AND (SUSP) EXPOS COVID-19]Onset: 10-71-0026Eqxkvkx tract infections (20 sources)Postinfective urethral stricture of female; Translations: [Postinfective urethral stricture, not elsewhere classified, female]Onset: 67-44-6105HfvlbqtuYuqqq infection (20 sources)Viremia; Translations: [Viral infection, unspecified]Onset: 980824-01-1336Kfjzevrj Past or Other Problems Problem ClassificationProblemDateDocumented DateEpisodic/ChronicAcute bronchitis (13 sources)Acute bronchitis; Translations: [Acute bronchitis, unspecified] Onset: 50-92-3504NokfwhduMalakjmt reactions (13 sources)Contact dermatitis; Translations: [Contact dermatitis and other eczema, due to unspecified cause]Onset: 54-81-8467BedxdleiLfjorcvdh infection; unspecified site (12 sources)Bacterial infectious disease; Translations: [Bacterial infection, unspecified, in conditions classified elsewhere and of unspecified site]Onset: 28-76-4816YcvsggpiKljxkrs tract disease (20 sources)Other specified diseases of gallbladder; Translations: [Disorder of gallbladder]Onset: 62-70-0342ZcbxunofSnooqfpgqggbe (20 sources)Endometriosis of uterus; Translations: [Endometriosis of uterus] Onset: 08-04-2009 Resolved: 179825-29-9188MrimakiVigbjhipudjrg symptoms and ill-defined conditions (20 sources)Mixed incontinence; Translations: [Incontinence]Onset: 08-17-2022 Resolved: 11-24-9337AutayouRoxwtruzdzet diseases of female pelvic organs (20 sources)Chronic vaginitis; Translations: [Subacute and chronic vaginitis] Onset: 07-18-2023 Resolved: 371453-29-2578ViimevzmCpfmxrpux disorders (20 sources)Dysmenorrhea; Translations: [Dysmenorrhea, unspecified]Onset: 07-18-2023 Resolved: 403813-64-4641YuhmswpIqbj disorders (20 sources)Bipolar II disorder; Translations: [Bipolar II disorder]Onset: 07-18-2023 Resolved: 248618-75-4401JcjbwajGullvqlpcun chest pain (14 sources)Chest pain, unspecified; Translations: [Chest pain]Onset: 07-02-2018 EpisodicOther connective tissue disease (13 sources)Lateral epicondylitis; Translations: [Lateral epicondylitis of elbow]Onset: 60-03-5799NsivmjxeLdzts connective tissue disease (20 sources)Peroneal tendinitis of right lower limb; Translations: [Peroneal tendinitis, right leg]Onset: 12-28-2023 Resolved: 110301-74-7130RaezihmhBiyst eye disorders (1 source)Ocular pain, unspecified eye; Translations: [Ocular pain, unspecified eye]Onset: 13-17-6291JbqjhikuEhlwc female genital disorders (20 sources)Cervical intraepithelial neoplasia grade 1; Translations: [Mild cervical dysplasia]Onset: 07-18-2023 Resolved: 156483-65-8336YjxtpsacBdetd gastrointestinal disorders (5 sources)Abdominal distension (gaseous); Translations: [Flatulence, eructation, and gas pain]Onset: 412364-97-6490PnojntflZheij inflammatory condition of skin (13 sources)Sunburn of second degree; Translations: [Sunburn of second degree] Onset: 81-07-3785SyzuszavDrszf inflammatory condition of skin (13 sources)Solar erythema; Translations: [Contact dermatitis and other eczema due to sunburn]Onset: 21-45-2840MuaqbvwiUdnpd injuries and conditions due to external causes (13 sources)Traumatic AND/OR non-traumatic injury; Translations: [Other injury of unspecified body region]Onset: 64-09-8709NbjxvzgrArmbp skin disorders (13 sources)Atrophoderma; 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]Onset: 83-99-3412WqepycowBxwgm upper respiratory disease (20 sources)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; Translations: [Other allergic rhinitis]Onset: 07-18-2023 Resolved: 027622-88-2462ZasqewbFbgtd upper respiratory infections (20 sources)Acute maxillary sinusitis; Translations: [Acute recurrent maxillary sinusitis]Onset: 45-86-1921VnzvqbvoOpaczhli codes; unclassified (12 sources)Tobacco user; Translations: [Nondependent tobacco use disorder] Onset: 82-21-9982EzdlicreKvjbwlkh codes; unclassified (1 source)Early satiety; Translations: [Early satiety]Onset: 44-40-6370Yqzetxbg Screening and history of mental health and substance abuse codes (12 sources)History of tobacco use; Translations: [Personal history of tobacco use, presenting hazards to health]Onset: 99-79-8880PdvjwkzjSlywctnvhld injury; contusion (20 sources)Contusion of right foot; Translations: [Contusion of right foot, initial encounter]Onset: 12-28-2023 Resolved: 413589-41-8746UfljpfffLmloyaxapnkc (1 source)CONTACT W/AND (SUSP) EXPOS COVID-19; Translations: [CONTACT W/AND (SUSP) EXPOS COVID-19]Onset: 77-01-2160Dbdxzbsqsinw (1 source)Chronic cough R05.3Unclassified (1 source)Allergic rhinitis, cause unspecified; Translations: [Allergic rhinitis, cause unspecified]Unclassified (1 source)Unspecified backache; Translations: [Unspecified backache]Onset: 72-93-7847Lcrlauqbypfc (1 source)Personal history of tobacco use, presenting hazards to health; Translations: [Personal history of tobacco use, presenting hazards to health] Onset: 47-90-1407Xscnvsuohugs (1 source)Nondependent tobacco use disorder; Translations: [Nondependent tobacco use disorder]Onset: 17-14-1922Kqkvsmtcrjoc (1 source)Bacterial infection, unspecified, in conditions classified elsewhere and of unspecified site; Translations: [Bacterial infection, unspecified, in conditions classified elsewhere and of unspecified site]Onset: 46-56-1745Kyquy infection (20 sources)Genital herpes simplex; Translations: [Herpesviral infection of urogenital system, unspecified]Onset: 09-22-2009 Resolved: hronic Results Test NameValueInterpretationReference RangeFacilityBI MAMMOGRAM SCREENING TOMOSYNTHESIS BILATERALon 55-57-2800CH MAMMOGRAM SCREENING TOMOSYNTHESIS BILATERALThis is a summary [...] IS VERY IMPORTANT TO YOUR HEALTH. THE [place] [employer] GUIDELINES RECOMMEND THATWOMEN 40 YEARS [...] Chemistry - challengeOrdered By: Fernanda Concepcion on 16-66-0997Witxftcqf (Vitamin B12) [Mass/Vol]1187 pg/jN620-9353UiauzprvmUniversity Hospitals Lake West Medical CenterComment on above:Performed at: - [place] [id number] Director: Andres Arboleda PhD, Phone: [phone] Panel InformationOrdered By: Fernanda Concepcion on 58-58-3882Eiscey44.50 ng/mL8.60-58.90[facility] Medical CenterBasophils Auto (Bld) [#/Vol]Ordered By: Ute Griffin on 01-27-2025 Basophils (Bld) [#/Vol]Automated basophil count0.0-0.2FMercy Health Willard HospitalBasophils/100 WBC Auto (Bld)Ordered By: Ute Griffin on 01-27-2025 Basophils/100 WBC (Bld)Automated basophil %.[facility] Complete Blood Count Auto Diffon 36-11-2827Zmuokqwaw (Bld) [#/Vol]0.1 10*3/uL Normal0.0-0.2The [facility] Physician GroupComment on above:Result Comment: PERFORMED BY: [place] [address] [place] [address] PATHOLOGIST FIRE MARSHAL ANTONIO PEREA M.D.Performed By: #### BENNY, CBC, FE and TIBC ####[address] Basophils/100 WBC (Bld)1.2 %Normal.The [facility] Physician GroupComment on above:Performed By: #### BENNY, CBC, FE and TIBC ####[place] [address] USAEosinophils (Bld) [#/Vol]0.0 10*3/uL Normal0.0-0.45The [facility] Physician GroupComment on above:Performed By: #### BENNY, CBC, FE and TIBC ####[place] [address] USAEosinophils/100 WBC (Bld)0.5 %Normal.The [facility] Physician GroupComment on above:Performed By: #### BENNY, CBC, FE and TIBC ####[address] Erythrocyte distribution width (RBC) [Ratio]13.2 %Sreagb05.9-15.3The [facility] Physician GroupComment on above:Performed By: #### BENNY, CBC, FE and TIBC ####[address] Hematocrit (Bld) [Volume fraction]41.5 %Eovysx84.0-46.4The [facility] Physician GroupComment on above:Performed By: #### BENNY, CBC, FE and TIBC ####[place] [address] USAHemoglobin (Bld) [Mass/Vol]14.4 g/sBOjfdsv90.8-15.4The [facility] Physician GroupComment on above: Performed By: #### BENNY, CBC, FE and TIBC ####[place] [address] USALymphocytes (Bld) [#/Vol]1.9 10*3/uLNormal 1.00-4.8The [facility] Physician GroupComment on above:Performed By: #### BENNY, CBC, FE and TIBC ####[place] [address] USALymphocytes/100 WBC (Bld)25.6 %Normal.[facility] Comment on above:Performed By: #### BENNY, CBC, FE and TIBC ####[address] (RBC) [Entitic mass]35.1 kvFdbw81.7-34.3The [facility] Physician GroupComment on above:Performed By: #### BENNY, CBC, FE and TIBC ####[address] (RBC) [Entitic vol]101.2 gYWaty02-966Yym [facility] Physician GroupComment on above:Performed By: #### BENNY, CBC, FE and TIBC ####[address] Mean Corpuscular HGB Conc34.6 g/pOWbndnu68.0-35.0The [facility] Physician [facility] Comment on above:Performed By: #### BENNY, CBC, FE and TIBC ####[place] [address] USAMonocytes (Bld) [#/Vol]0.3 10*3/uLNormal0.0-0.8The [facility] Physician GroupComment on above:Performed By: #### BENNY, CBC, FE and TIBC ####[place] [address] USAMonocytes/100 WBC (Bld)4.4 %Normal.[facility] Physician GroupComment on above:Performed By: #### BENNY, CBC, FE and TIBC ####[address] Neutrophils (Bld) [#/Vol]4.9 10*3/uLNormal1.8-7.7The [facility] Comment on above:Performed By: #### BENNY, CBC, FE and TIBC ####[place] [address] USANeutrophils/100 WBC (Bld)68.3 %Normal.The [facility] Physician GroupComment on above:Performed By: #### BENNY, CBC, FE and TIBC ####[place] [address] USANRBC%0.1 /100{WBC}Normal0-0.5The [facility] Physician GroupComment on above:Performed By: #### BENNY, CBC, FE and TIBC ####[place] [address] USAPlatelet mean volume (Bld) [Entitic vol]7.7 fLNormal6.3-10.7The [facility] Physician GroupComment on above:Performed By: #### BENNY, CBC, FE and TIBC ####[place] [address] USAPlatelets (Bld) [#/Vol]234 10*3/yVCcgepw295-196Kda [facility] Physician GroupComment on above:Performed By: #### BENNY, CBC, FE and TIBC ####[place] [address] [place] RBC (Bld) [#/Vol]4.10 10*6/uLNormal3.60-5.00The [facility] Physician GroupComment on above:Performed By: #### BENNY, CBC, FE and TIBC ####[place] [address] USAWBC (Bld) [#/Vol]7.2 10*3/uL Normal3.8-11.6The [facility] Physician GroupComment on above:Performed By: #### BENNY, CBC, FE and TIBC ####[place] [address] USAEosinophils Auto (Bld) [#/Vol]Ordered By: Ute Griffin on 33-25-7502Kxlockjtrkq (Bld) [#/Vol]Automated eosinophil count0.0-0.45 [facility] CenterEosinophils/100 WBC Auto (Bld)Ordered By: Ute Griffin on 38-07-7248Ooegqvdcitr/100 WBC (Bld)Automated eosinophil %.[facility] CenterErythrocyte distribution width Auto (RBC) [Ratio]Ordered By: Ute Griffin on 02-11-9171Hjeyonyqxzx distribution width (RBC) [Ratio] Erythrocyte distribution width [Ratio] by Automated count11.9-15.3FMercy Health Willard HospitalFerritinon 52-41-7629Qilmnxvq [Mass/Vol]30.5 ng/mLNormal 11.0-306.8The [facility] Physician GroupComment on above:Result Comment: PERFORMED BY: [facility] [address] [place] [address] PATHOLOGIST FIRE MARSHAL ANTONIO PEREA M.D.Performed By: #### BENNY, CBC, FE and TIBC ####[address] Ferritin [Mass/volume] in Serum or PlasmaOrdered By: Ute Griffin on 01-27-2025 Ferritin [Mass/Vol]Ferritin [Mass/volume] in Serum or Zdjrmn61.0-306.8[facility] Medical CenterHematocrit Auto (Bld) [Volume fraction]Ordered By: Ute Griffin on 15-51-7975Zdxeqqyebp (Bld) [Volume fraction]Hematocrit [Volume Fraction] of Blood by Automated count34.0-46.4FMercy Health Willard Hospital Hemoglobin [Mass/volume] in BloodOrdered By: Ute Griffin on 01-27-2025 Hemoglobin (Bld) [Mass/Vol]Hemoglobin [Mass/volume] in Blood11.8-15.4FMercy Health Willard HospitalIron [Mass/volume] in Serum or PlasmaOrdered By: Ute Griffin on 80-30-7540Ygoe [Mass/Vol]Iron [Mass/volume] in Serum or Shhosd22-263 [facility] CenterIron and TIBC Profileon 01-27-2025% Iron Ubsycleipv92.7 %Dcusnb49-57Bzp [facility] Physician [facility] HospitalComment on above: Performed By: #### BENNY, CBC, FE and TIBC ####[address] [Mass/Vol]151 ug/nZDbhkgk69-149Btx [facility] Physician GroupComment on above:Performed By: #### BENNY, CBC, FE and TIBC ####[facility] [address] Total Iron Binding Oneuthgy152 ug/rLOtlkoo196-291Afu [facility] Physician Group Comment on above:Performed By: #### BENNY, CBC, FE and TIBC ####[facility] [address] [place] [address] USATransferrin [Mass/Vol]231 mg/fNQlejvm857-082Ase [facility] Physician GroupComment on above:Performed By: #### BENNY, CBC, FE and TIBC ####[facility] [address] [place] [address] USALeukocytes [#/volume] corrected for nucleated erythrocytes in Blood by Automated counOrdered By: Ute Griffin on 55-00-1066CFG corrected for nucl RBC Auto (Bld) [#/Vol]Leukocytes [#/volume] corrected for nucleated erythrocytes in Blood by Automated coun3.8-11.6FMercy Health Willard HospitalLymphocytes Auto (Bld) [#/Vol]Ordered By: Ute Griffin on 44-12-1999Nouupmbdecl (Bld) [#/Vol]Lymphocytes [#/volume] in Blood by Automated count1.00-4.8[facility] CenterLymphocytes/100 WBC Auto (Bld) Ordered By: Ute Griffin on 63-52-0752Lsepznoburn/100 WBC (Bld)Lymphocytes/100 leukocytes in Blood by Automated count.[facility] Auto (RBC) [Entitic mass]Ordered By: Ute Griffin on 31-54-4268GWA (RBC) [Entitic mass]MCH [Entitic mass] by Automated aabjpClvz39.7-34.3FHolmes County Joel [facility]omerene [facility] Hospital Auto (RBC) [Mass/Vol]Ordered By: Ute Griffin on 01-27-2025 MCHC (RBC) [Mass/Vol]MCHC [Mass/volume] by Automated count32.0-35.0[facility] Medical CenterMCV Auto (RBC) [Entitic vol]Ordered By: Ute Griffin on 36-18-0029OJF (RBC) [Entitic vol]MCV [Entitic volume] by Automated countHigh 80-100[facility] CenterMonocytes Auto (Bld) [#/Vol]Ordered By: Ute Griffin on 67-30-6842Xubzrbqis (Bld) [#/Vol]Automated blood monocyte count 0.0-0.8[facility] CenterMonocytes/100 WBC Auto (Bld)Ordered By: Ute Griffin on 53-23-7568Lzdynkckr/100 WBC (Bld)Automated monocyte %.[facility] CenterNeutrophils Auto (Bld) [#/Vol]Ordered By: Ute Griffin on 07-41-7907Gvqcmppmvoz (Bld) [#/Vol]Neutrophils [#/volume] in Blood by Automated count1.8-7.7FMercy Health Willard HospitalNeutrophils/100 WBC Auto (Bld) Ordered By: Ute Griffin on 10-80-8042Qerazrcnlrh/100 WBC (Bld)Automated neutrophil %.[facility] CenterNucleated erythrocytes [Presence] in Blood by Automated countOrdered By: Ute Griffin on 04-68-9681Gifqennfx RBC Auto Ql (Bld)Nucleated erythrocytes [Presence] in Blood by Automated count0-0.5 [facility] Medical CenterPlatelet mean volume Auto (Bld) [Entitic vol] Ordered By: Ute Griffin on 79-21-5140Mksfzdin mean volume (Bld) [Entitic vol] Platelet mean volume [Entitic volume] in Blood by Automated count6.3-10.7 [facility] Medical CenterPlatelets Auto (Bld) [#/Vol]Ordered By: Ute Griffin on 88-29-3681Blqbetbnp (Bld) [#/Vol]Platelets [#/volume] in Blood by Automated csnob883-117FmfsoffjqUniversity Hospitals Lake West Medical CenterRBC Auto (Bld) [#/Vol] Ordered By: Ute Griffin on 52-09-3194OUE (Bld) [#/Vol]Erythrocytes [#/volume] in Blood by Automated count3.60-5.00Ashtabula General Hospitalerum or plasma iron binding capacity measurement (mass/volume)Ordered By: Ute Griffin on 03-47-2899Vpxq binding capacity [Mass/Vol]Iron binding capacity [Mass/volume] in Serum or Blvtyk583-529SoqjbczdnAshtabula General Hospitalerum or plasma iron saturation measurement (mass fraction)Ordered By: Ute Griffin on 34-31-7918Mjuz saturation [Mass fraction]Iron saturation [Mass Fraction] in Serum or Plasma 20-50[facility] CenterTransferrin [Mass/volume] in Serum or PlasmaOrdered By: Ute Griffin on 25-50-0765Cwhlhtogbvr [Mass/Vol]Transferrin [Mass/volume] in Serum or Nbhvua346-861MihcqpjlbUniversity Hospitals Lake West Medical CenterWBC Auto (Bld) [#/Vol]Ordered By: Ute Griffin on 21-24-9060TDJ (Bld) [#/Vol]Leukocytes [#/volume] in Blood by Automated count3.8-11.6FMercy Health Willard Hospital X-ray reportOrdered By: Freedom Mcmillan on 03-92-4305Goioq reportMERCY HEALTH [facility] [place] [address] XRay Report Signed Patient: Katy Banuelos MR#: [id number] : 1975 Acct:[id number] Age/Sex: 50 / F ADM Date: 5 [facility] Attending Dr: Marta Hernandez DO Copies to: [...] Jr., D.OJf 01/27/2025 2:32 PM Dictation Location: [place] [address] Transcribed By: [facility] 01/27/25 143 Dictated By: Freedom Mcmillan Jr, DO 01/27/25 143 Signed By: 01/27/25 1432 [facility] CenterXR chest 2V*on 85-09-0162QH chest 2V*[facility] [place] [address] [place] [address] XRay Report Signed Patient: Katy Banuelos MR#: [id number] : 1975 Acct:[id number] Age/Sex: 50 / F ADM Date: 01/27/25 Loc: XDS Room: Type: [facility] Attending Dr: Marta Hernandez DO Copies to: [...] Jr., D.O. 01/27/2025 2:32 PM Dictation Location: [place] [address] Transcribed By: [facility] 01/27/251431 Dictated By: Freedom Mcmillan Jr, DO 01/27/25 143 Signed By: 01/27/[address] [place] [address] Physician GroupNo Panel Informationon 33-84-7618NztqyuMarkel Yanez LPN 01/19/2025 9:08 PM Splint Application [...] left foot cam boot. Ref # [id number] [facility] CenterXR FOOT 3+ VIEWS LEFTon 95-43-9475ZO FOOT 3+ VIEWS LEFTTitle of exam: XR [...] report is generated using voice recognition reporting (DoubleBeam). On occasion, Powerscribe erroneously drops words from [...] report is generated using voice recognition reporting (Bandgap Engineeringcribe). On occasion, Powerscribe erroneously drops words from [...] report is generated using voice recognition reporting (Pure Nootropicse). On occasion, Powerscribe erroneously drops words from the report or replaces the spoken word with a similar sounding word. Please call with any questions/concerns regarding the report. [facility] CenterRadiology Study observation (narrative)[facility] CenterXR Foot - left 3 ViewsOrdered By: Adonay Lawrence on 78-72-6804HJBUMissouri Rehabilitation Center Work Phone: Laboratory - Cytologyon 47-49-2096Ufyjnizyhi Cyto stain Nom (Cvx/Vag) [ID]CommentMissouri Rehabilitation CenterComment on above:Neva Huynh, Window Decorator (ASCP)Cytology report Cyto stain Doc (Cvx/Vag)CommentMissouri Rehabilitation Center Comment on above:NEGATIVE FOR INTRAEPITHELIAL LESION OR MALIGNANCY.Cytology report Cyto stain.thin prep Doc (Cvx/Vag)CommentMissouri Rehabilitation CenterComment on above: This liquid based ThinPrep(R) pap test was screened with the use of an image guided system. Statement of adequacy Cyto stain (Cvx/Vag) [Interp]CommentMissouri Rehabilitation CenterComment on above:Satisfactory for evaluation. Endocervical and/or squamous metaplastic cells (endocervical component) are present. Laboratory - Microbiology and Antimicrobial susceptibilityon 09-29-2655MGG 16+18+31+33+35+39+45+51+52+56+58+59+66+68 DNA Probe+sig amp Ql (Cvx)Negative NegativeNOUniversity Health Truman Medical CenterComment on above:This nucleic acid amplification test detects fourteen high-risk HPV types (16,18,31,33,35,39,45,51,52,56,58,59,66,68) without differentiation. Microscopic observation Other stain Nom (Unsp spec).[facility] CenterLaboratory - Miscellaneous testson 56-61-1170Nqobeun comment (Unsp spec) [Interp]CommentMissouri Rehabilitation CenterComment on above:The Pap smear is a screening test designed to aid in the detection of premalignant and malignant conditions of the uterine cervix. It is not a diagnostic procedure and should not be used as the sole means of detecting cervical cancer. Both false-positive and false-negative reports do occur. No Panel Informationon 80-29-2392Rwqlhsimi ICD code [Identifier]CommentMissouri Rehabilitation CenterComment on above:Z01.419 Z12.4 Performed at: [address] [place] [address] [address]to Hist[address] [place] [address], [place], [place] [id number] Audiovisual Production Specialist: Antony Dunne MD, Phone: [phone] Performed at: - [facility] [address] [id number] Audiovisual Production Specialist: Faviola Wade MD, Phone: [phone] Performed at: - [facility] [address] [id number] Audiovisual Production Specialist: Faviola Wade MD, Phone: [phone] Specimen Comment: No. of containers..01 ThinPrep [facility]ialWe[facility] Laboratory - Chemistry and Chemistry - challengeon 05-91-8800Tgtvup Ag 125 Qn7.5 [arb'U]/mL0.0 - 38.1 U/mLNOMS [...] Postmenopausal 25.8 - 134.8 No Panel Informationon 01-87-2634Mfruaixrk at: - [facility] [address] [id number] Audiovisual Production Specialist: Andres Arboleda PhD, Phone: [phone] Cornell Medical Center Laboratory - Chemistry and Chemistry - challengeon 00-88-5876Mfjd T4 [Mass/Vol] 0.92 ng/dL0.76-1.46[facility] CenterTSH Qn0.850 m[IU]/L 0.358-3.740[facility] CenterNo Panel Informationon 11-10-2024 Miscellaneous TestCOMMENT.[facility] Medical CenterComment on above:Test Ordered: [id number] AChR Binding Abs, SerumAChR Binding Abs, Serum <0.03 nmol/L BN Reference Range: 0.00-0.24 Negative: 0.00 - 0.24 Borderline: 0.25 - 0.40 Positive: >0.40Performed at: [address] [id number] Director: Rikki Robert MD, Phone: [phone] at: [address] [id number] Director: Andres Arboleda PhD, Phone: [phone] Ordered: [id number] AChR Blocking Abs, SerumAChR Blocking Abs, Serum 13 % BN Reference Range: 0-25This test was developed and its performance characteristicsdetermined by [facility]stex[facility]. It has not been cleared orapproved by the Food and Drug Administration. Negative: 0 - 25 Borderline: 26 - 30 Positive:>30Performed at: [address] [id number] Director: Rikki Robert MD, Phone: [phone] at: [address] [id number] Director: Andres Arboleda PhD, Phone: [phone] or plasma thyroglobulin antibody assay (units/volume)on 63-78-1605Qkmzxvikmarer Ab QnSerum or plasma thyroglobulin antibody assay (units/volume)0.0-0.9[facility] CenterComment on above:Thyroglobulin Antibody measured by Sasha CoulterMethodologyIt should be noted that the presence of thyroglobulinantibodies may not be pathogenic nor diagnostic, especiallyat very low levels. The assay apprentice painter hand has found thatfour percent of individuals without evidence of thyroiddisease or autoimmunity will have positive TgAb levels upto 4 IU/mL.Performed at: [address] [id number] Director: Andres Arboleda PhD, Phone: [phone] or plasma thyroperoxidase antibody assay (units/volume)on 02-21-6748PWK Ab QnSerum or plasma thyroperoxidase antibody assay (units/volume)0-34Firnorton community hospital [facility] Medical CenterMR head/brain wo/w conon 14-80-3327TI head/brain wo/w [facility] [place] [address] MRI Report Signed Patient: Katy Banuelos MR#: [id number] : 1975 Acct:[id number] Age/Sex: 49 / F ADM Date: 11/05/24 Loc: Room: Type: [facility] Attending Dr: Fernanda Concepcion MD Copies to: [...] Fantasma Figueroa M.D.11/05/2024 5:42 PM Dictation Location: [place] [address] Transcribed By: [facility] 11/05/24 174 Dictated By: Fantasma Figueroa MD 11/05/24 1735 Signed By: 11/05/24 174[facility] Physician GroupSoutheastern Arizona Behavioral Health Servicesetic resonance imaging reportOrdered By: Fantasma Figueroa on 76-94-9044Yyrjw [facility] Main [place] [id number] MRI Report Signed Patient: Katy Banuelos MR#: [id number] : 1975 Acct:[id number] Age/Sex: 49 / F ADM Date: 5 Loc: MR Room: Type: [facility] Attending Dr: Fernanda Concepcion MD Copies to: [...] Fantasma Figueroa M.D.11/05/2024 5:42 PM Dictation Location: [place] [address] Transcribed By: [facility] 11/05/241741 Dictated By: Fantasma Figueroa MD 11/05/241734 Signed By: 11/05/241741 [facility] Work Phone: Basophils Auto (Bld) [#/Vol]Ordered By: Ute Griffin on 07-09-2878Snwkxkavx (Bld) [#/Vol]Automated basophil count0.0-0.2FMercy Health Willard HospitalBasophils/100 WBC Auto (Bld)Ordered By: Ute Griffin on 27-08-9152Dhnzyruiw/100 WBC (Bld)Automated basophil %.[facility] CenterComplete Blood Count Auto Diffon 69-63-4823Kqdatpgrr (Bld) [#/Vol]0.1 10*3/uLNormal0.0-0.2The [facility] Physician GroupComment on above:Result Comment: PERFORMED BY: [place] [address] PATHOLOGIST FIRE MARSHAL ANTONIO PEREA M.D.Performed By: #### BENNY, FE and TIBC, CBC #### [place] [address] USABasophils/100 WBC (Bld)0.9 %Normal.The [facility] Physician GroupComment on above:Performed By: #### BENNY, FE and TIBC, CBC #### [place] [address] USAEosinophils (Bld) [#/Vol]0.1 10*3/uLNormal0.0-0.45The [facility] Physician GroupComment on above:Performed By: #### BENNY, FE and TIBC, CBC #### [place] [address] USAEosinophils/100 WBC (Bld)0.9 %Normal.The [facility] Physician GroupComment on above:Performed By: #### BENNY, FE and TIBC, CBC #### [place] [address] USAErythrocyte distribution width (RBC) [Ratio]14.4 %Normal 11.9-15.3The [facility] Physician GroupComment on above:Performed By: #### BENNY, FE and TIBC, CBC #### [place] [address] USAHematocrit (Bld) [Volume fraction]39.2 %Lygmtz68.0-46.4The [facility] Physician GroupComment on above:Performed By: #### BENNY, FE and TIBC, CBC #### [place] [address] USAHemoglobin (Bld) [Mass/Vol]13.7 g/iJZnfdkq04.8-15.4The [facility] Physician GroupComment on above:Performed By: #### BENNY, FE and TIBC, CBC #### [place] [address] USALymphocytes (Bld) [#/Vol]1.4 10*3/uLNormal1.00-4.8The [facility] Physician GroupComment on above:Performed By: #### BENNY, FE and TIBC, CBC #### [place] [address] USALymphocytes/100 WBC (Bld)21.4 %Normal.The [facility] Physician GroupComment on above:Performed By: #### BENNY, FE and TIBC, CBC #### [address] (RBC) [Entitic mass]34.7 aeCgpn42.7-34.3The [facility] Physician GroupComment on above:Performed By: #### BENNY, FE and TIBC, CBC #### [address] (RBC) [Entitic vol]99.4 rRCzhfpw84-886Ebc [facility] Physician GroupComment on above:Performed By: #### BENNY, FE and TIBC, CBC #### [place] [address] USAMean Corpuscular HGB Conc34.9 g/kGRlzykp76.0-35.0The [facility] Physician GroupComment on above:Performed By: #### BENNY, FE and TIBC, CBC #### [place] [address] USAMonocytes (Bld) [#/Vol]0.4 10*3/uLNormal0.0-0.8The [facility] Physician GroupComment on above:Performed By: #### BENNY, FE and TIBC, CBC #### [place] [address] USAMonocytes/100 WBC (Bld)5.4 %Normal.The [facility] Physician GroupComment on above:Performed By: #### BENNY, FE and TIBC, CBC #### [place] [address] USANeutrophils (Bld) [#/Vol]4.7 10*3/uLNormal1.8-7.7The [facility] Physician GroupComment on above:Performed By: #### BENNY, FE and TIBC, CBC #### [place] [address] USANeutrophils/100 WBC (Bld)71.4 %Normal.The [facility] Physician GroupComment on above:Performed By: #### BENNY, FE and TIBC, CBC #### [place] [address] USANRBC%0.1 /100{WBC}Normal0-0.5The [facility]ician Group Comment on above:Performed By: #### BENNY, FE and TIBC, CBC #### [place] [address] USAPlatelet mean volume (Bld) [Entitic vol]7.7 fLNormal 6.3-10.7The [facility] Physician GroupComment on above:Performed By: #### BENNY, FE and TIBC, CBC #### [place] [address] USAPlatelets (Bld) [#/Vol]242 10*3/bTDaqxha935-811Xqf [facility] Physician GroupComment on above:Performed By: #### BENNY, FE and TIBC, CBC #### [place] [address] USARBC (Bld) [#/Vol]3.95 10*6/uLNormal3.60-5.00The [facility] Physician GroupComment on above:Performed By: #### BENNY, FE and TIBC, CBC #### [place] [address] USAWBC (Bld) [#/Vol]6.6 10*3/uLNormal3.8-11.6The [facility] Physician GroupComment on above:Performed By: #### BENNY, FE and TIBC, CBC #### [place] [address] USAEosinophils Auto (Bld) [#/Vol]Ordered By: Ute Griffin on 33-62-0482Awmjfqrscqu (Bld) [#/Vol]Automated eosinophil count0.0-0.45[facility] CenterEosinophils/100 WBC Auto (Bld)Ordered By: Ute Griffin on 18-89-7766Hthbztkmisy/100 WBC (Bld)Automated eosinophil %.[facility] Medical CenterErythrocyte distribution width Auto (RBC) [Ratio]Ordered By: Ute Griffin on 70-33-5700Fqvmrkjckfg distribution width (RBC) [Ratio]Erythrocyte distribution width [Ratio] by Automated count11.9-15.3FMercy Health Willard HospitalFerritinon 65-63-5900Nxuukzhh [Mass/Vol]55.8 ng/uDSnpqob83.0-306.8The [facility] Physician GroupComment on above:Result Comment: PERFORMED BY: [place] [address] PATHOLOGIST FIRE MARSHAL ANTONIO PEREA M.D.Performed By: #### BENNY, FE and TIBC, CBC #### [place] [address] USAFerritin [Mass/volume] in Serum or PlasmaOrdered By: Ute Griffin on 07-09-2891Wrmssimd [Mass/Vol]Ferritin [Mass/volume] in Serum or Ebjbfd65.0-306.8[facility] Medical CenterHematocrit Auto (Bld) [Volume fraction]Ordered By: Ute Griffin on 53-38-2052Hsekjeicrd (Bld) [Volume fraction]Hematocrit [Volume Fraction] of Blood by Automated count34.0-46.4 [facility] CenterHemoglobin [Mass/volume] in BloodOrdered By: Ute Griffin on 92-33-0857Bszhqodclc (Bld) [Mass/Vol]Hemoglobin [Mass/volume] in Blood11.8-15.4FMercy Health Willard HospitalIron [Mass/volume] in Serum or PlasmaOrdered By: Ute Griffin on 10-70-0157Iojz [Mass/Vol]Iron [Mass/volume] in Serum or Jzvuba22-518UdlqgoldzUniversity Hospitals Lake West Medical CenterIron and TIBC Profileon 10-14-2024% Iron Jrbfzucryu29.4 %Mdfdws75-74Vmn [facility] Physician GroupComment on above:Performed By: #### BENNY, FE and TIBC, CBC #### [facility] [address] [place] [address] USAIron [Mass/Vol]140 ug/nDLsramz14-972Anr [facility] Physician GroupComment on above:Performed By: #### BENNY, FE and TIBC, CBC #### [facility] [address] [place] [address] USATotal Iron Binding Mvmtufjx331 ug/rXDgrpzk274-079Vca [facility] Physician GroupComment on above:Performed By: #### BENNY, FE and TIBC, CBC #### [facility] [address] [place] [address] USATransferrin [Mass/Vol]216 mg/oANfwddh376-125Evp [facility] Physician GroupComment on above:Performed By: #### BENNY, FE and TIBC, CBC #### [facility] [address] [place] [address] USALeukocytes [#/volume] corrected for nucleated erythrocytes in Blood by Automated counOrdered By: Ute Griffin on 29-98-9757HIV corrected for nucl RBC Auto (Bld) [#/Vol]Leukocytes [#/volume] corrected for nucleated erythrocytes in Blood by Automated coun3.8-11.6FMercy Health Willard Hospital Lymphocytes Auto (Bld) [#/Vol]Ordered By: Ute Griffin on 31-56-7166Mtwngbseiqs (Bld) [#/Vol]Lymphocytes [#/volume] in Blood by Automated count1.00-4.8[facility] Medical CenterLymphocytes/100 WBC Auto (Bld)Ordered By: Ute Griffin on 11-93-3442Xtyesdcmmnn/100 WBC (Bld)Lymphocytes/100 leukocytes in Blood by Automated count.[facility] Auto (RBC) [Entitic mass] Ordered By: Ute Griffin on 94-38-5957SKC (RBC) [Entitic mass]MCH [Entitic mass] by Automated onhnsTugx30.7-34.3FCleveland Clinic Medina HospitalHC Auto (RBC) [Mass/Vol]Ordered By: Ute Griffin on 42-57-9365PKLD (RBC) [Mass/Vol]MCHC [Mass/volume] by Automated count32.0-35.0[facility] Medical CenterMCV Auto (RBC) [Entitic vol]Ordered By: Ute Griffin on 71-29-3926IOW (RBC) [Entitic vol]MCV [Entitic volume] by Automated -223DoenysfgaUniversity Hospitals Lake West Medical CenterMonocytes Auto (Bld) [#/Vol]Ordered By: Ute Griffin on 10-14-2024 Monocytes (Bld) [#/Vol]Automated blood monocyte count0.0-0.8[facility] Medical CenterMonocytes/100 WBC Auto (Bld)Ordered By: Ute Griffin on 10-14-2024 Monocytes/100 WBC (Bld)Automated monocyte %.[facility] Neutrophils Auto (Bld) [#/Vol]Ordered By: Ute Griffin on 80-01-4400Xinqustaqin (Bld) [#/Vol]Neutrophils [#/volume] in Blood by Automated count1.8-7.7FMercy Health Willard HospitalNeutrophils/100 WBC Auto (Bld)Ordered By: Ute Griffin on 45-96-3703Hblhukstmzw/100 WBC (Bld)Automated neutrophil %.[facility] Medical CenterNucleated erythrocytes [Presence] in Blood by Automated count Ordered By: Ute Griffin on 02-66-6564Zmfkcuhsy RBC Auto Ql (Bld)Nucleated erythrocytes [Presence] in Blood by Automated count0-0.5FMercy Health Willard HospitalPlatelet mean volume Auto (Bld) [Entitic vol]Ordered By: Ute Griffin on 36-55-0359Pcgccjmo mean volume (Bld) [Entitic vol]Platelet mean volume [Entitic volume] in Blood by Automated count6.3-10.7FMercy Health Willard HospitalPlatelets Auto (Bld) [#/Vol]Ordered By: Ute Griffin on 10-14-2024 Platelets (Bld) [#/Vol]Platelets [#/volume] in Blood by Automated upfpd990-295 [facility] Medical CenterRBC Auto (Bld) [#/Vol]Ordered By: Ute Griffin on 24-92-6091XTT (Bld) [#/Vol]Erythrocytes [#/volume] in Blood by Automated count3.60-5.00Ashtabula General Hospitalerum or plasma iron binding capacity measurement (mass/volume)Ordered By: Ute Griffin on 10-42-1452Cvei binding capacity [Mass/Vol]Iron binding capacity [Mass/volume] in Serum or Odesuh288-147OlknpvvimAshtabula General Hospitalerum or plasma iron saturation measurement (mass fraction)Ordered By: Ute Griffin on 84-25-2729Xpvu saturation [Mass fraction]Iron saturation [Mass Fraction] in Serum or Cwdtuo05-96BibeyobejUniversity Hospitals Lake West Medical CenterTransferrin [Mass/volume] in Serum or PlasmaOrdered By: Ute Griffin on 68-06-2038Aqfelmwtddt [Mass/Vol]Transferrin [Mass/volume] in Serum or Btqljg546-864GuawrapfxUniversity Hospitals Lake West Medical CenterWBC Auto (Bld) [#/Vol] Ordered By: Ute Griffin on 05-12-5250QRU (Bld) [#/Vol]Leukocytes [#/volume] in Blood by Automated count3.8-11.6FMercy Health Willard HospitalBasophils Auto (Bld) [#/Vol]Ordered By: Ute Griffin on 16-48-2105Bngotapqt (Bld) [#/Vol] Automated basophil count0.0-0.2FMercy Health Willard HospitalBasophils/100 WBC Auto (Bld)Ordered By: Ute Griffin on 26-36-2393Jbjxfqjyu/100 WBC (Bld) Automated basophil %.[facility] CenterComplete Blood Count Auto Diffon 16-78-3116Ukzoloctk (Bld) [#/Vol]0.1 10*3/uLNormal0.0-0.2The [facility] Physician GroupComment on above:Result Comment: PERFORMED BY: [place] [address] PATHOLOGIST FIRE MARSHAL ANTONIO PEREA M.D.Performed By: #### CBC, BENNY, FE and TIBC #### [facility] [address] [place] [address] USABasophils/100 WBC (Bld)1.3 %Normal.The [facility] Physician GroupComment on above:Performed By: #### CBC, BENNY, FE and TIBC #### [place] [address] USAEosinophils (Bld) [#/Vol]0.0 10*3/uLNormal0.0-0.45The [facility] Physician GroupComment on above:Performed By: #### CBC, BENNY, FE and TIBC #### [place] [address] USAEosinophils/100 WBC (Bld)0.6 %Normal.The [facility] Physician GroupComment on above:Performed By: #### CBC, BENNY, FE and TIBC #### [place] [address] USAErythrocyte distribution width (RBC) [Ratio]16.4 %High 11.9-15.3The [facility] Physician GroupComment on above:Performed By: #### CBC, BENNY, FE and TIBC #### [place] [address] USAHematocrit (Bld) [Volume fraction]32.9 %Low34.0-46.4The [facility] Physician GroupComment on above:Performed By: #### CBC, BENNY, FE and TIBC #### [place] [address] USAHemoglobin (Bld) [Mass/Vol]11.1 g/dLLow11.8-15.4The [facility] Physician GroupComment on above:Performed By: #### CBC, BENNY, FE and TIBC #### [place] [address] USALymphocytes (Bld) [#/Vol]1.4 10*3/uLNormal1.00-4.8The [facility] Physician GroupComment on above:Performed By: #### CBC, BENNY, FE and TIBC #### [place] [address] USALymphocytes/100 WBC (Bld)21.1 %Normal.The [facility] Physician GroupComment on above:Performed By: #### CBC, BENNY, FE and TIBC #### [place] [address] USAMCH (RBC) [Entitic mass]32.0 vaTvlmfn57.7-34.3The [facility] Physician GroupComment on above:Performed By: #### CBC, BENNY, FE and TIBC #### [facility] [address] (RBC) [Entitic vol]94.4 vJLzsjdn58-805Zjb [facility] Physician GroupComment on above:Performed By: #### CBC, BENNY, FE and TIBC #### [facility] [address] [place] [address] USAMean Corpuscular HGB Conc33.9 g/nZYcdphb15.0-35.0The [facility] Physician GroupComment on above:Performed By: #### CBC, BENNY, FE and TIBC #### [place] [address] USAMonocytes (Bld) [#/Vol]0.4 10*3/uLNormal0.0-0.8The [facility] Physician GroupComment on above:Performed By: #### CBC, BENNY, FE and TIBC #### [place] [address] USAMonocytes/100 WBC (Bld)5.3 %Normal.The [facility] Physician GroupComment on above:Performed By: #### CBC, BENNY, FE and TIBC #### [place] [address] USANeutrophils (Bld) [#/Vol]4.8 10*3/uLNormal1.8-7.7The [facility] Physician GroupComment on above:Performed By: #### CBC, BENNY, FE and TIBC #### [place] [address] USANeutrophils/100 WBC (Bld)71.7 %Normal.The [facility] Physician GroupComment on above:Performed By: #### CBC, BENNY, FE and TIBC #### [place] [address] USANRBC%0.0 /100{WBC}Normal0-0.5The [facility] Physician Group Comment on above:Performed By: #### CBC, BENNY, FE and TIBC #### [facility] [address] [place] [address] USAPlatelet mean volume (Bld) [Entitic vol]7.6 fLNormal 6.3-10.7The [facility] Physician GroupComment on above:Performed By: #### CBC, BENNY, FE and TIBC #### [facility] [address] [place] [address] USAPlatelets (Bld) [#/Vol]223 10*3/hKXfmnop798-366Evu [facility] Physician GroupComment on above:Performed By: #### CBC, BENNY, FE and TIBC #### [place] [address] USARBC (Bld) [#/Vol]3.49 10*6/uLLow3.60-5.00The [facility] Physician GroupComment on above:Performed By: #### CBC, BENNY, FE and TIBC #### [place] [address] USAWBC (Bld) [#/Vol]6.7 10*3/uLNormal3.8-11.6The [facility] Physician GroupComment on above:Performed By: #### CBC, BENNY, FE and TIBC #### [place] [address] USAEosinophils Auto (Bld) [#/Vol]Ordered By: Ute Griffin on 71-65-6596Enxxssfndws (Bld) [#/Vol]Automated eosinophil count0.0-0.45[facility] CenterEosinophils/100 WBC Auto (Bld)Ordered By: Ute Griffin on 84-24-9059Slzzugjqafm/100 WBC (Bld)Automated eosinophil %.[facility] Medical CenterErythrocyte distribution width Auto (RBC) [Ratio]Ordered By: Ute Griffin on 09-22-9629Oercbqqvxya distribution width (RBC) [Ratio]Erythrocyte distribution width [Ratio] by Automated hgyowRyxi22.9-15.3FMercy Health Willard HospitalFerritinon 13-29-9739Hgebljid [Mass/Vol]5.2 ng/mLLow11.0-306.8The [facility] Physician GroupComment on above:Result Comment: PERFORMED BY: [facility] [address] [place] [id number] PATHOLOGIST FIRE MARSHAL ANTONIO PEREA M.D.Performed By: #### CBC, BENNY, FE and TIBC #### [facility] [address] [place] [address] USAFerritin [Mass/volume] in Serum or PlasmaOrdered By: Ute Griffin on 38-40-5988Hioaqjuu [Mass/Vol]Ferritin [Mass/volume] in Serum or KtlpanXow45.0-306.8[facility] Medical CenterHematocrit Auto (Bld) [Volume fraction]Ordered By: Ute Griffin on 47-77-6230Kxjodowmoj (Bld) [Volume fraction]Hematocrit [Volume Fraction] of Blood by Automated ypgbeQrc57.0-46.4 [facility] Medical CenterHemoglobin [Mass/volume] in BloodOrdered By: Ute Griffin on 08-70-6433Rrqgiojabi (Bld) [Mass/Vol]Hemoglobin [Mass/volume] in KaygnCpe08.8-15.4FMercy Health Willard HospitalIron [Mass/volume] in Serum or PlasmaOrdered By: Ute Griffin on 21-82-3342Rrop [Mass/Vol]Iron [Mass/volume] in Serum or XkllylTps57-001VybjsqyolUniversity Hospitals Lake West Medical CenterIron and TIBC Profileon 08-04-2024% Iron Duaopradga22.2 %Zmw61-22Gks [facility] Physician [facility] Comment on above:Performed By: #### CBC, BENNY, FE and TIBC #### [facility] [address] [place] [address] USAIron [Mass/Vol]49 ug/xUUky03-577Lus [facility] Physician GroupComment on above:Performed By: #### CBC, BENNY, FE and TIBC #### [facility] [address] [place] [address] USATotal Iron Binding Querqedu396 ug/dAXvohzp533-305Sku [facility] Physician GroupComment on above:Performed By: #### CBC, BENNY, FE and TIBC #### [facility] [address] [place] [address] USATransferrin [Mass/Vol]288 mg/rPGceqqv114-621Oml [facility] Physician GroupComment on above:Performed By: #### CBC, BENNY, FE and TIBC #### [facility] [address] [place] [address] USALeukocytes [#/volume] corrected for nucleated erythrocytes in Blood by Automated counOrdered By: Ute Griffin on 79-49-0855YJM corrected for nucl RBC Auto (Bld) [#/Vol]Leukocytes [#/volume] corrected for nucleated erythrocytes in Blood by Automated coun3.8-11.6FMercy Health Willard Hospital Lymphocytes Auto (Bld) [#/Vol]Ordered By: Ute Griffin on 34-06-6236Dfhydotnqgp (Bld) [#/Vol]Lymphocytes [#/volume] in Blood by Automated count1.00-4.8[facility] Medical CenterLymphocytes/100 WBC Auto (Bld)Ordered By: Ute Griffin on 67-95-0567Rrluntkyhtb/100 WBC (Bld)Lymphocytes/100 leukocytes in Blood by Automated count.[facility] Auto (RBC) [Entitic mass] Ordered By: Ute Griffin on 02-92-3769ACS (RBC) [Entitic mass]MCH [Entitic mass] by Automated count24.7-34.3FCleveland Clinic Medina HospitalHC Auto (RBC) [Mass/Vol]Ordered By: Ute Griffin on 13-93-7960BILF (RBC) [Mass/Vol]MCHC [Mass/volume] by Automated count32.0-35.0[facility] Medical CenterMCV Auto (RBC) [Entitic vol]Ordered By: Ute Griffin on 74-33-2682YSM (RBC) [Entitic vol]MCV [Entitic volume] by Automated dawxr05-445AtopmvejdUniversity Hospitals Lake West Medical CenterMonocytes Auto (Bld) [#/Vol]Ordered By: Ute Griffin on 08-04-2024 Monocytes (Bld) [#/Vol]Automated blood monocyte count0.0-0.8[facility] Medical CenterMonocytes/100 WBC Auto (Bld)Ordered By: Ute Griffin on 08-04-2024 Monocytes/100 WBC (Bld)Automated monocyte %.[facility] Neutrophils Auto (Bld) [#/Vol]Ordered By: Ute Griffin on 11-35-0411Hqzzncxlsrp (Bld) [#/Vol]Neutrophils [#/volume] in Blood by Automated count1.8-7.7FMercy Health Willard HospitalNeutrophils/100 WBC Auto (Bld)Ordered By: Ute Griffin on 27-58-1814Xlzhhelhzpc/100 WBC (Bld)Automated neutrophil %.[facility] Medical CenterNucleated erythrocytes [Presence] in Blood by Automated count Ordered By: Ute Griffin on 37-60-5867Mnxmtlhso RBC Auto Ql (Bld)Nucleated erythrocytes [Presence] in Blood by Automated count0-0.5FMercy Health Willard HospitalPlatelet mean volume Auto (Bld) [Entitic vol]Ordered By: Ute Griffin on 62-85-6121Fmzlkqnk mean volume (Bld) [Entitic vol]Platelet mean volume [Entitic volume] in Blood by Automated count6.3-10.7FMercy Health Willard HospitalPlatelets Auto (Bld) [#/Vol]Ordered By: Ute Griffin on 08-04-2024 Platelets (Bld) [#/Vol]Platelets [#/volume] in Blood by Automated isszm330-046 [facility] CenterRBC Auto (Bld) [#/Vol]Ordered By: Ute Griffin on 84-16-8558CQK (Bld) [#/Vol]Erythrocytes [#/volume] in Blood by Automated countLow3.60-5.00Ashtabula General Hospitalerum or plasma iron binding capacity measurement (mass/volume)Ordered By: Ute Griffin on 78-47-6230Otwl binding capacity [Mass/Vol]Iron binding capacity [Mass/volume] in Serum or Rnrual975-877WrnbxjsuoAshtabula General Hospitalerum or plasma iron saturation measurement (mass fraction)Ordered By: Ute Griffin on 14-52-9117Cjqj saturation [Mass fraction]Iron saturation [Mass Fraction] in Serum or DkxrqrDoy40-49 [facility] Medical CenterTransferrin [Mass/volume] in Serum or Plasma Ordered By: Ute Griffin on 57-39-6032Ulgixykbaoq [Mass/Vol]Transferrin [Mass/volume] in Serum or Rleovt063-308WkvyjibzfUniversity Hospitals Lake West Medical CenterWBC Auto (Bld) [#/Vol]Ordered By: Ute Griffin on 63-36-6524HLX (Bld) [#/Vol]Leukocytes [#/volume] in Blood by Automated count3.8-11.6FMercy Health Willard Hospital EDMUNDO with Reflexon 42-46-1801UDB with ReflexNegativeNormalNegativeThe [facility] Physician GroupComment on above:Result Comment: Performed at: [facility] [place] [address] Audiovisual Production Specialist: Andres Arboleda PhD, Phone: [phone] PERFORMED BY: [place] [address] PATHOLOGIST FIRE MARSHAL JALEN LEON M.D.Performed By: #### EDMUNDO CHOICE #### [facility] ,Serum or plasma free cefuroxime measurement (mass/volume)Ordered By: Fernanda Concepcion on 42-17-8424Wfhfxgjnhy free [Mass/Vol]Serum or plasma free cefuroxime measurement (mass/volume)[facility] Medical CenterComment on above:Performed at: [facility] Lab[place] [address]Lab Director: Andres Arboleda PhD, Phone: [phone] thoracic spine 3V*on 20-20-6256LJ thoracic spine 3V*[facility] [address] XRay Report Signed Patient: Katy Banuelos MR#: [id number] : 1975 Acct:[id number] Age/Sex: 49 / F ADM Date: 07/22/24 Loc: XD Room: Type: [facility] Attending Dr: Fernanda Concepcion MD Copies to: [...] Mcmillan Jr., D.OJf07/22/2024 4:08 PM Dictation Location: [place] [address] Transcribed By: [facility] 07/22/24 160 Dictated By: Freedom Mcmillan Jr, DO 07/22/241606 Signed By: 07/22/24 1608NoNov[facility] Health [facility] Physician [facility] Community HospitalUrinalysis macro (dipstick) panel (U)on 16-54-4452Jviqgsxmj, UANegativeNegative - 4(70) +++ mg/dLNOMS HealthcareBlood, UANegativeNegative [...] IA.rapid Ql (U)Ordered By: Spencer Valadez on 45-72-2283EIH ( test) Ql (U)NegativeUniversity Hospitals Lake West Medical Center HCG,Urineon 16-38-3939Rgye HCG ( test) Ql (U)NegativeNoNovant Health Forsyth Medical Center Physician GroupComment on above:Result Comment: PERFORMED BY: [place] [address] [place] [address] PATHOLOGIST FIRE MARSHAL JALEN LEON M.D.Performed By: #### UHCG ####[facility] [address] [place] [address] [facility] 47-69-7432FApxbjtlg: [id number] Received: 03/04/24 Status: TEJAL Sneed Num: [id number] Spec Type: Surgical Subm Dr: Spencer Valadez MD Tissues: A Duodenum - Biopsy (DUODENUM) B GASTRIC FOR HP (GASTRIC HP) C Colon Biopsy (HEPATIC FLEXURE POLYP) Procedures: HE/6, Gross/Micro L4/3, H PYLORI, IHC First AB Age/ Patient Sex Location Account Attending Physician Katy Banuelos 49/F [id number] Spencer Valadez MD SPEC NUM: [id number] RECD: 03/04/24 STATUS: TEJAL SNEED NUM: [id number] TWIN: 03/04/24 DR: Spencer Valadez MD ENTERED: 03/04/24 [facility] DR: SPEC TYPE: Surgical [...] celiac and rule out H. pylori. Specimen: [id number] Received: 03/04/24 Status: TEJAL Sneed Num: [id number] Spec Type: Surgical Subm Dr: Spencer Valadez MD Tissues: A Duodenum - Biopsy (DUODENUM) B GASTRIC FOR HP (GASTRIC HP) C Colon Biopsy (HEPATIC FLEXURE POLYP) Procedures: HE/6, Gross/Micro L4/3, H PYLORI, IHC First AB Patient: Katy Banuelos [id number] (Continued) Specimen: [id number] Received: 03/04/24 (Continued) Signed (signature on file) Jorge Albrecht MD 03/06/24 1548 Specimen: [id number] Received: 03/04/24 Status: TEJAL Sneed Num: [id number] Spec Type: Surgical Subm Dr: Spencer Valadez MD Tissues: A Duodenum - Biopsy (DUODENUM) B GASTRIC FOR HP (GASTRIC HP) C Colon Biopsy (HEPATIC FLEXURE POLYP) Procedures: HE/6, Gross/Micro L4/3, H PYLORI, IHC First AB Patient: Katy Banuelos [id number] (Continued) Specimen: [id number] Received: 03/04/24-113 (Continued) Gross Description Received are [...] cm, entirely submitted in C1. CPT Codes 57374 X.3 34482 Specimen: [id number] Received: 03/04/24 Status: TEJAL Sneed Num: [id number] Spec Type: Surgical Subm Dr: Spencer Valadez MD Tissues: A Duodenum - Biopsy (DUODENUM) B GASTRIC FOR HP (GASTRIC HP) C Colon Biopsy (HEPATIC FLEXURE POLYP) Procedures: HE/6, Gross/Micro L4/3, H PYLORI, IHC First AB Patient: Katy Banuelos [id number] (Continued) Signed (signature on file) Carlos A-Sundeep Albrecht MD 03/06/24 [facility] Physician GroupHeart and Vascular Office/Clinic Noteon 40-20-8072Gkzqf and Vascular Office/Clinic NoteChief Complaint vascular patient here to establish care History of Present Illness Katy Mark is a 77-sl[age]dkj female presents to the office to establish [...] she underwent an echocardiogram at [facility], which yielded normal results. Additionally, she underwent [...] with voice recognition artificial intelligence software, specifically Antenova, EqsQuest and or Asthmatx. Substitutions may have occurred due to the inherent limitations of voice recognition and artificial intelligence software. ATTESTATION: Documentation services were performed after patient or guardian consented to allow [employer] to record this visit. [employer] medical insurance claims specialist and provider reviewed before signing. [employer]: Diaen Wilks Follow-up No qualifying data available Problem [...] None. Alc (more content not included)...[facility]ard HospitalComment on above:Result Comment: Electronically Signed By: Sandy DELEON, Girma Dawson\.br\Date and Time Signed: 02/18/24 10:07 EDT\.br\Electronically Co-Signed By: Diane Wilks\.br\Date and Time Co-Signed: 01/30/24 17:05 EDTCHEMISTRYOrdered By: SYSTEM SYSTEM on 35-81-6088Guvlvkc [Mass/Vol]4.3 g/dLNormal3.3 - 5.0 gm/dLRemisol Chem Albumin/Globulin [Mass ratio]2.2 {ratio}Normal1.1 - 2.2Remisol ChemALP [Catalytic activity/Vol]55 [iU]/nQuguvh42 - 98 Int._Unit/LRemisol ChemALT No additional P-5'-P [Catalytic activity/Vol]11 [iU]/dNormal6 - 46 Int._Unit/L Remisol ChemAnion gap [Moles/Vol]8 mmol/LNormal6 - 16 mEq/LRemisol ChemAST [Catalytic activity/Vol]17 [iU]/dNormal5 - 43 Int._Unit/LRemisol ChemBilirubin [Mass/Vol]0.7 mg/dLNormal0.0 - 1.1 mg/dLRemisol ChemCalcium [Mass/Vol]8.8 mg/dL Low8.9 - 11.1 mg/dLRemisol ChemChloride [Moles/Vol]105 mmol/MHxsbsi567 - 111 mmol/LRemisol ChemCholesterol [Mass/Vol]166 mg/dAHeaawj190 - 200 mg/dLRemisol ChemCholesterol in HDL [Mass/Vol]62 mg/dLInvalid Interpretation CodeRemisol Chem Comment on above:Result Comment: '>= 60 LOW RISK' '<= 40 HIGH RISK'Cholesterol in LDL [Mass/Vol]103 mg/dLNormal<=129mg/dLRemisol ChemCholesterol in VLDL [Mass/Vol]9 mg/dLNormal7 - 40 mg/dLRemisol ChemCO2 [Moles/Vol]29 mmol/BGfhazy54 - 31 mmol/LRemisol ChemCreatinine [Mass/Vol]0.7 mg/dLNormal0.5 - 1.3 mg/dLRemisol ChemCRP [Mass/Vol]mg/dLNormal<=1.9mg/dLRemisol ErtpgGLN279 mL/min/1.73 h6Csrzku>=59mL/min/1.73 o2Kagfwuh ChemGlobulin (S) [Mass/Vol]2.0 g/dLNormal1.4 - 4.0 gm/dLRemisol ChemGlucose [Mass/Vol]85 mg/dL Yxktqw02 - 199 mg/dLRemisol ChemPotassium [Moles/Vol]4.2 mmol/LNormal3.5 - 5.3 mmol/LRemisol ChemProtein [Mass/Vol]6.3 g/dLNormal6.0 - 7.8 gm/dLRemisol Chem Sodium [Moles/Vol]138 mmol/LXosimy609 - 145 mmol/LRemisol ChemTriglyceride [Mass/Vol]46 mg/dLNormal<=149mg/dLRemisol ChemUrea nitrogen [Mass/Vol]13 mg/dL Normal5 - 21 mg/dLRemisol ChemUrea nitrogen/Creatinine [Mass ratio]19 mg/mg Rbvjpm67 - 20Remisol ChemCMPon 80-81-2079Vlahgbs [Mass/Vol]4.3 g/dLNormal3.3-5.0 [facility] HospitalComment on above:Performed By: #### [id number] #### [facility] [address], [place] [address]Dzbfqwg/Globulin (S) [Mass conc ratio]2.4Wteaae3.1-2.2FKettering Health MiamisburgComment on above:Performed By: #### [id number] #### [facility] [address], [place] [address]GPB [Catalytic activity/Vol]55 Int._Unit/ZBrapmg87-40VhcgpkAultman Orrville HospitalComment on above:Performed By: #### [id number] #### [facility] [address], [place] [address]YTU No additional P-5'-P [Catalytic activity/Vol]11 Int._Unit/L Normal6-46[facility] HospitalComment on above:Performed By: #### [id number] #### [facility] [address], [place] [address]Gvaht gap [Moles/Vol]8 mmol/LNormal6-16[facility] HospitalComment on above:Performed By: #### [id number] #### [facility] [address], [place] [address]WJY [Catalytic activity/Vol]17 Int._Unit/LNormal5-43[facility] HospitalComment on above:Performed By: #### [id number] #### [facility] [address], [place] [address]Ntxhrkxpm [Mass/Vol]0.7 mg/dLNormal0.0-1.1FKettering Health MiamisburgComment on above:Performed By: #### [id number] #### [facility] [address], [place] [address]Qjflrsr [Mass/Vol]8.8 mg/dLLow8.9-11.1FKettering Health MiamisburgComment on above:Performed By: #### [id number] #### [facility] [address], [place] [address]Jqmycvlk [Moles/Vol]105 mmol/XCqwrjc599-174XvapeiAultman Orrville HospitalComment on above:Performed By: #### [id number] #### [facility] [address], [place] [address]QE0 [Moles/Vol]29 mmol/CHznqnk31-95MnfzxvAultman Orrville Hospital Comment on above:Performed By: #### [id number] #### [facility] [address], [place] [address]Yivgijyoet [Mass/Vol]0.7 mg/dLNormal0.5-1.3FKettering Health MiamisburgComment on above:Performed By: #### [id number] #### [facility] [address], [place] [address]Bhxqmtyd (S) [Mass/Vol]2.0 g/dLNormal1.4-4.0[facility] HospitalComment on above:Performed By: #### [id number] #### [facility] [address], [place] [address]Zgasdcm [Mass/Vol]85 mg/pOXadfnn50-905NphnhnAultman Orrville HospitalComment on above:Performed By: #### [id number] #### [facility] [address], [place] [address]Sfitvgljx [Moles/Vol]4.2 mmol/LNormal3.5-5.3FKettering Health MiamisburgComment on above:Performed By: #### [id number] #### [facility] [address] [place] [address]Spltykg [Mass/Vol]6.3 g/dLNormal6.0-7.8[facility] HospitalComment on above:Performed By: #### [id number] #### [facility] [address] [place] [address]Flsktx [Moles/Vol]138 mmol/VVfprna550-192BlrjysAultman Orrville HospitalComment on above:Performed By: #### [id number] #### [facility] [address] [place] [address]Uzjb nitrogen [Mass/Vol]13 mg/dLNormal5-21[facility] HospitalComment on above:Performed By: #### [id number] #### [facility] [address] [place] [address]Koio nitrogen/Creatinine [Mass ratio]19 No XpjegOpgxdi47-14 [facility] HospitalComment on above:Performed By: #### [id number] #### [facility] [address] [place] [address]CQDys 92-95-7610KFQ [Mass/Vol]mg/LNormal<=1.9[facility] HospitalComment on above:Performed By: #### [id number] #### [facility] [address] [place] [address]Wchejeh for Treatmenton 22-21-7483Mfhzysf for Treatment [id number]#1.00TIFFNormalAultman Orrville HospitalHEMATOLOGYOrdered By: Kelly Dutton on 44-66-1376VZN (Bld) [Velocity]3 mm/hNormal0 - 34 mm/[facility] HemeAutoSSLipid Panelon 63-97-8350Yrpuzcigcfg [Mass/Vol]166 mg/zGCzoaeu715-319DrhmxwAultman Orrville HospitalComment on above: Performed By: #### [id number] #### [facility] [address], [place] [address]Frbmsxfgzys in HDL [Mass/Vol]62 mg/dLInvalid Interpretation CodeAultman Orrville HospitalComment on above:Result Comment: '>= 60 LOW RISK' '<= 40 HIGH RISK'Performed By: #### [id number] #### [facility] [address], [place] [address]Guzyxdhfgfy in LDL [Mass/Vol]103 mg/dLNormal<=129[facility] HospitalComment on above:Performed By: #### [id number] #### [facility] [address], [place] [address]Pdxlkihwupj in VLDL [Mass/Vol]9 mg/dLNormal7-40[facility] HospitalComment on above:Performed By: #### [id number] #### [facility] [address], [place] [address]Ovpcijcsruin [Mass/Vol]46 mg/dLNormal<=149[facility] HospitalComment on above:Performed By: #### [id number] #### [facility] [address], [place] [address]Loz Rate Automatedon 76-68-1390EVE (Bld) [Velocity]3 mm/hNormal 0-34[facility] HospitalComment on above:Performed By: #### [id number] #### [facility] [address], [place] [address]KB Carotid Duplex Bilateralon 95-55-0815II Carotid Duplex BilateralExam Date/Time: 02/06/2024 12:20 EDT [...] Carotid Diagnostic Criteria Committee. Vascular Medicine 2020; https://journals.sagepub.com/doi/full/10.1177/8319145I745009607 Ordering Provider: Girma Delgado FINAL REPORT Dictated: 02/06/2024 4:04 pm Crystal Goncalves Signed (Electronic Signature): 02/06/2024 4:04 pm Signed by: Crystal Goncalves Transcribed by: MARKUS Technologist: MAUREEN Technical Comments Velocities Right Vert. Antegrade Yes Velocities Left Vert. Antegrade YesNormalFishSinai Hospital of BaltimoreeGFRon 30-35-4176uZBQ325 mL/min/1.73 e1Ojkqhc>=59[facility] HospitalComment on above:Order Comment: Order added by Discern Expert.Performed By: #### [id number] #### [facility] [address] [place], [place] [address]Ztekutn 29-59-0349Vkaon [id number]#1.00[facility] HospitalConsent for Treatmenton 48-29-5650Gszcahu for Treatment [id number]#1.00[facility] HospitalOutside Recordson 28-27-7771Asfclhq Records [id number]#1.00[facility] HospitalPhysician Orderon 81-45-2594Iebnbmuay Order [id number]#1.00[facility] HospitalEchocardiographyon 25-45-5920Yqmhptozcjowxtop [id number]#1.00[facility] HospitalOutside Radiologyon 72-35-2699Fifyhug Radiology [id number]#1.00[facility] HospitalReferrals Officeon 65-70-6316Usoemazka Office [id number]#1.00[facility] HospitalReferrals [id number]#1.00TIFSelect Medical Specialty Hospital - YoungstownIgA [Mass/volume] in Serum or PlasmaOrdered By: Candelario Johansen on 00-91-8996IeG [Mass/Vol]125 mg/iZ95-815Qbmxibfjk[address] [place], [place] [address]Comment on above:Performed at: [facility] Lab[address], [place] [id number] Director: Andres Arboleda PhD, Phone: [phone] Panel InformationOrdered By: Candelario Johansen on 76-57-6436Gzajekznbz IgA Antibody NegativeNegativeAshtabula General Hospitalerum gliadin peptide IgA antibody assay (units/volume)Ordered By: Candelario Johansen on 95-09-0555Uuonslz peptide IgA Qn (S)8 units0-[facility] CenterComment on above: Negative 0 - 19 Weak Positive 20 - 30 Moderate to Strong Positive >30Serum gliadin peptide IgG antibody assay (units/volume)Ordered By: Candelario Johansen on 91-31-3722Kdzybng peptide IgG Qn (S)5 units0[facility] Comment on above:Negative 0 - 19 Weak Positive 20 - 30 Moderate to Strong Positive >30Serum tissue transglutaminase (tTG) IgA antibody assay (units/volume)Ordered By: Candelario Johansen on 41-45-8037kVX IgA Qn (S)<2 U/mL0-3 [facility] CenterComment on above:Negative 0 - 3 Weak Positive 4 - 10 Positive >10 Tissue Transglutaminase (tTG) has been identified as the endomysial antigen. Studies have demonstr- ated that endomysial IgA antibodies have over 99% specificity for gluten sensitive enteropathy.Serum tissue transglutaminase (tTG) IgG antibody assay (units/volume)Ordered By: Candelario Johansen on 19-99-3605kRF IgG Qn (S)5 U/mL0-5FMercy Health Willard Hospital Comment on above:Negative 0 - 5 Weak Positive 6 - 9 Positive >9Thyrotropin [Units/volume] in Serum or PlasmaOrdered By: Candelario Johansen on 50-06-7266QFT Qn 0.60 m[IU]/L0.45-5.33[facility] CenterAFB cultureOrdered By: Marta Hernandez on 15-67-8972Ajjfypxexihzb sp identified Org specific cx Nom (Unsp spec)[facility] CenterFungal cultureOrdered By: Marta Hernandez on 39-86-4247Wxmdbo identified Cx Nom (Unsp spec)[facility] CenterFungus # 2 identified in Unspecified specimen by CultureOrdered By: Marta Hernandez on 87-67-8557Lgcigt identified # 2 Cx Nom (Unsp spec)[facility] HospitalFungus # 3 identified in Unspecified specimen by Culture Ordered By: Marta Hernandez on 38-13-0583Xbaqqc identified # 3 Cx Nom (Unsp spec) [facility] HospitalFungus # 4 identified in Unspecified specimen by CultureOrdered By: Marta Hernandez on 04-37-3964Mcrkwk identified # 4 Cx Nom (Unsp spec)[facility] HospitalGram stain for investigation of transfusion reactionOrdered By: Marta Hernandez on 09-14-2023 Microscopic observation Gram stain Nom (Unsp spec)Haemophilus influenzae [facility] CenterMicroscopic observation Gram stain Nom (Unsp spec)Haemophilus influenzaeUniversity Hospitals Lake West Medical CenterNo Panel Information Ordered By: Marta Hernandez on 63-21-4562Iiwzldqi SusceptibilityN/[facility] HospitalXR hand RT min 3V*on 73-08-4331BX hand RT min 3V* [facility] [employer] Other XR hand RT min 3V*[facility] [employer] Other XR hand RT min 3V*[address] [place] [address] [employer] Other XR hand RT min 3V*[place] [address]EljmgAstria Regional Medical Center [employer] Other XR hand RT min 3V*[facility] [employer] Other XR hand RT min 3V*[facility] [employer] Other XR hand RT min 3V*Patient: Katy Banuelos MR#: [id number] [employer] Other XR hand RT min 3V*[id number] [employer] Other XR hand RT min 3V*: 1975 Acct:[id number] [employer] Other XR hand RT min 3V*Age/Sex: 48 / F ADM Date: 09/04/23 [place] [employer] Other XR hand RT min 3V*Loc: SOX Room: Type: [facility] [employer] Other XR hand RT min 3V*Attending Dr: Prashant Mitchell [facility] HospitalT[facility] Other XR hand RT min 3V*Copies to: Prashant Mitchell, [employer] Other XR hand RT min 3V*Ordering Provider: Prashant Mitchell [employer] Other XR hand RT min 3V*Date of Service: 09/04/23[place] [employer] Other XR hand RT min 3V* XR/XR hand RT min 3V*: Right hand painBenton [employer] Other XR hand RT min 3V*XR hand RT min 3V* 09/04/2023 8:17 [facility] [employer] Other XR hand RT min 3V*SIGNS AND SYMPTOMS: Hyperextension injury to right thumbVoices [employer] Other XR hand RT min 3V*PROTOCOL: Frontal, lateral, and oblique radiographs of the right handBenton [employer] Other XR hand RT min 3V*COMPARISON: [facility] [employer] Other XR hand RT min 3V*FINDINGS:[employer] Other XR hand RT min 3V*The bones are in anatomic alignment. The joint spaces are preserved. There is no evidence ofFundation Other XR hand RT min 3V*fracture or dislocation. No significant soft tissue swelling.[employer] Other XR hand RT min 3V* XR/XR hand RT min 3V*[employer] Other XR hand RT min 3V*IMPRESSION:[employer] Other XR hand RT min 3V*No acute bony injury.[employer] Other XR hand RT min 3V*No significant soft tissue swelling. [employer] Other XR hand RT min 3V*Impression dictated by: Jermain Sultana M.D.09/04/2023 10:15 AMNphelps health [employer] Other XR hand RT min 3V*Dictation Location: [id number] [employer] Other XR hand RT min 3V*Transcribed By: [facility] 09/04/23 1015 [employer] Other XR hand RT min 3V*Dictated By: Jermain Sultana II, MD 09/04/[address] [place] [address] [employer] Other XR hand RT min 3V*Signed By:[employer] Other XR hand RT min 3V*09/04/23 [facility] HospitalFund[facility] Other Plan of Care - PT/OT/Speechon 75-65-7375Uvdr of Care - PT/OT/[id number]#1.00TIFFNormalAultman Orrville HospitalAlanine aminotransferase [Enzymatic activity/volume] in Serum or PlasmaOrdered By: Fernanda Concepcion on 35-36-0694ZCK [Catalytic activity/Vol]18 U/L 7-52[facility] CenterAlbumin [Mass/volume] in Serum or Plasma by Bromocresol green (BCG) dye binding methoOrdered By: Fernanda Concepcion on 05-25-2023 Albumin BCG dye [Mass/Vol]4.7 g/dL3.5-5.7FMercy Health Willard Hospital Alkaline phosphatase [Enzymatic activity/volume] in Serum or PlasmaOrdered By: Fernanda Concepcion on 11-66-9081RNM [Catalytic activity/Vol]51 U/E29-939QaeylkmyhUniversity Hospitals Lake West Medical CenterAspartate aminotransferase [Enzymatic activity/volume] in Serum or PlasmaOrdered By: Fernanda Concepcion on 24-88-1848VDA [Catalytic activity/Vol]20 U/C50-77XkdomdiamUniversity Hospitals Lake West Medical CenterBasophils Auto (Bld) [#/Vol]Ordered By: Fernanda Concepcion on 38-85-9072Hjvwvnnsa (Bld) [#/Vol]0.1 10*3/uL 0.0-0.2FMercy Health Willard HospitalBasophils/100 WBC Auto (Bld)Ordered By: Fernanda Concepcion on 13-55-8235Jsfhybjhg/100 WBC (Bld)1.1 %.[facility] Medical CenterBilirubin.total [Mass/volume] in Serum or PlasmaOrdered By: Fernanda Concepcion on 63-90-3295Tnrcilyzl [Mass/Vol]0.5 mg/dL0.3-1.0[facility] Medical CenterCalcium [Mass/volume] in Serum or PlasmaOrdered By: Fernanda Concepcion on 94-69-3714Kozlely [Mass/Vol]9.3 mg/dL8.6-10.3FMercy Health Willard HospitalCarbon dioxide, total [Moles/volume] in Serum or PlasmaOrdered By: Fernanda Concepcion on 16-51-5382YG0 [Moles/Vol]31.4 mmol/L21.0-31.0[facility] Medical CenterChloride [Moles/volume] in Serum or PlasmaOrdered By: Fernanda Concepcion on 92-38-1527Kmnfzypt [Moles/Vol]103 mmol/P98-556ZwmfysjagUniversity Hospitals Lake West Medical Center Creatinine [Mass/volume] in Serum or PlasmaOrdered By: Fernanda Concepcion on 95-88-0389Ggevqtmuep [Mass/Vol]0.70 mg/dL0.60-1.20[facility] Medical CenterEosinophils Auto (Bld) [#/Vol]Ordered By: Fernanda Concepcion on 05-25-2023 Eosinophils (Bld) [#/Vol]0.1 10*3/uL0.0-0.45[facility] Eosinophils/100 WBC Auto (Bld)Ordered By: Fernanda Concepcion on 05-25-2023 Eosinophils/100 WBC (Bld)0.7 %.[facility] Medical CenterErythrocyte distribution width Auto (RBC) [Ratio]Ordered By: Fernanda Concepcion on 05-25-2023 Erythrocyte distribution width (RBC) [Ratio]13.3 %11.9-15.3FMercy Health Willard HospitalGlobulin Calc (S) [Mass/Vol]Ordered By: Fernanda Concepcion on 05-25-2023 Globulin (S) [Mass/Vol]1.7 g/dLUniversity Hospitals Lake West Medical CenterGlucose [Mass/volume] in Serum or PlasmaOrdered By: Fernanda Concepcion on 80-87-8758Zufocfz [Mass/Vol]104 mg/gW94-713QkrjpzjisUniversity Hospitals Lake West Medical CenterComment on above:ADA recommended reference rangeRandom Glucose Reference Range is dependent on time and content of last meal. Glucose of more than 200 mg/dL in a nonstressed, ambulatory subject supports the diagnosisof Diabetes Mellitus.Hematocrit Auto (Bld) [Volume fraction]Ordered By: Fernanda Concepcion on 51-46-9562Gkkvqdojvu (Bld) [Volume fraction]39.3 %34.0-46.4FMercy Health Willard HospitalHemoglobin [Mass/volume] in BloodOrdered By: Fernanda Concepcion on 33-89-8463Zbvushpotr (Bld) [Mass/Vol]13.5 g/dL11.8-15.4FMercy Health Willard HospitalLeukocytes [#/volume] corrected for nucleated erythrocytes in Blood by Automated coun Ordered By: Fernanda Concepcion on 22-07-8560ZFW corrected for nucl RBC Auto (Bld) [#/Vol]8.2 10*3/uL3.8-11.6FMercy Health Willard HospitalLymphocytes Auto (Bld) [#/Vol]Ordered By: Fernanda Concepcion on 97-58-7319Dgjuzyzxsmq (Bld) [#/Vol]1.7 10*3/uL1.00-4.8[facility] CenterLymphocytes/100 WBC Auto (Bld) Ordered By: Fernanda Concepcion on 82-22-3770Rzdjnqtcslz/100 WBC (Bld)20.5 %.[facility] Medical CenterMCH Auto (RBC) [Entitic mass]Ordered By: Fernanda Concepcion on 22-24-7738JJU (RBC) [Entitic mass]35.3 pg24.7-34.3FMercy Health Willard HospitalMCHC Auto (RBC) [Mass/Vol]Ordered By: Fernanda Concepcion on 42-28-2610ZWCH (RBC) [Mass/Vol]34.4 g/dL32.0-35.0[facility] CenterMCV Auto (RBC) [Entitic vol]Ordered By: Fernanda Concepcion on 58-95-3318LGM (RBC) [Entitic vol]102.7 wE26-219HplrubwqnUniversity Hospitals Lake West Medical CenterMonocytes Auto (Bld) [#/Vol]Ordered By: Fernanda Concepcion on 47-96-4581Bfpddjlek (Bld) [#/Vol]0.4 10*3/uL0.0-0.8[facility] Medical CenterMonocytes/100 WBC Auto (Bld)Ordered By: Fernanda Concepcion on 67-49-9952Ksncrwyhp/100 WBC (Bld)4.8 %.[facility] Neutrophils Auto (Bld) [#/Vol]Ordered By: Fernanda Concepcion on 06-18-8830Kuuocgpnddd (Bld) [#/Vol]6.0 10*3/uL1.8-7.7FMercy Health Willard HospitalNeutrophils/100 WBC Auto (Bld)Ordered By: Fernanda Concpecion on 94-13-7766Pouwpxmrgen/100 WBC (Bld) 72.9 %.[facility] CenterNo Panel InformationOrdered By: Fernanda Concepcion on 42-52-1553Jnkdxnwkj GFR (CKD-EPI)> 60.0 mL/MinUniversity Hospitals Lake West Medical CenterPharmacy Creatinine Clearance (ChemN/[facility] HospitalNucleated erythrocytes [Presence] in Blood by Automated countOrdered By: Fernanda Concepcion on 88-24-3027Nfcvheocx RBC Auto Ql (Bld)0.0 /100{WBC}0-0.5FMercy Health Willard HospitalPlatelet mean volume Auto (Bld) [Entitic vol]Ordered By: Fernanda Concepcion on 78-01-6945Mlffiwkm mean volume (Bld) [Entitic vol]7.8 fL6.3-10.7 [facility] Medical CenterPlatelets Auto (Bld) [#/Vol]Ordered By: Fernanda Concepcion on 29-87-1307Tnmmsyzdu (Bld) [#/Vol]244 10*3/xP567-794EttcarvnfUniversity Hospitals Lake West Medical CenterPotassium [Moles/volume] in Serum or PlasmaOrdered By: Fernanda Concepcion on 36-04-1737Yhzxmanik [Moles/Vol]3.6 mmol/L3.5-5.1FMercy Health Willard HospitalProtein [Mass/volume] in Serum or PlasmaOrdered By: Fernanda Concepcion on 99-40-4298Hepdtap [Mass/Vol]6.4 g/dL6.4-8.9[facility] RBC Auto (Bld) [#/Vol]Ordered By: Fernanda Concepcion on 52-86-7436WMO (Bld) [#/Vol] 3.83 10*6/uL3.60-5.00[facility] Hospitalerum or plasma albumin/globulin mass ratioOrdered By: Fernanda Concepcion on 05-25-2023 Albumin/Globulin [Mass ratio]2.8 {ratio}[facility] Hospitalerum or plasma anion gap determinationOrdered By: Fernanda Concepcion on 26-33-2359Lifvk gap [Moles/Vol]8.2 mmol/L6.0-15.0[facility] General Hospitalodium [Moles/volume] in Serum or PlasmaOrdered By: Fernanda Concepcion on 51-72-9442Ngwpib [Moles/Vol]139 mmol/H982-070HmpxleticUniversity Hospitals Lake West Medical CenterThyrotropin [Units/volume] in Serum or PlasmaOrdered By: Fernanda oCncepcion on 08-26-6728LLI Qn 0.35 m[IU]/L0.45-5.33[facility] Medical CenterUrea nitrogen [Mass/volume] in Serum or PlasmaOrdered By: Fernanda Concepcion on 22-08-2099Yfmu nitrogen [Mass/Vol]10 mg/dL7-25[facility] Medical CenterWBC Auto (Bld) [#/Vol]Ordered By: Fernanda Concepcion on 87-14-6099DSD (Bld) [#/Vol]8.2 10*3/uL 3.8-11.6FMercy Health Willard HospitalAmbulatory Visit Summaryon 05-16-2023 Ambulatory Visit Summary KATY BANUELOS :1975 Visit Date:05/16/2023 Ambulatory Visit Instructions Your Diagnosis Mixed incontinence Smoker Tests Performed Urnls Dip Stick Auto w/o Microscopy POC 84952 Your Care Team Attending Physician - GIANNA [...] GIANNA KAPLAN PA-C Where: [facility] Interpretation [id number] [place] [address]- \.br\ Sunday 9:30 AM EDT \.br\ With: GIANNA KAPLAN PA-C\.br\ Where: [facility] HospitalPatient Educationon 36-96-5341Evymqqn EducationObstetrics and Gynecology Kegel Exercises Kegel exercises [...] provider. Document Revised: 01/12/2022 Document Reviewed: 01/12/2022 [employer] Patient Education ? 2022 [employer] Pulmonary Medicine Steps to Quit Smoking [...] short sessi (more content not included)...[facility] Urology Office/Clinic Noteon 63-82-5467Flfzykp Office/Clinic NoteChief Complaint #3 PFPT HPI Staff [...] it about 5-7 seconds. When I would literacy coach her to not use the lower abs, she was unable to contract only the pelvic floor. Says it hurts when she does that. Ordered: 09261 EMG anal/urethral sphincter no needle 97696 Biofeedback training, perineal muscles, anorectal 57892 Anorectal Manometry 92408 ELECTRICAL STIMULATION 18978 Urnls Dip Stick Auto w/o Microscopy POC 23439 2. Pelvic pain (R10.2: Pelvic and perineal pain) Pt requested rx for Ibuprofen 800mg as she has been taking 4 ibuprofen 200mg's at a time to help w pelvic pain. [facility]. Discussed the medication [...] milk, # 30 tab(s), Refills(s) 3, Pharmacy: [facility]/pharmacy #[id number], 168, cm, 05/16/23 [...] going to reach out to [facility] PFPT and see if they would feel comfortable seeing this pt/have other approach. Will stop the Detrol for now so we have more of a 'clean slate'. Hoping if we can get the constipation under control and the pelvic floor strengthened then the pain and urinary sx will improve. F/u pending discussion w [facility] PFPT. Follow-up With When Contact Information EJ ELLIS, GIANNA Jimenez, URL [address] [place] [place] [address] [phone] Patient Education Steps to Quit Smoking Kegel [...] retention P (more content not included)...[facility] HospitalComment on above:Result Comment: Electronically Signed By: GIANNA KAPLAN PA-C\.br\Date and Time Signed: 05/16/2311:34 EDT\.br\Electronically Co-Signed By: Shy Lara\.br\Date and Time Co-Signed: 05/16/23 10:27 EDTPatient Educationon 05-09-2023 Patient EducationMercy Health Willard HospitalEMG Electromyographyon 17-17-4205UDE Electromyography [id number]#1.00CD:127[facility] HospitalAmbulatory Visit Summaryon 40-26-8723Vqzuwyxmrb Visit Summary KATY BANUELOS :1975 Visit Date:05/02/2023 Ambulatory Visit Instructions Your Diagnosis Mixed incontinence Smoker Tests Performed Urnls Dip Stick Auto w/o Microscopy POC 31893 Your Care Team Attending Physician - GIANNA [...] With: GIANNA KAPLAN PA-C Where: [facility] Interpretation [id number] [place] [address]- \.br\ Sunday 9:30 AM EDT \.br\ With: GIANNA KAPLAN PA-C\.br\ Where: [facility] HospitalPatient Educationon 71-29-9192Kdskiwb EducationObstetrics and Gynecology Kegel Exercises Kegel exercises [...] provider. Document Revised: 01/12/2022 Document Reviewed: 01/12/2022 [employer] Patient Education ? 2022 [employer]. Urology Urinary Incontinence Urinary incontinence refers to [...] your kidney and bladder (more content not included)...NormalA[facility] HospitalUrology Office/Clinic Noteon 34-87-7140Oytnzcc Office/Clinic NoteChief Complaint #2 PFPT HPI Staff [...] Contact Information EJ ELLIS, GIANNA Jimenez, URL [address] [place] [address] [phone] Additional Instructions: PFPT #3 on 05/09/23 Patient [...] (05/02/23 10:46:00) (more content not included)...[facility] HospitalComment on above:Result Comment: Electronically Signed By: GIANNA KAPLAN PA-C\.br\Date and Time Signed: 05/02/2311:20 EDT\.br\Electronically Co-Signed By: Shy Lara\.br\Date and Time Co-Signed: 05/02/23 11:10 EDTConsent for Procedure/Surgeryon 04-26-2023 Consent for Procedure/[id number]#1.00CD:127 [facility] HospitalEMG Electromyographyon 49-06-2394GWM [id number]#1.00CD:127NormOur Lady of Mercy HospitalAmbulatory Visit Summaryon 70-06-1458Zexslcjhml Visit Summary KATY BANUELOS :1975 Visit Date:04/25/2023 Ambulatory Visit Instructions Your Diagnosis Mixed incontinence Smoker Tests Performed Urnls Dip Stick Auto w/o Microscopy POC 48953 Your Care Team Attending Physician - GIANNA [...] GIANNA KAPLAN PA-C [facility] [id number] [place] [address]- \.br\ Sunday 9:30 AM EDT \.br\ With: GIANNA KAPLAN PA-C\.br\ Where: [facility] Educationon 03-47-0623Pdiuyae EducationUrology Pelvic Floor Dysfunction, Female Pelvic floor [...] pelvic muscle tension or spasms. ? Take ohkj-lui-vouargc and prescription medicines only as told by [...] days (constipa (more content not included)...[facility] HospitalUrology Office/Clinic Noteon 36-73-2115Brkclht Office/Clinic NoteChief Complaint #1 PFPT HPI Staff [...] Contact Information EJ ELLIS, GIANNA Jimenez, URL [address] [place] [address] [phone] Additional Instructions: PFPT #2 on 05/02/23 Patient [...] Specific Grav (more content not included)...[facility] Comment on above:Result Comment: Electronically Signed By: GIANNA KAPLAN PA-C\.br\Date and Time Signed: 04/25/2310:25 EDT\.br\Electronically Co-Signed By: Shy Lara\Date and Time Co-Signed: 04/25/23 10:22 EDTVIT D 1 25 DIHYDROXYon 79-39-4934Iducasifxg(1,25 di-[place] Vit D)55.9 pg/uBEkvjgc48.8-81.5The [facility] Hospital DaytonComment on above:Performed By: #### [id number] #### [facility] [address] [place] [address] Dr. Barbra Vallejo 44-53-2212JAD0.7 mIU/mLNormalThe Access Hospital DaytonComment on above:Result Comment: Adult Female: Follicular phase 3.5 - 12.5 Ovulation phase 4.7 - 21.5 Luteal phase 1.7 - 7.7 Postmenopausal 25.8 - 134.8Performed By: #### LBCFSH #### [facility] [address] [place] [address] Dr. Barbra AlbrechtLUTEINIZING HORMONE (LH)on 50-83-0018KK4.6 mIU/mLNormalThe Access Hospital DaytonComment on above:Result Comment: Adult Female: Follicular phase 2.4 - 12.6 Ovulation phase 14.0 - 95.6 Luteal phase 1.0 - 11.4 Postmenopausal 7.7 - 58.5Performed By: #### FERR, FETIBC, VITB12 #### [facility] [address] [place] [address] Dr. Barbra Kan AUTO DIFFon 47-70-1647RLQA #0.1 103/ulNormal0.0-0.1The [facility] Hospital DaytonComment on above:Performed By: #### FERR, FETIBC, VITB12 #### [facility] [address] [place] [address] Dr. Barbra AlbrechtBasophils/100 WBC (Bld)0.5 %Normal0.2-2.0[facility] Comment on above:Performed By: #### FERR, FETIBC, VITB12 #### [facility] [address] [place] [address] Dr. Barbra Zeng #0.0 103/ulNormal0.0-0.7The [facility] Hospital DaytonComment on above: Performed By: #### FERR, FETIBC, VITB12 #### [facility] [address] [place] [address] Dr. Barbra Tohmasosinophils/100 WBC (Bld)0.4 %Critically low0.9-7.0The [facility] Hospitalment on above:Performed By: #### FERR, FETIBC, VITB12 #### [facility] [address] [place] [address] Dr. Barbra Thomasrythrocyte distribution width (RBC) [Ratio]12.2 %Zpgbxa49.0-15.0 The [facility] DaytonComment on above:Performed By: #### FERR, FETIBC, VITB12 #### [facility] [address] [place] [address] Dr. Barbra AlbrechtHematocrit (Bld) [Volume fraction]39.2 %Enjshb55.0-48.0The [facility] DaytonComment on above:Performed By: #### FERR, FETIBC, VITB12 #### [facility] [address] [place] [address] Dr. Barbra AlbrechtHemoglobin (Bld) [Mass/Vol]13.5 g/hKDpdehc36.0-16.0The [facility] Hospitalment on above:Performed By: #### FERR, FETIBC, VITB12 #### [facility] [address] [place] [address] Dr. Barbra Hutchinson #0.05 10e3/ulCritically high0.00-0.03[facility] Comment on above:Performed By: #### FERR, FETIBC, VITB12 #### [facility] [address] [place] [address] Dr. Barbra Hutchinson %0.5 %Normal0.0-0.5The [facility] Hospitalment on above: Performed By: #### FERR, FETIBC, VITB12 #### [facility] [address] [place] [address] Dr. Barbra Wade #1.4 103/ulNormal1.2-3.8The [facility] DaytonComment on above:Performed By: #### FERR, FETIBC, VITB12 #### [facility] [address] [place] [address] Dr. Barbra Lopezmphocytes/100 WBC (Bld)15.1 %Critically low20.5-60.0The [facility] DaytonComment on above:Performed By: #### FERR, FETIBC, VITB12 #### [facility] [address] [place] [address] Dr. Barbra Guerrero DIFF REQNONormalThe [facility] Hospital DaytonComment on above: Performed By: #### FERR, FETIBC, VITB12 #### [facility] [address] [place] [address] Dr. Barbra Dietrich (RBC) [Entitic mass]34.5 pgCritically high26.7-34.0The [facility] DaytonComment on above:Performed By: #### FERR, FETIBC, VITB12 #### [facility] [address] [place] [address] Dr. Barbra Dietrich (RBC) [Mass/Vol]34.4 g/aCObuaru78.9-35.2The [facility] Hospital DaytonComment on above:Performed By: #### FERR, FETIBC, VITB12 #### [facility] [address] [place] [address] Dr. Barbra Dietrich (RBC) [Entitic vol]100.3 fLCritically high81.0-99.0The [facility] DaytonComment on above:Performed By: #### FERR, FETIBC, VITB12 #### [facility] [address] [place] [address] Dr. Barbra Rose #0.4 103/ulNormal0.3-0.8The [facility] DaytonComment on above:Performed By: #### FERR, FETIBC, VITB12 #### [facility] [address] [place] [address] Dr. Barbra Landrumocytes/100 WBC (Bld)4.7 %Normal1.7-12.0[facility] Comment on above:Performed By: #### FERR, FETIBC, VITB12 #### [facility] [address] [place] [address] Dr. Barbra Barr #7.4 103/ulCritically high1.4-6.5[facility] Comment on above:Performed By: #### FERR, FETIBC, VITB12 #### [facility] [address] [place] [address] Dr. Barbra Murphyutrophils/100 WBC (Bld)78.8 %Critically high43.0-75.0The [facility] Hospital DaytonComment on above:Performed By: #### FERR, FETIBC, VITB12 #### [facility] [address] [place] [address] Dr. Barbra Martinezlet mean volume (Bld) [Entitic vol]9.1 fLCritically low 9.5-13.5The [facility] DaytonComment on above:Performed By: #### FERR, FETIBC, VITB12 #### [facility] [address] [place] [address] Dr. Barbra AlbrechtPLT256 103/ovNnhdys417-489Dbh [facility] Hospital DaytonComment on above: Performed By: #### FERR, FETIBC, VITB12 #### [facility] [address] [place] [address] Dr. Barbra AlbrechtRBC3.91 106/ulCritically low4.20-5.40The [facility] Hospital DaytonComment on above:Performed By: #### FERR, FETIBC, VITB12 #### [facility] [address] [place] [address] Dr. Barbra AlbrechtWBC9.4 103/ulNormal4.0-11.0The [facility] Hospital DaytonComment on above: Performed By: #### FERR, FETIBC, VITB12 #### [facility] [address] [place] [address] Dr. Barbra AlbrechtFERRITINon 00-52-8311Ahlknzsg [Mass/Vol]58.0 ng/mLNormal6.2-137.0 The [facility] DaytonComment on above:Performed By: #### FERR, FETIBC, VITB12 #### [facility] [address] [place] [address] Dr. Barbra Osorio AND TIBCon 12-21-2022% BYXRJZITDB74.5 %NormalThe Access Hospital DaytonComment on above:Performed By: #### FERR, FETIBC, VITB12 #### [facility] [address] [place] [address] Dr. Barbra Osorio [Mass/Vol]134.0 ug/cDEcvpbs02.0-170.0[facility] Comment on above:Performed By: #### FERR, FETIBC, VITB12 #### [facility] [address] [place] [address] Dr. Barbra AlbrechtTIBC YINTJJ446.0 ug/uXIdiudg083.0-450.0[facility] Comment on above:Performed By: #### FERR, FETIBC, VITB12 #### [facility] [address] [place] [address] Dr. Barbra AlbrechtVITAMIN B12on 74-06-9238Hvfmrllbx (Vitamin B12) [Mass/Vol]799.0 pg/mEVooehd756.0-986.0The [facility] DaytonComment on above:Performed By: #### FERR, FETIBC, VITB12 #### [facility] [address] [place] [address] Dr. Barbra AlbrechtXR FOOT LEANDRO MIN 3 VIEWSon 04-05-7703SR FOOT LEANDRO MIN 3 VIEWS EXAMINATION: XR [...] Electronically authenticated by: VIKRAM OSUNA Date: 2022-12-14 15:38[facility]aw[facility] HospitalXR ANKLE RT MIN 3 VIEWSon 63-72-3220OR ANKLE RT MIN 3 VIEWS EXAM: XR [...] right ankle series. Electronically authenticated by: GIGI WOOSD Date: 2022-11-06 13:26[facility] HospitalXR FOOT RT MIN 3 VIEWSon 51-02-2931PE FOOT RT MIN 3 VIEWSEXAM: XR FOOT [...] Electronically authenticated by: BOLA MARROQUIN Date: 2022-11-06 12:20[facility] HospitalCPKon 46-56-2152WP [Catalytic activity/Vol]143 U/EFseqwp75-260 The [facility] DaytonComment on above:Performed By: #### FERR, FETIBC, VITB12 #### [facility] [address] [place] [address] Dr. Barbra Christensen RATE WESTERGRENon 05-89-1529OEQ RATE<1Normal<=20The [facility] Hospital DaytonComment on above:Performed By: #### FERR, FETIBC, VITB12 #### [facility] [address] [address] [address] Barbra Artis 48-62-3047SHN9.719 uIU/mLNormal0.358-3.740The [facility] DaytonComhillsdale hospital on above:Performed By: #### FERR, FETIBC, VITB12 #### [facility] [address] [place] [address] Dr. Barbra Chow B12 AND FOLATEon 40-30-9521Mjlmaedqf (Vitamin B12) [Mass/Vol] 1283.0 pg/mLCritically qjjk837.0-986.0The [facility] DaytonComment on above: Performed By: #### B12FOL #### [facility] [address] [place], [place] [address] Dr. Barbra AlbrechtFOLATE26.80 ng/mLNormal8.60-58.90The [facility] DaytonComment on above:Performed By: #### B12FOL #### [facility] [address] [place], [place] [address] Dr. Barbra AlbrechtXR CHEST 2 Von 17-81-4654IY CHEST 2 VEXAM: XR CHEST 2 V [...] Electronically authenticated by: GIGI SARMIENTO Date: 2022-09-28 14:48[facility] HospitalBasophils Auto (Bld) [#/Vol]Ordered By: Kye Apodaca on 74-00-0175Ldrqwpogx (Bld) [#/Vol]0.1 10*3/uL0.0-0.2FMercy Health Willard HospitalBasophils/100 WBC Auto (Bld)Ordered By: Kye Apodaca on 09-13-2022 Basophils/100 WBC (Bld)0.9 %.[facility] CenterCT biopsyOrdered By: Kye Apodaca on 44-98-3385Yawkbavxvtd [Mass/Vol]209 mg/bV356-714ClkdlsnnxUniversity Hospitals Lake West Medical CenterEosinophils Auto (Bld) [#/Vol]Ordered By: Kye Apodaca on 96-79-8867Rmemndifxvq (Bld) [#/Vol]0.0 10*3/uL0.0-0.45[facility] CenterEosinophils/100 WBC Auto (Bld)Ordered By: Kye Apodaca on 09-13-2022 Eosinophils/100 WBC (Bld)0.5 %.[facility] CenterErythrocyte distribution width Auto (RBC) [Ratio]Ordered By: Kye Apodaca on 09-13-2022 Erythrocyte distribution width (RBC) [Ratio]14.8 %11.9-15.3FMercy Health Willard HospitalFerritin [Mass/volume] in Serum or PlasmaOrdered By: Kye Apodaca on 31-37-1562Vulphdmw [Mass/Vol]62.9 ng/pI19-543.8[facility] Medical CenterHematocrit Auto (Bld) [Volume fraction]Ordered By: Kye Apodaca on 03-67-3223Jtwlzhclav (Bld) [Volume fraction]38.9 %34.0-46.4FMercy Health Willard HospitalHemoglobin [Mass/volume] in BloodOrdered By: Kye Apodaca on 77-19-2773Kkuxzqukzt (Bld) [Mass/Vol]13.4 g/dL11.8-15.4FMercy Health Willard HospitalIron [Mass/volume] in Serum or PlasmaOrdered By: Kye Apodaca on 60-19-1949Hxfq [Mass/Vol]70 ug/aJ08-280LpfehsijvUniversity Hospitals Lake West Medical CenterIron binding capacity [Mass/volume] in Serum or PlasmaOrdered By: Kye Apodaca on 26-29-5981Jgbd binding capacity [Mass/Vol]293 ug/cJ856-923GizujgiqoUniversity Hospitals Lake West Medical CenterIron saturation [Mass Fraction] in Serum or PlasmaOrdered By: Kye Apodaca on 71-12-6030Mlkd saturation [Mass fraction]23.0 %20-50[facility] Medical CenterLeukocytes [#/volume] corrected for nucleated erythrocytes in Blood by Automated counOrdered By: Kye Apodaca on 23-57-7791VWA corrected for nucl RBC Auto (Bld) [#/Vol]8.6 10*3/uL3.8-11.6FMercy Health Willard HospitalLymphocytes Auto (Bld) [#/Vol]Ordered By: Kye Apodaca on 38-87-7346Eshpddvsbfl (Bld) [#/Vol]1.4 10*3/uL1.00-4.8[facility] Medical CenterLymphocytes/100 WBC Auto (Bld)Ordered By: Kye Apodaca on 09-13-2022 Lymphocytes/100 WBC (Bld)16.3 %.[facility] Medical CenterMCH Auto (RBC) [Entitic mass]Ordered By: Kye Apodaca on 73-39-2976[place] (RBC) [Entitic mass]34.1 pg24.7-34.3FMercy Health Willard HospitalMCHC Auto (RBC) [Mass/Vol]Ordered By: Kye Apodaca on 57-49-0640OYOW (RBC) [Mass/Vol]34.5 g/dL32.0-35.0[facility] Medical CenterMCV Auto (RBC) [Entitic vol]Ordered By: Kye Apodaca on 24-00-7817EME (RBC) [Entitic vol]98.9 zX19-780BnobbcoyvUniversity Hospitals Lake West Medical Center Monocytes Auto (Bld) [#/Vol]Ordered By: Kye Apodaca on 49-67-2337Wygokqxhp (Bld) [#/Vol]0.4 10*3/uL0.0-0.8[facility] Medical CenterMonocytes/100 WBC Auto (Bld)Ordered By: Kye Apodaca on 42-36-1526Vtzzaopdo/100 WBC (Bld)5.0 %. [facility] Medical CenterNeutrophils Auto (Bld) [#/Vol]Ordered By: Kye Apodaca on 71-92-8997Rxmgbhnjdht (Bld) [#/Vol]6.6 10*3/uL1.8-7.7FMercy Health Willard HospitalNeutrophils/100 WBC Auto (Bld)Ordered By: Kye Apodaca on 50-78-4180Pvffgsaiuyj/100 WBC (Bld)77.3 %.[facility] Nucleated erythrocytes [Presence] in Blood by Automated countOrdered By: Kye Apodaca on 37-75-3594Dbjsaiish RBC Auto Ql (Bld)0.1 /100{WBC}0-0.5FMercy Health Willard HospitalPlatelet mean volume Auto (Bld) [Entitic vol]Ordered By: Kye Apodaca on 84-66-9072Vzscbfgi mean volume (Bld) [Entitic vol]7.8 fL6.3-10.7 [facility] Medical CenterPlatelets Auto (Bld) [#/Vol]Ordered By: Kye Sequeiraharvey on 96-51-7573Pbhrvjvqk (Bld) [#/Vol]309 10*3/wD062-364PyreexpgvUniversity Hospitals Lake West Medical CenterRBC Auto (Bld) [#/Vol]Ordered By: Kye Apodaca on 65-08-2901GRO (Bld) [#/Vol]3.93 10*6/uL3.60-5.00[facility] Medical CenterWBC Auto (Bld) [#/Vol]Ordered By: Kye Sequeirahavrey on 91-44-0040VOI (Bld) [#/Vol]8.6 10*3/uL 3.8-11.6FMercy Health Willard HospitalCovid-19 PCR (CVDTB)on 07-27-2022 SARS-CoV-2 (COVID-19) RNA CATRACHITO+probe Ql (Unsp spec)Not detectedNormalNOT DETECTED The [facility] DaytonComment on above:Result Comment: This test is not yet approved or cleared by the [place] FDA. When there are no FDA-approved or cleared tests available, and other criteria are met, FDA can make tests available under an emergency access mechanism called an Emergency Use Authorization (EUA). The EUA for this test is supported by the Receiving Distribution Station Operator of Health and Human Service's (HHS's) declaration [...] consistent with SARS-CoV-2.Performed By: #### CVDTBH #### [facility] [address] [place] [address] Dr. Barbra WEAVER AGon 09-46-5155XILDDTHMGBYJSCleveland Clinic Union Hospital on above:Result Comment: Negative for Flu A protein angiten. Infection due to Flu A cannot be ruled out. FluA angiten in the sample may be below the detection limit of the test.Performed By: #### FERR, FETIBC, VITB12 #### [facility] [address] [place] [address] Dr. Barbra LanzaHSMetroHealth Cleveland Heights Medical CenterComment on above: Result Comment: Negative for Flu B protein antigen. Infection due to Flu B cannot be ruled out. FluB antigen in the sample may be below the detection limit of the test.Performed By: #### FERR, FETIBC, VITB12 #### [facility] [address] [place] [address] Dr. Barbra Wilson AGNegativeNormalNEGATIVE SEE COMMENTThe Access Hospital DaytonComment on above:Performed By: #### FERR, FETIBC, VITB12 #### [facility] [address] [place] [address] Dr. Barbra Ambrose AGNegativeNormalNEGATIVE SEE COMMENTThe [facility] Hospital DaytonComment on above:Performed By: #### FERR, FETIBC, VITB12 #### [facility] [address] [place] [address] Dr. Barbra AlbrechtINTERNAL CONTROLSWithin Normal LimitsNormalWithin Normal Limits The [facility] DaytonComment on above:Performed By: #### FERR, FETIBC, VITB12 #### [facility] [address] [place] [address] Dr. Barbra AlbrechtIgKatie [Mass/volume] in Serum or PlasmaOrdered By: Kye Apodaca on 58-33-1505FhM [Mass/Vol]127 mg/xE10-266NdsbkywufUniversity Hospitals Lake West Medical CenterComment on above:Performed at: [facility] [id number] Director: Andres Arboleda PhD, Phone: [phone] Panel InformationOrdered By: Kye Apodaca on 50-53-1297Menxmsnnnh IgA AntibodyNegative NegativeAshtabula General Hospitalerum gliadin peptide IgA antibody assay (units/volume)Ordered By: Kye Apodaca on 39-79-7070Rsgmsif peptide IgA Qn (S)5 units0-19[facility] Medical CenterComment on above:Negative 0 - 19 Weak Positive 20 - 30 Moderate to Strong Positive >30Serum gliadin peptide IgG antibody assay (units/volume)Ordered By: Kye Apodaca on 36-43-1413Oylqipp peptide IgG Qn (S)3 units0-19[facility] Medical CenterComment on above: Negative 0 - 19 Weak Positive 20 - 30 Moderate to Strong Positive >30Serum tissue transglutaminase (tTG) IgA antibody assay (units/volume)Ordered By: Kye Apodaca on 47-02-3998mKH IgA Qn (S)<2 U/mL0-3FMercy Health Willard Hospital Comment on above:Negative 0 - 3 Weak Positive 4 - 10 Positive >10 Tissue Transglutaminase (tTG) has been identified as the endomysial antigen. Studies have demonstr- ated that endomysial IgA antibodies have over 99% specificity for gluten sensitive enteropathy.Serum tissue transglutaminase (tTG) IgG antibody assay (units/volume)Ordered By: Kye Apodaca on 02-34-0729vZT IgG Qn (S)<2 U/mL 0-5FMercy Health Willard HospitalComment on above:Negative 0 - 5 Weak Positive 6 - 9 Positive >9XR Chest 2 Views*on 71-81-0104YA Chest 2 Views* CLINICAL HISTORY: Cough, phlegm COMPARISON: FINDINGS: The cardiomediastinal silhouette is unremarkable. The lungs are free of infiltrates effusions or consolidations. The bones and soft tissues are within normal limits. IMPRESSION: There are no acute cardiopulmonary changes Report reported and signed by ADAM ALCANTARA on 06/13/2022 1556NormalNorthern Pennsylvania Medical SpecialistCBC AUTO DIFFon 26-02-8226SFZD #0.1 103/ulNormal0.0-0.1 The [facility] DaytonComment on above:Performed By: #### CBC #### [facility] [address] [address] [address] Barbra AlbrechtBasophils/100 WBC (Bld)0.6 %Normal0.2-2.0[facility] Comment on above:Performed By: #### CBC #### [facility] [address] [place] [address] Dr. Barbra Zeng #0.1 103/ulNormal0.0-0.7The [facility] DaytonComment on above: Performed By: #### CBC #### [facility] [address] [place] [address] Dr. Barbra Thomasosinophils/100 WBC (Bld)1.1 %Normal0.9-7.0[facility] Comment on above:Performed By: #### CBC #### [facility] [address] [place] [address] Dr. Barbra Thomasrythrocyte distribution width (RBC) [Ratio]12.5 %Fihqdo52.0-15.0 The [facility] DaytonComment on above:Performed By: #### CBC #### [facility] [address] [place] [address] Dr. Barbra AlbrechtHematocrit (Bld) [Volume fraction]36.3 %Fqznqg94.0-48.0Parkwood HospitalComment on above:Performed By: #### CBC #### [facility] [address] [place] [address] Dr. Barbra AlbrechtHemoglobin (Bld) [Mass/Vol]11.9 g/dLCritically low12.0-16.0The [facility] DaytonComment on above:Performed By: #### CBC #### [facility] [address] [place] [address] Dr. Barbra Hutchinson #0.04 10e3/ulCritically high0.00-0.03The [facility] Comment on above:Performed By: #### CBC #### [facility] [address] [place] [address] Dr. Barbra Hutchinson %0.4 %Normal0.0-0.5The [facility] DaytonComment on above: Performed By: #### CBC #### [facility] [address] [place] [address] Dr. Barbra Wade #1.8 103/ulNormal1.2-3.8The [facility] DaytonComment on above:Performed By: #### CBC #### [facility] [address] [place] [address] Dr. Barbra Lopezmphocytes/100 WBC (Bld)17.5 %Critically low20.5-60.0The [facility] DaytonComment on above:Performed By: #### CBC #### [facility] [address] [place] [address] Dr. Barbra Guerrero DIFF REQNONormalThe [facility] DaytonComment on above: Performed By: #### CBC #### [facility] [address] [place] [address] Dr. Barbra Dietrich (RBC) [Entitic mass]33.6 xwRibioc89.7-34.0The [facility] DaytonComment on above:Performed By: #### CBC #### [facility] [address] [place] [address] Dr. Barbra Dietrich (RBC) [Mass/Vol]32.8 g/hDUgrgag30.9-35.2The [facility] DaytonComment on above:Performed By: #### CBC #### [facility] [address] [place] [address] Dr. Barbra Chisholm (RBC) [Entitic vol]102.5 fLCritically high81.0-99.0The [facility] DaytonComment on above:Performed By: #### CBC #### [facility] [address] [place] [address] Dr. Barbra Rose #0.6 103/ulNormal0.3-0.8The [facility] DaytonComment on above:Performed By: #### CBC #### [facility] [address] [place] [address] Dr. Barbra Landrumocytes/100 WBC (Bld)6.0 %Normal1.7-12.0The [facility] Comment on above:Performed By: #### CBC #### [facility] [address] [place] [address] Dr. Yilan ChangNEUT #7.5 103/ulCritically high1.4-6.5The [facility] Comment on above:Performed By: #### CBC #### [facility] [address] [place] [address] Dr. Barbra Murphyutrophils/100 WBC (Bld)74.4 %Ziotyb86.0-75.0The [facility] DaytonComment on above:Performed By: #### CBC #### [facility] [address] [place] [address] Dr. Barbra AlbrechtPlatelet mean volume (Bld) [Entitic vol]9.3 fLCritically low 9.5-13.5The [facility] DaytonComment on above:Performed By: #### CBC #### [facility] [address] [place] [address] Dr. Barbra AlbrechtPLT283 103/tkZvjodb585-508Yeh [facility] DaytonComment on above: Performed By: #### CBC #### [facility] [address] [place] [address] Dr. Barbra AlbrechtRBC3.54 106/ulCritically low4.20-5.40The [facility] DaytonComment on above:Performed By: #### CBC #### [facility] [address] [place] [address] Dr. Barbra AlbrechtWBC10.0 103/ulNormal4.0-11.0The [facility] DaytonComment on above:Performed By: #### CBC #### [facility] [address] [place] [address] Dr. Barbra AlbrechtLIPASEon [id number] [Catalytic activity/Vol]114.0 U/LNormal 73.0-393.0The [facility] DaytonComment on above:Performed By: #### CMP, LIPA, LIPID #### [facility] [address] [place] [address] Dr. Barbra AlbrechtLIPID PROFILEon [id number] RATIO NORMSEE [facility] HospitalComment on above:Result Comment: 3.3 - 4.4 LOW RISK 4.4 - 7.1 AVERAGE RISK 7.1 - 11.0 MODERATE RISK >11.0 HIGH RISKPerformed By: #### CMP, LIPA, LIPID #### [facility] [address] [place] [address] Dr. Barbra AlbrechtCholesterol [Mass/Vol]210 mg/dLCritically high<=200The [facility] on above:Performed By: #### CMP, LIPA, LIPID #### [facility] [address] [place] [address] Dr. Barbra AlbrechtCholesterol in HDL [Mass/Vol]68 mg/dLCritically vqyd44-70Aaf [facility] DaytonComment on above:Performed By: #### CMP, LIPA, LIPID #### [facility] [address] [place] [address] Dr. Barbra AlbrechtCholesterol in LDL [Mass/Vol]132.0 mg/dLTuscarawas HospitalComhillsdale hospital on above:Performed By: #### CMP, LIPA, LIPID #### [facility] [address] [place] [address] Dr. Barbra Mirandaesterdelfin.total/Cholesterol in HDL [Mass ratio]3.1 {ratio} NormalThe [facility] DaytonComhillsdale hospital on above:Performed By: #### CMP, LIPA, LIPID #### [facility] [address] [place] [address] Dr. Barbra Reich NORMAL> or = 60 mg/dl - LOW CARDIOVASCULAR RISK <40 mg/dl - HIGH CARDIOVASCULAR RISKTuscarawas HospitalComhillsdale hospital on above:Performed By: #### CMP, LIPA, LIPID #### [facility] [address] [place] [address] Dr. Barbra AlbrechtLDL CALC NORMALSEE BELOWTuscarawas HospitalComment on above:Result Comment: <100 mg/dl OPTIMAL 100 - 129 mg/dl NEAR OR ABOVE OPTIMAL 130 - 159 mg/dl BORDERLINE HIGH 160 - 189 mg/dl HIGH >190 mg/dl VERY HIGH Performed By: #### CMP, LIPA, LIPID #### [facility] [address] [place] [address] Dr. Barbra AlbrechtTriglyceride [Mass/Vol]50 mg/dLNormal<=150The [facility] Comment on above:Performed By: #### CMP, LIPA, LIPID #### [facility] [address] [place] [address] Dr. Barbra AlbrechtVLDL CALC10.0 mg/dLNormalThe [facility] DaytonComment on above: Performed By: #### CMP, LIPA, LIPID #### [facility] [address] [place] [address] Dr. Barbra AlbrechtPROF 14(COMP METB)on [id number] [Mass/Vol]3.9 g/dLNormal 3.4-5.0The [facility] DaytonComment on above:Performed By: #### FERR, FETIBC, VITB12 #### [facility] [address] [place] [address] Dr. Barbra AlbrechtAlbumin/Globulin [Mass ratio]1.3 {ratio}NormalThe [facility] DaytonComment on above:Performed By: #### FERR, FETIBC, VITB12 #### [facility] [address] [place] [address] Dr. Barbra LoredoP [Catalytic activity/Vol]57 U/PXmkxay55-238Ndb [facility] Hospitalment on above:Performed By: #### FERR, FETIBC, VITB12 #### [facility] [address] [place] [address] Dr. Barbra Koenig [Catalytic activity/Vol]21 U/SWzycth99-01Qkg [facility] DaytonComment on above:Performed By: #### FERR, FETIBC, VITB12 #### [facility] [address] [place] [address] Dr. Barbra Cintron gap [Moles/Vol]12.1 mmol/LNormalThe [facility] Comment on above:Performed By: #### FERR, FETIBC, VITB12 #### [facility] [address] [place] [address] Dr. Barbra AlbrechtAST [Catalytic activity/Vol]13 U/LCritically kep44-06Txi [facility] DaytonComment on above:Performed By: #### FERR, FETIBC, VITB12 #### [facility] [address] [place] [address] Dr. Barbra AlbrechtBilirubin [Mass/Vol]0.2 mg/dLNormal0.2-1.0The [facility] Comment on above:Performed By: #### FERR, FETIBC, VITB12 #### [facility] [address] [place] [address] Dr. Barbra AlbrechtCalcium [Mass/Vol]8.9 mg/dLNormal8.5-10.1The [facility] Comment on above:Performed By: #### FERR, FETIBC, VITB12 #### [facility] [address] [place] [address] Dr. Barbra AlbrechtChloride [Moles/Vol]103 mmol/KSuiluh56-985MncParkwood Hospital Comment on above:Performed By: #### FERR, FETIBC, VITB12 #### [facility] [address] [place] [address] Dr. Barbra AlbrechtCO2 [Moles/Vol]26.5 mmol/MZsbeht52.0-32.0The [facility] Comment on above:Performed By: #### FERR, FETIBC, VITB12 #### [facility] [address] [place] [address] Dr. Barbra AlbrechtCreatinine [Mass/Vol]0.69 mg/dLNormal0.55-1.02The [facility] DaytonComment on above:Performed By: #### FERR, FETIBC, VITB12 #### [facility] [address] [place] [address] Dr. Barbra ThomasGFR-AF LAO>60Normal>=60The [facility] DaytonComment on above:Performed By: #### FERR, FETIBC, VITB12 #### [facility] [address] [place] [address] Dr. Barbra ThomasGFR-NON AF LAO>60Normal>=60The [facility] DaytonComment on above:Performed By: #### FERR, FETIBC, VITB12 #### [facility] [address] [place] [address] Dr. Barbra AlbrechtGlobulin (S) [Mass/Vol]3.0 g/dLNormUniversity Hospitals TriPoint Medical CenterComment on above:Performed By: #### FERR, FETIBC, VITB12 #### [facility] [address] [place] [address] Dr. Barbra AlbrechtGlucose [Mass/Vol]94 mg/vCQwkmvv77-264Cop [facility] Comment on above:Performed By: #### FERR, FETIBC, VITB12 #### [facility] [address] [place] [address] Dr. Barbra AlbrechtPotassium [Moles/Vol]3.6 mmol/LNormal3.5-5.1The [facility] Comment on above:Performed By: #### FERR, FETIBC, VITB12 #### [facility] [address] [place] [address] Dr. Barbra AlbrechtProtein [Mass/Vol]6.9 g/dLNormal6.4-8.2The [facility] Comment on above:Performed By: #### FERR, FETIBC, VITB12 #### [facility] [address] [place] [address] Dr. Barbra AlbrechtSodium [Moles/Vol]138 mmol/LTaaihb837-395ZbeParkwood Hospital Comment on above:Performed By: #### FERR, FETIBC, VITB12 #### [facility] [address] [place] [address] Dr. Barbra AlbrechtUrea nitrogen [Mass/Vol]18.0 mg/dLNormal7.0-18.0The [facility] DaytonComment on above:Performed By: #### FERR, FETIBC, VITB12 #### [facility] [address] [place] [address] Dr. Barbra AlbrechtUrea nitrogen/Creatinine [Mass ratio]26.1 mg/mgNoMartin Memorial HospitalComment on above:Performed By: #### FERR, FETIBC, VITB12 #### [facility] [address] [place] [address] Dr. Barbra Garcia Abdomen Completeon [id number] Abdomen CompleteEXAM: RUQ US CLINICAL HISTORY: pain [...] signed by ADAM ALCANTARA on 03/10/2022 1059NormalNorthern Day Kimball HospitalUS Pelvic Complete w/Transvaginalon [id number] Pelvic Complete w/TransvaginalHISTORY: Pelvic pain for one [...] signed by Mark Robert on 03/13/2022 0950NoOhioHealth [facility] SpecialistSCREENING MAMMOGRAM W/TRAY, BILATERAL*on 02-22-2022 SCREENING [...] VERY IMPORTANT TO YOUR HEALTH. THE CURRENT [employer] GUIDELINES RECOMMENDS ANNUAL MAMMOGRAPHY BEGINNING AT AGE 40 THIS FACILITY USES A REMINDER SYSTEM TO ENSURE ALL PATIENTS RECEIVE REMINDER NOTIFICATIONS AT THE APPROPRIATE TIME BASED ON THE RECOMMENDATIONS OF THIS EXAM. Board Certified Radiologist. Accredited by the ACR and FDA. Report reported and signed by Mark Jones on 02/27/2022 1028NoOhioHealth Grady [facility] Hospital SpecialistCULTURE URINEon [id number] URINECulture Observations: MODERATE GROWTH OF MIXED GENITAL JOHNNY. NO POTENTIAL PATHOGENS SEEN.NormalThe [facility] DaytonComment on above:Performed By: #### FERR, FETIBC, VITB12 #### [facility] [address] [address] [address] Barbra Albrecht Vital Signs Date TimeVital SignValuePerforming CieskqjsgPudnpayg67-13-3841 09:140400Body mljekf446.64 cmFernanda Concepcion MD Work Phone: [facility]10-31-2025 09:14-0400 Body mass index (BMI) [Ratio]18.8 kg/l9GldxgbFernanda Concepcion MD Work Phone: [facility]10-31-2025 09:14-040 Body atqhiy67.07 kgFernanda Concepcion MD Work Phone: [facility]10-31-2025 09:14-0400 Diastolic blood mm[Hg]Fernanda Concepcion MD Work Phone: [phone] [place], [place] 1774910-31-2025 09:14-0400 Heart rate93 /Cande Concepcion MD Work Phone: [phone])[address]10-31-2025 09:14-0400 Systolic blood mfyvdacc464 mm[Hg]Fernanda Concepcion MD Work Phone: [phone])14316 [address]10-20-2025 10:29-0400 Body .64 cmFernanda Concepcion MD Work Phone: [phone])[address]16 [address]10-20-2025 10:29-0400 Body mass index (BMI) [Ratio]20.3 kg/r0XgsyckFernanda Concepcion MD Work Phone: [phone] [place], [place] 9027210-20-2025 10:29-0400 Body .15 kgFernanda Concepcion MD Work Phone: [phone] [place], [place] 9027210-20-2025 10:29-0400 Diastolic blood hvupneky13 mm[Hg]Fernanda Concepcion MD Work Phone: [phone] [place], [place] 9027210-20-2025 10:29-0400 Heart rate97 /Cande Concepcion MD Work Phone: [phone] [place], [place] 9027210-20-2025 10:29-0400 SaO2% (BldA) [Mass fraction]98 %Fernanda Concepcion MD Work Phone: [phone])36816 [address]10-20-2025 10:29-0400 Systolic blood tgzkbahm401 mm[Hg]Fernanda Concepcion MD Work Phone: [phone])[address]09-02-2025 13:03-0400 Body hfxefa363.6 cmLeanne David DO Work Phone: [facility] CenterTsmhqyapao89-01-6284 13:03-0400Body mass index (BMI) [Ratio]20.98 kg/o0Jnxtxh David DO Work Phone: noUniversity [facility] CenterLjgwfuniqy46-68-3993 13:03-0400Body .97 kgLeanne David DO Work Phone: [facility] CenterKrkzvojrha20-44-2459 13:03-0400Diastolic blood qudgknsj52 mm[Hg]Marta David DO Work Phone: [facility] CenterIxyriteoje01-32-2349 13:03-0400Heart rate86 /min Marta David DO Work Phone: [facility] CenterExapoztjpx02-24-8269 13:03-5806UvA0% (BldA) [Mass fraction]99 %Marta David DO Work Phone: [facility] CenterGunizflaoa70-06-1824 13:03-0400Systolic blood iifzetmu583 mm[Hg]Marta Hernandez DO Work Phone: [facility] CenterQqnpadcerp64-23-1907 08:30-0400Body ahrbsy700.64 cmFernanda Concepcion MD Work Phone: [phone]12[facility]07-17-2025 08:30-0400 Body mass index (BMI) [Ratio]20.4 kg/c8XjchpeFernanda Concepcion MD Work Phone: [phone])[address]07-17-2025 08:30-0400 Body dycoui70.37 kgFernanda Concepcion MD Work Phone: [phone] [place], [place] 1774907-17-2025 08:30-0400 Diastolic blood xqgtvvil38 mm[Hg]Fernanda Concepcion MD Work Phone: 1([phone] [place], [place] 1774907-17-2025 08:30-0400 Heart rate80 /minFernanda Concepcion MD Work Phone: [phone]07-17-2025 08:30-0400 Systolic blood ordhomrv334 mm[Hg]Fernanda Concepcion MD Work Phone: 1([phone])709-[address] [place], [place] 1774907-02-2025 09:40-0400 Body .64 cmFernanda Concepcion MD Work Phone: [phone] [place], [place] 1774907-02-2025 09:40-0400 Body mass index (BMI) [Ratio]19.3 kg/g3AgubaaFernanda Concepcion MD Work Phone: [phone]29[facility]07-02-2025 09:40-0400 Body xpukse66.43 kgFernanda Concepcion MD Work Phone: [phone]96[facility]07-02-2025 09:40-0400 Diastolic blood golytmdh92 mm[Hg]Fernanda Concepcion MD Work Phone: [phone])[address]07-02-2025 09:40-0400 Heart rate89 /Cande Concepcion MD Work Phone: [phone])23516 [address]07-02-2025 09:40-0400 SaO2% (BldA) [Mass fraction]98 %Fernanda Concepcion MD Work Phone: [phone])59616 [address]07-02-2025 09:40-0400 Systolic blood vtewenve694 mm[Hg]Fernanda Concepcion MD Work Phone: [phone])[address]06-17-2025 11:39-0400 Body eokuoc767.64 cmFernanda Concepcion MD Work Phone: 1([phone])[address]16 [address]06-17-2025 11:39-0400 Body mass index (BMI) [Ratio]19.8 kg/v4NnxsrlFernanda Concepcion MD Work Phone: [phone])62416 [address]06-17-2025 11:39-0400 Body .79 kgFernanda Concepcion MD Work Phone: [phone])[address]06-17-2025 11:39-0400 Diastolic blood idbgmbbz72 mm[Hg]Fernanda Concepcion MD Work Phone: [phone]06-17-2025 11:39-0400 Heart rate75 /Cande Concepcion MD Work Phone: [phone])[address]06-17-2025 11:39-0400 Systolic blood cpeawroo434 mm[Hg]Fernanda Concepcion MD Work Phone: 1([phone])[address]05-27-2025 15:05-0400 Body zvysab057.6 cmLeanne David DO Work Phone: [facility] CenterEharcpnweh90-28-4864 15:05-0400Body mass index (BMI) [Ratio]20.18 kg/z2Tkauys David DO Work Phone: [facility] CenterTzynwpamvv54-05-7129 15:05-0400Body jfdcer11.7 kg Marta David DO Work Phone: [phone]-[facility] CenterYlgyyiacgr73-59-3842 15:05-0400Diastolic blood lguusijt07 mm[Hg]Marta David DO Work Phone: 1([phone]-[facility] CenterVkmhzzhzlj05-12-7228 15:05-0400Heart rate86 /min Marta David DO Work Phone: [phone]-[facility] CenterWucbwvvyvl15-13-4678 15:05-6976AfA4% (BldA) [Mass fraction]95 %Marta David DO Work Phone: [phone]-[facility] CenterVvaqdakxbo42-19-0745 15:05-0400Systolic blood kirvtgmy233 mm[Hg]Marta David DO Work Phone: [phone])8-[facility] CenterHjbgafdrww96-10-6467 09:04-0400Body ddxotm268.64 cmFernanda Concepcion MD Work Phone: [facility]05-23-2025 09:04-0400 Body mass index (BMI) [Ratio]19.7 kg/z5WxmmjdFernanda Concepcion MD Work Phone: [phone]05-23-2025 09:04-0400 Body pnjeeqcjkgw32.8 [degF]Fernanda Concepcion MD Work Phone: [phone]05-23-2025 09:04-0400 Body ihngxd60.33 kgFernanda Concepcion MD Work Phone: [phone]05-23-2025 09:04-0400 Diastolic blood xxuqmsux93 mm[Hg]Fernanda Concepcion MD Work Phone: [facility]05-23-2025 09:04-0400 Heart rate77 /minFernanda Concepcion MD Work Phone: [facility]05-23-2025 09:04-0400 Respiratory rate16 /Cande Concepcion MD Work Phone: [facility]05-23-2025 09:04-0400 SaO2% (BldA) [Mass fraction]98 %Fernanda Concepcion MD Work Phone: [facility]05-23-2025 09:04-0400 Systolic blood xmgibjbj281 mm[Hg]Fernanda Concepcion MD Work Phone: [facility]05-02-2025 17:36-0400 Body vcchbybzbqx33.01 [degF]Markel Vicente SASH INSTALLER Work Phone: [facility] CenterCwttkbyeiq92-44-4603 17:36-0400Diastolic blood lesjvbin16 mm[Hg]Markel Vicente SASH INSTALLER Work Phone: [facility] CenterFrblkqxvsk78-18-8787 17:36-0400Heart rate86 /min Markelsloane Vicente SASH INSTALLER Work Phone: [facility] CenterZqypcmtbdk51-81-9985 17:36-9474YkM7% (BldA) [Mass fraction]98 %Markel Vicente SASH INSTALLER Work Phone: [facility] CenterFwyvnpzmvs49-74-0032 17:36-0400Systolic blood mm[Hg]Markel Vicente SASH INSTALLER Work Phone: [facility] CenterSjstwsvrby21-73-0924 09:13-0400Body mass index (BMI) [Ratio]18.88 kg/m1GdpxfvStevan Alicia MD Work Phone: [facility] CenterWxnfkprnqx11-66-6160 09:13-0400Body ikxfuz06.07 kgStevan Alicia MD Work Phone: [facility] CenterFomwyyrjvt44-55-9693 09:13-0400Diastolic blood wqfbqtuq28 mm[Hg]Stevan Alicia MD Work Phone: [facility] CenterIudtovyohh93-42-9242 09:13-0400Systolic blood uhytifjz511 mm[Hg]Stevan Alicia MD Work Phone: noUniversity [facility] CenterCffdamfosp67-96-0671 14:190400Body tepcro854.6 cmAdinorah Mongechristian SASH INSTALLER Work Phone: [facility] CenterVgwiwbfkyx21-85-3291 14:19-0400Body mass index (BMI) [Ratio]19.05 kg/l8QwcizhCandice Mongechristian SASH INSTALLER Work Phone: NOUn[facility] CenterEdmmaqcsyx13-27-8284 14:19-0400Body .52 kgCadnice Mongechristian SASH INSTALLER Work Phone: NOUniversity Health [facility] Medical CenterQkszokkxyh91-43-8847 14:19-0400Diastolic blood ggmnepng22 mm[Hg]Candice Mongechristian SASH INSTALLER Work Phone: [facility] CenterYhfbsfrndt46-89-0817 14:19-0400Heart rate87 /min Candice Avalosjace SASH INSTALLER Work Phone: [facility] CenterQbauwllxwx40-77-3574 14:19-5883EkL6% (BldA) [Mass fraction]96 %Candice Mongechristian SASH INSTALLER Work Phone: [facility] CenterDlsrzpbkwu22-90-9204 14:0400Systolic blood mwgohbfc541 mm[Hg]Candice Avalosjace SASH INSTALLER Work Phone: [facility] CenterNpyqnriatz27-07-6085 10:03-0400Body wuqjwl895.64 cmFernanda Concepcion MD Work Phone: [facility]03-27-2025 10:03-0400 Body mass index (BMI) [Ratio]19.8 kg/n4ZynsmgFernanda Concepcion MD Work Phone: [facility]03-27-2025 10:03-0400 Body xetzza34.9 kgFernanda Concepcion MD Work Phone: [facility]03-27-2025 10:03-0400 Diastolic blood mm[Hg]Fernanda Concepcion MD Work Phone: [facility]03-27-2025 10:03-0400 Heart rate85 /minFernanda Concepcion MD Work Phone: [phone])[address]03-27-2025 10:03-0400 Systolic blood hjarrljl794 mm[Hg]Fernanda Concepcion MD Work Phone: 1([phone])04[address]12-04-2024 13:00-0500 Diastolic blood mm[Hg]Fernanda Concepcion MD Work Phone: 1([phone])[address]16 [address]12-04-2024 13:00-0500 Heart rate94 /Cande Concepcion MD Work Phone: 1(360)[address]12-04-2024 13:00-0500 Respiratory rate18 /Cande Concepcion MD Work Phone: [phone])[address] [place], [place] 9027212-04-2024 13:00-0500 SaO2% (BldA) [Mass fraction]97 %Fernanda Concepcion MD Work Phone: 1([phone])[address] [place], [place] 9027212-04-2024 13:00-0500 Systolic blood rhfivfal181 mm[Hg]Fernanda Concepcion MD Work Phone: [phone] [place], [place] 9027212-04-2024 09:56-0500 Body yqqkzy028.64 cmFernanda Concepcion MD Work Phone: [phone] [place], [place] 9027212-04-2024 09:56-0500 Body mass index (BMI) [Ratio]19.5 kg/k7IjbgwuFernanda Concepcion MD Work Phone: [phone] [place], [place] 9027212-04-2024 09:56-0500 Body gnvlblgnwok72.9 [degF]Fernanda Concepcion MD Work Phone: 1([phone])[address] [place], [place] 9027212-04-2024 09:56-0500 Body epwscy86.88 kgFernanda Concepcion MD Work Phone: [phone] [place], [place] 9027212-04-2024 09:56-0500 Diastolic blood teskpnry00 mm[Hg]Fernanda Concepcion MD Work Phone: 1(043)[address] [place], [place] 9027212-04-2024 09:56-0500 Heart rate91 /Cande Concepcion MD Work Phone: [phone]12-04-2024 09:56-0500 Systolic blood wyuitnya941 mm[Hg]Fernanda Concepcion MD Work Phone: 1([phone])[address]16 [address]11-26-2024 13:13-0500 Body vbmouezqqpq87.1 [degF]Fernanda Concepcion MD Work Phone: 1([phone])[address]16 [address]11-18-2024 10:30-0500 Body swyweo915.64 cmFernanda Concepcion MD Work Phone: 1(256)[address]16 [address]11-18-2024 10:30-0500 Body mass index (BMI) [Ratio]19.3 kg/s3EptyzeFernanda Concepcion MD Work Phone: 1(121)[address]11-18-2024 10:30-0500 Body kiqyjhqavah58 [degF]Fernanda Concepcion MD Work Phone: 1(141)76516 [address]11-18-2024 10:30-0500 Body aloqkz01.43 kgFernanda Concepcion MD Work Phone: 1(302)[address]11-18-2024 10:30-0500 Diastolic blood fbesvebl16 mm[Hg]Fernanda Concepcion MD Work Phone: 1(893)[address]16 [address]11-18-2024 10:30-0500 Heart wfas386 /Cande Concepcion MD Work Phone: 1(458)32716 [address]11-18-2024 10:30-0500 Respiratory rate16 /Cande Concepcion MD Work Phone: 1(478)43416 [address]11-18-2024 10:30-0500 SaO2% (BldA) [Mass fraction]97 %Fernanda Concepcion MD Work Phone: 1([phone])[address]11-18-2024 10:30-0500 Systolic blood gxurubqi391 mm[Hg]Fernanda Concepcion MD Work Phone: [phone]10-28-2024 08:42-0400 Body obxsnr21.07 kgMD Fernanda Concepcion Work Phone: [facility]10-28-2024 08:42-0400 Diastolic blood edsbdfjp48 mm[Hg]MD Fernanda Concepcion Work Phone: [facility]10-28-2024 08:42-0400 Heart rate89 /minMD Fernanda Concepcion Work Phone: [facility]10-28-2024 08:42-0400 Systolic blood mzkjvyxy710 mm[Hg]MD Fernanda Concepcion Work Phone: [facility]10-17-2024 14:50-0400 Body mass index (BMI) [Ratio]19.05 kg/i2IavaziStevan Alicia MD Work Phone: [facility] CenterGcxagafkaq10-53-1328 14:50-0400Body omfihk61.52 kgStevan Alicia MD Work Phone: [facility] CenterIbmzoixssm11-41-8110 14:50-0400Diastolic blood bnwkqwax47 mm[Hg]Stevan Alicia MD Work Phone: [facility] CenterDgsoovwyzn34-99-4481 14:50-0400Systolic blood mm[Hg]Stevan Alicia MD Work Phone: [facility] CenterQkpibeygga45-26-0933 15:14-0400Body bdvwku588.6 cmLeanne David DO Work Phone: [facility] CenterYfclutnlqv72-91-3890 15:14-0400Body mass index (BMI) [Ratio]18.56 kg/u5Fryhhl David DO Work Phone: [place] [address]Vhnqmavcmb96-95-6468 15:14-0400Body snvurp25.16 kgLeanne David DO Work Phone: [place] [address]Qzzcpqacnq47-71-9138 15:14-0400Diastolic blood ferstwqv09 mm[Hg]Marta David DO Work Phone: [facility] CenterOaynloeukq67-49-1068 15:14-0400Heart rate76 /min Marta David DO Work Phone: [place] [address]Zjlosewnjn59-71-1238 15:14-3781PxR1% (BldA) [Mass fraction]99 %Marta David DO Work Phone: [facility] CenterNwfdbcnnfa09-60-1954 15:14-0400Systolic blood mqylcaem910 mm[Hg]Marta David DO Work Phone: [facility] CenterHiwbxuzkcs13-45-6801 08:36-0400Body mtvequ182.64 cmMD Fernanda Concepcion Work Phone: [phone]07-16-2024 08:36-0400 Body mass index (BMI) [Ratio]18.2 kg/m2MD Fernanda Concepcion Work Phone: [phone]47[facility]07-16-2024 08:36-0400 Body yyytvd86.25 kgMD Fernanda Concepcion Work Phone: [phone]07-16-2024 08:36-0400 Diastolic blood ljjixabc58 mm[Hg]MD Fernanda Concepcion Work Phone: [phone]07-16-2024 08:36-0400 Heart rate80 /minMD Fernanda Concepcion Work Phone: [phone]07-16-2024 08:36-0400 Systolic blood vrbhqapy839 mm[Hg]MD Fernanda Concepcion Work Phone: [facility]06-28-2024 13:39-0400 Blood Pressure Deon Delgado [facility]06-28-2024 13:39-0400 Diastolic blood ctqusvqy51 mm[Hg]Girma Delgado [facility]06-28-2024 13:39-0400Heart rate85 /Elida Delgado [facility]06-28-2024 13:39-0400 Respiratory rate16 /minGirma Delgado [facility]06-28-2024 13:39-5112PeZ6% (BldA) [Mass fraction]96 %Girma Sandy [facility]06-28-2024 13:39-0400 Systolic blood xixkkjdk993 mm[Hg]Girma Sandy [facility]06-18-2024 11:48-0400 Diastolic blood hieztgpw95 mm[Hg]MD Fernanda Concepcion Work Phone: [facility]06-18-2024 11:48-0400 Heart rate66 /minMD Fernanda Concepcion Work Phone: [facility]06-18-2024 11:48-0400 Respiratory rate18 /minMD Fernanda Concepcion Work Phone: [facility]06-18-2024 11:48-0400 SaO2% (BldA) [Mass fraction]98 %MD Fernanda Concepcion Work Phone: [facility]06-18-2024 11:48-0400 Systolic blood tnyatlgu916 mm[Hg]MD Fernanda Concepcion Work Phone: [facility]06-18-2024 10:10-0400 Body vxszgy340.64 cmMD Fernanda Concepcion Work Phone: [facility]06-18-2024 10:10-0400 Body xwgsma01.89 kgMD Fernanda Concepcion Work Phone: [facility]05-15-2024 14:53-0400 Diastolic blood iylizvsg09 mm[Hg]Girma Sandy [facility]05-15-2024 14:53-0400Heart rate81 /minGirma Oterojarred [facility]05-15-2024 14:53-4418KcF7% (BldA) [Mass fraction]95 %Girma Sandy [facility]05-15-2024 14:53-0400 Systolic blood nqzeyodp450 mm[Hg]Girma Oterojacobkyung [facility]04-09-2024 10:43-0400Body .64 cmMD Fernanda Concepcion Work Phone: [facility]04-09-2024 10:43-0400 Body mass index (BMI) [Ratio]19.1 kg/m2MD Fernanda Concepcion Work Phone: [phone]04-09-2024 10:43-0400 Body pcuehj40.72 kgMD Fernanda Concepcion Work Phone: [phone]04-09-2024 10:43-0400 Diastolic blood sudizsik17 mm[Hg]MD Fernanda Concepcion Work Phone: [phone]04-09-2024 10:43-0400 Heart rate98 /minMD Fernanda Concepcion Work Phone: [phone]04-09-2024 10:43-0400 Systolic blood mm[Hg]MD Fernanda Concepcion Work Phone: [phone]86[facility]03-25-2024 10:20-0400 Body sqwemc276.64 cmMD Fernanda Concepcion Work Phone: [phone]03-25-2024 10:20-0400 Body mass index (BMI) [Ratio]18.8 kg/m2MD Fernanda Concepcion Work Phone: [phone]03-25-2024 10:20-0400 Body qwcdda19.07 kgMD Fernanda Concepcion Work Phone: [phone]03-25-2024 10:20-0400 Diastolic blood qakyebrl26 mm[Hg]MD Fernanda Concepcion Work Phone: [phone]03-25-2024 10:20-0400 Heart rate87 /minMD Fernanda Concepcion Work Phone: [phone]03-25-2024 10:20-0400 Systolic blood caqbrmhc529 mm[Hg]MD Fernanda Concepcion Work Phone: [facility]02-06-2024 07:20-0500 Body .64 cmMD Fernanda Concepcion Work Phone: [facility]02-06-2024 07:20-0500 Body quzrgg29.89 kgMD Fernanda Concepcion Work Phone: [facility]12-04-2023 13:30-0500 Body rmibzb121.64 cmFernanda Concepcion Other [employer] Other [id number] 13:30-0500Body mass index (BMI) [Ratio] 18.49 kg/c2CeiaycFernanda Concepcion Other [employer] Other 12-04-2023 13:30-0500Body .98 kgFernanda Concepcion Other [place] [employer] Other [id number] 13:30-0500Diastolic blood wrqyiung27 mm[Hg] Fernanda Concepcion Other [facility] Other 12-04-2023 13:30-0500Systolic blood dsrxybek021 mm[Hg] Fernanda Concepcion Other [facility] Other 11-01-2023 14:00-0400Body .64 cmStacho Mcdonough Other [employer] Other 11-01-2023 14:00-0400Body mass index (BMI) [Ratio] 18.14 kg/z0MigpivStefan Mcdonough Other [employer] Other 11-01-2023 14:00-0400Body .98 kgStefan Mcdonough Other [employer] Other 11-01-2023 14:00-0770YbD5% (BldA) [Mass fraction]98 % Stefan Mcdonough Other [place] [employer] Other 08-30-2023 09:54-0400Blood Pressure LocationJENNIFER EJ [facility] [place] [address]-30-2023 09:54-0400Diastolic blood jtpepnhz34 mm[Hg]GIANNA EJ [facility] [place] [address]-30-2023 09:54-0400Heart rate90 /minJENNIFER EJ [facility]08-30-2023 09:54-0400Systolic blood jycvuojt669 mm[Hg]GIANNA EJ [facility]08-23-2023 09:41-0400Blood Pressure LocationJENNIFER EJ [facility]08-23-2023 09:41-0400Diastolic blood aqevkimn64 mm[Hg]GIANNA EJ [facility]08-23-2023 09:41-0400Heart rate89 /minJENNIFER EJ [facility] [place] [address]-23-2023 09:41-0400Systolic blood mm[Hg]GIANNA EJ [facility] [place] [address]-16-2023 10:47-0400Blood Pressure LocationJENNIFER EJ [facility] of [address]16-2023 10:47-0400Diastolic blood evlxxvdc92 mm[Hg]GIANNA EJ [facility] [place] [address]-16-2023 10:47-0400Heart rate81 /minJENNIFER EJ [facility] [place] [address]-16-2023 10:47-0400Systolic blood ovhnfmnr349 mm[Hg]GIANNA EJ [facility] [place] [address]-09-2023 09:43-0400Blood Pressure LocationJENNIFER EJ [facility] [place] [address]-09-2023 09:43-0400Diastolic blood mm[Hg]GIANNA EJ [facility]08-09-2023 09:43-0400Heart rate74 /minJENNIFER EJ [facility]08-09-2023 09:43-0400Systolic blood akwdqlqz896 mm[Hg]GIANNA EJ [facility]07-14-2023 08:45-0400Body ulfbwz584.64 cmFernanda Concepcion Other [employer] Other 07-14-2023 08:45-0400Body mass index (BMI) [Ratio] 19.21 kg/t6QgijkcFernanda Concepcion Other [employer] Other 07-14-2023 08:45-0400Body esskxr87.98 kgFernanda Concepcion Other [employer] Other 07-14-2023 08:45-0400Diastolic blood hwxrugah26 mm[Hg] Fernanda Concepcion Other [employer] Other 07-14-2023 08:45-0400Systolic blood ltbmyody399 mm[Hg] Fernanda Concepcion Other [employer] Other 06-09-2023 13:00-0400Body lnzucf672.64 cmAmenicokatie Jamey Other [employer] Other 06-09-2023 13:00-0400Body mass index (BMI) [Ratio] 20.01 kg/a2MwktmsFernanda Concepcion Other [employer] Other 06-09-2023 13:00-0400Body zjtado74.25 kgFernanda Concepcion Other [employer] Other 06-09-2023 13:00-0400Diastolic blood bfsbmxji52 mm[Hg] Fernanda Concepcion Other [employer] Other 06-09-2023 13:00-0400Systolic blood anhxedor804 mm[Hg] Fernanda Concepcion Other [employer] Other 04-03-2023 11:00-0400Body wulclt247.64 cmFernanda Concepcion Other [employer] Other 04-03-2023 11:00-0400Body mass index (BMI) [Ratio] 20.82 kg/r4OdcsczFernanda Concepcion Other [employer] Other 04-03-2023 11:00-0400Body aycboe09.51 kgFernanda Concepcion Other [employer] Other 04-03-2023 11:00-0400Diastolic blood fbsiwlnk61 mm[Hg] Fernanda [facility]pcion [facility] [employer] Other 04-03-2023 11:00-9386PyH7% (BldA) [Mass fraction]97 % Fernanda Con[facility]pcion [facility] [employer] Other 04-03-2023 11:00-0400Systolic blood txjewpkc849 mm[Hg] Fernanda Con[facility]pcion [facility] [employer] Other 03-28-2023 08:33-0400Blood Pressure LocationJENNIFER EJ [facility]03-28-2023 08:33-0400Diastolic blood qjbaecax37 mm[Hg]GIANNA EJ [facility]03-28-2023 08:33-0400Heart rate89 /minJENNIFER EJ [facility]03-28-2023 08:33-0400Systolic blood ccgqsyls257 mm[Hg]GIANNA EJ [facility]01-04-2023 11:28-0500Body seyvczdjywr29.4 [degF]MD Stevan Alicia Work Phone: [facility]01-04-2023 11:28-0500 Body oslnds95.2 kgMD Stevan Alicia Work Phone: [facility]01-04-2023 11:28-0500 Diastolic blood hgdllztu30 mm[Hg]MD Stevan lAicia Work Phone: [facility]01-04-2023 11:28-0500 Heart rate86 /minMD Stevan Alicia Work Phone: [facility]01-04-2023 11:28-0500 Respiratory rate18 /minMD Stevan Alicia Work Phone: [facility]01-04-2023 11:28-0500 SaO2% (BldA) [Mass fraction]100 %MD Stevan Alicia Work Phone: [facility]01-04-2023 11:28-0500 Systolic blood koqeyoir483 mm[Hg]MD Stevan Alicia Work Phone: [facility]12-01-2022 09:40-0500 Blood Pressure LocationRobert STEVEN [facility] [place] 728772-01-2022 09:40-0500Diastolic blood dvhizhtq71 mm[Hg]Willem HARRIS [facility] [place] 728772-01-2022 09:40-0500Heart rate76 /minRobert STEVEN [facility] [place] 728772-01-2022 09:40-0500Systolic blood mm[Hg]Willem HARRIS [facility] [place] 728771-01-2022 10:41-0400Body bipwfl207.91 cmMD Stevan Alicia Work Phone: [facility] Encounters Encounter DateEncounter TypeCare ProviderFacilityStart: 07-17-2025 End: 58-27-1455mlttrqjqghPfsunt E Braun MD Work Phone: [facility] 07-17-2025 End: 85-78-2378Vatinqj encounter procedureFernanda Concepcion MD-[facility] Work Phone: Start: 07-13-2025 End: 62-35-2705jpfjrxhmiaEkufny E Braun MD Work Phone: [phone]-EjskxnidkHarris [facility] Mgmt BCStart: 07-13-2025 End: 63-36-1726Xztgelg encounter procedureThmarylu Mark MD-[facility] Work Phone: Start: 07-08-2025 End: 62-36-5149jpcyyxhkwjKXTGBZ P JONESNot AvailableStart: 07-08-2025 End: 60-98-2610tlkirqyuucJCWULW BAILEYMORNot AvailableStart: 07-07-2025 End: 64-45-5974lxtqcqbduoFncgup E Braun MD Work Phone: [phone]-Nevtyzjgw Health OrthopedicsStart: 07-07-2025 End: 33-12-4929Ldawlrz encounter procedureCodeandra Rodriguez MD-[facility] Work Phone: Start: 07-06-2025 End: 56-85-4684eixuwdrkefQxiufu E Braun MD Work Phone: -[facility] [place]vueStart: 07-06-2025 End: 30-58-3361Looeytn encounter procedureNicelizabeth Lambert DO-[facility] Work Phone: Start: 19-60-8841Agb-patient / Non-visitCatherine Prieto WALLPAPER CONSULTANT-[facility] Work Phone: Start: 06-08-2025 End: 19-83-7168GdfvpjHvllr [place] LPNNRAJWINDER Potter OBGYNComment on above: Iron deficiencyStart: 05-19-2025 End: 61-12-7841Bwwnuy Junaid Hernandez DO Work Phone: [facility] PulmonologyStart: 05-19-2025 End: 59-78-8992Qpgbkhgemini Hernandez DO Work Phone: [facility] PulmonologyStart: 05-19-2025 End: 88-29-1555Qqzzwa outpatient visit 25 minutesMarta Hernandez DO Work Phone: [facility] PulmonologyComment on above: Chronic obstructive pulmonary disease, unspecified COPD type (HCC) (Primary Dx); Cigarette smokerStart: 05-19-2025 End: 29-15-2887hbzahdavaxJLAXCF K STRACKNot AvailableStart: 04-22-2025 End: 87-71-9769igxybhcwixOzcsrc E Braun MD Work Phone: [facility] Work Phone: Start: 04-22-2025 End: 48-57-5052Wugnmdg encounter procedureTad Mark MD-[facility] Work Phone: Start: 04-09-2025 End: 17-17-5621dinxptdjycNXHWFS P JONESNot AvailableStart: 04-02-2025 End: 54-13-5186hkzuqrwfscLinbgc E Braun MD Work Phone: [facility] Work Phone: Start: 04-02-2025 End: 12-53-5978Zhnphlv encounter procedureFernanda Concepcion MD-[facility] Work Phone: Start: 04-02-2025 End: 22-79-1475Uharkew encounter statusFernanda Concepcion MDAshtabula General Hospitaltart: 03-27-2025 End: 05-28-3049mhelkuvmgaAxsxqr E Braun MD Work Phone: [facility] Work Phone: Start: 03-27-2025 End: 70-22-7292Xouruuj encounter procedureCodeandra Rodriguez MD-[facility] Work Phone: Start: 03-23-2025 End: 81-67-0849hiimyxxwueIffjvi E Braun MD Work Phone: [facility] Work Phone: Start: 03-23-2025 End: 56-60-8146Krhiuua encounter procedureTad Mark MD-[facility] Work Phone: Start: 03-18-2025 End: 17-64-3643opibvwtvcsCsasgi E Braun MD Work Phone: [facility] Work Phone: Start: 03-18-2025 End: 80-53-7171Uhrzhgx encounter procedureCathryn Lambert DO-[facility] [place] Work Phone: Start: 37-43-5738Fgq-patient / Non-visitFernanda Concepcion MD-[facility] Professional Hi Work Phone: Start: 03-03-2025 End: 64-30-0505Kvgwifk encounter procedureFernanda Concepcion MD-[facility] Work Phone: Start: 03-02-2025 End: 55-65-9038Jcqhlht encounter procedureCathryn Lambert DO-[facility] Work Phone: Start: 02-25-2025 End: 74-86-1386cjawyvdhqqVjhykp E Braun MD Work Phone: [facility] Work Phone: Start: 02-25-2025 End: 08-05-2882Skpvmhx encounter Nguyễn Concepcion MD Work Phone: [facility]As[facility] Work Phone: Start: 02-10-2025 End: 64-92-3168Osvxwj outpatient visit 25 minutesMarta Hernandez DO Work Phone: noMS PULMComment on above:Chronic obstructive pulmonary disease, unspecified COPD type (CMS/HCC) (Primary Dx); Cigarette smokerStart: 02-10-2025 End: 34-69-9303ogucuncoceYFBGVK K STRACKNot AvailableStart: 02-10-2025 End: 82-70-1013Ijzpex Junaid Hernandez DO Work Phone: noMS PULMStart: 02-10-2025 End: 74-75-0029Rywvon Junaid Parker David DO Work Phone: [facility] PULMStart: 02-06-2025 End: 98-43-4574Ijdxozw encounter procedureFernanda Concepcion MD Work Phone: [facility] Ambulatory Work Phone: Start: 02-06-2025 End: 04-69-0310iqfdpzvtqfEwzbha E BraunFacility:[facility] Hospitaltart: 59-45-3742Mjpmgeiqcs RecurringFernanda Concepcion MD Work Phone: [facility] Acute Work Phone: Start: 01-27-2025 End: 15-58-3272Tctlwtl encounter procedureFernanda Concepcion MD Work Phone: [facility] CtrStart: 01-27-2025 End: 03-01-1891ecierkwemfFesybl E Braun MD Work Phone: [facility] Work Phone: Start: 01-16-2025 End: 94-51-7207Bkfqfq outpatient visit 25 minutesMarkel Vicente SASH INSTALLER Work Phone: [facility] SWS UCComment on above:Pain and swelling of toe of left foot (Primary Dx); Muscle strain of left foot, initial encounterStart: 01-16-2025 End: 19-65-9591pykwnibxueLFPXPR L HOLBROOKNot AvailableStart: 01-12-2025 End: 44-54-3009makwazpagjKZSIAA P JONESNot AvailableStart: 01-12-2025 End: 94-38-6947Frrckp outpatient visit 15 minutesStevan Alicia MD Work Phone: [facility] SWS OBComment on above:Encounter for gynecological examination without abnormal finding (Primary Dx); Encounter for screening for cervical cancer; Cysts of both ovaries; History of endometrial ablation; Amenorrhea; Asymptomatic menopausal state; Anemia, unspecified type; Other iron deficiency anemia; Abnormal TSH; Mood swings; Chronic vulvitis; HSV (herpes simplex virus) infection; MyomaStart: 01-12-2025 End: 09-54-7786Owzfuli encounter statusStevan Alicia MD Work Phone: [facility] HealthcareStart: 01-06-2025 End: 92-28-7430Cxugnp outpatient visit 25 minutesAngela Talha SASH INSTALLER Work Phone: ana SANDUSKYComment on above:Paresthesias (Primary Dx); Joint disease, temporomandibular; Neck pain; Foot pain, bilateral; Abnormal MRI, cervical spine; Bilateral occipital neuralgiaStart: 01-06-2025 End: 10-93-0197leprdluxqyUWJSSN GILLMORNot AvailableStart: 01-06-2025 End: 92-77-7600Kyrrtx flowsheetAngela Baileymor SASH INSTALLER Work Phone: ana SANDUSKYStart: 01-06-2025 End: 36-69-3297Hlraqk flowsheetAngela Baileymor SASH INSTALLER Work Phone: ana SANDUSKYStart: 01-05-2025 End: 45-67-7745oiwkhrrlyjLFEQTG GILLMORNot AvailableStart: 12-26-2024 End: 68-27-5479wggmdwrufmVruszs E Braun MD Work Phone: [facility] Work Phone: Start: 12-26-2024 End: 16-23-6570Gxebbyn encounter Nguyễn Concepcion MD Work Phone: [facility]ician [facility] Work Phone: Start: 12-11-2024 End: 42-89-3971dbgxekeywsHyftkq E Braun MD Work Phone: [facility] Work Phone: Start: 12-11-2024 End: 67-80-9020Gtoyrcc encounter procedureFernanda Concepcion MD Work Phone: [facility] Physician [facility] Work Phone: Start: 11-14-2024 End: 04-12-7467usucuqmxurCrtchf E Braun MD Work Phone: [facility] Work Phone: Start: 11-14-2024 End: 41-60-8019Xhuzags encounter procedureFernanda Concepcion MD Work Phone: [facility]ician [facility] Work Phone: Start: 42-96-8313Ryf-patient / Non-visitFernanda Concepcion MD Work Phone: [facility] Physician [facility] Work Phone: Start: 11-05-2024 End: 44-30-2440Jivrizl encounter procedureFernanda Concepcion MD Work Phone: [facility] [place] Work Phone: Start: 11-05-2024 End: 52-27-2962nqfjhnbajxCetxrk E Braun MD Work Phone: [facility] Work Phone: Start: 30-26-6087Ivgaktcwgx Luna Concepcion MD Work Phone: [facility] Work Phone: Start: 10-03-2024 End: 20-02-7976ckphlaywimDfpnde E Braun MD Work Phone: [facility] Work Phone: Start: 10-03-2024 End: 13-22-5974Bzvpgir encounter Nguyễn Concepcion MD Work Phone: [facility]ician [facility] Work Phone: Start: 36-85-8759Ynihhhtfjb Luna Concepcion MD Work Phone: [facility] Work Phone: Start: 08-20-2024 End: 25-39-7660Jfxfmwf encounter procedureFernanda Concepcion MD Work Phone: [facility] Physician [facility] Work Phone: Start: 30-18-7539Pqiwnofoit Luna Concepcion MD Work Phone: [facility] Work Phone: Start: 08-04-2024 End: 55-07-8312xwhksadhzuShogwo E Braun MD Work Phone: [facility] Work Phone: Start: 08-04-2024 End: 07-62-3028Vmgmgtg encounter procedureFernanda Concepcion MD Work Phone: [facility] Amb[facility] Work Phone: Start: 07-22-2024 End: 38-63-0222Ebvvqzo encounter procedureMD Fernanda Concepcion Work Phone: [facility] Work Phone: Start: 07-22-2024 End: 72-87-7520vfvndpgfzbBB Marcia E Braun Work Phone: [facility] Work Phone: Start: 07-17-2024 End: 38-15-6415Kblver outpatient visit 15 minutesStevan Alicia MD Work Phone: NOKD SWS OBComment on above:Mood swings; Vaginal itching; Vaginal discharge; Cysts of both ovaries; Abnormal CBC; Iron deficiency anemia, unspecified iron deficiency anemia type; Insomnia, unspecified typeStart: 07-16-2024 End: 65-45-5717zgupapjhllAcnhfy E BraunFacility:[facility] Hospitaltart: 07-16-2024 End: 67-44-2484Ocegeqmjhs Luna Concepcion MD Work Phone: [facility] Start: 12-90-4040Jfqccxhvit Kitty Concepcion Work Phone: [facility] Start: 07-14-2024 End: 64-57-5072Tpeqavqbi encounterStevan Alicia MD Work Phone: [facility] OBStart: 07-14-2024 End: 74-31-2664kvjtyooltjOT Fernanda Jimenez Concepcion Work Phone: [facility] Work Phone: Start: 07-14-2024 End: 85-29-7225Xsfvygl encounter procedureMD Fernanda Concepcion Work Phone: [facility] Work Phone: Start: 07-10-2024 End: 36-27-9535Gxcnzx OnlyStevan Alicia MD Work Phone: [facility] SWS OBComment on above:Chronic vulvitis (Primary Dx)Start: 05-76-4392Duganqwjgh RecurringMD Fernanda Concepcion Work Phone: [facility] Start: 07-03-2024 End: 49-20-8716Zewfypw encounter statusStevan Alicia MD Work Phone: [facility] HealthcareStart: 07-03-2024 End: 83-00-7717Yhtwfbdp 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 est patient 40-64yrsPenola Jas Alicia MD Work Phone: [facility] SWS OBComment on above:Amenorrhea (Primary Dx); Encounter for screening mammogram for malignant neoplasm of breast; Screening for malignant neoplasm of cervix; Encounter for gynecological examination without abnormal finding; History of endometrial ablation; Hx of ovarian cyst; Vaginal discharge; Thyroid disorder screeningStart: 07-01-2024 End: 78-22-8001Wionwq outpatient visit 25 Shawn Hernandez DO Work Phone: noms PULMComment on above:Chronic obstructive pulmonary disease, unspecified COPD type (CMS/HCC) (Primary Dx); Cigarette smokerStart: 07-01-2024 End: 34-13-1666Komzpa flowsheetMarta Hernandez DO Work Phone: [facility] PULMStart: 07-01-2024 End: 99-20-2426Hdmxir Junaid Hernandez DO Work Phone: [facility] PULMStart: 06-25-2024 End: 26-90-0116xxcthottegGE Fernanda Concepcion Work Phone: [facility] Work Phone: Start: 06-25-2024 End: 58-00-8917Luktzxw encounter procedureMD Fernanda Concepcion Work Phone: [facility] Work Phone: Start: 03-46-3566Poijxmboaz RecurringMD Fernanda Concepcion Work Phone: [facility] Start: 05-13-2024 End: 65-12-6565zmbnpfwaluMF Fernanda Concepcion Work Phone: [facility] Work Phone: Start: 05-13-2024 End: 99-74-7856Uhvdhtd encounter procedureMD Fernanda Concepcion Work Phone: [facility] Work Phone: Start: 05-07-2024 End: 52-92-2552Uut-admission assessmentThmarylu Thao [facility] Start: 60-20-3121Pwvuuyk encounter statusMD Fernanda Concepcion Work Phone: [facility] 04-01-2024 End: 60-42-6598wadehisyopVN Marcia E Braun Work Phone: [facility] Work Phone: Start: 04-01-2024 End: 59-92-1354Bmntovjbs for general adult medical examination without abnormal findingsMD Fernanda Concepcion Work Phone: [facility] 04-01-2024 End: 40-87-3709Dqnwqpn encounter procedureMD Fernanda Concepcion Work Phone: [facility] Work Phone: Start: 03-26-2024 End: 35-86-6226Pwfomgd encounter procedureTad Thao [facility] Start: 03-18-2024 End: 12-48-7902goykiwyeenIX Fernanda Concepcion Work Phone: [facility] Work Phone: Start: 03-18-2024 End: 75-74-3235Fivnxtm encounter procedureMD Fernanda Concepcion Work Phone: [facility] Work Phone: Start: 03-17-2024 End: 38-92-1058Eswcagq encounter procedureMD Fernanda Concepcion Work Phone: [facility] Work Phone: Start: 03-17-2024 End: 73-01-9028nnovkxakhpJG Marcia E Braun Work Phone: [facility] Work Phone: Start: 03-14-2024 End: 50-27-0087xbixxssdbiOCDO NONEFacility:FTMCStart: 03-14-2024 End: 95-69-5598Axtmjlr encounter procedureGirma Delgado [facility] Start: 28-66-7843Dwn-patient / Non-visitMD Fernanda Concepcion Work Phone: [facility] Work Phone: Start: 44-38-2594Bem-patient / Non-visitMD Fernanda Concepcion Work Phone: [facility] Work Phone: Start: 03-04-2024 End: 69-15-4543Lnidmrzps to same day surgery centerMD Fernanda Concepcion Work Phone: [facility] Work Phone: Start: 03-04-2024 End: 46-74-2407tpetkpwbskZhkm AsaadFacility:[facility] Start: 02-12-2024 End: 44-09-2876oiunmwskvvJB Marcia E Braun Work Phone: [facility] Work Phone: Start: 02-12-2024 End: 61-70-0472Ikafuhj encounter procedureMD Fernanda Concepcion Work Phone: [facility] Work Phone: Start: 02-06-2024 End: 19-49-9188srlcalchdsNtcn D. ChristoffersonFacility:FTMCStart: 02-06-2024 ambulatoryRyaltaf PedrozaersonFacility:FTMCStart: 02-06-2024 End: 76-74-0570Zmgkkdg encounter procedureGirma Delgado [facility] Start: 01-30-2024 End: 40-10-3252rsaydahnnbIHOVIKE COLLINSFacility:FTMCStart: 01-30-2024 End: 27-83-6370Xfiyuet encounter Nae Delgado [facility] Start: 01-29-2024 End: 68-18-9181gukalgeymbJF Marcia E Braun Work Phone: [facility] Work Phone: Start: 01-29-2024 End: 04-78-3187Cvmsbsmjdh RecurringMD Fernanda Concepcion Work Phone: [facility] [address] [facility] Start: 01-08-2024 End: 51-45-4276ubjvfvppzfHV Fernanda Concepcion Work Phone: [facility] Work Phone: Start: 01-08-2024 End: 35-07-4458Smjmdju encounter procedureMD Fernanda Concepcion Work Phone: [facility] Work Phone: Start: 80-44-8078Rdshmrdlhb RecurringMD Fernanda Concepcion Work Phone: [facility] Start: 12-28-2023 End: 64-28-7796xbohxcdsgrLE Fernanda Concepcion Work Phone: [facility] Work Phone: Start: 12-28-2023 End: 71-93-3646Pegzrkh encounter procedureMD Fernanda Concepcion Work Phone: [facility] Work Phone: Start: 42-26-0156Vtogzoqepc RecurringMD Ferreiraia Jamey Work Phone: [facility] Start: 12-25-2023 End: 40-17-6298Savhscy encounter procedureMD Fernanda Concepcion Work Phone: [facility] Work Phone: Start: 12-10-2023 End: 65-14-0021qoouentjdvOS Fernanda Concepcion Work Phone: [facility] Work Phone: Start: 12-10-2023 End: 49-27-7492Xisovmz encounter procedureMD Fernanda Concepcion Work Phone: [facility] Work Phone: Start: 12-04-2023 End: 33-41-2461nkezgnoghiXB Fernanda Concepcion Work Phone: [facility] Work Phone: Start: 12-04-2023 End: 87-62-7217Tjkacru encounter procedureMD Fernanda Concepcion Work Phone: [facility] Work Phone: Start: 11-22-2023 End: 80-86-0645Lgayrrf encounter procedureMD Fernanda Concepcion Work Phone: [facility] Work Phone: Start: 26-06-0006Evw-patient / Non-visitMD Fernanda Concepcion Work Phone: [facility] Work Phone: Start: 10-26-2023 End: 00-41-3971Bkbgpq outpatient visit 15 minutesFredric H Marco DO Work Phone: [address] ST GENSComment on above:Right upper quadrant pain (Primary Dx)Start: 10-23-2023 End: 74-99-7201vtlmucuuzxNB Fernnada Concepcion Work Phone: [facility] Work Phone: Start: 10-23-2023 End: 03-39-7692Senhgod encounter procedureMD Fernanda Concepcion Work Phone: [facility]Nuc [facility] [place] Work Phone: Start: 10-08-2023 End: 06-51-1964spztskfrqtKC Marcia E Braun Work Phone: [facility] Work Phone: Start: 10-08-2023 End: 49-65-6707Ejitjnd encounter procedureMD Fernanda Concepcion Work Phone: [facility]Lab [place] Work Phone: Start: 30-41-4570Zyygovpgp encounterMarcastillo Lamas [facility] ClinicStart: 09-14-2023 End: 11-64-3696mukzgjkugfEO Marcia E Braun Work Phone: [facility] Work Phone: Start: 09-14-2023 End: 02-42-7138Eztaeqs encounter procedureMD Fernanda Concepcion Work Phone: [facility]Lab [facility] Work Phone: Start: 09-13-2023 End: 75-64-5105nuzbjtdfgzCtfwac Braun Other [employer] Other Start: 27-49-3353Cqnuocqlk encounterFernanda Lamas [facility] ClinicStart: 09-05-2023 End: 31-40-6733rpszhxpdhwOW Marcia E Braun Work Phone: [facility] Work Phone: Start: 09-05-2023 End: 81-67-2982Vhoeevc encounter procedure Fernandakarin Concepcion Work Phone: [facility]-Nuc [facility] Work Phone: Start: 09-04-2023 End: 18-90-5106pznhokxwjaSyuwn Bailey Other [place] [employer] Other Start: 43-80-9640Isnywr outpatient visit 15 minutes [facility] OrthopedicsStart: 09-04-2023 End: 31-51-0722Mgjsxws encounter procedureMD Fernanda Concepcion Work Phone: [facility]XRay [facility] Start: 39-86-1875Mseunxh encounter procedureMD Fernanda Concepcion Work Phone: [facility]-Start: 08-31-2023 End: 43-75-6704abnldoqrohSL Marcia E Braun Work Phone: [facility] Work Phone: Start: 08-31-2023 End: 72-19-7460Akhfpiv encounter procedureMD Fernanda Concepcion Work Phone: [facility]Ultrasound [place] Work Phone: Start: 08-27-2023 End: 02-01-4329vquepngvkyDV Fernanda Concepcion Work Phone: [facility] Work Phone: Start: 08-27-2023 End: 12-71-1944Iqqfgbbcez RecurringMD Fernanda Concepcion Work Phone: [facility]-Physical Therapy [address]Start: 99-66-9194Lxfbjqdgvd RecurringMD Fernanda Concepcion Work Phone: [facility]-Physical Therapy [address]Start: 08-24-2023 End: 91-40-5013qasbglgrufFnplvv Braun Other [employer] Other Start: 60-24-8198Vbnahxkxw encounterFernanda Lamas [facility]tart: 08-20-2023 End: 73-00-5178bknnunghzuArbmls Braun Other [employer] Other Start: 71-32-2046Ugtmyc outpatient visit 15 minutes Fernanda Lamas [facility] ClinicStart: 08-20-2023 End: 06-37-6128Zgriutk encounter procedureMD Fernanda Concepcion Work Phone: [facility] Work Phone: Start: 08-06-2023 End: 63-01-1614wnmqfwbefjQD Marcia E Braun Work Phone: [facility] Work Phone: Start: 08-06-2023 End: 33-83-0408Evguzqz encounter procedureMD Fernanda Concepcion Work Phone: [facility]-Electrodiagnostics Work Phone: Start: 08-01-2023 End: 89-74-9929Rkkodiq encounter procedureMD Fernanda Concepcion Work Phone: [facility]-CT Scan [place] Work Phone: Start: 44-54-3560Bevgajtmuf RecurringMD Fernanda Concepcion Work Phone: [facility]-Physical Therapy [address] RdStart: 07-18-2023 End: 60-48-3663yowugaifogPsblbe Sharonda Other [facility] [employer] Other Start: 51-48-5425Kbsxkz consultation new/estab patient 60 minSherif SharondaFPG Pain ManagementStart: 07-18-2023 End: 44-26-5431Idbzfwv encounter procedureMD Fernanda Concepcion Work Phone: [facility] Work Phone: Start: 07-13-2023 End: 21-33-7164nviclojbxwJiwhjl Braun Other [facility] [employer] Other Start: 44-24-7205Ezcjxlxkc encounterMarcastillo ConcepcionJuly [facility] Hospitaltart: 07-03-2023 End: 03-85-3004qjctwztfejBgoclm Braun Other [facility] [employer] Other Start: 10-14-8440Paluhwoev encounterMarcia JameyCleveland Clinic Medina Hospital ClinicStart: 44-86-1558cnqsaptmwpGHNahun Jimenez PERRYFacility:JAREK OrtezuskyStart: 04-31-0993geiyiypysrRM-C JENNIFER E PERRYFacility:JAREK [place] Start: 06-04-2023 End: 97-52-0210jjoblipibuUempmx Braun Other [employer] Other Start: 55-44-7371Julchihiz encounterFernanda Gilliam [facility] ClinicStart: 05-31-2023 End: 83-93-2149fewgnnbfroNoqqnu Braun Other [place] [employer] Other Start: 87-16-8648Ibuueewws encounterAmecastillo Gilliam [facility] ClinicStart: 30-30-7727amdqxkksuuKN-C GIANNA Jimenez PERRYFacility:EU [place]uskyStart: 05-25-2023 End: 08-82-0567wmjzfwklokLC Marcia E Braun Work Phone: [facility] Work Phone: Start: 05-25-2023 End: 67-47-7242Rlkvgaw encounter procedureMD Fernanda Concepcion Work Phone: [facility]Lab [place] Work Phone: Start: 05-16-2023 End: 58-29-1149iwufgdlbsrHA-C GIANNA Jimenez PERRYFacility:EU [place]kyStart: 05-16-2023 End: 00-94-7227Jucfztn encounter procedureJENNIFER E EJ [facility] Start: 05-11-2023 End: 08-22-1135imqtvosxgdGpmyno Braun Other [place] [employer] Other Start: 18-50-4611Wikcygo evaluation of patient and reportFernanda Gilliam Medical ClinicStart: 82-77-8302Jsllhfydq encounter Fernanda NeliaJuly Gilliam [facility] ClinicStart: 05-09-2023 End: 21-49-0413lwpemwoucaWO-C GIANNA Jimenez PERRYFacility:EU [place]kyStart: 05-09-2023 End: 24-58-1449Kvgcmqx encounter procedureJENNIFER E EJ [facility] Start: 05-94-3176opugjnjhghDW-C JENNIFER PERRY Facility:EU [facility] HospitalueStart: 05-02-2023 End: 31-68-4745fpjxqthldcZN-C GIANNA Jimenez PERRYFacility:EU [place]kyStart: 05-02-2023 End: 76-20-1964Hybmmsy encounter procedureJENNIFER E EJ [facility] Start: 04-25-2023 End: 44-48-0055kbgzmhoaxmKA-Odalys KAPLANFacility:[facility] CentermirthayStart: 04-25-2023 End: 85-39-5574Zrbpcso encounter procedureJENNIFER E EJ [facility] Start: 04-19-2023 End: 23-74-3892burxfusgohRukjehux Mane Other [employer] Other Start: 66-07-0024Oeraqmeyg encounterBenjarani Gilliam Medical ClinicStart: 04-06-2023 End: 89-15-5723ogecevatpwHU Marcia E Braun Work Phone: [facility] Work Phone: Start: 04-06-2023 End: 06-99-7942Mavubhl encounter procedureMD Fernanda Concepcion Work Phone: [facility] [place] Work Phone: Start: 03-30-2023 End: 96-87-0431jabrkfyjzaPzzecs Braun Other [employer] Other Start: 41-84-7864Uufgujrcg for general adult medical examination without abnormal findingsMarcia BraunFPG Ball [facility] ClinicStart: 42-81-7279Kmsdwfas 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 est patient 40-64yrsMarckarin Gilliam [facility] ClinicStart: 02-23-2023 End: 72-95-7814ynsjiacdswKxlpyg Concepcion Other [employer] Other Start: 78-15-7606Hgpude outpatient visit 15 minutes Fernanda Gilliam [facility] ClinicStart: 12-25-2022 End: 52-29-5791vwlnxfdzlpCsfqzl Jamey Other [employer] Other Start: 52-67-7426Oelybfrpo encounterFernanda Gilliam [facility] ClinicStart: 12-21-2022 End: 06-56-3438wgnpvnwfgzHA FERNANDA CONCEPCIONFacility:L3Wvhny: 12-18-2022 End: 71-42-4554ekwubnbyfuMobdpl Jamey Other [employer] Other Start: 22-14-9594Cwrkew outpatient visit 25 minutes Fernanda Gilliam [facility] ClinicStart: 12-14-2022 End: 79-65-0414sjdgprrmkdCQ VIKRAM OSUNAFacility:R1Qlgra: 12-12-2022 End: 07-96-6502Azotdoo encounter procedureJENNIFER E EJ [facility] start: 12-06-2022 End: 60-90-4425vwvrtsyvnwLY FERNANDA CONCEPCIONFacility:H2Nubhw: 11-14-2022 End: 71-49-2266onsszemiiaEyetec Concepcion Other [employer] Other Start: 48-20-4876Hgmqqoz evaluation of patient and reportFernanda Gilliam [facility] ClinicStart: 46-47-2884Xkxuuebzx encounter Fernanda Gilliam [facility] ClinicStart: 11-06-2022 End: 62-58-1035cxowbzgulzJTOAZS RODRIGUEZ .[place] [employer] Other Start: 10-31-2022 End: 20-13-6898ptciznyscyVZ CATHRYN LAMBERTFacility:N1Ozqvf: 10-11-2022 End: 82-60-0012kwbqhqhxrjNbqixm Braun Other [facility] [employer] Other Start: 52-69-7331Hvyxpitiw encounterMarcastillo Lamas Mane [facility] ClinicStart: 09-28-2022 End: 40-36-5709wuagskbcunAK FERNANDA CONCEPCIONFacility:A0Gdedz: 09-20-2022 End: 9959emasmqbtxqUT Penola P Jones Work Phone: [facility] Work Phone: Start: 09-20-2022 End: 89-96-3379Muprsaymxa RecurringMD Stevan Alicia Work Phone: [facility] Work Phone: Start: 08-17-2022 End: 32-44-5448Pipujtu encounter procedureRobert Ashish HARRIS [facility] Start: 78-49-3456Fgchw health examinationBenjarani Gilliam Other [facility] [employer] Other Start: 83-03-3213Mifslourd for general adult medical examination without abnormal findingsFernanda Concepcion Other [facility] [employer] Other Start: 07-27-2022 End: 89-49-6856wlmayivurcOM MARCIA E BRAUNFacility:H0Cpgyc: 04-26-2022 End: 48-82-6662Vjsegrwf ReferredPHYSICIAN [facility] Main CampusStart: 02-78-4420yiwpbwgqtzFC FERNANDA E JAMEYFacility:K1Ithal: 58-62-0761Yjmrufipl for general adult medical examination without abnormal findingsDR MICHAEL Barbara JAMEYSteffany [place] HospitalStart: 03-28-2022 End: 59-03-7676cgvpnqmyoaGI FERNANDA Jimenez JAMEYFacility:T2Euxis: 03-28-2022 End: 89-19-1993Olvryvucz for general adult medical examination without abnormal findings FERNANDA Jimenez JAMEYFacility:E7Sdibp: 02-09-2022 End: 06-79-8720noixtjjcajKP FERNANDA Jimenez JAMEYFacility:H1 Procedures DateProcedureProcedure DetailPerforming ClinicianStart: 35-21-2145Tlhym chest X-rayFernanda Concepcion MD Work Phone: Start: 03-94-4312HY SPLINTING / CASTING / STRAPPING Markel Yanez LPNStart: 12-38-4334Zbmli foot complete minimum 3 viewsRachel L Lexis SASH INSTALLER Work Phone: Start: 67-64-7334Csvixjshpgwxjkjl antigen ceaStevan Alicia MD Work Phone: start: 51-90-0688Zhoikjpptdj tumor antigen quantitative ca 125Stevan Alicia MD Work Phone: start: 88-52-6154QGR, APT HPV,RFX 16/18,45Penorlando Alicia MD Work Phone: start: 41-06-0009GVW of headFernanda Concepcion MD Work Phone: Start: 67-98-4240D-ray of thoracic spine, three views MD Fernanda Concepcion Work Phone: Start: 67-09-9697Zwpqv dip stick/tablet rgnt non-auto w/o micrscpPenolkatie Alicia MD Work Phone: start: 33-54-2676Ajsfvfh endoscopyMD Fernanda Concepcion Work Phone: Start: 43-20-5000XrfjrsikzvyfrnurpnglpbonufQZ Marcia Braun Work Phone: Start: 98-94-6398Krwwqcscjqiu gastric emptying studyMD Fernanda Jamey Work Phone: Start: 41-08-9365Mbculwxfymay imaging of liver and/or biliary tract using radioactive isotopeMD Fernanda Concepcion Work Phone: Start: 01-11-2062Phlp fast bacilli cultureMD Fernanda Concepcion Work Phone: Start: 64-31-4779Muwgny Culture Result 2MD Fernanda Concepcion Work Phone: Start: 57-39-1509Mrfydu Culture Result 3MD Fernanda Concepcion Work Phone: Start: 72-91-5908Mgauop Culture Result 4MD Fernanda Concepcion Work Phone: Start: 71-54-8636Kjsovtgodoygt of transfusion reaction MD Fernanda Concepcion Work Phone: Start: 69-60-6290Knccwpwg culture Fernanda Concepcion Work Phone: Start: 07-45-4655Fxqcotsl SusceptibilityMD Fernanda Jamey Work Phone: Start: 33-30-0796YX bone scan whole bodyMD Fernandakarin Concepcion Work Phone: Start: 27-64-5206Jsqie X-ray of right handMD Fernanda Concepcion Work Phone: Start: 70-21-8745ZY scan of gallbladderMD Fernanda Concepcion Work Phone: Start: 36-03-8538VE of chest without contrastMD Fernanda Concepcion Work Phone: Start: 51-09-3586XO pre/post mri xrayMD Fernanda Concepcion Work Phone: Start: 72-05-6208PJC of cervical spine without contrastMD Fernanda Concepcion Work Phone: Start: 69-13-7665PjxlixlrvxAvwvhu RICE Start: 85-04-9082Ltdvuhpzrvyqqjftg with dilation of urethral strictureJENNIFER EJ Start: 04-12-1511VddyjwhxfduAaxaan RICE Start: 58-85-6189BmlieqzniuelCppswf RICE Start: 21-17-2688MoixshzvrrQuodvg RICE Start: 81-18-6311Pjzq electrosurgical excision procedureRobert RICE Start: 68-52-3794Vqqpenbd of fallopian tubeRobert RICE Start: 32-78-1876Nfyyeccffl of wisdom toothRobert RICE Screening for malignant neoplasm of colonBenjamin Ball Other Screening for osteoporosisBenjamin Ball Other Plan of Treatment DateCare ActivityDetailAuthorStart: 11-17-2025 End: 45-42-3428Cbohhbw encounter bfjiegkrm12/03/2026 1:45 PM EST Office Visit [facility] [address] [phone] Marta Hernandez, DO [address] [place] [address] [facility]Ir[facility] PulmonologyStart: 07-08-2025 End: 61-57-1183Blzjhhe encounter procedureNOMS SWS OBStart: 07-08-2025 End: 79-02-8324Srxtguocmliw / ancillary services managementNOMS SWS OBStart: 05-21-2025 End: 09-43-5951Pmbrcsh encounter /04/2025 3:30 PM EDT Office Visit [facility] [address] [place] [phone] Marta Hernandez, DO [address] [place] [address] NOMIrina [facility]RICK PULMStart: 05-19-2025 End: 52-45-3869Qjajpwj encounter urzvsjlom02/02/2025 1:00 PM EDT Office Visit [facility] [place] [facility] [address] [phone] Marta Hernandez, DO [address] [place] [address] ArrivedNOMS [place] [facility] Comment on above:ArrivedStart: 04-08-2025 End: 22-64-8326WUT Breast - bilateral screeningBilateral screening mammogram with tomosynthesis Imaging Routine Encounter for screening mammogram for malignant neoplasm of breast Expected: 04/08/2025, Expires: 09/02/2025[facility] Work Phone: comment on above:Expected: 04/08/2025, Expires: 09/02/2025Start: 03-18-2025 End: 48-42-3742Pycsaqb encounter mpnibpays06/02/2025 9:30 AM EDT Office Visit [facility] [address] [place] [phone] Cathryn Lambert DO [address] [place] [address] EDMUNDO PIÑAEVUEStart: 03-02-2025 End: 11-91-0359Qzmsxiw encounter hdpvikgyi29/16/2025 8:30 AM EDT Procedure Visit [facility] [address] [address] [place] [phone] Cathryn Lambert DO [address] [place] [address] EDMUNDO LAIRDYStart: 02-10-2025 End: 94-49-1578Nglmwzi encounter procedureNOMS KILPATRICK PULMComment on above:Arrived Start: 01-19-2025 End: 31-86-4228Birmfeo encounter rfolsdyyp46/05/2025 2:45 PM EDT Office Visit [facility] [place] [address] [place] [phone] Charles Eli, DO [address] [place] [address] NOMS ENT SANDUSKYStart: 01-15-2025 End: 90-16-5551Wmbgqza encounter vaoyjwaiu03/01/2025 3:00 PM EDT Office Visit [facility] [address] [place] [address] Marta Hernandez, DO [address] [place] [address] NOMS PULMStart: 01-12-2025 End: 68-11-7197Xpgaockf stimulating hormoneFollicle stimulating hormone Lab Routine Asymptomatic menopausal state Expected: 01/12/2025 (Approximate), Expires: 01/12/2026[facility] Work Phone: comment on above:Expected: 01/12/2025 (Approximate), Expires: 01/12/2026Start: 01-12-2025 End: 53-45-2138Lrfzeup encounter gqnkyukrd41/28/2025 9:15 AM EDT Office Visit [facility] [address] [place] [phone] Stevan Alicia MD [address] [place] [address] NOMS LENI OBStart: 01-06-2025 End: 31-53-0644Ycgfmoz encounter yqkuzfull41/22/2025 2:20 PM EDT Office Visit EDMUNDO [facility] [address] [place] [phone] Candice Palencia, ANGELICA [address] [place] [address] ArrivedANA EITANYComment on above:ArrivedStart: 01-06-2025 End: 21-56-2286SPV 2 ExtremitiesEMG 2 Extremities Neurology Routine Paresthesias Expected: 01/06/2025 (Approximate), Expires: 01/06/2026[facility] Work Phone: comment on above:Expected: 01/06/2025 (Approximate), Expires: 01/06/2026Start: 01-05-2025 End: 91-83-6522Trygoan encounter /21/2025 9:15 AM EDT Office Visit [facility] [address] [place] [phone] Stevan Alicia MD [address] [place] [address] [facility] OBStart: 01-05-2025 End: 29-31-3396Rxxpdflefuya / ancillary services qmccprpyww58/21/2025 8:30 AM EDT Ancillary Procedure [facility] [address] [place] [address] [facility] OBStart: 01-01-2025 End: 37-79-7218Btkklnd encounter /17/2025 2:00 PM EDT Office Visit [facility] [address] [place] [phone] Marta Hernandez DO [address] [place] [address] NOMS PULMStart: 87-37-6484Ytllvjx [facility] Work Phone: Start: 11-14-2024 End: 62-44-7112Xkamjue encounter rlvilamky09/28/2025 9:35 AM EST Office Visit [facility] [address] [place] [address] Benny Connie Katie, FIXTURE MAKER-HAMMER SMITH [address] [place] [address] [facility] DERMStart: 08-19-2024 End: 97-64-7501BjqbdetoeAshtabula General Hospitaltart: 11-20-4462OhcqragkpAshtabula General Hospitaltart: 86-71-9299BmwjsajwyAshtabula General Hospitaltart: 08-11-2024 End: 86-55-0815BJ Chest WO contrastCT chest wo IV contrast Imaging Routine Chronic obstructive pulmonary disease, unspecified COPD type (CMS/HCC) Expected: 08/11/2024, Expires: 07/01/2025[facility] Work Phone: comment on above:Expected: 08/11/2024, Expires: 07/01/2025Start: 52-12-4606BvgbbtvklAshtabula General Hospitaltart: 08-08-2024 [facility] Hospitaltart: 72-39-4882Dtxesghqex free [Mass/volume] in Serum or PlasmaAshtabula General Hospitaltart: 07-17-2024 End: 92-81-1477Cxzkund encounter ehtxcwvpl65/31/2024 8:15 AM EDT Office Visit [facility] [address] [place] [phone] Stevan Alicia MD [address] [place] [address] [facility] OBStart: 07-03-2024 End: 38-19-2378Ixurwfs encounter uhiieqppu71/17/2024 2:45 PM EDT Office Visit [facility] [address] [place] [address] Stevan Alicia MD [address] [place], [place] [phone] [facility]: 07-03-2024 End: 91-16-7517Nzmgyuvjdmiyz metabolic 2000 panel - Serum or PlasmaComprehensive metabolic panel Lab Routine Amenorrhea Expected: 07/03/2024 (Approximate), Expires: 07/03/2025NOM[facility] HealthcareComment on above:Expected: 07/03/2024 (Approximate), Expires: 07/03/2025Start: 07-03-2024 End: 60-89-3112Dddkstfn stimulating hormoneFollicle stimulating hormone Lab Routine Amenorrhea Thyroid disorder screening Expected: 07/03/2024(Approximate), Expires: 07/03/2025N[facility] HealthcareComment on above:Expected: 07/03/2024 (Approximate), Expires: 07/03/2025Start: 07-03-2024 End: 32-19-1872Yjnng 1996 panel - Serum or PlasmaLipid panel Lab Routine Amenorrhea Expected: 07/03/2024 (Approximate), Expires: 07/03/2025N[facility] HealthcareComment on above:Expected: 07/03/2024 (Approximate), Expires: 07/03/2025Start: 07-03-2024 End: 45-55-8630Mnybwqhuzuya / ancillary services ebmkgcwdse67/17/2024 2:00 PM EDT Ancillary Procedure [facility] [address] [place] [address] [phone] SWS OBStart: 07-03-2024 End: 12-36-5332Eqznqds D 1,25 dihydroxyVitamin D 1,25 dihydroxy Lab Routine Amenorrhea Expected: 07/03/2024 (Approximate), Expires: 07/03/2025[facility] HealthcareComment on above:Expected: 07/03/2024 (Approximate), Expires: 07/03/2025Start: 07-01-2024 End: 16-86-9691Gcqczmk encounter wvhywgqtw53/15/2024 3:15 PM EDT Office Visit [facility] [address] [place] [address] Marta Hernandez DO [address] [place] [address] [facility]NOPERSH[facility] PULMComment on above:ArrivedStart: 03-17-2024 [facility]tart: 79-54-5686NxcytdlsuAshtabula General Hospitaltart: 12-20-2023 End: 57-33-8745Njnkzop encounter ravcvnjjv38/04/2024 3:45 PM EDT Office Visit [facility] [address] [place] [address] Marta Hernandez, [address] [place] [address] [facility] PULMStart: 12-12-2023 End: 31-86-3279Wwtsqhd encounter vxbeoubup16/27/2024 9:45 AM EDT Office Visit [facility] [address] [place] [phone] Stevan Alicia MD [address] [place] [address] [facility] OBStart: 12-12-2023 End: 59-89-7542Jjbigrqzbvec / ancillary services luvilygtrc20/27/2024 8:30 AM EDT Ancillary Procedure [facility] [address] [place] [address] [facility] OBStart: 11-13-2023 End: 84-00-1443Sorrjsm encounter juxrdyict28/27/2024 9:25 AM EST Office Visit [facility] [address] [place] [phone] Connie Zapata, [employer] MAKER-RADHA [address] [place] [address] [facility] DERMStart: 84-33-1312Xtysomkrlbso imaging of liver and/or biliary tract using radioactive isotopeNM hepatobiliary w pharmOhiohealth Grant Medical Center CenterStart: 23-18-1692QipkyhfhoAshtabula General Hospitaltart: 08-77-0628Tnrz Fast Bacilli Culture & SmearAcid Fast Bacilli Culture & SmearAshtabula General Hospitaltart: 93-63-1751Kaosid Culture Result 1Fungal Culture Result [address] [place], [place] [address]tart: 51-27-0848Uyfhegwi CultureMycology CultureUniversity Hospitals Lake West Medical Center Start: 67-78-7356Qpdyiciq cultureFungal Culture Result 1FMercer County Community Hospitaltart: 40-19-2518Vfamnfgdw culture of sputumAshtabula General Hospitaltart: 46-20-0392BwizuvwxgAshtabula General Hospitaltart: 52-11-7405WZ bone scan whole bodyNM bone scan whole bodyAshtabula General Hospitaltart: 50-84-0373KtgayekmdAshtabula General Hospitaltart: 86-73-1082IesrxincdAshtabula General Hospitaltart: 65-52-7564BwbcpzdqtAshtabula General Hospitaltart: 36-42-4588NtmohoxprAshtabula General Hospitaltart: 62-75-3006GuounryqqAshtabula General Hospitaltart: 60-10-3488TjsknxrgyUniversity Hospitals Lake West Medical CenterBacteria identified in Unspecified specimen by Aerobe culture [facility] Medical CenterCBC panel - Blood by Automated countCBC Lab Routine Amenorrhea Ordered: 07/03/2024[facility] HealthcareComment on above:Ordered: 07/03/2024efuroxime free [Mass/volume] in Serum or [facility] HospitalComprehensive metabolic 2000 panel - [facility] or [facility] HospitalEndomysial antibody IgA levelUniversity Hospitals Lake West Medical CenterEstradiolEstradiol Lab Routine Amenorrhea Ordered: 07/03/2024[facility] HealthcareComment on above:Ordered: 07/03/2024Ferritin [Mass/volume] in Serum or [facility] HospitalFungus identified in Unspecified specimen by [facility]rington HospitalGliadin peptide IgA Ab [Units/volume] in [facility] HospitalGliadin peptide IgG Ab [Units/volume] in [facility] HospitalHSV NAAHSV CATRACHITO Lab Routine Vaginal discharge Ordered: 07/03/2024[facility] HealthcareComment on above: Ordered: 07/03/2024IgA [Mass/volume] in Serum or [facility] HospitalMayo miscellaneous testMayo miscellaneous test Lab Routine Vaginal discharge Ordered: 07/03/2024[facility] HealthcareComment on above:Ordered: 07/03/2024Microscopic observation [Identifier] in Unspecified specimen by Gram stainUniversity Hospitals Lake West Medical CenterMicroscopic observation [Identifier] in Unspecified specimen by SmearUniversity Hospitals Lake West Medical CenterMycobacterium sp identified in Unspecified specimen by Organism specific cultureUniversity Hospitals Lake West Medical CenterNuSwab Vaginitis Plus (VG+)NuSwab Vaginitis Plus (VG+) Microbiology Routine Vaginal discharge Ordered: 07/03/2024[facility] HealthcareComment on above:Ordered: 07/03/2024atient EducationColon polyps Hemorrhoids (DC) Gastritis (DC) Know your [facility] Work Phone: [facility]Western [facility] Hospital Work Phone: SENDOUT TEST MISCELLANEOUS LABCORPSENDOUT TEST MISCELLANEOUS [facility]P Lab Routine Screening for malignant neoplasm of cervix Encounterfor gynecological examination without abnormal finding Ordered: 07/03/2024[facility] HealthcareComment on above:Ordered: 07/03/2024Tissue transglutaminase IgA Ab [Units/volume] in [facility] Tissue transglutaminase IgG Ab [Units/volume] in [facility] HospitalXR Cervical spine 3 [facility] Foot - right GE 3 [facility] Knee - right 4 [facility] Thoracic spine 3 [facility] Immunizations Immunization DateImmunizationNotesCare JyxhwvcpKipblrxo66-56-2187qlixxfiaz virus vaccine, split virus (incl. purified surface antigen)Charles Gilliam Other [employer] Other [id number] virus vaccine, unspecified formulationRobert RICE [facility] Jhokapsv90-64-1802Ryvmfskdn, injectable, Madin Harrison Canine Kidney, preservative free, quadrivalentFredric Itzagustín DO Work Phone: [facility] CenterSjtcxdpubb98-09-5815jwutdusvb virus vaccine, split virus (incl. purified surface antigen)Charles Ball Other [facility] [employer] Other [id number] virus vaccine, unspecified formulationRobert RICE [facility]08-30-2021influenza, injectable, quadrivalent, preservative freeFredric Itzkowitz DO Work Phone: [facility] CenterVmpjtnfkhi23-31-0261rvufzcs toxoid, reduced diphtheria toxoid, and acellular pertussis vaccine, adsorbedRobert RICE [facility]09-24-2019influenza virus vaccine, unspecified formulationRobert RICE [facility]09-24-2019influenza, injectable, quadrivalent, preservative freeFredric Itzkowitz DO Work Phone: [facility] CenterHpdkzffdtk13-06-4986jkndpsfzm virus vaccine, unspecified formulationRobert RICE [facility] [place] 728772-15-2018Influenza, injectable, Madin Aleena Canine Kidney, preservative free, quadrivalentFredric Itzkowitz DO Work Phone: [facility] CenterPbemaennql93-95-2684xkjecdlba, injectable, quadrivalent, preservative freeFredric Itzkowitz DO Work Phone: [facility] CenterIdxdgrojtv72-46-7482kgypqwqvr virus vaccine, unspecified formulationRobert RICE [facility] [place] 728770-04-2016influenza, injectable, quadrivalent, preservative freeFredric Itzkowitz DO Work Phone: [facility] Lzhqlxgshr67-40-2757cfpipqw and diphtheria toxoids, adsorbed, preservative free, for adult use (5 Lf of tetanus toxoid and 2 Lf of diphtheria toxoid)Charles Gilliam Other [facility] Payers DatePayer CategoryPayerPolicy [id number] [employer] [id number] 2021-Present [address] [place] [id number] 2021Medicaid (Managed Care)[employer] [employer] [id number] 2..1.395850.3.57[id number] 2..1.467869.3.57[id number] 2..1.546360.3.579.2.22765-18-4091Ldltyec6996973 2..1.289973.3.57[id number] 2..1.091164.3.57[id number] 2.16.840.1.751980.3.579.2.17432-70-8761Ukifija5223708 2.16.840.1.323978.3.579.2.43713-38-3781Xkrfvry0668125 2.16.840.1.419200.3.579.2.76810-10-4566Rctfjjw7715226 2.16.840.1.607284.3.579.2.87047-76-2099Zdyxmsd3733720 2.840.1.779078.3.579.2.40929-33-0068Ubzdkkj22074853 2.840.1.876073.3.57[id number] 2.840.1.096424.3.57[id number] 2.840.1.568310.3.579.2.31366-66-5809Aaeiuqa84504248 2.840.1.522607.3.57[id number] 2.840.1.140801.3.57[id number] 2.840.1.436309.3.579.2.27500-25-9524Yvxgmpj79712691 2..840.1.883287.3.579.2.47624-60-6858Ydeclkz12550100 2.840.1.406499.3.579.2.72143-16-5665Cmaccmf09252915 2..840.1.138745.3.579.2.44095-04-7646Relfbkc76740290 2.16840.1.137606.3.579.2.79793-82-7165Ukdgjbd23720972 2..840.1.076241.3.579.2.012865-64-1914Dmwibxv31438555 2.16.840.1.458510.3.579.2.363150-33-9879Kwbgrfh86167782 2..0.1.080497.3.579.2.400825-19-7156Mhjrmuf56831705 2..840.1.925057.3.579.2.044360-49-5849Rfancls0013459 2.0.1.060278.3.579.2.085929-60-5335Fjtgsfo8933902 2.0.1.766473.3.579.2.713332-58-7534Bqormff0208482 2.0.1.282799.3.579.2.182104-41-7612Optxeib6166759 2.0.1.600251.3.579.2.205381-87-1451Jeplwpt6801714 2.0.1.884306.3.579.2.950206-58-1122Sbsqpxm3496451 2.0.1.534856.3.579.2.1259 [id number]t-[id number] [id number] i2l69k89-2yz8-6o40-39dn-63786x17fq5vJoxjbqm85005834 2.16.840.1.142140.3.579.2.673Kcmcdol60332843 2.840.1.691258.3.579.2.531 [id number] 2.840.1.797664.3.579.2.201Irlnxcr90114785 2.16.840.1.863503.3.579.2.405Imjnfot76552801 2.16.840.1.030926.3.579.2.531 Ibmieoi02975462 2.16.840.1.048930.3.579.2.201Hoascer04215395 2.16.840.1.764271.3.579.2.531 Social History DateTypeDetailFacilityStart: 78-41-3457Orcnrcr smoking status NHISCurrent some day smokerAshtabula General Hospitaltart: 19-87-1831Pmc Assigned At [facility] Hospitaltart: 07-18-2022 End: 20-44-7804Zntaqdj smoking status NHISSmoker (finding)[facility] Hospitaltart: 08-09-2022 End: 24-06-4621Qhtbqwd smoking statusLight tobacco smoker (finding)[facility] BellevueStart: 10-11-2023 End: 30-84-5580Kkd Assigned At [facility] HospitalTobacco smoking statusNeverExec[facility] [place] Start: 06-14-2023 End: 48-63-4860Poywulo smoking status NHISSmokes tobacco dailyNOMS Healthcare History of tobacco useCigarette SmokerNOMS HealthcareStart: 06-14-2023 End: 06-82-1969Rvufirnqcb smoked current (pack per day) - Zlxqksaq7YORI HealthcareStart: 06-14-2023 End: 02-53-8926Efsjwyt use and exposureSmokeless tobacco non-userNOMS Healthcare Start: 10-11-2023 End: 23-11-0672Kbiqbsy intakeLifetime non-drinker (finding)[facility] HealthcareStart: 50-98-3277Ukvohxrwz15EKUM HealthcareStart: 62-89-0958Aegdtvd Commentcaffeine intake: 2-3 cups per day of coffee, soda/popNOMS HealthcareStart: 74-50-7382Hla Assigned At BirthNot on [facility] HealthcareStart: 08-04-2024 End: 40-82-8714YejLkotio (finding)[facility] Medical CenterNEGATED: Highlighted [facility] Medical Equipment Procedure CodeEquipment CodeEquipment Original TextEquipment IdentifierDates Capsule endoscopy, for patency of lumen evaluationVideo capsule endoscopy system ()[id number] FDAStart: 03-17-2024 Goals DatePatient GoalDesired Activity/State Functional Status RqmlEztpmpstqtTymtmxGsxpxdgy59-07-6196Kjngvsmqpc StatusMercy Memorial Hospital06-28-2024Functional StatusMercy Memorial Hospital05-15-2024 Functional StatusN/AFSt. [facility]08-30-2023Functional StatusN/A [facility]08-23-2023Functional StatusN/AExec[facility] of [facility]08-16-2023 Functional StatusN/AExec[facility] of [facility] 20-31-0541Nyraubscvj StatusN/AExec[facility] of St[facility]03-28-2023Functional StatusN/A[facility]12-01-2022Functional StatusN/AExec[facility] of [facility] Clinical Notes 07-19-2018 to 06-08-2025 Note Date & WwfqLkybVyimujgq45-00-8355 Telephone encounter Note* Telephone Encounter - Debbi Keller LPN - 06/08/2025 10:32 AM EDT asking for refill of Iron polysaccharides 180 mg REMY 01/12/25 last CBC 07/03/24 Hgb 11.1, Hct 33.7 [facility] CenterXfmmenpuft40-27-0971 Miscellaneous Notes* Telephone Encounter - Debbi Keller LPN - 06/08/2025 10:32 AM EDT asking for refill of Iron polysaccharides 180 mg REMY 01/12/25 last CBC 07/03/24 Hgb 11.1, Hct 33.7 documented in this encounterMissouri Rehabilitation CenterZmlqnrlwnf49-55-9277 History of Present illness Narrative* Marta Hernandez, [...] sinus drainage and does currently use an scqt-oke-itkqqwm antihistamine. Also since her last office visit [...] Bipolar II disorder (HCC) 07/18/2023 Bowel obstruction ([facility]) 1994 Chicken pox Chronic allergic rhinitis 07/18/2023 Chronic maxillary sinusitis Chronic vaginitis 07/18/2023 SANGITA I (cervical intraepithelial neoplasia I) 07/18/2023 Contusion of right foot 12/28/2023 COPD (chronic obstructive pulmonary disease) ([facility]) De Quervain's tenosynovitis, right 12/28/2023 Depression Dysmenorrhea [...] incontinence 07/18/2023 Peroneal tendinitis, right leg 12/28/2023 ([facility]) x2 Raynaud's syndrome Restless leg syndrome 12/28/2023 [...] COPD. Marta Hernandez DO documented in this encounterMissouri Rehabilitation CenterTddbxdpurd07-21-4353 Evaluation note* Diagnosis Onset Date Resolution Status Admit Date 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 ne acuteAugust 2024 10:10amBack pain, thoracicacuteAugust 2024 10:10am Chronic painacuteAugust 2024 10:10amAllodyniaacuteOctober 2024 10:25amDegenerative disc disease, cervicalacuteOctober 2024 10:25am InsomniaacuteOctober 2024 10:25amMigraine headache without auraacute July 06, 2025 10:25amMyalgiaacuteOctober 2024 10:25amNeck painacute July 06, 2025 10:25amParesthesiaacuteOctober 2024 10:25am [facility] Work Phone: 1(418) 368-789508-06-2025 Evaluation note* Diagnosis Onset Date Resolution Status [...] 9:58amTrigger finger, right index fingeracuteOctober 2024 9:58am [facility] Work Phone: 1(190) 339-549108-06-2025 Evaluation note* Diagnosis Onset Date Resolution Status [...] pain, thoracicacuteOctober 2024 10:13amChronic painacuteOctober 2024 10:13am [facility] Work Phone: 1(786) 279-337708-06-2025 Evaluation note* Diagnosis Onset Date Resolution Status [...] medial knee painacute July 17, 2025 9:11am [facility] Work Phone: 1(958) 212-721405-27-2025 History of Present illness Narrative* Marta Hernandez, [...] blood work has been ordered by the event set up specialist. At her recent appointment she states all [...] for wheezing, Disp: 18 g, Rfl: 11 Wewrndshztt-Wfcuggulw-Uyoofg (Trelegy Ellipta) 100-62.5-25 MCG/ACT aerosol powder , Inhale 1 puff Daily, Disp: 1 each, Rfl: 5 Past Medical History: Past Medical History: Diagnosis Date Abdominal pain 12/28/2023 Abnormal Pap smear of vagina Abnormal weight loss Adult celiac disease (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) 07/18/2023 Bowel obstruction ([facility]) 1995 Chicken pox Chronic allergic rhinitis 07/18/2023 Chronic maxillary sinusitis Chronic vaginitis 07/18/2023 SANGITA I (cervical intraepithelial neoplasia I) 07/18/2023 Contusion of right foot 12/28/2023 COPD (chronic obstructive pulmonary disease) ([facility]) De Quervain's tenosynovitis, right 12/28/2023 Depression ([facility]) Dysmenorrhea 07/18/2023 Endometriosis of uterus 08/04/2009 Foot fracture, right 2019 broken right foot Genital herpes simplex 09/22/2009 GERD (gastroesophageal reflux disease) H/O tubal ligation 2009 Headache History of medical problems routine blood donor- every 56 days per pt History of medical treatment 2000 diagnostic lap History of menorrhagia 12/28/2023 HSV-2 infection Hypertension ([facility]) Insomnia, persistent 12/28/2023 Iron deficiency [...] Chronic obstructive pulmonary disease, unspecified COPD type ([facility]) - albuterol HFA (ProAir HFA) 90 mcg/act inhaler; Inhale 2 puffs every 4 (four) hours if needed for wheezing - Zriogjnoviy-Offldlyvg-Msjuap (Trelegy Ellipta) 100-62.5-25 MCG/ACT aerosol powder ; [...] COPD. Marta Hernandez DO documented in this encounterMissouri Rehabilitation CenterRkiaxoaluh26-96-8890 Evaluation note* Diagnosis Onset Date Resolution Status [...] painacuteJuly 2024 9:41amToe pain, leftacuteJuly 2024 9:41am [facility] Work Phone: 1(653) 501-351105-23-2025 Evaluation note* Diagnosis Onset Date Resolution Status [...] leftacuteJuly 2024 9:41amRight foot painacuteJuly 2024 8:24am [facility] Work Phone: 1(429) 659-407505-23-2025 Evaluation note* Diagnosis Onset Date Resolution Status [...] of cervical spineacuteAugust 2024 10:10amBack pain, thoracicacute [place] 2024 10:10amChronic painacuteAugust 2024 10:10am [facility] Work Phone: 1(946) 637-155305-23-2025 Progress noteUnNortheast [facility] [place] [address] Cancer Center Note Signed Patient: Katy Banuelos MR#: [id number] : 1975 Acct:[id number] Age/Sex: 50 / F Type: DEP AMB [...] 1 week prior to 6month visit with SASH INSTALLER. CHEMO PLAN Treatment Plan Iron Sucrose (Venofer) [...] Home Medications - Last Reconciled 02/06/25 by LILLINA Haynes acyclovir 400 mg PO alprazolam 1 [...] mg PO BID PRN 30 days vitamin L54-usbxc acid 0.5-1 mg 1 tab PO DAILY Gastrointestinal Is the patient taking opioids for pain control?: No [place] Precaution Measures Taken: Patient in chair Nurse's Note: Patient is here today for a follow up visit and go over labs [facility] Medical History Medical History Raynauds disease [...] Mary DD/ 0858 Signed By: 02/06/25 0948 [facility]05-02-2025 History of Present illness Narrative * Markel [...] boot. Ref # [id number] documented in this encounterMissouri Rehabilitation CenterQohndbylum10-62-7215 History of Present illness Narrative* Stevan Alicia [...] though her weight is currently stable. Her silk screen frame assembler has noted that she chakraborty calories easily. [...] vagina Abnormal weight loss Adult celiac disease (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) 07/18/2023 Bowel obstruction ([facility]) 1995 Chicken pox Chronic allergic rhinitis 07/18/2023 Chronic maxillary sinusitis Chronic vaginitis 07/18/2023 SANGITA I (cervical intraepithelial neoplasia I) 07/18/2023 Contusion of right foot 12/28/2023 COPD (chronic obstructive pulmonary disease) ([facility]) De Quervain's tenosynovitis, right 12/28/2023 Depression ([facility]) Dysmenorrhea 07/18/2023 Endometriosis of uterus 08/04/2009 Foot fracture, right 2019 broken right foot Genital herpes simplex 09/22/2009 GERD (gastroesophageal reflux disease) H/O tubal ligation 2008 Headache History of medical problems routine blood donor- every 56 days per pt History of medical treatment 2000 diagnostic lap History of menorrhagia 12/28/2023 HSV-2 infection Hypertension ([facility]) Insomnia, persistent 12/28/2023 Iron deficiency [...] steps yesterday). Valtrex refilled documented in this encounterMissouri Rehabilitation CenterUwbbmfecvq69-48-8050 Instructions* Patient Instructions* Stevan Alicia MD - [...] cyst is slightly larger documented in this [facility]04-11-2025 Evaluation note* Diagnosis Onset Date Resolution [...] 7:59amMyalgiaacuteJune 2024 7:59amOther skin changesacuteJune 2024 11:29am [facility] Work Phone: 1([phone]) [phone] Evaluation note* Diagnosis Onset Date Resolution Status [...] 2024 10:08amChronic painacuteJuly 2024 10:08amMyalgiaacuteJuly 2024 10:08am [facility] Work Phone: 1([phone]) 542-968103-27-2025 Evaluation note* Diagnosis Onset Date Resolution Status [...] 2024 8:56am Iron deficiency anemiachronicMay 2024 8:56am [facility] Work Phone: 1(825) 424-321303-27-2025 Evaluation note* Diagnosis Onset Date Resolution Status [...] 2024 7:59amChronic painacuteJune 2024 7:59amMyalgiaacuteJune 2024 7:59am [facility] Work Phone: 1([phone]) 592-504702-28-2025 Evaluation note* Diagnosis Onset Date Resolution Status [...] painacuteApril 2024 9:40amToe pain, leftacuteApril 2024 9:40am [facility] Work Phone: 1(453) 901-656001-17-2025 Evaluation note* Diagnosis Onset Date Resolution Status Admit Date Arthritis of carpometacarpal (CMC) joint of right thumb acuteJanuary 2024 8:56amArthritis of right handacuteJanuary 2024 8:56amDe Quervain's tenosynovitis, rightacuteJanuary 2024 8:56amRight wrist painacuteJanuary 2024 8:56amArthritis of carpometacarpal (CMC) joint of right thumbacuteFebruary 2024 9:18amArthritis of right handacute November 14, 2024 9:18amDe Quervain's tenosynovitis, rightacuteFebruary 2024 9:18amRight wrist painacuteFebruary 2024 9:18am [facility] Work Phone: 1([phone]) 811-209701-17-2025 Evaluation note* Diagnosis Onset Date Resolution Status [...] December 26, 2024 9:40amToe pain, leftacuteApr2024 9:40am [facility] Work Phone: [phone]) 482-819810-31-2024 History of Present illness Narrative* Lise Benavides [...] Pap smear of vagina Adult celiac disease (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) 07/18/2023 Bowel obstruction ([facility]) 1995 Chicken pox Chronic allergic rhinitis 07/18/2023 Chronic maxillary sinusitis Chronic vaginitis 07/18/2023 SANGITA I (cervical intraepithelial neoplasia I) 07/18/2023 Contusion of right foot 12/28/2023 De Quervain's tenosynovitis, right 12/28/2023 Depression ([facility]) Dysmenorrhea 07/18/2023 Endometriosis of uterus 08/04/2009 Foot fracture, right 2019 broken right foot Genital herpes simplex 09/22/2009 H/O tubal ligation 2009 Headache History of medical problems routine blood donor- every 56 days per pt History of medical treatment 2000 diagnostic lap History of menorrhagia 12/28/2023 HSV-2 infection Hypertension ([facility]) Insomnia, persistent 12/28/2023 Iron deficiency [...] and insomina. [facility] sent. documented in this encounterMissouri Rehabilitation [id number] Instructions* Patient Instructions* Stevan Alicia MD - 07/17/2024 8:15 AM EDT Images from the original note were not included. documented in this [facility]10-28-2024 Telephone encounter Note* Telephone Encounter - Elvia Wheatley - 07/14/2024 10:11 AM EDT . [place] Rehabilitation [id number] Miscellaneous Notes* Telephone Encounter - Elvia Wheatley - 07/14/2024 10:11 AM EDT . documented in this [facility]10-24-2024 History of Present illness Narrative* Stevan Alicia MD - 07/10/2024 2:39 PM EDT Positive culture documented in this [facility]10-17-2024 History of Present illness Narrative* Stevan [...] of colonoscopy and was referred to a global expansion sales director for a vein-like issue near the anal area. The global expansion sales director advised her to leave it alone. [...] and experiences was provided. RT ovary cyst- [id number] 1.3 [id number] 1.6 LT ovary cyst- [id number] 1.2 [id number] 1.06 See chart for report. Visit Vitals [...] Pap smear of vagina Adult celiac disease (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) 07/18/2023 Bowel obstruction ([facility]) 1995 Chicken pox Chronic allergic rhinitis 07/18/2023 Chronic maxillary sinusitis Chronic vaginitis 07/18/2023 SANGITA I (cervical intraepithelial neoplasia I) 07/18/2023 Contusion of right foot 12/28/2023 De Quervain's tenosynovitis, right 12/28/2023 Depression ([facility]) Dysmenorrhea 07/18/2023 Endometriosis of uterus 08/04/2009 Foot fracture, right 2019 broken right foot Genital herpes simplex 09/22/2009 H/O tubal ligation 2009 Headache History of medical problems routine blood donor- every 56 days per pt History of medical treatment 2000 diagnostic lap History of menorrhagia 12/28/2023 HSV-2 infection Hypertension ([facility]) Insomnia, persistent 12/28/2023 Iron deficiency anemia 12/28/2023 Menorrhagia with irregular cycle 07/18/2023 Migraine ([facility]) Mixed incontinence 06/30/2024 Mixed stress [...] cysts: - Multiple ovarian cysts with dimensions: [id number], [id number], 1x1o2sc, and a larger cyst measuring 35d59kf - Plan: a) Monitor the size and [...] or irregular menstrual bleeding. documented in this encounterMissouri Rehabilitation [id number] History of Present illness Narrative* Marta Hernandez, [...] Pap smear of vagina Adult celiac disease (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) 07/18/2023 Bowel obstruction ([facility]) 1994 Chicken pox Chronic allergic rhinitis 07/18/2023 Chronic maxillary sinusitis Chronic vaginitis 07/18/2023 SANGITA I (cervical intraepithelial neoplasia I) 07/18/2023 Contusion of right foot 12/28/2023 De Quervain's tenosynovitis, right 12/28/2023 Depression ([facility]) Dysmenorrhea 07/18/2023 Endometriosis of uterus 08/04/2009 Foot fracture, right 2019 broken right foot Genital herpes simplex 09/22/2009 H/O tubal ligation 2008 Headache History of medical problems routine blood donor- every 56 days per pt History of medical treatment 2000 diagnostic lap History of menorrhagia 12/28/2023 HSV-2 infection Hypertension ([facility]) Insomnia, persistent 12/28/2023 Iron deficiency anemia 12/28/2023 Menorrhagia with irregular cycle 07/18/2023 Migraine ([facility]) Mixed incontinence 06/30/2024 Mixed stress [...] Chronic obstructive pulmonary disease, unspecified COPD type ([facility]) - tiotropium (Spiriva Respimat) 2.5 MCG/ACT inhaler; [...] COPD. Marta Hernandez DO documented in this encounterMissouri Rehabilitation [id number] Evaluation note* Diagnosis Onset Date Resolution Status [...] joint)acuteOctober 2023 8:37amBlood donorchronicNovember 2023 10:22amHistory of menorrhagiachronicNovdignity health [facility] 2023 10:22amIron deficiency anemiachronicNovdignity health [facility] 2023 10:22am Restless leg syndromechronicNew [facility] 2023 10:22am [facility] Work Phone: [phone]) [phone] Evaluation note* Author Spencer Valadez [facility] CenterAuthoredApril 2023 11:28am48 y/o female referred to the GI clinic for evaluation of abdominal pain. Patient reports intermittent upper abdominal pain and bloating for 2-3 years. + iron deficiency anemia on iron supplementation for 3 years. + NSAIDs use + early satiety Will arrange for EGD/Colonoscopy then will determine the need to increase omeprazole 40 mg daily [facility] Work Phone: 1([phone]) 604-466502-09-2024 History of Present illness Narrative* Dio Lara, [...] 07/18/2023 Allergies Anemia Anxiety Bipolar II disorder ([facility]) 07/18/2023 Bowel obstruction ([facility]) 1995 Chicken pox Chronic allergic rhinitis 07/18/2023 Chronic maxillary sinusitis Chronic vaginitis 07/18/2023 SANGITA I (cervical intraepithelial neoplasia I) 07/18/2023 Depression ([facility]) Dysmenorrhea 07/18/2023 Endometriosis of uterus 08/04/2009 Foot fracture, right 2019 broken right foot Genital herpes simplex 09/22/2009 H/O tubal ligation 2008 Headache History of medical problems routine blood donor- every 56 days per pt History of medical treatment 2000 diagnostic lap HSV-2 infection Hypertension ([facility]) Menorrhagia with irregular cycle 07/18/2023 Migraine ([facility]) Mixed stress and urge incontinence [...] I'll see her PRN. documented in this encounterMissouri Rehabilitation [id number] Evaluation note* Encounter Date Diagnosis Assessment Notes Treatment Notes Treatment Clinical Notes Aug, Adenomyosis, gallbladder (ICD-10 - K82.8) Aug,RUQ pain (ICD-10 - R10.11) [facility] Other 12-19-2023 Evaluation note* Encounter Date Diagnosis [...] follow up in 4 weeks for reevaluation. [facility] Other 12-04-2023 Evaluation note* Encounter Date Diagnosis [...] dentist info given to pt. OARRS reviewed. [facility] Other 11-01-2023 Evaluation note* Encounter Date Diagnosis [...] pain (ICD-10 - G89.29) UDS performed through [facility] today, will await confirmatory results. Jul,OtherMedical decision [...] negative findings were considered in medical decision-making. 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 You can also purchase gzmb-caa-fzjdjkp medicines. Medicines may have nicotine in them [...] and encouragement. Call telephone quitlines, such as 6-588-FLHE-NOW, reach out to support groups, or work [...] provider. Document Revised: 08/25/2022 Document Reviewed: 08/25/2022 [employer] Patient Education 2022 [employer]. 05/16/2023 09:22:48 Kegel Exercises Kegel Exercises Kegel [...] provider. Document Revised: 01/12/2022 Document Reviewed: 01/12/2022 [employer] Patient Education 2022 [employer]. Follow Up Care 04/17/2023 08:34:14 With:GIANNA KAPLAN PA-C, URL Address: [facility] 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 Document Revised: 01/12/2022 Document Reviewed: 01/12/2022 [employer] Patient Education 2022 [employer]. 05/02/2023 10:42:42 Urinary Incontinence Urinary Incontinence Urinary [...] nerve stimulation). ?For women, using a medical lab scientist to prevent urine leaks. This is a [...] right after experiencing incontinence. General instructions Take kvph-caj-hcpmeer and prescription medicines only as told by [...] important. Where to find more information National [place] of Diabetes and Digestive and Kidney Diseases: www.niddk.nih.gov [employer]: www.urologyhealth.org Contact a health care [...] provider. Document Revised: 04/08/2021 Document Reviewed: 04/08/2021 [employer] Patient Education 2022 [employer]. Follow Up Care 04/17/2023 08:30:21 With:EJ ELLIS, GIANNA Jimenez, URL Address: [address] [place] [address] [phone] When: Unknown Comments:PFPT #3 on 05/09/23 [facility] 08-09-2023 Hospital Discharge instructions Patient [...] relieve pelvic muscle tension or spasms. Take zraz-xcm-csxugux and prescription medicines only as told by [...] provider. Document Revised: 01/11/2022 Document Reviewed: 01/11/2022 [employer] Patient Education 2022 [employer]. Follow Up Care 04/17/2023 08:27:59 With:EJ ELLIS, GIANNA Jimenez, URL Address: [address] [place] [place] [address] [phone] When: Unknown Comments:PFPT #2 on 05/02/[address] [facility] 07-14-2023 Evaluation note* Encounter Date Diagnosis Assessment [...] states it is stable on present med [facility] Other 06-09-2023 Evaluation note* Encounter Date Diagnosis Assessment Notes Treatment Notes Treatment Clinical Notes Feb, Right-sided chest pain (ICD-10 - R07.9) Pt concerned about cardio and pulm causes. Vitals are stable will recheck with test ordered. 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 Refilled med Feb,hronic cough (ICD-10 - R05.3)Refilled med. [facility] Other 04-03-2023 Evaluation note* Encounter Date Diagnosis [...] smoking, benefits to quiting and options available [facility] Other 02-28-2023 Evaluation note* Encounter Date Diagnosis Assessment Notes Treatment Notes Treatment Clinical Notes Oct, Seasonal allergic rhinitis, unsp ecified trigger (ICD-10 - J30.2) [facility] Other 01-04-2023 Progress note Author Jana Ridley [facility] September 20, 2022 4:41pmNote Date/TimeJan2022 11:53[facility] at [address] [address] Hem/Onc Follow Up Note - OP Signed Patient: Katy Banuelos MR#: [id number] : 1975 Acct:[id number] Age/Sex: 47 / F Type: REG RCR Copies to: MD Stevan Luna MD-[facility]~ Subjective Date/Time of Service: Date of Service: 09/20/2022 Time of Service: 11:52 Chief Complaint: Patient is here for a 2 month follow up, with labs for review. No concerns voiced at this time. HPI: 09/20/2022: Katy is here for follow-up and lab review after receiving 3 infusions of Oswcphv584 mg IV 07/25 through 08/04/2022. She does [...] her results. (2) Restless leg syndrome Her [facility] physician Dr. Apodaca reported that the [...] for coordination of care (as documented) and bpvz-hs-ttmw counseling of patient and/or family. Dictated By: Jana Ridley MD DD/ 1152 Signed By: <Electronically signed by MD Jana Ridley> 09/20/22 1645 [facility] Work Phone: 1(777) 722-925612-01-2022 Hospital Discharge instructions Patient Education 08/17/2022 10:54:19 [...] reconstructed. Follow these instructions at home: Take utvh-zpp-qndjahg and prescription medicines only as told by [...] 09/29/2016 Document Revised: 04/16/2019 Document Reviewed: 04/16/2019 [employer] Patient Education 2020 [employer]. Follow Up Care 08/09/2022 12:14:18 With:GIANNA KAPLAN PA-C, URL Address: [place] [address] When:[address] [facility] 11-01-2022 Consult note Author Kye [facility] July 18, 2022 4:40pmNote Date/TimeNov2021 4:30pm[facility] at [address] [address] Hem/Onc Consult Note - OP Signed Patient: Katy Banuelos MR#: [id number] : 1975 Acct:[id number] Age/Sex: 47 / F Type: REG RCR [...] son with established celiac diseaseaccording to her [facility] - Medical History Medical History: Medical [...] for coordination of care (as documented) and pzbo-jy-mzhg counseling of patient and/or family. Dictated By: Kye Apodaca MD DD/ 1627 Signed By: <Electronically signed by Kye Apodaca MD> 07/18/22 1640 [facility] Work Phone: 1(293) 977-400011-02-2018 Evaluation note* Diagnosis Onset Date Resolution Status [...] rightacuteJanuary 2024 8:56amRight wrist painacuteJanuary 2024 8:56am [facility] Work Phone: 1([phone]) [phone] Evaluation note* Diagnosis Onset Date Resolution Status Admit Date Acute maxillary sinusitis, unspecified July 19, 2018 acuteDecember 2023 9:48amBack pain, thoracicacuteDecember 2023 9:48am Insomnia, persistentacuteDecember 2023 9:48amTMJ (dislocation of temporomandibular joint)acuteDece2023 9:48amArthritis of carpometacarpal (CMC) joint of right thumbacuteJanuary 2024 8:56am Arthritis of right handacuteJanuary 2024 8:56amDe Quervain's tenosynovitis, rightacuteJanuary 2024 8:56amRight wrist painacuteJanuary 2024 8:56am [facility] Work Phone: 1(338) 384-831011-02-2018 Evaluation note* Diagnosis Onset Date Resolution Status [...] rightacuteFebruary 2024 9:18amRight wrist painacuteFebruary 2024 9:18am [facility] Work Phone: Evaluation + Plan note Future Appointments Appointment Date:11/20/2022 10:30:00 AM Scheduled Provider:Willem HARRIS MD Location:[facility] Appointment Type:URO Office Visit [facility] Evaluation + Plan note Future Appointments Appointment Date:05/02/2023 10:30:00 AM Scheduled Provider:GIANNA KAPLAN PA-C Location:[facility] Appointment Type:URO Procedure 30 min Appointment Date:05/09/2023 09:30:00 AM Scheduled Provider:GIANNA KAPLAN PA-C Location:[facility] Appointment Type:URO Procedure 30 min Appointment Date:05/16/2023 09:30:00 AM Scheduled Provider:GIANNA KAPLAN PA-C Location:[facility] Appointment Type:URO Procedure 30 min Appointment Date:05/30/2023 09:30:00 AM Scheduled Provider:GIANNA KAPLAN PA-C Location:[facility] [place] Appointment Type:URO Procedure 30 min Appointment Date:06/13/2023 09:30:00 AM Scheduled Provider:GIANNA KAPLAN PA-C Location:[facility] Appointment Type:URO Procedure 30 min [facility] evaluation + Plan note Future Appointments Appointment Date:05/09/2023 09:30:00 AM Scheduled Provider:GIANNA KAPLAN PA-C [facility] Type:[facility]O Procedure 30 min Appointment Date:05/16/2023 09:30:00 AM Scheduled Provider:GIANNA KAPLAN PA-C Location:[facility] Appointment Type:URO Procedure 30 min Appointment Date:05/30/2023 09:30:00 AM Scheduled Provider:GIANNA KAPLAN PA-C Location:[facility] Appointment Type:URO Procedure 30 min Appointment Date:06/13/2023 09:30:00 AM Scheduled Provider:GIANNA KAPLAN PA-C Location:[facility] Appointment Type:URO Procedure 30 min [facility] Evaluation + Plan note Future Appointments Appointment Date:05/16/2023 09:30:00 AM Scheduled Provider:GIANNA KAPLAN PA-C Location:[facility] Appointment Type:URO Procedure 30 min Appointment Date:05/30/2023 09:30:00 AM Scheduled Provider:GIANNA KAPLAN PA-C Location:[facility] Appointment Type:URO Procedure 30 min Appointment Date:06/13/2023 09:30:00 AM Scheduled Provider:GIANNA KAPLAN PA-C Location:[facility] Appointment Type:URO Procedure 30 min [facility] Evaluation + Plan note Future Appointments Appointment Date:03/14/2024 01:45:00 PM Scheduled Provider:Girma Delgado MD Location[facility] Appointment Type:Cardiology Follow Up (FT) Future Scheduled Tests Laboratory* Sedimentation Rate Automated 01/30/24 * Comprehensive Metabolic Panel 01/30/24 * C-Reactive Protein 01/30/24 * Lipid Panel 01/30/24 Radiology* US [facility]lex [facility] Future App[facility]ments Appointment Date:03/14/2024 01:45:00 PM Scheduled Provider:[facility]irma Delgado [facility] Follow Up (FT) [facility] noteNo assessment information available [facility] Work Phone: Evaluation note* Diagnosis Onset Date Resolution Status Adult celiac disease acuteIron deficiencyacuteIron deficiency anemiaacuteRestless leg syndromeacute [facility] Work Phone: evaluebmoh noteNo InformationNoscotland county memorial hospital [employer] Other Evalucxept note* Diagnosis Right upper quadrant pain- Primary Abdominal pain, right upper quadrant documented in this encounter [facility] HealthcareEvaluation note* Diagnosis Onset Date Resolution Status Injury of thumb, right acuteArthritis of carpometacarpal (CMC) joint of right thumbacuteArthritis of right handacuteDe Quervain's tenosynovitis, rightacuteRight hand painacuteRight wrist painacute [facility] Work Phone: Evaluation note* Diagnosis Onset Date Resolution Status Arthritis of carpometacarpal (CMC) joint of right thumb acuteArthritis of right handacuteDe Quervain's tenosynovitis, rightacuteRight wrist painacuteArthritis of carpometacarpal (CMC) joint of right thumbacute Arthritis of right handacuteDe Quervain's tenosynovitis, rightacuteRight wrist painacuteArthritis of carpometacarpal (CMC) joint of right thumbacuteArthritis of right handacuteDe Quervain's tenosynovitis, rightacuteRight wrist painacute [facility] Work Phone: Evaluation note* Diagnosis Onset Date Resolution Status Arthritis of carpometacarpal (CMC) joint of right thumb acuteArthritis of right handacuteDe Quervain's tenosynovitis, rightacuteRight wrist painacuteAbdominal painacuteInsomnia, persistentacuteWellness examination acuteArthritis of carpometacarpal (CMC) joint of right thumbacuteArthritis of right handacuteDe Quervain's tenosynovitis, rightacuteRight wrist painacute [facility] Work Phone: Evaluation note* Diagnosis Onset Date Resolution Status Abdominal pain acuteInsomnia, persistentacuteWellness examinationacuteArthritis of carpometacarpal (CMC) joint of right thumbacuteArthritis of right handacuteDe Quervain's tenosynovitis, rightacuteRight wrist painacuteArthritis of carpometacarpal (CMC) joint of right thumbacuteArthritis of right handacuteDe Quervain's tenosynovitis, rightacuteRight wrist painacute [facility] Work Phone: Evaluation note* Diagnosis Chronic obstructive pulmonary disease, unspecified COPD type ([facility])- Primary Cigarette smoker Tobacco use disorder documented [...] tenosynovitis, rightacuteRight wrist painacuteBack pain, thoracicacuteBloatingacuteRaynauds diseaseacute [facility] Work Phone: Evaluation note* Diagnosis Mood [...] without hemorrhageMedical HistoryAcute pain of right footSurgical [id number] HistoryHYSTEROSCOPY, ABLATIONHospitalization HistorySEE SURGICAL [employer] [facility] [employer] Other History general Narrative - Reported* Type Description Date Medical History TMJ arthralgia Medical HistoryInsomnia, persistentMedical HistoryAnxietyMedical HistoryAnemia Medical HistoryMuscle spasm of shoulder regionMedical HistoryAbnormal weight lossMedical HistoryElevated MCVMedical HistoryBack pain, thoracicMedical History Dysuria-frequency syndromeMedical HistoryVitamin D deficiencyMedical History External hemorrhoidMedical HistoryHTN (hypertension)Medical History Gastroesophageal reflux disease with esophagitis without hemorrhageMedical HistoryAcute pain of right footSurgical [id number] History HYSTEROSCOPY, ABLATIONHospitalization HistorySEE SURGICAL [employer] [facility] [employer] Other History general Narrative - Reported* Type Description Date Medical History TMJ arthralgia Medical HistoryInsomnia, persistentMedical HistoryAnxietyMedical HistoryAnemia Medical HistoryMuscle spasm of shoulder regionMedical HistoryAbnormal weight lossMedical HistoryElevated MCVMedical HistoryBack pain, thoracicMedical History Dysuria-frequency syndromeMedical HistoryVitamin D deficiencyMedical History External hemorrhoidMedical HistoryHTN (hypertension)Medical History Gastroesophageal reflux disease with esophagitis without hemorrhageMedical HistoryAcute pain of right footMedical HistoryCOPDSurgical [id number] Surgical HistoryHYSTEROSCOPY, ABLATIONHospitalization HistorySEE SURGICAL [employer] [facility] [employer] Other Hospital course Narrative No data available for this section [facility] Hospital Discharge instructions No data available for this section [facility] progress note No data available for this section [facility] Progress note Author Jana Ridley [facility] September 20, 2022 4:41pmNote Date/TimeJanuary 2022 11:53[facility] at [address] [address] Hem/Onc Follow Up Note - OP Signed Patient: Katy Banuelos MR#: [id number] : 1975 Acct:[id number] Age/Sex: 47 / F Type: REG RCR Copies to: MD Stevan Luna MD-[facility]~ Subjective Date/Time of Service: Date of Service: 09/20/2022 Time of Service: 11:52 Chief Complaint: Patient is here for a 2 month follow up, with labs for review. No concerns voiced at this time. HPI: 09/20/2022: Katy is here for follow-up and lab review after receiving 3 infusions of [id number] mg IV 07/25 through 08/04/2022. She does [...] her results. (2) Restless leg syndrome Her [facility] physician Dr. Apodaca reported that the [...] for coordination of care (as documented) and uvcs-or-okot counseling of patient and/or family. Dictated By: Jana Ridley MD DD/ 1152 Signed By: <Electronically signed by MD Jana Ridley> 09/20/22 1641 [facility] Work Phone: Progress note Author Jeanettealban Jimenes [facility] CenterNote Date/TimeMay 2024 9:45[facility] [place] [address] Cancer Center Note Signed Patient: Katy Banuelos MR#: [id number] : 1975 Acct:[id number] Age/Sex: 50 / F Type: DEP AMB [...] 1 week prior to 6month visit with S[facility] INSTALLER. CHEMO PLAN Treatment Plan Iron Sucrose (Venofer) [...] mg PO BID PRN 30 days vitamin W03-kahwo acid 0.5-1 mg 1 tab PO DAILY Gastrointestinal Is the patient taking opioids for pain control?: No Falls Fall Precaution Measures Taken: Patient in chair Nurse's Note: Patient is here today for a follow up visit and go over labs [facility] Medical History Medical History Raynauds disease [...] <Electronically signed by JIL Jimenes> 02/06/25 0948 [facility] Work Phone: Reason for referral (narrative)* Consultation (Routine) - Pending ReviewSpecialtyDiagnoses / ProceduresReferred By Contact Referred To ContactGastroenterology Diagnoses Right upper quadrant pain Procedures ND OFFICE/OUTPATIENT NEW HIGH MDM 60 MINUTES Dio Lara DO [address] [facility] [address] [place] [address] Alverto Salinas MD [address] [facility] [address] [place] [address] Referral IDStatusReasonStart DateExpiration DateVisits RequestedVisits [id number] Review Specialty Services Required / RINA SILVERIO [facility] HospitalRejulien for referral (narrative)No reason for referral information availableWestern Reserve Hospital Work Phone: Chief Complaint and Reason [...] Recheck Right Hand Pain CONSULT DR STEPHEN ÁLVARZE LOOSE BODY RT THUMB medication check up [...] 1 Adenomyosis, gallbla dder (K82.8) Referral Organization [facility] [employer] jenna Referring Provider First Name Fernanda Referring Provider Last Name Jamey Referring Provider Specialty [facility] [employer] Referred Organization [facility] Referred Provider Dio Lara Referred Address ,[place], [place],[address] Referred Provider Specialty Surgery Referral Priority Routine General Notes Teri Gray 04:49:56 PM >received today, multiple attachments made, notes locked, referral faxed Reason *06/07 TSH 0.35 , unexplained weight loss. Diagnosis 1 Low TSH level (R79.8 9) Referral Organization [facility] [employer] jenna Referring Provider First Name Fernanda Referring Provider Last Name Jamey Referring Provider Specialty [facility] [employer] Referred Organization [employer] Referred Provider Candelario Johansen Referred Address [address] [place] [address],[place], [place],[address] Referred Provider Specialty Internal Med icine Referral [...] 2023Team MemberRelationshipSpecialtyStart DateEnd Date Fernanda Concepcion MD [address] [place] [phone] PCP - GeneralFamily Ufrtpjay57/30/23 Team Status: Active Member Role Status Dates [...] Start: June 25, 2024 End: June 25Arie [facility] ProviderActiveStart: June 25, 2024 End: June 25, 2024Team MemberRelationshipSpecialtyStart DateEnd Date Fernanda Concepcion MD [address] [place] [facility] [place] [address] [facility] - [facility] Qheutnbn33/30/23Team MemberRelationshipSpecialtyStart Date End Date Fernanda Concepcion MD [address] [place] [facility] [place] [address] [facility]CP - [facility] Cejkqlre02/30/23Team MemberRelationshipSpecialtyStart Date End Date Fernanda Concepcion MD [address] [place] [facility] [place] [phone] PCP - Generalmi Ygacridn52/30/23Team MemberRelationshipSpecialtyStart Date End Date Fernanda Concepcion MD [address] [place] [facility] [place] [address] PCP - GeneralFami Eispndeu13/30/23 Team Status: Active Member Role Status Dates Fernanda Concepcion MD Primary Care Provide r, Attending Provider Active Start: July 10, 2024 Team Status: Inactive Member Role Status Dates Fernanda Concepcion MD Primary Care Provide r, Attending Provider Active Start: July 14, 2024 End: July 14, 2024Team MemberRelationshipSpecialtyStart DateEnd Date Fernanda Concepcion MD [address] [place] [facility] [place] [address] PCP - GeneralFamily Fozwgkyx99/30/23Team MemberRelationshipSpecialtyStart [place] [address] [place] [address] [place] [phone] PCP - [facility]07/16/23 Team Status: Active Member Role Status [...] , APRNAttending ProviderActiveStart: October 14, 2024 Stevan Alicia , [...] DateEnd Date Fernanda Concepcion MD [address] [place] [address] PCP - GeneralFamily Boelxlzb75/30/23Team MemberRelationshipSpecialtyStart Date End Date Fernanda Concepcion MD [address] [place] [address] [facility] - [facility] Zgywmqyg05/30/23Team MemberRelationshipSpecialtyStart Date End Date Fernanda Concepcion MD [address] [place] [address] PCP - [facility]07/16/23Team MemberRelationshipSpecialtyStart Date End Date Fernanda Concepcion MD [address] [place] [facility] [place] [phone] PCP - [facility]07/16/23 Team Status: Inactive Member Role Status Dates Fernanda Concepcion MD Primary Care Provider Active Start: January 27, 2025 End: January 27, 2025Mrata Hernandez DOAttending ProviderActiveStart: January 27, 2025 End: January 27, 2025 Team Status: Active Member Role Status Dates Fernanda Concepcion MD Primary Care Provider Active Start: January 27, 2025 Ute Griffin APRNAtmoises ProviderActiveStart: January 27, 2025 Stevan Alicia MDReferring ProviderActiveStart: January 27, 2025 Team MemberRelationshipSpecialtyStart DateEnd Date Fernanda Concepcion MD [address] [place] [facility] [place] [address] PCP - [facility]07/16/23Team MemberRelationshipSpecialtyStart Date End Date Fernanda Concepcion MD [address] [place] [facility] [place] [address] PCP - [facility]07/16/23 Team Status: Inactive Member Role Status Dates Fernanda Concepcion MD Primary Care Provider Active Start: February 06, 2025 End: February 06jimbo Jimenes SASH INSTALLERBarbaraCAttending ProviderActiveStart: February 06, 2025 End: February 06, [...] DateEnd Date Fernanda Concepcion MD [address] [place] [facility] [place] [address] PCP - GeneralFamily Ajdhapwe12/30/23Team MemberRelationshipSpecialtyStart Date End Date Fernanda Concepcion MD [address] [place] [facility] [place] [phone] PCP - Generalmi Zkkvcgte75/30/23Team MemberRelationshipSpecialtyStart Date End Date Fernanda Concepcion MD [address] [place] [facility] [place] [address] PCP - Generalmi Fasntosp95/30/23 Team Status: Active Member Role/Relationship Status Dates [...] section and content) DATE CREATED AUTHOR 06/19/2022 [facility] DATE CREATED AUTHOR AUTHOR'S ORGANIZ ATION 12/31/2022 [facility] DATE CREATED AUTHOR AUTHOR'S ORGANIZ ATION 11/30/2023 [facility] DATE CREATED AUTHOR AUTHOR'S ORGANIZ ATION 02/08/2024 [facility] DATE CREATED AUTHOR AUTHOR'S ORGANIZ ATION 02/09/2024 [facility] DATE CREATED AUTHOR AUTHOR'S ORGANIZ ATION 03/16/2024 [facility] DATE CREATED AUTHOR AUTHOR'S ORGANIZ ATION 02/12/2025 [facility] DATE CREATED AUTHOR AUTHOR'S ORGANIZ ATION 07/09/2025 [facility] EPIC REASON FOR VISIT (unrecogniz ed section and content) ReasonCommentsHIDA scan resultsReasonCommentsCOPD6 month follow upReasonComments Gynecologic ExamReasonCommentsTelevisitReasonCommentsRepeat papPatient present for repap. Patient denies any issues or complaints at this time.ReasonComments Temporomandibular Joint PainNeck PainReasonCommentsCOPD6 month follow up with chest x-rayReasonOnset DateCommentsMed Drjcyn2806/08/2025 FOR RECORDS PERTAINING TO PATIENTS WHO ARE [...] BE BASED ON THE PRIMARY CLINICAL RECORDS. [facility]. provides no warranty or guarantee of the accuracy or completeness of information in this document.
== END 2025-08-17 09:49 | disposition home or self-care (01) ==
LOC: MRI 09:48
PROVIDERS: PCP Family Medicine; Visit Provider Family Medicine
DX: M25.561 Pain in right knee (principal); M25.461 Effusion, right knee; M71.21 Synovial cyst of popliteal space [Baker], right knee
CPT/HCPCS: 73721